=== PATIENT | female | born 1945 | race Caucasian/White ===

== ENCOUNTER 2019-12-04 12:44 | Outpatient (CLI) | payer MEDICARE, OTHER, SELFPAY ==
--- NOTE | ~2019-12-04 | XR_ITS ---
EXAMINATION: XR abdomen/kub 1V INDICATION: Dysuria TECHNIQUE: Supine views of the abdomen were obtained on 2 radiographs. COMPARISON: 05/22/2019 FINDINGS: Stones measuring 1.9 cm and 0.9 cm are seen in the left kidney. There are numerous unchange d stones in a linear configuration in the right distal ureter. No new urinary tract calculi are ident ified. A large volume of colonic stool is present. Surgical clips in the right upper quadrant are lik fernanda from prior cholecystectomy. IMPRESSION: 1. Unchanged [place] of the right distal ureter. 2. Stable left nephrolithiasis. 3. Constipation. Reviewed, dictated and finalized at location A. 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
== END 2019-12-04 12:45 | disposition home or self-care (01) ==
LOC: ANHIMG 12:52
PROVIDERS: PCP Internal Medicine; Visit Provider Urology
DX: R30.0 Dysuria (principal); K59.00 Constipation, unspecified; N20.2 Calculus of kidney with calculus of ureter
CPT/HCPCS: 74018

== ENCOUNTER 2020-02-28 12:53 | Outpatient (CLI) | payer MEDICARE, OTHER, SELFPAY ==
--- NOTE | ~2020-02-28 | CT_ITS ---
EXAMINATION: CT abdomen pelvis wo con EXAM DATE: 02/28/2020 13:56 INDICATION: Chronic urinary tract infection. Microscopic hematuria. Breast cancer. TECHNIQUE: Spiral CT of the abdomen and pelvis was performed without contrast. Axial, coronal and sag ittal images were reviewed. The dose-length product (DLP) for this examination was 720.39 mGy-cm. T he exposure was tailored according to patient size (auto mA exposure control), and iterative reconstr uction (ASIR) was used as additional dose reduction technique. Comparison is made to prior examinatio n from 10/23/2014. FINDINGS: Vague region of heterogeneous density in the inferior aspect of the bladder, nondependent p osition given supine imaging on this study. This is possible bladder mass, transitional cell cancer m easuring 2.8 cm. Could also potentially be blood clot adherent to the inferior aspect of the bladder. There is left mid calyceal stone measuring 1.6 cm. Additional 6 mm left inferior calyceal stone and 1 0 mm superior calyceal stone. No right nephrolithiasis, but there are multiple contiguous stones in t he distal aspect of the right ureter, for about 4 cm in length, unchanged compared to prior study. Th e hydronephrosis has resolved. There is severe right renal atrophy and moderate left renal atrophy. T here are bilateral renal lesions, appearance consistent with cysts and hemorrhagic cysts. Please note not possible to exclude renal cell cancer in the setting without contrast. The uterus is unremarka ble. There is right adrenal low density mass measuring 4 cm not significant changed compared to prior stud y, likely adenoma. There is 1.5 cm left adrenal lesion likely adenoma. These appear either stable or very minimally increased in size compared to prior study. There are splenic and liver granulomas. Sca ttered low-density liver lesions which are probably cysts again noted. There are cholecystectomy cli ps. There is no retroperitoneal or pelvic lymphadenopathy. There is mild scattered arterioscleroti c disease. The appendix is normal. The stomach and small bowel are unremarkable. There is moderate amount of c olonic stool. There is mild scattered colonic diverticulosis. There is no adjacent inflammatory kent ge to suggest diverticulitis. No free intraperitoneal gas. There is mild cardiomegaly. There is sm all pericardial effusion. The lung bases are unremarkable. There are no significant osseous abnorma lities identified. IMPRESSION: 1. Heterogeneous density region inferior aspect of the bladder, possible transitional cell cancer ve rsus blood clot; consider cystoscopy. 2. Line of large stones distal aspect right ureter unchanged, with resolution of previously seen rig ht hydronephrosis, severe right renal atrophy. Kidney may be nonfunctioning. 3. Left nephrolithiasis. 4. Bilateral renal lesion statistically most likely cysts and hemorrhagic cysts. 5. Bilateral adrenal lesions most likely adenomas. Reviewed, dictated and finalized at location G. IMPRESSION: 1. Heterogeneous density region inferior aspect of the bladder, possible trans itional cell cancer versus blood clot; consider cystoscopy. 2. Line of large stones distal aspect right ureter unchanged, with resolution of previously seen right hydronephrosis, severe right renal atrophy. Kidney may be nonfunctioning. 3. Left nephrolithiasis. 4. Bilateral renal lesion statistically most likely cysts and hemorrhagic cyst s. 5. Bilateral adrenal lesions most likely adenomas.
[2020-02-28 13:36] LABS: Add Urine Microscopic? YES; Appearance Urine Turbid (Clear); Bacteria Urine 1+ /hpf; Bilirubin Urine Negative (Negative); Blood Urine 2+ (Negative); Color Urine Yellow (Yellow); Glucose Urine UA Negative (Negative); Ketones Urine Negative (Negative); Leukocyte Esterase Ur 3+ LEU/UL (NEGATIVE); Nitrate Urine Positive (Negative); Protein Urine 2+ mg/dL (Negative); RBC Urine >75 /hpf (0-2); Specific Grav Ur 1.014 (1.001-1.035); Urobilinogen Urine Negative mg/dL (<2.0); WBC Clumps Urine Present /HPF; WBC Urine >75 /hpf (0-3)
== END 2020-02-28 12:54 | disposition home or self-care (01) ==
PROVIDERS: PCP Internal Medicine; Visit Provider Internal Medicine
DX: N39.0 Urinary tract infection, site not specified (principal); R31.9 Hematuria, unspecified; R93.41 Abnormal radiologic findings on diagnostic imaging of renal pelvis, ureter, or bladder; N20.1 Calculus of ureter; N20.0 Calculus of kidney; N28.9 Disorder of kidney and ureter, unspecified; E27.9 Disorder of adrenal gland, unspecified
CPT/HCPCS: 74176; 81001

== ENCOUNTER 2020-06-12 19:08 | Inpatient (IN) | payer MEDICARE, OTHER, SELFPAY ==
--- NOTE | ~2020-06-12 | US_ITS ---
EXAMINATION: US renal BI EXAM DATE: 06/13/2020 08:15 INDICATION: Acute kidney injury. TECHNIQUE: Multiple grayscale and Doppler images of the kidneys were obtained (by a technologist who performed the scan) and subsequently reviewed. Comparison is made to prior examination from 4. FINDINGS: Right kidney: There is normal contour and echogenicity. There is mild renal cortical thinning. It mary ann sures 12.3 x 5.1 x 7.9 centimeters. There are multiple cysts measuring up to 2.2 cm. Mild hydronephr osis, significant interval improvement compared to 2013. Left kidney: There is normal contour and echogenicity. It measures 10.8 x 3.7 x 5.6 centimeters. The re is a 1.3 cm kidney stone identified. There are cysts, measuring up to 4 cm. No evidence of mild re nal cortical thinning. There is no hydronephrosis. Bladder unremarkable. Bilateral ureteral jets identified. IMPRESSION: 1. Mild right hydronephrosis. 2. Left nephrolithiasis. 3. Mild bilateral renal cortical thinning. 4. Renal cysts. Reviewed, dictated and finalized at location B.
--- NOTE | ~2020-06-12 | CT_ITS ---
EXAMINATION: CT brain wo con DATE: 06/12/2020 20:01 INDICATION: Altered mental status. TECHNIQUE: Computed tomography (CT) of the head was performed without intravenous contrast. Sagittal and coronal reconstructions were performed. The mA was adjusted according to patient size. Iterative reconstruction technique was employed. The dose-length product was 681.00 mGy-cm. COMPARISON: None FINDINGS: No acute intracranial hemorrhage, acute infarction or abnormal extra axial fluid collection. There is moderate scattered white matter hypoattenuation consistent with chronic small vessel ischemic diseas e. Symmetric prominence of the sulci consistent with mild age-appropriate diffuse cerebral volume los s. Ventricles are normal and symmetric. No mass/mass effect. Intracranial calcified cerebral atherosc lerosis is noted. The orbits, paranasal sinuses and mastoid air cells are normal. IMPRESSION: 1. Age-related changes including mild diffuse volume loss and moderate scattered white matter hypoatt enuation consistent with chronic small vessel ischemic disease. Reviewed, dictated and finalized at location A. IMPRESSION: 1. Age-related changes including mild diffuse volume loss and moderate scattere d white matter hypoattenuation consistent with chronic small vessel ischemic di sease.
--- NOTE | ~2020-06-12 | XR_ITS ---
EXAMINATION: XR chest 2V DATE: 06/12/2020 20:10 INDICATION: Shortness of breath, weakness and nausea TECHNIQUE: frontal view of the chest was obtained. COMPARISON: Chest radiograph dated 01/27/[address] dated 03/09/2020 FINDINGS: Mild linear atelectasis/scarring at the lateral left lung base. No other airspace opacities, pulmonar y edema, pleural effusion or pneumothorax. Cardiomegaly. Enlargement of the central pulmonary arterie s consistent with pulmonary arterial hypertension. 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 Calcified right hilar lymph nodes consistent with old granulomatous disease. Cholecystecto my clips in the right upper quadrant. 1.4 cm renal stone. Surgical clips at the lateral right breast. IMPRESSION: 1. Minimal left basilar atelectasis. 2. Cardiomegaly. 3. 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 4. Enlargement of the central pulmonary arteries consistent with pulmonary arterial hypertension. Reviewed, dictated and finalized at location A. IMPRESSION: 1. Minimal left basilar atelectasis. 2. Cardiomegaly. 3. 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 4. Enlargement of the central pulmonary arteries consistent with pulmonary radha rial hypertension.
[2020-06-12 19:10] VITALS: BP 106/56; PULSE 70; RESP 14; TEMP 36.7; O2SAT 97
[2020-06-12 19:29] VITALS: PULSE 68
--- NOTE | 2020-06-12 19:31 | ECG_ITS ---
Measurements Intervals [place] Rate: 69 P: -15 WI: 174 QRS: -38 QRSD: 111 T: 52 QT: 405 QTc: 434 Interpretive Statements SINUS RHYTHM ATRIAL COUPLET LEFT AXIS DEVIATION INTRAVENTRICULAR CONDUCTION DELAY VOLTAGE CRITERIA FOR LVH POOR R WAVE PROGRESSION, CONSIDER ANTERIOR INFARCT MINIMAL Q WAVES- HIGH LATERAL LEADS BASELINE ARTIFACT- V6 ABNORMAL ECG Electronically Signed On 06-12-2020 20:03:28 CDT by Don Flores D.O.
--- NOTE | 2020-06-12 19:38 | ED.GENADULT ---
HPI - General Adult General Chief complaint: Weakness Stated complaint: doesnt feel good. Time Seen by Provider: 06/12/20 19:27 Source: RN notes reviewed History of Present Illness HPI narrative: Patient presents emergency department from home for weakness. Patient states she has been feeling weak for the past 10 days.. She describes as being generally fatigued but denies any specific complaints. She denies any fevers or chills chest pain abdominal pain nausea vomiting diarrhea or any other symptoms. She did note mild shortness of breath earlier today but denies any shortness of breath at this time. States she had no previous work-up for these symptoms Related Data Home Medications Medication Instructions Recorded Confirmed apixaban 5 mg tablet 5 mg PO BID 10/15/19 fesoterodine 8 mg tablet,extended 8 mg PO DAILY 10/15/19 release 24 hr letrozole 2.5 mg tablet 2.5 mg PO DAILY 10/15/19 linagliptin 5 mg tablet 5 mg PO QAM 10/15/19 loratadine 10 mg capsule 10 mg PO DAILY 10/15/19 candesartan 16 mg PO DAILY 06/12/20 ibuprofen 200 mg PO Q6H PRN 06/12/20 rosuvastatin 20 mg PO DAILY 06/12/20 Allergies Allergy/AdvReac Type Severity Reaction Status Date / Time Sulfa (Sulfonamide Allergy Itching Verified 06/12/20 19:13 Antibiotics) Review of Systems Review of Systems: Narrative: Gen.: Denies fevers or chills Eyes: Denies eye pain or visual change ENT: Denies congestion Respiratory: Reports shortness of breath earlier, none currently, no cough CV: Denies chest pain or palpitations GI: Denies abdominal pain nausea, emesis or diarrhea denies burning, urgency, frequency or hematuria Musculoskeletal: Denies back pain or muscle pain Neuro: See HPI Skin: Denies rash Except as documented, all other systems reviewed and negative PMFSH Past Medical History Medical History A-fib Benign essential hypertension BMI 36.0-36.9,adult Castlemans disease Chronic kidney disease (CKD), stage II (mild) DM type 2 (diabetes mellitus, type 2) Encounter for routine adult health examination without abnormal findings Encounter for screening mammogram for malignant neoplasm of breast Hx of breast cancer Hyperlipidemia On longterm drug therapy Overactive bladder Family History Family History (Updated 03/28/19 @ 15:07 by DOCTOR UNKNOWN) Sibling Cerebrovascular accident Family history of diabetes mellitus in first degree relative Father Family history of diabetes mellitus in first degree relative Diabetes mellitus Mother Family history of malignant neoplasm of cervix Family history of malignant neoplasm of ovary Grandparent Family history of malignant neoplasm of breast Family history of malignant neoplasm of breast in first degree relative Social History Social History Smoking status: Never smoker Second hand tobacco smoke exposure: No Alcohol intake: never Exam Narrative: Exam Narrative: APPEARANCE: No acute distress, nontoxic, resting in bed EYES: EOMI HEENT: Normocephalic, atraumatic, OMM RESPIRATORY: No respiratory distress Clear to auscultation bilaterally with no rhonchi wheezing or rales. CARDIOVASCULAR: Regular rate and rhythm without murmurs rubs or gallops. ABDOMINAL: Soft, nontender, nondistended, no rebound or guarding MUSCULOSKELETAl: Moves all extremities. No clubbing, cyanosis or edema. NEURO: Awake and alertx 3. Following commands, speech normal, no focal deficits SKIN:: Warm, dry. No rashes lesions or abrasions PSYCHIATRIC: Normal affect/mood, Course Course Emergency Course: Discussed with Dr. Maloney presentation work-up. States patient's creatinine is normally in the low twos. She has seen Dr. Schwarz for in the past Discussed with Dr. Flores presentation work-up. Agrees with admission at this time Discussed with patient and family results of workup and diagnosis. Dis
[2020-06-12 19:40] LABS: Basophils Percent Auto 0.4 % (0.2-1.2); Eosinophils Percent Auto 0.3 % (0-4.4); Hemoglobin 9.6 g/dL (12.0-15.0); Immature Granulocyte Absolute 0.05 K/mm3 (0.00-0.031); Immature Granulocyte Percent A 0.5 % (0-0.5); Lymphocytes Absolute Auto 2.09 K/mm3 (0.9-3.2); Lymphocytes Percent Auto 20.5 % (18.3-44.2); Mean Corpuscular Volume 90.6 fl (80-100); Mean Platelet Volume 11.6 fl (7.4-10.4); Monocytes Absolute Auto 0.8 K/mm3 (0.1-0.6); Monocytes Percent Auto 7.4 % (2.6-8.5); Neutrophils Absolute Auto 7.2 K/mm3 (1.3-6.7); Neutrophils Percent Auto 70.9 % (45.5-73.1); Platelet Count Result 262 k/mm3 (150-375); Red Blood Count 3.31 M/mm3 (4.2-5.4); White Blood Count 10.2 K/mm3 (4.5-10.0)
[2020-06-12] MEDS: SODIUM CHLORIDE 0.9% IV 1,000 ML 999 ML IV CONT (19:42)
[2020-06-12 19:52] LABS: Alanine Aminotransferase 10 U/L (4-35); Albumin Level 3.9 g/dL (3.5-5.1); Alkaline Phosphatase 61 U/L (38-126); Anion Gap 10 mmol/L (8-16); Aspartate Amino Transferase 17 U/L (14-36); Bilirubin,Total 0.7 mg/dL (0.2-1.3); Blood Urea Nitrogen 59 mg/dL (7-17); Calcium 10.7 mg/dL (8.4-10.2); Carbon Dioxide 16 mmol/L (22-30); Chloride 111 mmol/L (98-107); Estimated CRCL calculation 12 ml/min; Estimated Glomerular Filt Rate 9; Glucose 118 mg/dL (65-105); Potassium 4.2 mmol/L (3.4-5.0); Sodium 137 mmol/L (137-145)
[2020-06-12 21:23] LABS: Add Urine Microscopic? YES; Appearance Urine Turbid (Clear); Bacteria Urine Trace /hpf; Bilirubin Urine Negative (Negative); Blood Urine 2+ (Negative); Color Urine Yellow (Yellow); Glucose Urine UA Negative (Negative); Ketones Urine Negative (Negative); Leukocyte Esterase Ur 3+ LEU/UL (Negative); Nitrate Urine Negative (Negative); Protein Urine 2+ mg/dL (Negative); RBC Urine >75 /hpf (0-2); Specific Grav Ur 1.015 (1.001-1.035); Squamous Epithelial Cell Urine Many /hpf (Few); Urobilinogen Urine Negative mg/dL (<2.0); WBC Clumps Urine Present /HPF; WBC Urine >75 /hpf
--- NOTE | 2020-06-12 23:51 | PC.NURSE ---
This patient, Maria R Barrientos, was admitted to 2 Medical Room 250-01. Patient/family oriented to hospital policies and general routines including ID bracelet, bed and alarms, visiting hours, pain management, procedures, bathroom and other care routines, personal items, smoking policy, room service/diet, and visiting hours. Valuables list has been completed. Information on how to activate the Rapid Response Team has been discussed. Patient/Family are encouraged to report perceived risks to care and to ask questions if they do not understand what they are told or what they should do.
[2020-06-13] VITALS: BP 124/61; PULSE 64; RESP 12; TEMP 36.9; O2SAT 98
--- NOTE | 2020-06-13 | ECHO_ITS ---
Patient Info Name: Maria R Barrientos Age: 74 years : 1945 Gender: Female Ht: 67 in Wt: 220 lbs BSA: 2.21 m2 HR: 63 bpm BP: 122 / 56 mmHg Technical Quality: Good Exam Date: 06/13/2020 1:46 PM Exam Location: [facility] Pul[facility] Patient Status: Inpatient Admit Date: 06/13/2020 Staff Ordering Physician: Aruna Mar PA-C Clinical Advisor: Grace Calero RDCS Attending Provider: Aruna Mar PA-C Referring Physician: Isabela CARSON; Exam Type: CA echo doppler color flow Study Info Indications R01.1 - Cardiac murmur, unspecified Complete two-dimensional, color flow and Doppler transthoracic echocardiogram is performed. Summary 1. Left ventricular chamber dimension is normal. 2. Left ventricular systolic function is normal, estimated at 65-70%. 3. Ventricular septum is sigmoid shaped. Mild resting LVOT obstruction wit peak gradient 12 mmH and mean gradient 6 mmHg. 4. The left ventricular diastolic function is grade I diastolic dysfunction. 5. E/e' 9 is minimally elevated. 6. Left atrial chamber dimension is moderately enlarged. 7. There is moderate aortic valve sclerosis. 8. There is trace tricuspid valve regurgitation. 9. No pulmonary hypertension, estimated pulmonary arterial systolic pressure is 32 mmHg. Left Ventricle Ventricular septum is sigmoid shaped. Mild resting LVOT obstruction wit peak gradient 12 mmH and mean gradient 6 mmHg. E/e' 9 is minimally elevated. Left ventricular chamber dimension is normal. Left ventricular systolic function is normal, estimated at 65-70%. The left ventricular diastolic function is grade I diastolic dysfunction. Right Ventricle Right ventricular chamber dimension is normal. Right ventricular systolic function is normal. Left Atria Left atrial chamber dimension is moderately enlarged. Right Atria Right atrial chamber dimension is normal. Aortic Valve The aortic valve is trileaflet. There is moderate aortic valve sclerosis. There is no aortic valve stenosis. There is no aortic valve regurgitation. Pulmonic Valve There is no pulmonic regurgitation. Mitral Valve There is no mitral valve stenosis. There is no mitral valve regurgitation. Tricuspid Valve There is trace tricuspid valve regurgitation. No pulmonary hypertension, estimated pulmonary arterial systolic pressure is 32 mmHg. Pericardium/Pleural There is no pericardial effusion. Inferior Vena Cava Normal inferior vena cava with >50% collapse upon inspiration consistent with normal right atrial pressure, 5 mmHg. Aorta The aortic root size at the sinus of Valsalva is normal. Left Ventricular Outflow Tract Name Value Normal LVOT 2D LVOT Diameter 2.0 cm LVOT Doppler LVOT Peak Gradient 13 mmHg LVOT Mean Gradient 7 mmHg LVOT VTI 34 cm LVOT VTI/AV VTI Ratio 1.1 LVOT Stroke Volume 102 ml LVOT CO 6.9 l/min LVOT CI 3.1 l/min/m2 Pulmonic Valve
[2020-06-13 00:16] VITALS: BMI 34.5
[2020-06-13] MEDS: SODIUM CHLORIDE 0.9% IV 1,000 ML 80 ML IV CONT (00:29)
[2020-06-13 01:35] LABS: Creatinine Urine 88.1 mg/dL
[2020-06-13 01:40] LABS: Sodium Urine Random 62 meq/L
[2020-06-13 01:45] LABS: Total Protein Urine Random 362 mg/dL
[2020-06-13 03:07] LABS: Glucose Point of Care 114 (65-105)
[2020-06-13 05:10] VITALS: BP 122/56; PULSE 63; RESP 12; TEMP 36.9; O2SAT 97
[2020-06-13 05:12] LABS: Basophils Percent Auto 0.2 % (0.2-1.2); Eosinophils Percent Auto 0.4 % (0-4.4); Hemoglobin 8.9 g/dL (12.0-15.0); Immature Granulocyte Absolute 0.06 K/mm3 (0.00-0.031); Immature Granulocyte Percent A 0.6 % (0-0.5); Lymphocytes Absolute Auto 2.35 K/mm3 (0.9-3.2); Lymphocytes Percent Auto 23.3 % (18.3-44.2); Mean Corpuscular HGB Conc 31.8 g/dl (32-36); Mean Corpuscular Hemoglobin 29.2 pg (26-34); Mean Corpuscular Volume 91.8 fl (80-100); Mean Platelet Volume 11.6 fl (7.4-10.4); Monocytes Absolute Auto 0.7 K/mm3 (0.1-0.6); Neutrophils Absolute Auto 6.9 K/mm3 (1.3-6.7); Neutrophils Percent Auto 68.5 % (45.5-73.1); Platelet Count Result 234 k/mm3 (150-375); Red Blood Count 3.05 M/mm3 (4.2-5.4); White Blood Count 10.1 K/mm3 (4.5-10.0)
[2020-06-13 05:28] LABS: Anion Gap 8 mmol/L (8-16); Blood Urea Nitrogen 55 mg/dL (7-17); Calcium 10.2 mg/dL (8.4-10.2); Carbon Dioxide 16 mmol/L (22-30); Chloride 113 mmol/L (98-107); Estimated CRCL calculation 13 ml/min; Estimated Glomerular Filt Rate 10; Glucose 108 mg/dL (65-105); Potassium 3.9 mmol/L (3.4-5.0); Sodium 137 mmol/L (137-145)
--- NOTE | 2020-06-13 06:25 | PM.IMHP ---
H&P: HPI History of Present Illness Date/Time: 06/13/20 06:25 Chief complaint: Not feeling right Narrative: Maria R Barrientos is a 74 year old female with a past medical history of incomplete bladder emptying, frequent urinary tract infections, and chronic kidney disease who presented to the ER after not feeling right for about a week. The patient reported that she just felt sick. She had had some decreased appetite and felt fatigued. She denies any shortness of breath or cough. She does have chronic urinary frequency but denies any increased urgency. She has frequent symptoms of incomplete bladder emptying. She has not noticed any dysuria. She has noticed that her urine has appeared a little bit darker when she wipes after voiding. She denies any foul smell to her urine. She has not noticed any hematuria but has had microscopic hematuria on labs in the past. She thinks that she has been drinking the same amount of fluids. She is uncertain if she is having any significant change in the amount of her urine output. Review of Systems Review of Systems: Narrative: 12 systems were reviewed with pertinent positives and negatives per HPI. Except as documented in the HPI, all other systems were reviewed and are negative. [facility] Past Medical History Medical History (Updated 06/13/20 @ 08:13 by Eduarda Flores DO) A-fib Benign essential hypertension BMI 36.0-36.9,adult Cancer of right breast status post radiation and chemotherapy Castlemans disease Chronic kidney disease, stage 3 DM type 2 (diabetes mellitus, type 2) Encounter for screening mammogram for malignant neoplasm of breast Hyperlipidemia Kidney stones of the left kidney with multiple lithotripsies Overactive bladder Thyroid nodule Surgical History Surgical History (Updated 06/13/20 @ 08:03 by Eduarda Flores DO) Status post cataract extraction and insertion of intraocular lens of right eye Status post right breast lumpectomy Family History Family History Sibling Cerebrovascular accident Diabetes mellitus Father Diabetes mellitus Mother Cervical cancer Social History Social History (Updated 06/13/20 @ 08:07 by Eduarda Flores DO) Social History: the patient lives with her 45-year-old daughter. She is . She is a lifelong nonsmoker and does not drink alcohol or use illicit substances. She is retired from the [employer]. Primary care physician: Dr. Carl Maloney code status: Full code Smoking status: Never smoker Second hand tobacco smoke exposure: No Alcohol intake: never Substance use: never Substance use type: does not use Gender identity (if verbalized by the patient): Female Spiritual care concerns: No Meds Home Medications and Allergies Home Medications Medication Instructions Recorded Confirmed Type apixaban 5 mg tablet 5 mg PO BID 10/15/19 06/13/20 History fesoterodine 8 mg tablet,extended 8 mg PO DAILY 10/15/19 06/13/20 History release 24 hr letrozole 2.5 mg tablet 2.5 mg PO DAILY 10/15/19 06/13/20 History linagliptin 5 mg tablet 5 mg PO QAM 10/15/19 06/13/20 History loratadine 10 mg capsule 10 mg PO DAILY 10/15/19 06/13/20 History glimepiride 2 mg tablet 2 mg PO QAM #90 tablet 02/20/20 06/13/20 Rx diltiazem HCl 420 mg capsule,24 420 mg PO DAILY #90 cap 04/03/20 06/13/20 Rx hr,extended release hydralazine 100 mg tablet 100 mg PO TID #270 tablet 04/08/20 06/13/20 Rx candesartan 16 mg PO DAILY 06/12/20 06/13/20 History ibuprofen 200 mg PO Q6H PRN 06/12/20 06/13/20 History rosuvastatin 20 mg PO DAILY 06/12/20 06/13/20 History trimethoprim 100 mg PO DAILY 06/13/20 06/13/20 History Allergies Allergy/AdvReac Type Severity Reaction Status Date / Time Sulfa (Sulfonamide Allergy Itching Verified 06/12/20 19:13 Antibiotics) Vital Signs Vital Signs - 24 hr 06/12/20 19:10 06/12/20 19:29 06/13/20 00:0
[2020-06-13 08:50] LABS: Glucose Point of Care 101 (65-105)
[2020-06-13] MEDS: TRIMETHOPRIM 100 MG TABLET PO (09:12)
[2020-06-13] MEDS: GLIMEPIRIDE 2 MG TABLET PO (09:12)
[2020-06-13] MEDS: APIXABAN 2.5 MG TABLET PO ×2 (09:12→20:56)
[2020-06-13] MEDS: LORATADINE 10 MG TABLET PO (09:12)
[2020-06-13] MEDS: ROSUVASTATIN 10 MG TABLET 20 MG PO (09:13)
[2020-06-13] MEDS: LETROZOLE (*CHEMO) 2.5 MG TABLET PO (09:13)
[2020-06-13] MEDS: hydrALAZINE HCL 50 MG TABLET 100 MG PO ×3 (09:13→20:56)
--- NOTE | 2020-06-13 09:35 | PC.NURSE ---
Notified patient our pharmacy does not carry her home medications Toviaz and Tradjenta. Per patient her daughter should be able to bring the medication from home to hospital for use. Will clarify orders with PA and coordinate home medications with patient and daughter.
[2020-06-13] MEDS: LACTATED RINGERS 1,000 ML 80 ML IV CONT ×2 (10:13→20:56)
--- NOTE | 2020-06-13 10:58 | PM.IMPN ---
Progress Note: A&P Assessment and Plan (1) Acute on chronic renal failure: Code(s): N17.9 - Acute kidney failure, unspecified; N18.9 - Chronic kidney disease, unspecified Status: Acute Assessment and Plan: -----IV hydration so far but still 4.4. UA suspicious for UTI and the patient also appeared to be dehydrated on admission. Nephrology has been consulted. She does have chronic kidney disease. Ultrasound of the kidney shows a mild right hydronephrosis but no obstruction. Await for Nephrology's additional recommendations. Monitor for signs of fluid overload (2) Acute UTI: Code(s): N39.0 - Urinary tract infection, site not specified Status: Acute Assessment and Plan: -----UA suspicious for UTI. Continue ceftriaxone and adjust according to culture and sensitivities (3) Chronic anticoagulation: Code(s): Z79.01 - FDC (current) use of anticoagulants Status: Acute Assessment and Plan: -----continue Eliquis 2.5 mg b.i.d. due to her renal dysfunction. 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 Will stop oral glimepiride due to kidney dysfunction and decreased diet. Last A1c 8.5 back in January (5) Heart murmur: Code(s): R01.1 - Cardiac murmur, unspecified Status: Acute Assessment and Plan: -----patient has significant heart murmur on exam. This was noted on her PCPs documentation earlier in the year. I cannot find any echo other than 1 in 2016 which did show some mild to moderate disease at that point. I have spoken with her primary care physician and we are going to obtain echo while she is here. (6) Aortic arch aneurysm: Code(s): I71.2 - Thoracic aortic aneurysm, without rupture Status: Acute Assessment and Plan: -----seen on chest x-ray. I spoke with Dr. Maloney about it who will monitor her. Will watch her blood pressure closely. Time Spent With Patient Time with patient: 25 - 35 minutes Subjective Date/time seen: 06/13/20 10:58 Interval history: Pt is a 74-year-old female here for UTI/RICKIE who was seen today and states she is feeling much better. She is urinating more often but thinks it is from the IV fluids. She denies dysuria, shortness of breath, fevers, chills, nausea, vomiting, cough or leg swelling. She says she has chronic kidney disease and sees Dr. Schwarz. She also mentions that she has never been told she has a murmur although it is documented by her primary care doctor. Review of Systems Review of Systems: All systems reviewed & are unremarkable except as noted in HPI and below Exam Narrative: Exam Narrative: General: Well developed well nourished patient resting comfortably in bed in NAD HEENT: normocephalic Neck: supple Neuro: Alert and oriented x4 CV: Irregularly irregular with a 3/6 systolic murmur heard best at the apex but also heard in all areas Resp:CTA Abd: Soft, non distended. No pain to palpation. Positive bowel sounds Extremities: No swelling, erythema, or pain to palpation. Objective Data Vital Signs Vital Signs: Vital Signs - 24 hr 06/12/20 19:10 06/12/20 19:29 06/13/20 00:00 Temperature 98.1 F 98.4 F Pulse Rate 70 68 64 Respiratory Rate 14 12 Blood Pressure 106/56 L 124/61 Pulse Oximetry 97 98 06/13/20 05:10 Temperature 98.4 F Pulse Rate 63 Respiratory Rate 12 Blood Pressure 122/56 L Pulse Oximetry 97 Intake/Output Intake/Output: Intake & Output 06/10/20 06/11/20 06/12/20 06/13/20 23:59 23:59 23:59 23:59 Intake Total 1050 758 Outp
[2020-06-13 12:57] LABS: Glucose Point of Care 134 (65-105)
[2020-06-13 14:00] VITALS: BP 113/49; PULSE 69; RESP 18; TEMP 36.5; O2SAT 95
--- NOTE | 2020-06-13 17:18 | PM.CNNEP ---
Assessment and Plan Assessment and plan (1) RICKIE (acute kidney injury): Code(s): N17.9 - Acute kidney failure, unspecified Status: Acute (2) Chronic kidney disease, stage IV (severe): Code(s): N18.4 - Chronic kidney disease, stage 4 (severe) Status: Chronic (3) Acute UTI: Code(s): N39.0 - Urinary tract infection, site not specified Status: Acute (4) Benign essential hypertension: Code(s): I10 - Essential (primary) hypertension Status: Chronic (5) Heart murmur: Code(s): R01.1 - Cardiac murmur, unspecified Status: Acute (6) DM type 2 (diabetes mellitus, type 2): Qualifiers: Diabetes mellitus complication status: without complication 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 Additional Plan Maria R has suffered an acute insult on top of her baseline kidney disease. The exact etiology of what caused this insult is not entirely clear. She states that she thinks she drinks enough water but it is possible that she may have a component of volume depletion playing a role. She was treated with antibiotics and I suppose there is a possibility she could have had some type of acute interstitial nephritis or reaction to the antibiotics but I am not entirely clear what antibiotics she was given. The fact that she had a urinary tract infection in her bladder that required antibiotics could also be potentially responsible for this rise in her creatinine as well as the fact that it would seem that these antibiotics did not fully treat with ever infection she had based on her admission urinalysis. For further evaluation of her decline in her kidney function, I have ordered renal electrolytes, urine eosinophils and a renal ultrasound which the results of which do not show any significant pathology although she did have some mild hydronephrosis noted which is actually an improvement in comparison to her previous imaging. She is empirically on IV ceftriaxone for the suspected urinary tract infection which seems reasonable and I would continue gentle IV fluid hydration within limits of her respiratory status to see if her kidney function improves back to baseline. It should be noted on admission her blood pressure was running little bit lower than what it normally does so perhaps there is a component of relative hypotension playing a role and she was also on an ARB which may have also potentiated /worsened her creatinine as well. I will continue follow patient with you while she remains hospitalized and make further recommendations during her hospital course. Thank you for allowing me to participate in the care this patient. History of Present Illness Reason for Consult Consult date: 06/13/20 Reason for consult: acute renal failure (on chronic kidney disease ) Chief Complaint Chief complaint: Not feeling right History of Present Illness Narrative: The patient is a 74 year old female with a past medical history as outlined below who presented to the ER after not feeling right for about a week. It is hard for to specify what exactly she mean and states that she just felt sick. She reports some decreased appetite and felt fatigued. She does have chronic urinary frequency but denies any increased urgency. She has frequent symptoms of incomplete bladder emptying. She reports no hematuria, dysuria, abdominal pain, nausea, or vomiting. She has noticed that her urine has appeared a little bit darker when she wipes after voiding. She denies any foul smell to her urine. No reported fever or chills either. Given the persistence of just not feeling well, she came to the ER for further evaluation. Workup and evaluation emergency room demonstrated th
[2020-06-13] MEDS: SODIUM BICARBONATE TAB 650 MG TABLET PO (17:28)
[2020-06-13 18:13] LABS: Glucose Point of Care 135 (65-105)
[2020-06-13 20:00] VITALS: BP 122/59; PULSE 63; RESP 20; TEMP 37.2; O2SAT 95
[2020-06-13 21:11] LABS: Glucose Point of Care 111 (65-105)
[2020-06-14] VITALS: BP 122/56; PULSE 62; RESP 20; TEMP 36.9; O2SAT 95
[2020-06-14 04:00] VITALS: BP 146/58; PULSE 72; RESP 22; TEMP 36.4; O2SAT 97
[2020-06-14] MEDS: hydrALAZINE HCL 50 MG TABLET 100 MG PO ×3 (05:11→20:33)
[2020-06-14] MEDS: ONDANSETRON INJ 4 MG/2 ML VIAL IV PUSH ×2 (05:12→20:33)
[2020-06-14 05:28] LABS: Hematocrit 25.9 % (37.0-47.0); Mean Corpuscular HGB Conc 30.9 g/dl (32-36); Mean Corpuscular Hemoglobin 28.7 pg (26-34); Mean Corpuscular Volume 92.8 fl (80-100); Platelet Count Result 218 k/mm3 (150-375); Red Blood Count 2.79 M/mm3 (4.2-5.4); Red Cell Distribution Width 14.1 % (11.5-14.5); White Blood Count 7.3 K/mm3 (4.5-10.0)
[2020-06-14 05:44] LABS: Albumin Level 3.3 g/dL (3.5-5.1); Anion Gap 6 mmol/L (8-16); Blood Urea Nitrogen 48 mg/dL (7-17); Carbon Dioxide 19 mmol/L (22-30); Chloride 114 mmol/L (98-107); Estimated CRCL calculation 14 ml/min; Estimated Glomerular Filt Rate 11; Glucose 115 mg/dL (65-105); Phosphorus 3.8 mg/dL (2.5-4.5); Potassium 4.2 mmol/L (3.4-5.0); Sodium 139 mmol/L (137-145)
[2020-06-14] MEDS: APIXABAN 2.5 MG TABLET PO ×2 (08:28→20:33)
[2020-06-14] MEDS: LORATADINE 10 MG TABLET PO (08:29)
[2020-06-14] MEDS: ROSUVASTATIN 10 MG TABLET 20 MG PO (08:29)
[2020-06-14] MEDS: LETROZOLE (*CHEMO) 2.5 MG TABLET PO (08:31)
[2020-06-14] MEDS: TRIMETHOPRIM 100 MG TABLET PO (08:31)
[2020-06-14] MEDS: SODIUM BICARBONATE TAB 650 MG TABLET PO ×2 (08:31→17:04)
--- NOTE | 2020-06-14 09:22 | PM.IMPN ---
Progress Note: A&P Assessment and Plan (1) Acute on chronic renal failure: Code(s): N17.9 - Acute kidney failure, unspecified; N18.9 - Chronic kidney disease, unspecified Status: Acute Assessment and Plan: -----improving slowly now 4.0. UA is only growing [id number] Serratia Marcescens but will continue abx. Nephrology has been consulted. She does have chronic kidney disease. 2+ protein in her urine. Ultrasound of the kidney shows a mild right hydronephrosis but no obstruction. Await for Nephrology's additional recommendations. Monitor for signs of fluid overload (2) Acute UTI: Code(s): N39.0 - Urinary tract infection, site not specified Status: Acute Assessment and Plan: -----UA growing 10,000-50,000 Serratia marcescens. Because of her hydronephrosis and RICKIE, continue ceftriaxone and adjust according to the sensitivities (3) Chronic anticoagulation: Code(s): Z79.01 - senior care (current) use of anticoagulants Status: Acute Assessment and Plan: -----continue Eliquis 2.5 mg b.i.d. due to her renal dysfunction. 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 Will stop oral glimepiride due to kidney dysfunction and decreased diet. Last A1c 8.5 back in January (5) Heart murmur: Code(s): R01.1 - Cardiac murmur, unspecified Status: Acute Assessment and Plan: -----patient has significant heart murmur on exam but echo does not show any significant abnormalities. (6) Aortic arch aneurysm: Code(s): I71.2 - Thoracic aortic aneurysm, without rupture Status: Acute Assessment and Plan: -----seen on chest x-ray and I discussed this with the patient. I spoke with Dr. Maloney about it who will monitor her. Will watch her blood pressure closely. Subjective Date/time seen: 06/14/20 09:22 Interval history: Pt is a 74-year-old female here for UTI/RICKIE who was seen today. Patient states she had nausea last night but is now feeling better. She does not have an appetite this morning and did not eat breakfast. She has not had a bowel movement since she has been here. She denies dysuria, shortness of breath, fevers, chills, nausea, vomiting, cough or leg swelling. We discussed her aneurysm and the appropriate follow-up Exam Narrative: Exam Narrative: General: Well developed well nourished patient resting comfortably in bed in NAD HEENT: normocephalic Neck: supple Neuro: Alert and oriented x4 CV: Irregularly irregular with a 3/6 systolic murmur heard best at the apex but also heard in all areas Resp:CTA Abd: Soft, non distended. No pain to palpation. Positive bowel sounds Extremities: No swelling, erythema, or pain to palpation. Objective Data Vital Signs Vital Signs: Vital Signs - 24 hr 06/13/20 14:00 06/13/20 20:00 06/14/20 00:00 Temperature 97.7 F 99 F 98.4 F Pulse Rate 69 63 62 Respiratory Rate 18 20 20 Blood Pressure 113/49 L 122/59 L 122/56 L Pulse Oximetry 95 95 95 06/14/20 04:00 Temperature 97.6 F Pulse Rate 72 Respiratory Rate 22 H Blood Pressure 146/58 H Pulse Oximetry 97 Intake/Output Intake/Output: Intake & Output 06/11/20 06/12/20 06/13/20 06/14/20 23:59 23:59 23:59 23:59 Intake Total 1050 2878 Output Total 550 400 Balance 1050 2328 -400 Meds/Results Medications: Active Medications Generic Name Dose Route Start Last Admin Trade Name Freq PRN Reason Stop Dose Admin Apixaban 2.5 mg 06/13/20 09:00 06/14/20 08:28 Eliquis PO 2.5 mg Q12HR BIANKA Administration Dextrose
[2020-06-14 09:27] LABS: Glucose Point of Care 128 (65-105)
[2020-06-14] MEDS: polyethylene glycoL 3350 17 GM POWD.PACK PO (10:07)
--- NOTE | 2020-06-14 11:26 | P.PNNP_ITS ---
Progress Note: A&P Assessment and Plan (1) RICKIE (acute kidney injury): Code(s): N17.9 - Acute kidney failure, unspecified Status: Acute Assessment and Plan: * etiology? * due to UTI/infection versus antibiotics verus combo of both versus something else? * some improvement since admission * making urine * no critical electrolytes * renal ultrasound reviewed - mild hydro noted but unclear if acute given improvement in renal function with current therapy * continue supportive therapy for now (2) Chronic kidney disease, stage IV (severe): Code(s): N18.4 - Chronic kidney disease, stage 4 (severe) Status: Chronic Assessment and Plan: * baseline creatinine ~ 1.8 - 2.3mg/dl in the last few years * due to HTN, DM, kidney stones + bladder issues, and age (3) Acute UTI: Code(s): N39.0 - Urinary tract infection, site not specified Status: Acute Assessment and Plan: * urine culture noted * on antibiotics (4) Benign essential hypertension: Code(s): I10 - Essential (primary) hypertension Status: Chronic Assessment and Plan: * reasonable control at this time * would avoid overcontrol in the setting of #1 * follow hemodynamics (5) Heart murmur: Code(s): R01.1 - Cardiac murmur, unspecified Status: Acute Assessment and Plan: * Echo for further evaluation * follow-up on results (6) DM type 2 (diabetes mellitus, type 2): Qualifiers: Diabetes mellitus complication status: without complication 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 Subjective Date/time seen: 06/14/20 11:26 States she just feels blah -- howevere, in comparison to admission, she admits she feels a bit better; daughter at bedside and we discussed the situation. Exam Narrative: Exam Narrative: General: WD/WN female in NAD Heart: normal S1 and S2; no rub Lungs: clear to auscultation Abdomen: soft, nontender, nondistended, positive bowel sounds Extremities: no cyanosis or clubbing; no edema Skin: warm and dry Objective Data Vital Signs Vital Signs: Vital Signs Temp Pulse Resp BP Pulse Ox 06/14/20 04:00 36.4 C 72 22 H 146/58 H 97 06/14/20 00:00 36.9 C 62 20 122/56 L 95 06/13/20 20:00 37.2 C 63 20 122/59 L 95 06/13/20 14:00 36.5 C 69 18 113/49 L 95 Intake/Output Intake/Output: Intake & Output 06/11/20 06/12/20 06/13/20 06/14/20 23:59 23:59 23:59 23:59 Intake Total 1050 2878 Output Total 550 400 Balance 1050 2328 -400 Meds/Results Medications: Active Medications Generic Name Dose Route Start Last Admin Trade Name Freq PRN Reason Stop Dose Admin Apixaban 2.5 mg 06/13/20 09:00 06/14/20 08:28 Eliquis PO 2.5 mg Q12HR BIANKA Administration Dextrose 12.5 gm 06/13/20 08:00 Dextrose 50% Syringe IV PUSH PRN PRN Hypoglycemia Protocol Diltiazem HCl 300 mg 06/13/20 09:00 06/14/20 08:29 Cardizem C
--- NOTE | 2020-06-14 11:26 | PM.PNNEP ---
Progress Note: A&P Assessment and Plan (1) RICKIE (acute kidney injury): Code(s): N17.9 - Acute kidney failure, unspecified Status: Acute Assessment and Plan: etiology? due to UTI/infection versus antibiotics verus combo of both versus something else? some improvement since admission making urine no critical electrolytes renal ultrasound reviewed - mild hydro noted but unclear if acute given improvement in renal function with current therapy continue supportive therapy for now (2) Chronic kidney disease, stage IV (severe): Code(s): N18.4 - Chronic kidney disease, stage 4 (severe) Status: Chronic Assessment and Plan: baseline creatinine ~ 1.8 - 2.3mg/dl in the last few years due to HTN, DM, kidney stones + bladder issues, and age (3) Acute UTI: Code(s): N39.0 - Urinary tract infection, site not specified Status: Acute Assessment and Plan: urine culture noted on antibiotics (4) Benign essential hypertension: Code(s): I10 - Essential (primary) hypertension Status: Chronic Assessment and Plan: reasonable control at this time would avoid overcontrol in the setting of #1 follow hemodynamics (5) Heart murmur: Code(s): R01.1 - Cardiac murmur, unspecified Status: Acute Assessment and Plan: Echo for further evaluation follow-up on results (6) DM type 2 (diabetes mellitus, type 2): Qualifiers: Diabetes mellitus complication status: without complication Diabetes mellitus fdc insulin use: without intermodal 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 Subjective Date/time seen: 06/14/20 11:26 States she just feels blah -- howevere, in comparison to admission, she admits she feels a bit better; daughter at bedside and we discussed the situation. Exam Narrative: Exam Narrative: General: WD/WN female in NAD Heart: normal S1 and S2; no rub Lungs: clear to auscultation Abdomen: soft, nontender, nondistended, positive bowel sounds Extremities: no cyanosis or clubbing; no edema Skin: warm and dry Objective Data Vital Signs Vital Signs: Vital Signs Temp Pulse Resp BP Pulse Ox 08/22/20 04:00 36.4 C 72 22 H 146/58 H 97 06/14/20 00:00 36.9 C 62 20 122/56 L 95 06/13/20 20:00 37.2 C 63 20 122/59 L 95 06/13/20 14:00 36.5 C 69 18 113/49 L 95 Intake/Output Intake/Output: Intake & Output 06/11/20 06/12/20 06/13/20 06/14/20 23:59 23:59 23:59 23:59 Intake Total 1050 2878 Output Total 550 400 Balance 1050 2328 -400 Meds/Results Medications: Active Medications Generic Name Dose Route Start Last Admin Trade Name Freq PRN Reason Stop Dose Admin Apixaban 2.5 mg 06/13/20 09:00 06/14/20 08:28 Eliquis PO 2.5 mg Q12HR BIANKA Administration Dextrose 12.5 gm 06/13/20 08:00 Dextrose 50% Syringe IV PUSH PRN PRN Hypoglycemia Protocol Diltiazem HCl 300 mg 06/13/20 09:00 06/14/20 08:29 Cardizem Cd PO 07/13/20 09:01 300 mg DAILY BIANKA Administration Diltiazem HCl 120 mg 06/13/20 09:00 06/14/20 08:28 Cardizem Cd PO 120 mg DAILY BIANKA Administration Glucagon 1 mg 06/13/20 08:00 Glucagon For Inj IM PRN PRN Hypoglycemia Protocol Glucose 15 gm 06/13/20 08:00 Glutose 15 PO PRN PRN Hypoglycemia Protocol Hydralazine HCl 100 mg 06/13/20 05:00 06/14/20 05:11 Apresoline Tablet PO 100 mg 0500,1300,2100 BIANKA Administration Ceftriaxone Sodium/Dextrose 1 gm in 50 mls @ 100 mls/hr 06/13/20 21:00 06/13/20 21:26 Rocephin 1 Gm/D5w 50 Ml IVPB Infused Q24H BIANKA Infusion Dextrose 1,000 mls @ 100 mls/hr 06/13/20 08:00 Dextrose 5% 1,000 Ml IVPB P
[2020-06-14 12:30] VITALS: BP 122/56; PULSE 63
[2020-06-14] MEDS: LACTATED RINGERS 1,000 ML 80 ML IV CONT (12:49)
[2020-06-14 12:52] LABS: Glucose Point of Care 118 (65-105)
[2020-06-14 14:00] VITALS: BP 124/58; PULSE 63; RESP 20; TEMP 36.4; O2SAT 98
[2020-06-14 16:49] LABS: Glucose Point of Care 138 (65-105)
[2020-06-14 22:00] VITALS: BP 133/81; PULSE 68; RESP 22; TEMP 36.6; O2SAT 96
[2020-06-14 22:13] LABS: Glucose Point of Care 157 (65-105)
[2020-06-15 04:00] VITALS: BP 150/63; PULSE 72; RESP 22; TEMP 36.4; O2SAT 95
[2020-06-15] MEDS: LACTATED RINGERS 1,000 ML 80 ML IV CONT ×2 (05:08→14:57)
[2020-06-15] MEDS: hydrALAZINE HCL 50 MG TABLET 100 MG PO ×3 (05:08→21:52)
[2020-06-15 06:03] LABS: Hematocrit 27.1 % (37.0-47.0); Hemoglobin 8.4 g/dL (12.0-15.0)
[2020-06-15 06:15] LABS: Albumin Level 3.5 g/dL (3.5-5.1); Anion Gap 6 mmol/L (8-16); Blood Urea Nitrogen 38 mg/dL (7-17); Calcium 10.2 mg/dL (8.4-10.2); Carbon Dioxide 19 mmol/L (22-30); Chloride 114 mmol/L (98-107); Estimated CRCL calculation 18 ml/min; Estimated Glomerular Filt Rate 14; Glucose 108 mg/dL (65-105); Phosphorus 3.8 mg/dL (2.5-4.5); Sodium 139 mmol/L (137-145)
[2020-06-15] MEDS: ONDANSETRON INJ 4 MG/2 ML VIAL IV PUSH (07:25)
[2020-06-15 08:01] LABS: Glucose Point of Care 103 (65-105)
[2020-06-15] MEDS: SODIUM BICARBONATE TAB 650 MG TABLET PO ×2 (08:17→16:30)
[2020-06-15] MEDS: ROSUVASTATIN 10 MG TABLET 20 MG PO (08:17)
[2020-06-15] MEDS: LETROZOLE (*CHEMO) 2.5 MG TABLET PO (08:18)
[2020-06-15] MEDS: LORATADINE 10 MG TABLET PO (08:18)
[2020-06-15] MEDS: APIXABAN 2.5 MG TABLET PO ×2 (08:18→21:51)
[2020-06-15] MEDS: TRIMETHOPRIM 100 MG TABLET PO (08:18)
[2020-06-15 11:59] LABS: Glucose Point of Care 118 (65-105)
[2020-06-15 12:00] VITALS: BP 129/50; PULSE 65
--- NOTE | 2020-06-15 12:00 | P.PNNP_ITS ---
Progress Note: A&P Assessment and Plan (1) RICKIE (acute kidney injury): Code(s): N17.9 - Acute kidney failure, unspecified Status: Acute Assessment and Plan: * etiology? * due to UTI/infection versus antibiotics verus combo of both versus something else? * improvement noted since admission * making reasonable urine * no critical electrolytes * renal ultrasound reviewed - mild hydro noted but unclear if acute given improvement in renal function with current therapy * continue supportive therapy for now (2) Chronic kidney disease, stage IV (severe): Code(s): N18.4 - Chronic kidney disease, stage 4 (severe) Status: Chronic Assessment and Plan: * baseline creatinine ~ 1.8 - 2.3mg/dl in the last few years * due to HTN, DM, kidney stones + bladder issues, and age (3) Acute UTI: Code(s): N39.0 - Urinary tract infection, site not specified Status: Acute Assessment and Plan: * urine culture noted * on antibiotics (4) Benign essential hypertension: Code(s): I10 - Essential (primary) hypertension Status: Chronic Assessment and Plan: * reasonable control at this time * would avoid overcontrol in the setting of #1 * follow hemodynamics (5) Heart murmur: Code(s): R01.1 - Cardiac murmur, unspecified Status: Acute Assessment and Plan: * Echo for further evaluation * follow-up on results (6) DM type 2 (diabetes mellitus, type 2): Qualifiers: Diabetes mellitus complication status: without complication Diabetes mellitus fci insulin use: without head teacher use Qualified Code(s): E11.9 - Type 2 diabetes mellitus without complications Code(s): E11.9 - Type 2 diabetes mellitus without complications Status: Chronic Assessment and Plan: * follow accuchecks * on SSI Will continue to follow. Subjective Date/time seen: 06/15/20 12:00 Overall, seems to be doing better in general; some mild nausea but doing better s/p antiemetics; better urine output noted with declining trend in kidney function; no acute issues/events overnight or earlier this AM. Exam Narrative: Exam Narrative: General: WD/WN female in NAD Heart: normal S1 and S2; no rub Lungs: clear to auscultation Abdomen: soft, nontender, nondistended, positive bowel sounds Extremities: no cyanosis or clubbing; no edema Skin: warm and dry Objective Data Vital Signs Vital Signs: Vital Signs Temp Pulse Resp BP Pulse Ox 06/15/20 04:00 36.4 C 72 22 H 150/63 H 95 06/14/20 22:00 36.6 C 68 22 H 133/81 96 06/14/20 14:00 36.4 C 63 20 124/58 L 98 06/14/20 12:30 63 122/56 L Intake/Output Intake/Output: Intake & Output 06/12/20 06/13/20 06/14/20 06/15/20 23:59 23:59 23:59 23:59 Intake Total 1050 2878 2410 150 Output Total 550 1200 600 Balance 1050 2328 1210 -450 Meds/Results Medications: Active Medications Generic Name Dose Route Start Last Admin Trade Name Freq PRN Reason Stop Dose Admin Apixaban 2.5 mg 06/13/20 09:00 06/15/20 08:18 Eliquis PO 2.5 mg Q12HR BIANKA Administration Dextrose 12.5 gm 06/13/20 08:00 Dextrose 50% Syringe IV PUSH PRN PRN Hypoglycemia Protocol
--- NOTE | 2020-06-15 12:00 | PM.PNNEP ---
Progress Note: A&P Assessment and Plan (1) RICKIE (acute kidney injury): Code(s): N17.9 - Acute kidney failure, unspecified Status: Acute Assessment and Plan: etiology? due to UTI/infection versus antibiotics verus combo of both versus something else? improvement noted since admission making reasonable urine no critical electrolytes renal ultrasound reviewed - mild hydro noted but unclear if acute given improvement in renal function with current therapy continue supportive therapy for now (2) Chronic kidney disease, stage IV (severe): Code(s): N18.4 - Chronic kidney disease, stage 4 (severe) Status: Chronic Assessment and Plan: baseline creatinine ~ 1.8 - 2.3mg/dl in the last few years due to HTN, DM, kidney stones + bladder issues, and age (3) Acute UTI: Code(s): N39.0 - Urinary tract infection, site not specified Status: Acute Assessment and Plan: urine culture noted on antibiotics (4) Benign essential hypertension: Code(s): I10 - Essential (primary) hypertension Status: Chronic Assessment and Plan: reasonable control at this time would avoid overcontrol in the setting of #1 follow hemodynamics (5) Heart murmur: Code(s): R01.1 - Cardiac murmur, unspecified Status: Acute Assessment and Plan: Echo for further evaluation follow-up on results (6) DM type 2 (diabetes mellitus, type 2): Qualifiers: Diabetes mellitus complication status: without complication Diabetes mellitus jail insulin use: without jail use Qualified Code(s): E11.9 - Type 2 diabetes mellitus without complications Code(s): E11.9 - Type 2 diabetes mellitus without complications Status: Chronic Assessment and Plan: follow accuchecks on SSI Will continue to follow. Subjective Date/time seen: 06/15/20 12:00 Overall, seems to be doing better in general; some mild nausea but doing better s/p antiemetics; better urine output noted with declining trend in kidney function; no acute issues/events overnight or earlier this AM. Exam Narrative: Exam Narrative: General: WD/WN female in NAD Heart: normal S1 and S2; no rub Lungs: clear to auscultation Abdomen: soft, nontender, nondistended, positive bowel sounds Extremities: no cyanosis or clubbing; no edema Skin: warm and dry Objective Data Vital Signs Vital Signs: Vital Signs Temp Pulse Resp BP Pulse Ox 06/15/20 04:00 36.4 C 72 22 H 150/63 H 95 06/14/20 22:00 36.6 C 68 22 H 133/81 96 06/14/20 14:00 36.4 C 63 20 124/58 L 98 06/14/20 12:30 63 122/56 L Intake/Output Intake/Output: Intake & Output 06/12/20 06/13/20 06/14/20 06/15/20 23:59 23:59 23:59 23:59 Intake Total 1050 2878 2410 150 Output Total 550 1200 600 Balance 1050 2328 1210 -450 Meds/Results Medications: Active Medications Generic Name Dose Route Start Last Admin Trade Name Freq PRN Reason Stop Dose Admin Apixaban 2.5 mg 06/13/20 09:00 06/15/20 08:18 Eliquis PO 2.5 mg Q12HR BIANKA Administration Dextrose 12.5 gm 06/13/20 08:00 Dextrose 50% Syringe IV PUSH PRN PRN Hypoglycemia Protocol Diltiazem HCl 300 mg 06/13/20 09:00 06/15/20 08:18 Cardizem Cd PO 07/13/20 09:01 300 mg DAILY BIANKA Administration Diltiazem HCl 120 mg 06/13/20 09:00 06/15/20 08:18 Cardizem Cd PO 120 mg DAILY BIANKA Administration Glucagon 1 mg 06/13/20 08:00 Glucagon For Inj IM PRN PRN Hypoglycemia Protocol Glucose 15 gm 06/13/20 08:00 Glutose 15 PO PRN PRN Hypoglycemia Protocol Hydralazine HCl 100 mg 06/13/20 05:00 06/15/20 05:08 Apresoline Tablet PO 100 mg 0500,1300,2100 BIANKA Administration Ceftriaxone Sodium/Dextrose 1 gm in 50 mls @ 100 mls/hr 06/13/20 21:00 06/14/20 21:03 Rocephin 1 Gm/D5w 50 Ml IVPB Infused Q24H BIANKA Infusion Dextrose 1,
[2020-06-15 14:00] VITALS: BP 149/58; PULSE 64; RESP 16; TEMP 36.9; O2SAT 98
--- NOTE | 2020-06-15 14:39 | PM.IMPN ---
Progress Note: A&P Assessment and Plan (1) Acute on chronic renal failure: Code(s): N17.9 - Acute kidney failure, unspecified; N18.9 - Chronic kidney disease, unspecified Status: Acute Assessment and Plan: -----improving now 3.2. UA is only growing [id number] Serratia Marcescens but will continue abx (day 3). Nephrology has been consulted. She does have chronic kidney disease. 2+ protein in her urine. I do not think her right arm swelling indicates worsening kidney failure and is more from a thrombosed superficial artery from the IV. Ultrasound of the kidneys shows a mild right hydronephrosis but no obstruction. Await for Nephrology's additional recommendations. Monitor for signs of fluid overload (2) Acute UTI: Code(s): N39.0 - Urinary tract infection, site not specified Status: Acute Assessment and Plan: -----UA growing 10,000-50,000 Serratia marcescens. 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 due to her renal dysfunction. 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 Continue to hold glimepiride due to kidney dysfunction and decreased diet. Last A1c 8.5 back in January (5) Heart murmur: Code(s): R01.1 - Cardiac murmur, unspecified Status: Acute Assessment and Plan: -----patient has significant heart murmur on exam but echo does not show any significant abnormalities. (6) Aortic arch aneurysm: Code(s): I71.2 - Thoracic aortic aneurysm, without rupture Status: Acute Assessment and Plan: -----seen on chest x-ray and I discussed this with the patient. I spoke with Dr. Maloney about it who will monitor her. Will watch her blood pressure closely. (7) Superficial vein thrombosis: Code(s): I82.890 - Acute embolism and thrombosis of other specified veins Status: Acute Assessment and Plan: -----Noted on exam. will have her elevate the extremity and will order warm compresses. Subjective Date/time seen: 06/15/20 14:39 Interval history: Pt is a 74-year-old female here for UTI/RICKIE who was seen today. Patient states she had some nausea but was given medicine and is feeling better. She has not eaten launch cherie plans to do so. She knows her right arm started swelling earlier today but has been improving. She denies history of a blood clot. She has not had any chest pain today Exam Narrative: Exam Narrative: General: Well developed well nourished patient resting comfortably in bed in NAD HEENT: normocephalic Neck: supple Neuro: Alert and oriented x4 CV: Irregularly irregular with a 3/6 systolic murmur heard best at the apex but also heard in all areas Resp:CTA Abd: Soft, non distended. No pain to palpation. Positive bowel sounds Extremities: nonpitting swelling in the right arm improved with elevation. I do believe there is a superficial clot likely due to the IV. there appears to be no rashes, erythema or wounds in this area.No swelling, erythema, or pain to palpation In the lower extremities. Objective Data Vital Signs Vital Signs: Vital Signs - 24 hr 06/14/20 22:00 06/15/20 04:00 06/15/20 12:00 Temperature 98 F 97.6 F Pulse Rate 68 72 65 Respiratory Rate 22 H 22 H Blood Pressure 133/81 150/63 H 129/50 L Pulse Oximetry 96 95 Intake/Output Intake/Outp
[2020-06-15 16:36] LABS: Glucose Point of Care 91 (65-105)
[2020-06-15 19:18] LABS: Myoglobin, Urine 41 mcg/L (<28)
[2020-06-15 21:58] VITALS: BP 124/46; PULSE 61; RESP 16; TEMP 36.7; O2SAT 95
[2020-06-16 01:24] LABS: Glucose Point of Care 103 (65-105)
[2020-06-16] MEDS: LACTATED RINGERS 1,000 ML 80 ML IV CONT (03:50)
[2020-06-16] MEDS: hydrALAZINE HCL 50 MG TABLET 100 MG PO ×2 (05:16→12:46)
[2020-06-16 05:46] LABS: Hematocrit 24.7 % (37.0-47.0); Hemoglobin 7.6 g/dL (12.0-15.0); Mean Corpuscular HGB Conc 30.8 g/dl (32-36); Mean Corpuscular Volume 94.3 fl (80-100); Mean Platelet Volume 11.9 fl (7.4-10.4); Platelet Count Result 198 k/mm3 (150-375); Red Blood Count 2.62 M/mm3 (4.2-5.4); Red Cell Distribution Width 14.4 % (11.5-14.5); White Blood Count 6.4 K/mm3 (4.5-10.0)
[2020-06-16 05:58] LABS: Anion Gap 5 mmol/L (8-16); Blood Urea Nitrogen 33 mg/dL (7-17); Carbon Dioxide 21 mmol/L (22-30); Chloride 114 mmol/L (98-107); Estimated CRCL calculation 20 ml/min; Estimated Glomerular Filt Rate 17; Glucose 85 mg/dL (65-105); Phosphorus 3.3 mg/dL (2.5-4.5); Potassium 4.1 mmol/L (3.4-5.0); Sodium 140 mmol/L (137-145)
[2020-06-16 06:00] VITALS: BP 141/58; PULSE 57; RESP 16; TEMP 36.4; O2SAT 97
[2020-06-16 06:55] LABS: Glucose Point of Care 84 (65-105)
[2020-06-16 07:55] LABS: Glucose Point of Care 86 (65-105)
[2020-06-16] MEDS: APIXABAN 2.5 MG TABLET PO (08:42)
[2020-06-16] MEDS: TRIMETHOPRIM 100 MG TABLET PO (08:42)
[2020-06-16] MEDS: LORATADINE 10 MG TABLET PO (08:42)
[2020-06-16] MEDS: SODIUM BICARBONATE TAB 650 MG TABLET PO (08:43)
[2020-06-16] MEDS: polyethylene glycoL 3350 17 GM POWD.PACK PO (08:43)
[2020-06-16] MEDS: ROSUVASTATIN 10 MG TABLET 20 MG PO (08:43)
[2020-06-16] MEDS: LETROZOLE (*CHEMO) 2.5 MG TABLET PO (08:43)
[2020-06-16 11:36] LABS: Glucose Point of Care 100 (65-105)
[2020-06-16 12:03] LABS: Hematocrit 25.7 % (37.0-47.0)
[2020-06-16 14:00] VITALS: BP 138/58; PULSE 62; RESP 15; TEMP 37; O2SAT 95
--- NOTE | 2020-06-16 14:07 | PM.DS ---
DS: Admitting Diagnosis Admitting Diagnosis Admitting Diagnosis: Not feeling right DS: Discharge Diagnosis Discharge Diagnosis (1) Acute on chronic renal failure: Code(s): N17.9 - Acute kidney failure, unspecified; N18.9 - Chronic kidney disease, unspecified Status: Acute Assessment and Plan: -----Cr peaked at 4.9 and now improved to 2.8. Baseline around 2. UA is only growing [id number] Serratia Marcescens and treated with abx d/t RICKIE. Nephrology saw the patient while she was here and no bx was indicated since pt improving on her own. ATN? UTI/virus? She does have chronic kidney disease. 2+ protein in her urine. Ultrasound of the kidneys shows a mild right hydronephrosis but no obstruction. Continue to f/u with nephrology outpt. (2) Acute UTI: Code(s): N39.0 - Urinary tract infection, site not specified Status: Acute Assessment and Plan: -----UA growing 10,000-50,000 Serratia marcescens. Because of her hydronephrosis and RICKIE, abx were given. 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 A1c is 5.7. At 74, this may be a little too tightly controlled. I have stopped her glimepiride and will continue on Tradjenta. She was educated about hypoglycemia signs and symptoms. I called her primary care physician let him know about this change. Last A1c 8.5 back in January (5) Heart murmur: Code(s): R01.1 - Cardiac murmur, unspecified Status: Acute Assessment and Plan: -----patient has significant heart murmur on exam but echo does not show any significant abnormalities. (6) Aortic arch aneurysm: Code(s): I71.2 - Thoracic aortic aneurysm, without rupture Status: Acute Assessment and Plan: -----seen on chest x-ray and I discussed this with the patient. I spoke with Dr. Maloney about it who will monitor her. Will watch her blood pressure closely. (7) Superficial vein thrombosis: Code(s): I82.890 - Acute embolism and thrombosis of other specified veins Status: Acute Assessment and Plan: -----Noted on exam, improved. will have her elevate the extremity and will order warm compresses. DS: Summary Hospital Course Reason for hospitalization: RICKIE Hospital Course: Patient is a 74-year-old female who presented emergency room for weakness found to have a creatinine of 4.9. Vitals were stable. Patient was admitted to the hospitalist service and nephrology was consulted. Please see above for further details. The patient's creatinine improved with IV hydration throughout her stay. No invasive testing seemed appropriate since she was improving, cause of her RICKIE is unknown. She has follow-up with nephrology outpatient. She was educated about the worrisome signs and symptoms to come back to emergency room for and was discharged in stable condition Status at Discharge Functional status at discharge: independent ambulation Overall status at discharge: patient is back to baseline Time Spent with Patient Time attestation: Total time spent providing and/or coordinating discharge services:32 min Time spent: Greater than 30 minutes Exam Narrative: Exam Narrative: General: Well developed well nourished patient resting comfortably in bed in NAD HEENT: normocephalic Neck: supple Neuro: Alert and oriented x4 CV: Irregularly irregular with a
[2020-06-16 14:24] LABS: Hemoglobin A1C 5.7 % (<5.7)
[2020-06-17 13:46] LABS: Chloride Rand Ur 60 mmol/L (32-290); Chloride/Creatinine Rand Ur 76 (38-318); Creatinine Random Urine 79 mg/dL (20-275)
== END 2020-06-16 15:20 | disposition home or self-care (01) | DRG 690 ==
LOC: ANHED 23:05 → ANH2MED 23:07
PROVIDERS: Internal Medicine Nephrology; Physician Assistant; Admitting Provider Internal Medicine; Emergency Provider Emergency Medicine; PCP Internal Medicine; Visit Provider Family Medicine
DX: N39.0 Urinary tract infection, site not specified (principal); N17.9 Acute kidney failure, unspecified; E11.22 Type 2 diabetes mellitus with diabetic chronic kidney disease; N18.2 Chronic kidney disease, stage 2 (mild); I12.9 Hypertensive chronic kidney disease with stage 1 through stage 4 chronic kidney disease, or unspecified chronic kidney disease; Z79.01 Long term (current) use of anticoagulants; I71.2 Thoracic aortic aneurysm, without rupture; N13.30 Unspecified hydronephrosis
CPT/HCPCS: 36415; 70450; 71046; 76775; 80048; 80053; 80069; 81001; 82436; 82570; 83036; 83874; 84156; 84300; 85014; 85018; 85025; 85027; 85999; 87077; 87086; 87088; 87186; 93005; 93306; 96361; 96365; 97161; 97165; 99285; A9270; G0378; J0696; J2405; J7030; J7120

== ENCOUNTER 2020-07-01 16:15 | Outpatient (CLI) | payer MEDICARE, OTHER, SELFPAY ==
--- NOTE | ~2020-07-01 | CT_ITS ---
EXAMINATION: CT chest wo con DATE: 07/01/2020 17:23 INDICATION: Thoracic aortic aneurysm without rupture TECHNIQUE: Computed tomography (CT) of the chest was performed without intravenous contrast. The dose -length product (DLP) was 308.16 mGy-cm. Automated exposure control and iterative reconstruction tech nique were employed. COMPARISON: None FINDINGS: The ascending aorta measures 4.1 cm at the level of the main pulmonary artery. No dissectio n is identified although evaluation is limited by the absence of intravenous contrast. There is no pl eural effusion or pneumothorax. Cardiomegaly is noted. There is calcified coronary artery atheroscler osis. There are no pathologically enlarged thoracic lymph nodes. Surgical changes are noted in the ri ght breast and right axilla. There is a 3.3 cm calcified nodule of the right thyroid lobe. The gallbl adder is surgically absent. Punctate calcifications in otherwise normal appearing liver and spleen li hillary represent healed granulomatous disease. There is a 1.5 cm nonobstructing stone of the left kidne y. Multiple cysts are noted in the kidneys. The right kidney is severely atrophic. A stable 4 cm mass in the right adrenal gland is consistent with an adenoma. There is a 1.6 cm adenoma of the left adre nal gland. There is moderate thoracic spondylosis. IMPRESSION: 1. Fusiform dilation of the ascending aorta measuring up to 4.1 cm. 2. Calcified left thyroid nodule. Biopsy was previously recommended. Correlate with pathology. Reviewed, dictated and finalized at location B.
--- NOTE | ~2020-07-01 | US_ITS ---
EXAMINATION: US carotid duplex BI EXAM DATE: 07/01/2020 17:55 INDICATION: Other specified symptoms and signs involving circulatory system. TECHNIQUE: Grayscale, color and pulsed Doppler images of the cervical carotid arteries were obtained . The degree of vessel stenosis is placed in one of the following categories: normal, <50% stenosis, 50-69% stenosis, >=70% stenosis but less than near-occlusion, near-occlusion, or occlusion. Note that percent stenosis relative to normal distal artery lumen diameter is indirectly measured from velocit y measurements as described by Michael, et al. Radiology 2003; 229:340-346. Comparison is made to prior examination from 10/13/2015. FINDINGS: RIGHT SIDE: Right common carotid artery peak systolic velocity (PSV in cm/s): 77 Right bulb/internal carotid artery peak systolic velocity (PSV in cm/s): 136 Right internal carotid artery end diastolic velocity (EDV in cm/s): 35 Right ICA/CCA peak systolic ratio: 1.8 Right external carotid artery peak systolic velocity (PSV in cm/s): 75 Right vertebral artery antegrade flow: yes There is mild carotid bulb plaque. Velocity and Doppler waveforms in the common and internal carotid arteries is normal. LEFT SIDE: Left common carotid artery peak systolic velocity (PSV in cm/s): 71 Left bulb/internal carotid artery peak systolic velocity (PSV in cm/s): 213 Left internal carotid artery end diastolic velocity (EDV in cm/s): 78 Left ICA/CCA peak systolic ratio: 3.0 Left external carotid artery peak systolic velocity (PSV in cm/s): 84 Left vertebral artery antegrade flow: yes There is no focal plaque identified. There is tortuosity of the ICA. IMPRESSION: 1. Less than 50 percent stenosis in the right internal carotid artery. 2. Normal left internal carotid artery. Reviewed, dictated and finalized at location A.
== END 2020-07-01 16:16 | disposition home or self-care (01) ==
PROVIDERS: PCP Internal Medicine; Visit Provider Internal Medicine
DX: I71.2 Thoracic aortic aneurysm, without rupture (principal); E04.1 Nontoxic single thyroid nodule; I65.21 Occlusion and stenosis of right carotid artery
CPT/HCPCS: 71250; 93880

== ENCOUNTER → 2020-08-14 12:36 | Outpatient (CLI) | payer MEDICARE, OTHER, SELFPAY ==
--- NOTE | ~2020-08-14 | DEXA_ITS ---
Bone Density Report Name: Maria R Barrientos Age: 75 Sex: Female Ethnicity: White Date of : 1945 Indication: osteopenia; monitoring treatment; cancer; postmenopausal Referring Provider: CECILIA REYES Study: Bone densitometry was performed. Exam Date: August 14, 2020 Accession number: [id number] Bone Density: Region BMD T-score Z-score Classification AP Spine (L1-L4) 0.823 -2.0 0.3 Osteopenia Femoral Neck (Left) 0.519 -3.0 -1.0 Osteoporosis Total Hip (Left) 0.692 -2.0 -0.4 Osteopenia Femoral Neck (Right) 0.625 -2.0 0.0 Osteopenia Total Hip (Right) 0.751 -1.6 0.1 Osteopenia Total Hip Mean 0.722 -1.8 -0.2 Osteopenia World Health Organization criteria for BMD impression classify patients as: Normal (T-score at or above -1.0), Osteopenia (T-score between -1.0 and -2.5), or Osteoporosis (T-score at or below -2.5). 10-year Fracture Risk: FRAX not reported because: Some T-score for Spine Total or Hip Total or Femoral Neck at or below -2.5 Treated for osteoporosis Previous Exams: Region Exam Age BMD T-score BMD Change BMD Change Date g/cm2 vs Baseline vs Previous AP Spine(L1-L4) 08/14/2020 75 0.823 -2.0 0.067* 0.015 06/16/2018 72 0.808 -2.2 0.052* -0.001 10/12/2012 67 0.809 -2.2 0.053* 0.053* 06/19/2008 62 0.756 -2.6 Total Hip(Left) 08/14/2020 75 0.692 -2.0 -0.228* -0.191* 06/16/2018 72 0.883 -0.5 -0.037* -0.058* 10/12/2012 67 0.941 0.0 0.020 0.020 06/19/2008 62 0.920 -0.2 Total Hip(Right) 08/14/2020 75 0.751 -1.6 -0.136* -0.109* 06/16/2018 72 0.860 -0.7 -0.027* -0.078* 10/12/2012 67 0.938 0.0 0.051* 0.051* 06/19/2008 62 0.887 -0.4 *Denotes significance at 95% confidence level, LSC for AP Spine = 0.022 g/cm2, LSC for Total Hip = 0.027 g/cm2 Clinical Information Provided by Patient: Is being treated for osteoporosis Has used the following medications: Prolia (i.e. denosumab), Vitamin D, Calcium Has the following medical conditions: Cancer Patient maximum height was 67 Menopause Age: 55 Drinks caffeinated beverages Onset of menses at age 14 Number of children 1 Impression: The patient has osteoporosis, based on the Left Femoral Neck T-score. The BMD for the Total Hip(Left) decreased, changing by -0.191 since the last DXA exam. The BMD
== END ==
PROVIDERS: PCP Internal Medicine
DX: C50.511 Malignant neoplasm of lower-outer quadrant of right female breast (principal); Z17.0 Estrogen receptor positive status [ER+]; M85.88 Other specified disorders of bone density and structure, other site; M81.0 Age-related osteoporosis without current pathological fracture; M85.852 Other specified disorders of bone density and structure, left thigh; M85.851 Other specified disorders of bone density and structure, right thigh
CPT/HCPCS: 77080

== ENCOUNTER 2021-03-11 14:54 | Outpatient (CLI) | payer MEDICARE, OTHER, SELFPAY ==
--- NOTE | ~2021-03-11 | MM_ITS ---
EXAMINATION: MM screening [facility] BI w [facility]war HISTORY: Screening TECHNIQUE: Craniocaudal and mediolateral oblique 3-D tomosynthesis images were obtained and synthetic 2-D images were generated. CAD analysis was submitted and interpreted. COMPARISON: Comparison to multiple prior studies sequentially, with oldest reviewed study dated 04/2015. BREAST PARENCHYMAL COMPOSITION: There are scattered areas of fibroglandular density. FINDINGS: Stable architectural distortion in the right breast, consistent with previous lumpectomy. T here are benign bilateral breast calcifications. There is no evidence of suspicious mass, calcificati on, or architectural distortion to suggest malignancy in either breast. There has been no suspicious interval change. IMPRESSION: 1. No mammographic evidence of malignancy. 2. Recommend routine screening mammography in one year. BI-RADS Category 2: Benign finding(s). Reviewed, dictated and finalized at location A.
== END 2021-03-11 14:55 | disposition home or self-care (01) ==
LOC: ANHIMG 14:59
PROVIDERS: PCP Internal Medicine; Visit Provider Internal Medicine
DX: Z12.31 Encounter for screening mammogram for malignant neoplasm of breast (principal)
CPT/HCPCS: 77063; 77067

== ENCOUNTER 2021-04-22 10:24 | Outpatient (CLI) | payer MEDICARE, OTHER, SELFPAY ==
[2021-04-22 11:08] LABS: Add Urine Microscopic? YES; Appearance Urine Turbid (Clear); Bacteria Urine Trace /hpf; Bilirubin Urine Negative (Negative); Blood Urine 1+ (Negative); Color Urine Yellow (Yellow); Glucose Urine UA 3+ mg/dL (Negative); Ketones Urine Trace mg/dL (Negative); Leukocyte Esterase Ur 3+ LEU/UL (Negative); Nitrate Urine Negative (Negative); Protein Urine 2+ mg/dL (Negative); RBC Urine 51-75 /hpf (0-2); Specific Grav Ur 1.017 (1.001-1.035); Squamous Epithelial Cell Urine Many /hpf (Few); Urobilinogen Urine Negative mg/dL (<2.0); WBC Urine >75 /hpf
[2021-04-22 11:18] LABS: Anion Gap 14 mmol/L (8-16); Blood Urea Nitrogen 55 mg/dL (7-17); Calcium 10.9 mg/dL (8.4-10.2); Carbon Dioxide 16 mmol/L (22-30); Chloride 105 mmol/L (98-107); Cholesterol 128 mg/dL (0-200); Estimated Glomerular Filt Rate 13; Glucose 390 mg/dL (65-105); HDL Direct 49 mg/dL; Potassium 4.1 mmol/L (3.4-5.0); Sodium 135 mmol/L (137-145); Triglycerides 163 mg/dL (<150)
[2021-04-22 11:29] LABS: LDL Cholesterol Direct 39 mg/dL
[2021-04-22 12:01] LABS: Hemoglobin A1C > 14.0 % (<5.7)
[2021-04-22 12:27] LABS: Folic Acid > 20.0 ng/mL (2.76->20); Vitamin B12 > 1000.0 pg/mL (239-931)
== END 2021-04-22 10:25 | disposition home or self-care (01) ==
LOC: ANHLAB 10:29
PROVIDERS: PCP Internal Medicine; Visit Provider Internal Medicine
DX: E53.8 Deficiency of other specified B group vitamins (principal); E78.2 Mixed hyperlipidemia; N39.0 Urinary tract infection, site not specified; E11.9 Type 2 diabetes mellitus without complications; I10 Essential (primary) hypertension
CPT/HCPCS: 36415; 80048; 80061; 81001; 82607; 82746; 83036; 87077; 87086; 87186

== ENCOUNTER 2021-04-22 16:03 | Inpatient (IN) | payer MEDICARE, OTHER, SELFPAY ==
[2021-04-22] VITALS (15 sets, daily range): BP systolic 98–136; BP diastolic 59–79; PULSE 67–108; RESP 13–27; TEMP 36.8–37; O2SAT 96–100
[2021-04-22 17:09] LABS: Basophils Percent Auto 0.2 % (0.2-1.2); Eosinophils Percent Auto 0.1 % (0-4.4); Hematocrit 33.8 % (37.0-47.0); Hemoglobin 10.8 g/dL (12.0-15.0); Immature Granulocyte Absolute 0.06 K/mm3 (0.00-0.031); Immature Granulocyte Percent A 0.7 % (0-0.5); Lymphocytes Absolute Auto 1.62 K/mm3 (0.9-3.2); Lymphocytes Percent Auto 19.5 % (18.3-44.2); Mean Corpuscular Hemoglobin 27.1 pg (26-34); Mean Corpuscular Volume 84.7 fl (80-100); Mean Platelet Volume 9.8 fl (7.4-10.4); Monocytes Absolute Auto 0.5 K/mm3 (0.1-0.6); Monocytes Percent Auto 5.5 % (2.6-8.5); Neutrophils Absolute Auto 6.1 K/mm3 (1.3-6.7); Platelet Count Result 312 k/mm3 (150-375); Red Blood Count 3.99 M/mm3 (4.2-5.4); Red Cell Distribution Width 12.6 % (11.5-14.5); White Blood Count 8.3 K/mm3 (4.5-10.0)
[2021-04-22 17:22] LABS: Alanine Aminotransferase 15 U/L (4-35); Albumin Level 4.1 g/dL (3.5-5.1); Alkaline Phosphatase 75 U/L (38-126); Anion Gap 14 mmol/L (8-16); Aspartate Amino Transferase 27 U/L (14-36); Bilirubin,Total 0.8 mg/dL (0.2-1.3); Blood Urea Nitrogen 56 mg/dL (7-17); Calcium 10.7 mg/dL (8.4-10.2); Carbon Dioxide 18 mmol/L (22-30); Chloride 103 mmol/L (98-107); Estimated CRCL calculation 16 ml/min; Estimated Glomerular Filt Rate 13; Glucose 362 mg/dL (65-105); Potassium 4.2 mmol/L (3.4-5.0); Sodium 135 mmol/L (137-145)
--- NOTE | 2021-04-22 17:36 | ED.GENADULT ---
HPI - General Adult General Chief complaint: Recheck/Abnormal Lab/Rx Stated complaint: high blood sugar, kidney levels elevated Time Seen by Provider: 04/22/21 16:14 History of Present Illness HPI narrative: Patient is a 75-year-old female who presents ER after referral from her PCP. On outpatient lab work it was found that she has acute on chronic renal failure. Patient additionally has uncontrolled diabetes with a hemoglobin A1c of greater than 14 and a blood sugar currently greater than 300. Patient reports eating and drinking normally though family reports she has had poor p.o. intake. Patient reports compliance with home medications but does not know what she takes for her diabetes. Patient also is reporting some discomfort with urination. Outpatient lab work shows possible UTI. While in the PCP office patient had orthostasis. Related Data Home Medications Medication Instructions Recorded Confirmed apixaban 5 mg tablet 5 mg PO BID 10/15/19 04/22/21 fesoterodine 8 mg tablet,extended 8 mg PO DAILY 10/15/19 04/22/21 release 24 hr loratadine 10 mg capsule 10 mg PO DAILY 10/15/19 04/22/21 rosuvastatin 20 mg PO DAILY 06/12/20 04/22/21 aspirin 81 mg tablet,delayed 81 mg PO DAILY 08/18/20 04/22/21 release cyanocobalamin (vitamin B-12) 1,000 mcg PO DAILY 08/18/20 04/22/21 1,000 mcg tablet folic acid 800 mcg tablet 0.8 mg PO DAILY 08/18/20 04/22/21 nitroglycerin 0.4 mg sublingual 0.4 mg SUBLINGUAL Q5M PRN 08/18/20 04/22/21 tablet cholecalciferol (vitamin D3) 25 25 mcg PO DAILY 11/03/20 04/22/21 mcg (1,000 unit) tablet cephalexin 500 mg tablet 500 mg PO DAILY tablet 01/01/21 04/22/21 Allergies Allergy/AdvReac Type Severity Reaction Status Date / Time Sulfa (Sulfonamide Allergy Itching Verified 04/22/21 15:24 Antibiotics) Review of Systems Review of Systems: All systems reviewed & are unremarkable except as noted in HPI and below Constitutional: Constitutional: Denies chills, Reports fatigue, Denies fever(s) and Reports weakness ENT: Denies nasal congestion and Denies sore throat Cardiovascular: Cardiovascular: Denies chest pain and Denies radiating jaw, neck or arm pain Gastrointestinal: Gastrointestinal: Denies abdominal pain, Denies diarrhea, Denies nausea and Denies vomiting Genitourinary: Genitourinary: Reports nocturia, Reports dysuria and Reports urinary incontinence [facility] Past Medical History Medical History (Updated 04/22/21 @ 18:03 by Ortega Oliva MD) A-fib Abnormal finding of blood chemistry Benign essential hypertension BMI 34.0-34.9,adult BMI 35.0-35.9,adult BMI 36.0-36.9,adult Bruise of eye Cancer of right breast status post radiation and chemotherapy Carotid bruit Castlemans disease Chronic kidney disease, stage 3 CKD (chronic kidney disease) DM type 2 (diabetes mellitus, type 2) Elevated serum homocysteine level Encounter for screening mammogram for malignant neoplasm of breast Follow up Hearing loss of both ears Hospital discharge follow-up Hyperlipidemia Kidney stones of the left kidney with multiple lithotripsies Overactive bladder Physical deconditioning Thyroid nodule UTI (urinary tract infection) Vitamin D deficiency Surgical History Surgical History Status post cataract extraction and insertion of intraocular lens of right eye Status post right breast lumpectomy Family History Family History Sibling Cerebrovascular accident Diabetes mellitus Father Diabetes mellitus Mother Cervical cancer Social History Social History Social History: the patient lives with her 45-year-old daughter. She is . She is a lifelong nonsmoker and does not drink alcohol or use illicit substances. She is retired from the [employer]. Primary care physician: Dr. Henry
--- NOTE | 2021-04-22 18:24 | PC.NURSE ---
multiple iv attempts by multiple rns unsuccessful. family at bedside.
[2021-04-22] MEDS: SODIUM CHLORIDE 0.9% IV 1,000 ML 999 ML IV CONT (19:25)
--- NOTE | 2021-04-22 20:35 | ADMGEN ---
This patient, Maria R Barrientos, was admitted to Medical Room 348-01. Patient/family oriented to hospital policies and general routines including ID bracelet, bed and alarms, visiting hours, pain management, procedures, bathroom and other care routines, personal items, smoking policy, room service/diet, and visiting hours. Information on how to activate the Rapid Response Team has been discussed. Patient/Family are encouraged to report perceived risks to care and to ask questions if they do not understand what they are told or what they should do.
[2021-04-22] MEDS: SODIUM CHLORIDE 0.9% IV 1,000 ML 125 ML IV CONT (21:04)
--- NOTE | 2021-04-22 21:06 | PM.IMHP ---
H&P: HPI History of Present Illness Date/Time: 04/22/21 21:06 Chief Complaint: Not feeling right Narrative: 75-year-old with past medical history of poorly controlled diabetes mellitus, hypertension, urge urinary incontinence, and atrial fibrillation who presented to the ER from primary care physician's office due to not feeling right . The patient had a routine follow-up with her primary care physician at which time she reports she did not feel right. She had labs obtained as outpatient that demonstrated hyperglycemia and worsening kidney function in was directed to come to the ER by her primary care physician.she reports that she has been thirst your than usual over the last couple of months. She denies any increased urinary frequency or urgency from her baseline. She denies polyphagia. She reports normal appetite but her family reports decreased oral intake. She does not wish to check her weight on a regular basis. She does not frequently check her glucose. She denies any decreased urine output, changes in urine color or dysuria. She has not had any nausea or vomiting. She reports that she has feels more tired. She is followed as outpatient with Dr. Schwarz for chronic kidney disease. Dr. Schwarz was mention to her recently that she should go to a class to discuss possibility of dialysis eventually. She denies any lower extremity swelling, orthopnea or paroxysmal nocturnal dyspnea. While at the primary care physician's office patient orthostatic vital signs obtained which demonstrated orthostatic hypotension. Patient's creatinine on outpatient labs 12/26/2020 was 2.4 . Review of Systems Review of Systems: Narrative: 12 systems were reviewed with pertinent positives and negatives per HPI. Except as documented in the HPI, all other systems were reviewed and are negative. 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 Hyperlipidemia Kidney stones of the left kidney with multiple lithotripsies Left ventricular outflow obstruction echocardiogram May 2020 Osteoporosis DEXA scan 08/14/2020 Overactive bladder Physical deconditioning Stress incontinence in female Thyroid nodule (~2014) Vitamin D deficiency Surgical History Surgical History Status post cataract extraction and insertion of intraocular lens of right eye Status post right breast lumpectomy Family History Family History Sibling Cerebrovascular accident Diabetes mellitus Father Diabetes mellitus Mother Cervical cancer Social History Social History (Updated 04/23/21 @ 05:34 by Eduarda Flores DO) Social History: The patient lives with her 46-year-old daughter. She is . She is a lifelong nonsmoker and does not drink alcohol or use illicit substances. She is retired from the [employer]. Primary care physician: Dr. Carl Maloney code status: Full code Surrogate decision maker: Daughter Smoking status: Never smoker Second hand tobacco smoke exposure: No Alcohol intake: never Substance use: never Substance use type: does not use Gender identity (if verbalized by the patient): Female Spiritual care concerns: No Meds Home Medications and Allergies Home Medications Medication Instructions Recorded Confirmed Type apixaban 5 mg tablet 5 mg PO BID 10/15/19 04/22/21 History fesoterodine 8 mg tablet,extended 8 mg PO DAILY 10/15/19 04/22/21 History release 24 hr loratadine 10 mg ca
[2021-04-22] MEDS: INSULIN ASPART (*BKC) 100 UNITS/ML 8 UNITS SUB-Q (21:09)
[2021-04-22 21:55] LABS: Glucose Point of Care 292 mg/dl (65-105)
--- NOTE | 2021-04-22 22:14 | ECG_ITS ---
Measurements Intervals [place] Rate: 64 P: 53 TX: 175 QRS: -48 QRSD: 114 T: 41 QT: 415 QTc: 431 Interpretive Statements SINUS RHYTHM LEFT ANTERIOR FASCICULAR BLOCK VOLTAGE CRITERIA FOR LVH MINIMAL Q WAVES- HIGH LATERAL LEADS BASELINE ARTIFACT- I, II, AVR ABNORMAL ECG Electronically Signed On 04-23-2021 7:52:10 CDT by Don Flores D.O.
[2021-04-22] MEDS: INSULIN GLARGINE (*BKC) 100 UNITS/ML 10 UNITS SUB-Q (23:00)
[2021-04-22] MEDS: METOPROLOL TARTRATE 50 MG TAB BY MOUTH (23:00)
[2021-04-23] MEDS: SODIUM CHLORIDE 0.9% IV 1,000 ML 125 ML IV CONT ×2 (05:02→13:09)
[2021-04-23 06:28] LABS: Anion Gap 11 mmol/L (8-16); Blood Urea Nitrogen 50 mg/dL (7-17); Calcium 9.7 mg/dL (8.4-10.2); Carbon Dioxide 15 mmol/L (22-30); Chloride 112 mmol/L (98-107); Estimated CRCL calculation 19 ml/min; Estimated Glomerular Filt Rate 15; Glucose 143 mg/dL (65-105); Potassium 3.7 mmol/L (3.4-5.0); Sodium 138 mmol/L (137-145)
[2021-04-23 06:29] LABS: Hematocrit 28.8 % (37.0-47.0); Hemoglobin 9.5 g/dL (12.0-15.0); Mean Corpuscular Hemoglobin 27.5 pg (26-34); Mean Corpuscular Volume 83.2 fl (80-100); Mean Platelet Volume 10.3 fl (7.4-10.4); Platelet Count Result 284 k/mm3 (150-375); Red Blood Count 3.46 M/mm3 (4.2-5.4); Red Cell Distribution Width 12.8 % (11.5-14.5); White Blood Count 8.9 K/mm3 (4.5-10.0)
[2021-04-23 06:32] VITALS: BP 135/71; PULSE 61; RESP 18; TEMP 36.8; O2SAT 97
--- NOTE | 2021-04-23 07:46 | PM.IMPN ---
Progress Note: A&P Assessment and Plan (1) Acute on chronic kidney failure: Qualifiers: Acute renal failure type: unspecified Chronic kidney disease stage: stage 4 (severe) Qualified Code(s): N17.9 - Acute kidney failure, unspecified; N18.4 - Chronic kidney disease, stage 4 (severe) Code(s): N17.9 - Acute kidney failure, unspecified; N18.9 - Chronic kidney disease, unspecified Status: Acute Assessment and Plan: acute on chronic kidney disease stage 4. UTI based on UA, cultures pending creatinine is up 1.5 points from baseline at admission; creatinine has improved today at 3.0 from yesterday at 3.4. Her baseline is in the 2-3 range. patient appears clinically volume depleted with uncontrolled diabetes mellitus received 1 L of IV fluid bolus in the ER continue IV fluid hydration today, will D/C tonight patient has intermittent tachycardic and has a history of atrial fibrillation - EKG showed Sinus. patient on telemetry. tachycardia likely due to volume depletion /dehydration daily orthostasis. Nephrology consulted acute on chronic kidney disease. Maria R sees Dr. 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 repeat labs (2) Orthostatic hypotension: Code(s): I95.1 - Orthostatic hypotension Status: Acute Assessment and Plan: patient appears clinically volume depleted with uncontrolled diabetes mellitus received 1 L of IV fluid bolus in the ER continue IV fluid hydration today, will D/C tonight patient has intermittent tachycardic and has a history of atrial fibrillation - EKG showed Sinus. patient on telemetry. tachycardia likely due to volume depletion /dehydration fall precautions Will get orthostatic blood pressures daily as her blood pressure has been variable, systolics as low as 98 up to 136, with a heart rate of 61-108. Check a TSH, magnesium and phosphorus level. (3) Dehydration: Code(s): E86.0 - Dehydration Status: Acute Assessment and Plan: patient appears clinically volume depleted with uncontrolled diabetes mellitus received 1 L of IV fluid bolus in the ER continue IV fluid hydration today, will D/C tonight patient has intermittent tachycardic and has a history of atrial fibrillation - EKG showed Sinus. patient on telemetry. tachycardia likely due to volume depletion /dehydration fall precautions daily orthostatic vital signs Will discontinue her IV fluids today as she has received them for 24 hours, she is tolerating orals well, but admits that she does not remember to drink at home and probably will not remember when she gets home again. improving and patient working on better oral hydration (4) Type 2 diabetes mellitus with hyperglycemia: Qualifiers: Diabetes mellitus termite exterminator helper insulin use: without termite exterminator helper use Qualified Code(s): E11.65 - Type 2 diabetes mellitus with hyperglycemia Code(s): E11.65 - Type 2 diabetes mellitus with hyperglycemia Status: Acute Assessment and Plan: patient appears clinically volume depleted with uncontrolled diabetes mellitus hemoglobin A1c that is increased from 5.8 up to 14 now. on high-dose sliding scale insulin with Accu-Cheks a.c. HS. and add Lantus 10 units subq HS. Glucose was 140s up to 240s today. Continue the high-dose insulin sliding scale and her diabetic diet. (5) UTI (urinary tract infection): Qualifiers: Urinary tract infection type: site unspecified Hematuria presence: without hematuria Qualified Code(s): N39.0 - Urinary tract infection, site not specified Code(s): N39.0 - Urinary tract infection, site not specified Status: Acute Assessment and Plan: Continue her IV Rocephin while the urine cultures are pending her UA was positive for UTI Maria R sees Dr. 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 creatinine has improved today at 3.0 from yesterday at 3.4. Her baseline is in the 2-3 range. Georgi
[2021-04-23 08:16] LABS: Glucose Point of Care 148 mg/dl (65-105)
[2021-04-23] MEDS: FOLIC ACID 0.4 MG TABLET 0.8 MG PO (08:49)
[2021-04-23] MEDS: OMEGA 3 POLYUNSAT FATTY ACIDS 1 GM CAP 2 GM PO ×2 (08:49→16:58)
[2021-04-23 08:50] VITALS: PULSE 67
[2021-04-23] MEDS: ROSUVASTATIN 10 MG TABLET 20 MG PO (08:50)
[2021-04-23] MEDS: LORATADINE 10 MG TABLET PO (08:50)
[2021-04-23] MEDS: METOPROLOL TARTRATE 50 MG TAB BY MOUTH ×2 (08:50→21:28)
[2021-04-23] MEDS: APIXABAN 5 MG TABLET PO ×2 (08:51→16:58)
[2021-04-23] MEDS: ASPIRIN 81 MG ENTERIC TABLET PO (08:51)
[2021-04-23] MEDS: CYANOCOBALAMIN 1,000 MCG TABLET 1000 MCG PO (08:51)
--- NOTE | 2021-04-23 09:54 | PM.CNNEP ---
Assessment and Plan Assessment and plan (1) RICKIE (acute kidney injury): Code(s): N17.9 - Acute kidney failure, unspecified Status: Acute Assessment and Plan: presumably due to dehydration along with UTI creatinine a bit better by AM labs follow trend with IVF and antibiotics (2) Chronic kidney disease, stage IV (severe): Code(s): N18.4 - Chronic kidney disease, stage 4 (severe) Status: Chronic Assessment and Plan: baseline creatinine runs around 2.3 - 2.8mg/dl in the last year due to due to her diabetes, hypertension, vascular disease, and more importantly, recurrent nephrolithiasis and what essentially appears to be only one kidney providing functionality at this time (3) Acute UTI: Code(s): N39.0 - Urinary tract infection, site not specified Status: Acute Assessment and Plan: urinalysis highly suggestive follow-up on urine culture on antibiotics (4) Orthostatic hypotension: Code(s): I95.1 - Orthostatic hypotension Status: Acute Assessment and Plan: as noted by ER on IVFs recheck orthostatics later today if not tomorrow (5) Diabetes: Code(s): E11.9 - Type 2 diabetes mellitus without complications Status: Chronic Assessment and Plan: follow accuchecks glycemic control Will continue to follow. History of Present Illness Reason for Consult Consult date: 04/23/21 Reason for consult: acute renal failure (chronic kidney disease) Chief Complaint Chief complaint: Acute on Chronic Renal Failure,UTI,Hyperglycemia History of Present Illness Narrative: The patient is a 75-year-old female with past medical history as outlined below who presented from her PCP's office to the ER with not feeling right. For last few days if not longer she states that she has not been feeling very well. She cannot give specifics in terms of what she means her but was concerned that she may have some type of infection given the symptoms. She called her primary care physician with these issues and was seen in the office yesterday for further evaluation. evaluation in her PCPs office demonstrated evidence of orthostatic hypotension as well as possible dehydration. Routine blood tests also demonstrated her renal function was worse than baseline. For all these reasons she was directed to the emergency room for further testing. Workup and evaluation emergency room demonstrated the patient in no acute distress but not feeling very well. Routine blood test demonstrated acute kidney injury on top of her baseline kidney disease and evidence of volume depletion as well. She was somewhat tachycardic and although she has a history of atrial fibrillation, the concern was that her tachycardia was related to volume depletion. Her furthermore, urinalysis was highly suggestive of a urinary tract infection as well. Appropriate cultures were obtained, she was given a L of IV fluids in the emergency room and started on maintenance IV fluids, and started IV antibiotic therapy with subsequent admission to the hospital. Renal consultation was requested due to her acute kidney injury on top of her chronic kidney disease. The patient is familiar to me as I follow her in the outpatient setting for her known chronic kidney disease. Her baseline creatinine in the last year to has fluctuated anywhere from 2.3 -2.8 mg/dL thought to be secondary to her hypertension, diabetes, vascular disease, and age-related change along with her history of nephrolithiasis and possibly recurrent incomplete bladder emptying with an element of kidney disease progression as well. Review of Systems Review of Systems: Narrative: As per HPI. [facility] Past Medical History Medical History (Updated 04/23/21 @ 10:00 by Cristofer Schwarz MD) A-fib Benign essential hypertension Cancer of right breast status post radiation and chemotherapy Carotid bruit less than 50% stenosis
[2021-04-23 11:57] LABS: Glucose Point of Care 241 mg/dl (65-105)
[2021-04-23 12:00] VITALS: O2SAT 94
[2021-04-23] MEDS: INSULIN ASPART (*BKC) 100 UNITS/ML SUB-Q ×2 (12:03→17:06)
--- NOTE | 2021-04-23 13:19 | PCNSR ---
On 04/23/21, the student,Precious Rabago, provided care and completed [facility] documentation on this patient. I have reviewed the student's documentation and agree with the findings.
[2021-04-23 14:00] VITALS: BP 120/54; PULSE 65; RESP 14; TEMP 35.8; O2SAT 98
[2021-04-23 17:17] LABS: Glucose Point of Care 226 mg/dl (65-105)
[2021-04-23 20:53] VITALS: BP 135/72; PULSE 67; RESP 18; TEMP 36.1; O2SAT 96
[2021-04-23 21:28] VITALS: PULSE 68
[2021-04-23] MEDS: INSULIN GLARGINE (*BKC) 100 UNITS/ML 10 UNITS SUB-Q (21:28)
[2021-04-23 21:32] LABS: Glucose Point of Care 365 mg/dl (65-105)
[2021-04-23] MEDS: INSULIN ASPART (*BKC) 100 UNITS/ML 6 UNITS SUB-Q (22:08)
[2021-04-24] VITALS (8 sets, daily range): BP systolic 117–137; BP diastolic 58–64; PULSE 56–72; RESP 16–20; TEMP 36–36.6; O2SAT 96–99; BMI 34.2
[2021-04-24 03:36] LABS: Glucose Point of Care 220 mg/dl (65-105)
[2021-04-24 05:49] LABS: Basophils Percent Auto 0.3 % (0.2-1.2); Eosinophils Absolute Auto 0.1 K/mm3 (0-0.3); Eosinophils Percent Auto 0.7 % (0-4.4); Hematocrit 27.6 % (37.0-47.0); Hemoglobin 8.7 g/dL (12.0-15.0); Immature Granulocyte Absolute 0.04 K/mm3 (0.00-0.031); Immature Granulocyte Percent A 0.6 % (0-0.5); Lymphocytes Absolute Auto 2.07 K/mm3 (0.9-3.2); Mean Corpuscular HGB Conc 31.5 g/dl (32-36); Mean Corpuscular Hemoglobin 26.9 pg (26-34); Mean Corpuscular Volume 85.2 fl (80-100); Mean Platelet Volume 10.3 fl (7.4-10.4); Monocytes Absolute Auto 0.6 K/mm3 (0.1-0.6); Monocytes Percent Auto 7.9 % (2.6-8.5); Neutrophils Absolute Auto 4.4 K/mm3 (1.3-6.7); Neutrophils Percent Auto 61.5 % (45.5-73.1); Platelet Count Result 253 k/mm3 (150-375); Red Blood Count 3.24 M/mm3 (4.2-5.4); Red Cell Distribution Width 12.8 % (11.5-14.5); White Blood Count 7.1 K/mm3 (4.5-10.0)
[2021-04-24 05:56] LABS: Alanine Aminotransferase 13 U/L (4-35); Albumin Level 3.1 g/dL (3.5-5.1); Alkaline Phosphatase 54 U/L (38-126); Anion Gap 7 mmol/L (8-16); Aspartate Amino Transferase 26 U/L (14-36); Bilirubin,Total 0.4 mg/dL (0.2-1.3); Blood Urea Nitrogen 46 mg/dL (7-17); Carbon Dioxide 17 mmol/L (22-30); Chloride 114 mmol/L (98-107); Estimated CRCL calculation 20 ml/min; Estimated Glomerular Filt Rate 17; Glucose 236 mg/dL (65-105); Magnesium 1.9 mg/dL (1.6-2.3); Phosphorus 4.3 mg/dL (2.5-4.5); Potassium 3.9 mmol/L (3.4-5.0); Sodium 138 mmol/L (137-145)
[2021-04-24 07:11] LABS: Thyroid Stimulating Hormone Reflex 0.665 uIU/mL (0.465-4.68)
[2021-04-24 08:26] LABS: Glucose Point of Care 225 mg/dl (65-105)
[2021-04-24] MEDS: OMEGA 3 POLYUNSAT FATTY ACIDS 1 GM CAP 2 GM PO ×2 (09:16→17:27)
[2021-04-24] MEDS: FOLIC ACID 0.4 MG TABLET 0.8 MG PO (09:16)
[2021-04-24] MEDS: ASPIRIN 81 MG ENTERIC TABLET PO (09:17)
[2021-04-24] MEDS: ROSUVASTATIN 10 MG TABLET 20 MG PO (09:17)
[2021-04-24] MEDS: LORATADINE 10 MG TABLET PO (09:17)
[2021-04-24] MEDS: APIXABAN 5 MG TABLET PO ×2 (09:17→17:27)
[2021-04-24] MEDS: CYANOCOBALAMIN 1,000 MCG TABLET 1000 MCG PO (09:17)
[2021-04-24] MEDS: METOPROLOL TARTRATE 50 MG TAB BY MOUTH ×2 (09:18→20:11)
[2021-04-24] MEDS: INSULIN ASPART (*BKC) 100 UNITS/ML SUB-Q ×3 (09:20→17:28)
--- NOTE | 2021-04-24 12:29 | PM.IMPN ---
Progress Note: A&P Assessment and Plan (1) Acute on chronic kidney failure: Qualifiers: Acute renal failure type: unspecified Chronic kidney disease stage: stage 4 (severe) Qualified Code(s): N17.9 - Acute kidney failure, unspecified; N18.4 - Chronic kidney disease, stage 4 (severe) Code(s): N17.9 - Acute kidney failure, unspecified; N18.9 - Chronic kidney disease, unspecified Status: Acute Assessment and Plan: acute on chronic kidney disease stage 4. UTI based on UA, cultures pending creatinine has improved from 3.4 to 3.0 to 2.8 today. Her baseline is in the 2-3 range. received 1 L of IV fluid bolus in the ER TSH/Mag/Phos were all WNL. Nephrology consulted acute on chronic kidney disease. Maria R sees Dr. Schwarz for her outpatient fiber technologist as well. tolerating oral well and adequate intake (2) Orthostatic hypotension: Code(s): I95.1 - Orthostatic hypotension Status: Acute Assessment and Plan: patient appears clinically volume depleted with uncontrolled diabetes mellitus received 1 L of IV fluid bolus in the ER continue IV fluid hydration today, will D/C tonight patient has intermittent tachycardic and has a history of atrial fibrillation - EKG showed Sinus. patient on telemetry. tachycardia likely due to volume depletion /dehydration fall precautions Will get orthostatic blood pressures daily as her blood pressure has been variable, systolics as low as 98 up to 136, with a heart rate of 61-108. Check a TSH, magnesium and phosphorus level. (3) Dehydration: Code(s): E86.0 - Dehydration Status: Acute Assessment and Plan: patient appears clinically volume depleted with uncontrolled diabetes mellitus received 1 L of IV fluid bolus in the ER continue IV fluid hydration today, will D/C tonight patient has intermittent tachycardic and has a history of atrial fibrillation - EKG showed Sinus. patient on telemetry. tachycardia likely due to volume depletion /dehydration fall precautions daily orthostatic vital signs Will discontinue her IV fluids today as she has received them for 24 hours, she is tolerating orals well, but admits that she does not remember to drink at home and probably will not remember when she gets home again. improving and patient working on better oral hydration (4) Type 2 diabetes mellitus with hyperglycemia: Qualifiers: Diabetes mellitus long term care administrator insulin use: without long term care administrator use Qualified Code(s): E11.65 - Type 2 diabetes mellitus with hyperglycemia Code(s): E11.65 - Type 2 diabetes mellitus with hyperglycemia Status: Acute Assessment and Plan: patient appears clinically volume depleted with uncontrolled diabetes mellitus hemoglobin A1c that is increased from 5.8 up to 14 now. on high-dose sliding scale insulin with Accu-Cheks a.c. HS. and add Lantus 10 units subq HS. Glucose was up to 240s today. Continue the high-dose insulin sliding scale and her diabetic diet. takes Trajenta at home and knows that she will need to follow up with her PCP Dr. Maloney after her discharge to get her glucose levels better controlled. Increased her Lantus to 15 units from 10 units Q HS. (5) UTI (urinary tract infection): Qualifiers: Hematuria presence: without hematuria Urinary tract infection type: site unspecified Qualified Code(s): N39.0 - Urinary tract infection, site not specified Code(s): N39.0 - Urinary tract infection, site not specified Status: Acute Assessment and Plan: Continue her IV Rocephin while the urine cultures are pending, her UA was positive for UTI. Culture grew Gram negative bacilli , awaiting sensitivities now. Maria R sees Dr. Schwarz for her outpatient fiber technologist as well. creatinine has improved today at 3.0 from yesterday at 3.4. Her baseline is in the 2-3 range. Will keep her overnight to see if renal function continues to improve
--- NOTE | 2021-04-24 12:34 | PM.PNNEP ---
Progress Note: A&P Assessment and Plan (1) RICKIE (acute kidney injury): Code(s): N17.9 - Acute kidney failure, unspecified Status: Acute Assessment and Plan: presumably due to dehydration along with UTI creatinine improving if not close to baseline follow trend with IVF and antibiotics (2) Chronic kidney disease, stage IV (severe): Code(s): N18.4 - Chronic kidney disease, stage 4 (severe) Status: Chronic Assessment and Plan: baseline creatinine runs around 2.3 - 2.8mg/dl in the last year due to due to her diabetes, hypertension, vascular disease, and more importantly, recurrent nephrolithiasis and what essentially appears to be only one kidney providing functionality at this time (3) Acute UTI: Code(s): N39.0 - Urinary tract infection, site not specified Status: Acute Assessment and Plan: urinalysis highly suggestive follow-up on urine culture - gram negative bacilli present on antibiotics (4) Orthostatic hypotension: Code(s): I95.1 - Orthostatic hypotension Status: Acute Assessment and Plan: as noted by ER on IVFs repeat orthostatics have improved (5) Diabetes: Code(s): E11.9 - Type 2 diabetes mellitus without complications Status: Chronic Assessment and Plan: follow accuchecks glycemic control Will continue to follow. Subjective Date/time seen: 04/24/21 12:34 Appears to be doing better at this time; no new issues or problems voiced; no issues/events overnight or earlier this AM; daughter at bedside and we discussed the situation; overall, she states that she does feel better. Exam Narrative: Exam Narrative: General: WD/WN female in NAD Heart: normal S1 and S2; no rub Lungs: clear to auscultation Abdomen: soft, nontender, nondistended, positive bowel sounds Extremities: no cyanosis or clubbing; no edema Skin: warm and dry Objective Data Vital Signs Vital Signs: Vital Signs Temp Pulse Resp BP Pulse Ox 04/24/21 09:47 117/62 04/24/21 09:46 133/62 04/24/21 09:45 137/58 L 04/24/21 09:18 66 04/24/21 04:22 36.6 C 56 L 16 117/59 L 96 04/23/21 21:28 68 04/23/21 20:53 36.1 C L 67 18 135/72 96 Intake/Output Intake/Output: Intake & Output 04/21/21 04/22/21 04/23/21 04/24/21 23:59 23:59 23:59 23:59 Intake Total 1050 3266 1188 Output Total 450 Balance 1050 2816 1188 Meds/Results Medications: Active Medications Generic Name Dose Route Start Last Admin Trade Name Michaelq PRN Reason Stop Dose Admin Acetaminophen 650 mg 04/22/21 17:54 Acetaminophen 325 Mg Tablet PO Q4H PRN Mild Pain (1-3) or Fever Apixaban 5 mg 04/23/21 09:00 04/24/21 09:17 Apixaban 5 Mg Tablet PO 5 mg BID BIANKA Administration Aspirin 81 mg 04/23/21 09:00 04/24/21 09:17 Aspirin 81 Mg Enteric Tablet PO 81 mg DAILY BIANKA Administration Cyanocobalamin 1,000 mcg 04/23/21 09:00 04/24/21 09:17 Cyanocobalamin 1,000 Mcg Tablet PO 1,000 mcg DAILY BIANKA Administration Dextrose 12.5 gm 04/22/21 20:48 Dextrose 50% 25 Gm/50 Ml Syringe IV PUSH PRN PRN Hypoglycemia Protocol Fish Oil 2 gm 04/23/21 09:00 04/24/21 09:16 [place] 3 Polyunsat Fatty Acids 1 Gm Cap PO 2 gm BID BIANKA Administration Folic Acid 0.8 mg 04/23/21 09:00 04/24/21 09:16 Folic Acid 0.4 Mg Tablet PO 0.8 mg QAM BIANKA Administration Glucagon 1 mg 04/22/21 20:48 Glucagon For Inj 1 Mg Vial IM PRN PRN Hypoglycemia Protocol Glucose 15 gm 04/22/21 20:48 Glucose Oral Gel 15 Gm Of Glucse In 37.5 Gm Tube PO PRN PRN Hypoglycemia Protocol Ceftriaxone Sodium/Dextrose 1 gm in 50 mls @ 100 mls/hr 04/23/21 19:00 04/23/21 19:29 Rocephin 1 Gm/D5w 50 Ml IVPB Infused Q24H BIANKA Infusion Dextrose 1,000 mls @ 100 mls/hr 04/22/21 20:48 Dextrose 5% 1,000 Ml IVPB PRN PRN Hypoglycemia
[2021-04-24 12:46] LABS: Glucose Point of Care 349 mg/dl (65-105)
[2021-04-24 17:07] LABS: Glucose Point of Care 299 mg/dl (65-105)
[2021-04-24] MEDS: INSULIN GLARGINE (*BKC) 100 UNITS/ML 20 UNITS SUB-Q (20:17)
[2021-04-24 20:49] LABS: Glucose Point of Care 289 mg/dl (65-105)
[2021-04-25 05:13] VITALS: BP 130/56; PULSE 60; RESP 20; TEMP 36.1; O2SAT 99
[2021-04-25 06:21] LABS: Hematocrit 27.8 % (37.0-47.0); Hemoglobin 8.8 g/dL (12.0-15.0); Mean Corpuscular HGB Conc 31.7 g/dl (32-36); Mean Corpuscular Hemoglobin 27.3 pg (26-34); Mean Corpuscular Volume 86.3 fl (80-100); Mean Platelet Volume 10.2 fl (7.4-10.4); Platelet Count Result 234 k/mm3 (150-375); Red Blood Count 3.22 M/mm3 (4.2-5.4); Red Cell Distribution Width 12.8 % (11.5-14.5); White Blood Count 8.3 K/mm3 (4.5-10.0)
[2021-04-25 06:30] LABS: Anion Gap 8 mmol/L (8-16); Blood Urea Nitrogen 41 mg/dL (7-17); Calcium 9.2 mg/dL (8.4-10.2); Carbon Dioxide 17 mmol/L (22-30); Chloride 113 mmol/L (98-107); Estimated CRCL calculation 23 ml/min; Estimated Glomerular Filt Rate 20; Glucose 203 mg/dL (65-105); Potassium 3.9 mmol/L (3.4-5.0); Sodium 138 mmol/L (137-145)
[2021-04-25 07:43] LABS: Glucose Point of Care 198 mg/dl (65-105)
[2021-04-25 08:23] VITALS: PULSE 86
[2021-04-25] MEDS: ROSUVASTATIN 10 MG TABLET 20 MG PO (08:23)
[2021-04-25] MEDS: METOPROLOL TARTRATE 50 MG TAB BY MOUTH ×2 (08:23→21:06)
[2021-04-25] MEDS: OMEGA 3 POLYUNSAT FATTY ACIDS 1 GM CAP 2 GM PO ×2 (08:23→17:16)
[2021-04-25] MEDS: FOLIC ACID 0.4 MG TABLET 0.8 MG PO (08:24)
[2021-04-25] MEDS: LORATADINE 10 MG TABLET PO (08:24)
[2021-04-25] MEDS: ASPIRIN 81 MG ENTERIC TABLET PO (08:24)
[2021-04-25] MEDS: CYANOCOBALAMIN 1,000 MCG TABLET 1000 MCG PO (08:24)
[2021-04-25] MEDS: APIXABAN 5 MG TABLET PO ×2 (08:24→17:16)
[2021-04-25] MEDS: SODIUM BICARBONATE TAB 650 MG TABLET PO ×2 (09:31→17:16)
--- NOTE | 2021-04-25 10:13 | PM.IMPN ---
Progress Note: A&P Assessment and Plan (1) Acute on chronic kidney failure: Qualifiers: Acute renal failure type: unspecified Chronic kidney disease stage: stage 4 (severe) Qualified Code(s): N17.9 - Acute kidney failure, unspecified; N18.4 - Chronic kidney disease, stage 4 (severe) Code(s): N17.9 - Acute kidney failure, unspecified; N18.9 - Chronic kidney disease, unspecified Status: Acute Assessment and Plan: IMPROVED. Back to Baseline. acute on chronic kidney disease stage 4. UTI based on UA, cultures pending creatinine has improved from 3.4 to 3.0 to 2.8 to 2.4 today. Her baseline is in the 2-3 range. received 1 L of IV fluid bolus in the ER TSH/Mag/Phos were all WNL. Nephrology consulted acute on chronic kidney disease. Maria R sees Dr. Schwarz for her outpatient heavy equipment operator as well. tolerating oral well and adequate intake (2) Orthostatic hypotension: Code(s): I95.1 - Orthostatic hypotension Status: Acute Assessment and Plan: RESOLVED. patient appears clinically volume depleted with uncontrolled diabetes mellitus at admission - now baseline and adequately hydrated. received 1 L of IV fluid bolus in the ER continue oral fluid hydration patient on telemetry. resolved - tachycardia likely due to volume depletion /dehydration fall precautions stable and WNL orthostatic blood pressures WNL - TSH, magnesium and phosphorus level. (3) Dehydration: Code(s): E86.0 - Dehydration Status: Acute Assessment and Plan: RESOLVED. patient appears clinically volume depleted with uncontrolled diabetes mellitus received 1 L of IV fluid bolus in the ER continue IV fluid hydration today, will D/C tonight patient has intermittent tachycardic and has a history of atrial fibrillation - EKG showed Sinus. patient on telemetry. resolved - tachycardia likely due to volume depletion /dehydration fall precautions daily orthostatic vital signs - stable. tolerating orals well, but admits that she does not remember to drink at home and probably will not remember when she gets home again. improving and patient working on better oral hydration (4) Type 2 diabetes mellitus with hyperglycemia: Qualifiers: Diabetes mellitus terminal make up operator insulin use: without alf use Qualified Code(s): E11.65 - Type 2 diabetes mellitus with hyperglycemia Code(s): E11.65 - Type 2 diabetes mellitus with hyperglycemia Status: Acute Assessment and Plan: BETTER CONTROLLED. Plan for discharge. patient appears clinically volume depleted with uncontrolled diabetes mellitus hemoglobin A1c that is increased from 5.8 up to 14 now. on high-dose sliding scale insulin with Accu-Cheks a.c. HS. and continue Lantus 20 units subq HS. Glucose was improved 189 today Continue the high-dose insulin sliding scale and her diabetic diet. takes Trajenta at home and knows that she will need to follow up with her PCP Dr. Maloney after her discharge to get her glucose levels better controlled. She has had her diabetes education and her glucometer is at bedside. She stated that she is comfortable using it and practicing with it at home. She also was discharged with a glucometer in May of 2020, but stated that it stopped working for her. Her morning glucose level was better today at 198, after increasing from 10 to 20 Lantus. I did educate patient regarding Lantus, its long lasting effects, and the need for more glucose checks and concern if she stops eating or had a stomach flu (N/V/D) while on Lantus insulin. Will continue her on Trajenta at discharge and she will need to follow up with her PCP Dr. Maloney after her discharge to get her glucose levels better controlled. Continue Lantus at 20 units Q HS. Continue her diabetic diet. (5) UTI (urinary tract infection): Qualifiers: Hematuria presence: without hematuria Urinary tract infection type: site unspeci
[2021-04-25 11:36] LABS: Glucose Point of Care 321 mg/dl (65-105)
[2021-04-25] MEDS: INSULIN ASPART (*BKC) 100 UNITS/ML SUB-Q ×2 (12:00→17:16)
--- NOTE | 2021-04-25 12:03 | PM.PNNEP ---
Progress Note: A&P Assessment and Plan (1) RICKIE (acute kidney injury): Code(s): N17.9 - Acute kidney failure, unspecified Status: Acute Assessment and Plan: presumably due to dehydration along with UTI creatinine improving if not close to baseline follow trend with IVF and antibiotics (2) Chronic kidney disease, stage IV (severe): Code(s): N18.4 - Chronic kidney disease, stage 4 (severe) Status: Chronic Assessment and Plan: baseline creatinine runs around 2.3 - 2.8mg/dl in the last year due to due to her diabetes, hypertension, vascular disease, recurrent nephrolithiasis/UTIs start oral sodium bicarbonate for metabolic acidosis (3) Acute UTI: Code(s): N39.0 - Urinary tract infection, site not specified Status: Acute Assessment and Plan: urine culture with [place] Infectious Disease consulted given her sensitivities to antibiotics in the past (4) Orthostatic hypotension: Code(s): I95.1 - Orthostatic hypotension Status: Acute Assessment and Plan: as noted by ER on IVFs repeat orthostatics have improved (5) Diabetes: Code(s): E11.9 - Type 2 diabetes mellitus without complications Status: Chronic Assessment and Plan: follow accuchecks glycemic control Will continue to follow. Subjective Date/time seen: 04/25/21 12:03 Continues to make slow and steady improvement; UTI culture results noted and Infectious Disease consulted for recommendations given her sensitivity to antibiotics in general; no apparent distress noted. Exam Narrative: Exam Narrative: General: WD/WN female in NAD Heart: normal S1 and S2; no rub Lungs: clear to auscultation Abdomen: soft, nontender, nondistended, positive bowel sounds Extremities: no cyanosis or clubbing; no edema Skin: warm and intact Objective Data Vital Signs Vital Signs: Vital Signs Temp Pulse Resp BP Pulse Ox 04/25/21 08:23 86 04/25/21 05:13 36.1 C L 60 20 130/56 L 99 04/24/21 20:11 72 04/24/21 20:06 36.1 C L 70 18 132/64 98 04/24/21 14:00 36.0 C L 64 20 121/63 99 Intake/Output Intake/Output: Intake & Output 04/22/21 04/23/21 04/24/21 04/25/21 23:59 23:59 23:59 23:59 Intake Total 1050 3266 1738 720 Output Total 450 300 700 Balance 1050 2816 1438 20 Meds/Results Medications: Active Medications Generic Name Dose Route Start Last Admin Trade Name Brayden PRN Reason Stop Dose Admin Acetaminophen 650 mg 04/22/21 17:54 Acetaminophen 325 Mg Tablet PO Q4H PRN Mild Pain (1-3) or Fever Apixaban 5 mg 04/23/21 09:00 04/25/21 08:24 Apixaban 5 Mg Tablet PO 5 mg BID BIANKA Administration Aspirin 81 mg 04/23/21 09:00 04/25/21 08:24 Aspirin 81 Mg Enteric Tablet PO 81 mg DAILY BIANKA Administration Cyanocobalamin 1,000 mcg 04/23/21 09:00 04/25/21 08:24 Cyanocobalamin 1,000 Mcg Tablet PO 1,000 mcg DAILY BIANKA Administration Dextrose 12.5 gm 04/22/21 20:48 Dextrose 50% 25 Gm/50 Ml Syringe IV PUSH PRN PRN Hypoglycemia Protocol Fish Oil 2 gm 04/23/21 09:00 04/25/21 08:23 [place] 3 Polyunsat Fatty Acids 1 Gm Cap PO 2 gm BID BIANKA Administration Folic Acid 0.8 mg 04/23/21 09:00 04/25/21 08:24 Folic Acid 0.4 Mg Tablet PO 0.8 mg QAM BIANKA Administration Glucagon 1 mg 04/22/21 20:48 Glucagon For Inj 1 Mg Vial IM PRN PRN Hypoglycemia Protocol Glucose 15 gm 04/22/21 20:48 Glucose Oral Gel 15 Gm Of Glucse In 37.5 Gm Tube PO PRN PRN Hypoglycemia Protocol Dextrose 1,000 mls @ 100 mls/hr 04/22/21 20:48 Dextrose 5% 1,000 Ml IVPB PRN PRN Hypoglycemia Protocol Insulin Aspart 4 - 8 units 04/23/21 08:00 04/25/21 08:03 Insulin Aspart (*Bkc) 100 Units/Ml SUB-Q Not Given TIDWM BIANKA Protocol Insulin Glargine 20 units 04/24/21 21:00 04/24/21 20:17 Insulin Glargine (*Bkc) 10
[2021-04-25 14:00] VITALS: BP 130/68; PULSE 62; RESP 24; TEMP 35.7; O2SAT 97
[2021-04-25 16:06] LABS: Glucose Point of Care 240 mg/dl (65-105)
--- NOTE | 2021-04-25 18:03 | WPDINFPN2 ---
Progress Note: A&P Assessment and Plan (1) Abnormal finding on urinalysis: Code(s): R82.90 - Unspecified abnormal findings in urine Status: Acute Assessment and Plan: Asymptomatic bacteriuria REC No further Rx from my standpoint. She can resume Dr. Agosto's Rx for suppressive cephalexin Subjective Date/time seen: 04/25/21 18:03 Objective Data Vital Signs Vital Signs: Vital Signs - 24 hr 04/24/21 20:06 04/24/21 20:11 04/25/21 05:13 Temperature 36.1 C L 36.1 C L Pulse Rate 70 72 60 Respiratory Rate 18 20 Blood Pressure 132/64 130/56 L Pulse Oximetry 98 99 04/25/21 08:23 04/25/21 14:00 Temperature 35.7 C L Pulse Rate 86 62 Respiratory Rate 24 H Blood Pressure 130/68 Pulse Oximetry 97 Intake/Output Intake/Output: Intake & Output 04/22/21 04/23/21 04/24/21 04/25/21 23:59 23:59 23:59 23:59 Intake Total 1050 3266 1738 1620 Output Total 020 466 3603 Balance 1050 2816 1438 620 Meds/Results Medications: Active Medications Generic Name Dose Route Start Last Admin Trade Name Freq PRN Reason Stop Dose Admin Acetaminophen 650 mg 04/22/21 17:54 Acetaminophen 325 Mg Tablet PO Q4H PRN Mild Pain (1-3) or Fever Apixaban 5 mg 04/23/21 09:00 04/25/21 17:16 Apixaban 5 Mg Tablet PO 5 mg BID BIANKA Administration Aspirin 81 mg 04/23/21 09:00 04/25/21 08:24 Aspirin 81 Mg Enteric Tablet PO 81 mg DAILY BIANKA Administration Cyanocobalamin 1,000 mcg 04/23/21 09:00 04/25/21 08:24 Cyanocobalamin 1,000 Mcg Tablet PO 1,000 mcg DAILY BIANKA Administration Dextrose 12.5 gm 04/22/21 20:48 Dextrose 50% 25 Gm/50 Ml Syringe IV PUSH PRN PRN Hypoglycemia Protocol Fish Oil 2 gm 04/23/21 09:00 04/25/21 17:16 [place] 3 Polyunsat Fatty Acids 1 Gm Cap PO 2 gm BID BIANKA Administration Folic Acid 0.8 mg 04/23/21 09:00 04/25/21 08:24 Folic Acid 0.4 Mg Tablet PO 0.8 mg QAM BIANKA Administration Glucagon 1 mg 04/22/21 20:48 Glucagon For Inj 1 Mg Vial IM PRN PRN Hypoglycemia Protocol Glucose 15 gm 04/22/21 20:48 Glucose Oral Gel 15 Gm Of Glucse In 37.5 Gm Tube PO PRN PRN Hypoglycemia Protocol Dextrose 1,000 mls @ 100 mls/hr 04/22/21 20:48 Dextrose 5% 1,000 Ml IVPB PRN PRN Hypoglycemia Protocol Insulin Aspart 4 - 8 units 04/23/21 08:00 04/25/21 17:16 Insulin Aspart (*Bkc) 100 Units/Ml SUB-Q 4 units TIDWM BIANKA Administration Protocol Insulin Glargine 20 units 04/24/21 21:00 04/24/21 20:17 Insulin Glargine (*Bkc) 100 Units/Ml SUB-Q 20 units HS BIANKA Administration Insulin Human NPH 3 units 04/26/21 08:00 Insulin Human Nph (*Bkc) 100 Units/Ml SUB-Q 0800,1700 [facility] Loratadine 10 mg 04/23/21 09:00 04/25/21 08:24 Loratadine 10 Mg Tablet PO 10 mg DAILY BIANKA Administration Metoprolol Tartrate 50 mg 04/22/21 21:40 04/25/21 08:23 Metoprolol Tartrate 50 Mg Tab BY MOUTH 50 mg Q12HR BIANKA Administration Nitroglycerin 0.4 mg 04/22/21 20:49 Nitroglycerin Sl 0.4 Mg Tablet SUBLINGUAL Q5M PRN Chest Pain Non-Formulary Medication 8 mg 04/23/21 09:00 Fesoterodine [Toviaz] PO 05/23/21 09:01 DAILY [facility] Rosuvastatin Calcium 20 mg 04/23/21 09:00 04/25/21 08:23 Rosuvastatin 10 Mg Tablet PO 20 mg DAILY BIANKA Administration Sodium Bicarbonate 650 mg 04/25/21 09:00 04/25/21 17:16 Sodium Bicarbonate Tab 650 Mg Tablet PO 650 mg BID BIANKA Administration Labs Labs: Laboratory Results - last 24 hr 04/24/21 04/25/21 04/25/21 20:16 06:00 06:00 WBC 8.3 RBC 3.22 L Hgb 8.8 L Hct 27.8 L MCV 86.3 MCH 27.3 MCHC 31.7 L RDW 12.8 Plt Count 234 MPV 10.2 Sodium 138 Potassium 3.9 Chloride 113 H Carbon Dioxide 17 L Anion Gap 8 BUN 41 H Creatinine 2.40 H Estim Creat Clear Calc 23 Estimated GFR 20 L Glucose 203 H POC [facility]
[2021-04-25 20:18] VITALS: BP 134/54; PULSE 62; RESP 18; TEMP 36.2; O2SAT 98
[2021-04-25 20:51] LABS: Glucose Point of Care 263 mg/dl (65-105)
[2021-04-25 21:06] VITALS: PULSE 64
[2021-04-25] MEDS: INSULIN GLARGINE (*BKC) 100 UNITS/ML 20 UNITS SUB-Q (21:07)
--- NOTE | 2021-04-25 21:17 | CONS_ITS ---
DATE OF CONSULTATION: 04/25/2021 REASON FOR CONSULTATION: Abnormal UA. HISTORY OF PRESENT ILLNESS: A 75-year-old female with multiple kidney stones in the past. She also has a chronic urinary incontinence, which is the overflow and urge nature. She does have urinary urgency on a chronic basis. She has had no acute voiding symptoms. Recently, she presented to the hospital with weakness, was found to have renal insufficiency and hyperglycemia. For unknown reasons, a urinalysis was obtained, was abnormal. She was given ceftriaxone, but consultation now requested. No fever, chills, sweats. She is on cephalexin through Dr. Miller apparently for suppression. She has had no gross hematuria in recent weeks to months. ALLERGIES: SULFA CAUSED ITCHING. HABITS: See record. PRESENT MEDICATIONS: List reviewed. No immunosuppressants. PAST MEDICAL HISTORY: Extensive including pertinent positives of stress incontinence, overactive bladder, type 2 diabetes mellitus, stage III renal insufficiency. Others listed. FAMILY HISTORY: Not pertinent to her present illness. SOCIAL HISTORY: Lives with her daughter. She is , retired. REVIEW OF SYSTEMS: , respiratory, endocrine, constitutional, GI, otherwise negative. PHYSICAL EXAMINATION: GENERAL: Elderly female, appears her actual age. No acute distress. VITAL SIGNS: Normal. She has been afebrile since arrival. SKIN: Warm and dry. EENT: Conjunctivae are normal. There is no icterus. LUNGS: Clear to auscultation and percussion. CARDIAC: Regular rate and rhythm. No murmurs or gallops. ABDOMEN: Nontender, soft. No organomegaly. No masses. EXTREMITIES: No edema. LABORATORY DATA: White count has been consistently normal. Urinalysis with multiple squamous cells. Other findings as reviewed by myself. Her urine culture with a Serratia marcescens similar to prior 06/12/2020 culture. Her BUN is 41, creatinine 2.4, and she has hyperglycemia. RADIOLOGY: Not repeated. Most recent ultrasound from May 2020, mild right hydronephrosis and left kidney stones. ASSESSMENT: 1. Asymptomatic bacteriuria. 2. Chronic renal insufficiency. 3. Nephrolithiasis, not active nor causing acute infection. RECOMMENDATIONS: 1. Glycemic control as you are doing. 2. No further antibiotics from my standpoint, she can renew her cephalexin if still being administered by Dr. Miller. 3. Okay for discharge. Thank you for asking me to see her. TAHIRA HARMON M.D. STRICKLER ATTENDANT STRICKLER ATTENDANT D Levi MT: Laquita
[2021-04-25] MEDS: ACETAMINOPHEN 325 MG TABLET 650 MG PO (23:47)
[2021-04-26 05:29] VITALS: BP 116/56; PULSE 58; RESP 16; TEMP 36.4; O2SAT 100
[2021-04-26 08:05] VITALS: BP 137/71; PULSE 62
[2021-04-26] MEDS: FOLIC ACID 0.4 MG TABLET 0.8 MG PO (08:08)
[2021-04-26] MEDS: CYANOCOBALAMIN 1,000 MCG TABLET 1000 MCG PO (08:08)
[2021-04-26] MEDS: APIXABAN 5 MG TABLET PO (08:08)
[2021-04-26] MEDS: ROSUVASTATIN 10 MG TABLET 20 MG PO (08:08)
[2021-04-26] MEDS: SODIUM BICARBONATE TAB 650 MG TABLET PO (08:08)
[2021-04-26] MEDS: METOPROLOL TARTRATE 50 MG TAB BY MOUTH (08:09)
[2021-04-26] MEDS: ASPIRIN 81 MG ENTERIC TABLET PO (08:09)
[2021-04-26] MEDS: LORATADINE 10 MG TABLET PO (08:09)
[2021-04-26] MEDS: OMEGA 3 POLYUNSAT FATTY ACIDS 1 GM CAP 2 GM PO (08:09)
[2021-04-26 09:00] LABS: Glucose Point of Care 210 mg/dl (65-105)
[2021-04-26] MEDS: INSULIN HUMAN NPH (*BKC) 100 UNITS/ML SUB-Q (09:24)
[2021-04-26] MEDS: INSULIN ASPART (*BKC) 100 UNITS/ML SUB-Q ×2 (09:26→12:47)
--- NOTE | 2021-04-26 11:18 | PM.DS ---
DS: Admitting Diagnosis Admitting Diagnosis Admitting Diagnosis: acute on chronic kidney failure orthostatic hypotension dehydration uncontrolled diabetes DS: Discharge Diagnosis Discharge Diagnosis (1) Acute on chronic kidney failure: Qualifiers: Acute renal failure type: unspecified Chronic kidney disease stage: stage 4 (severe) Qualified Code(s): N17.9 - Acute kidney failure, unspecified; N18.4 - Chronic kidney disease, stage 4 (severe) Code(s): N17.9 - Acute kidney failure, unspecified; N18.9 - Chronic kidney disease, unspecified Status: Acute Assessment and Plan: IMPROVED. Back to Baseline. acute on chronic kidney disease stage 4. UTI based on UA, cultures pending creatinine has improved from 3.4 to 3.0 to 2.8 to 2.4 Her baseline is in the 2-3 range. received 1 L of IV fluid bolus in the ER TSH/Mag/Phos were all WNL. Nephrology consulted acute on chronic kidney disease. Maria R sees Dr. 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 tolerating oral well and adequate intake (2) Orthostatic hypotension: Code(s): I95.1 - Orthostatic hypotension Status: Acute Assessment and Plan: RESOLVED. patient appears clinically volume depleted with uncontrolled diabetes mellitus at admission - now baseline and adequately hydrated. received 1 L of IV fluid bolus in the ER continue oral fluid hydration patient on telemetry. resolved - tachycardia likely due to volume depletion /dehydration fall precautions stable and WNL orthostatic blood pressures WNL - TSH, magnesium and phosphorus level. (3) Dehydration: Code(s): E86.0 - Dehydration Status: Acute Assessment and Plan: RESOLVED. patient appears clinically volume depleted with uncontrolled diabetes mellitus received 1 L of IV fluid bolus in the ER continue IV fluid hydration today, will D/C tonight patient has intermittent tachycardic and has a history of atrial fibrillation - EKG showed Sinus. patient on telemetry. resolved - tachycardia likely due to volume depletion /dehydration fall precautions daily orthostatic vital signs - stable. tolerating orals well, but admits that she does not remember to drink at home and probably will not remember when she gets home again. improving and patient working on better oral hydration (4) Type 2 diabetes mellitus with hyperglycemia: Qualifiers: Diabetes mellitus detention insulin use: without detention use Qualified Code(s): E11.65 - Type 2 diabetes mellitus with hyperglycemia Code(s): E11.65 - Type 2 diabetes mellitus with hyperglycemia Status: Acute Assessment and Plan: BETTER CONTROLLED. Plan for discharge. patient appears clinically volume depleted with uncontrolled diabetes mellitus hemoglobin A1c that is increased from 5.8 up to 14 on high-dose sliding scale insulin with Accu-Cheks a.c. HS. and continue Lantus 20 units subq HS. Glucose was improved 189 today Continue the high-dose insulin sliding scale and her diabetic diet. takes Trajenta at home and knows that she will need to follow up with her PCP Dr. Maloney after her discharge to get her glucose levels better controlled. She has had her diabetes education and her glucometer is at bedside. She stated that she is comfortable using it and practicing with it at home. She also was discharged with a glucometer in May of 2020, but stated that it stopped working for her. Her morning glucose level was better today at 198, after increasing from 10 to 20 Lantus. I did educate patient regarding Lantus, its long lasting effects, and the need for more glucose checks and concern if she stops eating or had a stomach flu (N/V/D) while on Lantus insulin. Will continue her on Trajenta at discharge and she will need to follow up with her PCP Dr. Maloney after her discharge to get her glucose levels better controlled. Continue Lantus at 20 units Q HS. Continue her diabe
[2021-04-26 12:17] LABS: Glucose Point of Care 268 mg/dl (65-105)
== END 2021-04-26 13:45 | disposition home or self-care (01) | DRG 683 ==
LOC: ANHED 18:03 → ANH3MED 19:21
PROVIDERS: Internal Medicine; Nurse Practitioner; Admitting Provider Internal Medicine; Emergency Provider Emergency Medicine; PCP Internal Medicine; Visit Provider Internal Medicine
DX: N17.9 Acute kidney failure, unspecified (principal); N39.0 Urinary tract infection, site not specified; I95.1 Orthostatic hypotension; E86.0 Dehydration; E11.65 Type 2 diabetes mellitus with hyperglycemia; N32.81 Overactive bladder; E11.22 Type 2 diabetes mellitus with diabetic chronic kidney disease; N18.4 Chronic kidney disease, stage 4 (severe); R32 Unspecified urinary incontinence
CPT/HCPCS: 36415; 80048; 80053; 80061; 81001; 82607; 82746; 82948; 83036; 83735; 84100; 84443; 85025; 85027; 87077; 87086; 87186; 93005; 96361; 96365; 99285; A9270; G0378; J0696; J1815; J7030

== ENCOUNTER 2021-07-04 14:37 | Inpatient (IN) | payer MEDICARE, OTHER, SELFPAY ==
[2021-07-04] VITALS (33 sets, daily range): BP systolic 160–210; BP diastolic 73–91; PULSE 45–54; RESP 9–23; TEMP 36.2; O2SAT 88–100
--- NOTE | ~2021-07-04 | XR_ITS ---
XR knee LT 3V 07/04/2021 19:03 Indication: Left knee pain after fall Procedure: 4 views left knee Comparison: No prior studies for comparison. Findings: There is severe osteoarthritis of the left knee. Small joint effusion. No acute fracture or traumatic malalignment. No foreign bodies. Impression: 1: No acute fracture. Reviewed, dictated and finalized at location A. Impression: 1: No acute fracture.
--- NOTE | ~2021-07-04 | CT_ITS ---
EXAMINATION: CT thoracic lumbar wo con DATE: 07/04/2021 19:12 INDICATION: Status post fall. Back pain. TECHNIQUE: Computed tomography (CT) of the thoracic and lumbar was performed without intravenous cont rast. The dose-length product was 2072.67 mGy-cm. Automated exposure control and iterative reconstruc tion technique were employed. COMPARISON: CT dated 02/28/2020 FINDINGS: There is an acute burst fracture of L3 with approximately 20% loss of vertebral body height . There is subtle retropulsion into the spinal canal. There is subtle soft tissue surrounding the L3 vertebra, likely hemorrhage. There is atherosclerosis of the aorta. There is a 4.3 cm right adrenal m ass, likely adenoma. There is dependent atelectasis in the lung bases. Cardiomegaly. There is pericar dial effusion. Trace pleural effusions. Mild thoracic spondylosis with accentuated kyphosis. There is degenerative disc disease at L5-S1. IMPRESSION: 1. Acute L3 burst fracture with approximately 20% loss of vertebral body height. There is no signific ant spinal canal stenosis. There is approximately 2-3 mm retropulsion of the vertebra posteriorly. 2: Low-density right adrenal mass measuring 4.3 cm, most likely benign adenoma. 3: Cardiomegaly with pericardial effusion. Reviewed, dictated and finalized at location A. IMPRESSION: 1. Acute L3 burst fracture with approximately 20% loss of vertebral body height . There is no significant spinal canal stenosis. There is approximately 2-3 mm retropulsion of the vertebra posteriorly. 2: Low-density right adrenal mass measuring 4.3 cm, most likely benign adenoma. 3: Cardiomegaly with pericardial effusion.
--- NOTE | ~2021-07-04 | MR_ITS ---
EXAMINATION: MR brain/brain stem wo con EXAM DATE: 07/08/2021 17:47 INDICATION: AMS/Confusion/Rule out CVA . TECHNIQUE: Magnetic resonance imaging (MRI) of the brain/brain stem obtained without contrast. Sagitt al T1, axial diffusion sequences obtained. Other sequences reportedly not obtained, patient was unab le to hold still for this examination reportedly due to back pain. Correlation is made to head CT fro m yesterday. FINDINGS: Study is limited due to patient motion. No regions of restricted diffusion to suggest acute infarction. No evidence of extra-axial collections, brain mass or obstructive hydrocephalus. IMPRESSION: Limited exam. No acute infarction suspected. Reviewed, dictated and finalized at location B.
--- NOTE | ~2021-07-04 | CT_ITS ---
EXAMINATION: CT brain wo con EXAM DATE: 07/04/2021 22:12 INDICATION: Fall. Head injury. TECHNIQUE: Spiral CT of the head was performed without contrast. Axial, coronal and sagittal images were reviewed. The dose-length product (DLP) for this examination was 605.33 mGy-cm. The exposure w as tailored according to patient size, and iterative reconstruction (ASIR) was used as additional dos e reduction technique. Comparison is made to prior examination from 06/12/2020. FINDINGS: There is no acute intraparenchymal hemorrhage. No evidence of intraparenchymal brain mass lesion. No evidence of acute infarction. Please note that initial head CT has limited sensitivity f or small or acute infarctions. There is mild to moderate periventricular and subcortical hypodensity, nonspecific but probably related to small vessel ischemic disease. There is mild to moderate promi nence of the sulci and ventricles related to cerebral atrophy. There is intracranial carotid arteri osclerosis. There are no extra-axial collections. There is no mass effect or midline shift. Patien t has had right-sided ocular lens surgery. Small posterior scalp contusion/hematoma. The visualized sinuses and mastoid air cells are well aerated. IMPRESSION: 1. No acute intracranial findings. 2. Chronic age related findings. 3. Small posterior scalp contusion and hematoma. Reviewed, dictated and finalized at location A.
--- NOTE | ~2021-07-04 | XR_ITS ---
XR femur LT min 2V 07/05/2021 15:13 INDICATION: Left leg pain PROCEDURE: 2 views left femur COMPARISON: No prior studies for comparison. FINDINGS: Fracture, dislocation or subluxation is not identified. There is osteoarthritis of the left knee. Mild joint space narrowing in the left hip. Small left knee effusion. The soft tissues appear within normal limits. No foreign bodies are identified. IMPRESSION: 1: NO ACUTE BONE OR JOINT ABNORMALITY IDENTIFIED. Reviewed, dictated and finalized at location A.
--- NOTE | ~2021-07-04 | XR_ITS ---
XR pelvis 1-2V 07/05/2021 15:13 INDICATION: Left hip and thigh pain after fall PROCEDURE: AP pelvis COMPARISON: No prior studies for comparison. FINDINGS: Fracture, dislocation or subluxation is not identified. The soft tissues appear within norm al limits. No foreign bodies are identified. There is moderate lower lumbar spondylosis. IMPRESSION: 1: NO ACUTE BONE OR JOINT ABNORMALITY IDENTIFIED. Reviewed, dictated and finalized at location A.
--- NOTE | ~2021-07-04 | XR_ITS ---
XR knee RT 3V 07/05/2021 15:13 Indication: Right knee pain Procedure: 3 views right knee Comparison: No prior studies for comparison. Findings: No acute fracture, subluxation or dislocation. There is severe osteoarthritis. Small joint effusion. No foreign bodies. Impression: 1: No acute fracture. Reviewed, dictated and finalized at location A. Impression: 1: No acute fracture.
--- NOTE | ~2021-07-04 | XR_ITS ---
EXAMINATION: XR chest 1V portable 07/04/2021 17:38 INDICATION: Shortness of breath. Atrial fibrillation. PROCEDURE: AP portable chest COMPARISON: Comparison to multiple prior studies sequentially, with oldest reviewed study dated 07/25. FINDINGS: The lungs are clear. Cardiomegaly. Mildly prominent central pulmonary arteries. There are n o pleural effusions. There is no pneumothorax suspected. IMPRESSION: 1: NO ACUTE CARDIOPULMONARY DISEASE. Reviewed, dictated and finalized at location A.
--- NOTE | 2021-07-04 17:09 | ECG_ITS ---
Measurements Intervals [place] Rate: 49 P: 70 NH: 200 QRS: -21 QRSD: 114 T: 56 QT: 423 QTc: 384 Interpretive Statements SINUS BRADYCARDIA BORDERLINE AV CONDUCTION DELAY VOLTAGE CRITERIA FOR LVH MINIMAL Q WAVES- HIGH LATERAL LEADS ABNORMAL ECG Electronically Signed On 07-05-2021 7:46:25 CDT by Don Flores D.O.
[2021-07-04 17:16] LABS: Basophils Absolute Auto 0.1 K/mm3 (0.0-0.1); Basophils Percent Auto 1.3 % (0.2-1.2); Eosinophils Absolute Auto 0.1 K/mm3 (0-0.3); Eosinophils Percent Auto 1.8 % (0-4.4); Hematocrit 33.1 % (37.0-47.0); Immature Granulocyte Absolute 0.03 K/mm3 (0.00-0.031); Immature Granulocyte Percent A 0.4 % (0-0.5); Lymphocytes Absolute Auto 1.75 K/mm3 (0.9-3.2); Lymphocytes Percent Auto 22.8 % (18.3-44.2); Mean Corpuscular HGB Conc 30.2 g/dl (32-36); Mean Corpuscular Hemoglobin 26.9 pg (26-34); Mean Platelet Volume 11.5 fl (7.4-10.4); Monocytes Absolute Auto 0.7 K/mm3 (0.1-0.6); Monocytes Percent Auto 8.6 % (2.6-8.5); Neutrophils Percent Auto 65.1 % (45.5-73.1); Platelet Count Result 263 k/mm3 (150-375); Red Blood Count 3.72 M/mm3 (4.2-5.4); Red Cell Distribution Width 16.3 % (11.5-14.5); White Blood Count 7.7 K/mm3 (4.5-10.0)
[2021-07-04 17:30] LABS: Alanine Aminotransferase 13 U/L (4-35); Alkaline Phosphatase 79 U/L (38-126); Anion Gap 9 mmol/L (8-16); Aspartate Amino Transferase 27 U/L (14-36); Bilirubin,Total 1.1 mg/dL (0.2-1.3); Blood Urea Nitrogen 49 mg/dL (7-17); Calcium 11.2 mg/dL (8.4-10.2); Carbon Dioxide 28 mmol/L (22-30); Chloride 104 mmol/L (98-107); Estimated CRCL calculation 22 ml/min; Estimated Glomerular Filt Rate 17; Glucose 151 mg/dL (65-110); Sodium 141 mmol/L (137-145)
[2021-07-04 17:49] LABS: Add Urine Microscopic? YES; Appearance Urine Cloudy (Clear); Bacteria Urine Trace /hpf; Bilirubin Urine Negative (Negative); Blood Urine 2+ (Negative); Color Urine Yellow (Yellow); Glucose Urine UA 1+ mg/dL (Negative); Ketones Urine Negative (Negative); Leukocyte Esterase Ur 3+ LEU/UL (Negative); Nitrate Urine Negative (Negative); Protein Urine 3+ mg/dL (Negative); RBC Urine >75 /hpf (0-2); Specific Grav Ur 1.017 (1.001-1.035); Squamous Epithelial Cell Urine Rare /hpf (Few); Urobilinogen Urine Negative mg/dL (<2.0); WBC Urine >75 /hpf
--- NOTE | 2021-07-04 20:04 | PC.NURSE ---
Pt unable to answer when back pain started or if worse today. daughter at bedside reports that pt has c/o back pain since 06/05 when she may have had a seizure and fell in home bathroom. Pt then went by ambulance to [facility] in [place], where cause of seizures undetermined. Daughter reports no imaging of back was done, and pt went to rehab in [place], [place] and transferred to [facility] d/t daughter being unhappy with care at first facility. Pt [facility] from [facility] today, where she was utilizing walker. Pt's daughter reports pt fell today when attempting to climb stairs to front door of home, and pt's 'legs gave out and she crumpled'. When asked direct questions, pt states I don't know . Daughter reports pt able to answer questions for herself. remains on monitor. awaiting transfer instructions from ED MD Chiu.
[2021-07-04] MEDS: oxyCODONE/ACETAMINOPHEN (*CRX) 5-325 MG TABLET 1 TABLET PO (20:58)
--- NOTE | 2021-07-04 21:17 | ED.FALL ---
HPI - Fall General Chief Complaint: Fall <Chris Chiu MD - Last Filed: 07/05/21 12:29> Stated Complaint: fall <Chris Chiu MD - Last Filed: 07/05/21 12:29> Time Seen by Provider: 07/04/21 17:33 <Chris Chiu MD - Last Filed: 07/05/21 12:29> Source: patient and family <Chris Chiu MD - Last Filed: 07/05/21 12:29> Mode of arrival: EMS <Chris Chiu MD - Last Filed: 07/05/21 12:29> Limitations: clinical condition <Chris Chiu MD - Last Filed: 07/05/21 12:29> History of Present Illness HPI Narrative: 76-year-old female Most history obtained from daughter Patient had been hospitalized at [facility] roughly a month ago following a seizure Sounds like this was a significant episode and she was even intubated in the ICU for a period of time After evaluation there she was ultimately discharged to a rehab center in [facility] on anticonvulsant Subsequent to that she was transferred to the rehab floor here at [facility] from where she was discharged today When she got home she was unable to get into the house, it sounds like her daughter went in to open a door for her that she can get through without any steps but in the meantime she fell landing on her left side, she believes that her knee gave way No loss of consciousness, did not hit her head She complains of left knee pain and back pain The back pain is been present for a while, at least since she first left the ICU according to her daughter, but was never worked up and is worse now according to the daughter No numbness, no bowel/bladder sx <Chris Chiu MD - Last Filed: 07/05/21 12:29> Related Data Home Medications: Home Medications Medication Instructions Recorded Confirmed apixaban 5 mg tablet 5 mg PO BID 10/15/19 06/09/21 fesoterodine 8 mg tablet,extended 8 mg PO DAILY 10/15/19 06/09/21 release 24 hr loratadine 10 mg capsule 10 mg PO DAILY 10/15/19 06/09/21 rosuvastatin 20 mg PO DAILY 06/12/20 06/09/21 aspirin 81 mg tablet,delayed 81 mg PO DAILY 08/18/20 06/09/21 release cyanocobalamin (vitamin B-12) 1,000 mcg PO DAILY 08/18/20 06/09/21 1,000 mcg tablet folic acid 800 mcg tablet 0.8 mg PO DAILY 08/18/20 06/09/21 nitroglycerin 0.4 mg sublingual 0.4 mg SUBLINGUAL Q5M PRN 08/18/20 06/09/21 tablet sodium bicarbonate 650 mg tablet 650 mg PO BID 04/28/21 06/09/21 cholecalciferol (vitamin D3) 25 25 mcg PO BID cap 04/29/21 06/09/21 mcg (1,000 unit) capsule insulin degludec 100 unit/mL (3 30 unit SUBCUT DAILY ml 06/09/21 06/09/21 mL) subcutaneous pen Tradjenta 5 mg PO 1700 07/05/21 07/05/21 <Chris Chiu MD - Last Filed: 07/05/21 12:29> Allergies/Adverse Reactions: Allergies Allergy/AdvReac Type Severity Reaction Status Date / Time Sulfa (Sulfonamide Allergy Itching Verified 07/04/21 16:48 Antibiotics) <Chris Chiu MD - Last Filed: 07/05/21 12:29> Review of Systems Review of Systems: All systems reviewed & are unremarkable except as noted in HPI and below <Chris Chiu MD - Last Filed: 07/05/21 12:29> Constitutional: Constitutional: Reports fatigue, Denies fever(s) and Reports weakness <Chris Chiu MD - Last Filed: 07/05/21 12:29> Cardiovascular: Cardiovascular: Denies chest pain and Denies radiating jaw, neck or arm pain <Chris Chiu MD - Last Filed: 07/05/21 12:29> Respiratory: Respiratory: Denies cough and Denies dyspnea <Chris Chiu MD - Last Filed: 07/05/21 12:29> Gastrointestinal: Gastrointestinal: Denies diarrhea and Denies vomiting <Chris Chiu MD - Last Filed: 07/05/21 12:29> Genitourinary: Genitourinary: Reports nocturia and Reports dysuria <Chris Chiu MD - Last Filed: 07/05/21 12:29> Musculoskeletal: Musculoskeletal: Reports back pain, Reports myalgias, Reports arthralgias and Reports joint swelling <Chris Chiu MD - Last Filed: 07/05/21 12:29> Integumentary/Breasts: Skin/Breast: Denies rash <Chris Chiu
--- NOTE | 2021-07-04 22:04 | PC.NURSE ---
Patient's daughter Shima wants pt to be seen by neurology.
--- NOTE | 2021-07-04 22:18 | PC.NURSE ---
Per ED MD, pt NOT going to [facility]. Awaiting further instructions,.
[2021-07-04] MEDS: hydrALAZINE HCL 20 MG/ML VIAL IV PUSH (22:24)
[2021-07-05] VITALS (23 sets, daily range): BP systolic 141–210; BP diastolic 57–79; PULSE 48–68; RESP 12–20; TEMP 36.1–36.7; O2SAT 90–100; BMI 39.9
--- NOTE | 2021-07-05 01:00 | PC.NURSE ---
Attempted to verify pt's home meds with [facility] pharmacy. Closed until tomorrow AM.
[2021-07-05] MEDS: MORPHINE SULFATE (*CRX) 4 MG/ML INJ IV PUSH (01:11)
--- NOTE | 2021-07-05 02:44 | ADMGEN ---
This patient, Maria R Barrientos, was admitted to 2 Medical Room 260-01 @[id number]. Patient/family oriented to hospital policies and general routines including ID bracelet, bed and alarms, visiting hours, pain management, procedures, bathroom and other care routines, personal items, smoking policy, room service/diet, and visiting hours. Information on how to activate the Rapid Response Team has been discussed. Patient/Family are encouraged to report perceived risks to care and to ask questions if they do not understand what they are told or what they should do.
[2021-07-05] MEDS: hydrALAZINE HCL 50 MG TABLET PO ×4 (09:09→22:07)
[2021-07-05] MEDS: APIXABAN 5 MG TABLET PO ×2 (09:09→22:07)
--- NOTE | 2021-07-05 09:19 | PM.IMHP ---
H&P: HPI History of Present Illness Date/Time: 07/05/21 09:19 Maria R Barrientos is 76 year old lady with a past medical history significant for A-fib, HTN, DM type II, CKD III and seizures has been admitted after presenting to the ED after sustaining a fall. The patient is a poor historian and history obtained per chart review. She was discharged from [facility] yesterday and when she arrived home, she was unable to get into the house. Her daughter tried to open the door, however, she fell landing on her left side and struck her head. She did not lose consciousness. She also reported back pain and left knee pain. She has had back pain since her hospitalization at last month, according to her daughter no workup was performed. Apparently she was hospitalized about 1 month ago at [facility] after presenting to the hospital for a headache, and was being evaluated for stoke, and had a witnessed seizure. She was intubated and in the ICU for a day; she was ultimately discharged to [facility] in [place], [place] on anticonvulsant; and subsequently transferred to [facility] for inpatient acute rehab on 06/18/2021 and discharged on 07/04/2021. ED evaluation included and revealed: UA is consistent UTI; head CT showed no acute findings; CXR with no acute disease process; xray of knee showed no acute fracture; CT of thoracic lumbar showed an acute L3 burst fracture with approximately 20% loss of vertebral body height. There is no significant spinal canal stenosis. There is approximately 2-3 mm retropulsion of the vertebra posteriorly; low-density right adrenal mass measuring 4.3 cm, most likely benign adenoma; cardiomegaly with pericardial effusion. BUN/Cr 49/2.7; WBC 12.2, H/H 11.7/34.9 Her daughter has requested that the patient be transferred to [facility] in [place], [place]. She had been admitted her for observation until a bed is available. Orthopedic surgery has agreed to follow while here. 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 History of orthostatic hypotension Hyperlipidemia Kidney stones of the left kidney with multiple lithotripsies Left ventricular outflow obstruction echocardiogram May 2020 Osteoporosis DEXA scan 08/14/2020 Overactive bladder Physical deconditioning Stress incontinence in female Thyroid nodule (~2014) Urinary incontinence Urinary incontinence Vitamin D deficiency Surgical History Surgical History Status post cataract extraction and insertion of intraocular lens of right eye Status post right breast lumpectomy Family History Family History Sibling Cerebrovascular accident Diabetes mellitus Father Diabetes mellitus Mother Cervical cancer Social History Social History Social History: The patient lives with her 46-year-old daughter. She is . She is a lifelong nonsmoker and does not drink alcohol or use illicit substances. She is retired from the [employer]. Primary care physician: Dr. Carl Maloney code status: Full code Surrogate decision maker: Daughter Smoking status: Never smoker Second hand tobacco smoke exposure: No Alcohol intake: never Substance use: never Substance use type: does no
--- NOTE | 2021-07-05 11:26 | PM.CNOR ---
Assessment and Plan Additional Plan patient is a 76-year-old female that I am asked to see for evaluation of L3 burst fracture. She has been complaining of lower back pain. She is not a very good historian and repeatedly argued that it was her daughter who has the back problem and not her but she does admit to having lower back pain. The ER physician noted that she had had this back pain back when she was in the ICU. She has a history of 2 prior back surgeries at [facility] and her back specialist is there. The ER physician attempted transferred to [facility] last night but they had no beds available and were unable to accept her so she was admitted to [facility]. I explained the patient that we do not have a back specialist at this hospital. The CT scan shows a mild compression deformity with about 20% loss of height inferior endplate at L3 that this is a burst fracture on the CT scan with mild retropulsion of the inferior endplate into the canal. There was no bony destructive lesion associated with this. This not clear whether this occurred when she collapsed last evening as she was entering her house returning home from being discharged from the acute rehab unit yesterday or whether this had occurred previously. She had a seizure was in the intensive care unit just a couple weeks ago. She has diabetes and chronic kidney disease. Her creatinine in the ER yesterday was 2.7 and this is on par with her creatinine levels that she has been having documented in the chart. On exam today she denied any numbness or tingling to light touch testing of both lower extremities. She had Grossly normal motor function of her foot and ankle bilaterally. she was unable do a straight leg raise on the left against the weight of gravity. She does have a BMI of 39 and her legs are very obese. She has ecchymosis over the fronts of both knees. I could move her left hip around and she did not guard and reported mild to moderate pain in the front of her left knee and the length of her thigh up to just below the groin. She felt the same distribution of pain when she tried to do a straight leg raise which she could almost to but not quite. She does not feel any pain at rest. She had pain around the right knee only with range of motion of her right knee and rotation of the right hip. This was very mild. She has ecchymosis over the right knee as well. She had 2+ dorsalis pedis pulses bilaterally. I am going to order x-ray of the right knee the left femur and AP pelvis to rule out fracture. I am going to ask Petroleum Laboratory Technician to fit her with a lumbar orthosis. With her obesity bordering on extreme I do not think she would tolerate a TLSO very well. I would recommend that she be at bed rest pending application of the brace which should be applied before getting her up. She has SCDs in place. She is also on Eliquis 5 mg twice daily for atrial fibrillation. This of course will protect her from thromboembolic events in the lower extremity veins while at bed rest. I would recommend transfer to [facility] to the care of her social media specialist whenever bed is available. I will be happy to follow her here. 50 minutes were spent in total care of this patient today. 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
[2021-07-05] MEDS: HYDROcodone/acetaminophen (*CRX) 5-325 MG TABLET 1 TAB PO (12:06)
[2021-07-05] MEDS: OMEGA 3 POLYUNSAT FATTY ACIDS 1 GM CAP 2 GM PO (17:50)
[2021-07-05] MEDS: CHOLECALCIFEROL 1,000 UNITS TABLET 1000 UNITS PO (17:50)
[2021-07-05] MEDS: SODIUM CHLORIDE 0.9% IV 1,000 ML 50 ML IV CONT (17:50)
[2021-07-05] MEDS: SODIUM BICARBONATE TAB 650 MG TABLET PO (17:50)
[2021-07-05] MEDS: lamoTRIgine 25 MG TABLET 75 MG PO (22:07)
[2021-07-05] MEDS: METOPROLOL TARTRATE 50 MG TAB PO (22:07)
[2021-07-05] MEDS: INSULIN GLARGINE (*BKC) 100 UNITS/ML 30 UNITS SUB-Q (22:08)
[2021-07-06] VITALS (12 sets, daily range): BP systolic 161–179; BP diastolic 69–78; PULSE 53–74; RESP 16–20; TEMP 36.3–36.7; O2SAT 91–98
--- NOTE | 2021-07-06 | ECHO_ITS ---
Patient Info Name: Maria R Barrientos Age: 76 years : 1945 Gender: Female Ht: 67 in Wt: 254 lbs BSA: 2.39 m2 HR: 57 bpm BP: 166 / 70 mmHg Technical Quality: Fair Exam Date: 07/06/2021 8:16 AM Exam Location: [facility] Patient Status: Inpatient Admit Date: 07/05/2021 Staff Ordering Physician: Lee Ann Hope Tools Developer: Scott Aiken RDCS, RT Attending Provider: Eduarda Flores DO Referring Physician: Jayy PRESCOTT; Exam Type: CA echo doppler color flow Study Info Indications I31.3 - Pericardial effusion (noninflammatory) Complete two-dimensional, color flow and Doppler transthoracic echocardiogram is performed. Summary 1. Complete two-dimensional, color flow and Doppler transthoracic echocardiogram is performed. 2. Left ventricular chamber dimension is normal. 3. Left ventricular systolic function is normal, estimated at 60-65%. 4. There is mildly increased left ventricular wall thickness. 5. The left ventricular diastolic function is grade I diastolic dysfunction. 6. E/e' 13 is mildly elevated. 7. Left atrial chamber dimension is mildly enlarged. 8. There is mild aortic valve sclerosis. 9. There is mild aortic valve regurgitation. 10. There is trace pulmonic regurgitation. 11. There is trivial pericardial effusion. No cardiac tamponade. Left Ventricle E/e' 13 is mildly elevated. Left ventricular chamber dimension is normal. Left ventricular systolic function is normal, estimated at 60-65%. There is mildly increased left ventricular wall thickness. The left ventricular diastolic function is grade I diastolic dysfunction. Right Ventricle Right ventricular systolic function is normal and with normal TAPSE 2.4 cm. Right ventricular chamber dimension is normal. Left Atria Left atrial chamber dimension is mildly enlarged. Right Atria Right atrial chamber dimension is normal. Aortic Valve The aortic valve is trileaflet. There is mild aortic valve sclerosis. There is no aortic valve stenosis. There is mild aortic valve regurgitation. Pulmonic Valve There is trace pulmonic regurgitation. Mitral Valve There is no mitral valve stenosis. There is no mitral valve regurgitation. Tricuspid Valve There is no tricuspid valve regurgitation. Pericardium/Pleural There is trivial pericardial effusion. No cardiac tamponade. Inferior Vena Cava Normal inferior vena cava with >50% collapse upon inspiration consistent with normal right atrial pressure, 5 mmHg. Aorta The aortic root size at the sinus of Valsalva is normal. Left Ventricular Outflow Tract Name Value Normal LVOT 2D LVOT Diameter 2.1 cm LVOT Doppler LVOT Peak Gradient 4 mmHg LVOT Mean Gradient 1 mmHg LVOT VTI 27 cm LVOT VTI/AV VTI Ratio 0.7 LVOT Stroke Volume 99 ml LVOT CO 5.5 l/min LVOT CI 2.3 l/min/m2 Mitral Valve
[2021-07-06 07:35] LABS: Glucose Point of Care 100 mg/dl (65-105)
[2021-07-06 07:53] LABS: Glucose Point of Care 132 mg/dl (65-105)
[2021-07-06 07:54] LABS: Glucose Point of Care 120 mg/dl (65-105)
[2021-07-06 07:55] LABS: Glucose Point of Care 106 mg/dl (65-105)
[2021-07-06 07:56] LABS: Glucose Point of Care 145 mg/dl (65-105)
[2021-07-06] MEDS: METOPROLOL TARTRATE 50 MG TAB PO ×2 (08:56→20:40)
[2021-07-06] MEDS: lamoTRIgine 25 MG TABLET 75 MG PO ×2 (08:56→20:39)
[2021-07-06] MEDS: LORATADINE 10 MG TABLET PO (08:56)
[2021-07-06] MEDS: CYANOCOBALAMIN 1,000 MCG TABLET 1000 MCG PO (08:56)
[2021-07-06] MEDS: SODIUM BICARBONATE TAB 650 MG TABLET PO ×2 (08:56→17:10)
[2021-07-06] MEDS: CHOLECALCIFEROL 1,000 UNITS TABLET 1000 UNITS PO ×2 (08:56→17:10)
[2021-07-06] MEDS: OMEGA 3 POLYUNSAT FATTY ACIDS 1 GM CAP 2 GM PO ×2 (08:56→17:10)
[2021-07-06] MEDS: ROSUVASTATIN 10 MG TABLET 20 MG PO (08:56)
[2021-07-06] MEDS: ASPIRIN 81 MG ENTERIC TABLET PO (08:56)
[2021-07-06] MEDS: FOLIC ACID 0.4 MG TABLET 0.8 MG PO (08:57)
[2021-07-06] MEDS: hydrALAZINE HCL 50 MG TABLET PO ×4 (08:57→20:39)
[2021-07-06] MEDS: APIXABAN 5 MG TABLET PO ×2 (08:57→20:39)
--- NOTE | 2021-07-06 09:09 | PM.IMPN ---
Progress Note: A&P Assessment and Plan (1) Closed compression fracture of lumbar vertebra: Code(s): S32.000A - Wedge compression fracture of unspecified lumbar vertebra, initial encounter for closed fracture Status: Acute Assessment and Plan: CT imaging noted above Ortho consulted, recommendations appreciated Plan to be fitted for lumbar orthosis Pt waitlisted for [facility] for tertiary care (2) Physical deconditioning: Code(s): R53.81 - Other malaise Status: Acute Assessment and Plan: PT/OT when pt is able to participate (3) UTI (urinary tract infection): Code(s): N39.0 - Urinary tract infection, site not specified Status: Acute Assessment and Plan: Gentle IVF Continue empiric IV antibiotics Follow UC, adjust as therapy as needed (4) Diabetes type 2, uncontrolled: Qualifiers: Glycemic state: with hyperglycemia Qualified Code(s): E11.65 - Type 2 diabetes mellitus with hyperglycemia Code(s): E11.65 - Type 2 diabetes mellitus with hyperglycemia Status: Acute Assessment and Plan: hHgb A1c 8.4 on 06/24 SSI, accucheks Monitor (5) A-fib: Qualifiers: Atrial fibrillation type: unspecified Qualified Code(s): I48.91 - Unspecified atrial fibrillation Code(s): I48.91 - Unspecified atrial fibrillation Status: Acute Assessment and Plan: On Eliquis Continue BB Rate controlled Tele monitoring (6) Pericardial effusion: Code(s): I31.3 - Pericardial effusion (noninflammatory) Status: Acute Assessment and Plan: 2D ECHO Consider cariology consult (7) Right adrenal mass: Code(s): E27.8 - Other specified disorders of adrenal gland Status: Acute Assessment and Plan: Incidental finding Recommend follow up outpatient (8) CKD (chronic kidney disease): Qualifiers: Chronic kidney disease stage: stage 3 (moderate) Qualified Code(s): N18.3 - Chronic kidney disease, stage 3 (moderate) Code(s): N18.9 - Chronic kidney disease, unspecified Status: Acute Assessment and Plan: Appears close to baseline Cr 2.7 07/05 Followed by [facility] Avoid nephrotoxins Renally dose all meds Monitor Subjective Date/time seen: 07/06/21 09:09 Pt seen and evaluated; no acute events overnight; pt is calm and cooperative this morning; she is suspicious and states, I don't know what to believe; explained th plan of care and discussed with her daughter yesterday Review of Systems Review of Systems: All systems reviewed & are unremarkable except as noted in HPI and below Exam Const: General: no acute distress, alert and awake Orientation/consciousness: oriented to person HENMT: Head: hematoma Ears: hearing grossly normal bilaterally and external ears normal Face and sinus: face symmetric Mouth: Yes Normal oral and palatal mucosa present Eyes: Pupils: Equal, round and reactive pupils present EOM: EOMs intact bilaterally Neck: Neck: full ROM, trachea midline and no JVD Thyroid: thyroid normal Resp: Effort & Inspection: normal respiratory effort Auscultation: clear to auscultation bilaterally Cardio: Jugular venous distension: no JVD Rate: regular rate Rhythm: regular rhythm Heart sounds: S1 normal heart sound present and S2 normal heart sound present GI: Inspection: normal to inspection and obesity Auscultation: normal bowel sounds : General: Yes no CVA tenderness Back/Spine/Pelvis: Back: no CVA tenderness Skin: General skin exam: normal color Rashes: no rashes Neuro: General: oriented to person Cranial nerves: Yes Equal, round and reactive pupils present Motor exam (neuro): Abnormal motor strength present Extrem: General: other (several areas of eccyhmosis noted BLE ) Psych: Appearance: grossly normal Objective Data Vital Signs Vital Signs: Vital Signs - 24 hr 07/05/21 12:00 07/05/21 12:07 07/05/21 14:00 Temperature
[2021-07-06 09:56] LABS: Hemoglobin 9.8 g/dL (12.0-15.0); Mean Corpuscular HGB Conc 28.8 g/dl (32-36); Mean Corpuscular Hemoglobin 27.1 pg (26-34); Mean Corpuscular Volume 94.2 fl (80-100); Mean Platelet Volume 10.8 fl (7.4-10.4); Platelet Count Result 206 k/mm3 (150-375); Red Blood Count 3.61 M/mm3 (4.2-5.4); Red Cell Distribution Width 16.5 % (11.5-14.5); White Blood Count 5.3 K/mm3 (4.5-10.0)
[2021-07-06 10:06] LABS: Anion Gap 12 mmol/L (8-16); Blood Urea Nitrogen 44 mg/dL (7-17); Calcium 10.9 mg/dL (8.4-10.2); Carbon Dioxide 25 mmol/L (22-30); Chloride 105 mmol/L (98-107); Estimated CRCL calculation 22 ml/min; Estimated Glomerular Filt Rate 17; Glucose 143 mg/dL (65-110); Potassium 3.8 mmol/L (3.4-5.0); Sodium 142 mmol/L (137-145)
--- NOTE | 2021-07-06 10:50 | PM.PNORT ---
Progress Note: A&P Additional Plan patient today complains of lower back pain and left knee pain. X-rays of left femur pelvis and right knee yesterday showed no evidence of fracture. She does have severe osteoarthritis in her right knee but the right knee does not bother is very much today. On exam I cannot feel a definite effusion. She does have ecchymosis over the tibial tubercle distal patellar tendon area. I have offered her a cortisone shot. I have discussed with her the risk of side effects such as infection and the fact that it will make her blood sugars go up for few days. After ChloraPrep prep 2 cc of Celestone Soluspan and 3 cc 1% lidocaine were injected into the left knee without difficulty. She has no numbness in her feet and has intact motor function in the muscles about her ankle today bilaterally. I see on the hospitalist's note that it says that she has a compression fracture but technically patient has an L3 burst fracture and not a simple compression fracture. Hopefully the brace will be Sized today to be applied soon as possible. 25 minutes were spent in total care this patient today. Subjective Subjective Date/Time Seen: 07/06/21 10:50 Objective Data Vital Signs Vital Signs: Vital Signs - 24 hr 07/05/21 12:00 07/05/21 12:07 07/05/21 14:00 Temperature 36.3 C L Pulse Rate 54 L 59 L 68 Respiratory Rate 16 18 Blood Pressure 158/66 H 183/66 H Pulse Oximetry 94 07/05/21 16:00 07/05/21 20:00 07/05/21 21:33 Temperature 36.7 C Pulse Rate 62 63 63 Respiratory Rate 20 Blood Pressure 145/57 H Pulse Oximetry 93 07/05/21 22:07 07/06/21 00:00 07/06/21 04:00 Temperature Pulse Rate 65 61 53 L Respiratory Rate Blood Pressure Pulse Oximetry 07/06/21 06:00 07/06/21 08:56 Temperature 36.7 C Pulse Rate 68 58 L Respiratory Rate 20 Blood Pressure 166/70 H Pulse Oximetry 98 Intake/Output Intake/Output: Intake & Output 07/03/21 07/04/21 07/05/21 07/06/21 23:59 23:59 23:59 23:59 Intake Total 50 230 150 Output Total 225 500 Balance 50 5 -350 Meds/Results Medications: Active Medications Generic Name Dose Route Start Last Admin Trade Name Brayden PRN Reason Stop Dose Admin Acetaminophen 650 mg 07/05/21 09:12 Acetaminophen 325 Mg Tablet PO Q4H PRN Mild Pain (1-3) or Fever Hydrocodone Bitart/Acetaminophen 1 tab 07/05/21 09:12 07/05/21 12:06 Hydrocodone/Acetaminophen (*Crx) 5-325 Mg Tablet PO 1 tab Q4H PRN Administration Moderate Pain (4-6) Apixaban 5 mg 07/05/21 09:00 07/06/21 08:57 Apixaban 5 Mg Tablet PO 5 mg Q12HR BIANKA Administration Aspirin 81 mg 07/06/21 09:00 07/06/21 08:56 Aspirin 81 Mg Enteric Tablet PO 81 mg DAILY BIANKA Administration Betamethasone Acet/Betameth SodPhos 12 mg 07/06/21 11:00 Betamethasone Sod Phos/Acetate 30 Mg/5 Ml Vial XX 07/06/21 11:01 ONCE ONE Cyanocobalamin 1,000 mcg 07/06/21 09:00 07/06/21 08:56 Cyanocobalamin 1,000 Mcg Tablet PO 1,000 mcg DAILY BIANKA Administration Dextrose 12.5 gm 07/05/21 09:12 Dextrose 50% 25 Gm/50 Ml Syringe IV PUSH PRN PRN Hypoglycemia Protocol Fish Oil 2 gm 07/05/21 17:00 07/06/21 08:56 [place] 3 Polyunsat Fatty Acids 1 Gm Cap PO 2 gm BID BIANKA Administration Folic Acid 0.8 mg 07/06/21 09:00 07/06/21 08:57 Folic Acid 0.4 Mg Tablet PO 0.8 mg DAILY BIANKA Administration Glucagon 1 mg 07/05/21 09:12 Glucagon For Inj 1 Mg Vial IM PRN PRN Hypoglycemia Protocol Glucose 15 gm 07/05/21 09:12 Glucose Oral Gel 15 Gm Of Glucse In 37.5 Gm Tube PO PRN PRN Hypoglycemia Protocol Hydralazine HCl 50 mg 07/05/21 08:00 07/06/21 08:57 Hydralazine Hcl 50 Mg Tablet PO 50 mg 0800,1200,1700,2100 BIANKA Administration Dextrose 1,000 mls @ 100 mls/hr 07/05/21 09:12 Dextrose 5% 1,000 Ml IVPB PRN PRN Hypoglycemia Protocol Sodium Chlori
[2021-07-06 11:39] LABS: Glucose Point of Care 120 mg/dl (65-105)
[2021-07-06] MEDS: LIDOCAINE HCL 1% LOCAL INJ 10 ML VIAL 3 ML INFILTRATE (11:42)
[2021-07-06] MEDS: BETAMETHASONE SOD PHOS/ACETATE 30 MG/5 ML VIAL 12 MG XX (11:42)
--- NOTE | 2021-07-06 14:01 | PC.NURSE ---
Raulmeron was called per Dr. Tracy's orders for a back brace for the patient to improve ambulation while awaiting transfer to [facility]. Ramya arrived on the flood at 1300 to apply the brace, the brace had been fitted and applied when the patient refused to continue wearing the brace at this time. The patient is also refusing to sign the paperwork for the brace and due to this Ramya is not allowed to leave the brace in the patients room. Dr. Trcay was called and informed on the above information and per Dr. Tracy the patient is to remain on bedrest with no ambulation until transfer to [facility] due to the refusal of the brace.
[2021-07-06 16:30] LABS: Glucose Point of Care 214 mg/dl (65-105)
[2021-07-06] MEDS: INSULIN ASPART (*BKC) 100 UNITS/ML SUB-Q (17:10)
[2021-07-06] MEDS: SODIUM CHLORIDE 0.9% IV 1,000 ML 50 ML IV CONT (20:34)
[2021-07-06] MEDS: INSULIN GLARGINE (*BKC) 100 UNITS/ML 30 UNITS SUB-Q (20:45)
[2021-07-06 21:27] LABS: Glucose Point of Care 197 mg/dl (65-105)
[2021-07-07] VITALS (9 sets, daily range): BP systolic 144–177; BP diastolic 62–68; PULSE 57–64; RESP 14–22; TEMP 36.1–36.4; O2SAT 95–96
[2021-07-07 06:00] LABS: Hemoglobin 8.9 g/dL (12.0-15.0); Mean Corpuscular HGB Conc 29.7 g/dl (32-36); Mean Corpuscular Hemoglobin 26.6 pg (26-34); Mean Corpuscular Volume 89.8 fl (80-100); Mean Platelet Volume 11.4 fl (7.4-10.4); Platelet Count Result 201 k/mm3 (150-375); Red Blood Count 3.34 M/mm3 (4.2-5.4); Red Cell Distribution Width 16.4 % (11.5-14.5); White Blood Count 4.5 K/mm3 (4.5-10.0)
[2021-07-07 06:11] LABS: Anion Gap 11 mmol/L (8-16); Blood Urea Nitrogen 47 mg/dL (7-17); Calcium 10.8 mg/dL (8.4-10.2); Carbon Dioxide 21 mmol/L (22-30); Chloride 107 mmol/L (98-107); Estimated CRCL calculation 22 ml/min; Estimated Glomerular Filt Rate 17; Glucose 231 mg/dL (65-110); Potassium 3.9 mmol/L (3.4-5.0); Sodium 139 mmol/L (137-145)
[2021-07-07 07:58] LABS: Glucose Point of Care 186 mg/dl (65-105)
[2021-07-07] MEDS: CYANOCOBALAMIN 1,000 MCG TABLET 1000 MCG PO (08:50)
[2021-07-07] MEDS: OMEGA 3 POLYUNSAT FATTY ACIDS 1 GM CAP 2 GM PO ×2 (08:50→16:39)
[2021-07-07] MEDS: lamoTRIgine 25 MG TABLET 75 MG PO ×2 (08:51→21:23)
[2021-07-07] MEDS: ASPIRIN 81 MG ENTERIC TABLET PO (08:51)
[2021-07-07] MEDS: FOLIC ACID 0.4 MG TABLET 0.8 MG PO (08:51)
[2021-07-07] MEDS: hydrALAZINE HCL 50 MG TABLET PO ×4 (08:51→21:25)
[2021-07-07] MEDS: APIXABAN 5 MG TABLET PO ×2 (08:51→21:25)
[2021-07-07] MEDS: CHOLECALCIFEROL 1,000 UNITS TABLET 1000 UNITS PO ×2 (08:51→16:39)
[2021-07-07] MEDS: ROSUVASTATIN 10 MG TABLET 20 MG PO (08:51)
[2021-07-07] MEDS: SODIUM BICARBONATE TAB 650 MG TABLET PO ×2 (08:51→16:39)
[2021-07-07] MEDS: LORATADINE 10 MG TABLET PO (08:52)
[2021-07-07] MEDS: METOPROLOL TARTRATE 50 MG TAB PO ×2 (09:21→21:24)
[2021-07-07 11:57] LABS: Glucose Point of Care 257 mg/dl (65-105)
[2021-07-07] MEDS: INSULIN ASPART (*BKC) 100 UNITS/ML SUB-Q ×2 (12:00→16:55)
--- NOTE | 2021-07-07 13:52 | PM.PNORT ---
Progress Note: A&P Additional Plan till working on fitting pt with brace. Knee still sore-shot will take several days to work, pt c/o pain with vert. fx-declines stronger pain meds. SS working on placement Subjective Subjective Date/Time Seen: 07/07/21 13:52 Objective Data Vital Signs Vital Signs: Vital Signs - 24 hr 07/06/21 14:46 07/06/21 16:00 07/06/21 20:00 Temperature 36.4 C L Pulse Rate 57 L 54 L 61 Respiratory Rate 16 20 Blood Pressure 161/69 H Pulse Oximetry 94 91 07/06/21 20:40 07/06/21 21:13 07/06/21 21:41 Temperature 36.3 C L Pulse Rate 74 59 L 61 Respiratory Rate 20 Blood Pressure 179/78 H Pulse Oximetry 91 07/07/21 00:00 07/07/21 04:00 07/07/21 05:09 Temperature 36.1 C L Pulse Rate 60 57 L 59 L Respiratory Rate 22 H Blood Pressure 177/62 H Pulse Oximetry 95 07/07/21 08:00 07/07/21 09:21 07/07/21 12:00 Temperature Pulse Rate 64 59 L 60 Respiratory Rate Blood Pressure Pulse Oximetry Intake/Output Intake/Output: Intake & Output 07/04/21 07/05/21 07/06/21 07/07/21 23:59 23:59 23:59 23:59 Intake Total 50 230 1630 1090 Output Total 225 1150 400 Balance 50 5 480 690 Meds/Results Medications: Active Medications Generic Name Dose Route Start Last Admin Trade Name Freq PRN Reason Stop Dose Admin Acetaminophen 650 mg 07/05/21 09:12 Acetaminophen 325 Mg Tablet PO Q4H PRN Mild Pain (1-3) or Fever Hydrocodone Bitart/Acetaminophen 1 tab 07/05/21 09:12 07/05/21 12:06 Hydrocodone/Acetaminophen (*Crx) 5-325 Mg Tablet PO 1 tab Q4H PRN Administration Moderate Pain (4-6) Apixaban 5 mg 07/05/21 09:00 07/07/21 08:51 Apixaban 5 Mg Tablet PO 5 mg Q12HR BIANKA Administration Aspirin 81 mg 07/06/21 09:00 07/07/21 08:51 Aspirin 81 Mg Enteric Tablet PO 81 mg DAILY BIANKA Administration Cyanocobalamin 1,000 mcg 07/06/21 09:00 07/07/21 08:50 Cyanocobalamin 1,000 Mcg Tablet PO 1,000 mcg DAILY BIANKA Administration Dextrose 12.5 gm 07/05/21 09:12 Dextrose 50% 25 Gm/50 Ml Syringe IV PUSH PRN PRN Hypoglycemia Protocol Fish Oil 2 gm 07/05/21 17:00 07/07/21 08:50 [place] 3 Polyunsat Fatty Acids 1 Gm Cap PO 2 gm BID BIANKA Administration Folic Acid 0.8 mg 07/06/21 09:00 07/07/21 08:51 Folic Acid 0.4 Mg Tablet PO 0.8 mg DAILY BIANKA Administration Glucagon 1 mg 07/05/21 09:12 Glucagon For Inj 1 Mg Vial IM PRN PRN Hypoglycemia Protocol Glucose 15 gm 07/05/21 09:12 Glucose Oral Gel 15 Gm Of Glucse In 37.5 Gm Tube PO PRN PRN Hypoglycemia Protocol Hydralazine HCl 50 mg 07/05/21 08:00 07/07/21 12:03 Hydralazine Hcl 50 Mg Tablet PO 50 mg 0800,1200,1700,2100 BIANKA Administration Dextrose 1,000 mls @ 100 mls/hr 07/05/21 09:12 Dextrose 5% 1,000 Ml IVPB PRN PRN Hypoglycemia Protocol Vancomycin HCl 1,750 mg in 500 mls @ 250 mls/hr 07/07/21 09:00 07/07/21 11:21 Vancomycin 1,750 Mg/D5w 500 Ml IVPB Infused Q36H BIANKA Infusion Insulin Aspart 2 - 5 units 07/05/21 12:00 07/07/21 12:00 Insulin Aspart (*Bkc) 100 Units/Ml SUB-Q 3 units TIDWM BIANKA Administration Protocol Insulin Glargine 30 units 07/05/21 21:00 07/06/21 20:45 Insulin Glargine (*Bkc) 100 Units/Ml SUB-Q 30 units HS BIANKA Administration Lamotrigine 75 mg 07/05/21 21:00 07/07/21 08:51 Lamotrigine 25 Mg Tablet PO 75 mg Q12HR BIANKA Administration Loratadine 10 mg 07/06/21 09:00 07/07/21 08:52 Loratadine 10 Mg Tablet PO 10 mg DAILY BIANKA Administration Metoprolol Tartrate 50 mg 07/05/21 21:00 07/07/21 09:21 Metoprolol Tartrate 50 Mg Tab PO 50 mg Q12HR BIANKA Administration Morphine Sulfate 4 mg 07/05/21 01:21 Morphine Sulfate (*Crx) 4 Mg/Ml Inj IV PUSH Q2H PRN Pain Rated 7-10 Morphine Sulfate 2 mg 07/05/21 09:12 Morphine Sulfate (*Crx) 2 Mg/Ml Inj IV PUSH Q4H PRN
--- NOTE | 2021-07-07 15:50 | PM.IMPN ---
Progress Note: A&P Assessment and Plan (1) AMS (altered mental status): Code(s): R41.82 - Altered mental status, unspecified Status: Acute Assessment and Plan: Patient's daughter is very concerned with her mental status. Supposedly this has been going on for 1 month since being hospitalized at [facility] where she was intubated after a reported seizure. At [facility] she reported having a lumbar puncture, MRI brain, and no findings for her altered mental status. She was then discharged to an SNF facility and then our acute rehab facility and she has still been acting altered, confused and defer from her baseline 1 month prior. MRI will be obtained since patient has trouble finding certain words and due to altered mental status Believe part of her altered mental status could be metabolic encephalopathy from acute UTI since Enterococcus was just found and antibiotics were switched today. Verses early dementia and confusion with change of seen during Dr. Maloney should request a Neurology consult Continue monitoring mental status. (2) L3 vertebral fracture: Code(s): S32.039A - Unspecified fracture of third lumbar vertebra, initial encounter for closed fracture Status: Acute Assessment and Plan: CT imaging noted above Ortho consulted, recommendations appreciated Fitted for lumbar orthosis Pt waitlisted for [facility] for tertiary care (3) Physical deconditioning: Code(s): R53.81 - Other malaise Status: Acute Assessment and Plan: PT/OT when pt is able to participate (4) UTI (urinary tract infection): Code(s): N39.0 - Urinary tract infection, site not specified Status: Acute Assessment and Plan: Growing Enterococcus UTI. Switched to IV Vanc (#1) based on renal function. There is sensitivity to Linezolid which can be given on discharge if needed. Continue empiric IV antibiotics (5) Diabetes type 2, uncontrolled: Qualifiers: Glycemic state: with hyperglycemia Qualified Code(s): E11.65 - Type 2 diabetes mellitus with hyperglycemia Code(s): E11.65 - Type 2 diabetes mellitus with hyperglycemia Status: Acute Assessment and Plan: Hgb A1c 8.4 on 06/24 SSI, accucheks Monitor (6) A-fib: Qualifiers: Atrial fibrillation type: unspecified Qualified Code(s): I48.91 - Unspecified atrial fibrillation Code(s): I48.91 - Unspecified atrial fibrillation Status: Acute Assessment and Plan: On Eliquis Continue BB Rate controlled Tele monitoring (7) Pericardial effusion: Code(s): I31.3 - Pericardial effusion (noninflammatory) Status: Acute Assessment and Plan: 2D ECHO Consider cariology consult (8) Right adrenal mass: Code(s): E27.8 - Other specified disorders of adrenal gland Status: Acute Assessment and Plan: Incidental finding Recommend follow up outpatient (9) CKD (chronic kidney disease): Qualifiers: Chronic kidney disease stage: stage 3 (moderate) Qualified Code(s): N18.3 - Chronic kidney disease, stage 3 (moderate) Code(s): N18.9 - Chronic kidney disease, unspecified Status: Acute Assessment and Plan: Appears close to baseline Cr 2.7 07/08 Followed by [facility]ong Avoid nephrotoxins Renally dose all meds Monitor Time Spent With Patient Time with patient: 25 - 35 minutes Subjective Date/time seen: 07/07/21 15:50 Interval history: Date of service 07/07/2021: Patient is A&O x4, but seems to be confused and paranoid. She believes someone is ?messing with her?. She believes that her back brace is supposed to be her daughters brace but instead she is wearing it. Patient reports some back pain but it is not too bad at this time. She denies any chest pain, shortness of breath, cough, fever, chills, nausea, vomiting, abdominal pain, leg swelling, calf pain, or any other symptoms at this time. Poor
[2021-07-07 16:56] LABS: Glucose Point of Care 348 mg/dl (65-105)
--- NOTE | 2021-07-07 18:38 | PC.NURSE ---
Patient refusing for their urinary catheter bag to be emptied at this time.
[2021-07-07 19:52] LABS: CRP 2.9 mg/dL (<1.0)
[2021-07-07] MEDS: HYDROcodone/acetaminophen (*CRX) 5-325 MG TABLET 1 TAB PO (21:23)
[2021-07-07] MEDS: INSULIN GLARGINE (*BKC) 100 UNITS/ML 30 UNITS SUB-Q (21:29)
[2021-07-07 22:56] LABS: Glucose Point of Care 300 mg/dl (65-105)
[2021-07-08 04:31] VITALS: BP 184/73; PULSE 54; RESP 20; TEMP 36.2; O2SAT 97
[2021-07-08 05:37] LABS: Hematocrit 28.6 % (37.0-47.0); Hemoglobin 8.7 g/dL (12.0-15.0); Mean Corpuscular HGB Conc 30.4 g/dl (32-36); Mean Corpuscular Hemoglobin 26.7 pg (26-34); Mean Corpuscular Volume 87.7 fl (80-100); Mean Platelet Volume 11.4 fl (7.4-10.4); Platelet Count Result 242 k/mm3 (150-375); Red Blood Count 3.26 M/mm3 (4.2-5.4); Red Cell Distribution Width 16.4 % (11.5-14.5); White Blood Count 7.5 K/mm3 (4.5-10.0)
[2021-07-08 06:15] LABS: Sodium 138 mmol/L (137-145)
[2021-07-08 06:59] LABS: Glucose Point of Care 199 mg/dl (65-105)
[2021-07-08 07:18] LABS: Alanine Aminotransferase 12 U/L (4-35); Albumin Level 3.3 g/dL (3.5-5.1); Alkaline Phosphatase 76 U/L (38-126); Anion Gap 9 mmol/L (8-16); Aspartate Amino Transferase 16 U/L (14-36); Bilirubin,Total 0.6 mg/dL (0.2-1.3); Blood Urea Nitrogen 56 mg/dL (7-17); Calcium 10.6 mg/dL (8.4-10.2); Carbon Dioxide 24 mmol/L (22-30); Chloride 105 mmol/L (98-107); Estimated CRCL calculation 22 ml/min; Estimated Glomerular Filt Rate 17; Glucose 206 mg/dL (65-110); Potassium 4.2 mmol/L (3.4-5.0)
[2021-07-08 08:44] VITALS: PULSE 114
[2021-07-08] MEDS: LORATADINE 10 MG TABLET PO (08:44)
[2021-07-08] MEDS: hydrALAZINE HCL 50 MG TABLET PO ×4 (08:44→23:18)
[2021-07-08] MEDS: OMEGA 3 POLYUNSAT FATTY ACIDS 1 GM CAP 2 GM PO ×2 (08:44→16:46)
[2021-07-08] MEDS: ROSUVASTATIN 10 MG TABLET 20 MG PO (08:44)
[2021-07-08] MEDS: METOPROLOL TARTRATE 50 MG TAB PO ×2 (08:44→23:19)
[2021-07-08] MEDS: ASPIRIN 81 MG ENTERIC TABLET PO (08:47)
[2021-07-08] MEDS: APIXABAN 5 MG TABLET PO ×2 (08:47→23:18)
[2021-07-08] MEDS: lamoTRIgine 25 MG TABLET 75 MG PO ×2 (08:47→23:16)
[2021-07-08] MEDS: CYANOCOBALAMIN 1,000 MCG TABLET 1000 MCG PO (08:48)
[2021-07-08] MEDS: SODIUM BICARBONATE TAB 650 MG TABLET PO ×2 (08:48→16:45)
[2021-07-08] MEDS: CHOLECALCIFEROL 1,000 UNITS TABLET 1000 UNITS PO ×2 (08:48→16:46)
[2021-07-08] MEDS: FOLIC ACID 0.4 MG TABLET 0.8 MG PO (08:48)
--- NOTE | 2021-07-08 09:08 | ECG_ITS ---
Measurements Intervals [place] Rate: 112 P: DC: 0 QRS: -17 QRSD: 116 T: 123 QT: 308 QTc: 422 Interpretive Statements ATRIAL FIBRILLATION WITH RAPID VENTRICULAR RESPONSE INTRAVENTRICULAR CONDUCTION DELAY VOLTAGE CRITERIA FOR LVH ST-T WAVE ABNORMALITY IN HIGH LATERAL LEADS- CONSIDER ISCHEMIA BASELINE ARTIFACT- V5 ABNORMAL ECG Electronically Signed On 07-08-2021 9:58:17 CDT by Don Flores D.O.
[2021-07-08 11:01] VITALS: BP 144/62; PULSE 74
--- NOTE | 2021-07-08 11:29 | WPDNEURCNPN ---
Assessment and Plan Additional Plan at this stage her neurological examination is nonfocal, CT scan of the head is negative, the spinal x-rays as mentioned above or abnormal but clinical neurological examination grossly nonfocal she is awaiting the transferred to the [facility] and at this stage a condition is stable Ramiro preferred to obtain the EEG because of question has been raised regarding the possibility of the intermittent confusion and hallucination to rule out the possibility of subclinical seizures Consult date: 07/08/21 Time Seen: 11:00 HPI: Maria R Barrientos is a 76 year old femaleAdmitted to the hospital on to fall through the emergency room patient was recently discharged from [facility] but by the time she reached home she was unable to get into the house after the daughter tried to open the door she fell landing on her left side and struck her head she did not become unconscious complain of back pain and left knee pain she had the back pain since her last this hospitalization about a month ago though at that particular time neuro particular workup was done according to the daughter about a month ago she was hospitalized at [facility] for the complaints of headache and was also evaluated for stroke and a witnessed seizure intubated in the ICU for day ultimately discharged to jail facility [facility] he noise on anticonvulsant subsequently transferred to [facility] for inpatient acute rehab on June 18, 2021 discharge on July 04, 2021 this time evaluation documented UA abnormal with consistent with UTI CT was negative chest x-ray was negative x-rays of the knee were negative CT of thoracic and lumbar spine revealed acute L3 burst fracture with 20% loss of vertebral body height but no significant spinal stenosis though there was 2 to 3 mm retropulsion of the vertebral body posteriorly incidental finding of right adrenal mass was noted measuring about 4.3cm cardiomegaly with pericardial effusion was noted chest x-ray and her BUN was 49 creatinine of 2.7 patient's daughter requested the patient be transferred to [facility] in [facility] she has been admitted to this hospital only for observation . Past history is consistent with 1. Atrial fibrillation 2. Hypertension 3. Diabetes mellitus type 2 4. Chronic kidney disease stage 3 and 5. Seizure disorder in addition to multiple medical problem otherwise as mentioned she has been taking multiple medications which include apixaban 5 mg twice a day aspirin 81 mg daily rosuvastatin 20 mg daily and diabetic care with antihypertensive medication particularly she is taking lamotrigine 75 mg q.12 hours possibly for seizures, patient is awaiting for the [facility] tertiary care transfer has been seen by the orthopedic physician and is to be fitted for lumbar orthosis, being treated for the UTI and atrial fibrillation, echocardiogram has been done which documented only minimal and dysfunction except left atrial chamber dimension is mildly enlarged his aortic valvular sclerosis regurgitation of mild degrees CT scan of the head did document a small posterior scalp contusion and hematoma but no intracranial bleed knee in chest x-rays are negative, thoracic and lumbar spine x-ray documented L3 burst fracture with loss of 20% hide but no significant canal stenosis there is 2 to 3 mm retropulsion of the vertebral body posteriorly and incidental finding of cardiomegaly with pericardial effusion Review of Systems Review of Systems: All systems reviewed & are unremarkable except as noted in HPI and below PMFSH Past Medical History Medical History A-fib Benign essential hypertension Cancer of right breast status post radiation and chemotherapy Carotid bruit less than 50% stenosis of right internal carotid artery a on Doppler 07/01/2020 Castlemans disease Chronic kidney disease, stage 3 Constipation Diabetes type 2
[2021-07-08 11:51] LABS: Glucose Point of Care 195 mg/dl (65-105)
--- NOTE | 2021-07-08 12:18 | PM.IMPN ---
Progress Note: A&P Assessment and Plan (1) AMS (altered mental status): Code(s): R41.82 - Altered mental status, unspecified Status: Acute Assessment and Plan: Patient's daughter is very concerned with her mental status. Supposedly this has been going on for 1 month since being hospitalized at [facility] where she was intubated after a reported seizure. At [facility] she reported having a lumbar puncture, MRI brain, and no findings for her altered mental status. She was then discharged to an SNF facility and then our acute rehab facility and she has still been acting altered, confused and defer from her baseline 1 month prior. MRI will be obtained since patient has trouble finding certain words and due to altered mental status Dr. Alonzo Neurology recommends an EEG at this time, order placed. Believe part of her altered mental status could be metabolic encephalopathy from acute UTI since Enterococcus was just found and antibiotics were switched (#2) Verses early dementia and confusion with changes recent with multiple hospitalization/SNF/TRC. Continue monitoring mental status. Appreciate neurology's input. (2) L3 vertebral fracture: Code(s): S32.039A - Unspecified fracture of third lumbar vertebra, initial encounter for closed fracture Status: Acute Assessment and Plan: CT imaging noted above Ortho consulted, recommendations appreciated Fitted for lumbar orthosis Pt waitlisted for [facility] for tertiary care (3) Physical deconditioning: Code(s): R53.81 - Other malaise Status: Acute Assessment and Plan: PT/OT when pt is able to participate (4) UTI (urinary tract infection): Code(s): N39.0 - Urinary tract infection, site not specified Status: Acute Assessment and Plan: Growing Enterococcus UTI. Switched to IV Vanc (#2) based on renal function. There is sensitivity to Linezolid which can be given on discharge if needed. Continue empiric IV antibiotics (5) Diabetes type 2, uncontrolled: Qualifiers: Glycemic state: with hyperglycemia Qualified Code(s): E11.65 - Type 2 diabetes mellitus with hyperglycemia Code(s): E11.65 - Type 2 diabetes mellitus with hyperglycemia Status: Acute Assessment and Plan: Hgb A1c 8.4 on 06/24 SSI, accucheks Monitor (6) A-fib: Qualifiers: Atrial fibrillation type: unspecified Qualified Code(s): I48.91 - Unspecified atrial fibrillation Code(s): I48.91 - Unspecified atrial fibrillation Status: Acute Assessment and Plan: On Eliquis and Metoprolol 07/07/21: Patient wanted AFib RVR and an EKG showed atrial fibrillation with RVR with heart rate 112 beats per minute. The patient had just received her oral metoprolol which she gets twice daily. about 1 hour later her heart rate was back within normal range in non tachycardic. Continue anticoagulation rate control. Continue monitoring. She does not need to be on telemetry at this time. She was asymptomatic during her episode. (7) Pericardial effusion: Code(s): I31.3 - Pericardial effusion (noninflammatory) Status: Acute Assessment and Plan: Echocardiogram was completed showing normal systolic function 60-65%, mildly increased LVH, diastolic grade 1, trivial pericardial effusion. No cardiac tamponade. Will continue monitoring, she is asymptomatic at this time. (8) Right adrenal mass: Code(s): E27.8 - Other specified disorders of adrenal gland Status: Acute Assessment and Plan: Incidental finding on CT Abd/Pelvis showing Low-density right adrenal mass measuring 4.3 cm, most likely benign adenoma. Recommend follow up outpatient (9) CKD (chronic kidney disease): Qualifiers: Chronic kidney disease stage: stage 3 (moderate) Qualified Code(s): N18.3 - Chronic kidney disease, stage 3 (moderate) Code(s): N18.9 - Chronic kidney dis
[2021-07-08 14:50] VITALS: BP 152/66; PULSE 55; RESP 16; TEMP 36.2; O2SAT 97
--- NOTE | 2021-07-08 16:19 | PM.CNOR ---
Assessment and Plan Additional Plan Patient is confused and seems depressed and angry today. Two days ago she was confused but cheerful. She states she just wants to be left alone and she does not want to have to do anything today. I asked if I could look at her left knee and she said no. I asked if her knee is bothering her and she said now it is fine I am not sure that is case as she seemed to just want to dismiss me and I have honored her wishes and will leave her alone today. I do not see a back brace in the room. I do not know whether she has it or not. The nurse advised me 2 days ago that when Cargo Supervisor came she refused to sign for the brace and they stated they could not provider brace unless she signed a consent form to receive it. We are waiting transferred to [facility] to the treatment of her own spine surgeon for her L3 burst fracture. 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 History of orthostatic hypotension Hyperlipidemia Kidney stones of the left kidney with multiple lithotripsies Left ventricular outflow obstruction echocardiogram May 2020 Osteoporosis DEXA scan 08/14/2020 Overactive bladder Physical deconditioning Stress incontinence in female Thyroid nodule (~2014) Urinary incontinence Urinary incontinence Vitamin D deficiency Surgical History Surgical History Status post cataract extraction and insertion of intraocular lens of right eye Status post right breast lumpectomy Family History Family History Sibling Cerebrovascular accident Diabetes mellitus Father Diabetes mellitus Mother Cervical cancer Social History Social History Social History: The patient lives with her 46-year-old daughter. She is . She is a lifelong nonsmoker and does not drink alcohol or use illicit substances. She is retired from the [employer]. Primary care physician: Dr. Carl Maloney code status: Full code Surrogate decision maker: Daughter Smoking status: Never smoker Second hand tobacco smoke exposure: No Alcohol intake: never Substance use: never Substance use type: does not use Gender identity (if verbalized by the patient): Female Spiritual care concerns: No Meds Home Medications and Allergies Home Medications Medication Instructions Recorded Confirmed Type apixaban 5 mg tablet 5 mg PO BID 10/15/19 07/05/21 History fesoterodine 8 mg tablet,extended 8 mg PO DAILY 10/15/19 07/05/21 History release 24 hr loratadine 10 mg capsule 10 mg PO DAILY 10/15/19 07/05/21 History rosuvastatin 20 mg PO DAILY 06/12/20 07/05/21 History aspirin 81 mg tablet,delayed 81 mg PO DAILY 08/18/20 07/05/21 History release cyanocobalamin (vitamin B-12) 1,000 mcg PO DAILY 08/18/20 07/05/21 History 1,000 mcg tablet folic acid 800 mcg tablet 0.8 mg PO DAILY 08/18/20 07/05/21 History nitroglycerin 0.4 mg sublingual 0.4 mg SUBLINGUAL Q5M PRN 08/18/20 07/05/21 History tablet icosapent ethyl 1 gram capsule 2 g PO BID #360 cap 12/10/20 07/05/21 Rx acetaminophen [Mapap 650 mg PO Q4H PRN 30 Days tablet 04/26/21 07/05/21 Rx (acetaminophen)] blood-glucose meter #1 ea 04/26/21 07/05/21 Rx sodium bicarbonate 650 mg tablet 650 mg PO BID 04/28/21 07/05/21 History cholecalciferol (
[2021-07-08] MEDS: INSULIN ASPART (*BKC) 100 UNITS/ML SUB-Q (16:49)
[2021-07-08] MEDS: LORazepam INJ (*CRX) 2 MG/ML VIAL 0.5 MG IV PUSH (17:02)
--- NOTE | 2021-07-08 17:26 | PC.NURSE ---
patient to MRI per stretcher.
[2021-07-08 18:28] LABS: Glucose Point of Care 212 mg/dl (65-105)
[2021-07-08 22:00] VITALS: BP 148/86; PULSE 96; RESP 16; TEMP 36.4; O2SAT 96
[2021-07-08] MEDS: MORPHINE SULFATE (*CRX) 4 MG/ML INJ IV PUSH (23:16)
[2021-07-08 23:19] VITALS: PULSE 65
[2021-07-08] MEDS: INSULIN GLARGINE (*BKC) 100 UNITS/ML 30 UNITS SUB-Q (23:25)
[2021-07-08 23:35] LABS: Glucose Point of Care 194 mg/dl (65-105)
[2021-07-09 05:36] VITALS: BP 178/89; PULSE 53; RESP 14; TEMP 36.8; O2SAT 100
[2021-07-09 06:06] LABS: Estimated CRCL calculation 21 ml/min; Estimated Glomerular Filt Rate 17
[2021-07-09 06:56] LABS: Glucose Point of Care 116 mg/dl (65-105)
[2021-07-09] MEDS: ASPIRIN 81 MG ENTERIC TABLET PO (08:58)
[2021-07-09] MEDS: lamoTRIgine 25 MG TABLET 75 MG PO ×2 (08:59→20:54)
[2021-07-09] MEDS: OMEGA 3 POLYUNSAT FATTY ACIDS 1 GM CAP 2 GM PO ×2 (09:00→17:01)
[2021-07-09] MEDS: ROSUVASTATIN 10 MG TABLET 20 MG PO (09:00)
[2021-07-09] MEDS: CYANOCOBALAMIN 1,000 MCG TABLET 1000 MCG PO (09:01)
[2021-07-09] MEDS: SODIUM BICARBONATE TAB 650 MG TABLET PO ×2 (09:01→17:05)
[2021-07-09] MEDS: APIXABAN 5 MG TABLET PO ×2 (09:02→20:56)
[2021-07-09] MEDS: LORATADINE 10 MG TABLET PO (09:02)
[2021-07-09] MEDS: FOLIC ACID 0.4 MG TABLET 0.8 MG PO (09:04)
[2021-07-09] MEDS: CHOLECALCIFEROL 1,000 UNITS TABLET 1000 UNITS PO ×2 (09:04→17:05)
[2021-07-09] MEDS: hydrALAZINE HCL 50 MG TABLET PO ×4 (09:05→20:54)
[2021-07-09 09:06] VITALS: PULSE 56; RESP 16; O2SAT 100
[2021-07-09] MEDS: METOPROLOL TARTRATE 50 MG TAB PO ×2 (09:06→20:56)
[2021-07-09 12:17] VITALS: BP 150/72; PULSE 50; O2SAT 96
[2021-07-09 12:18] LABS: Glucose Point of Care 150 mg/dl (65-105)
--- NOTE | 2021-07-09 13:44 | PM.IMPN ---
Progress Note: A&P Assessment and Plan (1) AMS (altered mental status): Code(s): R41.82 - Altered mental status, unspecified Status: Acute Assessment and Plan: Patient's daughter is very concerned with her mental status. Supposedly this has been going on for 1 month since being hospitalized at [facility] where she was intubated after a reported seizure. At the [facility] she reported having a lumbar puncture, MRI brain, and no findings for her altered mental status. She was then discharged to an SNF facility and then our acute rehab facility and she has still been acting altered, confused and defer from her baseline 1 month prior. MRI was completed but she did not tolerate laying down for very long. It was a very limited exam but saw no acute abnormality of what could have been completed. Dr. Alonzo Neurology completed an EEG we are waiting for to be read by him Believe part of her altered mental status could be metabolic encephalopathy from acute UTI since Enterococcus was just found and antibiotics were switched (#3) Verses early dementia and confusion with changes recent with multiple hospitalization/SNF/TRC. Discussed with Dr. Alonzo who recommends possibly starting Seroquel 25 mg to see if it helps with her symptoms. Will check a lamotrigine level in her blood to see if it is abnormal due to her renal function and dosing. Continue monitoring mental status. Appreciate neurology's input. (2) L3 vertebral fracture: Code(s): S32.039A - Unspecified fracture of third lumbar vertebra, initial encounter for closed fracture Status: Acute Assessment and Plan: CT imaging noted above The patient was post to be transferred to [facility] to their Ortho Spine Service but we received a call today stating that they will no longer except her because they are at max capacity with multiple their own patients in their ED waiting to be admitted. I called [facility] and talk to Dr. Bender Ortho/Spine who reviewed her images while on the phone. He recommended her having a custom TLSO brace or [employer] which would be better due to her protuberant abdomen. He recommended her having this brace in place any time she is sitting at a 30 degree angle, up walking around or sitting up. He recommends her being in this brace and then being able to start PT/OT therapy as tolerated. He recommends a x-ray of her thoracic spine once per week to manage the alignment. Currently it appears to be stable from the CT scan he reviewed. He reports they can follow her up in the [facility] in the next 3-4 weeks for further evaluation and monitoring. If any changes to her neuro status distally a then she needs any further evaluated and rediscussion can be made. I discussed this with the patient and daughter who understand and agree with the plan. Ordered the back brace she needs and wants she has it we can start PT/OT as tolerated. Continue monitoring. (3) Physical deconditioning: Code(s): R53.81 - Other malaise Status: Acute Assessment and Plan: PT/OT (4) UTI (urinary tract infection): Code(s): N39.0 - Urinary tract infection, site not specified Status: Acute Assessment and Plan: Growing Enterococcus UTI. Switched to IV Vanc (#3) based on renal function, will switch to PO Linezolid for 4 more days Continue PO abx (5) Diabetes type 2, uncontrolled: Qualifiers: Glycemic state: with hyperglycemia Qualified Code(s): E11.65 - Type 2 diabetes mellitus with hyperglycemia Code(s): E11.65 - Type 2 diabetes mellitus with hyperglycemia Status: Acute Assessment and Plan: Hgb A1c 8.4 on 06/24 SSI, accucheks Monitor (6) A-fib: Qualifiers: Atrial fibrillation type: unspecified Qualified Code(s): I48.91 - Unspecified atrial fibrillation Code(s): I48.91 - Unspecified atrial fibrillation Status: Acute
[2021-07-09 15:04] VITALS: BP 144/59; PULSE 52; RESP 14; TEMP 36.6; O2SAT 96
[2021-07-09] MEDS: SACCHAROMYCES BOULARDII 250 MG CAPSULE PO (17:02)
[2021-07-09] MEDS: QUEtiapine FUMARATE 25 MG TABLET PO (17:11)
[2021-07-09 17:15] LABS: Glucose Point of Care 181 mg/dl (65-105)
[2021-07-09] MEDS: HYDROcodone/acetaminophen (*CRX) 5-325 MG TABLET 1 TAB PO (20:55)
[2021-07-09 20:56] VITALS: PULSE 61
[2021-07-09] MEDS: LINEZOLID 600 MG TABLET PO (20:56)
[2021-07-09] MEDS: INSULIN GLARGINE (*BKC) 100 UNITS/ML 30 UNITS SUB-Q (21:00)
[2021-07-09 21:07] LABS: Glucose Point of Care 144 mg/dl (65-105)
[2021-07-09 21:20] VITALS: BP 169/60; PULSE 81; RESP 20; TEMP 36.1; O2SAT 97
[2021-07-10] VITALS (8 sets, daily range): BP systolic 118–182; BP diastolic 64–70; PULSE 55–66; RESP 18–20; TEMP 36.4–37.2; O2SAT 96–100
[2021-07-10] MEDS: MORPHINE SULFATE (*CRX) 4 MG/ML INJ IV PUSH (05:37)
[2021-07-10 08:05] LABS: Glucose Point of Care 119 mg/dl (65-105)
[2021-07-10 08:24] LABS: Hematocrit 30.6 % (37.0-47.0); Hemoglobin 9.2 g/dL (12.0-15.0); Mean Corpuscular HGB Conc 30.1 g/dl (32-36); Mean Corpuscular Hemoglobin 27.1 pg (26-34); Mean Corpuscular Volume 90.3 fl (80-100); Mean Platelet Volume 11.2 fl (7.4-10.4); Platelet Count Result 222 k/mm3 (150-375); Red Blood Count 3.39 M/mm3 (4.2-5.4); Red Cell Distribution Width 16.4 % (11.5-14.5); White Blood Count 6.7 K/mm3 (4.5-10.0)
[2021-07-10 08:34] LABS: Anion Gap 7 mmol/L (8-16); Blood Urea Nitrogen 60 mg/dL (7-17); Calcium 10.5 mg/dL (8.4-10.2); Carbon Dioxide 26 mmol/L (22-30); Chloride 107 mmol/L (98-107); Estimated CRCL calculation 22 ml/min; Estimated Glomerular Filt Rate 17; Glucose 88 mg/dL (65-110); Potassium 3.8 mmol/L (3.4-5.0); Sodium 140 mmol/L (137-145)
[2021-07-10] MEDS: OMEGA 3 POLYUNSAT FATTY ACIDS 1 GM CAP 2 GM PO ×2 (09:15→17:00)
[2021-07-10] MEDS: ASPIRIN 81 MG ENTERIC TABLET PO (09:16)
[2021-07-10] MEDS: lamoTRIgine 25 MG TABLET 75 MG PO ×2 (09:16→20:10)
[2021-07-10] MEDS: CHOLECALCIFEROL 1,000 UNITS TABLET 1000 UNITS PO ×2 (09:17→17:02)
[2021-07-10] MEDS: METOPROLOL TARTRATE 50 MG TAB PO ×2 (09:17→20:11)
[2021-07-10] MEDS: APIXABAN 5 MG TABLET PO ×2 (09:19→20:09)
[2021-07-10] MEDS: amLODIPine BESYLATE 5 MG TABLET PO (09:19)
[2021-07-10] MEDS: hydrALAZINE HCL 50 MG TABLET PO ×4 (09:20→20:12)
[2021-07-10] MEDS: LINEZOLID 600 MG TABLET PO ×2 (09:20→20:11)
[2021-07-10] MEDS: LORATADINE 10 MG TABLET PO (09:20)
[2021-07-10] MEDS: SODIUM BICARBONATE TAB 650 MG TABLET PO ×2 (09:20→17:01)
[2021-07-10] MEDS: FOLIC ACID 0.4 MG TABLET 0.8 MG PO (09:21)
[2021-07-10] MEDS: ROSUVASTATIN 10 MG TABLET 20 MG PO (09:22)
[2021-07-10] MEDS: CYANOCOBALAMIN 1,000 MCG TABLET 1000 MCG PO (09:22)
[2021-07-10] MEDS: SACCHAROMYCES BOULARDII 250 MG CAPSULE PO ×2 (09:25→17:02)
[2021-07-10 09:33] LABS: Vancomycin Trough 18.1 ug/mL (10.0-20.0)
--- NOTE | 2021-07-10 11:28 | PM.IMPN ---
Progress Note: A&P Assessment and Plan (1) AMS (altered mental status): Code(s): R41.82 - Altered mental status, unspecified Status: Acute Assessment and Plan: Patient's daughter is very concerned with her mental status. Supposedly this has been going on for 1 month since being hospitalized at [facility] where she was intubated after a reported seizure. At [facility] she reported having a lumbar puncture, MRI brain, and no findings for her altered mental status. She was then discharged to an SNF facility and then our acute rehab facility and she has still been acting altered, confused and defer from her baseline 1 month prior. MRI was completed but she did not tolerate laying down for very long. It was a very limited exam but saw no acute abnormality of what could have been completed. Dr. Alonzo Neurology completed an EEG we are waiting for to be read by him Believe part of her altered mental status could be metabolic encephalopathy from acute UTI since Enterococcus was just found and antibiotics were switched (#4) Verses early dementia and confusion with changes recent with multiple hospitalization/SNF/TRC. Discussed with Dr. Alonzo who recommended to start Seroquel 25 mg, which she received yesterday afternoon. She tolerated medications well, per nursing staff, but still reporting seeing people in her room who are not there. Will check a lamotrigine level in her blood to see if it is abnormal due to her renal function and dosing, pending . Continue monitoring mental status. Appreciate neurology's input. (2) L3 vertebral fracture: Code(s): S32.039A - Unspecified fracture of third lumbar vertebra, initial encounter for closed fracture Status: Acute Assessment and Plan: CT imaging noted above The patient was post to be transferred to [facility] to their Ortho Spine Service but we received a call today stating that they will no longer except her because they are at max capacity with multiple their own patients in their ED waiting to be admitted. I called [facility] and talk to Dr. Bender Ortho/Spine who reviewed her images while on the phone. He recommended her having a custom TLSO brace or [employer] which would be better due to her protuberant abdomen. He recommended her having this brace in place any time she is sitting at a 30 degree angle, up walking around or sitting up. He recommends her being in this brace and then being able to start PT/OT therapy as tolerated. He recommends a x-ray of her thoracic spine once per week to manage the alignment. Currently it appears to be stable from the CT scan he reviewed. He reports they can follow her up in the [facility] in the next 3-4 weeks for further evaluation and monitoring. If any changes to her neuro status distally a then she needs any further evaluated and rediscussion can be made. I discussed this with the patient and daughter who understand and agree with the plan. Ordered the back brace she needs and wants she has it we can start PT/OT as tolerated. Continue monitoring. (3) Physical deconditioning: Code(s): R53.81 - Other malaise Status: Acute Assessment and Plan: PT/OT (4) UTI (urinary tract infection): Code(s): N39.0 - Urinary tract infection, site not specified Status: Acute Assessment and Plan: Growing Enterococcus UTI. Switched to IV Vanc (#3) based on renal function, will switch to PO Linezolid (#1) for 4 more days Continue PO abx (5) Diabetes type 2, uncontrolled: Qualifiers: Glycemic state: with hyperglycemia Qualified Code(s): E11.65 - Type 2 diabetes mellitus with hyperglycemia Code(s): E11.65 - Type 2 diabetes mellitus with hyperglycemia Status: Acute Assessment and Plan: Hgb A1c 8.4 on 06/24 SSI, accucheks Monitor (6) A-fib: Qualifiers: Atrial fibrillation type: unspecified Qualified Code(
--- NOTE | 2021-07-10 11:35 | WPDNEUROLOGY ---
Neurology EEG Report General Information Date of Study: 07/09/21 TEST eeg DIAGNOSIS seizure CONDITION OF RECORDING drowsy and sleep EEG NUMBER [id number] CLINICAL HISTORY patient reported she was found on the floor by her daughter and while waiting on ambulance she had a new onset seizures EEG DESCRIPTION basic resting occipital frequency consists of 5 to 7 hertz per 2nd theta low to medium voltage admixed with low to medium voltage 3 to 4 hertz per 2nd delta activity. Bilateral symmetrical sleep activity seen during sleep. Hyperventilation not done. Photic stimulation not done. Non paroxysmal. Nonfocal. Nonlateralizing. IMPRESSION Abnormal record due to the presence of bihemispheric theta and delta activity with absence of normal background rhythm posteriorly though there is no evidence of paroxysmal discharge on this tracing clinical correlation recommended. These abnormalities could be suggestive of underlying organic a metabolic encephalopathy or postictal state
--- NOTE | 2021-07-10 11:40 | WPDNEUROPN ---
Progress Note: A&P Additional Plan as discussed above Review of Systems Review of Systems: All systems reviewed & are unremarkable except as noted in HPI and below Exam Const: General: comfortable and no acute distress Eyes: General: appearance normal, both eyes and all related structures Sclera: sclerae normal Pupils: Equal, round and reactive pupils present EOM: EOMs intact bilaterally Neck: Neck: supple and no JVD Resp: Effort & Inspection: normal respiratory effort Auscultation: clear to auscultation bilaterally Cardio: Rate: regular rate Rhythm: regular rhythm GI: GI Palp: Yes Soft to palpation Auscultation: normal bowel sounds Neuro: General: deep tendon reflexes 2+ bilaterally Cognition (Neuro): normal cognition Speech: normal speech Motor exam (neuro): 5/5 motor strength present throughout and Normal motor muscle tone present throughout Sensory Exam: normal sensation Extrem: General: normal to inspection Psych: Mental Status: mental status grossly normal Affect: normal affect Objective Data Vital Signs Vital Signs: Vital Signs - 24 hr 07/09/21 12:17 07/09/21 15:04 07/09/21 20:56 Temperature 36.6 C Pulse Rate 50 L 52 L 61 Respiratory Rate 14 Blood Pressure 150/72 H 144/59 H Pulse Oximetry 96 96 07/09/21 21:20 07/10/21 04:41 07/10/21 09:17 Temperature 36.1 C L 36.6 C Pulse Rate 81 55 L 58 L Respiratory Rate 20 20 Blood Pressure 169/60 H 182/68 H Pulse Oximetry 97 96 07/10/21 09:25 07/10/21 10:31 Temperature Pulse Rate 58 L Respiratory Rate 20 Blood Pressure Pulse Oximetry 96 96 Intake/Output Intake/Output: Intake & Output 07/07/21 07/08/21 07/09/21 07/10/21 23:59 23:59 23:59 23:59 Intake Total 2360 1590 1840 240 Output Total 400 1275 1100 700 Balance 1960 860 795 -999 Meds/Results Medications: Active Medications Generic Name Dose Route Start Last Admin Trade Name Freq PRN Reason Stop Dose Admin Acetaminophen 650 mg 07/05/21 09:12 Acetaminophen 325 Mg Tablet PO Q4H PRN Mild Pain (1-3) or Fever Hydrocodone Bitart/Acetaminophen 1 tab 07/05/21 09:12 07/09/21 20:55 Hydrocodone/Acetaminophen (*Crx) 5-325 Mg Tablet PO 1 tab Q4H PRN Administration Moderate Pain (4-6) Amlodipine Besylate 5 mg 07/10/21 09:00 07/10/21 09:19 Amlodipine Besylate 5 Mg Tablet PO 5 mg QAM BIANKA Administration Apixaban 5 mg 07/05/21 09:00 07/10/21 09:19 Apixaban 5 Mg Tablet PO 5 mg Q12HR BIANKA Administration Aspirin 81 mg 07/06/21 09:00 07/10/21 09:16 Aspirin 81 Mg Enteric Tablet PO 81 mg DAILY BIANKA Administration Bisacodyl 10 mg 07/10/21 11:29 Bisacodyl 10 Mg Suppository RECTAL Q24H PRN Constipation Cyanocobalamin 1,000 mcg 07/06/21 09:00 07/10/21 09:22 Cyanocobalamin 1,000 Mcg Tablet PO 1,000 mcg DAILY BIANKA Administration Dextrose 12.5 gm 07/05/21 09:12 Dextrose 50% 25 Gm/50 Ml Syringe IV PUSH PRN PRN Hypoglycemia Protocol Docusate Sodium 100 mg 07/10/21 21:00 Docusate Sodium 100 Mg Capsule PO Q12HR [facility] Fish Oil 2 gm 07/05/21 17:00 07/10/21 09:15 [place] 3 Polyunsat Fatty Acids 1 Gm Cap PO 2 gm BID BIANKA Administration Folic Acid 0.8 mg 07/06/21 09:00 07/10/21 09:21 Folic Acid 0.4 Mg Tablet PO 0.8 mg DAILY BIANKA Administration Glucagon 1 mg 07/05/21 09:12 Glucagon For Inj 1 Mg Vial IM PRN PRN Hypoglycemia Protocol Glucose 15 gm 07/05/21 09:12 Glucose Oral Gel 15 Gm Of Glucse In 37.5 Gm Tube PO PRN PRN Hypoglycemia Protocol Hydralazine HCl 50 mg 07/05/21 08:00 07/10/21 11:30 Hydralazine Hcl 50 Mg Tablet PO 50 mg 0800,1200,1700,2100 BIANKA Administration Dextrose 1,000 mls @ 100 mls/hr 07/05/21 09:12 Dextrose 5% 1,000 Ml IVPB PRN PRN Hypoglycemia Protocol Insulin Aspart 2 - 5 units 07/05/21 12:00 07/10/21 08:05 Insulin Aspart (*Bkc) 100 Units/Ml SUB
[2021-07-10 11:49] LABS: Glucose Point of Care 126 mg/dl (65-105)
[2021-07-10] MEDS: polyethylene glycoL 3350 17 GM POWD.PACK PO (12:13)
[2021-07-10 16:25] LABS: Glucose Point of Care 143 mg/dl (65-105)
[2021-07-10] MEDS: ACETAMINOPHEN 325 MG TABLET 650 MG PO (17:08)
[2021-07-10] MEDS: QUEtiapine FUMARATE 25 MG TABLET PO (17:49)
[2021-07-10] MEDS: DOCUSATE SODIUM 100 MG CAPSULE PO (20:09)
[2021-07-10] MEDS: INSULIN GLARGINE (*BKC) 100 UNITS/ML 30 UNITS SUB-Q (20:16)
[2021-07-10 20:45] LABS: Glucose Point of Care 175 mg/dl (65-105)
[2021-07-11] MEDS: HYDROcodone/acetaminophen (*CRX) 5-325 MG TABLET 1 TAB PO ×2 (05:34→17:25)
[2021-07-11 05:52] VITALS: BP 170/80; PULSE 58; RESP 20; TEMP 36; O2SAT 97
[2021-07-11 07:34] LABS: Glucose Point of Care 85 mg/dl (65-105)
[2021-07-11 07:34] LABS: Glucose Point of Care 62 mg/dl (65-105)
[2021-07-11] MEDS: ROSUVASTATIN 10 MG TABLET 20 MG PO (08:30)
[2021-07-11] MEDS: OMEGA 3 POLYUNSAT FATTY ACIDS 1 GM CAP 2 GM PO ×2 (08:30→17:25)
[2021-07-11] MEDS: amLODIPine BESYLATE 5 MG TABLET PO (08:31)
[2021-07-11] MEDS: FOLIC ACID 0.4 MG TABLET 0.8 MG PO (08:31)
[2021-07-11] MEDS: LORATADINE 10 MG TABLET PO (08:31)
[2021-07-11] MEDS: ASPIRIN 81 MG ENTERIC TABLET PO (08:32)
[2021-07-11] MEDS: CHOLECALCIFEROL 1,000 UNITS TABLET 1000 UNITS PO ×2 (08:32→17:25)
[2021-07-11] MEDS: hydrALAZINE HCL 50 MG TABLET PO ×4 (08:32→20:32)
[2021-07-11] MEDS: APIXABAN 5 MG TABLET PO ×2 (08:32→20:32)
[2021-07-11] MEDS: CYANOCOBALAMIN 1,000 MCG TABLET 1000 MCG PO (08:32)
[2021-07-11] MEDS: DOCUSATE SODIUM 100 MG CAPSULE PO ×2 (08:32→20:32)
[2021-07-11] MEDS: lamoTRIgine 25 MG TABLET 75 MG PO ×2 (08:33→20:33)
[2021-07-11 08:34] VITALS: PULSE 76
[2021-07-11] MEDS: SACCHAROMYCES BOULARDII 250 MG CAPSULE PO ×2 (08:34→17:25)
[2021-07-11] MEDS: METOPROLOL TARTRATE 50 MG TAB PO ×2 (08:34→20:49)
[2021-07-11] MEDS: LINEZOLID 600 MG TABLET PO ×2 (08:34→20:33)
[2021-07-11] MEDS: SODIUM BICARBONATE TAB 650 MG TABLET PO ×2 (08:35→17:25)
--- NOTE | 2021-07-11 10:42 | PM.IMPN ---
Progress Note: A&P Assessment and Plan (1) AMS (altered mental status): Code(s): R41.82 - Altered mental status, unspecified Status: Acute Assessment and Plan: Patient's daughter is very concerned with her mental status. Supposedly this has been going on for 1 month since being hospitalized at [facility] where she was intubated after a reported seizure. At [facility] she reported having a lumbar puncture, MRI brain, and no findings for her altered mental status. She was then discharged to an SNF facility and then our acute rehab facility and she has still been acting altered, confused and defer from her baseline 1 month prior. MRI was completed but she did not tolerate laying down for very long. It was a very limited exam but saw no acute abnormality of what could have been completed. Dr. Alonzo Neurology completed an EEG showing no acute signs of seizure activity. Believe part of her altered mental status could be metabolic encephalopathy from acute UTI since Enterococcus was just found and antibiotics were switched (#5) Verses early dementia and confusion with changes recent with multiple hospitalization/SNF/TRC. Discussed with Dr. Alonzo who recommended to continue Seroquel [address] Alonzo talked with the patients daughter about her negative work up and need for follow up after discharge. Will check a lamotrigine level in her blood to see if it is abnormal due to her renal function and dosing, pending . Continue monitoring mental status. Appreciate neurology's input. (2) L3 vertebral fracture: Code(s): S32.039A - Unspecified fracture of third lumbar vertebra, initial encounter for closed fracture Status: Acute Assessment and Plan: CT imaging noted above The patient was post to be transferred to [facility] to their Ortho Spine Service but we received a call today stating that they will no longer except her because they are at max capacity with multiple their own patients in their ED waiting to be admitted. I called [facility] and talk to Dr. Bender Ortho/Spine who reviewed her images while on the phone. He recommended her having a custom TLSO brace or [employer] which would be better due to her protuberant abdomen. He recommended her having this brace in place any time she is sitting at a 30 degree angle, up walking around or sitting up. He recommends her being in this brace and then being able to start PT/OT therapy as tolerated. He recommends a x-ray of her thoracic spine once per week to manage the alignment. Currently it appears to be stable from the CT scan he reviewed. He reports they can follow her up in the [facility] in the next 3-4 weeks for further evaluation and monitoring. If any changes to her neuro status distally a then she needs any further evaluated and rediscussed can be made. I discussed this with the patient and daughter who understand and agree with the plan. She received back brace and PT/OT was started today. TRC consultation was placed. Continue monitoring. (3) Physical deconditioning: Code(s): R53.81 - Other malaise Status: Acute Assessment and Plan: PT/OT (4) UTI (urinary tract infection): Code(s): N39.0 - Urinary tract infection, site not specified Status: Acute Assessment and Plan: Growing Enterococcus UTI. Switched to IV Vanc (#4) based on renal function, will switch to PO Linezolid (#5) for 4 more days Continue PO abx (5) Diabetes type 2, uncontrolled: Qualifiers: Glycemic state: with hyperglycemia Qualified Code(s): E11.65 - Type 2 diabetes mellitus with hyperglycemia Code(s): E11.65 - Type 2 diabetes mellitus with hyperglycemia Status: Acute Assessment and Plan: Hgb A1c 8.4 on 06/24 SSI, accucheks Monitor (6) A-fib: Qualifiers: Atrial fibrillation type: unspecified Qualified Code(s): I48.91 - Unspecified atri
[2021-07-11 11:51] LABS: Glucose Point of Care 146 mg/dl (65-105)
[2021-07-11] MEDS: QUEtiapine FUMARATE 25 MG TABLET PO (11:59)
--- NOTE | 2021-07-11 13:56 | WPDNEUROPN ---
Progress Note: A&P Additional Plan stable treatment as such Review of Systems Review of Systems: All systems reviewed & are unremarkable except as noted in HPI and below Exam Const: General: cooperative, comfortable and no acute distress Nutritional Appearance: obese Orientation/consciousness: oriented to person and oriented to place Limitations: behavioral limitations HENMT: Head: normal to inspection, No palpable skull fracture present and normocephalic Ears: hearing grossly normal bilaterally General nose exam: Normal external nose present Face and sinus: normal facial exam Mouth: Yes Normal oral and palatal mucosa present Eyes: General: appearance normal, both eyes and all related structures Visual Flores: normal visual flores by confrontation Alignment and Position: alignment normal Periorbital: periorbital findings normal Eyelids: eyelids normal Conjunctivae: conjunctivae normal Sclera: sclerae normal Cornea: corneas normal Pupils: Equal, round and reactive pupils present EOM: EOMs intact bilaterally Neck: Neck: full ROM and no lymphadenopathy Resp: Effort & Inspection: normal respiratory effort and able to speak in complete sentences Auscultation: clear to auscultation bilaterally Cardio: Rhythm: regular rhythm Neuro: General: oriented to person, oriented to place, moves all extremities and CN's II-XI intact bilaterally Cognition (Neuro): normal cognition Speech: normal speech Sensory Exam: normal sensation Deep tendon reflexes (DTR's): Right triceps reflex intensity grade: 1+, Left triceps reflex intensity grade: 1+, Rt Biceps (C5, C6): 1+, Left biceps reflex intensity grade: 1+, Right brachioradialis reflex intensity grade: 1+, Left brachioradialis reflex intensity grade: 1+, Right patellar reflex intensity grade: 1+, Left patellar reflex intensity grade: 1+, Right ankle reflex intensity grade: 1+ and Left ankle reflex intensity grade: 1+ Plantar Reflex Responses: downgoing: bilateral Objective Data Vital Signs Vital Signs: Vital Signs - 24 hr 07/10/21 14:00 07/10/21 20:00 07/10/21 20:11 Temperature 37.2 C Pulse Rate 66 60 60 Respiratory Rate 18 Blood Pressure 118/64 Pulse Oximetry 100 07/10/21 21:24 07/11/21 05:52 07/11/21 08:34 Temperature 36.4 C L 36.0 C L Pulse Rate 60 58 L 76 Respiratory Rate 20 20 Blood Pressure 168/70 H 170/80 H Pulse Oximetry 97 97 Intake/Output Intake/Output: Intake & Output 07/08/21 07/09/21 07/10/21 07/11/21 23:59 23:59 23:59 23:59 Intake Total 1590 1840 1680 720 Output Total 1275 1100 1700 550 Balance 315 740 -20 170 Meds/Results Medications: Active Medications Generic Name Dose Route Start Last Admin Trade Name Freq PRN Reason Stop Dose Admin Acetaminophen 650 mg 07/05/21 09:12 07/10/21 17:08 Acetaminophen 325 Mg Tablet PO 650 mg Q4H PRN Administration Mild Pain (1-3) or Fever Hydrocodone Bitart/Acetaminophen 1 tab 07/05/21 09:12 07/11/21 05:34 Hydrocodone/Acetaminophen (*Crx) 5-325 Mg Tablet PO 1 tab Q4H PRN Administration Moderate Pain (4-6) Amlodipine Besylate 5 mg 07/10/21 09:00 07/11/21 08:31 Amlodipine Besylate 5 Mg Tablet PO 5 mg QAM BIANKA Administration Apixaban 5 mg 07/05/21 09:00 07/11/21 08:32 Apixaban 5 Mg Tablet PO 5 mg Q12HR BIANKA Administration Aspirin 81 mg 07/06/21 09:00 07/11/21 08:32 Aspirin 81 Mg Enteric Tablet PO 81 mg DAILY BIANKA Administration Bisacodyl 10 mg 07/10/21 11:29 Bisacodyl 10 Mg Suppository RECTAL Q24H PRN Constipation Cyanocobalamin 1,000 mcg 07/06/21 09:00 07/11/21 08:32 Cyanocobalamin 1,000 Mcg Tablet PO 1,000 mcg DAILY BIANKA Administration Dextrose 12.5 gm 07/05/21 09:12 Dextrose 50% 25 Gm/50 Ml Syringe IV PUSH PRN PRN Hypoglycemia Protocol Docusate Sodium 100 mg 07/10/21 21:00 07/11/21 08:32 Docusate Sodium 100 Mg Capsule PO 100 mg Q12HR BIANKA Administration Fish Oil
[2021-07-11 14:25] VITALS: BP 135/71; PULSE 50; RESP 14; TEMP 36.2; O2SAT 98
[2021-07-11 17:07] LABS: Glucose Point of Care 135 mg/dl (65-105)
[2021-07-11] MEDS: INSULIN GLARGINE (*BKC) 100 UNITS/ML 30 UNITS SUB-Q (20:32)
[2021-07-11 20:49] VITALS: PULSE 55
[2021-07-11 21:17] LABS: Glucose Point of Care 162 mg/dl (65-105)
[2021-07-11 22:00] VITALS: BP 168/72; PULSE 58; RESP 20; TEMP 36; O2SAT 95
[2021-07-12 06:00] VITALS: BP 153/63; PULSE 58; RESP 18; TEMP 36.1; O2SAT 99
[2021-07-12 07:04] LABS: Glucose Point of Care 121 mg/dl (65-105)
[2021-07-12] MEDS: SODIUM BICARBONATE TAB 650 MG TABLET PO ×2 (09:14→17:20)
[2021-07-12] MEDS: SACCHAROMYCES BOULARDII 250 MG CAPSULE PO ×2 (09:14→17:20)
[2021-07-12] MEDS: hydrALAZINE HCL 50 MG TABLET PO ×4 (09:14→20:55)
[2021-07-12] MEDS: CYANOCOBALAMIN 1,000 MCG TABLET 1000 MCG PO (09:15)
[2021-07-12] MEDS: amLODIPine BESYLATE 5 MG TABLET PO (09:15)
[2021-07-12] MEDS: lamoTRIgine 25 MG TABLET 75 MG PO ×2 (09:15→20:56)
[2021-07-12] MEDS: ROSUVASTATIN 10 MG TABLET 20 MG PO (09:15)
[2021-07-12] MEDS: FOLIC ACID 0.4 MG TABLET 0.8 MG PO (09:15)
[2021-07-12] MEDS: APIXABAN 5 MG TABLET PO ×2 (09:15→20:55)
[2021-07-12] MEDS: ASPIRIN 81 MG ENTERIC TABLET PO (09:15)
[2021-07-12] MEDS: QUEtiapine FUMARATE 25 MG TABLET PO (09:15)
[2021-07-12] MEDS: LORATADINE 10 MG TABLET PO (09:15)
[2021-07-12] MEDS: OMEGA 3 POLYUNSAT FATTY ACIDS 1 GM CAP 2 GM PO ×2 (09:15→17:20)
[2021-07-12] MEDS: LINEZOLID 600 MG TABLET PO ×2 (09:15→20:56)
[2021-07-12] MEDS: CHOLECALCIFEROL 1,000 UNITS TABLET 1000 UNITS PO ×2 (09:15→17:20)
[2021-07-12] MEDS: DOCUSATE SODIUM 100 MG CAPSULE PO ×2 (09:15→20:55)
[2021-07-12 09:16] VITALS: PULSE 75
[2021-07-12] MEDS: METOPROLOL TARTRATE 50 MG TAB PO ×2 (09:16→20:56)
[2021-07-12] MEDS: HYDROcodone/acetaminophen (*CRX) 5-325 MG TABLET 1 TAB PO (09:16)
--- NOTE | 2021-07-12 10:02 | PM.IMPN ---
Progress Note: A&P Assessment and Plan (1) AMS (altered mental status): Code(s): R41.82 - Altered mental status, unspecified Status: Acute Assessment and Plan: Patient's daughter is very concerned with her mental status. Supposedly this has been going on for 1 month since being hospitalized at [facility] where she was intubated after a reported seizure. At [facility] she reported having a lumbar puncture, MRI brain, and no findings for her altered mental status. She was then discharged to an SNF facility and then our acute rehab facility and she has still been acting altered, confused and defer from her baseline 1 month prior. MRI was completed but she did not tolerate laying down for very long. It was a very limited exam but saw no acute abnormality of what could have been completed. Dr. Alonzo Neurology completed an EEG showing no acute signs of seizure activity. Believe part of her altered mental status could be metabolic encephalopathy from acute UTI since Enterococcus was just found and antibiotics were switched (#6) Verses early dementia and confusion with changes recent with multiple hospitalization/SNF/TRC. Discussed with Dr. Alonzo who recommended to continue Seroquel [address] Alonzo talked with the patients daughter about her negative work up and need for follow up after discharge. Will check a lamotrigine level in her blood to see if it is abnormal due to her renal function and dosing, pending . Continue monitoring mental status. Appreciate neurology's input. (2) L3 vertebral fracture: Code(s): S32.039A - Unspecified fracture of third lumbar vertebra, initial encounter for closed fracture Status: Acute Assessment and Plan: CT imaging noted above The patient was post to be transferred to [facility] to their Ortho Spine Service but we received a call today stating that they will no longer except her because they are at max capacity with multiple their own patients in their ED waiting to be admitted. I called [facility] and talk to Dr. Bender Ortho/Spine who reviewed her images while on the phone. He recommended her having a custom TLSO brace or [employer] which would be better due to her protuberant abdomen. He recommended her having this brace in place any time she is sitting at a 30 degree angle, up walking around or sitting up. He recommends her being in this brace and then being able to start PT/OT therapy as tolerated. He recommends a x-ray of her thoracic spine once per week to manage the alignment. Currently it appears to be stable from the CT scan he reviewed. He reports they can follow her up in the [facility] in the next 3-4 weeks for further evaluation and monitoring. If any changes to her neuro status distally a then she needs any further evaluated and rediscussed can be made. I discussed this with the patient and daughter who understand and agree with the plan. She received back brace and PT/OT was started. TRC consultation was placed. Continue monitoring. (3) Physical deconditioning: Code(s): R53.81 - Other malaise Status: Acute Assessment and Plan: PT/OT (4) UTI (urinary tract infection): Code(s): N39.0 - Urinary tract infection, site not specified Status: Acute Assessment and Plan: Growing Enterococcus UTI. Switched to IV Vanc (#4) based on renal function, will switch to PO Linezolid for 2 more days Continue PO abx (5) Diabetes type 2, uncontrolled: Qualifiers: Glycemic state: with hyperglycemia Qualified Code(s): E11.65 - Type 2 diabetes mellitus with hyperglycemia Code(s): E11.65 - Type 2 diabetes mellitus with hyperglycemia Status: Acute Assessment and Plan: Hgb A1c 8.4 on 06/24 SSI, accucheks Monitor (6) A-fib: Qualifiers: Atrial fibrillation type: unspecified Qualified Code(s): I48.91 - Unspecified atrial fibrillat
[2021-07-12 12:08] LABS: Glucose Point of Care 261 mg/dl (65-105)
[2021-07-12] MEDS: INSULIN ASPART (*BKC) 100 UNITS/ML SUB-Q (12:31)
[2021-07-12 14:50] VITALS: BP 141/54; PULSE 51; RESP 16; TEMP 36.5; O2SAT 97
[2021-07-12 16:49] LABS: Glucose Point of Care 165 mg/dl (65-105)
[2021-07-12 20:00] VITALS: PULSE 80; RESP 16; O2SAT 97
[2021-07-12 20:56] VITALS: PULSE 80
[2021-07-12] MEDS: INSULIN GLARGINE (*BKC) 100 UNITS/ML 30 UNITS SUB-Q (20:59)
[2021-07-12 21:06] LABS: Glucose Point of Care 210 mg/dl (65-105)
[2021-07-12 22:00] VITALS: BP 166/68; PULSE 58; RESP 20; TEMP 36.1; O2SAT 96
[2021-07-12 23:33] LABS: Lamotrigine Lamictal 2.8 mcg/mL (4.0-18.0)
[2021-07-13 06:00] VITALS: BP 168/78; PULSE 58; RESP 20; TEMP 36.4; O2SAT 98
[2021-07-13 06:17] LABS: Anion Gap 6 mmol/L (8-16); Blood Urea Nitrogen 48 mg/dL (7-17); Calcium 10.7 mg/dL (8.4-10.2); Carbon Dioxide 28 mmol/L (22-30); Chloride 105 mmol/L (98-107); Estimated CRCL calculation 22 ml/min; Estimated Glomerular Filt Rate 17; Glucose 160 mg/dL (65-110); Potassium 3.8 mmol/L (3.4-5.0); Sodium 139 mmol/L (137-145)
[2021-07-13 07:02] LABS: Glucose Point of Care 137 mg/dl (65-105)
[2021-07-13] MEDS: CHOLECALCIFEROL 1,000 UNITS TABLET 1000 UNITS PO ×2 (08:10→16:50)
[2021-07-13 08:11] VITALS: PULSE 72
[2021-07-13] MEDS: APIXABAN 5 MG TABLET PO ×2 (08:11→20:32)
[2021-07-13] MEDS: CYANOCOBALAMIN 1,000 MCG TABLET 1000 MCG PO (08:11)
[2021-07-13] MEDS: SODIUM BICARBONATE TAB 650 MG TABLET PO ×2 (08:11→16:50)
[2021-07-13] MEDS: ASPIRIN 81 MG ENTERIC TABLET PO (08:11)
[2021-07-13] MEDS: LORATADINE 10 MG TABLET PO (08:11)
[2021-07-13] MEDS: DOCUSATE SODIUM 100 MG CAPSULE PO ×2 (08:11→20:32)
[2021-07-13] MEDS: LINEZOLID 600 MG TABLET PO ×2 (08:11→20:32)
[2021-07-13] MEDS: amLODIPine BESYLATE 5 MG TABLET PO (08:11)
[2021-07-13] MEDS: SACCHAROMYCES BOULARDII 250 MG CAPSULE PO ×2 (08:11→16:51)
[2021-07-13] MEDS: METOPROLOL TARTRATE 50 MG TAB PO (08:11)
[2021-07-13] MEDS: FOLIC ACID 0.4 MG TABLET 0.8 MG PO (08:11)
[2021-07-13] MEDS: ROSUVASTATIN 10 MG TABLET 20 MG PO (08:12)
[2021-07-13] MEDS: OMEGA 3 POLYUNSAT FATTY ACIDS 1 GM CAP 2 GM PO ×2 (08:12→16:50)
[2021-07-13] MEDS: QUEtiapine FUMARATE 25 MG TABLET PO (08:12)
[2021-07-13] MEDS: hydrALAZINE HCL 50 MG TABLET PO ×4 (08:12→20:32)
[2021-07-13] MEDS: lamoTRIgine 25 MG TABLET 75 MG PO (08:12)
[2021-07-13] MEDS: HYDROcodone/acetaminophen (*CRX) 5-325 MG TABLET 1 TAB PO (08:23)
--- NOTE | 2021-07-13 10:21 | PCOTNOTE ---
Spoke with Dr. Torito Tracy, who is not the dr who ordered the brace, referred me to unknown Dr. , apparently at [place] who remotely ordered the brace. Will follow up.
--- NOTE | 2021-07-13 10:49 | PCOTNOTE ---
Attempted to speak with hospitalist for information regarding physician who ordered brace for pt. and clarification on brace wearing schedule.
--- NOTE | 2021-07-13 10:57 | PCNWS ---
Weekly nutritional screen. Patient is tolerating current diet with adequate intake. No weight loss reported. No nutritional needs at this time.
--- NOTE | 2021-07-13 11:36 | PCOTNOTE ---
Spoke with hospitalist regarding plan of care for brace wear. Confirmed pt.should wear brace when laying above 30 degrees in bed, and when out of bed, can take off at night when laying flat.
[2021-07-13] MEDS: INSULIN ASPART (*BKC) 100 UNITS/ML SUB-Q (12:15)
[2021-07-13 12:17] LABS: Glucose Point of Care 249 mg/dl (65-105)
[2021-07-13 14:50] VITALS: BP 129/57; PULSE 53; RESP 18; TEMP 36.3; O2SAT 97
--- NOTE | 2021-07-13 15:56 | PM.IMPN ---
Progress Note: A&P Assessment and Plan (1) AMS (altered mental status): Code(s): R41.82 - Altered mental status, unspecified Status: Acute Assessment and Plan: Patient's daughter is very concerned with her mental status. Supposedly this has been going on for 1 month since being hospitalized at [facility] where she was intubated after a reported seizure. At [facility] she reported having a lumbar puncture, MRI brain, and no findings for her altered mental status. She was then discharged to an SNF facility and then our acute rehab facility and she has still been acting altered, confused and defer from her baseline 1 month prior. MRI was completed but she did not tolerate laying down for very long. It was a very limited exam but saw no acute abnormality of what could have been completed. Dr. Alonzo Neurology completed an EEG showing no acute signs of seizure activity. Believe part of her altered mental status could be metabolic encephalopathy from acute UTI since Enterococcus was just found and antibiotics were switched (#7- D/c abx tonight) Verses early dementia and confusion with changes recent with multiple hospitalization/SNF/TRC. Discussed with Dr. Alonzo who recommended to continue Seroquel [address] Alonzo talked with the patients daughter about her negative work up and need for follow up after discharge. Lamotrigine level was found to be low, so Dr. Alonzo recommended to increase her Lamotrigine to 100 mg Q12hrs. Recheck Lamotrigine level in 1 month. Daughter already has appointment with a psychiatrist once she is discharged from the hospital and a neurologist. Continue monitoring mental status. Appreciate neurology's input. (2) L3 vertebral fracture: Code(s): S32.039A - Unspecified fracture of third lumbar vertebra, initial encounter for closed fracture Status: Acute Assessment and Plan: CT imaging noted above The patient was post to be transferred to [facility] to their Ortho Spine Service but we received a call today stating that they will no longer except her because they are at max capacity with multiple their own patients in their ED waiting to be admitted. I called [facility] and talk to Dr. Napoleon Roy/Spine who reviewed her images while on the phone. He recommended her having a custom TLSO brace or [employer] which would be better due to her protuberant abdomen. He recommended her having this brace in place any time she is sitting at a 30 degree angle, up walking around or sitting up. He recommends her being in this brace and then being able to start PT/OT therapy as tolerated. He recommends a x-ray of her thoracic spine once per week to manage the alignment. Currently it appears to be stable from the CT scan he reviewed. He reports they can follow her up in the [facility] in the next 3-4 weeks for further evaluation and monitoring. If any changes to her neuro status distally a then she needs any further evaluated and rediscussed can be made. I discussed this with the patient and daughter who understand and agree with the plan. She received back brace and PT/OT was started. TRC consultation was placed. Continue monitoring. (3) Physical deconditioning: Code(s): R53.81 - Other malaise Status: Acute Assessment and Plan: PT/OT (4) UTI (urinary tract infection): Code(s): N39.0 - Urinary tract infection, site not specified Status: Acute Assessment and Plan: Growing Enterococcus UTI. Switched to IV Vanc (#4) based on renal function, will switch to PO Linezolid and last dose 07/13/21 PM, discontinue tonight. (5) Diabetes type 2, uncontrolled: Qualifiers: Glycemic state: with hyperglycemia Qualified Code(s): E11.65 - Type 2 diabetes mellitus with hyperglycemia Code(s): E11.65 - Type 2 diabetes mellitus with hyperglycemia Status: Acute Assessment and Plan: Hg
[2021-07-13 17:23] LABS: Glucose Point of Care 146 mg/dl (65-105)
[2021-07-13 20:00] VITALS: PULSE 53; RESP 18; O2SAT 97
[2021-07-13] MEDS: lamoTRIgine 100 MG TABLET PO (20:32)
[2021-07-13] MEDS: INSULIN GLARGINE (*BKC) 100 UNITS/ML 30 UNITS SUB-Q (20:34)
[2021-07-13 20:42] LABS: Glucose Point of Care 179 mg/dl (65-105)
[2021-07-13 21:59] VITALS: BP 153/62; PULSE 57; RESP 16; TEMP 36.4; O2SAT 94
[2021-07-14 06:00] VITALS: BP 155/64; PULSE 58; RESP 16; TEMP 36.1; O2SAT 96
[2021-07-14 06:54] LABS: Glucose Point of Care 78 mg/dl (65-105)
[2021-07-14] MEDS: HYDROcodone/acetaminophen (*CRX) 5-325 MG TABLET 1 TAB PO (06:57)
[2021-07-14] MEDS: SACCHAROMYCES BOULARDII 250 MG CAPSULE PO (08:25)
[2021-07-14] MEDS: lamoTRIgine 100 MG TABLET PO (08:25)
[2021-07-14] MEDS: amLODIPine BESYLATE 5 MG TABLET PO (08:25)
[2021-07-14] MEDS: OMEGA 3 POLYUNSAT FATTY ACIDS 1 GM CAP 2 GM PO (08:25)
[2021-07-14] MEDS: DOCUSATE SODIUM 100 MG CAPSULE PO (08:25)
[2021-07-14] MEDS: SODIUM BICARBONATE TAB 650 MG TABLET PO (08:25)
[2021-07-14] MEDS: CYANOCOBALAMIN 1,000 MCG TABLET 1000 MCG PO (08:25)
[2021-07-14] MEDS: hydrALAZINE HCL 50 MG TABLET PO ×2 (08:25→11:21)
[2021-07-14] MEDS: QUEtiapine FUMARATE 25 MG TABLET PO (08:25)
[2021-07-14] MEDS: LORATADINE 10 MG TABLET PO (08:25)
[2021-07-14] MEDS: ASPIRIN 81 MG ENTERIC TABLET PO (08:25)
[2021-07-14] MEDS: ROSUVASTATIN 10 MG TABLET 20 MG PO (08:25)
[2021-07-14] MEDS: APIXABAN 5 MG TABLET PO (08:25)
[2021-07-14 08:26] VITALS: PULSE 69
[2021-07-14] MEDS: METOPROLOL TARTRATE 50 MG TAB PO (08:26)
[2021-07-14] MEDS: FOLIC ACID 0.4 MG TABLET 0.8 MG PO (08:26)
[2021-07-14] MEDS: CHOLECALCIFEROL 1,000 UNITS TABLET 1000 UNITS PO (08:26)
[2021-07-14] MEDS: polyethylene glycoL 3350 17 GM POWD.PACK PO (08:27)
--- NOTE | 2021-07-14 09:18 | PCPTNOTE ---
Attempted to see patient for PT at this time, however patient declined due to anticipated discharge.
--- NOTE | 2021-07-14 10:43 | PCOTNOTE ---
Attempted to see patient for OT, patient declined due to pending discharge to rehab facility despite encouragement to participate. Will continue plan of care if patient does not discharge.
--- NOTE | 2021-07-14 11:25 | PM.DS ---
DS: Admitting Diagnosis Discharge Date Date of Service: 07/14/21 0800 Admitting Diagnosis Altered mental status DS: Discharge Diagnosis Discharge Diagnosis (1) AMS (altered mental status): Code(s): R41.82 - Altered mental status, unspecified Status: Acute Assessment and Plan: Patient's daughter is very concerned with her mental status. Supposedly this has been going on for 1 month since being hospitalized at [facility] where she was intubated after a reported seizure. At [facility] she reported having a lumbar puncture, MRI brain, and no findings for her altered mental status. She was then discharged to an SNF facility and then our acute rehab facility and she has still been acting altered, confused and defer from her baseline 1 month prior. MRI was completed but she did not tolerate laying down for very long. It was a very limited exam but saw no acute abnormality of what could have been completed. Dr. Alonzo Neurology completed an EEG showing no acute signs of seizure activity. Believe part of her altered mental status could be metabolic encephalopathy from acute UTI since Enterococcus was just found and antibiotics were switched (#7- D/c abx tonight) Verses early dementia and confusion with changes recent with multiple hospitalization/SNF/TRC. Discussed with Dr. Alonzo who recommended to continue Seroquel [address] Alonzo talked with the patients daughter about her negative work up and need for follow up after discharge. Lamotrigine level was found to be low, so Dr. Alonzo recommended to increase her Lamotrigine to 100 mg Q12hrs. Recheck Lamotrigine level in 1 month. Daughter already has appointment with a psychiatrist once she is discharged from the hospital and a neurologist. Continue monitoring mental status. Appreciate neurology's input. (2) L3 vertebral fracture: Code(s): S32.039A - Unspecified fracture of third lumbar vertebra, initial encounter for closed fracture Status: Acute Assessment and Plan: CT imaging noted above The patient was post to be transferred to [facility] to their Ortho Spine Service but we received a call today stating that they will no longer except her because they are at max capacity with multiple their own patients in their ED waiting to be admitted. I called [facility] and talk to Dr. Bender Ortho/Spine who reviewed her images while on the phone. He recommended her having a custom TLSO brace or [facility] which would be better due to her protuberant abdomen. He recommended her having this brace in place any time she is sitting at a 30 degree angle, up walking around or sitting up. He recommends her being in this brace and then being able to start PT/OT therapy as tolerated. He recommends a x-ray of her thoracic spine once per week to manage the alignment. Currently it appears to be stable from the CT scan he reviewed. He reports they can follow her up in the [facility] in the next 3-4 weeks for further evaluation and monitoring. If any changes to her neuro status distally a then she needs any further evaluated and rediscussed can be made. I discussed this with the patient and daughter who understand and agree with the plan. She received back brace and PT/OT was started. TRC consultation was placed. Continue monitoring. (3) Physical deconditioning: Code(s): R53.81 - Other malaise Status: Acute Assessment and Plan: PT/OT (4) UTI (urinary tract infection): Code(s): N39.0 - Urinary tract infection, site not specified Status: Acute Assessment and Plan: Growing Enterococcus UTI. Switched to IV Vanc (#4) based on renal function, will switch to PO Linezolid and last dose 07/13/21 PM, discontinue tonight. (5) Diabetes type 2, uncontrolled: Qualifiers: Glycemic state: with hyperglycemia Qualified Code(s): E11.65 - Type 2 diabetes mellitus with hyperglycemia
[2021-07-14 11:41] LABS: Glucose Point of Care 95 mg/dl (65-105)
[2021-07-14 11:53] LABS: EDCOVIDSCREEN Negative (Negative)
== END 2021-07-14 13:47 | DRG 552 ==
LOC: ANHED 17:57 → ANH2MED 07-05 01:52
PROVIDERS: Nurse Practitioner; Nurse Practitioner Adult Health; Admitting Provider Internal Medicine; Emergency Provider Emergency Medicine; PCP Internal Medicine; Visit Provider Physician Assistant
DX: S32.031A Stable burst fracture of third lumbar vertebra, initial encounter for closed fracture (principal); N39.0 Urinary tract infection, site not specified; I31.3 Pericardial effusion (noninflammatory); W19.XXXA Unspecified fall, initial encounter; Z20.822 Contact with and (suspected) exposure to COVID-19; B95.2 Enterococcus as the cause of diseases classified elsewhere; R41.82 Altered mental status, unspecified; M81.0 Age-related osteoporosis without current pathological fracture; E11.22 Type 2 diabetes mellitus with diabetic chronic kidney disease; I12.9 Hypertensive chronic kidney disease with stage 1 through stage 4 chronic kidney disease, or unspecified chronic kidney disease; N18.30 Chronic kidney disease, stage 3 unspecified; I48.91 Unspecified atrial fibrillation; R53.81 Other malaise; E11.65 Type 2 diabetes mellitus with hyperglycemia; E27.8 Other specified disorders of adrenal gland; Z88.2 Allergy status to sulfonamides; Z79.01 Long term (current) use of anticoagulants; Z79.4 Long term (current) use of insulin; Z79.82 Long term (current) use of aspirin; Z79.899 Other long term (current) drug therapy; Z98.42 Cataract extraction status, left eye; Z98.41 Cataract extraction status, right eye; Z96.1 Presence of intraocular lens
CPT/HCPCS: 36415; 51701; 70450; 70551; 71045; 72128; 72131; 72170; 73552; 73562; 80048; 80053; 80175; 80202; 81001; 82565; 82948; 85025; 85027; 86140; 87077; 87086; 87088; 87186; 87426; 93005; 93306; 95816; 96361; 96365; 96375; 97116; 97163; 97166; 97530; 99285; A9270; C9803; G0378; J0360; J0696; J0702; J1815; J2060; J2270; J3370; J7030

== ENCOUNTER 2022-02-16 15:26 | Inpatient (IN) | payer MEDICARE, OTHER, SELFPAY ==
--- NOTE | ~2022-02-16 | CT_ITS ---
EXAMINATION: CT brain wo con INDICATION: Altered mental status COMPARISON: 07/05/2021 TECHNIQUE: Standard unenhanced head CT. The dose-length product (DLP) was 983.67 mGy-cm. The mA was a djusted according to patient size. Iterative reconstruction technique was employed. FINDINGS: There is no acute intraparenchymal hemorrhage. No evidence of mass lesion. No evidence of a cute infarction. There is mild periventricular and subcortical hypodensity probably related to small vessel ischemic disease. There is mild prominence of the sulci and ventricles related to cerebral atr ophy. Intracranial calcified cerebral atherosclerosis is noted. There are no extra-axial collections. There is no mass effect or midline shift. Changes in the right lobe are likely from ocular lens surg elton. The visualized sinuses and mastoid air cells are well aerated. IMPRESSION: 1. No acute intracranial abnormality. 2. Age related findings. Reviewed, dictated and finalized at location B.
--- NOTE | ~2022-02-16 | XR_ITS ---
EXAMINATION: XR chest 2V DATE: 02/16/2022 17:46 INDICATION: Dizziness and hypertension TECHNIQUE: AP and lateral views of the chest are obtained. COMPARISON: 07/04/2021 FINDINGS: Cardiomegaly is noted. There are airspace opacities throughout the left lung. A small left pleural effusion is present. No pneumothorax is identified. There is moderate thoracic spondylosis. S urgical clips are noted in the right axilla and right upper quadrant. IMPRESSION: 1. Cardiomegaly. 2. Airspace opacities of the left lung which may reflect pneumonia, atelectasis, or pulmonary edema. 3. Small left pleural effusion. Reviewed, dictated and finalized at location F. IMPRESSION: 1. Cardiomegaly. 2. Airspace opacities of the left lung which may reflect pneumonia, atelectasis , or pulmonary edema. 3. Small left pleural effusion.
--- NOTE | ~2022-02-16 | CT_ITS ---
EXAMINATION: CT abdomen pelvis wo con DATE: 02/16/2022 19:38 INDICATION: Back pain TECHNIQUE: Computed tomography (CT) of the abdomen and pelvis was performed without intravenous contr ast. The dose-length product (DLP) was 1485.64 mGy-cm. Automated exposure control and iterative recon struction technique were employed. COMPARISON: 02/28/2020, 07/04/2021 FINDINGS: Cardiomegaly is noted. There is a small pericardial effusion. There is dependent atelectasi s in the left lung. Punctate calcifications in otherwise normal appearing liver and spleen likely rep resent healed granulomatous disease. The gallbladder is surgically absent. Respiratory motion artifac t slightly limits evaluation. The right kidney is atrophic and contains multiple cysts. There are mul tiple cysts of the left kidney as well, some of which appear to be hemorrhagic. The pancreas and left adrenal gland are normal. There is a stable 3.8 cm adenoma of the right adrenal gland. No pathologic ally enlarged abdominal or pelvic lymph nodes are identified. There is no free intraperitoneal gas or evidence of bowel obstruction. A large volume of colonic stool is present. The bladder is decompress ed by Braswell catheter. There is circumferential wall thickening of the urinary bladder with mild fat s tranding surrounding the bladder. There is an L3 burst fracture with interval worsening. Retropulsion of fracture fragments is not significantly changed but vertebral body height has decreased. IMPRESSION: 1. L3 burst fracture with interval worsening since the comparison lumbar spine CT. 2. Circumferential bladder wall thickening and fat stranding surrounding the urinary bladder which co uld reflect cystitis. Reviewed, dictated and finalized at location F. IMPRESSION: 1. L3 burst fracture with interval worsening since the comparison lumbar spine CT. 2. Circumferential bladder wall thickening and fat stranding surrounding the ur inary bladder which could reflect cystitis.
[2022-02-16 15:35] VITALS: BP 177/120; PULSE 91; RESP 18; TEMP 36.6; O2SAT 93
--- NOTE | 2022-02-16 17:24 | PC.NURSE ---
16FR ROBB INSERTED.BY THIS NURSE. DAUGHTER STATES SHE HAS CHRONIC ROBB AND ROBB WAS TO BE CHANGED THIS TUESDAY. EMS STATED WHEN PT WAS PICKED UP FROM [place] THE ROBB WAS JUST LYING IN THE BED AND NOT INSERTED.
--- NOTE | 2022-02-16 17:37 | PC.NURSE ---
PT TO OFF FLOOR FOR TESTING.
--- NOTE | 2022-02-16 18:00 | ED.WEAKNESS ---
HPI - Weakness General Chief complaint: Back Pain/Injury <Carrie Cummings PA-C - Last Filed: 02/16/22 21:02> Stated complaint: back pain <Carrie Cummings PA-C - Last Filed: 02/16/22 21:02> Time Seen by Provider: 02/16/22 17:05 <Carrie Cummings PA-C - Last Filed: 02/16/22 21:02> Source: patient and family <Carrie Cummings PA-C - Last Filed: 02/16/22 21:02> Mode of arrival: EMS <SARAH Javier Last Filed: 02/16/22 21:02> Limitations: dementia (patient is uncooperative) <SARAH aJvier Last Filed: 02/16/22 21:02> History of Present Illness HPI Narrative: This is a 76-year-old female that presents to the emergency department for generalized weakness. Ongoing over the last couple of days. Reportedly patient has not been wanting to eat or drink much. She has not been taking her daily medications. She has been complaining of generalized pain. Has indwelling Braswell with history of frequent UTIs. Patient will not cooperate with exam or answer any of my questions. Resting comfortably on stretcher. <Carrie Cummings PA-C - Last Filed: 02/16/22 21:02> Related Data Home medications: Home Medications Medication Instructions Recorded Confirmed apixaban 5 mg tablet 5 mg PO BID 10/15/19 01/19/22 fesoterodine 8 mg tablet,extended 8 mg PO DAILY 10/15/19 01/19/22 release 24 hr loratadine 10 mg capsule 10 mg PO DAILY 10/15/19 01/19/22 rosuvastatin 20 mg PO DAILY 06/12/20 01/19/22 aspirin 81 mg tablet,delayed 81 mg PO DAILY 08/18/20 01/19/22 release cyanocobalamin (vitamin B-12) 1,000 mcg PO DAILY 08/18/20 01/19/22 1,000 mcg tablet folic acid 800 mcg tablet 0.8 mg PO DAILY 08/18/20 01/19/22 nitroglycerin 0.4 mg sublingual 0.4 mg SUBLINGUAL Q5M PRN 08/18/20 01/19/22 tablet cholecalciferol (vitamin D3) 1,250 1,250 mcg PO WEEKLY 11/06/21 01/19/22 mcg (50,000 unit) capsule cholecalciferol (vitamin D3) 50 50 mcg PO DAILY 11/26/21 01/19/22 mcg (2,000 unit) capsule sitagliptin 50 mg tablet 50 mg PO DAILY 01/07/22 01/19/22 Lactobacillus acidoph-pectin PO 01/11/22 01/19/22 [Acidophilus-Pectin] cranberry PO 01/11/22 01/19/22 donepezil 5 mg tablet 5 mg PO QHS 01/11/22 01/19/22 estradiol 1 g VAGINAL 2XW 01/11/22 01/19/22 ferrous sulfate 324 mg (65 mg 324 mg PO DAILY 01/11/22 01/19/22 iron) tablet,delayed release insulin aspart U-100 100 unit/mL 1 sliding scale dose SUBCUT 01/11/22 01/19/22 (3 mL) subcutaneous pen USEASDIRECTD insulin glargine 100 unit/mL (3 15 unit SUBCUT QAM 01/11/22 01/19/22 mL) subcutaneous pen metoprolol succinate 100 mg 100 mg PO DAILY 01/11/22 01/19/22 capsule sprinkle, ext. release 24 hr ramelteon 8 mg tablet 8 mg PO QHS 01/11/22 01/19/22 trazodone 50 mg tablet 50 mg PO QHS PRN tablet 01/11/22 01/19/22 trospium 20 mg tablet 20 mg PO DAILY PRN tablet 01/11/22 01/19/22 <Carrie Cummings PA-C - Last Filed: 02/16/22 21:02> Allergies/Adverse reactions: Allergies Allergy/AdvReac Type Severity Reaction Status Date / Time Sulfa (Sulfonamide Allergy Itching Verified 01/18/22 15:38 Antibiotics) <Carrie Cummings PA-C - Last Filed: 02/16/22 21:02> Review of Systems Review of Systems: ROS unobtainable: Yes unobtainable due to mental status <Carrie Cummings PA-C - Last Filed: 02/16/22 21:02> [facility] Past Medical History Medical History: Medical History A-fib Benign essential hypertension Body mass index (BMI) 40.0-44.9, adult Cancer of right breast status post radiation and chemotherapy Carotid bruit less than 50% stenosis of right internal carotid artery a on Doppler 07/01/2020 Castlemans disease Chronic kidney disease, stage 3 Chronic UTI Constipation Depression Diabetes type 2, uncontrolled DM type 2 (diabetes mellitus, type 2) (~2019) Elevated BUN Elevated serum homocysteine level Hearing loss of both ears History of orthostatic hypotension
[2022-02-16 18:19] LABS: Basophils Percent Auto 0.4 % (0.2-1.2); Eosinophils Absolute Auto 0.1 K/mm3 (0-0.3); Eosinophils Percent Auto 1.1 % (0-4.4); Hematocrit 40.3 % (37.0-47.0); Hemoglobin 11.9 g/dL (12.0-15.0); Immature Granulocyte Absolute 0.02 K/mm3 (0.00-0.031); Immature Granulocyte Percent A 0.4 % (0-0.5); Lymphocytes Absolute Auto 1.09 K/mm3 (0.9-3.2); Lymphocytes Percent Auto 19.1 % (18.3-44.2); Mean Corpuscular HGB Conc 29.5 g/dl (32-36); Mean Corpuscular Hemoglobin 25.8 pg (26-34); Mean Corpuscular Volume 87.4 fl (80-100); Mean Platelet Volume 10.5 fl (7.4-10.4); Monocytes Absolute Auto 0.4 K/mm3 (0.1-0.6); Monocytes Percent Auto 7.5 % (2.6-8.5); Neutrophils Absolute Auto 4.1 K/mm3 (1.3-6.7); Neutrophils Percent Auto 71.5 % (45.5-73.1); Platelet Count Result 246 k/mm3 (150-375); Red Blood Count 4.61 M/mm3 (4.2-5.4); Red Cell Distribution Width 14.1 % (11.5-14.5); White Blood Count 5.7 K/mm3 (4.5-10.0)
[2022-02-16 18:26] LABS: Add Urine Microscopic? YES; Appearance Urine Turbid (Clear); Bacteria Urine 1+ /hpf; Bilirubin Urine Negative (Negative); Blood Urine 3+ (Negative); Color Urine Yellow (Yellow); Glucose Urine UA 2+ mg/dL (Negative); Ketones Urine 1+ mg/dL (Negative); Leukocyte Esterase Ur 3+ LEU/UL (Negative); Nitrate Urine Negative (Negative); Protein Urine 3+ mg/dL (Negative); RBC Urine >75 /hpf (0-2); Specific Grav Ur 1.016 (1.001-1.035); Squamous Epithelial Cell Urine Few /hpf (Few); Urobilinogen Urine Negative mg/dL (<2.0); WBC Clumps Urine Present /HPF; WBC Urine >75 /hpf
[2022-02-16 18:30] LABS: Alanine Aminotransferase 16 U/L (4-35); Albumin Level 3.9 g/dL (3.5-5.1); Alkaline Phosphatase 79 U/L (38-126); Anion Gap 8 mmol/L (8-16); Aspartate Amino Transferase 21 U/L (14-36); Bilirubin,Total 1.7 mg/dL (0.2-1.3); Blood Urea Nitrogen 51 mg/dL (7-17); Calcium 10.5 mg/dL (8.4-10.2); Carbon Dioxide 25 mmol/L (22-30); Chloride 105 mmol/L (98-107); Estimated CRCL calculation 20 ml/min; Estimated Glomerular Filt Rate 18; Glucose 142 mg/dL (65-110); INR 1.4; Lipase 53 U/L (23-300); Potassium 3.9 mmol/L (3.4-5.0); Sodium 138 mmol/L (137-145)
[2022-02-16 18:31] LABS: Partial Thromboplastin Time 29.2 SECONDS (22.3-36.8)
[2022-02-16 18:32] LABS: Hypochromasia 1+ (NORMAL); Platelet Estimate Adequate (Adequate)
[2022-02-16 18:33] LABS: Ovalocytes 1+ (NORMAL)
[2022-02-16] MEDS: SODIUM CHLORIDE 0.9% IV 500 ML 999 ML IV CONT (19:08)
--- NOTE | 2022-02-16 19:10 | PC.NURSE ---
Assuming care of pt.
[2022-02-16 19:30] VITALS: BP 177/112; PULSE 87; RESP 18; O2SAT 96
[2022-02-16 20:25] VITALS: BP 177/97; PULSE 86; RESP 18; O2SAT 98
[2022-02-16 21:26] VITALS: BP 170/100; PULSE 86; RESP 18; O2SAT 97
[2022-02-16 22:15] VITALS: BP 172/118; PULSE 101; RESP 20; TEMP 36.3; O2SAT 98
[2022-02-16 22:16] VITALS: BMI 35.2
--- NOTE | 2022-02-16 23:08 | ADMGEN ---
This patient, Maria R Barrientos, was admitted to [facility] Surg Room 329-01. Patient/family oriented to hospital policies and general routines including ID bracelet, bed and alarms, visiting hours, pain management, procedures, bathroom and other care routines, personal items, smoking policy, room service/diet, and visiting hours. Information on how to activate the Rapid Response Team has been discussed. Patient/Family are encouraged to report perceived risks to care and to ask questions if they do not understand what they are told or what they should do.
[2022-02-17] MEDS: hydrALAZINE HCL 20 MG/ML VIAL 10 MG IV PUSH (00:24)
--- NOTE | 2022-02-17 00:31 | PM.IMHP ---
H&P: HPI History of Present Illness Date/Time: 02/17/22 00:31 Chief Complaint: Altered mental status. Narrative: This is a 76-year-old female with past medical history significant for atrial fibrillation, rate control and anticoagulated, chronic kidney disease, hypertension, type 2 diabetes mellitus insulin dependent, depression, fall, vertebrae fracture. Patient is brought to the emergency room for evaluation due to concerns for patient's decreased overall functioning not wanting to participate in activities and staying in bed. Patient has been living in a rehabilitation facility. Most of the history has been obtained from daughter who is at bedside patient is not communicating at the time of my visit only answers questions yes or no. Preliminary workup was significant for worsening of burs vertebrae fracture present in prior admission, a urinalysis was significant for numerous WBCs present in the urine. Patient has been admitted for further evaluation management and treatment. Review of Systems Review of Systems: ROS unobtainable: Yes unobtainable due to mental status (Obtundation, delirium.) PMFSH Past Medical History Medical History A-fib Benign essential hypertension Body mass index (BMI) 40.0-44.9, adult Cancer of right breast status post radiation and chemotherapy Carotid bruit less than 50% stenosis of right internal carotid artery a on Doppler 07/01/2020 Castlemans disease Chronic kidney disease, stage 3 Chronic UTI Constipation Depression Diabetes type 2, uncontrolled DM type 2 (diabetes mellitus, type 2) (~2018) Elevated BUN Elevated serum homocysteine level Hearing loss of both ears History of orthostatic hypotension Hyperlipidemia Kidney stones of the left kidney with multiple lithotripsies Knee pain Left ventricular outflow obstruction echocardiogram May 2020 Mild cognitive impairment Osteoporosis DEXA scan 08/14/2020 Overactive bladder Physical deconditioning Stress incontinence in female Thoracic aortic aneurysm Thyroid nodule (~2014) Urinary incontinence Urinary incontinence Vitamin B12 deficiency Vitamin D deficiency Surgical History Surgical History Status post cataract extraction and insertion of intraocular lens of right eye Status post right breast lumpectomy Family History Family History Sibling Cerebrovascular accident Diabetes mellitus Father Diabetes mellitus Mother Cervical cancer Social History Social History Social History: The patient lives with her 46-year-old daughter. She is . She is a lifelong nonsmoker and does not drink alcohol or use illicit substances. She is retired from the [employer]. Primary care physician: Dr. Carl Maloney code status: Full code Surrogate decision maker: Daughter Smoking status: Never smoker Second hand tobacco smoke exposure: No Alcohol intake: never Substance use: never Substance use type: does not use Gender identity (if verbalized by the patient): Female Spiritual care concerns: No Meds Home Medications and Allergies Home Medications Medication Instructions Recorded Confirmed Type apixaban 5 mg tablet 5 mg PO BID 10/15/19 02/16/22 History fesoterodine 8 mg tablet,extended 4 mg PO DAILY 10/15/19 02/16/22 History release 24 hr rosuvastatin 20 mg PO DAILY 06/12/20 02/16/22 History cyanocobalamin (vitamin B-12) 1,000 mcg PO DAILY 08/18/20 02/16/22 History 1,000 mcg tablet folic acid 800 mcg tablet 0.8 mg PO DAILY 08/18/20 02/16/22 History nitroglycerin 0.4 mg sublingual 0.4 mg SUBLINGUAL Q5M PRN 08/18/20 02/16/22 History tablet icosapent ethyl 1 gram capsule 2 g PO BID #360 cap 12/10/20 02/16/22 Rx acetaminophen [Mapap 650 mg PO Q4H PRN 30 Days ta
[2022-02-17 06:00] VITALS: BP 139/87; PULSE 98; RESP 18; TEMP 37.1; O2SAT 98
[2022-02-17 07:53] LABS: Glucose Point of Care 112 mg/dl (65-105)
--- NOTE | 2022-02-17 08:05 | PC.NURSE ---
Called to notify Lala about glucose of 112. She told me to hold morning insulin and recheck at lunch per scheduled accu checks.
[2022-02-17] MEDS: FLUoxetine HCL 20 MG CAPSULE 40 MG PO (08:58)
[2022-02-17] MEDS: polyethylene glycoL 3350 17 GM POWD.PACK PO (08:58)
[2022-02-17] MEDS: ROSUVASTATIN 10 MG TABLET 20 MG PO (08:58)
[2022-02-17] MEDS: FOLIC ACID 0.4 MG TABLET 0.8 MG PO (08:58)
[2022-02-17] MEDS: CHOLECALCIFEROL 1,000 UNITS TABLET 2000 UNITS PO (08:58)
[2022-02-17] MEDS: NITROFURANTOIN MACROCRYSTALS 50 MG CAP PO (08:58)
[2022-02-17 08:59] VITALS: PULSE 118
[2022-02-17] MEDS: SODIUM BICARBONATE TAB 650 MG TABLET PO ×2 (08:59→17:09)
[2022-02-17] MEDS: LORATADINE 10 MG TABLET PO (08:59)
[2022-02-17] MEDS: BUMETANIDE 0.5 MG TABLET PO (08:59)
[2022-02-17] MEDS: APIXABAN 5 MG TABLET PO ×2 (08:59→17:09)
[2022-02-17] MEDS: ACIDOPHILUS/BULGARICUS CHEWABLE TABLET 1 TABLET PO (08:59)
[2022-02-17] MEDS: CYANOCOBALAMIN 1,000 MCG TABLET 1000 MCG PO (08:59)
[2022-02-17] MEDS: OMEGA 3 POLYUNSAT FATTY ACIDS 1 GM CAP 2 GM PO ×2 (08:59→17:09)
[2022-02-17] MEDS: METOPROLOL SUCCINATE EXT REL 100 MG TABCR PO (08:59)
--- NOTE | 2022-02-17 10:10 | PCOTNOTE ---
Attempted OT evaluation, despite encouragement to participate with therapy, patient adamantly refuses, answering no to all attempts at communication. RN notified, will follow.
--- NOTE | 2022-02-17 10:44 | P.PNIM_ITS ---
Progress Note: A&P Assessment and Plan (1) Urinary tract infection: Qualifiers: Hematuria presence: without hematuria Urinary tract infection type: acute cystitis Qualified Code(s): N30.00 - Acute cystitis without hematuria Code(s): N39.0 - Urinary tract infection, site not specified Status: Acute Assessment and Plan: * UA showed many white blood cells * History of frequent UTIs, prior culture showed Klebsiella oxytoca, Pseudomonas, Enterococcus, Serratia, with varied sensitivities to Rocephin * Rocephin started empirically, D/C home nitrofurantoin. * CT abdomen pelvis showed circumferential bladder wall thickening and fat stranding surrounding the urinary bladder which could reflect cystitis. * Urine cultures pending * Patient's daughter specifically requested Urology, Dr. Miller, consult on this case. Consult placed. (2) Burst fracture of lumbar vertebra: Qualifiers: Encounter type: subsequent encounter Fracture healing: with delayed healing Fracture type: closed Qualified Code(s): S32.001G - Stable burst fracture of unspecified lumbar vertebra, subsequent encounter for fracture with delayed healing Code(s): S32.001A - Stable burst fracture of unspecified lumbar vertebra, initial encounter for closed fracture Status: Acute Assessment and Plan: * Patient will follow-up in the outpatient setting for kyphoplasty, daughter is requesting physician recommendations for this. * Daughter requesting pain medication as needed, though patient denies any current pain. Tylenol is on board currently. (3) Mild cognitive impairment: Code(s): G31.84 - Mild cognitive impairment, so stated Status: Acute Assessment and Plan: * Likely secondary to underlying dementia * PT/OT ordered for patient. (4) A-fib: Qualifiers: Atrial fibrillation type: unspecified Qualified Code(s): I48.91 - Unspecified atrial fibrillation Code(s): I48.91 - Unspecified atrial fibrillation Status: Acute Assessment and Plan: * Irregularly irregular rhythm today. Rate control and anticoagulated. * Continue metoprolol and apixaban * Continue to monitor. (5) Diabetes type 2, uncontrolled: Qualifiers: Glycemic state: with hyperglycemia Qualified Code(s): E11.65 - Type 2 diabetes mellitus with hyperglycemia Code(s): E11.65 - Type 2 diabetes mellitus with hyperglycemia Status: Acute Assessment and Plan: * Patient is on a CGM at home, which she typically manages herself. Given altered behaviors, we will be managing her insulin during her stay. * Continue Lantus and aspart insulins * Accu-Cheks AC and HS * Diabetic diet (6) Chronic kidney disease, stage IV (severe): Code(s): N18.4 - Chronic kidney disease, stage 4 (severe) Status: Chronic Assessment and Plan: * Patient and her medical proxy is refusing IV fluids and request to trial oral rehydration at this time. Ca 10.5, likely due to acute dehydration, will see if this improves with fluid intake. Total intake today 838ml with 900ml out. * BUN/creatinine at patient's baseline 51/2.6 * Continue to monitor * Daily intake and output * Avoid nephrotoxins (Patient is currently on Bumex) (7) Hypertension: Qualifiers: Hypertension type: primary hypertension Qualified Code(s): I10 - Essential (primary) hypertension Code(s): I10 - Essential (primary) hyper
--- NOTE | 2022-02-17 10:44 | PM.IMPN ---
Progress Note: A&P Assessment and Plan (1) Urinary tract infection: Qualifiers: Hematuria presence: without hematuria Urinary tract infection type: acute cystitis Qualified Code(s): N30.00 - Acute cystitis without hematuria Code(s): N39.0 - Urinary tract infection, site not specified Status: Acute Assessment and Plan: UA showed many white blood cells History of frequent UTIs, prior culture showed Klebsiella oxytoca, Pseudomonas, Enterococcus, Serratia, with varied sensitivities to Rocephin Rocephin started empirically, D/C home nitrofurantoin. CT abdomen pelvis showed circumferential bladder wall thickening and fat stranding surrounding the urinary bladder which could reflect cystitis. Urine cultures pending Patient's daughter specifically requested Urology, Dr. Miller, consult on this case. Consult placed. (2) Burst fracture of lumbar vertebra: Qualifiers: Encounter type: subsequent encounter Fracture healing: with delayed healing Fracture type: closed Qualified Code(s): S32.001G - Stable burst fracture of unspecified lumbar vertebra, subsequent encounter for fracture with delayed healing Code(s): S32.001A - Stable burst fracture of unspecified lumbar vertebra, initial encounter for closed fracture Status: Acute Assessment and Plan: Patient will follow-up in the outpatient setting for kyphoplasty, daughter is requesting physician recommendations for this. Daughter requesting pain medication as needed, though patient denies any current pain. Tylenol is on board currently. (3) Mild cognitive impairment: Code(s): G31.84 - Mild cognitive impairment, so stated Status: Acute Assessment and Plan: Likely secondary to underlying dementia PT/OT ordered for patient. (4) A-fib: Qualifiers: Atrial fibrillation type: unspecified Qualified Code(s): I48.91 - Unspecified atrial fibrillation Code(s): I48.91 - Unspecified atrial fibrillation Status: Acute Assessment and Plan: Irregularly irregular rhythm today. Rate control and anticoagulated. Continue metoprolol and apixaban Continue to monitor. (5) Diabetes type 2, uncontrolled: Qualifiers: Glycemic state: with hyperglycemia Qualified Code(s): E11.65 - Type 2 diabetes mellitus with hyperglycemia Code(s): E11.65 - Type 2 diabetes mellitus with hyperglycemia Status: Acute Assessment and Plan: Patient is on a CGM at home, which she typically manages herself. Given altered behaviors, we will be managing her insulin during her stay. Continue Lantus and aspart insulins Accu-Cheks AC and HS Diabetic diet (6) Chronic kidney disease, stage IV (severe): Code(s): N18.4 - Chronic kidney disease, stage 4 (severe) Status: Chronic Assessment and Plan: Patient and her medical proxy is refusing IV fluids and request to trial oral rehydration at this time. Ca 10.5, likely due to acute dehydration, will see if this improves with fluid intake. Total intake today 838ml with 900ml out. BUN/creatinine at patient's baseline 51/2.6 Continue to monitor Daily intake and output Avoid nephrotoxins (Patient is currently on Bumex) (7) Hypertension: Qualifiers: Hypertension type: primary hypertension Qualified Code(s): I10 - Essential (primary) hypertension Code(s): I10 - Essential (primary) hypertension Status: Acute Assessment and Plan: Patient has been hypertensive during her stay here. 170s/100s. Patient has also been refusing to take her medications and is only taking them one at a time throughout the day. Discussed plan with daughter/ nursing to get her to take her medications. On Metoprololol succinate 100mg daily, bumetanide 0.5 mg PO daily. Subjective Date/time seen: 02/17/22 10:44 76-year-old female with history of r
[2022-02-17 11:42] LABS: Glucose Point of Care 120 mg/dl (65-105)
[2022-02-17 14:00] VITALS: BP 166/107; PULSE 119; RESP 18; TEMP 36.5; O2SAT 95
--- NOTE | 2022-02-17 14:10 | PCOTNOTE ---
Despite encouragement patient reports does not want to participate with OT at this time, additionally RN reports to hold for this afternoon due to increased blood pressure. Will follow.
--- NOTE | 2022-02-17 14:20 | PCPTNOTE ---
Despite encouragement patient reports does not want to participate with PT at this time, additionally RN reports to hold for this afternoon due to increased blood pressure. Will follow.
[2022-02-17 16:18] LABS: Glucose Point of Care 136 mg/dl (65-105)
[2022-02-17] MEDS: traZODone HCL 50 MG TABLET PO (20:02)
[2022-02-17 20:27] LABS: Glucose Point of Care 191 mg/dl (65-105)
[2022-02-17 21:44] VITALS: BP 136/84; PULSE 87; RESP 18; TEMP 36.3; O2SAT 92
[2022-02-18 06:00] VITALS: BP 152/89; PULSE 81; RESP 18; TEMP 37.2; O2SAT 94
--- NOTE | 2022-02-18 07:08 | WPDURCON ---
Assessment and Plan Assessment and plan (1) Debility: Code(s): R53.81 - Other malaise Status: Acute (2) Urinary tract infection: Qualifiers: Hematuria presence: without hematuria Urinary tract infection type: acute cystitis Qualified Code(s): N30.00 - Acute cystitis without hematuria Code(s): N39.0 - Urinary tract infection, site not specified Status: Acute (3) Urge incontinence: Code(s): N39.41 - Urge incontinence Status: Acute Assessment and Plan: Pt. plagued with recurrent UTI x many years as result of female anatomy, recurrent urolithiasis (now essentially stone-free), progressive debility and immunocompromised condition. Really nothing to add other than treating current infection then resuming suppressive abx. Urge incontinence refractory to medical management - seems to be much more comfortable with indwelling catheter. Probably a good idea to change catheter while she's here (due to be changed on 02/26/2022). Urology Consult Note HPI Date Seen: 02/18/22 Requesting Physician: Lala Higgins PA-C Primary Care Provider: Carl Maloney MD Consult Narrative Narrative: Maria R Barrientos is a 76 year old female, who has been known to me for 10+ years, with a history of recurrent urolithiasis, recurrent urinary tract infections and, more recently, overactive bladder with urge incontinence. She has recently undergone extensive procedures for collection of stones in her right ureter and, for all intents and purposes, is stone free. Most of her adult life she has been troubled with recurrent urinary tract infections in these became noticeably worse with the onset of overactive bladder and urge incontinence. After exhaustive discussions with the patient and her daughter approximately 1 month ago we opted to treat her urge incontinence with a chronic indwelling catheter. The patient seems to be quite pleased and more comfortable with this catheter. Addition to the catheter she remains on suppressive nitrofurantoin 50 mg daily for her recurrent urinary tract infections Review of Systems Review of Systems: ROS unobtainable: Yes unobtainable due to mental status PMFSH Past Medical History Medical History A-fib Benign essential hypertension Body mass index (BMI) 40.0-44.9, adult Cancer of right breast status post radiation and chemotherapy Carotid bruit less than 50% stenosis of right internal carotid artery a on Doppler 07/01/2020 Castlemans disease Chronic kidney disease, stage 3 Chronic UTI Constipation Depression Diabetes type 2, uncontrolled DM type 2 (diabetes mellitus, type 2) (~2018) Elevated BUN Elevated serum homocysteine level Hearing loss of both ears History of orthostatic hypotension Hyperlipidemia Kidney stones of the left kidney with multiple lithotripsies Knee pain Left ventricular outflow obstruction echocardiogram May 2020 Mild cognitive impairment Osteoporosis DEXA scan 08/14/2020 Overactive bladder Physical deconditioning Stress incontinence in female Thoracic aortic aneurysm Thyroid nodule (~2014) Urinary incontinence Urinary incontinence Vitamin B12 deficiency Vitamin D deficiency Surgical History Surgical History Status post cataract extraction and insertion of intraocular lens of right eye Status post right breast lumpectomy Family History Family History Sibling Cerebrovascular accident Diabetes mellitus Father Diabetes mellitus Mother Cervical cancer Social History Social History Social History: The patient lives with her 46-year-old daughter. She is . She is a lifelong nonsmoker and does not drink alcohol or use illicit substances. She is retired from the [employer]. Primary
[2022-02-18 07:43] LABS: Glucose Point of Care 152 mg/dl (65-105)
--- NOTE | 2022-02-18 08:24 | P.PNIM_ITS ---
Progress Note: A&P Assessment and Plan (1) Urinary tract infection: Qualifiers: Hematuria presence: without hematuria Urinary tract infection type: acute cystitis Qualified Code(s): N30.00 - Acute cystitis without hematuria Code(s): N39.0 - Urinary tract infection, site not specified Status: Acute Assessment and Plan: * Urine culture showed E.Coli w/ sensitivities to Rocephin, will continue this course of antibiotics, discharge on cefdinir, likely tomorrow, as patient is progressing back to her cognitive baseline. * History of frequent UTIs * Hold home suppressive nitrofurantoin during stay * CT abdomen pelvis showed circumferential bladder wall thickening and fat stranding surrounding the urinary bladder which could reflect cystitis. * Dr. Miller consulted and advised appropriate antibiotic therapy with resumption of suppressive nitrofurantoin on discharge. * Asked nurse to change Braswell catheter tomorrow before discharge. (2) Burst fracture of lumbar vertebra: Qualifiers: Encounter type: subsequent encounter Fracture healing: with delayed healing Fracture type: closed Qualified Code(s): S32.001G - Stable burst fracture of unspecified lumbar vertebra, subsequent encounter for fracture with delayed healing Code(s): S32.001A - Stable burst fracture of unspecified lumbar vertebra, initial encounter for closed fracture Status: Acute Assessment and Plan: * CT abdomen pelvis showed L3 burst fracture with interval worsening since the comparison lumbar spine CT in June of 2021. * Patient will follow-up in the outpatient setting for kyphoplasty, daughter is requesting physician recommendations for this, we referred her to Dr. Mendoza, Neurosurgery. * No current concern for cauda equina syndrome, spinal instability, or uncontrollable pain. Patient denies pain currently. * Tylenol is on board currently. (3) Mild cognitive impairment: Code(s): G31.84 - Mild cognitive impairment, so stated Status: Acute Assessment and Plan: * patient is alert and aware today, much more responsive to questions. * Likely secondary to underlying dementia * PT/OT ordered for patient. (4) A-fib: Qualifiers: Atrial fibrillation type: unspecified Qualified Code(s): I48.91 - Unspecified atrial fibrillation Code(s): I48.91 - Unspecified atrial fibrillation Status: Acute Assessment and Plan: * Irregularly irregular rhythm today. Rate control and anticoagulated. * Continue metoprolol and apixaban * Continue to monitor. (5) Diabetes type 2, uncontrolled: Qualifiers: Glycemic state: with hyperglycemia Qualified Code(s): E11.65 - Type 2 diabetes mellitus with hyperglycemia Code(s): E11.65 - Type 2 diabetes mellitus with hyperglycemia Status: Acute Assessment and Plan: * Patient is on a CGM at home, which she typically manages herself. Given altered behaviors, we will be managing her insulin during her stay. * Glucose today 236 * Continue Lantus and aspart insulins * Accu-Cheks AC and HS * Diabetic diet (6) Chronic kidney disease, stage IV (severe): Code(s): N18.4 - Chronic kidney disease, stage 4 (severe) Status: Chronic Assessment and Plan: * Patient and her medical proxy is refusing IV fluids and request to trial oral rehydration at this time. Ca 10.1 today, total intake yesterday 1074mL with 1050ml out. * BUN/creatinine still at base
--- NOTE | 2022-02-18 08:24 | PM.IMPN ---
Progress Note: A&P Assessment and Plan (1) Urinary tract infection: Qualifiers: Hematuria presence: without hematuria Urinary tract infection type: acute cystitis Qualified Code(s): N30.00 - Acute cystitis without hematuria Code(s): N39.0 - Urinary tract infection, site not specified Status: Acute Assessment and Plan: Urine culture showed E.Coli w/ sensitivities to Rocephin, will continue this course of antibiotics, discharge on cefdinir, likely tomorrow, as patient is progressing back to her cognitive baseline. History of frequent UTIs Hold home suppressive nitrofurantoin during stay CT abdomen pelvis showed circumferential bladder wall thickening and fat stranding surrounding the urinary bladder which could reflect cystitis. Dr. Miller consulted and advised appropriate antibiotic therapy with resumption of suppressive nitrofurantoin on discharge. Asked nurse to change Braswell catheter tomorrow before discharge. (2) Burst fracture of lumbar vertebra: Qualifiers: Encounter type: subsequent encounter Fracture healing: with delayed healing Fracture type: closed Qualified Code(s): S32.001G - Stable burst fracture of unspecified lumbar vertebra, subsequent encounter for fracture with delayed healing Code(s): S32.001A - Stable burst fracture of unspecified lumbar vertebra, initial encounter for closed fracture Status: Acute Assessment and Plan: CT abdomen pelvis showed L3 burst fracture with interval worsening since the comparison lumbar spine CT in June of 2021. Patient will follow-up in the outpatient setting for kyphoplasty, daughter is requesting physician recommendations for this, we referred her to Dr. Mendoza, Neurosurgery. No current concern for cauda equina syndrome, spinal instability, or uncontrollable pain. Patient denies pain currently. Tylenol is on board currently. (3) Mild cognitive impairment: Code(s): G31.84 - Mild cognitive impairment, so stated Status: Acute Assessment and Plan: patient is alert and aware today, much more responsive to questions. Likely secondary to underlying dementia PT/OT ordered for patient. (4) A-fib: Qualifiers: Atrial fibrillation type: unspecified Qualified Code(s): I48.91 - Unspecified atrial fibrillation Code(s): I48.91 - Unspecified atrial fibrillation Status: Acute Assessment and Plan: Irregularly irregular rhythm today. Rate control and anticoagulated. Continue metoprolol and apixaban Continue to monitor. (5) Diabetes type 2, uncontrolled: Qualifiers: Glycemic state: with hyperglycemia Qualified Code(s): E11.65 - Type 2 diabetes mellitus with hyperglycemia Code(s): E11.65 - Type 2 diabetes mellitus with hyperglycemia Status: Acute Assessment and Plan: Patient is on a CGM at home, which she typically manages herself. Given altered behaviors, we will be managing her insulin during her stay. Glucose today 236 Continue Lantus and aspart insulins Accu-Cheks AC and HS Diabetic diet (6) Chronic kidney disease, stage IV (severe): Code(s): N18.4 - Chronic kidney disease, stage 4 (severe) Status: Chronic Assessment and Plan: Patient and her medical proxy is refusing IV fluids and request to trial oral rehydration at this time. Ca 10.1 today, total intake yesterday 1074mL with 1050ml out. BUN/creatinine still at baseline Continue to monitor Daily intake and output Avoid nephrotoxins (Patient is currently on Bumex) (7) Hypertension: Qualifiers: Hypertension type: primary hypertension Qualified Code(s): I10 - Essential (primary) hypertension Code(s): I10 - Essential (primary) hypertension Status: Acute Assessment and Plan: Blood pressures have improved today, and patient was cooperative with taking her medication
--- NOTE | 2022-02-18 09:10 | PCOTNOTE ---
Attempted OT evaluation patient reports will not get up with therapy at this time but maybe tomorrow . Will follow, RN notified.
--- NOTE | 2022-02-18 09:16 | PCPTNOTE ---
Attempted PT evaluation patient reports will not get up with therapy at this time but maybe tomorrow . Will follow, RN notified
[2022-02-18] MEDS: FLUoxetine HCL 20 MG CAPSULE 40 MG PO (09:59)
[2022-02-18] MEDS: CYANOCOBALAMIN 1,000 MCG TABLET 1000 MCG PO (10:00)
[2022-02-18] MEDS: FOLIC ACID 0.4 MG TABLET 0.8 MG PO (10:00)
[2022-02-18] MEDS: BUMETANIDE 0.5 MG TABLET PO (10:00)
[2022-02-18] MEDS: APIXABAN 5 MG TABLET PO ×2 (10:00→17:31)
[2022-02-18] MEDS: OMEGA 3 POLYUNSAT FATTY ACIDS 1 GM CAP 2 GM PO ×2 (10:00→17:31)
[2022-02-18] MEDS: ACIDOPHILUS/BULGARICUS CHEWABLE TABLET 1 TABLET PO (10:00)
[2022-02-18] MEDS: CHOLECALCIFEROL 1,000 UNITS TABLET 2000 UNITS PO (10:00)
[2022-02-18] MEDS: SODIUM BICARBONATE TAB 650 MG TABLET PO ×2 (10:00→17:31)
[2022-02-18] MEDS: METOPROLOL SUCCINATE EXT REL 100 MG TABCR PO (10:00)
[2022-02-18] MEDS: LORATADINE 10 MG TABLET PO (10:00)
[2022-02-18] MEDS: ROSUVASTATIN 10 MG TABLET 20 MG PO (10:00)
[2022-02-18] MEDS: INSULIN GLARGINE (*BKC) 100 UNITS/ML 15 UNITS SUB-Q (10:03)
[2022-02-18 12:18] LABS: Glucose Point of Care 246 mg/dl (65-105)
[2022-02-18] MEDS: INSULIN ASPART (*BKC) 100 UNITS/ML SUB-Q (12:29)
[2022-02-18 13:19] LABS: Basophils Percent Auto 0.3 % (0.2-1.2); Eosinophils Percent Auto 0.7 % (0-4.4); Hematocrit 34.6 % (37.0-47.0); Immature Granulocyte Absolute 0.01 K/mm3 (0.00-0.031); Immature Granulocyte Percent A 0.2 % (0-0.5); Lymphocytes Absolute Auto 1.34 K/mm3 (0.9-3.2); Lymphocytes Percent Auto 21.8 % (18.3-44.2); Mean Corpuscular HGB Conc 31.8 g/dl (32-36); Mean Corpuscular Hemoglobin 26.5 pg (26-34); Mean Corpuscular Volume 83.4 fl (80-100); Mean Platelet Volume 10.3 fl (7.4-10.4); Monocytes Absolute Auto 0.4 K/mm3 (0.1-0.6); Neutrophils Absolute Auto 4.3 K/mm3 (1.3-6.7); Platelet Count Result 256 k/mm3 (150-375); Red Blood Count 4.15 M/mm3 (4.2-5.4); Red Cell Distribution Width 14.4 % (11.5-14.5); White Blood Count 6.2 K/mm3 (4.5-10.0)
[2022-02-18 13:29] LABS: Alanine Aminotransferase 18 U/L (4-35); Albumin Level 3.6 g/dL (3.5-5.1); Alkaline Phosphatase 64 U/L (38-126); Anion Gap 7 mmol/L (8-16); Aspartate Amino Transferase 25 U/L (14-36); Bilirubin,Total 0.8 mg/dL (0.2-1.3); Blood Urea Nitrogen 48 mg/dL (7-17); Calcium 10.1 mg/dL (8.4-10.2); Carbon Dioxide 25 mmol/L (22-30); Chloride 105 mmol/L (98-107); Estimated CRCL calculation 21 ml/min; Estimated Glomerular Filt Rate 18; Glucose 236 mg/dL (65-110); Potassium 3.6 mmol/L (3.4-5.0); Sodium 137 mmol/L (137-145)
[2022-02-18 13:55] VITALS: BP 139/82; PULSE 81; RESP 19; TEMP 36.1; O2SAT 96
[2022-02-18 16:32] LABS: Glucose Point of Care 169 mg/dl (65-105)
--- NOTE | 2022-02-18 17:08 | PHAR ---
THE FOLLOWING HOME MEDS HAVE BEEN VERIFIED BY PHARMACY --TOVIAZ ER 4 MG TABS --RAMELTEON 8 MG TABLET
[2022-02-18] MEDS: ACETAMINOPHEN 325 MG TABLET 650 MG PO (18:09)
[2022-02-18] MEDS: traZODone HCL 50 MG TABLET PO (20:46)
[2022-02-18] MEDS: MICONAZOLE NITRATE 2% CREAM 30 GM TUBE 1 APPLIC TOPICAL (20:46)
[2022-02-18 21:00] LABS: Glucose Point of Care 176 mg/dl (65-105)
[2022-02-18 21:38] VITALS: BP 122/91; PULSE 40; RESP 16; TEMP 36.3; O2SAT 95
[2022-02-19 06:09] LABS: Basophils Percent Auto 0.4 % (0.2-1.2); Eosinophils Absolute Auto 0.1 K/mm3 (0-0.3); Eosinophils Percent Auto 2.5 % (0-4.4); Hemoglobin 11.2 g/dL (12.0-15.0); Immature Granulocyte Absolute 0.03 K/mm3 (0.00-0.031); Immature Granulocyte Percent A 0.5 % (0-0.5); Lymphocytes Absolute Auto 1.51 K/mm3 (0.9-3.2); Lymphocytes Percent Auto 26.6 % (18.3-44.2); Mean Corpuscular HGB Conc 31.1 g/dl (32-36); Mean Corpuscular Hemoglobin 26.7 pg (26-34); Mean Corpuscular Volume 85.7 fl (80-100); Mean Platelet Volume 10.8 fl (7.4-10.4); Monocytes Absolute Auto 0.5 K/mm3 (0.1-0.6); Monocytes Percent Auto 7.9 % (2.6-8.5); Neutrophils Absolute Auto 3.5 K/mm3 (1.3-6.7); Neutrophils Percent Auto 62.1 % (45.5-73.1); Platelet Count Result 239 k/mm3 (150-375); Red Cell Distribution Width 14.3 % (11.5-14.5); White Blood Count 5.7 K/mm3 (4.5-10.0)
[2022-02-19 06:23] LABS: Alanine Aminotransferase 16 U/L (4-35); Albumin Level 3.3 g/dL (3.5-5.1); Alkaline Phosphatase 65 U/L (38-126); Anion Gap 6 mmol/L (8-16); Aspartate Amino Transferase 22 U/L (14-36); Bilirubin,Total 0.6 mg/dL (0.2-1.3); Blood Urea Nitrogen 48 mg/dL (7-17); Calcium 10.1 mg/dL (8.4-10.2); Carbon Dioxide 25 mmol/L (22-30); Chloride 107 mmol/L (98-107); Estimated CRCL calculation 23 ml/min; Estimated Glomerular Filt Rate 21; Glucose 144 mg/dL (65-110); Potassium 3.5 mmol/L (3.4-5.0); Sodium 138 mmol/L (137-145)
[2022-02-19 08:08] LABS: Glucose Point of Care 151 mg/dl (65-105)
[2022-02-19 09:59] VITALS: BP 160/93; PULSE 85; RESP 18; TEMP 36.9; O2SAT 94
[2022-02-19] MEDS: MICONAZOLE NITRATE 2% CREAM 30 GM TUBE 1 APPLIC TOPICAL (10:04)
[2022-02-19] MEDS: EUCERIN CREAM 120 GM JAR 1 APPLIC TOPICAL (10:05)
--- NOTE | 2022-02-19 10:30 | PC.NURSE ---
Contacted Lala Higgins regarding patient's orientation. Patient only answered with head nods and yes or no responses when spoken to. Patient would not open eyes when speaking with RN. Patient would not wake up to eat her breakfast or take morning medications. RN informed provider of these findings.
--- NOTE | 2022-02-19 11:46 | P.PNIM_ITS ---
Progress Note: A&P Assessment and Plan (1) Urinary tract infection: Qualifiers: Hematuria presence: without hematuria Urinary tract infection type: acute cystitis Qualified Code(s): N30.00 - Acute cystitis without hematuria Code(s): N39.0 - Urinary tract infection, site not specified Status: Acute Assessment and Plan: * Deviation from behavior baseline today. Patient was nonresponsive during my exam, refusing to take medications, to eat, or to drink. VSS. Physical exam unremarkable. Patient's Braswell catheter exchanged upon admission to the hospital. The patient has a history of frequent UTIs, and is followed by Dr. Miller, who has been consulting on this case. Urine culture showed E.Coli w/ sensitivities to Rocephin, will continue this course of antibiotics, will likely discharge on cefdinir. * TSH WNL * No new medications added since yesterday. * PCP, Dr. Maloney, has been stopping in to see this patient and recommended psychiatry consultation today, which I have placed. (2) Burst fracture of lumbar vertebra: Qualifiers: Encounter type: subsequent encounter Fracture healing: with delayed healing Fracture type: closed Qualified Code(s): S32.001G - Stable burst fracture of unspecified lumbar vertebra, subsequent encounter for fracture with delayed healing Code(s): S32.001A - Stable burst fracture of unspecified lumbar vertebra, initial encounter for closed fracture Status: Acute Assessment and Plan: * CT abdomen pelvis showed L3 burst fracture with interval worsening since the comparison lumbar spine CT in June of 2021. * Patient will follow-up in the outpatient setting for kyphoplasty, daughter is requesting physician recommendations for this, we referred her to Dr. Mendoza, Neurosurgery. * No current concern for cauda equina syndrome, spinal instability, or uncontrollable pain. Patient denies pain currently. * Tylenol is on board currently. (3) Mild cognitive impairment: Code(s): G31.84 - Mild cognitive impairment, so stated Status: Acute Assessment and Plan: * Likely secondary to underlying dementia * PT/OT ordered for patient, though she is non-responsive, and non cooperative today. (4) A-fib: Qualifiers: Atrial fibrillation type: unspecified Qualified Code(s): I48.91 - Unspecified atrial fibrillation Code(s): I48.91 - Unspecified atrial fibrillation Status: Acute Assessment and Plan: * Irregularly irregular rhythm today. Rate controlled. * Patient is irregularly compliant with her medications, including her Apixaban. I started SCD use as secondary prophylaxis for this patient. * Continue metoprolol and apixaban * Continue to monitor. (5) Diabetes type 2, uncontrolled: Qualifiers: Glycemic state: with hyperglycemia Qualified Code(s): E11.65 - Type 2 diabetes mellitus with hyperglycemia Code(s): E11.65 - Type 2 diabetes mellitus with hyperglycemia Status: Acute Assessment and Plan: * Patient is on a CGM at home,D/C during her stay here. * Glucose today 144 today * Continue Lantus and aspart insulins * Accu-Cheks AC and HS * Diabetic diet (6) Chronic kidney disease, stage IV (severe): Code(s): N18.4 - Chronic kidney disease, stage 4 (severe) Status: Chronic Assessment and Plan: * Ca 10.1 today, total intake yesterday 750 w/ 1100 out. * BUN/creatinine still at baseline * Continue to monitor
--- NOTE | 2022-02-19 11:46 | PM.IMPN ---
Progress Note: A&P Assessment and Plan (1) Urinary tract infection: Qualifiers: Hematuria presence: without hematuria Urinary tract infection type: acute cystitis Qualified Code(s): N30.00 - Acute cystitis without hematuria Code(s): N39.0 - Urinary tract infection, site not specified Status: Acute Assessment and Plan: Deviation from behavior baseline today. Patient was nonresponsive during my exam, refusing to take medications, to eat, or to drink. VSS. Physical exam unremarkable. Patient's Braswell catheter exchanged upon admission to the hospital. The patient has a history of frequent UTIs, and is followed by Dr. Miller, who has been consulting on this case. Urine culture showed E.Coli w/ sensitivities to Rocephin, will continue this course of antibiotics, will likely discharge on cefdinir. TSH WNL No new medications added since yesterday. PCP, Dr. Maloney, has been stopping in to see this patient and recommended psychiatry consultation today, which I have placed. (2) Burst fracture of lumbar vertebra: Qualifiers: Encounter type: subsequent encounter Fracture healing: with delayed healing Fracture type: closed Qualified Code(s): S32.001G - Stable burst fracture of unspecified lumbar vertebra, subsequent encounter for fracture with delayed healing Code(s): S32.001A - Stable burst fracture of unspecified lumbar vertebra, initial encounter for closed fracture Status: Acute Assessment and Plan: CT abdomen pelvis showed L3 burst fracture with interval worsening since the comparison lumbar spine CT in June of 2021. Patient will follow-up in the outpatient setting for kyphoplasty, daughter is requesting physician recommendations for this, we referred her to Dr. Mendoza, Neurosurgery. No current concern for cauda equina syndrome, spinal instability, or uncontrollable pain. Patient denies pain currently. Tylenol is on board currently. (3) Mild cognitive impairment: Code(s): G31.84 - Mild cognitive impairment, so stated Status: Acute Assessment and Plan: Likely secondary to underlying dementia PT/OT ordered for patient, though she is non-responsive, and non cooperative today. (4) A-fib: Qualifiers: Atrial fibrillation type: unspecified Qualified Code(s): I48.91 - Unspecified atrial fibrillation Code(s): I48.91 - Unspecified atrial fibrillation Status: Acute Assessment and Plan: Irregularly irregular rhythm today. Rate controlled. Patient is irregularly compliant with her medications, including her Apixaban. I started SCD use as secondary prophylaxis for this patient. Continue metoprolol and apixaban Continue to monitor. (5) Diabetes type 2, uncontrolled: Qualifiers: Glycemic state: with hyperglycemia Qualified Code(s): E11.65 - Type 2 diabetes mellitus with hyperglycemia Code(s): E11.65 - Type 2 diabetes mellitus with hyperglycemia Status: Acute Assessment and Plan: Patient is on a CGM at home,D/C during her stay here. Glucose today 144 today Continue Lantus and aspart insulins Accu-Cheks AC and HS Diabetic diet (6) Chronic kidney disease, stage IV (severe): Code(s): N18.4 - Chronic kidney disease, stage 4 (severe) Status: Chronic Assessment and Plan: Ca 10.1 today, total intake yesterday 750 w/ 1100 out. BUN/creatinine still at baseline Continue to monitor Daily intake and output Avoid nephrotoxins (Patient is currently on Bumex) (7) Hypertension: Qualifiers: Hypertension type: primary hypertension Qualified Code(s): I10 - Essential (primary) hypertension Code(s): I10 - Essential (primary) hypertension Status: Acute Assessment and Plan: Patient is not taking medications today. Will continue her home antihypertensive regimen as able Continue to monito
[2022-02-19 12:18] LABS: Glucose Point of Care 140 mg/dl (65-105)
[2022-02-19 14:00] VITALS: BP 137/75; PULSE 76; RESP 20; TEMP 36.5; O2SAT 97
[2022-02-19 16:58] LABS: Glucose Point of Care 114 mg/dl (65-105)
[2022-02-19 21:53] VITALS: BP 165/98; PULSE 93; RESP 17; TEMP 36.9; O2SAT 92
[2022-02-19 21:59] LABS: Glucose Point of Care 112 mg/dl (65-105)
[2022-02-20 05:41] VITALS: BP 152/82; PULSE 91; RESP 20; TEMP 36.6; O2SAT 94
[2022-02-20 07:52] LABS: Glucose Point of Care 124 mg/dl (65-105)
[2022-02-20 08:00] VITALS: PULSE 70; RESP 20; O2SAT 94
[2022-02-20] MEDS: FLUoxetine HCL 20 MG CAPSULE 40 MG PO (08:26)
[2022-02-20] MEDS: FOLIC ACID 0.4 MG TABLET 0.8 MG PO (08:26)
[2022-02-20] MEDS: ROSUVASTATIN 10 MG TABLET 20 MG PO (08:26)
[2022-02-20] MEDS: polyethylene glycoL 3350 17 GM POWD.PACK PO (08:26)
[2022-02-20] MEDS: CHOLECALCIFEROL 1,000 UNITS TABLET 2000 UNITS PO (08:26)
[2022-02-20] MEDS: APIXABAN 5 MG TABLET PO ×2 (08:26→16:23)
[2022-02-20] MEDS: OMEGA 3 POLYUNSAT FATTY ACIDS 1 GM CAP 2 GM PO ×2 (08:26→16:23)
[2022-02-20] MEDS: FERROUS SULFATE 324 MG TABLET PO (08:26)
[2022-02-20] MEDS: ACIDOPHILUS/BULGARICUS CHEWABLE TABLET 1 TABLET PO (08:26)
[2022-02-20] MEDS: BUMETANIDE 0.5 MG TABLET PO (08:26)
[2022-02-20] MEDS: EUCERIN CREAM 120 GM JAR 1 APPLIC TOPICAL (08:27)
[2022-02-20] MEDS: SODIUM BICARBONATE TAB 650 MG TABLET PO ×2 (08:27→16:23)
[2022-02-20] MEDS: MICONAZOLE NITRATE 2% CREAM 30 GM TUBE 1 APPLIC TOPICAL ×2 (08:27→20:33)
[2022-02-20] MEDS: CYANOCOBALAMIN 1,000 MCG TABLET 1000 MCG PO (08:27)
[2022-02-20] MEDS: LORATADINE 10 MG TABLET PO (08:27)
[2022-02-20 08:28] VITALS: PULSE 70
[2022-02-20] MEDS: METOPROLOL SUCCINATE EXT REL 100 MG TABCR PO (08:28)
--- NOTE | 2022-02-20 09:16 | PC.NURSE ---
pt started on rocephine 2 g this morning, awaiting pharmacy to delivery medication.
[2022-02-20] MEDS: cefTRIAXone 2 GM in SODIUM CHLORIDE 0.9% IV 100 ML 200 ML IVPB (09:53)
--- NOTE | 2022-02-20 10:38 | PC.NURSE ---
MD Michel informed trospium non-form. MD Michel ok with substitute to oxybuynin pharmacist ok to dose per MD Michel.
[2022-02-20] MEDS: LIDOCAINE 5% PATCH 3 PATCH TRANSDERM (11:27)
[2022-02-20 11:46] LABS: Glucose Point of Care 176 mg/dl (65-105)
[2022-02-20] MEDS: BACLOFEN 5 MG TABLET PO ×2 (12:55→20:32)
[2022-02-20] MEDS: GABAPENTIN 100 MG CAPSULE PO ×2 (12:55→16:32)
[2022-02-20 14:00] VITALS: BP 152/92; PULSE 70; RESP 14; TEMP 36.4; O2SAT 94
--- NOTE | 2022-02-20 14:39 | PM.IMPN ---
Progress Note: A&P Assessment and Plan (1) Urinary tract infection: Qualifiers: Hematuria presence: without hematuria Urinary tract infection type: acute cystitis Qualified Code(s): N30.00 - Acute cystitis without hematuria Code(s): N39.0 - Urinary tract infection, site not specified Status: Acute Assessment and Plan: Deviation from behavior baseline today. Patient was nonresponsive during my exam, refusing to take medications, to eat, or to drink. VSS. Physical exam unremarkable. Patient's Braswell catheter exchanged upon admission to the hospital. The patient has a history of frequent UTIs, and is followed by Dr. Miller, who has been consulting on this case. Urine culture showed E.Coli w/ sensitivities to Rocephin, will continue this course of antibiotics, will likely discharge on cefdinir. TSH WNL No new medications added since yesterday. PCP, Dr. Maloney, has been stopping in to see this patient and recommended psychiatry consultation today, which I have placed. 02/20/2022 interval history: patient is somnolent does not provide detail review of symptom per nursing staff patient sometime refuse to take her medication and refused to participate in physical therapy, had been seen by her primary recommended psychiatric consult which is pending, patient with compression fracture of the vertebrae will start the patient on baclofen a muscle relaxant and gabapentin, this may help with her pain, patient with history of recurrent UTI urine culture is growing E coli resistant Cipro, levofloxacin and Ampicillin, currently treated with ceftriaxone 1 g q.day will increase to 2 g q.day, will continue to monitor will follow-up on psychiatry recommendation. (2) Burst fracture of lumbar vertebra: Qualifiers: Encounter type: subsequent encounter Fracture healing: with delayed healing Fracture type: closed Qualified Code(s): S32.001G - Stable burst fracture of unspecified lumbar vertebra, subsequent encounter for fracture with delayed healing Code(s): S32.001A - Stable burst fracture of unspecified lumbar vertebra, initial encounter for closed fracture Status: Acute Assessment and Plan: CT abdomen pelvis showed L3 burst fracture with interval worsening since the comparison lumbar spine CT in June of 2021. Patient will follow-up in the outpatient setting for kyphoplasty, daughter is requesting physician recommendations for this, we referred her to Dr. Mendoza, Neurosurgery. No current concern for cauda equina syndrome, spinal instability, or uncontrollable pain. Patient denies pain currently. Tylenol is on board currently. (3) Mild cognitive impairment: Code(s): G31.84 - Mild cognitive impairment, so stated Status: Acute Assessment and Plan: Likely secondary to underlying dementia PT/OT ordered for patient, though she is non-responsive, and non cooperative today. (4) A-fib: Qualifiers: Atrial fibrillation type: unspecified Qualified Code(s): I48.91 - Unspecified atrial fibrillation Code(s): I48.91 - Unspecified atrial fibrillation Status: Acute Assessment and Plan: Irregularly irregular rhythm today. Rate controlled. Patient is irregularly compliant with her medications, including her Apixaban. I started SCD use as secondary prophylaxis for this patient. Continue metoprolol and apixaban Continue to monitor. (5) Diabetes type 2, uncontrolled: Qualifiers: Glycemic state: with hyperglycemia Qualified Code(s): E11.65 - Type 2 diabetes mellitus with hyperglycemia Code(s): E11.65 - Type 2 diabetes mellitus with hyperglycemia Status: Acute Assessment and Plan: Patient is on a CGM at home,D/C during her stay here. Glucose today 144 today Continue Lantus and aspart insulins Accu-Cheks AC and HS Diabetic diet (6) Chronic kidney disease, stage IV (sev
--- NOTE | 2022-02-20 15:38 | PCOTNOTE ---
Attempted to see pt for occupational therapy 2x today. At 1st attempt, in the AM pt opened her briefly eyes and closed them and would not acknowledged therapist despite sternal rubbing and verbal cueing. At 2nd attempt, pt was just cleaned up by CHIEF INVESTMENT OFFICER supine in bed. Pt declined to participate in therapy stating I don't want to hear it...I don't want my daughter here... . Pt was educated on purpose and benefits of therapy, however, pt would not open eyes or acknowledge pt after education. RN was made aware of pt's refusal 2x. Will continue per poc duration/frequency tomorrow.
--- NOTE | 2022-02-20 15:59 | PCPTNOTE ---
The patient treatment was not able to be completed on 02/20. Pt refused to open her eyes when therapy in the room and wouldn't respond to therapy or her daughter. Will plan to continue treatment per plan of care.
[2022-02-20 16:36] LABS: Glucose Point of Care 186 mg/dl (65-105)
--- NOTE | 2022-02-20 17:16 | WPDCNPSYCH ---
[facility] Data of Consult Date/Time: 02/20/22 17:16 Requesting Physician: Lala Higgins PA-C Primary Care Provider: Carl Maloney MD Consult Narrative Narrative: Diagnoses: Unspecified Depressive Syndrome Cognitive Disorder, NOS Differential Diagnoses: Neurocognitive Disorder (Dementia), of unknown etiology, moderate to advanced (Oriented to name and place only--states it is 1981), with depression and possibly a superimposed delirium from UTI and multiple medical problems Plan: 1. Discontinue Prozac (Fluoxetine) due to lack of efficacy despite adequate dose and duration. 2. Cymbalta (Duloxetine) 20 mg po q am for her mixed anxious/depressive syndrome 3. Medical evaluation and continued treatment of her multiple medical problems. 4. Care coordination to arrange Psychiatric follow-up with [facility]. 5. Consider discontinuation of Oxybutin 5 mg po q am because patient has been on an indwelling urinary catheter for one month. The Oxybutin may contribute to confusion from anticholinergic/antihistiminic side effects. Reason for Psychiatric Evaluation/Consultation: Patient is a 76 y/o lady who is medically admitted for altered mental state and UTI whose consult is called for depression. Review of systems is limited due to the patient's cognitive limitations. Mental status exam: The patient has a self-care deficit. Eye contact is poor. Posture is recumbent. Psychomotor retardation is present. Her speech has marked latency. Her speech is low in volume and slow in rate. She speaks only a couple of words at a time. Mood is limited due to the patient's cognitive limitations. Her affect is flat and depressed. She is not suicidal or homicidal. At time of interview she had no clear convincing evidence of auditory or visual hallucinations or paranoia. She is oriented x2. History of Present Illness: Medical Service Report: Patient was admitted for altered mental state in the context of an E. coli UTI and pharmacologic noncompliance. She is reported to have mild cognitive impairment. Patient has been refusing medications, not eating and keeping her eves closed. At other times she is more verbal. She will intermittently not answer questions. Nursing and Patient's Daughter's (Shima: [phone]): Patient hsa reduced psychomotor activity. She is doubly incontinent. She made a comment to her daughter that: Theywon't let me get out of bed to use the commode. At the [facility], she would use the walker to ambulate to the bathroom. Although she will at times refuse to eat, today, she is eating and is taking her medications. Daughter's report: Patient was well until 06-05-2021 when patient complained of a headache and went to bed for the night. Patient's daughter found the patient on the floor of her bathroom. Patient was taken to the ED where she had her first in her life a witnessed seizure. She was started on Lamictal. Patient has not been the same since the seizure. She fell mid June and had a lumbar fracture noted. Several days later she was found to have a UTI abd was treated for about 1 month at [facility]. On the day of discharge the patient had more changes in was found again have a urinary tract infection. After treatment the patient was at that time able to get in and out of a car. She was weak. She had to go to the [facility] around October 2021. Patient encounter with psychiatrist: Quality: When the patient was asked why she thought her doctor would request a psychiatric evaluation the patient was nearly mute. Eventually after redirecting the question a couple of times she stated that she had no idea why a psychiatric consult was ordered. When asked what possible emotional or psychological symptoms she might be having, she again was nearly mute. The question had to be redirected multiple times and throughout her interview she required advanced interviewing skills but only a small amount of information would emerge d
--- NOTE | 2022-02-20 18:31 | WPDCNPSYCH ---
HPI Data of Consult Date/Time: 02/20/22 18:31 Requesting Physician: Lala Higgins PA-C Primary Care Provider: Carl Maloney MD ON LICENSE OF [facility] Past Medical History Medical History A-fib Benign essential hypertension Body mass index (BMI) 40.0-44.9, adult Cancer of right breast status post radiation and chemotherapy Carotid bruit less than 50% stenosis of right internal carotid artery a on Doppler 07/01/2020 Castlemans disease Chronic kidney disease, stage 3 Chronic UTI Constipation Depression Diabetes type 2, uncontrolled DM type 2 (diabetes mellitus, type 2) (~2018) Elevated BUN Elevated serum homocysteine level Hearing loss of both ears History of orthostatic hypotension Hyperlipidemia Kidney stones of the left kidney with multiple lithotripsies Knee pain Left ventricular outflow obstruction echocardiogram May 2020 Mild cognitive impairment Osteoporosis DEXA scan 08/14/2020 Overactive bladder Physical deconditioning Stress incontinence in female Thoracic aortic aneurysm Thyroid nodule (~2014) Urinary incontinence Urinary incontinence Vitamin B12 deficiency Vitamin D deficiency Surgical History Surgical History Status post cataract extraction and insertion of intraocular lens of right eye Status post right breast lumpectomy Family History Family History Sibling Cerebrovascular accident Diabetes mellitus Father Diabetes mellitus Mother Cervical cancer Social History Social History Social History: The patient lives with her 46-year-old daughter. She is . She is a lifelong nonsmoker and does not drink alcohol or use illicit substances. She is retired from the [employer]. Primary care physician: Dr. Carl Maloney code status: Full code Surrogate decision maker: Daughter Smoking status: Never smoker Second hand tobacco smoke exposure: No Alcohol intake: never Substance use: never Substance use type: does not use Gender identity (if verbalized by the patient): Female Spiritual care concerns: No Meds Home Medications and Allergies Home Medications Medication Instructions Recorded Confirmed Type apixaban 5 mg tablet 5 mg PO BID 10/15/19 02/16/22 History fesoterodine 8 mg tablet,extended 4 mg PO DAILY 10/15/19 02/16/22 History release 24 hr rosuvastatin 20 mg PO DAILY 06/12/20 02/16/22 History cyanocobalamin (vitamin B-12) 1,000 mcg PO DAILY 08/18/20 02/16/22 History 1,000 mcg tablet folic acid 800 mcg tablet 0.8 mg PO DAILY 08/18/20 02/16/22 History nitroglycerin 0.4 mg sublingual 0.4 mg SUBLINGUAL Q5M PRN 08/18/20 02/16/22 History tablet icosapent ethyl 1 gram capsule 2 g PO BID #360 cap 12/10/20 02/16/22 Rx acetaminophen [Mapap 650 mg PO Q4H PRN 30 Days tablet 04/26/21 02/16/22 Rx (acetaminophen)] polyethylene glycol 3350 [Miralax] 17 g PO QAM #30 ea 07/13/21 02/16/22 Rx sodium bicarbonate 650 mg tablet 650 mg PO BID #180 tablet 07/30/21 02/16/22 Rx cholecalciferol (vitamin D3) 1,250 1,250 mcg PO WEEKLY 11/06/21 02/16/22 History mcg (50,000 unit) capsule fluoxetine 40 mg capsule 40 mg PO DAILY #90 cap 12/28/21 02/16/22 Rx sitagliptin 50 mg tablet 50 mg PO DAILY 01/07/22 02/16/22 History Lactobacillus acidoph-pectin 1 cap PO DAILY 01/11/22 02/16/22 History [Acidophilus-Pectin] cranberry 2 cap PO DAILY 01/11/22 02/16/22 History estradiol 1 g VAGINAL 2XW 01/11/22 02/16/22 History ferrous sulfate 324 mg (65 mg 324 mg PO DAILY 01/11/22 02/16/22 History iron) tablet,delayed release insulin aspart U-100 100 unit/mL 1 sliding scale dose SUBCUT 01/11/22 02/16/22 History (3 mL) subcutaneous pen USEASDIRECTD insulin glargine 100 unit/mL (3 15 unit SUBCUT QAM 01/11/22 02/16/22 History mL) subcutaneous pen
[2022-02-20] MEDS: buPROPion HCL 75 MG TABLET PO (20:32)
[2022-02-20] MEDS: traZODone HCL 50 MG TABLET PO (20:32)
[2022-02-20 21:05] LABS: HIV 1/2 Ab P24 Ag Result Negative (Negative)
[2022-02-20 21:29] LABS: Hepatitis B Surface Antigen Negative (Negative)
[2022-02-20 21:31] LABS: Glucose Point of Care 203 mg/dl (65-105)
[2022-02-20 21:35] LABS: HAV RESULT Negative (Negative); Hepatitis B Core IgM Result Negative (Negative)
[2022-02-20 21:47] LABS: Hepatitis C Virus Antibody Negative (Negative)
[2022-02-20 21:54] VITALS: BP 157/93; PULSE 47; RESP 16; TEMP 36.6; O2SAT 98
[2022-02-21] MEDS: BACLOFEN 5 MG TABLET PO ×2 (05:25→12:48)
[2022-02-21 05:45] VITALS: BP 130/88; PULSE 60; RESP 16; TEMP 36.1; O2SAT 96
[2022-02-21 07:44] LABS: Glucose Point of Care 193 mg/dl (65-105)
[2022-02-21] MEDS: polyethylene glycoL 3350 17 GM POWD.PACK PO (08:27)
[2022-02-21] MEDS: OMEGA 3 POLYUNSAT FATTY ACIDS 1 GM CAP 2 GM PO (08:27)
[2022-02-21] MEDS: buPROPion HCL 75 MG TABLET PO (08:27)
[2022-02-21] MEDS: BUMETANIDE 0.5 MG TABLET PO (08:27)
[2022-02-21] MEDS: ACIDOPHILUS/BULGARICUS CHEWABLE TABLET 1 TABLET PO (08:27)
[2022-02-21] MEDS: LIDOCAINE 5% PATCH 3 PATCH TRANSDERM (08:27)
[2022-02-21] MEDS: FOLIC ACID 0.4 MG TABLET 0.8 MG PO (08:27)
[2022-02-21 08:28] VITALS: PULSE 64
[2022-02-21] MEDS: CHOLECALCIFEROL 1,000 UNITS TABLET 2000 UNITS PO (08:28)
[2022-02-21] MEDS: SODIUM BICARBONATE TAB 650 MG TABLET PO (08:28)
[2022-02-21] MEDS: APIXABAN 5 MG TABLET PO (08:28)
[2022-02-21] MEDS: FERROUS SULFATE 324 MG TABLET PO (08:28)
[2022-02-21] MEDS: METOPROLOL SUCCINATE EXT REL 100 MG TABCR PO (08:28)
[2022-02-21] MEDS: CYANOCOBALAMIN 1,000 MCG TABLET 1000 MCG PO (08:28)
[2022-02-21] MEDS: ROSUVASTATIN 10 MG TABLET 20 MG PO (08:28)
[2022-02-21] MEDS: GABAPENTIN 100 MG CAPSULE PO ×2 (08:28→12:48)
[2022-02-21] MEDS: LORATADINE 10 MG TABLET PO (08:29)
[2022-02-21] MEDS: cefTRIAXone 2 GM in SODIUM CHLORIDE 0.9% IV 100 ML 200 ML IVPB (08:30)
[2022-02-21] MEDS: MICONAZOLE NITRATE 2% CREAM 30 GM TUBE 1 APPLIC TOPICAL (08:30)
[2022-02-21] MEDS: EUCERIN CREAM 120 GM JAR 1 APPLIC TOPICAL (08:30)
[2022-02-21 08:41] LABS: Basophils Percent Auto 0.3 % (0.2-1.2); Eosinophils Absolute Auto 0.1 K/mm3 (0-0.3); Eosinophils Percent Auto 1.3 % (0-4.4); Hematocrit 36.9 % (37.0-47.0); Hemoglobin 11.4 g/dL (12.0-15.0); Immature Granulocyte Absolute 0.01 K/mm3 (0.00-0.031); Immature Granulocyte Percent A 0.2 % (0-0.5); Lymphocytes Absolute Auto 0.92 K/mm3 (0.9-3.2); Lymphocytes Percent Auto 14.6 % (18.3-44.2); Mean Corpuscular HGB Conc 30.9 g/dl (32-36); Mean Corpuscular Volume 84.2 fl (80-100); Mean Platelet Volume 10.9 fl (7.4-10.4); Monocytes Absolute Auto 0.3 K/mm3 (0.1-0.6); Monocytes Percent Auto 4.3 % (2.6-8.5); Neutrophils Percent Auto 79.3 % (45.5-73.1); Platelet Count Result 245 k/mm3 (150-375); Red Blood Count 4.38 M/mm3 (4.2-5.4); Red Cell Distribution Width 14.5 % (11.5-14.5); White Blood Count 6.3 K/mm3 (4.5-10.0)
[2022-02-21 08:56] LABS: Alanine Aminotransferase 14 U/L (4-35); Albumin Level 3.4 g/dL (3.5-5.1); Alkaline Phosphatase 70 U/L (38-126); Anion Gap 4 mmol/L (8-16); Aspartate Amino Transferase 18 U/L (14-36); Bilirubin,Total 0.8 mg/dL (0.2-1.3); Blood Urea Nitrogen 42 mg/dL (7-17); Calcium 10.3 mg/dL (8.4-10.2); Carbon Dioxide 27 mmol/L (22-30); Chloride 106 mmol/L (98-107); Estimated CRCL calculation 23 ml/min; Estimated Glomerular Filt Rate 21; Glucose 163 mg/dL (65-110); Potassium 3.2 mmol/L (3.4-5.0); Sodium 137 mmol/L (137-145)
[2022-02-21] MEDS: INSULIN ASPART (*BKC) 100 UNITS/ML SUB-Q (11:49)
[2022-02-21 11:54] LABS: Glucose Point of Care 230 mg/dl (65-105)
--- NOTE | 2022-02-21 13:09 | P.DS_ITS ---
DS: Admitting Diagnosis Discharge Date 02/21/2022 Admitting Diagnosis Altered mental status DS: Discharge Diagnosis Discharge Diagnosis (1) Urinary tract infection: Qualifiers: Hematuria presence: without hematuria Urinary tract infection type: acute cystitis Qualified Code(s): N30.00 - Acute cystitis without hematuria Code(s): N39.0 - Urinary tract infection, site not specified Status: Acute Assessment and Plan: * Patient's Christianson catheter exchanged upon admission to the hospital. The patient has a history of frequent UTIs, and is followed by Dr. Miller, who has been consulting on this case with recommendations to continue appropriate antibiotic treatment and restart on macrobid upon discharge. Urine culture showed E.Coli w/ sensitivities to Rocephin, will continue this course of antibiotics. Patient's oxybutynin will be D/C due to potential anticholinergic effects and indwelling christianson. * Patient's mentation is back to near baseline today, VSS, no WBC count. * Ceftriaxone day 5 today, will discontinue and discharge with Cefdinir 300mg PO Q12 hrs x 7 days. * She will be discharged to a senior care. * Per urology, restart prophylactic nitrofurantoin after completion of Cefdinir. (2) Burst fracture of lumbar vertebra: Qualifiers: Encounter type: subsequent encounter Fracture healing: with delayed healing Fracture type: closed Qualified Code(s): S32.001G - Stable burst fracture of unspecified lumbar vertebra, subsequent encounter for fracture with delayed healing Code(s): S32.001A - Stable burst fracture of unspecified lumbar vertebra, initial encounter for closed fracture Status: Acute Assessment and Plan: * CT abdomen pelvis showed L3 burst fracture with interval worsening since the comparison lumbar spine CT in June of 2021. * Patient will follow-up in the outpatient setting for kyphoplasty, daughter is requesting physician recommendations for this, we referred her to Dr. Mendoza, Neurosurgery. * No current concern for cauda equina syndrome, spinal instability, or uncontrollable pain. Patient denies pain currently. * Patient started on baclofen, gabapentin, and lidocaine patch in hospital, will discharge with these medications (3) A-fib: Qualifiers: Atrial fibrillation type: unspecified Qualified Code(s): I48.91 - Unspecified atrial fibrillation Code(s): I48.91 - Unspecified atrial fibrillation Status: Acute Assessment and Plan: * Irregularly irregular rhythm today. Rate controlled. * Patient is irregularly compliant with her medications, including her Apixaban. I started SCD use as secondary prophylaxis for this patient. * Continue metoprolol and apixaban (4) Diabetes type 2, uncontrolled: Qualifiers: Glycemic state: with hyperglycemia Qualified Code(s): E11.65 - Type 2 diabetes mellitus with hyperglycemia Code(s): E11.65 - Type 2 diabetes mellitus with hyperglycemia Status: Acute Assessment and Plan: * Patient is on a CGM at home,D/C during her stay here. * Glucose today 144 today * Continue Lantus and aspart insulins * Accu-Cheks AC and HS * Diabetic diet (5) Chronic kidney disease, stage IV (severe): Code(s): N18.4 - Chronic kidney disease, stage 4 (severe) Status: Chronic Assessment and Plan: * Ca 10.3 today, total intake yesterday 750 w/ 1100 out. * BUN/creatinine still at baseline. * Continue to monitor * Daily intake and output *
--- NOTE | 2022-02-21 13:09 | PM.DS ---
DS: Admitting Diagnosis Discharge Date 02/21/2022 Admitting Diagnosis Altered mental status DS: Discharge Diagnosis Discharge Diagnosis (1) Urinary tract infection: Qualifiers: Hematuria presence: without hematuria Urinary tract infection type: acute cystitis Qualified Code(s): N30.00 - Acute cystitis without hematuria Code(s): N39.0 - Urinary tract infection, site not specified Status: Acute Assessment and Plan: Patient's Christianson catheter exchanged upon admission to the hospital. The patient has a history of frequent UTIs, and is followed by Dr. Miller, who has been consulting on this case with recommendations to continue appropriate antibiotic treatment and restart on macrobid upon discharge. Urine culture showed E.Coli w/ sensitivities to Rocephin, will continue this course of antibiotics. Patient's oxybutynin will be D/C due to potential anticholinergic effects and indwelling christianson. Patient's mentation is back to near baseline today, VSS, no WBC count. Ceftriaxone day 5 today, will discontinue and discharge with Cefdinir 300mg PO Q12 hrs x 7 days. She will be discharged to a shelter. Per urology, restart prophylactic nitrofurantoin after completion of Cefdinir. (2) Burst fracture of lumbar vertebra: Qualifiers: Encounter type: subsequent encounter Fracture healing: with delayed healing Fracture type: closed Qualified Code(s): S32.001G - Stable burst fracture of unspecified lumbar vertebra, subsequent encounter for fracture with delayed healing Code(s): S32.001A - Stable burst fracture of unspecified lumbar vertebra, initial encounter for closed fracture Status: Acute Assessment and Plan: CT abdomen pelvis showed L3 burst fracture with interval worsening since the comparison lumbar spine CT in June of 2021. Patient will follow-up in the outpatient setting for kyphoplasty, daughter is requesting physician recommendations for this, we referred her to Dr. Mendoza, Neurosurgery. No current concern for cauda equina syndrome, spinal instability, or uncontrollable pain. Patient denies pain currently. Patient started on baclofen, gabapentin, and lidocaine patch in hospital, will discharge with these medications (3) A-fib: Qualifiers: Atrial fibrillation type: unspecified Qualified Code(s): I48.91 - Unspecified atrial fibrillation Code(s): I48.91 - Unspecified atrial fibrillation Status: Acute Assessment and Plan: Irregularly irregular rhythm today. Rate controlled. Patient is irregularly compliant with her medications, including her Apixaban. I started SCD use as secondary prophylaxis for this patient. Continue metoprolol and apixaban (4) Diabetes type 2, uncontrolled: Qualifiers: Glycemic state: with hyperglycemia Qualified Code(s): E11.65 - Type 2 diabetes mellitus with hyperglycemia Code(s): E11.65 - Type 2 diabetes mellitus with hyperglycemia Status: Acute Assessment and Plan: Patient is on a CGM at home,D/C during her stay here. Glucose today 144 today Continue Lantus and aspart insulins Accu-Cheks AC and HS Diabetic diet (5) Chronic kidney disease, stage IV (severe): Code(s): N18.4 - Chronic kidney disease, stage 4 (severe) Status: Chronic Assessment and Plan: Ca 10.3 today, total intake yesterday 750 w/ 1100 out. BUN/creatinine still at baseline. Continue to monitor Daily intake and output Avoid nephrotoxins (Patient is currently on Bumex, will continue this). (6) Hypertension: Qualifiers: Hypertension type: primary hypertension Qualified Code(s): I10 - Essential (primary) hypertension Code(s): I10 - Essential (primary) hypertension Status: Acute Assessment and Plan: Continue home antihypertensive regimen upon discharge. (7) Tinea corporis: Code(s): B35.4 -
[2022-02-21 14:41] LABS: EDCOVIDSCREEN Negative (Negative)
[2022-02-22 09:14] LABS: Rapid Plasma Reagin Non-Reactive (NonReactive)
== END 2022-02-21 16:35 | DRG 690 ==
LOC: ANHED 20:59 → ANH3MEDSUR 21:04
PROVIDERS: Physician Assistant; Psychiatry & Neurology Psychiatry; Student in an Organized Health Care Education/Training Program; Admitting Provider Internal Medicine; Emergency Provider Emergency Medicine; PCP Internal Medicine; Visit Provider Family Medicine
DX: N39.0 Urinary tract infection, site not specified (principal); S32.001A Stable burst fracture of unspecified lumbar vertebra, initial encounter for closed fracture; N18.4 Chronic kidney disease, stage 4 (severe); B96.20 Unspecified Escherichia coli [E. coli] as the cause of diseases classified elsewhere; E11.22 Type 2 diabetes mellitus with diabetic chronic kidney disease; I12.9 Hypertensive chronic kidney disease with stage 1 through stage 4 chronic kidney disease, or unspecified chronic kidney disease; Z20.822 Contact with and (suspected) exposure to COVID-19; I48.91 Unspecified atrial fibrillation; E11.65 Type 2 diabetes mellitus with hyperglycemia; B35.4 Tinea corporis; F03.90 Unspecified dementia, unspecified severity, without behavioral disturbance, psychotic disturbance, mood disturbance, and anxiety; F32.A Depression, unspecified; E78.5 Hyperlipidemia, unspecified; M81.0 Age-related osteoporosis without current pathological fracture; E04.1 Nontoxic single thyroid nodule; I71.2 Thoracic aortic aneurysm, without rupture; N39.3 Stress incontinence (female) (male); G31.84 Mild cognitive impairment of uncertain or unknown etiology; E53.8 Deficiency of other specified B group vitamins; F41.8 Other specified anxiety disorders; E86.0 Dehydration; E55.9 Vitamin D deficiency, unspecified; N32.81 Overactive bladder; Z79.82 Long term (current) use of aspirin; Z85.3 Personal history of malignant neoplasm of breast; Z87.442 Personal history of urinary calculi; Z98.49 Cataract extraction status, unspecified eye; Z96.1 Presence of intraocular lens; E11.42 Type 2 diabetes mellitus with diabetic polyneuropathy; X58.XXXA Exposure to other specified factors, initial encounter
CPT/HCPCS: 36415; 51702; 70450; 71046; 74176; 80053; 80074; 81001; 82948; 83690; 84443; 85025; 85610; 85730; 86592; 86703; 87077; 87086; 87186; 87426; 96365; 96367; 96375; 97161; 97165; 97530; 99285; A9270; C9803; G0378; G0432; J0131; J0360; J0696; J1815; J7040

== ENCOUNTER 2022-02-22 13:26 | Inpatient (IN) | payer MEDICARE, OTHER, SELFPAY ==
[2022-02-22] VITALS (8 sets, daily range): BP systolic 122–175; BP diastolic 71–91; PULSE 54–114; RESP 12–16; TEMP 36.1–36.4; O2SAT 84–100
--- NOTE | ~2022-02-22 | CT_ITS ---
EXAMINATION: CT brain wo con DATE: 02/22/2022 14:28 INDICATION: Altered mental status. TECHNIQUE: Computed tomography (CT) of the head was performed without intravenous contrast. The mA wa s adjusted according to patient size. Iterative reconstruction technique was employed. The dose-lengt h product was 681.00 mGy-cm. COMPARISON: Head CT 02/19/2022 FINDINGS: There is mild motion artifact. There is no intracranial hemorrhage, acute infarction, or ab normal intracranial mass lesion. There are scattered areas of low attenuation in the cerebral white m atter. The ventricles are normal in size. There is mild mucosal thickening in the ethmoid sinuses. Th ere are likely changes of right ocular lens replacement surgery. The mastoid air cells are normal. IMPRESSION: 1. Stable moderate nonspecific cerebral white matter disease, which likely represents chronic small v essel ischemic disease. Reviewed, dictated and finalized at location B. IMPRESSION: 1. Stable moderate nonspecific cerebral white matter disease, which likely repr esents chronic small vessel ischemic disease.
--- NOTE | ~2022-02-22 | MR_ITS ---
EXAMINATION: MR brain/brain stem wo con DATE: 02/26/2022 14:25 INDICATION: Altered mental status. TECHNIQUE: Magnetic resonance imaging (MRI) of the brain and brainstem was performed without intraven ous contrast. COMPARISON: Brain MRI 07/08/2021, head CT 02/22/2022 FINDINGS: Motion artifact is noted. There is no intracranial hemorrhage, acute infarction, or abnorma l intracranial mass lesion. There are scattered areas of nonspecific increased T2-weighted signal int ensity in the cerebral white matter and sangeeta. The ventricles are normal in size. There are likely paige nges of right ocular lens replacement surgery. There is mild mucosal thickening in the paranasal sinu ses. The mastoid air cells are normal. IMPRESSION: 1. Moderate nonspecific cerebral white matter disease and pontine disease, which likely represents ch ronic small vessel ischemic disease. Reviewed, dictated and finalized at location A. IMPRESSION: 1. Moderate nonspecific cerebral white matter disease and pontine disease, whic h likely represents chronic small vessel ischemic disease.
--- NOTE | ~2022-02-22 | XR_ITS ---
EXAMINATION: XR chest 1V portable INDICATION: Altered mental status TECHNIQUE: Portable AP chest at 12 hours COMPARISON: 02/16/2022 FINDINGS: Cardiomegaly is noted. There are patchy bilateral opacities, right greater than left. There is no pleural effusion or pneumothorax. Surgical clips are noted in the right axilla. IMPRESSION: 1. Cardiomegaly. 2. Patchy bilateral airspace opacities, right greater than left, consistent with pneumonia versus pul monary edema. Reviewed, dictated and finalized at location A. IMPRESSION: 1. Cardiomegaly. 2. Patchy bilateral airspace opacities, right greater than left, consistent wit h pneumonia versus pulmonary edema.
--- NOTE | ~2022-02-22 | CT_ITS ---
EXAMINATION: CT abdomen pelvis wo con DATE: 02/22/2022 15:13 INDICATION: abd pain TECHNIQUE: Computed tomography (CT) of the abdomen and pelvis was performed without intravenous contr ast. Automated exposure control and iterative reconstruction technique were employed. The dose-length product was 1422.00 mGy-cm. COMPARISON: 02/16/22 FINDINGS: Exam limited by motion and arm positioning. Lower thorax: Cardiomegaly. Pericardial effusion. Bibasilar atelectasis. Liver: Scattered hypodensities, too small to characterize. Granulomatous calcifications. Biliary/Gallbladder: Gallbladder is absent. No bile duct dilation. Spleen: Granulomatous calcifications. Pancreas: Atrophy. Adrenals:Right adrenal adenoma. Kidneys: Right renal atrophy. Left renal scarring. Multiple bilateral cysts. GI tract: No small or large bowel dilation. Appendix not visualized. Mesentery/Peritoneum: No ascites, mass, or free air. Retroperitoneum: No mass. Pelvis: Pelvic organs are within normal limits. Bladder decompressed by Braswell catheter. Bones/Soft Tissues: Soft tissues and body wall unremarkable. No acute osseous finding. Additional Findings: None. IMPRESSION: Limited examination, within that constraint, no acute abdominopelvic process. Reviewed, dictated and finalized at location K.
--- NOTE | 2022-02-22 13:37 | ECG_ITS ---
Measurements Intervals [place] Rate: 63 P: SD: 0 QRS: -11 QRSD: 111 T: -32 QT: 408 QTc: 421 Interpretive Statements ATRIAL FIBRILLATION INTRAVENTRICULAR CONDUCTION DELAY NONSPECIFIC ST & T-WAVE ABNORMALITY- ANTEROLAT/INF LEADS BASELINE ARTIFACT- I, II, III ABNORMAL ECG Electronically Signed On 02-22-2022 13:43:28 CDT by Don Flores D.O.
[2022-02-22 13:53] LABS: Glucose Point of Care 122 mg/dl (65-105)
[2022-02-22 13:58] LABS: Appearance Urine Cloudy (Clear); Bilirubin Urine Negative (Negative); Blood Urine 2+ (Negative); Color Urine Yellow (Yellow); Glucose Urine UA Trace mg/dL (Negative); Ketones Urine Negative (Negative); Leukocyte Esterase Ur 1+ LEU/UL (Negative); Nitrate Urine Negative (Negative); Protein Urine 3+ mg/dL (Negative); Specific Grav Ur 1.025 (1.001-1.035); Urobilinogen Urine 0.2 mg/dL (<2.0)
[2022-02-22 14:01] LABS: Mucus Urine Rare /lpf; RBC Urine 51-75 /hpf (0-2); Squamous Epithelial Cell Urine Rare /hpf (Few); WBC Urine >75 /hpf
[2022-02-22 14:03] LABS: Add Urine Microscopic? YES
[2022-02-22 14:05] LABS: Basophils Percent Auto 0.4 % (0.2-1.2); Eosinophils Percent Auto 0.3 % (0-4.4); Hematocrit 36.7 % (37.0-47.0); Hemoglobin 11.1 g/dL (12.0-15.0); Immature Granulocyte Absolute 0.02 K/mm3 (0.00-0.031); Immature Granulocyte Percent A 0.3 % (0-0.5); Lymphocytes Absolute Auto 1.11 K/mm3 (0.9-3.2); Mean Corpuscular HGB Conc 30.2 g/dl (32-36); Mean Corpuscular Hemoglobin 26.1 pg (26-34); Mean Corpuscular Volume 86.4 fl (80-100); Mean Platelet Volume 10.9 fl (7.4-10.4); Monocytes Absolute Auto 0.5 K/mm3 (0.1-0.6); Monocytes Percent Auto 7.2 % (2.6-8.5); Neutrophils Absolute Auto 5.3 K/mm3 (1.3-6.7); Neutrophils Percent Auto 75.8 % (45.5-73.1); Platelet Count Result 253 k/mm3 (150-375); Red Blood Count 4.25 M/mm3 (4.2-5.4); Red Cell Distribution Width 14.7 % (11.5-14.5); White Blood Count 6.9 K/mm3 (4.5-10.0)
[2022-02-22 14:16] LABS: Alanine Aminotransferase 15 U/L (4-35); Albumin Level 3.5 g/dL (3.5-5.1); Alkaline Phosphatase 61 U/L (38-126); Anion Gap 4 mmol/L (8-16); Aspartate Amino Transferase 22 U/L (14-36); Bilirubin,Total 0.7 mg/dL (0.2-1.3); Blood Urea Nitrogen 44 mg/dL (7-17); Carbon Dioxide 29 mmol/L (22-30); Chloride 108 mmol/L (98-107); Estimated CRCL calculation 25 ml/min; Estimated Glomerular Filt Rate 22; Glucose 115 mg/dL (65-110); Potassium 3.6 mmol/L (3.4-5.0); Sodium 141 mmol/L (137-145)
[2022-02-22 14:20] LABS: INR 1.2
[2022-02-22 14:21] LABS: Partial Thromboplastin Time 27.3 SECONDS (22.3-36.8)
--- NOTE | 2022-02-22 14:24 | PC.NURSE ---
Pt to CT scan via stretcher at this time.
[2022-02-22] MEDS: ONDANSETRON INJ 4 MG/2 ML VIAL IV PUSH (14:53)
[2022-02-22 15:19] LABS: INR 1.2; Prothrombin Time 15.1 Seconds (11.1-14.7)
[2022-02-22 15:20] LABS: Partial Thromboplastin Time 29.2 SECONDS (22.3-36.8)
--- NOTE | 2022-02-22 15:29 | PC.NURSE ---
Pt 80% on room air, repositioned and placed on 2 L NC O2. O2 now 96%.
[2022-02-22 15:32] LABS: NT Pro B Type Natriuretic Pept 20100 pg/mL (5-100); Troponin I 0.023 ng/mL (0.000-0.034)
--- NOTE | 2022-02-22 15:47 | ED.AMS ---
HPI - Altered Mental Status General Chief Complaint: Altered Mental Status Stated Complaint: AMS Time Seen by Provider: 02/22/22 13:57 Source: RN notes reviewed History of Present Illness HPI narrative: Patient presents to emergency department from [facility] via EMS for altered mental status. Patient was recently mid to the hospital for urinary tract infection and discharged on antibiotics she has been taking patient was also discharged with new medication of Wellbutrin for depression as well as baclofen and gabapentin for a burst fracture. Per the patient's daughter was present patient has been sleepy and tired before she been discharge this and has remained sleeping and minimally responsive since her return to the shelter. Per the daughter the patient is normally more awake and alert patient was laying in bed with her eyes closed she will respond to painful stimuli tell you to stop Related Data Home Medications Medication Instructions Recorded Confirmed apixaban 5 mg tablet 5 mg PO BID 10/15/19 02/16/22 fesoterodine 8 mg tablet,extended 4 mg PO DAILY 10/15/19 02/16/22 release 24 hr rosuvastatin 20 mg PO DAILY 06/12/20 02/16/22 cyanocobalamin (vitamin B-12) 1,000 mcg PO DAILY 08/18/20 02/16/22 1,000 mcg tablet folic acid 800 mcg tablet 0.8 mg PO DAILY 08/18/20 02/16/22 nitroglycerin 0.4 mg sublingual 0.4 mg SUBLINGUAL Q5M PRN 08/18/20 02/16/22 tablet cholecalciferol (vitamin D3) 1,250 1,250 mcg PO WEEKLY 11/06/21 02/16/22 mcg (50,000 unit) capsule sitagliptin 50 mg tablet 50 mg PO DAILY 01/07/22 02/16/22 Lactobacillus acidoph-pectin 1 cap PO DAILY 01/11/22 02/16/22 [Acidophilus-Pectin] cranberry 2 cap PO DAILY 01/11/22 02/16/22 estradiol 1 g VAGINAL 2XW 01/11/22 02/16/22 ferrous sulfate 324 mg (65 mg 324 mg PO DAILY 01/11/22 02/16/22 iron) tablet,delayed release insulin aspart U-100 100 unit/mL 1 sliding scale dose SUBCUT 01/11/22 02/16/22 (3 mL) subcutaneous pen USEASDIRECTD insulin glargine 100 unit/mL (3 15 unit SUBCUT QAM 01/11/22 02/16/22 mL) subcutaneous pen metoprolol succinate 100 mg 100 mg PO DAILY 01/11/22 02/16/22 capsule sprinkle, ext. release 24 hr ramelteon 8 mg tablet 8 mg PO QHS 01/11/22 02/16/22 trazodone 50 mg tablet 50 mg PO QHS tablet 01/11/22 02/16/22 trospium 20 mg tablet 20 mg PO DAILY tablet 01/11/22 02/16/22 Allergy Relief (cetirizine) 10 mg PO DAILY 02/16/22 02/16/22 ergocalciferol (vitamin D2) 50 mcg PO DAILY 02/16/22 02/16/22 nitrofurantoin macrocrystal 50 mg PO DAILY 02/16/22 02/16/22 nystatin-triamcinolone 1 applic TOPICAL DAILY PRN 02/16/22 02/16/22 fesoterodine [Toviaz] mg PO 02/22/22 Allergies Allergy/AdvReac Type Severity Reaction Status Date / Time Sulfa (Sulfonamide Allergy Itching Verified 02/22/22 14:25 Antibiotics) Review of Systems Review of Systems: Unable to obtain review of systems as the patient does not answer questions secondary to altered mental status PMFSH Past Medical History Medical History A-fib Benign essential hypertension Body mass index (BMI) 40.0-44.9, adult Cancer of right breast status post radiation and chemotherapy Carotid bruit less than 50% stenosis of right internal carotid artery a on Doppler 07/01/2020 Castlemans disease Chronic kidney disease, stage 3 Chronic UTI Constipation Depression Diabetes type 2, uncontrolled DM type 2 (diabetes mellitus, type 2) (~2018) Elevated BUN Elevated serum homocysteine level Hearing loss of both ears History of orthostatic hypotension Hyperlipidemia Kidney stones of the left kidney with multiple lithotripsies Knee pain Left ventricular outflow obstruction echocardiogram May 2020 Mild cognitive impairment Osteoporosis DEXA scan 08/14/2020 Overactive bladder Physical deconditioning Stress incontinence in female Thoracic aortic aneurysm Thyroid nodule (~2014) Urinary incontinence Urinary incontinence Vitamin B12 defic
[2022-02-22 16:19] LABS: Alveolar/Arterial O2 Gradient 40.8 mmHg; Base Excess ABG -1.1 mEq/l (+/-2.0); Fractional Inspired Oxygen 28 %; HCO3 ABG 24.6 mEq/l (22.0-26.0); Oxygen Content ABG 16.3 %vol (16.0-22.0); Oxygen Saturation ABG 97.6 % (95.0-100.0); Oxyhemoglobin 96.6 % THb (90.0-100.0); PCO2 ABG 45.1 mmHg (35.0-45.0); PO2 ABG 105.6 mmHg (80.0-100.0); PO2 FiO2 Ratio Arterial Blood 3.77 %; Total Hemoglobin 11.9 g/dL (12.0-18.0); pH ABG 7.355 (7.350-7.450)
[2022-02-22 16:20] LABS: Device NASAL CANNULA; Modified Allen's Test Pass; Site Drawn RIGHT RADIAL
[2022-02-22 16:22] LABS: Lactic Acid Reflex 1.2 mmol/L (0.7-2.0)
--- NOTE | 2022-02-22 17:52 | PC.NURSE ---
This patient, Maria R Barrientos, was admitted to 2 Medical Room 257-01. Patient/family oriented to hospital policies and general routines including ID bracelet, bed and alarms, visiting hours, pain management, procedures, bathroom and other care routines, personal items, smoking policy, room service/diet, and visiting hours. Information on how to activate the Rapid Response Team has been discussed. Patient/Family are encouraged to report perceived risks to care and to ask questions if they do not understand what they are told or what they should do.
[2022-02-22 17:59] LABS: Glucose Point of Care 122 mg/dl (65-105)
--- NOTE | 2022-02-22 20:00 | PM.IMHP ---
H&P: HPI History of Present Illness Date/Time: Patient was placed observation status for expected length of stay less than 23 hours for management, will plan to re-evaluate tomorrow for improvement. 02/22/22 20:00 Chief Complaint: Altered mental status Narrative: Ms. Barrientos is a 76-year-old female who presented to the emergency room with altered mental status. Patient was recently discharged from this facility with a diagnosis of urinary tract infection and depressive disorder. Patient was started on multiple new medications including Wellbutrin, Neurontin, and baclofen. It appears the patient was placed on baclofen because it was noted she had a burst fracture of her spine and when the chronicity was unknown. Patient's daughter states since discharge the patient has been having increased lethargy and confusion. Patient was discharged on 02/21/2022. She had been seen by [facility] as well as Urology. At this point time patient is extremely lethargic and is not answering questions. I am unable to get any type review of systems from patient this time. Patient does have a known history of chronic UTI, depression, and burst fracture of her spine for which she was placed on baclofen for her burst fracture of the lumbar vertebrae. Patient was to follow up with Neurosurgery as an outpatient for possible kyphoplasty. Patient's daughter is at bedside and states the patient has been hospitalized multiple times over the last year for multiple reasons. Patient has also been in and out of rehab facilities. Patient was hospitalized at 1 point [facility] for urinary tract infection and at that time was diagnosed with dementia. Patient also has a known history of chronic kidney disease, atrial fibrillation, diabetes mellitus, hypertension, and chronic urinary tract infection. Review of Systems Review of Systems: I am unable to obtain review of systems secondary to patient's clinical condition. [facility] Past Medical History Medical History A-fib Benign essential hypertension Body mass index (BMI) 40.0-44.9, adult Cancer of right breast status post radiation and chemotherapy Carotid bruit less than 50% stenosis of right internal carotid artery a on Doppler 07/01/2020 Castlemans disease Chronic kidney disease, stage 3 Chronic UTI Constipation Depression Diabetes type 2, uncontrolled DM type 2 (diabetes mellitus, type 2) (~2019) Elevated BUN Elevated serum homocysteine level Hearing loss of both ears History of orthostatic hypotension Hyperlipidemia Kidney stones of the left kidney with multiple lithotripsies Knee pain Left ventricular outflow obstruction echocardiogram May 2020 Mild cognitive impairment Osteoporosis DEXA scan 08/14/2020 Overactive bladder Physical deconditioning Stress incontinence in female Thoracic aortic aneurysm Thyroid nodule (~2015) Urinary incontinence Urinary incontinence Vitamin B12 deficiency Vitamin D deficiency Surgical History Surgical History Status post cataract extraction and insertion of intraocular lens of right eye Status post right breast lumpectomy Family History Family History Sibling Cerebrovascular accident Diabetes mellitus Father Diabetes mellitus Mother Cervical cancer Social History Social History Social History: The patient lives with her 46-year-old daughter. She is . She is a lifelong nonsmoker and does not drink alcohol or use illicit substances. She is retired from the [employer]. Primary care physician: Dr. Carl Maloney code status: Full code Surrogate decision maker: Daughter Smoking status: Never smoker Second hand tobacco smoke exposure: No Alcohol intake: never Substance use: never Subst
[2022-02-22] MEDS: LACTATED RINGERS 1,000 ML 100 ML IV CONT (20:52)
[2022-02-22 20:58] LABS: Glucose Point of Care 130 mg/dl (65-105)
[2022-02-23] VITALS (10 sets, daily range): BP systolic 142–169; BP diastolic 89–127; PULSE 98–127; RESP 16–21; TEMP 36.4–36.6; O2SAT 97–100
[2022-02-23 00:15] LABS: Glucose Point of Care 138 mg/dl (65-105)
--- NOTE | 2022-02-23 05:07 | PC.NURSE ---
PT HAS BEEN AGITATED ALL NIGHT. VERBALLY AND PHASICALLY ABUSIVE TO MULTIPLE STAFF MEMBERS THROUGHOUT THE SHIFT. SHE IS HITTING AND DIGGING HER NAILS INTO ANY STAFF THAT TOUCHES HER. SHE IS SCREAMING HELP AND PULLING AT IV, NC, AND GAS EXAMINER. PT HIT MULTIPLE STAFF MEMBERS WHILE LAB WAS ATTEMPTING TO DRAW HER BLOOD.
[2022-02-23 05:15] LABS: Basophils Percent Auto 0.5 % (0.2-1.2); Eosinophils Absolute Auto 0.1 K/mm3 (0-0.3); Eosinophils Percent Auto 0.9 % (0-4.4); Hematocrit 39.9 % (37.0-47.0); Hemoglobin 11.6 g/dL (12.0-15.0); Immature Granulocyte Absolute 0.02 K/mm3 (0.00-0.031); Immature Granulocyte Percent A 0.4 % (0-0.5); Lymphocytes Absolute Auto 1.34 K/mm3 (0.9-3.2); Lymphocytes Percent Auto 24.5 % (18.3-44.2); Mean Corpuscular HGB Conc 29.1 g/dl (32-36); Mean Corpuscular Hemoglobin 26.7 pg (26-34); Mean Corpuscular Volume 91.7 fl (80-100); Mean Platelet Volume 11.1 fl (7.4-10.4); Monocytes Absolute Auto 0.4 K/mm3 (0.1-0.6); Monocytes Percent Auto 6.8 % (2.6-8.5); Neutrophils Absolute Auto 3.7 K/mm3 (1.3-6.7); Neutrophils Percent Auto 66.9 % (45.5-73.1); Platelet Count Result 230 k/mm3 (150-375); Red Blood Count 4.35 M/mm3 (4.2-5.4); Red Cell Distribution Width 14.9 % (11.5-14.5); White Blood Count 5.5 K/mm3 (4.5-10.0)
[2022-02-23 05:35] LABS: Alanine Aminotransferase 13 U/L (4-35); Albumin Level 3.7 g/dL (3.5-5.1); Alkaline Phosphatase 69 U/L (38-126); Anion Gap 8 mmol/L (8-16); Aspartate Amino Transferase 20 U/L (14-36); Blood Urea Nitrogen 41 mg/dL (7-17); Calcium 11.1 mg/dL (8.4-10.2); Carbon Dioxide 24 mmol/L (22-30); Chloride 111 mmol/L (98-107); Estimated CRCL calculation 25 ml/min; Estimated Glomerular Filt Rate 22; Glucose 150 mg/dL (65-110); Potassium 4.6 mmol/L (3.4-5.0); Sodium 143 mmol/L (137-145)
[2022-02-23 05:54] LABS: Hypochromasia 1+ (NORMAL); Platelet Estimate Adequate (Adequate); Tear Drop Cells 1+ (NORMAL)
[2022-02-23 05:55] LABS: Acanthocytes 1+ (NORMAL); Ovalocytes 1+ (NORMAL)
[2022-02-23 06:11] LABS: Glucose Point of Care 141 mg/dl (65-105)
--- NOTE | 2022-02-23 06:16 | PC.NURSE ---
PT PULLED OUT IV AND RIPPED TUBING INTO MULTIPLE PIECES. WOULD NOT LET GO OF TUBING. CALLED FOR STAFF ASSIST TO HELP ME GET TUBING FROM PT STUCCO [place]ON. ATTEMPTED TO TAKE PT BLOOD SUGAR AND SHE CONTINUED TO SLAP AND CLAW AT ME. TOOK 4 STAFF MEMBERS TO HOLD PT ARMS TO KEEP HER FROM HITTING TO GET BLOOD SUGAR. PT CONTINUES TO REMOVE OXYGEN AND TELEMETRY SCREAMING AND CURSING WHEN ANYONE ATTEMPTS TO REPLACE THEM.
[2022-02-23] MEDS: HALOPERIDOL LACTATE 5 MG/ML VIAL 2 MG IM (06:27)
[2022-02-23 12:18] LABS: Glucose Point of Care 140 mg/dl (65-105)
--- NOTE | 2022-02-23 13:01 | P.PNIM_ITS ---
Progress Note: A&P Assessment and Plan (1) Acute metabolic encephalopathy: Code(s): G93.41 - Metabolic encephalopathy Status: Acute Assessment and Plan: Etiology is unclear. Patient is awake but nonresponsive and noncommunicative * Proceed with neurology consultation * Head CT on presentation negative for acute findings; showed stable nonspecific cerebral white matter disease * Wellbutrin, gabapentin, baclofen on hold * Attempting to obtain IV access however patient has removed peripheral IV lines and telemetry leads * Consider transfer to [facility] facility per family request pending neurology evaluation (2) Acute UTI: Code(s): N39.0 - Urinary tract infection, site not specified Status: Acute Assessment and Plan: With positive urine culture 02/16/2022 with growth of E coli for which she was treated with ceftriaxone and discharged on cefdinir. * UA again abnormal on presentation. Patient afebrile and without leukocytosis. * Repeat urine culture is pending * IV ceftriaxone initiated, however patient does not have IV access at this time. Vascular healthcare administrator attempting to replace peripheral line with special care to keep secure. If this is successful, IV ceftriaxone will be resumed. * Patient did not tolerate p.o. antibiotics. * Appreciate urology consultation (3) Chronic renal insufficiency: Code(s): N18.9 - Chronic kidney disease, unspecified Status: Acute Assessment and Plan: Renal function is consistent with baseline * Continue to monitor BMP (4) Acute dehydration: Code(s): E86.0 - Dehydration Status: Acute Assessment and Plan: Patient is not tolerating any oral intake * If IV access is obtained, will gently rehydrate (5) Atrial fibrillation: Code(s): I48.91 - Unspecified atrial fibrillation Status: Acute Assessment and Plan: Rhythm is irregularly irregular today. * Rate controlled during my examination * Occasional episodes of tachycardia documented * Patient has not taken her metoprolol as she is refusing all medications. * No IV access but if this can be obtained will initiated prn IV metoprolol for HR >120 * Continue Eliquis if patient will tolerate PO meds (6) Type 2 diabetes mellitus with hyperglycemia: Qualifiers: Diabetes mellitus long chain quiller tender insulin use: without fpc use Qualified Code(s): E11.65 - Type 2 diabetes mellitus with hyperglycemia Code(s): E11.65 - Type 2 diabetes mellitus with hyperglycemia Status: Acute Assessment and Plan: Blood sugars reviewed and have been reasonably controlled * Continue Accu-Cheks q6h, initiate hypoglycemic protocol and sliding scale insulin however patient is not eating at this time * Obtain updated A1c Subjective Date/time seen: 02/23/22 13:01 Interval history: Date of service: 02/23/2022 Maria R Barrientos is a 76 year old female with a history of atrial fibrillation on chronic anticoagulation, hypertension, depression, type 2 diabetes mellitus, dementia, and recent hospitalization from 02/16-02/21/22 for UTI during which she was evaluated by psychiatry due to severe depression. She is being seen in follow up for encephalopathy. She is not able to contribute to history whatsoever. The patient's daughter, Shima, is at the bedside. She states that she is scared as she does not know what is going on with her mother. She states she is not at her baseline. She would like her transferred to Geriatric Psychiatry at [facility]. She would like me to speak with her primary care provid
--- NOTE | 2022-02-23 13:01 | PM.IMPN ---
Progress Note: A&P Assessment and Plan (1) Acute metabolic encephalopathy: Code(s): G93.41 - Metabolic encephalopathy Status: Acute Assessment and Plan: Etiology is unclear. Patient is awake but nonresponsive and noncommunicative Proceed with neurology consultation Head CT on presentation negative for acute findings; showed stable nonspecific cerebral white matter disease Wellbutrin, gabapentin, baclofen on hold Attempting to obtain IV access however patient has removed peripheral IV lines and telemetry leads Consider transfer to geriatric [facility] facility per family request pending neurology evaluation (2) Acute UTI: Code(s): N39.0 - Urinary tract infection, site not specified Status: Acute Assessment and Plan: With positive urine culture 02/16/2022 with growth of E coli for which she was treated with ceftriaxone and discharged on cefdinir. UA again abnormal on presentation. Patient afebrile and without leukocytosis. Repeat urine culture is pending IV ceftriaxone initiated, however patient does not have IV access at this time. Vascular administrative program specialist attempting to replace peripheral line with special care to keep secure. If this is successful, IV ceftriaxone will be resumed. Patient did not tolerate p.o. antibiotics. Appreciate urology consultation (3) Chronic renal insufficiency: Code(s): N18.9 - Chronic kidney disease, unspecified Status: Acute Assessment and Plan: Renal function is consistent with baseline Continue to monitor BMP (4) Acute dehydration: Code(s): E86.0 - Dehydration Status: Acute Assessment and Plan: Patient is not tolerating any oral intake If IV access is obtained, will gently rehydrate (5) Atrial fibrillation: Code(s): I48.91 - Unspecified atrial fibrillation Status: Acute Assessment and Plan: Rhythm is irregularly irregular today. Rate controlled during my examination Occasional episodes of tachycardia documented Patient has not taken her metoprolol as she is refusing all medications. No IV access but if this can be obtained will initiated prn IV metoprolol for HR >120 Continue Eliquis if patient will tolerate PO meds (6) Type 2 diabetes mellitus with hyperglycemia: Qualifiers: Diabetes mellitus group home insulin use: without superintendent container terminal use Qualified Code(s): E11.65 - Type 2 diabetes mellitus with hyperglycemia Code(s): E11.65 - Type 2 diabetes mellitus with hyperglycemia Status: Acute Assessment and Plan: Blood sugars reviewed and have been reasonably controlled Continue Accu-Cheks q6h, initiate hypoglycemic protocol and sliding scale insulin however patient is not eating at this time Obtain updated A1c Subjective Date/time seen: 02/23/22 13:01 Interval history: Date of service: 02/23/2022 Maria R Barrientos is a 76 year old female with a history of atrial fibrillation on chronic anticoagulation, hypertension, depression, type 2 diabetes mellitus, dementia, and recent hospitalization from 02/16-02/21/22 for UTI during which she was evaluated by psychiatry due to severe depression. She is being seen in follow up for encephalopathy. She is not able to contribute to history whatsoever. The patient's daughter, Shima, is at the bedside. She states that she is scared as she does not know what is going on with her mother. She states she is not at her baseline. She would like her transferred to Geriatric Psychiatry at [facility]. She would like me to speak with her primary care provider, Dr. Maloney. Per nursing reports, the patient has removed her IV from her arm. She has refused all oral intake and all medications. Review of Systems Review of Systems: All systems reviewed & are unremarkable except as noted in HPI and below Exam Narrative: General: Thin, frail, chronically ill-appearing 76 year-old female, lying supine in bed with her down pull down around h
[2022-02-23] MEDS: SODIUM CHLORIDE 0.9% IV 1,000 ML 95 ML IV CONT (14:18)
--- NOTE | 2022-02-23 16:11 | WPDURCON ---
Assessment and Plan Assessment and plan (1) Acute UTI: Code(s): N39.0 - Urinary tract infection, site not specified Status: Acute Assessment and Plan: I recommend continuation of Ceftriaxone to treat UTI based on previous culture sensitivity from 02/16/22, however if she continues to pull her IV out and cannot take PO antibiotics, the only other route option would be IM injections. (2) Altered mental state: Code(s): R41.82 - Altered mental status, unspecified Status: Acute Assessment and Plan: I did discuss with her daughter that UTI's can cause an altered mental state, however the degree of her lethargy, confusion and unresponsiveness is not typical of a UTI, it seems that it may be stemming from another source. She doesn't appear to be septic clinically, however we are awaiting blood cultures. (3) Chronic UTI: Code(s): N39.0 - Urinary tract infection, site not specified Status: Acute Assessment and Plan: Continue Macrobid prophylaxis, and monthly catheter changes. Most recent catheter change was done last week in the hospital. (4) Urge incontinence: Code(s): N39.41 - Urge incontinence Status: Acute Assessment and Plan: Continue termite technician christianson catheter management. There is no further evaluation needed urologically, continue treatment of UTI and christianson catheter care. Urology Consult Note HPI Date Seen: 02/23/22 Requesting Physician: Alexsandra Garzon PA-C Primary Care Provider: Carl Maloney MD Consult Narrative Narrative: Maria R Barrientos is a 76 year old female who has been known to Dr. Miller for >10 years. She has an extensive history of recurrent urolithiasis, recurrent urinary tract infections and, more recently, overactive bladder with worsening urge incontinence. She has recently undergone extensive procedures for collection of stones in her right ureter and, for all intents and purposes, is stone free as evidenced by CT scan done yesterady in the ER on 02/22/22. Most of her adult life she has been troubled with recurrent urinary tract infections in these became noticeably worse with the onset of overactive bladder and urge incontinence. After many discussions between Dr. Miller, the patient and her daughter approximately 1 month ago, the decision was made to treat her urge incontinence with a chronic indwelling catheter. The patient seems to be quite pleased and more comfortable with this catheter. Addition to the catheter she remains on suppressive nitrofurantoin 50 mg daily for her recurrent urinary tract infections. She presented to the ER yesterday via EMS per her daughter, who presides at the bedside today, after being discharged to [facility] on 02/21/22 from [place]. She was treated last week for a UTI, where her culture grew E-Coli. She was treated with culture sensitive antibiotics, but remained lethargic and non communicative as well as confused. Her daughter was concerned yesterday as she has had no improvement in her cognitive sate. The daughter states she is very concerned as the patient continues to decline despite medical efforts. She also suffers from depression. She had an IV in place but pulled it out in her state of confusion, therefore she is unable to receive IV antibiotics and is not of sound enough mind to swallow PO meds at this time. She is moving about in her bed, but eyes are closed and she isn't responsive to voice stimulation. Clinically from a urologic standpoint she appears to be stable, she is tachycardic, respirations are slightly elevated at 21 this morning, UA is negative for nitrites but does present with leukocystes and RBC's. WBC is 5.5 and creatinine is stable for her at 2.20 compared to previous creatinine's and there is no obstruction or hydro on CT. A new urine culture and blood cultures are pending from 02/22/22. She was started on Ceftriaxone until she removed her own IV. The daughter is very upset at the bedside as her mother is not at her
--- NOTE | 2022-02-23 16:50 | WPDNEURCNPN ---
Consult date: 02/23/22 HPI: Maria R Barrientos is a 76 year old female admitted to the hospital through the emergency room where she was transferred from the [facility] via EMS for the complaints of change in the mental status and as per the patient's daughter patient has been very sleepy and tired though prior to the discharge and has remained sleepy and minimally responsive even on return to the longterm though normally she is more awake and more alert, patient has been taking multiple medications including apixaban 5 mg in addition to insulin trazodone 50 mg daily and she has ongoing history of 1. Atrial fibrillation 2. Hypertension 3. 50% stenosis of right ICA on Doppler in July 01, 2020 4. Chronic DT disease 5. Diabetes mellitus 6. Hearing deficit bilateral 7 cognitive impairment 8 thoracic aortic aneurysm. He is not a smoker or drinker and evaluation documented INR of 1.2 a PTT 29.2 normal basic metabolic panel except BUN of 44 creatinine of 2.2 and BNP 20,100, chest x-ray with cardiomegaly and CT of the head with no acute process 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 History of orthostatic hypotension Hyperlipidemia Kidney stones of the left kidney with multiple lithotripsies Knee pain Left ventricular outflow obstruction echocardiogram May 2020 Mild cognitive impairment Osteoporosis DEXA scan 08/14/2020 Overactive bladder Physical deconditioning Stress incontinence in female Thoracic aortic aneurysm Thyroid nodule (~2014) Urinary incontinence Urinary incontinence Vitamin B12 deficiency Vitamin D deficiency Surgical History Surgical History Status post cataract extraction and insertion of intraocular lens of right eye Status post right breast lumpectomy Family History Family History Sibling Cerebrovascular accident Diabetes mellitus Father Diabetes mellitus Mother Cervical cancer Social History Social History Social History: The patient lives with her 46-year-old daughter. She is . She is a lifelong nonsmoker and does not drink alcohol or use illicit substances. She is retired from the [employer]. Primary care physician: Dr. Carl Maloney code status: Full code Surrogate decision maker: Daughter Smoking status: Never smoker Second hand tobacco smoke exposure: No Alcohol intake: never Substance use: never Substance use type: does not use Gender identity (if verbalized by the patient): Female Spiritual care concerns: No Meds Home Medications and Allergies Home Medications Medication Instructions Recorded Confirmed Type apixaban 5 mg tablet 5 mg PO BID 10/15/19 02/22/22 History rosuvastatin 20 mg PO DAILY 06/12/20 02/22/22 History cyanocobalamin (vitamin B-12) 1,000 mcg PO DAILY 08/18/20 02/22/22 History 1,000 mcg tablet folic acid 800 mcg tablet 0.8 mg PO DAILY 08/18/20 02/22/22 History nitroglycerin 0.4 mg sublingual 0.4 mg SUBLINGUAL Q5M PRN 08/18/20 02/22/22 History tablet acetaminophen [Mapap 650 mg PO Q4H PRN 30 Days tablet 04/26/21 02/22/22 Rx (acetaminophen)] polyethylene glycol 3350 [Miralax] 17 g PO QAM #30 ea 07/13/21 02/22/22 Rx sodium bicarb
[2022-02-23] MEDS: hydrALAZINE HCL 20 MG/ML VIAL 10 MG IV PUSH (17:12)
[2022-02-23 18:25] LABS: Glucose Point of Care 159 mg/dl (65-105)
[2022-02-23 21:09] LABS: Glucose Point of Care 137 mg/dl (65-105)
[2022-02-24 01:32] LABS: Glucose Point of Care 130 mg/dl (65-105)
[2022-02-24] MEDS: SODIUM CHLORIDE 0.9% IV 1,000 ML 95 ML IV CONT ×3 (01:55→22:53)
[2022-02-24 03:30] VITALS: PULSE 86; RESP 20; TEMP 36.8; O2SAT 95
[2022-02-24 05:33] VITALS: BP 134/82
[2022-02-24 05:54] LABS: Glucose Point of Care 143 mg/dl (65-105)
[2022-02-24 06:30] LABS: Hematocrit 35.6 % (37.0-47.0); Hemoglobin 10.6 g/dL (12.0-15.0); Mean Corpuscular HGB Conc 29.8 g/dl (32-36); Mean Corpuscular Hemoglobin 26.2 pg (26-34); Mean Corpuscular Volume 87.9 fl (80-100); Mean Platelet Volume 10.6 fl (7.4-10.4); Platelet Count Result 232 k/mm3 (150-375); Red Blood Count 4.05 M/mm3 (4.2-5.4); Red Cell Distribution Width 14.9 % (11.5-14.5); White Blood Count 6.7 K/mm3 (4.5-10.0)
[2022-02-24 06:39] LABS: Anion Gap 8 mmol/L (8-16); Blood Urea Nitrogen 33 mg/dL (7-17); Calcium 10.1 mg/dL (8.4-10.2); Carbon Dioxide 22 mmol/L (22-30); Chloride 112 mmol/L (98-107); Estimated CRCL calculation 28 ml/min; Estimated Glomerular Filt Rate 24; Glucose 140 mg/dL (65-110); Potassium 3.4 mmol/L (3.4-5.0); Sodium 142 mmol/L (137-145)
[2022-02-24 06:43] LABS: Hemoglobin A1C 6.4 % (<5.7)
[2022-02-24 07:58] LABS: Glucose Point of Care 145 mg/dl (65-105)
--- NOTE | 2022-02-24 08:58 | P.PNIM_ITS ---
Progress Note: A&P Assessment and Plan (1) Acute metabolic encephalopathy: Code(s): G93.41 - Metabolic encephalopathy Status: Acute Assessment and Plan: Probable acute metabolic encephalopathy most likely multifactorial related to dehydration UTI polypharmacy * Proceed with neurology consultation * Head CT on presentation negative for acute findings; showed stable nonspecific cerebral white matter disease * Wellbutrin, gabapentin, baclofen on hold * IV antibiotics (2) Acute UTI: Code(s): N39.0 - Urinary tract infection, site not specified Status: Acute Assessment and Plan: With positive urine culture 02/16/2022 with growth of E coli for which she was t reated with ceftriaxone and discharged on cefdinir. * UA again abnormal on presentation. Patient afebrile and without leukocytosis. * Repeat urine culture is pending * IV ceftriaxone initiated (3) Chronic renal insufficiency: Code(s): N18.9 - Chronic kidney disease, unspecified Status: Acute Assessment and Plan: Renal function is consistent with baseline * Continue to monitor BMP (4) Acute dehydration: Code(s): E86.0 - Dehydration Status: Acute Assessment and Plan: Patient is not tolerating any oral intake * IV hydration daily evaluation (5) Atrial fibrillation: Code(s): I48.91 - Unspecified atrial fibrillation Status: Acute Assessment and Plan: Rhythm is irregularly irregular today. * Rate controlled during my examination * Occasional episodes of tachycardia documented * Patient has not taken her metoprolol as she is refusing all medications. * initiated prn IV metoprolol for HR >120 * Continue Eliquis if patient will tolerate PO meds (6) Type 2 diabetes mellitus with hyperglycemia: Qualifiers: Diabetes mellitus halfway insulin use: without terminal gauger use Qualified Code(s): E11.65 - Type 2 diabetes mellitus with hyperglycemia Code(s): E11.65 - Type 2 diabetes mellitus with hyperglycemia Status: Acute Assessment and Plan: Blood sugars reviewed and have been reasonably controlled * Continue Accu-Cheks , initiate hypoglycemic protocol and sliding scale insulin however patient is not eating at this time * A1c Subjective Date/time seen: 02/24/22 08:58 Interval history: Date of service: 02/23/2022 Maria R Barrientos is a 76 year old female with a history of atrial fibrillation on chronic anticoagulation, hypertension, depression, type 2 diabetes mellitus, dementia, and recent hospitalization from 02/16-02/21/22 for UTI during which she was evaluated by psychiatry due to severe depression. Patient presented to the hospital with altered mental status lethargy was found to have probable UTI treated with antibiotics urology was consulted, recommended neurology evaluation as patient has altered mental status more than expected with UTI. Awake poor historian I am seeing the patient for altered mental status Exam Narrative: Awake does not follow commands moves all extremities Chest no wheeze crackles Abdomen nontender nondistended CVS S1 + S2 Negative Lower extremity edema Objective Data Vital Signs Vital Signs: Vital Signs - 24 hr 02/23/22 10:49 02/23/22 14:45 02/23/22 19:27 Temperature 97.9 F 97.7 F Pulse Rate 118 H 117 H 112 H Respiratory Rate 16 20 Blood Pressure 150/127 H 169/103 H Pulse Oximetry 98
--- NOTE | 2022-02-24 08:58 | PM.IMPN ---
Progress Note: A&P Assessment and Plan (1) Acute metabolic encephalopathy: Code(s): G93.41 - Metabolic encephalopathy Status: Acute Assessment and Plan: Probable acute metabolic encephalopathy most likely multifactorial related to dehydration UTI polypharmacy Proceed with neurology consultation Head CT on presentation negative for acute findings; showed stable nonspecific cerebral white matter disease Wellbutrin, gabapentin, baclofen on hold IV antibiotics (2) Acute UTI: Code(s): N39.0 - Urinary tract infection, site not specified Status: Acute Assessment and Plan: With positive urine culture 02/16/2022 with growth of E coli for which she was treated with ceftriaxone and discharged on cefdinir. UA again abnormal on presentation. Patient afebrile and without leukocytosis. Repeat urine culture is pending IV ceftriaxone initiated (3) Chronic renal insufficiency: Code(s): N18.9 - Chronic kidney disease, unspecified Status: Acute Assessment and Plan: Renal function is consistent with baseline Continue to monitor BMP (4) Acute dehydration: Code(s): E86.0 - Dehydration Status: Acute Assessment and Plan: Patient is not tolerating any oral intake IV hydration daily evaluation (5) Atrial fibrillation: Code(s): I48.91 - Unspecified atrial fibrillation Status: Acute Assessment and Plan: Rhythm is irregularly irregular today. Rate controlled during my examination Occasional episodes of tachycardia documented Patient has not taken her metoprolol as she is refusing all medications. initiated prn IV metoprolol for HR >120 Continue Eliquis if patient will tolerate PO meds (6) Type 2 diabetes mellitus with hyperglycemia: Qualifiers: Diabetes mellitus senior care insulin use: without senior care use Qualified Code(s): E11.65 - Type 2 diabetes mellitus with hyperglycemia Code(s): E11.65 - Type 2 diabetes mellitus with hyperglycemia Status: Acute Assessment and Plan: Blood sugars reviewed and have been reasonably controlled Continue Accu-Cheks , initiate hypoglycemic protocol and sliding scale insulin however patient is not eating at this time A1c Subjective Date/time seen: 02/24/22 08:58 Interval history: Date of service: 02/23/2022 Maria R Barrientos is a 76 year old female with a history of atrial fibrillation on chronic anticoagulation, hypertension, depression, type 2 diabetes mellitus, dementia, and recent hospitalization from 02/16-02/21/22 for UTI during which she was evaluated by psychiatry due to severe depression. Patient presented to the hospital with altered mental status lethargy was found to have probable UTI treated with antibiotics urology was consulted, recommended neurology evaluation as patient has altered mental status more than expected with UTI. Awake poor historian I am seeing the patient for altered mental status Exam Narrative: Awake does not follow commands moves all extremities Chest no wheeze crackles Abdomen nontender nondistended CVS S1 + S2 Negative Lower extremity edema Objective Data Vital Signs Vital Signs: Vital Signs - 24 hr 02/23/22 10:49 02/23/22 14:45 02/23/22 19:27 Temperature 97.9 F 97.7 F Pulse Rate 118 H 117 H 112 H Respiratory Rate 16 20 Blood Pressure 150/127 H 169/103 H Pulse Oximetry 98 98 02/23/22 20:00 02/23/22 21:52 02/23/22 23:19 Temperature Pulse Rate 112 H Respiratory Rate 20 Blood Pressure 151/89 H Pulse Oximetry 98 97 02/24/22 03:30 02/24/22 05:33 Temperature 98.2 F Pulse Rate 86 Respiratory Rate 20 Blood Pressure 134/82 Pulse Oximetry 95 Intake/Output Intake/Output: Intake & Output 02/21/22 02/22/22 02/23/22 02/24/22 23:59 23:59 23:59 23:59 Intake Total 687 900 4321 Output Total 650 650 Balance 150 -278 350 Meds/Results Medications: Active Medications
[2022-02-24 10:02] LABS: Ammonia < 9 umol/L (9-30)
[2022-02-24] MEDS: hydrALAZINE HCL 20 MG/ML VIAL 10 MG IV PUSH (10:33)
[2022-02-24 11:09] LABS: Folic Acid > 20.0 ng/mL (2.76->20); Vitamin B12 > 1000.0 pg/mL (239-931)
[2022-02-24 11:39] LABS: Thyroid Stimulating Hormone Reflex 0.463 uIU/mL (0.465-4.68)
[2022-02-24 12:18] LABS: Glucose Point of Care 137 mg/dl (65-105)
[2022-02-24 12:42] LABS: Free T4 Free Thyroxine Reflex 1.91 ng/dL (0.78-2.19)
[2022-02-24 14:35] VITALS: BP 157/92; PULSE 133; RESP 16; TEMP 36.3; O2SAT 96
[2022-02-24 16:48] LABS: Glucose Point of Care 148 mg/dl (65-105)
[2022-02-24 20:00] VITALS: PULSE 133; RESP 16; O2SAT 96
[2022-02-24 21:08] LABS: Glucose Point of Care 175 mg/dl (65-105)
[2022-02-24 21:22] LABS: Total Triiodothyronine (T3) 0.86 NG/ML (0.97-1.69)
[2022-02-24 23:01] VITALS: BP 145/90; PULSE 117; RESP 20; TEMP 36.7; O2SAT 95
[2022-02-25 00:13] LABS: Glucose Point of Care 139 mg/dl (65-105)
[2022-02-25 06:17] LABS: Glucose Point of Care 147 mg/dl (65-105)
[2022-02-25 07:05] VITALS: BP 168/98; PULSE 100; RESP 16; TEMP 36.7; O2SAT 93
--- NOTE | 2022-02-25 07:27 | WPDUROPN2 ---
Progress Note: A&P Assessment and Plan (1) Altered mental state: Code(s): R41.82 - Altered mental status, unspecified Status: Acute (2) Acute UTI: Code(s): N39.0 - Urinary tract infection, site not specified Status: Acute Assessment and Plan: Repeat blood cultures neg, so far. Appreciate Dr. Alonzo's input. Agree that her declining mental status is are not likely completely attributable to recurrent urinary tract infections Subjective Subjective Date/Time Seen: 02/25/22 07:27 Confused/comfortable Review of Systems Review of Systems: ROS unobtainable: Yes unobtainable due to mental status Exam Const: General: no acute distress Resp: Effort & Inspection: normal respiratory effort GI: Inspection: non-distended GI Palp: No abdominal tenderness and No Guarding due to palpation present (GI) Auscultation: normal bowel sounds Objective Data Vital Signs Vital Signs: Vital Signs - 24 hr 02/24/22 14:35 02/24/22 20:00 02/24/22 23:01 Temperature 97.4 F L 98.0 F Pulse Rate 133 H 133 H 117 H Respiratory Rate 16 16 20 Blood Pressure 157/92 H 145/90 H Pulse Oximetry 96 96 95 02/25/22 07:05 Temperature 98.1 F Pulse Rate 100 Respiratory Rate 16 Blood Pressure 168/98 H Pulse Oximetry 93 Intake/Output Intake/Output: Intake & Output 02/22/22 02/23/22 02/24/22 02/25/22 23:59 23:59 23:59 23:59 Intake Total 480 426 1604 400 Output Total 650 1350 650 Balance 150 -278 1920 -250 Meds/Results Medications: Active Medications Generic Name Dose Route Start Last Admin Trade Name Freq PRN Reason Stop Dose Admin Acetaminophen 650 mg 02/23/22 09:56 Acetaminophen 325 Mg Tablet PO Q4H PRN pain rated 1-3 Apixaban 5 mg 02/23/22 17:00 02/24/22 16:56 Apixaban 5 Mg Tablet PO Not Given BID BIANKA Bumetanide 0.5 mg 02/23/22 09:00 02/24/22 09:07 Bumetanide 0.5 Mg Tablet PO Not Given DAILY BIANKA Cyanocobalamin 1,000 mcg 02/23/22 09:00 02/24/22 09:07 Cyanocobalamin 1,000 Mcg Tablet PO Not Given DAILY BIANKA Dextrose 12.5 gm 02/23/22 13:41 Dextrose 50% 25 Gm/50 Ml Syringe IV PUSH PRN PRN Hypoglycemia Protocol Ferrous Sulfate 324 mg 02/23/22 09:00 02/24/22 09:07 Ferrous Sulfate 324 Mg Tablet PO Not Given DAILY BIANKA Glucagon 1 mg 02/23/22 13:41 Glucagon For Inj 1 Mg Vial IM PRN PRN Hypoglycemia Protocol Glucose 15 gm 02/23/22 13:41 Glucose Oral Gel 15 Gm Of Glucse In 37.5 Gm Tube PO PRN PRN Hypoglycemia Protocol Hydralazine HCl 10 mg 02/23/22 16:30 02/24/22 10:33 Hydralazine Hcl 20 Mg/Ml Vial IV PUSH 10 mg Q8H PRN Administration Systolic BP >170 diast BP >110 Ceftriaxone Sodium/Dextrose 1 gm in 50 mls @ 100 mls/hr 02/23/22 13:30 02/24/22 09:40 Rocephin 1 Gm/D5w 50 Ml IVPB Infused QAM BIANKA Infusion Dextrose 1,000 mls @ 100 mls/hr 02/23/22 13:41 Dextrose 5% 1,000 Ml IVPB PRN PRN Hypoglycemia Protocol Sodium Chloride 1,000 mls @ 95 mls/hr 02/23/22 13:45 02/24/22 22:53 Normal Saline Iv IV CONT 95 mls/hr .[id number] BIANKA Administration Acetaminophen 1,000 mg in 100 mls @ 400 mls/hr 02/24/22 15:35 02/24/22 16:37 Ofirmev 1,000 Mg Ivpb IVPB 02/26/22 15:34 Infused Q6H PRN Infusion Pain Rated 4-6 Insulin Aspart 2 - 5 units 02/23/22 17:00 02/24/22 16:57 Insulin Aspart (*Bkc) 100 Units/Ml SUB-Q Not Given TIDWM [facility] Protocol Loratadine 10 mg 02/23/22 09:00 02/24/22 09:07 Loratadine 10 Mg Tablet PO Not Given QAM BIANKA Metoprolol Succinate 100 mg 02/23/22 09:00 02/24/22 09:08 Metoprolol Succinate Ext Rel 100 Mg Tabcr PO Not Given DAILY [facility] Metoprolol Tartrate 5 mg 02/23/22 13:42 Metoprolol Tartrate Inj 5 Mg/5 Ml Vial IV PUSH Q8H PRN Heart rate >120 Polyethylene Glycol 17 gm 02/23/22 09:56 Polyethylene Glycol 3350 17 Gm Powd.Pack PO QAM PRN
[2022-02-25 07:50] LABS: Glucose Point of Care 136 mg/dl (65-105)
[2022-02-25] MEDS: SODIUM CHLORIDE 0.9% IV 1,000 ML 95 ML IV CONT ×2 (09:26→19:45)
--- NOTE | 2022-02-25 09:55 | PM.IMPN ---
Progress Note: A&P Assessment and Plan (1) Acute metabolic encephalopathy: Code(s): G93.41 - Metabolic encephalopathy Status: Acute Assessment and Plan: Probable acute metabolic encephalopathy most likely multifactorial related to dehydration UTI polypharmacy AFib dementia Neurology recommendation appreciated Head CT on presentation negative for acute findings; showed stable nonspecific cerebral white matter disease Wellbutrin, gabapentin, baclofen on hold IV antibiotics (2) Acute UTI: Code(s): N39.0 - Urinary tract infection, site not specified Status: Acute Assessment and Plan: With positive urine culture 02/16/2022 with growth of E coli for which she was treated with ceftriaxone and discharged on cefdinir. UA again abnormal on presentation. Patient afebrile and without leukocytosis. Repeat urine culture is pending IV ceftriaxone initiated (3) Chronic renal insufficiency: Code(s): N18.9 - Chronic kidney disease, unspecified Status: Acute Assessment and Plan: Renal function is consistent with baseline Continue to monitor BMP (4) Acute dehydration: Code(s): E86.0 - Dehydration Status: Acute Assessment and Plan: Patient is not tolerating any oral intake IV hydration daily evaluation (5) Atrial fibrillation: Code(s): I48.91 - Unspecified atrial fibrillation Status: Acute Assessment and Plan: Rhythm is irregularly irregular today. Rate controlled during my examination Occasional episodes of tachycardia documented Patient has not taken her metoprolol as she is refusing all medications. initiated prn IV metoprolol for HR >120 Continue Eliquis if patient will tolerate PO meds (6) Type 2 diabetes mellitus with hyperglycemia: Qualifiers: Diabetes mellitus long term care phlebotomist insulin use: without fci use Qualified Code(s): E11.65 - Type 2 diabetes mellitus with hyperglycemia Code(s): E11.65 - Type 2 diabetes mellitus with hyperglycemia Status: Acute Assessment and Plan: Blood sugars reviewed and have been reasonably controlled Continue Accu-Cheks , initiate hypoglycemic protocol and sliding scale insulin however patient is not eating at this time Anticipate discharge once oral intake improves Subjective Date/time seen: 02/25/22 09:55 Interval history: Date of service: 02/23/2022 Maria R Barrientos is a 76 year old female with a history of atrial fibrillation on chronic anticoagulation, hypertension, depression, type 2 diabetes mellitus, dementia, and recent hospitalization from 02/16-02/21/22 for UTI during which she was evaluated by psychiatry due to severe depression. Patient presented to the hospital with altered mental status lethargy was found to have probable UTI treated with antibiotics urology was consulted, recommended neurology evaluation as patient has altered mental status more than expected with UTI probably multifactorial related to with dementia and multiple chronic medical condition atropine fibrillation hypertension depression type 2 diabetes dehydration and UTI. Patient is more awake today patient was able to start taking food today spoke with the nurse to monitor diet intake and medication intake I am seeing the patient for altered mental status Exam Narrative: Awake does not follow commands moves all extremities Chest no wheeze crackles Abdomen nontender nondistended CVS S1 + S2 Negative Lower extremity edema Objective Data Vital Signs Vital Signs: Vital Signs - 24 hr 02/24/22 14:35 02/24/22 20:00 02/24/22 23:01 Temperature 97.4 F L 98.0 F Pulse Rate 133 H 133 H 117 H Respiratory Rate 16 16 20 Blood Pressure 157/92 H 145/90 H Pulse Oximetry 96 96 95 02/25/22 07:05 Temperature 98.1 F Pulse Rate 100 Respiratory Rate 16 Blood Pressure 168/98 H Pulse Oximetry 93 Intake/Output Intake/Output: Intake & Output 02/22/22 02/23/22
[2022-02-25 10:21] VITALS: PULSE 100
[2022-02-25] MEDS: BUMETANIDE 0.5 MG TABLET PO (10:21)
[2022-02-25] MEDS: APIXABAN 5 MG TABLET PO ×2 (10:21→16:52)
[2022-02-25] MEDS: METOPROLOL SUCCINATE EXT REL 100 MG TABCR PO (10:21)
[2022-02-25] MEDS: CYANOCOBALAMIN 1,000 MCG TABLET 1000 MCG PO (10:30)
[2022-02-25] MEDS: LORATADINE 10 MG TABLET PO (10:31)
[2022-02-25] MEDS: ROSUVASTATIN 10 MG TABLET 20 MG PO (10:36)
[2022-02-25] MEDS: SODIUM BICARBONATE TAB 650 MG TABLET PO ×2 (10:36→16:52)
[2022-02-25] MEDS: FERROUS SULFATE 324 MG TABLET PO (10:39)
[2022-02-25 11:32] VITALS: BMI 31.2
[2022-02-25 11:41] LABS: Glucose Point of Care 214 mg/dl (65-105)
[2022-02-25] MEDS: INSULIN ASPART (*BKC) 100 UNITS/ML SUB-Q ×2 (12:02→16:43)
--- NOTE | 2022-02-25 12:24 | PCNSR ---
On 02/25/22, the student, Faye Ariza, provided care and completed [facility] documentation on this patient. I have reviewed the student's documentation and agree with the findings.
[2022-02-25 13:33] VITALS: BP 142/92; PULSE 105; RESP 12; TEMP 36.9; O2SAT 96
--- NOTE | 2022-02-25 16:26 | WPDCDIQUERY2 ---
CDI Query Clarification Request Clinical Impression: Acute UTI, Acute metabolic encephalopathy, Acute respiratory failure with hypoxia, Chronic renal insufficiency, CHF (congestive heart failure)
[2022-02-25 16:32] LABS: Glucose Point of Care 261 mg/dl (65-105)
[2022-02-25 19:57] VITALS: BP 144/98; RESP 17; TEMP 36.4; O2SAT 96
[2022-02-25 20:00] VITALS: PULSE 105; RESP 17; O2SAT 96
[2022-02-25 23:39] LABS: Glucose Point of Care 163 mg/dl (65-105)
[2022-02-25 23:39] LABS: Glucose Point of Care 191 mg/dl (65-105)
[2022-02-26] VITALS (10 sets, daily range): BP systolic 119–172; BP diastolic 61–124; PULSE 67–133; RESP 16–18; TEMP 35.9–36.7; O2SAT 92–97
[2022-02-26] MEDS: SODIUM CHLORIDE 0.9% IV 1,000 ML 95 ML IV CONT ×2 (06:18→20:40)
[2022-02-26 06:22] LABS: Glucose Point of Care 169 mg/dl (65-105)
[2022-02-26 07:45] LABS: Glucose Point of Care 163 mg/dl (65-105)
[2022-02-26] MEDS: METOPROLOL SUCCINATE EXT REL 100 MG TABCR PO (08:27)
[2022-02-26] MEDS: SODIUM BICARBONATE TAB 650 MG TABLET PO (08:28)
[2022-02-26] MEDS: CYANOCOBALAMIN 1,000 MCG TABLET 1000 MCG PO (08:28)
[2022-02-26] MEDS: LORATADINE 10 MG TABLET PO (08:28)
[2022-02-26] MEDS: FERROUS SULFATE 324 MG TABLET PO (08:28)
[2022-02-26] MEDS: APIXABAN 5 MG TABLET PO (08:28)
[2022-02-26] MEDS: BUMETANIDE 0.5 MG TABLET PO (08:28)
[2022-02-26] MEDS: ROSUVASTATIN 10 MG TABLET 20 MG PO (08:28)
--- NOTE | 2022-02-26 09:32 | PCNFU ---
Nutrition Follow-Up Complete: Inadequate oral intake related to poor PO intake as evidenced by refusal of meals. Goal: Achieve adequate intake of 75% of meals. Pt is progressing towards goal. Pt current nutrition is soft & bite sized level 6 diet with nutritional ice cream TID: 290 kcals, 9 grams protein. Last recorded weight is 95.9 kg. Weight is stable. Bowel Motility: + BM 02/25/22 Labs Reviewed: No new labs reported to review. Meds Noted: Eliquis, Novolog, Toprol XI, Lopressor Inj, Miralax, Crestor, ferrous sulfate Skin: WNL Additional Notes: Spoke with nurse to complete follow up. BASSEM Jason reported pt has started feeding herself. Pt consumed 15% of lunch and 20% of dinner yesterday. Pt likes the nutritional ice cream and eats all of it. Nurse had no other questions or concerns. Monitor weight, labs, and intake and will follow up in 3 days.
[2022-02-26 09:52] LABS: Basophils Percent Auto 0.7 % (0.2-1.2); Eosinophils Absolute Auto 0.1 K/mm3 (0-0.3); Hematocrit 35.1 % (37.0-47.0); Hemoglobin 10.6 g/dL (12.0-15.0); Immature Granulocyte Absolute 0.03 K/mm3 (0.00-0.031); Immature Granulocyte Percent A 0.5 % (0-0.5); Lymphocytes Absolute Auto 0.91 K/mm3 (0.9-3.2); Lymphocytes Percent Auto 15.7 % (18.3-44.2); Mean Corpuscular HGB Conc 30.2 g/dl (32-36); Mean Corpuscular Hemoglobin 26.2 pg (26-34); Mean Corpuscular Volume 86.7 fl (80-100); Mean Platelet Volume 10.8 fl (7.4-10.4); Monocytes Absolute Auto 0.6 K/mm3 (0.1-0.6); Monocytes Percent Auto 10.2 % (2.6-8.5); Neutrophils Absolute Auto 4.2 K/mm3 (1.3-6.7); Neutrophils Percent Auto 71.9 % (45.5-73.1); Nucleated Red Blood Cells Perc 0.3 % (0.0-0.2); Platelet Count Result 261 k/mm3 (150-375); Red Blood Count 4.05 M/mm3 (4.2-5.4); Red Cell Distribution Width 15.4 % (11.5-14.5); White Blood Count 5.8 K/mm3 (4.5-10.0)
[2022-02-26 10:00] LABS: Creatine Kinase 31 U/L (30-135)
[2022-02-26 10:22] LABS: Procalcitonin 0.1 ng/mL
[2022-02-26 11:08] LABS: Erythrocyte Sedimentation Rate 33 mm/hr (0-20)
[2022-02-26 11:43] LABS: Glucose Point of Care 205 mg/dl (65-105)
[2022-02-26] MEDS: INSULIN ASPART (*BKC) 100 UNITS/ML SUB-Q (11:53)
[2022-02-26 12:15] LABS: Alanine Aminotransferase 12 U/L (4-35); Albumin Level 3.1 g/dL (3.5-5.1); Alkaline Phosphatase 65 U/L (38-126); Anion Gap 7 mmol/L (8-16); Aspartate Amino Transferase 21 U/L (14-36); Bilirubin,Total 0.5 mg/dL (0.2-1.3); Blood Urea Nitrogen 30 mg/dL (7-17); CRP 3.1 mg/dL (<1.0); Calcium 9.7 mg/dL (8.4-10.2); Carbon Dioxide 19 mmol/L (22-30); Chloride 111 mmol/L (98-107); Estimated CRCL calculation 28 ml/min; Estimated Glomerular Filt Rate 24; Glucose 233 mg/dL (65-110); Potassium 3.4 mmol/L (3.4-5.0); Sodium 137 mmol/L (137-145)
--- NOTE | 2022-02-26 12:43 | PCNSR ---
On 02/26/22, the student,Faye Ariza, provided care and completed [facility] documentation on this patient. I have reviewed the student's documentation and agree with the findings.
[2022-02-26] MEDS: LORazepam INJ (*CRX) 2 MG/ML VIAL 1 MG IV PUSH (13:18)
[2022-02-26] MEDS: hydrALAZINE HCL 20 MG/ML VIAL 10 MG IV PUSH (14:38)
--- NOTE | 2022-02-26 15:48 | PM.IMPN ---
Progress Note: A&P Assessment and Plan (1) Atrial fibrillation: Code(s): I48.91 - Unspecified atrial fibrillation Status: Acute (2) Acute UTI: Code(s): N39.0 - Urinary tract infection, site not specified Status: Acute (3) Acute metabolic encephalopathy: Code(s): G93.41 - Metabolic encephalopathy Status: Acute (4) Acute respiratory failure with hypoxia: Code(s): J96.01 - Acute respiratory failure with hypoxia Status: Acute (5) Chronic renal insufficiency: Code(s): N18.9 - Chronic kidney disease, unspecified Status: Acute (6) Dementia: Code(s): F03.90 - Unspecified dementia without behavioral disturbance Status: Acute (7) Hyperlipidemia: Qualifiers: Hyperlipidemia type: mixed hyperlipidemia Qualified Code(s): E78.2 - Mixed hyperlipidemia Code(s): E78.5 - Hyperlipidemia, unspecified Status: Acute (8) Diabetes type 2, uncontrolled: Qualifiers: Glycemic state: with hyperglycemia Qualified Code(s): E11.65 - Type 2 diabetes mellitus with hyperglycemia Code(s): E11.65 - Type 2 diabetes mellitus with hyperglycemia Status: Acute (9) Tinea corporis: Code(s): B35.4 - Tinea corporis Status: Acute (10) Chronic kidney disease, stage IV (severe): Code(s): N18.4 - Chronic kidney disease, stage 4 (severe) Status: Chronic (11) Benign essential hypertension: Code(s): I10 - Essential (primary) hypertension Status: Chronic Additional Plan 76 yo F w multiple comorbidities admitted for AMS. Found to have UTI with acute metabolic encephalopathy superimposed on dementa. 02/26/22 CRP ESR procal cmp cbc cultures are NGTD MRI for AMS w Afib pt recently hospitalized delirium ? worsening dementia? after further workup reviewed will meet w family to discuss results and poc Subjective Date/time seen: 02/26/22 15:48 pt remains confused unclear cause Exam Narrative: GEN: NAD, AAOx1, some what cooperative HEENT: NCAT, MMM, EOMI, poor dentition Neck: no JVD Heart: IRR Lungs: CTA B/l Abd: soft, NT, ND, bowel sounds normoactive Ext: moves all, no cyanosis, no clubbing, no edema Neuro: slow cognition, moves all extremities equally, CN intact Psych: mood and affect congruent agitated Objective Data Vital Signs Vital Signs: Vital Signs - 24 hr 02/25/22 19:57 02/25/22 20:00 02/26/22 03:39 Temperature 97.5 F L 97.7 F Pulse Rate 105 H 103 H Respiratory Rate 17 17 18 Blood Pressure 144/98 H 150/80 H Pulse Oximetry 96 96 92 02/26/22 08:26 02/26/22 08:27 02/26/22 14:00 Temperature 98.1 F 97.4 F L Pulse Rate 110 H 110 H 111 H Respiratory Rate 18 17 Blood Pressure 159/105 H 169/123 H Pulse Oximetry 92 02/26/22 14:36 02/26/22 14:40 Temperature Pulse Rate Respiratory Rate Blood Pressure 172/124 H Pulse Oximetry 96 Intake/Output Intake/Output: Intake & Output 02/23/22 02/24/22 02/25/22 02/26/22 23:59 23:59 23:59 23:59 Intake Total 372 3270 3610 1340 Output Total 650 1350 900 350 Balance -278 1920 2710 990 Meds/Results Medications: Active Medications Generic Name Dose Route Start Last Admin Trade Name Freq PRN Reason Stop Dose Admin Acetaminophen 650 mg 02/23/22 09:56 Acetaminophen 325 Mg Tablet PO Q4H PRN pain rated 1-3 Apixaban 5 mg 02/23/22 17:00 02/26/22 08:28 Apixaban 5 Mg Tablet PO 5 mg BID BIANKA Administration Bumetanide 0.5 mg 02/23/22 09:00 02/26/22 08:28 Bumetanide 0.5 Mg Tablet PO 0.5 mg DAILY BIANKA Administration Cyanocobalamin 1,000 mcg 02/23/22 09:00 02/26/22 08:28 Cyanocobalamin 1,000 Mcg Tablet PO 1,000 mcg DAILY BIANKA Administration Dextrose 12.5 gm 02/23/22 13:41 Dextrose 50% 25 Gm/50 Ml Syringe IV PUSH PRN PRN Hypoglycemia Protocol Ferrous Sulfate 324 mg 02/23/22 09:00 02/26/22 08:28 Ferrous Sulfate 324 Mg Tablet PO 324 mg
[2022-02-26 16:25] LABS: Glucose Point of Care 190 mg/dl (65-105)
[2022-02-26] MEDS: METOPROLOL TARTRATE INJ 5 MG/5 ML VIAL IV PUSH (16:44)
[2022-02-26] MEDS: INSULIN GLARGINE (*BKC) 100 UNITS/ML SUB-Q (16:44)
[2022-02-26 21:22] LABS: Glucose Point of Care 186 mg/dl (65-105)
[2022-02-27] VITALS (7 sets, daily range): BP systolic 140–168; BP diastolic 80–127; PULSE 72–113; RESP 14–20; TEMP 32.8–36.9; O2SAT 93–97
[2022-02-27] MEDS: hydrALAZINE HCL 20 MG/ML VIAL 10 MG IV PUSH (04:24)
[2022-02-27] MEDS: SODIUM CHLORIDE 0.9% IV 1,000 ML 95 ML IV CONT ×2 (04:24→16:06)
[2022-02-27 04:28] LABS: Glucose Point of Care 174 mg/dl (65-105)
--- NOTE | 2022-02-27 05:03 | ADMGEN ---
Addendum entered by Mirtha Padgett RN 02/27/22 05:08: wrong pt Original Note: This patient, Maria R Barrientos, was admitted to 2 Medical Room [facility] @0445. Patient/family oriented to hospital policies and general routines including ID bracelet, bed and alarms, visiting hours, pain management, procedures, bathroom and other care routines, personal items, smoking policy, room service/diet, and visiting hours. Information on how to activate the Rapid Response Team has been discussed. Patient/Family are encouraged to report perceived risks to care and to ask questions if they do not understand what they are told or what they should do.
[2022-02-27 07:38] LABS: Glucose Point of Care 163 mg/dl (65-105)
--- NOTE | 2022-02-27 08:37 | PM.IMPN ---
Progress Note: A&P Assessment and Plan (1) Atrial fibrillation: Code(s): I48.91 - Unspecified atrial fibrillation Status: Acute (2) Acute UTI: Code(s): N39.0 - Urinary tract infection, site not specified Status: Acute (3) Acute metabolic encephalopathy: Code(s): G93.41 - Metabolic encephalopathy Status: Acute (4) Acute respiratory failure with hypoxia: Code(s): J96.01 - Acute respiratory failure with hypoxia Status: Acute (5) Chronic renal insufficiency: Code(s): N18.9 - Chronic kidney disease, unspecified Status: Acute (6) Dementia: Code(s): F03.90 - Unspecified dementia without behavioral disturbance Status: Acute (7) Hyperlipidemia: Qualifiers: Hyperlipidemia type: mixed hyperlipidemia Qualified Code(s): E78.2 - Mixed hyperlipidemia Code(s): E78.5 - Hyperlipidemia, unspecified Status: Acute (8) Diabetes type 2, uncontrolled: Qualifiers: Glycemic state: with hyperglycemia Qualified Code(s): E11.65 - Type 2 diabetes mellitus with hyperglycemia Code(s): E11.65 - Type 2 diabetes mellitus with hyperglycemia Status: Acute (9) Tinea corporis: Code(s): B35.4 - Tinea corporis Status: Acute (10) Chronic kidney disease, stage IV (severe): Code(s): N18.4 - Chronic kidney disease, stage 4 (severe) Status: Chronic (11) Benign essential hypertension: Code(s): I10 - Essential (primary) hypertension Status: Chronic Additional Plan 76 yo F w multiple comorbidities admitted for AMS. Found to have UTI with acute metabolic encephalopathy superimposed on dementa. 02/26/22 CRP ESR procal cmp cbc cultures are NGTD MRI for AMS w Afib pt recently hospitalized delirium ? worsening dementia? after further workup reviewed will meet w family to discuss results and poc 02/27/22 work up negative for new etiology will speak w neuro tomorrow cont current care hydralazine for elevated BP optimistic pt will be improved by this evening neurochecks assisted feeding RN requested to crush meds and place in applesauce Subjective Date/time seen: 02/27/22 08:37 sleeping, calm and resting since administration of Ativan for MRI Exam Narrative: GEN: NAD, resting comfortably HEENT: NCAT, MMM, EOMI, poor dentition Neck: no JVD Heart: IRR Lungs: CTA B/l Abd: soft, NT, ND Objective Data Vital Signs Vital Signs: Vital Signs - 24 hr 02/26/22 14:00 02/26/22 14:36 02/26/22 14:40 Temperature 97.4 F L Pulse Rate 111 H Respiratory Rate 17 Blood Pressure 169/123 H 172/124 H Pulse Oximetry 96 02/26/22 16:44 02/26/22 17:11 02/26/22 22:00 Temperature 96.6 F L 98.0 F Pulse Rate 133 H 67 110 H Respiratory Rate 16 18 Blood Pressure 119/61 163/97 H Pulse Oximetry 94 97 02/26/22 22:50 02/27/22 04:20 02/27/22 06:00 Temperature 97.7 F 98.5 F Pulse Rate 103 H 113 H Respiratory Rate 20 16 Blood Pressure 161/127 H 153/99 H Pulse Oximetry 97 94 94 Intake/Output Intake/Output: Intake & Output 02/24/22 02/25/22 02/26/22 02/27/22 23:59 23:59 23:59 23:59 Intake Total 3270 3610 2840 1000 Output Total 5313 009 4302 900 Balance 1920 2710 1740 100 Meds/Results Medications: Active Medications Generic Name Dose Route Start Last Admin Trade Name Freq PRN Reason Stop Dose Admin Acetaminophen 650 mg 02/23/22 09:56 Acetaminophen 325 Mg Tablet PO Q4H PRN pain rated 1-3 Apixaban 5 mg 02/23/22 17:00 02/26/22 16:51 Apixaban 5 Mg Tablet PO Not Given BID BIANKA Bumetanide 0.5 mg 02/23/22 09:00 02/26/22 08:28 Bumetanide 0.5 Mg Tablet PO 0.5 mg DAILY BIANKA Administration Cyanocobalamin 1,000 mcg 02/23/22 09:00 02/26/22 08:28 Cyanocobalamin 1,000 Mcg Tablet PO 1,000 mcg DAILY BIANKA Administration Dextrose 12.5 gm 02/23/22 13:41 Dextrose 50% 25 Gm/50 Ml Syringe IV PUSH PRN PRN Hypoglycemia
[2022-02-27] MEDS: INSULIN GLARGINE (*BKC) 100 UNITS/ML SUB-Q (08:40)
[2022-02-27 11:48] LABS: Glucose Point of Care 157 mg/dl (65-105)
[2022-02-27] MEDS: SODIUM BICARBONATE TAB 650 MG TABLET PO (16:01)
[2022-02-27] MEDS: APIXABAN 5 MG TABLET PO (16:01)
[2022-02-27 16:52] LABS: Glucose Point of Care 197 mg/dl (65-105)
[2022-02-27] MEDS: polyethylene glycoL 3350 17 GM POWD.PACK PO (18:05)
[2022-02-27] MEDS: BISACODYL 10 MG SUPPOSITORY RECTAL (18:42)
[2022-02-28 00:22] LABS: Glucose Point of Care 151 mg/dl (65-105)
[2022-02-28 03:52] VITALS: BP 168/100; PULSE 108; RESP 18; TEMP 36.6; O2SAT 91
[2022-02-28] MEDS: SODIUM CHLORIDE 0.9% IV 1,000 ML 95 ML IV CONT ×2 (04:51→19:28)
[2022-02-28 05:35] LABS: Glucose Point of Care 147 mg/dl (65-105)
[2022-02-28 06:57] LABS: Anion Gap 7 mmol/L (8-16); Blood Urea Nitrogen 35 mg/dL (7-17); Calcium 9.6 mg/dL (8.4-10.2); Carbon Dioxide 18 mmol/L (22-30); Chloride 115 mmol/L (98-107); Estimated CRCL calculation 28 ml/min; Estimated Glomerular Filt Rate 24; Glucose 146 mg/dL (65-110); Potassium 3.6 mmol/L (3.4-5.0); Sodium 140 mmol/L (137-145)
[2022-02-28 08:00] VITALS: PULSE 104; RESP 18; O2SAT 91
[2022-02-28 08:06] LABS: Glucose Point of Care 154 mg/dl (65-105)
[2022-02-28 08:12] VITALS: PULSE 104
[2022-02-28] MEDS: CYANOCOBALAMIN 1,000 MCG TABLET 1000 MCG PO (08:12)
[2022-02-28] MEDS: SODIUM BICARBONATE TAB 650 MG TABLET PO ×2 (08:12→17:00)
[2022-02-28] MEDS: BUMETANIDE 0.5 MG TABLET PO (08:12)
[2022-02-28] MEDS: METOPROLOL SUCCINATE EXT REL 100 MG TABCR PO (08:12)
[2022-02-28] MEDS: APIXABAN 5 MG TABLET PO ×2 (08:12→17:00)
[2022-02-28] MEDS: FERROUS SULFATE 324 MG TABLET PO (08:13)
[2022-02-28] MEDS: ROSUVASTATIN 10 MG TABLET 20 MG PO (08:13)
[2022-02-28] MEDS: INSULIN GLARGINE (*BKC) 100 UNITS/ML SUB-Q (08:13)
[2022-02-28] MEDS: LORATADINE 10 MG TABLET PO (08:13)
[2022-02-28 11:34] LABS: Glucose Point of Care 215 mg/dl (65-105)
[2022-02-28] MEDS: INSULIN ASPART (*BKC) 100 UNITS/ML SUB-Q (12:00)
[2022-02-28 14:00] VITALS: BP 148/94; PULSE 109; RESP 20; TEMP 37; O2SAT 96
--- NOTE | 2022-02-28 15:48 | PM.IMPN ---
Progress Note: A&P Assessment and Plan (1) Atrial fibrillation: Code(s): I48.91 - Unspecified atrial fibrillation Status: Acute (2) Acute metabolic encephalopathy: Code(s): G93.41 - Metabolic encephalopathy Status: Acute (3) Acute respiratory failure with hypoxia: Code(s): J96.01 - Acute respiratory failure with hypoxia Status: Acute (4) Acute UTI: Code(s): N39.0 - Urinary tract infection, site not specified Status: Acute (5) Chronic renal insufficiency: Code(s): N18.9 - Chronic kidney disease, unspecified Status: Acute (6) CHF (congestive heart failure): Code(s): I50.9 - Heart failure, unspecified Status: Acute (7) Dementia: Code(s): F03.90 - Unspecified dementia without behavioral disturbance Status: Acute Additional Plan # urinary tract infection secondary to chronic indwelling Braswell catheter # acute encephalopathy -patient has underlying dementia worsening mentation with acute infection -mentation appears to be improving, patient is able to maintain p.o. intake -neurology to follow up tomorrow -will decrease IV fluids to 60 cc/hour normal saline, patient's p.o. intake is improving- -with her altered mentation home medications that were held: Trazodone, trospium (for bladder spasms), ramelteon, gabapentin, baclofen, Wellbutrin (will resume) -altered mental status may be from polypharmacy # dementia -unclear how far off mentation is her from baseline, likely worsening dementia from infection -no donepezil lower dementia medications on med list # other chronic conditions -chronic atrial fibrillation: Continue Eliquis anticoagulation, continue home Toprol XL 100 mg daily -essential hypertension: Toprol XL, p.r.n. hydralazine -depression: will resume wellbutrin -type 2 diabetes: Continue glargine 5 units daily (at home uses 15 units will titrate as her p.o. intake improves), sliding scale insulin, Accu-Cheks a.c. HS, hypoglycemia protocol. At home uses Januvia -CKD: Continue home bicarb -hyperlipidemia: Continue Crestor -constipation: Continue p.r.n. MiraLax -allergies: Continue Claritin -anemia: Continue ferrous sulfate daily supplement, B12 supplement -history of congestive heart failure with preserved ejection fraction: Continue home Bumex. TTE 06/2021: EF 60 65%, grade 1 diastolic dysfunction Diet: Regular bite size diet DVT prophylaxis: On Eliquis Code status: Full code Disposition: Pending clinical course, likely home in 2-3 days Time Spent With Patient Time with patient: 25 - 35 minutes Subjective Date/time seen: 02/28/22 15:48 Patient seen examined. She appears to be confused oriented only to self. She answers some questions and ignores other questions. She states she has no complaints. She denies fever, chills, nausea, vomiting, diarrhea. Mentation may be improving with treatment of the UTI. Patient has chronic indwelling Braswell catheter. Review of Systems Review of Systems: Limited due to medical condition All systems reviewed & are unremarkable except as noted in HPI and below Exam Narrative: - GENERAL: Pleasant elderly woman in no acute distress - EYES: EOMI. Anicteric. - HENT: Moist mucous membranes. - LUNGS: Clear to auscultation bilaterally, no wheezing, rhonchi, or rales. - CARDIOVASCULAR: Regular rate and rhythm. - ABDOMEN: Soft, non-tender and non-distended. No palpable masses. -: Braswell catheter in place - EXTREMITIES: No edema. Peripheral pulses 2+. Non-tender. - NEUROLOGIC: No obvious focal neurological deficits. CN II-XII grossly intact. - PSYCHIATRIC: Awake, Alert and oriented to self only. Flat affect. Answers some questions - SKIN: No rashes or lesions. Warm. Objective Data Vital Signs Vital Signs: Vital Signs - 24 hr 02/27/22 19:40 02/27/22 23:21 02/28/22 03:52 Temperature 36.6 C 36.6 C Pulse Rate 108 H 108 H Respiratory Rate 18 18 Blood Pressure 140/80 168/100 H Pulse Oximetry 97
[2022-02-28 16:37] LABS: Glucose Point of Care 186 mg/dl (65-105)
[2022-02-28 19:51] VITALS: PULSE 109; RESP 20; O2SAT 96
[2022-02-28] MEDS: buPROPion HCL 75 MG TABLET PO (20:04)
[2022-02-28 20:28] VITALS: BP 156/88; PULSE 108; RESP 18; TEMP 36.8; O2SAT 93
[2022-03-01] MEDS: SODIUM CHLORIDE 0.9% IV 1,000 ML 60 ML IV CONT (03:10)
[2022-03-01 04:34] VITALS: BP 148/92; PULSE 116; RESP 20; TEMP 36.2; O2SAT 92
[2022-03-01 06:25] LABS: Hematocrit 36.6 % (37.0-47.0); Hemoglobin 10.9 g/dL (12.0-15.0); Mean Corpuscular HGB Conc 29.8 g/dl (32-36); Mean Corpuscular Hemoglobin 25.6 pg (26-34); Mean Corpuscular Volume 85.9 fl (80-100); Mean Platelet Volume 11.6 fl (7.4-10.4); Platelet Count Result 257 k/mm3 (150-375); Red Blood Count 4.26 M/mm3 (4.2-5.4); Red Cell Distribution Width 16.2 % (11.5-14.5)
[2022-03-01 06:43] LABS: Anion Gap 7 mmol/L (8-16); Blood Urea Nitrogen 37 mg/dL (7-17); Calcium 9.7 mg/dL (8.4-10.2); Carbon Dioxide 15 mmol/L (22-30); Chloride 117 mmol/L (98-107); Estimated CRCL calculation 26 ml/min; Estimated Glomerular Filt Rate 23; Glucose 175 mg/dL (65-110); Potassium 3.9 mmol/L (3.4-5.0); Sodium 139 mmol/L (137-145)
[2022-03-01 07:57] LABS: Glucose Point of Care 171 mg/dl (65-105)
[2022-03-01 08:00] VITALS: PULSE 110; RESP 20; O2SAT 92
[2022-03-01] MEDS: BUMETANIDE 0.5 MG TABLET PO (09:38)
[2022-03-01] MEDS: APIXABAN 5 MG TABLET PO ×2 (09:38→16:09)
[2022-03-01] MEDS: ROSUVASTATIN 10 MG TABLET 20 MG PO (09:38)
[2022-03-01] MEDS: FERROUS SULFATE 324 MG TABLET PO (09:38)
[2022-03-01] MEDS: SODIUM BICARBONATE TAB 650 MG TABLET PO ×2 (09:39→16:10)
[2022-03-01] MEDS: CYANOCOBALAMIN 1,000 MCG TABLET 1000 MCG PO (09:39)
[2022-03-01 09:40] VITALS: PULSE 110
[2022-03-01] MEDS: LORATADINE 10 MG TABLET PO (09:40)
[2022-03-01] MEDS: FOLIC ACID 0.4 MG TABLET 0.8 MG PO (09:40)
[2022-03-01] MEDS: METOPROLOL SUCCINATE EXT REL 100 MG TABCR PO (09:40)
[2022-03-01] MEDS: buPROPion HCL 75 MG TABLET PO (09:40)
[2022-03-01] MEDS: INSULIN GLARGINE (*BKC) 100 UNITS/ML SUB-Q (09:46)
--- NOTE | 2022-03-01 11:18 | PCNFU ---
Nutrition Follow-Up Complete: Inadequate oral intake related to poor PO intake as evidenced by refusal of meals. Goal: Achieve adequate intake of 75% of meals. Patient has limited progress towards goal. We will continue current goal. Pt current nutrition is Soft and Bite Sized, level 6 with nutritional ice cream TID. Last recorded weight is 95.9 kg, no new weight to report. Bowel Motility:+BM reported 5/5-miralax has been started. Labs Reviewed:Glu 175,BUN 37, Cr 2.10,Hct 36.6,Hgb 10.6 Meds Noted:Miralax, Eliquis, NovoLog, Toprol XI, Lopressor Inj, Crestor, ferrous sulfate, NS, sodium bicarbonate, folic acid, Vitamin B12 Skin: WNL Additional Notes: Patient remains on a soft and bite sized, level 6 diet. Oral Intake has been 10-20% of most meals. Diet supplements of nutritional ice cream TID providing an additional 290 kcals and 9 gms protein. Patient has been consuming the ice cream. PO intake encouraged. Agree with diet orders. Monitor weight, labs, and intake and will follow up every 3 days.
[2022-03-01 12:10] LABS: Glucose Point of Care 191 mg/dl (65-105)
--- NOTE | 2022-03-01 12:34 | WPDNEUROPN ---
Progress Note: A&P Additional Plan patient has underlying dementia with negative MRI and definitely improving mental status will need to be treated for the acute condition but the treatment for the chronic condition will be continued as such there is no changes in the treatment otherwise Time Spent With Patient Time with patient: less than 15 minutes Subjective Date/time seen: 03/01/22 12:34 76 years old lady admitted to the hospital through the emergency room where she was transferred from [facility] for the complains a change in the mental status in addition to ongoing history of 1. Atrial fibrillation 2. Hypertension 3. Right ICA stenosis of 50% by Doppler 4 diabetes mellitus 5 hearing deficit 6 cognitive impairment 7 thoracic aortic aneurysm and with no history of smoking or drinking and also MRI on February 26, 2022 only consistent with the white-matter disease pontine disease Review of Systems Review of Systems: All systems reviewed & are unremarkable except as noted in HPI and below Exam Narrative: awake alert not following verbal commands appropriately, able to move both upper and lower extremities spontaneously, ear nose throat examination normal ,neck supple with no bruit ,heart regular, lungs clear ,abdomen is sof,t neurological is she is awake alert being given bath by the nurses ,able to listen to the physician but not answering appropriately ,moving both upper and lower extremities and reflexes are sluggish but symmetrical and plantars are downgoing Objective Data Vital Signs Vital Signs: Vital Signs - 24 hr 02/28/22 14:00 02/28/22 19:51 02/28/22 20:28 Temperature 37.0 C 36.8 C Pulse Rate 109 H 109 H 108 H Respiratory Rate 20 20 18 Blood Pressure 148/94 H 156/88 H Pulse Oximetry 96 96 93 03/01/22 04:34 03/01/22 08:00 03/01/22 09:40 Temperature 36.2 C L Pulse Rate 116 H 110 H 110 H Respiratory Rate 20 20 Blood Pressure 148/92 H Pulse Oximetry 92 92 Intake/Output Intake/Output: Intake & Output 02/26/22 02/27/22 02/28/22 03/01/22 23:59 23:59 23:59 23:59 Intake Total 2840 2240 3332 1240 Output Total 1100 1450 600 300 Balance 1407 032 5226 940 Meds/Results Medications: Active Medications Generic Name Dose Route Start Last Admin Trade Name Freq PRN Reason Stop Dose Admin Acetaminophen 650 mg 02/23/22 09:56 Acetaminophen 325 Mg Tablet PO Q4H PRN pain rated 1-3 Apixaban 5 mg 02/23/22 17:00 03/01/22 09:38 Apixaban 5 Mg Tablet PO 5 mg BID BIANKA Administration Bumetanide 0.5 mg 02/23/22 09:00 03/01/22 09:38 Bumetanide 0.5 Mg Tablet PO 0.5 mg DAILY BIANKA Administration Bupropion HCl 75 mg 02/28/22 21:00 03/01/22 09:40 Bupropion Hcl 75 Mg Tablet PO 75 mg Q12HR BIANKA Administration Cyanocobalamin 1,000 mcg 02/23/22 09:00 03/01/22 09:39 Cyanocobalamin 1,000 Mcg Tablet PO 1,000 mcg DAILY BIANKA Administration Dextrose 12.5 gm 02/23/22 13:41 Dextrose 50% 25 Gm/50 Ml Syringe IV PUSH PRN PRN Hypoglycemia Protocol Ferrous Sulfate 324 mg 02/23/22 09:00 03/01/22 09:38 Ferrous Sulfate 324 Mg Tablet PO 324 mg DAILY BIANKA Administration Folic Acid 0.8 mg 03/01/22 09:00 03/01/22 09:40 Folic Acid 0.4 Mg Tablet PO 0.8 mg DAILY BIANKA Administration Glucagon 1 mg 02/23/22 13:41 Glucagon For Inj 1 Mg Vial IM PRN PRN Hypoglycemia Protocol Glucose 15 gm 02/23/22 13:41 Glucose Oral Gel 15 Gm Of Glucse In 37.5 Gm Tube PO PRN PRN Hypoglycemia Protocol Hydralazine HCl 10 mg 02/23/22 16:30 02/27/22 04:24 Hydralazine Hcl 20 Mg/Ml Vial IV PUSH 10 mg Q8H PRN Administration Systolic BP >170 diast BP >110 Dextrose 1,000 mls @ 100 mls/hr 02/23/22 13:41 Dextrose 5% 1,000 Ml IVPB PRN PRN Hypoglycemia Protocol Sodium Chloride 1,000 mls @ 60 mls/hr 02/23/22 13:45 03/01/22 03:10 Normal Saline Iv IV CONT 60 mls/hr .[id number] BIANKA Administrat
[2022-03-01] MEDS: CHOLECALCIFEROL 1,000 UNITS TABLET 2000 UNITS PO (12:39)
[2022-03-01] MEDS: PHARMACIST COMMUNICATION ORDER 1 EACH XX (12:39)
[2022-03-01 14:00] VITALS: BP 150/90; PULSE 105; RESP 20; TEMP 36.6; O2SAT 94
--- NOTE | 2022-03-01 15:08 | PM.DS ---
DS: Admitting Diagnosis Discharge Date 03/01/22 Admitting Diagnosis (1) Acute UTI: Code(s): N39.0 - Urinary tract infection, site not specified Status: Acute Assessment and Plan: Urology has been consult and appreciate further recommendations. Patient did have urinary tract infection during last admission and urine culture showed susceptibility to ceftriaxone. Patient was discharged on cefdinir. Urology agrees with ceftriaxone at this time will await urine culture result. (2) Acute metabolic encephalopathy: Code(s): G93.41 - Metabolic encephalopathy Status: Acute Assessment and Plan: Patient was placed on multiple medications that could have caused altered mental status and lethargy. At this point time will hold baclofen as well as gabapentin and Wellbutrin. (3) Chronic renal insufficiency: Code(s): N18.9 - Chronic kidney disease, unspecified Status: Acute Assessment and Plan: Patient's creatinine is at baseline at 2.2. Will gently hydrate patient since patient does have extremely dry mucous membranes at this time. (4) Acute dehydration: Code(s): E86.0 - Dehydration Status: Acute Assessment and Plan: . DS: Discharge Diagnosis Discharge Diagnosis (1) Atrial fibrillation: Code(s): I48.91 - Unspecified atrial fibrillation Status: Acute (2) Acute UTI: Code(s): N39.0 - Urinary tract infection, site not specified Status: Acute (3) Acute metabolic encephalopathy: Code(s): G93.41 - Metabolic encephalopathy Status: Acute (4) Depression: Qualifiers: Depression Type: unspecified Qualified Code(s): F32.A - Depression, unspecified Code(s): F32.A - Depression, unspecified Status: Acute (5) Acute respiratory failure with hypoxia: Code(s): J96.01 - Acute respiratory failure with hypoxia Status: Acute (6) Chronic renal insufficiency: Code(s): N18.9 - Chronic kidney disease, unspecified Status: Acute (7) CHF (congestive heart failure): Code(s): I50.9 - Heart failure, unspecified Status: Acute (8) Dementia: Code(s): F03.90 - Unspecified dementia without behavioral disturbance Status: Acute (9) Altered mental state: Code(s): R41.82 - Altered mental status, unspecified Status: Acute (10) Hypertension: Qualifiers: Hypertension type: primary hypertension Qualified Code(s): I10 - Essential (primary) hypertension Code(s): I10 - Essential (primary) hypertension Status: Acute (11) Debility: Code(s): R53.81 - Other malaise Status: Acute (12) Mild cognitive impairment: Code(s): G31.84 - Mild cognitive impairment, so stated Status: Acute (13) Medication side effects: Code(s): T88.7XXA - Unspecified adverse effect of drug or medicament, initial encounter Status: Acute DS: Summary Hospital Course Reason for hospitalization: AMS Hospital Course: 76-year-old female recently discharged from the hospital with AMS secondary to UTI returns with acute metabolic encephalopathy. She was previously treated for urinary tract infection, urine cultures this time did not grow anything. She did however start 3 new medications Wellbutrin, gabapentin, and baclofen a day prior to her discharge. Since hospitalization this time patient has had mental clearing. Neurological workup including MRI is negative. She has been seen by Neurology and cleared for discharge back to her residential facility. Plan of care has been reviewed with her daughter Shima as well as the reservoir caretaker today at 3:00 p.m. who will assist with getting her back to her rehab. Status at Discharge Functional status at discharge: wheelchair bound Overall status at discharge: patient is progressing back to baseline Time Spent with Patient Time attestation: Total time spent providing and/or coordinating discharge services
--- NOTE | 2022-03-01 15:49 | PC.NURSE ---
pt to discharge to [facility] via ambulance.
--- NOTE | 2022-03-01 15:50 | PC.NURSE ---
called report to [facility].
[2022-03-01 16:02] LABS: EDCOVIDSCREEN Negative (Negative)
[2022-03-01] MEDS: ACETAMINOPHEN 325 MG TABLET 650 MG PO (16:09)
[2022-03-01] MEDS: amLODIPine BESYLATE 5 MG TABLET PO (16:09)
[2022-03-01 16:30] LABS: Glucose Point of Care 193 mg/dl (65-105)
--- NOTE | 2022-03-01 17:31 | PC.NURSE ---
called MD Pearson pt daughter concerned about pt discharging today.
--- NOTE | 2022-03-01 18:05 | PC.NURSE ---
gabapentin stopped per pt daughter request per MD Pearson, pt daughter don't want her to discharge. Pt will stay one more night.
[2022-03-01 19:51] VITALS: PULSE 105; RESP 20; O2SAT 94
[2022-03-01] MEDS: TOLNAFTATE 1% POWDER 45 GM BTL 1 APPLIC TOPICAL (20:02)
[2022-03-01 22:00] VITALS: BP 144/96; PULSE 74; RESP 18; TEMP 36.2; O2SAT 96
[2022-03-02 04:33] VITALS: O2SAT 95
[2022-03-02 06:00] VITALS: BP 154/88; PULSE 74; RESP 18; TEMP 36.4; O2SAT 96
[2022-03-02] MEDS: SODIUM CHLORIDE 0.9% IV 1,000 ML 60 ML IV CONT (06:02)
[2022-03-02 07:56] LABS: Glucose Point of Care 169 mg/dl (65-105)
[2022-03-02] MEDS: APIXABAN 5 MG TABLET PO ×2 (08:38→18:18)
[2022-03-02] MEDS: BUMETANIDE 0.5 MG TABLET PO (08:38)
[2022-03-02] MEDS: LORATADINE 10 MG TABLET PO (08:38)
[2022-03-02] MEDS: ROSUVASTATIN 10 MG TABLET 20 MG PO (08:38)
[2022-03-02] MEDS: FOLIC ACID 0.4 MG TABLET 0.8 MG PO (08:38)
[2022-03-02] MEDS: SODIUM BICARBONATE TAB 650 MG TABLET PO ×2 (08:38→18:18)
[2022-03-02] MEDS: CYANOCOBALAMIN 1,000 MCG TABLET 1000 MCG PO (08:38)
[2022-03-02 08:39] VITALS: PULSE 88
[2022-03-02] MEDS: amLODIPine BESYLATE 5 MG TABLET PO ×2 (08:39→18:18)
[2022-03-02] MEDS: METOPROLOL SUCCINATE EXT REL 100 MG TABCR PO (08:39)
[2022-03-02] MEDS: TOLNAFTATE 1% POWDER 45 GM BTL 1 APPLIC TOPICAL (08:54)
[2022-03-02] MEDS: FERROUS SULFATE 324 MG TABLET PO (08:55)
[2022-03-02] MEDS: INSULIN GLARGINE (*BKC) 100 UNITS/ML SUB-Q (08:55)
[2022-03-02] MEDS: CHOLECALCIFEROL 1,000 UNITS TABLET 2000 UNITS PO (10:12)
[2022-03-02 11:14] LABS: Glucose Point of Care 228 mg/dl (65-105)
[2022-03-02] MEDS: INSULIN ASPART (*BKC) 100 UNITS/ML SUB-Q (12:01)
--- NOTE | 2022-03-02 13:48 | PCNEURO ---
EEG attempted but patient refused and would not cooperate with tech to complete the setup.
[2022-03-02 14:00] VITALS: BP 148/87; PULSE 84; RESP 16; TEMP 36.3; O2SAT 96
[2022-03-02] MEDS: BISACODYL 10 MG SUPPOSITORY RECTAL (15:04)
[2022-03-02 16:32] LABS: Glucose Point of Care 196 mg/dl (65-105)
--- NOTE | 2022-03-02 16:39 | PC.NURSE ---
Agency Sales Director spoke with Tonja at [facility], the are declining to take pt until pt has BM supp administered this afternoon.
== END 2022-03-02 19:45 | DRG 698 ==
LOC: ANHED 15:54 → ANH2MED 16:58
PROVIDERS: Hospitalist; Internal Medicine; Physician Assistant; Student in an Organized Health Care Education/Training Program; Admitting Provider Family Medicine; Emergency Provider Emergency Medicine; PCP Internal Medicine; Visit Provider Family Medicine
DX: T83.511A Infection and inflammatory reaction due to indwelling urethral catheter, initial encounter (principal); G93.41 Metabolic encephalopathy; J96.01 Acute respiratory failure with hypoxia; G92.8 Other toxic encephalopathy; I13.0 Hypertensive heart and chronic kidney disease with heart failure and stage 1 through stage 4 chronic kidney disease, or unspecified chronic kidney disease; N18.4 Chronic kidney disease, stage 4 (severe); I48.20 Chronic atrial fibrillation, unspecified; I50.32 Chronic diastolic (congestive) heart failure; N39.0 Urinary tract infection, site not specified; T50.915A Adverse effect of multiple unspecified drugs, medicaments and biological substances, initial encounter; E11.22 Type 2 diabetes mellitus with diabetic chronic kidney disease; E86.0 Dehydration; Z20.822 Contact with and (suspected) exposure to COVID-19; F32.A Depression, unspecified; F03.90 Unspecified dementia, unspecified severity, without behavioral disturbance, psychotic disturbance, mood disturbance, and anxiety; R53.81 Other malaise; E78.5 Hyperlipidemia, unspecified; M81.0 Age-related osteoporosis without current pathological fracture; N32.81 Overactive bladder; D64.9 Anemia, unspecified; N39.3 Stress incontinence (female) (male); E11.65 Type 2 diabetes mellitus with hyperglycemia; N39.41 Urge incontinence; K59.00 Constipation, unspecified; E53.8 Deficiency of other specified B group vitamins; E55.9 Vitamin D deficiency, unspecified; Z98.49 Cataract extraction status, unspecified eye; Z96.1 Presence of intraocular lens; Z85.3 Personal history of malignant neoplasm of breast; Z87.442 Personal history of urinary calculi
CPT/HCPCS: 36415; 36600; 70450; 70551; 71045; 74176; 80048; 80053; 81001; 82140; 82550; 82607; 82746; 82805; 82948; 83036; 83605; 83880; 84145; 84439; 84443; 84480; 84484; 85025; 85027; 85610; 85652; 85730; 86140; 87040; 87086; 87426; 93005; 96365; 96372; 96375; 99285; A9270; C9803; G0378; J0131; J0360; J0696; J1630; J1815; J2060; J2405; J7030; J7120

== ENCOUNTER 2022-03-18 16:30 | Inpatient (IN) | payer MEDICARE, OTHER, SELFPAY ==
[2022-03-18] VITALS (7 sets, daily range): BP systolic 104–133; BP diastolic 65–93; PULSE 53–73; RESP 14–20; TEMP 36.2–36.6; O2SAT 89–100; BMI 42.5
--- NOTE | ~2022-03-18 | MR_ITS ---
EXAMINATION: MR brain/brain stem wo con DATE: 03/19/2022 11:42 INDICATION: Unresponsive. TECHNIQUE: Magnetic resonance imaging (MRI) of the brain and brainstem was performed without intraven ous contrast. COMPARISON: Brain MRI 02/26/2022, head CT 03/18/2022 FINDINGS: There are scattered areas of nonspecific increased T2-weighted signal intensity in the cere bral white matter and sangeeta. There is no intracranial hemorrhage, acute infarction, or abnormal intrac ranial mass lesion. The ventricles are normal in size. The mastoid air cells are normal. The paranasa l sinuses are clear. There are likely changes of right ocular lens replacement surgery. IMPRESSION: 1. Stable moderate nonspecific cerebral white matter disease and pontine disease, which likely repres ents chronic small vessel ischemic disease. Reviewed, dictated and finalized at location A. IMPRESSION: 1. Stable moderate nonspecific cerebral white matter disease and pontine diseas e, which likely represents chronic small vessel ischemic disease.
--- NOTE | ~2022-03-18 | CT_ITS ---
EXAMINATION: CT brain wo con DATE: 03/18/2022 17:27 INDICATION: Altered mental status. TECHNIQUE: Computed tomography (CT) of the head was performed without intravenous contrast. The dose- length product was 605.33 mGy-cm. Automated exposure control and iterative reconstruction technique w ere employed. COMPARISON: CT dated 02/22/2022 FINDINGS: Mild generalized atrophy. There is intracranial atherosclerosis. There are scattered mild p eriventricular and subcortical white matter changes, most likely related to small vessel ischemic dis ease (microangiopathy). No acute intracranial hemorrhage, infarction, mass or mass effect. No ventric ulomegaly or midline shift. Basilar cisterns are patent. No depressed skull fractures. IMPRESSION: 1. No acute intracranial abnormality. 2: Chronic age-related findings. Reviewed, dictated and finalized at location A.
[2022-03-18 16:48] LABS: Glucose Point of Care 133 mg/dl (65-105)
--- NOTE | 2022-03-18 16:53 | ECG_ITS ---
Measurements Intervals Leslie Rate: 67 P: MI: 0 QRS: 2 QRSD: 109 T: -2 QT: 429 QTc: 456 Interpretive Statements ATRIAL FIBRILLATION BORDERLINE R WAVE PROGRESSION, ANTERIOR LEADS BORDERLINE T WAVE ABNORMALITY- ANT/INF LEADS BASELINE WANDER- AVF, V1-V3 ABNORMAL ECG Electronically Signed On 03-18-2022 20:35:58 CDT by Don Flores D.O.
--- NOTE | 2022-03-18 16:59 | PC.NURSE ---
multiple attempt at IV access without success.
--- NOTE | 2022-03-18 17:12 | ED.AMS ---
HPI - Altered Mental Status General Chief Complaint: Altered Mental Status Stated Complaint: Altered Mental Status Time Seen by Provider: 03/18/22 16:36 History of Present Illness HPI narrative: Patient is a 76-year-old female with a past medical history of diabetes, hypertension, dementia, brought in by EMS due to decreased responsiveness at the [place] [facility]. According to daughter patient's baseline is patient is alert and oriented x2, able to transfer from bed to wheelchair but nonambulatory. Patient currently is nonverbal, unable to follow any commands. Related Data Home Medications Medication Instructions Recorded Confirmed cyanocobalamin (vitamin B-12) 1,000 mcg PO DAILY 08/18/20 02/22/22 1,000 mcg tablet folic acid 800 mcg tablet 0.8 mg PO DAILY 08/18/20 02/22/22 Lactobacillus acidoph-pectin 1 cap PO BID 01/11/22 02/22/22 [Acidophilus-Pectin] estradiol 1 g vaginal 2XW 01/11/22 02/22/22 ferrous sulfate 324 mg (65 mg 324 mg PO DAILY 01/11/22 02/22/22 iron) tablet,delayed release ramelteon 8 mg tablet 8 mg PO QHS 01/11/22 02/22/22 trazodone 50 mg tablet 50 mg PO QHS 01/11/22 02/22/22 trospium 20 mg tablet 20 mg PO DAILY PRN Bladder Spasms 01/11/22 02/22/22 cetirizine 10 mg capsule (Allergy 10 mg PO DAILY 02/16/22 02/22/22 Relief (cetirizine)) ergocalciferol (vitamin D2) 50 mcg PO DAILY 02/16/22 02/22/22 Allergies Allergy/AdvReac Type Severity Reaction Status Date / Time Sulfa (Sulfonamide Allergy Severe Rash Verified 02/27/22 05:22 Antibiotics) Review of Systems Review of Systems: ROS unobtainable: Yes unobtainable due to medical condition and unobtainable due to mental status PMFSH Past Medical History Medical History A-fib Benign essential hypertension Body mass index (BMI) 40.0-44.9, adult Cancer of right breast status post radiation and chemotherapy Carotid bruit less than 50% stenosis of right internal carotid artery a on Doppler 07/01/2020 Castlemans disease Chronic kidney disease, stage 3 Chronic UTI Constipation Depression Diabetes type 2, uncontrolled DM type 2 (diabetes mellitus, type 2) (~2018) Elevated BUN Elevated serum homocysteine level Hearing loss of both ears History of orthostatic hypotension Hyperlipidemia Kidney stones of the left kidney with multiple lithotripsies Knee pain Left ventricular outflow obstruction echocardiogram May 2020 Mild cognitive impairment Osteoporosis DEXA scan 08/14/2020 Overactive bladder Physical deconditioning Stress incontinence in female Thoracic aortic aneurysm Thyroid nodule (~2014) Urinary incontinence Urinary incontinence Vitamin B12 deficiency Vitamin D deficiency Surgical History Surgical History Status post cataract extraction and insertion of intraocular lens of right eye Status post right breast lumpectomy Family History Family History Sibling Cerebrovascular accident Diabetes mellitus Father Diabetes mellitus Mother Cervical cancer Social History Social History Social History: The patient lives with her 46-year-old daughter. She is . She is a lifelong nonsmoker and does not drink alcohol or use illicit substances. She is retired from the [employer]. Primary care physician: Dr. Carl Maloney code status: Full code Surrogate decision maker: Daughter Smoking status: Never smoker Second hand tobacco smoke exposure: No Alcohol intake: never Substance use: never Substance use type: does not use Gender identity (if verbalized by the patient): Female Spiritual care concerns: No Exam Const: General: comfortable and well developed Other: Patient lethargic, nonverbal HENMT: Head: normal to inspection, normocephalic and atraumatic
[2022-03-18 17:52] LABS: Basophils Percent Auto 0.5 % (0.2-1.2); Eosinophils Absolute Auto 0.1 K/mm3 (0-0.3); Eosinophils Percent Auto 2.1 % (0-4.4); Hematocrit 33.5 % (37.0-47.0); Hemoglobin 9.8 g/dL (12.0-15.0); Immature Granulocyte Absolute 0.02 K/mm3 (0.00-0.031); Immature Granulocyte Percent A 0.3 % (0-0.5); Lymphocytes Absolute Auto 1.32 K/mm3 (0.9-3.2); Lymphocytes Percent Auto 21.8 % (18.3-44.2); Mean Corpuscular HGB Conc 29.3 g/dl (32-36); Mean Corpuscular Hemoglobin 25.6 pg (26-34); Mean Corpuscular Volume 87.5 fl (80-100); Mean Platelet Volume 10.5 fl (7.4-10.4); Monocytes Absolute Auto 0.5 K/mm3 (0.1-0.6); Monocytes Percent Auto 8.3 % (2.6-8.5); Neutrophils Absolute Auto 4.1 K/mm3 (1.3-6.7); Platelet Count Result 192 k/mm3 (150-375); Red Blood Count 3.83 M/mm3 (4.2-5.4); White Blood Count 6.1 K/mm3 (4.5-10.0)
[2022-03-18 17:54] LABS: Appearance Urine Cloudy (Clear); Bilirubin Urine Negative (Negative); Blood Urine 3+ (Negative); Color Urine Yellow (Yellow); Glucose Urine UA Trace mg/dL (Negative); Ketones Urine Negative (Negative); Leukocyte Esterase Ur 3+ LEU/UL (Negative); Nitrate Urine Positive (Negative); Protein Urine 3+ mg/dL (Negative); Specific Grav Ur 1.025 (1.001-1.035); Urobilinogen Urine 0.2 mg/dL (<2.0)
[2022-03-18 18:01] LABS: Alanine Aminotransferase 23 U/L (6-35); Albumin Level 3.4 g/dL (3.5-5.1); Alkaline Phosphatase 92 U/L (38-126); Anion Gap 2 mmol/L (8-16); Aspartate Amino Transferase 24 U/L (14-36); Bilirubin,Total 0.8 mg/dL (0.2-1.3); Blood Urea Nitrogen 42 mg/dL (7-17); Calcium 10.4 mg/dL (8.4-10.2); Carbon Dioxide 31 mmol/L (22-30); Chloride 106 mmol/L (98-107); Estimated Glomerular Filt Rate 21; Glucose 128 mg/dL (65-110); Potassium 3.9 mmol/L (3.4-5.0); Sodium 139 mmol/L (137-145)
[2022-03-18 18:03] LABS: INR 1.6; Prothrombin Time 18.2 Seconds (11.1-14.7)
[2022-03-18 18:04] LABS: Bacteria Urine Trace /hpf; Budding Yeast Urine Present /hpf; Partial Thromboplastin Time 33.4 SECONDS (22.3-36.8); RBC Urine >75 /hpf (0-2); WBC Clumps Urine Present /HPF; WBC Urine >75 /hpf
[2022-03-18 18:08] LABS: Platelet Estimate Adequate (Adequate)
[2022-03-18 18:09] LABS: Hypochromasia 1+ (NORMAL); Ovalocytes 1+ (NORMAL); Poikilocytosis 2+ (NORMAL); Schistocytes 1+ (NORMAL)
[2022-03-18 18:11] LABS: Add Urine Microscopic? YES
--- NOTE | 2022-03-18 19:10 | PC.NURSE ---
Report received from Suzy LUEVANO and care of pt assumed at this time
--- NOTE | 2022-03-18 20:24 | PM.IMHP ---
H&P: HPI History of Present Illness Date/Time: 03/18/22 20:24 Chief Complaint: Altered mental status Narrative: 76-year-old female from the [facility] presenting with altered mental status. Due to the EMR being down, I am unable to see ER documentation or prior clinical history. Per sign-out from the ER physician over the phone, patient was brought here from the nursing facility because she was less responsive. At baseline, family states she is alert oriented x2. Now she is somnolent and nonverbal essentially. Urinalysis in the ER was grossly abnormal. Her Braswell catheter was then changed and a repeat urinalysis was sent. Creatinine was noted to be 2.3 and she was given a dose of Rocephin for possible UTI. Per the nursing staff who spoke with family, the patient has had worsening mentation changes over the last few weeks and recently been diagnosed with dementia, however, the family does not think that it is dementia they think it is more related to her frequent UTIs. The nurse taking care of her this evening states he is taking care of her before and she normally is alert oriented x2. Review of systems unable to be obtained as patient was essentially unresponsive. Review of Systems Review of Systems: Unable to obtain ROS unobtainable: Yes unobtainable due to mental status PMFSH Past Medical History Medical History A-fib Benign essential hypertension Body mass index (BMI) 40.0-44.9, adult Cancer of right breast status post radiation and chemotherapy Carotid bruit less than 50% stenosis of right internal carotid artery a on Doppler 07/01/2020 Castlemans disease Chronic kidney disease, stage 3 Chronic UTI Constipation Depression Diabetes type 2, uncontrolled DM type 2 (diabetes mellitus, type 2) (~2018) Elevated BUN Elevated serum homocysteine level Hearing loss of both ears History of orthostatic hypotension Hyperlipidemia Kidney stones of the left kidney with multiple lithotripsies Knee pain Left ventricular outflow obstruction echocardiogram May 2020 Mild cognitive impairment Osteoporosis DEXA scan 08/14/2020 Overactive bladder Physical deconditioning Stress incontinence in female Thoracic aortic aneurysm Thyroid nodule (~2014) Urinary incontinence Urinary incontinence Vitamin B12 deficiency Vitamin D deficiency Surgical History Surgical History Status post cataract extraction and insertion of intraocular lens of right eye Status post right breast lumpectomy Family History Family History Sibling Cerebrovascular accident Diabetes mellitus Father Diabetes mellitus Mother Cervical cancer Social History Social History Social History: The patient lives with her 46-year-old daughter. She is . She is a lifelong nonsmoker and does not drink alcohol or use illicit substances. She is retired from the [employer]. Primary care physician: Dr. Carl Maloney code status: Full code Surrogate decision maker: Daughter Smoking status: Never smoker Second hand tobacco smoke exposure: No Alcohol intake: never Substance use: never Substance use type: does not use Gender identity (if verbalized by the patient): Female Spiritual care concerns: No Meds Home Medications and Allergies Home Medications Medication Instructions Recorded Confirmed Type cyanocobalamin (vitamin B-12) 1,000 mcg PO DAILY 08/18/20 03/18/22 History 1,000 mcg tablet folic acid 800 mcg tablet 0.8 mg PO DAILY 08/18/20 03/18/22 History acetaminophen 325 mg tablet (Mapap 650 mg PO Q4H PRN pain 30 days 04/26/21 03/18/22 Rx (acetaminophen)) sodium bicarbonate 650 mg tablet 650 mg PO BID #180 tabs 07/30/21 03/18/22 Rx Lactobacillus acidoph-pectin 1 cap PO BID 03
[2022-03-18] MEDS: LACTATED RINGERS 1,000 ML 75 ML IV CONT (21:39)
[2022-03-19] VITALS (10 sets, daily range): BP systolic 124–150; BP diastolic 71–88; PULSE 59–110; RESP 16–18; TEMP 36.1–36.4; O2SAT 92–96
[2022-03-19 01:01] LABS: Glucose Point of Care 112 mg/dl (65-105)
[2022-03-19 01:17] LABS: HCO3 ABG 29.4 mEq/l (22.0-26.0); PCO2 ABG 51.8 mmHg (35.0-45.0); PO2 ABG 79.7 mmHg (80.0-100.0); pH ABG 7.372 (7.350-7.450)
[2022-03-19 01:18] LABS: Alveolar/Arterial O2 Gradient 58.8 mmHg; Base Excess ABG 3.4 mEq/l (+/-2.0); Oxygen Content ABG 14.2 %vol (16.0-22.0); Oxygen Saturation ABG 95.3 % (95.0-100.0); PO2 FiO2 Ratio Arterial Blood 2.85 %; Total Hemoglobin 10.7 g/dL (12.0-18.0)
[2022-03-19 01:19] LABS: Device NASAL CANNULA; Fractional Inspired Oxygen 28 %; Modified Allen's Test Pass; Site Drawn RIGHT RADIAL
[2022-03-19 02:44] LABS: Add Urine Microscopic? YES; Appearance Urine Cloudy (Clear); Bilirubin Urine Negative (Negative); Blood Urine 2+ (Negative); Color Urine Yellow (Yellow); Glucose Urine UA Trace mg/dL (Negative); Ketones Urine Negative (Negative); Leukocyte Esterase Ur 2+ LEU/UL (Negative); Nitrate Urine Negative (Negative); Protein Urine 3+ mg/dL (Negative); Specific Grav Ur 1.025 (1.001-1.035); Urobilinogen Urine 0.2 mg/dL (<2.0)
[2022-03-19 02:58] LABS: Bacteria Urine Trace /hpf; RBC Urine >75 /hpf (0-2); Squamous Epithelial Cell Urine Few /hpf (Few); WBC Clumps Urine Present /HPF; WBC Urine >75 /hpf
[2022-03-19 03:01] LABS: Ammonia < 9 umol/L (9-30)
[2022-03-19 06:16] LABS: Glucose Point of Care 99 mg/dl (65-105)
[2022-03-19] MEDS: APIXABAN 5 MG TABLET PO ×2 (08:27→16:49)
[2022-03-19] MEDS: METOPROLOL SUCCINATE EXT REL 100 MG TABCR PO (08:27)
[2022-03-19] MEDS: INSULIN GLARGINE (*BKC) 100 UNITS/ML 15 UNITS SUB-Q (08:27)
[2022-03-19 08:35] LABS: CRP 1.2 mg/dL (<1.0)
[2022-03-19 09:27] LABS: Basophils Percent Auto 0.5 % (0.2-1.2); Eosinophils Absolute Auto 0.1 K/mm3 (0-0.3); Eosinophils Percent Auto 1.6 % (0-4.4); Hematocrit 38.7 % (37.0-47.0); Hemoglobin 10.4 g/dL (12.0-15.0); Immature Granulocyte Absolute 0.02 K/mm3 (0.00-0.031); Immature Granulocyte Percent A 0.4 % (0-0.5); Lymphocytes Absolute Auto 0.88 K/mm3 (0.9-3.2); Lymphocytes Percent Auto 16.1 % (18.3-44.2); Mean Corpuscular HGB Conc 26.9 g/dl (32-36); Mean Corpuscular Hemoglobin 25.5 pg (26-34); Mean Corpuscular Volume 94.9 fl (80-100); Mean Platelet Volume 11.4 fl (7.4-10.4); Monocytes Absolute Auto 0.4 K/mm3 (0.1-0.6); Monocytes Percent Auto 6.4 % (2.6-8.5); Neutrophils Absolute Auto 4.1 K/mm3 (1.3-6.7); Platelet Count Result 168 k/mm3 (150-375); Red Blood Count 4.08 M/mm3 (4.2-5.4); Red Cell Distribution Width 17.1 % (11.5-14.5); White Blood Count 5.5 K/mm3 (4.5-10.0)
[2022-03-19 09:30] LABS: Lactic Acid Reflex 1.4 mmol/L (0.7-2.0)
[2022-03-19 09:31] LABS: Alanine Aminotransferase 20 U/L (6-35); Albumin Level 3.1 g/dL (3.5-5.1); Alkaline Phosphatase 88 U/L (38-126); Anion Gap 6 mmol/L (8-16); Aspartate Amino Transferase 22 U/L (14-36); Bilirubin,Total 0.8 mg/dL (0.2-1.3); Blood Urea Nitrogen 39 mg/dL (7-17); Calcium 10.3 mg/dL (8.4-10.2); Carbon Dioxide 24 mmol/L (22-30); Chloride 109 mmol/L (98-107); Estimated CRCL calculation 24 ml/min; Estimated Glomerular Filt Rate 22; Glucose 108 mg/dL (65-110); Sodium 139 mmol/L (137-145)
[2022-03-19] MEDS: LACTATED RINGERS 1,000 ML 75 ML IV CONT (10:39)
--- NOTE | 2022-03-19 10:42 | P.PNIM_ITS ---
Progress Note: A&P Assessment and Plan (1) Altered mental status, unspecified: Code(s): R41.82 - Altered mental status, unspecified <Alexsandra Garzon, PA-C - Last Filed: 03/19/22 11:51> Status: Acute <Alexsandra Garzon PA-C - Last Filed: 03/19/22 11:51> Assessment and Plan: Patient is A&Ox1 today. * Head CT with no acute findings * Brain MRI pending * Appreciate Neurology consultation * Urine toxicology screen is pending * Ammonia within normal limits. TSH, B12, folate checked earlier this month and noncontributory to symptoms <Alexsandra Garzon, PA-C - Last Filed: 03/19/22 11:51> (2) Acute metabolic encephalopathy: Code(s): G93.41 - Metabolic encephalopathy <Alexsandra Garzon, PA-C - Last Filed: 03/19/22 11:51> Status: Acute <Alexsandra Garzon, PA-C - Last Filed: 03/19/22 11:51> Assessment and Plan: Suspect secondary to UTI worsened by underlying dementia and depression * Plan as above * Continue with treatment for UTI <Alexsandra Garzon, PA-C - Last Filed: 03/19/22 11:51> (3) Acute UTI: Code(s): N39.0 - Urinary tract infection, site not specified <Alexsandra Garzon, PA-C - Last Filed: 03/19/22 11:51> Status: Acute <Alexsandra Garzon, PA-C - Last Filed: 03/19/22 11:51> Assessment and Plan: UA grossly abnormal on presentation and patient with acute mental status change * Continue ceftriaxone * Urine culture pending. Tailor antibiotics accordingly * Braswell catheter placed at presentation <Alexsandra Garzon, PA-C - Last Filed: 03/19/22 11:51> (4) A-fib: Qualifiers: Atrial fibrillation type: unspecified Qualified Code(s): I48.91 - Unspecified atrial fibrillation <Alexsandraazeb Larosebrittany, PA-C - Last Filed: 03/19/22 11:51> Code(s): I48.91 - Unspecified atrial fibrillation <Alexsandra Kimberlee Laroseac, PA-C - Last Filed: 03/19/22 11:51> Status: Acute <Alexsandra Garzon PA-C - Last Filed: 03/19/22 11:51> Assessment and Plan: Rate is controlled * Continue Eliquis and metoprolol * Discontinue telemetry monitoring <Alexsandra Garzon PA-C - Last Filed: 03/19/22 11:51> (5) Type 2 diabetes mellitus with hyperglycemia: Qualifiers: Diabetes mellitus custodial insulin use: without custodial use Qualified Code(s): E11.65 - Type 2 diabetes mellitus with hyperglycemia <Alexsandra Garzon, PA-C - Last Filed: 03/19/22 11:51> Code(s): E11.65 - Type 2 diabetes mellitus with hyperglycemia <Alexsandra Garzon, PA-C - Last Filed: 03/19/22 11:51> Status: Acute <Alexsandra Garzon PA-C - Last Filed: 03/19/22 11:51> Assessment and Plan: A1c is 6.4. Blood sugars are well controlled. * Initiate Accu-Cheks, sliding scale insulin, hypoglycemic protocol * Continue home Lantus <Alexsandra Garzon, PA-C - Last Filed: 03/19/22 11:51> (6) Benign essential hypertension: Code(s): I10 - Essential (primary) hypertension <Alexsandra Garzon, PA-C - Last Filed: 03/19/22 11:51> Status: Chronic <Alexsandra Garzon PA-C - Last Filed: 03/19/22 11:51> Assessment and Plan: Blood pressure reviewed and has been well controlled. Last BP 124/71 * Continue antihypertensives * Monitor BP trends <Alexsandra Garzon, PA-C - Last Filed: 03/19/22 11:51> (7) Anemia: Code(s): D64.9 - Anemia, unspecified <Alexsandra Garzon, PA-C - Last Filed: 03/19/22 11:51> Status: Acute <Alexsandra Garzon, PA-C - Last Filed: 03/19/22 11:51> Assessment and Plan: Hemoglobin
--- NOTE | 2022-03-19 10:42 | PM.IMPN ---
Progress Note: A&P Assessment and Plan (1) Altered mental status, unspecified: Code(s): R41.82 - Altered mental status, unspecified <Alexsandra Garzon, PA-C - Last Filed: 03/19/22 11:51> Status: Acute <Alexsandra Garzon PA-C - Last Filed: 03/19/22 11:51> Assessment and Plan: Patient is A&Ox1 today. Head CT with no acute findings Brain MRI pending Appreciate Neurology consultation Urine toxicology screen is pending Ammonia within normal limits. TSH, B12, folate checked earlier this month and noncontributory to symptoms <Alexsandra Garzon, PA-C - Last Filed: 03/19/22 11:51> (2) Acute metabolic encephalopathy: Code(s): G93.41 - Metabolic encephalopathy <Alexsandra Garzon, PA-C - Last Filed: 03/19/22 11:51> Status: Acute <Alexsandra Garzon, PA-C - Last Filed: 03/19/22 11:51> Assessment and Plan: Suspect secondary to UTI worsened by underlying dementia and depression Plan as above Continue with treatment for UTI <Alexsandra Garzon, PA-C - Last Filed: 03/19/22 11:51> (3) Acute UTI: Code(s): N39.0 - Urinary tract infection, site not specified <Alexsandra Garzon, PA-C - Last Filed: 03/19/22 11:51> Status: Acute <Alexsandra Garzon, PA-C - Last Filed: 03/19/22 11:51> Assessment and Plan: UA grossly abnormal on presentation and patient with acute mental status change Continue ceftriaxone Urine culture pending. Tailor antibiotics accordingly Braswell catheter placed at presentation <Alexsandra Garzon, PA-C - Last Filed: 03/19/22 11:51> (4) A-fib: Qualifiers: Atrial fibrillation type: unspecified Qualified Code(s): I48.91 - Unspecified atrial fibrillation <Alexsandra Larosebrittany, PA-C - Last Filed: 03/19/22 11:51> Code(s): I48.91 - Unspecified atrial fibrillation <Alexsandra Kimberlee Laroseac, PA-C - Last Filed: 03/19/22 11:51> Status: Acute <Alexsandra Garzon PA-C - Last Filed: 03/19/22 11:51> Assessment and Plan: Rate is controlled Continue Eliquis and metoprolol Discontinue telemetry monitoring <Alexsandra Garzon PA-C - Last Filed: 03/19/22 11:51> (5) Type 2 diabetes mellitus with hyperglycemia: Qualifiers: Diabetes mellitus halfway insulin use: without halfway use Qualified Code(s): E11.65 - Type 2 diabetes mellitus with hyperglycemia <Alexsandra Garzon PA-C - Last Filed: 03/19/22 11:51> Code(s): E11.65 - Type 2 diabetes mellitus with hyperglycemia <Alexsandra Larosebrittany PA-C - Last Filed: 03/19/22 11:51> Status: Acute <Alexsandra Garzon PA-C - Last Filed: 03/19/22 11:51> Assessment and Plan: A1c is 6.4. Blood sugars are well controlled. Initiate Accu-Cheks, sliding scale insulin, hypoglycemic protocol Continue home Lantus <Alexsandra Larosebrittany PA-C - Last Filed: 03/19/22 11:51> (6) Benign essential hypertension: Code(s): I10 - Essential (primary) hypertension <Alexsandra Larosebrittany PA-C - Last Filed: 03/19/22 11:51> Status: Chronic <Alexsandra Larosebrittany PA-C - Last Filed: 03/19/22 11:51> Assessment and Plan: Blood pressure reviewed and has been well controlled. Last BP 124/71 Continue antihypertensives Monitor BP trends <Alexsandra Larosebrittany PA-C - Last Filed: 03/19/22 11:51> (7) Anemia: Code(s): D64.9 - Anemia, unspecified <Alexsandra Larosebrittany PA-C - Last Filed: 03/19/22 11:51> Status: Acute <Alexasndra Larosebrittany PA-C - Last Filed: 03/19/22 11:51> Assessment and Plan: Hemoglobin and hematocrit remaining consistent with baseline Continue to monitor H&H <Alexsandra ZapataAsim Lachellebrittany PA-C - Last Filed: 03/19/22 11:51> Subjective Date/time seen: 03/19/22 10:42 <Alexsandra Garzon PA-C - Last Filed: 03/19/22 11:51> Interval history: Date of service: 03/19/2022 Maria R Barrientos is a 76-year-old female with a history of atrial fibrillation on chronic an
[2022-03-19 10:50] LABS: Hypochromasia 1+ (NORMAL); Platelet Estimate Adequate (Adequate); Poikilocytosis 1+ (NORMAL)
[2022-03-19 10:51] LABS: Acanthocytes 2+ (NORMAL)
--- NOTE | 2022-03-19 11:05 | WPDNEURCNPN ---
Assessment and Plan Assessment and plan (1) Acute metabolic encephalopathy: Code(s): G93.41 - Metabolic encephalopathy Status: Acute Plan ongoing dementia brought in for the change in the mental status initial exam is consistent with dementia with acute metabolic encephalopathy in addition to the history of underlying atrial fibrillation evaluation has documented creatinine of 2.20 with GFR only 22 , MRI of the brain with only nonspecific white matter disease involving the pontine as well but no territorial his stroke, she had the MRI on February 23, 2022 in comparison there is no significant change most likely the dealing with a metabolic encephalopathy superimposed on the underlying dementia no new stroke. continue the treatment as such Additional Plan treatment will be Medical as such Consult date: 03/19/22 Time Seen: 10:15 Reason for consult: Change in the mental status HPI: Maria R Barrientos is a 76 year old female admitted to the hospital with the ongoing history of 1. Diabetes mellitus 2. Hypertension 3. Dementia through the emergency very was sent from the long-term. Patient usually is awake alert x2 able to transfer from bed to the wheelchair but not ambulatory but at the time of initial visit to the emergency room she was nonverbal unable to follow any commands. she has been on multiple medication which particularly included trazodone 50 mg at night. In the emergency room it was documented that she has ongoing history of atrial fibrillation along with the hypertension an ongoing history of multiple other medical problems as outlined. 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 History of orthostatic hypotension Hyperlipidemia Kidney stones of the left kidney with multiple lithotripsies Knee pain Left ventricular outflow obstruction echocardiogram May 2020 Mild cognitive impairment Osteoporosis DEXA scan 08/14/2020 Overactive bladder Physical deconditioning Stress incontinence in female Thoracic aortic aneurysm Thyroid nodule (~2014) Urinary incontinence Urinary incontinence Vitamin B12 deficiency Vitamin D deficiency Surgical History Surgical History Status post cataract extraction and insertion of intraocular lens of right eye Status post right breast lumpectomy Family History Family History Sibling Cerebrovascular accident Diabetes mellitus Father Diabetes mellitus Mother Cervical cancer Social History Social History Social History: The patient lives with her 46-year-old daughter. She is . She is a lifelong nonsmoker and does not drink alcohol or use illicit substances. She is retired from the [employer]. Primary care physician: Dr. Carl Maloney code status: Full code Surrogate decision maker: Daughter Smoking status: Never smoker Second hand tobacco smoke exposure: No Alcohol intake: never Substance use: never Substance use type: does not use Gender identity (if verbalized by the patient): Female Spiritual care concerns: No Meds Home Medications and Allergies Home Medications Medication Instructions Recorded Confirmed Type cyanocobalamin (satya
[2022-03-19 11:21] LABS: Procalcitonin 0.1 ng/mL
[2022-03-19 11:54] LABS: Glucose Point of Care 125 mg/dl (65-105)
--- NOTE | 2022-03-19 12:35 | WPDNEURCNPN ---
Consult date: 03/19/22 HPI: Maria R Barrientos is a 76 year old female [facility] Past Medical History Medical History A-fib Benign essential hypertension Body mass index (BMI) 40.0-44.9, adult Cancer of right breast status post radiation and chemotherapy Carotid bruit less than 50% stenosis of right internal carotid artery a on Doppler 07/01/2020 Castlemans disease Chronic kidney disease, stage 3 Chronic UTI Constipation Depression Diabetes type 2, uncontrolled DM type 2 (diabetes mellitus, type 2) (~2018) Elevated BUN Elevated serum homocysteine level Hearing loss of both ears History of orthostatic hypotension Hyperlipidemia Kidney stones of the left kidney with multiple lithotripsies Knee pain Left ventricular outflow obstruction echocardiogram May 2020 Mild cognitive impairment Osteoporosis DEXA scan 08/14/2020 Overactive bladder Physical deconditioning Stress incontinence in female Thoracic aortic aneurysm Thyroid nodule (~2014) Urinary incontinence Urinary incontinence Vitamin B12 deficiency Vitamin D deficiency Surgical History Surgical History Status post cataract extraction and insertion of intraocular lens of right eye Status post right breast lumpectomy Family History Family History Sibling Cerebrovascular accident Diabetes mellitus Father Diabetes mellitus Mother Cervical cancer Social History Social History Social History: The patient lives with her 46-year-old daughter. She is . She is a lifelong nonsmoker and does not drink alcohol or use illicit substances. She is retired from the [employer]. Primary care physician: Dr. Carl Maloney code status: Full code Surrogate decision maker: Daughter Smoking status: Never smoker Second hand tobacco smoke exposure: No Alcohol intake: never Substance use: never Substance use type: does not use Gender identity (if verbalized by the patient): Female Spiritual care concerns: No Meds Home Medications and Allergies Home Medications Medication Instructions Recorded Confirmed Type cyanocobalamin (vitamin B-12) 1,000 mcg PO DAILY 08/18/20 03/18/22 History 1,000 mcg tablet folic acid 800 mcg tablet 0.8 mg PO DAILY 08/18/20 03/18/22 History acetaminophen 325 mg tablet (Mapap 650 mg PO Q4H PRN pain 30 days 04/26/21 03/18/22 Rx (acetaminophen)) sodium bicarbonate 650 mg tablet 650 mg PO BID #180 tabs 07/30/21 03/18/22 Rx Lactobacillus acidoph-pectin 1 cap PO BID 01/11/22 03/18/22 History [Acidophilus-Pectin] estradiol 1 g vaginal 2XW 01/11/22 03/18/22 History ferrous sulfate 324 mg (65 mg 324 mg PO DAILY 01/11/22 03/18/22 History iron) tablet,delayed release ramelteon 8 mg tablet 8 mg PO QHS 01/11/22 03/18/22 History trazodone 50 mg tablet 50 mg PO QHS 01/11/22 03/18/22 History cetirizine 10 mg capsule (Allergy 10 mg PO HS 02/16/22 03/18/22 History Relief (cetirizine)) flash glucose sensor (FreeStyle #1 ea 02/16/22 03/18/22 Rx Robbi 14 Day Sensor) cranberry 500 mg capsule 500 mg PO BID #60 caps 03/02/22 03/18/22 Rx apixaban 5 mg tablet (Eliquis) 5 mg PO BID #180 tabs 03/12/22 03/18/22 Rx bumetanide 0.5 mg tablet 0.5 mg PO DAILY #90 tabs 03/12/22 03/18/22 Rx hydralazine 25 mg tablet 25 mg PO TID #270 tabs 03/12/22 03/18/22 Rx icosapent ethyl 1 gram capsule 2 g PO BID #360 caps 03/12/22 03/18/22 Rx (Vascepa) insulin aspart U-100 100 unit/mL 1 sliding scale dose subcut 03/12/22 03/18/22 Rx (3 mL) subcutaneous pen (Novolog USEASDIRECTD #30 mL Flexpen U-100 Insulin aspart) insulin glargine 100 unit/mL (3 15 unit (0.15 mL) subcut QAM 90 03/12/22 03/18/22 Rx mL) subcutaneous pen (Basaglar days #15 mL KwikPen U-100 Insulin) metoprolol succinate 10
[2022-03-19] MEDS: hydrALAZINE HCL 25 MG TABLET PO ×2 (13:31→20:09)
[2022-03-19 16:21] LABS: Glucose Point of Care 138 mg/dl (65-105)
[2022-03-19] MEDS: DOCUSATE SODIUM 100 MG CAPSULE PO (17:36)
[2022-03-19 18:34] LABS: IFOB Positive Control Positive; Immunochemical Fecal Occult Bl Positive (N)
[2022-03-19 20:46] LABS: Glucose Point of Care 119 mg/dl (65-105)
[2022-03-20] MEDS: LACTATED RINGERS 1,000 ML 75 ML IV CONT ×2 (00:02→13:35)
[2022-03-20] MEDS: CEFEPIME 0.5 GM in DEXTROSE 5% IN WATER 50 ML IVPB (00:03)
[2022-03-20 05:19] VITALS: O2SAT 93
[2022-03-20 05:39] LABS: Hematocrit 34.3 % (37.0-47.0); Hemoglobin 10.1 g/dL (12.0-15.0); Mean Corpuscular HGB Conc 29.4 g/dl (32-36); Mean Corpuscular Hemoglobin 25.4 pg (26-34); Mean Corpuscular Volume 86.4 fl (80-100); Mean Platelet Volume 10.6 fl (7.4-10.4); Platelet Count Result 190 k/mm3 (150-375); Red Blood Count 3.97 M/mm3 (4.2-5.4); Red Cell Distribution Width 16.8 % (11.5-14.5); White Blood Count 6.2 K/mm3 (4.5-10.0)
[2022-03-20] MEDS: hydrALAZINE HCL 25 MG TABLET PO ×3 (06:09→20:29)
[2022-03-20 06:43] LABS: Anion Gap 6 mmol/L (8-16); Blood Urea Nitrogen 39 mg/dL (7-17); Calcium 10.2 mg/dL (8.4-10.2); Carbon Dioxide 25 mmol/L (22-30); Chloride 108 mmol/L (98-107); Estimated CRCL calculation 24 ml/min; Estimated Glomerular Filt Rate 22; Glucose 107 mg/dL (65-110); Potassium 3.9 mmol/L (3.4-5.0); Sodium 139 mmol/L (137-145)
[2022-03-20 07:00] VITALS: BP 138/90; PULSE 91; RESP 20; TEMP 36.6; O2SAT 92
[2022-03-20 07:48] LABS: Glucose Point of Care 113 mg/dl (65-105)
--- NOTE | 2022-03-20 08:25 | WPDPN ---
Progress Note: A&P Assessment and Plan (1) Altered mental status, unspecified: Code(s): R41.82 - Altered mental status, unspecified Status: Acute (2) Acute metabolic encephalopathy: Code(s): G93.41 - Metabolic encephalopathy Status: Acute (3) Urinary tract infection: Code(s): N39.0 - Urinary tract infection, site not specified Status: Acute Additional Plan (1) Altered mental status, unspecified: ?Code(s): R41.82 - Altered mental status, unspecified ?Status:?Acute ?Assessment and Plan: Patient is A&Ox1 today. Head CT with no acute findings Brain MRI no acute findings Neurology consultation-no significant change most likely the dealing with a metabolic encephalopathy superimposed on the underlying dementia no new stroke Urine toxicology screen is pending Ammonia within normal limits.? TSH, B12, folate checked earlier this month and noncontributory to symptoms (2) Acute metabolic encephalopathy: ?Code(s): G93.41 - Metabolic encephalopathy ?Status:?Acute ?Assessment and Plan: Suspect secondary to UTI worsened by underlying dementia and depression Plan as above Continue with treatment for UTI (3) Acute UTI: ?Code(s): N39.0 - Urinary tract infection, site not specified ?Status:?Acute ?Assessment and Plan: UA grossly abnormal on presentation and patient with acute mental status change Continue ceftriaxone Urine culture with Pseudomonas aeruginosa Braswell catheter placed at presentation Contniue Maxipime (4) A-fib: ?Qualifiers: ?Atrial fibrillation type:?unspecified? 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 Qualified Code(s):?E11.65 - Type 2 diabetes mellitus with hyperglycemia ?Code(s): E11.65 - Type 2 diabetes mellitus with hyperglycemia ?Status:?Acute ?Assessment and Plan: A1c is 6.4.? Blood sugars are well controlled. Initiate Accu-Cheks, sliding scale insulin, hypoglycemic protocol Continue home Lantus (6) Benign essential hypertension: ?Code(s): I10 - Essential (primary) hypertension ?Status:?Chronic ?Assessment and Plan: Blood pressure reviewed and has been well controlled.? Last BP 124/71 Continue antihypertensives Monitor BP trends (7) Anemia: ?Code(s): D64.9 - Anemia, unspecified ?Status:?Acute ?Assessment and Plan: Hemoglobin and hematocrit remaining consistent with baseline Continue to monitor H&H Time Spent With Patient Time with patient: 25 - 35 minutes Subjective Date/time seen: 03/20/22 08:25 Interval history: patient remains confused she is only alert to self only. Unsure if this baseline. she is in no obvious distress at this. Review of Systems Review of Systems: ROS unobtainable: Yes unobtainable due to mental status Exam Narrative: General: Pleasant, no obvious distress noted Alert to self only HEENT: PERRLA, Mucous Membranes Moist and [place], Nares Patent, Sclera Clear Neck: JVD, Supple Pulmonary: Clear to Auscultation, Normal Air Movement Cardiovascular: No Murmurs, Gallops, or Rubs, Regular Rhythm, Regular Rate Abdominal: Abdomen Soft, Non-Distended, Normal Bowel Sounds Extremities: Normal Pulses Integumentary: No Abnormalities Psychological: confused Objective Data Vital Signs Vital Signs: Vital Signs - 24 hr 03/19/22 08:27 03/19/22 13:59 03/19/22 14:00 Temperature 97.1 F L Pulse Rate 93 110 H Respiratory Rate 18 Blood Pressure 148/88 H Pulse Oximetry 96 95 Oxygen Delivery Nasal Cannula Oxygen Flow Rate 2 03/19/22 22:00 03/20/22 05:19 03/20
[2022-03-20] MEDS: METOPROLOL SUCCINATE EXT REL 100 MG TABCR PO (08:31)
[2022-03-20] MEDS: APIXABAN 5 MG TABLET PO ×2 (08:31→16:49)
[2022-03-20 11:47] LABS: Glucose Point of Care 127 mg/dl (65-105)
--- NOTE | 2022-03-20 12:39 | WPDNEUROPN ---
Progress Note: A&P Assessment and Plan (1) Acute metabolic encephalopathy: Code(s): G93.41 - Metabolic encephalopathy Status: Acute Plan patient definitely better compared to the initial examination more awake more alert more communicative obviously she has difficulties in walking because of the significant edema of both lower extremities neurologically she is stable with negative MRI and treatment will be continued as such except the medical Additional Plan as per the medical physician no further neurological intervention Time Spent With Patient Time with patient: 15 - 25 minutes ( stable and improved treatment continues as such) Subjective Date/time seen: 03/20/22 12:39 Interval history: 76 years old admitted to the hospital for the complaints of change in the mental status admitted with the diagnosis of metabolic encephalopathy initially seen on March 18, 2022 also with underlying dementia in addition to the history of atrial fibrillation. MRI of the brain documented nonspecific white matter disease involving the sangeeta as well without any significant change this is a follow-up note Review of Systems Review of Systems: All systems reviewed & are unremarkable except as noted in HPI and below Exam Narrative: today she is awake alert cooperative declined upwards and eating her lunch, his speech is not dysphasic not dysarthric not dysphonic offered the lunch to the physician, pupils round regular reactive to light equally, extraocular movements are full with no nystagmus, facial sensations intact, face symmetrical, tongue in the oral cavity with no fasciculation and motor examination reveals her to have no drift of 1 or other site but generally weak in upper extremities with strength of 4/5 reflexes that is deep tendon reflexes are sluggish in both upper extremities. The motor examination of lower extremities is abnormal because of decreased strength, and edema of both lower extremities Const: General: cooperative, comfortable, no acute distress, well developed, alert and awake Nutritional Appearance: obese Orientation/consciousness: oriented to person and oriented to place HENMT: Head: normal to inspection and normocephalic Ears: hearing grossly normal bilaterally General nose exam: Normal external nose present Face and sinus: normal facial exam Mouth: Yes Normal oral and palatal mucosa present Eyes: General: appearance normal, both eyes and all related structures Visual Flores: normal visual flores by confrontation Alignment and Position: alignment normal Periorbital: periorbital findings normal Eyelids: eyelids normal Conjunctivae: conjunctivae normal Sclera: sclerae normal Cornea: corneas normal EOM: EOMs intact bilaterally Neck: Neck: normal visual inspection and full ROM Resp: Effort & Inspection: normal respiratory effort and able to speak in complete sentences Auscultation: clear to auscultation bilaterally Cardio: Rate: regular rate Rhythm: regular rhythm Skin: General skin exam: normal color and no rashes or lesions noted Trauma: no lacerations or abrasions Nails: normal Neuro: General: oriented to person, oriented to place, no meningeal signs and CN's II-XI intact bilaterally Cranial nerves: Yes CN's II-XII intact bilaterally Cognition (Neuro): normal cognition and abnormal cognition ( intermittent) Speech: normal speech Gait exam (Neuro): Unable to assess gait Motor exam (neuro): Pronator motor function not present and No tremor noted Sensory Exam: Sensory deficit (Neuro) Deep tendon reflexes (DTR's): Right triceps reflex intensity grade: 1+, Left triceps reflex intensity grade: 1+, Rt Biceps (C5, C6): 1+, Left biceps reflex intensity grade: 1+, Right brachioradialis reflex intensity grade: 1+, Left brachioradialis reflex intensity grade: 1+, Right patellar reflex intensity grade: 0, Left patellar reflex intensity grade: 0, Right ankle reflex intensity grade: 0 and Left ankle reflex intensity grade:
[2022-03-20 15:22] VITALS: BP 152/98; PULSE 75; RESP 18; TEMP 36.5; O2SAT 91
[2022-03-20 16:34] LABS: Glucose Point of Care 133 mg/dl (65-105)
[2022-03-20] MEDS: DOCUSATE SODIUM 100 MG CAPSULE PO (16:51)
[2022-03-20 19:23] VITALS: O2SAT 93
[2022-03-20 21:23] VITALS: BP 161/94; PULSE 75; RESP 20; TEMP 36.6; O2SAT 90
[2022-03-20 21:36] LABS: Glucose Point of Care 145 mg/dl (65-105)
[2022-03-21] VITALS (7 sets, daily range): BP systolic 147–162; BP diastolic 84–120; PULSE 70–91; RESP 14–16; TEMP 36.3–36.5; O2SAT 92–98
[2022-03-21] MEDS: CEFEPIME 0.5 GM in DEXTROSE 5% IN WATER 50 ML IVPB ×2 (00:37→23:30)
[2022-03-21 05:23] LABS: Hematocrit 35.5 % (37.0-47.0); Hemoglobin 10.1 g/dL (12.0-15.0); Mean Corpuscular HGB Conc 28.5 g/dl (32-36); Mean Corpuscular Hemoglobin 25.4 pg (26-34); Mean Corpuscular Volume 89.4 fl (80-100); Mean Platelet Volume 11.2 fl (7.4-10.4); Platelet Count Result 184 k/mm3 (150-375); Red Blood Count 3.97 M/mm3 (4.2-5.4); Red Cell Distribution Width 17.2 % (11.5-14.5); White Blood Count 6.2 K/mm3 (4.5-10.0)
[2022-03-21 05:32] LABS: Anion Gap 7 mmol/L (8-16); Blood Urea Nitrogen 36 mg/dL (7-17); Calcium 10.1 mg/dL (8.4-10.2); Carbon Dioxide 27 mmol/L (22-30); Chloride 106 mmol/L (98-107); Estimated CRCL calculation 25 ml/min; Estimated Glomerular Filt Rate 23; Glucose 138 mg/dL (65-110); Potassium 3.9 mmol/L (3.4-5.0); Sodium 140 mmol/L (137-145)
[2022-03-21] MEDS: hydrALAZINE HCL 25 MG TABLET PO ×3 (06:02→20:27)
[2022-03-21] MEDS: LACTATED RINGERS 1,000 ML 75 ML IV CONT (06:21)
[2022-03-21] MEDS: METOPROLOL SUCCINATE EXT REL 100 MG TABCR PO (06:40)
[2022-03-21] MEDS: METOPROLOL TARTRATE INJ 5 MG/5 ML VIAL IV PUSH (06:46)
[2022-03-21 08:24] LABS: Glucose Point of Care 132 mg/dl (65-105)
[2022-03-21] MEDS: APIXABAN 5 MG TABLET PO ×2 (09:21→17:26)
[2022-03-21 11:43] LABS: Glucose Point of Care 113 mg/dl (65-105)
--- NOTE | 2022-03-21 12:15 | P.PNIM_ITS ---
Progress Note: A&P Assessment and Plan (1) Altered mental status, unspecified: Code(s): R41.82 - Altered mental status, unspecified Status: Acute Assessment and Plan: Patient is A&Ox1 today. * Head CT with no acute findings * Brain MRI showed stable moderate nonspecific cerebral white matter disease * Appreciate Neurology consultation * Urine toxicology screen is pending * Ammonia within normal limits. TSH, B12, folate checked earlier this month and noncontributory to symptoms * Mental status has been stable, unchanged. Suspect patient is near baseline. (2) Acute metabolic encephalopathy: Code(s): G93.41 - Metabolic encephalopathy Status: Acute Assessment and Plan: Suspect secondary to UTI worsened by underlying dementia and depression * Plan as above * Continue with treatment for UTI (3) Acute UTI: Code(s): N39.0 - Urinary tract infection, site not specified Status: Acute Assessment and Plan: UA grossly abnormal on presentation and patient with acute mental status change * Urine culture with growth of >100k Pseudomonas aeruginosa. * Susceptibility report pending * Continue Cefepime * Continue Braswell catheter (4) A-fib: Qualifiers: Atrial fibrillation type: unspecified Qualified Code(s): I48.91 - Unspecified atrial fibrillation Code(s): I48.91 - Unspecified atrial fibrillation Status: Acute Assessment and Plan: Rate is controlled * Continue Eliquis and metoprolol (5) Type 2 diabetes mellitus with hyperglycemia: Qualifiers: Diabetes mellitus nursing home insulin use: without long term care phlebotomist use Qualified Code(s): E11.65 - Type 2 diabetes mellitus with hyperglycemia Code(s): E11.65 - Type 2 diabetes mellitus with hyperglycemia Status: Acute Assessment and Plan: A1c is 6.4. Blood sugars are well controlled. * Initiate Accu-Cheks, sliding scale insulin, hypoglycemic protocol * Continue home Lantus (6) Benign essential hypertension: Code(s): I10 - Essential (primary) hypertension Status: Chronic Assessment and Plan: Blood pressure reviewed and has been generally well controlled. * Continue antihypertensives * Monitor BP trends (7) Anemia: Code(s): D64.9 - Anemia, unspecified Status: Acute Assessment and Plan: Hemoglobin and hematocrit remaining consistent with baseline * Continue to monitor H&H Subjective Date/time seen: 03/21/22 12:15 Interval history: Date of service: 03/21/2022 Maria R Barrientos is a 76-year-old female with a history of atrial fibrillation on chronic anticoagulation, hypertension, depression, type 2 diabetes mellitus, dementia, and several recent admissions due to altered mental status who is seen in follow-up for UTI and altered mental status. Patient states she is not bad today. Not able to contribute to any additional history. She did not eat her breakfast. Review of Systems Review of Systems: ROS unobtainable: Yes unobtainable due to mental status Exam Narrative: General: frail, chronically ill-appearing 76 year-old female, sitting up in bed, comfortable, NARD Neuro: awake, alert, oriented to self only, follows simple commands, no focal neurologic deficits noted HEENMT: normocephalic, atraumatic, EOMI, sclerae anicteric Respiratory: clear to auscultation bilaterally, nonlabored breathing Cardio: regular rate, regular rhythm with S1-S2 Abdomen: pr
--- NOTE | 2022-03-21 12:15 | PM.IMPN ---
Progress Note: A&P Assessment and Plan (1) Altered mental status, unspecified: Code(s): R41.82 - Altered mental status, unspecified Status: Acute Assessment and Plan: Patient is A&Ox1 today. Head CT with no acute findings Brain MRI showed stable moderate nonspecific cerebral white matter disease Appreciate Neurology consultation Urine toxicology screen is pending Ammonia within normal limits. TSH, B12, folate checked earlier this month and noncontributory to symptoms Mental status has been stable, unchanged. Suspect patient is near baseline. (2) Acute metabolic encephalopathy: Code(s): G93.41 - Metabolic encephalopathy Status: Acute Assessment and Plan: Suspect secondary to UTI worsened by underlying dementia and depression Plan as above Continue with treatment for UTI (3) Acute UTI: Code(s): N39.0 - Urinary tract infection, site not specified Status: Acute Assessment and Plan: UA grossly abnormal on presentation and patient with acute mental status change Urine culture with growth of >100k Pseudomonas aeruginosa. 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 Blood sugars are well controlled. Initiate Accu-Cheks, sliding scale insulin, hypoglycemic protocol Continue home Lantus (6) Benign essential hypertension: Code(s): I10 - Essential (primary) hypertension Status: Chronic Assessment and Plan: Blood pressure reviewed and has been generally well controlled. Continue antihypertensives Monitor BP trends (7) Anemia: Code(s): D64.9 - Anemia, unspecified Status: Acute Assessment and Plan: Hemoglobin and hematocrit remaining consistent with baseline Continue to monitor H&H Subjective Date/time seen: 03/21/22 12:15 Interval history: Date of service: 03/21/2022 Maria R Barrientos is a 76-year-old female with a history of atrial fibrillation on chronic anticoagulation, hypertension, depression, type 2 diabetes mellitus, dementia, and several recent admissions due to altered mental status who is seen in follow-up for UTI and altered mental status. Patient states she is not bad today. Not able to contribute to any additional history. She did not eat her breakfast. Review of Systems Review of Systems: ROS unobtainable: Yes unobtainable due to mental status Exam Narrative: General: frail, chronically ill-appearing 76 year-old female, sitting up in bed, comfortable, NARD Neuro: awake, alert, oriented to self only, follows simple commands, no focal neurologic deficits noted HEENMT: normocephalic, atraumatic, EOMI, sclerae anicteric Respiratory: clear to auscultation bilaterally, nonlabored breathing Cardio: regular rate, regular rhythm with S1-S2 Abdomen: protuberant, normoactive bowel sounds, soft, nontender to palpation : Braswell catheter patent and draining Extremities: no edema, erythema, or tenderness to palpation, DP pulses 2+ bilaterally Skin: no rashes or lesions, warm and dry Psych: flat affect, judgment and insight poor Objective Data Vital Signs Vital Signs: Vital Signs - 24 hr 03/20/22 15:22 03/20/22 19:23 03/20/22 21:23 Temperature 97.7 F 97.8 F Pulse Rate 75 75 Respiratory Rate 18 20 Blood Pressure 152
[2022-03-21 16:38] LABS: Glucose Point of Care 105 mg/dl (65-105)
[2022-03-21 20:55] LABS: Glucose Point of Care 168 mg/dl (65-105)
[2022-03-22 04:53] LABS: Hematocrit 35.3 % (37.0-47.0); Hemoglobin 10.3 g/dL (12.0-15.0); Mean Corpuscular HGB Conc 29.2 g/dl (32-36); Mean Corpuscular Hemoglobin 25.6 pg (26-34); Mean Corpuscular Volume 87.6 fl (80-100); Mean Platelet Volume 10.4 fl (7.4-10.4); Platelet Count Result 183 k/mm3 (150-375); Red Blood Count 4.03 M/mm3 (4.2-5.4); Red Cell Distribution Width 17.1 % (11.5-14.5); White Blood Count 5.9 K/mm3 (4.5-10.0)
[2022-03-22 05:05] LABS: Anion Gap 4 mmol/L (8-16); Blood Urea Nitrogen 31 mg/dL (7-17); Calcium 10.4 mg/dL (8.4-10.2); Carbon Dioxide 28 mmol/L (22-30); Chloride 107 mmol/L (98-107); Estimated CRCL calculation 27 ml/min; Estimated Glomerular Filt Rate 24; Glucose 131 mg/dL (65-110); Potassium 3.5 mmol/L (3.4-5.0); Sodium 139 mmol/L (137-145)
[2022-03-22] MEDS: hydrALAZINE HCL 25 MG TABLET PO ×3 (05:33→20:11)
[2022-03-22 06:51] VITALS: BP 149/89; PULSE 73; RESP 16; TEMP 36.4; O2SAT 91
[2022-03-22 07:58] LABS: Glucose Point of Care 122 mg/dl (65-105)
[2022-03-22 08:00] VITALS: O2SAT 95
[2022-03-22] MEDS: APIXABAN 5 MG TABLET PO ×2 (08:01→16:46)
[2022-03-22] MEDS: METOPROLOL SUCCINATE EXT REL 100 MG TABCR PO (08:01)
[2022-03-22 08:57] LABS: PCP NEGATIVE ng/mL (<25)
[2022-03-22 11:32] LABS: Glucose Point of Care 177 mg/dl (65-105)
--- NOTE | 2022-03-22 11:50 | PCPTNOTE ---
Attempted PT evaluation, patient refused stating no to all attempts to transfer to chair. Will follow
--- NOTE | 2022-03-22 13:26 | PM.IMPN ---
Progress Note: A&P Assessment and Plan (1) Altered mental status, unspecified: Code(s): R41.82 - Altered mental status, unspecified Status: Acute Assessment and Plan: Patient is A&Ox2 today. Head CT with no acute findings Brain MRI showed stable moderate nonspecific cerebral white matter disease Appreciate Neurology consultation Urine toxicology screen still pending Ammonia within normal limits. TSH, B12, folate checked earlier this month and noncontributory to symptoms Mental status has been stable, unchanged. Suspect patient is near baseline. (2) Acute metabolic encephalopathy: Code(s): G93.41 - Metabolic encephalopathy Status: Acute Assessment and Plan: Suspect secondary to UTI worsened by underlying dementia and depression Plan as above Continue with treatment for UTI (3) Acute UTI: Code(s): N39.0 - Urinary tract infection, site not specified Status: Acute Assessment and Plan: UA grossly abnormal on presentation and patient with acute mental status change Urine culture with growth of >100k Pseudomonas aeruginosa. Continue Cefepime Growth of second organism noted today - >100k Vancomycin resistant enterococcus. Discussed with supervising physician. Recommends initiation of Linezolid 600 mg q12h. Patient with chronic christianson catheter (ongoing for several months) which was changed on presentation in the ED. (4) A-fib: Qualifiers: Atrial fibrillation type: unspecified Qualified Code(s): I48.91 - Unspecified atrial fibrillation Code(s): I48.91 - Unspecified atrial fibrillation Status: Acute Assessment and Plan: Rate is controlled Continue Eliquis and metoprolol (5) Type 2 diabetes mellitus with hyperglycemia: Qualifiers: Diabetes mellitus longterm insulin use: without longterm use Qualified Code(s): E11.65 - Type 2 diabetes mellitus with hyperglycemia Code(s): E11.65 - Type 2 diabetes mellitus with hyperglycemia Status: Acute Assessment and Plan: A1c is 6.4. Blood sugars are well controlled. Continue Accu-Cheks, sliding scale insulin, hypoglycemic protocol Continue home Lantus (6) Benign essential hypertension: Code(s): I10 - Essential (primary) hypertension Status: Chronic Assessment and Plan: Blood pressure reviewed and has been generally well controlled. Continue antihypertensives Monitor BP trends (7) Anemia: Code(s): D64.9 - Anemia, unspecified Status: Acute Assessment and Plan: Hemoglobin and hematocrit remaining consistent with baseline Continue to monitor H&H Subjective Date/time seen: 03/22/22 13:26 Interval history: Date of service: 03/22/2022 Maria R Barrientos is a 76-year-old female with a history of atrial fibrillation on chronic anticoagulation, hypertension, depression, type 2 diabetes mellitus, dementia, and several recent admissions due to altered mental status who is seen in follow-up for UTI and altered mental status. She states she feels ?so-so? today. She is not able to provide any further history. Her IV stopped working and was not able to be replaced by staff. Patient repeatedly stated she did not want an IV. [facility] has been called to replace IV and patient agreeable. Aware IV is necessary for treatment. Review of Systems Review of Systems: All systems reviewed & are unremarkable except as noted in HPI and below Exam Narrative: General: frail, chronically ill-appearing 76 year-old female, sitting up in bed, comfortable, NARD Neuro: awake, alert, oriented to self, aware she is at a hospital but stats [facility] , cannot state year, follows simple commands, no focal neurologic deficits noted HEENMT: normocephalic, atraumatic, EOMI, sclerae anicteric Respiratory: clear to auscultation bilaterally, nonlabored breathing Cardio: regular rate, regular rhythm with S1-S2 Abd
[2022-03-22 13:46] VITALS: O2SAT 95
[2022-03-22 14:00] VITALS: BP 151/86; PULSE 89; RESP 16; TEMP 36.6; O2SAT 92
[2022-03-22] MEDS: LIDOCAINE HCL 1% LOCAL INJ 2 ML AMPUL 5 ML INFILTRATE (14:44)
[2022-03-22 16:39] LABS: Glucose Point of Care 220 mg/dl (65-105)
[2022-03-22 19:32] VITALS: BP 141/78; PULSE 95; RESP 20; TEMP 36.3; O2SAT 96
[2022-03-22 20:00] VITALS: O2SAT 96
[2022-03-22] MEDS: LINEZOLID 600 MG TABLET PO (20:11)
[2022-03-22 22:12] LABS: Glucose Point of Care 217 mg/dl (65-105)
[2022-03-23] VITALS (7 sets, daily range): BP systolic 122–161; BP diastolic 72–92; PULSE 60–98; RESP 18–20; TEMP 36.5–36.9; O2SAT 92–95
[2022-03-23] MEDS: CEFEPIME 0.5 GM in DEXTROSE 5% IN WATER 50 ML IVPB ×2 (00:12→23:27)
[2022-03-23 05:37] LABS: Hematocrit 31.7 % (37.0-47.0); Hemoglobin 9.4 g/dL (12.0-15.0); Mean Corpuscular HGB Conc 29.7 g/dl (32-36); Mean Corpuscular Hemoglobin 25.7 pg (26-34); Mean Corpuscular Volume 86.6 fl (80-100); Mean Platelet Volume 11.3 fl (7.4-10.4); Platelet Count Result 175 k/mm3 (150-375); Red Blood Count 3.66 M/mm3 (4.2-5.4); Red Cell Distribution Width 17.2 % (11.5-14.5); White Blood Count 4.8 K/mm3 (4.5-10.0)
[2022-03-23] MEDS: hydrALAZINE HCL 25 MG TABLET PO ×3 (05:48→21:15)
[2022-03-23] MEDS: SALINE LOCK FLUSH 10 ML IV PUSH ×3 (05:48→21:15)
[2022-03-23 05:50] LABS: Anion Gap 0 mmol/L (8-16); Blood Urea Nitrogen 30 mg/dL (7-17); Calcium 9.7 mg/dL (8.4-10.2); Carbon Dioxide 29 mmol/L (22-30); Chloride 106 mmol/L (98-107); Estimated CRCL calculation 28 ml/min; Estimated Glomerular Filt Rate 26; Glucose 148 mg/dL (65-110); Potassium 3.5 mmol/L (3.4-5.0); Sodium 135 mmol/L (137-145)
[2022-03-23 07:57] LABS: Glucose Point of Care 135 mg/dl (65-105)
[2022-03-23] MEDS: INSULIN GLARGINE (*BKC) 100 UNITS/ML 15 UNITS SUB-Q (08:10)
[2022-03-23] MEDS: METOPROLOL SUCCINATE EXT REL 100 MG TABCR PO (08:11)
[2022-03-23] MEDS: APIXABAN 5 MG TABLET PO ×2 (08:11→17:11)
[2022-03-23 11:39] LABS: Glucose Point of Care 214 mg/dl (65-105)
[2022-03-23] MEDS: INSULIN ASPART (*BKC) 100 UNITS/ML SUB-Q (11:51)
--- NOTE | 2022-03-23 12:40 | P.PNIM_ITS ---
Progress Note: A&P Assessment and Plan (1) Altered mental status, unspecified: Code(s): R41.82 - Altered mental status, unspecified Status: Acute Assessment and Plan: Patient is A&Ox2 today. * Head CT with no acute findings * Brain MRI showed stable moderate nonspecific cerebral white matter disease * Appreciate Neurology consultation * Urine toxicology screen still pending * Ammonia within normal limits. TSH, B12, folate checked earlier this month and noncontributory to symptoms * Mental status has been stable, unchanged. Suspect patient is near baseline. (2) Acute metabolic encephalopathy: Code(s): G93.41 - Metabolic encephalopathy Status: Acute Assessment and Plan: Suspect secondary to UTI worsened by underlying dementia and depression * Plan as above * Continue with treatment for UTI (3) Acute UTI: Code(s): N39.0 - Urinary tract infection, site not specified Status: Acute Assessment and Plan: UA grossly abnormal on presentation and patient with acute mental status change * Urine culture with growth of >100k Pseudomonas aeruginosa. Continue Cefepime * Patient with clinical improvement on Cefepime * On 03/22, culture also revealed >100k VRE. However, patient had improved significantly on anti-pseudomonal therapy and suspect that VRE is contaminant. Linezolid has been discontinued after one dose and will monitor clinically * Patient with chronic christianson catheter (ongoing for several months) which was changed on presentation in the ED. * Consult to urology for recommendations on frequent UTIs in setting of chronic Christianson catheter. Recommendations appreciated. 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 Blood sugars are well controlled. * Continue Accu-Cheks, sliding scale insulin, hypoglycemic protocol * Continue home Lantus (6) Benign essential hypertension: Code(s): I10 - Essential (primary) hypertension Status: Chronic Assessment and Plan: Blood pressure reviewed and has been generally well controlled. * Continue antihypertensives * Monitor BP trends (7) Anemia: Code(s): D64.9 - Anemia, unspecified Status: Acute Assessment and Plan: Hemoglobin and hematocrit remaining consistent with baseline * Continue to monitor H&H Plan Bedside swallow study ordered due to episode of dysphagia. Appreciate ST recommendations. Subjective Date/time seen: 03/23/22 12:40 Interval history: Date of service: 03/23/2022 Maria R Barrientos is a 76-year-old female with a history of atrial fibrillation on chronic anticoagulation, hypertension, depression, type 2 diabetes mellitus, dementia, and several recent admissions due to altered mental status who is seen in follow-up for UTI and altered mental status. She is sitting up eating lunch today. She ate most of her lunch. She did state that she felt like food got stuck when she was eating
--- NOTE | 2022-03-23 12:40 | PM.IMPN ---
Progress Note: A&P Assessment and Plan (1) Altered mental status, unspecified: Code(s): R41.82 - Altered mental status, unspecified Status: Acute Assessment and Plan: Patient is A&Ox2 today. Head CT with no acute findings Brain MRI showed stable moderate nonspecific cerebral white matter disease Appreciate Neurology consultation Urine toxicology screen still pending Ammonia within normal limits. TSH, B12, folate checked earlier this month and noncontributory to symptoms Mental status has been stable, unchanged. Suspect patient is near baseline. (2) Acute metabolic encephalopathy: Code(s): G93.41 - Metabolic encephalopathy Status: Acute Assessment and Plan: Suspect secondary to UTI worsened by underlying dementia and depression Plan as above Continue with treatment for UTI (3) Acute UTI: Code(s): N39.0 - Urinary tract infection, site not specified Status: Acute Assessment and Plan: UA grossly abnormal on presentation and patient with acute mental status change Urine culture with growth of >100k Pseudomonas aeruginosa. Continue Cefepime Patient with clinical improvement on Cefepime On 03/22, culture also revealed >100k VRE. However, patient had improved significantly on anti-pseudomonal therapy and suspect that VRE is contaminant. Linezolid has been discontinued after one dose and will monitor clinically Patient with chronic christianson catheter (ongoing for several months) which was changed on presentation in the ED. Consult to urology for recommendations on frequent UTIs in setting of chronic Christianson catheter. Recommendations appreciated. (4) A-fib: Qualifiers: Atrial fibrillation type: unspecified Qualified Code(s): I48.91 - Unspecified atrial fibrillation Code(s): I48.91 - Unspecified atrial fibrillation Status: Acute Assessment and Plan: Rate is controlled Continue Eliquis and metoprolol (5) Type 2 diabetes mellitus with hyperglycemia: Qualifiers: Diabetes mellitus usp insulin use: without terminal operator use Qualified Code(s): E11.65 - Type 2 diabetes mellitus with hyperglycemia Code(s): E11.65 - Type 2 diabetes mellitus with hyperglycemia Status: Acute Assessment and Plan: A1c is 6.4. Blood sugars are well controlled. Continue Accu-Cheks, sliding scale insulin, hypoglycemic protocol Continue home Lantus (6) Benign essential hypertension: Code(s): I10 - Essential (primary) hypertension Status: Chronic Assessment and Plan: Blood pressure reviewed and has been generally well controlled. Continue antihypertensives Monitor BP trends (7) Anemia: Code(s): D64.9 - Anemia, unspecified Status: Acute Assessment and Plan: Hemoglobin and hematocrit remaining consistent with baseline Continue to monitor H&H Plan Bedside swallow study ordered due to episode of dysphagia. Appreciate ST recommendations. Subjective Date/time seen: 03/23/22 12:40 Interval history: Date of service: 03/23/2022 Maria R Barrientos is a 76-year-old female with a history of atrial fibrillation on chronic anticoagulation, hypertension, depression, type 2 diabetes mellitus, dementia, and several recent admissions due to altered mental status who is seen in follow-up for UTI and altered mental status. She is sitting up eating lunch today. She ate most of her lunch. She did state that she felt like food got stuck when she was eating and needed a minute to let this feeling pass. She did not provide any additional history. Does not answer orientation questions. Review of Systems Review of Systems: All systems reviewed & are unremarkable except as noted in HPI and below Exam Narrative: General: frail, chronically ill-appearing 76 year-old female, sitting up in bed, comfortable, NARD Neuro: awake, alert, does not answer orientation questions, no foca
--- NOTE | 2022-03-23 15:35 | WPDURCON ---
Assessment and Plan Assessment and plan (1) Altered mental status, unspecified: Code(s): R41.82 - Altered mental status, unspecified Status: Acute Assessment and Plan: Improved from admission with treatment of UTI. (2) Urinary tract infection: Code(s): N39.0 - Urinary tract infection, site not specified Status: Acute Assessment and Plan: Culture grew Pseudomonas and VRE, but I suspect the VRE is contamination or colonization as it resulted after the pseudomonas and she is much improved on only cefepime which was not sensitive to VRE. No treatment of VRE needed at this time, I would only recommend treating her for a UTI if she becomes symptomatic. With a chronic christianson her UA will never look normal. (3) Chronic renal insufficiency: Code(s): N18.9 - Chronic kidney disease, unspecified Status: Acute Assessment and Plan: Creatinine is stable. (4) Urge incontinence: Code(s): N39.41 - Urge incontinence Status: Acute Assessment and Plan: Continue indwelling christianson indefinitely with monthly or bi-weekly catheter changes to reduce infections. (5) Chronic UTI: Code(s): N39.0 - Urinary tract infection, site not specified Status: Acute Assessment and Plan: Resume daily Cephalexin after treatment of UTI. I suggest starting U-Jagdish wipes to clean the perineal area catheter tubing to prevent UTI's as well as increasing water intake. CT/Cysto were both normal and not suggestive of anatomic contributors to chronic infection. NO further evaluation needed at this time. Urology Consult Note HPI Date Seen: 03/23/22 Requesting Physician: Alexsandra Garzon PA-C Primary Care Provider: Carl Maloney MD Consult Narrative Narrative: Maria R Barrientos is a 76 year old female who was seen in the ER on 03/18/22 for altered mental status and then treated for UTI/acute metabolic encephalopathy. She is known to our practice as we saw her at her last hospitalization for a UTI/Chronic UTI's earlier this month. She grew E-Coli on her urine culture from 02/16/22 and is a detention patient with chronic UTI's that see's Dr. Miller in the office. She suffers from severe incontinence without awareness which was thought to be contributing to her infections. Since she is immobile and severely incontinent, her daughter and Dr. Miller decided a fpc catheter was an appropriate intervention with monthly changes. The patient is A&O x2 but doesn't offer much if any medical history. Medical history was obtained from Alexsandra Garzon the hospitalist caring for her and her chart. Her repeat culture on 02/22/22 was then negative after treatment of her last UTI. She has grown Pseudomonas Aeruginosa on her culture from 03/18/22 in addition to VRE. She is improved tremendously from a comatose state upon arrival to sitting up in her chair and having a conversation today with A&O x 2, after cefepime. Although Cefepime isn't sensitive for VRE, she as additionally treated with one day of Linezolid which was stopped d/t thinking her VRE infection is just colonization or contamination of her specimen since she has shown so much improvement with Cefepime on board. It is unclear if she drinks an adequate amount of water which is likely contributing to her chronic UTI's, as she is also concurrently on Cephalexin prophylaxis which is being held at this time. Her vitals are stable, she is afebrile, WBC is 4.8, creatinine is 1.90 which is baseline for her and a CT of the abdomen without contrast on 02/22/22 declares normal upper tracts and a normal Cystoscopy in 03/2020. Review of Systems Cardiovascular: Comments: Denies chest pain. Respiratory: Comments: Denies difficulty breathing. Gastrointestinal: Comments: Denies abdominal pain. Genitourinary: Comments: Denies pain or heamturia. [facility] Past Medical History Medical History A-fib Benign e
[2022-03-23 16:20] LABS: Glucose Point of Care 151 mg/dl (65-105)
[2022-03-23] MEDS: polyethylene glycoL 3350 17 GM POWD.PACK PO (17:11)
[2022-03-23] MEDS: DOCUSATE SODIUM 100 MG CAPSULE PO (21:15)
[2022-03-23 21:30] LABS: Glucose Point of Care 160 mg/dl (65-105)
[2022-03-24] VITALS (9 sets, daily range): BP systolic 153–171; BP diastolic 80–83; PULSE 70–97; RESP 18–96; TEMP 36.1–36.6; O2SAT 91–95
[2022-03-24] MEDS: SALINE LOCK FLUSH 10 ML IV PUSH ×3 (05:06→21:10)
[2022-03-24] MEDS: hydrALAZINE HCL 25 MG TABLET PO ×2 (05:06→14:52)
[2022-03-24 05:11] LABS: Hemoglobin 9.6 g/dL (12.0-15.0); Mean Corpuscular Hemoglobin 26.2 pg (26-34); Mean Corpuscular Volume 87.4 fl (80-100); Mean Platelet Volume 11.5 fl (7.4-10.4); Platelet Count Result 191 k/mm3 (150-375); Red Blood Count 3.66 M/mm3 (4.2-5.4); Red Cell Distribution Width 17.2 % (11.5-14.5); White Blood Count 5.4 K/mm3 (4.5-10.0)
[2022-03-24 05:24] LABS: Anion Gap 2 mmol/L (8-16); Blood Urea Nitrogen 28 mg/dL (7-17); Calcium 9.5 mg/dL (8.4-10.2); Carbon Dioxide 26 mmol/L (22-30); Chloride 109 mmol/L (98-107); Estimated CRCL calculation 28 ml/min; Estimated Glomerular Filt Rate 26; Glucose 135 mg/dL (65-110); Potassium 3.6 mmol/L (3.4-5.0); Sodium 137 mmol/L (137-145)
[2022-03-24 07:44] LABS: Glucose Point of Care 133 mg/dl (65-105)
[2022-03-24] MEDS: DOCUSATE SODIUM 100 MG CAPSULE PO (08:45)
[2022-03-24] MEDS: METOPROLOL SUCCINATE EXT REL 100 MG TABCR PO (08:45)
[2022-03-24] MEDS: APIXABAN 5 MG TABLET PO ×2 (08:45→17:18)
[2022-03-24] MEDS: polyethylene glycoL 3350 17 GM POWD.PACK PO (08:46)
[2022-03-24] MEDS: INSULIN GLARGINE (*BKC) 100 UNITS/ML 15 UNITS SUB-Q (08:46)
--- NOTE | 2022-03-24 10:21 | PCSTNOTE ---
Therapist attempted Bedside Swallow Evaluation however patient refused all presentations.
--- NOTE | 2022-03-24 11:01 | P.PNIM_ITS ---
Progress Note: A&P Assessment and Plan (1) Altered mental status, unspecified: Code(s): R41.82 - Altered mental status, unspecified Status: Acute Assessment and Plan: Patient is A&Ox2 today. * Head CT with no acute findings * Brain MRI showed stable moderate nonspecific cerebral white matter disease * Appreciate Neurology consultation * Urine toxicology screen still pending * Ammonia within normal limits. TSH, B12, folate checked earlier this month and noncontributory to symptoms * Mental status has been stable, unchanged. Suspect patient is near baseline. (2) Acute metabolic encephalopathy: Code(s): G93.41 - Metabolic encephalopathy Status: Acute Assessment and Plan: Suspect secondary to UTI worsened by underlying dementia and depression * Plan as above * Continue with treatment for UTI (3) Acute UTI: Code(s): N39.0 - Urinary tract infection, site not specified Status: Acute Assessment and Plan: UA grossly abnormal on presentation and patient with acute mental status change * Urine culture with growth of >100k Pseudomonas aeruginosa. Continue Cefepime * Patient with clinical improvement on Cefepime * On 03/22, culture also revealed >100k VRE. However, patient had improved significantly on anti-pseudomonal therapy and suspect that VRE is contaminant. Linezolid has been discontinued after one dose and will monitor clinically * Patient with chronic christianson catheter (ongoing for several months) which was changed on presentation in the ED. * Consult to urology for recommendations on frequent UTIs in setting of chronic Christianson catheter. Recommend treating only if symptomatic. Bi-weekly or monthly catheter changes. * Unfortunately the patient is at high risk for recurrent infections, especially when she is handling her christianson in unsterile manner. (4) A-fib: Qualifiers: Atrial fibrillation type: unspecified Qualified Code(s): I48.91 - Unspecified atrial fibrillation Code(s): I48.91 - Unspecified atrial fibrillation Status: Acute Assessment and Plan: Rate is controlled * Continue Eliquis and metoprolol (5) Type 2 diabetes mellitus with hyperglycemia: Qualifiers: Diabetes mellitus terminal clerk insulin use: without residential use Qualified Code(s): E11.65 - Type 2 diabetes mellitus with hyperglycemia Code(s): E11.65 - Type 2 diabetes mellitus with hyperglycemia Status: Acute Assessment and Plan: A1c is 6.4. Blood sugars are well controlled. * Continue Accu-Cheks, sliding scale insulin, hypoglycemic protocol * Continue home Lantus (6) Benign essential hypertension: Code(s): I10 - Essential (primary) hypertension Status: Chronic Assessment and Plan: Blood pressure reviewed and has been reasonable, somewhat elevated at times * Continue antihypertensives * Monitor BP trends (7) Anemia: Code(s): D64.9 - Anemia, unspecified Status: Acute Assessment and Plan: Hemoglobin and hematocrit remaining consistent with baseline * Continue to monitor H&H Plan Bedside swallow study ordered due to episode of dysphagia 03/23. Appreciate ST recommendations. Subjective Date/time seen: 03/24/22 11:01 Interval history: Date of service: 03/24/2022 Maria Rbrian Barrientos is a 76-year-old female with a history of atrial fibrillation on chronic anticoagulation, hypertension, depression, type 2 diabetes mellitus, dementia, and several recent admissions due to altered mental
--- NOTE | 2022-03-24 11:01 | PM.IMPN ---
Progress Note: A&P Assessment and Plan (1) Altered mental status, unspecified: Code(s): R41.82 - Altered mental status, unspecified Status: Acute Assessment and Plan: Patient is A&Ox2 today. Head CT with no acute findings Brain MRI showed stable moderate nonspecific cerebral white matter disease Appreciate Neurology consultation Urine toxicology screen still pending Ammonia within normal limits. TSH, B12, folate checked earlier this month and noncontributory to symptoms Mental status has been stable, unchanged. Suspect patient is near baseline. (2) Acute metabolic encephalopathy: Code(s): G93.41 - Metabolic encephalopathy Status: Acute Assessment and Plan: Suspect secondary to UTI worsened by underlying dementia and depression Plan as above Continue with treatment for UTI (3) Acute UTI: Code(s): N39.0 - Urinary tract infection, site not specified Status: Acute Assessment and Plan: UA grossly abnormal on presentation and patient with acute mental status change Urine culture with growth of >100k Pseudomonas aeruginosa. Continue Cefepime Patient with clinical improvement on Cefepime On 03/22, culture also revealed >100k VRE. However, patient had improved significantly on anti-pseudomonal therapy and suspect that VRE is contaminant. Linezolid has been discontinued after one dose and will monitor clinically Patient with chronic christianson catheter (ongoing for several months) which was changed on presentation in the ED. Consult to urology for recommendations on frequent UTIs in setting of chronic Christianson catheter. Recommend treating only if symptomatic. Bi-weekly or monthly catheter changes. Unfortunately the patient is at high risk for recurrent infections, especially when she is handling her christianson in unsterile manner. (4) A-fib: Qualifiers: Atrial fibrillation type: unspecified Qualified Code(s): I48.91 - Unspecified atrial fibrillation Code(s): I48.91 - Unspecified atrial fibrillation Status: Acute Assessment and Plan: Rate is controlled Continue Eliquis and metoprolol (5) Type 2 diabetes mellitus with hyperglycemia: Qualifiers: Diabetes mellitus watermaster insulin use: without watermaster use Qualified Code(s): E11.65 - Type 2 diabetes mellitus with hyperglycemia Code(s): E11.65 - Type 2 diabetes mellitus with hyperglycemia Status: Acute Assessment and Plan: A1c is 6.4. Blood sugars are well controlled. Continue Accu-Cheks, sliding scale insulin, hypoglycemic protocol Continue home Lantus (6) Benign essential hypertension: Code(s): I10 - Essential (primary) hypertension Status: Chronic Assessment and Plan: Blood pressure reviewed and has been reasonable, somewhat elevated at times Continue antihypertensives Monitor BP trends (7) Anemia: Code(s): D64.9 - Anemia, unspecified Status: Acute Assessment and Plan: Hemoglobin and hematocrit remaining consistent with baseline Continue to monitor H&H Plan Bedside swallow study ordered due to episode of dysphagia 03/23. Appreciate ST recommendations. Subjective Date/time seen: 03/24/22 11:01 Interval history: Date of service: 03/24/2022 Maria R Barrientos is a 76-year-old female with a history of atrial fibrillation on chronic anticoagulation, hypertension, depression, type 2 diabetes mellitus, dementia, and several recent admissions due to altered mental status who is seen in follow-up for UTI and altered mental status. She is more agitated today. She was tugging at her Christianson catheter when I entered the room. I informed her not to do this and she stated ?is there anything else I am not allowed to do. I then asked how she was feeling and she stated ?like I want to hit you in the face. Myself and nursing staff made attempts to get the christianson bag and tubing back in place and she tugged it aw
[2022-03-24 11:35] LABS: Glucose Point of Care 193 mg/dl (65-105)
[2022-03-24 16:28] LABS: Glucose Point of Care 131 mg/dl (65-105)
[2022-03-24 21:43] LABS: Glucose Point of Care 180 mg/dl (65-105)
--- NOTE | 2022-03-24 23:09 | PC.NURSE ---
ATTEMPTED TWICE TO GIVE PT NIGHTTIME MEDS. SHE REFUSED BOTH TIMES. OFFERED TO GIVE MEDS WITH APPLESAUCE, PUDDING, OR ICE CREAM WITH NO SUCCESS. ANY REQUEST I MADE OF THE PT SHE STATED NO .
--- NOTE | 2022-03-25 00:06 | PC.NURSE ---
ATTEMPTED TO GIVE PT 0000 IV ABX. WHEN TRYING TO ACCESS THE PT MIDLINE IN LEFT ARM PT SLAPPED AT ME SCREAMING NO . PT BEGAN TRYING TO GRAB ME AND HIT ME ANYTIME I ATTEMPTED TO TOUCH HER. REFUSING ALL MEDS AT THIS TIME.
--- NOTE | 2022-03-25 04:21 | PC.NURSE ---
PT HAS BEEN INCONTINENT OF STOOL AND HAS BEGUN THROWING FECES ACROSS THE ROOM. PICKED UP 4 HARDENED PIECES OF FECES FROM MULTIPLE LOCATIONS THROUGHOUT THE ROOM. PT CONTINUES TO DIG IN RECTUM TO REMOVE FECES AND IS SMEARING IT ALL OVER THE BEDDING. SHE IS ALSO PLAYING WITH THE FECES HOLDING IT IN HER HANDS. PT HAS ALSO RIPPED APART THE CLAMP ON HER ROBB CATHETER AND CONTINUES TO PULL AT TUBING ATTEMPTING TO REMOVE IT COMPLETELY. SHE IS AGITATED AND COMBATIVE WHEN STAFF IS ATTEMPTING TO CLEAN HER UP AND CONTINUES TO BE RESISTANT TO ANY TYPE OF CARE.
[2022-03-25 05:55] LABS: Hematocrit 34.9 % (37.0-47.0); Hemoglobin 10.5 g/dL (12.0-15.0); Mean Corpuscular HGB Conc 30.1 g/dl (32-36); Mean Corpuscular Hemoglobin 25.7 pg (26-34); Mean Corpuscular Volume 85.3 fl (80-100); Mean Platelet Volume 10.9 fl (7.4-10.4); Platelet Count Result 229 k/mm3 (150-375); Red Blood Count 4.09 M/mm3 (4.2-5.4); Red Cell Distribution Width 17.3 % (11.5-14.5); White Blood Count 5.7 K/mm3 (4.5-10.0)
[2022-03-25] MEDS: SALINE LOCK FLUSH 10 ML IV PUSH ×3 (06:19→20:59)
[2022-03-25 06:20] VITALS: BP 156/90; PULSE 84; RESP 16; TEMP 36.6; O2SAT 93
[2022-03-25 06:21] LABS: Anion Gap 2 mmol/L (8-16); Blood Urea Nitrogen 26 mg/dL (7-17); Calcium 10.2 mg/dL (8.4-10.2); Carbon Dioxide 28 mmol/L (22-30); Chloride 108 mmol/L (98-107); Estimated CRCL calculation 25 ml/min; Estimated Glomerular Filt Rate 23; Glucose 149 mg/dL (65-110); Potassium 3.5 mmol/L (3.4-5.0); Sodium 138 mmol/L (137-145)
[2022-03-25 07:48] LABS: Glucose Point of Care 150 mg/dl (65-105)
--- NOTE | 2022-03-25 09:25 | PCSTNOTE ---
Therapist attempted two times this morning to awaken patient who appeared to be sleeping in order to have patient participate in breakfast. Patient refused both times, first time by stating no and second attempt by stating, uh-uh (for no ). Patient would not open eyes or keep them open if she did briefly open them. Therapist may try again when nursing contacts therapist to say patient is more fully awake.
--- NOTE | 2022-03-25 09:43 | P.PNIM_ITS ---
Progress Note: A&P Assessment and Plan (1) Altered mental status, unspecified: Code(s): R41.82 - Altered mental status, unspecified Status: Acute Assessment and Plan: Patient is A&Ox2 today. * Head CT with no acute findings * Brain MRI showed stable moderate nonspecific cerebral white matter disease * Appreciate Neurology consultation * Urine toxicology screen still pending * Ammonia within normal limits. TSH, B12, folate checked earlier this month and noncontributory to symptoms * Mental status has been stable, unchanged. Suspect patient is near baseline. (2) Acute metabolic encephalopathy: Code(s): G93.41 - Metabolic encephalopathy Status: Acute Assessment and Plan: Suspect secondary to UTI worsened by underlying dementia and depression * Plan as above * Continue with treatment for UTI (3) Acute UTI: Code(s): N39.0 - Urinary tract infection, site not specified Status: Acute Assessment and Plan: UA grossly abnormal on presentation and patient with acute mental status change * Urine culture with growth of >100k Pseudomonas aeruginosa. Continue Cefepime * Patient with clinical improvement on Cefepime * On 03/22, culture also revealed >100k VRE. However, patient had improved significantly on anti-pseudomonal therapy and suspect that VRE is contaminant. Linezolid has been discontinued after one dose and will monitor clinically * Patient with chronic christianson catheter (ongoing for several months) which was changed on presentation in the ED. * Consult to urology for recommendations on frequent UTIs in setting of chronic Christianson catheter. Recommend treating only if symptomatic. Bi-weekly or monthly catheter changes. * Unfortunately the patient is at high risk for recurrent infections, especially when she is handling her christianson in unsterile manner. (4) A-fib: Qualifiers: Atrial fibrillation type: unspecified Qualified Code(s): I48.91 - Unspecified atrial fibrillation Code(s): I48.91 - Unspecified atrial fibrillation Status: Acute Assessment and Plan: Rate is controlled * Continue Eliquis and metoprolol (5) Type 2 diabetes mellitus with hyperglycemia: Qualifiers: Diabetes mellitus terminal supervisor insulin use: without residential use Qualified Code(s): E11.65 - Type 2 diabetes mellitus with hyperglycemia Code(s): E11.65 - Type 2 diabetes mellitus with hyperglycemia Status: Acute Assessment and Plan: A1c is 6.4. Blood sugars are well controlled. * Continue Accu-Cheks, sliding scale insulin, hypoglycemic protocol * Continue home Lantus (6) Benign essential hypertension: Code(s): I10 - Essential (primary) hypertension Status: Chronic Assessment and Plan: Blood pressure reviewed and has been reasonable, somewhat elevated at times * Continue antihypertensives * Monitor BP trends (7) Anemia: Code(s): D64.9 - Anemia, unspecified Status: Acute Assessment and Plan: Hemoglobin and hematocrit remaining consistent with baseline * Continue to monitor H&H Plan Bedside swallow study ordered due to episode of dysphagia 03/23. Appreciate ST recommendations. Subjective Date/time seen: 03/25/22 09:43 Interval history: Patient is minimally conversational. She answers simple questions with yes or no. Patient continues to be on IV antibiotics for a urinary tract infection. Chronic Christianson continues. Patient resume cephalexin after IV antibiotic therapy. Neurology on giancarlo
--- NOTE | 2022-03-25 09:43 | PM.IMPN ---
Progress Note: A&P Assessment and Plan (1) Altered mental status, unspecified: Code(s): R41.82 - Altered mental status, unspecified Status: Acute Assessment and Plan: Patient is A&Ox2 today. Head CT with no acute findings Brain MRI showed stable moderate nonspecific cerebral white matter disease Appreciate Neurology consultation Urine toxicology screen still pending Ammonia within normal limits. TSH, B12, folate checked earlier this month and noncontributory to symptoms Mental status has been stable, unchanged. Suspect patient is near baseline. (2) Acute metabolic encephalopathy: Code(s): G93.41 - Metabolic encephalopathy Status: Acute Assessment and Plan: Suspect secondary to UTI worsened by underlying dementia and depression Plan as above Continue with treatment for UTI (3) Acute UTI: Code(s): N39.0 - Urinary tract infection, site not specified Status: Acute Assessment and Plan: UA grossly abnormal on presentation and patient with acute mental status change Urine culture with growth of >100k Pseudomonas aeruginosa. Continue Cefepime Patient with clinical improvement on Cefepime On 03/22, culture also revealed >100k VRE. However, patient had improved significantly on anti-pseudomonal therapy and suspect that VRE is contaminant. Linezolid has been discontinued after one dose and will monitor clinically Patient with chronic christianson catheter (ongoing for several months) which was changed on presentation in the ED. Consult to urology for recommendations on frequent UTIs in setting of chronic Christianson catheter. Recommend treating only if symptomatic. Bi-weekly or monthly catheter changes. Unfortunately the patient is at high risk for recurrent infections, especially when she is handling her christianson in unsterile manner. (4) A-fib: Qualifiers: Atrial fibrillation type: unspecified Qualified Code(s): I48.91 - Unspecified atrial fibrillation Code(s): I48.91 - Unspecified atrial fibrillation Status: Acute Assessment and Plan: Rate is controlled Continue Eliquis and metoprolol (5) Type 2 diabetes mellitus with hyperglycemia: Qualifiers: Diabetes mellitus group home insulin use: without group home use Qualified Code(s): E11.65 - Type 2 diabetes mellitus with hyperglycemia Code(s): E11.65 - Type 2 diabetes mellitus with hyperglycemia Status: Acute Assessment and Plan: A1c is 6.4. Blood sugars are well controlled. Continue Accu-Cheks, sliding scale insulin, hypoglycemic protocol Continue home Lantus (6) Benign essential hypertension: Code(s): I10 - Essential (primary) hypertension Status: Chronic Assessment and Plan: Blood pressure reviewed and has been reasonable, somewhat elevated at times Continue antihypertensives Monitor BP trends (7) Anemia: Code(s): D64.9 - Anemia, unspecified Status: Acute Assessment and Plan: Hemoglobin and hematocrit remaining consistent with baseline Continue to monitor H&H Plan Bedside swallow study ordered due to episode of dysphagia 03/23. Appreciate ST recommendations. Subjective Date/time seen: 03/25/22 09:43 Interval history: Patient is minimally conversational. She answers simple questions with yes or no. Patient continues to be on IV antibiotics for a urinary tract infection. Chronic Christianson continues. Patient resume cephalexin after IV antibiotic therapy. Neurology on board as well as Urology. Review of Systems Review of Systems: All systems reviewed & are unremarkable except as noted in HPI and below ROS unobtainable: Yes unobtainable due to mental status Exam Narrative: General: frail, chronically ill-appearing 76 year-old female, sitting up in bed, comfortable, NARD Neuro: awake, alert, does not answer orientation questions, no focal neurologic deficits noted HEENMT: normocephalic, atra
[2022-03-25] MEDS: INSULIN GLARGINE (*BKC) 100 UNITS/ML 15 UNITS SUB-Q (09:47)
--- NOTE | 2022-03-25 09:58 | PC.NURSE ---
pt did take a drink of water, will not take PO meds at this time, is not combative, she just is refusing to cooperate with care
[2022-03-25 10:58] VITALS: O2SAT 92
[2022-03-25 11:58] LABS: Glucose Point of Care 135 mg/dl (65-105)
--- NOTE | 2022-03-25 14:23 | PCPTNOTE ---
Patient refused treatment 2x today.
[2022-03-25 14:26] VITALS: BP 156/97; PULSE 59; RESP 20; TEMP 36.8; O2SAT 90
--- NOTE | 2022-03-25 15:03 | PC.NURSE ---
pt continues to refuse medications, she answers no thank you when offered medications, food or water, not combative, not compliant with care
--- NOTE | 2022-03-25 15:48 | PC.NURSE ---
daughter arrived for a visit, reviewed with her that pt has not been eating or compliant with care, she also is unable to get pt to eat anything, she will go down to cafeteria and bring something up to try
--- NOTE | 2022-03-25 15:54 | PCSTNOTE ---
Therapist spoke to nurse around lunch time and nurse reported patient is continuing to refuse oral medications and other attempts at oral feedings. Will try one more time tomorrow and then will d/c if patient continues to refuse. Patricia Hospitalist, notified of plan to try again and may d/c.
[2022-03-25] MEDS: polyethylene glycoL 3350 17 GM POWD.PACK PO (16:34)
[2022-03-25 16:38] LABS: Glucose Point of Care 127 mg/dl (65-105)
[2022-03-25 21:01] VITALS: BP 151/93; PULSE 70; RESP 16; TEMP 36.7; O2SAT 90
[2022-03-25 21:48] LABS: Glucose Point of Care 153 mg/dl (65-105)
[2022-03-25 22:04] VITALS: O2SAT 93
[2022-03-25] MEDS: CEFEPIME 0.5 GM in DEXTROSE 5% IN WATER 50 ML IVPB (23:43)
[2022-03-26] MEDS: SALINE LOCK FLUSH 10 ML IV PUSH (05:24)
--- NOTE | 2022-03-26 05:34 | PC.NURSE ---
PT REFUSED PO MEDS THROUGHOUT THE SHIFT BUT DID LET ME GIVE HER IV ABX AND DRAW MORNING LABS FROM HER MIDLINE. LESS AGITATED TONIGHT BUT CONTINUES TO REFUSE MEDICATIONS.
[2022-03-26 06:00] VITALS: BP 174/117; PULSE 96; RESP 20; TEMP 36.7; O2SAT 91
[2022-03-26 06:13] LABS: Basophils Percent Auto 0.5 % (0.2-1.2); Eosinophils Absolute Auto 0.1 K/mm3 (0-0.3); Eosinophils Percent Auto 0.9 % (0-4.4); Hematocrit 39.1 % (37.0-47.0); Immature Granulocyte Absolute 0.02 K/mm3 (0.00-0.031); Immature Granulocyte Percent A 0.3 % (0-0.5); Immature Platelet Fraction Pct 3.1 % (0.9-11.2); Lymphocytes Absolute Auto 0.97 K/mm3 (0.9-3.2); Lymphocytes Percent Auto 12.6 % (18.3-44.2); Mean Corpuscular HGB Conc 28.1 g/dl (32-36); Mean Corpuscular Hemoglobin 25.9 pg (26-34); Mean Platelet Volume 11.1 fl (7.4-10.4); Monocytes Absolute Auto 0.6 K/mm3 (0.1-0.6); Monocytes Percent Auto 7.3 % (2.6-8.5); Neutrophils Percent Auto 78.4 % (45.5-73.1); Platelet Count Result 102 k/mm3 (150-375); Red Blood Count 4.25 M/mm3 (4.2-5.4); Red Cell Distribution Width 17.8 % (11.5-14.5); White Blood Count 7.7 K/mm3 (4.5-10.0)
[2022-03-26 06:20] LABS: Alanine Aminotransferase 13 U/L (6-35); Albumin Level 2.9 g/dL (3.5-5.1); Alkaline Phosphatase 82 U/L (38-126); Anion Gap 6 mmol/L (8-16); Aspartate Amino Transferase 20 U/L (14-36); Bilirubin,Total 1.4 mg/dL (0.2-1.3); Blood Urea Nitrogen 26 mg/dL (7-17); Calcium 10.6 mg/dL (8.4-10.2); Carbon Dioxide 23 mmol/L (22-30); Chloride 110 mmol/L (98-107); Estimated CRCL calculation 28 ml/min; Estimated Glomerular Filt Rate 26; Glucose 114 mg/dL (65-110); Magnesium 2.1 mg/dL (1.6-2.3); Potassium 3.6 mmol/L (3.4-5.0); Sodium 139 mmol/L (137-145)
[2022-03-26 06:41] LABS: Acanthocytes 1+ (NORMAL); Poikilocytosis 1+ (NORMAL)
[2022-03-26 08:02] LABS: Glucose Point of Care 110 mg/dl (65-105)
[2022-03-26 08:47] VITALS: PULSE 84
[2022-03-26] MEDS: METOPROLOL SUCCINATE EXT REL 100 MG TABCR PO (08:47)
[2022-03-26] MEDS: DOCUSATE SODIUM 100 MG CAPSULE PO (08:48)
[2022-03-26] MEDS: APIXABAN 5 MG TABLET PO (08:48)
[2022-03-26 08:50] VITALS: BMI 10.0
--- NOTE | 2022-03-26 09:21 | P.DS_ITS ---
DS: Admitting Diagnosis Discharge Date 03/26/2022 Admitting Diagnosis Altered mental status Metabolic encephalopathy AFib UTI Diabetes mellitus type 2 with hyperglycemia Hypertension Anemia DS: Discharge Diagnosis Discharge Diagnosis (1) Altered mental status, unspecified: Code(s): R41.82 - Altered mental status, unspecified Status: Acute Assessment and Plan: Patient is A&Ox2 today. * Head CT with no acute findings * Brain MRI showed stable moderate nonspecific cerebral white matter disease * Appreciate Neurology consultation * Urine toxicology screen still pending * Ammonia within normal limits. TSH, B12, folate checked earlier this month and noncontributory to symptoms * Mental status has been stable, unchanged. Suspect patient is near baseline. --resolved, patient appears to be at baseline. She is able to track me with her eyes and does not appear to be in acute distress. (2) Acute metabolic encephalopathy: Code(s): G93.41 - Metabolic encephalopathy Status: Acute Assessment and Plan: Suspect secondary to UTI worsened by underlying dementia and depression * Plan as above * Continue with treatment for UTI As above (3) Acute UTI: Code(s): N39.0 - Urinary tract infection, site not specified Status: Acute Assessment and Plan: UA grossly abnormal on presentation and patient with acute mental status change * Urine culture with growth of >100k Pseudomonas aeruginosa. Continue Cefepime * Patient with clinical improvement on Cefepime * On 03/22, culture also revealed >100k VRE. However, patient had improved significantly on anti-pseudomonal therapy and suspect that VRE is contaminant. Linezolid has been discontinued after one dose and will monitor clinically * Patient with chronic christianson catheter (ongoing for several months) which was changed on presentation in the ED. * Consult to urology for recommendations on frequent UTIs in setting of chronic Christianson catheter. Recommend treating only if symptomatic. Bi-weekly or monthly catheter changes. * Unfortunately the patient is at high risk for recurrent infections, especially when she is handling her christianson in unsterile manner. Will resume cephalexin upon discharge Urology evaluated the patient and only recommended to treat her urinary tract infection if she becomes symptomatic. And to resume her cephalexin upon discharge. Patient does not appear to be symptomatic at this time. (4) A-fib: Qualifiers: Atrial fibrillation type: unspecified Qualified Code(s): I48.91 - Unspecified atrial fibrillation Code(s): I48.91 - Unspecified atrial fibrillation Status: Acute Assessment and Plan: Rate is controlled * Continue Eliquis and metoprolol (5) Type 2 diabetes mellitus with hyperglycemia: Qualifiers: Diabetes mellitus watermelon inspector insulin use: without senior living use Qualified Code(s): E11.65 - Type 2 diabetes mellitus with hyperglycemia Code(s): E11.65 - Type 2 diabetes mellitus with hyperglycemia Status: Acute Assessment and Plan: A1c is 6.4. Blood sugars are well controlled. * Continue Accu-Cheks, sliding scale insulin, hypoglycemic protocol * Continue home Lantus (6) Benign essential hypertension: Code(s): I10 - Essential (primary) hypertension Status: Chronic Assessment and Plan: Blood pressure reviewed and has been reasonable, somewhat elevated at times * Continue antihypertensives * Monitor BP trends (7) Anemia: Code(s): D64.9 - Anemi
--- NOTE | 2022-03-26 09:21 | PM.DS ---
DS: Admitting Diagnosis Discharge Date 03/26/2022 Admitting Diagnosis Altered mental status Metabolic encephalopathy AFib UTI Diabetes mellitus type 2 with hyperglycemia Hypertension Anemia DS: Discharge Diagnosis Discharge Diagnosis (1) Altered mental status, unspecified: Code(s): R41.82 - Altered mental status, unspecified Status: Acute Assessment and Plan: Patient is A&Ox2 today. Head CT with no acute findings Brain MRI showed stable moderate nonspecific cerebral white matter disease Appreciate Neurology consultation Urine toxicology screen still pending Ammonia within normal limits. TSH, B12, folate checked earlier this month and noncontributory to symptoms Mental status has been stable, unchanged. Suspect patient is near baseline. --resolved, patient appears to be at baseline. She is able to track me with her eyes and does not appear to be in acute distress. (2) Acute metabolic encephalopathy: Code(s): G93.41 - Metabolic encephalopathy Status: Acute Assessment and Plan: Suspect secondary to UTI worsened by underlying dementia and depression Plan as above Continue with treatment for UTI As above (3) Acute UTI: Code(s): N39.0 - Urinary tract infection, site not specified Status: Acute Assessment and Plan: UA grossly abnormal on presentation and patient with acute mental status change Urine culture with growth of >100k Pseudomonas aeruginosa. Continue Cefepime Patient with clinical improvement on Cefepime On 03/22, culture also revealed >100k VRE. However, patient had improved significantly on anti-pseudomonal therapy and suspect that VRE is contaminant. Linezolid has been discontinued after one dose and will monitor clinically Patient with chronic christianson catheter (ongoing for several months) which was changed on presentation in the ED. Consult to urology for recommendations on frequent UTIs in setting of chronic Christianson catheter. Recommend treating only if symptomatic. Bi-weekly or monthly catheter changes. Unfortunately the patient is at high risk for recurrent infections, especially when she is handling her christianson in unsterile manner. Will resume cephalexin upon discharge Urology evaluated the patient and only recommended to treat her urinary tract infection if she becomes symptomatic. And to resume her cephalexin upon discharge. Patient does not appear to be symptomatic at this time. (4) A-fib: Qualifiers: Atrial fibrillation type: unspecified Qualified Code(s): I48.91 - Unspecified atrial fibrillation Code(s): I48.91 - Unspecified atrial fibrillation Status: Acute Assessment and Plan: Rate is controlled Continue Eliquis and metoprolol (5) Type 2 diabetes mellitus with hyperglycemia: Qualifiers: Diabetes mellitus technician terminal and repeater insulin use: without technician terminal and repeater use Qualified Code(s): E11.65 - Type 2 diabetes mellitus with hyperglycemia Code(s): E11.65 - Type 2 diabetes mellitus with hyperglycemia Status: Acute Assessment and Plan: A1c is 6.4. Blood sugars are well controlled. Continue Accu-Cheks, sliding scale insulin, hypoglycemic protocol Continue home Lantus (6) Benign essential hypertension: Code(s): I10 - Essential (primary) hypertension Status: Chronic Assessment and Plan: Blood pressure reviewed and has been reasonable, somewhat elevated at times Continue antihypertensives Monitor BP trends (7) Anemia: Code(s): D64.9 - Anemia, unspecified Status: Acute Assessment and Plan: Hemoglobin and hematocrit remaining consistent with baseline Continue to monitor H&H Plan Speech therapy evaluated the patient did not suggest any changes to her oral intake and dietary consistency. DS: Summary Hospital Course Reason for hospitalization: Altered mental status Hospital Course: Patient is a 76-year-old female with a past medic
--- NOTE | 2022-03-26 09:43 | PCSTNOTE ---
Therapist was walking past patient room when she was sitting upright and with breakfast tray slightly to her side. Therapist entered room and offered to move the tray to the center of the bed and patient protested. Therapist offered patient her coffee and orange juice and patient refused, stating she does not drink either of these liquids. Patient, seemingly in protest of the drinks, took two bites of her scrambled eggs, sausage and gravy, and exhibited no difficulty with mastication or swallowing. Therapist exited the room to allow patient to continue. Patricia, Hospitalist, was notified that current diet appears appropriate and Bedside Swallow Evaluation order will be discontinued without charge.
[2022-03-26 11:24] VITALS: BMI 42.5
[2022-03-26 11:41] LABS: EDCOVIDSCREEN Negative (Negative)
[2022-03-26 12:09] LABS: Glucose Point of Care 119 mg/dl (65-105)
--- NOTE | 2022-03-26 13:59 | PCNSR ---
On 03/26/22, the student, Alexander Jane, provided care and completed [facility] documentation on this patient. I have reviewed the student's documentation and agree with the findings.
[2022-04-02 15:18] LABS: Marijuana Metabolites NEGATIVE
[2022-04-02 15:19] LABS: Amphetamines NEGATIVE; Barbiturates NEGATIVE; Benzodiazepines NEGATIVE
[2022-04-02 15:26] LABS: Cocaine Metabolites NEGATIVE
== END 2022-03-26 13:36 | DRG 689 ==
LOC: ANHED 19:11 → ANH2MED 20:18
PROVIDERS: Family Medicine; Nurse Practitioner; Physician Assistant; Admitting Provider Student in an Organized Health Care Education/Training Program; Emergency Provider Emergency Medicine; PCP Internal Medicine; Visit Provider Nurse Practitioner Family
DX: N39.0 Urinary tract infection, site not specified (principal); G93.41 Metabolic encephalopathy; D47.Z2 Castleman disease; B96.5 Pseudomonas (aeruginosa) (mallei) (pseudomallei) as the cause of diseases classified elsewhere; N39.41 Urge incontinence; Z97.8 Presence of other specified devices; Z20.822 Contact with and (suspected) exposure to COVID-19; R13.10 Dysphagia, unspecified; E78.5 Hyperlipidemia, unspecified; E11.22 Type 2 diabetes mellitus with diabetic chronic kidney disease; I12.9 Hypertensive chronic kidney disease with stage 1 through stage 4 chronic kidney disease, or unspecified chronic kidney disease; N18.30 Chronic kidney disease, stage 3 unspecified; F03.90 Unspecified dementia, unspecified severity, without behavioral disturbance, psychotic disturbance, mood disturbance, and anxiety; F32.A Depression, unspecified; I48.91 Unspecified atrial fibrillation; E11.65 Type 2 diabetes mellitus with hyperglycemia; H91.93 Unspecified hearing loss, bilateral; D64.9 Anemia, unspecified; Z79.01 Long term (current) use of anticoagulants; Z79.4 Long term (current) use of insulin; Z85.3 Personal history of malignant neoplasm of breast; Z79.899 Other long term (current) drug therapy; Z88.2 Allergy status to sulfonamides; Z98.41 Cataract extraction status, right eye; Z96.1 Presence of intraocular lens; Z87.440 Personal history of urinary (tract) infections
CPT/HCPCS: 36415; 36569; 36600; 51702; 70450; 70551; 80048; 80053; 80307; 81001; 82140; 82274; 82805; 82948; 83605; 83735; 84145; 85025; 85027; 85055; 85610; 85730; 86140; 87040; 87077; 87086; 87088; 87186; 87426; 93005; 96361; 96365; 96367; 96376; 97110; 97161; 97165; 97530; 99285; A9270; C1751; C9803; G0378; J0692; J0696; J1815; J3370; J7120

== ENCOUNTER 2022-12-22 15:23 | Outpatient (CLI) | payer MEDICARE, OTHER, SELFPAY ==
--- NOTE | ~2022-12-22 | XR_ITS ---
EXAMINATION: XR thoracic spine 3V DATE: 12/22/2022 16:16 INDICATION: Thoracic back pain TECHNIQUE: AP, lateral and lateral swimmer's views of the thoracic spine were obtained. COMPARISON: None. FINDINGS: Bone alignment is normal. There is no fracture. There are bridging osteophytes at multiple levels in the spine, consistent with diffuse idiopathic skeletal hyperostosis (DISH). The vertebral b renato heights are maintained. There is mild loss of intervertebral disc space height at multiple levels throughout the thoracic spine. IMPRESSION: 1. Mild thoracic spondylosis without acute findings. Reviewed, dictated and finalized at location F. TIONSHIP SPECIALIST
--- NOTE | ~2022-12-22 | XR_ITS ---
EXAMINATION: XR pelvis min 3V INDICATION: Low back pain TECHNIQUE: AP and bilateral oblique views of the pelvis are obtained. COMPARISON: 07/05/2021 FINDINGS: Bone alignment is normal. There is no fracture. There is severe lumbar spondylosis at L5-S1 . Calcified atherosclerosis is noted. There is slight interval widening of the pubic symphysis of unc lear significance or etiology. IMPRESSION: 1. No acute osseous abnormality. Slight interval widening of the pubic symphysis of unclear significa nce or etiology. Reviewed, dictated and finalized at location F. ES SUPERINTENDENT IMPRESSION: 1. No acute osseous abnormality. Slight interval widening of the pubic symphysi s of unclear significance or etiology.
--- NOTE | ~2022-12-22 | XR_ITS ---
EXAMINATION: XR lumbar spine 2-3V DATE: 12/22/2022 16:16 INDICATION: Low back pain TECHNIQUE: Anteroposterior and lateral views of the lumbar spine, and cone-down lateral view of the l umbosacral junction were obtained. COMPARISON: CT, 07/04/2021 FINDINGS: There is a chronic burst fracture of L3 with slight interval development of loss of anterio r vertebral body height (approximately 20%) since the comparison examination. The remaining vertebral body heights are normal. There is severe loss of intervertebral disc space height at L5-S1 without s ignificant change. No acute fracture is identified. Cholecystectomy clips are noted. IMPRESSION: 1. Chronic L3 burst fracture with slight interval loss of anterior vertebral body height. 2. Severe lumbar spondylosis at L5-S1 without significant change. Reviewed, dictated and finalized at location F. UCTION SPECIALIST IMPRESSION: 1. Chronic L3 burst fracture with slight interval loss of anterior vertebral giancarlo dy height. 2. Severe lumbar spondylosis at L5-S1 without significant change.
== END 2022-12-22 15:24 | disposition home or self-care (01) ==
LOC: ANHIMG 15:27
PROVIDERS: PCP Internal Medicine; Visit Provider Internal Medicine
DX: M25.559 Pain in unspecified hip (principal); S32.000A Wedge compression fracture of unspecified lumbar vertebra, initial encounter for closed fracture; X58.XXXA Exposure to other specified factors, initial encounter; M47.894 Other spondylosis, thoracic region; M47.896 Other spondylosis, lumbar region
CPT/HCPCS: 72072; 72100; 72190

== ENCOUNTER 2023-04-20 14:37 | Outpatient (CLI) | payer MEDICARE, OTHER, SELFPAY ==
--- NOTE | ~2023-04-20 | CT_ITS ---
Noncontrast CT scan of the lumbar spine CLINICAL HISTORY: Lumbar radicular pain TECHNIQUE: Axial noncontrast imaging of the lumbar spine was performed. Sagittal and coronal reformat molina images were constructed. Dose reduction technique was used on this scan by utilizing automated ex posure control and iterative reconstruction technique. The dose-length product (DLP) was 1273.89 mGy- cm. COMPARISON: 07/04/2021 FINDINGS: There is moderate compression fracture deformity at the inferior endplate region of L3, wit h mild progressive loss of height as compared to prior exam. No other fracture or subluxation seen. T here is moderate degenerative disc narrowing L5-S1. Remaining disc spaces are relatively well-preserv ed. At L1-L2, there is no significant disc bulge or herniation. There is mild facet arthropathy. No centr al canal stenosis or definite neural foraminal narrowing. At L2-L3, there is no significant disc bulge or herniation. There is mild facet arthropathy. No centr al canal stenosis or neural foraminal narrowing. At L3-L4, there is mild disc bulge and retropulsion of the posterior inferior corner of the L3 verteb ral body. There is mild facet arthropathy. There is suspected minimal central canal stenosis. There i s moderate to severe right neural foraminal narrowing. There is minimal left neural foraminal narrowi ng. At L4-L5, there is minimal disc bulge and mild facet arthropathy. No central canal stenosis. There is mild bilateral neural foraminal narrowing. At L5-S1, there is no disc bulge or herniation. There is mild facet arthropathy. No central canal dinh nosis. There is mild to moderate bilateral neural foraminal narrowing. Paravertebral soft tissues are unremarkable. 3.9 cm right adrenal mass is present, similar to prior e xam. 1.4 cm left adrenal nodule is also similar to prior exam. Impression: Moderate compression fracture at the inferior endplate region of L3, with progressive loss of height since prior exam. Mild degenerative spondylosis in the lumbar spine, as detailed above. Stable bilateral adrenal nodules. Reviewed, dictated and finalized at location . Impression: Moderate compression fracture at the inferior endplate region of L3, with progr essive loss of height since prior exam. Mild degenerative spondylosis in the lumbar spine, as detailed above. Stable bilateral adrenal nodules.
== END 2023-04-20 14:38 | disposition home or self-care (01) ==
PROVIDERS: PCP Internal Medicine; Visit Provider Nurse Practitioner Family
DX: M47.26 Other spondylosis with radiculopathy, lumbar region (principal); S32.030A Wedge compression fracture of third lumbar vertebra, initial encounter for closed fracture; X58.XXXA Exposure to other specified factors, initial encounter
CPT/HCPCS: 72131

== ENCOUNTER 2024-02-25 19:22 | Inpatient (IN) | payer MEDICARE, OTHER, SELFPAY ==
--- NOTE | ~2024-02-25 | CT_ITS ---
EXAMINATION: CT abdomen pelvis wo con DATE: 02/26/2024 10:14 INDICATION: Urinary tract infection. Renal failure. TECHNIQUE: Computed tomography (CT) of the abdomen and pelvis was performed without intravenous contr ast. Automated exposure control and iterative reconstruction technique were employed. The dose-length product was 1563.51 mGy-cm. COMPARISON: CT abdomen and pelvis 02/22/2022 FINDINGS: The visualized portions of the lung bases demonstrate small pleural effusions and dependent atelectasis. Cardiomegaly is noted. There are coronary artery calcifications. There is a small peric ardial effusion. Calcifications in the liver and spleen are consistent with old granulomatous disease . There are changes of cholecystectomy. The pancreas and left adrenal gland are normal. There is a ch ronic 4.1 cm mass in right adrenal gland measuring soft tissue attenuation with calcifications, likel y an adenoma. There is moderate atrophy of the kidneys. There are multiple cysts in each kidney measu ring up to 4.1 cm on the left. There are hyperdense masses in the kidneys measuring up to 16 mm on th e right. There is a Braswell catheter in expected position. There are stones in the bladder measuring up to 4 mm. There is diverticulosis of the colon without evidence of diverticulitis. There are no dilat ed loops of bowel. The appendix is normal. There is calcified atherosclerosis of the aorta and many o f the other arteries. There are no pathologically enlarged lymph nodes. There is no free intraperiton eal fluid. There is mild thoracolumbar spondylosis. There is a chronic burst fracture of L3. IMPRESSION: 1. Small pleural effusions. 2. Small pericardial effusion. 3. Bilateral kidney masses measuring up to 16 mm on the right, most likely hemorrhagic cysts. Neoplas m cannot be excluded. Abdomen MRI without and with contrast is recommended. 4. Small bladder stones. Reviewed, dictated and finalized at location A. IMPRESSION: 1. Small pleural effusions. 2. Small pericardial effusion. 3. Bilateral kidney masses measuring up to 16 mm on the right, most likely hemo rrhagic cysts. Neoplasm cannot be excluded. Abdomen MRI without and with contra st is recommended. 4. Small bladder stones.
--- NOTE | ~2024-02-25 | XR_ITS ---
Portable chest x-ray Comparison: 03/01/2024 Clinical History: Respiratory failure Findings: Endotracheal tube, NG tube, and right-sided central venous line are in place. Small left p leural effusion present. There is bibasilar pulmonary edema/atelectasis and central congestive change . Cardiomediastinal silhouette is stable. Bones and soft tissues are unremarkable. Impression: Mild bibasilar pulmonary edema/atelectasis with central congestive change. Small left pleural effusion. Support tubes, as above. Reviewed, dictated and finalized at location M. Impression: Mild bibasilar pulmonary edema/atelectasis with central congestive change. Small left pleural effusion. Support tubes, as above.
--- NOTE | ~2024-02-25 | CT_ITS ---
EXAMINATION: CT brain wo con DATE: 02/25/2024 20:24 INDICATION: altered mental status . TECHNIQUE: Computed tomography (CT) of the head was performed without intravenous contrast. The mA wa s adjusted according to patient size. Iterative reconstruction technique was employed. The dose-lengt h product was 1513.33 mGy-cm. COMPARISON: 03/18/2022. FINDINGS: Motion limited examination. No acute intracranial hemorrhage or extra-axial fluid collection. No hydrocephalus, mass, or herniation. No acute ischemic infarct. Unremarkable dural venous sinus attenuation. No acute osseous abnormality. The aerated spaces are clear. Moderate atrophy and chronic white matter change. Atherosclerotic intracranial calcification. Right l ens replacement. IMPRESSION: No acute intracranial process. Reviewed, dictated and finalized at location K.
--- NOTE | ~2024-02-25 | XR_ITS ---
EXAMINATION: XR chest 1V portable DATE: 03/01/2024 11:58 INDICATION: Respiratory failure. TECHNIQUE: A single frontal view of the chest was obtained. COMPARISON: Chest single view at 5:07 AM FINDINGS: There are airspace opacities in left mid and lower lung zones with a basilar predominance. There is a small left pleural effusion. No pneumothorax. Cardiomegaly is noted. The endotracheal tube tip is 2.6 cm above the clarisa. The nasogastric tube tip is beyond the inferior margin of the radiog raph, but at least to the stomach. A right internal jugular central venous catheter is seen with tip in the right atrium. There are surgical clips in right axilla. IMPRESSION: 1. Stable airspace opacities in left mid and lower lung zones, consistent with atelectasis versus pne umonia. 2. Stable small left pleural effusion. 3. Cardiomegaly. Reviewed, dictated and finalized at location A. IMPRESSION: 1. Stable airspace opacities in left mid and lower lung zones, consistent with atelectasis versus pneumonia. 2. Stable small left pleural effusion. 3. Cardiomegaly.
--- NOTE | ~2024-02-25 | XR_ITS ---
Portable chest x-ray Comparison: 02/27/2024 Clinical History: Respiratory failure Findings: Endotracheal tube and NG tube are unchanged. Small bilateral pleural effusions are present . There is probable mild to moderate pulmonary edema pattern, asymmetrically worse in the right lung. Cardiomediastinal silhouette is stable. Bones and soft tissues are unremarkable. Impression: Small bilateral pleural effusions with mild to moderate pulmonary edema pattern, right lung asymmetri francisco worse than left. Correlate clinically for pneumonia. Support tubes, as above. Reviewed, dictated and finalized at location . Impression: Small bilateral pleural effusions with mild to moderate pulmonary edema pattern , right lung asymmetrically worse than left. Correlate clinically for pneumonia . Support tubes, as above.
--- NOTE | ~2024-02-25 | XR_ITS ---
EXAMINATION: XR chest ET placement Exam Date/Time: 02/27/2024 20:30 CDT HISTORY: After intubation to confirm ET placement Comparison: Same date at 7:56 PM. FINDINGS/IMPRESSION: New endotracheal tube terminating 2.9 cm above the clarisa, consider 1 cm retraction. New NG tube, in good position. Unchanged pulmonary opacities. Reviewed, dictated and finalized at location K.
--- NOTE | ~2024-02-25 | XR_ITS ---
Portable chest x-ray Comparison: 03/04/2024 Clinical History: Respiratory failure Findings: Stable right-sided central venous line. There is retrocardiac consolidation. There is prom inence of the hilar regions, unchanged. Stable probable calcified density medial right lung apex. Ca rdiomediastinal silhouette is stable. Bones and soft tissues are unremarkable. Impression: Stable calcified density medial right lung apex. Central congestive change versus pulmonary hypertension. Retrocardiac consolidation could reflect atelectasis versus pneumonia. Reviewed, dictated and finalized at location . Impression: Stable calcified density medial right lung apex. Central congestive change versus pulmonary hypertension. Retrocardiac consolidation could reflect atelectasis versus pneumonia.
--- NOTE | ~2024-02-25 | XR_ITS ---
Portable chest x-ray Comparison: 03/06/2024 Clinical History: Respiratory failure Findings: Stable right-sided central venous line in place. There is central congestive change versus pulmonary hypertension. There is minimal residual retrocardiac airspace disease. Cardiomediastinal silhouette is stable. Bones and soft tissues are unremarkable. Impression: Minimal residual retrocardiac airspace disease. Correlate for resolving pulmonary edema/atelectasis v ersus pneumonia. Central congestive change versus pulmonary artery hypertension. Stable cardiomegaly. Stable support line. Reviewed, dictated and finalized at location . Impression: Minimal residual retrocardiac airspace disease. Correlate for resolving pulmona ry edema/atelectasis versus pneumonia. Central congestive change versus pulmonary artery hypertension. Stable cardiomegaly. Stable support line.
--- NOTE | ~2024-02-25 | XR_ITS ---
Portable chest x-ray Comparison: 02/29/2024 Clinical History: Respiratory failure Findings: Endotracheal tube, NG tube, and right-sided central venous line are in place. Small bilate ral pleural effusions are present. There is central congestive change with mild bibasilar pulmonary e dulce/atelectasis. Cardiomediastinal silhouette is stable. Bones and soft tissues are unremarkable. Impression: Small bilateral pleural effusions with mild bibasilar pulmonary edema/atelectasis. Support tubes, as above. Stable cardiomegaly. Reviewed, dictated and finalized at location . Impression: Small bilateral pleural effusions with mild bibasilar pulmonary edema/atelectas is. Support tubes, as above. Stable cardiomegaly.
--- NOTE | ~2024-02-25 | XR_ITS ---
EXAMINATION: XR chest 1V Exam Date/Time: 02/25/2024 20:17 CDT HISTORY: weakness Comparison: 02/22/2022. RESULT: Lines, tubes, and devices: Cholecystectomy clips. Right axillary clips. Lungs and pleura: Subsegmental areas of consolidation in the left lower lung. Mild diffuse reticular opacities. Ill-defined right lower lung groundglass opacity. Cardiomediastinal silhouette: Stable cardiomegaly. Other: No acute osseous or upper abdominal finding. IMPRESSION: Subsegmental atelectasis/consolidation in the left lower lung. Patchy bilateral lower lung groundglas s diffuse interstitial opacities may represent mild edema. Reviewed, dictated and finalized at location K. IMPRESSION: Subsegmental atelectasis/consolidation in the left lower lung. Patchy bilateral lower lung groundglass diffuse interstitial opacities may represent mild edema .
--- NOTE | ~2024-02-25 | XR_ITS ---
Portable chest x-ray Comparison: 03/07/2024 Clinical History: Respiratory failure Findings: NG tube and right-sided central venous line remain in place. There is probable pulmonary h ypertension versus central congestive change. Minimal haziness left lung base noted. Cardiomediastin al silhouette is stable. Bones and soft tissues are unremarkable. Impression: Support tubes, as above. Pulmonary artery hypertension versus central congestive change. Minimal haziness left lung base. Correlate for atelectasis/edema versus pneumonia. Reviewed, dictated and finalized at [facility]. Impression: Support tubes, as above. Pulmonary artery hypertension versus central congestive change. Minimal haziness left lung base. Correlate for atelectasis/edema versus pneumon ia.
--- NOTE | ~2024-02-25 | XR_ITS ---
Portable chest x-ray Comparison: 03/05/2024 Clinical History: Respiratory failure Findings: Right-sided central venous line is unchanged. Fabgn-ba-jqzgzpue left pleural effusion pres ent with left basilar airspace disease. Probable minimal right pleural effusion with bibasilar hazine ss and central congestive change. Cardiomediastinal silhouette is stable. Bones and soft tissues are unremarkable. Impression: Qxokw-my-fnewmuyy left pleural effusion and probable minimal right pleural effusion. Left lower lobe atelectasis/pulmonary edema versus possibly pneumonia. Probable mild right basilar pulmonary edema with central congestive change. Stable support line. Reviewed, dictated and finalized at location . Impression: Hxiil-pe-okeorbwk left pleural effusion and probable minimal right pleural effu avery. Left lower lobe atelectasis/pulmonary edema versus possibly pneumonia. Probable mild right basilar pulmonary edema with central congestive change. Stable support line.
--- NOTE | ~2024-02-25 | XR_ITS ---
EXAM: XR abdomen gastric tube insert DATE: 02/27/2024 20:39 HISTORY: NG tube . COMPARISON: CT abdomen pelvis 02/26/2024. FINDINGS: Hazy groundglass opacities in the right lung base, left lung base consolidation, possible small bilateral effusions. Surgical clips over the upper mid abdomen. NG tube, tip and side port proj ect over the expected location of the stomach. Air-filled dilated loops of transverse colon. IMPRESSION: NG tube, in good position. Air-filled, dilated loops of transverse colon, may represent a cute or chronic ileus. Obstruction is not excluded. Reviewed, dictated and finalized at location K. IMPRESSION: NG tube, in good position. Air-filled, dilated loops of transverse colon, may represent acute or chronic ileus. Obstruction is not excluded.
--- NOTE | ~2024-02-25 | XR_ITS ---
Portable chest x-ray Comparison: 02/28/2024 Clinical History: Respiratory failure Findings: Endotracheal tube, NG tube, and right-sided central venous line are in satisfactory positi ons. Probable small left pleural effusion present. There is probable retrocardiac consolidation. Poss ible central congestive change. Cardiomediastinal silhouette is stable. Bones and soft tissues are u nremarkable. Impression: Support tubes, as above. Small left pleural effusion with left lower lobe atelectasis versus pneumonia. Mild central congestive change. Reviewed, dictated and finalized at location . Impression: Support tubes, as above. Small left pleural effusion with left lower lobe atelectasis versus pneumonia. Mild central congestive change.
--- NOTE | ~2024-02-25 | US_ITS ---
EXAMINATION: US venous doppler [facility] DATE: 03/07/2024 14:41 INDICATION: Fevers. TECHNIQUE: Grayscale ultrasound images without and with compression and Doppler ultrasound images of the bilateral lower extremity veins were obtained. COMPARISON: None. FINDINGS: Occlusive appearing noncompressible deep venous thrombosis in the right peroneal and posterior tibial veins. The visualized portions of right common femoral vein, profunda (deep) femoral vein, femoral v ein, popliteal vein and greater saphenous vein outflow are patent. Occlusive appearing noncompressible deep venous thrombosis in the left peroneal and posterior tibial veins. The visualized portions of left common femoral vein, profunda femoral vein, femoral vein, popl iteal vein and greater saphenous vein outflow are patent. IMPRESSION: 1. Age-indeterminate occlusive noncompressible deep venous thrombosis in the peroneal and posterior tibial veins at the bilateral calves. No evident dpncd-son-pxxj deep venous thrombosis in either lowe r limb. Dr. Reyna discussed these findings with Dr. Ledbetter at 3:00 PM. Reviewed, dictated and finalized at location A. IMPRESSION: 1. Age-indeterminate occlusive noncompressible deep venous thrombosis in the p eroneal and posterior tibial veins at the bilateral calves. No evident above-th e-knee deep venous thrombosis in either lower limb. Dr. Reyna discussed thes e findings with Dr. Ledbetter at 3:00 PM.
--- NOTE | ~2024-02-25 | CT_ITS ---
EXAMINATION: CT brain wo con DATE: 02/27/2024 20:58 INDICATION: altered mental status, possible stroke . TECHNIQUE: Computed tomography (CT) of the head was performed without intravenous contrast. The mA wa s adjusted according to patient size. Iterative reconstruction technique was employed. The dose-lengt h product was 681.00 mGy-cm. COMPARISON: 02/25/2024. FINDINGS: No acute intracranial hemorrhage or extra-axial fluid collection. No hydrocephalus, mass, or herniation. No acute ischemic infarct. Unremarkable dural venous sinus attenuation. No acute osseous abnormality. Inferior frontal and bilateral ethmoid mucosal thickening, aerated secretions in the left sphenoid si nus and nasopharynx likely due to intubation, the remaining aerated spaces are clear. Moderate atrophy and chronic white matter change. Atherosclerotic intracranial calcification. Right l ens replacement. IMPRESSION: No acute intracranial process. Reviewed, dictated and finalized at location K.
--- NOTE | ~2024-02-25 | XR_ITS ---
EXAMINATION: XR chest port-a-cath/central DATE: 02/28/2024 13:00 INDICATION: Central line placement. TECHNIQUE: A single frontal view of the chest was obtained. COMPARISON: Chest single view at 5:06 AM, CT abdomen and pelvis 02/26/2024 FINDINGS: The patient is rotated to her left. There are small pleural effusions. There are airspace o pacities in the perihilar regions and at the lung bases. No pneumothorax. Cardiomegaly is noted. The endotracheal tube tip is 2.9 cm above the clarisa. The nasogastric tube tip is in the stomach. A right internal jugular central venous catheter is seen with tip in the right atrium. IMPRESSION: 1. Central line tip in right atrium. 2. Stable small pleural effusions. 3. Airspace opacities in the perihilar regions and at the lung bases with improvement on the right, l ikely a combination of atelectasis and mild pulmonary edema. Pneumonia cannot be excluded. 4. Cardiomegaly. Reviewed, dictated and finalized at location A. IMPRESSION: 1. Central line tip in right atrium. 2. Stable small pleural effusions. 3. Airspace opacities in the perihilar regions and at the lung bases with impro vement on the right, likely a combination of atelectasis and mild pulmonary mercedes ma. Pneumonia cannot be excluded. 4. Cardiomegaly.
--- NOTE | ~2024-02-25 | XR_ITS ---
. EXAMINATION: XR fl guide central line place DATE: 02/28/2024 13:01 INDICATION: Tunneled dialysis catheter insertion TECHNIQUE: Single fluoroscopic image of the central chest was obtained during procedure performed by Dr. Jean. Radiologist was not present for the imaging or procedure. The amount of fluoroscopy time u sed during this procedure was 0.4 minutes. COMPARISON: None. FINDINGS: Large-bore central venous catheter extends caudally from the superior vena cava with distal tip at th e caudal right atrium. Segment of the nasogastric tube is seen extending from the mid esophagus into the proximal stomach with the distal tip collimated beyond the rfeha-fz-ogfr. IMPRESSION: 1. Fluoroscopy utilized during placement of a central venous catheter the distal tip of which is at t he caudal right atrium. See procedure note for further detail. Reviewed, dictated and finalized at location A. IMPRESSION: 1. Fluoroscopy utilized during placement of a central venous catheter the dista l tip of which is at the caudal right atrium. See procedure note for further de tail.
--- NOTE | ~2024-02-25 | XR_ITS ---
EXAMINATION: XR abdomen gastric tube insert DATE: 03/07/2024 20:11 INDICATION: Nasogastric tube placement. TECHNIQUE: A supine view of the abdomen was obtained. COMPARISON: Abdomen radiograph 02/27/2024 FINDINGS: The lower abdomen is excluded. The nasogastric tube tip is in the stomach. A right sided ce ntral venous catheter is noted with tip in right atrium. IMPRESSION: 1. Nasogastric tube tip in the stomach. Reviewed, dictated and finalized at location E.
--- NOTE | ~2024-02-25 | XR_ITS ---
EXAMINATION: XR chest 1V portable Exam Date/Time: 02/27/2024 19:55 CDT HISTORY: tachycardia, hypoxia Comparison: 02/25/2024. RESULT: Lines, tubes, and devices: Cholecystectomy clips. Right axillary clips.. Lungs and pleura: Worsening bibasilar opacities with loss of the hemidiaphragm shadows and air bronc hograms in the left midlung. Diffuse reticular opacities. Mild bilateral costophrenic angle blunting. Cardiomediastinal silhouette: Stable. Other: No acute osseous or upper abdominal finding. IMPRESSION: Worsening bilateral lower lung opacification possibly representing worsening consolidation in the lef t lung and worsening atelectasis in the right lung. Mild initial edema. Likely small bilateral effusi ons. Reviewed, dictated and finalized at location K. IMPRESSION: Worsening bilateral lower lung opacification possibly representing worsening co nsolidation in the left lung and worsening atelectasis in the right lung. Mild initial edema. Likely small bilateral effusions.
--- NOTE | ~2024-02-25 | XR_ITS ---
XR chest 1V portable DATE: 03/04/2024 05:34 INDICATION: Respiratory failure TECHNIQUE: Portable AP chest on 03/04/2024 at 0515 hours COMPARISON: 03/02/2024 portable AP chest at 0513 hours FINDINGS: ET tube is in satisfactory position 2.2 cm above clarisa. NG tube in stomach. Right internal jugular dual-lumen central venous catheter in right atrium. Cardiomegaly. Aortic calcification, ectasia. Increased right cardiac density in the left suggests left lower lobe infiltrate or atelectasis. IMPRESSION: Cardiomegaly, left lower lobe atelectasis and/or consolidation Reviewed, dictated and finalized at location A.
[2024-02-25 19:21] VITALS: BP 140/72; PULSE 68; RESP 20; TEMP 36.4; O2SAT 94
--- NOTE | 2024-02-25 19:46 | ECG_ITS ---
SEE SCANNED COPY FOR CONFIRMED REPORT MTDD
[2024-02-25 20:00] VITALS: O2SAT 94
[2024-02-25 20:08] LABS: Basophils Percent Auto 0.3 % (0.2-1.2); Eosinophils Absolute Auto 0.1 K/mm3 (0-0.3); Eosinophils Percent Auto 1.8 % (0-4.4); Hematocrit 27.9 % (37.0-47.0); Hemoglobin 8.4 g/dL (12.0-15.0); Immature Granulocyte Absolute 0.04 K/mm3 (0.00-0.031); Immature Granulocyte Percent A 0.5 % (0-0.5); Lymphocytes Absolute Auto 1.25 K/mm3 (0.9-3.2); Mean Corpuscular HGB Conc 30.1 g/dl (32-36); Mean Corpuscular Hemoglobin 29.5 pg (26-34); Mean Corpuscular Volume 97.9 fl (80-100); Mean Platelet Volume 11.7 fl (7.4-10.4); Monocytes Absolute Auto 0.5 K/mm3 (0.1-0.6); Monocytes Percent Auto 7.2 % (2.6-8.5); Neutrophils Absolute Auto 5.4 K/mm3 (1.3-6.7); Neutrophils Percent Auto 73.2 % (45.5-73.1); Platelet Count Result 170 k/mm3 (150-375); Red Blood Count 2.85 M/mm3 (4.2-5.4); Red Cell Distribution Width 15.7 % (11.5-14.5); White Blood Count 7.4 K/mm3 (4.5-10.0)
--- NOTE | 2024-02-25 20:10 | PC.NURSE ---
Pt to CT at this time.
[2024-02-25 20:12] LABS: Appearance Urine Turbid (Clear); Bacteria Urine 4+ /hpf; Bilirubin Urine Negative (Negative); Blood Urine Trace (Negative); Color Urine Yellow (Yellow); Glucose Urine UA 2+ mg/dL (Negative); Ketones Urine Negative (Negative); Leukocyte Esterase Ur 3+ LEU/UL (Negative); Need Manual Microscopic Reviewed; Nitrate Urine Positive (Negative); Non Pathogenic Casts >20; Protein Urine 3+ mg/dL (Negative); Specific Grav Ur 1.019 (1.001-1.035); Squamous Epithelial Cell Urine Moderate /hpf (Few); Urobilinogen Urine 0.2 mg/dL (<2.0); WBC Urine >100 /hpf (0-3); pH Urine 5.5 (5.0-9.0)
[2024-02-25 20:13] LABS: Add Urine Microscopic? YES
[2024-02-25 20:18] LABS: Alanine Aminotransferase 14 U/L (6-35); Albumin Level 3.6 g/dL (3.5-5.1); Alkaline Phosphatase 45 U/L (38-126); Anion Gap 9 mmol/L (4-12); Aspartate Amino Transferase 16 U/L (14-36); Bilirubin,Total 0.6 mg/dL (0.2-1.3); Blood Urea Nitrogen 75 mg/dL (7-17); Calcium 11.2 mg/dL (8.4-10.2); Carbon Dioxide 17 mmol/L (22-30); Chloride 118 mmol/L (98-107); Estimated CRCL calculation 15 ml/min; Estimated Glomerular Filt Rate 11; Glucose 170 mg/dL (65-110); Potassium 4.6 mmol/L (3.4-5.0); Sodium 144 mmol/L (137-145)
[2024-02-25 20:19] LABS: INR 1.4; Partial Thromboplastin Time 32.3 Seconds (22.3-36.8); Prothrombin Time 17.5 Seconds (11.1-14.7)
[2024-02-25 20:33] LABS: Troponin I 0.024 ng/mL (0.000-0.034)
[2024-02-25 20:39] LABS: Procalcitonin 0.1 ng/mL
[2024-02-25 20:49] LABS: Lactic Acid Reflex 0.9 mmol/L (0.7-2.0)
[2024-02-25 21:17] LABS: Influenza A QL RT-PCR Negative (Negative); Influenza B QL RT-PCR Negative (Negative); RSV RNA, RT-PCR Negative (Negative); SARS-CoV-2 RNA PCR Negative (Negative)
[2024-02-25] MEDS: SODIUM CHLORIDE 0.9% IV 1,000 ML 999 ML IV CONT (21:55)
--- NOTE | 2024-02-25 22:10 | ED.GENADULT ---
HPI - General Adult General Chief complaint: Altered Mental Status Stated complaint: confused, combative History of Present Illness HPI narrative: Patient is a 78-year-old female who presents emergency department chief complaint altered mental status. Patient has prior history of dementia and has had complicated UTIs the patient has a chronic indwelling Braswell catheter and the family noticed that she has been more confused and more combative than normal I believe that she has a urinary tract infection Related Data Home Medications Medication Instructions Recorded Confirmed cyanocobalamin (vitamin B-12) 1,000 mcg PO DAILY 08/18/20 02/25/24 1,000 mcg tablet Lactobacillus acidoph-pectin 1 cap PO BID 01/11/22 02/25/24 [Acidophilus-Pectin] ferrous sulfate 324 mg (65 mg 324 mg PO EVERY OTHER DAY 01/11/22 02/25/24 iron) tablet,delayed release cetirizine 10 mg capsule (Allergy 10 mg PO HS 02/16/22 02/25/24 Relief (cetirizine)) tolnaftate 1 % topical powder 1 applic topical Q12HR PRN Rash 03/18/22 02/26/24 zolpidem 5 mg tablet 5 mg PO QHS 03/23/23 02/26/24 cholecalciferol (vitamin D3) 50 50 mcg PO DAILY 01/16/24 02/25/24 mcg (2,000 unit) capsule cranberry 500 mg capsule 500 mg PO DAILY 01/16/24 02/25/24 hydralazine 25 mg tablet 25 mg PO TID 01/16/24 02/25/24 lidocaine 4 % topical patch 3 patch topical DAILY PRN Pain 01/16/24 02/26/24 miconazole nitrate 2 % topical 1 applic topical BID PRN Vaginal 01/16/24 02/26/24 cream (Antifungal (miconazole)) Irritation polyethylene glycol 3350 17 17 g PO DAILY PRN Constipation 01/16/24 02/26/24 gram/dose oral powder docusate sodium 100 mg capsule 200 mg PO BID PRN Constipation 01/17/24 02/25/24 (Colace) insulin aspart U-100 100 unit/mL See Rx Instructions subcut .COMPLEX 01/17/24 02/26/24 subcutaneous solution (Novolog U-100 Insulin aspart) tramadol 50 mg tablet 50 mg PO Q6H PRN Pain (Scale Score 01/18/24 02/26/24 7-10) acetaminophen 500 mg tablet 500 mg PO TID 02/16/24 02/25/24 aripiprazole 2 mg tablet 2 mg PO QHS 02/26/24 02/25/24 estradiol 0.01% (0.1 mg/gram) 1 g vaginal 2XW 02/26/24 02/26/24 vaginal cream fluconazole 150 mg tablet 150 mg PO DAILY PRN Disinfection 02/26/24 02/25/24 insulin glargine 100 unit/mL (3 10 unit subcut QAM 02/26/24 02/25/24 mL) subcutaneous pen (Basaglar KwikPen U-100 Insulin) methylphenidate HCl 10 mg tablet 10 mg PO BIDWMEAL 02/26/24 02/26/24 metoprolol succinate 50 mg 50 mg PO QHS 02/26/24 02/26/24 tablet,extended release 24 hr nystatin 100,000 unit/gram topical 1 applic topical BID 02/26/24 02/26/24 powder sitagliptin phosphate 25 mg tablet 25 mg PO DAILY 02/26/24 02/26/24 Allergies Allergy/AdvReac Type Severity Reaction Status Date / Time Sulfa (Sulfonamide Allergy Severe Rash Verified 02/16/24 15:13 Antibiotics) Review of Systems Review of Systems: A 10 system review of systems was completed on the patient and is negative except for what is stated in the HPI. Nursing and ancillary documentation was reviewed. 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
[2024-02-25] MEDS: MEROPENEM 1 GM/NS 100 ML 1 GM/100 ML BAG IVPB (22:33)
--- NOTE | 2024-02-25 23:00 | PM.IMHP ---
H&P: HPI History of Present Illness Date/Time: 02/25/24 21:30 Chief Complaint: More confused and combative Narrative: 78-year-old female with a past medical history of dementia, stage 5 chronic kidney disease not on dialysis, CHF, essential hypertension, chronic indwelling Braswell catheter and diabetes among other comorbidities who presented to the ER from [facility] but due to increased confusion and combative behaviors. The patient's only daughter provides the majority of the history. The patient herself denies any specific complaints in continues to ask for the nursing repetitively and is getting loud with the daughter and with staff members when her request are not met. Her daughter reports that the patient is usually pleasantly confused and cooperative. She reports she has also he usually a little bit more oriented than she is currently. At this time the patient was or she was in the hospital but could not name the hospital and was oriented as to her name. The patient states that she was brought into the hospital due to a fall but the daughter adamantly denies the patient having had a fall. She reports that the patient has been more confused over the last 2 weeks. She has had 2 separate urine specimen sent to the lab as outpatient they grew out 3 or more organisms. The daughter is upset that the lab would not release the results so that they could treat for an organism. So the patient has not been on antibiotic therapy that the daughter knows of. Patient is currently afebrile on presentation to the ER and there is no documentation the patient having fevers per [facility] documentation. Patient does not have a white count currently. Her Braswell catheter was changed yesterday [facility] the [facility] but they had been trying to change it for about a week but the patient would not cooperate. Daughter reported that it took 5 people to change the patient's catheter. The urine in the patient's catheter is frankly cloudy but pale yellow in color. The daughter thinks that the patient is well hydrated in states that she has been eating and drinking fine. The patient's BUN and creatinine is elevated above her baseline 75 (up from 26 in 2021) and 3.9 (up from prior values of 1.9 to 2.5 in 2021). Her daughter reports that the patient has been treated at [facility] on her recent hospitalizations so the patient has not been at our facility since 2022. Patient has not had any nausea or vomiting. The daughter reports that the patient is chronically constipated usually has bowel movements every 3-5 days that are usually hard in difficult for the patient to pass. She does not know when her mother had her last bowel movement. Daughter reports that the patient is to remain a full code and had after her mother is started on dialysis she hopes to transition the patient back to her home so that she can do daily at home dialysis. Dr. Schwarz is the patient's load dispatcher local. 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
--- NOTE | 2024-02-25 23:39 | ADMGEN ---
This patient, Maria R Barrientos, was admitted to Medical Room 344-01. Patient/family oriented to hospital policies and general routines including ID bracelet, bed and alarms, visiting hours, pain management, procedures, bathroom and other care routines, personal items, smoking policy, room service/diet, and visiting hours. Information on how to activate the Rapid Response Team has been discussed. Patient/Family are encouraged to report perceived risks to care and to ask questions if they do not understand what they are told or what they should do.
[2024-02-25 23:53] VITALS: BMI 34.6
[2024-02-26] VITALS (11 sets, daily range): BP systolic 135–163; BP diastolic 76–83; PULSE 72–103; RESP 18–22; TEMP 36.5–36.6; O2SAT 92–95
[2024-02-26] MEDS: SODIUM CHLORIDE 0.9% IV 1,000 ML 100 ML IV CONT (00:01)
[2024-02-26 00:18] LABS: Glucose Point of Care 147 mg/dl (65-105)
[2024-02-26 07:31] LABS: Glucose Point of Care 162 mg/dl (65-105)
--- NOTE | 2024-02-26 09:36 | P.PNIM_ITS ---
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 * Monitor CBC, CMP watch for sepsis. * Monitor vital signs. 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 * nephrology consulted * Avoid nephrotoxic drugs. * Monitor antihypertensive drug therapy. * Avoid NSAIDs. * Routine CMP monitoring GFR. * Monitor electrolytes especially potassium. * Antibiotic doses depending on creatinine clearance. * Pharmacy does medications. * Routine follow-up with Nephrology as an outpatient. Metabolic encephalopathy secondary to UTI/delirium and chronic dementia * CTA head negative for any acute issues * Will treat UTI * Monitor neuro status warm Diabetes * Accu-Cheks a.c. HS * sliding scale insulin * hold oral diabetic medications * resume patient's home long-acting * Diabetic diet * Optimize Vinicio inhibitors and statins. * Watch for hypoglycemia/hypoglycemic protocol ordered Iron deficiency anemia * Hemoglobin 8.4 POA * Likely secondary to iron deficiency and end-stage renal disease * No overt bleeding * H&H daily * Transfuse PRBC HGB < 7.0 * Resumed iron supplements HX HTN: Resumed BB, amlodapine and hydralazine/Monitor BP per unit protocol HX Dementia: Resumed home medications Code status: Full code per patient DVT prophylaxis: Eliquis Stress ulcer prophylaxis: Protonix 40 daily PT/OT notes: Disposition: Patient was admitted to medical unit for further evaluation and treatment urinary tract infection, metabolic encephalopathy and acute chronic renal failure continue to treat with IV antibiotics pending sensitivities under consult to Nephrology will monitor neuro status plan will likely be to return to patient's previous alf facility at discharge. Time Spent With Patient Time with patient: 15 - 25 minutes Subjective Date/time seen: 02/26/24 09:36 Interval history: Admission: Medical Chart 78-year-old female with a past medical history of dementia, stage 5 chronic kidney disease not on dialysis, CHF, essential hypertension, chronic indwelling Braswell catheter and diabetes among other comorbidities who presented to the ER from [facility] but due to increased confusion and combative behaviors.?Admitted for UTI with A/C renal failure Cr. 3.9 and metabolic encephalopathy. 02/25: Patient lethargic responded to painful stimuli and name but staff stated she was up eating her breakf
--- NOTE | 2024-02-26 09:36 | PM.IMPN ---
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 Monitor CBC, CMP watch for sepsis. Monitor vital signs. 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 nephrology consulted Avoid nephrotoxic drugs. Monitor antihypertensive drug therapy. Avoid NSAIDs. Routine CMP monitoring GFR. Monitor electrolytes especially potassium. Antibiotic doses depending on creatinine clearance. Pharmacy does medications. Routine follow-up with Nephrology as an outpatient. Metabolic encephalopathy secondary to UTI/delirium and chronic dementia CTA head negative for any acute issues Will treat UTI Monitor neuro status warm Diabetes Accu-Cheks a.c. HS sliding scale insulin hold oral diabetic medications resume patient's home long-acting Diabetic diet Optimize Vinicio inhibitors and statins. Watch for hypoglycemia/hypoglycemic protocol ordered Iron deficiency anemia Hemoglobin 8.4 POA Likely secondary to iron deficiency and end-stage renal disease No overt bleeding H&H daily Transfuse PRBC HGB < 7.0 Resumed iron supplements HX HTN: Resumed BB, amlodapine and hydralazine/Monitor BP per unit protocol HX Dementia: Resumed home medications Code status: Full code per patient DVT prophylaxis: Eliquis Stress ulcer prophylaxis: Protonix 40 daily PT/OT notes: Disposition: Patient was admitted to medical unit for further evaluation and treatment urinary tract infection, metabolic encephalopathy and acute chronic renal failure continue to treat with IV antibiotics pending sensitivities under consult to Nephrology will monitor neuro status plan will likely be to return to patient's previous snf facility at discharge. Time Spent With Patient Time with patient: 15 - 25 minutes Subjective Date/time seen: 02/26/24 09:36 Interval history: Admission: Medical Chart 78-year-old female with a past medical history of dementia, stage 5 chronic kidney disease not on dialysis, CHF, essential hypertension, chronic indwelling Braswell catheter and diabetes among other comorbidities who presented to the ER from case eval [facility] but due to increased confusion and combative behaviors.?Admitted for UTI with A/C renal failure Cr. 3.9 and metabolic encephalopathy. 02/25: Patient lethargic responded to painful stimuli and name but staff stated she was up eating her breakfast this AM, agitated and pulling at IV last night sitter was placed at bedside for safety. Renal function with small improvement, nephrology consulted for stage V ESRD CT ABD did show bilateral 16mm masses. UA pending cultures patient chronic indwelling catheter, HX of VRE. Review of Systems Review of Systems: ROS unobtainable: Yes unobtainable due to mental status Exam Narrative: Physical Exam: GENERAL: Alert and oriented x 1. Agitated obese. EYES: EOMI. No scleral icter
[2024-02-26 09:56] LABS: Hematocrit 28.7 % (37.0-47.0); Hemoglobin 8.6 g/dL (12.0-15.0); Mean Corpuscular Hemoglobin 29.2 pg (26-34); Mean Corpuscular Volume 97.3 fl (80-100); Mean Platelet Volume 11.1 fl (7.4-10.4); Platelet Count Result 159 k/mm3 (150-375); Red Blood Count 2.95 M/mm3 (4.2-5.4); Red Cell Distribution Width 15.7 % (11.5-14.5); White Blood Count 5.4 K/mm3 (4.5-10.0)
[2024-02-26 10:08] LABS: Alanine Aminotransferase 14 U/L (6-35); Albumin Level 3.5 g/dL (3.5-5.1); Alkaline Phosphatase 46 U/L (38-126); Anion Gap 6 mmol/L (4-12); Aspartate Amino Transferase 13 U/L (14-36); Bilirubin,Total 0.6 mg/dL (0.2-1.3); Blood Urea Nitrogen 71 mg/dL (7-17); Calcium 11.2 mg/dL (8.4-10.2); Carbon Dioxide 16 mmol/L (22-30); Chloride 121 mmol/L (98-107); Estimated CRCL calculation 16 ml/min; Estimated Glomerular Filt Rate 12; Glucose 210 mg/dL (65-110); Potassium 4.5 mmol/L (3.4-5.0); Sodium 143 mmol/L (137-145)
[2024-02-26] MEDS: MEROPENEM 500 MG in SODIUM CHLORIDE 0.9% IV 100 ML 200 ML IVPB ×2 (11:00→22:06)
[2024-02-26] MEDS: INSULIN GLARGINE (*BKC) 100 UNITS/ML 10 UNITS SUB-Q (11:01)
[2024-02-26 11:42] LABS: Glucose Point of Care 210 mg/dl (65-105)
--- NOTE | 2024-02-26 13:22 | P.CONNP_ITS ---
Assessment and Plan Assessment and plan (1) Chronic kidney disease (CKD), stage V: Code(s): N18.5 - Chronic kidney disease, stage 5 Status: Acute Assessment and Plan: * creatinine has been running in the 3.2 - 3.6mg/dl range in the last 6 months * slow and ongoing progression of kidney disease over the last 2 years with recent deterioration noted in September 2023 * some concerns regarding possible uremic symptoms (poor oral intake, decreased energy level/increased fatigue, confusion,...etc) * due to her diabetes, hypertension, vascular disease, recurrent nephrolithiasis + UTIs and what essentially appears to be only one kidney providing functionality based on previous imaging * will likely need WARPER TENDER/dialysis in the near future * some recent fluctuations maybe due to #3 and possible prerenal factors * agree with sodium bicarbonate supplementation * follow trend of repeat labs and UOP (2) Altered mental status: Code(s): R41.82 - Altered mental status, unspecified Status: Acute Assessment and Plan: * as noted on admission and at nursing facility * presumably due to #3 (but cannot deny an aspect of uremia as well) * follow mentation with treatment of acute issues (3) Acute UTI: Code(s): N39.0 - Urinary tract infection, site not specified Status: Acute Assessment and Plan: * admission urinalysis highly suggestive * complicated by indwelling catheter * on antibiotics * follow culture data * follow-up on CT imaging (4) Benign essential hypertension: Code(s): I10 - Essential (primary) hypertension Status: Chronic Assessment and Plan: * reasonable control at this time * follow trend of hemodynamics (5) Anemia: Code(s): D64.9 - Anemia, unspecified Status: Chronic Assessment and Plan: * due to underlying CKD and acute illness * follow trend of H/H * consider empiric CHELITA while hospitalized (6) DM type 2 (diabetes mellitus, type 2): Onset Date: ~2018 Qualifiers: Diabetes mellitus complication status: without complication Diabetes mellitus penitentiary insulin use: without intermediate school teacher use Qualified Code(s): E11.9 - Type 2 diabetes mellitus without complications Code(s): E11.9 - Type 2 diabetes mellitus without complications Status: Chronic Assessment and Plan: * follow accu-cheks * glycemic control per hospitalists Long and extensive discussion (greater than 25 minutes) with the patient's daughter at bedside regarding her acute illness in the context her her advanced chronic kidney disease. She is well aware of the fact that her mother will eventually require renal replacement therapy/dialysis for her deteriorating kidney function given her symptoms of uremia that have been noteworthy for the past few months. Unfortunately, her altered mental status is now complicated by an acute infection which has resulted in her worsening encephalopathy/behavior. Her daughter has concerns about whether not dialysis is needed sooner but I would advocate for treatment of the acute infection and see how she does before proceeding with more invasive therapies which the daughter voiced understanding too . I will continue follow patient with you while she remains hospitalized and make further recommendations as deemed necessary. Thank you for allowing me to participate in the care of this patient. History of Present Illness Reason for Consult Consult date: 02/26/24 Reason for consult: chronic renal failure Chief Complaint Chief complaint: UTI, altered m
--- NOTE | 2024-02-26 13:22 | PM.CNNEP ---
Assessment and Plan Assessment and plan (1) Chronic kidney disease (CKD), stage V: Code(s): N18.5 - Chronic kidney disease, stage 5 Status: Acute Assessment and Plan: creatinine has been running in the 3.2 - 3.6mg/dl range in the last 6 months slow and ongoing progression of kidney disease over the last 2 years with recent deterioration noted in September 2023 some concerns regarding possible uremic symptoms (poor oral intake, decreased energy level/increased fatigue, confusion,...etc) due to her diabetes, hypertension, vascular disease, recurrent nephrolithiasis + UTIs and what essentially appears to be only one kidney providing functionality based on previous imaging will 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 need 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 AND 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/dialysis in the near future some recent fluctuations maybe due to #3 and possible prerenal factors agree with sodium bicarbonate supplementation follow trend of repeat labs and UOP (2) Altered mental status: Code(s): R41.82 - Altered mental status, unspecified Status: Acute Assessment and Plan: as noted on admission and at nursing facility presumably due to #3 (but cannot deny an aspect of uremia as well) follow mentation with treatment of acute issues (3) Acute UTI: Code(s): N39.0 - Urinary tract infection, site not specified Status: Acute Assessment and Plan: admission urinalysis highly suggestive complicated by indwelling catheter on antibiotics follow culture data follow-up on CT imaging (4) Benign essential hypertension: Code(s): I10 - Essential (primary) hypertension Status: Chronic Assessment and Plan: reasonable control at this time follow trend of hemodynamics (5) Anemia: Code(s): D64.9 - Anemia, unspecified Status: Chronic Assessment and Plan: due to underlying CKD and acute illness follow trend of H/H consider empiric CHELITA while hospitalized (6) DM type 2 (diabetes mellitus, type 2): Onset Date: ~2018 Qualifiers: Diabetes mellitus complication status: without complication 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 She is well aware of the fact that her mother will eventually require renal replacement therapy/dialysis for her deteriorating kidney function given her symptoms of uremia that have been noteworthy for the past few months. Unfortunately, her altered mental status is now complicated by an acute infection which has resulted in her worsening encephalopathy/behavior. Her daughter has concerns about whether not dialysis is needed sooner but I would advocate for treatment of the acute infection and see how she does before proceeding with more invasive therapies which the daughter voiced understanding too . I will continue follow patient with you while she remains hospitalized and make further recommendations as deemed necessary. Thank you for allowing me to participate in the care of this patient. History of Present Illness Reason for Consult Consult date: 02/26/24 Reason for consult: chronic renal failure Chief Complaint Chief complaint: UTI, altered mental status, chronic renal insuffic History of Present Illness Narrative: The patient is a 78-year-old female with a past medical history as outlined below who presented to [facility] Emergency Room from her nursing facility due to altered mental status. At baseline, the patient is usually pleasantly confused but cooperative. However, apparently, over last few weeks, the pa
[2024-02-26] MEDS: hydrALAZINE HCL 25 MG TABLET PO ×2 (14:22→17:16)
[2024-02-26] MEDS: methylPHENIDATE HCL (*CRX) 10 MG TABLET PO (14:22)
[2024-02-26 16:30] LABS: Glucose Point of Care 143 mg/dl (65-105)
[2024-02-26] MEDS: ACIDOPHILUS/BULGARICUS CHEWABLE TABLET 1 TABLET PO (17:16)
[2024-02-26] MEDS: ISOSORBIDE DINITRATE 10 MG TABLET PO (17:16)
[2024-02-26] MEDS: ZOLPIDEM TARTRATE (*CRX) 5 MG TABLET PO (22:04)
[2024-02-26] MEDS: METOPROLOL SUCCINATE EXT REL 50 MG TABCR PO (22:05)
[2024-02-26] MEDS: LORATADINE 10 MG TABLET PO (22:05)
[2024-02-26] MEDS: ARIPiprazole 2 MG TABLET PO (22:05)
[2024-02-26 22:18] LABS: Glucose Point of Care 169 mg/dl (65-105)
[2024-02-27] VITALS (23 sets, daily range): BP systolic 123–157; BP diastolic 66–94; PULSE 82–124; RESP 16–28; TEMP 36.6–36.8; O2SAT 91–100; BMI 34.6
[2024-02-27 05:36] LABS: Hematocrit 32.8 % (37.0-47.0); Hemoglobin 9.1 g/dL (12.0-15.0); Mean Corpuscular HGB Conc 27.7 g/dl (32-36); Mean Corpuscular Hemoglobin 29.4 pg (26-34); Mean Corpuscular Volume 106.1 fl (80-100); Mean Platelet Volume 11.5 fl (7.4-10.4); Platelet Count Result 165 k/mm3 (150-375); Red Blood Count 3.09 M/mm3 (4.2-5.4); Red Cell Distribution Width 15.7 % (11.5-14.5); White Blood Count 6.2 K/mm3 (4.5-10.0)
[2024-02-27 05:58] LABS: Alanine Aminotransferase 12 U/L (6-35); Albumin Level 3.4 g/dL (3.5-5.1); Alkaline Phosphatase 48 U/L (38-126); Anion Gap 10 mmol/L (4-12); Aspartate Amino Transferase 14 U/L (14-36); Bilirubin,Total 0.6 mg/dL (0.2-1.3); Blood Urea Nitrogen 69 mg/dL (7-17); Calcium 11.4 mg/dL (8.4-10.2); Carbon Dioxide 15 mmol/L (22-30); Chloride 120 mmol/L (98-107); Estimated CRCL calculation 16 ml/min; Estimated Glomerular Filt Rate 12; Glucose 173 mg/dL (65-110); Potassium 4.5 mmol/L (3.4-5.0); Sodium 145 mmol/L (137-145)
[2024-02-27 06:26] LABS: Hepatitis B Surface Antigen Negative (Negative)
[2024-02-27 06:43] LABS: Hepatitis B Surface Anti Res Negative
[2024-02-27 07:59] LABS: Glucose Point of Care 180 mg/dl (65-105)
--- NOTE | 2024-02-27 08:32 | P.PNIM_ITS ---
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 * Monitor CBC, CMP watch for sepsis. * Monitor vital signs. 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 * nephrology consulted * Avoid nephrotoxic drugs. * Monitor antihypertensive drug therapy. * Avoid NSAIDs. * Routine CMP monitoring GFR. * Monitor electrolytes especially potassium. * Antibiotic doses depending on creatinine clearance. * Pharmacy does medications. * Routine follow-up with Nephrology as an outpatient. Metabolic encephalopathy secondary to UTI/delirium and chronic dementia * CTA head negative for any acute issues * Will treat UTI * Monitor neuro status warm Diabetes * Accu-Cheks a.c. HS * sliding scale insulin * hold oral diabetic medications * resume patient's home long-acting * Diabetic diet * Optimize Vinicio inhibitors and statins. * Watch for hypoglycemia/hypoglycemic protocol ordered Iron deficiency anemia * Hemoglobin 8.4 POA * Likely secondary to iron deficiency and end-stage renal disease * No overt bleeding * H&H daily * Transfuse PRBC HGB < 7.0 * Resumed iron supplements HX HTN: Resumed BB, amlodapine and hydralazine/Monitor BP per unit protocol HX Dementia: Resumed home medications Code status: Full code per patient DVT prophylaxis: Eliquis Stress ulcer prophylaxis: Protonix 40 daily PT/OT notes: Disposition: Patient was admitted to medical unit for further evaluation and treatment urinary tract infection, metabolic encephalopathy and acute chronic renal failure continue to treat with IV antibiotics pending sensitivities under consult to Nephrology will monitor neuro status plan will likely be to return to patient's previous assisted facility at discharge. Dialysis can likely be decided at a later date. Time Spent With Patient Time with patient: 15 - 25 minutes Subjective Date/time seen: 02/27/24 08:32 Interval history: Admission: Medical Chart 78-year-old female with a past medical history of dementia, stage 5 chronic kidney disease not on dialysis, CHF, essential hypertension, chronic indwelling Braswell catheter and diabetes among other comorbidities who presented to the ER from [facility] but due to increased confusion and combative behaviors.?Admitted for UTI with A/C renal failure Cr. 3.9 and metabolic encephalopathy. 02/25: Patient lethargic responded to painfu
--- NOTE | 2024-02-27 08:32 | PM.IMPN ---
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 Monitor CBC, CMP watch for sepsis. Monitor vital signs. 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 nephrology consulted Avoid nephrotoxic drugs. Monitor antihypertensive drug therapy. Avoid NSAIDs. Routine CMP monitoring GFR. Monitor electrolytes especially potassium. Antibiotic doses depending on creatinine clearance. Pharmacy does medications. Routine follow-up with Nephrology as an outpatient. Metabolic encephalopathy secondary to UTI/delirium and chronic dementia CTA head negative for any acute issues Will treat UTI Monitor neuro status warm Diabetes Accu-Cheks a.c. HS sliding scale insulin hold oral diabetic medications resume patient's home long-acting Diabetic diet Optimize Vinicio inhibitors and statins. Watch for hypoglycemia/hypoglycemic protocol ordered Iron deficiency anemia Hemoglobin 8.4 POA Likely secondary to iron deficiency and end-stage renal disease No overt bleeding H&H daily Transfuse PRBC HGB < 7.0 Resumed iron supplements HX HTN: Resumed BB, amlodapine and hydralazine/Monitor BP per unit protocol HX Dementia: Resumed home medications Code status: Full code per patient DVT prophylaxis: Eliquis Stress ulcer prophylaxis: Protonix 40 daily PT/OT notes: Disposition: Patient was admitted to medical unit for further evaluation and treatment urinary tract infection, metabolic encephalopathy and acute chronic renal failure continue to treat with IV antibiotics pending sensitivities under consult to Nephrology will monitor neuro status plan will likely be to return to patient's previous halfway facility at discharge. Dialysis can likely be decided at a later date. Time Spent With Patient Time with patient: 15 - 25 minutes Subjective Date/time seen: 02/27/24 08:32 Interval history: Admission: Medical Chart 78-year-old female with a past medical history of dementia, stage 5 chronic kidney disease not on dialysis, CHF, essential hypertension, chronic indwelling Braswell catheter and diabetes among other comorbidities who presented to the ER from [facility] but due to increased confusion and combative behaviors.?Admitted for UTI with A/C renal failure Cr. 3.9 and metabolic encephalopathy. 02/25: Patient lethargic responded to painful stimuli and name but staff stated she was up eating her breakfast this AM, agitated and pulling at IV last night sitter was placed at bedside for safety. Renal function with small improvement, nephrology consulted for stage V ESRD CT ABD did show bilateral 16mm masses. UA pending cultures patient chronic indwelling catheter, HX of VRE. 02/26: Renal function unchanged, nephrology had a long discussion regarding Dialysis with POA daughter will plan on treating current infection and monitor patient acute mental
[2024-02-27] MEDS: MEROPENEM 500 MG in SODIUM CHLORIDE 0.9% IV 100 ML 200 ML IVPB ×2 (09:05→23:41)
[2024-02-27] MEDS: CYANOCOBALAMIN 1,000 MCG TABLET 1000 MCG PO (09:06)
[2024-02-27] MEDS: PANTOPRAZOLE 40 MG TABLET PO (09:06)
[2024-02-27] MEDS: CHOLECALCIFEROL 1,000 UNITS TABLET 2000 UNITS PO (09:06)
[2024-02-27] MEDS: SITagliptin PHOSPHATE 25 MG TABLET PO (09:06)
[2024-02-27] MEDS: ACIDOPHILUS/BULGARICUS CHEWABLE TABLET 1 TABLET PO ×2 (09:06→17:14)
[2024-02-27] MEDS: methylPHENIDATE HCL (*CRX) 10 MG TABLET PO ×2 (09:10→12:27)
[2024-02-27] MEDS: amLODIPine BESYLATE 5 MG TABLET 10 MG PO (09:11)
[2024-02-27] MEDS: hydrALAZINE HCL 25 MG TABLET PO ×3 (09:11→17:14)
[2024-02-27] MEDS: ISOSORBIDE DINITRATE 10 MG TABLET PO ×2 (09:11→17:13)
[2024-02-27] MEDS: ROSUVASTATIN 10 MG TABLET PO (09:12)
[2024-02-27] MEDS: INSULIN GLARGINE (*BKC) 100 UNITS/ML 10 UNITS SUB-Q (09:23)
--- NOTE | 2024-02-27 10:19 | P.PNNP_ITS ---
Progress Note: A&P Assessment and Plan (1) Chronic kidney disease (CKD), stage V: Code(s): N18.5 - Chronic kidney disease, stage 5 Status: Chronic Assessment and Plan: * creatinine has been running in the 3.2 - 3.6mg/dl range in the last 6 months * slow and ongoing progression of kidney disease over the last 2 years with recent deterioration noted in September 2023 * some concerns regarding possible uremic symptoms (poor oral intake, decreased energy level/increased fatigue, confusion,...etc) recenty * due to her diabetes, hypertension, vascular disease, recurrent nephrolithiasis + UTIs and what essentially appears to be only one kidney providing functionality based on previous imaging * will 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 need 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 ACCOUNT 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/dialysis in the near future * hold eliquis in case HD catheter placement needed on this admission * some recent fluctuations maybe due to #3 and possible prerenal factors * agree with sodium bicarbonate supplementation * follow trend of repeat labs and UOP (2) Altered mental status: Code(s): R41.82 - Altered mental status, unspecified Status: Acute Assessment and Plan: * as noted on admission and at nursing facility * presumably due to #3 (but cannot deny an aspect of uremia as well) * follow mentation with treatment of acute issues (3) Acute UTI: Code(s): N39.0 - Urinary tract infection, site not specified Status: Acute Assessment and Plan: * admission urinalysis highly suggestive * complicated by indwelling catheter * on antibiotics * follow culture data * follow-up on CT imaging (4) Benign essential hypertension: Code(s): I10 - Essential (primary) hypertension Status: Chronic Assessment and Plan: * reasonable control at this time * follow trend of hemodynamics (5) Anemia: Code(s): D64.9 - Anemia, unspecified Status: Chronic Assessment and Plan: * due to underlying CKD and acute illness * follow trend of H/H * consider empiric CHELITA while hospitalized (6) DM type 2 (diabetes mellitus, type 2): Onset Date: ~2018 Qualifiers: Diabetes mellitus residential insulin use: without residential use Diabetes mellitus complication status: without complication Qualified Code(s): E11.9 - Type 2 diabetes mellitus without complications Code(s): E11.9 - Type 2 diabetes mellitus without complications Status: Chronic Assessment and Plan: * follow accu-cheks * glycemic control per hospitalists Will continue to follow. Subjective Date/time seen: 02/27/24 10:19 Interval history: Follow-up for chronic kidney disease. Mentation seems a bit better this morning on my visit with her -- she was responsive to questions and denied any discomfort; no other issues/events overnight or earlier this AM; remains hemodynamically stable. Exam Narrative: General: elderly female in NAD Heart: normal S1 and S2; no rub Lungs: clear anteriorly; decreased at bases Abdomen: soft, nontender, nondistended, positive bowel sounds Extremities: no cyanosis or clubbing; trace edema Skin: warm and dry Objective Data Vital Signs Vital Signs: Vital Signs Temp Pulse Resp BP Pulse Ox O2 Del Method 02/27/24 09:10 Room Air 02/27/24 09:10 88 02/27/24 04:00 82 02/27/24 00:00 88 02/26/24 20:00 103 H
--- NOTE | 2024-02-27 10:19 | PM.PNNEP ---
Progress Note: A&P Assessment and Plan (1) Chronic kidney disease (CKD), stage V: Code(s): N18.5 - Chronic kidney disease, stage 5 Status: Chronic Assessment and Plan: creatinine has been running in the 3.2 - 3.6mg/dl range in the last 6 months slow and ongoing progression of kidney disease over the last 2 years with recent deterioration noted in September 2023 some concerns regarding possible uremic symptoms (poor oral intake, decreased energy level/increased fatigue, confusion,...etc) recenty due to her diabetes, hypertension, vascular disease, recurrent nephrolithiasis + UTIs and what essentially appears to be only one kidney providing functionality based on previous imaging 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/dialysis in the near future hold eliquis in case HD catheter placement needed on this admission some recent fluctuations maybe due to #3 and possible prerenal factors agree with sodium bicarbonate supplementation follow trend of repeat labs and UOP (2) Altered mental status: Code(s): R41.82 - Altered mental status, unspecified Status: Acute Assessment and Plan: as noted on admission and at nursing facility presumably due to #3 (but cannot deny an aspect of uremia as well) follow mentation with treatment of acute issues (3) Acute UTI: Code(s): N39.0 - Urinary tract infection, site not specified Status: Acute Assessment and Plan: admission urinalysis highly suggestive complicated by indwelling catheter on antibiotics follow culture data follow-up on CT imaging (4) Benign essential hypertension: Code(s): I10 - Essential (primary) hypertension Status: Chronic Assessment and Plan: reasonable control at this time follow trend of hemodynamics (5) Anemia: Code(s): D64.9 - Anemia, unspecified Status: Chronic Assessment and Plan: due to underlying CKD and acute illness follow trend of H/H consider empiric CHELITA while hospitalized (6) DM type 2 (diabetes mellitus, type 2): Onset Date: ~2018 Qualifiers: Diabetes mellitus intermediate frame tender insulin use: without senior living use Diabetes mellitus complication status: without complication Qualified Code(s): E11.9 - Type 2 diabetes mellitus without complications Code(s): E11.9 - Type 2 diabetes mellitus without complications Status: Chronic Assessment and Plan: follow accu-cheks glycemic control per hospitalists Will continue to follow. Subjective Date/time seen: 02/27/24 10:19 Interval history: Follow-up for chronic kidney disease. Mentation seems a bit better this morning on my visit with her -- she was responsive to questions and denied any discomfort; no other issues/events overnight or earlier this AM; remains hemodynamically stable. Exam Narrative: General: elderly female in NAD Heart: normal S1 and S2; no rub Lungs: clear anteriorly; decreased at bases Abdomen: soft, nontender, nondistended, positive bowel sounds Extremities: no cyanosis or clubbing; trace edema Skin: warm and dry Objective Data Vital Signs Vital Signs: Vital Signs Temp Pulse Resp BP Pulse Ox O2 Del Method 02/27/24 09:10 Room Air 02/27/24 09:10 88 02/27/24 04:00 82 02/27/24 00:00 88 02/26/24 20:00 103 H 02/27/24 05:06 97.8 F 89 18 150/79 H 91 02/26/24 20:00 Room Air 02/26/24 22:11 97.8 F 85 20 138/76 95 02/26/24 22:05 92 02/26/24 17:14 163/83 H 02/26/24 16:00 84 02/26/24 12:00 86 02/26/24 14:00 97.7 F 88 22 H 142/78 H 92 Intake/Output Intake/Output: Intake & Output 02/24/24 02/25/24 02/26/24 02/27/24 23:59 23:59 23:59 23:59 Intake Total 100 1017 120 Output Total 1250 450 Balance 100 233 330 Meds/Results Medications: Active Medications Generic Name Dose Route Start Last Admin Trade Name Freq PRN Reason Sto
[2024-02-27 11:38] LABS: Glucose Point of Care 203 mg/dl (65-105)
[2024-02-27] MEDS: SODIUM CHLORIDE 0.9% IV 1,000 ML 100 ML IV CONT (13:28)
[2024-02-27 16:59] LABS: Glucose Point of Care 146 mg/dl (65-105)
[2024-02-27] MEDS: ONDANSETRON INJ 4 MG/2 ML VIAL IV PUSH (17:52)
[2024-02-27 19:59] LABS: Alveolar/Arterial O2 Gradient 301.8 mmHg; Base Excess ABG -12.6 mEq/l (+/-2.0); Carboxyhemoglobin 0.3 % THb (0-2.0); Fractional Inspired Oxygen 100 %; HCO3 ABG 17.1 mEq/l (22.0-26.0); Methemoglobin ABG 0.3 %THb (0-1.5); Oxygen Saturation ABG 99.6 % (95.0-100.0); PCO2 ABG 58.2 mmHg (35.0-45.0); PO2 FiO2 Ratio Arterial Blood 3.53 %; Reduced Hemoglobin 1.4 %THb (0-5.0); Total Hemoglobin 10.2 g/dL (12.0-18.0)
[2024-02-27 20:01] LABS: Device NON-REBREATHER MASK; Modified Allen's Test Pass; Site Drawn RIGHT RADIAL; pH ABG 7.085 (7.350-7.450)
[2024-02-27] MEDS: ETOMIDATE 20 MG/10 ML AMPUL 30 MG IV PUSH (20:12)
[2024-02-27] MEDS: ROCURONIUM BROMIDE 50 MG/5 ML VIAL 30 MG IV PUSH (20:13)
[2024-02-27] MEDS: FENTANYL 2,500MCG/NS250ML(*CRX 2,500 MCG/250 ML BAG IV CONT (20:15)
[2024-02-27] MEDS: MIDAZOLAM 100MG/NS 100ML(*CRX) 100 MG/100 ML BAG IV CONT (20:15)
--- NOTE | 2024-02-27 20:15 | PC.NURSE ---
1944: Patient telemetry noted to be tachy; ranging from 115 to 159. Patient appeared to be sleeping with last known active at 1830. Assessment of patient revealed a response to painful stimuli only, pupils sluggish to respond with and O2 66 on room air. 10L O2 non rebreather placed on patient with no status change. Notified Gerling regarding current status; it was recommended to call a rapid. VS 98.2, 98, 16, 97, 126/75. BS 171. 2000: Patient not responding to bedside treatment. Transferred to ICU-2 at this time.
--- NOTE | 2024-02-27 20:17 | PC.NURSE ---
1955 called dttracie hancock and informed of patient decline and that she was in a Rapid Response and would need intubation dtr agrees and states do everything possibe . dtr on way to hospital
[2024-02-27 20:32] LABS: Glucose Point of Care 180 mg/dl (65-105)
--- NOTE | 2024-02-27 20:33 | WPDPROCEDUR ---
Procedures Intubation Intubation Date: 02/27/24 Intubation Time: 20:15 Sedative: etomidate Mg given: 20 Paralytic: rocuronium Mg given: 30 Laryngoscope: fiber optic video scope ET tube size: 7 Tube secured depth (cm): 22 Tube secured location: lips Tube placement confirmation: visualized tube passing through cords, equal breath sounds bilaterally, no breath sounds over epigastrium and confirmation by capnometry Patient tolerated procedure: well Intubation complications: none Additional comments: Chest x-ray reviewed ET tube appears to be in appropriate position measuring 3 cm from the clarisa, enlarging pleural effusion compared to prior on the left, pulmonary edema, aortic calcifications, OG tube appropriate position
--- NOTE | 2024-02-27 20:43 | PM.CCN ---
Critical Care Event Note Summary Code activated: No Narrative: Rapid response was called on 02/27/2024 at 19:45 The patient's last known well was at 18:30. Nursing staff came just before rapid response was called and found the patient unresponsive with the minimal respirations. Arrived at bedside patient had non-rebreather in place an ABG was being obtained. Patient's oxygen saturations were normal and blood pressures were in the 120 systolic. Patient was in AFib with variable rate between 40 and 90. Patient would respond to sternal rub with minimal movement of the left hand, the patient had minimal gag reflex on exam, left eye globe appeared more protuberant than my prior examination on the 4th. Pupils were equal and pinpoint. After sedation for intubation BE pupils were midsize and equal. Patient was flaccid on the left side. The patient's ABG demonstrated marked metabolic acidosis. Patient does have baseline mild chronic CO2 retention with a baseline around 51 with her last ABG being in 2021. Following intubation the air lift operator was contacted regarding patient's transfer from medical floor to ICU with update on clinical course. Vocational Adviser recommends adding Unasyn for possible aspiration. However on review of the chart the patient was still on meropenem he with our urine cultured been negative. Instead will continue meropenem and add vancomycin. MRSA PCR was obtained which was positive. Lab is yet been able to obtain labs because patient has be taken emergently down to CT scanner. Re-evaluation: Impending respiratory failure/airway protection--patient has a 7.0 ET tube measuring 22 at the lip. ABG did demonstrate improving trend with pH of 7.2 and slightly improved pCO2. Tidal volumes were already adjusted immediately following intubation to 400 and rate was increased to 24. Repeat ABG is still pending at the end of my shift. Acute neurologic change--- After return from CT scanner patient became quite agitated and began moving bilateral upper and lower extremities. I did discuss the patient's bulging global with the daughter daughter reports that this is patient's baseline. Patient's pupils are equal she has now got a good gag reflex against the ET tube. Transient changes of the right upper and lower extremity flaccid symptoms could have been due to TIA symptoms, or possibly Diego's paralysis. The patient's daughter does reports the patient does have a history of seizures a couple of years ago. Metabolic acidosis--- Labs were reviewed the patient does not have any significant lactic acidosis he appears the only source of the patient's acidosis. Patient has been placed on a bicarb drip. Will repeat electrolyte panel in a.m.. A.m. labs demonstrated--- Serum bicarb is improving after bicarb drip and 2 amps of sodium bicarb pushes. Atrial fibrillation on chronic anticoagulation--- Patient is in AFib RVR but is agitated and pulling at restraints. Sedation has been increased. Patient does have known history of AFib. If heart rate does not improve with sedation will start IV Lopressor. Diabetes mellitus-- Patient has been placed on NPO sliding scale insulin with Accu-Cheks q.6 hours. 160 minute spent in critical care activities. Due to a high probability of clinically significant, life threatening deterioration, the patient required my highest level of preparedness to intervene emergently and I personally spent this critical care time directly and personally managing the patient. This critical care time included obtaining a history; examining the patient; pulse oximetry; ordering and review of studies; arranging urgent treatment with development of a management plan; evaluation of patient's response to treatment; frequent reassessment; and discussions with other providers. It was exclusive of separately billable procedures and treating other patients and teaching time. Please see Assessment and Plan section and the rest of the note for keeley
[2024-02-27 22:21] LABS: Basophils Percent Auto 0.4 % (0.2-1.2); Eosinophils Percent Auto 0.4 % (0-4.4); Hematocrit 30.8 % (37.0-47.0); Immature Granulocyte Absolute 0.05 K/mm3 (0.00-0.031); Lymphocytes Absolute Auto 0.16 K/mm3 (0.9-3.2); Lymphocytes Percent Auto 3.1 % (18.3-44.2); Mean Corpuscular HGB Conc 29.2 g/dl (32-36); Mean Corpuscular Hemoglobin 29.4 pg (26-34); Mean Corpuscular Volume 100.7 fl (80-100); Mean Platelet Volume 11.1 fl (7.4-10.4); Monocytes Absolute Auto 0.2 K/mm3 (0.1-0.6); Monocytes Percent Auto 3.9 % (2.6-8.5); Neutrophils Absolute Auto 4.7 K/mm3 (1.3-6.7); Neutrophils Percent Auto 91.2 % (45.5-73.1); Platelet Count Result 154 k/mm3 (150-375); Red Blood Count 3.06 M/mm3 (4.2-5.4); Red Cell Distribution Width 15.9 % (11.5-14.5); White Blood Count 5.2 K/mm3 (4.5-10.0)
[2024-02-27 22:29] LABS: Ammonia < 9 umol/L (9-30); Lactic Acid Reflex 0.8 mmol/L (0.7-2.0)
[2024-02-27 22:32] LABS: Alanine Aminotransferase 12 U/L (6-35); Albumin Level 3.5 g/dL (3.5-5.1); Alkaline Phosphatase 43 U/L (38-126); Anion Gap 10 mmol/L (4-12); Aspartate Amino Transferase 20 U/L (14-36); Bilirubin,Total 0.8 mg/dL (0.2-1.3); Blood Urea Nitrogen 69 mg/dL (7-17); Calcium 11.2 mg/dL (8.4-10.2); Carbon Dioxide 15 mmol/L (22-30); Chloride 121 mmol/L (98-107); Creatine Kinase 24 U/L (30-135); Estimated CRCL calculation 16 ml/min; Estimated Glomerular Filt Rate 12; Glucose 177 mg/dL (65-110); Potassium 4.6 mmol/L (3.4-5.0); Sodium 146 mmol/L (137-145)
[2024-02-27 22:39] LABS: Alveolar/Arterial O2 Gradient 341.3 mmHg; Carboxyhemoglobin 0.2 % THb (0-2.0); Fractional Inspired Oxygen 100 %; HCO3 ABG 17.5 mEq/l (22.0-26.0); Methemoglobin ABG 0.5 %THb (0-1.5); Oxygen Saturation ABG 99.6 % (95.0-100.0); Oxyhemoglobin 97.9 % THb (90.0-100.0); PCO2 ABG 45.7 mmHg (35.0-45.0); PO2 FiO2 Ratio Arterial Blood 3.26 %; Reduced Hemoglobin 1.4 %THb (0-5.0); Total Hemoglobin 10.3 g/dL (12.0-18.0)
[2024-02-27 22:41] LABS: Device VENTILATOR; Modified Allen's Test Pass; Site Drawn RIGHT RADIAL; pH ABG 7.202 (7.350-7.450)
[2024-02-27 22:42] LABS: Arterial Blood Gas PEEP 5 cmH2O; Arterial Blood Gas Tidal Volume 400 ml; Arterial Blood Gas Vent Mode CMV; Arterial Blood Gas Ventilator rate 20 /MIN
[2024-02-27] MEDS: SODIUM BICARBONATE 8.4% 150 MEQ in DEXTROSE 5% 1,000 ML 950 ML 50 MEQ IV CONT (22:44)
[2024-02-27 22:49] LABS: Troponin I 0.035 ng/mL (0.000-0.034)
[2024-02-27] MEDS: SODIUM BICARBONATE 8.4% 50 MEQ/50 ML SYRINGE IV PUSH (23:13)
[2024-02-27] MEDS: MINERAL OIL/WHITE PETROLATUM OINTMENT 1 APPLIC EACH EYE (23:21)
[2024-02-27 23:25] LABS: Vitamin B12 > 1000.0 pg/mL (239-931)
[2024-02-27] MEDS: VANCOMYCIN 1,500 MG/NS 500 ML 1,500 MG/500 ML BAG 250 MG IVPB (23:29)
[2024-02-27 23:54] LABS: Glucose Point of Care 168 mg/dl (65-105)
[2024-02-28] VITALS (55 sets, daily range): BP systolic 98–150; BP diastolic 63–98; PULSE 50–98; RESP 13–27; TEMP 34.6–37; O2SAT 97–100; BMI 34.6
[2024-02-28 01:29] LABS: Glucose Point of Care 171 mg/dl (65-105)
[2024-02-28 02:56] LABS: MRSA (PCR) DETECTED (NOT DETECTE)
[2024-02-28 04:08] LABS: Hematocrit 26.9 % (37.0-47.0); Hemoglobin 8.2 g/dL (12.0-15.0); Mean Corpuscular HGB Conc 30.5 g/dl (32-36); Mean Corpuscular Hemoglobin 29.8 pg (26-34); Mean Corpuscular Volume 97.8 fl (80-100); Mean Platelet Volume 10.8 fl (7.4-10.4); Platelet Count Result 143 k/mm3 (150-375); Red Blood Count 2.75 M/mm3 (4.2-5.4); Red Cell Distribution Width 15.6 % (11.5-14.5); White Blood Count 2.6 K/mm3 (4.5-10.0)
[2024-02-28 04:18] LABS: Alanine Aminotransferase 10 U/L (6-35); Albumin Level 2.9 g/dL (3.5-5.1); Alkaline Phosphatase 39 U/L (38-126); Anion Gap 6 mmol/L (4-12); Aspartate Amino Transferase 17 U/L (14-36); Bilirubin,Total 0.7 mg/dL (0.2-1.3); Blood Urea Nitrogen 69 mg/dL (7-17); Carbon Dioxide 17 mmol/L (22-30); Chloride 122 mmol/L (98-107); Estimated CRCL calculation 16 ml/min; Estimated Glomerular Filt Rate 13; Glucose 173 mg/dL (65-110); Potassium 4.2 mmol/L (3.4-5.0); Sodium 145 mmol/L (137-145)
[2024-02-28 05:18] LABS: Glucose Point of Care 150 mg/dl (65-105)
[2024-02-28 06:28] LABS: Alveolar/Arterial O2 Gradient < 0.0 mmHg; Base Excess ABG -5.3 mEq/l (+/-2.0); Carboxyhemoglobin 0.2 % THb (0-2.0); HCO3 ABG 18.3 mEq/l (22.0-26.0); Methemoglobin ABG 0.2 %THb (0-1.5); Oxygen Content ABG 12.9 %vol (16.0-22.0); Oxygen Saturation ABG 99.3 % (95.0-100.0); Oxyhemoglobin 97.6 % THb (90.0-100.0); PCO2 ABG 28.8 mmHg (35.0-45.0); PO2 FiO2 Ratio Arterial Blood > 0.00 %; Total Hemoglobin 9.1 g/dL (12.0-18.0); pH ABG 7.421 (7.350-7.450)
[2024-02-28 06:33] LABS: Device VENTILATOR; Fractional Inspired Oxygen 50 %; Modified Allen's Test Pass; Site Drawn RIGHT RADIAL
[2024-02-28 06:34] LABS: Arterial Blood Gas PEEP 5 cmH2O; Arterial Blood Gas Tidal Volume 400 ml; Arterial Blood Gas Vent Mode CMV; Arterial Blood Gas Ventilator rate 24 /MIN
--- NOTE | 2024-02-28 08:34 | WPDCNINT ---
Assessment and Plan Assessment and plan (1) Acute respiratory failure: Code(s): J96.00 - Acute respiratory failure, unspecified whether with hypoxia or hypercapnia Status: Acute Assessment and Plan: Multifactorial Acute Respiratory failure secondary to pulmonary edema, encephalopathy Patient intubated overnight. ABG reviewed. Decrease respiratory rate to 20 Chest x-ray reviewed and showed Small bilateral pleural effusions with mild to moderate pulmonary edema pattern, right lung asymmetrically worse than left. Correlate clinically for pneumonia. Continue full mechanical ventilation support to prevent hypoxemia/hypercarbia and end organ damage. Low tidal volume ventilation strategy to prevent volutrauma Will attempt SBT when ready to wean. (2) Altered mental status: Code(s): R41.82 - Altered mental status, unspecified Status: Acute Assessment and Plan: Likely toxic metabolic encephalopathy Ammonia and TSH normal Head CT was negative Patient is currently sedated with Versed fentanyl which is now on hold for sedation holiday Prior to intubation patient was moving all 4 extremities A CVA cannot be ruled out at this time unable to perform MRI on him patient on mechanical ventilator and [facility]. It will not exchange clerk at this time Will obtain echo as patient has AFib (3) Acute UTI: Code(s): N39.0 - Urinary tract infection, site not specified Status: Acute Assessment and Plan: Patient has chronic indwelling [place] and has history of UTIs Her WBC and procalcitonin level was normal Cultures have been negative She is on meropenem and vancomycin (4) Chronic indwelling Braswell catheter: Code(s): Z97.8 - Presence of other specified devices Status: Acute Assessment and Plan: Patient has chronic indwelling Braswell which was likely placed due to incontinence as per patient's (5) Dementia: Qualifiers: Dementia type: unspecified type Dementia severity: moderate Dementia behavioral or psychological symptom: with agitation Qualified Code(s): F03.B11 - Unspecified dementia, moderate, with agitation Code(s): F03.90 - Unspecified dementia, unspecified severity, without behavioral disturbance, psychotic disturbance, mood disturbance, and anxiety Status: Acute Assessment and Plan: Patient has baseline dementia (6) Acute kidney injury superimposed on chronic kidney disease: Code(s): N17.9 - Acute kidney failure, unspecified; N18.9 - Chronic kidney disease, unspecified Status: Acute Assessment and Plan: Patient has history of chronic kidney disease which has been gradually worsening worse and appears to be likely multifactorial. Patient now presented with acute renal failure and has volume overload, metabolic acidosis Initiation of dialysis was ordered now discussed and considered by the applications sales consultant. Spoke to patient's daughter and she is agreeable to proceed with hemodialysis. I discussed with applications sales consultant and and will consult General surgery for tunneled dialysis catheter. Patient had normal procalcitonin normal WBC. She had cultures done few days ago which have been negative and patient has been on antibiotics since admission (7) DM type 2 (diabetes mellitus, type 2): Onset Date: ~2018 Qualifiers: Diabetes mellitus bed bug exterminator insulin use: without bed bug exterminator use Diabetes mellitus complication status: without complication Qualified Code(s): E11.9 - Type 2 diabetes mellitus without complications Code(s): E11.9 - Type 2 diabetes mellitus without complications Status: Chronic Assessment and Plan: Continue sliding scale insulin. Hold Lantus at this time until tube feeds are restarted (8) A-fib: Qualifiers: Atrial fibrillation type: unspecified Qualified Code(s): I48.91 - Unspecified atrial fibrillation Code(s): I48.91 - Unspecified atrial fibrillation Status:
[2024-02-28] MEDS: FERROUS SULFATE LIQUID 325 MG/7.4 ML ELIXIR FEED TUBE (09:08)
[2024-02-28] MEDS: ACIDOPHILUS/BULGARICUS CHEWABLE TABLET 1 TABLET PO ×2 (09:08→17:03)
[2024-02-28] MEDS: LANSOPRAZOLE ODT 30 MG TAB.RAP.DR FEED TUBE (09:08)
[2024-02-28] MEDS: ROSUVASTATIN 10 MG TABLET PO (09:08)
[2024-02-28] MEDS: CHOLECALCIFEROL 1,000 UNITS TABLET 2000 UNITS PO (09:08)
[2024-02-28] MEDS: CYANOCOBALAMIN 1,000 MCG TABLET 1000 MCG PO (09:08)
[2024-02-28] MEDS: MEROPENEM 500 MG in SODIUM CHLORIDE 0.9% IV 100 ML 200 ML IVPB ×2 (09:14→21:22)
[2024-02-28] MEDS: MINERAL OIL/WHITE PETROLATUM OINTMENT 1 APPLIC EACH EYE ×2 (09:14→20:36)
[2024-02-28] MEDS: methylPHENIDATE HCL (*CRX) 10 MG TABLET PO (09:31)
--- NOTE | 2024-02-28 10:36 | P.PNNP_ITS ---
Progress Note: A&P Assessment and Plan (1) Chronic kidney disease (CKD), stage V: Code(s): N18.5 - Chronic kidney disease, stage 5 Status: Chronic Assessment and Plan: * creatinine has been running in the 3.2 - 3.6mg/dl range in the last 6 months * slow and ongoing progression of kidney disease over the last 2 years with recent deterioration noted in September 2023 * some concerns regarding possible uremic symptoms (poor oral intake, decreased energy level/increased fatigue, confusion,...etc) recenty * due to her diabetes, hypertension, vascular disease, recurrent nephrolithiasis + UTIs and what essentially appears to be only one kidney providing functionality based on previous imaging * clinical status has deteriorated in the last 24 hours * suspect volume overload a contributing factor with decompensation overight * discussed case with daughter and Dr. Madison -- will proceed with HD today * Surgery consulted for tunneled HD catheter placement * plan HD treatment this afternoon following HD catheter insertion (2) Acute respiratory failure: Code(s): J96.00 - Acute respiratory failure, unspecified whether with hypoxia or hypercapnia Status: Acute Assessment and Plan: * felt to be secondary to pulmonary edema/volume overload and encephalopathy * intubated on the evening of 02/26 * imaging noted - small left pleurial effusion with left lower lobe atelectasis versus pneumonia * continue mechanical ventilatior support * ventilator weaning as tolerated * on antibiotics (3) Altered mental status: Code(s): R41.82 - Altered mental status, unspecified Status: Acute Assessment and Plan: * as noted on admission and at nursing facility * presumably due to #3 (but cannot deny an aspect of uremia as well) * follow mentation with treatment of acute issues (4) Acute UTI: Code(s): N39.0 - Urinary tract infection, site not specified Status: Acute Assessment and Plan: * admission urinalysis highly suggestive * complicated by indwelling catheter * on antibiotics * follow culture data (5) Benign essential hypertension: Code(s): I10 - Essential (primary) hypertension Status: Chronic Assessment and Plan: * reasonable control at this time * follow trend of hemodynamics (6) Anemia: Code(s): D64.9 - Anemia, unspecified Status: Chronic Assessment and Plan: * due to underlying CKD and acute illness * follow trend of H/H * consider empiric CHELITA while hospitalized (7) Metabolic acidosis: Code(s): E87.20 - Acidosis, unspecified Status: Acute Assessment and Plan: * on bicarbonate fluids to compensate * dialysis should help with this as well (8) DM type 2 (diabetes mellitus, type 2): Onset Date: ~2018 Qualifiers: Diabetes mellitus complication status: without complication Diabetes mellitus skilled nursing insulin use: without termination clerk use Qualified Code(s): E11.9 - Type 2 diabetes mellitus without complications Code(s): E11.9 - Type 2 diabetes mellitus without complications Status: Chronic Assessment and Plan: * follow accu-cheks * glycemic control per hospitalists Will continue to follow. Subjective Date/time seen: 02/28/24 10:36 Interval history: Follow-up for chronic kidney disease. Events noted - rapid response due to altered mental status and poor respiratory status; intubated for airway protection but maintained stable hemodynamics; CT of head unrev
--- NOTE | 2024-02-28 10:36 | PM.PNNEP ---
Progress Note: A&P Assessment and Plan (1) Chronic kidney disease (CKD), stage V: Code(s): N18.5 - Chronic kidney disease, stage 5 Status: Chronic Assessment and Plan: creatinine has been running in the 3.2 - 3.6mg/dl range in the last 6 months slow and ongoing progression of kidney disease over the last 2 years with recent deterioration noted in September 2023 some concerns regarding possible uremic symptoms (poor oral intake, decreased energy level/increased fatigue, confusion,...etc) recenty due to her diabetes, hypertension, vascular disease, recurrent nephrolithiasis + UTIs and what essentially appears to be only one kidney providing functionality based on previous imaging clinical status has deteriorated in the last 24 hours suspect volume overload a contributing factor with decompensation overight discussed case with daughter and Dr. Madison -- will proceed with HD today Surgery consulted for tunneled HD catheter placement plan HD treatment this afternoon following HD catheter insertion (2) Acute respiratory failure: Code(s): J96.00 - Acute respiratory failure, unspecified whether with hypoxia or hypercapnia Status: Acute Assessment and Plan: felt to be secondary to pulmonary edema/volume overload and encephalopathy intubated on the evening of 02/26 imaging noted - small left pleurial effusion with left lower lobe atelectasis versus pneumonia continue mechanical ventilatior support ventilator weaning as tolerated on antibiotics (3) Altered mental status: Code(s): R41.82 - Altered mental status, unspecified Status: Acute Assessment and Plan: as noted on admission and at nursing facility presumably due to #3 (but cannot deny an aspect of uremia as well) follow mentation with treatment of acute issues (4) Acute UTI: Code(s): N39.0 - Urinary tract infection, site not specified Status: Acute Assessment and Plan: admission urinalysis highly suggestive complicated by indwelling catheter on antibiotics follow culture data (5) Benign essential hypertension: Code(s): I10 - Essential (primary) hypertension Status: Chronic Assessment and Plan: reasonable control at this time follow trend of hemodynamics (6) Anemia: Code(s): D64.9 - Anemia, unspecified Status: Chronic Assessment and Plan: due to underlying CKD and acute illness follow trend of H/H consider empiric CHELITA while hospitalized (7) Metabolic acidosis: Code(s): E87.20 - Acidosis, unspecified Status: Acute Assessment and Plan: on bicarbonate fluids to compensate dialysis should help with this as well (8) DM type 2 (diabetes mellitus, type 2): Onset Date: ~2018 Qualifiers: Diabetes mellitus complication status: without complication Diabetes mellitus prison insulin use: without prison use Qualified Code(s): E11.9 - Type 2 diabetes mellitus without complications Code(s): E11.9 - Type 2 diabetes mellitus without complications Status: Chronic Assessment and Plan: follow accu-cheks glycemic control per hospitalists Will continue to follow. Subjective Date/time seen: 02/28/24 10:36 Interval history: Follow-up for chronic kidney disease. Events noted - rapid response due to altered mental status and poor respiratory status; intubated for airway protection but maintained stable hemodynamics; CT of head unrevealing and subsequently transferred to ICU for care; daughter at bedside and we discussed the situation; patient remains intubated/sedated and on mechanical ventilation at this time. Exam Narrative: General: elderly female intubated/sedated and on mechanical ventilation Heart: normal S1 and S2; no rub Lungs: coarse breath sounds Abdomen: soft, nontender, nondistended, positive bowel sounds Extremities: no cyanosis or clubbing; 1+ edema
[2024-02-28 10:43] LABS: Hepatitis B Core Ab Total NON-REACTIVE (NON-REACTIVE)
--- NOTE | 2024-02-28 11:02 | PM.CNGS ---
Assessment and Plan Assessment and plan (1) Chronic kidney disease (CKD), stage V: Code(s): N18.5 - Chronic kidney disease, stage 5 Status: Chronic Assessment and Plan: Patient with acute on chronic kidney disease. Nephrology following and planning to initiate hemodialysis. They have requested our service to place a tunneled hemodialysis catheter. The patient is intubated and sedated in the ICU, but plan was discussed with her daughter at the bedside. Description of the procedure, risks, benefits, alternative, and expected recovery were discussed with the patient in detail. The patient's daughter agrees to proceed with surgery. Will keep her NPO and plan to add her onto the surgery schedule today. She typically takes Eliquis for atrial fibrillation, which has been on hold for at least the last 3 days while admitted. (2) Acute respiratory failure: Code(s): J96.00 - Acute respiratory failure, unspecified whether with hypoxia or hypercapnia Status: Acute (3) Metabolic acidosis: Code(s): E87.20 - Acidosis, unspecified Status: Acute (4) Acute UTI: Code(s): N39.0 - Urinary tract infection, site not specified Status: Acute (5) Altered mental status: Code(s): R41.82 - Altered mental status, unspecified Status: Acute (6) Dementia: Qualifiers: Dementia type: unspecified type Dementia severity: moderate Dementia behavioral or psychological symptom: with agitation Qualified Code(s): F03.B11 - Unspecified dementia, moderate, with agitation Code(s): F03.90 - Unspecified dementia, unspecified severity, without behavioral disturbance, psychotic disturbance, mood disturbance, and anxiety Status: Acute (7) DM type 2 (diabetes mellitus, type 2): Onset Date: ~2018 Qualifiers: Diabetes mellitus senior care insulin use: without buttermaker continuous churn use Diabetes mellitus complication status: without complication Qualified Code(s): E11.9 - Type 2 diabetes mellitus without complications Code(s): E11.9 - Type 2 diabetes mellitus without complications Status: Chronic (8) A-fib: Qualifiers: Atrial fibrillation type: unspecified Qualified Code(s): I48.91 - Unspecified atrial fibrillation Code(s): I48.91 - Unspecified atrial fibrillation Status: Acute Plan I have discussed the patient's case and plan of care with Dr. Jean. Thank you for allowing us to see the patient in consultation. History of Present Illness Consult details Consult date: 02/28/24 Reason for consult: other (Tunneled dialysis catheter placement) Requesting physician: Edison Madison MD Narrative: This is a 78-year-old female with a history of dementia, stage 5 chronic kidney disease not currently on dialysis, CHF, and multiple other medical problems, who we have been asked to see in surgical consultation for a tunneled dialysis catheter placement. She presented to the ER for increased confusion and combative behaviors on 02/25/2024 from the custodial. She was admitted for UTI, metabolic encephalopathy, and acute on chronic renal failure. Last night, the patient was found unresponsive and had a rapid response called. She acute respiratory failure and was intubated, and is currently in the ICU. She is sedated and intubated with her daughter at the bedside. She had a CT scan of the head that was negative for any acute findings. Unable to get an MRI due to intubation. She was swabbed for MRSA in the nares due to ICU transfer, and was found positive. Therefore, she is on contact precautions. She also has chronic atrial fibrillation on Eliquis, which has been held since her admission. She has not received Eliquis for at least the last 3 days. Nephrology is following and plans to initiate hemodialysis. Her daughter denies a history of dialysis for the patient. Nephrology is consulted our service for tunneled dialysis catheter placement. Blood cultures we
--- NOTE | 2024-02-28 11:05 | PCNFU ---
Nutrition Follow-Up Complete: Inadequate oral intake related to loss of appetite as evidenced by refusal of meals, low intakes goal: Adequate PO intake at least 50% meals and supplements Goal not obtained. New goal: meet estimated nutritional needs. Pt current nutrition is Nepro at 40 ml/hr. Last recorded weight is 106.4 kg, no new weight to report. Bowel Motility: +BM reported 5/5 Labs Reviewed:Glu 173, GFR 13, BUN 69, Cr 3.5,Alb 2.9,Hct 26.9,Hgb 8.2 Meds Noted:Fentanyl, Versed, Vit D, Crestor, Miralax Skin: WNL Additional Notes: Patient current with mechanical ventilator. Plans for tunneled catheter today. Tube feedings to start of Nepro at 40 ml/hr-1584 kcals/72 gms protein/640 ml water. Flush at 30 ml q 4 hours. Agree with tube feeding start at this time. Monitoring intakes, weights, labs, supplement tolerance, plan of care every Tuesday and Tuesday.
[2024-02-28 11:15] LABS: Glucose Point of Care 132 mg/dl (65-105)
--- NOTE | 2024-02-28 11:52 | WPDANESEPPF ---
Anes - Initial Pre Proc Eval Procedure: Operation Date: 02/28/24 12:00 Proposed Procedures p Insertion Tunneled Dialysis Catheter - Naomi Jean MD Date/Time: 02/28/24 11:52 Surgeon: Eduarda Flores DO Pre Op Diagnosis: UTI, altered mental status, chronic renal insuffic Patient Data Age: 78 Gender: F Height: 1.75 m Weight: 106.4 kg Last Vital Signs Temp 97.7 F 02/28/24 11:00 Pulse 62 02/28/24 11:21 Resp 20 02/28/24 11:00 BP 98/72 L 02/28/24 11:00 Pulse Ox 100 02/28/24 11:21 O2 Del Method Mechanical Ventilation 02/28/24 11:21 O2 Flow Rate 15 02/27/24 19:45 FiO2 30 02/28/24 11:21 Allergies Allergy/AdvReac Type Severity Reaction Status Date / Time Sulfa (Sulfonamide Allergy Severe Rash Verified 02/16/24 15:13 Antibiotics) Home Medications Medication Instructions Recorded Confirmed Type cyanocobalamin (vitamin B-12) 1,000 mcg PO DAILY 08/18/20 02/25/24 History 1,000 mcg tablet Lactobacillus acidoph-pectin 1 cap PO BID 01/11/22 02/25/24 History [Acidophilus-Pectin] ferrous sulfate 324 mg (65 mg 324 mg PO EVERY OTHER DAY 01/11/22 02/25/24 History iron) tablet,delayed release cetirizine 10 mg capsule (Allergy 10 mg PO HS 02/16/22 02/25/24 History Relief (cetirizine)) tolnaftate 1 % topical powder 1 applic topical Q12HR PRN Rash 03/18/22 02/26/24 History blood-glucose sensor (FreeStyle #1 ea 01/12/23 02/26/24 Rx Robbi 3 Sensor device) zolpidem 5 mg tablet 5 mg PO QHS 03/23/23 02/26/24 History flash glucose sensor (FreeStyle #1 ea 08/22/23 02/26/24 Rx Robbi 14 Day Sensor kit) levomefolate calcium 15 mg tablet 15 mg PO DAILY #90 tabs 08/23/23 02/25/24 Rx (L-Methylfolate) flash glucose sensor (FreeStyle #1 ea 09/09/23 02/26/24 Rx Robbi 2 Sensor kit) isosorbide dinitrate 10 mg tablet 10 mg PO BID #180 tabs 12/19/23 02/25/24 Rx rosuvastatin 10 mg tablet (Crestor) 10 mg PO DAILY #90 tabs 12/19/23 02/26/24 Rx cholecalciferol (vitamin D3) 50 50 mcg PO DAILY 01/16/24 02/25/24 History mcg (2,000 unit) capsule cranberry 500 mg capsule 500 mg PO DAILY 01/16/24 02/25/24 History hydralazine 25 mg tablet 25 mg PO TID 01/16/24 02/25/24 History lidocaine 4 % topical patch 3 patch topical DAILY PRN Pain 01/16/24 02/26/24 History miconazole nitrate 2 % topical 1 applic topical BID PRN Vaginal 01/16/24 02/26/24 History cream (Antifungal (miconazole)) Irritation polyethylene glycol 3350 17 17 g PO DAILY PRN Constipation 01/16/24 02/26/24 History gram/dose oral powder docusate sodium 100 mg capsule 200 mg PO BID PRN Constipation 01/17/24 02/25/24 History (Colace) insulin aspart U-100 100 unit/mL See Rx Instructions subcut .COMPLEX 01/17/24 02/26/24 History subcutaneous solution (Novolog U-100 Insulin aspart) tramadol 50 mg tablet 50 mg PO Q6H PRN Pain (Scale Score 01/18/24 02/26/24 History 7-10) nitroglycerin 0.4 mg sublingual 0.4 mg sublingual Q5M PRN Chest 02/03/24 02/26/24 Rx tablet Pain #25 tabs pen needle, diabetic 32 gauge x #100 ea 02/03/24 02/26/24 Rx 5/32 (BD Lindsay 2nd Gen Pen Needle) amlodipine 10 mg tablet 10 mg PO DAILY #90 tabs 02/08/24 02/25/24 Rx acetaminophen 500 mg tablet 500 mg PO TID 02/16/24 02/25/24 History apixaban 2.5 mg tablet (Eliquis) 2.5 mg PO BID #180 tabs 02/17/24 02/25/24 Rx aripiprazole 2 mg tablet 2 mg PO QHS 02/26/24 02/25/24 History estradiol 0.01% (0.1 mg/gram) 1 g vaginal 2XW 02/26/24 02/26/24 History vaginal cream fluconazole 150 mg tablet 150 mg PO DAILY PRN Disinfection 02/26/24 02/25/24 History insulin glargine 100 unit/mL (3 10 unit subcut QAM 02/26/24 02/25/24 History mL) subcutaneous pen (Basaglar KwikPen U-100 Insulin) methylphenidate HCl 10 mg tablet 10 mg PO BIDWMEAL 02/26/24 02/26/24 History metoprolol succinate 50 mg 50 mg PO QHS 02/26/24 02/26/24 History tablet,extended release 24 hr nystatin 100,000 unit/gram topical 1 applic topical BID 02/26/24 02/26/24 History powder
--- NOTE | 2024-02-28 12:10 | PC.NURSE ---
Patient accompanied to surgery per RT and myself. No issues noted. Equal chest rise present at time of surgical drop off. Report given to anesthesiology.
[2024-02-28] MEDS: HEPARIN SODIUM, PORCINE 10,000 UNITS/10 ML VIAL 10000 UNITS IRRIGATION (12:11)
[2024-02-28] MEDS: LIDO 1%/EPINEPHRINE 1:100,000 50 ML VIAL 10 ML INFILTRATE (12:11)
--- NOTE | 2024-02-28 12:16 | WPDHPUPDATE1 ---
History and Physical Update Update Date/Time: 02/28/24 12:16 History and Physical has been reviewed, including an updated exam of the patient. There are NO changes in the patient's condition. Risks, benefits, and alternatives have been discussed and questions answered. Patient agrees to proceed with procedure.
--- NOTE | 2024-02-28 13:01 | P.OP_ITS ---
Procedure Note - Detailed Date of Procedure 02/28/24 Pre-op Diagnosis renal failure Post-op Diagnosis Same Procedure Performed placement of 28 cm tunneled hemodialysis catheter in right internal jugular vein under both ultrasound and fluroscopic guidance Surgeon Naomi Jean MD Anesthesia General and Local Indications 78-year-old female with multiple medical issues including acute renal failure, acute respiratory failure now needing emergent dialysis access. Findings First stick right internal jugular vein via ultrasound guidance Description of Procedure Patient was taken to the operating room and placed in the supine position. After adequate induction of general anesthesia, the patient was prepped and draped in normal sterile fashion. A time-out was then done to verify the patient's identity as well as the procedure being performed. I began by using the SonoSite and locating the right internal jugular vein. Once this was done, I localized the overlying skin. I then made a small incision in the skin. I then gained access into the right internal jugular vein with an 18 gauge needle. At this point, I threaded the guidewire into the right internal jugular vein. Placement of the guidewire was confirmed by both ultrasound and fluoroscopic guidance. I then went ahead and measured the 28 cm tunneled dialysis catheter to our stick site in the right neck. I then localized the tract going from the right chest to the right neck. I then made a small incision in the right chest and tunneled the catheter to the right neck. I then serially dilated the right internal jugular vein under fluoroscopic guidance. Once adequately dilated, I placed the dilating sheath over the guidewire into the right internal jugular vein under fluoroscopic visualization. Once this was noted to be in good position, I removed both the guidewire and dilator, now just leaving the sheath in the vein. I then went ahead and fed the previously tunneled catheter into the sheath. Once the catheter was fed and positioned correctly, I went ahead and peeled the sheath away. Final fluoroscopic view showed the catheter in good position from its insertion point in the right chest to its termination in the a trial caval junction. It was noted there was no kinking of the catheter. I was able to easily draw and flush from both ports of the catheter. I placed 2.2 and 2.3 cc of final heparin flush into each port as marked. The catheter was then sutured into place and the incision in the neck was closed with 4 O Monocryl subcuticular suture. The patient tolerated the procedure well and will be transferred to the ICU in critical condition. Sterile dressing was placed on the catheter. Portable chest x-ray will be done in the ICU. Implants 28 cm tunneled hemodialysis catheter Estimated Blood Loss 10 Drains No Packing No Pathology None sent Complications No immediate complications Condition Critical Disposition ICU [facility] Billing Surgery - Charge Forward: Surgery Billing
[2024-02-28] MEDS: HEPARIN SODIUM 5,000 UNITS/ML VIAL 5000 UNITS SUB-Q (13:19)
[2024-02-28] MEDS: ALBUMIN HUMAN 25% 12.5 GM/50ML 50 ML IVPB ×2 (15:20→16:07)
[2024-02-28] MEDS: EPOETIN ALFA-EPBX 10,000 UNITS/ML VIAL 10000 UNITS IV PUSH (15:34)
[2024-02-28] MEDS: SODIUM CHLORIDE 0.9% IV 1,000 ML 999 ML IV CONT (15:35)
--- NOTE | 2024-02-28 16:26 | PM.EVENT ---
Event Note Event Note Event Note: Patient seen/evaluated on hemodialysis treatment (seen on HD at 4:15PM). Tolerating treatment reasonably well without any issuews or problems.
--- NOTE | 2024-02-28 16:50 | P.PNIM_ITS ---
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 * Monitor CBC, CMP watch for sepsis. * Monitor vital signs. 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 Acute on chronic renal failure * Stage 5 * CR 3.9 POA * Not currently on dialysis * Gentle IV hydration. * nephrology consulted * Planned Metabolic encephalopathy secondary to UTI/delirium and chronic dementia * CTA head negative for any acute issues * Will treat UTI * Head was negative ammonia and TSH is normal CVA cannot be ruled out at this time unable to perform MRI. Diabetes * Accu-Cheks a.c. HS * sliding scale insulin * hold oral diabetic medications * resume patient's home long-acting * Diabetic diet * Optimize Vinicio inhibitors and statins. * Watch for hypoglycemia/hypoglycemic protocol ordered Iron deficiency anemia * Hemoglobin 8.4 POA * Likely secondary to iron deficiency and end-stage renal disease * No overt bleeding * H&H daily * Transfuse PRBC HGB < 7.0 * Resumed iron supplements HX HTN: Resumed BB, amlodapine and hydralazine/Monitor BP per unit protocol HX Dementia: Resumed home medications Acute failure: Multifactorial likely secondary pathology. Intubated overnight. ICU is for pneumonia. Chronic indwelling place Chronic atrial fibrillation rate control Eliquis on hold due to invasive procedure Code status: Full code per patient DVT prophylaxis: Eliquis Stress ulcer prophylaxis: Protonix 40 daily PT/OT notes: Disposition: Await medical stability Subjective Date/time seen: 02/28/24 16:50 Interval history: Overnight events noted. Patient intubated and on vent. Plan for dialysis catheter placement and initiation of hemodialysis noted. Discussed with the nursing staff. Patient's family at bedside and discussed with her. Review of Systems Review of Systems: ROS unobtainable: Yes unobtainable due to endotracheal tube and unobtainable due to mental status Exam Narrative: General: Pt is sedated, intubated and on mechanical ventilation Lungs/Chest: Trachea central Coarse BS B/L, No crackles or wheezing. Cardiac: RRR. Normal S1 S2. No murmurs Circulation: Pedal pulses are intact and symmetrical. Abdomen: Decreased bowel sounds. Obese. Soft. NT. ND. Extremities: No clubbing, cyanosis. Warm. Bilateral pitting : Braswell in place Neurologic: Unable to assess due to sedation. PERRL Objective Data Vital Signs Vi
--- NOTE | 2024-02-28 16:50 | PM.IMPN ---
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 Monitor CBC, CMP watch for sepsis. Monitor vital signs. 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 Acute on chronic renal failure Stage 5 CR 3.9 POA Not currently on dialysis Gentle IV hydration. nephrology consulted Planned Metabolic encephalopathy secondary to UTI/delirium and chronic dementia CTA head negative for any acute issues Will treat UTI Head was negative ammonia and TSH is normal CVA cannot be ruled out at this time unable to perform MRI. Diabetes Accu-Cheks a.c. HS sliding scale insulin hold oral diabetic medications resume patient's home long-acting Diabetic diet Optimize Vinicio inhibitors and statins. Watch for hypoglycemia/hypoglycemic protocol ordered Iron deficiency anemia Hemoglobin 8.4 POA Likely secondary to iron deficiency and end-stage renal disease No overt bleeding H&H daily Transfuse PRBC HGB < 7.0 Resumed iron supplements HX HTN: Resumed BB, amlodapine and hydralazine/Monitor BP per unit protocol HX Dementia: Resumed home medications Acute failure: Multifactorial likely secondary pathology. Intubated overnight. ICU is for pneumonia. Chronic indwelling place Chronic atrial fibrillation rate control Eliquis on hold due to invasive procedure Code status: Full code per patient DVT prophylaxis: Eliquis Stress ulcer prophylaxis: Protonix 40 daily PT/OT notes: Disposition: Await medical stability Subjective Date/time seen: 02/28/24 16:50 Interval history: Overnight events noted. Patient intubated and on vent. Plan for dialysis catheter placement and initiation of hemodialysis noted. Discussed with the nursing staff. Patient's family at bedside and discussed with her. Review of Systems Review of Systems: ROS unobtainable: Yes unobtainable due to endotracheal tube and unobtainable due to mental status Exam Narrative: General: Pt is sedated, intubated and on mechanical ventilation Lungs/Chest: Trachea central Coarse BS B/L, No crackles or wheezing. Cardiac: RRR. Normal S1 S2. No murmurs Circulation: Pedal pulses are intact and symmetrical. Abdomen: Decreased bowel sounds. Obese. Soft. NT. ND. Extremities: No clubbing, cyanosis. Warm. Bilateral pitting : Braswell in place Neurologic: Unable to assess due to sedation. PERRL Objective Data Vital Signs Vital Signs: Vital Signs - 24 hr 02/27/24 20:12 02/27/24 20:14 02/27/24 20:22 Temperature 98.2 F Pulse Rate 98 120 H Respiratory Rate 16 18 Blood Pressure 126/75 157/66 H Pulse Oximetry 97 100 Oxygen Delivery Oxygen Flow Rate Fraction of Inspired Oxygen 100 02/27/24 20:00 02/27/24 21:21 02/27/24 20:15 Temperature Pulse Rate 122 H 96 122 H Respiratory Rate 26 H Blood Pressure Pulse Oximetry 100 Oxygen Delivery Mechanical Ventilation Oxygen Flow Rate Fraction of Inspired Oxygen 100 02/27/24 20:15 02/27/24 22:
[2024-02-28 17:12] LABS: Glucose Point of Care 120 mg/dl (65-105)
[2024-02-28] MEDS: SODIUM BICARBONATE 8.4% 150 MEQ in DEXTROSE 5% 1,000 ML 950 ML 50 MEQ IV CONT (20:37)
[2024-02-28] MEDS: INSULIN GLARGINE (*BKC) 100 UNITS/ML 10 UNITS SUB-Q (20:37)
[2024-02-28 20:50] LABS: Glucose Point of Care 118 mg/dl (65-105)
[2024-02-28 22:08] LABS: Base Excess ABG 0.2 mEq/l (+/-2.0); Carboxyhemoglobin 0.9 % THb (0-2.0); Fractional Inspired Oxygen 30 %; HCO3 ABG 24.2 mEq/l (22.0-26.0); Methemoglobin ABG 0.3 %THb (0-1.5); Oxygen Content ABG 11.8 %vol (16.0-22.0); Oxygen Saturation ABG 97.3 % (95.0-100.0); Oxyhemoglobin 96.1 % THb (90.0-100.0); PCO2 ABG 36.2 mmHg (35.0-45.0); PO2 ABG 91.5 mmHg (80.0-100.0); PO2 FiO2 Ratio Arterial Blood 3.05 %; Reduced Hemoglobin 2.7 %THb (0-5.0); Total Hemoglobin 8.6 g/dL (12.0-18.0); pH ABG 7.443 (7.350-7.450)
[2024-02-28 22:14] LABS: Device VENTILATOR; Modified Allen's Test Pass; Site Drawn RIGHT RADIAL
[2024-02-28 22:15] LABS: Arterial Blood Gas PEEP 5 cmH2O; Arterial Blood Gas Vent Mode CMV; Arterial Blood Gas Ventilator rate 20 /MIN
[2024-02-28 22:16] LABS: Arterial Blood Gas Tidal Volume 400 ml
[2024-02-28 23:37] LABS: Vancomycin Random 10.1 ug/mL (10-20)
[2024-02-29] VITALS (53 sets, daily range): BP systolic 88–172; BP diastolic 57–102; PULSE 7–116; RESP 18–32; TEMP 36.3–37.1; O2SAT 92–100
--- NOTE | 2024-02-29 | ECHO_ITS ---
Patient Info Name: Maria R Barrientos Age: 78 years : 1945 Gender: Female Ht: 69 in Wt: 243 lbs BSA: 2.36 m2 HR: 99 bpm BP: 123 / 66 mmHg Heart Rhythm: Atrial Fibrillation, Tachycardia Technical Quality: Poor Exam Date: 02/29/2024 2:56 PM Exam Location: Echo Lab Patient Status: Inpatient Admit Date: 02/25/2024 Staff Ordering Physician: Edison Madison MD Medical Technologist Microbiology: Cleo Nash RDCS Attending Provider: Eduarda Flores DO Exam Type: CA echo doppler color flow Study Info Indications - respiratory failure Complete two-dimensional, color flow and Doppler transthoracic echocardiogram is performed. Reason for Poor Study: poor patient cooperation Summary 1. Technically difficult study. 2. Left ventricular chamber dimension is normal. 3. Left ventricular systolic function is lower limits of normal, estimated at 50-55%. 4. There is mildly increased left ventricular wall thickness. 5. Right ventricular systolic function is normal. 6. Left atrial chamber dimension is severely enlarged. 7. Right atrial chamber dimension is mildly enlarged. 8. There is mild aortic valve regurgitation. 9. There is mild mitral valve regurgitation. 10. There is mild to moderate tricuspid valve regurgitation. 11. Pericardial effusion is present. Pericardial effusion is trivial in size anteriorly, and is small in size posteriorly. 12. Left pleural effusion present. Left Ventricle Left ventricular chamber dimension is normal. Left ventricular systolic function is lower limits of normal, estimated at 50-55%. There is mildly increased left ventricular wall thickness. Right Ventricle Right ventricular chamber dimension is normal. Right ventricular systolic function is normal. Left Atria Left atrial chamber dimension is severely enlarged. Right Atria Right atrial chamber dimension is mildly enlarged. Atrial Septum Intact interatrial septum visualized by color flow imaging. Aortic Valve The aortic valve is trileaflet. There is no aortic valve stenosis. There is mild aortic valve regurgitation. There is mild aortic valve calcification. Pulmonic Valve The pulmonic valve is not well visualized. There is trace pulmonic regurgitation. Mitral Valve There is mild mitral valve regurgitation. Tricuspid Valve There is mild to moderate tricuspid valve regurgitation. Pericardium/Pleural Pericardial effusion is present. Pericardial effusion is trivial in size anteriorly, and is small in size posteriorly. Left pleural effusion present. Inferior Vena Cava Normal inferior vena cava with <50% collapse upon inspiration consistent with elevated right atrial pressure, 8 mmHg. Aorta The aortic root size at the sinus of Valsalva is normal. Left Ventricular Outflow Tract Name Value Normal LVOT 2D LVOT Diameter 2.1 cm LVOT Doppler LVOT Peak Gradient 4 mmHg LVOT Mean Gradient 3 mmHg LVOT VTI 19 cm LVOT VTI/AV VTI Ratio 0.6 LVOT Stroke Volume 70 ml LVOT CO 7.6 l/min LVOT CI 3.2 l/min/m2 Pulmonic Va
[2024-02-29] MEDS: METOPROLOL TARTRATE INJ 5 MG/5 ML VIAL IV PUSH ×2 (00:22→05:53)
[2024-02-29] MEDS: VANCOMYCIN 1,500 MG/NS 500 ML 1,500 MG/500 ML BAG 250 MG IVPB (00:26)
[2024-02-29 01:17] LABS: Glucose Point of Care 149 mg/dl (65-105)
[2024-02-29 04:02] LABS: Hematocrit 26.9 % (37.0-47.0); Hemoglobin 8.2 g/dL (12.0-15.0); Mean Corpuscular HGB Conc 30.5 g/dl (32-36); Mean Corpuscular Hemoglobin 29.3 pg (26-34); Mean Corpuscular Volume 96.1 fl (80-100); Mean Platelet Volume 11.1 fl (7.4-10.4); Platelet Count Result 139 k/mm3 (150-375); Red Cell Distribution Width 15.6 % (11.5-14.5); White Blood Count 4.1 K/mm3 (4.5-10.0)
[2024-02-29 04:19] LABS: Alanine Aminotransferase 10 U/L (6-35); Alkaline Phosphatase 42 U/L (38-126); Anion Gap 5 mmol/L (4-12); Aspartate Amino Transferase 18 U/L (14-36); Bilirubin,Total 0.7 mg/dL (0.2-1.3); Blood Urea Nitrogen 47 mg/dL (7-17); Calcium 10.2 mg/dL (8.4-10.2); Carbon Dioxide 27 mmol/L (22-30); Chloride 113 mmol/L (98-107); Estimated CRCL calculation 21 ml/min; Estimated Glomerular Filt Rate 16; Glucose 147 mg/dL (65-110); Potassium 3.6 mmol/L (3.4-5.0); Sodium 145 mmol/L (137-145)
[2024-02-29 05:50] LABS: Base Excess ABG 1.9 mEq/l (+/-2.0); Carboxyhemoglobin 0.9 % THb (0-2.0); Fractional Inspired Oxygen 30 %; HCO3 ABG 26.4 mEq/l (22.0-26.0); Methemoglobin ABG 0.3 %THb (0-1.5); Oxygen Content ABG 12.4 %vol (16.0-22.0); Oxygen Saturation ABG 97.6 % (95.0-100.0); Oxyhemoglobin 96.6 % THb (90.0-100.0); PCO2 ABG 40.7 mmHg (35.0-45.0); PO2 ABG 98.4 mmHg (80.0-100.0); PO2 FiO2 Ratio Arterial Blood 3.28 %; Reduced Hemoglobin 2.2 %THb (0-5.0)
[2024-02-29 05:53] LABS: Device VENTILATOR; Modified Allen's Test Pass; Site Drawn LEFT RADIAL
[2024-02-29] MEDS: LANSOPRAZOLE ODT 30 MG TAB.RAP.DR FEED TUBE (05:53)
[2024-02-29 05:54] LABS: Arterial Blood Gas PEEP 5 cmH2O; Arterial Blood Gas Tidal Volume 400 ml; Arterial Blood Gas Vent Mode CMV; Arterial Blood Gas Ventilator rate 20 /MIN
[2024-02-29 06:03] LABS: Glucose Point of Care 131 mg/dl (65-105)
--- NOTE | 2024-02-29 08:06 | WPDINTPN ---
Progress Note: A&P Assessment and Plan (1) Acute respiratory failure: Code(s): J96.00 - Acute respiratory failure, unspecified whether with hypoxia or hypercapnia <Sheyla RavinderAsim Christensen, Student - Last Filed: 02/29/24 10:45> Status: Acute <Sheyla Parnellliz Student - Last Filed: 02/29/24 10:45> Assessment and Plan: Multifactorial Acute Respiratory failure secondary to pulmonary edema, encephalopathy Patient intubated overnight 02/26. ABG reviewed.?pH 7.43, CO2 41, HCO3 26 CXR with small left pleural effusion with left lower lobe atelectasis versus pneumonia. Continue full mechanical ventilation support to prevent hypoxemia/hypercarbia and end organ damage. Settings PEEP 5, FiO2 30 Low tidal volume ventilation strategy to prevent volutrauma Will attempt SBT when ready to wean. DC vancomycin Continue meropenum <Sheyla Christensen, Student - Last Filed: 02/29/24 10:45> Multifactorial Acute Respiratory failure secondary to pulmonary edema, encephalopathy Patient intubated overnight 02/26. ABG reviewed.?pH 7.43, CO2 41, HCO3 26 CXR with small left pleural effusion with left lower lobe atelectasis versus pneumonia. Continue full mechanical ventilation support to prevent hypoxemia/hypercarbia and end organ damage. Settings PEEP 5, FiO2 30 Low tidal volume ventilation strategy to prevent volutrauma Will attempt SBT when ready to wean. DC vancomycin. Continue meropenum <Edison Madison MD - Last Filed: 02/29/24 11:33> (2) Altered mental status: Code(s): R41.82 - Altered mental status, unspecified <Sheyla CastellonAsim Amparo, Student - Last Filed: 02/29/24 10:45> Status: Acute <Sheyla CastellonAsim Amparo, Student - Last Filed: 02/29/24 10:45> Assessment and Plan: Likely toxic metabolic encephalopathy. -Ammonia and TSH normal -Head CT was negative -Possible UTI with suggestive UA. However / urine culture negative. Patient has chronic indwelling Braswell and has history of UTIs. She is on antibiotics meropenem and vancomycin -Her WBC and procalcitonin level was normal -/ Blood culture with no growth to date -Patient is currently sedated with Versed fentanyl which is now on hold for sedation holiday -Prior to intubation patient was moving all 4 extremities. A CVA cannot be ruled out at this time unable to perform MRI on him patient on mechanical ventilator and [facility].? 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 -Ammonia and TSH normal -Head CT was negative -Possible UTI with suggestive UA. However / urine culture negative. Patient has chronic indwelling Braswell and has history of UTIs. She is on antibiotics as above -Her WBC and procalcitonin level was normal -5/4 Blood culture with no growth to date -Patient is currently sedated with Versed fentanyl which is now on hold for sedation holiday -Prior to intubation patient was moving all 4 extremities. A CVA cannot be ruled out at this time unable to perform MRI on him patient on mechanical ventilator and [facility].? 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 Creatinine has been running in the 3.2 - 3.6mg/dl range in the last 6 months -Some concern for uremic symptoms recently -Nephrology following -LAMP [employer]ER/dialysis in the near future -Continue sodium bicarbonate supplementation -D
[2024-02-29 08:12] LABS: Vancomycin Trough 28.7 ug/mL (10.0-20.0)
--- NOTE | 2024-02-29 08:37 | WPDANESPN ---
Anes - Prog Note Post-Op Date/Time: 02/29/24 08:37 Cardiovascular status: normal Respiratory status: normal Airway patency: other (Remains intubated) Mental status: other (sedated) Post-Op hydration status: other (currently being dialyzed) Vital Signs: Last Vital Signs Temp 36.9 C 02/29/24 07:44 Pulse 71 02/29/24 08:09 Resp 22 H 02/29/24 07:44 BP 119/78 02/29/24 08:00 Pulse Ox 100 02/29/24 08:09 O2 Del Method Mechanical Ventilation 02/29/24 08:09 O2 Flow Rate 8 02/29/24 07:39 FiO2 30 02/29/24 08:09 Pain Score (VAS): 0 I/O: Intake & Output 02/28/24 02/29/24 02/29/24 23:59 07:59 15:59 Intake Total 914.4 1345 Output Total 2950 250 Balance -2035.6 1095 Laboratory Tests 02/29/24 03:58 02/29/24 03:58 02/27/24 02/28/24 02/28/24 05:13 11:04 17:02 WBC RBC Hgb Hct MCV MCH MCHC RDW Plt Count MPV Puncture Site ABG pH ABG pCO2 ABG pO2 ABG PO2/FiO2 Ratio ABG HCO3 ABG O2 Saturation ABG O2 Content ABG Base Excess A-a Gradient Oxyhemoglobin Carboxyhemoglobin Methemoglobin Reduced Hemoglobin Total Hemoglobin O2 Delivery Device O2 Liters/Min Minute Volume Vent Rate Vent Mode FiO2 Tidal Volume PEEP Peak Inspir Pressure Pressure Support Sodium Potassium Chloride Carbon Dioxide Anion Gap BUN Creatinine Estim Creat Clear Calc Estimated GFR Glucose POC Capillary Glucose 132 H 120 H Calcium Total Bilirubin AST ALT Alkaline Phosphatase Total Protein Albumin Vancomycin Trough Random Vancomycin Hep B Core Total Ab Non-reactive 02/28/24 02/28/24 02/28/24 20:35 21:53 22:33 WBC RBC Hgb Hct MCV MCH MCHC RDW Plt Count MPV Puncture Site Right radial ABG pH 7.443 ABG pCO2 36.2 ABG pO2 91.5 ABG PO2/FiO2 Ratio 3.05 ABG HCO3 24.2 ABG O2 Saturation 97.3 ABG O2 Content 11.8 L ABG Base Excess 0.2 A-a Gradient Pending Oxyhemoglobin 96.1 Carboxyhemoglobin 0.9 Methemoglobin 0.3 Reduced Hemoglobin 2.7 Total Hemoglobin 8.6 L O2 Delivery Device Ventilator O2 Liters/Min Not Reportable Minute Volume Not Reportable Vent Rate 20 Vent Mode Cmv FiO2 30 Tidal Volume 400 PEEP 5 Peak Inspir Pressure Not Reportable Pressure Support Not Reportable Sodium Potassium Chloride Carbon Dioxide Anion Gap BUN Creatinine Estim Creat Clear Calc Estimated GFR Glucose POC Capillary Glucose 118 H Calcium Total Bilirubin AST ALT Alkaline Phosphatase Total Protein Albumin Vancomycin Trough Random Vancomycin 10.1 Hep B Core Total Ab 02/29/24 02/29/24 02/29/24 00:30 03:58 05:32 WBC 4.1 L RBC 2.80 L Hgb 8.2 L Hct 26.9 L MCV 96.1 MCH 29.3 MCHC 30.5 L RDW 15.6 H Plt Count 139 L MPV 11.1 H Puncture Site Left radial ABG pH 7.430 ABG pCO2 40.7 ABG pO2 98.4 ABG PO2/FiO2 Ratio 3.28 ABG HCO3 26.4 H ABG O2 Saturation 97.6 ABG O2 Content 12.4 L ABG Base Excess 1.9 A-a Gradient Pending Oxyhemoglobin 96.6 Carboxyhemoglobin 0.9 Methemoglobin 0.3 Reduced Hemoglobin 2.2 Total Hemoglobin 9.0 L O2 Delivery Device Ventilator O2 Liters/Min Not Reportable Minute Volume Not Reportable Vent Rate 20 Vent Mode Cmv FiO2 30 Tidal Volume 400 PEEP 5 Peak Inspir Pressure Not Reportable Pressure Support Not Reportable Sodium 145 Potassium 3.6 Chloride 113 H Carbon Dioxide 27 Anion Gap 5 BUN 47 H D Creatinine 2.80 H Estim Creat Clear Calc 21 Estimated GFR 16 L Glucose 147 H POC Capillary Glucose 149 H Calcium 10.2 Total Bilirubin 0.7 AST 18 ALT 10 Alkaline Phosphatase 42 Total Prote
[2024-02-29] MEDS: EPOETIN ALFA-EPBX 10,000 UNITS/ML VIAL 10000 UNITS IV PUSH (09:11)
[2024-02-29] MEDS: HEPARIN SODIUM 1,000 UNITS/ML VIAL 5000 UNITS (09:12)
[2024-02-29] MEDS: SODIUM CHLORIDE 0.9% IV 1,000 ML 999 ML IV CONT (09:13)
[2024-02-29] MEDS: ALBUMIN HUMAN 25% 12.5 GM/50ML 50 ML IVPB (10:23)
--- NOTE | 2024-02-29 10:49 | PCFNICU ---
ICU Rounding Note: Pt current nutrition is Nepro at 40 ml/hr. Last recorded weight is 110.6 kg, up from 106.4 kg on admit. Bowel Motility:Last reported BM 02/25 Labs Reviewed:Glu 147, BUN 47, Cr 2.8,GFR 16, Hct 26.9,Hgb 8.2 Meds Noted:Crestor, Miralax, Vit D, Versed, Fentanyl Skin: WNL Additional Notes: Patient remains on a mechanical vent. Tube feedings are being tolerated of Nepro at 40 ml/hr with Flush at 30 ml q 4 hours. Patient had dialysis catheter placed 02/27 with dialysis treatment. Patient also to have dialysis again today. Agree with diet orders. Following daily in ICU rounds. Monitoring intakes, weights, labs, supplement tolerance, plan of care Follow up every Tuesday and Tuesday.
[2024-02-29 11:47] LABS: Glucose Point of Care 126 mg/dl (65-105)
[2024-02-29] MEDS: MINERAL OIL/WHITE PETROLATUM OINTMENT 1 APPLIC EACH EYE ×2 (11:54→20:52)
[2024-02-29] MEDS: CYANOCOBALAMIN 1,000 MCG TABLET 1000 MCG PO (11:54)
[2024-02-29] MEDS: ACIDOPHILUS/BULGARICUS CHEWABLE TABLET 1 TABLET PO ×2 (11:54→17:21)
[2024-02-29] MEDS: CHOLECALCIFEROL 1,000 UNITS TABLET 2000 UNITS PO (11:54)
[2024-02-29] MEDS: polyethylene glycoL 3350 17 GM POWD.PACK PO (11:55)
[2024-02-29] MEDS: ROSUVASTATIN 10 MG TABLET PO (11:55)
[2024-02-29] MEDS: MEROPENEM 500 MG in SODIUM CHLORIDE 0.9% IV 100 ML 200 ML IVPB ×2 (11:55→20:51)
--- NOTE | 2024-02-29 12:03 | PM.PNNEP ---
Progress Note: A&P Assessment and Plan (1) Chronic kidney disease (CKD), stage V: Code(s): N18.5 - Chronic kidney disease, stage 5 Status: Chronic Assessment and Plan: creatinine has been running in the 3.2 - 3.6mg/dl range in the last 6 months slow and ongoing progression of kidney disease over the last 2 years with recent deterioration noted in September 2023 some concerns regarding possible uremic symptoms (poor oral intake, decreased energy level/increased fatigue, confusion,...etc) recenty due to her diabetes, hypertension, vascular disease, recurrent nephrolithiasis + UTIs and what essentially appears to be only one kidney providing functionality based on previous imaging suspect she has progressed to ESRD status s/p tunneled HD catheter placement HD yesterday and today continue to push fluid removal as tolerated possibly HD tomorrow as well (2) Acute respiratory failure: Code(s): J96.00 - Acute respiratory failure, unspecified whether with hypoxia or hypercapnia Status: Acute Assessment and Plan: felt to be secondary to pulmonary edema/volume overload and encephalopathy intubated on the evening of 02/26 imaging noted - small left pleurial effusion with left lower lobe atelectasis versus pneumonia continue mechanical ventilatior support ventilator weaning as tolerated on antibiotics fluid removal with HD (3) Altered mental status: Code(s): R41.82 - Altered mental status, unspecified Status: Acute Assessment and Plan: as noted on admission and at nursing facility presumably due to #3 (but cannot deny an aspect of uremia as well) follow mentation with treatment of acute issues (4) Acute UTI: Code(s): N39.0 - Urinary tract infection, site not specified Status: Acute Assessment and Plan: admission urinalysis highly suggestive complicated by indwelling catheter on antibiotics follow culture data (5) Benign essential hypertension: Code(s): I10 - Essential (primary) hypertension Status: Chronic Assessment and Plan: reasonable control at this time follow trend of hemodynamics (6) Anemia: Code(s): D64.9 - Anemia, unspecified Status: Chronic Assessment and Plan: due to underlying CKD and acute illness follow trend of H/H Epogen with HD (7) Metabolic acidosis: Code(s): E87.20 - Acidosis, unspecified Status: Acute Assessment and Plan: s/pbicarbonate fluids to compensate dialysis should help with this as well (8) DM type 2 (diabetes mellitus, type 2): Onset Date: ~2018 Qualifiers: 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 Subjective Date/time seen: 02/29/24 12:03 Interval history: Follow-up for chronic kidney disease. Tunneled HD catheter placed yesterday afternoon followed by dialysis and tolerated both interventions reasonably well; tolerated dialysis treatment earlier this morning as well with 4L fluid removal; remains intubated/sedated and on mechanical ventilation; no other issues/events overnight or earlier this meaning. Exam Narrative: General: elderly female intubated/sedated and on mechanical ventilation Heart: normal S1 and S2; no rub Lungs: coarse breath sounds Abdomen: soft, nontender, nondistended, positive bowel sounds Extremities: no cyanosis or clubbing; 1+ edema Skin: no rash Objective Data Vital Signs Vital Signs: Vital Signs Temp Pulse Resp BP Pulse Ox O2 Del Method O2 Flow Rate 02/29/24 12:00 98.0 F 100 20 152/80 H 96
--- NOTE | 2024-02-29 12:03 | P.PNNP_ITS ---
Progress Note: A&P Assessment and Plan (1) Chronic kidney disease (CKD), stage V: Code(s): N18.5 - Chronic kidney disease, stage 5 Status: Chronic Assessment and Plan: * creatinine has been running in the 3.2 - 3.6mg/dl range in the last 6 months * slow and ongoing progression of kidney disease over the last 2 years with recent deterioration noted in September 2023 * some concerns regarding possible uremic symptoms (poor oral intake, decreased energy level/increased fatigue, confusion,...etc) recenty * due to her diabetes, hypertension, vascular disease, recurrent nephrolithiasis + UTIs and what essentially appears to be only one kidney providing functionality based on previous imaging * suspect she has progressed to ESRD status * s/p tunneled HD catheter placement * HD yesterday and today * continue to push fluid removal as tolerated * possibly HD tomorrow as well (2) Acute respiratory failure: Code(s): J96.00 - Acute respiratory failure, unspecified whether with hypoxia or hypercapnia Status: Acute Assessment and Plan: * felt to be secondary to pulmonary edema/volume overload and encephalopathy * intubated on the evening of 02/26 * imaging noted - small left pleurial effusion with left lower lobe atelectasis versus pneumonia * continue mechanical ventilatior support * ventilator weaning as tolerated * on antibiotics * fluid removal with HD (3) Altered mental status: Code(s): R41.82 - Altered mental status, unspecified Status: Acute Assessment and Plan: * as noted on admission and at nursing facility * presumably due to #3 (but cannot deny an aspect of uremia as well) * follow mentation with treatment of acute issues (4) Acute UTI: Code(s): N39.0 - Urinary tract infection, site not specified Status: Acute Assessment and Plan: * admission urinalysis highly suggestive * complicated by indwelling catheter * on antibiotics * follow culture data (5) Benign essential hypertension: Code(s): I10 - Essential (primary) hypertension Status: Chronic Assessment and Plan: * reasonable control at this time * follow trend of hemodynamics (6) Anemia: Code(s): D64.9 - Anemia, unspecified Status: Chronic Assessment and Plan: * due to underlying CKD and acute illness * follow trend of H/H * Epogen with HD (7) Metabolic acidosis: Code(s): E87.20 - Acidosis, unspecified Status: Acute Assessment and Plan: * s/pbicarbonate fluids to compensate * dialysis should help with this as well (8) DM type 2 (diabetes mellitus, type 2): Onset Date: ~2018 Qualifiers: Diabetes mellitus custodial insulin use: without custodial use Diabetes mellitus complication status: without complication Qualified Code(s): E11.9 - T ype 2 diabetes mellitus without complications Code(s): E11.9 - Type 2 diabetes mellitus without complications Status: Chronic Assessment and Plan: * follow accu-cheks * glycemic control per hospitalists Will continue to follow. Subjective Date/time seen: 02/29/24 12:03 Interval history: Follow-up for chronic kidney disease. Tunneled HD catheter placed yesterday afternoon followed by dialysis and tolerated both interventions reasonably well; tolerated dialysis treatment earlier this morning as well with 4L fluid removal; remains intubated/sedated and on mechanical ventilation; no other issues/events overnight or earlier this me
[2024-02-29] MEDS: dexmedeTOMIDine 400 MCG/100 ML 400 MCG/100 ML BAG 5.53 MCG IV CONT (15:47)
[2024-02-29 17:46] LABS: Glucose Point of Care 166 mg/dl (65-105)
[2024-02-29 20:01] LABS: Glucose Point of Care 160 mg/dl (65-105)
[2024-02-29] MEDS: APIXABAN 2.5 MG TABLET PO (20:50)
[2024-02-29] MEDS: INSULIN GLARGINE (*BKC) 100 UNITS/ML 10 UNITS SUB-Q (20:51)
[2024-03-01] VITALS (47 sets, daily range): BP systolic 89–151; BP diastolic 60–107; PULSE 59–127; RESP 16–27; TEMP 35.1–37; O2SAT 92–98
[2024-03-01 00:59] LABS: Glucose Point of Care 136 mg/dl (65-105)
[2024-03-01 04:16] LABS: Hematocrit 27.9 % (37.0-47.0); Hemoglobin 8.6 g/dL (12.0-15.0); Mean Corpuscular HGB Conc 30.8 g/dl (32-36); Mean Corpuscular Hemoglobin 29.3 pg (26-34); Mean Corpuscular Volume 94.9 fl (80-100); Mean Platelet Volume 12.1 fl (7.4-10.4); Platelet Count Result 151 k/mm3 (150-375); Red Blood Count 2.94 M/mm3 (4.2-5.4); Red Cell Distribution Width 15.3 % (11.5-14.5); White Blood Count 5.3 K/mm3 (4.5-10.0)
[2024-03-01 04:27] LABS: Alanine Aminotransferase 10 U/L (6-35); Albumin Level 3.3 g/dL (3.5-5.1); Alkaline Phosphatase 41 U/L (38-126); Anion Gap 5 mmol/L (4-12); Aspartate Amino Transferase 18 U/L (14-36); Blood Urea Nitrogen 38 mg/dL (7-17); Calcium 10.3 mg/dL (8.4-10.2); Carbon Dioxide 24 mmol/L (22-30); Chloride 111 mmol/L (98-107); Estimated CRCL calculation 26 ml/min; Estimated Glomerular Filt Rate 22; Glucose 138 mg/dL (65-110); Potassium 3.5 mmol/L (3.4-5.0); Sodium 140 mmol/L (137-145)
[2024-03-01 04:37] LABS: Alveolar/Arterial O2 Gradient 102.1 mmHg; Base Excess ABG 4.1 mEq/l (+/-2.0); Carboxyhemoglobin 0.7 % THb (0-2.0); Fractional Inspired Oxygen 30 %; HCO3 ABG 26.5 mEq/l (22.0-26.0); Methemoglobin ABG 0.3 %THb (0-1.5); Oxygen Content ABG 11.7 %vol (16.0-22.0); Oxygen Saturation ABG 96.6 % (95.0-100.0); PCO2 ABG 31.3 mmHg (35.0-45.0); Total Hemoglobin 8.7 g/dL (12.0-18.0)
[2024-03-01 04:40] LABS: Device VENTILATOR; Modified Allen's Test Pass; Site Drawn RIGHT RADIAL; pH ABG 7.546 (7.350-7.450)
[2024-03-01 04:41] LABS: Arterial Blood Gas PEEP 5 cmH2O; Arterial Blood Gas Tidal Volume 400 ml; Arterial Blood Gas Vent Mode CMV; Arterial Blood Gas Ventilator rate 20 /MIN
[2024-03-01] MEDS: LANSOPRAZOLE ODT 30 MG TAB.RAP.DR FEED TUBE (05:41)
[2024-03-01] MEDS: MIDAZOLAM 100MG/NS 100ML(*CRX) 100 MG/100 ML BAG IV CONT (05:42)
--- NOTE | 2024-03-01 07:30 | WPDINTPN ---
Progress Note: A&P Assessment and Plan (1) Acute respiratory failure: Code(s): J96.00 - Acute respiratory failure, unspecified whether with hypoxia or hypercapnia <Sheyla Christensen Student - Last Filed: 03/01/24 10:52> Status: Acute <Sheyla CastellonAsim Amparo, Student - Last Filed: 03/01/24 10:52> Assessment and Plan: Multifactorial Acute Respiratory failure secondary to pulmonary edema, encephalopathy Patient intubated 02/26. ABG reviewed.?pH 7.55, pCO2 31.3, HCO3 26.5. Will decrease tidal volume to 350 and rate to 16. CXR Support tubes and line in place, with small left pleural effusion with left lower lobe atelectasis versus pneumonia. Continue full mechanical ventilation support to prevent hypoxemia/hypercarbia and end organ damage. Settings PEEP 5, FiO2 30 Low tidal volume ventilation strategy to prevent volutrauma Will attempt SBT after hemodialysis today Off of vancomycin, continue meropenum <Sheyla Christensen, Student - Last Filed: 03/01/24 10:52> (2) Altered mental status: Code(s): R41.82 - Altered mental status, unspecified <Sheyla CastellonAsim Christensen, Student - Last Filed: 03/01/24 10:52> Status: Acute <Sheyla Christensen, Student - Last Filed: 03/01/24 10:52> Assessment and Plan: Likely toxic metabolic encephalopathy. -Ammonia and TSH normal -Head CT was negative -Possible UTI with suggestive UA. However 02/24 urine culture negative. Patient has chronic indwelling Bras[place] and has history of UTIs. She is on antibiotics meropenem. Vancomycin DC'd on 02/28 -Her WBC and procalcitonin level was normal -02/24 Blood culture with no growth to date -Patient is currently sedated with Versed fentanyl which is now on hold for sedation holiday -Prior to intubation patient was moving all 4 extremities. A CVA cannot be ruled out at this time unable to perform MRI on him patient on mechanical ventilator and [facility].? It will not bladder changer at this time -Patient has a-fib, ECHO results pending <Sheyla Christensen Student - Last Filed: 03/01/24 10:52> Likely toxic metabolic encephalopathy. -Ammonia and TSH normal -Head CT was negative -Possible UTI with suggestive UA. However 02/24 urine culture negative. Patient has chronic indwelling Bras[place] and has history of UTIs. She is on antibiotics meropenem. Vancomycin DC'd on 02/28 -Her WBC and procalcitonin level was normal -02/24 Blood culture with no growth to date -Patient is currently sedated with Versed fentanyl which is now on hold for sedation holiday -Prior to intubation patient was moving all 4 extremities. A CVA cannot be ruled out at this time unable to perform MRI on him patient on mechanical ventilator and [facility].? It will not bladder changer at this time -Patient has a-fib, ECHO results pending <Edison Madison MD - Last Filed: 03/01/24 10:55> (3) Chronic kidney disease (CKD), stage V: Code(s): N18.5 - Chronic kidney disease, stage 5 <Sheyla Christensen Student - Last Filed: 03/01/24 10:52> Status: Chronic <Sheyla Christensen Student - Last Filed: 03/01/24 10:52> Assessment and Plan: Patient with diabetes, hypertension, vascular disease, recurrent nephrolithiasis + UTIs and what essentially appears to be only one kidney providing functionality based on previous imaging. 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 Creatinine has been running in the 3.2 - 3.6mg/dl range in the last 6 months -Some concern for uremic symptoms recently -Nephrology following -MALARIOLOGIST/dialysis in the near
[2024-03-01 07:53] LABS: Glucose Point of Care 131 mg/dl (65-105)
--- NOTE | 2024-03-01 09:35 | PM.PNNEP ---
Progress Note: A&P Assessment and Plan (1) ESRD (end stage renal disease): Code(s): N18.6 - End stage renal disease Status: Chronic Assessment and Plan: creatinine has been running in the 3.2 - 3.6mg/dl range in the last 6 months slow and ongoing progression of kidney disease over the last 2 years with recent deterioration noted in September 2023 some concerns regarding possible uremic symptoms (poor oral intake, decreased energy level/increased fatigue, confusion,...etc) recently due to her diabetes, hypertension, vascular disease, recurrent nephrolithiasis + UTIs and what essentially appears to be only one kidney providing functionality based on previous imaging s/p tunneled HD catheter placement (on 02/28/24) HD day before yesterday, yesterday and today continue to push fluid removal as tolerated (2) Acute respiratory failure: Code(s): J96.00 - Acute respiratory failure, unspecified whether with hypoxia or hypercapnia Status: Acute Assessment and Plan: felt to be secondary to pulmonary edema/volume overload and encephalopathy intubated on the evening of 02/26 imaging noted - small left pleurial effusion with left lower lobe atelectasis versus pneumonia continue mechanical ventilatior support ventilator weaning as tolerated on antibiotics fluid removal with HD (3) Altered mental status: Code(s): R41.82 - Altered mental status, unspecified Status: Acute Assessment and Plan: as noted on admission and at nursing facility presumably due to #3 (but cannot deny an aspect of uremia as well) follow mentation with treatment of acute issues (4) Acute UTI: Code(s): N39.0 - Urinary tract infection, site not specified Status: Acute Assessment and Plan: admission urinalysis highly suggestive complicated by indwelling catheter on antibiotics follow culture data (5) Benign essential hypertension: Code(s): I10 - Essential (primary) hypertension Status: Chronic Assessment and Plan: reasonable control at this time follow trend of hemodynamics (6) Anemia: Code(s): D64.9 - Anemia, unspecified Status: Chronic Assessment and Plan: due to underlying CKD and acute illness follow trend of H/H Epogen with HD (7) Metabolic acidosis: Code(s): E87.20 - Acidosis, unspecified Status: Acute Assessment and Plan: s/p bicarbonate fluids to compensate dialysis should help with this as well (8) DM type 2 (diabetes mellitus, type 2): Onset Date: ~2018 Qualifiers: Diabetes mellitus detention insulin use: without roasterman use Diabetes mellitus complication status: without complication Qualified Code(s): E11.9 - Type 2 diabetes mellitus without complications Code(s): E11.9 - Type 2 diabetes mellitus without complications Status: Chronic Assessment and Plan: follow accu-cheks glycemic control per hospitalists Will continue to follow. Subjective Date/time seen: 03/01/24 09:35 Interval history: Follow-up for chronic kidney disease ([facility] progression to ESRD on hemodialysis) Tolerated dialysis treatment yesterday with 4L fluid removal; tolerating dialysis treatment today at the the time of my visit (seen on HD at 9:25AM); remains intubated/sedated and on mechanical ventilation; remains hemodynamically stable; no other issues/events overnight or earlier this morning. Exam Narrative: General: elderly female intubated/sedated and on mechanical ventilation Heart: normal S1 and S2; no rub Lungs: coarse breath sounds; decreased at bases Abdomen: soft, nontender, nondistended, positive bowel sounds Extremities: no cyanosis or clubbing; 1+ edema Skin: no nodules Objective Data Vital Signs Vital Signs: Vital Signs Temp Pulse Resp BP Pulse Ox O2 Del Method FiO2 03/01/24 09:30 77 114/74 03/01/24 09:15 78 128/74
--- NOTE | 2024-03-01 09:35 | P.PNNP_ITS ---
Progress Note: A&P Assessment and Plan (1) ESRD (end stage renal disease): Code(s): N18.6 - End stage renal disease Status: Chronic Assessment and Plan: * creatinine has been running in the 3.2 - 3.6mg/dl range in the last 6 months * slow and ongoing progression of kidney disease over the last 2 years with recent deterioration noted in September 2023 * some concerns regarding possible uremic symptoms (poor oral intake, decreased energy level/increased fatigue, confusion,...etc) recently * due to her diabetes, hypertension, vascular disease, recurrent nephrolithiasis + UTIs and what essentially appears to be only one kidney providing functionality based on previous imaging * s/p tunneled HD catheter placement (on 02/28/24) * HD day before yesterday, yesterday and today * continue to push fluid removal as tolerated (2) Acute respiratory failure: Code(s): J96.00 - Acute respiratory failure, unspecified whether with hypoxia or hypercapnia Status: Acute Assessment and Plan: * felt to be secondary to pulmonary edema/volume overload and encephalopathy * intubated on the evening of 02/26 * imaging noted - small left pleurial effusion with left lower lobe atelectasis versus pneumonia * continue mechanical ventilatior support * ventilator weaning as tolerated * on antibiotics * fluid removal with HD (3) Altered mental status: Code(s): R41.82 - Altered mental status, unspecified Status: Acute Assessment and Plan: * as noted on admission and at nursing facility * presumably due to #3 (but cannot deny an aspect of uremia as well) * follow mentation with treatment of acute issues (4) Acute UTI: Code(s): N39.0 - Urinary tract infection, site not specified Status: Acute Assessment and Plan: * admission urinalysis highly suggestive * complicated by indwelling catheter * on antibiotics * follow culture data (5) Benign essential hypertension: Code(s): I10 - Essential (primary) hypertension Status: Chronic Assessment and Plan: * reasonable control at this time * follow trend of hemodynamics (6) Anemia: Code(s): D64.9 - Anemia, unspecified Status: Chronic Assessment and Plan: * due to underlying CKD and acute illness * follow trend of H/H * Epogen with HD (7) Metabolic acidosis: Code(s): E87.20 - Acidosis, unspecified Status: Acute Assessment and Plan: * s/p bicarbonate fluids to compensate * dialysis should help with this as well (8) DM type 2 (diabetes mellitus, type 2): Onset Date: ~2018 Qualifiers: Diabetes mellitus skilled nursing insulin use: without skilled nursing use Diabetes mellitus complication status: without complication Qualified Code(s): E11.9 - Type 2 diabetes mellitus without complications Code(s): E11.9 - Type 2 diabetes mellitus without complications Status: Chronic Assessment and Plan: * follow accu-cheks * glycemic control per hospitalists Will continue to follow. Subjective Date/time seen: 03/01/24 09:35 Interval history: Follow-up for chronic kidney disease (wih progression to ESRD on hemodialysis) Tolerated dialysis treatment yesterday with 4L fluid removal; tolerating dialysis treatment today at the the time of my visit (seen on HD at 9:25AM); remains intubated/sedated and on mechanical ventilation; remains hemodynamically stable; no other issues/events overnight or earlier this morning. Exam Narrat
[2024-03-01] MEDS: MINERAL OIL/WHITE PETROLATUM OINTMENT 1 APPLIC EACH EYE ×2 (09:44→21:56)
[2024-03-01] MEDS: CHOLECALCIFEROL 1,000 UNITS TABLET 2000 UNITS PO (09:47)
[2024-03-01] MEDS: FERROUS SULFATE LIQUID 325 MG/7.4 ML ELIXIR FEED TUBE (09:47)
[2024-03-01] MEDS: CYANOCOBALAMIN 1,000 MCG TABLET 1000 MCG PO (09:47)
[2024-03-01] MEDS: ROSUVASTATIN 10 MG TABLET PO (09:47)
[2024-03-01] MEDS: polyethylene glycoL 3350 17 GM POWD.PACK PO (09:47)
[2024-03-01] MEDS: APIXABAN 2.5 MG TABLET PO ×2 (09:47→21:56)
[2024-03-01] MEDS: ACIDOPHILUS/BULGARICUS CHEWABLE TABLET 1 TABLET PO ×2 (09:47→18:08)
--- NOTE | 2024-03-01 10:51 | PCFNICU ---
ICU Rounding Note: Pt current nutrition is Nepro at 40ml/hr. Last recorded weight is 106.9 kg, stable Bowel Motility:Last reported BM 02/25-patient remains on Miralax Labs Reviewed: Glu 138, GFR 22, BUN 38, Cr 2.2, Hct 27.9,Hgb 8.6 Meds Noted:Vit D, Versed, Fentanyl, Crestor, Miralalx. Skin: WNL Additional Notes: Patient remains on mechanical vent. Dialysis again today. Patient is tolerating tube feedings of Nepro at 40 ml/hr providing 1584 kcal/72 gm protein/640 ml water. Flush 30 ml q 4 hours. Agree with diet orders at this time. Following daily in ICU rounds. Monitoring intakes, weights, labs, supplement tolerance, plan of care every Tuesday and Tuesday.
[2024-03-01] MEDS: EPOETIN ALFA-EPBX 10,000 UNITS/ML VIAL 10000 UNITS IV PUSH (11:05)
[2024-03-01] MEDS: MEROPENEM 500 MG in SODIUM CHLORIDE 0.9% IV 100 ML 200 ML IVPB ×2 (11:06→21:56)
[2024-03-01] MEDS: SODIUM CHLORIDE 0.9% IV 1,000 ML 999 ML IV CONT (11:12)
[2024-03-01 11:29] LABS: Glucose Point of Care 117 mg/dl (65-105)
[2024-03-01 16:11] LABS: Glucose Point of Care 150 mg/dl (65-105)
[2024-03-01] MEDS: dexmedeTOMIDine 400 MCG/100 ML 400 MCG/100 ML BAG 5.53 MCG IV CONT (18:46)
[2024-03-01 20:14] LABS: Glucose Point of Care 149 mg/dl (65-105)
[2024-03-01] MEDS: INSULIN GLARGINE (*BKC) 100 UNITS/ML SUB-Q (21:56)
[2024-03-02] VITALS (45 sets, daily range): BP systolic 89–145; BP diastolic 60–95; PULSE 53–99; RESP 16–27; TEMP 35.8–37.4; O2SAT 95–100
[2024-03-02 01:33] LABS: Glucose Point of Care 170 mg/dl (65-105)
[2024-03-02 03:51] LABS: Hematocrit 30.4 % (37.0-47.0); Hemoglobin 8.7 g/dL (12.0-15.0); Mean Corpuscular HGB Conc 28.6 g/dl (32-36); Mean Corpuscular Hemoglobin 29.2 pg (26-34); Mean Platelet Volume 11.9 fl (7.4-10.4); Platelet Count Result 156 k/mm3 (150-375); Red Blood Count 2.98 M/mm3 (4.2-5.4); Red Cell Distribution Width 15.1 % (11.5-14.5); White Blood Count 4.7 K/mm3 (4.5-10.0)
[2024-03-02 04:19] LABS: Alanine Aminotransferase 10 U/L (6-35); Albumin Level 3.2 g/dL (3.5-5.1); Alkaline Phosphatase 39 U/L (38-126); Anion Gap 3 mmol/L (4-12); Aspartate Amino Transferase 26 U/L (14-36); Bilirubin,Total 0.9 mg/dL (0.2-1.3); Blood Urea Nitrogen 26 mg/dL (7-17); Carbon Dioxide 25 mmol/L (22-30); Chloride 110 mmol/L (98-107); Estimated CRCL calculation 31 ml/min; Estimated Glomerular Filt Rate 27; Glucose 193 mg/dL (65-110); Potassium 4.4 mmol/L (3.4-5.0); Sodium 138 mmol/L (137-145)
[2024-03-02 05:09] LABS: Alveolar/Arterial O2 Gradient 56.2 mmHg; Base Excess ABG 2.5 mEq/l (+/-2.0); Carboxyhemoglobin 0.6 % THb (0-2.0); Fractional Inspired Oxygen 30 %; HCO3 ABG 28.1 mEq/l (22.0-26.0); Methemoglobin ABG 0.3 %THb (0-1.5); Oxygen Content ABG 12.7 %vol (16.0-22.0); Oxygen Saturation ABG 97.4 % (95.0-100.0); Oxyhemoglobin 96.8 % THb (90.0-100.0); PCO2 ABG 48.6 mmHg (35.0-45.0); PO2 ABG 100.6 mmHg (80.0-100.0); PO2 FiO2 Ratio Arterial Blood 3.35 %; Reduced Hemoglobin 2.3 %THb (0-5.0); Total Hemoglobin 9.2 g/dL (12.0-18.0)
[2024-03-02] MEDS: LANSOPRAZOLE ODT 30 MG TAB.RAP.DR FEED TUBE (05:16)
[2024-03-02 05:30] LABS: Glucose Point of Care 118 mg/dl (65-105)
[2024-03-02 05:41] LABS: Site Drawn LEFT RADIAL
[2024-03-02 05:42] LABS: Arterial Blood Gas PEEP 5 cmH2O; Arterial Blood Gas Tidal Volume 350 ml; Arterial Blood Gas Vent Mode CMV; Arterial Blood Gas Ventilator rate 16 /MIN; Device VENTILATOR; Modified Allen's Test Pass
[2024-03-02] MEDS: CHOLECALCIFEROL 1,000 UNITS TABLET 2000 UNITS PO (07:57)
[2024-03-02] MEDS: polyethylene glycoL 3350 17 GM POWD.PACK PO (08:00)
[2024-03-02] MEDS: MINERAL OIL/WHITE PETROLATUM OINTMENT 1 APPLIC EACH EYE ×2 (08:00→20:28)
[2024-03-02] MEDS: DOCUSATE SODIUM LIQ 100 MG/10 ML UDC 200 MG FEED TUBE (08:00)
[2024-03-02] MEDS: CYANOCOBALAMIN 1,000 MCG TABLET 1000 MCG PO (08:00)
[2024-03-02] MEDS: ACIDOPHILUS/BULGARICUS CHEWABLE TABLET 1 TABLET PO ×2 (08:00→17:19)
[2024-03-02] MEDS: APIXABAN 2.5 MG TABLET PO ×2 (08:00→20:32)
[2024-03-02] MEDS: ROSUVASTATIN 10 MG TABLET PO (08:00)
[2024-03-02] MEDS: MEROPENEM 500 MG in SODIUM CHLORIDE 0.9% IV 100 ML 200 ML IVPB ×2 (08:01→20:32)
--- NOTE | 2024-03-02 08:10 | WPDINTPN ---
Progress Note: A&P Assessment and Plan (1) Acute respiratory failure: Code(s): J96.00 - Acute respiratory failure, unspecified whether with hypoxia or hypercapnia Status: Acute Assessment and Plan: Multifactorial Acute Respiratory failure secondary to pulmonary edema, encephalopathy Patient intubated 02/26. ABG reviewed and chest x-ray reviewed Continue full mechanical ventilation support to prevent hypoxemia/hypercarbia and end organ damage. Settings PEEP 5, FiO2 30 Will attempt weaning trial after hemodialysis session this morning Off of vancomycin, continue meropenum Continue low-dose Precedex infusion. Off of Versed and fentanyl (2) Altered mental status: Code(s): R41.82 - Altered mental status, unspecified Status: Acute Assessment and Plan: Likely toxic metabolic encephalopathy. -Ammonia and TSH normal -Head CT was negative -Possible UTI with suggestive UA. However 02/24 urine culture negative. Patient has chronic indwelling Braswell and has history of UTIs. She is on antibiotics meropenem. Vancomycin DC'd on 02/28 -Her WBC and procalcitonin level was normal -02/24 Blood culture with no growth to date -Patient was sedated with Versed fentanyl which is now off -Prior to intubation patient was moving all 4 extremities. A CVA cannot be ruled out at this time unable to perform MRI on him patient on mechanical ventilator and [facility] It will not casino change attendant at this time patient does move all extremities -Patient has a-fib, ECHO results below (3) Chronic kidney disease (CKD), stage V: Code(s): N18.5 - Chronic kidney disease, stage 5 Status: Chronic Assessment and Plan: Patient with diabetes, hypertension, vascular disease, recurrent nephrolithiasis + UTIs and what essentially appears to be only one kidney providing functionality based on previous imaging. 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 Was on Eliquis prior to admission, however Eliquis was held for invasive procedure 02/28 Eliquis resumed ECHO Summary ? 1. Technically difficult study. ? 2. Left ventricular chamber dimension is normal. ? 3. Left ventricular systolic function is lower limits of normal, estimated at 50-55%. ? 4. There is mildly increased left ventricular wall thickness. ? 5. Right ventricular systolic function is normal. ? 6. Left atrial chamber dimension is severely enlarged. ? 7. Right atrial chamber dimension is mildly enlarged. ? 8. There is mild aortic valve regurgitation. ? 9. There is mild mitral valve regurgitation. ? 10. There is mild to moderate tricuspid valve regurgitation. ? 11. Pericardial effusion is present. Pericardial effusion is trivial in size anteriorly, and is small in size posteriorly. ? 12. Left pleural effusion present. (6) Acute UTI: Code(s): N39.0 - Urinary tract infection, site not specified Status: Acute Assessment and Plan: Patient has chronic i
[2024-03-02] MEDS: dexmedeTOMIDine 400 MCG/100 ML 400 MCG/100 ML BAG 5.53 MCG IV CONT (09:43)
--- NOTE | 2024-03-02 10:32 | PCNFU ---
Nutrition Follow-Up Complete: Inadequate oral intake related to loss of appetite as evidenced by refusal of meals, low intakes. Goal:Meet estimated nutritional needs. Patient is progressing towards goal. We will continue current goal. Pt current nutrition is Nepro at 40 ml/hr. Last recorded weight is 105 kg, down from 106.4 kg on admit Bowel Motility:Last reported BM 02/25 Labs Reviewed:Glu 193, GFR 27, BUN 26, Cr 1.8,Alb 3.2,Hct 30.4,Hgb 8.7 Meds Noted:Crestor, Vit D, Colace, Fentanyl,Versed, Miralax Skin: WNL Additional Notes: Patient remains on mechanical vent. Tube feedings are being tolerated of Nepro at 40 ml/hr. Total Nutrition: 1584 kcal/72 gm protein/640 ml water. Meeting 99% kcal needs at 15 kcal/kg and 85% protein needs. Plans for Dialysis again today. Agree with diet orders. Monitoring intakes, weights, labs, supplement tolerance, plan of care every Tuesday and Tuesday.
[2024-03-02] MEDS: LIDOCAINE HCL 1% LOCAL INJ 2 ML AMPUL 5 ML INFILTRATE (10:45)
[2024-03-02 11:48] LABS: Glucose Point of Care 167 mg/dl (65-105)
--- NOTE | 2024-03-02 15:10 | PM.PNNEP ---
Progress Note: A&P Assessment and Plan (1) ESRD (end stage renal disease): Code(s): N18.6 - End stage renal disease Status: Chronic Assessment and Plan: creatinine has been running in the 3.2 - 3.6mg/dl range in the last 6 months slow and ongoing progression of kidney disease over the last 2 years with recent deterioration noted in September 2023 some concerns regarding possible uremic symptoms (poor oral intake, decreased energy level/increased fatigue, confusion,...etc) recently due to her diabetes, hypertension, vascular disease, recurrent nephrolithiasis + UTIs and what essentially appears to be only one kidney providing functionality based on previous imaging renal scan in 10/25/14 with poor right kidney function which is 16% of total renal function s/p tunneled HD catheter placement (on 02/28/24) inititated on AIRCRAFT ACCESSORIES MECHANIC/hemodialysis - plan next treatment tomorrow continue to push fluid removal as tolerated (2) Acute respiratory failure: Code(s): J96.00 - Acute respiratory failure, unspecified whether with hypoxia or hypercapnia Status: Acute Assessment and Plan: felt to be secondary to pulmonary edema/volume overload and encephalopathy intubated on the evening of 02/26 imaging noted - small left pleurial effusion with left lower lobe atelectasis versus pneumonia continue mechanical ventilatior support ventilator weaning as tolerated on antibiotics fluid removal with HD DUF today for further fluid removal (3) Altered mental status: Code(s): R41.82 - Altered mental status, unspecified Status: Acute Assessment and Plan: as noted on admission and at nursing facility presumably due to #3 (but cannot deny an aspect of uremia as well) follow mentation with treatment of acute issues (4) Acute UTI: Code(s): N39.0 - Urinary tract infection, site not specified Status: Acute Assessment and Plan: admission urinalysis highly suggestive complicated by indwelling catheter on antibiotics follow culture data (5) Hypercalcemia: Code(s): E83.52 - Hypercalcemia Status: Chronic Assessment and Plan: somewhat chronic for revoew of records attmeptig to compensate with dialysis check PTH, ionized Ca++, and vitamin D for completeness, check SPEP, UPEP, immunofixation as well follow trend (6) Benign essential hypertension: Code(s): I10 - Essential (primary) hypertension Status: Chronic Assessment and Plan: reasonable control at this time follow trend of hemodynamics (7) Anemia: Code(s): D64.9 - Anemia, unspecified Status: Chronic Assessment and Plan: due to underlying CKD and acute illness follow trend of H/H Epogen with HD (8) DM type 2 (diabetes mellitus, type 2): Onset Date: ~2018 Qualifiers: Diabetes mellitus complication status: without complication Diabetes mellitus regional intermodal truck driver insulin use: without regional intermodal truck driver use Qualified Code(s): E11.9 - Type 2 diabetes mellitus without complications Code(s): E11.9 - Type 2 diabetes mellitus without complications Status: Chronic Assessment and Plan: follow accu-cheks glycemic control per hospitalists Will continue to follow. Subjective Date/time seen: 03/02/24 15:10 Interval history: Follow-up for chronic kidney disease (wih progression to ESRD on hemodialysis) Seen earlier this morning and now -- tolerating dry ultrafiltration session at the time of my visit (seen on DUF at 3:00PM); remains intubated/sedated and on mechanical ventilation; diminished urine output noted and continues to have issues with agitation (pulling at lines and tubes) when sedation weaned; stable hemodynamics noted. Exam Narrative: General: elderly female intubated/sedated and on mechanical ventilation Heart: normal S1 and S2; no rub Lungs: coarse breath sounds; decreased at bases Abdomen: soft
--- NOTE | 2024-03-02 15:10 | P.PNNP_ITS ---
Progress Note: A&P Assessment and Plan (1) ESRD (end stage renal disease): Code(s): N18.6 - End stage renal disease Status: Chronic Assessment and Plan: * creatinine has been running in the 3.2 - 3.6mg/dl range in the last 6 months * slow and ongoing progression of kidney disease over the last 2 years with recent deterioration noted in September 2023 * some concerns regarding possible uremic symptoms (poor oral intake, decreased energy level/increased fatigue, confusion,...etc) recently * due to her diabetes, hypertension, vascular disease, recurrent nephrolithiasis + UTIs and what essentially appears to be only one kidney providing functionality based on previous imaging * renal scan in 10/25/14 with poor right kidney function which is 16% of total renal function * s/p tunneled HD catheter placement (on 02/28/24) * inititated on CAR BODY INSPECTOR/hemodialysis - plan next treatment tomorrow * continue to push fluid removal as tolerated (2) Acute respiratory failure: Code(s): J96.00 - Acute respiratory failure, unspecified whether with hypoxia or hypercapnia Status: Acute Assessment and Plan: * felt to be secondary to pulmonary edema/volume overload and encephalopathy * intubated on the evening of 02/26 * imaging noted - small left pleurial effusion with left lower lobe atelectasis versus pneumonia * continue mechanical ventilatior support * ventilator weaning as tolerated * on antibiotics * fluid removal with HD * DUF today for further fluid removal (3) Altered mental status: Code(s): R41.82 - Altered mental status, unspecified Status: Acute Assessment and Plan: * as noted on admission and at nursing facility * presumably due to #3 (but cannot deny an aspect of uremia as well) * follow mentation with treatment of acute issues (4) Acute UTI: Code(s): N39.0 - Urinary tract infection, site not specified Status: Acute Assessment and Plan: * admission urinalysis highly suggestive * complicated by indwelling catheter * on antibiotics * follow culture data (5) Hypercalcemia: Code(s): E83.52 - Hypercalcemia Status: Chronic Assessment and Plan: * somewhat chronic for revoew of records * attmeptig to compensate with dialysis * check PTH, ionized Ca++, and vitamin D * for completeness, check SPEP, UPEP, immunofixation as well * follow trend (6) Benign essential hypertension: Code(s): I10 - Essential (primary) hypertension Status: Chronic Assessment and Plan: * reasonable control at this time * follow trend of hemodynamics (7) Anemia: Code(s): D64.9 - Anemia, unspecified Status: Chronic Assessment and Plan: * due to underlying CKD and acute illness * follow trend of H/H * Epogen with HD (8) DM type 2 (diabetes mellitus, type 2): Onset Date: ~2018 Qualifiers: Diabetes mellitus complication status: without complication Diabetes mellitus group home insulin use: without ad terminal makeup operator use Qualified Code(s): E11.9 - Type 2 diabetes mellitus without complications Code(s): E11.9 - Type 2 diabetes mellitus without complications Status: Chronic Assessment and Plan: * follow accu-cheks * glycemic control per hospitalists Will continue to follow. Subjective Date/time seen: 03/02/24 15:10 Interval history: Follow-up for chronic kidney disease (wih progression to ESRD on hemodialysis) Seen earlier this morning and now -- tolerating dry u
[2024-03-02] MEDS: ALBUMIN HUMAN 25% 12.5 GM/50ML 50 ML IVPB (16:06)
[2024-03-02] MEDS: HEPARIN SODIUM 1,000 UNITS/ML VIAL 5000 UNITS (17:44)
[2024-03-02 19:14] LABS: Glucose Point of Care 160 mg/dl (65-105)
[2024-03-02] MEDS: INSULIN GLARGINE (*BKC) 100 UNITS/ML SUB-Q (20:32)
[2024-03-02] MEDS: SALINE LOCK FLUSH 10 ML IV PUSH (20:32)
[2024-03-02 20:48] LABS: Glucose Point of Care 181 mg/dl (65-105)
[2024-03-02] MEDS: dexmedeTOMIDine 400 MCG/100 ML 400 MCG/100 ML BAG 13.83 MCG IV CONT (22:15)
[2024-03-03] VITALS (54 sets, daily range): BP systolic 92–164; BP diastolic 60–112; PULSE 58–104; RESP 18–34; TEMP 36.1–38; O2SAT 92–100
[2024-03-03 00:06] LABS: Glucose Point of Care 185 mg/dl (65-105)
[2024-03-03] MEDS: dexmedeTOMIDine 400 MCG/100 ML 400 MCG/100 ML BAG 13.83 MCG IV CONT (06:03)
[2024-03-03 06:04] LABS: Base Excess ABG 2.2 mEq/l (+/-2.0); Carboxyhemoglobin 0.9 % THb (0-2.0); Fractional Inspired Oxygen 30 %; HCO3 ABG 27.3 mEq/l (22.0-26.0); Oxygen Content ABG 13.5 %vol (16.0-22.0); Oxygen Saturation ABG 97.4 % (95.0-100.0); Oxyhemoglobin 96.9 % THb (90.0-100.0); PCO2 ABG 44.8 mmHg (35.0-45.0); PO2 ABG 97.3 mmHg (80.0-100.0); PO2 FiO2 Ratio Arterial Blood 3.24 %; Reduced Hemoglobin 2.2 %THb (0-5.0); Total Hemoglobin 9.8 g/dL (12.0-18.0); pH ABG 7.402 (7.350-7.450)
[2024-03-03 06:05] LABS: Arterial Blood Gas PEEP 5 cmH2O; Arterial Blood Gas Tidal Volume 350 ml; Arterial Blood Gas Vent Mode CMV; Arterial Blood Gas Ventilator rate 16 /MIN; Device VENTILATOR; Modified Allen's Test Unable to perform; Site Drawn LEFT RADIAL
[2024-03-03 06:05] LABS: Hematocrit 29.2 % (37.0-47.0); Hemoglobin 8.8 g/dL (12.0-15.0); Mean Corpuscular HGB Conc 30.1 g/dl (32-36); Mean Corpuscular Hemoglobin 29.2 pg (26-34); Mean Platelet Volume 11.1 fl (7.4-10.4); Platelet Count Result 155 k/mm3 (150-375); Red Blood Count 3.01 M/mm3 (4.2-5.4); Red Cell Distribution Width 14.6 % (11.5-14.5); White Blood Count 4.7 K/mm3 (4.5-10.0)
[2024-03-03] MEDS: SALINE LOCK FLUSH 10 ML IV PUSH ×3 (06:06→20:32)
[2024-03-03] MEDS: LANSOPRAZOLE ODT 30 MG TAB.RAP.DR FEED TUBE (06:06)
[2024-03-03 06:15] LABS: Alanine Aminotransferase 11 U/L (6-35); Albumin Level 3.3 g/dL (3.5-5.1); Alkaline Phosphatase 52 U/L (38-126); Anion Gap 3 mmol/L (4-12); Aspartate Amino Transferase 21 U/L (14-36); Bilirubin,Total 0.8 mg/dL (0.2-1.3); Blood Urea Nitrogen 33 mg/dL (7-17); Calcium 12.1 mg/dL (8.4-10.2); Carbon Dioxide 27 mmol/L (22-30); Chloride 107 mmol/L (98-107); Estimated CRCL calculation 23 ml/min; Estimated Glomerular Filt Rate 19; Glucose 198 mg/dL (65-110); Sodium 137 mmol/L (137-145)
[2024-03-03] MEDS: MEROPENEM 500 MG in SODIUM CHLORIDE 0.9% IV 100 ML 200 ML IVPB (08:03)
[2024-03-03 08:10] LABS: Glucose Point of Care 185 mg/dl (65-105)
[2024-03-03] MEDS: ACIDOPHILUS/BULGARICUS CHEWABLE TABLET 1 TABLET PO ×2 (08:11→17:18)
[2024-03-03] MEDS: FERROUS SULFATE LIQUID 325 MG/7.4 ML ELIXIR FEED TUBE (08:11)
[2024-03-03] MEDS: APIXABAN 2.5 MG TABLET PO ×2 (08:11→20:31)
[2024-03-03] MEDS: ROSUVASTATIN 10 MG TABLET PO (08:11)
[2024-03-03] MEDS: INSULIN GLARGINE (*BKC) 100 UNITS/ML SUB-Q ×2 (08:11→20:32)
[2024-03-03] MEDS: MINERAL OIL/WHITE PETROLATUM OINTMENT 1 APPLIC EACH EYE ×2 (08:11→20:32)
[2024-03-03] MEDS: polyethylene glycoL 3350 17 GM POWD.PACK PO (08:11)
[2024-03-03] MEDS: CYANOCOBALAMIN 1,000 MCG TABLET 1000 MCG PO (08:11)
[2024-03-03] MEDS: CHOLECALCIFEROL 1,000 UNITS TABLET 2000 UNITS PO (08:11)
--- NOTE | 2024-03-03 09:02 | WPDINTPN ---
Progress Note: A&P Assessment and Plan (1) Acute respiratory failure: Code(s): J96.00 - Acute respiratory failure, unspecified whether with hypoxia or hypercapnia Status: Acute Assessment and Plan: Multifactorial Acute Respiratory failure secondary to pulmonary edema, encephalopathy Patient intubated 02/26. ABG reviewed and chest x-ray reviewed Continue full mechanical ventilation support to prevent hypoxemia/hypercarbia and end organ damage. Settings PEEP 5, FiO2 30 Patient placed on PSV weaning trial 02/25. Off of vancomycin, continue meropenum Currently on low-dose Precedex infusion. Held for sedation holiday (2) Altered mental status: Code(s): R41.82 - Altered mental status, unspecified Status: Acute Assessment and Plan: Likely toxic metabolic encephalopathy. -Ammonia and TSH normal -Head CT was negative -Possible UTI with suggestive UA. However 02/24 urine culture negative. Patient has chronic indwelling [place] and has history of UTIs. She is on antibiotics meropenem. Vancomycin DC'd on 02/28 -Her WBC and procalcitonin level was normal -02/24 Blood culture with no growth to date -Patient was sedated with Versed fentanyl which is now off -Prior to intubation patient was moving all 4 extremities. A CVA cannot be ruled out at this time unable to perform MRI on him patient on mechanical ventilator and [facility] It will not change director at this time patient does move all extremities -Patient has a-fib, ECHO results below - 03/03 resume home dose of methylphenidate (3) Chronic kidney disease (CKD), stage V: Code(s): N18.5 - Chronic kidney disease, stage 5 Status: Chronic Assessment and Plan: Patient with diabetes, hypertension, vascular disease, recurrent nephrolithiasis + UTIs and what essentially appears to be only one kidney providing functionality based on previous imaging. 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 Will give additional dose of 5 units this morning (5) A-fib: Qualifiers: Atrial fibrillation type: unspecified Qualified Code(s): I48.91 - Unspecified atrial fibrillation Code(s): I48.91 - Unspecified atrial fibrillation Status: Acute Assessment and Plan: Patient with hx of afib. Was on Eliquis prior to admission, however Eliquis was held for invasive procedure 02/28 Eliquis resumed ECHO Summary ? 1. Technically difficult study. ? 2. Left ventricular chamber dimension is normal. ? 3. Left ventricular systolic function is lower limits of normal, estimated at 50-55%. ? 4. There is mildly increased left ventricular wall thickness. ? 5. Right ventricular systolic function is normal. ? 6. Left atrial chamber dimension is severely enlarged. ? 7. Right atrial chamber dimension is mildly enlarged. ? 8. There is mild aortic valve regurgitation. ? 9. There is mild mitral valve regurgitation. ? 10. There is mild to moderate tricuspid valve regurgitation. ? 11. Pericardial effusion is present. Pericardial effusion is trivial in size anteriorly, and is small in size posteriorly. ? 12. Left pleural effusion present. (6) Acute UTI: Code(s): N39.0 - Urinary tract infection, site not specified St
[2024-03-03] MEDS: EPOETIN ALFA-EPBX 10,000 UNITS/ML VIAL 10000 UNITS IV PUSH (09:20)
[2024-03-03 12:08] LABS: Glucose Point of Care 148 mg/dl (65-105)
[2024-03-03] MEDS: HEPARIN SODIUM 1,000 UNITS/ML VIAL 5000 UNITS (12:39)
[2024-03-03] MEDS: methylPHENIDATE HCL (*CRX) 10 MG TABLET PO (12:43)
--- NOTE | 2024-03-03 12:57 | P.PNNP_ITS ---
Progress Note: A&P Assessment and Plan (1) ESRD (end stage renal disease): Code(s): N18.6 - End stage renal disease Status: Chronic Assessment and Plan: * creatinine has been running in the 3.2 - 3.6mg/dl range in the last 6 months * slow and ongoing progression of kidney disease over the last 2 years with recent deterioration noted in September 2023 * some concerns regarding possible uremic symptoms (poor oral intake, decreased energy level/increased fatigue, confusion,...etc) recently * due to her diabetes, hypertension, vascular disease, recurrent nephrolithiasis + UTIs and what essentially appears to be only one kidney providing functionality based on previous imaging * renal scan in 10/25/14 with poor right kidney function which is 16% of total renal function * s/p tunneled HD catheter placement (on 02/28/24) * inititated on DEATH SURVEYS CODER/hemodialysis. Dialysis is underway * 3L removed. * Potassium is okay. BUN and creatinine are gradually better. (2) Acute respiratory failure: Code(s): J96.00 - Acute respiratory failure, unspecified whether with hypoxia or hypercapnia Status: Acute Assessment and Plan: * felt to be secondary to pulmonary edema/volume overload and encephalopathy * intubated on the evening of 02/26 * She continues to be on the ventilator. * imaging noted - small left pleurial effusion with left lower lobe atelectasis versus pneumonia * continue mechanical ventilatior support * on meropenem. * fluid removal with HD under way (3) Altered mental status: Code(s): R41.82 - Altered mental status, unspecified Status: Acute Assessment and Plan: * as noted on admission and at nursing facility * presumably multifactorial: Infections, medicines, hypercalcemia, and uremia. * Nursing said that she just got a sedative. (4) Acute UTI: Code(s): N39.0 - Urinary tract infection, site not specified Status: Acute Assessment and Plan: * admission urinalysis highly suggestive * complicated by indwelling catheter * on meropenem * Urine and blood cultures negative on 02/24 (5) Hypercalcemia: Code(s): E83.52 - Hypercalcemia Status: Chronic Assessment and Plan: * somewhat chronic * This is higher today. * check PTH, ionized Ca++, and vitamin D consider bone scan when she is more stable. * for completeness, check SPEP, UPEP, immunofixation as well * Since the calcium is rising will give calcitonin. (6) Benign essential hypertension: Code(s): I10 - Essential (primary) hypertension Status: Chronic Assessment and Plan: * reasonable control at this time * follow trend of hemodynamics (7) Anemia: Code(s): D64.9 - Anemia, unspecified Status: Chronic Assessment and Plan: * due to underlying CKD and acute illness * Hemoglobin 8.8 today. * Epogen with HD (8) DM type 2 (diabetes mellitus, type 2): Onset Date: ~2018 Qualifiers: Diabetes mellitus intermission coordinator insulin use: without intermission coordinator use Diabetes mellitus complication status: without complication Qualified Code(s): E11.9 - Type 2 diabetes mellitus without complications Code(s): E11.9 - Type 2 diabetes mellitus without complications Status: Chronic Assessment and Plan: * follow accu-cheks * glycemic control per hospitalists Subjective Date/time seen: 03/03/24 12:57 Interval history: Maria R is on dialysis. She was seen at 12:25 p.m.. Dialysis is going well. She is
--- NOTE | 2024-03-03 12:57 | PM.PNNEP ---
Progress Note: A&P Assessment and Plan (1) ESRD (end stage renal disease): Code(s): N18.6 - End stage renal disease Status: Chronic Assessment and Plan: creatinine has been running in the 3.2 - 3.6mg/dl range in the last 6 months slow and ongoing progression of kidney disease over the last 2 years with recent deterioration noted in September 2023 some concerns regarding possible uremic symptoms (poor oral intake, decreased energy level/increased fatigue, confusion,...etc) recently due to her diabetes, hypertension, vascular disease, recurrent nephrolithiasis + UTIs and what essentially appears to be only one kidney providing functionality based on previous imaging renal scan in 10/25/14 with poor right kidney function which is 16% of total renal function s/p tunneled HD catheter placement (on 02/28/24) inititated on IT SUPPORT MANAGER/hemodialysis. Dialysis is underway 3L removed. Potassium is okay. BUN and creatinine are gradually better. (2) Acute respiratory failure: Code(s): J96.00 - Acute respiratory failure, unspecified whether with hypoxia or hypercapnia Status: Acute Assessment and Plan: felt to be secondary to pulmonary edema/volume overload and encephalopathy intubated on the evening of 02/26 She continues to be on the ventilator. imaging noted - small left pleurial effusion with left lower lobe atelectasis versus pneumonia continue mechanical ventilatior support on meropenem. fluid removal with HD under way (3) Altered mental status: Code(s): R41.82 - Altered mental status, unspecified Status: Acute Assessment and Plan: as noted on admission and at nursing facility presumably multifactorial: Infections, medicines, hypercalcemia, and uremia. Nursing said that she just got a sedative. (4) Acute UTI: Code(s): N39.0 - Urinary tract infection, site not specified Status: Acute Assessment and Plan: admission urinalysis highly suggestive complicated by indwelling catheter on meropenem Urine and blood cultures negative on 02/24 (5) Hypercalcemia: Code(s): E83.52 - Hypercalcemia Status: Chronic Assessment and Plan: somewhat chronic This is higher today. check PTH, ionized Ca++, and vitamin D consider bone scan when she is more stable. for completeness, check SPEP, UPEP, immunofixation as well Since the calcium is rising will give calcitonin. (6) Benign essential hypertension: Code(s): I10 - Essential (primary) hypertension Status: Chronic Assessment and Plan: reasonable control at this time follow trend of hemodynamics (7) Anemia: Code(s): D64.9 - Anemia, unspecified Status: Chronic Assessment and Plan: due to underlying CKD and acute illness Hemoglobin 8.8 today. Epogen with HD (8) DM type 2 (diabetes mellitus, type 2): Onset Date: ~2018 Qualifiers: Diabetes mellitus nursing home insulin use: without equipment operator intermodal yard use Diabetes mellitus complication status: without complication Qualified Code(s): E11.9 - Type 2 diabetes mellitus without complications Code(s): E11.9 - Type 2 diabetes mellitus without complications Status: Chronic Assessment and Plan: follow accu-cheks glycemic control per hospitalists Subjective Date/time seen: 03/03/24 12:57 Interval history: Maria R is on dialysis. She was seen at 12:25 p.m.. Dialysis is going well. She is almost done and has had more than 3L removed. She did have some anxiety early on so did receive a sedative. She cannot give a history right now She is comfortable on the ventilator Exam Narrative: General: elderly female intubated/sedated and on mechanical ventilation Heart: normal S1 and S2; no rub or gallop Lungs: coarse breath sounds; decreased at bases Abdomen: soft, nontender, nondistended, positive bowel sounds Extremities: 1+ edema Skin: No raymond
[2024-03-03] MEDS: INSULIN ASPART (*BKC) 100 UNITS/ML SUB-Q (17:17)
[2024-03-03] MEDS: CALCITONIN SALMON INJ 400 UNITS/2 ML VIAL SUB-Q (17:18)
[2024-03-03 17:29] LABS: Glucose Point of Care 207 mg/dl (65-105)
[2024-03-03 19:03] LABS: Vitamin D 25 Hydroxy 40.2 ng/mL
[2024-03-03 19:07] LABS: Parathyroid Intact 466.2 pg/mL (7.5-53.5)
[2024-03-03 20:29] LABS: Glucose Point of Care 190 mg/dl (65-105)
[2024-03-03] MEDS: dexmedeTOMIDine 400 MCG/100 ML 400 MCG/100 ML BAG 8.3 MCG IV CONT (20:30)
[2024-03-04] VITALS (41 sets, daily range): BP systolic 103–159; BP diastolic 59–100; PULSE 52–118; RESP 15–36; TEMP 36.4–37.7; O2SAT 92–100
[2024-03-04] MEDS: INSULIN ASPART (*BKC) 100 UNITS/ML SUB-Q ×2 (01:00→05:48)
[2024-03-04 01:13] LABS: Glucose Point of Care 223 mg/dl (65-105)
[2024-03-04 04:57] LABS: Alveolar/Arterial O2 Gradient 86.7 mmHg; Base Excess ABG 6.8 mEq/l (+/-2.0); Carboxyhemoglobin 0.4 % THb (0-2.0); Fractional Inspired Oxygen 35 %; HCO3 ABG 31.6 mEq/l (22.0-26.0); Methemoglobin ABG 0.3 %THb (0-1.5); Oxygen Content ABG 13.3 %vol (16.0-22.0); Oxygen Saturation ABG 98.1 % (95.0-100.0); Oxyhemoglobin 97.8 % THb (90.0-100.0); PCO2 ABG 46.4 mmHg (35.0-45.0); PO2 ABG 108.9 mmHg (80.0-100.0); PO2 FiO2 Ratio Arterial Blood 3.11 %; Reduced Hemoglobin 1.5 %THb (0-5.0); Total Hemoglobin 9.5 g/dL (12.0-18.0); pH ABG 7.451 (7.350-7.450)
[2024-03-04 04:59] LABS: Device VENTILATOR; Modified Allen's Test Pass; Site Drawn LEFT RADIAL
[2024-03-04 05:00] LABS: Arterial Blood Gas PEEP 5 cmH2O; Arterial Blood Gas Tidal Volume 350 ml; Arterial Blood Gas Vent Mode CMV; Arterial Blood Gas Ventilator rate 16 /MIN
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
[2024-03-04] MEDS: dexmedeTOMIDine 400 MCG/100 ML 400 MCG/100 ML BAG 13.83 MCG IV CONT (05:48)
[2024-03-04] MEDS: LANSOPRAZOLE ODT 30 MG TAB.RAP.DR FEED TUBE (05:49)
[2024-03-04] MEDS: SALINE LOCK FLUSH 10 ML IV PUSH ×3 (05:49→22:00)
[2024-03-04 06:09] LABS: Glucose Point of Care 202 mg/dl (65-105)
[2024-03-04 06:24] LABS: Hematocrit 29.3 % (37.0-47.0); Hemoglobin 8.8 g/dL (12.0-15.0); Mean Corpuscular Hemoglobin 29.2 pg (26-34); Mean Corpuscular Volume 97.3 fl (80-100); Mean Platelet Volume 10.9 fl (7.4-10.4); Platelet Count Result 169 k/mm3 (150-375); Red Blood Count 3.01 M/mm3 (4.2-5.4); Red Cell Distribution Width 14.5 % (11.5-14.5); White Blood Count 6.9 K/mm3 (4.5-10.0)
[2024-03-04 06:36] LABS: Alanine Aminotransferase 13 U/L (6-35); Albumin Level 3.5 g/dL (3.5-5.1); Alkaline Phosphatase 56 U/L (38-126); Anion Gap 3 mmol/L (4-12); Aspartate Amino Transferase 23 U/L (14-36); Bilirubin,Total 0.9 mg/dL (0.2-1.3); Blood Urea Nitrogen 24 mg/dL (7-17); Calcium 9.8 mg/dL (8.4-10.2); Carbon Dioxide 31 mmol/L (22-30); Chloride 101 mmol/L (98-107); Estimated CRCL calculation 29 ml/min; Estimated Glomerular Filt Rate 24; Glucose 192 mg/dL (65-110); Magnesium 2.2 mg/dL (1.6-2.3); Potassium 3.6 mmol/L (3.4-5.0); Sodium 135 mmol/L (137-145)
[2024-03-04 06:46] LABS: Parathyroid Intact 651.1 pg/mL (7.5-53.5)
[2024-03-04 07:11] LABS: Vitamin D 25 Hydroxy 40.3 ng/mL
--- NOTE | 2024-03-04 08:59 | WPDINTPN ---
Progress Note: A&P Assessment and Plan (1) Acute respiratory failure: Code(s): J96.00 - Acute respiratory failure, unspecified whether with hypoxia or hypercapnia Status: Acute Assessment and Plan: Multifactorial Acute Respiratory failure secondary to pulmonary edema, encephalopathy Patient intubated 02/26. ABG reviewed and chest x-ray reviewed Continue full mechanical ventilation support to prevent hypoxemia/hypercarbia and end organ damage. Settings PEEP 5, FiO2 30 Patient placed on PSV weaning trial 02/25 this morning Completed course of meropenum Currently on low-dose Precedex infusion for agitation and delirium (2) Altered mental status: Code(s): R41.82 - Altered mental status, unspecified Status: Acute Assessment and Plan: Likely toxic metabolic encephalopathy. -Ammonia and TSH normal -Head CT was negative -Possible UTI with suggestive UA. However 02/24 urine culture negative. Patient has chronic indwelling Braswell and has history of UTIs. She is on antibiotics meropenem. Vancomycin DC'd on 02/28 -Her WBC and procalcitonin level was normal -02/24 Blood culture with no growth to date -Patient was sedated with Versed fentanyl which is now off -Prior to intubation patient was moving all 4 extremities. A CVA cannot be ruled out at this time unable to perform MRI on him patient on mechanical ventilator and [facility] It will not exchange administrator at this time patient does move all extremities -Patient has a-fib, ECHO results below - 03/03 resume home dose of methylphenidate (3) Chronic kidney disease (CKD), stage V: Code(s): N18.5 - Chronic kidney disease, stage 5 Status: Chronic Assessment and Plan: Patient with diabetes, hypertension, vascular disease, recurrent nephrolithiasis + UTIs and what essentially appears to be only one kidney providing functionality based on previous imaging. Creatinine has been running in the 3.2 - 3.6mg/dl range in the last 6 months -Some concern for uremic symptoms recently -Nephrology following -CULLET CRUSHER/dialysis in the near future -Dialysis catheter inserted 02/28/24 and patient started on hemodialysis - 03/03 patient was dialyzed -Follow labs and UOP (4) DM type 2 (diabetes mellitus, type 2): Onset Date: ~2018 Qualifiers: Diabetes mellitus correction insulin use: without correction use Diabetes mellitus complication status: without complication Qualified Code(s): E11.9 - Type 2 diabetes mellitus without complications Code(s): E11.9 - Type 2 diabetes mellitus without complications Status: Chronic Assessment and Plan: Continue Accu-Cheks sent sliding scale Continue lantus and increase dose to 10 units. Will give additional fine units this morning (5) A-fib: Qualifiers: Atrial fibrillation type: unspecified Qualified Code(s): I48.91 - Unspecified atrial fibrillation Code(s): I48.91 - Unspecified atrial fibrillation Status: Acute Assessment and Plan: Patient with hx of afib. Was on Eliquis prior to admission, however Eliquis was held for invasive procedure 02/28 Eliquis resumed ECHO Summary ? 1. Technically difficult study. ? 2. Left ventricular chamber dimension is normal. ? 3. Left ventricular systolic function is lower limits of normal, estimated at 50-55%. ? 4. There is mildly increased left ventricular wall thickness. ? 5. Right ventricular systolic function is normal. ? 6. Left atrial chamber dimension is severely enlarged. ? 7. Right atrial chamber dimension is mildly enlarged. ? 8. There is mild aortic valve regurgitation. ? 9. There is mild mitral valve regurgitation. ? 10. There is mild to moderate tricuspid valve regurgitation. ? 11. Pericardial effusion is present. Pericardial effusion is trivial in size anteriorly, and is small in size posteriorly. ? 12. Left pleural effusion present. (6) Acute UTI: Code(s): N39.0 - Urinary tract infection, site not specified Status: A
[2024-03-04] MEDS: POTASSIUM CHLORIDE 20 MEQ PACKET (FOR LIQUID) FEED TUBE (09:13)
[2024-03-04] MEDS: CYANOCOBALAMIN 1,000 MCG TABLET 1000 MCG PO (09:14)
[2024-03-04] MEDS: MINERAL OIL/WHITE PETROLATUM OINTMENT 1 APPLIC EACH EYE (09:14)
[2024-03-04] MEDS: APIXABAN 2.5 MG TABLET PO (09:14)
[2024-03-04] MEDS: polyethylene glycoL 3350 17 GM POWD.PACK PO (09:14)
[2024-03-04] MEDS: CHOLECALCIFEROL 1,000 UNITS TABLET 2000 UNITS PO (09:14)
[2024-03-04] MEDS: ACIDOPHILUS/BULGARICUS CHEWABLE TABLET 1 TABLET PO ×2 (09:14→17:01)
[2024-03-04] MEDS: ROSUVASTATIN 10 MG TABLET PO (09:14)
[2024-03-04 09:27] LABS: Alveolar/Arterial O2 Gradient 75.6 mmHg; Base Excess ABG 4.4 mEq/l (+/-2.0); Carboxyhemoglobin 0.5 % THb (0-2.0); Fractional Inspired Oxygen 35 %; Methemoglobin ABG 0.3 %THb (0-1.5); Oxygen Content ABG 13.6 %vol (16.0-22.0); Oxygen Saturation ABG 98.2 % (95.0-100.0); Oxyhemoglobin 97.8 % THb (90.0-100.0); PCO2 ABG 49.7 mmHg (35.0-45.0); PO2 ABG 116.2 mmHg (80.0-100.0); PO2 FiO2 Ratio Arterial Blood 3.32 %; Reduced Hemoglobin 1.4 %THb (0-5.0); Total Hemoglobin 9.7 g/dL (12.0-18.0); pH ABG 7.398 (7.350-7.450)
[2024-03-04] MEDS: methylPHENIDATE HCL (*CRX) 10 MG TABLET PO ×2 (09:27→12:44)
[2024-03-04 09:29] LABS: Site Drawn LEFT RADIAL
[2024-03-04 09:30] LABS: Device VENTILATOR
[2024-03-04] MEDS: INSULIN GLARGINE (*BKC) 100 UNITS/ML SUB-Q (09:30)
[2024-03-04 09:31] LABS: Arterial Blood Gas PEEP 5 cmH2O; Arterial Blood Gas Vent Mode PRESSURE SUPPORT
[2024-03-04 09:32] LABS: Arterial Blood Gas Pressure Support 5 cmH2O
[2024-03-04] MEDS: CALCITONIN SALMON INJ 400 UNITS/2 ML VIAL SUB-Q (10:07)
--- NOTE | 2024-03-04 11:51 | P.PNNP_ITS ---
Progress Note: A&P Assessment and Plan (1) ESRD (end stage renal disease): Code(s): N18.6 - End stage renal disease Status: Chronic Assessment and Plan: * creatinine has been running in the 3.2 - 3.6mg/dl range in the last 6 months * slow and ongoing progression of kidney disease over the last 2 years with recent deterioration noted in September 2023 * some concerns regarding possible uremic symptoms (poor oral intake, decreased energy level/increased fatigue, confusion,...etc) recently * due to her diabetes, hypertension, vascular disease, recurrent nephrolithiasis + UTIs and what essentially appears to be only one kidney providing functionality based on previous imaging * renal scan in 10/25/14 with poor right kidney function which is 16% of total renal function * s/p tunneled HD catheter placement (on 02/28/24) * Dialysis finished yesterday. The patient did well on the treatment. * Potassium and bicarbonate are okay. BUN is doing pretty well. * Volume status looks okay right now. She does have a little bit of swelling but oxygenation is okay so we can assess in the morning to decide when to do the next dialysis. (2) Acute respiratory failure: Code(s): J96.00 - Acute respiratory failure, unspecified whether with hypoxia or hypercapnia Status: Acute Assessment and Plan: * felt to be secondary to pulmonary edema/volume overload and encephalopathy * intubated on the evening of 02/26 * She continues to be on the ventilator. * Still has a little bit too much fluid. * Reassess tomorrow for more fluid removal. * Very anxious and agitated so going back on Precedex. (3) Altered mental status: Code(s): R41.82 - Altered mental status, unspecified Status: Acute Assessment and Plan: * as noted on admission and at nursing facility * presumably multifactorial: Infections, medicines, hypercalcemia, and uremia. * Precedex as needed (4) Acute UTI: Code(s): N39.0 - Urinary tract infection, site not specified Status: Acute Assessment and Plan: * admission urinalysis highly suggestive * complicated by indwelling catheter * on meropenem * Urine and blood cultures negative on 02/24 (5) Hypercalcemia: Code(s): E83.52 - Hypercalcemia Status: Chronic Assessment and Plan: * somewhat chronic * This is higher today. * check PTH, ionized Ca++, and vitamin D. * for completeness, check SPEP, UPEP, immunofixation as well * Will need a bone scan if the above tests are negative. * Received calcitonin last evening and will get more today. * Calcium level down to 9.8. (6) Benign essential hypertension: Code(s): I10 - Essential (primary) hypertension Status: Chronic Assessment and Plan: * Systolic 120/80. * She is on metoprolol but this is on hold. She gets amlodipine at home which is also on hold * No need to add antihypertensives right now as the blood pressure is doing well. (7) Anemia: Code(s): D64.9 - Anemia, unspecified Status: Chronic Assessment and Plan: * due to underlying CKD and acute illness * Hemoglobin 8.8 today. * Epogen with HD (8) DM type 2 (diabetes mellitus, type 2): Onset Date: ~2018 Qualifiers: Diabetes mellitus watermaster insulin use: without senior care use Diabetes mellitus complication status: without complication Qualified Code(s): E11.9 - Type 2 diabetes mellitus without complications Code(s): E11.9 - Type 2 diabetes mellitus without complications Status: Chronic
--- NOTE | 2024-03-04 11:51 | PM.PNNEP ---
Progress Note: A&P Assessment and Plan (1) ESRD (end stage renal disease): Code(s): N18.6 - End stage renal disease Status: Chronic Assessment and Plan: creatinine has been running in the 3.2 - 3.6mg/dl range in the last 6 months slow and ongoing progression of kidney disease over the last 2 years with recent deterioration noted in September 2023 some concerns regarding possible uremic symptoms (poor oral intake, decreased energy level/increased fatigue, confusion,...etc) recently due to her diabetes, hypertension, vascular disease, recurrent nephrolithiasis + UTIs and what essentially appears to be only one kidney providing functionality based on previous imaging renal scan in 10/25/14 with poor right kidney function which is 16% of total renal function s/p tunneled HD catheter placement (on 02/28/24) Dialysis finished yesterday. The patient did well on the treatment. Potassium and bicarbonate are okay. BUN is doing pretty well. Volume status looks okay right now. She does have a little bit of swelling but oxygenation is okay so we can assess in the morning to decide when to do the next dialysis. (2) Acute respiratory failure: Code(s): J96.00 - Acute respiratory failure, unspecified whether with hypoxia or hypercapnia Status: Acute Assessment and Plan: felt to be secondary to pulmonary edema/volume overload and encephalopathy intubated on the evening of 02/26 She continues to be on the ventilator. Still has a little bit too much fluid. Reassess tomorrow for more fluid removal. Very anxious and agitated so going back on Precedex. (3) Altered mental status: Code(s): R41.82 - Altered mental status, unspecified Status: Acute Assessment and Plan: as noted on admission and at nursing facility presumably multifactorial: Infections, medicines, hypercalcemia, and uremia. Precedex as needed (4) Acute UTI: Code(s): N39.0 - Urinary tract infection, site not specified Status: Acute Assessment and Plan: admission urinalysis highly suggestive complicated by indwelling catheter on meropenem Urine and blood cultures negative on 02/24 (5) Hypercalcemia: Code(s): E83.52 - Hypercalcemia Status: Chronic Assessment and Plan: somewhat chronic This is higher today. check PTH, ionized Ca++, and vitamin D. for completeness, check SPEP, UPEP, immunofixation as well Will need a bone scan if the above tests are negative. Received calcitonin last evening and will get more today. Calcium level down to 9.8. (6) Benign essential hypertension: Code(s): I10 - Essential (primary) hypertension Status: Chronic Assessment and Plan: Systolic 120/80. She is on metoprolol but this is on hold. She gets amlodipine at home which is also on hold No need to add antihypertensives right now as the blood pressure is doing well. (7) Anemia: Code(s): D64.9 - Anemia, unspecified Status: Chronic Assessment and Plan: due to underlying CKD and acute illness Hemoglobin 8.8 today. Epogen with HD (8) DM type 2 (diabetes mellitus, type 2): Onset Date: ~2018 Qualifiers: Diabetes mellitus terminal operator insulin use: without intermediate use Diabetes mellitus complication status: without complication Qualified Code(s): E11.9 - Type 2 diabetes mellitus without complications Code(s): E11.9 - Type 2 diabetes mellitus without complications Status: Chronic Assessment and Plan: follow accu-cheks glycemic control per hospitalists Subjective Date/time seen: 03/04/24 11:51 Interval history: Daughter in the room. More awake today. Agitated. Precedex was held but now is going to be restarted. Exam Narrative: General: elderly female intubated/sedated and on mechanical ventilation Heart: normal S1 and S2; no rub or gallop Lungs: coarse breath sounds
[2024-03-04 12:53] LABS: Glucose Point of Care 162 mg/dl (65-105)
[2024-03-04] MEDS: dexmedeTOMIDine 400 MCG/100 ML 400 MCG/100 ML BAG 8.3 MCG IV CONT (17:09)
[2024-03-04 17:23] LABS: Glucose Point of Care 193 mg/dl (65-105)
--- NOTE | 2024-03-04 18:29 | PM.IMPN ---
Progress Note: A&P Assessment and Plan (1) Altered mental status: Code(s): R41.82 - Altered mental status, unspecified Status: Acute (2) Chronic kidney disease (CKD), stage V: Code(s): N18.5 - Chronic kidney disease, stage 5 Status: Chronic (3) DM type 2 (diabetes mellitus, type 2): Onset Date: ~2018 Qualifiers: Diabetes mellitus group home insulin use: without termite helper use Diabetes mellitus complication status: without complication Qualified Code(s): E11.9 - Type 2 diabetes mellitus without complications Code(s): E11.9 - Type 2 diabetes mellitus without complications Status: Chronic (4) Acute UTI: Code(s): N39.0 - Urinary tract infection, site not specified Status: Acute (5) Dementia: Qualifiers: Dementia type: unspecified type Dementia severity: moderate Dementia behavioral or psychological symptom: with agitation Qualified Code(s): F03.B11 - Unspecified dementia, moderate, with agitation Code(s): F03.90 - Unspecified dementia, unspecified severity, without behavioral disturbance, psychotic disturbance, mood disturbance, and anxiety Status: Acute (6) Hypercalcemia: Code(s): E83.52 - Hypercalcemia Status: Chronic (7) Acute respiratory failure: Code(s): J96.00 - Acute respiratory failure, unspecified whether with hypoxia or hypercapnia Status: Acute Plan 78-year-old female with a past medical history dementia, chronic kidney disease stage 5 not on dialysis, CHF, essential hypertension, chronic indwelling Braswell catheter, insulin-dependent diabetes mellitus, and other comorbidities presented from [facility] due to increased confusion and combative behaviors. The history was provided by patient's only daughter. The patient is typically pleasantly confused and cooperative but had been getting cantankerous with the staff members at the [facility] facility. She also appeared to be a bit more disoriented. Admission evaluation revealed a UTI and acute on chronic renal failure. Previously dialysis discussion had artery been started as outpatient. IV antibiotics were started. Patient admitted on 02/25/2024. On 02/27/2024 the patient became hypoxic and obtunded. She was thus intubated and transferred to head CT did not demonstrate acute changes. ABG demonstrated hypercarbia. 03/04 patient's care is guided by sprinkler installer and painter helper spray. She is currently intubated and sedated and it is difficult to assess her mental status. Weaning trials continue. Due to acute on chronic renal failure dialysis catheter placed on 02/28/2024. Dialysis sessions and electrolyte management per Nephrology. Blood sugars remain uncontrolled insulin has been increased per sprinkler installer. Eliquis held for based procedure and on 02/28 it has been resumed at 2.5 mg p.o. b.i.d. FEN: Tube feeds. Saline lock IV. GI prophylaxis: Ppi DVT prophylaxis: Eliquis 2.5 mg p.o. b.i.d. Lines: Tunneled dialysis catheter, chronic indwelling Braswell catheter, ETT Code Status: Full code Dispo: Stable in ICU Subjective Date/time seen: 03/04/24 18:29 Interval history: Intubated. Cam positive, RASS 0 Review of Systems Review of Systems: All systems reviewed & are unremarkable except as noted in HPI and below (Subjective) Exam Const: General: comfortable and no acute distress Other: Intubated and sedated Neck: Neck: supple Resp: Other: Mechanical breath sounds Cardio: Rate: regular rate Rhythm: regular rhythm GI: GI Palp: Yes Soft to palpation and No Tenderness to palpation present (GI) Extrem: General: edema Objective Data Vital Signs Vital Signs: Vital Signs - 24 hr 03/03/24 18:46 03/03/24 19:05 03/03/24 20:30 Temperature Pulse Rate 85 84 Respiratory Rate 22 H 22 H Blood Pressure Pulse Oximetry Oxygen Delivery Fraction of Inspired Oxygen 50 03/03/24 20:30 03/03/24 20:
--- NOTE | 2024-03-04 20:48 | PC.NURSE ---
Patient self extubated. Code called for emergent reintubation. Patient talking, maintaining oxygen on nonrebreather. code blue cancelled. patient placed on airvo. Daughter called and informed.
--- NOTE | 2024-03-04 21:00 | PC.NURSE ---
Dr Schuler notified of patient agitation, elevated BP, and tachypnea. precedex being increased per protocol. Order for 2 mg ativan IVP received.
[2024-03-04] MEDS: LORazepam INJ (*CRX) 2 MG/ML VIAL IV PUSH (21:11)
[2024-03-04] MEDS: INSULIN GLARGINE (*BKC) 100 UNITS/ML 10 UNITS SUB-Q (21:17)
[2024-03-04] MEDS: flumazeniL 0.5 MG/5 ML VIAL 1 MG IV PUSH (21:54)
--- NOTE | 2024-03-04 22:01 | PC.NURSE ---
Patient started to drop in SpO2 after admin of ativan. Precedex put on hold and the hospitalist was contacted. Flumazenil ordered and was given. Good response from patient. RR currently 19 SpO2 100% patient relaxed an answering questions. Code Machine Operator was contacted as well, he agreed with therapy, but warned to stay prepared for intubation. Recheck ABG in 30 mins.
[2024-03-04 23:12] LABS: Alveolar/Arterial O2 Gradient 129.9 mmHg; Base Excess ABG 6.2 mEq/l (+/-2.0); Fractional Inspired Oxygen 35 %; HCO3 ABG 27.4 mEq/l (22.0-26.0); Oxygen Content ABG 13.8 %vol (16.0-22.0); Oxygen Saturation ABG 97.9 % (95.0-100.0); PO2 ABG 87.1 mmHg (80.0-100.0); PO2 FiO2 Ratio Arterial Blood 2.49 %
[2024-03-04 23:14] LABS: Device HIGH FLOW NASAL CANN; Modified Allen's Test Pass; Site Drawn LEFT RADIAL; pH ABG 7.609 (7.350-7.450)
[2024-03-04 23:53] LABS: Glucose Point of Care 196 mg/dl (65-105)
--- NOTE | 2024-03-04 23:58 | PC.NURSE ---
Dr. Schuler came to re-evaluate the patient at 2345. Diltiazem ordered, otherwise continue to monitor for now. Verbalized no need to notify Gricelda at this time.
[2024-03-05] VITALS (41 sets, daily range): BP systolic 87–168; BP diastolic 63–115; PULSE 57–474; RESP 11–32; TEMP 36.2–38.2; O2SAT 93–99
[2024-03-05] MEDS: dilTIAZem HCl INJ 25 MG/5 ML VIAL 10 MG IV PUSH (00:13)
[2024-03-05 00:37] LABS: Glucose Point of Care 158 mg/dl (65-105)
[2024-03-05] MEDS: CALCITONIN SALMON INJ 400 UNITS/2 ML VIAL SUB-Q ×3 (00:51→20:46)
[2024-03-05] MEDS: dexmedeTOMIDine 400 MCG/100 ML 400 MCG/100 ML BAG 5.53 MCG IV CONT (04:17)
[2024-03-05 05:37] LABS: Alveolar/Arterial O2 Gradient 63.2 mmHg; Base Excess ABG 4.6 mEq/l (+/-2.0); Carboxyhemoglobin 0.8 % THb (0-2.0); Fractional Inspired Oxygen 34 %; HCO3 ABG 30.4 mEq/l (22.0-26.0); Methemoglobin ABG 0.3 %THb (0-1.5); Oxygen Content ABG 13.1 %vol (16.0-22.0); Oxygen Saturation ABG 98.2 % (95.0-100.0); Oxyhemoglobin 97.6 % THb (90.0-100.0); PCO2 ABG 51.6 mmHg (35.0-45.0); PO2 ABG 119.1 mmHg (80.0-100.0); Reduced Hemoglobin 1.3 %THb (0-5.0); Total Hemoglobin 9.4 g/dL (12.0-18.0); pH ABG 7.388 (7.350-7.450)
[2024-03-05 05:38] LABS: Device HIGH FLOW THERAPY; Modified Allen's Test Unable to perform; Site Drawn LEFT RADIAL
[2024-03-05] MEDS: SALINE LOCK FLUSH 10 ML IV PUSH ×3 (05:52→20:43)
[2024-03-05 05:59] LABS: Hematocrit 28.3 % (37.0-47.0); Hemoglobin 8.5 g/dL (12.0-15.0); Mean Corpuscular Hemoglobin 29.2 pg (26-34); Mean Corpuscular Volume 97.3 fl (80-100); Mean Platelet Volume 10.9 fl (7.4-10.4); Platelet Count Result 182 k/mm3 (150-375); Red Blood Count 2.91 M/mm3 (4.2-5.4); Red Cell Distribution Width 14.1 % (11.5-14.5); White Blood Count 8.4 K/mm3 (4.5-10.0)
[2024-03-05 06:06] LABS: Alanine Aminotransferase 12 U/L (6-35); Albumin Level 3.4 g/dL (3.5-5.1); Alkaline Phosphatase 53 U/L (38-126); Anion Gap 3 mmol/L (4-12); Aspartate Amino Transferase 24 U/L (14-36); Bilirubin,Total 1.1 mg/dL (0.2-1.3); Blood Urea Nitrogen 36 mg/dL (7-17); Carbon Dioxide 32 mmol/L (22-30); Chloride 103 mmol/L (98-107); Estimated CRCL calculation 20 ml/min; Estimated Glomerular Filt Rate 16; Glucose 146 mg/dL (65-110); Magnesium 2.5 mg/dL (1.6-2.3); Phosphorus 3.4 mg/dL (2.5-4.5); Potassium 4.2 mmol/L (3.4-5.0); Sodium 138 mmol/L (137-145)
[2024-03-05] MEDS: MINERAL OIL/WHITE PETROLATUM OINTMENT 1 APPLIC EACH EYE ×2 (08:40→20:43)
--- NOTE | 2024-03-05 09:29 | PCSTNOTE ---
Patient not awake and alert enough at this time, 8:15, to participate in BSE. BASSEM [place], will contact LATHE SET UP PERSON when patient better able to safely participate.
--- NOTE | 2024-03-05 10:11 | P.PNNP_ITS ---
Progress Note: A&P Assessment and Plan (1) ESRD (end stage renal disease): Code(s): N18.6 - End stage renal disease Status: Chronic Assessment and Plan: * creatinine has been running in the 3.2 - 3.6mg/dl range in the last 6 months * slow and ongoing progression of kidney disease over the last 2 years with recent deterioration noted in September 2023 * some concerns regarding possible uremic symptoms (poor oral intake, decreased energy level/increased fatigue, confusion,...etc) recently * due to her diabetes, hypertension, vascular disease, recurrent nephrolithiasis + UTIs and what essentially appears to be only one kidney providing functionality based on previous imaging * renal scan in 10/25/14 with poor right kidney function which is 16% of total renal function * s/p tunneled HD catheter placement (on 02/28/24) * HD today and continue M/W/F schedule for now... (2) Acute respiratory failure: Code(s): J96.00 - Acute respiratory failure, unspecified whether with hypoxia or hypercapnia Status: Acute Assessment and Plan: * felt to be secondary to pulmonary edema/volume overload and encephalopathy * intubated on the evening of 02/26 * self extubated on evening of 03/04 * fluid removal as tolerated with HD/DUF * monitor respiratory status - remains at risk for re-intubation (3) Altered mental status: Code(s): R41.82 - Altered mental status, unspecified Status: Acute Assessment and Plan: * as noted on admission and at nursing facility * presumably multifactorial: infections, medicines, hypercalcemia, and uremia. * follow mentation (4) Acute UTI: Code(s): N39.0 - Urinary tract infection, site not specified Status: Acute Assessment and Plan: * admission urinalysis highly suggestive * complicated by indwelling catheter * on meropenem * Urine and blood cultures negative on 02/24 (5) Hypercalcemia: Code(s): E83.52 - Hypercalcemia Status: Chronic Assessment and Plan: * somewhat chronic * evaluation to date: * ionized calcium okay * PTH mildly elevated * Vitamin D (25-OH) okay * SPEP/UPEP and immunofixation pending * on calcitonin * transiently down to 9.8 but back up to 11.0 * may need bone scan * adjusting calcium bath with dialysis (6) Benign essential hypertension: Code(s): I10 - Essential (primary) hypertension Status: Chronic Assessment and Plan: * reasonable control * follow trend of hemodynamics (7) Anemia: Code(s): D64.9 - Anemia, unspecified Status: Chronic Assessment and Plan: * due to underlying CKD ( with progression of ESRD) and acute illness * Epogen with HD * follow trend of H/H (8) DM type 2 (diabetes mellitus, type 2): Onset Date: ~2018 Qualifiers: Diabetes mellitus complication status: without complication Diabetes mellitus intermediate manager insulin use: without shelter use Qualified Code(s): E11.9 - Type 2 diabetes mellitus without complications Code(s): E11.9 - Type 2 diabetes mellitus without complications Status: Chronic Assessment and Plan: * follow accu-cheks * glycemic control per hospitalists Will continue to follow. Subjective Date/time seen: 03/05/24 10:11 Interval history: Follow-up for chronic kidney disease (wih progression to ESRD on hemodialysis) Chart reviewed since last seen -- tolerating dialysis treatment at the time of my visit (seen on HD at 10:00AM); s
--- NOTE | 2024-03-05 10:11 | PM.PNNEP ---
Progress Note: A&P Assessment and Plan (1) ESRD (end stage renal disease): Code(s): N18.6 - End stage renal disease Status: Chronic Assessment and Plan: creatinine has been running in the 3.2 - 3.6mg/dl range in the last 6 months slow and ongoing progression of kidney disease over the last 2 years with recent deterioration noted in September 2023 some concerns regarding possible uremic symptoms (poor oral intake, decreased energy level/increased fatigue, confusion,...etc) recently due to her diabetes, hypertension, vascular disease, recurrent nephrolithiasis + UTIs and what essentially appears to be only one kidney providing functionality based on previous imaging renal scan in 10/25/14 with poor right kidney function which is 16% of total renal function s/p tunneled HD catheter placement (on 02/28/24) HD today and continue M/W/F schedule for now... (2) Acute respiratory failure: Code(s): J96.00 - Acute respiratory failure, unspecified whether with hypoxia or hypercapnia Status: Acute Assessment and Plan: felt to be secondary to pulmonary edema/volume overload and encephalopathy intubated on the evening of 02/26 self extubated on evening of 03/04 fluid removal as tolerated with HD/DUF monitor respiratory status - remains at risk for re-intubation (3) Altered mental status: Code(s): R41.82 - Altered mental status, unspecified Status: Acute Assessment and Plan: as noted on admission and at nursing facility presumably multifactorial: infections, medicines, hypercalcemia, and uremia. follow mentation (4) Acute UTI: Code(s): N39.0 - Urinary tract infection, site not specified Status: Acute Assessment and Plan: admission urinalysis highly suggestive complicated by indwelling catheter on meropenem Urine and blood cultures negative on 02/24 (5) Hypercalcemia: Code(s): E83.52 - Hypercalcemia Status: Chronic Assessment and Plan: somewhat chronic evaluation to date: ionized calcium okay PTH mildly elevated Vitamin D (25-OH) okay SPEP/UPEP and immunofixation pending on calcitonin transiently down to 9.8 but back up to 11.0 may need bone scan adjusting calcium bath with dialysis (6) Benign essential hypertension: Code(s): I10 - Essential (primary) hypertension Status: Chronic Assessment and Plan: reasonable control follow trend of hemodynamics (7) Anemia: Code(s): D64.9 - Anemia, unspecified Status: Chronic Assessment and Plan: due to underlying CKD ( with progression of ESRD) and acute illness Epogen with HD follow trend of H/H (8) DM type 2 (diabetes mellitus, type 2): Onset Date: ~2018 Qualifiers: Diabetes mellitus complication status: without complication Diabetes mellitus fci insulin use: without fci use Qualified Code(s): E11.9 - Type 2 diabetes mellitus without complications Code(s): E11.9 - Type 2 diabetes mellitus without complications Status: Chronic Assessment and Plan: follow accu-cheks glycemic control per hospitalists Will continue to follow. Subjective Date/time seen: 03/05/24 10:11 Interval history: Follow-up for chronic kidney disease (mih progression to ESRD on hemodialysis) Chart reviewed since last seen -- tolerating dialysis treatment at the time of my visit (seen on HD at 10:00AM); self-extubated herself yesterday evening with the concern for possible re-intubation but patient able to maintain oxygenation with current therapy (high flow oxygen); fluctuating mentation noted as well. Exam Narrative: General: elderly female in NAD Heart: normal S1 and S2; no rub Lungs: coarse breath sounds; decreased at bases Abdomen: soft, nontender, nondistended, positive bowel sounds Extremities: 1+ edema bilaterally Skin: Warm and dry Objective Data Vital S
[2024-03-05 10:13] LABS: Ionized Calcium 5.5 mg/dL (4.7-5.5)
--- NOTE | 2024-03-05 10:20 | PCFNICU ---
ICU Rounding Note: Pt current nutrition is NPO awaiting bedside swallow eval. Nutrition recommendation: Diet order as recommended after evaluation for safe swallow Last recorded weight is 102.4 kg. Bowel Motility: BMs not charted Labs Reviewed: Hgb 8.5, Hct 28.3, Alb 3.4, BUN 36, Cre 2.8, Glu 158 Meds Noted: Precedex, Zofran, miralax, colace, Vit D Skin: No pressure injuries Additional Notes: Pt self-extubated and is now on nasal cannula O2. Tube feeds discontinued. Plan for bedside swallow evaluation later, possible speech eval. Monitoring for diet orders Following daily in ICU rounds. Monitoring intakes, weights, labs, supplement tolerance, plan of care Follow up in 5 days..
[2024-03-05] MEDS: EPOETIN ALFA-EPBX 10,000 UNITS/ML VIAL 10000 UNITS IV PUSH (10:56)
[2024-03-05 11:31] LABS: Glucose Point of Care 120 mg/dl (65-105)
[2024-03-05] MEDS: ALBUMIN HUMAN 25% 12.5 GM/50ML 50 ML IVPB (11:32)
[2024-03-05 12:58] LABS: Angiotensin Converting Enzyme 21 U/L (9-67)
[2024-03-05] MEDS: dexmedeTOMIDine 400 MCG/100 ML 400 MCG/100 ML BAG 8.3 MCG IV CONT (13:34)
[2024-03-05 13:58] LABS: Kappa\\Lambda Light Chains 2.08 (0.26-1.65); Lambda Light Chain 61.1 mg/L (5.7-26.3); Protein, Total 5.6 g/dL (6.1-8.1)
[2024-03-05 17:57] LABS: Glucose Point of Care 122 mg/dl (65-105)
[2024-03-05 20:35] LABS: Glucose Point of Care 121 mg/dl (65-105)
[2024-03-05] MEDS: INSULIN GLARGINE (*BKC) 100 UNITS/ML 10 UNITS SUB-Q (20:41)
[2024-03-05 23:49] LABS: Glucose Point of Care 106 mg/dl (65-105)
[2024-03-06] VITALS (40 sets, daily range): BP systolic 87–175; BP diastolic 41–146; PULSE 65–141; RESP 12–33; TEMP 0–38.2; O2SAT 93–100
[2024-03-06] MEDS: dexmedeTOMIDine 400 MCG/100 ML 400 MCG/100 ML BAG 8.3 MCG IV CONT (01:17)
[2024-03-06 05:09] LABS: Alveolar/Arterial O2 Gradient 88.2 mmHg; Base Excess ABG -0.3 mEq/l (+/-2.0); Carboxyhemoglobin 0.4 % THb (0-2.0); Fractional Inspired Oxygen 40 %; HCO3 ABG 25.3 mEq/l (22.0-26.0); Methemoglobin ABG 0.3 %THb (0-1.5); Oxygen Content ABG 14.8 %vol (16.0-22.0); Oxygen Saturation ABG 98.8 % (95.0-100.0); Oxyhemoglobin 98.3 % THb (90.0-100.0); PCO2 ABG 45.1 mmHg (35.0-45.0); PO2 ABG 145.1 mmHg (80.0-100.0); PO2 FiO2 Ratio Arterial Blood 3.63 %; Total Hemoglobin 10.5 g/dL (12.0-18.0); pH ABG 7.366 (7.350-7.450)
[2024-03-06 05:11] LABS: Modified Allen's Test Pass; Site Drawn RIGHT RADIAL
[2024-03-06 05:12] LABS: Device HIGH FLOW THERAPY
[2024-03-06 06:06] LABS: Basophils Percent Auto 0.5 % (0.2-1.2); Eosinophils Absolute Auto 0.2 K/mm3 (0-0.3); Eosinophils Percent Auto 2.5 % (0-4.4); Hematocrit 28.9 % (37.0-47.0); Hemoglobin 8.5 g/dL (12.0-15.0); Immature Granulocyte Absolute 0.05 K/mm3 (0.00-0.031); Immature Granulocyte Percent A 0.7 % (0-0.5); Lymphocytes Percent Auto 19.6 % (18.3-44.2); Mean Corpuscular HGB Conc 29.4 g/dl (32-36); Mean Corpuscular Hemoglobin 28.5 pg (26-34); Monocytes Absolute Auto 0.7 K/mm3 (0.1-0.6); Monocytes Percent Auto 9.3 % (2.6-8.5); Neutrophils Absolute Auto 5.2 K/mm3 (1.3-6.7); Neutrophils Percent Auto 67.4 % (45.5-73.1); Platelet Count Result 198 k/mm3 (150-375); Red Blood Count 2.98 M/mm3 (4.2-5.4); Red Cell Distribution Width 14.4 % (11.5-14.5); White Blood Count 7.7 K/mm3 (4.5-10.0)
[2024-03-06] MEDS: SALINE LOCK FLUSH 10 ML IV PUSH ×2 (06:13→21:21)
[2024-03-06 06:15] LABS: Alanine Aminotransferase 12 U/L (6-35); Albumin Level 3.4 g/dL (3.5-5.1); Alkaline Phosphatase 54 U/L (38-126); Anion Gap 4 mmol/L (4-12); Aspartate Amino Transferase 22 U/L (14-36); Bilirubin,Total 1.2 mg/dL (0.2-1.3); Blood Urea Nitrogen 23 mg/dL (7-17); Calcium 10.4 mg/dL (8.4-10.2); Carbon Dioxide 29 mmol/L (22-30); Chloride 106 mmol/L (98-107); Estimated CRCL calculation 24 ml/min; Estimated Glomerular Filt Rate 21; Glucose 83 mg/dL (65-110); Magnesium 2.3 mg/dL (1.6-2.3); Phosphorus 3.3 mg/dL (2.5-4.5); Potassium 3.8 mmol/L (3.4-5.0); Sodium 139 mmol/L (137-145)
[2024-03-06 06:43] LABS: Hypochromasia 1+; Platelet Estimate Adequate (Adequate); Schistocytes None Seen
[2024-03-06] MEDS: CALCITONIN SALMON INJ 400 UNITS/2 ML VIAL SUB-Q ×2 (08:46→21:21)
[2024-03-06] MEDS: APIXABAN 2.5 MG TABLET PO ×2 (08:46→17:45)
[2024-03-06] MEDS: CHOLECALCIFEROL 1,000 UNITS TABLET 2000 UNITS PO (08:46)
[2024-03-06] MEDS: polyethylene glycoL 3350 17 GM POWD.PACK PO (08:46)
[2024-03-06] MEDS: CYANOCOBALAMIN 1,000 MCG TABLET 1000 MCG PO (08:47)
[2024-03-06] MEDS: ROSUVASTATIN 10 MG TABLET PO (08:47)
[2024-03-06] MEDS: methylPHENIDATE HCL (*CRX) 10 MG TABLET PO (08:51)
--- NOTE | 2024-03-06 09:23 | WPDINTPN ---
Progress Note: A&P Assessment and Plan (1) Acute respiratory failure: Code(s): J96.00 - Acute respiratory failure, unspecified whether with hypoxia or hypercapnia Status: Acute Assessment and Plan: Multifactorial Acute Respiratory failure secondary to pulmonary edema, encephalopathy 02/26: Patient intubated 03/04: Self extubated - currently on high flow therapy, will try to wean to nasal cannula and evaluate Completed course of meropenem Currently on low-dose Precedex infusion for agitation and delirium, have asked RN to HOLD Precedex - Speech to follow for swallow test today (2) Altered mental status: Code(s): R41.82 - Altered mental status, unspecified Status: Acute Assessment and Plan: Likely toxic metabolic encephalopathy. -Ammonia and TSH normal -Head CT was negative -Possible UTI with suggestive UA. However 02/24 urine culture negative. Patient has chronic indwelling Braswell and has history of UTIs. -S/p full course of meropenem. Vancomycin DC'd on 02/28 -Her WBC and procalcitonin level was normal -02/24 Blood culture with no growth to date -Prior to intubation patient was moving all 4 extremities. A CVA cannot be ruled out at this time unable to perform MRI on him patient on mechanical ventilator and [facility] It will not sales and service change leader at this time patient does move all extremities -Patient has a-fib, ECHO results below - 03/03 resumed home dose of methylphenidate -Pt has h/o dementia (3) Chronic kidney disease (CKD), stage V: Code(s): N18.5 - Chronic kidney disease, stage 5 Status: Chronic Assessment and Plan: Patient with diabetes, hypertension, vascular disease, recurrent nephrolithiasis + UTIs and what essentially appears to be only one kidney providing functionality based on previous imaging. Creatinine has been running in the 3.2 - 3.6mg/dl range in the last 6 months -Some concern for uremic symptoms recently -Nephrology following -WINE CELLAR STOCK CLERK/dialysis in the near future -Dialysis catheter inserted 02/28/24 and patient started on hemodialysis - Nep -Follow labs and UOP (4) DM type 2 (diabetes mellitus, type 2): Onset Date: ~2018 Qualifiers: Diabetes mellitus complication status: without complication Diabetes mellitus termite technician insulin use: without fci use Qualified Code(s): E11.9 - Type 2 diabetes mellitus without complications Code(s): E11.9 - Type 2 diabetes mellitus without complications Status: Chronic Assessment and Plan: Continue Accu-Cheks sent sliding scale Continue lantus and increase dose to 10 units. Will hold this morning's dose due to patient being NPO (5) A-fib: Qualifiers: Atrial fibrillation type: unspecified Qualified Code(s): I48.91 - Unspecified atrial fibrillation Code(s): I48.91 - Unspecified atrial fibrillation Status: Acute Assessment and Plan: Patient with hx of afib. Was on Eliquis prior to admission, however Eliquis was held for invasive procedure 02/28 Eliquis resumed ECHO Summary ? 1. Technically difficult study. ? 2. Left ventricular chamber dimension is normal. ? 3. Left ventricular systolic function is lower limits of normal, estimated at 50-55%. ? 4. There is mildly increased left ventricular wall thickness. ? 5. Right ventricular systolic function is normal. ? 6. Left atrial chamber dimension is severely enlarged. ? 7. Right atrial chamber dimension is mildly enlarged. ? 8. There is mild aortic valve regurgitation. ? 9. There is mild mitral valve regurgitation. ? 10. There is mild to moderate tricuspid valve regurgitation. ? 11. Pericardial effusion is present. Pericardial effusion is trivial in size anteriorly, and is small in size posteriorly. ? 12. Left pleural effusion present. (6) Acute UTI: Code(s): N39.0 - Urinary tract infection, site not specified Status: Acute Assessment and Plan: Patient has chronic indwelling Braswell and h
--- NOTE | 2024-03-06 09:40 | PCSTNOTE ---
Therapist attempted to awaken patient for BSE 8:15 am but she would not safely arouse for oral feedings. Will await a call for when patient is ready.
--- NOTE | 2024-03-06 09:51 | P.PNNP_ITS ---
Progress Note: A&P Assessment and Plan (1) ESRD (end stage renal disease): Code(s): N18.6 - End stage renal disease Status: Chronic Assessment and Plan: * creatinine has been running in the 3.2 - 3.6mg/dl range in the last 6 months * slow and ongoing progression of kidney disease over the last 2 years with recent deterioration noted in September 2023 * some concerns regarding possible uremic symptoms (poor oral intake, decreased energy level/increased fatigue, confusion,...etc) recently * due to her diabetes, hypertension, vascular disease, recurrent nephrolithiasis + UTIs and what essentially appears to be only one kidney providing functionality based on previous imaging * renal scan in 10/25/14 with poor right kidney function which is 16% of total renal function * s/p tunneled HD catheter placement (on 02/28/24) * HD tomorrow and continue M/W/F schedule for now... (2) Acute respiratory failure: Code(s): J96.00 - Acute respiratory failure, unspecified whether with hypoxia or hypercapnia Status: Acute Assessment and Plan: * felt to be secondary to pulmonary edema/volume overload and encephalopathy * intubated on the evening of 02/26 * self extubated on evening of 03/04 * fluid removal as tolerated with HD/DUF * plan DUF today * monitor respiratory status - remains at risk for re-intubation (3) Altered mental status: Code(s): R41.82 - Altered mental status, unspecified Status: Acute Assessment and Plan: * as noted on admission and at nursing facility * presumably multifactorial: infections, medicines, hypercalcemia, and uremia. * follow mentation (4) Acute UTI: Code(s): N39.0 - Urinary tract infection, site not specified Status: Acute Assessment and Plan: * admission urinalysis highly suggestive * complicated by indwelling catheter * urine and blood cultures negative on 02/24 * completed course of antibiotics (5) Hypercalcemia: Code(s): E83.52 - Hypercalcemia Status: Chronic Assessment and Plan: * somewhat chronic * evaluation to date: * ionized calcium okay * PTH mildly elevated * Vitamin D (25-OH) okay * SPEP/UPEP and immunofixation pending * on calcitonin * may need bone scan * adjusting calcium bath with dialysis (6) Benign essential hypertension: Code(s): I10 - Essential (primary) hypertension Status: Chronic Assessment and Plan: * reasonable control * follow trend of hemodynamics (7) Anemia: Code(s): D64.9 - Anemia, unspecified Status: Chronic Assessment and Plan: * due to underlying CKD (with progression of ESRD) and acute illness * Epogen with HD * follow trend of H/H (8) DM type 2 (diabetes mellitus, type 2): Onset Date: ~2018 Qualifiers: Diabetes mellitus complication status: without complication Diabetes mellitus buttermaker insulin use: without fpc use Qualified Code(s): E11.9 - Type 2 diabetes mellitus without complications Code(s): E11.9 - Type 2 diabetes mellitus without complications Status: Chronic Assessment and Plan: * follow accu-cheks * glycemic control per hospitalists Will continue to follow. Subjective Date/time seen: 03/06/24 09:51 Interval history: Follow-up for chronic kidney disease (wih progression to ESRD on hemodialysis) Tolerated dialysis treatment yesterday although fluid removal was a bit challenging due to fluctuating hypotension desp
--- NOTE | 2024-03-06 09:51 | PM.PNNEP ---
Progress Note: A&P Assessment and Plan (1) ESRD (end stage renal disease): Code(s): N18.6 - End stage renal disease Status: Chronic Assessment and Plan: creatinine has been running in the 3.2 - 3.6mg/dl range in the last 6 months slow and ongoing progression of kidney disease over the last 2 years with recent deterioration noted in September 2023 some concerns regarding possible uremic symptoms (poor oral intake, decreased energy level/increased fatigue, confusion,...etc) recently due to her diabetes, hypertension, vascular disease, recurrent nephrolithiasis + UTIs and what essentially appears to be only one kidney providing functionality based on previous imaging renal scan in 10/25/14 with poor right kidney function which is 16% of total renal function s/p tunneled HD catheter placement (on 02/28/24) HD tomorrow and continue M/W/F schedule for now... (2) Acute respiratory failure: Code(s): J96.00 - Acute respiratory failure, unspecified whether with hypoxia or hypercapnia Status: Acute Assessment and Plan: felt to be secondary to pulmonary edema/volume overload and encephalopathy intubated on the evening of 02/26 self extubated on evening of 03/04 fluid removal as tolerated with HD/DUF plan DUF today monitor respiratory status - remains at risk for re-intubation (3) Altered mental status: Code(s): R41.82 - Altered mental status, unspecified Status: Acute Assessment and Plan: as noted on admission and at nursing facility presumably multifactorial: infections, medicines, hypercalcemia, and uremia. follow mentation (4) Acute UTI: Code(s): N39.0 - Urinary tract infection, site not specified Status: Acute Assessment and Plan: admission urinalysis highly suggestive complicated by indwelling catheter urine and blood cultures negative on 02/24 completed course of antibiotics (5) Hypercalcemia: Code(s): E83.52 - Hypercalcemia Status: Chronic Assessment and Plan: somewhat chronic evaluation to date: ionized calcium okay PTH mildly elevated Vitamin D (25-OH) okay SPEP/UPEP and immunofixation pending on calcitonin may need bone scan adjusting calcium bath with dialysis (6) Benign essential hypertension: Code(s): I10 - Essential (primary) hypertension Status: Chronic Assessment and Plan: reasonable control follow trend of hemodynamics (7) Anemia: Code(s): D64.9 - Anemia, unspecified Status: Chronic Assessment and Plan: due to underlying CKD (with progression of ESRD) and acute illness Epogen with HD follow trend of H/H (8) DM type 2 (diabetes mellitus, type 2): Onset Date: ~2018 Qualifiers: Diabetes mellitus complication status: without complication Diabetes mellitus tank terminal gauger insulin use: without tank terminal gauger use Qualified Code(s): E11.9 - Type 2 diabetes mellitus without complications Code(s): E11.9 - Type 2 diabetes mellitus without complications Status: Chronic Assessment and Plan: follow accu-cheks glycemic control per hospitalists Will continue to follow. Subjective Date/time seen: 03/06/24 09:51 Interval history: Follow-up for chronic kidney disease (wih progression to ESRD on hemodialysis) Tolerated dialysis treatment yesterday although fluid removal was a bit challenging due to fluctuating hypotension despite use of IV albumin; BP appears to be doing better today; respiratory status seems relatively stable on high flow oxygen therapy; mentation continues to fluctuate per nursing staff. Exam Narrative: General: elderly female in NAD Heart: normal S1 and S2; no rub Lungs: coarse breath sounds; decreased at bases Abdomen: soft, nontender, nondistended, positive bowel sounds Extremities: 1+ edema bilaterally Skin: Warm and intact Objective Data Vital Signs Vital Signs:
--- NOTE | 2024-03-06 11:35 | PCNFU ---
Nutrition Follow-Up Complete: Inadequate oral intake related to loss of appetite as evidenced by refusal of meals, low intakes Goal: Adequate PO intake at least 50% meals and supplements We will continue current goal. Pt current nutrition is NPO. Last recorded weight is 102.6 kg. Bowel Motility: No BM reported. Labs Reviewed:Cr 2.3,GFR 21, BUN 23 Meds Noted:Crestor, Vit D, Miralax, Colace, Zofran Skin: WNL Additional Notes: Patient remains NPO after self extubation on 03/04. Plans for bedside swallow. Dialysis today. Monitoring intakes, weights, labs, supplement tolerance, plan of care Follow up in 3 days.
--- NOTE | 2024-03-06 11:57 | PCSTNOTE ---
Please refer to the Bedside Swallow Evaluation in the EMR. Please note, silent aspiration cannot be ruled out at bedside.
[2024-03-06 12:12] LABS: Albumin 3.1 g/dL (3.8-4.8); Alpha 1 Globulin 0.4 g/dL (0.2-0.3); Alpha 2 Globulin 0.7 g/dL (0.5-0.9); Beta 1 Globulin 0.3 g/dL (0.4-0.6); Gamma Globulin 0.8 g/dL (0.8-1.7)
[2024-03-06] MEDS: ALPRAZolam (*CRX) 0.25 MG TABLET PO ×2 (12:14→17:44)
[2024-03-06 12:51] LABS: Glucose Point of Care 81 mg/dl (65-105)
[2024-03-06] MEDS: ALBUMIN HUMAN 25% 25 GM/100 ML 100 ML IVPB (14:22)
--- NOTE | 2024-03-06 15:03 | PCPTNOTE ---
attempted PT eval, currently getting hemodialysis 1429, will follow
[2024-03-06] MEDS: dexmedeTOMIDine 400 MCG/100 ML 400 MCG/100 ML BAG 11.06 MCG IV CONT (16:05)
[2024-03-06 16:23] LABS: Creatinine, Random Urine 47 mg/dL (20-275); Total Protein/Creatinine Ratio 9021 mg/g creat (24-184)
[2024-03-06] MEDS: QUEtiapine FUMARATE 25 MG TABLET 50 MG PO (17:44)
[2024-03-06] MEDS: ARIPiprazole 2 MG TABLET PO (17:44)
[2024-03-06 17:54] LABS: Glucose Point of Care 75 mg/dl (65-105)
[2024-03-06 20:48] LABS: Glucose Point of Care 97 mg/dl (65-105)
[2024-03-06] MEDS: MINERAL OIL/WHITE PETROLATUM OINTMENT 1 APPLIC EACH EYE (21:21)
[2024-03-07] VITALS (33 sets, daily range): BP systolic 95–161; BP diastolic 51–112; PULSE 92–130; RESP 16–28; TEMP 37–38.3; O2SAT 93–100
[2024-03-07 00:07] LABS: Glucose Point of Care 95 mg/dl (65-105)
[2024-03-07] MEDS: SALINE LOCK FLUSH 10 ML IV PUSH ×3 (04:53→20:57)
[2024-03-07 05:06] LABS: Basophils Absolute Auto 0.1 K/mm3 (0.0-0.1); Basophils Percent Auto 0.7 % (0.2-1.2); Eosinophils Absolute Auto 0.2 K/mm3 (0-0.3); Eosinophils Percent Auto 1.8 % (0-4.4); Hematocrit 29.6 % (37.0-47.0); Hemoglobin 8.7 g/dL (12.0-15.0); Immature Granulocyte Absolute 0.04 K/mm3 (0.00-0.031); Immature Granulocyte Percent A 0.5 % (0-0.5); Lymphocytes Absolute Auto 1.24 K/mm3 (0.9-3.2); Lymphocytes Percent Auto 15.3 % (18.3-44.2); Mean Corpuscular HGB Conc 29.4 g/dl (32-36); Mean Corpuscular Hemoglobin 28.4 pg (26-34); Mean Corpuscular Volume 96.7 fl (80-100); Mean Platelet Volume 10.5 fl (7.4-10.4); Monocytes Absolute Auto 0.7 K/mm3 (0.1-0.6); Neutrophils Absolute Auto 5.9 K/mm3 (1.3-6.7); Neutrophils Percent Auto 72.7 % (45.5-73.1); Platelet Count Result 214 k/mm3 (150-375); Red Blood Count 3.06 M/mm3 (4.2-5.4); Red Cell Distribution Width 14.6 % (11.5-14.5); White Blood Count 8.1 K/mm3 (4.5-10.0)
[2024-03-07 05:29] LABS: Alanine Aminotransferase 12 U/L (6-35); Alkaline Phosphatase 61 U/L (38-126); Anion Gap 17 mmol/L (4-12); Aspartate Amino Transferase 22 U/L (14-36); Bilirubin,Total 1.5 mg/dL (0.2-1.3); Blood Urea Nitrogen 38 mg/dL (7-17); Calcium 11.2 mg/dL (8.4-10.2); Carbon Dioxide 18 mmol/L (22-30); Chloride 106 mmol/L (98-107); Estimated CRCL calculation 16 ml/min; Estimated Glomerular Filt Rate 13; Glucose 93 mg/dL (65-110); Magnesium 2.5 mg/dL (1.6-2.3); Phosphorus 4.8 mg/dL (2.5-4.5); Sodium 141 mmol/L (137-145)
[2024-03-07 05:42] LABS: Anisocytosis 1+; Platelet Estimate Adequate (Adequate)
[2024-03-07 05:43] LABS: Ovalocytes 1+; Schistocytes None Seen
[2024-03-07] MEDS: METOPROLOL TARTRATE INJ 5 MG/5 ML VIAL IV PUSH (09:21)
--- NOTE | 2024-03-07 10:05 | PCPTNOTE ---
Pt. continues to have Bedrest orders. Will follow as pt is able to safely participate in OOB activity.
--- NOTE | 2024-03-07 10:49 | PCFNICU ---
ICU Rounding Note: Pt current nutrition is NPO. Nutrition recommendation: NGT placement with tube feedings of Nepro at 40 ml/hr goal rate. Last recorded weight is 99.6 kg. Bowel Motility: No BM reported Labs Reviewed: GFR 13, BUN 38, Cr 3.4,Hgb 8.7,Hct 29.6 Meds Noted: Colace, Miralax, Vit D, Crestor, NovoLog, Lantus Skin: WNL Additional Notes:Patient remains NPO at this time. Dialysis planned again today. Unable to pass swallow study. Nutrition recommendations: Nepro at 20 ml/hr advance by 10 ml q 4 hours to goal rate of 40 ml/hr. Flush 100 ml flush q 4 hours. Will continue to monitor for plan of care. Following daily in ICU rounds. Monitoring intakes, weights, labs, supplement tolerance, plan of care every Tuesday and Tuesday.
--- NOTE | 2024-03-07 10:56 | PCSTNOTE ---
Please refer to the Bedside Swallow Evaluation in the EMR. Please note, silent aspiration cannot be ruled out at bedside.
[2024-03-07 12:28] LABS: Glucose Point of Care 107 mg/dl (65-105)
--- NOTE | 2024-03-07 12:48 | WPDINTPN ---
Progress Note: A&P Assessment and Plan (1) Acute respiratory failure: Code(s): J96.00 - Acute respiratory failure, unspecified whether with hypoxia or hypercapnia Status: Acute Assessment and Plan: Multifactorial Acute Respiratory failure secondary to pulmonary edema, encephalopathy 02/26: Patient intubated 03/04: Self extubated - currently on high flow therapy, will try to wean to nasal cannula and evaluate Completed course of meropenem Currently off Precedex infusion -03/07: patient had a swallow evaluation this morning had was choking and coughing. Patient also did bradycardia, speech evaluation was discontinued. -she will requiring NG tube placement for medications and diet (2) Altered mental status: Code(s): R41.82 - Altered mental status, unspecified Status: Acute Assessment and Plan: Likely toxic metabolic encephalopathy. -Ammonia and TSH normal -Head CT was negative -Possible UTI with suggestive UA. However 02/24 urine culture negative. Patient has chronic indwelling [place] and has history of UTIs. -S/p full course of meropenem. Vancomycin DC'd on 02/28 -Her WBC and procalcitonin level was normal -02/24 Blood culture with no growth to date -Prior to intubation patient was moving all 4 extremities. A CVA cannot be ruled out at this time unable to perform MRI on him patient on mechanical ventilator and [facility].? It will not electronic data interchange specialist at this time patient does move all extremities -Patient has a-fib, ECHO results below - 03/03 resumed home dose of methylphenidate -Pt has h/o dementia Continue Noemy Alejandre (3) Chronic kidney disease (CKD), stage V: Code(s): N18.5 - Chronic kidney disease, stage 5 Status: Chronic Assessment and Plan: Patient with diabetes, hypertension, vascular disease, recurrent nephrolithiasis + UTIs and what essentially appears to be only one kidney providing functionality based on previous imaging. Creatinine has been running in the 3.2 - 3.6mg/dl range in the last 6 months -Some concern for uremic symptoms recently -Nephrology following -TRANSFER MAN/dialysis in the near future -Dialysis catheter inserted 02/28/24 and patient started on hemodialysis -dialysis per Nephrology (4) DM type 2 (diabetes mellitus, type 2): Onset Date: ~2018 Qualifiers: Diabetes mellitus correction insulin use: without correction use Diabetes mellitus complication status: without complication Qualified Code(s): E11.9 - Type 2 diabetes mellitus without complications Code(s): E11.9 - Type 2 diabetes mellitus without complications Status: Chronic Assessment and Plan: Continue Accu-Cheks sent sliding scale Continue lantus (5) A-fib: Qualifiers: Atrial fibrillation type: unspecified Qualified Code(s): I48.91 - Unspecified atrial fibrillation Code(s): I48.91 - Unspecified atrial fibrillation Status: Acute Assessment and Plan: Patient with hx of afib. Was on Eliquis prior to admission, however Eliquis was held for invasive procedure 02/28 Eliquis resumed ECHO Summary ? 1. Technically difficult study. ? 2. Left ventricular chamber dimension is normal. ? 3. Left ventricular systolic function is lower limits of normal, estimated at 50-55%. ? 4. There is mildly increased left ventricular wall thickness. ? 5. Right ventricular systolic function is normal. ? 6. Left atrial chamber dimension is severely enlarged. ? 7. Right atrial chamber dimension is mildly enlarged. ? 8. There is mild aortic valve regurgitation. ? 9. There is mild mitral valve regurgitation. ? 10. There is mild to moderate tricuspid valve regurgitation. ? 11. Pericardial effusion is present. Pericardial effusion is trivial in size anteriorly, and is small in size posteriorly. ? 12. Left pleural effusion present. (6) Acute UTI: Code(s): N39.0 - Urinary tract infection, site not specified Status: Acute Assessment and
--- NOTE | 2024-03-07 12:54 | PCOTNOTE ---
Pt. continues to have Bedrest orders, nursing reporting agitation and confusion from pt. will see for therapy services when pt. appropriate to participate and activity orders have been changed to allow for activity.
--- NOTE | 2024-03-07 13:46 | PC.NURSE ---
Addendum entered by Cyrus Ramos RN 03/07/24 14:03: Attempted swallow evaulation this AM due to recent extubation. Patient failed with obvious signs of choking and coughing upon administration of thin liquids from speech pathologist. Her heart hate at this time was witnessed by multiple ICU nursing staff members dropping to 17 beats/min and slowly recovering to baseline 110s over the next 2 minutes. Upon this finding, no further food, liquids, or PO medications were determined safe to administer to patient and foreclosure specialist recommended NG tube for enteral nutrition, hydration, and medication administration. Attempted to insert NG tube and patient entirely refused this new tube and threatened to pull her hemodialysis catheter. She further stated that she does not want to however does not want to comply with any treatment plan recommendations. Updated daughter Shima of these occurrences and she is on her way to address potential code status change and future treatment plans. Original Note: Attempted swallow evaulation this AM due to recent extubation. Patient failed with obvious signs of choking and coughing upon administration of thin liquids from speech pathologist. Her heart hate at this time was witnessed by multiple ICU nursing staff members dropping to 17 beats/min and slowly recovering to baseline 110s over the next 2 minutes. Upon this finding, no further food, liquids, or PO medications were determined safe to administer to patient and foreclosure specialist recommended NG tube for enteral nutrition, hydration, and medication administration. Attempted to insert NG tube and patient entirely refused this new tube and threatened to pull her hemodialysis catheter. She further stated that she does not want to however does not want to comply with any treatment plan recommendations. Updated evangelist Ronquillo of these occurrences and inquired when she would be visiting today to address code status and future treatment plans.
--- NOTE | 2024-03-07 14:54 | P.PNCROSS_ITS ---
Event Note Event Note Event Note: Discussed with Shima, patient's daughter. I explained to her that patient fail ed her swallow test this morning, she was coughing, choking and dropped her heart rate in the 20s. Currently the patient is NPO, and refusing NG tube for tube feedings/nutrition and medications. The daughter requests that we allow her to try and eat again, and is not understanding that patient probably is aspirating at baseline and aspirated significantly when this speech therapist was doing a bedside swallow test. The daughter continues to state that it is probably because of the ICU environment that she failed the swallow test. I explained to the daughter given the dementia and the current critical illness for which she she currently is in the hospital, could be the reason that the dementia may be worsening over time given her age she is likely aspirating and is at risk for developing pneumonia and infections. The daughter wondered talk to her mother and asked me to come back again in the room, patient continues to refuse NG tube placement. She wants the dialysis catheter to be removed, or use the dialysis catheter of to feed her patient is currently confused and the daughter seems to be aware of it. We will let the dialysis take place at this time, and hopefully the patient may allow us to place a NG tube for her medications and nutrition. The daughter also wanted her to be transferred out of the ICU, I discussed with the daughter that I was keeping the patient in the ICU for closer nursing care but if she wishes for her to be transferred as patient does not have any critical care needs at this time. I will transfer the patient of the ICU, hospitalist to decide what unit they want her to go to. Lala Spencer, ICU patient care nursing assistant was present for all my conversations with the daughter
--- NOTE | 2024-03-07 15:04 | PM.EVENT ---
Event Note Event Note Event Note: Dr. Reyna radiology called and relayed the results of the venous Dopplers: Age-indeterminate occlusive noncompressible deep venous thrombosis in the peroneal and posterior tibial veins at the bilateral calves. No evident [id number] deep venous thrombosis in either lower limb Patient has been on apixaban 2.5 mg p.o. q.12 hours last dose was on 03/06/2024 at 5:45 p.m. -patient is refusing NGT placement as she failed her swallow evaluation -will start patient on heparin infusion
--- NOTE | 2024-03-07 15:43 | PC.NURSE ---
Patient agreeable to hemodialysis at this time, will attempt to insert NG tube following treatment, if successful will begin heparin drip as ordered.
--- NOTE | 2024-03-07 16:30 | P.PNNP_ITS ---
Progress Note: A&P Assessment and Plan (1) ESRD (end stage renal disease): Code(s): N18.6 - End stage renal disease Status: Chronic Assessment and Plan: * creatinine has been running in the 3.2 - 3.6mg/dl range in the last 6 months * slow and ongoing progression of kidney disease over the last 2 years with recent deterioration noted in September 2023 * some concerns regarding possible uremic symptoms (poor oral intake, decreased energy level/increased fatigue, confusion,...etc) recently * due to her diabetes, hypertension, vascular disease, recurrent nephrolithiasis + UTIs and what essentially appears to be only one kidney providing functionality based on previous imaging * renal scan in 10/25/14 with poor right kidney function which is 16% of total renal function * s/p tunneled HD catheter placement (on 02/28/24) * HD today and continue M/W/F schedule for now... (2) Acute respiratory failure: Code(s): J96.00 - Acute respiratory failure, unspecified whether with hypoxia or hypercapnia Status: Acute Assessment and Plan: * felt to be secondary to pulmonary edema/volume overload and encephalopathy * intubated on the evening of 02/26 * self extubated on evening of 03/04 * fluid removal as tolerated with HD/DUF * monitor respiratory status (3) Altered mental status: Code(s): R41.82 - Altered mental status, unspecified Status: Acute Assessment and Plan: * clinically better * as noted on admission and at nursing facility * presumably multifactorial: infections, medicines, hypercalcemia, and uremia. * follow mentation (4) Acute UTI: Code(s): N39.0 - Urinary tract infection, site not specified Status: Acute Assessment and Plan: * admission urinalysis highly suggestive * complicated by indwelling catheter * urine and blood cultures negative on 02/24 * completed course of antibiotics (5) Hypercalcemia: Code(s): E83.52 - Hypercalcemia Status: Chronic Assessment and Plan: * somewhat chronic * evaluation to date: * ionized calcium okay * PTH mildly elevated * Vitamin D (25-OH) okay * SPEP/UPEP and immunofixation pending * on calcitonin * may need bone scan * adjusting calcium bath with dialysis (6) Benign essential hypertension: Code(s): I10 - Essential (primary) hypertension Status: Chronic Assessment and Plan: * reasonable control * follow trend of hemodynamics (7) Anemia: Code(s): D64.9 - Anemia, unspecified Status: Chronic Assessment and Plan: * due to underlying CKD (with progression of ESRD) and acute illness * Epogen with HD * follow trend of H/H (8) DM type 2 (diabetes mellitus, type 2): Onset Date: ~2018 Qualifiers: Diabetes mellitus complication status: without complication Diabetes mellitus correction insulin use: without superintendent marine oil terminal use Qualified Code(s): E11.9 - Type 2 diabetes mellitus without complications Code(s): E11.9 - Type 2 diabetes mellitus without complications Status: Chronic Assessment and Plan: * follow accu-cheks * glycemic control per hospitalists Will continue to follow. Subjective Date/time seen: 03/07/24 16:30 Interval history: Follow-up for chronic kidney disease (wih progression to ESRD on hemodialysis) Tolerating dialysis treatment at the time of my visit (seen on HD at 4:20PM); unfortunately, blood flows with catheter are running 200 - 250cc/min so will tr
--- NOTE | 2024-03-07 16:30 | PM.PNNEP ---
Progress Note: A&P Assessment and Plan (1) ESRD (end stage renal disease): Code(s): N18.6 - End stage renal disease Status: Chronic Assessment and Plan: creatinine has been running in the 3.2 - 3.6mg/dl range in the last 6 months slow and ongoing progression of kidney disease over the last 2 years with recent deterioration noted in September 2023 some concerns regarding possible uremic symptoms (poor oral intake, decreased energy level/increased fatigue, confusion,...etc) recently due to her diabetes, hypertension, vascular disease, recurrent nephrolithiasis + UTIs and what essentially appears to be only one kidney providing functionality based on previous imaging renal scan in 10/25/14 with poor right kidney function which is 16% of total renal function s/p tunneled HD catheter placement (on 02/28/24) HD today and continue M/W/F schedule for now... (2) Acute respiratory failure: Code(s): J96.00 - Acute respiratory failure, unspecified whether with hypoxia or hypercapnia Status: Acute Assessment and Plan: felt to be secondary to pulmonary edema/volume overload and encephalopathy intubated on the evening of 02/26 self extubated on evening of 03/04 fluid removal as tolerated with HD/DUF monitor respiratory status (3) Altered mental status: Code(s): R41.82 - Altered mental status, unspecified Status: Acute Assessment and Plan: clinically better as noted on admission and at nursing facility presumably multifactorial: infections, medicines, hypercalcemia, and uremia. follow mentation (4) Acute UTI: Code(s): N39.0 - Urinary tract infection, site not specified Status: Acute Assessment and Plan: admission urinalysis highly suggestive complicated by indwelling catheter urine and blood cultures negative on 02/24 completed course of antibiotics (5) Hypercalcemia: Code(s): E83.52 - Hypercalcemia Status: Chronic Assessment and Plan: somewhat chronic evaluation to date: ionized calcium okay PTH mildly elevated Vitamin D (25-OH) okay SPEP/UPEP and immunofixation pending on calcitonin may need bone scan adjusting calcium bath with dialysis (6) Benign essential hypertension: Code(s): I10 - Essential (primary) hypertension Status: Chronic Assessment and Plan: reasonable control follow trend of hemodynamics (7) Anemia: Code(s): D64.9 - Anemia, unspecified Status: Chronic Assessment and Plan: due to underlying CKD (with progression of ESRD) and acute illness Epogen with HD follow trend of H/H (8) DM type 2 (diabetes mellitus, type 2): Onset Date: ~2018 Qualifiers: Diabetes mellitus complication status: without complication Diabetes mellitus termite inspector insulin use: without detention use Qualified Code(s): E11.9 - Type 2 diabetes mellitus without complications Code(s): E11.9 - Type 2 diabetes mellitus without complications Status: Chronic Assessment and Plan: follow accu-cheks glycemic control per hospitalists Will continue to follow. Subjective Date/time seen: 03/07/24 16:30 Interval history: Follow-up for chronic kidney disease (wih progression to ESRD on hemodialysis) Tolerating dialysis treatment at the time of my visit (seen on HD at 4:20PM); unfortunately, blood flows with catheter are running 200 - 250cc/min so will try cathflo to see if this helps improve blood flow; mentation seems to be doing much better as she is more responsive to questions and talkative in general; weaned to room air and remains hemodynamically stable as well. Exam Narrative: General: elderly female in NAD Heart: normal S1 and S2; no rub Lungs: coarse breath sounds; decreased at bases Abdomen: soft, nontender, nondistended, positive bowel sounds Extremities: trace edema Skin: no rash Objective Data Dara
[2024-03-07] MEDS: HEPARIN SODIUM 1,000 UNITS/ML VIAL 2000 UNITS IV PUSH (17:16)
[2024-03-07] MEDS: EPOETIN ALFA-EPBX 10,000 UNITS/ML VIAL 10000 UNITS IV PUSH (19:04)
[2024-03-07] MEDS: ALTEPLASE 2 MG VIAL (CATHFLO) INTRACATH (19:10)
[2024-03-07 20:50] LABS: INR 1.2; Prothrombin Time 16.2 Seconds (11.1-14.7)
[2024-03-07 20:51] LABS: Partial Thromboplastin Time 29.4 Seconds (22.3-36.8)
[2024-03-07] MEDS: QUEtiapine FUMARATE 25 MG TABLET 50 MG PO (20:53)
[2024-03-07] MEDS: ALPRAZolam (*CRX) 0.25 MG TABLET PO (20:53)
[2024-03-07] MEDS: ARIPiprazole 2 MG TABLET PO (20:53)
[2024-03-07] MEDS: METOPROLOL TARTRATE 25 MG TABLET PO (20:53)
[2024-03-07] MEDS: HEPARIN SOD/D5W 100 UNITS/ML 25,000 UNITS/250 ML BAG 14 UNITS IV CONT (20:55)
[2024-03-08] VITALS (18 sets, daily range): BP systolic 112–158; BP diastolic 76–117; PULSE 71–125; RESP 18–22; TEMP 37.3–37.7; O2SAT 89–100
[2024-03-08 00:31] LABS: Glucose Point of Care 123 mg/dl (65-105)
[2024-03-08] MEDS: METOPROLOL TARTRATE INJ 5 MG/5 ML VIAL IV PUSH ×2 (00:48→05:50)
[2024-03-08] MEDS: SALINE LOCK FLUSH 10 ML IV PUSH ×3 (04:47→20:49)
[2024-03-08 04:51] LABS: Basophils Absolute Auto 0.1 K/mm3 (0.0-0.1); Basophils Percent Auto 0.7 % (0.2-1.2); Eosinophils Absolute Auto 0.1 K/mm3 (0-0.3); Eosinophils Percent Auto 0.7 % (0-4.4); Hematocrit 30.9 % (37.0-47.0); Hemoglobin 9.2 g/dL (12.0-15.0); Immature Granulocyte Absolute 0.04 K/mm3 (0.00-0.031); Immature Granulocyte Percent A 0.4 % (0-0.5); Lymphocytes Absolute Auto 1.61 K/mm3 (0.9-3.2); Lymphocytes Percent Auto 17.5 % (18.3-44.2); Mean Corpuscular HGB Conc 29.8 g/dl (32-36); Mean Corpuscular Hemoglobin 28.7 pg (26-34); Mean Corpuscular Volume 96.3 fl (80-100); Mean Platelet Volume 10.9 fl (7.4-10.4); Monocytes Absolute Auto 0.8 K/mm3 (0.1-0.6); Monocytes Percent Auto 8.8 % (2.6-8.5); Neutrophils Absolute Auto 6.6 K/mm3 (1.3-6.7); Neutrophils Percent Auto 71.9 % (45.5-73.1); Platelet Count Result 161 k/mm3 (150-375); Red Blood Count 3.21 M/mm3 (4.2-5.4); Red Cell Distribution Width 14.5 % (11.5-14.5); White Blood Count 9.2 K/mm3 (4.5-10.0)
[2024-03-08 05:02] LABS: Alanine Aminotransferase 14 U/L (6-35); Albumin Level 4.1 g/dL (3.5-5.1); Alkaline Phosphatase 65 U/L (38-126); Anion Gap 16 mmol/L (4-12); Aspartate Amino Transferase 23 U/L (14-36); Bilirubin,Total 1.6 mg/dL (0.2-1.3); Blood Urea Nitrogen 29 mg/dL (7-17); Calcium 10.5 mg/dL (8.4-10.2); Carbon Dioxide 21 mmol/L (22-30); Chloride 102 mmol/L (98-107); Estimated CRCL calculation 18 ml/min; Estimated Glomerular Filt Rate 15; Glucose 132 mg/dL (65-110); Magnesium 2.3 mg/dL (1.6-2.3); Phosphorus 4.9 mg/dL (2.5-4.5); Potassium 3.7 mmol/L (3.4-5.0); Sodium 139 mmol/L (137-145)
[2024-03-08 05:05] LABS: Partial Thromboplastin Time 154.4 Seconds (22.3-36.8)
[2024-03-08 05:26] LABS: Anisocytosis 1+; Platelet Estimate Adequate (Adequate); Schistocytes None Seen
[2024-03-08] MEDS: LANSOPRAZOLE ODT 30 MG TAB.RAP.DR FEED TUBE (05:50)
--- NOTE | 2024-03-08 09:29 | PCOTNOTE ---
Attempted to see pt. for occupational therapy evaluation. Pt. currently receiving swallow study at this time. Per nursing remains on bed rest, and requires restraints due to risk for pulling on lines with confusion and disorientation. Will follow up with hospitalist regarding appropriateness of therapy evaluation at this time.
[2024-03-08] MEDS: METOPROLOL TARTRATE 25 MG TABLET PO ×2 (09:59→20:43)
[2024-03-08] MEDS: ROSUVASTATIN 10 MG TABLET PO (09:59)
[2024-03-08] MEDS: methylPHENIDATE HCL (*CRX) 10 MG TABLET PO ×2 (09:59→12:38)
[2024-03-08] MEDS: CHOLECALCIFEROL 1,000 UNITS TABLET 2000 UNITS PO (09:59)
[2024-03-08] MEDS: ALPRAZolam (*CRX) 0.25 MG TABLET PO (09:59)
[2024-03-08] MEDS: CYANOCOBALAMIN 1,000 MCG TABLET 1000 MCG PO (09:59)
--- NOTE | 2024-03-08 12:16 | PM.PNNEP ---
Progress Note: A&P Assessment and Plan (1) ESRD (end stage renal disease): Code(s): N18.6 - End stage renal disease Status: Chronic Assessment and Plan: creatinine has been running in the 3.2 - 3.6mg/dl range in the last 6 months slow and ongoing progression of kidney disease over the last 2 years with recent deterioration noted in September 2023 some concerns regarding possible uremic symptoms (poor oral intake, decreased energy level/increased fatigue, confusion,...etc) recently due to her diabetes, hypertension, vascular disease, recurrent nephrolithiasis + UTIs and what essentially appears to be only one kidney providing functionality based on previous imaging renal scan in 10/25/14 with poor right kidney function which is 16% of total renal function s/p tunneled HD catheter placement (on 02/28/24) HD tomorrow and continue M/W/F schedule for now... will need outpatient dialysis on discharge (2) Acute respiratory failure: Code(s): J96.00 - Acute respiratory failure, unspecified whether with hypoxia or hypercapnia Status: Acute Assessment and Plan: felt to be secondary to pulmonary edema/volume overload and encephalopathy intubated on the evening of 02/26 self extubated on evening of 03/04 fluid removal as tolerated with HD/DUF monitor respiratory status (3) Altered mental status: Code(s): R41.82 - Altered mental status, unspecified Status: Acute Assessment and Plan: clinically better as noted on admission and at nursing facility presumably multifactorial: infections, medicines, hypercalcemia, and uremia. follow mentation (4) Acute UTI: Code(s): N39.0 - Urinary tract infection, site not specified Status: Acute Assessment and Plan: admission urinalysis highly suggestive complicated by indwelling catheter urine and blood cultures negative on 02/24 completed course of antibiotics (5) Hypercalcemia: Code(s): E83.52 - Hypercalcemia Status: Chronic Assessment and Plan: somewhat chronic evaluation to date: ionized calcium okay PTH mildly elevated Vitamin D (25-OH) okay SPEP/UPEP and immunofixation pending on calcitonin may need bone scan adjusting calcium bath with dialysis (6) Benign essential hypertension: Code(s): I10 - Essential (primary) hypertension Status: Chronic Assessment and Plan: reasonable control follow trend of hemodynamics (7) Anemia: Code(s): D64.9 - Anemia, unspecified Status: Chronic Assessment and Plan: due to underlying CKD (with progression of ESRD) and acute illness Epogen with HD follow trend of H/H (8) DVT, bilateral lower limbs: Code(s): I82.403 - Acute embolism and thrombosis of unspecified deep veins of lower extremity, bilateral Status: Acute Assessment and Plan: as noted by LE dopplers on heparin gtt consider switching back to eliquis (9) DM type 2 (diabetes mellitus, type 2): Onset Date: ~2018 Qualifiers: Diabetes mellitus complication status: without complication Diabetes mellitus custodial insulin use: without terminal gauger use Qualified Code(s): E11.9 - Type 2 diabetes mellitus without complications Code(s): E11.9 - Type 2 diabetes mellitus without complications Status: Chronic Assessment and Plan: follow accu-cheks glycemic control per hospitalists Will continue to follow. Subjective Date/time seen: 03/08/24 12:16 Interval history: Follow-up for chronic kidney disease (wih progression to ESRD on hemodialysis) Tolerated dialysis treatment yesterday although blood flows with dialysis treatment were suboptimal; mentation seems to be doing better in general; started on heparin gtt due findings of DVT; failed bedside swallow evaluation yesterday; no apparent distress noted at the time of my visit. Exam Narrative: General: elderly
--- NOTE | 2024-03-08 12:16 | P.PNNP_ITS ---
Progress Note: A&P Assessment and Plan (1) ESRD (end stage renal disease): Code(s): N18.6 - End stage renal disease Status: Chronic Assessment and Plan: * creatinine has been running in the 3.2 - 3.6mg/dl range in the last 6 months * slow and ongoing progression of kidney disease over the last 2 years with recent deterioration noted in September 2023 * some concerns regarding possible uremic symptoms (poor oral intake, decreased energy level/increased fatigue, confusion,...etc) recently * due to her diabetes, hypertension, vascular disease, recurrent nephrolithiasis + UTIs and what essentially appears to be only one kidney providing functionality based on previous imaging * renal scan in 10/25/14 with poor right kidney function which is 16% of total renal function * s/p tunneled HD catheter placement (on 02/28/24) * HD tomorrow and continue M/W/F schedule for now... * will need outpatient dialysis on discharge (2) Acute respiratory failure: Code(s): J96.00 - Acute respiratory failure, unspecified whether with hypoxia or hypercapnia Status: Acute Assessment and Plan: * felt to be secondary to pulmonary edema/volume overload and encephalopathy * intubated on the evening of 02/26 * self extubated on evening of 03/04 * fluid removal as tolerated with HD/DUF * monitor respiratory status (3) Altered mental status: Code(s): R41.82 - Altered mental status, unspecified Status: Acute Assessment and Plan: * clinically better * as noted on admission and at nursing facility * presumably multifactorial: infections, medicines, hypercalcemia, and uremia. * follow mentation (4) Acute UTI: Code(s): N39.0 - Urinary tract infection, site not specified Status: Acute Assessment and Plan: * admission urinalysis highly suggestive * complicated by indwelling catheter * urine and blood cultures negative on 02/24 * completed course of antibiotics (5) Hypercalcemia: Code(s): E83.52 - Hypercalcemia Status: Chronic Assessment and Plan: * somewhat chronic * evaluation to date: * ionized calcium okay * PTH mildly elevated * Vitamin D (25-OH) okay * SPEP/UPEP and immunofixation pending * on calcitonin * may need bone scan * adjusting calcium bath with dialysis (6) Benign essential hypertension: Code(s): I10 - Essential (primary) hypertension Status: Chronic Assessment and Plan: * reasonable control * follow trend of hemodynamics (7) Anemia: Code(s): D64.9 - Anemia, unspecified Status: Chronic Assessment and Plan: * due to underlying CKD (with progression of ESRD) and acute illness * Epogen with HD * follow trend of H/H (8) DVT, bilateral lower limbs: Code(s): I82.403 - Acute embolism and thrombosis of unspecified deep veins of lower extremity, bilateral Status: Acute Assessment and Plan: * as noted by LE dopplers * on heparin gtt * consider switching back to eliquis (9) DM type 2 (diabetes mellitus, type 2): Onset Date: ~2018 Qualifiers: Diabetes mellitus complication status: without complication Diabetes mellitus [facility] insulin use: without termite inspector use Qualified Code(s): E11.9 - Type 2 diabetes mellitus without complications Code(s): E11.9 - Type 2 diabetes mellitus without complications Status: Chronic Assessment and Plan: * follow accu-cheks * glycemic control per hospitalists Will co
[2024-03-08 13:45] LABS: Glucose Point of Care 117 mg/dl (65-105)
[2024-03-08 15:01] LABS: Partial Thromboplastin Time 39.9 Seconds (22.3-36.8)
[2024-03-08] MEDS: HEPARIN SODIUM 5,000 UNITS/ML VIAL 6500 UNITS IV PUSH (15:15)
--- NOTE | 2024-03-08 15:25 | PC.NURSE ---
Patient daughter at bedside and inquired about removing restraints while she is here visiting. After an in depth conversation with both patient and daughter, an agreement between daughter and this RN was made that one restraint may be removed so long as she remains at the bedside of the unrestrained wrist with her undivided attention on maintaining safety. This RN is maintaining close observation and frequently checking patient and daughter q15 minutes. instructed daughter to call if she were needing to leave or is having difficulty managing the patient impulsivity.
--- NOTE | 2024-03-08 16:01 | PCPTNOTE ---
Pt dependent at baseline (bib lift/wheelchair). Spoke with hospitalist, LUCA Esparza to discharge therapy orders at this time.
--- NOTE | 2024-03-08 17:54 | PM.IMPN ---
Progress Note: A&P Assessment and Plan (1) Altered mental status: Code(s): R41.82 - Altered mental status, unspecified Status: Acute (2) Acute respiratory failure: Code(s): J96.00 - Acute respiratory failure, unspecified whether with hypoxia or hypercapnia Status: Acute Plan Assuming care to the patient extubated and intense management by the metal machine setter. The patient is currently on room air. Speech therapy recommendations instituted. The patient is about ready to eat dinner. Continue heparin for now. Fully we can remove the NG tube with the patient is willing to eat and does not aspirate. The daughter at bedside reports the patient is just about at her normal. We agreed that the patient could tolerate food and does not deteriorate then we would pull the NG tube out attempt to get the patient discharged back to her usual living. Continue to monitor for of meds of aspiration pneumonia. At this point she looks very stable. Dialysis per Nephrology. Full code. Heparin GTT. Stable. Subjective Date/time seen: 03/08/24 17:54 Interval history: Acute overnight events. Patient had another swallow eval with speech therapy today. Spoke with the daughter about goals of care. See assessment. Patient herself has no complaints. She does not quite participate with the evaluation Review of Systems Review of Systems: All systems reviewed & are unremarkable except as noted in HPI and below (Subjective) Exam Const: General: comfortable and no acute distress Eyes: Pupils: Equal, round and reactive pupils present Neck: Neck: supple Resp: Effort & Inspection: normal respiratory effort Other: Does not take breath. Limited examination Cardio: Rate: tachycardic Rhythm: regular rhythm Heart sounds: no gallops, no murmurs and no rubs GI: GI Palp: Yes Soft to palpation and No Tenderness to palpation present (GI) Extrem: General: no edema Objective Data Vital Signs Vital Signs: Vital Signs - 24 hr 03/07/24 18:00 03/07/24 18:00 03/07/24 18:15 Temperature Pulse Rate 116 H 115 H 130 H Respiratory Rate 20 Blood Pressure 100/65 Pulse Oximetry 100 Oxygen Delivery 03/07/24 20:53 03/07/24 20:00 03/07/24 19:40 Temperature 100.6 F H 99.8 F H Pulse Rate 124 H 112 H 118 H Respiratory Rate 20 21 H Blood Pressure 131/97 H 110/65 Pulse Oximetry 98 100 Oxygen Delivery 03/07/24 18:00 03/07/24 18:15 03/07/24 18:30 Temperature Pulse Rate 118 H 115 H 120 H Respiratory Rate Blood Pressure 100/65 109/81 114/101 H Pulse Oximetry Oxygen Delivery 03/07/24 18:45 03/07/24 19:00 03/07/24 19:15 Temperature Pulse Rate 114 H 115 H 118 H Respiratory Rate Blood Pressure 114/81 95/61 L 107/77 Pulse Oximetry Oxygen Delivery 03/07/24 20:00 03/07/24 20:00 03/07/24 22:00 Temperature Pulse Rate 128 H 98 Respiratory Rate Blood Pressure Pulse Oximetry Oxygen Delivery Room Air 03/08/24 00:00 03/08/24 00:25 03/08/24 00:48 Temperature 99.9 F H Pulse Rate 101 H 105 H Respiratory Rate 20 Blood Pressure 143/76 H Pulse Oximetry 95 Oxygen Delivery Room Air 03/08/24 00:00 03/08/24 04:00 03/08/24 04:00 Temperature 99.1 F Pulse Rate 114 H 102 H Respiratory Rate 18 Blood Pressure 158/117 H Pulse Oximetry 93 Oxygen Delivery Room Air 03/08/24 04:00 03/08/24 05:25 03/08/24 05:50 Temperature Pulse Rate 101 H 97 99 Respiratory Rate Blood Pressure Pulse Oximetry Oxygen Delivery 03/08/24 09:59 03/08/24 08:00 03/08/24 08:00 Temperature Pulse Rate 100 103 H Respiratory Rate Blood Pressure Pulse Oximetry Oxygen Delivery Room Air 03/08/24 08:00 03/08/24 10:00 03/08/24 12:00 Temperature 99.4 F 99.6 F Pulse Rate 93 97 100 Respiratory Rate 20 22 H Blood Pressure 112/80 121/76 Pulse Oximetry 100 89 L Oxygen Delivery 03/08/24 12:21 03/08/24 12:00 03/08/24
[2024-03-08] MEDS: HEPARIN SOD/D5W 100 UNITS/ML 25,000 UNITS/250 ML BAG 15 UNITS IV CONT (18:03)
[2024-03-08 18:12] LABS: Glucose Point of Care 130 mg/dl (65-105)
[2024-03-08] MEDS: ARIPiprazole 2 MG TABLET PO (20:43)
[2024-03-08] MEDS: QUEtiapine FUMARATE 25 MG TABLET 50 MG PO (20:44)
[2024-03-08] MEDS: INSULIN GLARGINE (*BKC) 100 UNITS/ML 10 UNITS SUB-Q (20:44)
[2024-03-08] MEDS: CALCITONIN SALMON INJ 400 UNITS/2 ML VIAL SUB-Q (20:45)
[2024-03-08 21:07] LABS: Glucose Point of Care 140 mg/dl (65-105)
[2024-03-08 23:40] LABS: Glucose Point of Care 127 mg/dl (65-105)
[2024-03-09] VITALS (31 sets, daily range): BP systolic 79–152; BP diastolic 43–95; PULSE 54–128; RESP 15–24; TEMP 36.2–37.2; O2SAT 18–100
[2024-03-09] MEDS: SALINE LOCK FLUSH 10 ML IV PUSH ×3 (06:16→22:30)
[2024-03-09] MEDS: LANSOPRAZOLE ODT 30 MG TAB.RAP.DR FEED TUBE (06:18)
[2024-03-09 06:35] LABS: Glucose Point of Care 105 mg/dl (65-105)
[2024-03-09 06:39] LABS: Basophils Absolute Auto 0.1 K/mm3 (0.0-0.1); Basophils Percent Auto 0.7 % (0.2-1.2); Eosinophils Absolute Auto 0.1 K/mm3 (0-0.3); Eosinophils Percent Auto 0.8 % (0-4.4); Hemoglobin 9.3 g/dL (12.0-15.0); Immature Granulocyte Absolute 0.02 K/mm3 (0.00-0.031); Immature Granulocyte Percent A 0.3 % (0-0.5); Immature Platelet Fraction Pct 4.1 % (0.9-11.2); Lymphocytes Absolute Auto 1.48 K/mm3 (0.9-3.2); Lymphocytes Percent Auto 20.1 % (18.3-44.2); Mean Corpuscular Hemoglobin 28.4 pg (26-34); Mean Corpuscular Volume 94.8 fl (80-100); Mean Platelet Volume 10.5 fl (7.4-10.4); Monocytes Absolute Auto 0.8 K/mm3 (0.1-0.6); Monocytes Percent Auto 10.2 % (2.6-8.5); Neutrophils Percent Auto 67.9 % (45.5-73.1); Platelet Count Result 81 k/mm3 (150-375); Red Blood Count 3.27 M/mm3 (4.2-5.4); Red Cell Distribution Width 14.6 % (11.5-14.5); White Blood Count 7.4 K/mm3 (4.5-10.0)
[2024-03-09 07:02] LABS: Anion Gap 12 mmol/L (4-12); Blood Urea Nitrogen 47 mg/dL (7-17); Calcium 10.5 mg/dL (8.4-10.2); Carbon Dioxide 24 mmol/L (22-30); Chloride 102 mmol/L (98-107); Estimated CRCL calculation 11 ml/min; Estimated Glomerular Filt Rate 9; Glucose 108 mg/dL (65-110); Magnesium 2.4 mg/dL (1.6-2.3); Sodium 138 mmol/L (137-145)
[2024-03-09 08:42] LABS: Partial Thromboplastin Time 108.2 Seconds (22.3-36.8)
--- NOTE | 2024-03-09 09:31 | PM.PNNEP ---
Progress Note: A&P Assessment and Plan (1) ESRD (end stage renal disease): Code(s): N18.6 - End stage renal disease Status: Chronic Assessment and Plan: creatinine has been running in the 3.2 - 3.6mg/dl range in the last 6 months slow and ongoing progression of kidney disease over the last 2 years with recent deterioration noted in September 2023 some concerns regarding possible uremic symptoms (poor oral intake, decreased energy level/increased fatigue, confusion,...etc) recently due to her diabetes, hypertension, vascular disease, recurrent nephrolithiasis + UTIs and what essentially appears to be only one kidney providing functionality based on previous imaging renal scan in 10/25/14 with poor right kidney function which is 16% of total renal function s/p tunneled HD catheter placement (on 02/28/24) HD today and continue M/W/F schedule for now... will need outpatient dialysis on discharge (2) Acute respiratory failure: Code(s): J96.00 - Acute respiratory failure, unspecified whether with hypoxia or hypercapnia Status: Acute Assessment and Plan: felt to be secondary to pulmonary edema/volume overload and encephalopathy intubated on the evening of 02/26 self extubated on evening of 03/04 fluid removal as tolerated with HD/DUF monitor respiratory status (3) Altered mental status: Code(s): R41.82 - Altered mental status, unspecified Status: Acute Assessment and Plan: clinically better as noted on admission and at nursing facility presumably multifactorial: infections, medicines, hypercalcemia, and uremia. follow mentation (4) Acute UTI: Code(s): N39.0 - Urinary tract infection, site not specified Status: Acute Assessment and Plan: admission urinalysis highly suggestive complicated by indwelling catheter urine and blood cultures negative on 02/24 completed course of antibiotics (5) Hypercalcemia: Code(s): E83.52 - Hypercalcemia Status: Chronic Assessment and Plan: somewhat chronic evaluation to date: ionized calcium okay PTH mildly elevated Vitamin D (25-OH) okay SPEP/UPEP and immunofixation pending on calcitonin may need bone scan adjusting calcium bath with dialysis (6) Benign essential hypertension: Code(s): I10 - Essential (primary) hypertension Status: Chronic Assessment and Plan: reasonable control follow trend of hemodynamics (7) Anemia: Code(s): D64.9 - Anemia, unspecified Status: Chronic Assessment and Plan: due to underlying CKD (with progression of ESRD) and acute illness Epogen with HD follow trend of H/H (8) DVT, bilateral lower limbs: Code(s): I82.403 - Acute embolism and thrombosis of unspecified deep veins of lower extremity, bilateral Status: Acute Assessment and Plan: as noted by LE dopplers on heparin gtt consider switching back to eliquis (9) DM type 2 (diabetes mellitus, type 2): Onset Date: ~2018 Qualifiers: Diabetes mellitus snf insulin use: without snf use Diabetes mellitus complication status: without complication Qualified Code(s): E11.9 - Type 2 diabetes mellitus without complications Code(s): E11.9 - Type 2 diabetes mellitus without complications Status: Chronic Assessment and Plan: follow accu-cheks glycemic control per hospitalists Will continue to follow. Subjective Date/time seen: 03/09/24 09:31 Interval history: Follow-up for chronic kidney disease (wih progression to ESRD on hemodialysis) Tolerating dialysis treatment at the time of my visit (seen on HD at 9:20AM); fluctuating oral intake in general with NGT still in place; stable hemodynamics noted; transferred out of ICU; no apparent distress noted; no other events overnight or earlier this morning. Exam Narrative: General: elderly female in NAD
--- NOTE | 2024-03-09 09:31 | P.PNNP_ITS ---
Progress Note: A&P Assessment and Plan (1) ESRD (end stage renal disease): Code(s): N18.6 - End stage renal disease Status: Chronic Assessment and Plan: * creatinine has been running in the 3.2 - 3.6mg/dl range in the last 6 months * slow and ongoing progression of kidney disease over the last 2 years with recent deterioration noted in September 2023 * some concerns regarding possible uremic symptoms (poor oral intake, decreased energy level/increased fatigue, confusion,...etc) recently * due to her diabetes, hypertension, vascular disease, recurrent nephrolithiasis + UTIs and what essentially appears to be only one kidney providing functionality based on previous imaging * renal scan in 10/25/14 with poor right kidney function which is 16% of total renal function * s/p tunneled HD catheter placement (on 02/28/24) * HD today and continue M/W/F schedule for now... * will need outpatient dialysis on discharge (2) Acute respiratory failure: Code(s): J96.00 - Acute respiratory failure, unspecified whether with hypoxia or hypercapnia Status: Acute Assessment and Plan: * felt to be secondary to pulmonary edema/volume overload and encephalopathy * intubated on the evening of 02/26 * self extubated on evening of 03/04 * fluid removal as tolerated with HD/DUF * monitor respiratory status (3) Altered mental status: Code(s): R41.82 - Altered mental status, unspecified Status: Acute Assessment and Plan: * clinically better * as noted on admission and at nursing facility * presumably multifactorial: infections, medicines, hypercalcemia, and uremia. * follow mentation (4) Acute UTI: Code(s): N39.0 - Urinary tract infection, site not specified Status: Acute Assessment and Plan: * admission urinalysis highly suggestive * complicated by indwelling catheter * urine and blood cultures negative on 02/24 * completed course of antibiotics (5) Hypercalcemia: Code(s): E83.52 - Hypercalcemia Status: Chronic Assessment and Plan: * somewhat chronic * evaluation to date: * ionized calcium okay * PTH mildly elevated * Vitamin D (25-OH) okay * SPEP/UPEP and immunofixation pending * on calcitonin * may need bone scan * adjusting calcium bath with dialysis (6) Benign essential hypertension: Code(s): I10 - Essential (primary) hypertension Status: Chronic Assessment and Plan: * reasonable control * follow trend of hemodynamics (7) Anemia: Code(s): D64.9 - Anemia, unspecified Status: Chronic Assessment and Plan: * due to underlying CKD (with progression of ESRD) and acute illness * Epogen with HD * follow trend of H/H (8) DVT, bilateral lower limbs: Code(s): I82.403 - Acute embolism and thrombosis of unspecified deep veins of lower extremity, bilateral Status: Acute Assessment and Plan: * as noted by LE dopplers * on heparin gtt * consider switching back to eliquis (9) DM type 2 (diabetes mellitus, type 2): Onset Date: ~2018 Qualifiers: Diabetes mellitus intermediate designer insulin use: without intermediate designer use Diabetes mellitus complication status: without complication Qualified Code(s): E11.9 - Type 2 diabetes mellitus without complications Code(s): E11.9 - Type 2 diabetes mellitus without complications Status: Chronic Assessment and Plan: * follow accu-cheks * glycemic control per hospitalists Will contin
[2024-03-09] MEDS: HEPARIN SOD/D5W 100 UNITS/ML 25,000 UNITS/250 ML BAG 11 UNITS IV CONT ×2 (10:08→13:53)
--- NOTE | 2024-03-09 10:13 | PCOTNOTE ---
Attempted to see pt. for OT evaluation. Pt. away from room for dialysis. Nursing aware
[2024-03-09] MEDS: EPOETIN ALFA-EPBX 10,000 UNITS/ML VIAL 10000 UNITS IV PUSH (10:20)
--- NOTE | 2024-03-09 13:30 | PC.NURSE ---
Pt received from ICU-2 after dialysis. Report received from BASSEM Scott @ [id number]
[2024-03-09] MEDS: CHOLECALCIFEROL 1,000 UNITS TABLET 2000 UNITS PO (13:51)
[2024-03-09] MEDS: METOPROLOL TARTRATE 25 MG TABLET PO ×2 (13:51→20:17)
[2024-03-09] MEDS: ALPRAZolam (*CRX) 0.25 MG TABLET PO (13:52)
[2024-03-09] MEDS: FERROUS SULFATE LIQUID 325 MG/7.4 ML ELIXIR FEED TUBE (13:52)
[2024-03-09] MEDS: CYANOCOBALAMIN 1,000 MCG TABLET 1000 MCG PO (13:52)
[2024-03-09] MEDS: ROSUVASTATIN 10 MG TABLET PO (13:52)
[2024-03-09] MEDS: polyethylene glycoL 3350 17 GM POWD.PACK PO (13:52)
[2024-03-09 15:00] LABS: Glucose Point of Care 89 mg/dl (65-105)
[2024-03-09] MEDS: methylPHENIDATE HCL (*CRX) 10 MG TABLET PO (16:26)
[2024-03-09] MEDS: ONDANSETRON INJ 4 MG/2 ML VIAL IV PUSH (16:26)
[2024-03-09 16:31] LABS: Partial Thromboplastin Time 96.5 Seconds (22.3-36.8)
[2024-03-09] MEDS: CALCITONIN SALMON INJ 400 UNITS/2 ML VIAL SUB-Q ×2 (16:32→21:44)
[2024-03-09 16:39] LABS: Glucose Point of Care 107 mg/dl (65-105)
--- NOTE | 2024-03-09 18:01 | PM.IMPN ---
Progress Note: A&P Assessment and Plan (1) Altered mental status: Code(s): R41.82 - Altered mental status, unspecified Status: Acute (2) Acute respiratory failure: Code(s): J96.00 - Acute respiratory failure, unspecified whether with hypoxia or hypercapnia Status: Acute Plan Assuming care to the patient extubated and intense management by the choir accompanist. The patient is currently on room air. Speech therapy recommendations instituted. The patient is about ready to eat dinner. Continue heparin for now. Fully we can remove the NG tube with the patient is willing to eat and does not aspirate. The daughter at bedside reports the patient is just about at her normal. We agreed that the patient could tolerate food and does not deteriorate then we would pull the NG tube out attempt to get the patient discharged back to her usual living. Continue to monitor for of meds of aspiration pneumonia. At this point she looks very stable. Dialysis per Nephrology. March 09: Patient promised she will eat lunch but then later refused. Again encouraged her and the daughter that she should try to eat dinner at least so we can remove the NG tube. Continue Lantus. Continue Accu-Cheks. Currently she is in the low 100s heart rate. Her platelets have decreased and I advised them as well we should switch her heparin to apixaban to prevent further complication with that. She is going to attempt to eat dinner now. Full code. Heparin GTT. Stable. Subjective Date/time seen: 03/09/24 18:01 Interval history: No acute overnight events. The patient seems to be warming up to me in is a little more talkative. He asked that I sit by her bedside and do not leave. I let her know I would be around as much as I can but have other patients to see. She said that her main concern is that the NG tube is agitating her. She would try to eat as of dinner she still has not eaten anything. I again encouraged her if she were to eat then we could take the NG tube out. Review of Systems Review of Systems: All systems reviewed & are unremarkable except as noted in HPI and below (Subjective) Exam Const: General: comfortable and no acute distress Eyes: Pupils: Equal, round and reactive pupils present Neck: Neck: supple Resp: Other: Limited inspiratory effort Cardio: Rate: tachycardic Rhythm: regular rhythm GI: GI Palp: Yes Soft to palpation and No Tenderness to palpation present (GI) Extrem: General: no edema Objective Data Vital Signs Vital Signs: Vital Signs - 24 hr 03/08/24 20:00 03/08/24 20:43 03/08/24 20:00 Temperature 99.1 F Pulse Rate 119 H 120 H 125 H Respiratory Rate 19 Blood Pressure 145/87 H Pulse Oximetry 95 Oxygen Delivery Oxygen Flow Rate Fraction of Inspired Oxygen 03/08/24 22:00 03/08/24 20:00 03/08/24 21:00 Temperature Pulse Rate 99 Respiratory Rate Blood Pressure Pulse Oximetry 95 96 Oxygen Delivery Room Air Nasal Cannula Oxygen Flow Rate 2 Fraction of Inspired Oxygen 03/09/24 00:00 03/09/24 00:00 03/09/24 00:00 Temperature 99.0 F Pulse Rate 107 H 101 H Respiratory Rate 17 Blood Pressure 119/75 Pulse Oximetry 100 100 Oxygen Delivery Nasal Cannula Oxygen Flow Rate 2 Fraction of Inspired Oxygen 03/09/24 02:00 03/09/24 04:00 03/09/24 04:00 Temperature 98.0 F Pulse Rate 108 H 101 H Respiratory Rate 15 Blood Pressure 130/58 L Pulse Oximetry 100 100 Oxygen Delivery Nasal Cannula Oxygen Flow Rate 2 Fraction of Inspired Oxygen 03/09/24 04:00 03/09/24 06:00 03/09/24 08:32 Temperature Pulse Rate 105 H 116 H Respiratory Rate Blood Pressure Pulse Oximetry Oxygen Delivery Oxygen Flow Rate 2 Fraction of Inspired Oxygen 0 03/09/24 08:32 03/09/24 08:42 03/09/24 08:45 Temperature 97.5 F L Pulse Rate 106 H 107 H 70 Respiratory Rate 20 Blood Pressure 144/78 H 152/73 H 141/72 H
[2024-03-09] MEDS: QUEtiapine FUMARATE 25 MG TABLET 50 MG PO (20:16)
[2024-03-09] MEDS: APIXABAN 2.5 MG TABLET PO (20:17)
[2024-03-09] MEDS: ARIPiprazole 2 MG TABLET PO (20:17)
[2024-03-09 20:38] LABS: Immunofixation, Serum Normal pattern.
--- NOTE | 2024-03-09 22:20 | PC.NURSE ---
Patient is alert and oriented to self, place but not year. Patient has been uncooperative tonight and yelling help. Patient continues to want to call her daughter at home or have the staff call to talk to her. I spoke with the daughter and she asked that I take the patient's cell phone away from her so she cannot call her anymore tonight and to call her if there is an emergency. I explained this to the patient and moved the cell phone to an area the patient can't reach. Patient is still in bilateral soft wrist restraints due to be a safety risk to herself. Hourly rounds are made to check on her and she is in a room with a camera to view her at the nurses station. Will continue to monitor the patient closely.
--- NOTE | 2024-03-09 22:41 | PC.NURSE ---
RN entered patient room to fix tele leads, as I did, patient grabbed at my arms/hands and dug her nails into my 1 of my arms. Patient also took the call light and continued to slam it against the bedside table. Patient's restraints were checked and adjusted.
[2024-03-10] VITALS (13 sets, daily range): BP systolic 93–125; BP diastolic 59–83; PULSE 73–121; RESP 16–20; TEMP 36.2–36.6; O2SAT 95–98
[2024-03-10 00:08] LABS: Glucose Point of Care 124 mg/dl (65-105)
[2024-03-10] MEDS: SALINE LOCK FLUSH 10 ML IV PUSH ×2 (06:00→14:38)
[2024-03-10 08:19] LABS: Basophils Absolute Auto 0.1 K/mm3 (0.0-0.1); Basophils Percent Auto 0.8 % (0.2-1.2); Eosinophils Absolute Auto 0.1 K/mm3 (0-0.3); Eosinophils Percent Auto 0.8 % (0-4.4); Hematocrit 30.9 % (37.0-47.0); Hemoglobin 9.3 g/dL (12.0-15.0); Immature Granulocyte Absolute 0.03 K/mm3 (0.00-0.031); Immature Granulocyte Percent A 0.5 % (0-0.5); Immature Platelet Fraction Pct 8.1 % (0.9-11.2); Lymphocytes Absolute Auto 1.59 K/mm3 (0.9-3.2); Lymphocytes Percent Auto 24.4 % (18.3-44.2); Mean Corpuscular HGB Conc 30.1 g/dl (32-36); Mean Corpuscular Hemoglobin 28.5 pg (26-34); Mean Corpuscular Volume 94.8 fl (80-100); Mean Platelet Volume 12.1 fl (7.4-10.4); Monocytes Absolute Auto 0.8 K/mm3 (0.1-0.6); Monocytes Percent Auto 11.5 % (2.6-8.5); Platelet Count Result 63 k/mm3 (150-375); Red Blood Count 3.26 M/mm3 (4.2-5.4); Red Cell Distribution Width 14.6 % (11.5-14.5); White Blood Count 6.5 K/mm3 (4.5-10.0)
[2024-03-10 08:42] LABS: Anion Gap 12 mmol/L (4-12); Blood Urea Nitrogen 25 mg/dL (7-17); Calcium 10.4 mg/dL (8.4-10.2); Carbon Dioxide 25 mmol/L (22-30); Chloride 101 mmol/L (98-107); Estimated CRCL calculation 16 ml/min; Estimated Glomerular Filt Rate 13; Glucose 116 mg/dL (65-110); Magnesium 2.1 mg/dL (1.6-2.3); Phosphorus 4.4 mg/dL (2.5-4.5); Potassium 3.9 mmol/L (3.4-5.0); Sodium 138 mmol/L (137-145)
[2024-03-10] MEDS: CHOLECALCIFEROL 1,000 UNITS TABLET 2000 UNITS PO (09:25)
[2024-03-10] MEDS: PANTOPRAZOLE 40 MG TABLET PO (09:25)
[2024-03-10] MEDS: METOPROLOL TARTRATE 25 MG TABLET PO ×2 (09:26→21:27)
[2024-03-10] MEDS: APIXABAN 2.5 MG TABLET PO ×2 (09:26→21:27)
[2024-03-10] MEDS: CALCITONIN SALMON INJ 400 UNITS/2 ML VIAL SUB-Q (09:26)
[2024-03-10] MEDS: methylPHENIDATE HCL (*CRX) 10 MG TABLET PO ×2 (09:26→12:13)
[2024-03-10] MEDS: ROSUVASTATIN 10 MG TABLET PO (09:26)
[2024-03-10] MEDS: CYANOCOBALAMIN 1,000 MCG TABLET 1000 MCG PO (09:27)
[2024-03-10 10:41] LABS: Anisocytosis 1+; Platelet Estimate Decreased (Adequate); Schistocytes None Seen
--- NOTE | 2024-03-10 11:16 | PM.IMPN ---
Progress Note: A&P Assessment and Plan (1) Altered mental status: Code(s): R41.82 - Altered mental status, unspecified Status: Acute (2) Acute respiratory failure: Code(s): J96.00 - Acute respiratory failure, unspecified whether with hypoxia or hypercapnia Status: Acute Plan Assuming care to the patient extubated and intense management by the probate clerk. The patient is currently on room air. Speech therapy recommendations instituted. The patient is about ready to eat dinner. Continue heparin for now. Fully we can remove the NG tube with the patient is willing to eat and does not aspirate. The daughter at bedside reports the patient is just about at her normal. We agreed that the patient could tolerate food and does not deteriorate then we would pull the NG tube out attempt to get the patient discharged back to her usual living. Continue to monitor for of meds of aspiration pneumonia. At this point she looks very stable. Dialysis per Nephrology. March 09: Patient promised she will eat lunch but then later refused. Again encouraged her and the daughter that she should try to eat dinner at least so we can remove the NG tube. Continue Accu-Cheks. Currently she is in the low 100s heart rate. Her platelets have decreased and I advised them as well we should switch her heparin to apixaban to prevent further complication with that. She is going to attempt to eat dinner now. March 10: NG tube removed and she is feeding herself without choking. Her blood sugars continue to be on the lower side so we will continue holding the Lantus. Accu-Cheks changed from q.6 hours to a.c. HS. Continue to encourage incentive spirometer use. Heparin switched often apixaban 2.5 mg p.o. b.i.d. started. Will have to discuss with Nephrology about increasing this to 5 mg p.o. b.i.d. for DVT. Monitor hemoglobin the same time, she has had drop in platelets so would be stewart to hold off on increasing the apixaban dose anyway. Direct platelet antibody sent out. FEN: Saline lock IV. Diabetic consistent carbohydrate diet heart healthy diet. Pureed level 4 in thickened liquids diet. GI prophylaxis: Protonix. Consider discontinue since the patient is beginning to eat. Does not appear she takes a PPI at home DVT prophylaxis: Apixaban 2.5 mg p.o. b.i.d. Lines: PICC line. Chronic Braswell catheter. Code Status: Full code Dispo: Stable on telemetry floor. Defer to medical floor. She has to have no sitter for 24 hours and no wrist restraints for 48 hours. Wrist restraints removed and she is doing fine. No sitter tomorrow. However, she should have monitored feedings. Plan for discharge Tuesday or later whenever outpatient dialysis is set up. Subjective Date/time seen: 03/10/24 11:16 Interval history: No acute overnight events. Patient observed feeding herself a pureed diet without choking or any other associated symptoms.Kortney LUEVANO and Kassie BECKER bedside. Has no complaints and only once the go home Review of Systems Review of Systems: All systems reviewed & are unremarkable except as noted in HPI and below (Subjective) Exam Const: General: comfortable and no acute distress Other: Pleasant today Eyes: Pupils: Equal, round and reactive pupils present Neck: Neck: supple Resp: Other: Limited inspiratory effort Cardio: Rate: tachycardic Rhythm: regular rhythm GI: GI Palp: Yes Soft to palpation and No Tenderness to palpation present (GI) Extrem: General: no edema Objective Data Vital Signs Vital Signs: Vital Signs - 24 hr 03/09/24 11:30 03/09/24 11:45 03/09/24 12:00 Temperature Pulse Rate 80 71 69 Respiratory Rate Blood Pressure 112/54 L 79/49 L 109/59 L Pulse Oximetry Oxygen Delivery Oxygen Flow Rate 03/09/24 12:17 03/09/24 12:45 03/09/24 13:40 Temperature 97.5 F L Pulse Rate 69 81 Respiratory Rate 18 Blood Pressure 112/59 L 113/58 L Pulse Oximetry 100 100 Oxy
[2024-03-10 12:08] LABS: Glucose Point of Care 180 mg/dl (65-105)
--- NOTE | 2024-03-10 12:28 | PC.NURSE ---
Pt arrived to floor and report was provided. Daugther and sitter at bedside.
--- NOTE | 2024-03-10 12:33 | PC.NURSE ---
This patient, Maria R Barrientos, was transferred to [[id number] ] on 03/10/24 at 1230. Personal belongings sent with patient. Report given to [Irma RN]. Appropriate documentation sent with patient.
--- NOTE | 2024-03-10 12:43 | PM.PNNEP ---
Progress Note: A&P Assessment and Plan (1) ESRD (end stage renal disease): Code(s): N18.6 - End stage renal disease Status: Chronic Assessment and Plan: creatinine has been running in the 3.2 - 3.6mg/dl range in the last 6 months slow and ongoing progression of kidney disease over the last 2 years with recent deterioration noted in September 2023 some concerns regarding possible uremic symptoms (poor oral intake, decreased energy level/increased fatigue, confusion,...etc) recently due to her diabetes, hypertension, vascular disease, recurrent nephrolithiasis + UTIs and what essentially appears to be only one kidney providing functionality based on previous imaging renal scan in 10/25/14 with poor right kidney function which is 16% of total renal function s/p tunneled HD catheter placement (on 02/28/24) HD yesterday and continue M/W/F schedule for now... will need outpatient dialysis on discharge (2) Acute respiratory failure: Code(s): J96.00 - Acute respiratory failure, unspecified whether with hypoxia or hypercapnia Status: Acute Assessment and Plan: clinically better if not resolved felt to be secondary to pulmonary edema/volume overload and encephalopathy intubated on the evening of 02/26 self extubated on evening of 03/04 fluid removal as tolerated with HD/DUF monitor respiratory status (3) Altered mental status: Code(s): R41.82 - Altered mental status, unspecified Status: Acute Assessment and Plan: clinically better as noted on admission and at nursing facility presumably multifactorial: infections, medicines, hypercalcemia, and uremia. follow mentation (4) Acute UTI: Code(s): N39.0 - Urinary tract infection, site not specified Status: Acute Assessment and Plan: admission urinalysis highly suggestive complicated by indwelling catheter urine and blood cultures negative on 02/24 completed course of antibiotics (5) Hypercalcemia: Code(s): E83.52 - Hypercalcemia Status: Chronic Assessment and Plan: better currenbtly somewhat chronic from review of records due to prolonged immobilization(?) evaluation to date: ionized calcium okay PTH mildly elevated Vitamin D (25-OH) okay serum/urine immunofixation negative s/p calcitonin - will d/c today may need bone scan at a later date adjusting calcium bath with dialysis (6) Benign essential hypertension: Code(s): I10 - Essential (primary) hypertension Status: Chronic Assessment and Plan: reasonable control follow trend of hemodynamics (7) Anemia: Code(s): D64.9 - Anemia, unspecified Status: Chronic Assessment and Plan: due to underlying CKD (with progression of ESRD) and acute illness Epogen with HD follow trend of H/H (8) DVT, bilateral lower limbs: Code(s): I82.403 - Acute embolism and thrombosis of unspecified deep veins of lower extremity, bilateral Status: Acute Assessment and Plan: as noted by LE dopplers back on Eliquis (9) DM type 2 (diabetes mellitus, type 2): Onset Date: ~2018 Qualifiers: Diabetes mellitus complication status: without complication Diabetes mellitus intermediate card tender insulin use: without intermediate card tender use Qualified Code(s): E11.9 - Type 2 diabetes mellitus without complications Code(s): E11.9 - Type 2 diabetes mellitus without complications Status: Chronic Assessment and Plan: follow accu-cheks glycemic control per hospitalists Will continue to follow. Subjective Date/time seen: 03/10/24 12:43 Interval history: Follow-up for chronic kidney disease (wih progression to ESRD on hemodialysis) Tolerated dialysis treatment yesterday without any issues or problems; per nursing, had been feeding herself with any concerns for aspiration; no apparent distress noted; breathing/respiratory status seems stable as we
--- NOTE | 2024-03-10 12:43 | P.PNNP_ITS ---
Progress Note: A&P Assessment and Plan (1) ESRD (end stage renal disease): Code(s): N18.6 - End stage renal disease Status: Chronic Assessment and Plan: * creatinine has been running in the 3.2 - 3.6mg/dl range in the last 6 months * slow and ongoing progression of kidney disease over the last 2 years with recent deterioration noted in September 2023 * some concerns regarding possible uremic symptoms (poor oral intake, decreased energy level/increased fatigue, confusion,...etc) recently * due to her diabetes, hypertension, vascular disease, recurrent nephrolithiasis + UTIs and what essentially appears to be only one kidney providing functionality based on previous imaging * renal scan in 10/25/14 with poor right kidney function which is 16% of total renal function * s/p tunneled HD catheter placement (on 02/28/24) * HD yesterday and continue M/W/F schedule for now... * will need outpatient dialysis on discharge (2) Acute respiratory failure: Code(s): J96.00 - Acute respiratory failure, unspecified whether with hypoxia or hypercapnia Status: Acute Assessment and Plan: * clinically better if not resolved * felt to be secondary to pulmonary edema/volume overload and encephalopathy * intubated on the evening of 02/26 * self extubated on evening of 03/04 * fluid removal as tolerated with HD/DUF * monitor respiratory status (3) Altered mental status: Code(s): R41.82 - Altered mental status, unspecified Status: Acute Assessment and Plan: * clinically better * as noted on admission and at nursing facility * presumably multifactorial: infections, medicines, hypercalcemia, and uremia. * follow mentation (4) Acute UTI: Code(s): N39.0 - Urinary tract infection, site not specified Status: Acute Assessment and Plan: * admission urinalysis highly suggestive * complicated by indwelling catheter * urine and blood cultures negative on 02/24 * completed course of antibiotics (5) Hypercalcemia: Code(s): E83.52 - Hypercalcemia Status: Chronic Assessment and Plan: * better currenbtly * somewhat chronic from review of records * due to prolonged immobilization(?) * evaluation to date: * ionized calcium okay * PTH mildly elevated * Vitamin D (25-OH) okay * serum/urine immunofixation negative * s/p calcitonin - will d/c today * may need bone scan at a later date * adjusting calcium bath with dialysis (6) Benign essential hypertension: Code(s): I10 - Essential (primary) hypertension Status: Chronic Assessment and Plan: * reasonable control * follow trend of hemodynamics (7) Anemia: Code(s): D64.9 - Anemia, unspecified Status: Chronic Assessment and Plan: * due to underlying CKD (with progression of ESRD) and acute illness * Epogen with HD * follow trend of H/H (8) DVT, bilateral lower limbs: Code(s): I82.403 - Acute embolism and thrombosis of unspecified deep veins of lower extremity, bilateral Status: Acute Assessment and Plan: * as noted by LE dopplers * back on Eliquis (9) DM type 2 (diabetes mellitus, type 2): Onset Date: ~2018 Qualifiers: Diabetes mellitus complication status: without complication Diabetes mellitus computer terminal operator insulin use: without fpc use Qualified Code(s): E11.9 - Type 2 diabetes mellitus without complications Code(s): E11.9 - Type 2 diabetes mellitus without complications Status
[2024-03-10 21:10] LABS: Glucose Point of Care 192 mg/dl (65-105)
[2024-03-10] MEDS: QUEtiapine FUMARATE 25 MG TABLET 50 MG PO (21:27)
[2024-03-10] MEDS: ARIPiprazole 2 MG TABLET PO (21:27)
[2024-03-11 06:00] VITALS: BP 98/58; PULSE 68; RESP 20; TEMP 36.4; O2SAT 95
[2024-03-11] MEDS: ACETAMINOPHEN 325 MG TABLET 650 MG PO ×2 (06:30→20:21)
[2024-03-11 06:50] LABS: Hematocrit 30.5 % (37.0-47.0); Hemoglobin 9.4 g/dL (12.0-15.0); Immature Platelet Fraction Pct 6.3 % (0.9-11.2); Mean Corpuscular HGB Conc 30.8 g/dl (32-36); Mean Corpuscular Hemoglobin 28.9 pg (26-34); Mean Corpuscular Volume 93.8 fl (80-100); Mean Platelet Volume 11.7 fl (7.4-10.4); Platelet Count Result 83 k/mm3 (150-375); Red Blood Count 3.25 M/mm3 (4.2-5.4); Red Cell Distribution Width 14.6 % (11.5-14.5); White Blood Count 5.9 K/mm3 (4.5-10.0)
[2024-03-11 07:07] LABS: Anion Gap 11 mmol/L (4-12); Blood Urea Nitrogen 43 mg/dL (7-17); Calcium 10.9 mg/dL (8.4-10.2); Carbon Dioxide 25 mmol/L (22-30); Chloride 100 mmol/L (98-107); Estimated CRCL calculation 11 ml/min; Estimated Glomerular Filt Rate 9; Glucose 146 mg/dL (65-110); Magnesium 2.3 mg/dL (1.6-2.3); Potassium 4.1 mmol/L (3.4-5.0); Sodium 136 mmol/L (137-145)
[2024-03-11 07:33] LABS: Glucose Point of Care 143 mg/dl (65-105)
[2024-03-11 08:00] VITALS: PULSE 68; RESP 20; O2SAT 95
--- NOTE | 2024-03-11 08:10 | PM.IMPN ---
Progress Note: A&P Assessment and Plan (1) Altered mental status: Code(s): R41.82 - Altered mental status, unspecified Status: Acute (2) Acute respiratory failure: Code(s): J96.00 - Acute respiratory failure, unspecified whether with hypoxia or hypercapnia Status: Acute Plan Assuming care to the patient extubated and intense management by the transition teacher. The patient is currently on room air. Speech therapy recommendations instituted. The patient is about ready to eat dinner. Continue heparin for now. Fully we can remove the NG tube with the patient is willing to eat and does not aspirate. The daughter at bedside reports the patient is just about at her normal. We agreed that the patient could tolerate food and does not deteriorate then we would pull the NG tube out attempt to get the patient discharged back to her usual living. Continue to monitor for of meds of aspiration pneumonia. At this point she looks very stable. Dialysis per Nephrology. March 09: Patient promised she will eat lunch but then later refused. Again encouraged her and the daughter that she should try to eat dinner at least so we can remove the NG tube. Continue Accu-Cheks. Currently she is in the low 100s heart rate. Her platelets have decreased and I advised them as well we should switch her heparin to apixaban to prevent further complication with that. She is going to attempt to eat dinner now. March 10: NG tube removed and she is feeding herself without choking. Her blood sugars continue to be on the lower side so we will continue holding the Lantus. Accu-Cheks changed from q.6 hours to a.c. HS. Continue to encourage incentive spirometer use. Heparin switched often apixaban 2.5 mg p.o. b.i.d. started. Will have to discuss with Nephrology about increasing this to 5 mg p.o. b.i.d. for DVT. Monitor hemoglobin the same time, she has had drop in platelets so would be stewart to hold off on increasing the apixaban dose anyway. Direct platelet antibody sent out. March 11: The patient continues do well. Her blood sugars remain well controlled. Continue to hold Lantus. She continues to eat by herself without choking. Discontinue Protonix. Discussed anticoagulation with the patient's daughter, discussed risks versus benefits. She is willing to pursue full anticoagulation for the DVT FEN: Saline lock IV. Diabetic consistent carbohydrate diet heart healthy diet. Pureed level 4 in thickened liquids diet. GI prophylaxis: Discontinue Protonix on 03/11 DVT prophylaxis: Apixaban 5 mg p.o. b.i.d. Lines: PICC line right arm. Chronic Braswell catheter. Code Status: Full code Dispo: Stable on medical floor. No sitter and no restraints anticipation for discharge once outpatient dialysis is set up. Subjective Date/time seen: 03/11/24 08:10 Interval history: No acute overnight events. The patient sits up in bed eating breakfast, feeding herself. She appears to have a good swallow without any aspirating Review of Systems Review of Systems: All systems reviewed & are unremarkable except as noted in HPI and below (Subjective) Exam Const: General: comfortable and no acute distress Eyes: Pupils: Equal, round and reactive pupils present Neck: Neck: supple Resp: Effort & Inspection: normal respiratory effort Auscultation: clear to auscultation bilaterally Cardio: Rate: regular rate Rhythm: abnormal rhythm GI: GI Palp: Yes Soft to palpation and No Tenderness to palpation present (GI) Extrem: General: no edema Objective Data Vital Signs Vital Signs: Vital Signs - 24 hr 03/10/24 09:26 03/10/24 10:00 03/10/24 11:57 Temperature Pulse Rate 73 106 H 99 Respiratory Rate 16 Blood Pressure 93/63 L Pulse Oximetry 96 Oxygen Delivery Fraction of Inspired Oxygen 03/10/24 14:00 03/10/24 16:00 03/10/24 14:36 Temperature 97.8 F 97.8 F Pulse Rate 98 98 Respiratory Rate 18 18 Blood Pressure 102/59 L 102/59 L
[2024-03-11] MEDS: CYANOCOBALAMIN 1,000 MCG TABLET 1000 MCG PO (09:16)
[2024-03-11] MEDS: APIXABAN 2.5 MG TABLET PO (09:16)
[2024-03-11] MEDS: ROSUVASTATIN 10 MG TABLET PO (09:16)
[2024-03-11] MEDS: methylPHENIDATE HCL (*CRX) 10 MG TABLET PO ×2 (09:16→14:48)
[2024-03-11] MEDS: FERROUS SULFATE LIQUID 325 MG/7.4 ML ELIXIR FEED TUBE (09:16)
[2024-03-11] MEDS: CHOLECALCIFEROL 1,000 UNITS TABLET 2000 UNITS PO (09:16)
[2024-03-11] MEDS: METOPROLOL TARTRATE 25 MG TABLET PO ×2 (09:16→20:12)
[2024-03-11] MEDS: polyethylene glycoL 3350 17 GM POWD.PACK PO (09:17)
[2024-03-11 09:19] VITALS: BP 102/60
--- NOTE | 2024-03-11 09:27 | PC.NURSE ---
All medications starting at 0700 and after were administered by Suzanne Ha RN. Charted under Jermaine Farmer RN.
--- NOTE | 2024-03-11 09:28 | PC.NURSE ---
Ish removed from patient room at 0800.
[2024-03-11 11:40] LABS: Glucose Point of Care 172 mg/dl (65-105)
--- NOTE | 2024-03-11 12:38 | PM.PNNEP ---
Progress Note: A&P Assessment and Plan (1) ESRD (end stage renal disease): Code(s): N18.6 - End stage renal disease Status: Chronic Assessment and Plan: creatinine has been running in the 3.2 - 3.6mg/dl range in the last 6 months slow and ongoing progression of kidney disease over the last 2 years with recent deterioration noted in September 2023 some concerns regarding possible uremic symptoms (poor oral intake, decreased energy level/increased fatigue, confusion,...etc) recently due to her diabetes, hypertension, vascular disease, recurrent nephrolithiasis + UTIs and what essentially appears to be only one kidney providing functionality based on previous imaging renal scan in 10/25/14 with poor right kidney function which is 16% of total renal function s/p tunneled HD catheter placement (on 02/28/24) HD tomorrow and continue M/W/F schedule for now... will need outpatient dialysis on discharge (2) Acute respiratory failure: Code(s): J96.00 - Acute respiratory failure, unspecified whether with hypoxia or hypercapnia Status: Acute Assessment and Plan: clinically better if not resolved felt to be secondary to pulmonary edema/volume overload and encephalopathy intubated on the evening of 02/26 self extubated on evening of 03/04 fluid removal as tolerated with HD/DUF monitor respiratory status (3) Altered mental status: Code(s): R41.82 - Altered mental status, unspecified Status: Acute Assessment and Plan: clinically better as noted on admission and at nursing facility presumably multifactorial: infections, medicines, hypercalcemia, and uremia. follow mentation (4) Acute UTI: Code(s): N39.0 - Urinary tract infection, site not specified Status: Acute Assessment and Plan: admission urinalysis highly suggestive complicated by indwelling catheter urine and blood cultures negative on 02/24 completed course of antibiotics (5) Hypercalcemia: Code(s): E83.52 - Hypercalcemia Status: Chronic Assessment and Plan: better currently somewhat chronic from review of records due to prolonged immobilization(?) evaluation to date: ionized calcium okay PTH mildly elevated Vitamin D (25-OH) okay serum/urine immunofixation negative s/p calcitonin may need bone scan at a later date adjusting calcium bath with dialysis (6) Benign essential hypertension: Code(s): I10 - Essential (primary) hypertension Status: Chronic Assessment and Plan: reasonable control follow trend of hemodynamics (7) Anemia: Code(s): D64.9 - Anemia, unspecified Status: Chronic Assessment and Plan: due to underlying CKD (with progression of ESRD) and acute illness Epogen with HD follow trend of H/H (8) DVT, bilateral lower limbs: Code(s): I82.403 - Acute embolism and thrombosis of unspecified deep veins of lower extremity, bilateral Status: Acute Assessment and Plan: as noted by LE dopplers back on Eliquis (9) DM type 2 (diabetes mellitus, type 2): Onset Date: ~2018 Qualifiers: Diabetes mellitus complication status: without complication 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: without predatory animal exterminator use Qualified Code(s): E11.9 - Type 2 diabetes mellitus without complications Code(s): E11.9 - Type 2 diabetes mellitus without complications Status: Chronic Assessment and Plan: follow accu-cheks glycemic control per hospitalists Will continue to follow. Subjective Date/time seen: 03/11/24 12:38 Interval history: Follow-up for chronic kidney disease (wih progression to ESRD on hemodialysis) Appears to be doing reasonably well at the time of my visit; ate breakfast with any issues with choking or aspiration; has not really eaten anything for lunch as yet; stable hemodynamics noted and respiratory status seems stable; no appar
--- NOTE | 2024-03-11 12:38 | P.PNNP_ITS ---
Progress Note: A&P Assessment and Plan (1) ESRD (end stage renal disease): Code(s): N18.6 - End stage renal disease Status: Chronic Assessment and Plan: * creatinine has been running in the 3.2 - 3.6mg/dl range in the last 6 months * slow and ongoing progression of kidney disease over the last 2 years with recent deterioration noted in September 2023 * some concerns regarding possible uremic symptoms (poor oral intake, decreased energy level/increased fatigue, confusion,...etc) recently * due to her diabetes, hypertension, vascular disease, recurrent nephrolithiasis + UTIs and what essentially appears to be only one kidney providing functionality based on previous imaging * renal scan in 10/25/14 with poor right kidney function which is 16% of total renal function * s/p tunneled HD catheter placement (on 02/28/24) * HD tomorrow and continue M/W/F schedule for now... * will need outpatient dialysis on discharge (2) Acute respiratory failure: Code(s): J96.00 - Acute respiratory failure, unspecified whether with hypoxia or hypercapnia Status: Acute Assessment and Plan: * clinically better if not resolved * felt to be secondary to pulmonary edema/volume overload and encephalopathy * intubated on the evening of 02/26 * self extubated on evening of 03/04 * fluid removal as tolerated with HD/DUF * monitor respiratory status (3) Altered mental status: Code(s): R41.82 - Altered mental status, unspecified Status: Acute Assessment and Plan: * clinically better * as noted on admission and at nursing facility * presumably multifactorial: infections, medicines, hypercalcemia, and uremia. * follow mentation (4) Acute UTI: Code(s): N39.0 - Urinary tract infection, site not specified Status: Acute Assessment and Plan: * admission urinalysis highly suggestive * complicated by indwelling catheter * urine and blood cultures negative on 02/24 * completed course of antibiotics (5) Hypercalcemia: Code(s): E83.52 - Hypercalcemia Status: Chronic Assessment and Plan: * better currently * somewhat chronic from review of records * due to prolonged immobilization(?) * evaluation to date: * ionized calcium okay * PTH mildly elevated * Vitamin D (25-OH) okay * serum/urine immunofixation negative * s/p calcitonin * may need bone scan at a later date * adjusting calcium bath with dialysis (6) Benign essential hypertension: Code(s): I10 - Essential (primary) hypertension Status: Chronic Assessment and Plan: * reasonable control * follow trend of hemodynamics (7) Anemia: Code(s): D64.9 - Anemia, unspecified Status: Chronic Assessment and Plan: * due to underlying CKD (with progression of ESRD) and acute illness * Epogen with HD * follow trend of H/H (8) DVT, bilateral lower limbs: Code(s): I82.403 - Acute embolism and thrombosis of unspecified deep veins of lower extremity, bilateral Status: Acute Assessment and Plan: * as noted by LE dopplers * back on Eliquis (9) DM type 2 (diabetes mellitus, type 2): Onset Date: ~2018 Qualifiers: Diabetes mellitus complication status: without complication Diabetes mellitus continuous churn buttermaker insulin use: without continuous churn buttermaker use Qualified Code(s): E11.9 - Type 2 diabetes mellitus without complications Code(s): E11.9 - Type 2 diabetes mellitus without complications Status: Chronic Ass
[2024-03-11 14:41] VITALS: BP 126/57; PULSE 103; RESP 18; TEMP 36.7; O2SAT 97
[2024-03-11 16:07] LABS: Glucose Point of Care 159 mg/dl (65-105)
[2024-03-11] MEDS: SALINE LOCK FLUSH 10 ML IV PUSH ×2 (17:53→20:12)
[2024-03-11 19:36] VITALS: PULSE 103; RESP 18; O2SAT 97
[2024-03-11] MEDS: QUEtiapine FUMARATE 25 MG TABLET 50 MG PO (20:12)
[2024-03-11] MEDS: APIXABAN 5 MG TABLET PO (20:12)
[2024-03-11] MEDS: ARIPiprazole 2 MG TABLET PO (20:16)
[2024-03-11 21:17] LABS: Glucose Point of Care 209 mg/dl (65-105)
[2024-03-11 21:47] VITALS: BP 101/56; PULSE 92; RESP 20; TEMP 36.7; O2SAT 99
[2024-03-12] VITALS (19 sets, daily range): BP systolic 93–124; BP diastolic 50–97; PULSE 51–102; RESP 16–18; TEMP 36.3–37; O2SAT 98–99
[2024-03-12] MEDS: SALINE LOCK FLUSH 10 ML IV PUSH (05:47)
[2024-03-12 06:32] LABS: Basophils Percent Auto 0.3 % (0.2-1.2); Eosinophils Absolute Auto 0.2 K/mm3 (0-0.3); Eosinophils Percent Auto 3.6 % (0-4.4); Hemoglobin 9.4 g/dL (12.0-15.0); Immature Granulocyte Absolute 0.02 K/mm3 (0.00-0.031); Immature Granulocyte Percent A 0.3 % (0-0.5); Immature Platelet Fraction Pct 6.3 % (0.9-11.2); Lymphocytes Absolute Auto 1.75 K/mm3 (0.9-3.2); Lymphocytes Percent Auto 29.8 % (18.3-44.2); Mean Corpuscular HGB Conc 30.3 g/dl (32-36); Mean Corpuscular Hemoglobin 28.1 pg (26-34); Mean Corpuscular Volume 92.8 fl (80-100); Mean Platelet Volume 11.2 fl (7.4-10.4); Monocytes Absolute Auto 0.6 K/mm3 (0.1-0.6); Monocytes Percent Auto 10.2 % (2.6-8.5); Neutrophils Absolute Auto 3.3 K/mm3 (1.3-6.7); Neutrophils Percent Auto 55.8 % (45.5-73.1); Platelet Count Result 107 k/mm3 (150-375); Red Blood Count 3.34 M/mm3 (4.2-5.4); Red Cell Distribution Width 14.4 % (11.5-14.5); White Blood Count 5.9 K/mm3 (4.5-10.0)
[2024-03-12 06:48] LABS: Anion Gap 13 mmol/L (4-12); Blood Urea Nitrogen 60 mg/dL (7-17); Calcium 10.7 mg/dL (8.4-10.2); Carbon Dioxide 23 mmol/L (22-30); Chloride 100 mmol/L (98-107); Estimated CRCL calculation 9 ml/min; Estimated Glomerular Filt Rate 7; Glucose 137 mg/dL (65-110); Magnesium 2.3 mg/dL (1.6-2.3); Phosphorus 6.9 mg/dL (2.5-4.5); Potassium 4.1 mmol/L (3.4-5.0); Sodium 136 mmol/L (137-145)
[2024-03-12 07:41] LABS: Glucose Point of Care 141 mg/dl (65-105)
--- NOTE | 2024-03-12 09:32 | PC.NURSE ---
pt to dialyysis this am. holding morning meds until pt is back on unit.
[2024-03-12] MEDS: EPOETIN ALFA-EPBX 10,000 UNITS/ML VIAL 10000 UNITS IV PUSH (09:37)
[2024-03-12] MEDS: HEPARIN SODIUM 1,000 UNITS/ML VIAL 10000 UNITS (09:38)
[2024-03-12] MEDS: SODIUM CHLORIDE 0.9% IV 1,000 ML 999 ML IV CONT (09:41)
--- NOTE | 2024-03-12 09:45 | P.PNNP_ITS ---
Progress Note: A&P Assessment and Plan (1) ESRD (end stage renal disease): Code(s): N18.6 - End stage renal disease Status: Chronic Assessment and Plan: * creatinine has been running in the 3.2 - 3.6mg/dl range in the last 6 months * slow and ongoing progression of kidney disease over the last 2 years with recent deterioration noted in September 2023 * some concerns regarding possible uremic symptoms (poor oral intake, decreased energy level/increased fatigue, confusion,...etc) recently * due to her diabetes, hypertension, vascular disease, recurrent nephrolithiasis + UTIs and what essentially appears to be only one kidney providing functionality based on previous imaging * renal scan in 10/25/14 with poor right kidney function which is 16% of total renal function * s/p tunneled HD catheter placement (on 02/28/24) * HD today and continue M/W/F schedule for now... * will need outpatient dialysis on discharge (2) Acute respiratory failure: Code(s): J96.00 - Acute respiratory failure, unspecified whether with hypoxia or hypercapnia Status: Acute Assessment and Plan: * clinically better if not resolved * felt to be secondary to pulmonary edema/volume overload and encephalopathy * intubated on the evening of 02/26 * self extubated on evening of 03/04 * fluid removal as tolerated with HD/DUF * monitor respiratory status (3) Altered mental status: Code(s): R41.82 - Altered mental status, unspecified Status: Acute Assessment and Plan: * clinically better * as noted on admission and at nursing facility * presumably multifactorial: infections, medicines, hypercalcemia, and uremia. * follow mentation (4) Acute UTI: Code(s): N39.0 - Urinary tract infection, site not specified Status: Acute Assessment and Plan: * admission urinalysis highly suggestive * complicated by indwelling catheter * urine and blood cultures negative on 02/24 * completed course of antibiotics (5) Hypercalcemia: Code(s): E83.52 - Hypercalcemia Status: Chronic Assessment and Plan: * better currently * somewhat chronic from review of records * due to prolonged immobilization(?) * evaluation to date: * ionized calcium okay * PTH mildly elevated * Vitamin D (25-OH) okay * serum/urine immunofixation negative * s/p calcitonin * may need bone scan at a later date * adjusting calcium bath with dialysis (6) Benign essential hypertension: Code(s): I10 - Essential (primary) hypertension Status: Chronic Assessment and Plan: * reasonable control * follow trend of hemodynamics (7) Anemia: Code(s): D64.9 - Anemia, unspecified Status: Chronic Assessment and Plan: * due to underlying CKD (with progression of ESRD) and acute illness * Epogen with HD * follow trend of H/H (8) DVT, bilateral lower limbs: Code(s): I82.403 - Acute embolism and thrombosis of unspecified deep veins of lower extremity, bilateral Status: Acute Assessment and Plan: * as noted by LE dopplers * back on Eliquis (9) DM type 2 (diabetes mellitus, type 2): Onset Date: ~2018 Qualifiers: Diabetes mellitus complication status: without complication Diabetes mellitus press tender long goods insulin use: without mcc use Qualified Code(s): E11.9 - Type 2 diabetes mellitus without complications Code(s): E11.9 - Type 2 diabetes mellitus without complications Status: Chronic Assess
--- NOTE | 2024-03-12 09:45 | PM.PNNEP ---
Progress Note: A&P Assessment and Plan (1) ESRD (end stage renal disease): Code(s): N18.6 - End stage renal disease Status: Chronic Assessment and Plan: creatinine has been running in the 3.2 - 3.6mg/dl range in the last 6 months slow and ongoing progression of kidney disease over the last 2 years with recent deterioration noted in September 2023 some concerns regarding possible uremic symptoms (poor oral intake, decreased energy level/increased fatigue, confusion,...etc) recently due to her diabetes, hypertension, vascular disease, recurrent nephrolithiasis + UTIs and what essentially appears to be only one kidney providing functionality based on previous imaging renal scan in 10/25/14 with poor right kidney function which is 16% of total renal function s/p tunneled HD catheter placement (on 02/28/24) HD today and continue M/W/F schedule for now... will need outpatient dialysis on discharge (2) Acute respiratory failure: Code(s): J96.00 - Acute respiratory failure, unspecified whether with hypoxia or hypercapnia Status: Acute Assessment and Plan: clinically better if not resolved felt to be secondary to pulmonary edema/volume overload and encephalopathy intubated on the evening of 02/26 self extubated on evening of 03/04 fluid removal as tolerated with HD/DUF monitor respiratory status (3) Altered mental status: Code(s): R41.82 - Altered mental status, unspecified Status: Acute Assessment and Plan: clinically better as noted on admission and at nursing facility presumably multifactorial: infections, medicines, hypercalcemia, and uremia. follow mentation (4) Acute UTI: Code(s): N39.0 - Urinary tract infection, site not specified Status: Acute Assessment and Plan: admission urinalysis highly suggestive complicated by indwelling catheter urine and blood cultures negative on 02/24 completed course of antibiotics (5) Hypercalcemia: Code(s): E83.52 - Hypercalcemia Status: Chronic Assessment and Plan: better currently somewhat chronic from review of records due to prolonged immobilization(?) evaluation to date: ionized calcium okay PTH mildly elevated Vitamin D (25-OH) okay serum/urine immunofixation negative s/p calcitonin may need bone scan at a later date adjusting calcium bath with dialysis (6) Benign essential hypertension: Code(s): I10 - Essential (primary) hypertension Status: Chronic Assessment and Plan: reasonable control follow trend of hemodynamics (7) Anemia: Code(s): D64.9 - Anemia, unspecified Status: Chronic Assessment and Plan: due to underlying CKD (with progression of ESRD) and acute illness Epogen with HD follow trend of H/H (8) DVT, bilateral lower limbs: Code(s): I82.403 - Acute embolism and thrombosis of unspecified deep veins of lower extremity, bilateral Status: Acute Assessment and Plan: as noted by LE dopplers back on Eliquis (9) DM type 2 (diabetes mellitus, type 2): Onset Date: ~2018 Qualifiers: Diabetes mellitus complication status: without complication Diabetes mellitus buttermaker insulin use: without buttermaker use Qualified Code(s): E11.9 - Type 2 diabetes mellitus without complications Code(s): E11.9 - Type 2 diabetes mellitus without complications Status: Chronic Assessment and Plan: follow accu-cheks glycemic control per hospitalists Will continue to follow. Subjective Date/time seen: 03/12/24 09:45 Interval history: Follow-up for chronic kidney disease (wih progression to ESRD on hemodialysis) Tolerating dialyis treatment at the time of my visit (seen on HD at 9:35AM); somewhat upset that she is still in the hospital as she wants to go home; no apparent distress noted; no issues overnight or earlier this morning. Exam Narrativ
--- NOTE | 2024-03-12 11:49 | PCNFU ---
Nutrition Follow-Up Complete: Inadequate oral intake related to loss of appetite as evidenced by refusal of meals, low intakes Goal:Adequate PO intake at least 50% meals and supplements Pt is progressing towards goal. Continue with same goal. Pt current nutrition is Pureed level 4, Diabetic consistent care, mildly thick liquids level 2. Glucerna shakes BID Nutrition recommendation: Change diet supplement to Nepro Last recorded weight is 89.7 kg. Bowel Motility: +BM 03/11 Labs Reviewed: Hgb:9.4, HCT:31, NA:136, GFR:7, BUN:60, Cr:5.8, Phos: 6.9 Meds Noted: Eliquis, novolog, lantus Skin: WNL Additional Notes: Pt diet advanced to Pureed level 4, level 2 mildly thick liquids. Intake varied ranging from 10-75% of meals. Noted elevated renal labs, including phosphorus. Recommend to change to Nepro shakes for supplement. Monitoring intakes, weights, labs, supplement tolerance, plan of care Follow up in 5 days.
[2024-03-12] MEDS: polyethylene glycoL 3350 17 GM POWD.PACK PO (12:56)
[2024-03-12] MEDS: CHOLECALCIFEROL 1,000 UNITS TABLET 2000 UNITS PO (12:56)
[2024-03-12] MEDS: CYANOCOBALAMIN 1,000 MCG TABLET 1000 MCG PO (12:59)
[2024-03-12] MEDS: methylPHENIDATE HCL (*CRX) 10 MG TABLET PO (12:59)
[2024-03-12] MEDS: ROSUVASTATIN 10 MG TABLET PO (12:59)
[2024-03-12] MEDS: APIXABAN 5 MG TABLET PO ×2 (12:59→20:40)
[2024-03-12 13:11] LABS: Glucose Point of Care 115 mg/dl (65-105)
[2024-03-12] MEDS: ONDANSETRON HCL ODT 4 MG TABLET PO (15:29)
--- NOTE | 2024-03-12 17:45 | PM.IMPN ---
Progress Note: A&P Assessment and Plan (1) Altered mental status: Code(s): R41.82 - Altered mental status, unspecified Status: Acute Assessment and Plan: Likely toxic metabolic encephalopathy. -Ammonia and TSH normal -Head CT was negative -Possible UTI with suggestive UA. However 02/24 urine culture negative. Patient has chronic indwelling Braswell and has history of UTIs. -S/p full course of meropenem. Vancomycin DC'd on 02/28 -Her WBC and procalcitonin level was normal -02/24 Blood culture with no growth to date -Prior to intubation patient was moving all 4 extremities. A CVA cannot be ruled out at this time unable to perform MRI on him patient on mechanical ventilator and [facility].? It will not manager of change at this time patient does move all extremities -Patient has a-fib, ECHO results below - 03/03 resumed home dose of methylphenidate -Pt has h/o dementia Continue Abilifjarrett Seroquel (2) Acute respiratory failure: Code(s): J96.00 - Acute respiratory failure, unspecified whether with hypoxia or hypercapnia Status: Acute Assessment and Plan: Multifactorial Acute Respiratory failure secondary to pulmonary edema, encephalopathy 02/26: Patient intubated 03/04: Self extubated -she has been since weaned to room air. Completed course of meropenem (3) Chronic kidney disease (CKD), stage V: Code(s): N18.5 - Chronic kidney disease, stage 5 Status: Chronic Assessment and Plan: Patient with diabetes, hypertension, vascular disease, recurrent nephrolithiasis + UTIs and what essentially appears to be only one kidney providing functionality based on previous imaging. Creatinine has been running in the 3.2 - 3.6mg/dl range in the last 6 months -Some concern for uremic symptoms recently -Nephrology following -Dialysis catheter inserted 02/28/24 and patient started on hemodialysis -dialysis per Nephrology (4) DM type 2 (diabetes mellitus, type 2): Onset Date: ~2018 Qualifiers: Diabetes mellitus crossbar switch adjuster insulin use: without crossbar switch adjuster use Diabetes mellitus complication status: without complication Qualified Code(s): E11.9 - Type 2 diabetes mellitus without complications Code(s): E11.9 - Type 2 diabetes mellitus without complications Status: Chronic Assessment and Plan: Continue Accu-Cheks sent sliding scale Holding Lantus due to low blood sugars (5) A-fib: Qualifiers: Atrial fibrillation type: unspecified Qualified Code(s): I48.91 - Unspecified atrial fibrillation Code(s): I48.91 - Unspecified atrial fibrillation Status: Acute Assessment and Plan: Patient with hx of afib. Was on Eliquis prior to admission, however Eliquis was held for invasive procedure 02/28 Eliquis resumed ECHO Summary ? 1. Technically difficult study. ? 2. Left ventricular chamber dimension is normal. ? 3. Left ventricular systolic function is lower limits of normal, estimated at 50-55%. ? 4. There is mildly increased left ventricular wall thickness. ? 5. Right ventricular systolic function is normal. ? 6. Left atrial chamber dimension is severely enlarged. ? 7. Right atrial chamber dimension is mildly enlarged. ? 8. There is mild aortic valve regurgitation. ? 9. There is mild mitral valve regurgitation. ? 10. There is mild to moderate tricuspid valve regurgitation. ? 11. Pericardial effusion is present. Pericardial effusion is trivial in size anteriorly, and is small in size posteriorly. ? 12. Left pleural effusion present. (6) Acute UTI: Code(s): N39.0 - Urinary tract infection, site not specified Status: Acute Assessment and Plan: Patient has chronic indwelling Braswell and has history of UTIs Her WBC and procalcitonin level was normal Cultures have been negative She has completed course of meropenem (7) Chronic indwelling Braswell catheter: Code(s): Z97.8 - Presence of other specified devices Status: Acut
[2024-03-12] MEDS: ACETAMINOPHEN 325 MG TABLET 650 MG PO (18:03)
[2024-03-12] MEDS: QUEtiapine FUMARATE 25 MG TABLET 50 MG PO (20:40)
[2024-03-12] MEDS: ARIPiprazole 2 MG TABLET PO (20:40)
[2024-03-12] MEDS: METOPROLOL TARTRATE 25 MG TABLET PO (20:40)
[2024-03-12 21:00] LABS: Glucose Point of Care 165 mg/dl (65-105)
[2024-03-13] VITALS: BP 132/66; PULSE 106; RESP 17; TEMP 36.6; O2SAT 99
[2024-03-13 06:42] LABS: Basophils Percent Auto 0.5 % (0.2-1.2); Eosinophils Percent Auto 0.7 % (0-4.4); Hematocrit 32.2 % (37.0-47.0); Hemoglobin 9.5 g/dL (12.0-15.0); Immature Granulocyte Absolute 0.01 K/mm3 (0.00-0.031); Immature Granulocyte Percent A 0.2 % (0-0.5); Immature Platelet Fraction Pct 7.6 % (0.9-11.2); Lymphocytes Absolute Auto 1.54 K/mm3 (0.9-3.2); Lymphocytes Percent Auto 27.4 % (18.3-44.2); Mean Corpuscular HGB Conc 29.5 g/dl (32-36); Mean Corpuscular Hemoglobin 27.9 pg (26-34); Mean Corpuscular Volume 94.4 fl (80-100); Mean Platelet Volume 12.4 fl (7.4-10.4); Monocytes Absolute Auto 0.6 K/mm3 (0.1-0.6); Monocytes Percent Auto 11.2 % (2.6-8.5); Neutrophils Absolute Auto 3.4 K/mm3 (1.3-6.7); Platelet Count Result 77 k/mm3 (150-375); Red Blood Count 3.41 M/mm3 (4.2-5.4); Red Cell Distribution Width 14.6 % (11.5-14.5); White Blood Count 5.6 K/mm3 (4.5-10.0)
[2024-03-13 07:01] LABS: Anion Gap 10 mmol/L (4-12); Blood Urea Nitrogen 27 mg/dL (7-17); Calcium 10.7 mg/dL (8.4-10.2); Carbon Dioxide 23 mmol/L (22-30); Chloride 104 mmol/L (98-107); Estimated CRCL calculation 15 ml/min; Estimated Glomerular Filt Rate 13; Glucose 143 mg/dL (65-110); Magnesium 2.2 mg/dL (1.6-2.3); Sodium 137 mmol/L (137-145)
[2024-03-13 07:36] LABS: Glucose Point of Care 132 mg/dl (65-105)
[2024-03-13 09:30] VITALS: PULSE 98
[2024-03-13] MEDS: APIXABAN 5 MG TABLET PO ×2 (09:30→20:50)
[2024-03-13] MEDS: CHOLECALCIFEROL 1,000 UNITS TABLET 2000 UNITS PO (09:30)
[2024-03-13] MEDS: METOPROLOL TARTRATE 25 MG TABLET PO ×2 (09:30→20:50)
[2024-03-13] MEDS: ROSUVASTATIN 10 MG TABLET PO (09:30)
[2024-03-13] MEDS: polyethylene glycoL 3350 17 GM POWD.PACK PO (09:30)
[2024-03-13] MEDS: CYANOCOBALAMIN 1,000 MCG TABLET 1000 MCG PO (09:33)
[2024-03-13] MEDS: methylPHENIDATE HCL (*CRX) 10 MG TABLET PO (09:33)
[2024-03-13] MEDS: ACETAMINOPHEN 325 MG TABLET 650 MG PO ×2 (09:47→18:01)
[2024-03-13 11:20] LABS: Glucose Point of Care 196 mg/dl (65-105)
--- NOTE | 2024-03-13 11:21 | P.PNNP_ITS ---
Progress Note: A&P Assessment and Plan (1) ESRD (end stage renal disease): Code(s): N18.6 - End stage renal disease Status: Chronic Assessment and Plan: * creatinine has been running in the 3.2 - 3.6mg/dl range in the last 6 months * slow and ongoing progression of kidney disease over the last 2 years with recent deterioration noted in September 2023 * some concerns regarding possible uremic symptoms (poor oral intake, decreased energy level/increased fatigue, confusion,...etc) recently * due to her diabetes, hypertension, vascular disease, recurrent nephrolithiasis + UTIs and what essentially appears to be only one kidney providing functionality based on previous imaging * renal scan in 10/25/14 with poor right kidney function which is 16% of total renal function * s/p tunneled HD catheter placement (on 02/28/24) * HD tomorrow and continue M/W/F schedule for now... * outpatient dialysis being arranged/finalized (2) Acute respiratory failure: Code(s): J96.00 - Acute respiratory failure, unspecified whether with hypoxia or hypercapnia Status: Acute Assessment and Plan: * clinically better if not resolved * felt to be secondary to pulmonary edema/volume overload and encephalopathy * intubated on the evening of 02/26 * self extubated on evening of 03/04 * fluid removal as tolerated with HD/DUF * monitor respiratory status (3) Altered mental status: Code(s): R41.82 - Altered mental status, unspecified Status: Acute Assessment and Plan: * clinically better * as noted on admission and at nursing facility * presumably multifactorial: infections, medicines, hypercalcemia, and uremia. * follow mentation (4) Acute UTI: Code(s): N39.0 - Urinary tract infection, site not specified Status: Acute Assessment and Plan: * admission urinalysis highly suggestive * complicated by indwelling catheter * urine and blood cultures negative on 02/24 * repeat urine culture done 03/11 - pending * completed course of antibiotics (5) Hypercalcemia: Code(s): E83.52 - Hypercalcemia Status: Chronic Assessment and Plan: * better currently * somewhat chronic from review of records * due to prolonged immobilization(?) * evaluation to date: * ionized calcium okay * PTH mildly elevated * Vitamin D (25-OH) okay * serum/urine immunofixation negative * s/p calcitonin * may need bone scan at a later time for further evaluation * adjusting calcium bath with dialysis (6) Benign essential hypertension: Code(s): I10 - Essential (primary) hypertension Status: Chronic Assessment and Plan: * reasonable control * follow trend of hemodynamics (7) Anemia: Code(s): D64.9 - Anemia, unspecified Status: Chronic Assessment and Plan: * due to underlying CKD (with progression of ESRD) and acute illness * Epogen with HD * follow trend of H/H (8) DVT, bilateral lower limbs: Code(s): I82.403 - Acute embolism and thrombosis of unspecified deep veins of lower extremity, bilateral Status: Acute Assessment and Plan: * as noted by LE dopplers * back on [facility] (9) DM type 2 (diabetes mellitus, type 2): Onset Date: ~2018 Qualifiers: Diabetes mellitus complication status: without complication Diabetes mellitus nursing program coordinator insulin use: without nursing program coordinator use Qualified Code(s): E11.9 - Type 2 diabetes mellitus without complications Code(s): E11.9 - Type 2 diabe
--- NOTE | 2024-03-13 11:21 | PM.PNNEP ---
Progress Note: A&P Assessment and Plan (1) ESRD (end stage renal disease): Code(s): N18.6 - End stage renal disease Status: Chronic Assessment and Plan: creatinine has been running in the 3.2 - 3.6mg/dl range in the last 6 months slow and ongoing progression of kidney disease over the last 2 years with recent deterioration noted in September 2023 some concerns regarding possible uremic symptoms (poor oral intake, decreased energy level/increased fatigue, confusion,...etc) recently due to her diabetes, hypertension, vascular disease, recurrent nephrolithiasis + UTIs and what essentially appears to be only one kidney providing functionality based on previous imaging renal scan in 10/25/14 with poor right kidney function which is 16% of total renal function s/p tunneled HD catheter placement (on 02/28/24) HD tomorrow and continue M/W/F schedule for now... outpatient dialysis being arranged/finalized (2) Acute respiratory failure: Code(s): J96.00 - Acute respiratory failure, unspecified whether with hypoxia or hypercapnia Status: Acute Assessment and Plan: clinically better if not resolved felt to be secondary to pulmonary edema/volume overload and encephalopathy intubated on the evening of 02/26 self extubated on evening of 03/04 fluid removal as tolerated with HD/DUF monitor respiratory status (3) Altered mental status: Code(s): R41.82 - Altered mental status, unspecified Status: Acute Assessment and Plan: clinically better as noted on admission and at nursing facility presumably multifactorial: infections, medicines, hypercalcemia, and uremia. follow mentation (4) Acute UTI: Code(s): N39.0 - Urinary tract infection, site not specified Status: Acute Assessment and Plan: admission urinalysis highly suggestive complicated by indwelling catheter urine and blood cultures negative on 02/24 repeat urine culture done 03/11 - pending completed course of antibiotics (5) Hypercalcemia: Code(s): E83.52 - Hypercalcemia Status: Chronic Assessment and Plan: better currently somewhat chronic from review of records due to prolonged immobilization(?) evaluation to date: ionized calcium okay PTH mildly elevated Vitamin D (25-OH) okay serum/urine immunofixation negative s/p calcitonin may need bone scan at a later time for further evaluation adjusting calcium bath with dialysis (6) Benign essential hypertension: Code(s): I10 - Essential (primary) hypertension Status: Chronic Assessment and Plan: reasonable control follow trend of hemodynamics (7) Anemia: Code(s): D64.9 - Anemia, unspecified Status: Chronic Assessment and Plan: due to underlying CKD (with progression of ESRD) and acute illness Epogen with HD follow trend of H/H (8) DVT, bilateral lower limbs: Code(s): I82.403 - Acute embolism and thrombosis of unspecified deep veins of lower extremity, bilateral Status: Acute Assessment and Plan: as noted by LE dopplers back on [facility] (9) DM type 2 (diabetes mellitus, type 2): Onset Date: ~2018 Qualifiers: Diabetes mellitus complication status: without complication Diabetes mellitus long chain quiller tender insulin use: without custodial use Qualified Code(s): E11.9 - Type 2 diabetes mellitus without complications Code(s): E11.9 - Type 2 diabetes mellitus without complications Status: Chronic Assessment and Plan: follow accu-cheks glycemic control per hospitalists Will continue to follow. Subjective Date/time seen: 03/13/24 11:21 Interval history: Follow-up for chronic kidney disease (wih progression to ESRD on hemodialysis) Tolerated dialysis treatment yesterday without any issues or problems; mentation seems better in general but upset/angry that she is still in the hospital; no apparent d
[2024-03-13 16:00] VITALS: BP 140/62; PULSE 92; RESP 16; TEMP 36.7; O2SAT 100
[2024-03-13 16:59] LABS: Glucose Point of Care 249 mg/dl (65-105)
--- NOTE | 2024-03-13 17:44 | PM.IMPN ---
Progress Note: A&P Assessment and Plan (1) Altered mental status: Code(s): R41.82 - Altered mental status, unspecified Status: Acute Assessment and Plan: Likely toxic metabolic encephalopathy. -Ammonia and TSH normal -Head CT was negative -Possible UTI with suggestive UA. However 02/24 urine culture negative. Patient has chronic indwelling Braswell and has history of UTIs. -S/p full course of meropenem. Vancomycin DC'd on 02/28 -Her WBC and procalcitonin level was normal -02/24 Blood culture with no growth to date -Pt has h/o dementia. Further discussions held with the daughter and over the course of this admission the patient has become more alert. She also moves all 4 extremities. Daughter reports prior to this admission the patient did have dementia and was confused. -the patient tends to respond differently to different staff members. Some time she is cantankerous in some time she is overly pleasant. (2) Acute respiratory failure: Code(s): J96.00 - Acute respiratory failure, unspecified whether with hypoxia or hypercapnia Status: Acute Assessment and Plan: Multifactorial Acute Respiratory failure secondary to pulmonary edema, encephalopathy 02/26: Patient intubated 03/04: Self extubated -she has been since weaned to room air. Completed course of meropenem (3) Chronic kidney disease (CKD), stage V: Code(s): N18.5 - Chronic kidney disease, stage 5 Status: Chronic Assessment and Plan: Patient with diabetes, hypertension, vascular disease, recurrent nephrolithiasis + UTIs and what essentially appears to be only one kidney providing functionality based on previous imaging. Creatinine has been running in the 3.2 - 3.6mg/dl range in the last 6 months -Some concern for uremic symptoms recently -Nephrology following -Dialysis catheter inserted 02/28/24 and patient started on hemodialysis -dialysis per Nephrology. Outpatient dialysis is being set up (4) DM type 2 (diabetes mellitus, type 2): Onset Date: ~2018 Qualifiers: Diabetes mellitus press tender long goods insulin use: without mcc use Diabetes mellitus complication status: without complication Qualified Code(s): E11.9 - Type 2 diabetes mellitus without complications Code(s): E11.9 - Type 2 diabetes mellitus without complications Status: Chronic Assessment and Plan: Continue Accu-Cheks sent sliding scale Holding Lantus due to low blood sugars. She is beginning to eat more. Restart if blood sugars are elevated consistently. (5) A-fib: Qualifiers: Atrial fibrillation type: unspecified Qualified Code(s): I48.91 - Unspecified atrial fibrillation Code(s): I48.91 - Unspecified atrial fibrillation Status: Acute Assessment and Plan: Patient with hx of afib. Was on Eliquis prior to admission, however Eliquis was held for invasive procedure 02/28 Eliquis resumed ECHO Summary ? 1. Technically difficult study. ? 2. Left ventricular chamber dimension is normal. ? 3. Left ventricular systolic function is lower limits of normal, estimated at 50-55%. ? 4. There is mildly increased left ventricular wall thickness. ? 5. Right ventricular systolic function is normal. ? 6. Left atrial chamber dimension is severely enlarged. ? 7. Right atrial chamber dimension is mildly enlarged. ? 8. There is mild aortic valve regurgitation. ? 9. There is mild mitral valve regurgitation. ? 10. There is mild to moderate tricuspid valve regurgitation. ? 11. Pericardial effusion is present. Pericardial effusion is trivial in size anteriorly, and is small in size posteriorly. ? 12. Left pleural effusion present. (6) Acute UTI: Code(s): N39.0 - Urinary tract infection, site not specified Status: Acute Assessment and Plan: Patient has chronic indwelling Braswell and has history of UTIs Her WBC and procalcitonin level was normal Cultures have been negative She has completed course of meropenem -
[2024-03-13] MEDS: INSULIN ASPART (*BKC) 100 UNITS/ML SUB-Q (18:03)
[2024-03-13] MEDS: QUEtiapine FUMARATE 25 MG TABLET 50 MG PO (20:49)
[2024-03-13 20:50] VITALS: PULSE 88
[2024-03-13] MEDS: ARIPiprazole 2 MG TABLET PO (20:50)
[2024-03-13 20:54] VITALS: RESP 16; O2SAT 100
[2024-03-13 20:58] LABS: Glucose Point of Care 193 mg/dl (65-105)
[2024-03-14] VITALS (24 sets, daily range): BP systolic 81–153; BP diastolic 56–109; PULSE 63–112; RESP 12–32; TEMP 23.3–37; O2SAT 97–100
[2024-03-14 07:43] LABS: Glucose Point of Care 151 mg/dl (65-105)
[2024-03-14 08:39] LABS: Basophils Percent Auto 0.6 % (0.2-1.2); Eosinophils Absolute Auto 0.1 K/mm3 (0-0.3); Eosinophils Percent Auto 1.1 % (0-4.4); Hematocrit 31.9 % (37.0-47.0); Hemoglobin 9.6 g/dL (12.0-15.0); Immature Granulocyte Absolute 0.01 K/mm3 (0.00-0.031); Immature Granulocyte Percent A 0.2 % (0-0.5); Lymphocytes Absolute Auto 1.69 K/mm3 (0.9-3.2); Lymphocytes Percent Auto 31.3 % (18.3-44.2); Mean Corpuscular HGB Conc 30.1 g/dl (32-36); Mean Platelet Volume 11.7 fl (7.4-10.4); Monocytes Absolute Auto 0.5 K/mm3 (0.1-0.6); Monocytes Percent Auto 9.3 % (2.6-8.5); Neutrophils Absolute Auto 3.1 K/mm3 (1.3-6.7); Neutrophils Percent Auto 57.5 % (45.5-73.1); Platelet Count Result 117 k/mm3 (150-375); Red Blood Count 3.43 M/mm3 (4.2-5.4); Red Cell Distribution Width 14.6 % (11.5-14.5); White Blood Count 5.4 K/mm3 (4.5-10.0)
[2024-03-14] MEDS: CHOLECALCIFEROL 1,000 UNITS TABLET 2000 UNITS PO (08:46)
[2024-03-14] MEDS: polyethylene glycoL 3350 17 GM POWD.PACK PO (08:46)
[2024-03-14] MEDS: ROSUVASTATIN 10 MG TABLET PO (08:46)
[2024-03-14] MEDS: CYANOCOBALAMIN 1,000 MCG TABLET 1000 MCG PO (08:46)
[2024-03-14] MEDS: METOPROLOL TARTRATE 25 MG TABLET PO (08:47)
[2024-03-14] MEDS: ACETAMINOPHEN 325 MG TABLET 650 MG PO ×2 (08:47→21:55)
[2024-03-14 08:56] LABS: Alanine Aminotransferase 11 U/L (6-35); Albumin Level 3.8 g/dL (3.5-5.1); Alkaline Phosphatase 62 U/L (38-126); Anion Gap 9 mmol/L (4-12); Aspartate Amino Transferase 18 U/L (14-36); Blood Urea Nitrogen 49 mg/dL (7-17); Calcium 11.1 mg/dL (8.4-10.2); Carbon Dioxide 25 mmol/L (22-30); Chloride 104 mmol/L (98-107); Estimated CRCL calculation 9 ml/min; Estimated Glomerular Filt Rate 8; Glucose 159 mg/dL (65-110); Magnesium 2.2 mg/dL (1.6-2.3); Phosphorus 6.8 mg/dL (2.5-4.5); Potassium 4.6 mmol/L (3.4-5.0); Sodium 138 mmol/L (137-145)
[2024-03-14] MEDS: methylPHENIDATE HCL (*CRX) 10 MG TABLET PO ×2 (08:59→13:00)
[2024-03-14] MEDS: EPOETIN ALFA-EPBX 10,000 UNITS/ML VIAL 10000 UNITS IV PUSH (10:58)
[2024-03-14] MEDS: ONDANSETRON HCL ODT 4 MG TABLET PO (11:26)
[2024-03-14] MEDS: ALBUMIN HUMAN 25% 12.5 GM/50ML 50 ML IVPB (11:39)
[2024-03-14] MEDS: HEPARIN SODIUM 1,000 UNITS/ML VIAL 1000 UNITS IV PUSH (11:50)
--- NOTE | 2024-03-14 12:31 | P.PNNP_ITS ---
Progress Note: A&P Assessment and Plan (1) ESRD (end stage renal disease): Code(s): N18.6 - End stage renal disease Status: Chronic Assessment and Plan: * creatinine has been running in the 3.2 - 3.6mg/dl range in the last 6 months * slow and ongoing progression of kidney disease over the last 2 years with recent deterioration noted in September 2023 * some concerns regarding possible uremic symptoms (poor oral intake, decreased energy level/increased fatigue, confusion,...etc) recently * due to her diabetes, hypertension, vascular disease, recurrent nephrolithiasis + UTIs and what essentially appears to be only one kidney providing functionality based on previous imaging * renal scan in 10/25/14 with poor right kidney function which is 16% of total renal function * s/p tunneled HD catheter placement (on 02/28/24) * HD tomorrow and continue M/W/F schedule for now... * outpatient dialysis being arranged/finalized (2) Acute respiratory failure: Code(s): J96.00 - Acute respiratory failure, unspecified whether with hypoxia or hypercapnia Status: Acute Assessment and Plan: * clinically better if not resolved * felt to be secondary to pulmonary edema/volume overload and encephalopathy * intubated on the evening of 02/26 * self extubated on evening of 03/04 * fluid removal as tolerated with HD/DUF * monitor respiratory status (3) Altered mental status: Code(s): R41.82 - Altered mental status, unspecified Status: Acute Assessment and Plan: * clinically better * as noted on admission and at nursing facility * presumably multifactorial: infections, medicines, hypercalcemia, and uremia. * follow mentation (4) Acute UTI: Code(s): N39.0 - Urinary tract infection, site not specified Status: Acute Assessment and Plan: * admission urinalysis highly suggestive * complicated by indwelling catheter * urine and blood cultures negative on 02/24 - completed course of antibiotics * repeat urine culture done 03/11 - culture with Proteus and GNB * resumed on antibiotics (5) Hypercalcemia: Code(s): E83.52 - Hypercalcemia Status: Chronic Assessment and Plan: * better currently * somewhat chronic from review of records * due to prolonged immobilization(?) * evaluation to date: * ionized calcium okay * PTH mildly elevated * Vitamin D (25-OH) okay * serum/urine immunofixation negative * s/p calcitonin dosing * may need bone scan at a later time for further evaluation * adjusting calcium bath with dialysis (6) Benign essential hypertension: Code(s): I10 - Essential (primary) hypertension Status: Chronic Assessment and Plan: * reasonable control * follow trend of hemodynamics (7) Anemia: Code(s): D64.9 - Anemia, unspecified Status: Chronic Assessment and Plan: * due to underlying CKD (with progression of ESRD) and acute illness * Epogen with HD * follow trend of H/H (8) DVT, bilateral lower limbs: Code(s): I82.403 - Acute embolism and thrombosis of unspecified deep veins of lower extremity, bilateral Status: Acute Assessment and Plan: * as noted by LE dopplerarabella * [facility] ([facility] DM type 2 (diabetes mellitus, type 2): Onset Date: ~2018 Qualifiers: Diabetes mellitus terminal manager insulin use: without care home use Diabetes mellitus complication status: without complication Qualified Code(s): E11.9 - Type 2 diabetes mellitus without complica
--- NOTE | 2024-03-14 12:31 | PM.PNNEP ---
Progress Note: A&P Assessment and Plan (1) ESRD (end stage renal disease): Code(s): N18.6 - End stage renal disease Status: Chronic Assessment and Plan: creatinine has been running in the 3.2 - 3.6mg/dl range in the last 6 months slow and ongoing progression of kidney disease over the last 2 years with recent deterioration noted in September 2023 some concerns regarding possible uremic symptoms (poor oral intake, decreased energy level/increased fatigue, confusion,...etc) recently due to her diabetes, hypertension, vascular disease, recurrent nephrolithiasis + UTIs and what essentially appears to be only one kidney providing functionality based on previous imaging renal scan in 10/25/14 with poor right kidney function which is 16% of total renal function s/p tunneled HD catheter placement (on 02/28/24) HD tomorrow and continue M/W/F schedule for now... outpatient dialysis being arranged/finalized (2) Acute respiratory failure: Code(s): J96.00 - Acute respiratory failure, unspecified whether with hypoxia or hypercapnia Status: Acute Assessment and Plan: clinically better if not resolved felt to be secondary to pulmonary edema/volume overload and encephalopathy intubated on the evening of 02/26 self extubated on evening of 03/04 fluid removal as tolerated with HD/DUF monitor respiratory status (3) Altered mental status: Code(s): R41.82 - Altered mental status, unspecified Status: Acute Assessment and Plan: clinically better as noted on admission and at nursing facility presumably multifactorial: infections, medicines, hypercalcemia, and uremia. follow mentation (4) Acute UTI: Code(s): N39.0 - Urinary tract infection, site not specified Status: Acute Assessment and Plan: admission urinalysis highly suggestive complicated by indwelling catheter urine and blood cultures negative on 02/24 - completed course of antibiotics repeat urine culture done 03/11 - culture with Proteus and GNB resumed on antibiotics (5) Hypercalcemia: Code(s): E83.52 - Hypercalcemia Status: Chronic Assessment and Plan: better currently somewhat chronic from review of records due to prolonged immobilization(?) evaluation to date: ionized calcium okay PTH mildly elevated Vitamin D (25-OH) okay serum/urine immunofixation negative s/p calcitonin dosing may need bone scan at a later time for further evaluation adjusting calcium bath with dialysis (6) Benign essential hypertension: Code(s): I10 - Essential (primary) hypertension Status: Chronic Assessment and Plan: reasonable control follow trend of hemodynamics (7) Anemia: Code(s): D64.9 - Anemia, unspecified Status: Chronic Assessment and Plan: due to underlying CKD (with progression of ESRD) and acute illness Epogen with HD follow trend of H/H (8) DVT, bilateral lower limbs: Code(s): I82.403 - Acute embolism and thrombosis of unspecified deep veins of lower extremity, bilateral Status: Acute Assessment and Plan: as noted by LE dopplers back on Eliquis (9) DM type 2 (diabetes mellitus, type 2): Onset Date: ~2018 Qualifiers: Diabetes mellitus terminal operator insulin use: without prison use Diabetes mellitus complication status: without complication Qualified Code(s): E11.9 - Type 2 diabetes mellitus without complications Code(s): E11.9 - Type 2 diabetes mellitus without complications Status: Chronic Assessment and Plan: follow accu-cheks glycemic control per hospitalists Will continue to follow. Subjective Date/time seen: 03/14/24 12:31 Interval history: Follow-up for chronic kidney disease (wih progression to ESRD on hemodialysis) Tolerating dialysis at the time of my visit (seen on HD at 12:20PM); mentation continues to fluctuate -- seemed more
[2024-03-14 13:47] LABS: Glucose Point of Care 127 mg/dl (65-105)
--- NOTE | 2024-03-14 14:33 | PM.IMPN ---
Progress Note: A&P Assessment and Plan (1) Altered mental status: Code(s): R41.82 - Altered mental status, unspecified Status: Acute Assessment and Plan: Likely toxic metabolic encephalopathy with underlying dementia. -Ammonia and TSH normal -Head CT was negative -Possible UTI with suggestive UA. However 02/24 urine culture negative. Patient has chronic indwelling Braswell and has history of UTIs. -S/p full course of meropenem. Vancomycin DC'd on 02/28 -Her WBC and procalcitonin level was normal -02/24 Blood culture with no growth to date -Pt has h/o dementia. Further discussions held with the daughter and over the course of this admission the patient has become more alert. Daughter reports prior to this admission the patient did have dementia and was confused. She is on Seroquel and Abilify. Will advance Abilify and wean off Seroquel. (2) Acute UTI: Code(s): N39.0 - Urinary tract infection, site not specified Status: Acute Assessment and Plan: Patient has chronic indwelling Braswell and has history of UTIs Her WBC and procalcitonin level was normal Cultures have been negative She has completed course of meropenem -of note, on 03/11 the daughter requested a urine culture since it looked abnormal to her. UCx growing proteus and GNB but no colony count or susceptibilites. Rocephin and follow up on culture results (3) Acute respiratory failure: Code(s): J96.00 - Acute respiratory failure, unspecified whether with hypoxia or hypercapnia Status: Acute Assessment and Plan: Multifactorial Acute Respiratory failure secondary to pulmonary edema, encephalopathy 02/26: Patient intubated 03/04: Self extubated -she has been since weaned to room air. Completed course of meropenem (4) Chronic kidney disease (CKD), stage V: Code(s): N18.5 - Chronic kidney disease, stage 5 Status: Chronic Assessment and Plan: Patient with diabetes, hypertension, vascular disease, recurrent nephrolithiasis + UTIs and what essentially appears to be only one kidney providing functionality based on previous imaging. Creatinine has been running in the 3.2 - 3.6mg/dl range in the last 6 months -Some concern for uremic symptoms recently -Nephrology following -Dialysis catheter inserted 02/28/24 and patient started on hemodialysis -dialysis per Nephrology. Outpatient dialysis is being set up and she can be discharged on Tuesday after HD (5) DM type 2 (diabetes mellitus, type 2): Onset Date: ~2018 Qualifiers: Diabetes mellitus complication status: without complication Diabetes mellitus longterm insulin use: without long wall shear operator use Qualified Code(s): E11.9 - Type 2 diabetes mellitus without complications Code(s): E11.9 - Type 2 diabetes mellitus without complications Status: Chronic Assessment and Plan: The patient's blood glucose was reviewed on 03/14 Glucose remains well controlled. Continue AccuCheks covering with sliding scale. Hypoglycemia protocol available as needed. Continue to follow (6) A-fib: Qualifiers: Atrial fibrillation type: unspecified Qualified Code(s): I48.91 - Unspecified atrial fibrillation Code(s): I48.91 - Unspecified atrial fibrillation Status: Acute Assessment and Plan: Patient with hx of afib. Was on Eliquis prior to admission, however Eliquis was held for invasive procedure 02/28 Eliquis resumed ECHO Summary ? 1. Technically difficult study. ? 2. Left ventricular chamber dimension is normal. ? 3. Left ventricular systolic function is lower limits of normal, estimated at 50-55%. ? 4. There is mildly increased left ventricular wall thickness. ? 5. Right ventricular systolic function is normal. ? 6. Left atrial chamber dimension is severely enlarged. ? 7. Right atrial chamber dimension is mildly enlarged. ? 8. There is mild aortic valve regurgitation. ? 9. There is mild mitral valve regurgitation.
[2024-03-14 16:33] LABS: Glucose Point of Care 180 mg/dl (65-105)
[2024-03-14 19:29] LABS: Platelet Antibody, Direct NEGATIVE (NEGATIVE)
[2024-03-14 20:21] LABS: Glucose Point of Care 222 mg/dl (65-105)
[2024-03-14] MEDS: QUEtiapine FUMARATE 25 MG TABLET PO (20:57)
[2024-03-14] MEDS: cefTRIAXone 2 GM/NS 100 ML 2 GM/100 ML BAG IVPB (21:55)
[2024-03-15 06:00] VITALS: BP 128/88; PULSE 104; RESP 12; TEMP 36.4; O2SAT 98
[2024-03-15 06:14] LABS: Basophils Percent Auto 0.7 % (0.2-1.2); Eosinophils Absolute Auto 0.1 K/mm3 (0-0.3); Eosinophils Percent Auto 0.9 % (0-4.4); Hematocrit 32.1 % (37.0-47.0); Hemoglobin 9.4 g/dL (12.0-15.0); Immature Granulocyte Absolute 0.01 K/mm3 (0.00-0.031); Immature Granulocyte Percent A 0.2 % (0-0.5); Lymphocytes Absolute Auto 2.14 K/mm3 (0.9-3.2); Lymphocytes Percent Auto 38.6 % (18.3-44.2); Mean Corpuscular HGB Conc 29.3 g/dl (32-36); Mean Corpuscular Volume 95.5 fl (80-100); Mean Platelet Volume 12.3 fl (7.4-10.4); Monocytes Absolute Auto 0.6 K/mm3 (0.1-0.6); Monocytes Percent Auto 10.8 % (2.6-8.5); Neutrophils Absolute Auto 2.7 K/mm3 (1.3-6.7); Neutrophils Percent Auto 48.8 % (45.5-73.1); Platelet Count Result 100 k/mm3 (150-375); Red Blood Count 3.36 M/mm3 (4.2-5.4); Red Cell Distribution Width 14.5 % (11.5-14.5); White Blood Count 5.6 K/mm3 (4.5-10.0)
[2024-03-15 06:28] LABS: Alanine Aminotransferase 10 U/L (6-35); Albumin Level 3.8 g/dL (3.5-5.1); Alkaline Phosphatase 62 U/L (38-126); Anion Gap 7 mmol/L (4-12); Aspartate Amino Transferase 19 U/L (14-36); Bilirubin,Total 0.9 mg/dL (0.2-1.3); Blood Urea Nitrogen 28 mg/dL (7-17); Calcium 10.3 mg/dL (8.4-10.2); Carbon Dioxide 29 mmol/L (22-30); Chloride 103 mmol/L (98-107); Estimated CRCL calculation 15 ml/min; Estimated Glomerular Filt Rate 15; Glucose 156 mg/dL (65-110); Magnesium 2.1 mg/dL (1.6-2.3); Phosphorus 4.1 mg/dL (2.5-4.5); Potassium 4.3 mmol/L (3.4-5.0); Sodium 139 mmol/L (137-145)
[2024-03-15 07:33] LABS: Hypochromasia 1+; Platelet Estimate Decreased (Adequate)
[2024-03-15 07:34] LABS: Schistocytes None Seen
[2024-03-15 07:48] LABS: Glucose Point of Care 160 mg/dl (65-105)
[2024-03-15 08:00] VITALS: PULSE 72; RESP 12; O2SAT 98
[2024-03-15] MEDS: ACETAMINOPHEN 325 MG TABLET 650 MG PO (08:37)
[2024-03-15 08:38] VITALS: PULSE 72
[2024-03-15] MEDS: ROSUVASTATIN 10 MG TABLET PO (08:38)
[2024-03-15] MEDS: METOPROLOL TARTRATE 25 MG TABLET PO ×2 (08:38→21:10)
[2024-03-15] MEDS: CYANOCOBALAMIN 1,000 MCG TABLET 1000 MCG PO (08:38)
[2024-03-15] MEDS: APIXABAN 5 MG TABLET PO ×2 (08:38→21:10)
[2024-03-15] MEDS: CHOLECALCIFEROL 1,000 UNITS TABLET 2000 UNITS PO (08:38)
[2024-03-15] MEDS: FERROUS SULFATE LIQUID 325 MG/7.4 ML ELIXIR FEED TUBE (08:39)
[2024-03-15] MEDS: polyethylene glycoL 3350 17 GM POWD.PACK PO (08:39)
[2024-03-15 11:13] LABS: Glucose Point of Care 180 mg/dl (65-105)
--- NOTE | 2024-03-15 12:44 | PCNFU ---
Nutrition Follow-Up Complete: Inadequate oral intake related to loss of appetite as evidenced by refusal of meals, low intakes Goal:Adequate PO intake at least 50% meals and supplements Pt is meeting goal, continue with current goal. Pt current nutrition is Diabetic consistent carb, pureed level 4, level 2 liquids, Glucerna shakes BID. Nutrition recommendation: continue with current plan of care. Last recorded weight is 83.5 kg. Bowel Motility: +BM 03/14 Labs Reviewed: Hgb:39.4, HCT:32.1, BUN:28, Cr:3 Meds Noted: eliquis, novolog, lantus Skin: WNL Additional Notes: Pt continues on a pureed diabetic diet, level 2 thick liquids, intake charted at 50-100%. Glucerna shakes BID in place. Agree with diet orders. Encourage good intake to continue. Monitoring intakes, weights, labs, supplement tolerance, plan of care Follow up in 7 days.
--- NOTE | 2024-03-15 13:48 | P.PNNP_ITS ---
Progress Note: A&P Assessment and Plan (1) ESRD (end stage renal disease): Code(s): N18.6 - End stage renal disease Status: Chronic Assessment and Plan: * creatinine has been running in the 3.2 - 3.6mg/dl range in the last 6 months * slow and ongoing progression of kidney disease over the last 2 years with recent deterioration noted in September 2023 * some concerns regarding possible uremic symptoms (poor oral intake, decreased energy level/increased fatigue, confusion,...etc) recently * due to her diabetes, hypertension, vascular disease, recurrent nephrolithiasis + UTIs and what essentially appears to be only one kidney providing functionality based on previous imaging * renal scan in 10/25/14 with poor right kidney function which is 16% of total renal function * s/p tunneled HD catheter placement (on 02/28/24) * HD tomorrow and continue M/W/F schedule for now... * outpatient dialysis being arranged/finalized (2) Acute respiratory failure: Code(s): J96.00 - Acute respiratory failure, unspecified whether with hypoxia or hypercapnia Status: Acute Assessment and Plan: * clinically better if not resolved * felt to be secondary to pulmonary edema/volume overload and encephalopathy * intubated on the evening of 02/26 * self extubated on evening of 03/04 * fluid removal as tolerated with HD/DUF * monitor respiratory status (3) Altered mental status: Code(s): R41.82 - Altered mental status, unspecified Status: Acute Assessment and Plan: * clinically better * as noted on admission and at nursing facility * presumably multifactorial: infections, medications, hypercalcemia, and uremia. * follow mentation (4) Acute UTI: Code(s): N39.0 - Urinary tract infection, site not specified Status: Acute Assessment and Plan: * admission urinalysis highly suggestive * complicated by indwelling catheter * urine and blood cultures negative on 02/24 - completed course of antibiotics * repeat urine culture done 03/11 - culture with Proteus and Pseudomonas * resumed on antibiotics (cefepine) (5) Hypercalcemia: Code(s): E83.52 - Hypercalcemia Status: Chronic Assessment and Plan: * better currently * somewhat chronic from review of records * due to prolonged immobilization(?) * evaluation to date: * ionized calcium okay * PTH mildly elevated * Vitamin D (25-OH) okay * serum/urine immunofixation negative * s/p calcitonin dosing * check bone scan * adjusting calcium bath with dialysis (6) Benign essential hypertension: Code(s): I10 - Essential (primary) hypertension Status: Chronic Assessment and Plan: * reasonable control * follow trend of hemodynamics (7) Anemia: Code(s): D64.9 - Anemia, unspecified Status: Chronic Assessment and Plan: * due to underlying CKD (with progression of ESRD) and acute illness * Epogen with HD * follow trend of H/H (8) DVT, bilateral lower limbs: Code(s): I82.403 - Acute embolism and thrombosis of unspecified deep veins of lower extremity, bilateral Status: Acute Assessment and Plan: * as noted by LE dopplerarabella * back on [facility] (9) DM type 2 (diabetes mellitus, type 2): Onset Date: ~2018 Qualifiers: Diabetes mellitus custodial insulin use: without long haul truck driver use Diabetes mellitus complication status: without complication Qualified Code(s): E11.9 - Type 2 diabetes mellitus without complications Code
--- NOTE | 2024-03-15 13:48 | PM.PNNEP ---
Progress Note: A&P Assessment and Plan (1) ESRD (end stage renal disease): Code(s): N18.6 - End stage renal disease Status: Chronic Assessment and Plan: creatinine has been running in the 3.2 - 3.6mg/dl range in the last 6 months slow and ongoing progression of kidney disease over the last 2 years with recent deterioration noted in September 2023 some concerns regarding possible uremic symptoms (poor oral intake, decreased energy level/increased fatigue, confusion,...etc) recently due to her diabetes, hypertension, vascular disease, recurrent nephrolithiasis + UTIs and what essentially appears to be only one kidney providing functionality based on previous imaging renal scan in 10/25/14 with poor right kidney function which is 16% of total renal function s/p tunneled HD catheter placement (on 02/28/24) HD tomorrow and continue M/W/F schedule for now... outpatient dialysis being arranged/finalized (2) Acute respiratory failure: Code(s): J96.00 - Acute respiratory failure, unspecified whether with hypoxia or hypercapnia Status: Acute Assessment and Plan: clinically better if not resolved felt to be secondary to pulmonary edema/volume overload and encephalopathy intubated on the evening of 02/26 self extubated on evening of 03/04 fluid removal as tolerated with HD/DUF monitor respiratory status (3) Altered mental status: Code(s): R41.82 - Altered mental status, unspecified Status: Acute Assessment and Plan: clinically better as noted on admission and at nursing facility presumably multifactorial: infections, medications, hypercalcemia, and uremia. follow mentation (4) Acute UTI: Code(s): N39.0 - Urinary tract infection, site not specified Status: Acute Assessment and Plan: admission urinalysis highly suggestive complicated by indwelling catheter urine and blood cultures negative on 02/24 - completed course of antibiotics repeat urine culture done 03/11 - culture with Proteus and Pseudomonas resumed on antibiotics (cefepine) (5) Hypercalcemia: Code(s): E83.52 - Hypercalcemia Status: Chronic Assessment and Plan: better currently somewhat chronic from review of records due to prolonged immobilization(?) evaluation to date: ionized calcium okay PTH mildly elevated Vitamin D (25-OH) okay serum/urine immunofixation negative s/p calcitonin dosing check bone scan adjusting calcium bath with dialysis (6) Benign essential hypertension: Code(s): I10 - Essential (primary) hypertension Status: Chronic Assessment and Plan: reasonable control follow trend of hemodynamics (7) Anemia: Code(s): D64.9 - Anemia, unspecified Status: Chronic Assessment and Plan: due to underlying CKD (with progression of ESRD) and acute illness Epogen with HD follow trend of H/H (8) DVT, bilateral lower limbs: Code(s): I82.403 - Acute embolism and thrombosis of unspecified deep veins of lower extremity, bilateral Status: Acute Assessment and Plan: as noted by LE dopplerarabella back on Eliis (9) DM type 2 (diabetes mellitus, type 2): Onset Date: ~2018 Qualifiers: Diabetes mellitus mcfp insulin use: without press tender long goods use Diabetes mellitus complication status: without complication Qualified Code(s): E11.9 - Type 2 diabetes mellitus without complications Code(s): E11.9 - Type 2 diabetes mellitus without complications Status: Chronic Assessment and Plan: follow accu-cheks glycemic control per hospitalists Will continue to follow. Subjective Date/time seen: 03/15/24 13:48 Interval history: Follow-up for chronic kidney disease (with progression to ESRD on hemodialysis) Tolerated dialysis treatment yesterday without any issues or problems (other that some agitation and disruptive behavior directed at dial
--- NOTE | 2024-03-15 14:13 | PM.IMPN ---
Progress Note: A&P Assessment and Plan (1) Altered mental status: Code(s): R41.82 - Altered mental status, unspecified Status: Acute Assessment and Plan: Likely toxic metabolic encephalopathy with underlying dementia. -Ammonia and TSH normal -Head CT was negative -Possible UTI with suggestive UA. However 02/24 urine culture negative. Patient has chronic indwelling Braswell and has history of UTIs. -S/p full course of meropenem. Vancomycin DC'd on 02/28 -Her WBC and procalcitonin level was normal -02/24 Blood culture negative -Pt has h/o dementia. Further discussions held with the daughter and over the course of this admission the patient has become more alert. Daughter reports prior to this admission the patient did have dementia and was confused. She is on Seroquel and Abilify. Will advance Abilify and wean off Seroquel. (2) Acute UTI: Code(s): N39.0 - Urinary tract infection, site not specified Status: Acute Assessment and Plan: Patient has chronic indwelling Braswell and has history of UTIs Her WBC and procalcitonin level was normal Cultures have been negative She has completed course of meropenem -of note, on 03/11 the daughter requested a urine culture since it looked abnormal to her. NO UA performed but UCx growing proteus and pseudomonas each with >100K colonies; susceptibilities noted. Change to Cefepime (3) Acute respiratory failure: Code(s): J96.00 - Acute respiratory failure, unspecified whether with hypoxia or hypercapnia Status: Acute Assessment and Plan: Multifactorial Acute Respiratory failure secondary to pulmonary edema, encephalopathy 02/26: Patient intubated 03/04: Self extubated -she has been since weaned to room air. Completed course of meropenem (4) Chronic kidney disease (CKD), stage V: Code(s): N18.5 - Chronic kidney disease, stage 5 Status: Chronic Assessment and Plan: Patient with diabetes, hypertension, vascular disease, recurrent nephrolithiasis + UTIs and what essentially appears to be only one kidney providing functionality based on previous imaging. Creatinine has been running in the 3.2 - 3.6mg/dl range in the last 6 months -Some concern for uremic symptoms recently -Nephrology following -Dialysis catheter inserted 02/28/24 and patient started on hemodialysis -dialysis per Nephrology. Outpatient dialysis is being set up and she can be discharged on TuesdayMarch 19 after HD (5) DM type 2 (diabetes mellitus, type 2): Onset Date: ~2018 Qualifiers: Diabetes mellitus complication status: without complication Diabetes mellitus termite renewal inspector insulin use: without termite renewal inspector use Qualified Code(s): E11.9 - Type 2 diabetes mellitus without complications Code(s): E11.9 - Type 2 diabetes mellitus without complications Status: Chronic Assessment and Plan: The patient's blood glucose was reviewed on 03/15 Glucose remains well controlled. Continue AccuCheks covering with sliding scale. Hypoglycemia protocol available as needed. Continue to follow (6) A-fib: Qualifiers: Atrial fibrillation type: unspecified Qualified Code(s): I48.91 - Unspecified atrial fibrillation Code(s): I48.91 - Unspecified atrial fibrillation Status: Acute Assessment and Plan: Patient with hx of afib. Was on Eliquis prior to admission, however Eliquis was held for invasive procedure 02/28 Eliquis resumed ECHO Summary ? 1. Technically difficult study. ? 2. Left ventricular chamber dimension is normal. ? 3. Left ventricular systolic function is lower limits of normal, estimated at 50-55%. ? 4. There is mildly increased left ventricular wall thickness. ? 5. Right ventricular systolic function is normal. ? 6. Left atrial chamber dimension is severely enlarged. ? 7. Right atrial chamber dimension is mildly enlarged. ? 8. There is mild aortic valve regurgitation. ? 9. There is mild mitral valve reg
[2024-03-15 14:14] VITALS: BP 134/81; PULSE 87; RESP 18; TEMP 36.4; O2SAT 94
[2024-03-15 16:39] LABS: Glucose Point of Care 178 mg/dl (65-105)
[2024-03-15] MEDS: CEFEPIME 1 GM/NS 50 ML 1 GM/50 ML BAG IVPB (18:25)
[2024-03-15 20:32] LABS: Glucose Point of Care 203 mg/dl (65-105)
[2024-03-15 20:57] VITALS: BP 173/86; PULSE 90; RESP 16; TEMP 36.2; O2SAT 100
[2024-03-15] MEDS: TOLNAFTATE 1% POWDER 45 GM BTL 1 APPLIC TOPICAL (21:10)
[2024-03-15] MEDS: QUEtiapine FUMARATE 25 MG TABLET PO (21:10)
[2024-03-15] MEDS: INSULIN ASPART (*BKC) 100 UNITS/ML SUB-Q (21:12)
[2024-03-16] VITALS (21 sets, daily range): BP systolic 91–150; BP diastolic 52–90; PULSE 52–108; RESP 14–26; TEMP 36.4–37; O2SAT 97–100
[2024-03-16 06:16] LABS: Basophils Percent Auto 0.3 % (0.2-1.2); Eosinophils Absolute Auto 0.1 K/mm3 (0-0.3); Eosinophils Percent Auto 1.7 % (0-4.4); Hemoglobin 9.1 g/dL (12.0-15.0); Immature Granulocyte Absolute 0.01 K/mm3 (0.00-0.031); Immature Granulocyte Percent A 0.2 % (0-0.5); Lymphocytes Absolute Auto 2.12 K/mm3 (0.9-3.2); Lymphocytes Percent Auto 36.2 % (18.3-44.2); Mean Corpuscular HGB Conc 29.4 g/dl (32-36); Mean Corpuscular Hemoglobin 27.7 pg (26-34); Mean Corpuscular Volume 94.2 fl (80-100); Mean Platelet Volume 12.2 fl (7.4-10.4); Monocytes Absolute Auto 0.6 K/mm3 (0.1-0.6); Monocytes Percent Auto 10.1 % (2.6-8.5); Neutrophils Percent Auto 51.5 % (45.5-73.1); Platelet Count Result 115 k/mm3 (150-375); Red Blood Count 3.29 M/mm3 (4.2-5.4); Red Cell Distribution Width 14.5 % (11.5-14.5); White Blood Count 5.9 K/mm3 (4.5-10.0)
[2024-03-16 06:44] LABS: Albumin Level 3.6 g/dL (3.5-5.1); Anion Gap 9 mmol/L (4-12); Blood Urea Nitrogen 44 mg/dL (7-17); Calcium 11.2 mg/dL (8.4-10.2); Carbon Dioxide 27 mmol/L (22-30); Chloride 101 mmol/L (98-107); Estimated CRCL calculation 12 ml/min; Estimated Glomerular Filt Rate 10; Glucose 167 mg/dL (65-110); Phosphorus 5.8 mg/dL (2.5-4.5); Potassium 4.7 mmol/L (3.4-5.0); Sodium 137 mmol/L (137-145)
[2024-03-16 08:11] LABS: Glucose Point of Care 162 mg/dl (65-105)
--- NOTE | 2024-03-16 08:18 | PC.NURSE ---
Rn took pt to get dialysis
--- NOTE | 2024-03-16 09:10 | P.PNNP_ITS ---
Progress Note: A&P Assessment and Plan (1) ESRD (end stage renal disease): Code(s): N18.6 - End stage renal disease Status: Chronic Assessment and Plan: * creatinine has been running in the 3.2 - 3.6mg/dl range in the last 6 months * slow and ongoing progression of kidney disease over the last 2 years with recent deterioration noted in September 2023 * some concerns regarding possible uremic symptoms (poor oral intake, decreased energy level/increased fatigue, confusion,...etc) recently * due to her diabetes, hypertension, vascular disease, recurrent nephrolithiasis + UTIs and what essentially appears to be only one kidney providing functionality based on previous imaging * renal scan in 10/25/14 with poor right kidney function which is 16% of total renal function * s/p tunneled HD catheter placement (on 02/28/24) * HD tomorrow and continue M/W/F schedule for now... * outpatient dialysis being arranged/finalized (2) Acute respiratory failure: Code(s): J96.00 - Acute respiratory failure, unspecified whether with hypoxia or hypercapnia Status: Acute Assessment and Plan: * clinically better if not resolved * felt to be secondary to pulmonary edema/volume overload and encephalopathy * intubated on the evening of 02/26 * self extubated on evening of 03/04 * fluid removal as tolerated with HD/DUF * monitor respiratory status (3) Altered mental status: Code(s): R41.82 - Altered mental status, unspecified Status: Acute Assessment and Plan: * clinically better * as noted on admission and at nursing facility * presumably multifactorial: infections, medications, hypercalcemia, and uremia. * follow mentation (4) Acute UTI: Code(s): N39.0 - Urinary tract infection, site not specified Status: Acute Assessment and Plan: * admission urinalysis highly suggestive * complicated by indwelling catheter * urine and blood cultures negative on 02/24 - completed course of antibiotics * repeat urine culture done 03/11 - culture with Proteus and Pseudomonas * resumed on antibiotics (cefepine) (5) Hypercalcemia: Code(s): E83.52 - Hypercalcemia Status: Chronic Assessment and Plan: * better currently * somewhat chronic from review of records * due to prolonged immobilization(?) * evaluation to date: * ionized calcium okay * PTH mildly elevated * Vitamin D (25-OH) okay * serum/urine immunofixation negative * s/p calcitonin dosing * bone scan ordered * adjusting calcium bath with dialysis (6) Benign essential hypertension: Code(s): I10 - Essential (primary) hypertension Status: Chronic Assessment and Plan: * reasonable control * follow trend of hemodynamics (7) Anemia: Code(s): D64.9 - Anemia, unspecified Status: Chronic Assessment and Plan: * due to underlying CKD (with progression of ESRD) and acute illness * Epogen with HD * follow trend of H/H (8) DVT, bilateral lower limbs: Code(s): I82.403 - Acute embolism and thrombosis of unspecified deep veins of lower extremity, bilateral Status: Acute Assessment and Plan: * as noted by LE dopplerarabella * [facility] ([facility]) DM type 2 (diabetes mellitus, type 2): Onset Date: ~2018 Qualifiers: Diabetes mellitus residential insulin use: without meterman use Diabetes mellitus complication status: without complication Qualified Code(s): E11.9 - Type 2 diabetes mellitus without complications Co
--- NOTE | 2024-03-16 09:10 | PM.PNNEP ---
Progress Note: A&P Assessment and Plan (1) ESRD (end stage renal disease): Code(s): N18.6 - End stage renal disease Status: Chronic Assessment and Plan: creatinine has been running in the 3.2 - 3.6mg/dl range in the last 6 months slow and ongoing progression of kidney disease over the last 2 years with recent deterioration noted in September 2023 some concerns regarding possible uremic symptoms (poor oral intake, decreased energy level/increased fatigue, confusion,...etc) recently due to her diabetes, hypertension, vascular disease, recurrent nephrolithiasis + UTIs and what essentially appears to be only one kidney providing functionality based on previous imaging renal scan in 10/25/14 with poor right kidney function which is 16% of total renal function s/p tunneled HD catheter placement (on 02/28/24) HD tomorrow and continue M/W/F schedule for now... outpatient dialysis being arranged/finalized (2) Acute respiratory failure: Code(s): J96.00 - Acute respiratory failure, unspecified whether with hypoxia or hypercapnia Status: Acute Assessment and Plan: clinically better if not resolved felt to be secondary to pulmonary edema/volume overload and encephalopathy intubated on the evening of 02/26 self extubated on evening of 03/04 fluid removal as tolerated with HD/DUF monitor respiratory status (3) Altered mental status: Code(s): R41.82 - Altered mental status, unspecified Status: Acute Assessment and Plan: clinically better as noted on admission and at nursing facility presumably multifactorial: infections, medications, hypercalcemia, and uremia. follow mentation (4) Acute UTI: Code(s): N39.0 - Urinary tract infection, site not specified Status: Acute Assessment and Plan: admission urinalysis highly suggestive complicated by indwelling catheter urine and blood cultures negative on 02/24 - completed course of antibiotics repeat urine culture done 03/11 - culture with Proteus and Pseudomonas resumed on antibiotics (cefepine) (5) Hypercalcemia: Code(s): E83.52 - Hypercalcemia Status: Chronic Assessment and Plan: better currently somewhat chronic from review of records due to prolonged immobilization(?) evaluation to date: ionized calcium okay PTH mildly elevated Vitamin D (25-OH) okay serum/urine immunofixation negative s/p calcitonin dosing bone scan ordered adjusting calcium bath with dialysis (6) Benign essential hypertension: Code(s): I10 - Essential (primary) hypertension Status: Chronic Assessment and Plan: reasonable control follow trend of hemodynamics (7) Anemia: Code(s): D64.9 - Anemia, unspecified Status: Chronic Assessment and Plan: due to underlying CKD (with progression of ESRD) and acute illness Epogen with HD follow trend of H/H (8) DVT, bilateral lower limbs: Code(s): I82.403 - Acute embolism and thrombosis of unspecified deep veins of lower extremity, bilateral Status: Acute Assessment and Plan: as noted by LE dopplerarabella back on Eliquis (9) DM type 2 (diabetes mellitus, type 2): Onset Date: ~2018 Qualifiers: Diabetes mellitus intermediate insulin use: without ad terminal makeup operator use Diabetes mellitus complication status: without complication Qualified Code(s): E11.9 - Type 2 diabetes mellitus without complications Code(s): E11.9 - Type 2 diabetes mellitus without complications Status: Chronic Assessment and Plan: follow accu-cheks glycemic control per hospitalists Will continue to follow. Subjective Date/time seen: 03/16/24 09:10 Interval history: Follow-up for chronic kidney disease (with progression to ESRD on hemodialysis) Tolerating dialysis at the time of my visit (seen on HD at 9:00AM); once again, seems a bit more agitated/disruptive with her anger mor
[2024-03-16] MEDS: ONDANSETRON HCL ODT 4 MG TABLET PO (09:52)
[2024-03-16] MEDS: ACETAMINOPHEN 325 MG TABLET 650 MG PO ×3 (09:53→21:34)
[2024-03-16] MEDS: EPOETIN ALFA-EPBX 10,000 UNITS/ML VIAL 10000 UNITS IV PUSH (10:55)
[2024-03-16] MEDS: HEPARIN SODIUM 1,000 UNITS/ML VIAL 2000 UNITS (12:16)
[2024-03-16] MEDS: HEPARIN SODIUM 1,000 UNITS/ML VIAL 6000 UNITS (12:16)
--- NOTE | 2024-03-16 12:53 | PC.NURSE ---
RN assumed care of pt. Charge got pt from Dialysis @ [id number]
[2024-03-16] MEDS: APIXABAN 5 MG TABLET PO ×2 (12:57→21:28)
[2024-03-16] MEDS: ROSUVASTATIN 10 MG TABLET PO (12:57)
[2024-03-16] MEDS: CHOLECALCIFEROL 1,000 UNITS TABLET 2000 UNITS PO (12:57)
[2024-03-16] MEDS: METOPROLOL TARTRATE 25 MG TABLET PO ×2 (12:57→21:28)
[2024-03-16] MEDS: CYANOCOBALAMIN 1,000 MCG TABLET 1000 MCG PO (12:57)
[2024-03-16] MEDS: TOLNAFTATE 1% POWDER 45 GM BTL 1 APPLIC TOPICAL ×2 (12:59→21:28)
[2024-03-16 13:29] LABS: Glucose Point of Care 122 mg/dl (65-105)
--- NOTE | 2024-03-16 14:06 | PM.IMPN ---
Progress Note: A&P Assessment and Plan (1) Altered mental status: Code(s): R41.82 - Altered mental status, unspecified Status: Acute Assessment and Plan: Likely toxic metabolic encephalopathy with underlying dementia. -Ammonia and TSH normal -Head CT was negative -Possible UTI with suggestive UA. However 02/24 urine culture negative. Patient has chronic indwelling Braswell and has history of UTIs. -S/p full course of meropenem. Vancomycin DC'd on 02/28 -Her WBC and procalcitonin level was normal -02/24 Blood culture negative -Pt has h/o dementia. Further discussions held with the daughter and over the course of this admission the patient has become more alert. Daughter reports prior to this admission the patient did have dementia and was confused. She is on Seroquel and Abilify. We advanced Abilify; stop Seroquel. Monitor mentals status (2) Acute UTI: Code(s): N39.0 - Urinary tract infection, site not specified Status: Acute Assessment and Plan: Patient has chronic indwelling Braswell and has history of UTIs Her WBC and procalcitonin level was normal Orignial Cultures were negative She completed a course of meropenem Of note, on 03/11 the daughter requested a urine culture since it looked abnormal to her. No UA performed but UCx growing proteus and pseudomonas each with >100K colonies; susceptibilities noted. Related to chronic Braswell Discussed with PharmD ID and abx changed to Cefepime (3) Acute respiratory failure: Code(s): J96.00 - Acute respiratory failure, unspecified whether with hypoxia or hypercapnia Status: Acute Assessment and Plan: Multifactorial acute respiratory failure secondary to pulmonary edema, encephalopathy 02/26: Patient intubated 03/04: Self extubated -she has been since weaned to room air. Completed course of meropenem (4) Chronic kidney disease (CKD), stage V: Code(s): N18.5 - Chronic kidney disease, stage 5 Status: Chronic Assessment and Plan: Patient with diabetes, hypertension, vascular disease, recurrent nephrolithiasis + UTIs and what essentially appears to be only one kidney providing functionality based on previous imaging. Creatinine has been running in the 3.2 - 3.6mg/dl range in the last 6 months -Some concern for uremic symptoms recently -Nephrology following -Dialysis catheter inserted 02/28/24 and patient started on hemodialysis -dialysis per Nephrology. Outpatient dialysis is being set up and she can be discharged on TuesdayMarch 19 after HD (5) DM type 2 (diabetes mellitus, type 2): Onset Date: ~2018 Qualifiers: Diabetes mellitus alf insulin use: without alf use Diabetes mellitus complication status: without complication Qualified Code(s): E11.9 - Type 2 diabetes mellitus without complications Code(s): E11.9 - Type 2 diabetes mellitus without complications Status: Chronic Assessment and Plan: The patient's blood glucose was reviewed on 03/16 Glucose remains reasonably well controlled. Continue AccuCheks covering with sliding scale. Hypoglycemia protocol available as needed. Continue to follow (6) A-fib: Qualifiers: Atrial fibrillation type: unspecified Qualified Code(s): I48.91 - Unspecified atrial fibrillation Code(s): I48.91 - Unspecified atrial fibrillation Status: Acute Assessment and Plan: Patient with hx of afib. Was on Eliquis prior to admission, however Eliquis was held for invasive procedure 02/28 Eliquis resumed Echo showing EF 50-55% and mild increase in LV wall thickness Follow (7) Chronic indwelling Braswell catheter: Code(s): Z97.8 - Presence of other specified devices Status: Acute Assessment and Plan: Patient has chronic indwelling Braswell which was placed due to incontinence as per patient's daughter Family voiced understanding about risk of chronic Braswell but would like to keep it in for now
[2024-03-16 17:13] LABS: Glucose Point of Care 124 mg/dl (65-105)
--- NOTE | 2024-03-16 19:56 | PC.NURSE ---
Pt IV stopped working at 1750. 1800 MED was not administered due to pt needing an IV placed via ultrasound
[2024-03-16 20:26] LABS: Glucose Point of Care 232 mg/dl (65-105)
[2024-03-16] MEDS: INSULIN ASPART (*BKC) 100 UNITS/ML SUB-Q (21:35)
[2024-03-17 05:53] VITALS: BP 145/91; PULSE 88; RESP 12; TEMP 36.2; O2SAT 91
[2024-03-17 07:50] LABS: Glucose Point of Care 149 mg/dl (65-105)
--- NOTE | 2024-03-17 09:34 | P.PNNP_ITS ---
Progress Note: A&P Assessment and Plan (1) ESRD (end stage renal disease): Code(s): N18.6 - End stage renal disease Status: Chronic Assessment and Plan: * creatinine has been running in the 3.2 - 3.6mg/dl range in the last 6 months * slow and ongoing progression of kidney disease over the last 2 years with recent deterioration noted in September 2023 * some concerns regarding possible uremic symptoms (poor oral intake, decreased energy level/increased fatigue, confusion,...etc) recently * due to her diabetes, hypertension, vascular disease, recurrent nephrolithiasis + UTIs and what essentially appears to be only one kidney providing functionality based on previous imaging * renal scan in 10/25/14 with poor right kidney function which is 16% of total renal function * s/p tunneled HD catheter placement (on 02/28/24) * HD Tuesday. * Doing okay on dialysis so far. * outpatient dialysis being arranged/finalized (2) Acute respiratory failure: Code(s): J96.00 - Acute respiratory failure, unspecified whether with hypoxia or hypercapnia Status: Acute Assessment and Plan: * clinically better. * Oxygen dose down to only 1L. * Continue to remove fluid as tolerated. * Volume status looks much better. (3) Altered mental status: Code(s): R41.82 - Altered mental status, unspecified Status: Acute Assessment and Plan: * clinically better But not completely normal. * presumably multifactorial: infections, medications, hypercalcemia, and uremia. * the patient is on antibiotics and infections seem better. * BUN and creatinine are better. * Calcium level improved some but was high again yesterday. See below * follow mentation (4) Acute UTI: Code(s): N39.0 - Urinary tract infection, site not specified Status: Acute Assessment and Plan: * admission urinalysis highly suggestive * complicated by indwelling catheter * urine and blood cultures negative on 02/24 - completed course of antibiotics * repeat urine culture done 03/11 - culture with Proteus and Pseudomonas * resumed on cefepine (5) Hypercalcemia: Code(s): E83.52 - Hypercalcemia Status: Chronic Assessment and Plan: * Hypercalcemia. * somewhat chronic from review of records * due to prolonged immobilization(?) * evaluation to date: * ionized calcium okay When serum calcium was normal. * PTH mildly elevated * Vitamin D (25-OH) okay * serum/urine immunofixation negative * Check vitamin-A and Vinicio levels. * Urine calcium to creatinine value would be meaningless since she is on dialysis. * s/p calcitonin dosing * bone scan ordered yesterday * will stop her vitamin-D since the level is okay. * Since it is not getting better with dialysis will give her a dose of pamidronate. (6) Benign essential hypertension: Code(s): I10 - Essential (primary) hypertension Status: Chronic Assessment and Plan: * Systolic 145. * Will see how she does over the weekend. (7) Anemia: Code(s): D64.9 - Anemia, unspecified Status: Chronic Assessment and Plan: * due to underlying CKD (with progression of ESRD) and acute illness * Epogen with HD * follow trend of H/H (8) DVT, bilateral lower limbs: Code(s): I82.403 - Acute embolism and thrombosis of unspecified deep veins of lower extremity, bilateral Status: Acute Assessment and Plan: * as noted by DANNY dopplerarabella * back on Eliquis (9)
--- NOTE | 2024-03-17 09:34 | PM.PNNEP ---
Progress Note: A&P Assessment and Plan (1) ESRD (end stage renal disease): Code(s): N18.6 - End stage renal disease Status: Chronic Assessment and Plan: creatinine has been running in the 3.2 - 3.6mg/dl range in the last 6 months slow and ongoing progression of kidney disease over the last 2 years with recent deterioration noted in September 2023 some concerns regarding possible uremic symptoms (poor oral intake, decreased energy level/increased fatigue, confusion,...etc) recently due to her diabetes, hypertension, vascular disease, recurrent nephrolithiasis + UTIs and what essentially appears to be only one kidney providing functionality based on previous imaging renal scan in 10/25/14 with poor right kidney function which is 16% of total renal function s/p tunneled HD catheter placement (on 02/28/24) HD Tuesday. Doing okay on dialysis so far. outpatient dialysis being arranged/finalized (2) Acute respiratory failure: Code(s): J96.00 - Acute respiratory failure, unspecified whether with hypoxia or hypercapnia Status: Acute Assessment and Plan: clinically better. Oxygen dose down to only 1L. Continue to remove fluid as tolerated. Volume status looks much better. (3) Altered mental status: Code(s): R41.82 - Altered mental status, unspecified Status: Acute Assessment and Plan: clinically better But not completely normal. presumably multifactorial: infections, medications, hypercalcemia, and uremia. the patient is on antibiotics and infections seem better. BUN and creatinine are better. Calcium level improved some but was high again yesterday. See below follow mentation (4) Acute UTI: Code(s): N39.0 - Urinary tract infection, site not specified Status: Acute Assessment and Plan: admission urinalysis highly suggestive complicated by indwelling catheter urine and blood cultures negative on 02/24 - completed course of antibiotics repeat urine culture done 03/11 - culture with Proteus and Pseudomonas resumed on cefepine (5) Hypercalcemia: Code(s): E83.52 - Hypercalcemia Status: Chronic Assessment and Plan: Hypercalcemia. somewhat chronic from review of records due to prolonged immobilization(?) evaluation to date: ionized calcium okay When serum calcium was normal. PTH mildly elevated Vitamin D (25-OH) okay serum/urine immunofixation negative Check vitamin-A and Vinicio levels. Urine calcium to creatinine value would be meaningless since she is on dialysis. s/p calcitonin dosing bone scan ordered yesterday will stop her vitamin-D since the level is okay. Since it is not getting better with dialysis will give her a dose of pamidronate. (6) Benign essential hypertension: Code(s): I10 - Essential (primary) hypertension Status: Chronic Assessment and Plan: Systolic 145. Will see how she does over the weekend. (7) Anemia: Code(s): D64.9 - Anemia, unspecified Status: Chronic Assessment and Plan: due to underlying CKD (with progression of ESRD) and acute illness Epogen with HD follow trend of H/H (8) DVT, bilateral lower limbs: Code(s): I82.403 - Acute embolism and thrombosis of unspecified deep veins of lower extremity, bilateral Status: Acute Assessment and Plan: as noted by DANNY maldonado back on [facility] (9) DM type 2 (diabetes mellitus, type 2): Onset Date: ~2018 Qualifiers: Diabetes mellitus rn long term care insulin use: without rn long term care use Diabetes mellitus complication status: without complication Qualified Code(s): E11.9 - Type 2 diabetes mellitus without complications Code(s): E11.9 - Type 2 diabetes mellitus without complications Status: Chronic Assessment and Plan: glycemic control per hospitalists Subjective Date/time seen: 03/17/24 09:34
[2024-03-17 09:40] VITALS: PULSE 88
[2024-03-17] MEDS: APIXABAN 5 MG TABLET PO ×2 (09:40→21:26)
[2024-03-17] MEDS: ROSUVASTATIN 10 MG TABLET PO (09:40)
[2024-03-17] MEDS: CHOLECALCIFEROL 1,000 UNITS TABLET 2000 UNITS PO (09:40)
[2024-03-17] MEDS: CYANOCOBALAMIN 1,000 MCG TABLET 1000 MCG PO (09:40)
[2024-03-17] MEDS: METOPROLOL TARTRATE 25 MG TABLET PO ×2 (09:40→21:26)
[2024-03-17] MEDS: methylPHENIDATE HCL (*CRX) 10 MG TABLET PO ×2 (09:43→12:12)
--- NOTE | 2024-03-17 11:06 | PCSTNOTE ---
Order for modified barium swallow received. Radiology called at scheduled time to report that patient refused to be transported to radiology suite for procedure. At that time this SOCIAL SCIENTIST went to see patient to discuss and encourage her to have procedure and she refused. Reported to nurse and physician. Order cancelled.
[2024-03-17 11:52] LABS: Glucose Point of Care 196 mg/dl (65-105)
[2024-03-17] MEDS: TOLNAFTATE 1% POWDER 45 GM BTL 1 APPLIC TOPICAL ×2 (12:11→21:26)
[2024-03-17] MEDS: PAMIDRONATE DISODIUM 30 MG in DEXTROSE 5% IN WATER 500 ML 125 MG IVPB (13:11)
--- NOTE | 2024-03-17 14:51 | PM.IMPN ---
Progress Note: A&P Assessment and Plan (1) Altered mental status: Code(s): R41.82 - Altered mental status, unspecified Status: Acute Assessment and Plan: Likely toxic metabolic encephalopathy with underlying dementia. -Ammonia and TSH normal -Head CT was negative -Possible UTI but UCx (02/24) negative. Patient has chronic indwelling Braswell and has history of UTIs. -S/p full course of meropenem. Vancomycin DC'd on 02/28 -Her WBC and procalcitonin level were normal -BCx (02/24) negative -Pt has h/o dementia. Further discussions held with the daughter and over the course of this admission the patient has become more alert. Daughter reports prior to this admission the patient did have dementia and was confused. She is on Seroquel and Abilify. We advanced Abilify; stopped Seroquel. Monitor mentals status (2) Acute UTI: Code(s): N39.0 - Urinary tract infection, site not specified Status: Acute Assessment and Plan: Patient has chronic indwelling Braswell and has history of UTIs Her WBC and procalcitonin level were normal Orignial UCx were negative She completed a course of meropenem Of note, on 03/11 the daughter requested a urine culture since it looked abnormal to her. No UA performed but UCx drawn and growing proteus and pseudomonas each with >100K colonies; susceptibilities noted. Related to chronic Braswell Discussed with PharmD ID and abx changed to Cefepime Discussed with dtr about removing Braswell due to now patient on dialysis and makes small amounts of urine. And since Braswell placed originally for urine incontinence but dtr declines. She voiced understanding about the risk of recurrent infections and the development of abx resistance. (3) Acute respiratory failure: Code(s): J96.00 - Acute respiratory failure, unspecified whether with hypoxia or hypercapnia Status: Acute Assessment and Plan: Multifactorial acute respiratory failure secondary to pulmonary edema, encephalopathy 02/26: Patient intubated 03/04: Self extubated -she has improved and was able to be weaned to room air. Completed course of meropenem and now on Cefepime (4) Chronic kidney disease (CKD), stage V: Code(s): N18.5 - Chronic kidney disease, stage 5 Status: Chronic Assessment and Plan: CKD with patient with DM, HTN, vascular disease, recurrent nephrolithiasis + UTIs and what essentially appears to be only one functioning kidney based on previous imaging. Creatinine has been running in the 3.2 - 3.6mg/dl range in the last 6 months -Some concern for uremic symptoms recently -Nephrology following -Dialysis catheter inserted 02/28/24 and patient started on hemodialysis -dialysis per Nephrology. 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 Continue AccuCheks covering with sliding scale. Hypoglycemia protocol available as needed. Continue to follow (6) A-fib: Qualifiers: Atrial fibrillation type: unspecified Qualified Code(s): I48.91 - Unspecified atrial fibrillation Code(s): I48.91 - Unspecified atrial fibrillation Status: Acute Assessment and Plan: Patient with hx of afib. Was on Eliquis prior to admission, however Eliquis was held for invasive procedure 02/28 Eliquis resumed Echo showing EF 50-55% and mild increase in LV wall thickness Follow (7) Chronic indwelling Braswell catheter: Code(s): Z97.8 - Prese
[2024-03-17 15:43] VITALS: BP 129/66; PULSE 101; RESP 16; TEMP 36.7; O2SAT 98
[2024-03-17] MEDS: ACETAMINOPHEN 325 MG TABLET 650 MG PO ×2 (16:46→21:26)
[2024-03-17 16:47] LABS: Glucose Point of Care 257 mg/dl (65-105)
[2024-03-17] MEDS: INSULIN ASPART (*BKC) 100 UNITS/ML SUB-Q (17:05)
[2024-03-17] MEDS: CEFEPIME 1 GM/NS 50 ML 1 GM/50 ML BAG IVPB (17:33)
[2024-03-17 21:52] LABS: Glucose Point of Care 197 mg/dl (65-105)
[2024-03-17 22:00] VITALS: BP 114/73; PULSE 92; RESP 20; TEMP 36.9; O2SAT 96
[2024-03-18 06:00] VITALS: BP 116/54; PULSE 64; RESP 20; TEMP 37.1; O2SAT 93
[2024-03-18 06:13] LABS: Albumin Level 3.5 g/dL (3.5-5.1); Anion Gap 7 mmol/L (4-12); Blood Urea Nitrogen 38 mg/dL (7-17); Calcium 10.8 mg/dL (8.4-10.2); Carbon Dioxide 27 mmol/L (22-30); Chloride 99 mmol/L (98-107); Estimated CRCL calculation 12 ml/min; Estimated Glomerular Filt Rate 10; Glucose 179 mg/dL (65-110); Phosphorus 5.3 mg/dL (2.5-4.5); Potassium 4.6 mmol/L (3.4-5.0); Sodium 133 mmol/L (137-145)
[2024-03-18 07:43] LABS: Glucose Point of Care 176 mg/dl (65-105)
[2024-03-18] MEDS: ACETAMINOPHEN 325 MG TABLET 650 MG PO ×3 (09:43→22:34)
[2024-03-18] MEDS: APIXABAN 5 MG TABLET PO ×2 (09:46→20:13)
[2024-03-18] MEDS: TOLNAFTATE 1% POWDER 45 GM BTL 1 APPLIC TOPICAL ×2 (09:47→20:12)
--- NOTE | 2024-03-18 10:02 | P.PNNP_ITS ---
Progress Note: A&P Assessment and Plan (1) ESRD (end stage renal disease): Code(s): N18.6 - End stage renal disease Status: Chronic Assessment and Plan: * creatinine has been running in the 3.2 - 3.6mg/dl range in the last 6 months * slow and ongoing progression of kidney disease over the last 2 years with recent deterioration noted in September 2023 * some concerns regarding possible uremic symptoms (poor oral intake, decreased energy level/increased fatigue, confusion,...etc) recently * due to her diabetes, hypertension, vascular disease, recurrent nephrolithiasis + UTIs and what essentially appears to be only one kidney providing functionality based on previous imaging * renal scan in 10/25/14 with poor right kidney function which is 16% of total renal function * s/p tunneled HD catheter placement (on 02/28/24) * HD Tuesday. * will put orders in for tomorrow * Doing okay on dialysis so far. * outpatient dialysis being arranged/finalized (2) Acute respiratory failure: Code(s): J96.00 - Acute respiratory failure, unspecified whether with hypoxia or hypercapnia Status: Acute Assessment and Plan: * clinically better. * Oxygen dose down to only 1L. * remove more fluid tomorrow (3) Altered mental status: Code(s): R41.82 - Altered mental status, unspecified Status: Acute Assessment and Plan: * clinically better. * Calcium still little bit on the high side. (4) Acute UTI: Code(s): N39.0 - Urinary tract infection, site not specified Status: Acute Assessment and Plan: * admission urinalysis highly suggestive * complicated by indwelling catheter * urine and blood cultures negative on 02/24 - completed course of antibiotics * repeat urine culture done 03/11 - culture with Proteus and Pseudomonas * Currently on cefepine (5) Hypercalcemia: Code(s): E83.52 - Hypercalcemia Status: Chronic Assessment and Plan: * Hypercalcemia. * somewhat chronic from review of records * due to prolonged immobilization(?) * evaluation to date: * ionized calcium okay When serum calcium was normal. * PTH mildly elevated * Vitamin D (25-OH) okay * serum/urine immunofixation negative * vitamin-A and Vinicio levels are pending * Urine calcium to creatinine value would be meaningless since she is on dialysis. * s/p calcitonin dosing * bone scan ordered yesterday * off vitamin-D * received pamidronate yesterday (6) Benign essential hypertension: Code(s): I10 - Essential (primary) hypertension Status: Chronic Assessment and Plan: * Systolic 116. * Will see how she does over the weekend. 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
--- NOTE | 2024-03-18 10:02 | PM.PNNEP ---
Progress Note: A&P Assessment and Plan (1) ESRD (end stage renal disease): Code(s): N18.6 - End stage renal disease Status: Chronic Assessment and Plan: creatinine has been running in the 3.2 - 3.6mg/dl range in the last 6 months slow and ongoing progression of kidney disease over the last 2 years with recent deterioration noted in September 2023 some concerns regarding possible uremic symptoms (poor oral intake, decreased energy level/increased fatigue, confusion,...etc) recently due to her diabetes, hypertension, vascular disease, recurrent nephrolithiasis + UTIs and what essentially appears to be only one kidney providing functionality based on previous imaging renal scan in 10/25/14 with poor right kidney function which is 16% of total renal function s/p tunneled HD catheter placement (on 02/28/24) HD Tuesday. will put orders in for tomorrow Doing okay on dialysis so far. outpatient dialysis being arranged/finalized (2) Acute respiratory failure: Code(s): J96.00 - Acute respiratory failure, unspecified whether with hypoxia or hypercapnia Status: Acute Assessment and Plan: clinically better. Oxygen dose down to only 1L. remove more fluid tomorrow (3) Altered mental status: Code(s): R41.82 - Altered mental status, unspecified Status: Acute Assessment and Plan: clinically better. Calcium still little bit on the high side. (4) Acute UTI: Code(s): N39.0 - Urinary tract infection, site not specified Status: Acute Assessment and Plan: admission urinalysis highly suggestive complicated by indwelling catheter urine and blood cultures negative on 02/24 - completed course of antibiotics repeat urine culture done 03/11 - culture with Proteus and Pseudomonas Currently on cefepine (5) Hypercalcemia: Code(s): E83.52 - Hypercalcemia Status: Chronic Assessment and Plan: Hypercalcemia. somewhat chronic from review of records due to prolonged immobilization(?) evaluation to date: ionized calcium okay When serum calcium was normal. PTH mildly elevated Vitamin D (25-OH) okay serum/urine immunofixation negative vitamin-A and Vinicio levels are pending Urine calcium to creatinine value would be meaningless since she is on dialysis. s/p calcitonin dosing bone scan ordered yesterday off vitamin-D received pamidronate yesterday (6) Benign essential hypertension: Code(s): I10 - Essential (primary) hypertension Status: Chronic Assessment and Plan: Systolic 116. Will see how she does over the weekend. 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 No chest pain or shortness of breath Exam Narrative: General: elderly female in NAD Heart: normal S1 and S2; no rub Or gallop Lungs: coarse breath sounds; decreased at bases Abdomen: soft, nontender, nondistended, positive bowel sounds Extremities: trace edema
--- NOTE | 2024-03-18 10:41 | PM.IMPN ---
Progress Note: A&P Assessment and Plan (1) Altered mental status: Code(s): R41.82 - Altered mental status, unspecified Status: Acute Assessment and Plan: Likely toxic metabolic encephalopathy with underlying dementia. Ammonia and TSH normal. Head CT was negative Possible UTI but UCx (02/24) negative. Patient has chronic indwelling Braswell and has history of UTIs. She completed a full course of meropenem (completed 03/03). Vancomycin DC'd on 02/28 Her WBC and procalcitonin level were normal BCx (02/24) negative Pt has h/o dementia. Further discussions held with the daughter and over the course of this admission the patient has become more alert. Daughter reports prior to this admission the patient did have dementia and was confused. She was on Abilify from home and Seroquel added here. Ambien stopped. We advanced Abilify; stopped Seroquel. Monitor mental status (2) Acute UTI: Code(s): N39.0 - Urinary tract infection, site not specified Status: Acute Assessment and Plan: Patient has chronic indwelling Braswell and has history of UTIs Her WBC and procalcitonin level were normal UCx on admisson was negative She completed a course of meropenem on 03/03 Of note, on 03/11 the daughter requested a urine culture since it looked abnormal to her. No UA performed but UCx drawn and growing proteus and pseudomonas each with >100K colonies; susceptibilities noted. Related to chronic Braswell Discussed with PharmD ID and abx changed to Cefepime Discussed with dtr about removing Braswell due to now patient on dialysis and makes small amounts of urine. And since Braswell placed originally for urine incontinence but dtr declines. She voiced understanding about the risk of recurrent infections and the development of abx resistance. (3) Acute respiratory failure: Code(s): J96.00 - Acute respiratory failure, unspecified whether with hypoxia or hypercapnia Status: Acute Assessment and Plan: Multifactorial acute respiratory failure secondary to pulmonary edema, encephalopathy 02/26: Patient intubated 03/04: Self extubated Completed course of meropenem and now on Cefepime She has improved and was able to be weaned to room air. Resolved (4) Chronic kidney disease (CKD), stage V: Code(s): N18.5 - Chronic kidney disease, stage 5 Status: Chronic Assessment and Plan: CKD due to DM, HTN, vascular disease, recurrent nephrolithiasis, recurrent UTIs and with only one functioning kidney Creatinine has been running in the 3.2 - 3.6mg/dl range in the last 6 months Some concern for uremic symptoms recently contributing to her mental status changes Nephrology following and appreciate their input. Dialysis catheter inserted 02/28/24 and patient started on hemodialysis Plan for dialysis per Nephrology. Outpatient dialysis has been set up and she can be discharged on TuesdayMarch 19 after HD (5) DM type 2 (diabetes mellitus, type 2): Onset Date: ~2018 Qualifiers: Diabetes mellitus emt intermediate insulin use: without fdc use Diabetes mellitus complication status: without complication Qualified Code(s): E11.9 - Type 2 diabetes mellitus without complications Code(s): E11.9 - Type 2 diabetes mellitus without complications Status: Chronic Assessment and Plan: A1c 6.4. The patient's blood glucose was reviewed on 03/18 Glucose remains reasonably well controlled. Continue AccuCheks covering with sliding scale. Hypoglycemia protocol available as needed. Continue to follow (6) A-fib: Qualifiers: Atrial fibrillation type: unspecified Qualified Code(s): I48.91 - Unspecified atrial fibrillation Code(s): I48.91 - Unspecified atrial fibrillation Status: Acute Assessment and Plan: Patient with hx of afib. Was on Eliquis prior to admission, however Eliquis was held for invasive procedure Eliquis resumed on 02/28 and tolerated well Echo showing
[2024-03-18 11:42] LABS: Glucose Point of Care 195 mg/dl (65-105)
[2024-03-18 15:27] VITALS: BP 132/89; PULSE 88; RESP 16; TEMP 36.4; O2SAT 96
[2024-03-18] MEDS: CEFEPIME 1 GM/NS 50 ML 1 GM/50 ML BAG IVPB (18:03)
[2024-03-18 18:52] LABS: Glucose Point of Care 232 mg/dl (65-105)
--- NOTE | 2024-03-18 19:09 | PC.NURSE ---
RN tried to undo and provide pt insulin but was unable to do so on the DEC so advised night nurse to adjust dose at bed time.
[2024-03-18 20:12] VITALS: PULSE 83
[2024-03-18] MEDS: METOPROLOL TARTRATE 25 MG TABLET PO (20:12)
[2024-03-18 21:22] LABS: Glucose Point of Care 217 mg/dl (65-105)
[2024-03-18] MEDS: INSULIN ASPART (*BKC) 100 UNITS/ML SUB-Q (22:20)
[2024-03-19] VITALS (19 sets, daily range): BP systolic 95–143; BP diastolic 36–86; PULSE 55–102; RESP 16–20; TEMP 36.2–37; O2SAT 95–96
[2024-03-19 06:24] LABS: Hematocrit 32.4 % (37.0-47.0); Hemoglobin 9.3 g/dL (12.0-15.0); Immature Platelet Fraction Pct 4.7 % (0.9-11.2); Mean Corpuscular HGB Conc 28.7 g/dl (32-36); Mean Corpuscular Hemoglobin 28.1 pg (26-34); Mean Corpuscular Volume 97.9 fl (80-100); Platelet Count Result 119 k/mm3 (150-375); Red Blood Count 3.31 M/mm3 (4.2-5.4); Red Cell Distribution Width 14.6 % (11.5-14.5); White Blood Count 4.3 K/mm3 (4.5-10.0)
[2024-03-19 06:57] LABS: Albumin Level 3.4 g/dL (3.5-5.1); Anion Gap 11 mmol/L (4-12); Blood Urea Nitrogen 52 mg/dL (7-17); Calcium 10.1 mg/dL (8.4-10.2); Carbon Dioxide 21 mmol/L (22-30); Chloride 101 mmol/L (98-107); Estimated CRCL calculation 10 ml/min; Estimated Glomerular Filt Rate 8; Glucose 123 mg/dL (65-110); Potassium 4.5 mmol/L (3.4-5.0); Sodium 133 mmol/L (137-145)
[2024-03-19 07:58] LABS: Glucose Point of Care 121 mg/dl (65-105)
[2024-03-19 11:20] LABS: Glucose Point of Care 120 mg/dl (65-105)
[2024-03-19] MEDS: TOLNAFTATE 1% POWDER 45 GM BTL 1 APPLIC TOPICAL (13:05)
--- NOTE | 2024-03-19 13:35 | P.PNNP_ITS ---
Progress Note: A&P Assessment and Plan (1) ESRD (end stage renal disease): Code(s): N18.6 - End stage renal disease Status: Chronic Assessment and Plan: * creatinine has been running in the 3.2 - 3.6mg/dl range in the last 6 months * slow and ongoing progression of kidney disease over the last 2 years with recent deterioration noted in September 2023 * some concerns regarding possible uremic symptoms (poor oral intake, decreased energy level/increased fatigue, confusion,...etc) recently * due to her diabetes, hypertension, vascular disease, recurrent nephrolithiasis + UTIs and what essentially appears to be only one kidney providing functionality based on previous imaging * renal scan in 10/25/14 with poor right kidney function which is 16% of total renal function * s/p tunneled HD catheter placement (on 02/28/24) * HD today and continue M/W/F schedule (as this will be her outpatient schedule) * outpatient dialysis being finalized (2) Acute respiratory failure: Code(s): J96.00 - Acute respiratory failure, unspecified whether with hypoxia or hyper capnia Status: Acute Assessment and Plan: * clinically better * continue to remove fluid as tolerated * follow respiratory status (3) Altered mental status: Code(s): R41.82 - Altered mental status, unspecified Status: Acute Assessment and Plan: * clinically better * complicated by known history of dementia (4) Acute UTI: Code(s): N39.0 - Urinary tract infection, site not specified Status: Acute Assessment and Plan: * admission urinalysis highly suggestive * complicated by indwelling catheter * urine and blood cultures negative on 02/24 - completed course of antibiotics * repeat urine culture done 03/11 - culture with Proteus and Pseudomonas * on antibiotics (5) Hypercalcemia: Code(s): E83.52 - Hypercalcemia Status: Chronic Assessment and Plan: * somewhat chronic from review of records * due to prolonged immobilization(?) * evaluation to date: * ionized calcium okay when serum calcium was normal * PTH mildly elevated * Vitamin D (25-OH) okay * serum/urine immunofixation negative * vitamin-A and Vinicio levels are pending * urine calcium to creatinine value would be meaningless since she is on dialysis. * s/p calcitonin dosing * s/p dosing with pamidronate (on 5/25) (6) Benign essential hypertension: Code(s): I10 - Essential (primary) hypertension Status: Chronic Assessment and Plan: * reasonable control * follow trend of hemodynamics (7) Anemia: Code(s): D64.9 - Anemia, unspecified Status: Chronic Assessment and Plan: * due to underlying CKD (with progression of ESRD) and acute illness * Epogen with HD * follow H/H (8) DVT, bilateral lower limbs: Code(s): I82.403 - Acute embolism and thrombosis of unspecified deep veins of lower extremity, bilateral Status: Acute Assessment and Plan: * as noted by LE dopplers * on Eliquis (9) DM type 2 (diabetes mellitus, type 2): Onset Date: ~2018 Qualifiers: 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
--- NOTE | 2024-03-19 13:35 | PM.PNNEP ---
Progress Note: A&P Assessment and Plan (1) ESRD (end stage renal disease): Code(s): N18.6 - End stage renal disease Status: Chronic Assessment and Plan: creatinine has been running in the 3.2 - 3.6mg/dl range in the last 6 months slow and ongoing progression of kidney disease over the last 2 years with recent deterioration noted in September 2023 some concerns regarding possible uremic symptoms (poor oral intake, decreased energy level/increased fatigue, confusion,...etc) recently due to her diabetes, hypertension, vascular disease, recurrent nephrolithiasis + UTIs and what essentially appears to be only one kidney providing functionality based on previous imaging renal scan in 10/25/14 with poor right kidney function which is 16% of total renal function s/p tunneled HD catheter placement (on 02/28/24) HD today and continue M/W/F schedule (as this will be her outpatient schedule) outpatient dialysis being finalized (2) Acute respiratory failure: Code(s): J96.00 - Acute respiratory failure, unspecified whether with hypoxia or hypercapnia Status: Acute Assessment and Plan: clinically better continue to remove fluid as tolerated follow respiratory status (3) Altered mental status: Code(s): R41.82 - Altered mental status, unspecified Status: Acute Assessment and Plan: clinically better complicated by known history of dementia (4) Acute UTI: Code(s): N39.0 - Urinary tract infection, site not specified Status: Acute Assessment and Plan: admission urinalysis highly suggestive complicated by indwelling catheter urine and blood cultures negative on 02/24 - completed course of antibiotics repeat urine culture done 03/11 - culture with Proteus and Pseudomonas on antibiotics (5) Hypercalcemia: Code(s): E83.52 - Hypercalcemia Status: Chronic Assessment and Plan: somewhat chronic from review of records due to prolonged immobilization(?) evaluation to date: ionized calcium okay when serum calcium was normal PTH mildly elevated Vitamin D (25-OH) okay serum/urine immunofixation negative vitamin-A and Vinicio levels are pending urine calcium to creatinine value would be meaningless since she is on dialysis. s/p calcitonin dosing s/p dosing with pamidronate (on 03/17) (6) Benign essential hypertension: Code(s): I10 - Essential (primary) hypertension Status: Chronic Assessment and Plan: reasonable control follow trend of hemodynamics (7) Anemia: Code(s): D64.9 - Anemia, unspecified Status: Chronic Assessment and Plan: due to underlying CKD (with progression of ESRD) and acute illness Epogen with HD follow H/H (8) DVT, bilateral lower limbs: Code(s): I82.403 - Acute embolism and thrombosis of unspecified deep veins of lower extremity, bilateral Status: Acute Assessment and Plan: as noted by LE dopplers on Eliquis (9) DM type 2 (diabetes mellitus, type 2): Onset Date: ~2018 Qualifiers: 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 Will continue to follow. Subjective Date/time seen: 03/19/24 13:35 Interval history: Follow-up for chronic kidney disease (with progression to ESRD on hemodialysis) Chart reviewed since last seen -- tolerating dialysis at the time of my visit (seen on HD at 1:25PM); remains intermittently confused which appears to be her baseline;
--- NOTE | 2024-03-19 14:02 | PM.DS ---
DS: Admitting Diagnosis Discharge Date 03/19/24 Admitting Diagnosis Confused and combative DS: Discharge Diagnosis Discharge Diagnosis (1) Altered mental status: Code(s): R41.82 - Altered mental status, unspecified Status: Acute (2) Acute UTI: Code(s): N39.0 - Urinary tract infection, site not specified Status: Acute (3) Acute respiratory failure: Code(s): J96.00 - Acute respiratory failure, unspecified whether with hypoxia or hypercapnia Status: Acute (4) Chronic kidney disease (CKD), stage V: Code(s): N18.5 - Chronic kidney disease, stage 5 Status: Chronic (5) DM type 2 (diabetes mellitus, type 2): Onset Date: ~2018 Qualifiers: Diabetes mellitus jail insulin use: 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 Diabetes mellitus complication status: without complication Qualified Code(s): E11.9 - Type 2 diabetes mellitus without complications Code(s): E11.9 - Type 2 diabetes mellitus without complications Status: Chronic (6) A-fib: Qualifiers: Atrial fibrillation type: unspecified Qualified Code(s): I48.91 - Unspecified atrial fibrillation Code(s): I48.91 - Unspecified atrial fibrillation Status: Acute (7) Chronic indwelling Braswell catheter: Code(s): Z97.8 - Presence of other specified devices Status: Acute (8) Dementia: Qualifiers: Dementia type: unspecified type Dementia severity: moderate Dementia behavioral or psychological symptom: with agitation Qualified Code(s): F03.B11 - Unspecified dementia, moderate, with agitation Code(s): F03.90 - Unspecified dementia, unspecified severity, without behavioral disturbance, psychotic disturbance, mood disturbance, and anxiety Status: Acute (9) Hyperlipidemia: Qualifiers: Hyperlipidemia type: mixed hyperlipidemia Qualified Code(s): E78.2 - Mixed hyperlipidemia Code(s): E78.5 - Hyperlipidemia, unspecified Status: Acute (10) Metabolic acidosis: Code(s): E87.20 - Acidosis, unspecified Status: Acute (11) Dysphagia: Code(s): R13.10 - Dysphagia, unspecified Status: Acute (12) DVT (deep venous thrombosis): Code(s): I82.409 - Acute embolism and thrombosis of unspecified deep veins of unspecified lower extremity Status: Acute DS: Summary Hospital Course Reason for hospitalization: 78yo female with dementia, CKD stage 5 not on dialysis, CHF, HTN, chronic indwelling Braswell catheter and DM here for increased confusion and combative behaviors.?Please see H&P for details. Hospital Course: Patient presents with increasing confusion likely toxic metabolic encephalopathy with underlying dementia. Ammonia and TSH normal. Head CT was negative. Possible UTI but UCx (02/24) negative. Patient has chronic indwelling Braswell and has history of UTIs. She completed a full course of meropenem (completed 03/03). Vancomycin DC'd on 02/28. Her WBC and procalcitonin level were normal. BCx (02/24) negative. Pt has h/o dementia.? Further discussions held with the daughter and over the course of this admission, the patient has become more alert. Daughter reports prior to this admission, the patient did have dementia and was confused. She was on Abilify from home and Seroquel was added here. Ambien stopped. We advanced Abilify and weaned off the Seroquel. She remained calm. Patient has chronic indwelling Braswell and has history of UTIs. UCx on admission was negative. The daughter requested a urine culture since the urine looked abnormal to her.? No UA performed but UCx drawn 03/11 and growing proteus and pseudomonas each with >100K colonies; susceptibilities noted.?Related to chronic Braswell. Discussed with PharmD ID and abx changed to Cefepime with Augmentina nd Levaquin oral options at discharge. Discussed with dtr about removing Braswell due to now patient on dialysis and makes small amounts of urine and since Braswell placed originally for
[2024-03-19 17:06] LABS: Glucose Point of Care 119 mg/dl (65-105)
[2024-03-19 17:57] LABS: Influenza A QL RT-PCR Negative (Negative); Influenza B QL RT-PCR Negative (Negative); RSV RNA, RT-PCR Negative (Negative); SARS-CoV-2 RNA PCR Negative (Negative)
[2024-03-20 12:08] LABS: Angiotensin Converting Enzyme 29 U/L (9-67)
--- NOTE | 2024-03-21 09:43 | PC.NURSE ---
RADHA is WNL at 29. Dr. Wilkinson aware.
[2024-03-23 08:33] LABS: Vitamin A 54 mcg/dL (38-98)
--- NOTE | 2024-03-23 10:16 | PC.NURSE ---
Vitamin A is WNL at 54. Dr. Wilkinson aware.
== END 2024-03-19 18:25 | DRG 698 ==
LOC: ANHED 20:24 → ANH3MED 23:11 → ANHICU 02-27 20:13 → ANHIMU 03-09 13:18 → ANH3MEDSUR 03-10 12:20
PROVIDERS: General Practice; Internal Medicine; Internal Medicine Nephrology; Nurse Practitioner Family; Physician Assistant; Surgery; Admitting Provider Internal Medicine; Emergency Provider Emergency Medicine; PCP Internal Medicine; Visit Provider Internal Medicine
PROC: 02H633Z Insertion of Infusion Device into Right Atrium, Percutaneous Approach (ICD-10-PCS; CPT 36908; principal; 2024-02-28 12:00)
DX: T83.511A Infection and inflammatory reaction due to indwelling urethral catheter, initial encounter (principal); G93.41 Metabolic encephalopathy; J96.01 Acute respiratory failure with hypoxia; N18.6 End stage renal disease; F03.911 Unspecified dementia, unspecified severity, with agitation; N17.9 Acute kidney failure, unspecified; F03.918 Unspecified dementia, unspecified severity, with other behavioral disturbance; F05 Delirium due to known physiological condition; D47.Z2 Castleman disease; E87.21 Acute metabolic acidosis; I13.2 Hypertensive heart and chronic kidney disease with heart failure and with stage 5 chronic kidney disease, or end stage renal disease; I82.453 Acute embolism and thrombosis of peroneal vein, bilateral; I82.443 Acute embolism and thrombosis of tibial vein, bilateral; I50.9 Heart failure, unspecified; N39.0 Urinary tract infection, site not specified; B96.4 Proteus (mirabilis) (morganii) as the cause of diseases classified elsewhere; B96.5 Pseudomonas (aeruginosa) (mallei) (pseudomallei) as the cause of diseases classified elsewhere; E11.22 Type 2 diabetes mellitus with diabetic chronic kidney disease; R40.4 Transient alteration of awareness; I89.0 Lymphedema, not elsewhere classified; D50.9 Iron deficiency anemia, unspecified; D63.1 Anemia in chronic kidney disease; I48.91 Unspecified atrial fibrillation; E78.5 Hyperlipidemia, unspecified; T17.990A Other foreign object in respiratory tract, part unspecified in causing asphyxiation, initial encounter; G47.33 Obstructive sleep apnea (adult) (pediatric); E78.2 Mixed hyperlipidemia; M81.0 Age-related osteoporosis without current pathological fracture; E83.52 Hypercalcemia; N32.81 Overactive bladder; I71.20 Thoracic aortic aneurysm, without rupture, unspecified; E04.1 Nontoxic single thyroid nodule; Z85.3 Personal history of malignant neoplasm of breast; Z87.442 Personal history of urinary calculi; Z96.1 Presence of intraocular lens; Z98.41 Cataract extraction status, right eye; Z79.01 Long term (current) use of anticoagulants; Z99.2 Dependence on renal dialysis; Z20.822 Contact with and (suspected) exposure to COVID-19; R13.10 Dysphagia, unspecified
CPT/HCPCS: 36415; 36569; 36600; 70450; 71045; 74176; 77001; 80048; 80053; 80069; 80202; 81001; 82140; 82164; 82306; 82330; 82375; 82550; 82570; 82607; 82805; 82948; 83050; 83605; 83735; 83883; 83970; 84100; 84145; 84155; 84156; 84165; 84166; 84443; 84484; 84590; 85025; 85027; 85055; 85610; 85730; 86023; 86334; 86335; 86704; 86706; 87040; 87077; 87086; 87088; 87186; 87340; 87637; 87641; 92610; 93005; 93306; 93970; 94002; 94003; 99285; A9270; C1750; G0257; J0630; J0692; J0696; J1644; J1815; J2060; J2185; J2250; J2405; J2430; J2997; J3010; J3370; J7030; J7060; J7070; P9047; Q5105

== ENCOUNTER 2024-11-05 07:04 | Emergency (ER) | payer MEDICARE, SELFPAY ==
[2024-11-05] VITALS (11 sets, daily range): BP systolic 132–173; BP diastolic 83–98; PULSE 84–115; RESP 13–101; TEMP 36.8; O2SAT 96–100
--- NOTE | ~2024-11-05 | XR_ITS ---
Portable chest x-ray Comparison: 03/08/2024 Clinical History: Weakness Findings: Right-sided central venous line is unchanged. There is central congestive change and proba ble mild pulmonary edema. Cardiomediastinal silhouette is stable. Bones and soft tissues are unremar kable. Impression: Central congestive change and probable mild pulmonary edema. Support tubes, as above. Reviewed, dictated and finalized at location . [employer]ION TE[employer]ER Impression: Central congestive change and probable mild pulmonary edema. Support tubes, as above.
--- NOTE | 2024-11-05 07:15 | ECG_ITS ---
Test Date: 2024-11-05 07:08:20 Measurements Intervals Smiley Rate: 102 P: 0 [place]: 0 QRS: -22 QRSD: 118 T: 48 QT: 360 QTc: 471 Interpretive Statements ATRIAL FIBRILLATION WITH RAPID VENTRICULAR RESPONSE WITH ABERRANT CONDUCTION OR VENTRICULAR PREMATURE COMPLEXES BORDERLINE LEFT AXIS DEVIATION [QRS AXIS < -20] MODERATE INTRAVENTRICULAR CONDUCTION DELAY [110+ ms QRS DURATION] ABNORMAL RHYTHM ECG No previous ECG available for comparison Electronically Signed On 11-05-2024 21:52:36 MACHINE I CUTTER by Fausto Contreras M.D.
--- NOTE | 2024-11-05 07:25 | ED.SOB ---
HPI - SOB/Dyspnea General Chief Complaint: Shortness of Breath/Dyspnea Stated Complaint: SOB Time Seen by Provider: 11/05/24 07:19 Source: patient History of Present Illness HPI Narrative: 89 years old white female came from skilled nursing by ambulance with her daughter who is telling me that patient been coughing for almost 1 week, nasal congestion, postnasal discharge has been on [id number] medications without improvement. Started on antibiotic once a day yesterday by her family physician and nebulizer treatment. Patient is supposed to go to dialysis today at 10:00 a.m.. Patient denies any fever or chills or nausea or vomiting or chest pain or shortness of breath. Patient on Eliquis for atrial fibrillation. Related Data Home Medications ?Medication ?Instructions ?Recorded ?Confirmed ?Last Taken ?Type cyanocobalamin (vitamin B-12) 1,000 mcg PO DAILY 08/18/20 09/04/24 02/16/22 History 1,000 mcg tablet ferrous sulfate 324 mg (65 mg 324 mg PO EVERY OTHER DAY 01/11/22 09/04/24 02/16/22 History iron) tablet,delayed release cranberry 500 mg capsule 500 mg PO DAILY 01/16/24 09/04/24 Unknown History fluconazole 150 mg tablet 150 mg PO WEEKLY 04/24/24 09/04/24 Unknown History acetaminophen 325 mg tablet 325 mg PO Q4H PRN 06/13/24 09/04/24 Unknown History ondansetron 4 mg disintegrating 4 mg PO Q6H PRN 09/04/24 09/04/24 Unknown History tablet apixaban 5 mg tablet (Eliquis) 5 mg PO BID 09/27/24 Unknown History Allergies Allergy/AdvReac Type Severity Reaction Status Date / Time Sulfa (Sulfonamide Allergy Severe Rash Verified 11/05/24 07:30 Antibiotics) bupropion (From Wellbutrin) Allergy Intermediate Unknown Verified 11/05/24 07:30 Review of Systems Review of Systems: All systems reviewed & are unremarkable except as noted in HPI and below PMFSH Past Medical History Medical History Encounter for Medicare annual wellness exam Anxiety Frequent UTI Chronic kidney disease (CKD), stage V BMI 38.0-38.9,adult Chronic back pain Seasonal allergies Hypercalcemia Hyperactivity of bladder Cataract of right eye CHELSEA on CPAP Intolerant to CPAP Narcolepsy Poorly documented Fatigue CHF (congestive heart failure) Echocardiogram 2021 from [facility]: Left ventricular size mildly enlarged left ventricular systolic function moderately depressed with EF of 35-40%, mild concentric left ventricular hypertrophy, diastolic dysfunction indeterminate due to AFib, moderate global hypokinesis, moderate right ventricular enlargement with normal right ventricular systolic function, severe left atrial volume overload greater than 48 mL, moderate right atrial enlargement, mildly dilated aortic root mild aortic regurgitation Dementia Depression Chronic UTI Knee pain Thoracic aortic aneurysm Vitamin B12 deficiency UTI (urinary tract infection) Constipation History of orthostatic hypotension Left ventricular outflow obstruction echocardiogram May 2020 Stress incontinence in female Osteoporosis DEXA scan 08/14/2020 BMI 34.0-34.9,adult Hearing loss of both ears Vitamin D deficiency Carotid bruit less than 50% stenosis of right internal carotid artery a on Doppler 07/01/2020 BMI 35.0-35.9,adult Kidney stones of the left kidney with multiple lithotripsies Cancer of right breast status post radiation and chemotherapy Thyroid nodule (~2014) Overactive bladder A-fib Hyperlipidemia 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 DM type 2 (diabetes mellitus, type 2) (~2018) Benign essential hypertension Surgical History Surgical History Status post right cataract extraction Status post cataract extraction and insertion of intraocular lens of right eye Status post right breast lumpectomy Family History Family History Sibling Cerebrovascular accident Diabetes mellitus Father Diabetes mellitus CHF (congestive heart failure) Kidney failure Mother Cervical cancer Ovarian cancer Sibling Cerebrovascular accident Hypertension Diabetes mellitus Brain bleed Social History Social History Social History: The patient lives with her 46-year-old daughter. She is . She is a lifelong nonsmoker and does not drink alcohol or use illicit substances. She is retired from the [employer]. Primary care physician: Dr. Carl Maloney code status: Full code Surrogate decision maker: Daughter Smoking status: Never smoker Second hand tobacco smoke exposure: No Alcohol intake: never Substance use: never Substance use type: does not use Do You Feel Safe in your Home?: Yes Lack of Transportation: No Lack of Food: Never True Current Housing: I Have Housing Concerned About Future Housing: No Difficulty Paying Gas/Electric Bills: No Difficulty Paying for Meds: No Currently Unemployed: No Education: High School Diploma/GED Difficulty w/ Childcare or Family Care: No Living arrangements: skilled nursing Occupation/Education: retired 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 Gender identity (if verbalized by the patient): Female Spiritual care concerns: No Exam Narrative: General appearance: Well-developed, well-nourished does not look in pain or distress or trouble breathing Skin: Normal color Head: Normocephalic, nontraumatic Eyes: Clear conjunctiva ENT: Oropharynx normal, ears normal, nose normal Neck: Supple, nontender Chest and respiratory: Airway patent, no respiratory distress, no accessory muscle use Heart: Irregular irregularity Abdomen: Soft, nontender, no organomegaly, quiet bowel sounds Musculoskeletal: Normal range of motion, nontender back Neurologic: Alert and oriented ?3 Course Vital Signs Vital signs: Vital Signs Temperature 36.8 C 11/05/24 07:02 Pulse Rate 97 11/05/24 07:02 Respiratory Rate 14 11/05/24 07:02 Pulse Oximetry 98 11/05/24 07:02 Oxygen Delivery Room Air 11/05/24 07:02 Temperature 36.8 C 11/05/24 07:02 Pulse Rate 96 11/05/24 07:19 Respiratory Rate 20 11/05/24 07:19 Blood Pressure 147/85 H 11/05/24 07:19 Pulse Oximetry 96 11/05/24 07:19 Oxygen Delivery Room Air 11/05/24 07:02 MDM - SOB/Dyspnea MDM Narrative Medical decision making narrative: Patient came to the ED from skilled nursing with upper respiratory viral infection like symptoms started on antibiotic yesterday Vital signs are stable Physical examination as above Differential diagnosis upper respiratory viral infection, pneumonia, CHF, patient on hemodialysis and supposed to go there today Blood workup today includes CBC, CMP showed BUN of 61, creatinine 4.6 consistent with previous readings, pro B and P more than 30,000 patient on dialysis EKG on arrival showed atrial fibrillation with RVR at 1 or 2 beat per minute, no new changes compared to the previous EKG Chest x-ray showed mild pulmonary edema Patient tested negative for COVID, flu and RSV Patient is scheduled for dialysis today at 10:30 a.m.. I believe patient pulmonary edema will improve after getting dialysis today. Differential Diagnosis Differential diagnosis: Likely other (As above) Medical Records Attestation: I reviewed the patient's medical records. Lab Data Attestation: I reviewed the patient's lab results. 11/05/24 07:23 11/05/24 07:23 Labs: Lab Results 11/05/24 11/05/24 Range/Units 07:23 07:50 WBC 4.6 (4.5-10.0) K/mm3 RBC 3.19 L (4.2-5.4) M/mm3 Hgb 10.1 L (12.0-15.0) g/dL Hct 31.8 L (37.0-47.0) % MCV 99.7 (80-100) fl MCH 31.7 (26-34) pg MCHC 31.8 L (32-36) g/dl RDW 14.1 (11.5-14.5) % Plt Count 174 (150-375) k/mm3 MPV 10.0 (7.4-10.4) fl Immature Gran % (Auto) 0.4 (0-0.5) % Neut % (Auto) 76.2 H (45.5-73.1) % Lymph % (Auto) 12.6 L (18.3-44.2) % [place] % (Auto) 10.4 H (2.6-8.5) % Eos % (Auto) 0.2 (0-4.4) % Baso % (Auto) 0.2 (0.2-1.2) % Lymph # (Auto) 0.58 L (0.9-3.2) K/mm3 [place] # (Auto) 0.5 (0.1-0.6) K/mm3 Eos # (Auto) 0.0 (0-0.3) K/mm3 Baso # (Auto) 0.0 (0.0-0.1) K/mm3 Abs Immat Gran (auto) 0.02 (0.00-0.031) K/mm3 Absolute Neuts (auto) 3.5 (1.3-6.7) K/mm3 Absolute Nucleated RBC 0.000 (0.0-0.012) K/mm3 Nucleated RBC % 0.0 (0.0-0.2) % Sodium 135 L (137-145) mmol/L Potassium 4.3 (3.4-5.0) mmol/L Chloride 100 (98-107) mmol/L Carbon Dioxide 25 (22-30) mmol/L Anion Gap 10 (4-12) mmol/L BUN 61 H (7-17) mg/dL Creatinine 4.62 H (0.7-1.0) mg/dL Estim Creat Clear Calc 12 ml/min Estimated GFR 9 L (59 - ) Glucose 146 H (65-110) mg/dL Calcium 9.8 (8.4-10.2) mg/dL Total Bilirubin 0.9 (0.2-1.3) mg/dL AST 15 (14-36) U/L ALT 11 (6-35) U/L Alkaline Phosphatase 83 (38-126) U/L NT-Pro-B Natriuret Pep > 97513 H (19.9-100) pg/mL Total Protein 7.0 (6.3-8.2) g/dL Albumin 3.6 (3.5-5.1) g/dL Influenza A (RT-PCR) Negative (Negative) Influenza B (RT-PCR) Negative (Negative) RSV (RT-PCR) Negative (Negative) SARS-CoV-2 RNA (RT-PCR) Negative (Negative) ABG Data ABG results: 11/05/24 08:41 Puncture Site Right radial ABG pH 7.369 ABG pCO2 42.0 ABG pO2 67.7 L ABG PO2/FiO2 Ratio 3.22 ABG HCO3 23.7 ABG O2 Saturation 93.0 L ABG O2 Content Not Reportable ABG Base Excess -1.6 A-a Gradient 31.7 Oxyhemoglobin Not Reportable Total Hemoglobin Not Reportable O2 Delivery Device Room air O2 Liters/Min Not Reportable FiO2 21 Attestation: I personally reviewed and interpreted this ABG as follows: (Oxygen saturation on room air 93%.) Imaging Data Radiologist's impression: Impressions Chest X-Ray 11/05/24 07:44 Impression: Central congestive change and probable mild pulmonary edema. Support tubes, as above. Critical Care Time Critical Care Time Critical Care Time: No Discharge Plan Discharge Clinical Impression: Pulmonary edema, Hemodialysis status Patient Disposition: NH Skilled Nursing/Asst Living Condition: Stable Instructions: Pulmonary Edema (ED), Hemodialysis (DC) Additional Instructions: Go to dialysis center immediately Continue home medications Patient Language: [place] Prescriptions: No Action cyanocobalamin (vitamin B-12) 1,000 mcg tablet 1,000 mcg PO DAILY ferrous sulfate 324 mg (65 mg iron) tablet,delayed release (DR/EC) 324 mg PO EVERY OTHER DAY ondansetron 4 mg tablet,disintegrating 4 mg PO Q6H PRN buspirone 5 mg tablet 5 mg PO TID Qty: 90 5RF sertraline 25 mg tablet 25 mg PO DAILY Qty: 90 1RF fluconazole 150 mg tablet 150 mg PO WEEKLY (DME) FreeStyle Robbi 14 Day Sensor Kit See Rx Instructions .Route Qty: 1 5RF Rx Instructions: As directed (DME) FreeStyle Robbi 2 Sensor Kit See Rx Instructions .Route Qty: 1 11RF Rx Instructions: As directed cranberry 500 mg capsule 500 mg PO DAILY Rx Instructions: administer with meals nitroglycerin 0.4 mg tablet, sublingual 0.4 mg sublingual Q5M PRN (Reason: Chest Pain) Qty: 25 2RF Rx Instructions: do not exceed 3 doses per episode insulin aspart U-100 [Novolog U-100 Insulin aspart] 100 unit/mL solution See Rx Instructions subcut .COMPLEX Qty: 10 0RF Rx Instructions: SSI: 200-250=4 units, 251-300=8 units, 301-350=10 units, 351-400=12 units, greater than 400=12 units subcutaneously; doxycycline hyclate 100 mg tablet See Rx Instructions .ROUTE .COMPLEX Qty: 7 0RF Rx Instructions: Take 1 tablet after dialysis treatment for a total of 7 doses; (DME) FreeStyle Robbi 3 Sensor Device See Rx Instructions .Route Qty: 1 0RF Rx Instructions: As directed (DME) pen needle, diabetic [BD Lindsay 2nd Gen Pen Needle] 32 gauge x 5/32 needle See Rx Instructions .ROUTE .COMPLEX Qty: 100 1RF Dose Instruction: USE TO INJECT ONCE DAILY Rx Instructions: USE TO INJECT ONCE DAILY acetaminophen 325 mg tablet 325 mg PO Q4H PRN metoprolol tartrate 25 mg tablet 25 mg PO Q12HR Qty: 180 1RF zolpidem [Ambien] 5 mg tablet 5 mg PO QHS Qty: 90 0RF ceftriaxone 500 mg recon soln 500 mg IM .QOD Qty: 1 0RF Rx Instructions: Inject 500mg every other day for total of 5 doses. Then stop aripiprazole 2 mg tablet See Rx Instructions .ROUTE .COMPLEX Qty: 100 0RF Dose Instruction: TAKE 1 AND 1/2 TABLETS BY MOUTH AT BEDTIME Rx Instructions: TAKE 1 AND 1/2 TABLETS BY MOUTH AT BEDTIME (DME) RSV Vaccination See Rx Instructions .Route .MEDSUPPLY Qty: 1 0RF Rx Instructions: RSV Vaccination; Immunization Update Dx: Z23 rosuvastatin 10 mg tablet 10 mg PO DAILY Qty: 90 0RF Eliquis 5 mg tablet 5 mg PO BID insulin glargine [Basaglar KwikPen U-100 Insulin] 100 unit/mL (3 mL) insulin pen 25 unit subcut QAM Qty: 15 0RF methylphenidate HCl 10 mg tablet 10 mg PO BIDWMEAL Qty: 60 0RF Rx Instructions: breakfast and lunch doxycycline hyclate 100 mg capsule See Rx Instructions PO .COMPLEX Qty: 5 0RF Rx Instructions: orally take 1 capsule after each dialysis treatment for a total of 5 doses; Follow-up/Referrals: Carl Maloney MD [Primary Care Provider] -
[2024-11-05 07:34] LABS: Basophils Percent Auto 0.2 % (0.2-1.2); Eosinophils Percent Auto 0.2 % (0-4.4); Hematocrit 31.8 % (37.0-47.0); Hemoglobin 10.1 g/dL (12.0-15.0); Immature Granulocyte Absolute 0.02 K/mm3 (0.00-0.031); Immature Granulocyte Percent A 0.4 % (0-0.5); Lymphocytes Absolute Auto 0.58 K/mm3 (0.9-3.2); Lymphocytes Percent Auto 12.6 % (18.3-44.2); Mean Corpuscular HGB Conc 31.8 g/dl (32-36); Mean Corpuscular Hemoglobin 31.7 pg (26-34); Mean Corpuscular Volume 99.7 fl (80-100); Monocytes Absolute Auto 0.5 K/mm3 (0.1-0.6); Monocytes Percent Auto 10.4 % (2.6-8.5); Neutrophils Absolute Auto 3.5 K/mm3 (1.3-6.7); Neutrophils Percent Auto 76.2 % (45.5-73.1); Platelet Count Result 174 k/mm3 (150-375); Red Blood Count 3.19 M/mm3 (4.2-5.4); Red Cell Distribution Width 14.1 % (11.5-14.5); White Blood Count 4.6 K/mm3 (4.5-10.0)
[2024-11-05 07:47] LABS: Alanine Aminotransferase 11 U/L (6-35); Albumin Level 3.6 g/dL (3.5-5.1); Alkaline Phosphatase 83 U/L (38-126); Anion Gap 10 mmol/L (4-12); Aspartate Amino Transferase 15 U/L (14-36); Bilirubin,Total 0.9 mg/dL (0.2-1.3); Blood Urea Nitrogen 61 mg/dL (7-17); Calcium 9.8 mg/dL (8.4-10.2); Carbon Dioxide 25 mmol/L (22-30); Chloride 100 mmol/L (98-107); Estimated CRCL calculation 12 ml/min; Estimated Glomerular Filt Rate 9; Glucose 146 mg/dL (65-110); Potassium 4.3 mmol/L (3.4-5.0); Sodium 135 mmol/L (137-145)
--- NOTE | 2024-11-05 08:13 | PC.NURSE ---
Patient has become more tired upon arriving to the ED. Patient will answer all questions, but is having trouble staying awake. Spoke with provider and ABG has been ordered.
[2024-11-05 08:31] LABS: Influenza A QL RT-PCR Negative (Negative); Influenza B QL RT-PCR Negative (Negative); RSV RNA, RT-PCR Negative (Negative); SARS-CoV-2 RNA PCR Negative (Negative)
[2024-11-05 08:43] LABS: NT Pro B Type Natriuretic Pept > 30000 pg/mL (19.9-100)
[2024-11-05 08:44] LABS: Alveolar/Arterial O2 Gradient 31.7 mmHg; Base Excess ABG -1.6 mEq/l (+/-2.0); Fractional Inspired Oxygen 21 %; HCO3 ABG 23.7 mEq/l (22.0-26.0); PO2 ABG 67.7 mmHg (80.0-100.0); PO2 FiO2 Ratio Arterial Blood 3.22 %; pH ABG 7.369 (7.350-7.450)
[2024-11-05 08:47] LABS: Device ROOM AIR; Modified Allen's Test Pass; Site Drawn RIGHT RADIAL
--- NOTE | 2024-11-05 10:40 | PC.NURSE ---
Attempted to call report to facility with no answer. Was on hold for 9 minutes.
== END 2024-11-05 10:41 ==
PROVIDERS: Emergency Provider Emergency Medicine; PCP Internal Medicine
DX: J81.1 Chronic pulmonary edema (principal); Z79.01 Long term (current) use of anticoagulants; I48.91 Unspecified atrial fibrillation; N18.5 Chronic kidney disease, stage 5; G47.33 Obstructive sleep apnea (adult) (pediatric); Z99.89 Dependence on other enabling machines and devices; I50.30 Unspecified diastolic (congestive) heart failure; E53.8 Deficiency of other specified B group vitamins; M81.0 Age-related osteoporosis without current pathological fracture; E55.9 Vitamin D deficiency, unspecified; Z85.3 Personal history of malignant neoplasm of breast; E78.5 Hyperlipidemia, unspecified; D47.Z2 Castleman disease; I13.2 Hypertensive heart and chronic kidney disease with heart failure and with stage 5 chronic kidney disease, or end stage renal disease; Z99.2 Dependence on renal dialysis; Z20.822 Contact with and (suspected) exposure to COVID-19
CPT/HCPCS: 36415; 36600; 71045; 80053; 82805; 83880; 85018; 85025; 87637; 93005; 99284

== ENCOUNTER 2025-07-05 20:04 | Inpatient (IN) | payer MEDICARE, OTHER, SELFPAY ==
--- NOTE | ~2025-07-05 | XR_ITS ---
Examination: XR chest 1V portable Clinical History: SOB Comparison: 07/05/2025 Technique: Portable AP Findings: Right permacath. Cardiomegaly. Mild bibasilar atelectasis. Mild interstitial markings No sizable effusion or pneumothorax. No acute bony abnormality. IMPRESSION: 1. No significant change or worsening. 2. Mild interstitial pulmonary edema. Reviewed, dictated and finalized at location R.
--- NOTE | ~2025-07-05 | US_ITS ---
US venous doppler [facility] - 07/09/2025 15:36 CDT History: 80 years old Female with bilateral lower extremity pain and swelling. FINDINGS/ IMPRESSION: Patient refused examination. Nondiagnostic study. Reviewed, dictated and finalized at location N.
--- NOTE | ~2025-07-05 | XR_ITS ---
XR chest 1V portable 07/05/2025 20:36 Indication: Infection Procedure: AP portable chest Comparison: Comparison to multiple prior studies sequentially, with oldest reviewed study dated 03/06/2024. Findings: Cardiomegaly with mild interstitial edema. No significant effusion. No pneumothorax. Central venous catheter tips in the right atrium. Impression: 1: Cardiomegaly with mild interstitial edema. Reviewed, dictated and finalized at location O. Impression: 1: Cardiomegaly with mild interstitial edema.
[2025-07-05 20:02] VITALS: BP 93/56; PULSE 104; RESP 20; TEMP 36.7; O2SAT 95
[2025-07-05 21:16] LABS: Hematocrit 31.3 % (37.0-47.0); Hemoglobin 9.5 g/dL (12.0-15.0); Immature Granulocyte Percent A 0.6 % (0-0.5); Lymphocytes Absolute Auto 0.73 K/mm3 (0.9-3.2); Mean Corpuscular HGB Conc 30.4 g/dl (32-36); Mean Corpuscular Hemoglobin 29.6 pg (26-34); Mean Corpuscular Volume 97.5 fl (80-100); Nucleated Red Blood Cells Absolute Auto 0.000 K/mm3 (0.0-0.012); Nucleated Red Blood Cells Perc 0.0 % (0.0-0.2); Platelet Count Result 242 k/mm3 (150-375); Red Blood Count 3.21 M/mm3 (4.2-5.4); White Blood Count 11.8 K/mm3 (4.5-10.0)
[2025-07-05] MEDS: SODIUM CHLORIDE 0.9% IV 1,000 ML 999 ML IV CONT (21:27)
--- NOTE | 2025-07-05 21:59 | ED.GENADULT ---
HPI - General Adult General Chief complaint: Weakness Stated complaint: WEAKNESS, NAUSEA S/P HD TREATMENT Time Seen by Provider: 07/05/25 20:22 History of Present Illness HPI narrative: Patient is a 80-year-old female who presents emergency department this evening from local alf facility complaining of nausea and vomiting, generalized weakness and feeling generally unwell. Daughter is present with the patient at bedside. Patient has a past medical history of end-stage renal disease on hemodialysis MWF and had her dialysis today which she had 3 L removed. Daughter also states that they have the patient on a fluid restriction diet of 1 L per day. Daughter states that the nausea and vomiting after dialysis session is usually normal for the patient, however, patient just feels generally weak today. She was also noted to be hypotensive with a blood pressure ranging in the 70s to 80s systolic. Per daughter, patient systolic blood pressure usually runs in the 90s to 100. Otherwise patient denies any specific symptoms including chest pain, shortness of breath, or abdominal pain. Patient does have a chronic indwelling Braswell catheter secondary to history of stress urinary incontinence. Related Data Home Medications ?Medication ?Instructions ?Recorded ?Confirmed ?Last Taken ?Type cyanocobalamin (vitamin B-12) 1,000 mcg PO DAILY 08/18/20 04/30/25 02/16/22 History 1,000 mcg tablet ferrous sulfate 324 mg (65 mg 324 mg PO EVERY OTHER DAY 01/11/22 04/30/25 02/16/22 History iron) tablet,delayed release cranberry 500 mg capsule 500 mg PO DAILY 01/16/24 04/30/25 Unknown History fluconazole 150 mg tablet 150 mg PO WEEKLY 04/24/24 04/30/25 Unknown History ondansetron 4 mg disintegrating 4 mg PO Q6H PRN 09/04/24 04/30/25 Unknown History tablet dextromethorphan-guaifenesin ER 60 1 tablet PO Q12H PRN 11/21/24 04/30/25 Unknown History mg-1,200 mg tab,extend release,12hr (Mucinex DM) acetaminophen 500 mg capsule 500 mg PO Q6H PRN 02/26/25 04/30/25 Unknown History docusate sodium 100 mg capsule 100 mg PO BID 02/26/25 04/30/25 Unknown History Allergies Allergy/AdvReac Type Severity Reaction Status Date / Time Sulfa (Sulfonamide Allergy Severe Rash Verified 01/17/25 14:55 Antibiotics) bupropion (From Wellbutrin) Allergy Intermediate Unknown Verified 01/17/25 14:55 Review of Systems Review of Systems: All systems are reviewed and are negative unless stated otherwise in the HPI. [facility] Past Medical History Medical History Pedal edema BMI 39.0-39.9,adult BMI 37.0-37.9, adult Encounter for Medicare annual wellness exam Anxiety Frequent UTI Chronic kidney disease (CKD), stage V BMI 38.0-38.9,adult Chronic back pain Seasonal allergies Hypercalcemia Hyperactivity of bladder Cataract of right eye CHELSEA on CPAP Intolerant to CPAP Narcolepsy Poorly documented Fatigue CHF (congestive heart failure) Echocardiogram 2021 from [facility]: Left ventricular size mildly enlarged left ventricular systolic function moderately depressed with EF of 35-40%, mild concentric left ventricular hypertrophy, diastolic dysfunction indeterminate due to AFib, moderate global hypokinesis, moderate right ventricular enlargement with normal right ventricular systolic function, severe left atrial volume overload greater than 48 mL, moderate right atrial enlargement, mildly dilated aortic root mild aortic regurgitation Dementia Depression Knee pain Thoracic aortic aneurysm Vitamin B12 deficiency UTI (urinary tract infection) Constipation History of orthostatic hypotension Left ventricular outflow obstruction echocardiogram May 2020 Stress incontinence in female Osteoporosis DEXA scan 08/14/2020 BMI 34.0-34.9,adult Hearing loss of both ears Vitamin D deficiency Carotid bruit less than 50% stenosis of right internal carotid artery a on Doppler 07/01/2020 BMI 35.0-35.9,adult Kidney stones of the left kidney with multiple lithotripsies Cancer of right breast status post radiation and chemotherapy Thyroid nodule (~2014) Overactive bladder A-fib Hyperlipidemia 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 DM type 2 (diabetes mellitus, type 2) (~2018) Benign essential hypertension Surgical History Surgical History Status post right cataract extraction Status post cataract extraction and insertion of intraocular lens of right eye Status post right breast lumpectomy Family History Family History Sibling Cerebrovascular accident Diabetes mellitus Father Diabetes mellitus CHF (congestive heart failure) Kidney failure Mother Cervical cancer Ovarian cancer Sibling Cerebrovascular accident Hypertension Diabetes mellitus Brain bleed Social History Social History Social History: The patient lives with her 46-year-old daughter. She is . She is a lifelong nonsmoker and does not drink alcohol or use illicit substances. She is retired from the [employer]. Primary care physician: Dr. Carl Maloney code status: Full code Surrogate decision maker: Daughter Smoking status: Never smoker Second hand tobacco smoke exposure: No Alcohol intake: never Substance use: never Substance use type: does not use Do You Feel Safe in your Home?: Yes Lack of Transportation: No Lack of Food: Never True Current Housing: I Have Housing Concerned About Future Housing: No Difficulty Paying Gas/Electric Bills: No Difficulty Paying for Meds: No Currently Unemployed: No Education: High School Diploma/GED Difficulty w/ Childcare or Family Care: No Living arrangements: alf Occupation/Education: retired 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 Gender identity (if verbalized by the patient): Female Spiritual care concerns: No Exam Narrative: General: Alert, awake, afebrile, in no acute distress. HEENT: PERRL, no rhinorrhea, no post nasal drip, oropharynx clear. Neck: Trachea midline, no JVD, no lymphadenopathy. Cardiovascular: Tachycardic with regular rhythm, no murmurs, rubs or gallops, no peripheral edema. Respiratory: Clear to auscultation bilaterally, no tachypnea, no wheezing, no rhonchi, no rubs, no respiratory distress. Abdomen: Soft, nontender, nondistended, no rebound, no guarding, no peritoneal signs. Musculoskeletal: No joint swelling or deformity, normal muscle tone. Skin: No rashes or petechia, no signs of infection. Psychiatric: Alert and oriented, normal behavior and judgment for situation. Neurological: Alert and oriented to person, place, and time. Follows all commands. No focal deficits, speech is clear and fluent. Course Vital Signs Vital signs: Vital Signs Temperature 98.0 F 07/05/25 20:02 Pulse Rate 104 H 07/05/25 20:02 Respiratory Rate 20 07/05/25 20:02 Blood Pressure 93/56 L 07/05/25 20:02 Pulse Oximetry 95 07/05/25 20:02 Oxygen Delivery Room Air 07/05/25 20:02 Temperature 98.0 F 07/05/25 20:02 Pulse Rate 104 H 07/05/25 20:02 Respiratory Rate 20 07/05/25 20:02 Blood Pressure 93/56 L 07/05/25 20:02 Pulse Oximetry 95 07/05/25 20:02 Oxygen Delivery Room Air 07/05/25 20:02 Medical Decision Making MDM Narrative Medical decision making narrative: The patient was evaluated by myself in the emergency department. History is obtained from patient who is an independent historian and physical exam was performed. External medical records were reviewed at this time. IV was established and pertinent tests were ordered. Patient was administered a 500 cc IV fluid bolus due to concern for hypotension. Given that the patient is a dialysis patient, she is limited to 1 L IV fluid restriction per day. Repeat blood pressure 96/57 mmHg with a map of 70. Laboratory results obtained revealing leukocytosis of 11.8, hemoglobin 9.5 which is around patient's baseline. He BUN 37 and creatinine 3.58 also around patient's baseline. Initial lactic acid 2.5, repeat lactic acid 2.1 after 500 cc IV fluid bolus. Urinalysis did reveal urinary tract infection. Patient was administered 1 g of IV Rocephin at this time. Urinalysis was obtained from Braswell bag as a clean sample was not obtained at this time since we were unsuccessful in placing a new Braswell catheter after removing the old 1 which has been in place for over 3 weeks. Patient with the cooperative with examination due to pain and at this time family members do not want us to attempt another Braswell placement. Urine culture pending. Imaging studies obtained included CXR which was independently interpreted by me revealing: Impression: 1: Cardiomegaly with mild interstitial edema. Differential diagnosis considerations include dehydration, electrolyte derangements, acute viral syndrome, gastroenteritis. Comorbidities impacting this visit include end-stage renal disease on HD. I have evaluated and discussed social determinants of health with the patient that could potentially impact subsequent diagnosis and treatment plans. On repeat assessment of the patient, reevaluation revealed that the patient is doing well and is in no acute distress. Patient symptoms have improved since she arrived to our emergency department. Repeat vital signs were all reviewed and noted to be stable. Differential diagnosis and treatment plan were discussed with the patient at bedside. Patient agrees with discussion and after shared medical decision making agrees with admission. All questions were answered to the patient's satisfaction. Case was discussed with the on-call hospitalist Dr. Flores at 0045 and she accepted admission. Critical care time of 37 minutes, exclusive of separately performed procedures, necessary for treating or preventing eminent or life-threatening deterioration of patient's condition of sepsis, focused on patient care provided personally by me and time spent during initial evaluation, physical examination, ordering and performing treatments and interventions, ordering and reviewing laboratory studies, ordering and reviewing radiographic studies, re-evaluation of the patient's condition, evaluation of the patient's response to treatment, and discussion of patient case with multiple consultants. Vital Signs Vital Signs: Vital Signs Temperature 98.0 F 07/05/25 20:02 Pulse Rate 104 H 07/05/25 20:02 Respiratory Rate 20 07/05/25 20:02 Blood Pressure 93/56 L 07/05/25 20:02 Pulse Oximetry 95 07/05/25 20:02 Oxygen Delivery Room Air 07/05/25 20:02 Temperature 98.0 F 07/05/25 20:02 Pulse Rate 104 H 07/05/25 20:02 Respiratory Rate 20 07/05/25 20:02 Blood Pressure 93/56 L 07/05/25 20:02 Pulse Oximetry 95 07/05/25 20:02 Oxygen Delivery Room Air 07/05/25 20:02 Lab Data 07/05/25 21:09 07/05/25 22:16 Labs: Lab Results 07/05/25 07/05/25 07/05/25 Range/Units 21:09 22:16 22:32 WBC 11.8 H (4.5-10.0) K/mm3 RBC 3.21 L (4.2-5.4) M/mm3 Hgb 9.5 L (12.0-15.0) g/dL Hct 31.3 L (37.0-47.0) % MCV 97.5 (80-100) fl MCH 29.6 (26-34) pg MCHC 30.4 L (32-36) g/dl RDW 14.9 H (11.5-14.5) % Plt Count 242 (150-375) k/mm3 MPV 9.9 (7.4-10.4) fl Immature Gran % (Auto) 0.6 H (0-0.5) % Neut % (Auto) 88.1 H (45.5-73.1) % Lymph % (Auto) 6.2 L (18.3-44.2) % [place] % (Auto) 4.4 (2.6-8.5) % Eos % (Auto) 0.4 (0-4.4) % Baso % (Auto) 0.3 (0.2-1.2) % Lymph # (Auto) 0.73 L (0.9-3.2) K/mm3 [place] # (Auto) 0.5 (0.1-0.6) K/mm3 Eos # (Auto) 0.1 (0-0.3) K/mm3 Baso # (Auto) 0.0 (0.0-0.1) K/mm3 Abs Immat Gran (auto) 0.07 H (0.00-0.031) K/mm3 Absolute Neuts (auto) 10.4 H (1.3-6.7) K/mm3 Absolute Nucleated RBC 0.000 (0.0-0.012) K/mm3 Nucleated RBC % 0.0 (0.0-0.2) % Sodium 132 L (137-145) mmol/L Potassium 4.5 (3.4-5.0) mmol/L Chloride 95 L (98-107) mmol/L Carbon Dioxide 24 (22-30) mmol/L Anion Gap 13 H (4-12) mmol/L BUN 37 H D (7-17) mg/dL Creatinine 3.58 H (0.7-1.0) mg/dL Estim Creat Clear Calc 16 ml/min Estimated GFR 12 L (59 - ) Glucose 259 H (65-110) mg/dL Lactic Acid 2.5 H (0.7-2.0) mmol/L Calcium 9.5 (8.4-10.2) mg/dL Magnesium 1.9 (1.6-2.3) mg/dL Total Bilirubin 1.0 (0.2-1.3) mg/dL AST 18 (14-36) U/L ALT 14 (6-35) U/L Alkaline Phosphatase 160 H (38-126) U/L Total Protein 6.4 (6.3-8.2) g/dL Albumin 3.3 L (3.5-5.1) g/dL Lipase 86 (23-300) U/L Urine Color (Yellow) Urine Appearance (Clear) Urine pH (5.0-9.0) Ur Specific [place] (1.001-1.035) Urine Protein (Negative) mg/dL Urine Glucose (UA) (Negative) mg/dL Urine Ketones (Negative) mg/dL Ur Blood (Man) (Negative) Urine Nitrate (Negative) Urine Bilirubin (Negative) Urine Urobilinogen (<2.0) mg/dL Add Ur Microanalysis Leukocyte Esterase Rfl (Negative) HANS/UL Urine RBC (0-2) /hpf Urine WBC (0-3) /hpf Ur Squamous Epith Cells (Few) /hpf Triple Phos Crystals (None) /hpf Urine Bacteria /hpf Urine Casts Urine Mucus /lpf Influenza A (RT-PCR) Negative (Negative) Influenza B (RT-PCR) Negative (Negative) RSV (RT-PCR) Negative (Negative) SARS-CoV-2 RNA (RT-PCR) Negative (Negative) 07/05/25 07/06/25 Range/Units 23:42 00:11 WBC (4.5-10.0) K/mm3 RBC (4.2-5.4) M/mm3 Hgb (12.0-15.0) g/dL Hct (37.0-47.0) % MCV (80-100) fl MCH (26-34) pg MCHC (32-36) g/dl RDW (11.5-14.5) % Plt Count (150-375) k/mm3 MPV (7.4-10.4) fl Immature Gran % (Auto) (0-0.5) % Neut % (Auto) (45.5-73.1) % Lymph % (Auto) (18.3-44.2) % [place] % (Auto) (2.6-8.5) % Eos % (Auto) (0-4.4) % Baso % (Auto) (0.2-1.2) % Lymph # (Auto) (0.9-3.2) K/mm3 [place] # (Auto) (0.1-0.6) K/mm3 Eos # (Auto) (0-0.3) K/mm3 Baso # (Auto) (0.0-0.1) K/mm3 Abs Immat Gran (auto) (0.00-0.031) K/mm3 Absolute Neuts (auto) (1.3-6.7) K/mm3 Absolute Nucleated RBC (0.0-0.012) K/mm3 Nucleated RBC % (0.0-0.2) % Sodium (137-145) mmol/L Potassium (3.4-5.0) mmol/L Chloride (98-107) mmol/L Carbon Dioxide (22-30) mmol/L Anion Gap (4-12) mmol/L BUN (7-17) mg/dL Creatinine (0.7-1.0) mg/dL Estim Creat Clear Calc ml/min Estimated GFR (59 - ) Glucose (65-110) mg/dL Lactic Acid 2.1 H (0.7-2.0) mmol/L Calcium (8.4-10.2) mg/dL Magnesium (1.6-2.3) mg/dL Total Bilirubin (0.2-1.3) mg/dL AST (14-36) U/L ALT (6-35) U/L Alkaline Phosphatase (38-126) U/L Total Protein (6.3-8.2) g/dL Albumin (3.5-5.1) g/dL Lipase (23-300) U/L Urine Color Dark yellow (Yellow) Urine Appearance Turbid H (Clear) Urine pH 8.0 (5.0-9.0) Ur Specific [place] 1.020 (1.001-1.035) Urine Protein 4+ H (Negative) mg/dL Urine Glucose (UA) Negative (Negative) mg/dL Urine Ketones Trace H (Negative) mg/dL Ur Blood (Man) 2+ H (Negative) Urine Nitrate Negative (Negative) Urine Bilirubin Negative (Negative) Urine Urobilinogen 1.0 (<2.0) mg/dL Add Ur Microanalysis Reviewed Leukocyte Esterase Rfl 3+ H (Negative) HANS/UL Urine RBC 51-100 H (0-2) /hpf Urine WBC >100 H (0-3) /hpf Ur Squamous Epith Cells Many H (Few) /hpf Triple Phos Crystals Present H (None) /hpf Urine Bacteria 4+ /hpf Urine Casts >20 Urine Mucus Present /lpf Influenza A (RT-PCR) (Negative) Influenza B (RT-PCR) (Negative) RSV (RT-PCR) (Negative) SARS-CoV-2 RNA (RT-PCR) (Negative) Critical Care Time Critical Care Time Critical Care Time: Yes Total Critical Care Time: 37 (Please refer to [facility] for attestation.) Discharge Plan Discharge Clinical Impression: Sepsis, Acute UTI, Urinary, incontinence, stress female Patient Disposition: Still a Patient Condition: Improved Patient Language: Belarusian Prescriptions: No Action cyanocobalamin (vitamin B-12) 1,000 mcg tablet 1,000 mcg PO DAILY ferrous sulfate 324 mg (65 mg iron) tablet,delayed release (DR/EC) 324 mg PO EVERY OTHER DAY ondansetron 4 mg tablet,disintegrating 4 mg PO Q6H PRN (DME) Thigh High SANDOVAL hose See Rx Instructions .Route .MEDSUPPLY Qty: 3 0RF Rx Instructions: As directed. Please fill for 3 pairs. Thank you fluconazole 150 mg tablet 150 mg PO WEEKLY (DME) FreeStyle Robbi 14 Day Sensor Kit See Rx Instructions .Route Qty: 1 5RF Rx Instructions: As directed (DME) FreeStyle Robbi 2 Sensor Kit See Rx Instructions .Route Qty: 1 11RF Rx Instructions: As directed cranberry 500 mg capsule 500 mg PO DAILY Rx Instructions: administer with meals nitroglycerin 0.4 mg tablet, sublingual 0.4 mg sublingual Q5M PRN (Reason: Chest Pain) Qty: 25 2RF Rx Instructions: do not exceed 3 doses per episode insulin aspart U-100 [Novolog U-100 Insulin aspart] 100 unit/mL solution See Rx Instructions subcut .COMPLEX Qty: 10 0RF Rx Instructions: SSI: 200-250=4 units, 251-300=8 units, 301-350=10 units, 351-400=12 units, greater than 400=12 units subcutaneously; (DME) FreeStyle Robbi 3 Sensor Device See Rx Instructions .Route Qty: 1 0RF Rx Instructions: As directed zolpidem [Ambien] 5 mg tablet 5 mg PO QHS Qty: 90 0RF (DME) RSV Vaccination See Rx Instructions .Route .MEDSUPPLY Qty: 1 0RF Rx Instructions: RSV Vaccination; Immunization Update Dx: Z23 Eliquis 5 mg tablet 5 mg PO BID Qty: 180 2RF dextromethorphan-guaifenesin [Mucinex DM] 60-1,200 mg tablet extended release 12 hr 1 tablet PO Q12H PRN (DME) pen needle, diabetic [BD Lindasy 2nd Gen Pen Needle] 32 gauge x 5/32 needle See Rx Instructions .ROUTE .COMPLEX Qty: 100 1RF Dose Instruction: USE TO INJECT ONCE DAILY Rx Instructions: USE TO INJECT ONCE DAILY ceftriaxone 500 mg recon soln 500 mg IM DAILY Qty: 10 0RF Rx Instructions: To mix with Lidocaine All Day Allergy (cetirizine) 10 mg capsule 10 mg PO DAILY PRN (Reason: allergy symptoms) Qty: 90 0RF simethicone [Gas-X Extra Strength] 125 mg capsule 250 mg PO DAILY PRN (Reason: abdominal distention) Qty: 20 0RF Rx Instructions: Adult 1?2 softgels as needed after meals and at bedtime; max 4 softgels/day linezolid [Zyvox] 600 mg tablet See Rx Instructions PO .COMPLEX Qty: 5 0RF Rx Instructions: 1 tablet after every dialysis treatment for a total of 5 tablets orally; buspirone 5 mg tablet See Rx Instructions .ROUTE .COMPLEX Qty: 270 1RF Dose Instruction: 5 MG ORALLY THREE TIMES A DAY Rx Instructions: 5 MG ORALLY THREE TIMES A DAY docusate sodium 100 mg capsule 100 mg PO BID acetaminophen 500 mg capsule 500 mg PO Q6H PRN insulin glargine [Lantus Solostar U-100 Insulin] 100 unit/mL (3 mL) insulin pen 25 unit subcut QAM Qty: 15 0RF rosuvastatin 10 mg tablet 10 mg PO DAILY Qty: 90 0RF metoprolol tartrate 25 mg tablet 25 mg PO Q12HR Qty: 180 1RF aripiprazole 2 mg tablet See Rx Instructions .ROUTE .COMPLEX Qty: 135 0RF Dose Instruction: TAKE 1&1/2 TABS BY MOUTH EVERYDAY AT BEDTIME Rx Instructions: TAKE 1&1/2 TABS BY MOUTH EVERYDAY AT BEDTIME sertraline 50 mg tablet 50 mg PO DAILY Qty: 90 1RF nystatin 100,000 unit/gram powder 1 applic topical BID Qty: 60 0RF Rx Instructions: coccyx, groin, and abdominal folds dicloxacillin 250 mg capsule 250 mg PO BID 10 Days Qty: 20 0RF methylphenidate HCl 10 mg tablet 10 mg PO BIDWMEAL Qty: 60 0RF Rx Instructions: breakfast and lunch Follow-up/Referrals: Carl Maloney MD [Primary Care Provider, Internal Medicine] Time of Disposition: 00:43
[2025-07-05] MEDS: SODIUM CHLORIDE 0.9% IV 1,000 ML 250 ML IV CONT (22:13)
[2025-07-05 22:36] LABS: Alanine Aminotransferase 14 U/L (6-35); Albumin Level 3.3 g/dL (3.5-5.1); Alkaline Phosphatase 160 U/L (38-126); Anion Gap 13 mmol/L (4-12); Aspartate Amino Transferase 18 U/L (14-36); Bilirubin,Total 1.0 mg/dL (0.2-1.3); Blood Urea Nitrogen 37 mg/dL (7-17); Calcium 9.5 mg/dL (8.4-10.2); Carbon Dioxide 24 mmol/L (22-30); Chloride 95 mmol/L (98-107); Estimated CRCL calculation 16 ml/min; Estimated Glomerular Filt Rate 12; Glucose 259 mg/dL (65-110); Lipase 86 U/L (23-300); Magnesium 1.9 mg/dL (1.6-2.3); Potassium 4.5 mmol/L (3.4-5.0); Sodium 132 mmol/L (137-145); Total Protein 6.4 g/dL (6.3-8.2)
[2025-07-05 23:13] LABS: Influenza A QL RT-PCR Negative (Negative); Influenza B QL RT-PCR Negative (Negative); RSV RNA, RT-PCR Negative (Negative); SARS-CoV-2 RNA PCR Negative (Negative)
[2025-07-05 23:58] LABS: Add Urine Microscopic? YES; Appearance Urine Turbid (Clear); Glucose Urine UA Negative (Negative); Leukocyte Esterase Ur 3+ LEU/UL (Negative); Need Manual Microscopic Reviewed; Nitrate Urine Negative (Negative); Non Pathogenic Casts >20; Specific Grav Ur 1.020 (1.001-1.035)
[2025-07-06] VITALS (11 sets, daily range): BP systolic 90–134; BP diastolic 56–72; PULSE 94–128; RESP 20–24; TEMP 36.3–37.2; O2SAT 98–100; BMI 38.7
[2025-07-06] MEDS: cefTRIAXone 1 GM in SODIUM CHLORIDE 0.9% IV 50 ML 100 ML IVPB ×2 (00:12→21:21)
--- NOTE | 2025-07-06 06:49 | P.HP_ITS ---
H&P: HPI History of Present Illness Date/Time: 07/06/25 06:49 Chief Complaint: Nausea and vomiting Narrative: 80-year-old female with a past medical history of dementia, end-stage renal disease on hemodialysis Tuesday, CHF, essential hypertension, atrial fibrillation on chronic anticoagulation with Eliquis, diabetes, obstructive sleep apnea intolerant to CPAP and multiple other comorbidities who presented to the ER via EMS from [facility] rehab after patient's daughter called EMS due to weakness. The patient's daughter reported that the patient usually has nausea vomiting following dialysis. Ever since dialysis on Tuesday she has been having intermittent nausea vomiting. She had not vomited on Tuesday before EMS was called but the daughter was concerned because the patient was more weak than usual. The patient arrived with a Braswell catheter in place and she has had a long-term Braswell catheter due to chronic incontinence. ER had removed the patient's Braswell catheter to changes as it was in for at least 3 weeks and then the patient refused that the catheter replaced due to discomfort. The patient also refused straight catheterization. Subsequently UA was sent on the urine within the patient's catheter bag. Patient's daughter reports patient been treated for UTI at the detention. We do not have culture results available from the detention. Patient was afebrile on presentation to the ER blood pressures were soft at with systolics in the 90s. On review of patient's chart is not unusual for patient to have intermittent lower blood pressures. A daughter reports dinner Vásquez sepsis the patient's blood pressures are usually in the 130s systolic. He patient has not had any further vomiting since presentation to the hospital. Nursing staff called me to evaluate the patient is she was having variable heart rate. She does have known history of AFib and her heart rate was ranging between the 80s up to occasionally 124 a few seconds. The patient also did have some hypoxia when she fell asleep. She has known obstructive sleep apnea intolerant to CPAP. The patient's oxygen saturations normalized with supplemental oxygen. Patient had a minimal tachypnea without increased work of breathing. Her only complaint at the time my evaluation the was that she wanted some high sore something to drink. Review of Systems 2 Review of Systems: Unobtainable due to patient's lethargy and dementia [facility] Past Medical History Medical History (Updated 07/06/25 @ 07:15 by Eduarda Flores DO) Chronic indwelling Braswell catheter Anxiety Frequent UTI BMI 38.0-38.9,adult Chronic back pain Seasonal allergies Hypercalcemia Cataract of right eye CHELSEA on CPAP Intolerant to CPAP Narcolepsy Poorly documented CHF (congestive heart failure) Echocardiogram 2021 from [facility]: Left ventricular size mildly enlarged left ventricular systolic function moderately depressed with EF of 35-40%, mild concentric left ventricular hypertrophy, diastolic dysfunction indeterminate due to AFib, moderate global hypokinesis, moderate right ventricular enlargement with normal right ventricular systolic function, severe left atrial volume overload greater than 48 mL, moderate right atrial enlargement, mildly dilated aortic root mild aortic regurgitation Dementia Depression Knee pain Thoracic aortic aneurysm Vitamin B12 deficiency Constipation History of orthostatic hypotension Left ventricular outflow obstruction echocardiogram May 2020 Stress incontinence in female Osteoporosis DEXA scan 08/14/2020 Hearing loss of both ears Vitamin D deficiency Carotid bruit less than 50% stenosis of right internal carotid artery a on Doppler 07/01/2020 Kidney stones of the left kidney with multiple lithotripsies Cancer of right breast status post radiation and chemotherapy Thyroid nodule (~2014) Overactive bladder A-fib Hyperlipidemia 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 DM type 2 (diabetes mellitus, type 2) (~2018) Benign essential hypertension Surgical History Surgical History Status post right cataract extraction Status post cataract extraction and insertion of intraocular lens of right eye Status post right breast lumpectomy Family History Family History (Updated 07/06/25 @ 04:09 by Erick Mendez RN) Sibling Diabetes mellitus Father Diabetes mellitus CHF (congestive heart failure) Kidney failure Mother Cervical cancer Ovarian cancer Sibling Diabetes mellitus Brain bleed Hypertension Cerebrovascular accident Social History Social History (Updated 07/06/25 @ 06:59 by Eduarda Flores DO) Social History: She resides at [facility]. She is . She is a lifelong nonsmoker and does not drink alcohol or use illicit substances. She is retired from the [employer]. 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 Gender identity (if verbalized by the patient): Female Sexual Orientation (if Verbalized by the Patient): Straight or Heterosexual Spiritual care concerns: Yes Agree to blood products: Yes Meds Home Medications and Allergies Home Medications ?Medication ?Instructions ?Recorded ?Confirmed ?Type cyanocobalamin (vitamin B-12) 1,000 mcg PO DAILY 08/1807/06/25 History 1,000 mcg tablet ferrous sulfate 324 mg (65 mg 325 mg PO EVERY OTHER DA Y 01/11/22 07/06/25 History iron) tablet,delayed release cranberry 500 mg capsule 500 mg PO TID 01/16/2407/06 History nitroglycerin 0.4 mg sublingual 0.4 mg sublingual Q5M PRN Chest 02/03/24 07/06/25 Rx tablet Pain #25 tabs insulin aspart U-100 100 unit/mL See Rx Instructions s ubcut 03/21/24 07/06/25 Rx subcutaneous solution (Novolog .COMPLEX #10 mL U-100 Insulin aspart) fluconazole 150 mg tablet 150 mg PO WEEKLY 04/24/24 History blood-glucose sensor (FreeStyle #1 ea 05/29/24 5 Rx Robbi 3 Sensor device) zolpidem 5 mg tablet (Ambien) 5 mg PO QHS #90 tabs 07/06/25 Rx ondansetron 4 mg disintegrating 4 mg PO Q6H PRN nausea and vomiting 09/04/24 07/06/25 History tablet apixaban 5 mg tablet (Eliquis) 5 mg PO BID #180 tabs 0 11/07/24 07/06/25 Rx dextromethorphan-guaifenesin ER 60 1 tablet PO Q12H RI N congestion 11/21/24 07/06/25 History mg-1,200 mg tab,extend release,12hr (Mucinex DM) pen needle, diabetic 32 gauge x #100 ea 11/30/2407/06 Rx (BD Lindsay 2nd Gen Pen Needle) cetirizine 10 mg capsule (All Day 10 mg PO DAILY PRN a llergy 01/21/25 07/06/25 Rx Allergy (cetirizine)) symptoms #90 caps simethicone 125 mg capsule (Gas-X 250 mg (2 x 125 mg) PO DAILY PRN 02/18/25 07/06/25 Rx Extra Strength) abdominal distention #20 cap s buspirone 5 mg tablet See Rx Instructions .Route 0 02/25/25 07/06/25 Rx .COMPLEX #270 tabs acetaminophen 500 mg capsule 500 mg PO Q6H PRN cHONIC BACK PAIN 02/26/25 07/06/25 History docusate sodium 100 mg capsule 200 mg PO BID 02/26/25 07/06/25 History insulin glargine 100 unit/mL (3 25 unit (0.25 mL) subc ut QAM #15 mL 04/01/25 07/06/25 Rx mL) subcutaneous pen (Lantus Solostar U-100 Insulin) Thigh High SANDOVAL hose #3 pkgs 04/30/25 07/06/25 Rx aripiprazole 2 mg tablet See Rx Instructions .Route 0 04/30/25 07/06/25 Rx .COMPLEX #135 tabs rosuvastatin 10 mg tablet 10 mg PO DAILY #90 tabs 07/0 06/1707/06/25 Rx sertraline 50 mg tablet 50 mg PO DAILY #90 tabs 0 06/1707/06/25 Rx nystatin 100,000 unit/gram topical 1 applic topical BI D #60 grams 06/04/25 07/06/25 Rx powder dicloxacillin 250 mg capsule 250 mg PO BID 10 days #20 caps 07/01/25 07/06/25 Rx methylphenidate HCl 10 mg tablet 10 mg PO BIDWMEAL #60 tabs 07/04/25 07/06/25 Rx acetaminophen 650 mg 650 mg PO Q4H PRN GENERAL 07/06/25 History tablet,extended release DISCOMFORT metoprolol tartrate 25 mg tablet 25 mg PO BID 07/06/25 07/06/25 History tenapanor 30 mg tablet (Xphozah) 30 mg PO QPM 07/06/25 07/06/25 History tizanidine 2 mg capsule (Zanaflex) 2 mg PO Q8H PRN mus jacob spasticity 07/06/25 07/06/25 History Allergies Allergy/AdvReac Type Severity Reaction Status Date / Time Sulfa (Sulfonamide Allergy Severe Rash Verified 01/17/25 14:55 Antibiotics) bupropion (From Wellbutrin) Allergy Intermediate Unknown Verified 01/17/25 14:55 Vital Signs Vital Signs - 24 hr 07/05/25 20:02 07/06/25 04:00 Temperature 98.0 F 97.3 F L Pulse Rate 104 H 117 H Respiratory Rate 20 20 Blood Pressure 93/56 L 100/57 L Pulse Oximetry 95 100 Oxygen Delivery Room Air Exam 2 Narrative: Weight 112.1 kg BMI 38 Const: Other: Obese, chronically ill-appearing, appears older than stated age, sitting up in bed with multiple pillows, leaning forward due to significant kyphosis HENMT: Other: Mucous membranes are tacky, no oral pharyngeal erythema, head is normocephalic atraumatic, head is normocephalic atraumatic, eyeglasses in place, nasal cannula in place Neck: Other: No JVD, loss of the cervical lordosis Resp: Other: In shallow respirations, mild tachypnea Cardio: Other: Irregularly irregular coma intermittently tachycardic, no JVD GI: Other: Distended, soft, nontender Skin: Other: Generalized pallor, non jaundice Neuro: Other: Confused, clear speech Extrem: Other: Bilateral lower extremity edema, generalized weakness of all 1 Psych: Other: Confused, cooperative H&P: Results Labs Labs: Laboratory Tests 07/05/25 21:09 07/05/25 22:16 07/05/25 07/05/25 07/05/25 21:09 22:16 22:32 WBC 11.8 H RBC 3.21 L Hgb 9.5 L Hct 31.3 L MCV 97.5 MCH 29.6 MCHC 30.4 L RDW 14.9 H Plt Count 242 MPV 9.9 Immature Gran % (Auto) 0.6 H Neut % (Auto) 88.1 H Lymph % (Auto) 6.2 L Jackson % (Auto) 4.4 Eos % (Auto) 0.4 Baso % (Auto) 0.3 Lymph # (Auto) 0.73 L Jackson # (Auto) 0.5 Eos # (Auto) 0.1 Baso # (Auto) 0.0 Abs Immat Gran (auto) 0.07 H Absolute Neuts (auto) 10.4 H Absolute Nucleated RBC 0.000 Nucleated RBC % 0.0 Sodium 132 L Potassium 4.5 Chloride 95 L Carbon Dioxide 24 Anion Gap 13 H BUN 37 H D Creatinine 3.58 H Estim Creat Clear Calc 16 Estimated GFR 12 L Glucose 259 H Lactic Acid 2.5 H Calcium 9.5 Magnesium 1.9 Total Bilirubin 1.0 AST 18 ALT 14 Alkaline Phosphatase 160 H Total Protein 6.4 Albumin 3.3 L Lipase 86 Urine Color Urine Appearance Urine pH Ur Specific [place] Urine Protein Urine Glucose (UA) Urine Ketones Ur Blood (Man) Urine Nitrate Urine Bilirubin Urine Urobilinogen Add Ur Microanalysis Leukocyte Esterase Rfl Urine RBC Urine WBC Ur Squamous Epith Cells Triple Phos Crystals Urine Bacteria Urine Casts Urine Mucus Influenza A (RT-PCR) Negative Influenza B (RT-PCR) Negative RSV (RT-PCR) Negative SARS-CoV-2 RNA (RT-PCR) Negative 07/05/25 07/06/25 23:42 00:11 WBC RBC Hgb Hct MCV MCH MCHC RDW Plt Count MPV Immature Gran % (Auto) Neut % (Auto) Lymph % (Auto) Jackson % (Auto) Eos % (Auto) Baso % (Auto) Lymph # (Auto) Jackson # (Auto) Eos # (Auto) Baso # (Auto) Abs Immat Gran (auto) Absolute Neuts (auto) Absolute Nucleated RBC Nucleated RBC % Sodium Potassium Chloride Carbon Dioxide Anion Gap BUN Creatinine Estim Creat Clear Calc Estimated GFR Glucose Lactic Acid 2.1 H Calcium Magnesium Total Bilirubin AST ALT Alkaline Phosphatase Total Protein Albumin Lipase Urine Color Dark yellow Urine Appearance Turbid H Urine pH 8.0 Ur Specific [place] 1.020 Urine Protein 4+ H Urine Glucose (UA) Negative Urine Ketones Trace H Ur Blood (Man) 2+ H Urine Nitrate Negative Urine Bilirubin Negative Urine Urobilinogen 1.0 Add Ur Microanalysis Reviewed Leukocyte Esterase Rfl 3+ H Urine RBC 51-100 H Urine WBC >100 H Ur Squamous Epith Cells Many H Triple Phos Crystals Present H Urine Bacteria 4+ Urine Casts >20 Urine Mucus Present Influenza A (RT-PCR) Influenza B (RT-PCR) RSV (RT-PCR) SARS-CoV-2 RNA (RT-PCR) Impressions Chest X-Ray 07/05/25 20:42 Impression: 1: Cardiomegaly with mild interstitial edema. Assessment and Plan Assessment and plan (1) Abnormal urinalysis: Code(s): R82.90 - Unspecified abnormal findings in urine Status: Acute (2) Chronic indwelling Braswell catheter: Code(s): Z97.8 - Presence of other specified devices Status: Acute (3) Atrial fibrillation: Qualifiers: Atrial fibrillation type: unspecified Qualified Code(s): I48.91 - Unspecified atrial fibrillation Code(s): I48.91 - Unspecified atrial fibrillation Status: Acute (4) Lactic acidosis: Code(s): E87.20 - Acidosis, unspecified Status: Acute (5) Type 2 diabetes mellitus with hyperglycemia: Qualifiers: Diabetes mellitus superintendent terminal insulin use: without shelter use Q ualified Code(s): E11.65 - Type 2 diabetes mellitus with hyperglycemia Code(s): E11.65 - Type 2 diabetes mellitus with hyperglycemia Status: Acute (6) ESRD (end stage renal disease): Code(s): N18.6 - End stage renal disease Status: Chronic Plan Patient presented with nausea vomiting and urine in the patient's chronic indwelling Braswell catheter suggest a possible UTI. Patient is already receiving antibiotic therapy at the nursing facility. Culture results were not available for review. The patient's Braswell catheter was removed in the ER but patient refused to have the catheter replaced or to have a straight catheterization in the ER and is still refusing to have the catheter replaced. Subsequently the urine specimen that was sent down to lab for evaluation came from the old catheter that had been in place for at least 3 weeks. Patient been started on empiric antibiotic therapy with Rocephin for possible UTI although urine specimen is poor with many squamous cells. Antibiotic coverage was started as patient does have tachycardia due to AFib with burst of tachycardia and mild leukocytosis and lactic acidosis concerning for sepsis. Patient did receive 2 fluid boluses of 250 mL each with improvement and tachycardia and blood pressure. The patient's soft blood pressures could also be due to volume depletion given she had 3 L of fluid taken off during hemodialysis on the . Nephrology will be consulted for dialysis management if the patient is still hospitalized on Tuesday. Currently the patient's electrolyte panel is stable. She will remain on a renal dialysis diet. Her glucoses were elevated on admission and she is on chronic insulin therapy. Will resume Lantus but decrease home dose and will place patient on moderate dose sliding scale insulin with Accu-Cheks a.c. HS and hypoglycemia protocol as needed. MEDICAL DECISION MAKING NARRATIVE -Spoke with the ED provider in detail regarding patient's evaluation, workup and management -Patient seen and examined at bedside -Collaborated with patient's nurse at the bedside in detail and addressed all concerns -Labs, electrolytes, radiology, investigations and test results personally reviewed and interpreted unless otherwise specified -ED/Consult/Nursing/Ancilliary notes on the chart reviewed and appreciated Quality VTE Prophylaxis VTE prophylaxis: pharmacologic ordered (Continue home Eliquis) Hospitalist MIPS Advance Care Plan I have confirmed that the patient's Advanced Care Plan is present, code status is documented, or surrogate decision maker is listed in patient medical record.: Yes Medication Reconciliation I have utilized all available resources to obtain, update and review the patients current medications (includes all prescriptions, OTC, herbals, cannabis, and nutritional supplements).: Yes
[2025-07-06 09:35] LABS: Hematocrit 31.9 % (37.0-47.0); Hemoglobin 9.6 g/dL (12.0-15.0); Mean Corpuscular HGB Conc 30.1 g/dl (32-36); Mean Corpuscular Hemoglobin 29.4 pg (26-34); Mean Corpuscular Volume 97.9 fl (80-100); Platelet Count Result 236 k/mm3 (150-375); Red Blood Count 3.26 M/mm3 (4.2-5.4); White Blood Count 9.2 K/mm3 (4.5-10.0)
[2025-07-06] MEDS: METOPROLOL TARTRATE 25 MG TABLET PO ×2 (09:51→21:24)
[2025-07-06] MEDS: methylPHENIDATE HCL (*CRX) 10 MG TABLET PO ×2 (09:51→16:24)
[2025-07-06] MEDS: DOCUSATE SODIUM 100 MG CAPSULE 200 MG PO ×2 (09:52→21:21)
[2025-07-06] MEDS: APIXABAN 5 MG TABLET PO ×2 (09:52→21:20)
[2025-07-06] MEDS: ROSUVASTATIN 10 MG TABLET PO (09:52)
[2025-07-06] MEDS: SERTRALINE HCL 50 MG TABLET PO (09:52)
[2025-07-06] MEDS: CYANOCOBALAMIN 1,000 MCG TABLET 1000 MCG PO (09:52)
[2025-07-06 09:55] LABS: Albumin Level 3.4 g/dL (3.5-5.1); Anion Gap 11 mmol/L (4-12); Blood Urea Nitrogen 42 mg/dL (7-17); Calcium 9.6 mg/dL (8.4-10.2); Carbon Dioxide 28 mmol/L (22-30); Chloride 96 mmol/L (98-107); Estimated CRCL calculation 13 ml/min; Estimated Glomerular Filt Rate 10; Glucose 116 mg/dL (65-110); Magnesium 1.9 mg/dL (1.6-2.3); Potassium 4.9 mmol/L (3.4-5.0); Sodium 135 mmol/L (137-145)
[2025-07-06] MEDS: INSULIN GLARGINE (*BKC) 100 UNITS/ML 20 UNITS SUB-Q (10:03)
--- NOTE | 2025-07-06 10:32 | PHAR ---
Drug Name:Xphozah Ingredients:??Tenapanor?-- 30 MG Color:?YellowShape:?OvalImprint:??LOGO?;?[id number]:?Oral Tablet
--- NOTE | 2025-07-06 10:47 | PHAR ---
The pill with imprint?Logo T30?(Red, Oval, 12mm) has been identified as Xphozah 30 mg and is used for?Hyperphosphatemia of Renal Failure.
[2025-07-06 11:07] LABS: MRSA (PCR) DETECTED (NOT DETECTE)
--- NOTE | 2025-07-06 11:29 | PC.NURSE ---
Shima Barrientos, daughter, called to clarify home mediations. Updated in computer.
[2025-07-06] MEDS: VANCOMYCIN 2,000 MG/NS 500 ML 2,000 MG/500 ML BAG 250 MG IVPB (12:08)
--- NOTE | 2025-07-06 14:07 | P.PNIM_ITS ---
Progress Note: A&P Assessment and Plan (1) Abnormal urinalysis: Code(s): R82.90 - Unspecified abnormal findings in urine Status: Acute (2) Chronic indwelling Braswell catheter: Code(s): Z97.8 - Presence of other specified devices Status: Acute (3) Atrial fibrillation: Qualifiers: Atrial fibrillation type: unspecified Qualified Code(s): I48.91 - Unspecified atrial fibrillation Code(s): I48.91 - Unspecified atrial fibrillation Status: Acute (4) Lactic acidosis: Code(s): E87.20 - Acidosis, unspecified Status: Acute (5) Type 2 diabetes mellitus with hyperglycemia: Qualifiers: Diabetes mellitus alf insulin use: without emt intermediate use Qualified Code(s): E11.65 - Type 2 diabetes mellitus with hyperglycemia Code(s): E11.65 - Type 2 diabetes mellitus with hyperglycemia Status: Acute (6) ESRD (end stage renal disease): Code(s): N18.6 - End stage renal disease Status: Chronic Plan Patient presented with nausea vomiting and urine in the patient's chronic indwelling Braswell catheter suggest a possible UTI. Patient is already receiving antibiotic therapy at the nursing facility. Culture results were not available for review. The patient's Braswell catheter was removed in the ER but patient refused to have the catheter replaced or to have a straight catheterization in the ER and is still refusing to have the catheter replaced. Subsequently the urine specimen that was sent down to lab for evaluation came from the old catheter that had been in place for at least 3 weeks. Patient been started on empiric antibiotic therapy with Rocephin for possible UTI although urine specimen is poor with many squamous cells. Antibiotic coverage was started as patient does have tachycardia due to AFib with burst of tachycardia and mild leukocytosis and lactic acidosis concerning for sepsis. Patient did receive 2 fluid boluses of 250 mL each with improvement and tachycardia and blood pressure. The patient's soft blood pressures could also be due to volume depletion given she had 3 L of fluid taken off during hemodialysis on the . Nephrology will be consulted for dialysis management if the patient is still hospitalized on Tuesday. Currently the patient's electrolyte panel is stable. She will remain on a renal dialysis diet. Her glucoses were elevated on admission and she is on chronic insulin therapy. Will resume Lantus but decrease home dose and will place patient on moderate dose sliding scale insulin with Accu-Cheks a.c. HS and hypoglycemia protocol as needed. Review H&P notes and ER Notes, patient stats feels tired and wants to sleep, most likely due possibly to recent dialysis, upon arrival patient white counts were elevated and urine is quite dirty, suspicious for UTI being treated with ceftriaxone, patient nares swab is positive for MRSA will start Vancomycin and place patient on isolation. will PT/OT evaluate the patient, patient will benefit going to rehab. Subjective Date/time seen: 07/06/25 14:07 Interval history: Nausea and vomiting H&P-Narrative: 80-year-old female with a past medical history of dementia, end-stage renal disease on hemodialysis Tuesday, CHF, essential hypertension, atrial fibrillation on chronic anticoagulation with Eliquis, diabetes and mu ltiple other comorbidities who presented to the ER via EMS from [facility] and rehab after patient's daughter called EMS due to weakness. The patient's daughter reported that the patient usually has nausea vomiting following dialysis. Ever since dialysis on Tuesday she has been having intermittent nausea vomiting. She had not vomited on Tuesday before EMS was called but the daughter was concerned because the patient was more weak than usual. Review H&P notes and ER Notes, patient stats feels tired and wants to sleep, most likely due possibly to recent dialysis, upon arrival patient white counts were elevated and urine is quite dirty, suspicious for UTI being treated with ceftriaxone, patient nares swab is positive for MRSA will start Vancomycin and place patient on isolation. will PT/OT evaluate the patient, patient will benefit going to rehab. Review of Systems Review of Systems: Unobtainable due to patient's lethargy and dementia Exam Narrative: Patient is comfortable, NAD HEENT: eyes are clear and none icteric LUNGS:CTA HEART: RR S1S2 ABD: BS+, Soft and nontender Lower extremities: no edema SKIN: nonjaundiced Neuro: grossly intact. Objective Data Vital Signs Vital Signs: Vital Signs - 24 hr 07/05/25 20:02 07/06/25 04:00 07/06/25 04:04 Temperature 36.7 C 36.3 C L Pulse Rate 104 H 117 H 110 H Respiratory Rate 20 20 Blood Pressure 93/56 L 100/57 L Pulse Oximetry 95 100 Oxygen Delivery Room Air Oxygen Flow Rate 07/06/25 04:08 07/06/25 08:00 07/06/25 08:00 Temperature 37.0 C Pulse Rate 103 H 114 H Respiratory Rate 24 H 24 H Blood Pressure 134/72 Pulse Oximetry 100 98 99 Oxygen Delivery Room Air Nasal Cannula Oxygen Flow Rate 2 07/06/25 08:00 07/06/25 09:51 Temperature Pulse Rate 123 H 128 H Respiratory Rate Blood Pressure Pulse Oximetry Oxygen Delivery Oxygen Flow Rate Intake/Output Intake/Output: Intake & Output 07/03/25 07/04/25 07/05/25 07/06/25 23:59 23:59 23:59 23:59 Intake Total 1112.3 50 Balance 1112.3 50 Meds/Results Medications: Active Medications Generic Name Dose Route Start Last Admin Trade Name Freq PRN Reason Stop Dose Admin Acetaminophen 650 mg 07/06/25 06:42 Acetaminophen 325 Mg Tablet PO Q4H PRN Pain 1-3 or fever Apixaban 5 mg 07/06/25 09:00 07/06/25 09:52 Apixaban 5 Mg Tablet PO 5 mg Q12HR BIANKA Administration Aripiprazole 2.5 mg 07/06/25 21:00 Aripiprazole 2.5 Mg Tablet PO QHS BIANKA Buspirone HCl 5 mg 07/06/25 06:55 07/06/25 09:52 Buspirone Hcl 5 Mg Tablet PO 5 mg Q8HR BIANKA Administration Cyanocobalamin 1,000 mcg 07/06/25 09:00 07/06/25 09:52 Cyanocobalamin 1,000 Mcg Tablet PO 1,000 mcg DAILY BIANKA Administration Dextrose 12.5 gm 07/06/25 06:46 Dextrose 50% 25 Gm/50 Ml Syringe IV PUSH PRN PRN Hypoglycemia Protocol Docusate Sodium 200 mg 07/06/25 09:00 07/06/25 09:52 Docusate Sodium 100 Mg Capsule PO 200 mg Q12HR BIANKA Administration Ferrous Sulfate 325 mg 07/08/25 09:00 Ferrous Sulfate 325 Mg Tablet PO MoWeFr BIANKA Fluconazole 150 mg 07/06/25 09:00 Fluconazole 150 Mg Tablet PO Sa@0900 BIANKA Glucagon 1 mg 07/06/25 06:46 Glucagon For Inj 1 Mg Vial IM PRN PRN Hypoglycemia Protocol Glucose 15 gm 07/06/25 06:46 Glucose Oral Gel 15 Gm Of Glucse In 37.5 Gm Tube PO PRN PRN Hypoglycemia Protocol Dextrose 1,000 mls @ 100 mls/hr 07/06/25 06:46 Dextrose 5% 1,000 Ml IVPB PRN PRN Hypoglycemia Protocol Ceftriaxone Sodium 1 gm/ 50 mls @ 100 mls/hr 07/06/25 21:00 Sodium Chloride IVPB Q24H BIANKA Insulin Aspart 3 - 6 units 07/06/25 08:00 07/06/25 12:08 Insulin Aspart (*Bkc) 100 Units/Ml SUB-Q Not Given TIDWM BIANKA Protocol Insulin Aspart 1 - 3 units 07/06/25 21:00 Insulin Aspart (*Bkc) 100 Units/Ml SUB-Q HS [facility] Protocol Insulin Glargine 20 units 07/06/25 09:00 07/06/25 10:03 Insulin Glargine (*Bkc) 100 Units/Ml SUB-Q 20 units QAM BIANKA Administration Loratadine 10 mg 07/06/25 06:55 Loratadine 10 Mg Tablet PO DAILY PRN allergy symptoms Methylphenidate HCl 10 mg 07/06/25 08:00 07/06/25 09:51 Methylphenidate Hcl (*Crx) 10 Mg Tablet PO 10 mg BIDWM BIANKA Administration Metoprolol Tartrate 25 mg 07/06/25 09:00 07/06/25 09:51 Metoprolol Tartrate 25 Mg Tablet PO 25 mg Q12HR BIANKA Administration (Tenapanor [Xphozah] 30 mg 07/06/25 18:00 30 Mg) Home Med PO 08/05/25 17:59 QPM BIANKA Rosuvastatin Calcium 10 mg 07/06/25 09:00 07/06/25 09:52 Rosuvastatin 10 Mg Tablet PO 10 mg DAILY BIANKA Administration Sertraline HCl 50 mg 07/06/25 09:00 07/06/25 09:52 Sertraline Hcl 50 Mg Tablet PO 50 mg DAILY BIANKA Administration Simethicone 250 mg 07/06/25 06:42 Simethicone 125 Mg Chew Tab PO TIDWM PRN Abdominal Distention Simethicone 250 mg 07/06/25 21:00 Simethicone 125 Mg Chew Tab PO QHS PRN Abdominal Distention Vancomycin HCl 1 each 07/06/25 11:34 Vancomycin For Hemodialysis IVPB PRN PRN Vancomycin Protocol Zolpidem Tartrate 5 mg 07/06/25 21:00 Zolpidem Tartrate (*Crx) 5 Mg Tablet PO QHS [facility] Radiology Results: ITS Impressions Chest X-Ray 07/05/25 20:42 Impression: 1: Cardiomegaly with mild interstitial edema. Labs Labs: Laboratory Results - last 24 hr 07/05/25 07/05/25 07/05/25 21:09 22:16 22:32 WBC 11.8 H RBC 3.21 L Hgb 9.5 L Hct 31.3 L MCV 97.5 MCH 29.6 MCHC 30.4 L RDW 14.9 H Plt Count 242 MPV 9.9 Immature Gran % (Auto) 0.6 H Neut % (Auto) 88.1 H Lymph % (Auto) 6.2 L [place] % (Auto) 4.4 Eos % (Auto) 0.4 Baso % (Auto) 0.3 Lymph # (Auto) 0.73 L [place] # (Auto) 0.5 Eos # (Auto) 0.1 Baso # (Auto) 0.0 Abs Immat Gran (auto) 0.07 H Absolute Neuts (auto) 10.4 H Absolute Nucleated RBC 0.000 Nucleated RBC % 0.0 Sodium 132 L Potassium 4.5 Chloride 95 L Carbon Dioxide 24 Anion Gap 13 H BUN 37 H D Creatinine 3.58 H Estim Creat Clear Calc 16 Estimated GFR 12 L Glucose 259 H POC Capillary Glucose Lactic Acid 2.5 H Calcium 9.5 Phosphorus Magnesium 1.9 Total Bilirubin 1.0 AST 18 ALT 14 Alkaline Phosphatase 160 H Total Protein 6.4 Albumin 3.3 L Lipase 86 Urine Color Urine Appearance Urine pH Ur Specific Harvest Urine Protein Urine Glucose (UA) Urine Ketones Ur Blood (Man) Urine Nitrate Urine Bilirubin Urine Urobilinogen Add Ur Microanalysis Leukocyte Esterase Rfl Urine RBC Urine WBC Ur Squamous Epith Cells Triple Phos Crystals Urine Bacteria Urine Casts Urine Mucus Nasal MRSA (PCR) Influenza A (RT-PCR) Negative Influenza B (RT-PCR) Negative RSV (RT-PCR) Negative SARS-CoV-2 RNA (RT-PCR) Negative 07/05/25 07/06/25 07/06/25 23:42 00:11 07:37 WBC RBC Hgb Hct MCV MCH MCHC RDW Plt Count MPV Immature Gran % (Auto) Neut % (Auto) Lymph % (Auto) [place] % (Auto) Eos % (Auto) Baso % (Auto) Lymph # (Auto) [place] # (Auto) Eos # (Auto) Baso # (Auto) Abs Immat Gran (auto) Absolute Neuts (auto) Absolute Nucleated RBC Nucleated RBC % Sodium Potassium Chloride Carbon Dioxide Anion Gap BUN Creatinine Estim Creat Clear Calc Estimated GFR Glucose POC Capillary Glucose 121 H Lactic Acid 2.1 H Calcium Phosphorus Magnesium Total Bilirubin AST ALT Alkaline Phosphatase Total Protein Albumin Lipase Urine Color Dark yellow Urine Appearance Turbid H Urine pH 8.0 Ur Specific Harvest 1.020 Urine Protein 4+ H Urine Glucose (UA) Negative Urine Ketones Trace H Ur Blood (Man) 2+ H Urine Nitrate Negative Urine Bilirubin Negative Urine Urobilinogen 1.0 Add Ur Microanalysis Reviewed Leukocyte Esterase Rfl 3+ H Urine RBC 51-100 H Urine WBC >100 H Ur Squamous Epith Cells Many H Triple Phos Crystals Present H Urine Bacteria 4+ Urine Casts >20 Urine Mucus Present Nasal MRSA (PCR) Influenza A (RT-PCR) Influenza B (RT-PCR) RSV (RT-PCR) SARS-CoV-2 RNA (RT-PCR) 07/06/25 07/06/25 07/06/25 08:55 09:47 11:35 WBC 9.2 RBC 3.26 L Hgb 9.6 L Hct 31.9 L MCV 97.9 MCH 29.4 MCHC 30.1 L RDW 14.9 H Plt Count 236 MPV 9.8 Immature Gran % (Auto) Neut % (Auto) Lymph % (Auto) [place] % (Auto) Eos % (Auto) Baso % (Auto) Lymph # (Auto) [place] # (Auto) Eos # (Auto) Baso # (Auto) Abs Immat Gran (auto) Absolute Neuts (auto) Absolute Nucleated RBC Nucleated RBC % Sodium 135 L Potassium 4.9 Chloride 96 L Carbon Dioxide 28 Anion Gap 11 BUN 42 H Creatinine 4.22 H Estim Creat Clear Calc 13 Estimated GFR 10 L Glucose 116 H POC Capillary Glucose 105 Lactic Acid Calcium 9.6 Phosphorus 7.5 H Magnesium 1.9 Total Bilirubin AST ALT Alkaline Phosphatase Total Protein Albumin 3.4 L Lipase Urine Color Urine Appearance Urine pH Ur Specific Harvest Urine Protein Urine Glucose (UA) Urine Ketones Ur Blood (Man) Urine Nitrate Urine Bilirubin Urine Urobilinogen Add Ur Microanalysis Leukocyte Esterase Rfl Urine RBC Urine WBC Ur Squamous Epith Cells Triple Phos Crystals Urine Bacteria Urine Casts Urine Mucus Nasal MRSA (PCR) Detected A* Influenza A (RT-PCR) Influenza B (RT-PCR) RSV (RT-PCR) SARS-CoV-2 RNA (RT-PCR) Quality VTE Prophylaxis VTE prophylaxis: pharmacologic ordered (Continue home Eliquis)
[2025-07-06] MEDS: FLUCONAZOLE 150 MG TABLET PO (14:24)
[2025-07-06] MEDS: TENAPANOR 30 MG 30 EACH PO (16:24)
[2025-07-06] MEDS: ACETAMINOPHEN 325 MG TABLET 650 MG PO (16:45)
[2025-07-06] MEDS: INSULIN ASPART (*BKC) 100 UNITS/ML SUB-Q (21:18)
[2025-07-06] MEDS: ARIPiprazole 2.5 MG TABLET PO (21:20)
[2025-07-06] MEDS: ZOLPIDEM TARTRATE (*CRX) 5 MG TABLET PO (21:21)
[2025-07-07] VITALS (12 sets, daily range): BP systolic 99–122; BP diastolic 50–74; PULSE 61–130; RESP 18–28; TEMP 36.6–37.6; O2SAT 98–100
[2025-07-07 06:34] LABS: Hematocrit 31.2 % (37.0-47.0); Hemoglobin 9.2 g/dL (12.0-15.0); Mean Corpuscular HGB Conc 29.5 g/dl (32-36); Mean Corpuscular Hemoglobin 29.4 pg (26-34); Mean Corpuscular Volume 99.7 fl (80-100); Platelet Count Result 240 k/mm3 (150-375); Red Blood Count 3.13 M/mm3 (4.2-5.4); White Blood Count 9.6 K/mm3 (4.5-10.0)
[2025-07-07 06:55] LABS: Albumin Level 3.2 g/dL (3.5-5.1); Anion Gap 13 mmol/L (4-12); Blood Urea Nitrogen 54 mg/dL (7-17); Calcium 9.6 mg/dL (8.4-10.2); Carbon Dioxide 25 mmol/L (22-30); Chloride 97 mmol/L (98-107); Estimated CRCL calculation 10 ml/min; Estimated Glomerular Filt Rate 7; Glucose 119 mg/dL (65-110); Magnesium 1.9 mg/dL (1.6-2.3); Potassium 4.8 mmol/L (3.4-5.0); Sodium 135 mmol/L (137-145)
[2025-07-07] MEDS: SERTRALINE HCL 50 MG TABLET PO (08:27)
[2025-07-07] MEDS: DOCUSATE SODIUM 100 MG CAPSULE 200 MG PO ×2 (08:27→21:26)
[2025-07-07] MEDS: APIXABAN 5 MG TABLET PO ×2 (08:28→21:25)
[2025-07-07] MEDS: METOPROLOL TARTRATE 25 MG TABLET PO ×2 (08:28→21:27)
[2025-07-07] MEDS: CYANOCOBALAMIN 1,000 MCG TABLET 1000 MCG PO (08:28)
[2025-07-07] MEDS: ROSUVASTATIN 10 MG TABLET PO (08:28)
[2025-07-07] MEDS: methylPHENIDATE HCL (*CRX) 10 MG TABLET PO ×2 (08:28→17:27)
[2025-07-07] MEDS: INSULIN GLARGINE (*BKC) 100 UNITS/ML 20 UNITS SUB-Q (08:34)
--- NOTE | 2025-07-07 13:23 | PM.IMPN ---
Progress Note: A&P Assessment and Plan (1) Abnormal urinalysis: Code(s): R82.90 - Unspecified abnormal findings in urine Status: Acute (2) Chronic indwelling Braswell catheter: Code(s): Z97.8 - Presence of other specified devices Status: Acute (3) Atrial fibrillation: Qualifiers: Atrial fibrillation type: unspecified Qualified Code(s): I48.91 - Unspecified atrial fibrillation Code(s): I48.91 - Unspecified atrial fibrillation Status: Acute (4) Lactic acidosis: Code(s): E87.20 - Acidosis, unspecified Status: Acute (5) Type 2 diabetes mellitus with hyperglycemia: Qualifiers: Diabetes mellitus mcc insulin use: without salvage determiner use Qualified Code(s): E11.65 - Type 2 diabetes mellitus with hyperglycemia Code(s): E11.65 - Type 2 diabetes mellitus with hyperglycemia Status: Acute (6) ESRD (end stage renal disease): Code(s): N18.6 - End stage renal disease Status: Chronic Plan Patient presented with nausea vomiting and urine in the patient's chronic indwelling Braswell catheter suggest a possible UTI. Patient is already receiving antibiotic therapy at the nursing facility. Culture results were not available for review. The patient's Braswell catheter was removed in the ER but patient refused to have the catheter replaced or to have a straight catheterization in the ER and is still refusing to have the catheter replaced. Subsequently the urine specimen that was sent down to lab for evaluation came from the old catheter that had been in place for at least 3 weeks. Patient been started on empiric antibiotic therapy with Rocephin for possible UTI although urine specimen is poor with many squamous cells. Antibiotic coverage was started as patient does have tachycardia due to AFib with burst of tachycardia and mild leukocytosis and lactic acidosis concerning for sepsis. Patient did receive 2 fluid boluses of 250 mL each with improvement and tachycardia and blood pressure. The patient's soft blood pressures could also be due to volume depletion given she had 3 L of fluid taken off during hemodialysis on the . Nephrology will be consulted for dialysis management if the patient is still hospitalized on Tuesday. Currently the patient's electrolyte panel is stable. She will remain on a renal dialysis diet. Her glucoses were elevated on admission and she is on chronic insulin therapy. Will resume Lantus but decrease home dose and will place patient on moderate dose sliding scale insulin with Accu-Cheks a.c. HS and hypoglycemia protocol as needed. Review H&P notes and ER Notes, patient stats feels tired and wants to sleep, most likely due possibly to recent dialysis, upon arrival patient white counts were elevated and urine is quite dirty, suspicious for UTI being treated with ceftriaxone, patient nares swab is positive for MRSA will start Vancomycin and place patient on isolation. will PT/OT evaluate the patient, patient stats feels little better compared to when she arrived, patient will benefit going to rehab. patient will be seen [employer] fin[employer] and will have scheduled dialysis. MEDICAL DECISION MAKING NARRATIVE -Spoke with the ED provider in detail regarding patient's evaluation, workup and management -Patient seen and examined at bedside -Collaborated with patient's nurse at the bedside in detail and addressed all concerns -Labs, electrolytes, radiology, investigations and test results personally reviewed and interpreted unless otherwise specified -ED/Consult/Nursing/Ancilliary notes on the chart reviewed and appreciated Subjective Date/time seen: 07/07/25 13:23 Interval history: Nausea and vomiting H&P-Narrative: 80-year-old female with a past medical history of dementia, end-stage renal disease on hemodialysis Tuesday, CHF, essential hypertension, atrial fibrillation on chronic anticoagulation with Eliquis, diabetes and multiple other comorbidities who presented to the ER via EMS from [facility] and rehab after patient's daughter called EMS due to weakness. The patient's daughter reported that the patient usually has nausea vomiting following dialysis. Ever since dialysis on Tuesday she has been having intermittent nausea vomiting. She had not vomited on Tuesday before EMS was called but the daughter was concerned because the patient was more weak than usual. Review H&P notes and ER Notes, patient stats feels tired and wants to sleep, most likely due possibly to recent dialysis, upon arrival patient white counts were elevated and urine is quite dirty, suspicious for UTI being treated with ceftriaxone, patient nares swab is positive for MRSA will start Vancomycin and place patient on isolation. will PT/OT evaluate the patient, patient stats feels little better compared to when she arrived, patient will benefit going to rehab. patient will be seen [employer] fin[employer] and will have scheduled dialysis. Review of Systems Review of Systems: Unobtainable due to patient's lethargy and dementia Objective Data Vital Signs Vital Signs: Vital Signs - 24 hr 07/06/25 16:00 07/06/25 20:00 07/06/25 20:04 Temperature 37.2 C Pulse Rate 113 H 117 H 120 H Respiratory Rate 22 H Blood Pressure 97/56 L Pulse Oximetry 100 Oxygen Delivery Oxygen Flow Rate 07/06/25 21:20 07/06/25 21:24 07/07/25 00:00 Temperature 36.6 C Pulse Rate 94 61 Respiratory Rate 22 H Blood Pressure 99/52 L Pulse Oximetry 100 100 Oxygen Delivery Nasal Cannula Oxygen Flow Rate 2 07/07/25 00:02 07/07/25 04:00 07/07/25 04:04 Temperature 37.0 C Pulse Rate 96 86 114 H Respiratory Rate 20 Blood Pressure 116/67 Pulse Oximetry 99 Oxygen Delivery Oxygen Flow Rate 07/07/25 08:00 07/07/25 08:00 07/07/25 08:28 Temperature 36.8 C Pulse Rate 122 H 130 H Respiratory Rate 24 H Blood Pressure 122/74 Pulse Oximetry 100 100 Oxygen Delivery Nasal Cannula Oxygen Flow Rate 5 07/07/25 08:59 07/07/25 12:00 Temperature 37.6 C Pulse Rate 122 H 112 H Respiratory Rate 28 H Blood Pressure 117/61 Pulse Oximetry 99 Oxygen Delivery Oxygen Flow Rate Intake/Output Intake/Output: Intake & Output 07/04/25 07/05/25 07/06/25 07/07/25 23:59 23:59 23:59 23:59 Intake Total 1112.3 570 240 Balance 1112.3 570 240 Meds/Results Medications: Active Medications Generic Name Dose Route Start Last Admin Trade Name Brayden PRN Reason Stop Dose Admin Acetaminophen 650 mg 07/06/25 06:42 07/06/25 16:45 Acetaminophen 325 Mg Tablet PO 650 mg Q4H PRN Administration Pain 1-3 or fever Apixaban 5 mg 07/06/25 09:00 07/07/25 08:28 Apixaban 5 Mg Tablet PO 5 mg Q12HR BIANKA Administration Aripiprazole 2.5 mg 07/06/25 21:00 07/06/25 21:20 Aripiprazole 2.5 Mg Tablet PO 2.5 mg QHS BIANKA Administration Buspirone HCl 5 mg 07/06/25 06:55 07/07/25 05:03 Buspirone Hcl 5 Mg Tablet PO 5 mg Q8HR BIANKA Administration Cyanocobalamin 1,000 mcg 07/06/25 09:00 07/07/25 08:28 Cyanocobalamin 1,000 Mcg Tablet PO 1,000 mcg DAILY BIANKA Administration Dextrose 12.5 gm 07/06/25 06:46 Dextrose 50% 25 Gm/50 Ml Syringe IV PUSH PRN PRN Hypoglycemia Protocol Docusate Sodium 200 mg 07/06/25 09:00 07/07/25 08:27 Docusate Sodium 100 Mg Capsule PO 200 mg Q12HR BIANKA Administration Ferrous Sulfate 325 mg 07/08/25 09:00 Ferrous Sulfate 325 Mg Tablet PO MoWeFr [facility] Fluconazole 150 mg 07/06/25 09:00 07/06/25 14:24 Fluconazole 150 Mg Tablet PO 150 mg Sa@0900 [facility] Administration Glucagon 1 mg 07/06/25 06:46 Glucagon For Inj 1 Mg Vial IM PRN PRN Hypoglycemia Protocol Glucose 15 gm 07/06/25 06:46 Glucose Oral Gel 15 Gm Of Glucse In 37.5 Gm Tube PO PRN PRN Hypoglycemia Protocol Dextrose 1,000 mls @ 100 mls/hr 07/06/25 06:46 Dextrose 5% 1,000 Ml IVPB PRN PRN Hypoglycemia Protocol Ceftriaxone Sodium 1 gm/ 50 mls @ 100 mls/hr 07/06/25 21:00 07/06/25 21:51 Sodium Chloride IVPB Infused Q24H [facility] Infusion Insulin Aspart 3 - 6 units 07/06/25 08:00 07/07/25 12:40 Insulin Aspart (*Bkc) 100 Units/Ml SUB-Q Not Given TIDWM [facility] Protocol Insulin Aspart 1 - 3 units 07/06/25 21:00 07/06/25 21:18 Insulin Aspart (*Bkc) 100 Units/Ml SUB-Q 1 units HS [facility] Administration Protocol Insulin Glargine 20 units 07/06/25 09:00 07/07/25 08:34 Insulin Glargine (*Bkc) 100 Units/Ml SUB-Q 20 units QAM [facility] Administration Loratadine 10 mg 07/06/25 06:55 Loratadine 10 Mg Tablet PO DAILY PRN allergy symptoms Methylphenidate HCl 10 mg 07/06/25 08:00 07/07/25 08:28 Methylphenidate Hcl (*Crx) 10 Mg Tablet PO 10 mg BIDWM [facility] Administration Metoprolol Tartrate 25 mg 07/06/25 09:00 07/07/25 08:28 Metoprolol Tartrate 25 Mg Tablet PO 25 mg Q12HR [facility] Administration (Tenapanor [Xphozah] 30 mg 07/06/25 18:00 07/06/25 16:24 30 Mg) Home Med PO 08/05/25 17:59 30 mg QPM [facility]ANKA Administration Rosuvastatin Calcium 10 mg 07/06/25 09:00 07/07/25 08:28 Rosuvastatin 10 Mg Tablet PO 10 mg DAILY [facility] Administration Sertraline HCl 50 mg 07/06/25 09:00 07/07/25 08:27 Sertraline Hcl 50 Mg Tablet PO 50 mg DAILY [facility] Administration Simethicone 250 mg 07/06/25 06:42 Simethicone 125 Mg Chew Tab PO TIDWM PRN Abdominal Distention Simethicone 250 mg 07/06/25 21:00 Simethicone 125 Mg Chew Tab PO QHS PRN Abdominal Distention Vancomycin HCl 1 each 07/06/25 11:34 Vancomycin For Hemodialysis IVPB PRN PRN Vancomycin Protocol Zolpidem Tartrate 5 mg 07/06/25 21:00 07/06/25 21:21 Zolpidem Tartrate (*Crx) 5 Mg Tablet PO 5 mg QHS [facility] Administration Radiology Results: ITS Impressions Chest X-Ray 07/05/25 20:42 Impression: 1: Cardiomegaly with mild interstitial edema. Labs Labs: Laboratory Results - last 24 hr 07/06/25 07/06/25 07/07/25 17:55 21:16 05:32 WBC 9.6 RBC 3.13 L Hgb 9.2 L Hct 31.2 L MCV 99.7 MCH 29.4 MCHC 29.5 L RDW 15.0 H Plt Count 240 MPV 9.9 Sodium 135 L Potassium 4.8 Chloride 97 L Carbon Dioxide 25 Anion Gap 13 H BUN 54 H D Creatinine 5.69 H Estim Creat Clear Calc 10 Estimated GFR 7 L Glucose 119 H POC Capillary Glucose 293 H 212 H Calcium 9.6 Phosphorus 8.0 H Magnesium 1.9 Albumin 3.2 L 07/07/25 11:01 WBC RBC Hgb Hct MCV MCH MCHC RDW Plt Count MPV Sodium Potassium Chloride Carbon Dioxide Anion Gap BUN Creatinine Estim Creat Clear Calc Estimated GFR Glucose POC Capillary Glucose 209 H Calcium Phosphorus Magnesium Albumin Quality VTE Prophylaxis VTE prophylaxis: pharmacologic ordered (Continue home Eliquis)
[2025-07-07] MEDS: INSULIN ASPART (*BKC) 100 UNITS/ML SUB-Q ×2 (13:34→17:28)
[2025-07-07] MEDS: TENAPANOR 30 MG 30 EACH PO (17:33)
[2025-07-07] MEDS: ONDANSETRON HCL ODT 4 MG TABLET PO (18:18)
[2025-07-07] MEDS: ZOLPIDEM TARTRATE (*CRX) 5 MG TABLET PO (21:28)
[2025-07-07] MEDS: cefTRIAXone 1 GM in SODIUM CHLORIDE 0.9% IV 50 ML 100 ML IVPB (21:29)
[2025-07-08] VITALS (29 sets, daily range): BP systolic 89–149; BP diastolic 38–110; PULSE 59–145; RESP 16–22; TEMP 35.9–37.2; O2SAT 98–100
[2025-07-08 06:08] LABS: Hematocrit 30.6 % (37.0-47.0); Hemoglobin 9.3 g/dL (12.0-15.0); Mean Corpuscular HGB Conc 30.4 g/dl (32-36); Mean Corpuscular Hemoglobin 29.4 pg (26-34); Mean Corpuscular Volume 96.8 fl (80-100); Platelet Count Result 255 k/mm3 (150-375); Red Blood Count 3.16 M/mm3 (4.2-5.4); White Blood Count 12.6 K/mm3 (4.5-10.0)
[2025-07-08 06:32] LABS: Albumin Level 3.4 g/dL (3.5-5.1); Anion Gap 13 mmol/L (4-12); Blood Urea Nitrogen 69 mg/dL (7-17); Calcium 10.2 mg/dL (8.4-10.2); Carbon Dioxide 25 mmol/L (22-30); Chloride 94 mmol/L (98-107); Estimated CRCL calculation 8 ml/min; Estimated Glomerular Filt Rate 6; Glucose 142 mg/dL (65-110); Magnesium 1.8 mg/dL (1.6-2.3); Potassium 5.0 mmol/L (3.4-5.0); Sodium 132 mmol/L (137-145)
[2025-07-08] MEDS: METOPROLOL TARTRATE 25 MG TABLET PO ×2 (06:49→21:52)
[2025-07-08 07:10] LABS: Hepatitis B Surface Antigen Negative (Negative)
[2025-07-08 07:28] LABS: Hepatitis B Surface Anti Res Positive
--- NOTE | 2025-07-08 07:58 | PCSTNOTE ---
Please refer to the Bedside Swallow Evaluation in the EMR. Please note, silent aspiration cannot be ruled out at bedside. The patient is a 80 year old female admitted with a diagnosis of UTI. Orders received to complete a BSE and r/o aspiration. The patient was positioned upright and presented thin liquid via a straw, pudding, and solid cracker consistency. Oral stage: Timely oral preparation for all consistencies except cracker. The patient is edentulous and required extra time to masticate solids. Patient states she selects soft foods to eat. Pharyngeal Stage: Timely swallow initiation for all consistencies without CSA for all consistencies. Recommend 1. Regular diet / Level 7 2. Thin Liquid / Level 0 3. Upright with meals.
[2025-07-08] MEDS: methylPHENIDATE HCL (*CRX) 10 MG TABLET PO ×2 (08:13→20:04)
[2025-07-08] MEDS: CYANOCOBALAMIN 1,000 MCG TABLET 1000 MCG PO (08:14)
[2025-07-08] MEDS: DOCUSATE SODIUM 100 MG CAPSULE 200 MG PO ×2 (08:14→21:49)
[2025-07-08] MEDS: APIXABAN 5 MG TABLET PO ×2 (08:14→21:50)
[2025-07-08] MEDS: ROSUVASTATIN 10 MG TABLET PO (08:15)
[2025-07-08] MEDS: SERTRALINE HCL 50 MG TABLET PO (08:15)
[2025-07-08] MEDS: INSULIN GLARGINE (*BKC) 100 UNITS/ML 20 UNITS SUB-Q (08:18)
[2025-07-08] MEDS: FERROUS SULFATE 325 MG TABLET PO (08:20)
[2025-07-08] MEDS: [UNRECOGNIZED DRUG - OTHER] PO (10:03)
[2025-07-08] MEDS: TENAPANOR 30 MG PO (10:03)
--- NOTE | 2025-07-08 10:17 | WPDCDIQUERY2 ---
CDI Query Clarification Request 1)Clarification request - UTI has been documented, chronic indwelling christianson catheter documented. Please clarify if UTI is: due to/associated with chronic indwelling christianson catheter not due to/associated with chronic indwelling christianson catheter unable to determine 2) ER documented sepsis, Please clarify if sepsis has been ruled in or ruled out. ER documented: The patient was evaluated by myself in the emergency department. History is obtained from patient who is an independent historian and physical exam was performed. External medical records were reviewed at this time. IV was established and pertinent tests were ordered. Patient was administered a 500 cc IV fluid bolus due to concern for hypotension. Given that the patient is a dialysis patient, she is limited to 1 L IV fluid restriction per day. Repeat blood pressure 96/57 mmHg with a map of 70. Laboratory results obtained revealing leukocytosis of 11.8, hemoglobin 9.5 which is around patient's baseline. He BUN 37 and creatinine 3.58 also around patient's baseline. Initial lactic acid 2.5, repeat lactic acid 2.1 after 500 cc IV fluid bolus. Urinalysis did reveal urinary tract infection. Patient was administered 1 g of IV Rocephin at this time. Urinalysis was obtained from Christianson bag as a clean sample was not obtained at this time since we were unsuccessful in placing a new Christianson catheter after removing the old 1 which has been in place for over 3 weeks. Patient with the cooperative with examination due to pain and at this time family members do not want us to attempt another Christianson placement. Urine culture pending. Clinical Impression: Sepsis, Acute UTI, Urinary, incontinence, stress female Hospitalist documented: (1) Abnormal urinalysis: Code(s): R82.90 - Unspecified abnormal findings in urine Status: Acute (2) Chronic indwelling Christianson catheter: Code(s): Z97.8 - Presence of other specified devices Status: Acute (3) Atrial fibrillation: Qualifiers: Atrial fibrillation type: unspecified Qualified Code(s): I48.91 - Unspecified atrial fibrillation Code(s): I48.91 - Unspecified atrial fibrillation Status: Acute (4) Lactic acidosis: Code(s): E87.20 - Acidosis, unspecified Status: Acute (5) Type 2 diabetes mellitus with hyperglycemia: Qualifiers: Diabetes mellitus telephone assembler insulin use: without shelter use Qualified Code(s): E11.65 - Type 2 diabetes mellitus with hyperglycemia Code(s): E11.65 - Type 2 diabetes mellitus with hyperglycemia Status: Acute (6) ESRD (end stage renal disease): Code(s): N18.6 - End stage renal disease Status: Chronic Plan Patient presented with nausea vomiting and urine in the patient's chronic indwelling Christianson catheter suggest a possible UTI. Patient is already receiving antibiotic therapy at the nursing facility. Culture results were not available for review. The patient's Christianson catheter was removed in the ER but patient refused to have the catheter replaced or to have a straight catheterization in the ER and is still refusing to have the catheter replaced. Subsequently the urine specimen that was sent down to lab for evaluation came from the old catheter that had been in place for at least 3 weeks. Patient been started on empiric antibiotic therapy with Rocephin for possible UTI although urine specimen is poor with many squamous cells. Antibiotic coverage was started as patient does have tachycardia due to AFib with burst of tachycardia and mild leukocytosis and lactic acidosis concerning for sepsis. Patient did receive 2 fluid boluses of 250 mL each with improvement and tachycardia and blood pressure. The patient's soft blood pressures could also be due to volume depletion given she had 3 L of fluid taken off during hemodialysis on the . Nephrology will be consulted for dialysis management if the patient is still hospitalized on Tuesday. Currently the patient's electrolyte panel is stable. She will remain on a renal dialysis diet. Her glucoses were elevated on admission and she is on chronic insulin therapy. Will resume Lantus but decrease home dose and will place patient on moderate dose sliding scale insulin with Accu-Cheks a.c. HS and hypoglycemia protocol as needed. Review H&P notes and ER Notes, patient stats feels tired and wants to sleep, most likely due possibly to recent dialysis, upon arrival patient white counts were elevated and urine is quite dirty, suspicious for UTI being treated with ceftriaxone, patient nares swab is positive for MRSA will start Vancomycin and place patient on isolation. will PT/OT evaluate the patient, patient stats feels little better compared to when she arrived, patient will benefit going to rehab. patient will be seen hard metals engraver hand and will have scheduled dialysis. WBC: 11.8, 9.2, 9.6, 12.6 Lactic: 2.5, 2.1 Elevated HR since 07/05 low B/p documented of: 90/71, 97/56, 99/52 <Precious Schulz RN - Last Filed: 07/08/25 11:21> Clarified Diagnosis Clarified Diagnosis: Most likely UTI is stemming from chronic indwelling catheter and urine culture grew pseudomonas, patient did not have sepsis and it was ruled out. <Deysi Michel MD - Last Filed: 07/14/25 10:59>
--- NOTE | 2025-07-08 11:40 | P.PNIM_ITS ---
Progress Note: A&P Assessment and Plan (1) Abnormal urinalysis: Code(s): R82.90 - Unspecified abnormal findings in urine Status: Acute (2) Chronic indwelling Braswell catheter: Code(s): Z97.8 - Presence of other specified devices Status: Acute (3) Atrial fibrillation: Qualifiers: Atrial fibrillation type: unspecified Qualified Code(s): I48.91 - Unspecified atrial fibrillation Code(s): I48.91 - Unspecified atrial fibrillation Status: Acute (4) Lactic acidosis: Code(s): E87.20 - Acidosis, unspecified Status: Acute (5) Type 2 diabetes mellitus with hyperglycemia: Qualifiers: Diabetes mellitus chcf insulin use: without longwall foreman use Qualified Code(s): E11.65 - Type 2 diabetes mellitus with hyperglycemia Code(s): E11.65 - Type 2 diabetes mellitus with hyperglycemia Status: Acute (6) ESRD (end stage renal disease): Code(s): N18.6 - End stage renal disease Status: Chronic Plan Patient presented with nausea vomiting and urine in the patient's chronic indwelling Braswell catheter suggest a possible UTI. Patient is already receiving antibiotic therapy at the nursing facility. Culture results were not available for review. The patient's Braswell catheter was removed in the ER but patient refused to have the catheter replaced or to have a straight catheterization in the ER and is still refusing to have the catheter replaced. Subsequently the urine specimen that was sent down to lab for evaluation came from the old catheter that had been in place for at least 3 weeks. Patient been started on empiric antibiotic therapy with Rocephin for possible UTI although urine specimen is poor with many squamous cells. Antibiotic coverage was started as patient does have tachycardia due to AFib with burst of tachycardia and mild leukocytosis and lactic acidosis concerning for sepsis. Patient did receive 2 fluid boluses of 250 mL each with improvement and tachycardia and blood pressure. The patient's soft blood pressures could also be due to volume depletion given she had 3 L of fluid taken off during hemodialysis on the . Nephrology will be consulted for dialysis management if the patient is still hospitalized on Tuesday. Currently the patient's electrolyte panel is stable. She will remain on a renal dialysis diet. Her glucoses were elevated on admission and she is on chronic insulin therapy. Will resume Lantus but decrease home dose and will place patient on moderate dose sliding scale insulin with Accu-Cheks a.c. HS and hypoglycemia protocol as needed. Review H&P notes and ER Notes, patient stats feels tired and wants to sleep, most likely due possibly to recent dialysis, upon arrival patient white counts were elevated and urine is quite dirty, suspicious for UTI being treated with ceftriaxone, patient nares swab is positive for MRSA, started Vancomycin and place patient on isolation. patient urine and blood culture are pending, PT/OT to evaluate the patient, patient will have her scheduled dialysis today, patient stats feels little better compared to when she arrived, patient will benefit going to rehab. patient will be seen variety performer and will have scheduled dialysis. Subjective Date/time seen: 07/08/25 11:40 Interval history: Nausea and vomiting H&P-Narrative: 80-year-old female with a past medical history of dementia, end-stage renal disease on hemodialysis Tuesday, CHF, essential hypertension, atrial fibrillation on chronic anticoagulation with Eliquis, diabetes and multiple other comorbidities who presented to the ER via EMS from [facility] and rehab after patient's daughter called EMS due to weakness. The patient's daughter reported that the patient usually has nausea vomiting following dialysis. Ever since dialysis on Tuesday she has been having intermittent nausea vomiting. She had not vomited on Tuesday before EMS was call ed but the daughter was concerned because the patient was more weak than usual. Review H&P notes and ER Notes, patient stats feels tired and wants to sleep, most likely due possibly to recent dialysis, upon arrival patient white counts were elevated and urine is quite dirty, suspicious for UTI being treated with ceftriaxone, patient nares swab is positive for MRSA, started Vancomycin and place patient on isolation. patient urine and blood culture are pending, PT/OT to evaluate the patient, patient will have her scheduled dialysis today, patient stats feels little better compared to when she arrived, patient will benefit going to rehab. patient will be seen variety performer and will have scheduled dialysis. Review of Systems Review of Systems: Unobtainable due to patient's lethargy and dementia Objective Data Vital Signs Vital Signs: Vital Signs - 24 hr 07/07/25 12:00 07/07/25 16:00 07/07/25 16:00 Temperature 37.6 C 37.0 C Pulse Rate 112 H 113 H 102 H Respiratory Rate 28 H 26 H Blood Pressure 117/61 110/66 Pulse Oximetry 99 100 Oxygen Delivery Oxygen Flow Rate 07/07/25 20:00 07/07/25 20:00 07/07/25 20:28 Temperature 36.8 C Pulse Rate 115 H 103 H Respiratory Rate 18 Blood Pressure 100/50 L Pulse Oximetry 98 99 Oxygen Delivery Nasal Cannula Oxygen Flow Rate 2 07/07/25 21:27 07/08/25 00:00 07/08/25 00:30 Temperature 36.9 C Pulse Rate 103 H 106 H 95 Respiratory Rate 16 Blood Pressure 137/67 Pulse Oximetry 98 Oxygen Delivery Oxygen Flow Rate 07/08/25 04:00 07/08/25 04:42 07/08/25 06:49 Temperature 36.3 C L Pulse Rate 101 H 111 H 145 H Respiratory Rate 22 H Blood Pressure 108/66 Pulse Oximetry 99 Oxygen Delivery Oxygen Flow Rate 07/08/25 07:29 07/08/25 08:00 07/08/25 08:00 Temperature 35.9 C L Pulse Rate 125 H 82 104 H Respiratory Rate 20 Blood Pressure 149/110 H Pulse Oximetry 99 Oxygen Delivery Oxygen Flow Rate Intake/Output Intake/Output: Intake & Output 07/05/25 07/06/25 07/07/25 07/08/25 23:59 23:59 23:59 23:59 Intake Total 1112.3 570 530 720 Output Total 0 Balance 1112.3 570 530 720 Meds/Results Medications: Active Medications Generic Name Dose Route Start Last Admin Trade Name Freq PRN Reason Stop Dose Admin Acetaminophen 650 mg 07/06/25 06:42 07/06/25 16:45 Acetaminophen 325 Mg Tablet PO 650 mg Q4H PRN Administration Pain 1-3 or fever Apixaban 5 mg 07/06/25 09:00 07/08/25 08:14 Apixaban 5 Mg Tablet PO 5 mg Q12HR BIANKA Administration Aripiprazole 2.5 mg 07/06/25 21:00 07/07/25 21:29 Aripiprazole 2.5 Mg Tablet PO Not Given QHS BIANKA Buspirone HCl 5 mg 07/06/25 06:55 07/08/25 05:14 Buspirone Hcl 5 Mg Tablet PO 5 mg Q8HR BIANKA Administration Cyanocobalamin 1,000 mcg 07/06/25 09:00 07/08/25 08:14 Cyanocobalamin 1,000 Mcg Tablet PO 1,000 mcg DAILY BIANKA Administration Dextrose 12.5 gm 07/06/25 06:46 Dextrose 50% 25 Gm/50 Ml Syringe IV PUSH PRN PRN Hypoglycemia Protocol Docusate Sodium 200 mg 07/06/25 09:00 07/08/25 08:14 Docusate Sodium 100 Mg Capsule PO 200 mg Q12HR BIANKA Administration Epoetin Austin-epbx 10,000 units 07/08/25 18:00 Epoetin Austin-Epbx 10,000 Units/Ml Vial IV PUSH 07/08/25 18:01 ONCE ONE Ferrous Sulfate 325 mg 07/08/25 09:00 07/08/25 08:20 Ferrous Sulfate 325 Mg Tablet PO 325 mg MoWeFr BIANKA Administration Fluconazole 150 mg 07/06/25 09:00 07/06/25 14:24 Fluconazole 150 Mg Tablet PO 150 mg Sa@0900 BIANKA Administration Glucagon 1 mg 07/06/25 06:46 Glucagon For Inj 1 Mg Vial IM PRN PRN Hypoglycemia Protocol Glucose 15 gm 07/06/25 06:46 Glucose Oral Gel 15 Gm Of Glucse In 37.5 Gm Tube PO PRN PRN Hypoglycemia Protocol Dextrose 1,000 mls @ 100 mls/hr 07/06/25 06:46 Dextrose 5% 1,000 Ml IVPB PRN PRN Hypoglycemia Protocol Ceftriaxone Sodium 1 gm/ 50 mls @ 100 mls/hr 07/06/25 21:00 07/07/25 21:59 Sodium Chloride IVPB Infused Q24H BIANKA Infusion Vancomycin HCl 1,000 mg/ 250 mls @ 250 mls/hr 07/08/25 11:00 Sodium Chloride IVPB 07/08/25 11:59 ONCE ONE Albumin Human 50 mls @ 999 mls/hr 07/08/25 10:51 Albutein IVPB 08/07/25 10:50 Q10M PRN HYPOTENSION Sodium Chloride 1,000 mls @ 999 mls/hr 07/08/25 10:51 Normal Saline Iv IV CONT 07/08/25 11:51 .Q1H1M ONE Insulin Aspart 3 - 6 units 07/06/25 08:00 07/08/25 08:08 Insulin Aspart (*Bkc) 100 Units/Ml SUB-Q Not Given TIDWM BIANKA Protocol Insulin Aspart 1 - 3 units 07/06/25 21:00 07/07/25 21:28 Insulin Aspart (*Bkc) 100 Units/Ml SUB-Q Not Given HS [facility] Protocol Insulin Glargine 20 units 07/06/25 09:00 07/08/25 08:18 Insulin Glargine (*Bkc) 100 Units/Ml SUB-Q 20 units QAM BIANKA Administration Lidocaine/Prilocaine 1 each 07/08/25 10:58 Lidocaine/Prilocaine Cream 2.5-2.5% Tube TOPICAL WITH DIALYSIS PRN for dialysis Protocol Loratadine 10 mg 07/06/25 06:55 Loratadine 10 Mg Tablet PO DAILY PRN allergy symptoms Methylphenidate HCl 10 mg 07/06/25 08:00 07/08/25 08:13 Methylphenidate Hcl (*Crx) 10 Mg Tablet PO 10 mg BIDWM BIANKA Administration Metoprolol Tartrate 25 mg 07/06/25 09:00 07/08/25 06:49 Metoprolol Tartrate 25 Mg Tablet PO 25 mg Q12HR BIANKA Administration Non-Formulary Medication 30 mg 07/08/25 17:00 Tenapanor [Xphozah] PO 08/07/25 16:59 BID BIANKA Ondansetron HCl 4 mg 07/07/25 17:56 07/07/25 18:18 Ondansetron Hcl Odt 4 Mg Tablet PO 4 mg Q6H PRN Administration Nausea And Vomiting Rosuvastatin Calcium 10 mg 07/06/25 09:00 07/08/25 08:15 Rosuvastatin 10 Mg Tablet PO 10 mg DAILY BIANKA Administration Sertraline HCl 50 mg 07/06/25 09:00 07/08/25 08:15 Sertraline Hcl 50 Mg Tablet PO 50 mg DAILY BIANKA Administration Simethicone 250 mg 07/06/25 06:42 Simethicone 125 Mg Chew Tab PO TIDWM PRN Abdominal Distention Simethicone 250 mg 07/06/25 21:00 Simethicone 125 Mg Chew Tab PO QHS PRN Abdominal Distention Vancomycin HCl 1 each 07/06/25 11:34 Vancomycin For Hemodialysis IVPB PRN PRN Vancomycin Protocol Zolpidem Tartrate 5 mg 07/06/25 21:00 07/07/25 21:28 Zolpidem Tartrate (*Crx) 5 Mg Tablet PO 5 mg QHS BIANKA Administration Radiology Results: ITS Impressions Chest X-Ray 07/05/25 20:42 Impression: 1: Cardiomegaly with mild interstitial edema. Labs Labs: Laboratory Results - last 24 hr 07/07/25 07/07/25 07/07/25 11:01 16:12 20:31 WBC RBC Hgb Hct MCV MCH MCHC RDW Plt Count MPV Sodium Potassium Chloride Carbon Dioxide Anion Gap BUN Creatinine Estim Creat Clear Calc Estimated GFR Glucose POC Capillary Glucose 209 H 220 H 182 H Calcium Phosphorus Magnesium Albumin Random Vancomycin Hep Bs Antigen Hep Bs Antibody 07/08/25 07/08/25 05:45 08:05 WBC 12.6 H RBC 3.16 L Hgb 9.3 L Hct 30.6 L MCV 96.8 MCH 29.4 MCHC 30.4 L RDW 14.8 H Plt Count 255 MPV 9.8 Sodium 132 L Potassium 5.0 Chloride 94 L Carbon Dioxide 25 Anion Gap 13 H BUN 69 H D Creatinine 6.62 H Estim Creat Clear Calc 8 Estimated GFR 6 L Glucose 142 H POC Capillary Glucose 126 H Calcium 10.2 Phosphorus 8.4 H Magnesium 1.8 Albumin 3.4 L Random Vancomycin 16.1 Hep Bs Antigen Negative Hep Bs Antibody Positive Quality VTE Prophylaxis VTE prophylaxis: pharmacologic ordered (Continue home Eliquis)
[2025-07-08] MEDS: INSULIN ASPART (*BKC) 100 UNITS/ML SUB-Q (12:37)
[2025-07-08] MEDS: LIDOCAINE/PRILOCAINE CREAM 2.5-2.5% TUBE 1 EACH TOPICAL (14:46)
--- NOTE | 2025-07-08 17:15 | P.PNNP_ITS ---
Progress Note: A&P Assessment and Plan (1) ESRD (end stage renal disease): Code(s): N18.6 - End stage renal disease Status: Chronic Assessment and Plan: * HD today * continue Tue/Tue/Tuesday dialysis schedule while hospitalized * follow electrolytes, volume status, and clearance FULL CONSULT TO FOLLOW... Subjective Date/time seen: 07/08/25 17:15 Interval history: Following for end stage renal disease on hemodialysis. Tolerating dialysis treatment at the time of my visit (seen on HD at 5:05PM); no apparent distress noted other that tactile pain in her lower extremities; mentation seems at baseline; no other issues/events overnight or earlier this AM. Exam 2 Narrative: General: elderly but WD/WN female in NAD Heart: normal S1 and S2; no rub Lungs: coarse breath sounds Abdomen: soft, nontender, nondistended, positive bowel sounds Extremities: no cyanosis or clubbing; trace edema Skin: warm and dry Objective Data Vital Signs Vital Signs: Vital Signs Temp Pulse Resp BP Pulse Ox O2 Del Method O2 Flow Rate 07/08/25 17:15 102 H 117/64 07/08/25 17:00 102 H 120/70 07/08/25 16:45 85 112/59 L 07/08/25 16:30 104 H 111/64 07/08/25 16:15 109 H 132/72 07/08/25 16:00 107 H 131/72 07/08/25 16:00 59 L 131/72 98 07/08/25 16:00 109 H 07/08/25 15:45 97 128/68 07/08/25 15:33 108 H 125/71 07/08/25 15:15 98.1 F 97 18 111/64 07/08/25 15:15 2 07/08/25 12:00 119 H 07/08/25 11:55 98.1 F 98 20 144/91 H 100 07/08/25 08:00 104 H 07/08/25 08:00 96.7 F L 82 20 149/110 H 99 07/08/25 07:29 125 H 07/08/25 06:49 145 H 07/08/25 04:42 97.4 F L 111 H 22 H 108/66 99 07/08/25 04:00 101 H 07/08/25 00:30 98.4 F 95 16 137/67 98 07/08/25 00:00 106 H 07/07/25 21:27 103 H 07/07/25 20:28 98.3 F 103 H 18 100/50 L 99 07/07/25 20:00 98 Nasal Cannula 2 07/07/25 20:00 115 H Intake/Output Intake/Output: Intake & Output 07/05/25 07/06/25 07/07/25 07/08/25 23:59 23:59 23:59 23:59 Intake Total 1112.3 508 675 2963 Output Total 0 Balance 1112.3 342 817 3230 Meds/Results Medications: Active Medications Generic Name Dose Route Start Last Admin Trade Name Freq PRN Reason Stop Dose Admin Acetaminophen 650 mg 07/06/25 06:42 07/06/25 16:45 Acetaminophen 325 Mg Tablet PO 650 mg Q4H PRN Administration Pain 1-3 or fever Apixaban 5 mg 07/06/25 09:00 07/08/25 08:14 Apixaban 5 Mg Tablet PO 5 mg Q12HR BIANKA Administration Aripiprazole 2.5 mg 07/06/25 21:00 07/07/25 21:29 Aripiprazole 2.5 Mg Tablet PO Not Given QHS BIANKA Buspirone HCl 5 mg 07/06/25 06:55 07/08/25 18:18 Buspirone Hcl 5 Mg Tablet PO Not Given Q8HR BIANKA Cyanocobalamin 1,000 mcg 07/06/25 09:00 07/08/25 08:14 Cyanocobalamin 1,000 Mcg Tablet PO 1,000 mcg DAILY BIANKA Administration Dextrose 12.5 gm 07/06/25 06:46 Dextrose 50% 25 Gm/50 Ml Syringe IV PUSH PRN PRN Hypoglycemia Protocol Docusate Sodium 200 mg 07/06/25 09:00 07/08/25 08:14 Docusate Sodium 100 Mg Capsule PO 200 mg Q12HR BIANKA Administration Ferrous Sulfate 325 mg 07/08/25 09:00 07/08/25 08:20 Ferrous Sulfate 325 Mg Tablet PO 325 mg MoWeFr BIANKA Administration Fluconazole 150 mg 07/06/25 09:00 07/06/25 14:24 Fluconazole 150 Mg Tablet PO 150 mg Sa@0900 BIANKA Administration Glucagon 1 mg 07/06/25 06:46 Glucagon For Inj 1 Mg Vial IM PRN PRN Hypoglycemia Protocol Glucose 15 gm 07/06/25 06:46 Glucose Oral Gel 15 Gm Of Glucse In 37.5 Gm Tube PO PRN PRN Hypoglycemia Protocol Dextrose 1,000 mls @ 100 mls/hr 07/06/25 06:46 Dextrose 5% 1,000 Ml IVPB PRN PRN Hypoglycemia Protocol Ceftriaxone Sodium 1 gm/ 50 mls @ 100 mls/hr 07/06/25 21:00 07/07/25 21:59 Sodium Chloride IVPB Infused Q24H BIANKA Infusion Vancomycin HCl 1,000 mg/ 250 mls @ 250 mls/hr 07/08/25 19:00 Sodium Chloride IVPB 07/08/25 19:59 ONCE ONE Albumin Human 50 mls @ 999 mls/hr 07/08/25 10:51 Albutein IVPB 08/07/25 10:50 Q10M PRN HYPOTENSION Insulin Aspart 3 - 6 units 07/06/25 08:00 07/08/25 12:37 Insulin Aspart (*Bkc) 100 Units/Ml SUB-Q 3 units TIDWM BIANKA Administration Protocol Insulin Aspart 1 - 3 units 07/06/25 21:00 07/07/25 21:28 Insulin Aspart (*Bkc) 100 Units/Ml SUB-Q Not Given HS BIANKA Protocol Insulin Glargine 20 units 07/06/25 09:00 07/08/25 08:18 Insulin Glargine (*Bkc) 100 Units/Ml SUB-Q 20 units QAM BIANKA Administration Lidocaine/Prilocaine 1 each 07/08/25 10:58 07/08/25 14:46 Lidocaine/Prilocaine Cream 2.5-2.5% Tube TOPICAL 1 each WITH DIALYSIS PRN Administration for dialysis Protocol Loratadine 10 mg 07/06/25 06:55 Loratadine 10 Mg Tablet PO DAILY PRN allergy symptoms Methylphenidate HCl 10 mg 07/06/25 08:00 07/08/25 08:13 Methylphenidate Hcl (*Crx) 10 Mg Tablet PO 10 mg BIDWM BIANKA Administration Metoprolol Tartrate 25 mg 07/06/25 09:00 07/08/25 06:49 Metoprolol Tartrate 25 Mg Tablet PO 25 mg Q12HR BIANKA Administration Non-Formulary Medication 30 mg 07/08/25 17:00 Tenapanor [Xphozah] PO 08/07/25 16:59 BID BIANKA Ondansetron HCl 4 mg 07/07/25 17:56 07/07/25 18:18 Ondansetron Hcl Odt 4 Mg Tablet PO 4 mg Q6H PRN Administration Nausea And Vomiting Rosuvastatin Calcium 10 mg 07/06/25 09:00 07/08/25 08:15 Rosuvastatin 10 Mg Tablet PO 10 mg DAILY BIANKA Administration Sertraline HCl 50 mg 07/06/25 09:00 07/08/25 08:15 Sertraline Hcl 50 Mg Tablet PO 50 mg DAILY BIANKA Administration Simethicone 250 mg 07/06/25 06:42 Simethicone 125 Mg Chew Tab PO TIDWM PRN Abdominal Distention Simethicone 250 mg 07/06/25 21:00 Simethicone 125 Mg Chew Tab PO QHS PRN Abdominal Distention Vancomycin HCl 1 each 07/06/25 11:34 Vancomycin For Hemodialysis IVPB PRN PRN Vancomycin Protocol Zolpidem Tartrate 5 mg 07/06/25 21:00 07/07/25 21:28 Zolpidem Tartrate (*Crx) 5 Mg Tablet PO 5 mg QHS BIANKA Administration Radiology Results: ITS Impressions Chest X-Ray 07/08/25 19:07 IMPRESSION: 1. No significant change or worsening. 2. Mild interstitial pulmonary edema. Labs Labs: Laboratory Tests 07/08/25 05:45 07/08/25 05:45 Calcium 10.2 Phosphorus 8.4 H Magnesium 1.8 Albumin 3.4 L Random Vancomycin 16.1 Hep Bs Antigen Negative Hep Bs Antibody Positive Microbiology 07/05/25 21:19 Blood Blood Culture - Preliminary 07/05/25 22:16 Blood Blood Culture - Preliminary
[2025-07-08] MEDS: EPOETIN ALFA-EPBX 10,000 UNITS/ML VIAL 10000 UNITS IV PUSH (18:30)
[2025-07-08] MEDS: SODIUM CHLORIDE 0.9% IV 1,000 ML 999 ML IV CONT (19:16)
[2025-07-08] MEDS: VANCOMYCIN HCL 1,000 MG in SODIUM CHLORIDE 0.9% IV 250 ML 250 MG IVPB (21:24)
[2025-07-08] MEDS: ZOLPIDEM TARTRATE (*CRX) 5 MG TABLET PO (21:49)
[2025-07-08] MEDS: ARIPiprazole 2.5 MG TABLET PO (21:50)
[2025-07-08] MEDS: INSULIN ASPART (*BKC) 100 UNITS/ML 7 UNITS SUB-Q (23:34)
[2025-07-09] VITALS (11 sets, daily range): BP systolic 79–113; BP diastolic 34–74; PULSE 85–113; RESP 17–30; TEMP 36.2–36.7; O2SAT 93–100
[2025-07-09] MEDS: cefTRIAXone 1 GM in SODIUM CHLORIDE 0.9% IV 50 ML 100 ML IVPB ×2 (01:55→21:45)
[2025-07-09] MEDS: SODIUM CHLORIDE 0.9% IV 500 ML 250 ML IV CONT (03:41)
[2025-07-09 06:20] LABS: Hematocrit 28.5 % (37.0-47.0); Hemoglobin 8.5 g/dL (12.0-15.0); Mean Corpuscular HGB Conc 29.8 g/dl (32-36); Mean Corpuscular Hemoglobin 29.1 pg (26-34); Mean Corpuscular Volume 97.6 fl (80-100); Platelet Count Result 217 k/mm3 (150-375); Red Blood Count 2.92 M/mm3 (4.2-5.4); White Blood Count 8.2 K/mm3 (4.5-10.0)
[2025-07-09 06:49] LABS: Albumin Level 3.0 g/dL (3.5-5.1); Anion Gap 9 mmol/L (4-12); Blood Urea Nitrogen 32 mg/dL (7-17); Calcium 9.6 mg/dL (8.4-10.2); Carbon Dioxide 30 mmol/L (22-30); Chloride 98 mmol/L (98-107); Estimated CRCL calculation 16 ml/min; Estimated Glomerular Filt Rate 13; Glucose 136 mg/dL (65-110); Magnesium 1.9 mg/dL (1.6-2.3); Potassium 3.7 mmol/L (3.4-5.0); Sodium 137 mmol/L (137-145)
[2025-07-09] MEDS: METOPROLOL TARTRATE 25 MG TABLET PO ×2 (08:47→21:45)
[2025-07-09] MEDS: SERTRALINE HCL 50 MG TABLET PO (08:49)
[2025-07-09] MEDS: methylPHENIDATE HCL (*CRX) 10 MG TABLET PO ×2 (08:49→16:51)
[2025-07-09] MEDS: ROSUVASTATIN 10 MG TABLET PO (08:49)
[2025-07-09] MEDS: APIXABAN 5 MG TABLET PO ×2 (08:49→21:45)
[2025-07-09] MEDS: DOCUSATE SODIUM 100 MG CAPSULE 200 MG PO ×2 (08:49→21:45)
--- NOTE | 2025-07-09 09:37 | P.CONNP_ITS ---
Assessment and Plan Assessment and plan (1) ESRD (end stage renal disease): Code(s): N18.6 - End stage renal disease Status: Chronic Assessment and Plan: * HD today * continue Tue/Tue/Tuesday dialysis schedule while hospitalized * follow electrolytes, volume status, and clearance (2) Nausea & vomiting: Code(s): R11.2 - Nausea with vomiting, unspecified Status: Acute Assessment and Plan: * noted by history * no further episodes since admission * PRN IV antiemetics * due to #3(?) (3) Acute UTI: Code(s): N39.0 - Urinary tract infection, site not specified Status: Acute Assessment and Plan: * admission urinalysis highly suggestive * although was not really clean sample * complicated by previous indwelling christianson catheter * on antibiotics * follow culture data (4) Anemia: Code(s): D64.9 - Anemia, unspecified Status: Chronic Assessment and Plan: * due to ESRD and acute illness * follow trend of H/H * Epogen with HD (5) Bilateral lower extremity pain: Code(s): M79.604 - Pain in right leg; M79.605 - Pain in left leg Status: Acute Assessment and Plan: * voiced by daughter and patient * quite tender with any deep palpation * no associated wounds or trauma or associated swelling/edema * check lower extremity dopplers (6) DM type 2 (diabetes mellitus, type 2): Onset Date: ~2018 Qualifiers: 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 Thank you for allowing me to participate in the care of this patient. L History of Present Illness Reason for Consult Consult date: 07/09/25 Reason for consult: end stage renal disease Chief Complaint Chief complaint: sepsis, UTI History of Present Illness Narrative: The patient is a 80-year-old female with extensive past medical history as outlined below who presented to [facility] Emergency Room via EMS from her nursing facility due to generalized weakness and not feeling well. According to the patient's daughter, the patient has issues with chronic nausea and vomiting usually following her dialysis treatment. However, ever since her dialysis treatment last Tuesday, she has been having more persistent nausea and vomiting intermittently even on her non dialysis days. Coupled with these GI symptoms, her daughters seem to think that the patient was a bit or weaker than her usual baseline. There were no reported symptoms of chest pain, shortness of breath, abdominal pain, diarrhea, dizziness, lightheadedness, or syncope. Given this change in her overall condition, EMS was called and she was subsequently transported to the emergency room for further assessment. Workup and evaluation in the emergency room demonstrated the patient to be afebrile, tachycardic, and a systolic BP in the 90s systolic (which apparently is a chronic/baseline issue). routine blood work was performed which demonstrated an elevated white blood cell count 11.8, relative anemia with a hemoglobin 9.5, normal platelet count, sodium 132, potassium 4.5, chloride 95, bicarb 24, BUN 37, creatinine 3.58, glucose 259, calcium 9.5, magnesium 1.9, albumin of 3.3. Her lipase was normal at 86 as were her liver function tests. However, her lactic acid was mildly elevated at 2.5 and viral testing for influenza/RSV/COVID was negative. She was noted have a chronic indwelling Christianson catheter secondary to her history of stress urinary incontinence and a urine sample was obtained which demonstrated clear evidence of a infection although given the chronic nature of this Christianson catheter, attempt was made to remove the current Christianson catheter and place a new one with a fresh sample with the patient was not cooperative with this intervention so the Christianson catheter was not replaced. Given her relative hypotension, she did receive a small fluid bolus in the ER as well with improvement if not stability in her blood pressure. No further nausea and vomiting was noted while she was in the emergency room. After appropriate cultures were obtained, she was initiated on IV antibiotics and subsequently admitted to the hospital for further evaluation therapy. Since her admission, the patient appears to be clinically improving with ongoing therapy although she does report a significant amount of lower extremity pain with any touch/tactile stimulation of her lower extremities although it is difficult for the patient to elaborate when this occurred and over what duration of time. Renal consultation was requested due to her end-stage renal disease. The patient is quite familiar to me as I take care of her outpatient dialysis needs. She normally dialyzes on a Tuesday, Tuesday, Tuesday dialysis schedule at [facility] under my care. From a dialysis perspective, she has been doing reasonably well although there are times when fluid removal is somewhat challenging due to her soft blood pressures at times. However, given her underlying cardiomyopathy and her propensity for fluid retention, ongoing attempts for fluid removal during dialysis treatments are always attempted in spite of her low blood pressure and sometimes she tolerates these interventions reasonably well. As already mentioned above, she does have some issues and problems with nausea and vomiting on her dialysis days but more recently she has been having more persistent nausea and vomiting in general as mentioned above. Since her admission to [facility], she received dialysis yesterday as per her normal routine dialysis schedule and tolerated this intervention reasonably well. Currently, at the time my evaluation, she appears to be in no acute distress. Review of Systems 2 Review of Systems: As per HPI. [facility] Past Medical History Medical History (Updated 07/09/25 @ 12:50 by Cristofer Schwarz MD) Anxiety Frequent UTI Chronic indwelling Christianson catheter BMI 38.0-38.9,adult Chronic back pain Seasonal allergies Hypercalcemia Cataract of right eye CHELSEA on CPAP Intolerant to CPAP Narcolepsy Poorly documented CHF (congestive heart failure) Echocardiogram 2021 from [facility]: Left ventricular size mildly enlarged left ventricular systolic function moderately depressed with EF of 35-40%, mild concentric left ventricular hypertrophy, diastolic dysfunction indeterminate due to AFib, moderate global hypokinesis, moderate right ventricular enlargement with normal right ventricular systolic function, severe left atrial volume overload greater than 48 mL, moderate right atrial enlargement, mildly dilated aortic root mild aortic regurgitation Dementia Depression Knee pain Thoracic aortic aneurysm Vitamin B12 deficiency Constipation History of orthostatic hypotension Left ventricular outflow obstruction echocardiogram May 2020 Stress incontinence in female Osteoporosis DEXA scan 08/14/2020 Hearing loss of both ears Vitamin D deficiency Carotid bruit less than 50% stenosis of right internal carotid artery a on Doppler 07/01/2020 Kidney stones of the left kidney with multiple lithotripsies Cancer of right breast status post radiation and chemotherapy Thyroid nodule (~2014) Overactive bladder A-fib Hyperlipidemia 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 DM type 2 (diabetes mellitus, type 2) (~2018) Benign essential hypertension Surgical History Surgical History Status post right cataract extraction Status post cataract extraction and insertion of intraocular lens of right eye Status post right breast lumpectomy Family History Family History (Updated 07/06/25 @ 04:09 by Erick Mendez RN) Sibling Diabetes mellitus Father Diabetes mellitus CHF (congestive heart failure) Kidney failure Mother Cervical cancer Ovarian cancer Sibling Diabetes mellitus Brain bleed Hypertension Cerebrovascular accident Social History Social History (Updated 07/06/25 @ 06:59 by Eduarda Flores DO) Social History: She resides [facility]. She is . She is a lifelong nonsmoker and does not drink alcohol or use illicit substances. She is retired from the [employer]. Code status: Full code Surrogate decision maker: Daughter Smoking status: Never smoker Second hand tobacco smoke exposure: No Alcohol intake: never Substance use: never Substance use type: does not use Do You Feel Safe in your Home?: Yes Lack of Transportation: No Lack of Food: Never True Current Housing: I Have Housing Concerned About Future Housing: No Difficulty Paying Gas/Electric Bills: No Difficulty Paying for Meds: No Currently Unemployed: No Education: High School Diploma/GED Difficulty w/ Childcare or Family Care: No Living arrangements: skilled nursing Occupation/Education: retired 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 Gender identity (if verbalized by the patient): Female Sexual Orientation (if Verbalized by the Patient): Straight or Heterosexual Spiritual care concerns: Yes Agree to blood products: Yes Meds Home Medications and Allergies Home Medications ?Medication ?Instructions ?Recorded ?Confirmed ?Type cyanocobalamin (vitamin B-12) 1,000 mcg PO DAILY 08/1807/06/25 History 1,000 mcg tablet ferrous sulfate 324 mg (65 mg 325 mg PO EVERY OTHER DA Y 01/11/22 07/06/25 History iron) tablet,delayed release cranberry 500 mg capsule 500 mg PO TID 01/16/2407/06 History nitroglycerin 0.4 mg sublingual 0.4 mg sublingual Q5M PRN Chest 02/03/24 07/06/25 Rx tablet Pain #25 tabs insulin aspart U-100 100 unit/mL See Rx Instructions s ubcut 03/21/24 07/06/25 Rx subcutaneous solution (Novolog .COMPLEX #10 mL U-100 Insulin aspart) fluconazole 150 mg tablet 150 mg PO WEEKLY 04/24/24 History blood-glucose sensor (FreeStyle #1 ea 05/29/24 5 Rx Robbi 3 Sensor device) zolpidem 5 mg tablet (Ambien) 5 mg PO QHS #90 tabs 07/06/25 Rx ondansetron 4 mg disintegrating 4 mg PO Q6H PRN nausea and vomiting 09/04/24 07/06/25 History tablet apixaban 5 mg tablet (Eliquis) 5 mg PO BID #180 tabs 0 11/07/24 07/06/25 Rx dextromethorphan-guaifenesin ER 60 1 tablet PO Q12H MN N congestion 11/21/24 07/06/25 History mg-1,200 mg tab,extend release,12hr (Mucinex DM) pen needle, diabetic 32 gauge x #100 ea 11/30/2407/06 Rx (BD Lindsay 2nd Gen Pen Needle) cetirizine 10 mg capsule (All Day 10 mg PO DAILY PRN a llergy 01/21/25 07/06/25 Rx Allergy (cetirizine)) symptoms #90 caps simethicone 125 mg capsule (Gas-X 250 mg (2 x 125 mg) PO DAILY PRN 02/18/25 07/06/25 Rx Extra Strength) abdominal distention #20 cap s buspirone 5 mg tablet See Rx Instructions .Route 0 02/25/25 07/06/25 Rx .COMPLEX #270 tabs acetaminophen 500 mg capsule 500 mg PO Q6H PRN cHONIC BACK PAIN 02/26/25 07/06/25 History docusate sodium 100 mg capsule 200 mg PO BID 02/26/25 07/06/25 History insulin glargine 100 unit/mL (3 25 unit (0.25 mL) subc ut QAM #15 mL 04/01/25 07/06/25 Rx mL) subcutaneous pen (Lantus Solostar U-100 Insulin) Thigh High SANDOVAL hose #3 pkgs 04/30/25 07/06/25 Rx aripiprazole 2 mg tablet See Rx Instructions .Route 0 04/30/25 07/06/25 Rx .COMPLEX #135 tabs rosuvastatin 10 mg tablet 10 mg PO DAILY #90 tabs 06/1707/06/25 Rx sertraline 50 mg tablet 50 mg PO DAILY #90 tabs 06/1707/06/25 Rx nystatin 100,000 unit/gram topical 1 applic topical BI D #60 grams 06/04/25 07/06/25 Rx powder dicloxacillin 250 mg capsule 250 mg PO BID 10 days #20 caps 07/01/25 07/06/25 Rx methylphenidate HCl 10 mg tablet 10 mg PO BIDWMEAL #60 tabs 07/04/25 07/06/25 Rx acetaminophen 650 mg 650 mg PO Q4H PRN GENERAL 07/06/25 History tablet,extended release DISCOMFORT metoprolol tartrate 25 mg tablet 25 mg PO BID 07/06/25 07/06/25 History tenapanor 30 mg tablet (Xphozah) 30 mg PO QPM 07/06/25 07/06/25 History tizanidine 2 mg capsule (Zanaflex) 2 mg PO Q8H PRN mus jacob spasticity 07/06/25 07/06/25 History Allergies Allergy/AdvReac Type Severity Reaction Status Date / Time Sulfa (Sulfonamide Allergy Severe Rash Verified 01/17/25 14:55 Antibiotics) bupropion (From Wellbutrin) Allergy Intermediate Unknown Verified 01/17/25 14:55 Vital Signs Vital Signs Temp Pulse Resp BP Pulse Ox O2 Del Method O2 Flow Rate 07/09/25 09:25 96 Room Air 07/09/25 08:47 85 07/09/25 08:00 97.1 F L 101 H 113/74 100 07/09/25 04:00 97.2 F L 96 17 98/51 L 100 07/09/25 04:00 110 H 07/09/25 03:35 79/34 L 07/09/25 03:10 99/45 L 07/09/25 00:00 105 H 07/08/25 23:46 99.0 F 103 H 17 100/44 L 98 07/08/25 21:52 101 H 07/08/25 20:00 125 H 07/08/25 20:00 98 Nasal Cannula 2 07/08/25 20:00 98.3 F 110 H 19 116/52 L 98 07/08/25 19:09 97.9 F 101 H 18 97/53 L 98 07/08/25 19:03 88 91/47 L 07/08/25 18:45 65 95/38 L 07/08/25 18:30 94 89/55 L 07/08/25 18:15 89 98/52 L 07/08/25 18:00 88 108/53 L 07/08/25 17:45 109 H 104/64 07/08/25 17:30 104 H 131/59 L 07/08/25 17:15 102 H 117/64 07/08/25 17:00 102 H 120/70 07/08/25 16:45 85 112/59 L 07/08/25 16:30 104 H 111/64 07/08/25 16:15 109 H 132/72 07/08/25 16:00 107 H 131/72 07/08/25 16:00 59 L 131/72 98 07/08/25 16:00 109 H 07/08/25 15:45 97 128/68 07/08/25 15:33 108 H 125/71 07/08/25 15:15 98.1 F 97 18 111/64 07/08/25 15:15 2 Exam 2 Narrative: GENERAL APPEARANCE: large and elderly female in no acute distress HEENT: normocephalic, atraumatic, normal conjunctiva and sclera, nares patient NECK: no lymphadenopathy, thyromegaly, or JVD MOUTH: normal lips, teeth, and gums CARDIOVASCULAR: RRR, normal S1 and S2, no rub RESPIRATORY: decreased at bases ABDOMEN: soft, nontender, nondistended, positive bowel sounds present EXTREMITIES: no evidence of cyanosis, clubbing, trace edema NEUROLOGICAL: alert and oriented x 1 - 2; CN II - XII intact bilaterally; no focal deficits noted Results Lab Results 07/09/25 05:21 07/09/25 05:21 Lab results: Most recent lab results Calcium 9.6 mg/dL (8.4-10.2) 07/09/25 05:21 Phosphorus 6.7 mg/dL (2.5-4.5) H 07/09/25 05:21 Magnesium 1.9 mg/dL (1.6-2.3) 07/09/25 05:21
[2025-07-09] MEDS: INSULIN ASPART (*BKC) 100 UNITS/ML SUB-Q ×3 (11:37→21:43)
[2025-07-09] MEDS: CYANOCOBALAMIN 1,000 MCG TABLET 1000 MCG PO (11:40)
--- NOTE | 2025-07-09 13:28 | PM.IMPN ---
Progress Note: A&P Assessment and Plan (1) Abnormal urinalysis: Code(s): R82.90 - Unspecified abnormal findings in urine Status: Acute (2) Chronic indwelling Braswell catheter: Code(s): Z97.8 - Presence of other specified devices Status: Acute (3) Atrial fibrillation: Qualifiers: Atrial fibrillation type: unspecified Qualified Code(s): I48.91 - Unspecified atrial fibrillation Code(s): I48.91 - Unspecified atrial fibrillation Status: Acute (4) Lactic acidosis: Code(s): E87.20 - Acidosis, unspecified Status: Acute (5) Type 2 diabetes mellitus with hyperglycemia: Qualifiers: Diabetes mellitus penitentiary insulin use: without director long term care use Qualified Code(s): E11.65 - Type 2 diabetes mellitus with hyperglycemia Code(s): E11.65 - Type 2 diabetes mellitus with hyperglycemia Status: Acute (6) ESRD (end stage renal disease): Code(s): N18.6 - End stage renal disease Status: Chronic Plan Patient presented with nausea vomiting and urine in the patient's chronic indwelling Braswell catheter suggest a possible UTI. Patient is already receiving antibiotic therapy at the nursing facility. Culture results were not available for review. The patient's Braswell catheter was removed in the ER but patient refused to have the catheter replaced or to have a straight catheterization in the ER and is still refusing to have the catheter replaced. Subsequently the urine specimen that was sent down to lab for evaluation came from the old catheter that had been in place for at least 3 weeks. Patient been started on empiric antibiotic therapy with Rocephin for possible UTI although urine specimen is poor with many squamous cells. Antibiotic coverage was started as patient does have tachycardia due to AFib with burst of tachycardia and mild leukocytosis and lactic acidosis concerning for sepsis. Patient did receive 2 fluid boluses of 250 mL each with improvement and tachycardia and blood pressure. The patient's soft blood pressures could also be due to volume depletion given she had 3 L of fluid taken off during hemodialysis on the . Nephrology will be consulted for dialysis management if the patient is still hospitalized on Tuesday. Currently the patient's electrolyte panel is stable. She will remain on a renal dialysis diet. Her glucoses were elevated on admission and she is on chronic insulin therapy. Will resume Lantus but decrease home dose and will place patient on moderate dose sliding scale insulin with Accu-Cheks a.c. HS and hypoglycemia protocol as needed. Review H&P notes and ER Notes, patient stats feels tired and wants to sleep, most likely due possibly to recent dialysis, upon arrival patient white counts were elevated and urine is quite dirty, suspicious for UTI growing gram negative bacilli being treated with ceftriaxone, will follow up on identification and sensitivity, patient nares swab is positive for MRSA, started Vancomycin and place patient on isolation. patient urine and blood culture are pending, PT/OT to evaluate the patient, patient had her scheduled dialysis on 07/08, patient stats feels little better compared to when she arrived, patient will benefit going to rehab. patient will is seen engineering documentation specialist and will have scheduled dialysis. Subjective Date/time seen: 07/09/25 13:28 Interval history: Nausea and vomiting H&P-Narrative: 80-year-old female with a past medical history of dementia, end-stage renal disease on hemodialysis Tuesday, CHF, essential hypertension, atrial fibrillation on chronic anticoagulation with Eliquis, diabetes and multiple other comorbidities who presented to the ER via EMS from [facility] and rehab after patient's daughter called EMS due to weakness. The patient's daughter reported that the patient usually has nausea vomiting following dialysis. Ever since dialysis on Tuesday she has been having intermittent nausea vomiting. She had not vomited on Tuesday before EMS was called but the daughter was concerned because the patient was more weak than usual. Review H&P notes and ER Notes, patient stats feels tired and wants to sleep, most likely due possibly to recent dialysis, upon arrival patient white counts were elevated and urine is quite dirty, suspicious for UTI growing gram negative bacilli being treated with ceftriaxone, will follow up on identification and sensitivity, patient nares swab is positive for MRSA, started Vancomycin and place patient on isolation. patient urine and blood culture are pending, PT/OT to evaluate the patient, patient had her scheduled dialysis on 07/08, patient stats feels little better compared to when she arrived, patient will benefit going to rehab. patient will is seen engineering documentation specialist and will have scheduled dialysis. Review of Systems Review of Systems: Unobtainable due to patient's lethargy and dementia Objective Data Vital Signs Vital Signs: Vital Signs - 24 hr 07/08/25 15:15 07/08/25 15:15 07/08/25 15:33 Temperature 36.7 C Pulse Rate 97 108 H Respiratory Rate 18 Blood Pressure 111/64 125/71 Pulse Oximetry Oxygen Delivery Oxygen Flow Rate 2 07/08/25 15:45 07/08/25 16:00 07/08/25 16:00 Temperature Pulse Rate 97 109 H 59 L Respiratory Rate Blood Pressure 128/68 131/72 Pulse Oximetry 98 Oxygen Delivery Oxygen Flow Rate 07/08/25 16:00 07/08/25 16:15 07/08/25 16:30 Temperature Pulse Rate 107 H 109 H 104 H Respiratory Rate Blood Pressure 131/72 132/72 111/64 Pulse Oximetry Oxygen Delivery Oxygen Flow Rate 07/08/25 16:45 07/08/25 17:00 07/08/25 17:15 Temperature Pulse Rate 85 102 H 102 H Respiratory Rate Blood Pressure 112/59 L 120/70 117/64 Pulse Oximetry Oxygen Delivery Oxygen Flow Rate 07/08/25 17:30 07/08/25 17:45 07/08/25 18:00 Temperature Pulse Rate 104 H 109 H 88 Respiratory Rate Blood Pressure 131/59 L 104/64 108/53 L Pulse Oximetry Oxygen Delivery Oxygen Flow Rate 07/08/25 18:15 07/08/25 18:30 07/08/25 18:45 Temperature Pulse Rate 89 94 65 Respiratory Rate Blood Pressure 98/52 L 89/55 L 95/38 L Pulse Oximetry Oxygen Delivery Oxygen Flow Rate 07/08/25 19:03 07/08/25 19:09 07/08/25 20:00 Temperature 36.6 C 36.8 C Pulse Rate 88 101 H 110 H Respiratory Rate 18 19 Blood Pressure 91/47 L 97/53 L 116/52 L Pulse Oximetry 98 98 Oxygen Delivery Oxygen Flow Rate 07/08/25 20:00 07/08/25 20:00 07/08/25 21:52 Temperature Pulse Rate 125 H 101 H Respiratory Rate Blood Pressure Pulse Oximetry 98 Oxygen Delivery Nasal Cannula Oxygen Flow Rate 2 07/08/25 23:46 07/09/25 00:00 07/09/25 03:10 Temperature 37.2 C Pulse Rate 103 H 105 H Respiratory Rate 17 Blood Pressure 100/44 L 99/45 L Pulse Oximetry 98 Oxygen Delivery Oxygen Flow Rate 07/09/25 03:35 07/09/25 04:00 07/09/25 04:00 Temperature 36.2 C L Pulse Rate 110 H 96 Respiratory Rate 17 Blood Pressure 79/34 L 98/51 L Pulse Oximetry 100 Oxygen Delivery Oxygen Flow Rate 07/09/25 08:00 07/09/25 08:47 07/09/25 09:25 Temperature 36.2 C L Pulse Rate 101 H 85 Respiratory Rate Blood Pressure 113/74 Pulse Oximetry 100 96 Oxygen Delivery Room Air Oxygen Flow Rate 07/09/25 11:57 Temperature 36.6 C Pulse Rate 100 Respiratory Rate 26 H Blood Pressure 110/70 Pulse Oximetry 93 Oxygen Delivery Oxygen Flow Rate Intake/Output Intake/Output: Intake & Output 07/06/25 07/07/25 07/08/25 07/09/25 23:59 23:59 23:59 23:59 Intake Total 444 862 1985 590 Output Total 761 0 Balance 570 530 679 590 Meds/Results Medications: Active Medications Generic Name Dose Route Start Last Admin Trade Name Freq PRN Reason Stop Dose Admin Acetaminophen 650 mg 07/06/25 06:42 07/06/25 16:45 Acetaminophen 325 Mg Tablet PO 650 mg Q4H PRN Administration Pain 1-3 or fever Apixaban 5 mg 07/06/25 09:00 07/09/25 08:49 Apixaban 5 Mg Tablet PO 5 mg Q12HR BIANKA Administration Aripiprazole 2.5 mg 07/06/25 21:00 07/08/25 21:50 Aripiprazole 2.5 Mg Tablet PO 2.5 mg QHS BIANKA Administration Buspirone HCl 5 mg 07/06/25 06:55 07/09/25 06:14 Buspirone Hcl 5 Mg Tablet PO Not Given Q8HR BIANKA Cyanocobalamin 1,000 mcg 07/06/25 09:00 07/09/25 11:40 Cyanocobalamin 1,000 Mcg Tablet PO 1,000 mcg DAILY BIANKA Administration Dextrose 12.5 gm 07/06/25 06:46 Dextrose 50% 25 Gm/50 Ml Syringe IV PUSH PRN PRN Hypoglycemia Protocol Docusate Sodium 200 mg 07/06/25 09:00 07/09/25 08:49 Docusate Sodium 100 Mg Capsule PO 200 mg Q12HR BIANKA Administration Ferrous Sulfate 325 mg 07/08/25 09:00 07/08/25 08:20 Ferrous Sulfate 325 Mg Tablet PO 325 mg MoWeFr BIANKA Administration Fluconazole 150 mg 07/06/25 09:00 07/06/25 14:24 Fluconazole 150 Mg Tablet PO 150 mg Sa@0900 BIANKA Administration Glucagon 1 mg 07/06/25 06:46 Glucagon For Inj 1 Mg Vial IM PRN PRN Hypoglycemia Protocol Glucose 15 gm 07/06/25 06:46 Glucose Oral Gel 15 Gm Of Glucse In 37.5 Gm Tube PO PRN PRN Hypoglycemia Protocol Dextrose 1,000 mls @ 100 mls/hr 07/06/25 06:46 Dextrose 5% 1,000 Ml IVPB PRN PRN Hypoglycemia Protocol Ceftriaxone Sodium 1 gm/ 50 mls @ 100 mls/hr 07/06/25 21:00 07/09/25 06:47 Sodium Chloride IVPB Infused Q24H BIANKA Infusion Albumin Human 50 mls @ 999 mls/hr 07/08/25 10:51 Albutein IVPB 08/07/25 10:50 Q10M PRN HYPOTENSION Insulin Aspart 3 - 6 units 07/06/25 08:00 07/09/25 11:37 Insulin Aspart (*Bkc) 100 Units/Ml SUB-Q 4 units TIDWM BIANKA Administration Protocol Insulin Aspart 1 - 3 units 07/06/25 21:00 07/08/25 23:40 Insulin Aspart (*Bkc) 100 Units/Ml SUB-Q Not Given HS BIANAK Protocol Insulin Glargine 20 units 07/06/25 09:00 07/08/25 08:18 Insulin Glargine (*Bkc) 100 Units/Ml SUB-Q 20 units QAM BIANKA Administration Lidocaine/Prilocaine 1 each 07/08/25 10:58 07/08/25 14:46 Lidocaine/Prilocaine Cream 2.5-2.5% Tube TOPICAL 1 each WITH DIALYSIS PRN Administration for dialysis Protocol Loratadine 10 mg 07/06/25 06:55 Loratadine 10 Mg Tablet PO DAILY PRN allergy symptoms Methylphenidate HCl 10 mg 07/06/25 08:00 07/09/25 08:49 Methylphenidate Hcl (*Crx) 10 Mg Tablet PO 10 mg BIDWM BIANKA Administration Metoprolol Tartrate 25 mg 07/06/25 09:00 07/09/25 08:47 Metoprolol Tartrate 25 Mg Tablet PO 25 mg Q12HR BIANKA Administration Non-Formulary Medication 30 mg 07/09/25 09:00 Tenapanor [Xphozah] PO 08/08/25 08:59 BID BIANKA Ondansetron HCl 4 mg 07/07/25 17:56 07/07/25 18:18 Ondansetron Hcl Odt 4 Mg Tablet PO 4 mg Q6H PRN Administration Nausea And Vomiting Rosuvastatin Calcium 10 mg 07/06/25 09:00 07/09/25 08:49 Rosuvastatin 10 Mg Tablet PO 10 mg DAILY BIANKA Administration Sertraline HCl 50 mg 07/06/25 09:00 07/09/25 08:49 Sertraline Hcl 50 Mg Tablet PO 50 mg DAILY BIANKA Administration Simethicone 250 mg 07/06/25 06:42 Simethicone 125 Mg Chew Tab PO TIDWM PRN Abdominal Distention Simethicone 250 mg 07/06/25 21:00 Simethicone 125 Mg Chew Tab PO QHS PRN Abdominal Distention Vancomycin HCl 1 each 07/06/25 11:34 Vancomycin For Hemodialysis IVPB PRN PRN Vancomycin Protocol Zolpidem Tartrate 5 mg 07/06/25 21:00 07/08/25 21:49 Zolpidem Tartrate (*Crx) 5 Mg Tablet PO 5 mg QHS BIANKA Administration Radiology Results: ITS Impressions Chest X-Ray 07/08/25 19:07 IMPRESSION: 1. No significant change or worsening. 2. Mild interstitial pulmonary edema. Labs Labs: Laboratory Results - last 24 hr 07/08/25 07/09/25 07/09/25 21:59 02:18 05:21 WBC 8.2 RBC 2.92 L Hgb 8.5 L Hct 28.5 L MCV 97.6 MCH 29.1 MCHC 29.8 L RDW 14.9 H Plt Count 217 MPV 9.9 Sodium 137 Potassium 3.7 Chloride 98 Carbon Dioxide 30 Anion Gap 9 BUN 32 H D Creatinine 3.46 H Estim Creat Clear Calc 16 Estimated GFR 13 L Glucose 136 H POC Capillary Glucose 406 H 235 H Calcium 9.6 Phosphorus 6.7 H Magnesium 1.9 Albumin 3.0 L 07/09/25 07/09/25 07:59 11:23 WBC RBC Hgb Hct MCV MCH MCHC RDW Plt Count MPV Sodium Potassium Chloride Carbon Dioxide Anion Gap BUN Creatinine Estim Creat Clear Calc Estimated GFR Glucose POC Capillary Glucose 132 H 287 H Calcium Phosphorus Magnesium Albumin Quality VTE Prophylaxis VTE prophylaxis: pharmacologic ordered (Continue home Eliquis)
[2025-07-09] MEDS: TENAPANOR 30 MG PO (16:51)
[2025-07-09] MEDS: [UNRECOGNIZED DRUG - OTHER] PO (16:51)
[2025-07-09] MEDS: INSULIN GLARGINE (*BKC) 100 UNITS/ML 20 UNITS SUB-Q (16:52)
[2025-07-09] MEDS: ZOLPIDEM TARTRATE (*CRX) 5 MG TABLET PO (21:45)
[2025-07-09] MEDS: ARIPiprazole 2.5 MG TABLET PO (21:45)
[2025-07-10] VITALS (25 sets, daily range): BP systolic 103–173; BP diastolic 52–97; PULSE 59–119; RESP 20–32; TEMP 35.7–37; O2SAT 93–100
[2025-07-10] MEDS: METOPROLOL TARTRATE 12.5 MG TABLET PO (04:50)
[2025-07-10 05:19] LABS: Hematocrit 30.8 % (37.0-47.0); Hemoglobin 8.9 g/dL (12.0-15.0); Mean Corpuscular HGB Conc 28.9 g/dl (32-36); Mean Corpuscular Hemoglobin 28.9 pg (26-34); Mean Corpuscular Volume 100.0 fl (80-100); Platelet Count Result 222 k/mm3 (150-375); Red Blood Count 3.08 M/mm3 (4.2-5.4); White Blood Count 9.3 K/mm3 (4.5-10.0)
[2025-07-10 05:33] LABS: Albumin Level 3.2 g/dL (3.5-5.1); Anion Gap 9 mmol/L (4-12); Blood Urea Nitrogen 45 mg/dL (7-17); Calcium 10.0 mg/dL (8.4-10.2); Carbon Dioxide 30 mmol/L (22-30); Chloride 97 mmol/L (98-107); Estimated CRCL calculation 11 ml/min; Estimated Glomerular Filt Rate 8; Glucose 159 mg/dL (65-110); Magnesium 1.9 mg/dL (1.6-2.3); Potassium 4.0 mmol/L (3.4-5.0); Sodium 136 mmol/L (137-145)
[2025-07-10] MEDS: LIDOCAINE/PRILOCAINE CREAM 2.5-2.5% TUBE 1 EACH TOPICAL (08:03)
[2025-07-10] MEDS: EPOETIN ALFA-EPBX 10,000 UNITS/ML VIAL 10000 UNITS IV PUSH (10:49)
--- NOTE | 2025-07-10 12:15 | PM.PNNEP ---
Progress Note: A&P Assessment and Plan (1) ESRD (end stage renal disease): Code(s): N18.6 - End stage renal disease Status: Chronic Assessment and Plan: HD today continue Tue/Tue/Tuesday dialysis schedule while hospitalized follow electrolytes, volume status, and clearance (2) Nausea & vomiting: Code(s): R11.2 - Nausea with vomiting, unspecified Status: Acute Assessment and Plan: noted by history no further episodes since admission PRN IV antiemetics due to #3(?) (3) Acute UTI: Code(s): N39.0 - Urinary tract infection, site not specified Status: Acute Assessment and Plan: admission urinalysis highly suggestive although was not really clean catch sample complicated by previous indwelling christianson catheter on antibiotics follow culture data - GNB noted (4) Anemia: Code(s): D64.9 - Anemia, unspecified Status: Chronic Assessment and Plan: due to ESRD and acute illness follow trend of H/H Epogen with HD (5) Bilateral lower extremity pain: Code(s): M79.604 - Pain in right leg; M79.605 - Pain in left leg Status: Acute Assessment and Plan: voiced by daughter and patient quite tender with any deep palpation/touch no associated wounds or trauma or associated swelling/edema patient refused lower extremity dopplers (presumably due to pain) (6) Type 2 diabetes mellitus with hyperglycemia: Qualifiers: Diabetes mellitus jail insulin use: without press worker helper use Qualified Code(s): E11.65 - Type 2 diabetes mellitus with hyperglycemia Code(s): E11.65 - Type 2 diabetes mellitus with hyperglycemia Status: Acute Assessment and Plan: follow accu-cheks glycemic control per hospitalist Will continue to follow. Subjective Date/time seen: 07/10/25 12:15 Interval history: Following for end stage renal disease on hemodialysis. Tolerating dialysis treatment at the time of my visit (seen on HD at 12:05PM); no apparent distress noted at this time other than pain in her posterior area; no other issues/evetns overnight or earlier this AM; refused LE dopplers yesterday due to pain in LEs. Exam Narrative: General: elderly but WD/WN female in NAD Heart: normal S1 and S2; no rub Lungs: coarse breath sounds Abdomen: soft, nontender, nondistended, positive bowel sounds Extremities: no cyanosis or clubbing; trace edema Skin: warm and intact Objective Data Vital Signs Vital Signs: Vital Signs Temp Pulse Resp BP Pulse Ox O2 Del Method 07/10/25 12:13 97.7 F 98 24 H 105/64 94 07/10/25 12:00 96 118/57 L 07/10/25 12:00 59 L 24 H 123/59 L 97 07/10/25 11:45 96 111/63 07/10/25 11:30 91 113/52 L 07/10/25 11:15 107 H 121/61 07/10/25 11:00 100 123/59 L 07/10/25 10:45 89 118/53 L 07/10/25 10:30 93 111/58 L 07/10/25 10:15 101 H 133/71 07/10/25 10:00 104 H 136/58 L 07/10/25 09:45 108 H 125/71 07/10/25 09:30 104 H 143/65 H 07/10/25 09:15 106 H 138/71 07/10/25 09:00 109 H 149/97 H 07/10/25 08:45 111 H 140/92 H 07/10/25 08:40 113 H 173/71 H 07/10/25 08:26 98.2 F 119 H 20 158/75 H 93 07/10/25 08:00 111 H 07/10/25 08:00 Room Air 07/10/25 08:00 96.2 F L 101 H 22 H 125/67 100 07/10/25 04:00 97.7 F 99 32 H 113/76 94 07/10/25 04:00 112 H 07/10/25 00:00 115 H 07/10/25 00:00 97.9 F 84 20 133/76 96 07/09/25 20:00 113 H 07/09/25 20:00 Room Air 07/09/25 20:00 98.0 F 110 H 30 H 100/70 96 07/09/25 16:00 97.4 F L 87 24 H 105/69 98 Intake/Output Intake/Output: Intake & Output 07/07/25 07/08/25 07/09/25 07/10/25 23:59 23:59 23:59 23:59 Intake Total 530 1440 830 Output Total 761 0 2000 Balance 530 679 830 -2000 Meds/Results Medications: Active Medications Generic Name Dose Route Start Last Admin Trade Name Freq PRN Reason Stop Dose Admin Acetaminophen 650 mg 07/06/25 06:42 07/10/25 13:36 Acetaminophen 325 Mg Tablet PO 650 mg Q4H PRN Administration Pain 1-3 or fever Apixaban 5 mg 07/06/25 09:00 07/10/25 08:23 Apixaban 5 Mg Tablet PO Not Given Q12HR BIANKA Aripiprazole 2.5 mg 07/06/25 21:00 07/09/25 21:45 Aripiprazole 2.5 Mg Tablet PO 2.5 mg QHS BIANKA Administration Buspirone HCl 5 mg 07/06/25 06:55 07/10/25 13:42 Buspirone Hcl 5 Mg Tablet PO 5 mg Q8HR BIANKA Administration Cyanocobalamin 1,000 mcg 07/06/25 09:00 07/10/25 13:36 Cyanocobalamin 1,000 Mcg Tablet PO 1,000 mcg DAILY BIANKA Administration Dextrose 12.5 gm 07/06/25 06:46 Dextrose 50% 25 Gm/50 Ml Syringe IV PUSH PRN PRN Hypoglycemia Protocol Docusate Sodium 200 mg 07/06/25 09:00 07/10/25 08:23 Docusate Sodium 100 Mg Capsule PO Not Given Q12HR BIANKA Epoetin [place]-epbx 10,000 units 07/10/25 18:26 07/10/25 10:49 Epoetin [place]-Epbx 10,000 Units/Ml Vial IV PUSH 07/10/25 18:27 10,000 units ONCE ONE Administration Ferrous Sulfate 325 mg 07/08/25 09:00 07/10/25 13:41 Ferrous Sulfate 325 Mg Tablet PO 325 mg MoWeFr BIANKA Administration Fluconazole 150 mg 07/06/25 09:00 07/06/25 14:24 Fluconazole 150 Mg Tablet PO 150 mg Sa@0900 BIANKA Administration Glucagon 1 mg 07/06/25 06:46 Glucagon For Inj 1 Mg Vial IM PRN PRN Hypoglycemia Protocol Glucose 15 gm 07/06/25 06:46 Glucose Oral Gel 15 Gm Of Glucse In 37.5 Gm Tube PO PRN PRN Hypoglycemia Protocol Dextrose 1,000 mls @ 100 mls/hr 07/06/25 06:46 Dextrose 5% 1,000 Ml IVPB PRN PRN Hypoglycemia Protocol Ceftriaxone Sodium 1 gm/ 50 mls @ 100 mls/hr 07/06/25 21:00 07/09/25 21:45 Sodium Chloride IVPB 100 mls/hr Q24H BIANKA Administration Albumin Human 50 mls @ 999 mls/hr 07/08/25 10:51 Albutein IVPB 08/07/25 10:50 Q10M PRN HYPOTENSION Insulin Aspart 3 - 6 units 07/06/25 08:00 07/10/25 13:37 Insulin Aspart (*Bkc) 100 Units/Ml SUB-Q Not Given TIDWM BIANKA Protocol Insulin Aspart 1 - 3 units 07/06/25 21:00 07/09/25 21:43 Insulin Aspart (*Bkc) 100 Units/Ml SUB-Q 1 units HS BIANKA Administration Protocol Insulin Glargine 20 units 07/06/25 09:00 07/10/25 13:41 Insulin Glargine (*Bkc) 100 Units/Ml SUB-Q 20 units QAM BIANKA Administration Lidocaine/Prilocaine 1 each 07/08/25 10:58 07/10/25 08:03 Lidocaine/Prilocaine Cream 2.5-2.5% Tube TOPICAL 1 each WITH DIALYSIS PRN Administration for dialysis Protocol Loratadine 10 mg 07/06/25 06:55 Loratadine 10 Mg Tablet PO DAILY PRN allergy symptoms Methylphenidate HCl 10 mg 07/06/25 08:00 07/10/25 08:23 Methylphenidate Hcl (*Crx) 10 Mg Tablet PO Not Given BIDWM [facility] Metoprolol Tartrate 25 mg 07/06/25 09:00 07/09/25 21:45 Metoprolol Tartrate 25 Mg Tablet PO 25 mg On Hold: 07/10/25 13:00 Q12HR BIANKA Administration Comment: HOLDING TEMPORARILY WHILE GIVING ONE TIME 12.5 DOSAGE Non-Formulary Medication 30 mg 07/09/25 09:00 07/10/25 08:23 Tenapanor [Xphozah] PO 08/08/25 08:59 Not Given BID [facility] Ondansetron HCl 4 mg 07/07/25 17:56 07/07/25 18:18 Ondansetron Hcl Odt 4 Mg Tablet PO 4 mg Q6H PRN Administration Nausea And Vomiting Rosuvastatin Calcium 10 mg 07/06/25 09:00 07/10/25 13:36 Rosuvastatin 10 Mg Tablet PO 10 mg DAILY BIANKA Administration Sertraline HCl 50 mg 07/06/25 09:00 07/10/25 13:36 Sertraline Hcl 50 Mg Tablet PO 50 mg DAILY BIANKA Administration Simethicone 250 mg 07/06/25 06:42 Simethicone 125 Mg Chew Tab PO TIDWM PRN Abdominal Distention Simethicone 250 mg 07/06/25 21:00 Simethicone 125 Mg Chew Tab PO QHS PRN Abdominal Distention Zolpidem Tartrate 5 mg 07/06/25 21:00 07/09/25 21:45 Zolpidem Tartrate (*Crx) 5 Mg Tablet PO 5 mg QHS BIANKA Administration Radiology Results: ITS Impressions Chest X-Ray 07/08/25 19:07 IMPRESSION: 1. No significant change or worsening. 2. Mild interstitial pulmonary edema. Labs Labs: Laboratory Tests 07/10/25 05:15 07/10/25 05:15 Calcium 10.0 Phosphorus 7.7 H Magnesium 1.9 Albumin 3.2 L Random Vancomycin 14.8 Microbiology 07/05/25 23:42 Urine [place] Urine Culture - Preliminary Gram negative bacilli isolated 07/05/25 21:19 Blood Blood Culture - Preliminary 07/05/25 22:16 Blood Blood Culture - Preliminary
--- NOTE | 2025-07-10 13:31 | P.PNIM_ITS ---
Progress Note: A&P Assessment and Plan (1) Abnormal urinalysis: Code(s): R82.90 - Unspecified abnormal findings in urine Status: Acute (2) Chronic indwelling Braswell catheter: Code(s): Z97.8 - Presence of other specified devices Status: Acute (3) Atrial fibrillation: Qualifiers: Atrial fibrillation type: unspecified Qualified Code(s): I48.91 - Unspecified atrial fibrillation Code(s): I48.91 - Unspecified atrial fibrillation Status: Acute (4) Lactic acidosis: Code(s): E87.20 - Acidosis, unspecified Status: Acute (5) Type 2 diabetes mellitus with hyperglycemia: Qualifiers: Diabetes mellitus detention insulin use: without intermodal customer service use Qualified Code(s): E11.65 - Type 2 diabetes mellitus with hyperglycemia Code(s): E11.65 - Type 2 diabetes mellitus with hyperglycemia Status: Acute (6) ESRD (end stage renal disease): Code(s): N18.6 - End stage renal disease Status: Chronic Plan Patient presented with nausea vomiting and urine in the patient's chronic indwelling Braswell catheter suggest a possible UTI. Patient is already receiving antibiotic therapy at the nursing facility. Culture results were not available for review. The patient's Braswell catheter was removed in the ER but patient refused to have the catheter replaced or to have a straight catheterization in the ER and is still refusing to have the catheter replaced. Subsequently the urine specimen that was sent down to lab for evaluation came from the old catheter that had been in place for at least 3 weeks. Patient been started on empiric antibiotic therapy with Rocephin for possible UTI although urine specimen is poor with many squamous cells. Antibiotic coverage was started as patient does have tachycardia due to AFib with burst of tachycardia and mild leukocytosis and lactic acidosis concerning for sepsis. Patient did receive 2 fluid boluses of 250 mL each with improvement and tachycardia and blood pressure. The patient's soft blood pressures could also be due to volume depletion given she had 3 L of fluid taken off during hemodialysis on the . Nephrology will be consulted for dialysis management if the patient is still hospitalized on Tuesday. Currently the patient's electrolyte panel is stable. She will remain on a renal dialysis diet. Her glucoses were elevated on admission and she is on chronic insulin therapy. Will resume Lantus but decrease home dose and will place patient on moderate dose sliding scale insulin with Accu-Cheks a.c. HS and hypoglycemia protocol as needed. Review H&P notes and ER Notes, patient stats feels tired and wants to sleep, most likely due possibly to recent dialysis, upon arrival patient white counts were elevated and urine is quite dirty, suspicious for UTI growing gram negative bacilli being treated with ceftriaxone, patient white are trending down, urine culture is growing gram bacilli will follow up on identification and sensitivity, patient nares swab is positive for MRSA, started Vancomycin and place patient on isolation. discussed with clinical pharmacist, will dc vancomycin, patient urine and blood culture are pending, PT/OT to evaluate the patient, patient had her scheduled dialysis on 07/08, and today patient is seen in the dialysis center, patient stats feels little better compared to when she arrived, patient will benefit going to rehab. patient will is seen automobile sales representative and will have scheduled dialysis. Subjective Date/time seen: 07/10/25 13:31 Interval history: Nausea and vomiting H&P-Narrative: 80-year-old female with a past medical history of dementia, end-stage renal disease on hemodialysis Tuesday, CHF, essential hypertension, atrial fibrillation on chronic anticoagulation with Eliquis, diabetes and multiple other comorbidities who presented to the ER via EMS from and rehab after patient's daughter called EMS due to weakness. The patient's daughter reported that the patient usually has nausea vomiting following dialysis. Ever since dialysis on Tuesday she has been having intermittent nausea vomiting. She had not vomited on Tuesday before EMS was called but the daughter was concerned because the patient was more weak than usual. Review H&P notes and ER Notes, patient stats feels tired and wants to sleep, most likely due possibly to recent dialysis, upon arrival patient white counts were elevated and urine is quite dirty, suspicious for UTI growing gram negative bacilli being treated with ceftriaxone, patient white are trending down, urine culture is growing gram bacilli will follow up on identification and sensitivity, patient nares swab is positive for MRSA, started Vancomycin and place patient on isolation. discussed with clinical pharmacist, will dc vancomycin, patient urine and blood culture are pending, PT/OT to evaluate the patient, patient had her scheduled dialysis on 07/08, and today patient is seen in the dialysis center, patient stats feels little better compared to when she arrived, patient will benefit going to rehab. patient will is seen automobile sales representative and will have scheduled dialysis. Review of Systems Review of Systems: Unobtainable due to patient's lethargy and dementia Exam Narrative: Patient is comfortable, NAD HEENT: eyes are clear and none icteric LUNGS:CTA HEART: RR S1S2 ABD: BS+, Soft and nontender Lower extremities: no edema SKIN: nonjaundiced Neuro: grossly intact. Objective Data Vital Signs Vital Signs: Vital Signs - 24 hr 07/09/25 16:00 07/09/25 20:00 07/09/25 20:00 Temperature 36.3 C L 36.7 C Pulse Rate 87 110 H Respiratory Rate 24 H 30 H Blood Pressure 105/69 100/70 Pulse Oximetry 98 96 Oxygen Delivery Room Air 07/09/25 20:00 07/10/25 00:00 07/10/25 00:00 Temperature 36.6 C Pulse Rate 113 H 84 115 H Respiratory Rate 20 Blood Pressure 133/76 Pulse Oximetry 96 Oxygen Delivery 07/10/25 04:00 07/10/25 04:00 07/10/25 08:00 Temperature 36.5 C 35.7 C L Pulse Rate 112 H 99 101 H Respiratory Rate 32 H 22 H Blood Pressure 113/76 125/67 Pulse Oximetry 94 100 Oxygen Delivery 07/10/25 08:00 07/10/25 08:00 07/10/25 08:26 Temperature 36.8 C Pulse Rate 111 H 119 H Respiratory Rate 20 Blood Pressure 158/75 H Pulse Oximetry 93 Oxygen Delivery Room Air 07/10/25 08:40 07/10/25 08:45 07/10/25 09:00 Temperature Pulse Rate 113 H 111 H 109 H Respiratory Rate Blood Pressure 173/71 H 140/92 H 149/97 H Pulse Oximetry Oxygen Delivery 07/10/25 09:15 07/10/25 09:30 07/10/25 09:45 Temperature Pulse Rate 106 H 104 H 108 H Respiratory Rate Blood Pressure 138/71 143/65 H 125/71 Pulse Oximetry Oxygen Delivery 07/10/25 10:00 07/10/25 10:15 07/10/25 10:30 Temperature Pulse Rate 104 H 101 H 93 Respiratory Rate Blood Pressure 136/58 L 133/71 111/58 L Pulse Oximetry Oxygen Delivery 07/10/25 10:45 07/10/25 11:00 07/10/25 11:15 Temperature Pulse Rate 89 100 107 H Respiratory Rate Blood Pressure 118/53 L 123/59 L 121/61 Pulse Oximetry Oxygen Delivery 07/10/25 11:30 07/10/25 11:45 07/10/25 12:00 Temperature Pulse Rate 91 96 59 L Respiratory Rate 24 H Blood Pressure 113/52 L 111/63 123/59 L Pulse Oximetry 97 Oxygen Delivery 07/10/25 12:00 07/10/25 12:13 07/10/25 12:16 Temperature 36.5 C Pulse Rate 96 82 98 Respiratory Rate 24 H Blood Pressure 118/57 L 118/53 L 105/64 Pulse Oximetry 94 Oxygen Delivery Intake/Output Intake/Output: Intake & Output 07/07/25 07/08/25 07/09/25 07/10/25 23:59 23:59 23:59 23:59 Intake Total 530 1440 830 Output Total 761 0 2000 Balance 530 679 830 -2000 Meds/Results Medications: Active Medications Generic Name Dose Route Start Last Admin Trade Name Freq PRN Reason Stop Dose Admin Acetaminophen 650 mg 07/06/25 06:42 07/06/25 16:45 Acetaminophen 325 Mg Tablet PO 650 mg Q4H PRN Administration Pain 1-3 or fever Apixaban 5 mg 07/06/25 09:00 07/10/25 08:23 Apixaban 5 Mg Tablet PO Not Given Q12HR BIANKA Aripiprazole 2.5 mg 07/06/25 21:00 07/09/25 21:45 Aripiprazole 2.5 Mg Tablet PO 2.5 mg QHS BIANKA Administration Buspirone HCl 5 mg 07/06/25 06:55 07/10/25 04:50 Buspirone Hcl 5 Mg Tablet PO 5 mg Q8HR BIANKA Administration Cyanocobalamin 1,000 mcg 07/06/25 09:00 07/09/25 11:40 Cyanocobalamin 1,000 Mcg Tablet PO 1,000 mcg DAILY BIANKA Administration Dextrose 12.5 gm 07/06/25 06:46 Dextrose 50% 25 Gm/50 Ml Syringe IV PUSH PRN PRN Hypoglycemia Protocol Docusate Sodium 200 mg 07/06/25 09:00 07/10/25 08:23 Docusate Sodium 100 Mg Capsule PO Not Given Q12HR BIANKA Epoetin Austin-epbx 10,000 units 07/10/25 18:26 07/10/25 10:49 Epoetin Austin-Epbx 10,000 Units/Ml Vial IV PUSH 07/10/25 18:27 10,000 units ONCE ONE Administration Ferrous Sulfate 325 mg 07/08/25 09:00 07/08/25 08:20 Ferrous Sulfate 325 Mg Tablet PO 325 mg MoWeFr BIANKA Administration Fluconazole 150 mg 07/06/25 09:00 07/06/25 14:24 Fluconazole 150 Mg Tablet PO 150 mg Sa@0900 BIANKA Administration Glucagon 1 mg 07/06/25 06:46 Glucagon For Inj 1 Mg Vial IM PRN PRN Hypoglycemia Protocol Glucose 15 gm 07/06/25 06:46 Glucose Oral Gel 15 Gm Of Glucse In 37.5 Gm Tube PO PRN PRN Hypoglycemia Protocol Dextrose 1,000 mls @ 100 mls/hr 07/06/25 06:46 Dextrose 5% 1,000 Ml IVPB PRN PRN Hypoglycemia Protocol Ceftriaxone Sodium 1 gm/ 50 mls @ 100 mls/hr 07/06/25 21:00 07/09/25 21:45 Sodium Chloride IVPB 100 mls/hr Q24H BIANKA Administration Albumin Human 50 mls @ 999 mls/hr 07/08/25 10:51 Albutein IVPB 08/07/25 10:50 Q10M PRN HYPOTENSION Insulin Aspart 3 - 6 units 07/06/25 08:00 07/10/25 08:08 Insulin Aspart (*Bkc) 100 Units/Ml SUB-Q Not Given TIDWM [facility] Protocol Insulin Aspart 1 - 3 units 07/06/25 21:00 07/09/25 21:43 Insulin Aspart (*Bkc) 100 Units/Ml SUB-Q 1 units HS BIANKA Administration Protocol Insulin Glargine 20 units 07/06/25 09:00 07/09/25 16:52 Insulin Glargine (*Bkc) 100 Units/Ml SUB-Q 20 units QAM BIANKA Administration Lidocaine/Prilocaine 1 each 07/08/25 10:58 07/10/25 08:03 Lidocaine/Prilocaine Cream 2.5-2.5% Tube TOPICAL 1 each WITH DIALYSIS PRN Administration for dialysis Protocol Loratadine 10 mg 07/06/25 06:55 Loratadine 10 Mg Tablet PO DAILY PRN allergy symptoms Methylphenidate HCl 10 mg 07/06/25 08:00 07/10/25 08:23 Methylphenidate Hcl (*Crx) 10 Mg Tablet PO Not Given BIDWM [facility] Metoprolol Tartrate 25 mg 07/06/25 09:00 07/09/25 21:45 Metoprolol Tartrate 25 Mg Tablet PO 25 mg On Hold: 07/10/25 13:00 Q12HR BIANKA Administration Comment: HOLDING TEMPORARILY WHILE GIVING ONE TIME 12.5 DOSAGE Non-Formulary Medication 30 mg 07/09/25 09:00 07/10/25 08:23 Tenapanor [Xphozah] PO 08/08/25 08:59 Not Given BID [facility] Ondansetron HCl 4 mg 07/07/25 17:56 07/07/25 18:18 Ondansetron Hcl Odt 4 Mg Tablet PO 4 mg Q6H PRN Administration Nausea And Vomiting Rosuvastatin Calcium 10 mg 07/06/25 09:00 07/09/25 08:49 Rosuvastatin 10 Mg Tablet PO 10 mg DAILY [facility] Administration Sertraline HCl 50 mg 07/06/25 09:00 07/09/25 08:49 Sertraline Hcl 50 Mg Tablet PO 50 mg DAILY [facility] Administration Simethicone 250 mg 07/06/25 06:42 Simethicone 125 Mg Chew Tab PO TIDWM PRN Abdominal Distention Simethicone 250 mg 07/06/25 21:00 Simethicone 125 Mg Chew Tab PO QHS PRN Abdominal Distention Zolpidem Tartrate 5 mg 07/06/25 21:00 07/09/25 21:45 Zolpidem Tartrate (*Crx) 5 Mg Tablet PO 5 mg QHS BIANKA Administration Radiology Results: ITS Impressions Chest X-Ray 07/08/25 19:07 IMPRESSION: 1. No significant change or worsening. 2. Mild interstitial pulmonary edema. Labs Labs: Laboratory Results - last 24 hr 07/09/25 07/09/25 07/10/25 16:29 19:35 05:15 WBC 9.3 RBC 3.08 L Hgb 8.9 L Hct 30.8 L MCV 100.0 MCH 28.9 MCHC 28.9 L RDW 14.9 H Plt Count 222 MPV 9.2 Sodium 136 L Potassium 4.0 Chloride 97 L Carbon Dioxide 30 Anion Gap 9 BUN 45 H D Creatinine 5.08 H Estim Creat Clear Calc 11 Estimated GFR 8 L Glucose 159 H POC Capillary Glucose 213 H 221 H Calcium 10.0 Phosphorus 7.7 H Magnesium 1.9 Albumin 3.2 L Random Vancomycin 14.8 07/10/25 07/10/25 07:32 12:44 WBC RBC Hgb Hct MCV MCH MCHC RDW Plt Count MPV Sodium Potassium Chloride Carbon Dioxide Anion Gap BUN Creatinine Estim Creat Clear Calc Estimated GFR Glucose POC Capillary Glucose 129 H 116 H Calcium Phosphorus Magnesium Albumin Random Vancomycin Quality VTE Prophylaxis VTE prophylaxis: pharmacologic ordered (Continue home Eliquis)
[2025-07-10] MEDS: SERTRALINE HCL 50 MG TABLET PO (13:36)
[2025-07-10] MEDS: ROSUVASTATIN 10 MG TABLET PO (13:36)
[2025-07-10] MEDS: CYANOCOBALAMIN 1,000 MCG TABLET 1000 MCG PO (13:36)
[2025-07-10] MEDS: ACETAMINOPHEN 325 MG TABLET 650 MG PO (13:36)
[2025-07-10] MEDS: INSULIN GLARGINE (*BKC) 100 UNITS/ML 20 UNITS SUB-Q (13:41)
[2025-07-10] MEDS: FERROUS SULFATE 325 MG TABLET PO (13:41)
[2025-07-10] MEDS: cefTAZidime INJ 1 GM in SODIUM CHLORIDE 0.9% IV 50 ML IVPB (17:05)
[2025-07-10] MEDS: methylPHENIDATE HCL (*CRX) 10 MG TABLET PO (17:05)
[2025-07-10] MEDS: TENAPANOR 30 MG PO (17:06)
[2025-07-10] MEDS: [UNRECOGNIZED DRUG - OTHER] PO (17:06)
[2025-07-10] MEDS: ZOLPIDEM TARTRATE (*CRX) 5 MG TABLET PO (21:29)
[2025-07-10] MEDS: ARIPiprazole 2.5 MG TABLET PO (21:29)
[2025-07-10] MEDS: INSULIN ASPART (*BKC) 100 UNITS/ML SUB-Q (21:29)
[2025-07-10] MEDS: DOCUSATE SODIUM 100 MG CAPSULE 200 MG PO (21:29)
[2025-07-10] MEDS: APIXABAN 5 MG TABLET PO (21:29)
[2025-07-11] VITALS: PULSE 103
[2025-07-11 04:00] VITALS: PULSE 109
[2025-07-11 04:42] VITALS: BP 105/66; PULSE 105; RESP 20; TEMP 36.1; O2SAT 92
[2025-07-11 06:20] LABS: Hematocrit 29.3 % (37.0-47.0); Hemoglobin 8.4 g/dL (12.0-15.0); Mean Corpuscular HGB Conc 28.7 g/dl (32-36); Mean Corpuscular Hemoglobin 28.8 pg (26-34); Mean Corpuscular Volume 100.3 fl (80-100); Platelet Count Result 231 k/mm3 (150-375); Red Blood Count 2.92 M/mm3 (4.2-5.4); White Blood Count 7.4 K/mm3 (4.5-10.0)
[2025-07-11 06:41] LABS: Albumin Level 3.0 g/dL (3.5-5.1); Anion Gap 7 mmol/L (4-12); Blood Urea Nitrogen 25 mg/dL (7-17); Calcium 10.2 mg/dL (8.4-10.2); Carbon Dioxide 28 mmol/L (22-30); Chloride 100 mmol/L (98-107); Estimated CRCL calculation 17 ml/min; Estimated Glomerular Filt Rate 13; Glucose 151 mg/dL (65-110); Magnesium 2.0 mg/dL (1.6-2.3); Potassium 4.1 mmol/L (3.4-5.0); Sodium 135 mmol/L (137-145)
[2025-07-11 08:00] VITALS: BP 98/62; PULSE 107; PULSE 113; RESP 20; TEMP 36.8; O2SAT 97
[2025-07-11] MEDS: methylPHENIDATE HCL (*CRX) 10 MG TABLET PO (08:12)
[2025-07-11] MEDS: APIXABAN 5 MG TABLET PO (08:13)
[2025-07-11] MEDS: CYANOCOBALAMIN 1,000 MCG TABLET 1000 MCG PO (08:13)
[2025-07-11] MEDS: SERTRALINE HCL 50 MG TABLET PO (08:13)
[2025-07-11] MEDS: ROSUVASTATIN 10 MG TABLET PO (08:13)
[2025-07-11] MEDS: DOCUSATE SODIUM 100 MG CAPSULE 200 MG PO (08:13)
[2025-07-11] MEDS: INSULIN GLARGINE (*BKC) 100 UNITS/ML 20 UNITS SUB-Q (08:16)
[2025-07-11] MEDS: [UNRECOGNIZED DRUG - OTHER] PO (08:17)
[2025-07-11] MEDS: TENAPANOR 30 MG PO (08:17)
--- NOTE | 2025-07-11 09:44 | P.DS_ITS ---
DS: Admitting Diagnosis Discharge Date 07/11/25 Admitting Diagnosis Nausea and vomiting DS: Discharge Diagnosis Discharge Diagnosis (1) Abnormal urinalysis: Code(s): R82.90 - Unspecified abnormal findings in urine Status: Acute (2) Chronic indwelling Braswell catheter: Code(s): Z97.8 - Presence of other specified devices Status: Acute (3) Atrial fibrillation: Qualifiers: Atrial fibrillation type: unspecified Qualified Code(s): I48.91 - Unspecified atrial fibrillation Code(s): I48.91 - Unspecified atrial fibrillation Status: Acute (4) Lactic acidosis: Code(s): E87.20 - Acidosis, unspecified Status: Acute (5) Type 2 diabetes mellitus with hyperglycemia: Qualifiers: Diabetes mellitus press tender long goods insulin use: without halfway use Qualified Code(s): E11.65 - Type 2 diabetes mellitus with hyperglycemia Code(s): E11.65 - Type 2 diabetes mellitus with hyperglycemia Status: Acute (6) ESRD (end stage renal disease): Code(s): N18.6 - End stage renal disease Status: Chronic Plan Patient presented with nausea vomiting and urine in the patient's chronic indwelling Braswell catheter suggest a possible UTI. Patient is already receiving antibiotic therapy at the nursing facility. Culture results were not available for review. The patient's Braswell catheter was removed in the ER but patient refused to have the catheter replaced or to have a straight catheterization in the ER and is still refusing to have the catheter replaced. Subsequently the urine specimen that was sent down to lab for evaluation came from the old catheter that had been in place for at least 3 weeks. Patient been started on empiric antibiotic therapy with Rocephin for possible UTI although urine specimen is poor with many squamous cells. Antibiotic coverage was started as patient does have tachycardia due to AFib with burst of tachycardia and mild leukocytosis and lactic acidosis concerning for sepsis. Patient did receive 2 fluid boluses of 250 mL each with improvement and tachycardia and blood pressure. The patient's soft blood pressures could also be due to volume depletion given she had 3 L of fluid taken off during hemodialysis on the . Nephrology will be consulted for dialysis management if the patient is still hospitalized on Tuesday. Currently the patient's electrolyte panel is stable. She will remain on a renal dialysis diet. Her glucoses were elevated on admission and she is on chronic insulin therapy. Will resume Lantus but decrease home dose and will place patient on moderate dose sliding scale insulin with Accu-Cheks a.c. HS and hypoglycemia protocol as needed. Review H&P notes and ER Notes, patient stats feels tired and wants to sleep, most likely due possibly to recent dialysis, upon arrival patient white counts were elevated and urine is quite dirty, suspicious for UTI growing gram negative bacilli being treated with ceftriaxone, patient white are trending down, urine culture is growing gram bacilli will follow up on identification and sensitivity, patient nares swab is positive for MRSA, started Vancomycin and place patient on isolation. discussed with clinical pharmacist, will dc vancomycin, patient urine and blood culture are pending, PT/OT to evaluate the patient, patient had her scheduled dialysis on 07/08, and today patient is seen in the dialysis center, patient stats feels little better compared to when she arrived, patient will benefit going to rehab. patient will is seen phlebotomy technologist and will have scheduled dialysis. DS: Summary Hospital Course Hospital Course: Review H&P notes and ER Notes, patient stats feels tired and wants to sleep, most likely due possibly to recent dialysis, upon arrival patient white counts were elevated and urine is quite dirty, suspicious for UTI growing gram negative bacilli being treated with ceftriaxone, patient white are trending down, urine culture is growing gram bacilli will follow up on identification and sensitivity, patient nares swab is positive for MRSA, started Vancomycin and place patient on isolation. discussed with clinical pharmacist, will dc vancomycin, patient urine and blood culture are pending, PT/OT to evaluate the patient, patient had her scheduled dialysis on 07/08, and today patient is seen in the dialysis center, patient stats feels little better compared to when she arrived, patient will benefit going to rehab. patient will is seen phlebotomy technologist and will have scheduled dialysis. patient is clinically stable, patient urine is growing pseudomonas, discussed with clinical pharmacist and recommended Cefepime, discusses with her phlebotomy technologist and agrees with plan and will order the antibiotics for the patient at her dialysis center. Time Spent with Patient Time attestation: Total time spent providing and/or coordinating discharge services: Exam Narrative: Patient is comfortable, NAD HEENT: eyes are clear and none icteric LUNGS:CTA HEART: RR S1S2 ABD: BS+, Soft and nontender Lower extremities: no edema SKIN: nonjaundiced Neuro: grossly intact. DS: Data Data Completed and Pending Labs on day of discharge: Labs from last 24 hours 07/11/25 07/11/25 07/10/25 07:46 05:45 20:04 WBC 7.4 RBC 2.92 L Hgb 8.4 L Hct 29.3 L MCV 100.3 H MCH 28.8 MCHC 28.7 L RDW 15.0 H Plt Count 231 MPV 10.0 Sodium 135 L Potassium 4.1 Chloride 100 Carbon Dioxide 28 Anion Gap 7 BUN 25 H D Creatinine 3.37 H Estim Creat Clear Calc 17 Estimated GFR 13 L Glucose 151 H POC Capillary Glucose 145 H 215 H Calcium 10.2 Phosphorus 5.8 H Magnesium 2.0 Albumin 3.0 L 07/10/25 07/10/25 16:18 12:44 WBC RBC Hgb Hct MCV MCH MCHC RDW Plt Count MPV Sodium Potassium Chloride Carbon Dioxide Anion Gap BUN Creatinine Estim Creat Clear Calc Estimated GFR Glucose POC Capillary Glucose 168 H 116 H Calcium Phosphorus Magnesium Albumin Preliminary micro results at discharge 07/05/25 21:19 Blood Culture - Preliminary Blood 07/05/25 22:16 Blood Culture - Preliminary Blood Discharge Plan Discharge Attending physician on discharge: Eduarda Flores Consulting providers: Cristofer Schwarz; Jayro Avilez; Dhruv Peck; Fernanda Florentino Discharging Clinician: Deysi Michel Patient Disposition: [facility] [facility] Activity: as tolerated Diet: renal and low sodium Discharge Instructions: patient will receive her antibiotics during her dialysis, patient to follow up with her phlebotomy technologist as scheduled, patient to follow up with primary care provider as soon as possible, patient is instructed if any symptoms redevelop to go to [facility] ER Patient Instructions: Antibiotic Form, Apixaban (By mouth) Patient Language: Kazakh Stand Alone Forms: General Discharge Information Follow-up/Referrals: Cristofer Schwarz MD [Physician, Nephrology] Carl Maloney MD [Primary Care Provider, Internal Medicine] Discharge Medications: New lidocaine-prilocaine 2.5-2.5 % Cream 60 g topical WITH DIALYSIS PRN (Reason: for dialysis) Qty: 60 0RF Continued cyanocobalamin (vitamin B-12) 1,000 mcg tablet 1,000 mcg PO DAILY ferrous sulfate 324 mg (65 mg iron) tablet,delayed release (DR/EC) 325 mg PO EVERY OTHER DAY Rx Instructions: -- ondansetron 4 mg tablet,disintegrating 4 mg PO Q6H PRN (Reason: nausea and vomiting) (DME) Thigh High SANDOVAL hose See Rx Instructions .Route .MEDSUPPLY Qty: 3 0RF Rx Instructions: As directed. Please fill for 3 pairs. Thank you fluconazole 150 mg tablet 150 mg PO WEEKLY Xphozah 30 mg tablet 30 mg PO QPM Rx Instructions: administer with a meal acetaminophen 650 mg tablet extended release 650 mg PO Q4H PRN (Reason: GENERAL DISCOMFORT) metoprolol tartrate 25 mg tablet 25 mg PO BID tizanidine [Zanaflex] 2 mg capsule 2 mg PO Q8H PRN (Reason: muscle spasticity) cranberry 500 mg capsule 500 mg PO TID Rx Instructions: administer with meals nitroglycerin 0.4 mg tablet, sublingual 0.4 mg sublingual Q5M PRN (Reason: Chest Pain) Qty: 25 2RF Rx Instructions: do not exceed 3 doses per episode insulin aspart U-100 [Novolog U-100 Insulin aspart] 100 unit/mL solution See Rx Instructions subcut .COMPLEX Qty: 10 0RF Rx Instructions: SSI: 200-250=4 units, 251-300=8 units, 301-350=10 units, 351-400=12 units, greater than 400=12 units subcutaneously; (DME) FreeStyle Robbi 3 Sensor Device See Rx Instructions .Route Qty: 1 0RF Rx Instructions: As directed zolpidem [Ambien] 5 mg tablet 5 mg PO QHS Qty: 90 0RF Eliquis 5 mg tablet 5 mg PO BID Qty: 180 2RF dextromethorphan-guaifenesin [Mucinex DM] 60-1,200 mg tablet extended release 12 hr 1 tablet PO Q12H PRN (Reason: congestion) (DME) pen needle, diabetic [BD Lindsay 2nd Gen Pen Needle] 32 gauge x /32 needle See Rx Instructions .ROUTE .COMPLEX Qty: 100 1RF Dose Instruction: USE TO INJECT ONCE DAILY Rx Instructions: USE TO INJECT ONCE DAILY All Day Allergy (cetirizine) 10 mg capsule 10 mg PO DAILY PRN (Reason: allergy symptoms) Qty: 90 0RF simethicone [Gas-X Extra Strength] 125 mg capsule 250 mg PO DAILY PRN (Reason: abdominal distention) Qty: 20 0RF Rx Instructions: Adult 1?2 softgels as needed after meals and at bedtime; max 4 softgels/day buspirone 5 mg tablet See Rx Instructions .ROUTE .COMPLEX Qty: 270 1RF Dose Instruction: 5 MG ORALLY THREE TIMES A DAY Rx Instructions: 5 MG ORALLY THREE TIMES A DAY docusate sodium 100 mg capsule 200 mg PO BID acetaminophen 500 mg capsule 500 mg PO Q6H PRN (Reason: cHONIC BACK PAIN) insulin glargine [Lantus Solostar U-100 Insulin] 100 unit/mL (3 mL) insulin pen 25 unit subcut QAM Qty: 15 0RF rosuvastatin 10 mg tablet 10 mg PO DAILY Qty: 90 0RF aripiprazole 2 mg tablet See Rx Instructions .ROUTE .COMPLEX Qty: 135 0RF Dose Instruction: TAKE 1&1/2 TABS BY MOUTH EVERYDAY AT BEDTIME Rx Instructions: TAKE 1&1/2 TABS BY MOUTH EVERYDAY AT BEDTIME sertraline 50 mg tablet 50 mg PO DAILY Qty: 90 1RF nystatin 100,000 unit/gram powder 1 applic topical BID Qty: 60 0RF Rx Instructions: coccyx, groin, and abdominal folds methylphenidate HCl 10 mg tablet 10 mg PO BIDWMEAL Qty: 60 0RF Rx Instructions: breakfast and lunch Date of admission: 07/06/25 00:41 Primary Care Provider: Carl Maloney Admitting Provider: Eduarda Flores Attending physician on admission: Deysi Michel Condition: Improved
[2025-07-11 12:00] VITALS: PULSE 109
--- NOTE | 2025-07-11 12:01 | P.PNNP_ITS ---
Progress Note: A&P Assessment and Plan (1) ESRD (end stage renal disease): Code(s): N18.6 - End stage renal disease Status: Chronic Assessment and Plan: * HD tomorrow * continue Tue/Tue/Tuesday dialysis schedule while hospitalized * follow electrolytes, volume status, and clearance (2) Nausea & vomiting: Code(s): R11.2 - Nausea with vomiting, unspecified Status: Acute Assessment and Plan: * noted by history * no further episodes since admission * PRN IV antiemetics * due to #3(?) (3) Acute UTI: Code(s): N39.0 - Urinary tract infection, site not specified Status: Acute Assessment and Plan: * admission urinalysis highly suggestive * although was not really clean catch sample * complicated by previous indwelling christ[place] catheter * follow culture data - Pseudomonas aeruginosa by urine culture * on antibiotics (4) Anemia: Code(s): D64.9 - Anemia, unspecified Status: Chronic Assessment and Plan: * due to ESRD and acute illness * follow trend of H/H * Epogen with HD (5) Bilateral lower extremity pain: Code(s): M79.604 - Pain in right leg; M79.605 - Pain in left leg Status: Acute Assessment and Plan: * voiced by daughter and patient * quite tender with any deep palpation/touch * no associated wounds or trauma or associated swelling/edema * patient refused lower extremity dopplers (presumably due to pain) (6) Type 2 diabetes mellitus with hyperglycemia: Qualifiers: Diabetes mellitus correction insulin use: without correction use Q ualified Code(s): E11.65 - Type 2 diabetes mellitus with hyperglycemia Code(s): E11.65 - Type 2 diabetes mellitus with hyperglycemia Status: Acute Assessment and Plan: * follow accu-cheks * glycemic control per hospitalist Not opposed to discharge from renal perspective if otherwise medically stable -- she can resume her outpatient dialysis treatment schedule tomorrow at [facility]. Will continue to follow. L Subjective Date/time seen: 07/11/25 12:01 Interval history: Following for end stage renal disease on hemodialysis. Tolerated dialysis treatment yesterday without any issues or problems; eating lunch at the time of my visit and appears in no apparent distress; no issues/events overnight or earlier this morning. Exam 2 Narrative: General: elderly but WD/WN female in NAD Heart: normal S1 and S2; no rub Lungs: coarse breath sounds Abdomen: soft, nontender, nondistended, positive bowel sounds Extremities: no cyanosis or clubbing; trace edema Skin: no rash or nodules Objective Data Vital Signs Vital Signs: Vital Signs Temp Pulse Resp BP Pulse Ox 07/11/25 08:00 113 H 07/11/25 08:00 98.2 F 107 H 20 98/62 L 97 07/11/25 04:42 97.0 F L 105 H 20 105/66 92 07/11/25 04:00 109 H 07/11/25 00:00 103 H 07/10/25 23:40 97.6 F 108 H 21 H 104/69 98 07/10/25 20:00 97.6 F 99 20 103/67 97 07/10/25 16:00 90 07/10/25 16:00 98.0 F 92 20 121/77 95 Intake/Output Intake/Output: Intake & Output 07/08/25 07/09/25 07/10/25 07/11/25 23:59 23:59 23:59 23:59 Intake Total 1440 830 716 720 Output Total 761 0 2000 Balance 679 830 -1284 720 Meds/Results Medications: Active Medications Generic Name Dose Route Start Last Admin Trade Name Brayden PRN Reason Stop Dose Admin Acetaminophen 650 mg 07/06/25 06:42 07/10/25 13:36 Acetaminophen 325 Mg Tablet PO 650 mg Q4H PRN Administration Pain 1-3 or fever Apixaban 5 mg 07/06/25 09:00 07/11/25 08:13 Apixaban 5 Mg Tablet PO 5 mg Q12HR BIANKA Administration Aripiprazole 2.5 mg 07/06/25 21:00 07/10/25 21:29 Aripiprazole 2.5 Mg Tablet PO 2.5 mg QHS BIANKA Administration Buspirone HCl 5 mg 07/06/25 06:55 07/11/25 14:35 Buspirone Hcl 5 Mg Tablet PO 5 mg Q8HR BIANKA Administration Cyanocobalamin 1,000 mcg 07/06/25 09:00 07/11/25 08:13 Cyanocobalamin 1,000 Mcg Tablet PO 1,000 mcg DAILY BIANKA Administration Dextrose 12.5 gm 07/06/25 06:46 Dextrose 50% 25 Gm/50 Ml Syringe IV PUSH PRN PRN Hypoglycemia Protocol Docusate Sodium 200 mg 07/06/25 09:00 07/11/25 08:13 Docusate Sodium 100 Mg Capsule PO 200 mg Q12HR BIANKA Administration Ferrous Sulfate 325 mg 07/08/25 09:00 07/10/25 13:41 Ferrous Sulfate 325 Mg Tablet PO 325 mg MoWeFr BIANKA Administration Fluconazole 150 mg 07/06/25 09:00 07/06/25 14:24 Fluconazole 150 Mg Tablet PO 150 mg Sa@0900 BIANKA Administration Glucagon 1 mg 07/06/25 06:46 Glucagon For Inj 1 Mg Vial IM PRN PRN Hypoglycemia Protocol Glucose 15 gm 07/06/25 06:46 Glucose Oral Gel 15 Gm Of Glucse In 37.5 Gm Tube PO PRN PRN Hypoglycemia Protocol Dextrose 1,000 mls @ 100 mls/hr 07/06/25 06:46 Dextrose 5% 1,000 Ml IVPB PRN PRN Hypoglycemia Protocol Albumin Human 50 mls @ 999 mls/hr 07/08/25 10:51 Albutein IVPB 08/07/25 10:50 Q10M PRN HYPOTENSION Ceftazidime 1 gm/ Sodium 50 mls @ 100 mls/hr 07/10/25 16:00 07/10/25 17:05 Chloride IVPB 07/15/25 16:29 100 mls/hr [id number] BAINKA Administration Insulin Aspart 3 - 6 units 07/06/25 08:00 07/11/25 12:25 Insulin Aspart (*Bkc) 100 Units/Ml SUB-Q 4 units TIDWM BIANKA Administration Protocol Insulin Aspart 1 - 3 units 07/06/25 21:00 07/10/25 21:29 Insulin Aspart (*Bkc) 100 Units/Ml SUB-Q 1 units HS BIANKA Administration Protocol Insulin Glargine 20 units 07/06/25 09:00 07/11/25 08:16 Insulin Glargine (*Bkc) 100 Units/Ml SUB-Q 20 units QAM BIANKA Administration Lidocaine/Prilocaine 1 each 07/08/25 10:58 07/10/25 08:03 Lidocaine/Prilocaine Cream 2.5-2.5% Tube TOPICAL 1 each WITH DIALYSIS PRN Administration for dialysis Protocol Loratadine 10 mg 07/06/25 06:55 Loratadine 10 Mg Tablet PO DAILY PRN allergy symptoms Methylphenidate HCl 10 mg 07/06/25 08:00 07/11/25 08:12 Methylphenidate Hcl (*Crx) 10 Mg Tablet PO 10 mg BIDWM [facility] Administration Metoprolol Tartrate 25 mg 07/06/25 09:00 07/10/25 08:23 Metoprolol Tartrate 25 Mg Tablet PO Not Given On Hold: 07/10/25 13:00 Q12HR [facility] Comment: HOLDING TEMPORARILY WHILE GIVING ONE TIME 12.5 DOSAGE Non-Formulary Medication 30 mg 07/09/25 09:00 07/11/25 08:17 Tenapanor [Xphozah] PO 08/08/25 08:59 30 mg BID BIANKA Administration Ondansetron HCl 4 mg 07/07/25 17:56 07/07/25 18:18 Ondansetron Hcl Odt 4 Mg Tablet PO 4 mg Q6H PRN Administration Nausea And Vomiting Rosuvastatin Calcium 10 mg 07/06/25 09:00 07/11/25 08:13 Rosuvastatin 10 Mg Tablet PO 10 mg DAILY [facility] Administration Sertraline HCl 50 mg 07/06/25 09:00 07/11/25 08:13 Sertraline Hcl 50 Mg Tablet PO 50 mg DAILY [facility] Administration Simethicone 250 mg 07/06/25 06:42 Simethicone 125 Mg Chew Tab PO TIDWM PRN Abdominal Distention Simethicone 250 mg 07/06/25 21:00 Simethicone 125 Mg Chew Tab PO QHS PRN Abdominal Distention Zolpidem Tartrate 5 mg 07/06/25 21:00 07/10/25 21:29 Zolpidem Tartrate (*Crx) 5 Mg Tablet PO 5 mg QHS BIANKA Administration Radiology Results: ITS Impressions Chest X-Ray 07/08/25 19:07 IMPRESSION: 1. No significant change or worsening. 2. Mild interstitial pulmonary edema. Labs Labs: Laboratory Tests 07/11/25 05:45 07/11/25 05:45 Calcium 10.2 Phosphorus 5.8 H Magnesium 2.0 Albumin 3.0 L Microbiology 07/05/25 23:42 Urine [place] Urine Culture - Final Pseudomonas aeruginosa
[2025-07-11] MEDS: INSULIN ASPART (*BKC) 100 UNITS/ML SUB-Q (12:25)
[2025-07-11 16:00] VITALS: PULSE 92
== END 2025-07-11 16:20 | DRG 698 ==
LOC: ANHED 07-06 00:49 → ANH3MEDSUR 07-07 07:41
PROVIDERS: Internal Medicine Nephrology; Admitting Provider Internal Medicine; Emergency Provider Emergency Medicine; PCP Internal Medicine; Visit Provider Family Medicine
DX: T83.511A Infection and inflammatory reaction due to indwelling urethral catheter, initial encounter (principal); N18.6 End stage renal disease; D47.Z2 Castleman disease; I13.2 Hypertensive heart and chronic kidney disease with heart failure and with stage 5 chronic kidney disease, or end stage renal disease; I48.20 Chronic atrial fibrillation, unspecified; I42.9 Cardiomyopathy, unspecified; N39.0 Urinary tract infection, site not specified; I50.9 Heart failure, unspecified; E11.22 Type 2 diabetes mellitus with diabetic chronic kidney disease; E78.5 Hyperlipidemia, unspecified; E53.8 Deficiency of other specified B group vitamins; E55.9 Vitamin D deficiency, unspecified; M81.0 Age-related osteoporosis without current pathological fracture; N32.81 Overactive bladder; G47.33 Obstructive sleep apnea (adult) (pediatric); F03.90 Unspecified dementia, unspecified severity, without behavioral disturbance, psychotic disturbance, mood disturbance, and anxiety; F41.9 Anxiety disorder, unspecified; Z20.822 Contact with and (suspected) exposure to COVID-19; Z85.3 Personal history of malignant neoplasm of breast; Z99.2 Dependence on renal dialysis; Z87.442 Personal history of urinary calculi; Z79.4 Long term (current) use of insulin; Z22.322 Carrier or suspected carrier of Methicillin resistant Staphylococcus aureus; Z79.01 Long term (current) use of anticoagulants
CPT/HCPCS: 36415; 71045; 80053; 80069; 80202; 81001; 82948; 83605; 83690; 83735; 85025; 85027; 86706; 87040; 87086; 87186; 87340; 87637; 87641; 92610; 93970; 96361; 96365; 99285; A9270; G0257; J0696; J0713; J1644; J1815; J3373; J7030; J7040; J7050; Q5105

== ENCOUNTER 2025-07-29 12:01 | Inpatient (IN) | payer MEDICARE, OTHER, MEDICAID, SELFPAY ==
--- OUTSIDE RECORDS SUMMARY | 2025-07-22 11:19 | XMS_ITS | Encounter Summary ---
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 [address] Phone: tel: fax: Referral ID Status Reason Start Date Expiration Date Visits Re quested Visits Authorized [id number] Closed 1 1 * Imaging (Emergency) - New Request Specialty Diagnoses / Procedures Referred By Hamilton daniels Referred To Contact RADIOLOGY Procedures CT HEAD WO Ritika Lucio, MORRIS [address] [place] [address] Phone: tel: fax: Referral ID Status Reason Start Date Expiration Date V isits Requested Visits Authorized [id number] New Request 07/26/2025 07/26/2026 1 1 * Imaging (Urgent) - Pending Review Specialty Diagnoses / Procedures Referred By Contac t Referred To Contact RADIOLOGY Procedures USV ART REST W BURAK LOW EXT USV ART DUPLEX+BURAK LOW JONATAN Ritika Morton NP [address] [place] [address] Phone: tel: fax: Referral ID Status Reason Start Date Expiration Date V isits Requested Visits Authorized [id number] Pending Review 07/24/2025 07/24/2026 1 1 * Imaging (Urgent) - Pending Review Specialty Diagnoses / Procedures Referred By Contac t Referred To Contact RADIOLOGY Procedures USE ECHOCARDIOGRAM W CON USE ECHOCARDIOGRAM Ana Bennett PA [address] [place] [address] Phone: tel: fax: Referral ID Status Reason Start Date Expiration Date V isits Requested Visits Authorized [id number] Pending Review 07/22/2025 07/22/2026 1 1 * (Routine) - New Request Specialty Diagnoses / Procedures Referred By Contac t Referred To Contact Procedures WATCH DIAL STONER eval and Ana Dominguez PA [address] [place] [address] Phone: tel: fax: Referral ID Status Reason Start Date Expiration Date V isits Requested Visits Authorized [id number] New Request 07/22/2025 07/22/2026 1 1 * (Routine) - New Request Specialty Diagnoses / Procedures Referred By Contac t Referred To Contact Procedures OT eval and treat Ana Bennett PA [address] [place] [address] Phone: tel: fax: Referral ID Status Reason Start Date Expiration Date V isits Requested Visits Authorized [id number] New Request 07/22/2025 07/22/2026 1 1 * (Routine) - New Request Specialty Diagnoses / Procedures Referred By Contac t Referred To Contact Procedures PT eval and treat Ana Bennett PA [address] [place] [address] Phone: tel: fax: Referral ID Status Reason Start Date Expiration Date V isits Requested Visits Authorized [id number] New Request 07/22/2025 07/22/2026 1 1 * Imaging (Urgent) - New Request Specialty Diagnoses / Procedures Referred By Contac t Referred To Contact RADIOLOGY Procedures USV CLINT DUPLEX LOW EXT JONATAN Ana Bennett PA [address] [place] [address] Phone: tel: fax: Referral ID Status Reason Start Date Expiration Date V isits Requested Visits Authorized [id number] New Request 07/22/2025 07/22/2026 1 1 * Imaging (Urgent) - New Request Specialty Diagnoses / Procedures Referred By Contac t Referred To Contact RADIOLOGY Procedures CT CHEST W CON Ana Bennett PA [address] [place] [address] Phone: tel: fax: Referral ID Status Reason Start Date Expiration Date V isits Requested Visits Authorized [id number] New Request 07/22/2025 07/22/2026 1 1 * Imaging (Emergency) - New Request Specialty Diagnoses / Procedures Referred By Hamilton daniels Referred To Contact RADIOLOGY Procedures CT HEAD WO CON Heather Guevara MD [address] [facility] [address] [place] [address] Phone: tel: fax: Referral ID Status Reason Start Date Expiration Date V isits Requested Visits Authorized [id number] New Request 07/22/2025 07/22/2026 1 1 Reason for Visit * Reason Comments Altered Mental Status * Auth/Cert Specialty Diagnoses / Procedures Referred By Hamilton daniels Referred To Contact Diagnoses Hyperkalemia Lactic acidosis ESRD (end stage renal disease) on dialysis ([facility]) Atrial fibrillation with rapid ventricular response ([facility]) Severe sepsis due to Streptococcus pneumoniae with acute organ dysfunction ([facility]) Sepsis, due to unspecified organism, unspecified whether acute organ dysfunction present ([facility]) Procedures NONE Elizabeth Haley MD [address] [place] [address] Phone: tel: fax: Referral ID Status Reason Start Date Expiration Date Visits Re quested Visits Authorized [id number] 1 1 Encounter Details Date Type Department Care Team (Late st Contact Info) Description 07/22/2025 11:19 AM CDT - 07/28/2025 12:35 PM CDT Hospital Encounter [facility] [address] Heather Guevara MD [address] [facility] [address] [place] [phone] Elizabeth Haley MD [address] [place], [place] [address] Dutch Cotton MD [address] [place] [address] [phone] (Work) Rui العراقي MD [address] [place] [address] Ritika Morton NP [address] [place] [address] [place] [address] Altered Mental Status Discharge Disposition: Intermediate Facility Social History Tobacco Use Types Packs/Day Years Used Date Smoking Tobacco: Never Smokeless Tobacco: Never Alcohol Use Standard Drinks/Week Comments No 0 (1 standard drink = 0.6 oz pur e alcohol) [facility] Utilities Answer Date Recorded In the past 12 months has [facility] [employer], gas, oil, or water [address] threatened to shut off services in your home? No 07/23/2025 Humiliation, Afraid, Rape, and Kick questionnair e Answer Date Recorded Within the last year, have y ou been afraid of your partner or ex-partner? No 07/23/2025 Within the last year, have y ou been humiliated or emotionally abused in other ways by your partner or ex-partner? No Within the last year, have y ou been kicked, hit, slapped, or otherwise physically hurt by your partner or ex-partner? No 07/23/2025 Within the last year, have y ou been raped or forced to have any kind of sexual activity by your partner or ex-partner? No 07/23/2025 Social Connection and Isolat ion Panel [NHANES] Answer Date Recorded In a typical week, how many times do you talk on the phone with family, friends, or neighbors? More than three times a week 01/08/2024 How often do you get togethe r with friends or relatives? More than three times a week 01/08/2024 How often do you attend chur ch or episcopalian services? 1 to 4 times per year 01/08/2024 Do you belong to any clubs o r organizations such as oriental orthodox groups, unions, fraternal or athletic groups, or school groups? Yes 01/08/2024 How often do you attend meet ings of the clubs or organizations you belong to? 1 to 4 times per year 01/08/2024 Are you , , di vorced, , never , or living with a partner? 01/08/2024 AUDIT-C Answer Date Recorded Q1: How often do you have a drink containing alcohol? Never 01/08/2024 Q2: How many drinks containi ng alcohol do you have on a typical day when you are drinking? Patient does not drink Q3: How often do you have si x or more drinks on one occasion? Never 01/08/2024 Overall Financial Resource Strain (CARDIA) Answe r Date Recorded How hard is it for you to pa y for the very basics like food, housing, medical care, and heating? Not hard at all 07/23/2025 [employer] - Occupational Stress Questionnaire Answer Date Recorded Do you feel stress - tense, restless, nervous, or anxious, or unable to sleep at night because your mind is troubled all the time - these days? Not at all 01/08/2024 Exercise Vital Sign Answer Date Recorde d On average, how many days pe r week do you engage in moderate to strenuous exercise (like a brisk walk)? 0 days 01/08/2024 On average, how many minutes do you engage in exercise at this level? 0 min 01/08/2024 Hunger Vital Sign Answer Date Recorded Within the past 12 months, y ou worried that your food would run out before you got the money to buy more. Never true 07/23/20 25 Within the past 12 months, t he food you bought just didn't last and you didn't have money to get more. Never true 07/23/2025 PRAPARE - Transportation Answer Date Re corded In the past 12 months, has l ack of transportation kept you from medical appointments or from getting medications? No 06/26 In the past 12 months, has l ack of transportation kept you from meetings, work, or from getting things needed for daily living? No 07/23/2025 Housing Stability Vital Sign Answer Zaheer e Recorded In the last 12 months, was t here a time when you were not able to pay the mortgage or rent on time? No 01/08/2024 In the last 12 months, how many places have you lived? 1 01/08/2024 In the last 12 months, was t here a time when you did not have a steady place to sleep or slept in a correction (including now)? No 01/08/2024 Housing Stability Vital Sign Answer Zaheer e Recorded In the last 12 months, was t here a time when you were not able to pay the mortgage or rent on time? No 07/23/2025 In the past 12 months, how m any times have you moved where you were living? 0 07/23/2025 At any time in the past 12 m [facility], were you homeless or living in a correction (including now)? No 07/23/2025 Comments No Sex and Gender Information Value Date Recorded Sex Assigned at Female 07/22/2025 12:46 PM CDT Legal Sex Female 1:27 PM CDT Gender Identity Not on file Sexual Orientation Not on file Occupation Industry Job Start Date Job End Date Not on file Not on file Not on file Not on file documented as of this encounter Last Filed Vital Signs Vital Sign Reading Time Taken Comments Blood Pressure 101/76 07/28/2025 11:09 AM CDT Pulse 82 07/28/2025 11:09 AM CDT Temperature 36.3 C (97.3 F) 07/28/2025 11:09 AM CDT Respiratory Rate 21 07/28/2025 11:0 9 AM CDT Oxygen Saturation 100% 07/28/2025 11: 09 AM CDT Inhaled Oxygen Concentration - - Weight 126.6 kg (279 lb 1.6 oz) 07/28/2025 4:19 AM CDT Height 167.6 cm (5' 6) 07/22/2025 11:2 3 AM CDT Body Mass Index 45.05 07/22/2025 11:23 AM CDT documented in this encounter Functional Status * Question Answer Date of Assessment Author Status Do you have serious difficulty walking or climbing stairs? Yes 07/23/2025 12:00 AM Ramila Yoon RN Act margarita * Question Answer Date of Assessment Author Status Do you have difficulty dressing or bathing? Yes 07/23/2025 12:00 AM Ramila Yoon RN Active Because of a physical, mental, or emotional condition, do you have difficulty doing errands alone such as visiting a doctor's office or shopping? Yes 07/23/2025 12:00 AM Ramila Yoon RN Acti ve * Are you deaf or do you have serious difficulty hearing Answer Date of Assessment Author Status No 07/23/2025 12:00 AM Ramila Yoon RN Active * Are you blind or do you have serious difficulty seeing, even when wearing glasses? Answer Date of Assessment Author Status No 07/23/2025 12:00 AM Ramila Yoon RN Active * Do you have serious difficulty walking or climbing stairs? Answer Date of Assessment Author Status Yes 07/23/2025 12:00 AM Ramila Yoon RN Active * Do you have difficulty dressing or bathing? Answer Date of Assessment Author Status Yes 07/23/2025 12:00 AM Ramila Yoon RN Active * Because of a physical, mental, or emotional condition, do you have difficulty doing errands alone such as visiting a doctor's office or shopping? Answer Date of Assessment Author Status Yes 07/23/2025 12:00 AM Ramila Yoon RN Active * Question Answer Date of Assessment Author Status Are you deaf or do you have serious difficulty hearing No 07/23/2025 12:00 AM Ramila Yoon RN Active Are you blind or do you have serious difficulty seeing, even when wearing glasses? No 07/23/2025 12:00 AM Ramila Yoon RN Acti ve * Calculated C-SSRS Risk Score (Lifetime/Recent) Answer Date of Assessment Author Status No Risk Indicated 07/22/2025 11:28 AM Calvin Lang, Nurse Formula Maker II Active * [place] Suicide Severity Rating Scale (Screener/Recent Self-Report) Question Answer Date of Assessment Author Status 1. Wish to be (Past 1 Month) No 07/22/2025 11:28 AM CDT Carole Nunez Nurse Formula Maker II Active 2. Non-Specific Active Suicidal Thoughts (Past 1 Month) No 07/22/2025 11:28 AM CDT Carole Nunez Nurse Formula Maker II Active 6. Suicidal Behavior (Lifetime) No 07/22/2025 11:28 AM CDT Carole Nunez Nurse Formula Maker II Active documented as of this encounter Mental Status * Question Answer Entry Date Author Status Because of a physical, mental, or emotional condition, do you have serious difficulty concentrating, remembering, or making decisions? No 07/23/2025 12:00 AM CDT Ramila Cantrell RN Active * Because of a physical, mental, or emotional condition, do you have serious difficulty concentrating, remembering, or making decisions? Answer Entry Date Author Status No 07/23/2025 12:00 AM CDT Ramila Cantrell RN Active documented in this encounter Discharge Summaries * Maryse Kaplan APRN - 07/28/2025 11:13 AM CDT Images from the original note were not included. Hospitalist Discharge Summary Patient ID: Zander Adler. female. 1945. Admit date: 07/22/2025 11:19 AM Discharge date and time: 07/28/25 Admitting Provider: Elizabeth Haley MD Attending Provider: Maryse Kaplan APRN Primary Care Provider: CARL MALONEY MD Hospital Diagnosis: Principal Problem: Severe sepsis ([facility]) SNOMED CT(R): SEPSIS Indication for Admission: Chief Complaint Patient presents with Altered Mental Status Hospital Course: Per H&P, Zander Adler is a 80-year-old female with past medical history of Afib, CHF, HTN, ESRD, DM who presents today from dialysis for fever and change in mental status. Shedid not get dialysis today she lives in an SNF and her daughter who is present during this exam is active in her care. The patient complains of increasing bilateral leg pain for the past few weeks. Her daughter states that in the last week her pain and confusion have become significantly worse. [facility] but was unable to tolerate the [place] for further investigation. While at [place] her daughter says she was diagnosed with pseudomonas driven UTI. She was treated with both IV and PO antibiotics for this. Her daughter states that she has had more nasal discharge and stuffiness since d/c from [place], for which her PCP prescribed duoneb treatments and oxygen supplementation. She continues on the oxygen supplementation today. Denies known exposure to atypical bacteria, but living situation/recent hospital visits puts her at risk for atypical bacterial exposure. There are no other concerns at this time. Pt portal reviewed with daughter from [place] on most recent admission. Treated with rocephin for pseudomonas in urine. Blood cx were negative. No treatment for respiratory infection. Was treated for sepsis from HAP, acute respiratory failure, encephalopathy, afib with RVR. Now medically stable for discharge. See below for details on course of hospitalization. Sepsis due to suspected HAP pneumonia pt admitted recently at [place] lives in SNF and does HD Presented fever, chills with cough/URI s/s for about 1 week Lactate 3.4, trend Source: suspected HAP CXR showed new RUL lesions, considering atypicals Legionella negative UA 500 LE, negative nitrites, > 100 WBC, RBCs Blood cultures (07/22) NGTD2 Urine culture shows 1k-9k col/ml etienne albicans Received 500 IV fluid bolus, continue cautions IV fluids goal 30 mg/kg but limited due to dialysis IV antibiotics vancomycin and cefepime, monitor for toxicity MRSA swab positive Consider aspiration. 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 The pt does not exhibit any overt coughing or throat clearing; No immediate concern foracute dysphagia. CT chest LLL opacity concerning for consolidative PNA, small L pleural effusion PCT trended, though unreliable given ESRD Transition to Cefdinir and Doxy at discharge. Acute hypoxic respiratory failure With tachypnea 2/2 PNA Supported on O2 at 2 L with sats in the mid 90s. Without oxygen she dropped as low as the 80s Wean O2 as able, maintain O2 saturations > 90% IS/Acapella Currently on RA-1L LONNIE, RN to wean as able. Continue to wean at [facility] Acute metabolic encephalopathy-improving Noted to have confusion after HD today which nursing staff reports is new Per Care Everywhere, has had slowly worsening memory loss since 2020; follows with [facility] Was on donepezil but stopped as thought to be contributing to depression Check stat head CT, ammonia, B12, TSH-->negative Check BG -- 125 Treatment as above Neuro checks Consider neurology consult/MRI brain if no improvement Suspect she is at baseline cognition. BLE edema / pain Pt has extreme swelling to BLE with hardening to the soft tissues noted by her daughter Ongoing and worsening for a couple weeks. VDUS BLE negative for DVT/SVT Check ABIs -- couldn't tolerate so no readings obtained Consider additional diuresis during dialysis Pain likely 2/2 HD; continue supportive care Check iron studies, ferritin-->ferritin elevated, but iron improved from previous. Hyperkalemia requiring monitoring and treatment: Resolved 6.1. Given Lokelma but patient not taking POs well. Monitor closely Improved, continue to manage with HD NIDDM2 Accucheks/SSI Monitor Lantus lowered while hospitalized. Will need further titration. Transaminitis-improving Elevated LFT most likely due to severe sepsis will continue to monitor and test as needed No known exposures to hepatitis viruses Hold Statin No abdominal pain Improving. AST normalized ESRD on HD Foil Spinner is Dr. Alejandre Consult nephrology to assist with HD S/p Lokelma Normal regimen [facility] Nephrology recommending HD on 07/27; able to remove 2L, but didn't tolerate to completion due to hypotension.Continue midodrine on dialysis days D/w nephrology, chronically overloaded with difficulty removing fluid d/t hypotension. Consider additional day to dialysis regimen; will defer to primary mail messenger contractor. Afib with RVR History of A-fib but RVR most likely due to severe sepsis. Patient was given 1 1 bolus of 500. ESRDlimiting fluid resuscitation Pressures remained stable Anticoagulated with Eliquis Rate control with BB Cardiology consulted, appreciate assistance -- Would not aggressively treat right now, given HRs seem to be in general < 120. Can consider adding amio or dilt, if needed, if HRs remain above 100 prior to discharge. Cardiology considering amio oral loading for rate control Per cards, will hold off on amio load given elevated LFTs and HR generally <120 BB was lowered on admission. Will increase back to home dose as BP tolerates. Sinusitis Noted on CT Incidental breast calcifications Seen on CT: Scattered calcifications more numerous in the left than the right breast; might consider referral to breast imaging center for further evaluation Will need PCP follow up if not already addressed for further testing/imaging Left arm Sutures were removed prior to d/c Discharge Exam: Filed Vitals: 07/27/25 2249 07/28/25 0419 07/28/25 0821 07/28/25 1109 BP: 91/58 98/59 (!) 163/70 101/76 Pulse: 100 88 (!) 104 82 Resp: 18 18 24 21 Temp: 98.1 ??F (36.7 ??C) 99 ??F (37.2 ??C) 97.5 ??F (36.4 ??C) 97.3 ??F (36.3 ??C) TempSrc: Axillary Axillary Oral Oral SpO2: 96% 95% 98% 100% Weight: 126.6 kg (279 lb 1.6 oz) Height: GEN: In no acute distress; sleepy, chronically ill appearing. Breathing comfortably on nasal cannula. HEENT: Clear conjunctiva. Mucous membranes moist. RESPIRATORY: Effort normal. Diminished b/l, no wheezes or crackles. CVS: Irregular, no MRG. ABD: Soft, Nontender. EXT: 1-2+ BLE edema. SKIN: Warm, dry. No rashes or ulcers. PSYCH: Flat affect NEURO: Sleepy, but oriented x3. No focal deficits Significant Diagnostic Studies: Recent Labs Lab 07/22/25 1127 07/23/25 0542 07/24/25 0553 07/25/25 0601 07/26/25 0549 07/27/25 0636 07/28/25 0433 WBC 9.33 7.44 7.10 6.04 6.63 5.90 6.25 RBC 3.23* 2.90* 2.95* 2.88* 3.26* 3.07* 3.37* HGB 9.5* 8.4* 8.7* 8.4* 9.6* 9.0* 10.0* HCT 32.0* 28.4* 29.5* 28.9* 32.3* 30.9* 34.8* MCV 99.1* 97.9 100.0* 100.3* 99.1* 100.7* 103.3* MCH 29.4 29.0 29.5 29.2 29.4 29.3 29.7 MCHC 29.7* 29.6* 29.5* 29.1* 29.7* 29.1* 28.7* PLT 277 254 242 244 252 255 211 RDW 15.8* 15.9* 16.0* 16.2* 16.3* 16.8* 17.0* MPV 10.0 10.0 10.2 10.2 10.2 9.8 10.5 PERNEU 85.2 79.5 75.6 74.5 74.8 76.1 74.3 PERLYM 6.9 9.5 12.8 12.9 12.7 11.4 11.8 PERMON 6.2 7.0 8.5 9.3 9.2 9.8 9.8 NEUC 7.95* 5.91 5.37 4.50 4.96 4.49 4.64 LYMC 0.64* 0.71* 0.91* 0.78* 0.84* 0.67* 0.74* MONOC 0.58 0.52 0.60 0.56 0.61 0.58 0.61 EOSC 0.05 0.22 0.17 0.14 0.16 0.10 0.18 BASOC 0.04 0.04 0.02 0.02 0.02 0.03 0.04 DTYPE AUTOMATED DIFFERENTIAL AUTOMATED DIFFERENTIAL AUTOMATED DIFFERENTIAL AUTOMATED DIFFERENTIAL AUTOMATED DIFFERENTIAL AUTOMATED DIFFERENTIAL AUTOMATED DIFFERENTIAL Recent Labs Lab 07/22/25 1127 07/23/25 0542 07/24/25 0553 07/25/25 0601 07/26/25 0549 07/27/25 0636 07/28/25 0433 NA 134* 137 137 138 136 137 136 K 6.1* 4.2 4.2 4.0 4.4 4.2 4.6 CL 99 101 101 102 99 103 106 CO2 25.2 27.1 26.3 27.9 24.5 28.3 21.5 AGAP 9.8 8.9 9.7 8.1 12.5* 5.7 8.5 BUN 54* 29* 43* 31* 42* 27* 40* CR 5.43* 3.19* 4.29* 3.52* 4.61* 3.27* 4.19* BUNCREATININ 9.9 9.1 10.0 8.8 9.1 8.3 9.5 GLU 144* 66* 129* 125* 137* 161* 165* CA 10.3* 9.9 9.5 10.0 10.0 10.3* 10.0 TP 6.9 6.0* 6.3* 6.2* 7.1 6.6 6.9 ALB 2.4* 2.1* 2.2* 2.2* 2.4* 2.3* 2.4* TBIL 0.7 0.8 0.9 0.6 0.6 0.9 0.6 ALKP 251* 219* 230* 203* 223* 204* 205* AST 130* 269* 139* 122* 85* 40* 33 ALT 69* 167* 143* 136* 133* 94* 76* Recent Labs Lab 07/23/25 0542 HGBA1C 7.4* TSH 2.910 No results for input(s): APTT, INR, PTT in the last 168 hours. Recent Labs Lab 07/22/25 1127 07/22/25 1338 TROP 62* 56* Recent Labs Lab 07/22/25 1137 07/22/25 1338 07/22/25 1633 07/23/25 0542 07/26/25 0549 07/27/25 0636 07/28/25 0433 LACTICACID 3.4* 2.8* 2.0 -- -- -- -- PROCT -- -- -- < > 0.69* 1.19* 0.78* < > = values in this interval not displayed. No results for input(s): PH, PCO2, PO2, [id number], BICARBWB, BASEDEFICIT, BASEEXCESS in the last 168 hours. No results found for this or any previous visit. Radiology Reports : See official reports for full details CT HEAD WO CON Result Date: 07/26/2025 [facility] [address] [place], [place] [address] CT HEADWITHOUT CONTRAST Exam date: 07/26/2025 1:45 PM Clinical history: Altered mental status Technique: 3 mm collimated axial images of the head were obtained without contrast. A dose lowering technique wasused for this procedure, which may include, but is not limited to, dose reduction technique, automated exposure control, the use of iterative reconstruction, and ALARA (As Low As Reasonably Achievable) / Image Gently techniques. Comparison: July 22, 2025 FINDINGS: Images of the head demonstrate no evidence of acute or chronic intracranial hemorrhage. No masses or mass effects are seen. The ve ntricles and sulci are symmetric. There is no evidence of midline shift. There is normal linda-whitedifferentiation throughout. No extra-axial fluid collections are evident. Bone windows reveal the paranasal sinuses and mastoid air cells to appear clear. There is no evidence of fracture. IMPRESSION: Stable head CT. No acute findings Ordered By: RITIKA MORTON Interpreted By: Harry Milton MD, 07/26/2025 1:45 PM USV ART REST W BURAK LOW EXT Result Date: 07/26/2025 ARTERIAL DOPPLER - BURAK BILATERAL LOWER EXTREMITY VASCULAR LAB Pat.Name: ZANDER ADLER Pat.ID: [id number] .Date: 07/24/2025 Exam Time: 3:07:00 PM Study Type:SHANON VS Arterial Doppler Legs JONATAN Height:66 in Age: 9 1945,80Y Sex: F Sonogrphr: Best Eddy RDMS, MARKT History / Clinical:BLE edema Procedures: Doppler waveforms, Digit PPG, Systolic Pressures w/BURAK Race: W ++++++++++++++++++++++++++++++++++++ SUMMARY: ++++++++++++++++++++++++++++++++++++ Andrés BURAK Criteria: >1.30 = falsely elevated, calcified vessels; 1.00-1.29 = no signif ischemia at rest ; .80-.99 = mild PAD, asymptomatic; .50-.79 = moderate PAD, claudication; <.50 = severe PAD, rest pain; <.30 = critical PAD, necrosis, poor healing (Digits: DBI >.60 Normal; <.60 Abnormal) (Positive Stress eval: BURAK decrease of >.20 or >20% pressure drop) Right leg: Common Femoral waveform is biphasic, low amplitude; Popliteal biphasic, low amplitude; Posterior Tibial biphasic, low amplitude with BURAK 0 ; DP/Anterior Tibial biphasic, low amplitude with BURAK 0 . Digit flow by PPG is not recorded with DBI . Left leg: Common Femoral waveform is biphasic, low amplitude; Popliteal biphasic, low amplitude; Posterior Tibial biphasic, low amplitude with BURAK 0 ; DP/Anterior Tibial biphasic, low amplitude with BURAK 0 . Digit flow by PPG is not recorded with DBI . Extremely limited non-diagnostic exam due to patientscompliance and leg pain. CONCLUSION: 1. BURAK right leg were not obtained due to non-compressible vessels. The toe index was not obtained due to patient compliance. Dampened biphasic waveforms seen at each level. 2. BURAK left leg were not obtained due to non-compressible vessels. The toe index was notobtained due to patient compliance. Dampened biphasic waveforms seen at each level. 3. Extremely limited non-diagnostic exam due to patients compliance and leg pain. ++++++++++++++++++++++++++++++++++++ MEASUREMENTS: ++++++++++++++++++++++++++++++++++++ PRESSURES Right Brachial Brach P 136 mmHg Right Ankle DP AnkleDP P 0 mmHg Right Ankle PT AnklePT P 0 mmHg Right BURAK PT BURAK PT 0 Right BURAK DP BURAK DP 0 Left Ankle DP AnkleDP P 0 mmHg Left Ankle PT AnklePT P 0 mmHg Left BURAK PT BURAK PT 0 Left BURAK DP BURAK DP 0 <Electronic Signature> 07/26/2025 07:39 AM Nikhil Andrews M.D. XR FOOT RT 2V Result Date: 07/24/2025 [facility] [address] [place], [place] [address] Examination: XR FOOT RT 2V Exam time: 07/23/2025 5:35 PM Clinical history: Right great toe pain. Comparison:None. Technique: AP and lateral views of the right foot obtained portably. Findings: The bones are diffusely demineralized. Soft tissue swelling overlies the medial aspect of the hindfoot. Mild osteoarthritis affects the first metatarsophalangeal joint. There is mild scattered interphalangeal joint osteoarthritis. Mild to moderate osteoarthritis affects the midfoot. Plantar and posterior calcaneal enthesophytes are noted. No radiographic evidence is seen to suggest acute fracture or malalignment of the bones of the right foot. There are atherosclerotic calcifications. Amorphous calcifications posterior and anterior to the lower leg are nonspecific but could be related to prior injury. There are hammertoe deformities of the lesser toes. IMPRESSION: 1. Diffusely demineralized bones without evidence to suggest acute fracture or malalignment of the bones of the right foot. 2. Osteoarthritis as above. 3. Soft tissue swelling overlying the medial aspect of the hindfoot. Referred By: Interpreted By: Jac Lara DO, 07/24/2025 2:12 AM [facility] DUPLEX LOW EXT JONATAN Result Date: 07/23/2025 VENOUS DUPLEX IMAGING BILATERAL LOWER EXTREMITY VASCULAR LAB Pat.Name: ZANDER ADLER Pat.ID: [id number] .Date: 07/22/2025 Refer.: [id number], Live zhang Exam Time: 3:33:00 PM Study Type:SHANON VS Venous Duplex Legs JONATAN Height: 67 in Age: 9 1945,80Y Sex: F Sonogrphr: Best Eddy RDMS, MARKT History / Clinical:BLE edema Procedures: Linda scale, Color Doppler imaging, Doppler Spectral Analysis Race: W ++++++++++++++++++++++++++++++++++++ SUMMARY: ++++++++++++++++++++++++++++++++++++ Right leg: There are NO apparent, deep or superficial vein, ACUTE character venous filling defects visualized in the common femoral, proximal deep femoral, femoral, popliteal, gastrocnemius, posterior tibial, peroneal, great saphenousveins. Resting venous flow is phasic and significantly pulsatile. Left leg: There are NO apparent, deep or superficial vein, ACUTE character venous filling defects visualized in the common femoral, proximal deep femoral, femoral, popliteal, gastrocnemius, posterior tibial, peroneal, great saphenousveins. Resting venous flow is phasic and significantly pulsatile. Limited exam bilaterally due to patients condition, lower extremity swelling, and patients pain tolerance with compression. CONCLUSION: Limited exam bilaterally due to patients condition, lower extremity swelling, and patients pain tolerance with compression. No evidence of acute DVT or SVT seen in the bilateral lower extrmities. Pulsatile venous flows are suggestive of central venous hypertension (CHF, pulmonary HTN, right heart failure), though this may be a normal finding in a young, healthy patient. <Electronic Signature> 07/23/2025 09:59 PM Nikhil Andrews M.D. USE ECHOCARDIOGRAM W CON Result Date: 07/23/2025 Echocardiography Report Pat.Name: ZANDER ADLER Pat.ID: [id number] St.Date: 07/23/2025 Exam Time:1:08:00 PM Study Type:ECHO WITH CARDIAC DOPPLER COMP Height: 66 in Weight: 270 lb BSA: 2.27 m2 DOBAge: 1945,80Y Sex: F BP: 109/52 HR: 107 bpm Sonogrphr: Whitney Velazquez [facility] Pat. Stat.:[facility] Reason for Study:Congestive heart failure History / Clinical:BLE edema Procedures: 2D, M-m ode, Doppler, Color Flow, Definity was used to enhance endocardial definition. The study quality istechnically difficult. Race: W ++++++++++++++++++++++++++++++++++++ SUMMARY: +++++++++++++++++++++++ +++++++++++++ Left ventricle is normal in size with low normal systolic function Estimated EF of 50-55% Moderate LVH Right ventricle is enlarged with low normal systolic function Moderate to severe aortic stenosis Mild to moderate mitral and pulmonic regurgitation Moderate tricuspid regurgitation Moderate pulmonary hypertension. Mildly dilated ascending aorta. ++++++++++++++++++++++++++++++++++++FINDINGS: ++++++++++++++++++++++++++++++++++++ LV: The left ventricular size is normal. The left ventricular systolic function is lower limits of normal. Estimated left ventricular ejection fraction is 50-55%. Moderate concentric left ventricular hypertrophy. Left ventricular diastolic function is not reliably assessed. WM: Wall motion appears normal in all segments. RV: The right ventricular size is mild to moderately enlarged. Right ventricular systolic function is at the lower limit of normal. IVS: No evidence of ventricular septal defect. LA: The left atrial volume is severely increased (>48 ml/M2). RA: Right atrial size is mildly enlarged. IAS: Atrial septum appears intact. WILNER: Noevidence of pericardial effusion. AO: The sinus of Valsalva measures 3.9cm. The proximal ascending aorta measures 4.1cm. PA: Estimated right atrial pressure of 8 mmHg. SVn: Inferior vena cava is not dilated. Inferior vena cava shows <50% collapse with respiration consistent with elevated right atrial pressure. AV: The aortic valve is trileaflet. Moderate to severe aortic valve stenosis. The peak velocity across the aortic valve measures 4.19m/sec with a peak gradient of 70mmHg and a mean gradient of 40mmHg. The calculated aortic valve area is 0.9cm2. No evidence of aortic valve regurgitation. Moderate to severe calcification of aortic valve leaflets. MV: Mild to moderate mitral regurgitation. No evidence of mitral stenosis. Moderate thickening of mitral valve leaflets. PV: No evidence of pulmonic valve stenosis. Mild to moderate pulmonic regurgitation. TV: Moderate tricuspid regurgitation. Right ventricular systolic pressure is 50-60 mmHg suggestive of moderate pulmonary hypertension. No evidence of tricuspid valve stenosis. ++++++++++++++++++++++++++++++++++++ MEASUREMENTS: +++++ +++++++++++++++++++++++++++++++ DOPPLER LVOT LVOTpkPG 6 mmHg LVOTmnPG 3 mmHg LVOTpkVel 127 cm/s (70-110)+* LVOT SV 69 ml LVOT TVI 22 cm Right Atrium RA Press 8 mmHg Rasmussen's Disk 20 AV Forward Flow AV TVI 75 cm AV pkPG 61 mmHg AV pkVel 392 cm/s (100-170)+* Area (TVI) 0.92 cm2 (3-5)* AV mnPG 36 mmHg Area (Lee) 1.02 cm2 (3-5)* MV Forward Flow MV DeTm 194 msec MV P1/2t 57 msec (30-60)+ MVA P1/2t 3.86 cm2 (4-6)* MV pkE 155 cm/s (60-130)+* PV Forward Flow PV pkVel 107 cm/s (60-90)+* PV AC 89 msec PV pkPG 5 mmHg TV Regurg Flow TV pkPG 50 mmHg TV pkVel 354 cm/s (30-70)* Right Ventricle RVsys P 58 mmHg Right Ventricle 10.9 cm/s Lat E' Lat e 13.5 cm/s Lat E/E' Lat E/e 11.5 Med E' Med e 8.44 cm/sMed E/E' Med E/e 18.4 Aortic Valve Aortic Valve Ar 0.41 Aortic Valve Ve 0.32 AV DI Value 0.29 Left Ventricle LV IVRT 33 msec PV Antegrade Flow Acceleration Sl 1030 cm/s2 2D Left Ventricle LVIDd 5.13 cm (3.6-5.2) LV ESV 23.2 ml LVIDs 3.87 cm (2.3-3.9) LV ESV 53.7 ml LngAxd 7.61 cm LVESV BP 35.2 ml LngAxd 7.93 cm LV EF 57.4 % LV EDV 54.5 ml LV EF 53.3 % LV EDV 115 ml LV EF BP 56.4 % LVEDV BP 80.7 ml LV SV 31.3 ml LngAxs 6.53 cm LV SV 61.3 ml LngAxs 6.64 cm LV SV BP 45.5 ml LVPW LVPWd 1.38 cm Ventricular Septum IVSd 1.39 cm Left Atrium LA VOLBP 179 ml Aorta Ao Rtd 3.9 cm Ao Asc 4.1 cm (2.1-3.4)* LVOT LVOT 2 cm LVOTArea 3.14 cm2 Ratios IVS Inferior vena cava IVC Diam 17.9 mm LA Biplane LAVolI BP 78.9 ml/m2 RA Single Plane Right Atrium MO 17.7 mm Right Atrium Sy 71.1 ml Right Atrium Sy 61.4 mm Right Atrium Sy 31.3 ml/m2 Right Atrium Sy 22.6 cm2 Right Ventricle Right Ventricle 45.6 mm Right Ventricle 38.3 mm Major [place] 68.2 mm MMODE TA Tricuspid Annul 15.2 mm <Electronic Signature> 07/23/2025 03:59 PM Real Hodges M.D. 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 PULMONARY EMBOLUS PROTOCOL CLINICAL INDICATION: 80-year-old female. Reason for examination: Nodule in the right upper lobe. Possible atypical pneumonia, atrial fibrillation look for pulmonary embolus. Abnormal chest x-ray . TECHNIQUE: CT acquisition was performed according to the standard protocol from the aortic arch to the upper abdomen during the pulmonary enhancement phase of an intravenous contrast bolus of 80 cc of Isovue 370. Intravenous contrast injected into indwelling access in the right antecubital fossa. No adverse contrast reaction reported. Additional coronal 3-D reconstructions and postprocessing volume rendered MIP vascular images of the pulmonary arteries was performed. Dose lowering technique was used for this study which may include, but is not limited to, dose reduction techniques, automated exposure control, use of iterative reconstruction and ALARA(As low As Reasonably Achievable)/Image Gently techniques. COMPARISON: Portable AP view of the chest 07/22/2025 and 01/11/2024 CT of the chest without contrast 07/18/2016 and 07/11/2016 Thyroid ultrasound 07/14/2016 CT cervical spine without contrast 04/12/2022 Nuclear medicine VQ scan 07/11/2016 FINDINGS: The study was technically adequate to the lobar level only. No intraluminal filling defects, wall t hickening, or thrombus is present in the pulmonary arterial vascular tree to the lobar level suggest pulmonary embolus . A segmental or subsegmental pulmonary embolus would not be seen on this study due to respiratory motion and a small, renal preserving bolus. Lower neck/chest soft tissues: The partially calcified lesion in the right upper chest right lower neck supraclavicular region is redemonstrated and is seen to be large calcified right thyroid nodule, stable evaluated and noted since 2016. Most recently nearly identical appearance on CT of the cervical spine. Today this measures 4.1 x 2.7 x 3.8 cm similar to that documented on the thyroid ultrasound of 2016. Additional calcified and n oncalcified nodules in the enlarged left and right lobe of the thyroid in keeping with the given diagnosis of previous imaging of multinodular goiter. There are scattered calcifications throughout the left and right breast tissues. Might consider referral to breast imaging Center for further evaluation Numerous spiderlike opacified ectatic superficial right breast wall and right subclavian and axillary vein varicosities may be sequela of right upper extremity AV fistula. Lungs/pleura: There is a small left pleural effusion and overlying larger area of dense consolidation and atelectasis suspect for infectious inflammatory consolidative pneumonia involving the lingula and the left lower lobe. Left upper lobe clear and the right lung is clear. There is subtle dependent interlobular septal thickening hazy posterior groundglass opacity which could represent mild pulmonary edema or reflective of fluid/volume overload. Heart/great vessels/aorta: Stable measured ectasia ascending aorta maximal diameter 40 mm unchanged since 2016. Normal caliber aortic arch descending aorta and suprarenal aorta. Widespread calcific atherosclerosis of the aorta and heavy plaque at the ostia the celiac trunk and SMA and right and left renal arteries has increased since 2016. Since December 2023 the patient has received of right IJ hemodialysis catheter and the tips are in good position at the right atrial SVC junction. Mild cardiomegaly due to four-chamber enlargement. Aortic valve and coronary artery calcifications. Small, 8mm probably physiologic pericardial effusion. Mild hepatic venous reflux probably chronically elevated right heart pressures or fluid/volume overload. Mediastinum/itzel: There is no mediastinal or hilar or axillary lymphadenopathy. Esophagus unremarkable. No evidence of thoracicaortic dissection. Upper abdomen: Scattered granulomata throughout the liver and spleen mild diffuse hepatic steatosis. Status post cholecystectomy. Tiny bilateral atrophic kidneys. Calcified enlarged right adrenal gland, likely calcified adenoma unchanged since 2016. Small hypodense left adrenal gland nodule also unchanged since 2016, probably stable adenoma. Bone window imaging: No acute or pathologic bony abnormality. Widespread diminished bone density exaggeration thoracic kyphosis long segment anterior longitudinal ligament calcification may be DISH.. IMPRESSION: 1. No CT evidence of pulmonary embolus to the lobar level as above 2. Large area of consolidative opacity left lower lobe probably infectious inflammatory consolidative pneumonia. 3. Small, probably associated left pleural effusion 4. Mild findings suggestive of dependent pulmonary edema or could be fluid/volume overload 5. The calcified lesion in the right upper lung is seen to be calcified thyroid nodule. Additional stable findings of multinodular goiter. 6. Cardiomegaly with small possibly physiologic pericardial effusion. 7. Stable large calcified right adrenal adenoma and small left adrenal adenoma 8. Scattered calcifications more numerous in the left than the right breast;might consider referral to breast imaging Center for further evaluation 9. Right upper extremity opacified ectatic venous varicosities from the subclavian and axillary veins may be related to prior right upper extremity AV fistula. This should be confirmed in the medical record. Referred By: Interpreted By: Deborah Sexton DO, 07/22/2025 3:[address] HEAD WO CON Result Date: 07/22/2025 [facility] [address] [place], [place] [address] EXAM: CT HEAD WO CON DATE: 07/22/2025 12:27 PM INDICATION: Altered mental status. TECHNIQUE: Transverse images through the head were obtained without intravenous contrast. A radiation dose lowering technique was used for this procedure, which may include, but is not limited to, dose reduction technique, automated exposure control, the use of iterative reconstruction, ALARA (As Low As Reasonably Achievable) techniques, and Image Gently techniques. COMPARISON: CT head 01/07/2024 FINDINGS: Motion degraded examination despite repeated imaging, limiting the sensitivity of this exam. There is no evidence of acute intracranial hemorrhage. No evidence of abnormal intra or extra axial fluid collections. The ventricles in extra-axial spaces are mildly prominent compatible with global volume loss and similar to prior. No evidence of mass, mass effect, or midline shift. Diffuse low-density within the white matter again consistent with chronic microangiopathy, similar to prior. No definite CT findings of acute territorial infarction, within limitations of motion. No calvarial fracture is seen. Diffuse permeative appearance of the calvarium. Diffuse opacification of the left maxillary sinus. Bilateral mastoid air cell effusion. The globes and orbits are symmetric and grossly unremarkable. IMPRESSION: 1. Motion degraded examination despite repeated imaging, limiting the sensitivity of this exam. 2. No definite CT findings of acute territorial infarction, within limitations of motion. 3. Senescent changes of global volume loss and chronic microangiopathy. 4. Diffuse permeative appearance of the calvarium. This is nonspecific but given the history of ESRD with hemodialysis this likely is secondary to renal osteodystrophy. 5. Diffuse opacification of the left maxillary sinus. Bilateral mastoid air cell effusion. Ordered By: HEATHER GUEVARA Interpreted By: Irvin Hernandez MD, 07/22/2025 12:52 PM XR CHEST PORTABLE Result Date: 07/22/[address] [address] IMAGINGSTUDIES: XR CHEST PORTABLE DATE: 07/22/2025 11:40 AM HISTORY: new o2 requirement 72-year-old female.Altered mental status during dialysis. Reported temperature of 100.3 prior to dialysis treatment 1 (did not receive dialysis today). Patient's daughter reports the patient was released from [facility] on 07/[facility]/2025 after treatment for urinary tract infection. COMPARISON: Chest portable 01/11/2024 and 01/07/2024. DISCUSSION: Portable AP upright view of the chest. Rightward rotated. 2.8 x 2.6 cmpartially calcified lesion projecting in the right upper chest and right lower neck/supraclavicular region which is not evident on the prior studies. Differential diagnosis would primarily include calcified enlarged lymph node or potential progression of vascular calcification. Right chest tunneleddialysis catheter with tip in the inferior right atrium is new since 01/11/2024. Stable cardiomegaly. No acute pulmonary vascular congestion. Aortic atherosclerotic calcifications. Low lung volumes but similar to prior studies. Chronic bilateral lung parenchymal scarring and pleural scarring. No appreciable significant pulmonary infiltrate or consolidation. No apparent pleural effusion or pneumothorax. Degenerative changes spine and shoulders. IMPRESSION: 1. Cardiomegaly. No acute pulmonary vascular congestion. Tunneled right chest dialysis catheter is new since 01/11/2024. 2. No apparent new pulmonary infiltrate or consolidation. 3. Partially calcified 2.8 cm lesion projecting in the right upper chest to right lower neck is not evident on 2023 radiographs. Could be further evaluated on nonemergent elective CT if clinically indicated. Ordered By: HEATHER GUEVARA Interpreted By: Aron Aguilar, 07/22/2025 12:08 PM Discharge condition: Improving Discharge Medications: Medication List START taking these medications Morning Around Noon Evening Bedtime As Needed cefdinir 300 MG Caps capsule Commonly known as: OMNICEF Start taking on: July 29, 2025 Take 1 capsule (300 mg total) by mouth daily for 1 day. Last time this was given: 300 mg on July 28, 2025 10:57 AM Signed by: Maryse Kaplan Last time this was given: July 28, 2025 10:57 AM Wait until Jul 29 1 capsule doxycycline hyclate 100 MG capsule Commonly known as: VIBRAMYCIN Take 1 capsule (100 mg total) by mouth every 12 (twelve) hours for 2 days. Last time this was given: 100 mg on July 28, 2025 10:57 AM Signed by: Maryse Kaplan Last time this was given: July 28, 2025 10:57 AM Take 1 capsule (100 mg total) by mouth every 12 (twelve) hours for 2 days. furosemide 40 MG tablet Commonly known as: LASIX Start taking on: July 30, 2025 120 mg BID on nondialysis days (Tuesday, , Tuesday) Last time this was given: 120 mg on July 27, 2025 8:51 AM Signed by: Maryse Kaplan Last time this was given: July 27, 2025 8:51 AM Wait until Jul 30 midodrine 10 MG tablet Commonly known as: PROAMATINE 10 mg 2 times per day on dialysis days (Tuesday, Tuesday, Tuesday). First dose in AM before dialysis. Second dose to be given during dialysis. Last time this was given: 10 mg on July 26, 2025 8:53 AM Signed by: Maryse Kaplan Last time this was given: July 26, 2025 8:53 AM 10 mg 2 times per day on dialysis days (Tuesday, Tuesday, Tuesday). First dose in AM before dialysis. Second dose to be given during dialysis. CHANGE how you take these medications Morning Around Noon Evening Bedtime As Needed Insulin Glargine-yfgn 100 UNIT/ML Sopn Inject 15 Units into the skin every morning. Last time this was given: Ask your nurse or doctor Signed by: Maryse Kaplan Last time this was given: Ask your nurse or doctor What changed: See the new instructions. Inject 15 Units into the skin every morning. CONTINUE taking these medications Morning Around Noon Evening Bedtime As Needed acetaminophen 500 MG tablet Commonly known as: TYLENOL Take 2 tablets (1,000 mg total) by mouth 2 (two) times a day. Last time this was given: 650 mg on July 25, 2025 6:59 PM Last time this was given: July 25, 2025 6:59 PM 2 tablets 2 tablets ARIPiprazole 2 MG tablet Commonly known as: ABILIFY Take 1.5 tablets (3 mg total) by mouth nightly. Last time this was given: 3 mg on July 27, 2025 9:07 PM Last time this was given: July 27, 2025 9:07 PM 1.5 tablets busPIRone 5 MG tablet Commonly known as: BUSPAR Take 1 tablet (5 mg total) by mouth 3 (three) times daily. Last time this was given: 5 mg on July 28, 2025 9:15 AM Last time this was given: July 28, 2025 9:15 AM Take 1 tablet (5 mg total) by mouth 3 (three) times daily. Cetirizine HCl 10 MG Caps Take 10 mg by mouth daily as needed (Allergies). Take 10 mg by mouth daily as needed (Allergies). cranberry 500 MG Caps Take 1 tablet (500 mg total) by mouth 3 (three) times daily with meals. 1 tablet 1 tablet 1 tablet docusate sodium 100 MG capsule Commonly known as: COLACE Take 1 capsule (100 mg total) by mouth 2 (two) times daily as needed for Constipation. Last time this was given: 200 mg on July 27, 2025 9:07 PM You are taking this medication differently than prescribed. If you have questions about this medication, ask the prescribing provider: Dr. Paulo Iglesias. Signed by: Dr. Paulo Iglesias Last time this was given: July 27, 2025 9:07 PM 1 capsule Eliquis 5 MG tablet Take 1 tablet (5 mg total) by mouth 2 (two) times daily. Last time this was given: 5 mg on July 28, 2025 9:15 AM Last time this was given: July 28, 2025 9:15 AM Generic drug: apixaban 1 tablet 1 tablet ferrous sulfate EC 324 (65 Fe) MG tablet Take 1 tablet (324 mg total) by mouth every other day. Takes on Tue, Tue, Tue Last time this was given: 324 mg on July 26, 2025 2:04 PM Last time this was given: July 26, 2025 2:04 PM Take 1 tablet (324 mg total) by mouth every other day. Takes on Tue, Tue, Tue fluconazole 150 MG tablet Commonly known as: DIFLUCAN Take 1 tablet (150 mg total) by mouth every 7 days. Takes on saturdays Last time this was given: 150 mg on July 27, 2025 6:50 PM Last time this was given: July 27, 2025 6:50 PM Take 1 tablet (150 mg total) by mouth every 7 days. Takes on saturdays guaiFENesin ER 600 MG 12 hr tablet Commonly known as: MUCINEX Take 2 tablets (1,200 mg total) by mouth 2 (two) times daily as needed for Congestion. 2 tablets ipratropium-albuterol 0.5-2.5 (3) MG/3ML Soln Commonly known as: DUONEB Take 3 mLs by nebulization every 4 (four) hours as needed (Shortness of breath). 3 mLs methylphenidate 10 MG tablet Commonly known as: RITALIN Take 1 tablet (10 mg total) by mouth 2 (two) times daily. TAKE WITH MEALS BREAKFAST AND LUNCH Last time this was given: 10 mg on July 28, 2025 9:15 AM Last time this was given: July 28, 2025 9:15 AM Take 1 tablet (10 mg total) by mouth 2 (two) times daily. TAKE WITH MEALS BREAKFAST AND LUNCH metoprolol tartrate 25 MG tablet Commonly known as: LOPRESSOR Take 1 tablet (25 mg total) by mouth 2 (two) times daily. Last time this was given: 25 mg on July 28, 2025 9:15 AM Last time this was given: July 28, 2025 9:15 AM 1 tablet 1 tablet miconazole 2 % vaginal cream Commonly known as: MONISTAT Place 1 applicator vaginally nightly as needed (Fungal infection). Place 1 applicator vaginally nightly as needed (Fungal infection). nitroglycerin 0.4 MG SL tablet Commonly known as: NITROSTAT Place 1 tablet (0.4 mg total) under the tongue every 5 (five) minutes as needed for Chest Pain. If taking 3rd dose, contact 911 Signed by: Cristina Palacios 1 tablet NovoLOG FlexPen 100 UNIT/ML injection (PEN) Inject into the skin 2 (two) times daily before meals. Sliding scale BS 200-250 = 4 units BS 251-300 = 6 units BS 301 - 350 = 8 units BS 351 - 400 = 12 units BS 401-500 = 12 units, call MD if greater than 400 Generic drug: insulin aspart Inject into the skin 2 (two) times daily before meals. Sliding scale BS 200-250 = 4 units BS 251-300 = 6 units BS 301 - 350 = 8 units BS 351 - 400 = 12 units BS 401-500 = 12 units, call MD if greater than 400 nystatin powder Commonly known as: MYCOSTATIN Apply topically 4 (four) times daily as needed (Fungal infection). Last time this was given: Ask your nurse or doctor Last time this was given: Ask your nurse or doctor ondansetron 4 MG tablet Commonly known as: ZOFRAN Take 1 tablet (4 mg total) by mouth every 8 (eight) hours as needed for Nausea. 1 tablet polyethylene glycol packet Commonly known as: GLYCOLAX Take 240 mLs (17 g total) by mouth daily as needed for Constipation. Dissolve powder in 240 mL water Last time this was given: 17 g on July 28, 2025 9:51 AM Last time this was given: July 28, 2025 9:51 AM 240 mLs rosuvastatin 10 MG tablet Commonly known as: CRESTOR Take 1 tablet (10 mg total) by mouth nightly at bedtime. 1 tablet sertraline 50 MG tablet Commonly known as: ZOLOFT Take 1 tablet (50 mg total) by mouth daily. Last time this was given: 50 mg on July 28, 2025 9:15 AM Last time this was given: July 28, 2025 9:15 AM Take 1 tablet (50 mg total) by mouth daily. Simethicone 125 MG Caps Take 1-2 capsules by mouth see administration instructions. Take 1-2 softgels as needed after mealsand at bedtime; max 4 softgels/day Take 1-2 capsules by mouth see administration instructions. Take 1-2 softgels as needed after mealsand at bedtime; max 4 softgels/day tiZANidine 2 MG tablet Commonly known as: ZANAFLEX Take 1 tablet (2 mg total) by mouth every 8 (eight) hours as needed (Muscle spasms). 1 tablet tolnaftate 1 % powder Commonly known as: TINACTIN Apply topically 2 (two) times daily as needed for Itching. traMADol 50 MG tablet Commonly known as: ULTRAM Take 1 tablet (50 mg total) by mouth every 6 (six) hours as needed for Pain. 1 tablet vitamin B-12 (CYANOCOBALAMIN) 1000 mcg tablet Commonly known as: CYANOCOBALAMIN Take 1 tablet (1,000 mcg total) by mouth nightly. Last time this was given: 1,000 mcg on July 27, 2025 9:07 PM Last time this was given: July 27, 2025 9:07 PM 1 tablet Xphozah 30 MG Tabs Take 1 tablet by mouth 2 (two) times a day. Last time this was given: 1 tablet on July 28, 2025 9:19 AM Last time this was given: July 28, 2025 9:19 AM Generic drug: Tenapanor HCl (CKD) Take 1 tablet by mouth 2 (two) times a day. STOP taking these medications zolpidem 5 MG tablet Commonly known as: TIGRE Follow up with PCP, nephrology, cardiology Disposition: SNF Discharge diet: The patient is asked to make an attempt to improve diet and exercise patterns to aid in medical management of this problem. Patient instructions: Take the Cefdinir (Omnicef) antibiotic once tomorrow. Take the Doxycycline starting tonight twice a day for 2 days. Your blood pressure runs low with dialysis. You should take the midodrine on dialysis days; once before dialysis and once during dialysis towards the end. You should take a water pill on the days you don't have dialysis. General instructions regarding heart failure action plan, heart failure discharge instructions, hospital acquired pneumonia were printed and provided to patient at time of discharge. Code Status: Full Code Time Spent on Discharge >30 minutes Signed: MARYSE KAPLAN APRN This note was dictated with [employer] medical dictation software; misspellings, punctuation errors, omitted words or dictation variances may occur. Cosigned by Estevan Ramirez MD at 07/29/2025 6:58 AM CDT * Violeta Bustamante, WATCH DIAL STONER - 07/26/2025 11:00 AM CDT 07/26/25 1045 Therapy Visit Subjective The pt is seen this morning while in dialysis to follow-up regarding PO diet recs. The pt is on a regular diet, thin liquids with chart reflecting intake of 100% when meals are charted. RNreceived no indication in report of concern for swallow safety. The pt is initially resting, but easily awakened and participatory with some encouragement. Inpatient WATCH DIAL STONER Time Calculation WATCH DIAL STONER Start Time 1029 WATCH DIAL STONER Stop Time 1042 WATCH DIAL STONER Time Calculation (min) 13 min Precautions PPE Used Gloves Bedside Swallow Therapeutic trials comment ORAL PHASE: The pt is edentulous and reports she does not like jorge crackers that are provided and that she doesn't have teeth, but WATCH DIAL STONER reminds the pt she has displayed her mastication abilities in the past with this consistency and that thin liquids can be used to assist as needed. The pt took very small bolus size with mastication being at least mildly prolonged. Liq uid wash is not needed to assist with most trials, but lip seal is achieved with straw presentationwhen used. PHARYNGEAL PHASE: Swallow trigger is timely, laryngeal elevation is present, and vocal quality is clear. The pt only displays a cough at the end of the session, well after trials are completed. Swallowing impressions/assessment Functional completion of unrestricted diet, despite edentulous status and no consistent clinical s/s of penetration/aspiration. Medical indicators reviewed reveal nolow grade fever, WBC is not in high range, and no new chest imaging to review. Plan WATCH DIAL STONER Plan for Next Session Recommend the pt continue with regular solids, thin liquids, straw ok, meds as tolerated. No further skilled ST is warranted. Please re-consult as needed. Communication completed with RNZoe. If this is the last treatment note, it will serve as the discharge summary Yes documented in this encounter Discharge Instructions * Discharge Instructions* Maryse Kaplan APRN - 07/27/2025 1:46 PM CDT Take the Cefdinir (Omnicef) antibiotic once tomorrow. Take the Doxycycline starting tonight twice aday for 2 days. Your blood pressure runs low with dialysis. You should take the midodrine on dialysis days; once before dialysis and once during dialysis towards the end. You should take a water pillon the days you don't have dialysis. * Attachments The following attachments cannot be sent through Care Everywhere. * Heart failure action plan (Tongan) * Heart Failure Discharge Instructions, Adult (Tongan) * Hospital-acquired pneumonia ([place]ongan) documented in this encounter Medications at Time of Discharge acetaminophen (TYLENOL) 500 MG tablet Take 2 tablets (1,000 mg total) by mouth 2 (two) times a day. ARIPiprazole (ABILIFY) 2 MG tablet Take 1.5 tablets (3 mg total) by mouth nightly. busPIRone (BUSPAR) 5 MG tablet Take 1 tablet (5 mg total) by mouth 3 (three) times daily. 12/01/2024 cefdinir (OMNICEF) 300 MG Cap capsule Take 1 capsule (300 mg total) by mouth daily for 1 day. 1 capsule 07/29/2025 07/30/20 Cetirizine HCl 10 MG Cap Take 10 mg by mouth daily as needed (Allergies). 01/21/2025 cranberry 500 MG Cap Take 1 tablet (500 mg total) by mouth 3 (three) times daily with meals. docusate sodium (COLACE) 100 MG capsule Take 1 capsule (100 mg total) by mouth 2 (two) times daily as needed for Constipation. 30 capsule 05/25/2022 doxycycline hyclate (VIBRAMYCIN) 100 MG capsule Take 1 capsule (100 mg total) by mouth every 12 (twelve) hours for 2 days. 4 capsule 07/28/2025 07/30/20 25 ELIQUIS 5 MG tablet Take 1 tablet (5 mg total) by mouth 2 (two) times daily. 02/02/2025 ferrous sulfate EC 324 (65 Fe) MG tablet Take 1 tablet (324 mg total) by mouth every other day. Takes on Tue, Tue, Tue fluconazole (DIFLUCAN) 150 MG tablet Take 1 tablet (150 mg total) by mouth every 7 days. Takes on saturdays furosemide (LASIX) 40 MG tabletIndication s:ESRD (end stage renal disease) on dialysis ([facility]) 120 mg BID on nondialysis days (Tuesday, , Tuesday) 30 tablet 07/30/2025 guaiFENesin ER (MUCINEX) 600 MG 12 hr tablet Take 2 tablets (1,200 mg total) by mouth 2 (two) times daily as needed for Congestion. 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 1 mL 07/28/2025 ipratropium-albu terol (DUONEB) 0.5-2.5 (3) MG/3ML Solution Take 3 mLs by nebulization every 4 (four) hours as needed (Shortness of breath). 07/20/2025 methylphenidate (RITALIN) 10 MG tablet Take 1 tablet (10 mg total) by mouth 2 (two) times daily. TAKE WITH MEALS BREAKFAST AND LUNCH 07/31/2024 metoprolol tartrate (LOPRESSOR) 25 MG tablet Take 1 tablet (25 mg total) by mouth 2 (two) times daily. 04/30/2024 miconazole (MONISTAT) 2 % vaginal cream Place 1 applicator vaginally nightly as needed (Fungal infection). midodrine (PROAMATINE) 10 MG tabletIndication s:Hypotension, unspecified hypotension type 10 mg 2 times per day on dialysis days (Tuesday, Tuesday, Tuesday). First dose in AM before dialysis. Second dose to be given during dialysis. 1 tablet 07/28/2025 nitroglycerin (NITROSTAT) 0.[address] 1 tablet (0.4 mg total) under the tongue every 5 (five) minutes as needed for Chest Pain. If taking 3rd dose, contact 911 25 tablet 3 03/26/2025 NOVOLOG FLEXPEN 100 UNIT/ML injection (PEN) Inject into the skin 2 (two) times daily before meals. Sliding scale BS 200-250 = 4 units BS 251-300 = 6 units BS 301 - 350 = 8 units BS 351 - 400 = 12 units BS 401-500 = 12 units, call MD if greater than 400 12/21/2021 nystatin (MYCOSTATIN) powder Apply topically 4 (four) times daily as needed (Fungal infection). ondansetron (ZOFRAN) 4 MG tablet Take 1 tablet (4 mg total) by mouth every 8 (eight) hours as needed for Nausea. polyethylene glycol packet Take 240 mLs (17 g total) by mouth daily as needed for Constipation. Dissolve powder in 240 mL water rosuvastatin (CRESTOR) 10 MG tablet Take 1 tablet (10 mg total) by mouth nightly at bedtime. sertraline (ZOLOFT) 50 MG tablet Take 1 tablet (50 mg total) by mouth daily. 11/30/2024 Simethicone 125 MG Cap Take 1-2 capsules by mouth see administration instructions. Take 1-2 softgels as needed after meals and at bedtime; max 4 softgels/day 02/18/2025 Tenapanor HCl, CKD, (XPHOZAH) 30 MG Tab Take 1 tablet by mouth 2 (two) times a day. tiZANidine (ZANAFLEX) 2 MG tablet Take 1 tablet (2 mg total) by mouth every 8 (eight) hours as needed (Muscle spasms). 06/23/2025 tolnaftate (TINACTIN) 1 % powder Apply topically 2 (two) times daily as needed for Itching. traMADol (ULTRAM) 50 MG tablet Take 1 tablet (50 mg total) by mouth every 6 (six) hours as needed for Pain. vitamin B-12 (CYANOCOBALAMIN) 1000 mcg tablet Take 1 tablet (1,000 mcg total) by mouth nightly. documented as of this encounter Progress Notes * Samantha Reveles RN - 07/28/2025 11:31 AM CDT 07/28/25 1131 Discharge Planning Living Arrangements Alone Support Systems Family members Type of Residence senior living Assistance Needed No Patient expects to be discharged to: [facility] Facility( SNF) Insurance Authorization needed No Does the patient need discharge transport arranged? Yes Type of transportation needed? Ambulance Has discharge transport been arranged? Yes What day is the transport expected? 07/28/25 What time is the transport expected? 1215 IV Infusion at discharge No DME Needed at Discharge No Patient to [facility] back [facility]. [facility] scheduled for 1215, trip # [phone]. Nurse to call report to [phone]. * Eduarda Alejandre MD - 07/28/2025 10:22 AM CDT Zander Adler is a 80-year-old female patient. Reason for Follow Up: ESRD on HD, hyperkalemia Subjective: Mrs. Adler is doing alright. No new complaints. She received DUF yesterday No fever or SOB No current facility-administered medications for this encounter. Current Outpatient Medications Medication Sig Dispense Refill acetaminophen (TYLENOL) 500 MG tablet Take 2 tablets (1,000 mg total) by mouth 2 (two) times a day. ARIPiprazole (ABILIFY) 2 MG tablet Take 1.5 tablets (3 mg total) by mouth nightly. busPIRone (BUSPAR) 5 MG tablet Take 1 tablet (5 mg total) by mouth 3 (three) times daily. [START ON 07/29/2025] cefdinir (OMNICEF) 300 MG Cap capsule Take 1 capsule (300 mg total) by mouth daily for 1 day. 1 capsule 0 cranberry 500 MG Cap Take 1 tablet (500 mg total) by mouth 3 (three) times daily with meals. docusate sodium (COLACE) 100 MG capsule Take 1 capsule (100 mg total) by mouth 2 (two) times daily as needed for Constipation. (Patient taking differently: Take 2 capsules (200 mg total) by mouth nightly.) 30 capsule 0 doxycycline hyclate (VIBRAMYCIN) 100 MG capsule Take 1 capsule (100 mg total) by mouth every 12 (twelve) hours for 2 days. 4 capsule 0 ELIQUIS 5 MG tablet Take 1 tablet (5 mg total) by mouth 2 (two) times daily. ferrous sulfate EC 324 (65 Fe) MG tablet Take 1 tablet (324 mg total) by mouth every other day. Takes on Tue, Tue, Tue fluconazole (DIFLUCAN) 150 MG tablet Take 1 tablet (150 mg total) by mouth every 7 days. Takes on saturdays [START ON 07/30/2025] furosemide (LASIX) 40 MG tablet 120 mg BID on nondialysis days (Tuesday, , Tuesday) 30 tablet 0 Insulin Glargine-yfgn 100 UNIT/ML Solution Pen-injector Inject 15 Units into the skin every morning. 1 mL 0 methylphenidate (RITALIN) 10 MG tablet Take 1 tablet (10 mg total) by mouth 2 (two) times daily. TAKE WITH MEALS BREAKFAST AND LUNCH metoprolol tartrate (LOPRESSOR) 25 MG tablet Take 1 tablet (25 mg total) by mouth 2 (two) times daily. midodrine (PROAMATINE) 10 MG tablet 10 mg 2 times per day on dialysis days (Tuesday, Tuesday, Tuesday). First dose in AM before dialysis. Second dose to be given during dialysis. 1 tablet 0 NOVOLOG FLEXPEN 100 UNIT/ML injection (PEN) Inject into the skin 2 (two) times daily before meals. Sliding scale BS 200-250 = 4 units BS 251-300 = 6 units BS 301 - 350 = 8 units BS 351 - 400 = 12 units BS 401-500 = 12 units, call MD if greater than 400 rosuvastatin (CRESTOR) 10 MG tablet Take 1 tablet (10 mg total) by mouth nightly at bedtime. sertraline (ZOLOFT) 50 MG tablet Take 1 tablet (50 mg total) by mouth daily. Tenapanor HCl, CKD, (XPHOZAH) 30 MG Tab Take 1 tablet by mouth 2 (two) times a day. vitamin B-12 (CYANOCOBALAMIN) 1000 mcg tablet Take 1 tablet (1,000 mcg total) by mouth nightly. Cetirizine HCl 10 MG Cap Take 10 mg by mouth daily as needed (Allergies). guaiFENesin ER (MUCINEX) 600 MG 12 hr tablet Take 2 tablets (1,200 mg total) by mouth 2 (two) timesdaily as needed for Congestion. ipratropium-albuterol (DUONEB) 0.5-2.5 (3) MG/3ML Solution Take 3 mLs by nebulization every 4 (four) hours as needed (Shortness of breath). miconazole (MONISTAT) 2 % vaginal cream Place 1 applicator vaginally nightly as needed (Fungal infection). nitroglycerin (NITROSTAT) 0.[address] 1 tablet (0.4 mg total) under the tongue every 5 (five) minutes as needed for Chest Pain. If taking 3rd dose, contact 911 25 tablet 3 nystatin (MYCOSTATIN) powder Apply topically 4 (four) times daily as needed (Fungal infection). ondansetron (ZOFRAN) 4 MG tablet Take 1 tablet (4 mg total) by mouth every 8 (eight) hours as needed for Nausea. polyethylene glycol packet Take 240 mLs (17 g total) by mouth daily as needed for Constipation. Dissolve powder in 240 mL water Simethicone 125 MG Cap Take 1-2 capsules by mouth see administration instructions. Take 1-2 softgels as needed after meals and at bedtime; max 4 softgels/day tiZANidine (ZANAFLEX) 2 MG tablet Take 1 tablet (2 mg total) by mouth every 8 (eight) hours as needed (Muscle spasms). tolnaftate (TINACTIN) 1 % powder Apply topically 2 (two) times daily as needed for Itching. traMADol (ULTRAM) 50 MG tablet Take 1 tablet (50 mg total) by mouth every 6 (six) hours as needed for Pain. Review of patient's allergies indicates: Allergen Reactions Sulfa Antibiotics Unknown Wellbutrin [Bupropion] Unknown Per [place] documentation Principal Problem: Severe sepsis ([facility]) SNOMED CT(R): SEPSIS Social History Tobacco Use Smoking status: Never Smokeless tobacco: Never Substance Use Topics Alcohol use: No Objective: Filed Vitals: 07/27/25 2249 07/28/25 0419 07/28/25 0821 07/28/25 1109 BP: 91/58 98/59 (!) 163/70 101/76 Pulse: 100 88 (!) 104 82 Resp: 18 18 21 Temp: 98.1 ??F (36.7 ??C) 99 ??F (37.2 ??C) 97.5 ??F (36.4 ??C) 97.3 ??F (36.3 ??C) TempSrc: Axillary Axillary Oral Oral SpO2: 96% 95% 98% 100% Weight: 126.6 kg (279 lb 1.6 oz) Height: Intermittent/Straight Cath (mL): 50 mL Physical Exam: -GENERAL: no apparent distress; on O2 NC -EYES: EOMI -LUNG: coarse breath sounds -CVS: Regular rate rhythm, systolic murmur -ABDOMEN: Soft, nontender -Musculoskeletal / EXT: legs edema up to thighs and hips, left arm AVF with bruit, deep to palpate -NEURO: AAOx3 LABs I reviewed labs Recent Labs Lab 07/22/25 1127 07/23/25 0542 07/24/25 0553 07/25/25 0601 07/26/25 0549 07/27/25 0636 07/28/25 0433 NA 134* 137 137 138 136 137 136 K 6.1* 4.2 4.2 4.0 4.4 4.2 4.6 CL 99 101 101 102 99 103 106 CO2 25.2 27.1 26.3 27.9 24.5 28.3 21.5 AGAP 9.8 8.9 9.7 8.1 12.5* 5.7 8.5 BUN 54* 29* 43* 31* 42* 27* 40* CR 5.43* 3.19* 4.29* 3.52* 4.61* 3.27* 4.19* BUNCREATININ 9.9 9.1 10.0 8.8 9.1 8.3 9.5 GLU 144* 66* 129* 125* 137* 161* 165* CA 10.3* 9.9 9.5 10.0 10.0 10.3* 10.0 MAGNESIUM 2.0 1.9 -- -- -- -- -- PHOS -- -- 7.4* -- -- -- -- Recent Labs Lab 07/22/25 1127 07/23/25 0542 07/24/25 0553 07/25/25 0601 07/26/25 0549 07/27/25 0636 07/28/25 0433 WBC 9.33 7.44 7.10 6.04 6.63 5.90 6.25 RBC 3.23* 2.90* 2.95* 2.88* 3.26* 3.07* 3.37* HGB 9.5* 8.4* 8.7* 8.4* 9.6* 9.0* 10.0* HCT 32.0* 28.4* 29.5* 28.9* 32.3* 30.9* 34.8* MCV 99.1* 97.9 100.0* 100.3* 99.1* 100.7* 103.3* MCH 29.4 29.0 29.5 29.2 29.4 29.3 29.7 MCHC 29.7* 29.6* 29.5* 29.1* 29.7* 29.1* 28.7* PLT 277 254 242 244 252 255 211 RDW 15.8* 15.9* 16.0* 16.2* 16.3* 16.8* 17.0* MPV 10.0 10.0 10.2 10.2 10.2 9.8 10.5 Assessment/Plan: Mrs. Adler a 76 y.o female with hx ESRD on chronic HD MWF, breast cancer, A.fib, Hypertension, DM, hx of seizure, nephrolithiasis, CHF. -patient went to dialysis today but had fever and AMS for which was sent here. [facility]. -recent admission to [facility]; treated for UTI / pseudomonas with Abx. -chest imaging showed no PE. It showed opacitiy over the left lung field, small left pleural effusion, cardiomegaly. ---ESRD on chronic HD MWF. Hyperkalemia on admission; s/p lokelma and dialysis on admission with improvement of K. S/p HD Tuesday with 2L UF and tuesday 2L UF. And DUF yesterday with 2L UF. On addedmidodrine for hypotension (increasing dose), and nephrocaps, added lasix on non-HD days. 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 Probably on lonc acting CHELITA as outpatient. added CHELITA with HD . Hg at 10 Plan for discharge today EDUARDA ALEJANDRE MD 07/28/2025 * Omero Marroquin RN - 07/27/2025 6:35 PM CDT 07/27/25 1758 Post Treatment Note Post Treatment Note Tx completed, 2L off. UF goal not reached due to decreased BP. Pt remain A&O X 3 with no s/s of acute distress observed. Endorsed to PCN. Vital Signs Temp 98.5 ??F (36.9 ??C) Temp src Oral Pulse 90 Heart Rate Source Monitor Resp 15 BP 113/40 BP Location Right arm BP Method Automatic Patient Position Lying Cuff size Adult Regular Post Treatment Weight Post-Treatment Weight (kg) 127.6 kg (281 lb 4.9 oz) Additonal Post Treatment Information Time Treatment Ended 1740 Dialyzer Cleared Good Blood Processed 0 Net UF removed 1999 Post Treatment Access AVF/AVG: Bleeding Stop Arterial 0 min AVF/AVG: Bleeding Stop Venous 0 min Catheter Locking Solution Heparin 1:1000 Catheter Locking Volume: Arterial 2.2 ml Catheter Locking Volume: Venous 2.3 ml Post Assessment Skin Assessment Dry;Warm Respiratory Assessment Easy Respirations Cardiac Regular Edema General Pain None LOC Alert;Oriented to Person;Oriented to Place;Oriented to Time Ausculation Lung Sounds Location Modifier Bilateral Location Throughout Respiratory Phase Inspiratory;Expiratory Lung Sounds Clear HEMODIALYSIS POST TREATMENT NOTE REPORT GIVEN TO: Timothy Calloway. RN GI ASSESSMENT: Soft, audible bowel sounds. ISSUES REPORTED: Decreased BP * Zoe Calloway RN - 07/27/2025 3:32 PM CDT Problem: Discharge Planning Goal: Knowledge of discharge instructions Outcome: Progressing Problem: Pain control/comfort Goal: Promote pain control/comfort Outcome: Progressing Problem: Skin integrity, at risk Goal: Absence of new skin breakdown Outcome: Progressing Problem: Reduced risk for falls/injury Goal: Reduced Risk for Falls/Injury Outcome: Progressing Goal: Reduced Risk of Confusion (Acute vs Chronic) Outcome: Progressing Goal: Reduced Risk of Symptomatic Depression Outcome: Progressing Goal: Reduced Risk of Altered Elimination Outcome: Progressing Goal: Reduced Risk of Dizziness/Vertigo/Balance Outcome: Progressing Goal: Reduced Risk of Polypharmacy Outcome: Progressing Problem: Infection - Risk of, Central Venous Catheter-Associated Bloodstream Infection Goal: Absence of Central Venous Catheter Associated Bloodstream Infection Signs and Symptoms Outcome: Progressing Problem: Discharge Planning Goal: Knowledge of discharge instructions Outcome: Progressing Problem: Body Temperature - Risk of, Imbalanced Goal: Body temperature within specified parameters Outcome: Progressing Problem: Venous Thromboembolism - Risk of Goal: Absence of venous thromboembolism Outcome: Progressing * Omero Marroquin RN - 07/27/2025 3:00 PM CDT PRE TREATMENT NOTE ISOLATION: Contact, decolonization CODE STATUS: Full HEPATITIS STATUS: Neg/imm LOC ASSESSMENT: A&O X 3 TELE: Yes O2 DEVICE: NC GI ASSESSMENT: Soft, audible bowel sounds. EDEMA: General MEDS GIVEN: None FLUIDS/DRIPS: None PROCEDURES/TESTS: None REPORT RECEIVED FROM: Timothy Garg RN * Eduarda Alejandre MD - 07/27/2025 11:47 AM CDT Zander Adler is a 80-year-old female patient. Reason for Follow Up: ESRD on HD, hyperkalemia Subjective: Mrs. Adler is feeling ok. No new Sx. She still has lots of legs edema No cough, ever, CP, SOB, nausea Current Facility-Administered Medications Medication Dose Route Frequency Provider Last Rate Last Admin acetaminophen (TYLENOL) tablet 650 mg 650 mg Oral Q4H PRN JOSE Mills 650 mg at 07/25/25 1859 Or acetaminophen (TYLENOL) suppository 650 mg 650 mg Rectal Q4H PRN JOSE Mills alteplase injection 2 mg 2 mg Intracatheter Once Eduarda Alejandre MD alteplase injection 2 mg 2 mg Intracatheter Once Eduarda Alejandre MD apixaban (ELIQUIS) tablet 5 mg 5 mg Oral BID Dutch Cotton MD 5 mg at 07/27/25 0844 ARIPiprazole (ABILIFY) tablet 3 mg 3 mg Oral nightly Dutch Cotton MD 3 mg at 07/26/25 2106 B ogxeeag-O-rpsmq acid 0.8 mg (DIALYVITE/NEPHRO-RANDALL) tablet 1 tablet 1 tablet Oral Daily Eduarda Alejandre MD 1 tablet at 07/27/25 0844 busPIRone (BUSPAR) tablet 5 mg 5 mg Oral TID Dutch Cotton MD 5 mg at 07/27/25 0844 ceFEPIme (MAXIPIME) 1 g in sodium chloride 0.9 % 50 mL IVPB 1 g Intravenous Q24H JOSE Mills Stopped at 07/26/25 2214 cetirizine (ZyrTEC) tablet 10 mg 10 mg Oral Daily PRN Maryse Kaplan APRN docusate sodium (COLACE) capsule 200 mg 200 mg Oral nightly Maryse Kaplan APRN epoetin saira-epbx (RETACRIT) injection 10,000 Units 10,000 Units Intravenous Once per day on Tuesday Ritika Morton NP 10,000 Units at 07/26/25 1106 ferrous sulfate EC tablet 324 mg 324 mg Oral Once per day on Tuesday Dutch Cotton MD 324 mg at 07/26/25 1404 furosemide (LASIX) tablet 120 mg 120 mg Oral 2 times per day on Tuesday Eduarda Alejandre MD 120 mg at 07/27/25 0851 HYDROcodone-acetaminophen (NORCO) 5-325 MG tablet 1 tablet 1 tablet Oral Q6H PRN JOSE Mills HYDROmorphone (DILAUDID) injection 0.2 mg 0.2 mg Intravenous Q3H PRN JOSE Mills 0.2 mg at 07/22/25 1502 insulin lispro (HUMALOG/ADMELOG) injection 0-16 Units 0-16 Units Subcutaneous TID AC Dutch Cotton MD 4 Units at 07/27/25 0741 And insulin lispro (HUMALOG/ADMELOG) injection 0-8 Units 0-8 Units Subcutaneous Nightly at bedtime Dutch Cotton MD 4 Units at 07/26/25 2107 ipratropium-albuterol (DUONEB) 0.5-2.5 (3) MG/3ML nebulizer solution 3 mL 3 mL Nebulization Q4H PRNDutch Cotton MD methylphenidate (RITALIN) tablet 10 mg 10 mg Oral BID Dutch Cotton MD 10 mg at 07/27/25 0843 metoprolol tartrate (LOPRESSOR) tablet 12.5 mg 12.5 mg Oral Once Maryse Kaplan APRN metoprolol tartrate (LOPRESSOR) tablet 25 mg 25 mg Oral BID Maryse Kaplan APRN midodrine (PROAMATINE) tablet 10 mg 10 mg Oral 2 times per day on Tuesday Eduarda Alejandre MD 10 mg at 07/26/25 0853 naLOXone (NARCAN) injection 0.4 mg 0.4 mg Intravenous PRN JOSE Mills ondansetron (ZOFRAN) injection 4 mg 4 mg Intravenous Q8H PRN JOSE Mills polyethylene glycol (GLYCOLAX) packet 17 g 17 g Oral Daily PRN JOSE Mills sertraline (ZOLOFT) tablet 50 mg 50 mg Oral Daily Dutch Cotton MD 50 mg at 07/27/25 0844 Tenapanor HCl (CKD) TABS 1 tablet 1 tablet Oral BID Ritika Morton NP 1 tablet at 07/27/25 0844 vancomycin pharmacy to dose placeholder Intravenous See Admin Instructions Ritika Morton NP vitamin B-12 (CYANOCOBALAMIN) tablet 1,000 mcg 1,000 mcg Oral nightly Dutch Cottno MD 1,000 mcg at 07/26/252106 Review of patient's allergies indicates: Allergen Reactions Sulfa Antibiotics Unknown Wellbutrin [Bupropion] Unknown Per [place] documentation Principal Problem: Severe sepsis ([facility]) SNOMED CT(R): SEPSIS Social History Tobacco Use Smoking status: Never Smokeless tobacco: Never Substance Use Topics Alcohol use: No Objective: Filed Vitals: 07/27/25 0412 07/27/25 0810 07/27/25 1111 07/27/25 1130 BP: 113/79 122/86 101/63 Pulse: (!) 119 (!) 130 (!) 104 97 Resp: 22 23 Temp: 99 ??F (37.2 ??C) 97.7 ??F (36.5 ??C) 97.7 ??F (36.5 ??C) TempSrc: Oral Oral Oral SpO2: 96% 91% 93% Weight: 130 kg (286 lb 9.6 oz) Height: Intermittent/Straight Cath (mL): 50 mL Physical Exam: -GENERAL: no apparent distress; on O2 NC -EYES: EOMI -LUNG: coarse breath sounds -CVS: Regular rate rhythm, systolic murmur -ABDOMEN: Soft, nontender -Musculoskeletal / EXT: legs edema up to thighs and hips, left arm AVF with bruit, deep to palpate -NEURO: AAOx3 LABs I reviewed labs Recent Labs Lab 07/22/25 1127 07/23/25 0542 07/24/25 0553 07/25/25 0601 07/26/25 0549 07/27/25 0636 NA 134* 137 137 138 136 137 K 6.1* 4.2 4.2 4.0 4.4 4.2 CL 99 101 101 102 99 103 CO2 25.2 27.1 26.3 27.9 24.5 28.3 AGAP 9.8 8.9 9.7 8.1 12.5* 5.7 BUN 54* 29* 43* 31* 42* 27* CR 5.43* 3.19* 4.29* 3.52* 4.61* 3.27* BUNCREATININ 9.9 9.1 10.0 8.8 9.1 8.3 GLU 144* 66* 129* 125* 137* 161* CA 10.3* 9.9 9.5 10.0 10.0 10.3* MAGNESIUM 2.0 1.9 -- -- -- -- PHOS -- -- 7.4* -- -- -- Recent Labs Lab 07/22/25 1127 07/23/25 0542 07/24/25 0553 07/25/25 0601 07/26/25 0549 07/27/25 0636 WBC 9.33 7.44 7.10 6.04 6.63 5.90 RBC 3.23* 2.90* 2.95* 2.88* 3.26* 3.07* HGB 9.5* 8.4* 8.7* 8.4* 9.6* 9.0* HCT 32.0* 28.4* 29.5* 28.9* 32.3* 30.9* MCV 99.1* 97.9 100.0* 100.3* 99.1* 100.7* MCH 29.4 29.0 29.5 29.2 29.4 29.3 MCHC 29.7* 29.6* 29.5* 29.1* 29.7* 29.1* PLT 277 254 242 244 252 255 RDW 15.8* 15.9* 16.0* 16.2* 16.3* 16.8* MPV 10.0 10.0 10.2 10.2 10.2 9.8 Assessment/Plan: Mrs. Adler a 76 y.o female with hx ESRD on chronic HD MWF, breast cancer, A.fib, Hypertension, DM, hx of seizure, nephrolithiasis, CHF. -patient went to dialysis today but had fever and AMS for which was sent here. She is a [facility]. -recent admission [facility]; treated for UTI / pseudomonas with Abx. -chest imaging showed no PE. It showed opacitiy over the left lung field, small left pleural effusion, cardiomegaly. ---ESRD on chronic HD MWF. Hyperkalemia on admission; s/p lokelma and dialysis on admission with improvement of K. S/p HD Tuesday with 2L UF and yesterday 2L UF. Plan for DUF today since still hypervolemic. On added midodrine for hypotension (increasing dose), and nephrocaps nephrocaps, added lasix on non-HD days ---A.fib with RVR; on metoprolol ---legs edema and pain; doppler US was negative for DVT but limited study ---suspected PMA with fever; on Abx per primary team ---DM; on insulin; management per primary team ---Anemia of CKD. Probably on lonc acting CHELITA as outpatient. added CHELITA with HD . Hg at 9 EDUARDA ALEJANDRE MD 07/27/2025 * Lala Rangel PharmДмитрий - 07/27/2025 9:28 AM CDT Vancomycin Pharmacy to Dose Day #6 (day 4 of consult) Ordering Provider: Anabel Morton Indication: PNA AUC goal: 400 - 600 Ht/Wt: 5'6 / 123.8 kg Individualized trough goal: 15-20 Date WBC SCr CrCl Tmax Level Dose 07/22 9.33 5.43 HD 98.5 2000 mg 07/23 7.44 3.19 HD 99 10/ 7.10 4.29 HD 98.6 16.7 1000 mg 07/25 6.04 3.52 HD 98.1 - 10 6.63 4.61 HD 98.4 21.7 750 mg 07/27 5.90 3.27 HD 99 Other Antibiotics: cefepime Cultures/Tests: MRSA Nasal Swab: Positive Bcx2: NG Urine: 1-9,000 etienne A/P: 80 year old female initiated on vancomycin for the management of Pneumonia. PMH significant for ESRD (MWF). Vancomycin 750 mg x 1 after HD on 07/26. Next vancomycin level will be /6 prior to next HD session to determine further doses. Pharmacy will continue to monitor labs and adjust dose per protocol. * Maryse Kaplan APRN - 07/27/2025 9:03 AM CDT Images from the original note were not included. Hospitalist Daily Progress Note Subjective Ms. Adler is resting in bed on exam. She did have some elevated HR this morning, but getting better.She is able to tell me her name, but does not know where she is or the correct year. Per chart, eryn had some worsening mentation and resides at a SNF. She denies any shortness of breath, chest pain, or cough. Objective Filed Vitals: 07/26/25 1932 07/26/25 2319 07/27/25 0412 07/27/25 0810 BP: 101/46 106/55 113/79 122/86 Pulse: (!) 116 (!) 105 (!) 119 (!) 130 Resp: 18 18 22 20 Temp: 98.2 ??F (36.8 ??C) 98.1 ??F (36.7 ??C) 99 ??F (37.2 ??C) 97.7 ??F (36.5 ??C) TempSrc: Oral Oral Oral Oral SpO2: 98% 95% 96% 91% Weight: 130 kg (286 lb 9.6 oz) Height: Intake/Output 24H Total: Intake/Output Summary (Last 24 hours) at 07/27/2025 0903 Last data filed at 07/26/2025 1250 Gross per 24 hour Intake -- Output 2000 ml Net -2000 ml Physical Exam: -GENERAL: No acute distress, chronically ill appearing -HEAD: Normocephalic, Atraumatic -EYES: Extraocular movements intact -LUNGS: diminished bilaterally, No wheezes, No crackles, No rhonchi; on 1L NC -CVS: irregular rhythm, tachycardic, S1 and S2 normal -ABDOMEN: Soft, Non tender, Non distended -EXT: 1-2+ edema, tender to touch -NEURO: Awake, alert, oriented to self, No gross neuro deficits -SKIN: No significant rashes Medications alteplase 2 mg Intracatheter Once alteplase 2 mg Intracatheter Once apixaban 5 mg Oral BID ARIPiprazole 3 mg Oral nightly B wnmimjh-D-tifnl acid 0.8 mg 1 tablet Oral Daily busPIRone 5 mg Oral TID cefepime 1 g Intravenous Q24H docusate sodium 200 mg Oral nightly epoetin saira-epbx 10,000 Units Intravenous Once per day on Tuesday ferrous sulfate EC 324 mg Oral Once per day on Tuesday furosemide 120 mg Oral 2 times per day on Tuesday insulin lispro 0-16 Units Subcutaneous TID AC And insulin lispro 0-8 Units Subcutaneous Nightly at bedtime methylphenidate 10 mg Oral BID metoprolol tartrate 12.5 mg Oral BID midodrine 10 mg Oral 2 times per day on Tuesday sertraline 50 mg Oral Daily Tenapanor HCl (CKD) 1 tablet Oral BID vancomycin pharmacy to dose Intravenous See Admin Instructions vitamin B-12 1,000 mcg Oral nightly acetaminophen OR acetaminophen, Cetirizine HCl, HYDROcodone-acetaminophen, HYDROmorphone, ipratropium-albuterol, naLOXone, ondansetron, polyethylene glycol Labs, Imaging, Other Studies Recent Labs Lab 07/22/25 1127 07/23/25 0542 07/24/25 0553 07/25/25 0601 07/26/25 0549 07/27/25 0636 WBC 9.33 7.44 7.10 6.04 6.63 5.90 RBC 3.23* 2.90* 2.95* 2.88* 3.26* 3.07* HGB 9.5* 8.4* 8.7* 8.4* 9.6* 9.0* HCT 32.0* 28.4* 29.5* 28.9* 32.3* 30.9* MCV 99.1* 97.9 100.0* 100.3* 99.1* 100.7* MCH 29.4 29.0 29.5 29.2 29.4 29.3 MCHC 29.7* 29.6* 29.5* 29.1* 29.7* 29.1* PLT 277 254 242 244 252 255 RDW 15.8* 15.9* 16.0* 16.2* 16.3* 16.8* MPV 10.0 10.0 10.2 10.2 10.2 9.8 PERNEU 85.2 79.5 75.6 74.5 74.8 76.1 PERLYM 6.9 9.5 12.8 12.9 12.7 11.4 PERMON 6.2 7.0 8.5 9.3 9.2 9.8 NEUC 7.95* 5.91 5.37 4.50 4.96 4.49 LYMC 0.64* 0.71* 0.91* 0.78* 0.84* 0.67* MONOC 0.58 0.52 0.60 0.56 0.61 0.58 EOSC 0.05 0.22 0.17 0.14 0.16 0.10 BASOC 0.04 0.04 0.02 0.02 0.02 0.03 DTYPE AUTOMATED DIFFERENTIAL AUTOMATED DIFFERENTIAL AUTOMATED DIFFERENTIAL AUTOMATED DIFFERENTIAL AUTOMATED DIFFERENTIAL AUTOMATED DIFFERENTIAL Recent Labs Lab 07/22/25 1127 07/23/25 0542 07/24/25 0553 07/25/25 0601 07/26/25 0549 07/27/25 0636 NA 134* 137 137 138 136 137 K 6.1* 4.2 4.2 4.0 4.4 4.2 CL 99 101 101 102 99 103 CO2 25.2 27.1 26.3 27.9 24.5 28.3 AGAP 9.8 8.9 9.7 8.1 12.5* 5.7 BUN 54* 29* 43* 31* 42* 27* CR 5.43* 3.19* 4.29* 3.52* 4.61* 3.27* BUNCREATININ 9.9 9.1 10.0 8.8 9.1 8.3 GLU 144* 66* 129* 125* 137* 161* CA 10.3* 9.9 9.5 10.0 10.0 10.3* TP 6.9 6.0* 6.3* 6.2* 7.1 6.6 ALB 2.4* 2.1* 2.2* 2.2* 2.4* 2.3* TBIL 0.7 0.8 0.9 0.6 0.6 0.9 ALKP 251* 219* 230* 203* 223* 204* AST 130* 269* 139* 122* 85* 40* ALT 69* 167* 143* 136* 133* 94* Recent Labs Lab 07/23/25 0542 HGBA1C 7.4* TSH 2.910 No results for input(s): APTT, INR, PTT in the last 168 hours. Recent Labs Lab 07/22/25 1127 07/22/25 1338 TROP 62* 56* Recent Labs Lab 07/22/25 1137 07/22/25 1338 07/22/25 1633 07/23/25 0542 07/24/25 0553 07/25/25 0601 07/26/25 0549 LACTICACID 3.4* 2.8* 2.0 -- -- -- -- PROCT -- -- -- < > 0.88* 0.95* 0.69* < > = values in this interval not displayed. No results for input(s): PH, PCO2, PO2, A6EWBWBVBSOA, BICARBWB, BASEDEFICIT, BASEEXCESS in the last 168 hours. No results found. However, due to the size of the patient record, not all encounters were searched.Please check Results Review for a complete set of results. Imaging CT HEAD WO CON Result Date: 07/26/2025 [facility] [address] [place], [place] [address] CT HEADWITHOUT CONTRAST Exam date: 07/26/2025 1:45 PM Clinical history: Altered mental status Technique: 3 mm collimated axial images of the head were obtained without contrast. A dose lowering technique wasused for this procedure, which may include, but is not limited to, dose reduction technique, automated exposure control, the use of iterative reconstruction, and ALARA (As Low As Reasonably Achievable) / Image Gently techniques. Comparison: July 22, 2025 FINDINGS: Images of the head demonstrate no evidence of acute or chronic intracranial hemorrhage. No masses or mass effects are seen. The ve ntricles and sulci are symmetric. There is no evidence of midline shift. There is normal linda-whitedifferentiation throughout. No extra-axial fluid collections are evident. Bone windows reveal the paranasal sinuses and mastoid air cells to appear clear. There is no evidence of fracture. IMPRESSION: Stable head CT. No acute findings Ordered By: RITIKA MORTON Interpreted By: Harry Milton MD, 07/26/2025 1:45 PM USV ART REST W BURAK LOW EXT Result Date: 07/26/2025 ARTERIAL DOPPLER - BURAK BILATERAL LOWER EXTREMITY VASCULAR LAB Pat.Name: ZANDER ADLER Pat.ID: [id number] .Date: 07/24/2025 Exam Time: 3:07:00 PM Study Type:SHANON VS Arterial Doppler Legs JONATAN Height: 66 in Age: 9 1945,80Y Sex: F Sonogrphr: Best Eddy RDMS, RVT History / Clinical:BLE edema Procedures: Doppler waveforms, Digit PPG, Systolic Pressures w/BURAK Race: W ++++++++++++++++++++++++++++++++++++ SUMMARY: ++++++++++++++++++++++++++++++++++++ Andrés BURAK Criteria: >1.30 = falsely elevated, calcified vessels; 1.00-1.29 = no signif ischemia at rest ; .80-.99 = mild PAD, asymptomatic; .50-.79 = moderate PAD, claudication; <.50 = severe PAD, rest pain; <.30 = critical PAD, necrosis, poor healing (Digits: DBI >.60 Normal; <.60 Abnormal) (Positive Stress eval: BURAK decrease of >.20 or >20% pressure drop) Right leg: Common Femoral waveform is biphasic, low amplitude; Popliteal biphasic, low amplitude; Posterior Tibial biphasic, low amplitude with BURAK 0 ; DP/Anterior Tibial biphasic, low amplitude with BURAK 0 . Digit flow by PPG is not recorded with DBI . Left leg: Common Femoral waveform is biphasic, low amplitude; Popliteal biphasic, low amplitude; Posterior Tibial biphasic, low amplitude with BURAK 0 ; DP/Anterior Tibial biphasic, low amplitude with BURAK 0 . Digit flow by PPG is not recorded with DBI . Extremely limited non-diagnostic exam due to patientscompliance and leg pain. CONCLUSION: 1. BURAK right leg were not obtained due to non-compressible vessels. The toe index was not obtained due to patient compliance. Dampened biphasic waveforms seen at each level. 2. BURAK left leg were not obtained due to non-compressible vessels. The toe index was notobtained due to patient compliance. Dampened biphasic waveforms seen at each level. 3. Extremely limited non-diagnostic exam due to patients compliance and leg pain. ++++++++++++++++++++++++++++++++++++ MEASUREMENTS: ++++++++++++++++++++++++++++++++++++ PRESSURES Right Brachial Brach P 136 mmHg Right Ankle DP AnkleDP P 0 mmHg Right Ankle PT AnklePT P 0 mmHg Right BURAK PT BURAK PT 0 Right BURAK DP ABIDP 0 Left Ankle DP AnkleDP P 0 mmHg Left Ankle PT AnklePT P 0 mmHg Left BURAK PT BURAK PT 0 Left BURAK DPABI DP 0 <Electronic Signature> 07/26/2025 07:39 AM Nikhil Andrews M.D. XR FOOT RT 2V Result Date: 07/24/[address] [address] Examination: XR FOOT RT 2V Exam time: 07/23/2025 5:35 PM Clinical history: Right great toe pain. Comparison:None. Technique: AP and lateral views of the right foot obtained portably. Findings: The bones are diffusely demineralized. Soft tissue swelling overlies the medial aspect of the hindfoot. Mild osteoarthritis affects the first metatarsophalangeal joint. There is mild scattered interphalangeal joint osteoarthritis. Mild to moderate osteoarthritis affects the midfoot. Plantar and posterior calcaneal enthesophytes are noted. No radiographic evidence is seen to suggest acute fracture or malalignment of the bones of the right foot. There are atherosclerotic calcifications. Amorphous calcifications posterior and anterior to the lower leg are nonspecific but could be related to prior injury. There are hammertoe deformities of the lesser toes. IMPRESSION: 1. Diffusely demineralized bones without evidence to suggest acute fracture or malalignment of the bones of the right foot. 2. Osteoarthritis as above. 3. Soft tissue swelling overlying the medial aspect of the hindfoot. Referred By: Interpreted By: Jac Lara DO, 07/24/2025 2:12 AM USV CLINT DUPLEX LOW EXT JONATAN Result Date: 07/23/2025 VENOUS DUPLEX IMAGING BILATERAL LOWER EXTREMITY VASCULAR LAB Pat.Name: ZANDER ADLER Pat.ID: [id number] .Date: 07/22/2025 Refer.MD: [id number], Live cmip Exam Time: 3:33:00 PM Study Type:SHANON VS Venous Duplex Legs JONATAN Height: 67 in Age: 9 1945,80Y Sex: F Sonogrphr: Best Eddy, RDMS, RVT History / Clinical:BLE edema Procedures: Linda scale, Color Doppler imaging, Doppler Spectral Analysis Race: W ++++++++++++++++++++++++++++++++++++ SUMMARY: ++++++++++++++++++++++++++++++++++++ Right leg: There are NO apparent, deep or superficial vein, ACUTE character venous filling defects visualized in the common femoral, proximal deep femoral, femoral, popliteal, gastrocnemius, posterior tibial, peroneal, great saphenousveins. Resting venous flow is phasic and significantly pulsatile. Left leg: There are NO apparent, deep or superficial vein, ACUTE character venous filling defects visualized in the common femoral, proximal deep femoral, femoral, popliteal, gastrocnemius, posterior tibial, peroneal, great saphenousveins. Resting venous flow is phasic and significantly pulsatile. Limited exam bilaterally due to patients condition, lower extremity swelling, and patients pain tolerance with compression. CONCLUSION: Limited exam bilaterally due to patients condition, lower extremity swelling, and patients pain tolerance with compression. No evidence of acute DVT or SVT seen in the bilateral lower extrmities. Pulsatile venous flows are suggestive of central venous hypertension (CHF, pulmonary HTN, right heart failure), though this may be a normal finding in a young, healthy patient. <Electronic Signature> 07/23/2025 09:59 PM iNkhil Andrews M.D. USE ECHOCARDIOGRAM W CON Result Date: 07/23/2025 Echocardiography Report Pat.Name: ZANDER ADLER Pat.ID: [id number] .Date: 07/23/2025 Exam Time: 1:08:00 PM Study Type:ECHO WITH CARDIAC DOPPLER COMP Height: 66 in Weight: 270 lb BSA: 2.27 m2 Age: 9 1945,80Y Sex: F BP: 109/52 HR: 107 bpm Sonogrphr: Whitney Velazquez [facility] Pat. Stat.:Inpatient Room: 441 Reason for Study:Congestive heart failure History / Clinical:BLE edema Procedures: 2D, M-mode, Doppler, Color Flow, Definity was used to enhance endocardial definition. The study quality istechnically difficult. Race: W ++++++++++++++++++++++++++++++++++++ SUMMARY: +++++++++++++++++++++++ +++++++++++++ Left ventricle is normal in size with low normal systolic function Estimated EF of 50-55% Moderate LVH Right ventricle is enlarged with low normal systolic function Moderate to severe aortic stenosis Mild to moderate mitral and pulmonic regurgitation Moderate tricuspid regurgitation Moderate pulmonary hypertension. Mildly dilated ascending aorta. ++++++++++++++++++++++++++++++++++++FINDINGS: ++++++++++++++++++++++++++++++++++++ LV: The left ventricular size is normal. The left ventricular systolic function is lower limits of normal. Estimated left ventricular ejection fraction is 50-55%. Moderate concentric left ventricular hypertrophy. Left ventricular diastolic function is not reliably assessed. WM: Wall motion appears normal in all segments. RV: The right ventricular size is mild to moderately enlarged. Right ventricular systolic function is at the lower limit of normal. IVS: No evidence of ventricular septal defect. LA: The left atrial volume is severely increased (>48 ml/M2). RA: Right atrial size is mildly enlarged. IAS: Atrial septum appears intact. WILNER: Noevidence of pericardial effusion. AO: The sinus of Valsalva measures 3.9cm. The proximal ascending aorta measures 4.1cm. PA: Estimated right atrial pressure of 8 mmHg. SVn: Inferior vena cava is notdilated. Inferior vena cava shows <50% collapse with respiration consistent with elevated right atrial pressure. AV: The aortic valve is trileaflet. Moderate to severe aortic valve stenosis. The peak velocity across the aortic valve measures 4.19m/sec with a peak gradient of 70mmHg and a mean gradient of 40mmHg. The calculated aortic valve area is 0.9cm2. No evidence of aortic valve regurgitation. Moderate to severe calcification of aortic valve leaflets. MV: Mild to moderate mitral regurgitation. No evidence of mitral stenosis. Moderate thickening of mitral valve leaflets. PV: No evidence of pulmonic valve stenosis. Mild to moderate pulmonic regurgitation. TV: Moderate tricuspid regurgitation. Right ventricular systolic pressure is 50-60 mmHg suggestive of moderate pulmonary hypertension. No evidence of tricuspid valve stenosis. ++++++++++++++++++++++++++++++++++++ MEASUREMENTS: +++ +++++++++++++++++++++++++++++++++ DOPPLER LVOT LVOTpkPG 6 mmHg LVOTmnPG 3 mmHg LVOTpkVel 127 cm/s (70-110)+* LVOT SV 69 ml LVOT TVI 22 cm Right Atrium RA Press 8 mmHg Rasmussen's Disk 20 AV Forward Flow AV TVI 75 cm AV pkPG 61 mmHg AV pkVel 392 cm/s (100-170)+* Area (TVI) 0.92 cm2 (3-5)* AV mnPG 36 mmHg Area (Lee) 1.02 cm2 (3-5)* MV Forward Flow MV DeTm 194 msec MV P1/2t 57 msec (30-60)+ MVA P1/2t 3.86 cm2 (4-6)* MV pkE 155 cm/s (60-130)+* PV Forward Flow PV pkVel 107 cm/s (60-90)+* PV AC 89 msec PV pkPG 5 mmHg TV Regurg Flow TV pkPG 50 mmHg TV pkVel 354 cm/s (30-70)* Right Ventricle RVsys P 58 mmHg Right Ventricle 10.9 cm/s Lat E' Lat e 13.5 cm/s Lat E/E' Lat E/e 11.5 Med E' Med e 8.44 cm/s Med E/E' Med E/e 18.4 Aortic Valve Aortic Valve Ar 0.41 Aortic Valve Ve 0.32 AV DI Value 0.29 LeftVentricle LV IVRT 33 msec PV Antegrade Flow Acceleration Sl 1030 cm/s2 2D Left Ventricle LVIDd 5.13cm (3.6-5.2) LV ESV 23.2 ml LVIDs 3.87 cm (2.3-3.9) LV ESV 53.7 ml LngAxd 7.61 cm LVESV BP 35.2 ml LngAxd 7.93 cm LV EF 57.4 % LV EDV 54.5 ml LV EF 53.3 % LV EDV 115 ml LV EF BP 56.4 % LVEDV BP 80.7ml LV SV 31.3 ml LngAxs 6.53 cm LV SV 61.3 ml LngAxs 6.64 cm LV SV BP 45.5 ml LVPW LVPWd 1.38 cm Ventricular Septum IVSd 1.39 cm Left Atrium LA VOLBP 179 ml Aorta Ao Rtd 3.9 cm Ao Asc 4.1 cm (2.1-3.4)* LVOT LVOT 2 cm LVOTArea 3.14 cm2 Ratios IVS Inferior vena cava IVC Diam 17.9 mm LA Biplane LAVol I BP 78.9 ml/m2 RA Single Plane Right Atrium MO 17.7 mm Right Atrium Sy 71.1 ml Right Atrium Sy 61.4 mm Right Atrium Sy 31.3 ml/m2 Right Atrium Sy 22.6 cm2 Right Ventricle Right Ventricle 45.6 mm Right Ventricle 38.3 mm Major Point [place] 68.2 mm MMODE TA Tricuspid Annul 15.2 mm <Electronic Signature> 07/23/2025 03:59 PM Real Hodges M.D. 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 PULMONARY EMBOLUS PROTOCOL CLINICAL INDICATION: 80-year-old female. Reason for examination: Nodule in the right upper lobe. Possible atypical pneumonia, atrial fibrillation look for pulmonary embolus. Abnormal chest x-ray . TECHNIQUE: CT acquisition was performed according to the standard protocol from the aortic arch to the upper abdomen during the pulmonary enhancement phase of an intravenous contrast bolus of 80 cc of Isovue 370. Intravenous contrast injected into indwelling access in the right antecubital fossa. No adverse contrast reaction reported. Additional coronal 3-D reconstructions and postprocessing volume rendered MIP vascular images of the pulmonary arteries was performed. Dose lowering technique was used for this study which may include, but is not limited to, dose reduction techniques, automated exposure control, use of iterative reconstruction and ALARA (As low As Reasonably Achievable)/Image Gently techniques. COMPARISON: Portable AP view of the chest07/22/2025 and 01/11/2024 CT of the chest without contrast 07/18/2016 and 07/11/2016 Thyroid ultrasound07/14/2016 CT cervical spine without contrast 04/12/2022 Nuclear medicine VQ scan 07/11/2016 FINDINGS:The study was technically adequate to the lobar level only. No intraluminal filling defects, wall th ickening, or thrombus is present in the pulmonary arterial vascular tree to the lobar level suggestpulmonary embolus . A segmental or subsegmental pulmonary embolus would not be seen on this study due to respiratory motion and a small, renal preserving bolus. Lower neck/chest soft tissues: The partially calcified lesion in the right upper chest right lower neck supraclavicular region is redemonstrated and is seen to be large calcified right thyroid nodule, stable evaluated and noted since 2016. Most recently nearly identical appearance on CT of the cervical spine. Today this measures 4.1 x 2.7 x 3.8 cm similar to that documented on the thyroid ultrasound of 2016. Additional calcified and no ncalcified nodules in the enlarged left and right lobe of the thyroid in keeping with the given diagnosis of previous imaging of multinodular goiter. There are scattered calcifications throughout theleft and right breast tissues. Might consider referral to breast imaging Center for further evaluation Numerous spiderlike opacified ectatic superficial right breast wall and right subclavian and axillary vein varicosities may be sequela of right upper extremity AV fistula. Lungs/pleura: There is asmall left pleural effusion and overlying larger area of dense consolidation and atelectasis suspect for infectious inflammatory consolidative pneumonia involving the lingula and the left lower lobe.Left upper lobe clear and the right lung is clear. There is subtle dependent interlobular septal thickening hazy posterior groundglass opacity which could represent mild pulmonary edema or reflectiveof fluid/volume overload. Heart/great vessels/aorta: Stable measured ectasia ascending aorta maximal diameter 40 mm unchanged since 2016. Normal caliber aortic arch descending aorta and suprarenal aorta. Widespread calcific atherosclerosis of the aorta and heavy plaque at the ostia the celiac trunkand SMA and right and left renal arteries has increased since 2016. Since December 2023 the patient has received of right IJ hemodialysis catheter and the tips are in good position at the right atrial SVC junction. Mild cardiomegaly due to four-chamber enlargement. Aortic valve and coronary artery calcifications. Small, 8mm probably physiologic pericardial effusion. Mild hepatic venous reflux probably chronically elevated right heart pressures or fluid/volume overload. Mediastinum/itzel: There is no mediastinal or hilar or axillary lymphadenopathy. Esophagus unremarkable. No evidence of thoracic aortic dissection. Upper abdomen: Scattered granulomata throughout the liver and spleen mild diffuse hepatic steatosis. Status post cholecystectomy. Tiny bilateral atrophic kidneys. Calcified enlargedright adrenal gland, likely calcified adenoma unchanged since 2016. Small hypodense left adrenal gland nodule also unchanged since 2016, probably stable adenoma. Bone window imaging: No acute or pathologic bony abnormality. Widespread diminished bone density exaggeration thoracic kyphosis long segment anterior longitudinal ligament calcification may be DISH.. IMPRESSION: 1. No CT evidence of pulmonary embolus to the lobar level as above 2. Large area of consolidative opacity left lower lobe probably infectious inflammatory consolidative pneumonia. 3. Small, probably associated left pleural effusion 4. Mild findings suggestive of dependent pulmonary edema or could be fluid/volume overload 5. The calcified lesion in the right upper lung is seen to be calcified thyroid nodule. Additional stable findings of multinodular goiter. 6. Cardiomegaly with small possibly physiologic pericardial effusion. 7. Stable large calcified right adrenal adenoma and small left adrenal adenoma 8. Scattered calcifications more numerous in the left than the right breast;might consider referral to breast imaging Center for further evaluation 9. Right upper extremity opacified ectatic venous varicosities from the subclavian and axillary veins may be related to prior right upper extremity AV fistula. This should be confirmed in the medical record. Referred By: Interpreted By: Deborah Sexton DO, 07/22/2025 3:[address] HEAD WO CON Result Date: 07/22/[address] [address] EXAM: CT HEAD WO CON DATE: 07/22/2025 12:27 PM INDICATION: Altered mental status. TECHNIQUE: Transverse images through the head were obtained without intravenous contrast. A radiation dose lowering technique was used for this procedure, which may include, but is not limited to, dose reduction technique, automated exposure control, the use of iterative reconstruction, ALARA (As Low As Reasonably Achievable) techniques, and Image Gently techniques. COMPARISON: CT head 01/07/2024 FINDINGS: Motion degraded examination despite repeated imaging, limiting the sensitivity of this exam. There is no evidence of acute intracranial hemorrhage. No evidence of abnormal intra or extra axial fluid collections. The ventricles in extra-axial spaces are mildly prominent compatible with global volume loss and similar to prior. No evidence of mass, mass effect, or midline shift. Diffuse low-density within the white matter again consistent with chronic microangiopathy, similar to prior. No definite CT findings of acute territorial infarction, within limitations of motion. No calvarial fracture is seen. Diffuse permeative appearance of the calvarium. Diffuse opacification of the left maxillary sinus. Bilateral mastoid air cell effusion. The globes and orbits are symmetric and grossly unremarkable. IMPRESSION: 1. Motion degraded examination despite repeated imaging, limiting the sensitivity of this exam. 2. No definite CT findings of acute territorial infarction, within limitations of motion. 3. Senescent changes of global volume loss and chronic microangiopathy. 4. Diffuse permeative appearance of the calvarium. This is nonspecific but given the history of ESRD with hemodialysis this likely is secondary to renal osteodystrophy. 5. Diffuse opacification of the left maxillary sinus. Bilateral mastoid air cell effusion. Ordered By: HEATHER GUEVARA Interpreted By: Irvin Hernandez MD, 07/22/2025 12:52 PM XR CHEST PORTABLE Result Date: 07/22/2025 [facility] [address] [place], [place] [address] IMAGINGSTUDIES: XR CHEST PORTABLE DATE: 07/22/2025 11:40 AM HISTORY: new o2 requirement 72-year-old female.Altered mental status during dialysis. Reported temperature of 100.3 prior to dialysis treatment 1 (did not receive dialysis today). Patient's daughter reports the patient was released from [facility] on 07/01/2025 after treatment for urinary tract infection. COMPARISON: Chest portable 01/11/2024 and 01/07/2024. DISCUSSION: Portable AP upright view of the chest. Rightward rotated. 2.8 x 2.6 cmpartially calcified lesion projecting in the right upper chest and right lower neck/supraclavicular region which is not evident on the prior studies. Differential diagnosis would primarily include calcified enlarged lymph node or potential progression of vascular calcification. Right chest tunneleddialysis catheter with tip in the inferior right atrium is new since 01/11/2024. Stable cardiomegaly. No acute pulmonary vascular congestion. Aortic atherosclerotic calcifications. Low lung volumes but similar to prior studies. Chronic bilateral lung parenchymal scarring and pleural scarring. No appreciable significant pulmonary infiltrate or consolidation. No apparent pleural effusion or pneumothorax. Degenerative changes spine and shoulders. IMPRESSION: 1. Cardiomegaly. No acute pulmonary vascular congestion. Tunneled right chest dialysis catheter is new since 01/11/2024. 2. No apparent new pulmonary infiltrate or consolidation. 3. Partially calcified 2.8 cm lesion projecting in the right upper chest to right lower neck is not evident on 2023 radiographs. Could be further evaluated on nonemergent elective CT if clinically indicated. Ordered By: HEATHER GUEVARA Interpreted By: Aron Aguilar, 07/22/2025 12:08 PM EKG: Results for orders placed or performed during the hospital encounter of 07/22/25 ECG [address] 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 : 1945 Requested By: HEATHER GUEVARA Order Number: [id number] Reading MD: German Stevens Measurements Intervals [place] Rate: 137 P: 0 UT: 0 QRS: -18 QRSD: 111 T: 68 QT: 295 QTc: 446 Interpretive Statements ATRIAL FIBRILLATION WITH RAPID VENTRICULAR RESPONSE POSSIBLE LATERAL MYOCARDIAL INFARCTION , OF INDETERMINATE AGE [30 ms Q WAVE IN I/aVL/V5/V6] Compared to ECG 07/17/2024 13:56:11 No significant changes Assessment & Plan Sepsis due to suspected HAP pneumonia pt admitted recently at [place] lives in SNF and does HD Presented fever, chills with cough/URI s/s for about 1 week Lactate 3.4, trend Source: suspected HAP CXR showed new RUL lesions, considering atypicals Legionella negative UA 500 LE, negative nitrites, > 100 WBC, RBCs Blood cultures (07/22) NGTD2 Urine culture shows 1k-9k col/ml etienne albicans Received 500 IV fluid bolus, continue cautions IV fluids goal 30 mg/kg but limited due to dialysis IV antibiotics vancomycin and cefepime, monitor for toxicity MRSA swab positive Consider aspiration. 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 The pt does not exhibit any overt coughing or throat clearing; No immediate concern foracute dysphagia. CT chest LLL opacity concerning for consolidative PNA, small L pleural effusion PCT trended, though unreliable given ESRD Acute hypoxic respiratory failure With tachypnea 2/2 PNA Supported on O2 at 2 L with sats in the mid 90s. Without oxygen she dropped as low as the 80s Wean O2 as able, maintain O2 saturations > 90% IS/Acapella Currently on RA-1L NC, RN to wean as able Acute metabolic encephalopathy Noted to have confusion after HD today which nursing staff reports is new Per Care Everywhere, has had slowly worsening memory loss since 2020; follows with [facility] Was on donepezil but stopped as thought to be contributing to depression Check stat head CT, ammonia, B12, TSH-->negative Check BG -- 125 Treatment as above Neuro checks Consider neurology consult/MRI brain if no improvement BLE edema / pain Pt has extreme swelling to BLE with hardening to the soft tissues noted by her daughter Ongoing and worsening for a couple weeks. VDUS BLE negative for DVT/SVT Check ABIs -- couldn't tolerate so no readings obtained Consider additional diuresis during dialysis Pain likely 2/2 HD; continue supportive care Check iron studies, ferritin-->ferritin elevated, but iron improved from previous. Hyperkalemia requiring monitoring and treatment: Resolved 6.1. Given Lokelma but patient not taking POs well. Monitor closely Improved, continue to manage with HD K 4.2 NIDDM2 Accucheks/SSI Monitor Will start low dose Lantus tomorrow morning. 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 Afib with RVR History of A-fib but RVR most likely due to severe sepsis. Patient was given 1 1 bolus of 500. ESRDlimiting fluid resuscitation Pressures remained stable Anticoagulated with Eliquis Rate control with BB Cardiology consulted, appreciate assistance -- Would not aggressively treat right now, given HRs seem to be in general < 120. Can consider adding amio or dilt, if needed, if HRs remain above 100 prior to discharge. Cardiology considering amio oral loading for rate control Per cards, will hold off on amio load given elevated LFTs and HR generally <120 BB was lowered on admission. Will increase back to home dose. Sinusitis Noted on CT Incidental breast calcifications Seen on CT: Scattered calcifications more numerous in the left than the right breast; might consider referral to breast imaging center for further evaluation Will need PCP follow up if not already addressed for further testing/imaging Left arm Sutures were removed prior to d/c Called and updated daughter, Shima, via phone. Dispo: pending clinical improvement, O2 wean, nephrology/cards recs, back to SNF when ready MARYSE KAPLAN APRN Cosigned by Estevan Ramirez MD at 07/28/2025 7:03 AM CDT * Mae Smyth PA-C - 07/27/2025 7:06 AM CDT CARDIOLOGY PROGRESS NOTE INTERVAL HISTORY HR overall improved on telemetry review, tabular trend. Appears comfortable. Has no complaints. DATA REVIEWED: TELEMETRY: AFIB, ventricular rates 90s ASSESSMENT: Moderate to severe aortic stenosis. Not clear symptomatic. Would repeat echo in 6-12 months. Persistent atrial fib. Currently with rapid ventricular rates. Would not aggressively treat right now, monitor. Could consider oral amio loading, however LFTs elevated. They are treneing down. On midodrine for low BP on HD days. Continue beta cecil, increase to 25 mg twice daily. On Eliquis for an ticoagulation. Transaminitis, trending down. Per others ESRD, hemo per nephro. Cr trending down. PNA, per others. Procal down. On room air. No white count. Per others. Chronic anemia. H/h stable. AMS. Head CT with no acute findings. Per others. PLAN: Continue to wean supplemental oxygen as tolerated Metoprolol tar 25 mg BID Lasix dosing per nephro Patient Active Problem List Diagnosis Date Noted Severe sepsis ([facility]) 07/23/2025 Severe sepsis due to Streptococcus pneumoniae with acute organ dysfunction ([facility]) 07/22/2025 Dependence on renal dialysis 01/24/2025 [facility] (current) use of anticoagulants 01/24/2025 Other thrombophilia ([facility]) 08/24/2024 Anemia in chronic kidney disease 08/23/2024 Hyperparathyroidism due to renal insufficiency ([facility]) 08/23/2024 Hypertensive kidney disease, stage V ([facility]) 08/23/2024 Immunologic deficiency syndrome ([facility]) 08/23/2024 Mild cognitive impairment 08/14/2024 ESRD (end stage renal disease) on dialysis ([facility]) 06/19/2024 Hypertensive urgency 01/13/2024 RICKIE (acute kidney injury) 09/12/2022 CKD (chronic kidney disease), stage IV ([facility]) 09/09/2022 Diabetes ([facility]) 09/09/2022 Jyjzi-eh-koofhsg kidney injury 09/09/2022 Acute exacerbation of CHF (congestive heart failure) ([facility]) 05/18/2022 Complicated UTI (urinary tract infection) 04/13/2022 UTI (urinary tract infection) 04/12/2022 Mixed hyperlipidemia 11/03/2021 Pulmonary hypertension, unspecified ([facility]) 11/03/2021 Abnormal gait 06/18/2021 Acute respiratory failure with hypoxemia ([facility]) 06/18/2021 Asthenia 06/18/2021 Atherosclerosis of coronary artery without angina pectoris 06/18/2021 Heart failure ([facility]) 06/18/2021 Cognitive communication disorder 06/18/2021 Incoordination 06/18/2021 Malignant neoplasm of breast ([facility]) 06/18/2021 Dyslipidemia 04/03/2018 Nonrheumatic aortic valve insufficiency 08/09/2016 A-fib ([facility]) Hypertension, essential Heart attack ([facility]) Chronic diastolic heart failure ([facility]) 07/16/2016 Past Medical History[1] CURRENT HOSPITAL ADMINISTERED MEDICATIONS alteplase 2 mg Intracatheter Once alteplase 2 mg Intracatheter Once apixaban 5 mg Oral BID ARIPiprazole 3 mg Oral nightly B cxxoiri-K-fhydg acid 0.8 mg 1 tablet Oral Daily busPIRone 5 mg Oral TID cefepime 1 g Intravenous Q24H epoetin saira-epbx 10,000 Units Intravenous Once per day on Tuesday ferrous sulfate EC 324 mg Oral Once per day on Tuesday furosemide 120 mg Oral 2 times per day on Tuesday insulin lispro 0-16 Units Subcutaneous TID AC And insulin lispro 0-8 Units Subcutaneous Nightly at bedtime methylphenidate 10 mg Oral BID metoprolol tartrate 12.5 mg Oral BID midodrine 10 mg Oral 2 times per day on Tuesday sertraline 50 mg Oral Daily Tenapanor HCl (CKD) 1 tablet Oral BID vancomycin pharmacy to dose Intravenous See Admin Instructions vitamin B-12 1,000 mcg Oral nightly Allergies Allergen Reactions Sulfa Antibiotics Unknown Wellbutrin [Bupropion] Unknown Per MD documentation Filed Vitals: 07/26/25 1530 07/26/25 1932 07/26/25 2319 07/27/25 0412 BP: 111/74 101/46 106/55 113/79 Pulse: (!) 108 (!) 116 (!) 105 (!) 119 Resp: 17 18 18 22 Temp: 98.6 ??F (37 ??C) 98.2 ??F (36.8 ??C) 98.1 ??F (36.7 ??C) 99 ??F (37.2 ??C) TempSrc: Oral Oral Oral Oral SpO2: 100% 98% 95% 96% Weight: 130 kg (286 lb 9.6 oz) Height: Last 5 Recorded Weights 07/23/25 0425 07/24/25 0407 07/24/25 2340 07/26/25 0354 Weight: 122.8 kg (270 lb 11.6 oz) 123.8 kg (272 lb 14.9 oz) 119.3 kg (263 lb 0.1 oz) 125.2 kg (276 lb 0.3 oz) 07/27/25 0412 Weight: 130 kg (286 lb 9.6 oz) Intake/Output Summary (Last 24 hours) at 07/27/2025 0706 Last data filed at 07/26/2025 1250 Gross per 24 hour Intake -- Output 2000 ml Net -2000 ml Physical Exam Vitals and nursing note reviewed. Constitutional: Appearance: Normal appearance. She is obese. HENT: Head: Normocephalic and atraumatic. Right Ear: External ear normal. Left Ear: External ear normal. Nose: Nose normal. Mouth/Throat: Mouth: Mucous membranes are moist. Eyes: Pupils: Pupils are equal, round, and reactive to light. Cardiovascular: Rate and Rhythm: Tachycardia present. Rhythm irregularly irregular. Pulmonary: Effort: Pulmonary effort is normal. No respiratory distress. Breath sounds: No wheezing. Abdominal: Palpations: Abdomen is soft. Musculoskeletal: Right lower leg: Edema present. Left lower leg: Edema present. Skin: General: Skin is warm. Capillary Refill: Capillary refill takes less than 2 seconds. Coloration: Skin is pale. Neurological: General: No focal deficit present. Mental Status: She is alert and oriented to person, place, and time. Psychiatric: Mood and Affect: Mood normal. LABORATORY DATA Recent Labs Lab 07/25/25 0607/26/25 0549 07/27/25 0636 WBC 6.04 6.63 5.90 RBC 2.88* 3.26* 3.07* HGB 8.4* 9.6* 9.0* HCT 28.9* 32.3* 30.9* MCV 100.3* 99.1* 100.7* MCH 29.2 29.4 29.3 MCHC 29.1* 29.7* 29.1* PLT 244 252 255 Recent Labs Lab 07/24/25 0553 07/25/25 0601 07/26/25 0549 NA 137 138 136 K 4.2 4.0 4.4 CL 101 102 99 CO2 26.3 27.9 24.5 BUN 43* 31* 42* CR 4.29* 3.52* 4.61* GLU 129* 125* 137* BUNCREATININ 10.0 8.8 9.1 estimated creatinine clearance is 13.9 mL/min (A) (by C-G formula based on SCr of 4.61 mg/dL (H)). Recent Labs Lab 07/22/25 1127 07/23/25 0542 07/24/25 0553 07/25/25 0601 07/26/25 0549 MAGNESIUM 2.0 1.9 -- -- -- PHOS -- -- 7.4* -- -- CA 10.3* 9.9 9.5 10.0 10.0 Recent Labs Lab 07/24/25 0553 07/25/25 0601 07/26/25 0549 TP 6.3* 6.2* 7.1 ALB 2.2* 2.2* 2.4* TBIL 0.9 0.6 0.6 ALKP 230* 203* 223* AST 139* 122* 85* ALT 143* 136* 133* No results for input(s): APTT, INR, PTT in the last 168 hours. Lab Results Component Value Date CHOL 130 05/19/2022 TRI 108 05/19/2022 HDL 46 05/19/2022 LDL 62 05/19/2022 HGBA1C 7.4 (H) 07/23/2025 TSH 2.910 07/23/2025 Recent Labs Lab 07/22/25 1127 07/22/25 1338 TROP 62* 56* MAE SMYTH PA-C , 07/27/2025 7:06 AM [1] Past Medical History: Diagnosis Date A-fib ([facility]) Acute embolism and thrombosis of unspecified deep veins of unspecified lower extremity ([facility]) Acute respiratory failure ([facility]) Anemia, unspecified Anxiety disorder, unspecified Breast cancer ([facility]) 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[facility]) CHF (congestive heart failure) ([facility]) CKD (chronic kidney disease), stage IV ([facility]) on dialysis Depression Diabetes ([facility]) Dysphagia Encephalopathy ESBL (extended spectrum beta-lactamase) producing bacteria infection Hearing loss Heart attack ([facility]) HLD (hyperlipidemia) Hypertension, essential Hypertensive urgency Insomnia Kidney stone MRSA (methicillin resistant Staphylococcus aureus) Nonrheumatic aortic (valve) insufficiency Osteoporosis PONV (postoperative nausea and vomiting) Pulmonary hypertension ([facility]) Seizure ([facility]) 06/06/2021 as per rochellether Stable burst fracture of unspecified lumbar vertebra, subsequent encounter for fracture with delayed healing Stroke ([facility]) Unspecified dementia, unspecified severity, without behavioral disturbance, psychotic disturbance, mood disturbance, and anxiety ([facility]) Urinary retention UTI (urinary tract infection) Vitamin D deficiency Cosigned by Corey Granado MD at 07/28/2025 9:32 PM CDT * Ritika Morton NP - 07/26/2025 6:51 PM CDT Request for Documentation Clarification Zander Denney ; VISIT [id number] Query Response Sent: 07/26/25 18:51 CDT From: Ritika Morton NP Query question: Based on medical judgment and consideration of these clinical indicators, the following condition was evaluated, monitored and/or treated during this episode of care Provider response: Acute on chronic heart failure with preserved EF Original Query Sent: 07/25/25 13:26 CDT From: Prachi Montalvo RN, CDS To: Ritika Morton NP By submitting this query, we are seeking further clarification of documentation to accurately reflect all conditions that you monitored, evaluated, treated, or that may have extended the hospitalization or utilization of additional resources for care. Chart review has indicated your clinical opinion is needed regarding the following diagnosis. Your response serves as your authenticated entry to the Legal Medical Record. The fact that a question isasked does not imply that any particular diagnosis is desired or expected. Based on medical judgment and consideration of these clinical indicators, the following condition was evaluated, monitored and/or treated during this episode of care * Acute heart failure with preserved EF * Acute on chronic heart failure with preserved EF * Chronic heart failure with preserved EF * Other Clinical Information CHF is documented in this encounter. Please clarify the diagnosis of CHF. H&P by Ana Bennett at 07/22/2025 14:39 B/L LE edema - LE DVT negative. Fluid removal per HD PROGRESS by Dutch Cotton at 07/23/2025 08:26 -EXT: 1-2+ edema, tender to touch CONSULT by Real Hodges at 07/24/2025 10:46 Echo showed normal EF but significant Right lower leg: Edema present. Left lower leg: Edema present. PROGRESS by Ritika Morton at 07/24/2025 09:02 BLE edema / pain Pt has extreme swelling to BLE with hardening to the soft tissues noted by her daughter Ongoing and worsening for a couple weeks. VDUS BLE negative for DVT/SVT Check ABIs Consider additional diuresis during dialysis -EXT: 1-2+ edema, tender to touch PROGRESS by Eduarda Alejandre at 07/24/2025 17:01 -Musculoskeletal / EXT: legs edema up to thighs and hips, left arm AVF with bruit, deep to palpate ECHO: USE ECHOCARDIOGRAM W CON by Ana Bennett at 07/23/2025 15:59 FINDINGS: ++++++++++++++++++++++++++++++++++++ LV: The left ventricular size is normal. The left ventricular systolic function is lower limits of normal. Estimated left ventricular ejection fraction is 50-55%. Moderate concentric left ventricular hypertrophy. Left ventricular diastolic function is not reliably assessed. WM: Wall motion appears normal in all segments. RV: The right ventricular size is mild to moderately enlarged. Right ventricular systolic function is at the lower limit of normal. IVS: No evidence of ventricular septal defect. LA: The left atrial volume is severely increased (>48 ml/M2). RA: Right atrial size is mildly enlarged. IAS: Atrial septum appears intact. WILNER: No evidence of pericardial effusion. Radiology Report: CT CHEST W CON by Ana Bennett at 07/22/2025 16:[address]: 1[address] No CT evidence of pulmonary embolus to the lobar level as above 2. Large area of consolidative opacity left lower lobe probably infectious inflammatory consolidative pneumonia. 3. Small, probably associated left pleural effusion 4. Mild findings suggestive of dependent pulmonary edema or could be fluid/volume overload 5. The calcified lesion in the right upper lung is seen to be calcified thyroid nodule. Additional stable findings of multinodular goiter. 6. Cardiomegaly with small possibly physiologic pericardial effusion. Weights: 07/22/25 1123 121.7 kg (268 lb 4.8 oz) 07/23/25 04:25:59 122.8 kg (270 lb 11.6 oz) 07/24/25 04:07:15 123.8 kg (272 lb 14.9 oz) 07/24/25 23:40:44 119.3 kg (263 lb 0.1 oz) Vital sign: Heart Rate - 07/22/2025 11:23 - 128* Heart Rate - 07/22/2025 12:00 - 129* Heart Rate - 07/22/2025 16:30 - 114* Heart Rate - 07/22/2025 18:00 - 115* Heart Rate - 07/22/2025 19:00 - 110* Heart Rate - 07/22/2025 20:00 - 100* Heart Rate - 07/22/2025 21:00 - 81* Heart Rate - 07/22/2025 22:00 - 107* Heart Rate - 07/23/2025 00:43 - 118* Heart Rate - 07/23/2025 00:43 - 118* Heart Rate - 07/23/2025 04:25 - 107* Heart Rate - 07/24/2025 08:10 - 88* Heart Rate - 07/24/2025 23:40 - 94* Heart Rate - 07/25/2025 09:51 - 108* Heart Rate - 07/25/2025 11:26 - 87 * Precious Marion - 07/26/2025 3:04 PM CDT 07/26/25 1504 Forms Reinforcement Important Message from Medicare (Subsequent IMM) Signed Copy delivered Patient gave verbal signature. 2nd copy of IMM left in patient's room. * Precious Marion - 07/26/2025 3:04 PM CDT Patient gave verbal signature. 2nd copy of IMM left in patient's room. * Samantha Reveles RN - 07/26/2025 1:21 PM CDT 07/26/25 1320 Interdisciplinary Group Conference Team Members Present Physician;Case/Care management;Nursing;PT/OT;Pharmacy Physician present for group conference Ritika Morton NP Patient Current Status Paient current status Inpatient Barriers to Discharge Inpatient Review Barriers to Discharge Inpatient Weaning for Oxygen in Process;No Barrier- Medical Milestone in Process (DC tomorrow pending card recs, wean O2) Patient expects to be discharged to Patient expects to be discharged to: [facility]( SNF) ([place]) Discharge needs Insurance Authorization needed No Does the patient need discharge transport arranged? Yes Type of transportation needed? Ambulance Has discharge transport been arranged? No Per Abi, patient can return to [facility] over the weekend. Report to be called to [phone]. * Ritika Morton NP - 07/26/2025 12:30 PM CDT Images from the original note were not included. Hospitalist Daily Progress Note Subjective NAEO. Patient seen and evaluated in HD. She tells me the dialysis nurse doesn't like her. She tellsme she wants to go back to her room and repeats this. Cardiology ESCROW MANAGER at bedside as well, but patientis fixated on seeing Dr Hodges. Answering orientation questions appropriately Objective Filed Vitals: 07/26/25 0850 07/26/25 0858 07/26/25 0915 07/26/25 0930 BP: 138/65 128/71 125/73 132/82 Pulse: (!) 119 88 (!) 114 (!) 111 Resp: 16 Temp: 98.1 ??F (36.7 ??C) TempSrc: Oral SpO2: 98% Weight: Height: Intake/Output 24H Total: No intake or output data in the 24 hours ending 07/26/25 0945 Physical Exam: -GENERAL: No acute distress, ill appearing -HEAD: Normocephalic, Atraumatic -EYES: Extraocular movements intact -LUNGS: diminished bilaterally, No wheezes, No crackles, No rhonchi; on 1L NC -CVS: irregular rhythm, tachycardic, S1 and S2 normal -ABDOMEN: Soft, Non tender, Non distended -EXT: 1-2+ edema, tender to touch -NEURO: Awake, alert, oriented, No gross neuro deficits -SKIN: No significant rashes Medications apixaban 5 mg Oral BID ARIPiprazole 3 mg Oral nightly B jvcfozk-T-svqbj acid 0.8 mg 1 tablet Oral Daily busPIRone 5 mg Oral TID cefepime 1 g Intravenous Q24H epoetin saira-epbx 10,000 Units Intravenous Once per day on Tuesday ferrous sulfate EC 324 mg Oral Once per day on Tuesday [START ON 07/27/2025] furosemide 120 mg Oral 2 times per day on Tuesday insulin lispro 0-16 Units Subcutaneous TID AC And insulin lispro 0-8 Units Subcutaneous Nightly at bedtime methylphenidate 10 mg Oral BID metoprolol tartrate 12.5 mg Oral BID midodrine 10 mg Oral 2 times per day on Tuesday sertraline 50 mg Oral Daily Tenapanor HCl (CKD) 1 tablet Oral BID vancomycin 750 mg Intravenous Once vancomycin pharmacy to dose Intravenous See Admin Instructions vitamin B-12 1,000 mcg Oral nightly acetaminophen OR acetaminophen, HYDROcodone-acetaminophen, HYDROmorphone, ipratropium-albuterol, naLOXone, ondansetron, polyethylene glycol Labs, Imaging, Other Studies Recent Labs Lab 07/22/25 1127 07/23/25 0542 07/24/25 0553 07/25/25 0601 07/26/25 0549 WBC 9.33 7.44 7.10 6.04 6.63 RBC 3.23* 2.90* 2.95* 2.88* 3.26* HGB 9.5* 8.4* 8.7* 8.4* 9.6* HCT 32.0* 28.4* 29.5* 28.9* 32.3* MCV 99.1* 97.9 100.0* 100.3* 99.1* MCH 29.4 29.0 29.5 29.2 29.4 MCHC 29.7* 29.6* 29.5* 29.1* 29.7* PLT 277 254 242 244 252 RDW 15.8* 15.9* 16.0* 16.2* 16.3* MPV 10.0 10.0 10.2 10.2 10.2 PERNEU 85.2 79.5 75.6 74.5 74.8 PERLYM 6.9 9.5 12.8 12.9 12.7 PERMON 6.2 7.0 8.5 9.3 9.2 NEUC 7.95* 5.91 5.37 4.50 4.96 LYMC 0.64* 0.71* 0.91* 0.78* 0.84* MONOC 0.58 0.52 0.60 0.56 0.61 EOSC 0.05 0.22 0.17 0.14 0.16 BASOC 0.04 0.04 0.02 0.02 0.02 DTYPE AUTOMATED DIFFERENTIAL AUTOMATED DIFFERENTIAL AUTOMATED DIFFERENTIAL AUTOMATED DIFFERENTIAL AUTOMATED DIFFERENTIAL Recent Labs Lab 07/22/25 1127 07/23/25 0542 07/24/25 0553 07/25/25 0601 07/26/25 0549 NA 134* 137 137 138 136 K 6.1* 4.2 4.2 4.0 4.4 CL 99 101 101 102 99 CO2 25.2 27.1 26.3 27.9 24.5 AGAP 9.8 8.9 9.7 8.1 12.5* BUN 54* 29* 43* 31* 42* CR 5.43* 3.19* 4.29* 3.52* 4.61* BUNCREATININ 9.9 9.1 10.0 8.8 9.1 GLU 144* 66* 129* 125* 137* CA 10.3* 9.9 9.5 10.0 10.0 TP 6.9 6.0* 6.3* 6.2* 7.1 ALB 2.4* 2.1* 2.2* 2.2* 2.4* TBIL 0.7 0.8 0.9 0.6 0.6 ALKP 251* 219* 230* 203* 223* AST 130* 269* 139* 122* 85* ALT 69* 167* 143* 136* 133* Recent Labs Lab 07/23/25 0542 HGBA1C 7.4* TSH 2.910 No results for input(s): APTT, INR, PTT in the last 168 hours. Recent Labs Lab 07/22/25 1127 07/22/25 1338 TROP 62* 56* Recent Labs Lab 07/22/25 1137 07/22/25 1338 07/22/25 1633 07/23/25 0542 07/24/25 0553 07/25/25 0601 07/26/25 0549 LACTICACID 3.4* 2.8* 2.0 -- -- -- -- PROCT -- -- -- < > 0.88* 0.95* 0.69* < > = values in this interval not displayed. No results for input(s): PH, PCO2, PO2, [id number], BICARBWB, BASEDEFICIT, BASEEXCESS in the last 168 hours. No results found for this or any previous visit. Imaging USV ART REST W BURAK LOW EXT Result Date: 07/26/2025 ARTERIAL DOPPLER - BURAK BILATERAL LOWER EXTREMITY VASCULAR LAB Pat.Name: ZANDER ADLER Pat.ID: [id number] .Date: 07/24/2025 Exam Time: 3:07:00 PM Study Type:SHANON VS Arterial Doppler Legs JONATAN Height:66 in Age: 9 1945,80Y Sex: F Sonogrphr: Best Eddy RDMS, RVT History / Clinical:BLE edema Procedures: Doppler waveforms, Digit PPG, Systolic Pressures w/BURAK Race: W ++++++++++++++++++++++++++++++++++++ SUMMARY: ++++++++++++++++++++++++++++++++++++ Andrés BURAK Criteria: >1.30 = falsely elevated, calcified vessels; 1.00-1.29 = no signif ischemia at rest ; .80-.99 = mild PAD, asymptomatic; .50-.79 = moderate PAD, claudication; <.50 = severe PAD, rest pain; <.30 = critical PAD, necrosis, poor healing (Digits: DBI >.60 Normal; <.60 Abnormal) (Positive Stress eval: BURAK decrease of >.20 or >20% pressure drop) Right leg: Common Femoral waveform is biphasic, low amplitude; Popliteal biphasic, low amplitude; Posterior Tibial biphasic, low amplitude with BURAK 0 ; DP/Anterior Tibial biphasic, low amplitude with BURAK 0 . Digit flow by PPG is not recorded with DBI . Left leg: Common Femoral waveform is biphasic, low amplitude; Popliteal biphasic, low amplitude; Posterior Tibial biphasic, low amplitude with BURAK 0 ; DP/Anterior Tibial biphasic, low amplitude with BURAK 0. Digit flow by PPG is not recorded with DBI . Extremely limited non-diagnostic exam due to patients compliance and leg pain. CONCLUSION: 1. BURAK right leg were not obtained due to non-compressible vessels. The toe index was not obtained due to patient compliance. Dampened biphasic waveforms seen at each level. 2. BURAK left leg were not obtained due to non-compressible vessels. The toe index was no t obtained due to patient compliance. Dampened biphasic waveforms seen at each level. 3. Extremely limited non-diagnostic exam due to patients compliance and leg pain. ++++++++++++++++++++++++++++++++++++ MEASUREMENTS: ++++++++++++++++++++++++++++++++++++ PRESSURES Right Brachial Brach P 136 mmHg Right Ankle DP AnkleDP P 0 mmHg Right Ankle PT AnklePT P 0 mmHg Right BURAK PT BURAK PT 0 Right BURAK DP BURAK DP 0 Left Ankle DP AnkleDP P 0 mmHg Left Ankle PT AnklePT P 0 mmHg Left BURAK PT BURAK PT 0 Left BURAK DP BURAK DP 0 <Electronic Signature> 07/26/2025 07:39 AM Nikhil Andrews M.D. XR FOOT RT 2V Result Date: 07/24/[address] [address] Examination: XR FOOT RT 2V Exam time: 07/23/2025 5:35 PM Clinical history: Right great toe pain. Comparison:None. Technique: AP and lateral views of the right foot obtained portably. Findings: The bones are diffusely demineralized. Soft tissue swelling overlies the medial aspect of the hindfoot. Mild osteoarthritis affects the first metatarsophalangeal joint. There is mild scattered interphalangeal joint osteoarthritis. Mild to moderate osteoarthritis affects the midfoot. Plantar and posterior calcaneal enthesophytes are noted. No radiographic evidence is seen to suggest acute fracture or malalignment of the bones of the right foot. There are atherosclerotic calcifications. Amorphous calcifications posterior and anterior to the lower leg are nonspecific but could be related to prior injury. There are hammertoe deformities of the lesser toes. IMPRESSION: 1. Diffusely demineralized bones without evidence to suggest acute fracture or malalignment of the bones of the right foot. 2. Osteoarthritis as above. 3. Soft tissue swelling overlying the medial aspect of the hindfoot. Referred By: Interpreted By: Jac Lara DO, 07/24/2025 2:12 AM USV CLINT DUPLEX LOW EXT JONATAN Result Date: 07/23/2025 VENOUS DUPLEX IMAGING BILATERAL LOWER EXTREMITY VASCULAR LAB Pat.Name: ZNADER ADLER Anabel Garg.ID: [id number] .Date: 07/22/2025 Refer.: [id number], Live zhang Exam Time: 3:33:00 PM Study Type:SHANON VS Venous Duplex Legs JONATAN Height: 67 in Age: 9 1945,80Y Sex: F Sonogrphr: Best Eddy RDMS,RVT History / Clinical:BLE edema Procedures: Linda scale, Color Doppler imaging, Doppler Spectral Analysis Race: W ++++++++++++++++++++++++++++++++++++ SUMMARY: ++++++++++++++++++++++++++++++++++++ Right leg: There are NO apparent, deep or superficial vein, ACUTE character venous filling defects visualized in the common femoral, proximal deep femoral, femoral, popliteal, gastrocnemius, posterior tibial, peroneal, great saphenousveins. Resting venous flow is phasic and significantly pulsatile. Left leg: There are NO apparent, deep or superficial vein, ACUTE character venous filling defects visualized in the common femoral, proximal deep femoral, femoral, popliteal, gastrocnemius, posterior tibial, peroneal, great saphenousveins. Resting venous flow is phasic and significantly pulsatile. Limited exam bilaterally due to patients condition, lower extremity swelling, and patients pain tolerance with compression. CONCLUSION: Limited exam bilaterally due to patients condition, lower extremity swelling, and patients pain tolerance with compression. No evidence of acute DVT or SVT seen in the bilateral lower extrmities. Pulsatile venous flows are suggestive of central venous hypertension (CHF, pulmonary HTN, right heart failure), though this may be a normal finding in a young, healthy patient. <Electronic Signature> 07/23/2025 09:59 PM Nikhil Andrews M.D. USE ECHOCARDIOGRAM W CON Result Date: 07/23/2025 Echocardiography Report Pat.Name: ZANDER ADLER Pat.ID: [id number] St.Date: 07/23/2025 Exam Time: 1:08:00 PM Study Type:ECHO WITH CARDIAC DOPPLER COMP Height: 66 in Weight: 270 lb BSA: 2.27 m2 Age: 9 1945,80Y Sex: F BP: 109/52 HR: 107 bpm Sonogrphr: Whitney Velazquez [facility] Pat. Stat.:Inpatient Room: [facility] Reason for Study:Congestive heart failure History / Clinical:BLE edema Procedures: 2D, M-mode, Doppler, Color Flow, Definity was used to enhance endocardial definition. The study quality is technically difficult. Race: W ++++++++++++++++++++++++++++++++++++ SUMMARY: ++++++++++++++++++++++++ ++++++++++++ Left ventricle is normal in size with low normal systolic function Estimated EF of 50-55% Moderate LVH Right ventricle is enlarged with low normal systolic function Moderate to severe aortic stenosis Mild to moderate mitral and pulmonic regurgitation Moderate tricuspid regurgitation Moderate pulmonary hypertension. Mildly dilated ascending aorta. ++++++++++++++++++++++++++++++++++++ FINDINGS: ++++++++++++++++++++++++++++++++++++ LV: The left ventricular size is normal. The left ventricular systolic function is lower limits of normal. Estimated left ventricular ejection fraction is 50-55%. Moderate concentric left ventricular hypertrophy. Left ventricular diastolic function is not reliably assessed. WM: Wall motion appears normal in all segments. RV: The right ventricular size is mild to moderately enlarged. Right ventricular systolic function is at the lower limit of normal. IVS: No evidence of ventricular septal defect. LA: The left atrial volume is severely increased (>48 ml/M2). RA: Right atrial size is mildly enlarged. IAS: Atrial septum appears intact. WILNER: Noevidence of pericardial effusion. AO: The sinus of Valsalva measures 3.9cm. The proximal ascending aorta measures 4.1cm. PA: Estimated right atrial pressure of 8 mmHg. SVn: Inferior vena cava is not dilated. Inferior vena cava shows <50% collapse with respiration consistent with elevated right atrial pressure. AV: The aortic valve is trileaflet. Moderate to severe aortic valve stenosis. The peak velocity across the aortic valve measures 4.19m/sec with a peak gradient of 70mmHg and a mean gradient of 40mmHg. The calculated aortic valve area is 0.9cm2. No evidence of aortic valve regurgitation. Moderate to severe calcification of aortic valve leaflets. MV: Mild to moderate mitral regurgitation. No evidence of mitral stenosis. Moderate thickening of mitral valve leaflets. PV: No evidence of pulmonic valve stenosis. Mild to moderate pulmonic regurgitation. TV: Moderate tricuspid regurgitation. Right ventricular systolic pressure is 50-60 mmHg suggestive of moderate pulmonary hypertension. No evidence of tricuspid valve stenosis. ++++++++++++++++++++++++++++++++++++ MEASUREMENTS: +++++ +++++++++++++++++++++++++++++++ DOPPLER LVOT LVOTpkPG 6 mmHg LVOTmnPG 3 mmHg LVOTpkVel 127 cm/s (70-110)+* LVOT SV 69 ml LVOT TVI 22 cm Right Atrium RA Press 8 mmHg Rasmussen's Disk 20 AV Forward FlowAV TVI 75 cm AV pkPG 61 mmHg AV pkVel 392 cm/s (100-170)+* Area (TVI) 0.92 cm2 (3-5)* AV mnPG 36 mmHg Area (Lee) 1.02 cm2 (3-5)* MV Forward Flow MV DeTm 194 msec MV P1/2t 57 msec (30-60)+ MVA P1/2t 3.86 cm2 (4-6)* MV pkE 155 cm/s (60-130)+* PV Forward Flow PV pkVel 107 cm/s (60-90)+* PV AC 89 msec PV pkPG 5 mmHg TV Regurg Flow TV pkPG 50 mmHg TV pkVel 354 cm/s (30-70)* Right Ventricle RVsys P 58mmHg Right Ventricle 10.9 cm/s Lat E' Lat e 13.5 cm/s Lat E/E' Lat E/e 11.5 Med E' Med e 8.44 cm/s Med E/E' Med E/e 18.4 Aortic Valve Aortic Valve Ar 0.41 Aortic Valve Ve 0.32 AV DI Value 0.29 Left Ventricle LV IVRT 33 msec PV Antegrade Flow Acceleration Sl 1030 cm/s2 2D Left Ventricle LVIDd 5.13cm (3.6-5.2) LV ESV 23.2 ml LVIDs 3.87 cm (2.3-3.9) LV ESV 53.7 ml LngAxd 7.61 cm LVESV BP 35.2 ml LngAxd 7.93 cm LV EF 57.4 % LV EDV 54.5 ml LV EF 53.3 % LV EDV 115 ml LV EF BP 56.4 % LVEDV BP 80.7 ml LV SV 31.3 ml LngAxs 6.53 cm LV SV 61.3 ml LngAxs 6.64 cm LV SV BP 45.5 ml LVPW LVPWd 1.38 cm Ventricular Septum IVSd 1.39 cm Left Atrium LA VOLBP 179 ml Aorta Ao Rtd 3.9 cm Ao Asc 4.1 cm (2.1-3.4)* LVOT LVOT 2 cm LVOTArea 3.14 cm2 Ratios IVS Inferior vena cava IVC Diam 17.9 mm LA Biplane LAVol I BP 78.9 ml/m2 RA Single Plane Right Atrium MO 17.7 mm Right Atrium Sy 71.1 ml Right Atrium Sy 61.4mm Right Atrium Sy 31.3 ml/m2 Right Atrium Sy 22.6 cm2 Right Ventricle Right Ventricle 45.6 mm Right Ventricle 38.3 mm Major [place] 68.2 mm MMODE TA Tricuspid Annul 15.2 mm <Electronic Signature>07/23/2025 03:59 PM Real Hodges M.D. 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 PULMONARY EMBOLUS PROTOCOL CLINICAL INDICATION: 80-year-old female. Reason for examination: Nodule in the right upper lobe. Possible atypical pneumonia, atrial fibrillation look for pulmonary embolus. Abnormal chest x-ray . TECHNIQUE: CT acquisition was performed according to the standard protocol from the aortic arch to the upper abdomen during the pulmonary enhancement phase of an intravenous contrast bolus of 80 cc of Isovue 370. Intravenous contrast injected into indwelling access in the right antecubital fossa. No adverse contrast reaction reported. Additional coronal 3-D reconstructions and postprocessing volume rendered MIP vascular images of the pulmonary arteries was performed. Dose lowering technique was used for this study which may include, but is not limited to, dose reduction techniques, automated exposure control, use of iterative reconstruction and ALARA (As low As Reasonably Achievable)/Image Gently techniques. COMPARISON: Portable AP view of the chest07/22/2025 and 01/11/2024 CT of the chest without contrast 07/18/2016 and 07/11/2016 Thyroid ultrasound07/14/2016 CT cervical spine without contrast 04/12/2022 Nuclear medicine VQ scan 07/11/2016 FINDINGS:The study was technically adequate to the lobar level only. No intraluminal filling defects, wall th ickening, or thrombus is present in the pulmonary arterial vascular tree to the lobar level suggestpulmonary embolus . A segmental or subsegmental pulmonary embolus would not be seen on this study due to respiratory motion and a small, renal preserving bolus. Lower neck/chest soft tissues: The partially calcified lesion in the right upper chest right lower neck supraclavicular region is redemonstrated and is seen to be large calcified right thyroid nodule, stable evaluated and noted since 2016. Most recently nearly identical appearance on CT of the cervical spine. Today this measures 4.1 x 2.7 x 3.8 cm similar to that documented on the thyroid ultrasound of 2016. Additional calcified and no ncalcified nodules in the enlarged left and right lobe of the thyroid in keeping with the given diagnosis of previous imaging of multinodular goiter. There are scattered calcifications throughout theleft and right breast tissues. Might consider referral to breast imaging Center for further evaluation Numerous spiderlike opacified ectatic superficial right breast wall and right subclavian and axillary vein varicosities may be sequela of right upper extremity AV fistula. Lungs/pleura: There is asmall left pleural effusion and overlying larger area of dense consolidation and atelectasis suspect for infectious inflammatory consolidative pneumonia involving the lingula and the left lower lobe.Left upper lobe clear and the right lung is clear. There is subtle dependent interlobular septal thickening hazy posterior groundglass opacity which could represent mild pulmonary edema or reflectiveof fluid/volume overload. Heart/great vessels/aorta: Stable measured ectasia ascending aorta maximal diameter 40 mm unchanged since 2016. Normal caliber aortic arch descending aorta and suprarenal aorta. Widespread calcific atherosclerosis of the aorta and heavy plaque at the ostia the celiac trunkand SMA and right and left renal arteries has increased since 2016. Since December 2023 the patient has received of right IJ hemodialysis catheter and the tips are in good position at the right atrial SVC junction. Mild cardiomegaly due to four-chamber enlargement. Aortic valve and coronary artery calcifications. Small, 8mm probably physiologic pericardial effusion. Mild hepatic venous reflux probably chronically elevated right heart pressures or fluid/volume overload. Mediastinum/itzel: There is no mediastinal or hilar or axillary lymphadenopathy. Esophagus unremarkable. No evidence of thoracic aortic dissection. Upper abdomen: Scattered granulomata throughout the liver and spleen mild diffuse hepatic steatosis. Status post cholecystectomy. Tiny bilateral atrophic kidneys. Calcified enlargedright adrenal gland, likely calcified adenoma unchanged since 2016. Small hypodense left adrenal gland nodule also unchanged since 2016, probably stable adenoma. Bone window imaging: No acute or pathologic bony abnormality. Widespread diminished bone density exaggeration thoracic kyphosis long segment anterior longitudinal ligament calcification may be DISH.. IMPRESSION: 1. No CT evidence of pulmonary embolus to the lobar level as above 2. Large area of consolidative opacity left lower lobe probably infectious inflammatory consolidative pneumonia. 3. Small, probably associated left pleural effusion 4. Mild findings suggestive of dependent pulmonary edema or could be fluid/volume overload 5. The calcified lesion in the right upper lung is seen to be calcified thyroid nodule. Additional stable findings of multinodular goiter. 6. Cardiomegaly with small possibly physiologic pericardial effusion. 7. Stable large calcified right adrenal adenoma and small left adrenal adenoma 8. Scattered calcifications more numerous in the left than the right breast;might consider referral to breast imaging Center for further evaluation 9. Right upper extremity opacified ectatic venous varicosities from the subclavian and axillary veins may be related to prior right upper extremity AV fistula. This should be confirmed in the medical record. Referred By: Interpreted By: Deborah Sexton DO, 07/22/2025 3:[address] HEAD WO CON Result Date: 07/22/2025 [facility] [address] [place], [place] [address] EXAM: CT HEAD WO CON DATE: 07/22/2025 12:27 PM INDICATION: Altered mental status. TECHNIQUE: Transverse images through the head were obtained without intravenous contrast. A radiation dose lowering technique was used for this procedure, which may include, but is not limited to, dose reduction technique, automated exposure control, the use of iterative reconstruction, ALARA (As Low As Reasonably Achievable) techniques, and Image Gently techniques. COMPARISON: CT head 01/07/2024 FINDINGS: Motion degraded examination despite repeated imaging, limiting the sensitivity of this exam. There is no evidence of acute intracranial hemorrhage. No evidence of abnormal intra or extra axial fluid collections. The ventricles in extra-axial spaces are mildly prominent compatible with global volume loss and similar to prior. No evidence of mass, mass effect, or midline shift. Diffuse low-density within the white matter again consistent with chronic microangiopathy, similar to prior. No definite CT findings of acute territorial infarction, within limitations of motion. No calvarial fracture is seen. Diffuse permeative appearance of the calvarium. Diffuse opacification of the left maxillary sinus. Bilateral mastoid air cell effusion. The globes and orbits are symmetric and grossly unremarkable. IMPRESSION: 1. Motion degraded examination despite repeated imaging, limiting the sensitivity of this exam. 2. No definite CT findings of acute territorial infarction, within limitations of motion. 3. Senescent changes of global volume loss and chronic microangiopathy. 4. Diffuse permeative appearance of the calvarium. This is nonspecific but given the history of ESRD with hemodialysis this likely is secondary to renal osteodystrophy. 5. Diffuse opacification of the left maxillary sinus. Bilateral mastoid air cell effusion. Ordered By: HEATHER GUEVARA Interpreted By: Irvin Hernandez MD, 07/22/2025 12:52 PM XR CHEST PORTABLE Result Date: 07/22/[address] [address] IMAGINGSTUDIES: XR CHEST PORTABLE DATE: 07/22/2025 11:40 AM HISTORY: new o2 requirement 72-year-old female.Altered mental status during dialysis. Reported temperature of 100.3 prior to dialysis treatment 1 (did not receive dialysis today). Patient's daughter reports the patient was released from [facility] on 07/01/2025 after treatment for urinary tract infection. COMPARISON: Chest portable 01/11/2024 and 01/07/2024. DISCUSSION: Portable AP upright view of the chest. Rightward rotated. 2.8 x 2.6 cmpartially calcified lesion projecting in the right upper chest and right lower neck/supraclavicular region which is not evident on the prior studies. Differential diagnosis would primarily include calcified enlarged lymph node or potential progression of vascular calcification. Right chest tunneleddialysis catheter with tip in the inferior right atrium is new since 01/11/2024. Stable cardiomegaly. No acute pulmonary vascular congestion. Aortic atherosclerotic calcifications. Low lung volumes but similar to prior studies. Chronic bilateral lung parenchymal scarring and pleural scarring. No appreciable significant pulmonary infiltrate or consolidation. No apparent pleural effusion or pneumothorax. Degenerative changes spine and shoulders. IMPRESSION: 1. Cardiomegaly. No acute pulmonary vascular congestion. Tunneled right chest dialysis catheter is new since 01/11/2024. 2. No apparent new pulmonary infiltrate or consolidation. 3. Partially calcified 2.8 cm lesion projecting in the right upper chest to right lower neck is not evident on 2023 radiographs. Could be further evaluated on nonemergent elective CT if clinically indicated. 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 : 1945 Requested By: HEATHER GUEVARA Order Number: [id number] Reading MD: German Stevens Measurements Intervals Point [place] Rate: 137 P: 0 UT: 0 QRS: -18 QRSD: 111 T: 68 QT: 295 QTc: 446 Interpretive Statements ATRIAL FIBRILLATION WITH RAPID VENTRICULAR RESPONSE POSSIBLE LATERAL MYOCARDIAL INFARCTION , OF INDETERMINATE AGE [30 ms Q WAVE IN I/aVL/V5/V6] Compared to ECG 07/17/2024 13:56:11 No significant changes Assessment & Plan Sepsis due to suspected HAP pneumonia pt admitted recently at [place] lives in SNF and does HD Presented fever, chills with cough/URI s/s for about 1 week Lactate 3.4, trend Source: suspected HAP CXR showed new RUL lesions, considering atypicals Legionella negative UA 500 LE, negative nitrites, > 100 WBC, RBCs Blood cultures (07/22) NGTD2 Urine culture shows 1k-9k col/ml etienne albicans Received 500 IV fluid bolus, continue cautions IV fluids goal 30 mg/kg but limited due to dialysis IV antibiotics vancomycin and cefepime, monitor for toxicity MRSA swab positive Consider aspiration. 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 The pt does not exhibit any overt coughing or throat clearing; No immediate concern foracute dysphagia. CT chest LLL opacity concerning for consolidative PNA, small L pleural effusion PCT 0.91 > 0.69, though unreliable given ESRD Acute hypoxic respiratory failure With tachypnea 2/2 PNA Supported on O2 at 2 L with sats in the mid 90s. Without oxygen she dropped as low as the 80s Wean O2 as able, maintain O2 saturations > 90% IS/Acapella Currently on 1L NC, RN to wean as able Acute metabolic encephalopathy Noted to have confusion after HD today which nursing staff reports is new Per Care Everywhere, has had slowly worsening memory loss since 2020; follows with [facility] Was on donepezil but stopped as thought to be contributing to depression Check stat head CT, ammonia, B12, TSH Check BG -- 125 Treatment as above Neuro checks Consider neurology consult/MRI brain if no improvement BLE edema / pain Pt has extreme swelling to BLE with hardening to the soft tissues noted by her daughter Ongoing and worsening for a couple weeks. VDUS BLE negative for DVT/SVT Check ABIs -- couldn't tolerate so no readings obtained Consider additional diuresis during dialysis Pain likely 2/2 HD; continue supportive care Check iron studies, ferritin Hyperkalemia requiring monitoring and treatment: Resolved 6.1. Given Lokelma but patient not taking POs well. 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 Patient was given 1 1 bolus of 500. ESRDlimiting fluid resuscitation Pressures remained stable Anticoagulated with Eliquis Rate control with BB Cardiology consulted, appreciate assistance -- Would not aggressively treat right now, given HRs seem to be in general < 120. Can consider adding amio or dilt, if needed, if HRs remain above 100 prior to discharge. Cardiology considering amio oral loading for rate control Per cards, will hold off on amio load given elevated LFTs and HR generally <[address] Incidental breast calcifications Seen on CT: Scattered calcifications more numerous in the left than the right breast; might consider referral to breast imaging center for further evaluation Will need PCP follow up if not already addressed for further testing/imaging Left arm Suture due to be removed, remove prior to d/c Critical care time 35 minutes This patient had a high probability of imminent or life-threatening deterioration due to acute metabolic encephalopathy requiring immediate intervention along with frequent monitoring, which requiredmy direct attention, intervention, and personal management. I have personally provided minutes as above of critical care time exclusive of time spent on separately billable procedures. Time includes review of laboratory data, radiology results, discussion with consultants, and monitoring for potential decompensation. Interventions were performed as documented above. Dispo: pending clinical improvement, O2 wean, nephrology/cards recs, back to SNF when ready RITIKA MORTON NP 07/26/2025 Cosigned by Nayla Figueroa MD at 07/26/2025 4:40 PM CDT * Adelaida GibbsD - 07/26/2025 7:54 AM CDT Vancomycin Pharmacy to Dose Day #5 (day 3 of consult) Ordering Provider: Anabel Morton Indication: PNA AUC goal: 400 - 600 Ht/Wt: 5'6 / 123.8 kg Individualized trough goal: 15-20 Date WBC SCr CrCl Tmax Level Dose 07/22 9.33 5.43 HD 98.5 2000 mg 07/23 7.44 3.19 HD 99 10/1 7.10 4.29 HD 98.6 16.7 1000 mg 102 6.04 3.52 HD 98.1 - 10/3 6.63 4.61 HD 98.4 21.7 750 mg Other Antibiotics: cefepime Cultures/Tests: MRSA Nasal Swab: Positive Bcx2: NG Urine: 1-9,000 etienne A/P: 80 year old female initiated on vancomycin for the management of Pneumonia. PMH significant for ESRD (MWF). Vancomycin 750 mg x 1 after HD today. Next vancomycin level will be / prior to next HD session to determine further doses. Pharmacy will continue to monitor labs and adjust dose per protocol. * Eduarda Alejandre MD - 07/26/2025 6:36 AM CDT Zander Adler is a 80-year-old female patient. Dialysis note Reason for Follow Up: ESRD on HD, hyperkalemia Subjective: Mrs. Adler is doing alright. No overnight events. No dizziness, headache, SOB, nausea or vomiting Current Facility-Administered Medications Medication Dose Route Frequency Provider Last Rate Last Admin acetaminophen (TYLENOL) tablet 650 mg 650 mg Oral Q4H PRN JOSE Mills 650 mg at 07/25/251858 Or acetaminophen (TYLENOL) suppository 650 mg 650 mg Rectal Q4H PRN JOSE Mills alteplase injection 2 mg 2 mg Intracatheter Once Eduarda Alejandre MD alteplase injection 2 mg 2 mg Intracatheter Once Eduarda Alejandre MD apixaban (ELIQUIS) tablet 5 mg 5 mg Oral BID Dutch Cotton MD 5 mg at 07/25/252027 ARIPiprazole (ABILIFY) tablet 3 mg 3 mg Oral nightly Dutch Cotton MD 3 mg at 07/25/252026 B yudxybb-S-njtvt acid 0.8 mg (DIALYVITE/NEPHRO-RANDALL) tablet 1 tablet 1 tablet Oral Daily Eduarda Alejandre MD 1 tablet at 07/25/25 1337 busPIRone (BUSPAR) tablet 5 mg 5 mg Oral TID Dutch Cotton MD 5 mg at 07/25/252027 ceFEPIme (MAXIPIME) 1 g in sodium chloride 0.9 % 50 mL IVPB 1 g Intravenous Q24H JOSE Mills Stopped at 07/25/252122 epoetin saira-epbx (RETACRIT) injection 10,000 Units 10,000 Units Intravenous Once per day on Tuesday Ritika Morton NP 10,000 Units at 07/26/25 1106 ferrous sulfate EC tablet 324 mg 324 mg Oral Once per day on Tuesday Dutch Cotton MD 324 mg at 07/24/25 0803 [START ON 07/27/2025] furosemide (LASIX) tablet 120 mg 120 mg Oral 2 times per day on Tuesday Eduarda Alejandre MD HYDROcodone-acetaminophen (NORCO) 5-325 MG tablet 1 tablet 1 tablet Oral Q6H PRN JOSE Mills HYDROmorphone (DILAUDID) injection 0.2 mg 0.2 mg Intravenous Q3H PRN JOSE Mills 0.2 mg at 07/22/25 1502 insulin lispro (HUMALOG/ADMELOG) injection 0-16 Units 0-16 Units Subcutaneous TID AC Dutch Cotton MD 4 Units at 07/25/25 1625 And insulin lispro (HUMALOG/ADMELOG) injection 0-8 Units 0-8 Units Subcutaneous Nightly at bedtime Dutch Cotton MD 4 Units at 07/25/252030 ipratropium-albuterol (DUONEB) 0.5-2.5 (3) MG/3ML nebulizer solution 3 mL 3 mL Nebulization Q4H PRNDutch Cotton MD methylphenidate (RITALIN) tablet 10 mg 10 mg Oral BID Dutch Cotton MD 10 mg at 07/25/25 1337 metoprolol tartrate (LOPRESSOR) tablet 12.5 mg 12.5 mg Oral BID Cher Carrillo MD 12.5 mg at 07/24/252010 midodrine (PROAMATINE) tablet 10 mg 10 mg Oral 2 times per day on Tuesday Eduarda Alejandre MD 10 mg at 07/26/25 0853 naLOXone (NARCAN) injection 0.4 mg 0.4 mg Intravenous PRN JOSE Mills ondansetron (ZOFRAN) injection 4 mg 4 mg Intravenous Q8H PRN JOSE Mills polyethylene glycol (GLYCOLAX) packet 17 g 17 g Oral Daily PRN JOSE Mills sertraline (ZOLOFT) tablet 50 mg 50 mg Oral Daily Dutch Cotton MD 50 mg at 07/25/25 0859 Tenapanor HCl (CKD) TABS 1 tablet 1 tablet Oral BID Ritika Morton NP 1 tablet at 07/25/25 1624 vancomycin (VANCOCIN) 750 mg in sodium chloride 0.9 % 250 mL IVPB 750 mg Intravenous Once Ritika Weir NP vancomycin pharmacy to dose placeholder Intravenous See Admin Instructions Ritika Morton NP vitamin B-12 (CYANOCOBALAMIN) tablet 1,000 mcg 1,000 mcg Oral nightly Dutch Cotton MD 1,000 mcg at 07/25/252027 Review of patient's allergies indicates: Allergen Reactions Sulfa Antibiotics Unknown Wellbutrin [Bupropion] Unknown Per [place] documentation Principal Problem: Severe sepsis (CMS/HCC [facility]) SNOMED CT(R): SEPSIS Social History Tobacco Use Smoking status: Never Smokeless tobacco: Never Substance Use Topics Alcohol use: No Objective: Filed Vitals: 07/26/25 1145 07/26/25 1200 07/26/25 1215 07/26/25 1230 BP: 130/71 121/82 130/75 (!) 143/56 Pulse: 100 (!) 104 (!) 102 (!) 104 Resp: Temp: TempSrc: SpO2: Weight: Height: Intermittent/Straight Cath (mL): 50 mL Physical Exam: -GENERAL: no apparent distress; on O2 NC -EYES: EOMI -LUNG: coarse breath sounds -CVS: Regular rate rhythm, systolic murmur -ABDOMEN: Soft, nontender -Musculoskeletal / EXT: legs edema up to thighs and hips, left arm AVF with bruit, deep to palpate -NEURO: AAOx3 LABs I reviewed labs Recent Labs Lab 07/22/25 1127 07/23/25 0542 07/24/25 0553 07/25/25 0601 07/26/25 0549 NA 134* 137 137 138 136 K 6.1* 4.2 4.2 4.0 4.4 CL 99 101 101 102 99 CO2 25.2 27.1 26.3 27.9 24.5 AGAP 9.8 8.9 9.7 8.1 12.5* BUN 54* 29* 43* 31* 42* CR 5.43* 3.19* 4.29* 3.52* 4.61* BUNCREATININ 9.9 9.1 10.0 8.8 9.1 GLU 144* 66* 129* 125* 137* CA 10.3* 9.9 9.5 10.0 10.0 MAGNESIUM 2.0 1.9 -- -- -- PHOS -- -- 7.4* -- -- Recent Labs Lab 07/22/25112607/23/25 0542 07/24/25 0553 07/25/25 0601 07/26/25 0549 WBC 9.33 7.44 7.10 6.04 6.63 RBC 3.23* 2.90* 2.95* 2.88* 3.26* HGB 9.5* 8.4* 8.7* 8.4* 9.6* HCT 32.0* 28.4* 29.5* 28.9* 32.3* MCV 99.1* 97.9 100.0* 100.3* 99.1* MCH 29.4 29.0 29.5 29.2 29.4 MCHC 29.7* 29.6* 29.5* 29.1* 29.7* PLT 277 254 242 244 252 RDW 15.8* 15.9* 16.0* 16.2* 16.3* MPV 10.0 10.0 10.2 10.2 10.2 Assessment/Plan: Mrs. Adler a 76 y.o female with hx ESRD on chronic HD MWF, breast cancer, A.fib, Hypertension, DM, hx of seizure, nephrolithiasis, CHF. -patient went to dialysis today but had fever and AMS for which was sent here. [facility]. -recent admission [facility]; treated for UTI / pseudomonas with Abx. -chest imaging showed no PE. It showed opacitiy over the left lung field, small left pleural effusion, cardiomegaly. ---ESRD on chronic HD MWF. Hyperkalemia on admission; s/p lokelma and dialysis on admission with improvement of K. S/p HD Tuesday with 2L UF. Plan for HD today per regular schedule. Patient was seen and examined during HD. On added midodrine for hypotension (increasing dose), and nephrocaps nephrocaps, added lasix on non-HD days ---A.fib with RVR; on metoprolol ---legs edema and pain; doppler US was negative for DVT but limited study ---suspected PMA with fever; on Abx per primary team ---DM; on insulin; management per primary team ---Anemia of CKD. Probably on lonc acting CHELITA as outpatient. added CHELITA with HD . Hg at 9.6 EDUARDA ALEJANDRE MD 07/26/2025 * Alexsandra Olvera RN - 07/25/2025 2:29 PM CDT Problem: Discharge Planning Goal: Knowledge of discharge instructions Outcome: Progressing Problem: Pain control/comfort Goal: Promote pain control/comfort Outcome: Progressing Problem: Skin integrity, at risk Goal: Absence of new skin breakdown Outcome: Progressing Problem: Reduced risk for falls/injury Goal: Reduced Risk for Falls/Injury Outcome: Progressing Goal: Reduced Risk of Confusion (Acute vs Chronic) Outcome: Progressing Goal: Reduced Risk of Symptomatic Depression Outcome: Progressing Goal: Reduced Risk of Altered Elimination Outcome: Progressing Goal: Reduced Risk of Dizziness/Vertigo/Balance Outcome: Progressing Goal: Reduced Risk of Polypharmacy Outcome: Progressing Problem: Infection - Risk of, Central Venous Catheter-Associated Bloodstream Infection Goal: Absence of Central Venous Catheter Associated Bloodstream Infection Signs and Symptoms Outcome: Progressing Problem: Discharge Planning Goal: Knowledge of discharge instructions Outcome: Progressing Problem: Body Temperature - Risk of, Imbalanced Goal: Body temperature within specified parameters Outcome: Progressing Problem: Venous Thromboembolism - Risk of Goal: Absence of venous thromboembolism Outcome: Progressing * María Elena Adamson PharmD - 07/25/2025 1:14 PM CDT Vancomycin Pharmacy to Dose Day #2 Ordering Provider: Anabel Morton Indication: PNA AUC goal: 400 - 600 Ht/Wt: 5'6 / 123.8 kg Individualized trough goal: 15-20 Date WBC SCr CrCl Tmax Level Dose 07/22 9.33 5.43 HD 98.5 2000 mg 07/23 7.44 3.19 HD 99 07/24 7.10 4.29 HD 98.6 16.7 1000 mg 07/25 6.04 3.52 HD 98.1 - Other Antibiotics: cefepime Cultures/Tests: MRSA Nasal Swab: Positive Bcx2: NG Urine: 1-9,000 etienne A/P: 80 year old female initiated on vancomycin for the management of Pneumonia. PMH significant for ESRD (MWF). No dose due today. Next vancomycin level will be 10/3 prior to next HD session to determine further doses. Pharmacy will continue to monitor labs and adjust dose per protocol. * Kapil Tijerina, PT - 07/25/2025 12:33 PM CDT 07/25/25 1100 Therapy Visit Ordering Provider JOSE Bennett PT Received On 07/25/25 PT Evaluation Completed on 07/25/25 Treatment Day 1 Subjective Rm 441B PT orders received w/EMR reviewed. Patient supine agreeable to PT evaluation with c/o (B) foot pain. Reason for admission DX: severe sepsis Relevant Comorbidities PMHX: dementia, CVA, Castleman disease, depression, anxiety, nephrolithiosis, CHF, DM, seizure, HTN, Afib, breast CA, ESRD on hemodialysis Verified Two Patient Identifiers Yes Patient consents to therapy Yes Acute Inpatient PT Time Calculation PT Start Time 1133 PT Stop Time 1146 PT Time Calculation (min) 13 min Precautions Weight Bearing Status As tolerated General Precautions Bed Alarm;Chair Alarm;Fall Risk;Supplemental oxygen PPE Used Gown;Gloves Instructed on Precautions Yes;Verbalizes understanding Home Living Type of Home [facility] facility ([facility]) Home Layout One level Home Accessibility 0 Steps to enter Bathroom Shower/Tub Walk-in shower Home Equipment Wheelchair-manual;Jaquelin lift Prior Function Level of [place] Needs assistance with ADLs;Needs assistance with homemaking;Needs assistance with functional transfers Device used at baseline Wheelchair-manual Baseline Ambulation Distance/Assistance nonambulatory (reuired assistance to propel w/c) Fall History No Lives With Alone Receives Help From Facility staff ADL Assistance Needs assistance Homemaking Assistance Needs assistance Pain Pain Yes Pain Score 0-10 Scale Pain Level 6 Location (B) feet Interventions Re-direction;Relaxation;Re-positioning Activity Tolerance Endurance Tolerates < 10 min activity, no significant change in vital signs Endurance Quality Poor Limiting Factors to Endurance Pain Pre-activity VS HR = 69 BPM, O2 Saturation = 91% on 2L/min NC Cognition Overall Cognitive Status WFL Arousal/Alertness Appropriate responses to stimuli Attention Span Appears intact Memory Appears intact Orientation Level Oriented X4 Following Commands Follows one step commands with increased time Safety Judgment Decreased awareness of need for assistance Awareness of Errors Assistance required to identify errors made Deficits Decreased awareness of deficits Problem Solving Assistance required to identify errors made LUE Assessment LUE Comment n/a'd due to patient's c/o foot pain RLE Assessment RLE Comment n/a'd due to patient's c/o foot pain Bed Mobility Rolling Max assist to left;Assist of 2 Other (Comment) patient declined sitting @ EOB TRANSFERS Other (Comment) n/a'd Gait Other (Comment) n/a'd Stairs Other (Comment) n/a'd Wheelchair Mobility Other (Comment) n/a'd Balance Sitting - Static Not Tested Sitting - Dynamic Not Tested Standing - Static Not applicable Standing - Dynamic Not applicable Other (Comment) patient declined sitting at EOB Assessment Personal Factors/Comorbidities Impacting Care 3-4 personal factors/comorbidities Examination of Body Systems High (at least 4 Elements) Clinical Presentation of Patient Evolving and changing characteristics Complexity Level of Evaluation High Prognosis Guarded PT Assess/Eval Other (Comment) The patient is a a 80 year old SNF resident hospitalized due to severe sepsis who at the PT evaluation requires maximal assistance for bed mobility activities and declined sitting at EOB. At baseline the patient is nonambulatory, a jaquelin lift for transfers and total assist for ADL's. As the patient appears to be at her baseline functional status no additional PT services are indicated at this time. Basic Mobility Turning from your back to your side while in a flat bed without using bedrails 2 (A Lot) Moving from lying on your back to sitting on the side of a flat bed without using bedrails 2 (A Lot) Moving to and from bed to chair (including wheelchair) 2 (A Lot) Standing up from a chair using your arms (e.g. wheelchair or bedside commode 1 (Unable) To walk in hospital room 1 (Unable) Climbing 3-5 steps with railing 1 (Unable) Basic Mobility Score Score out of /24 9 Patient/Family Training Bed Mobility x Discharge Recommendation PT Recommendation Long-term snf home placement;No skilled PT PT Equipment Recommended Currently has DME in Place No Skilled PT At baseline function Plan Progress Discontinue PT PT Frequency One time visit If this is the last treatment note,it will serve as the discharge summary Yes End of Session End of Session Safety Bed alarm set/activated;Call light within reach;Nursing aware of session Interdisciplinary Collaboration RN, OT * Lilia Snell RN - 07/25/2025 12:21 PM CDT 07/25/25 1221 Interdisciplinary Group Conference Team Members Present Physician;Case/Care management;Nursing;PT/OT;Pharmacy Physician present for group conference Sherly Patient Current Status Paient current status Inpatient Barriers to Discharge Inpatient Review Barriers to Discharge Inpatient Weaning for Oxygen in Process Patient expects to be discharged to Patient expects to be discharged to: [facility] Facility( SNF) 1440: Spoke with alejandra Hill for patient to return LTC per PT recs. JAVIER 07/26. * Kortney Horton OTR - 07/25/2025 12:07 PM CDT 07/25/25 1129 Therapy Visit OT Received On 07/22/25 OT Evaluation Completed on 07/25/25 Reason for admission severe sepsis Relevant Comorbidities dementia, CVA, Castleman disease, depression, anxiety, nephrolithiosis, CHF,DM, seizure, HTN, Afib, breast CA, ESRD on hemodialysis Ordering Provider Sabrina Verified Two Patient Identifiers Yes Patient consents to therapy Yes Acute Inpatient OT Time Calculation OT Start Time 1129 OT Stop Time 1149 OT Time Calculation (min) 20 min Precautions Weight Bearing Status As tolerated General Precautions Bed Alarm;Chair Alarm;Fall Risk;Contact;Hard of Hearing;Supplemental oxygen PPE Used Gown;Gloves Instructed on Precautions Yes;Verbalizes understanding Skin Integrity multiple IV sites; LUE dialysis port Other Pt instructed in fall precautions and use of call light. Subjective Subjective RM 441; OT orders received and EMR reviewed; RN consented to OT eval and pt agreeable tolimited session. Home Living Type of Home [facility] ([facility]) Home Layout One level Home Accessibility 0 Steps to enter Home Equipment Jaquelin lift;Wheelchair-manual Prior Function Level of [place] Needs assistance with ADLs;Needs assistance with homemaking;Needs assistance with functional transfers Device used at baseline Wheelchair-manual Baseline Ambulation Distance/Assistance nonambulatory (pt reported staff propel w/c for her) Fall History No Lives With Alone Receives Help From Facility staff ADL Assistance Needs assistance Homemaking Assistance Needs assistance Pain Pain No Pain Score 0-10 Scale Pain Level 6 Location Bilateral feet Interventions Re-direction;Re-positioning;Relaxation Activity Tolerance Endurance Tolerates < 10 min activity, no significant change in vital signs Endurance Quality Poor Limiting Factors to Endurance Pain Pre-activity VS HR = 69 BPM, O2 Saturation = 91% on 2L/min NC Vision - Basic Assessment Current Vision Wears glasses only for reading Cognition Overall Cognitive Status Impaired Arousal/Alertness Appropriate responses to stimuli Attention Span Appears intact Memory Decreased short term memory Orientation Level Oriented X4 Following Commands Follows one step commands consistently Safety Judgment Decreased awareness of need for assistance Awareness of Errors Assistance required to identify errors made Deficits Decreased awareness of deficits Problem Solving Assistance required to identify errors made Motor Planning Appears intact Perseveration Not present Initiation Cues to initiate tasks Overall Extremity Assessment Upper Extremity BUE AROM WFL; bilateral shoulder elevators 4-/5; bilateral elbow to hand 4/5, except L bicep deferred d/t dialysis port Hand Function Hand Dominance Right Gross Grasp Right;Left;Functional Coordination Functional Sensation Light Touch No apparent deficits Additional Comments BUEs ADL Eating/Feeding Assistance Stand by;Sitting upright in bed Eating/Feeding Deficit Setup Grooming Assistance Stand by;Sitting upright in bed Grooming Deficit Supervision/safety;Increased time to complete Bathing Assistance Moderate;Sitting upright in bed Bathing Deficit Buttocks;Right upper leg;Left upper leg;Left lower leg including foot;Right lower leg including foot;Supervision/safety;Verbal cueing;Steadying;Increased time to complete UE Dressing Assistance Sitting upright in bed;Minimal UE Dressing Deficit Steadying;Supervision/safety;Increased time to complete;Pull down in back LE Dressing Assistance Total;In bed LE Dressing Deficit Don/doff R sock;Don/doff L sock;Thread RLE into pants;Thread LLE into pants;Thread RLE into underwear;Thread LLE into underwear;Pull up over hips;Steadying;Verbal cueing;Supervision/safety;Increased time to complete Toileting Assistance Total Toileting Deficit Use of bedpan/urinal setup;Clothing management up;Clothing management down;Perineal hygiene;Verbal cueing;Supervision/safety;Steadying;Increased time to complete Bed Mobility Rolling Max assist to left;Assist of 2 Other (Comment) patient declined sitting at EOB Functional Transfers Other (Comment) Pt is jaquelin lift at baseline and declines transfer to chair. Balance Sitting - Static Not Tested Sitting - Dynamic Not Tested Standing - Static Not applicable Standing - Dynamic Not applicable Other (Comment) patient declined sitting at EOB Proprioception Proprioception No apparent deficits Assessment Occupational Profile and History Complexity High (Extensive) Clinical Decision Making High (max modifications) Complexity Level of Evaluation High Prognosis Guarded OT Assess/Eval Other (Comment) 80 y.o. F presenting to skilled therapy following hospitalization for severe sepsis. At [facility], pt is jaquelin lift for transfers and has assist for ADLs from staff. Currently, pt requires set-up to total assist for ADLs and max assist x2 for rolling. Pt appears to be at baseline for transfers and ADL performance. Pt has no acute OT needs at this time. OT recommending discharge to SNF/LTC. Daily Activity Putting on and taking off regular lower body clothing 1 (Unable) Bathing (including washing, rinsing, drying) 2 (A Lot) Putting on and taking off regular upper body clothing 3 (A Little) Toileting which includes toilet, bedpan, or urinal 1 (Unable) Taking care of personal grooming such as brushing teeth 3 (A Little) Eating meals 4 (None) Daily Activity Score Score out of /24 14 Comments 60% functional impairment Patient/Family Training Other (Comment) Pt cooperative with encouragement for limited participation and demonstrated decreased insight into deficits. Pt has hx of dementia. Discharge Recommendation OT Recommendation Long-term snf home placement;24 hour supervision/assist;No skilled OT OT Equipment Recommended Currently has DME in Place No Skilled OT At baseline function Plan Progress Discontinue OT OT Frequency One time visit If this is the last treatment note, it will serve as the discharge summary Yes End of Session End of Session Safety Bed alarm set/activated;Call light within reach;Nursing aware of session Interdisciplinary Collaboration RN; PT * Ritika Morton NP - 07/25/2025 9:51 AM CDT Images from the original note were not included. Hospitalist Daily Progress Note Subjective Patient seen and evaluated resting in bed. NAEO. Doesn't really offer any complaints or concerns today. Breathing feels ok, on 1-2L NC. Denies SOB. No CP. No n/v/abd pain. No dysuria. Having Bms. Continued bilat leg/foot pain. Objective Filed Vitals: 07/25/25 0534 07/25/25 0537 07/25/25 0748 07/25/25 0951 BP: 105/72 101/59 Pulse: (!) 113 (!) 108 Resp: 15 Temp: 97.7 ??F (36.5 ??C) TempSrc: Oral SpO2: (!) 86% 96% 91% 98% Weight: Height: Intake/Output 24H Total: Intake/Output Summary (Last 24 hours) at 07/25/2025 0951 Last data filed at 07/25/2025 0950 Gross per 24 hour Intake 827 ml Output 2000 ml Net -1173 ml Physical Exam: -GENERAL: No acute distress, ill appearing -HEAD: Normocephalic, Atraumatic -EYES: Extraocular movements intact -LUNGS: diminished bilaterally, No wheezes, No crackles, No rhonchi; on 2L NC -CVS: irregular rhythm, tachycardic, S1 and S2 normal -ABDOMEN: Soft, Non tender, Non distended -EXT: 1-2+ edema, tender to touch -NEURO: Awake, alert, oriented, No gross neuro deficits -SKIN: No significant rashes Medications apixaban 5 mg Oral BID ARIPiprazole 3 mg Oral nightly busPIRone 5 mg Oral TID cefepime 1 g Intravenous Q24H epoetin saira-epbx 10,000 Units Intravenous Once per day on Tuesday ferrous sulfate EC 324 mg Oral Once per day on Tuesday insulin lispro 0-16 Units Subcutaneous TID AC And insulin lispro 0-8 Units Subcutaneous Nightly at bedtime methylphenidate 10 mg Oral BID metoprolol tartrate 12.5 mg Oral BID midodrine 5 mg Oral 2 times per day on Tuesday sertraline 50 mg Oral Daily Tenapanor HCl (CKD) 1 tablet Oral BID vancomycin pharmacy to dose Intravenous See Admin Instructions vitamin B-12 1,000 mcg Oral nightly acetaminophen OR acetaminophen, HYDROcodone-acetaminophen, HYDROmorphone, ipratropium-albuterol, naLOXone, ondansetron, polyethylene glycol Labs, Imaging, Other Studies Recent Labs Lab 07/22/25 1127 07/23/25 0542 07/24/25 0553 07/25/25 0601 WBC 9.33 7.44 7.10 6.04 RBC 3.23* 2.90* 2.95* 2.88* HGB 9.5* 8.4* 8.7* 8.4* HCT 32.0* 28.4* 29.5* 28.9* MCV 99.1* 97.9 100.0* 100.3* MCH 29.4 29.0 29.5 29.2 MCHC 29.7* 29.6* 29.5* 29.1* PLT 277 254 242 244 RDW 15.8* 15.9* 16.0* 16.2* MPV 10.0 10.0 10.2 10.2 PERNEU 85.2 79.5 75.6 74.5 PERLYM 6.9 9.5 12.8 12.9 PERMON 6.2 7.0 8.5 9.3 NEUC 7.95* 5.91 5.37 4.50 LYMC 0.64* 0.71* 0.91* 0.78* MONOC 0.58 0.52 0.60 0.56 EOSC 0.05 0.22 0.17 0.14 BASOC 0.04 0.04 0.02 0.02 DTYPE AUTOMATED DIFFERENTIAL AUTOMATED DIFFERENTIAL AUTOMATED DIFFERENTIAL AUTOMATED DIFFERENTIAL Recent Labs Lab 07/22/25 11207/23/25 0542 07/24/25 0553 07/25/25 0601 NA 134* 137 137 138 K 6.1* 4.2 4.2 4.0 CL 99 101 101 102 CO2 25.2 27.1 26.3 27.9 AGAP 9.8 8.9 9.7 8.1 BUN 54* 29* 43* 31* CR 5.43* 3.19* 4.29* 3.52* BUNCREATININ 9.9 9.1 10.0 8.8 GLU 144* 66* 129* 125* CA 10.3* 9.9 9.5 10.0 TP 6.9 6.0* 6.3* 6.2* ALB 2.4* 2.1* 2.2* 2.2* TBIL 0.7 0.8 0.9 0.6 ALKP 251* 219* 230* 203* AST 130* 269* 139* 122* ALT 69* 167* 143* 136* Recent Labs Lab 07/23/25 0542 HGBA1C 7.4* TSH 2.910 No results for input(s): APTT, INR, PTT in the last 168 hours. Recent Labs Lab 07/22/25 1127 07/22/25 1338 TROP 62* 56* Recent Labs Lab 07/22/25 1137 07/22/25 1338 07/22/25 1633 07/23/25 0542 07/24/25 0553 07/25/25 0601 LACTICACID 3.4* 2.8* 2.0 -- -- -- PROCT -- -- -- 0.91* 0.88* 0.95* No results for input(s): PH, PCO2, PO2, [id number], BICARBWB, BASEDEFICIT, BASEEXCESS in the last 168 hours. No results found for this or any previous visit. Imaging XR FOOT RT 2V Result Date: 07/24/2025 [facility] [address] [place], [place] [address] Examination: XR FOOT RT 2V Exam time: 07/23/2025 5:35 PM Clinical history: Right great toe pain. Comparison:None. Technique: AP and lateral views of the right foot obtained portably. Findings: The bones are diffusely demineralized. Soft tissue swelling overlies the medial aspect of the hindfoot. Mild osteoarthritis affects the first metatarsophalangeal joint. There is mild scattered interphalangeal joint osteoarthritis. Mild to moderate osteoarthritis affects the midfoot. Plantar and posterior calcaneal enthesophytes are noted. No radiographic evidence is seen to suggest acute fracture or malalignment of the bones of the right foot. There are atherosclerotic calcifications. Amorphous calcifications posterior and anterior to the lower leg are nonspecific but could be related to prior injury. There are hammertoe deformities of the lesser toes. IMPRESSION: 1. Diffusely demineralized bones without evidence to suggest acute fracture or malalignment of the bones of the right foot. 2. Osteoarthritis as above. 3. Soft tissue swelling overlying the medial aspect of the hindfoot. Referred By: Interpreted By: Jac Lara DO, 07/24/2025 2:12 AM [facility] ART REST W BURAK LOW EXT Result Date: 07/24/2025 ARTERIAL DOPPLER - BURAK BILATERAL LOWER EXTREMITY VASCULAR LAB Pat.Name: NAYELY ZANDER Anabel Garg.ID: [id number] St.Date: 07/24/2025 Exam Time: 3:07:00 PM Study Type:SHANON VS Arterial Doppler Legs JONATAN Height:66 in Age: 9 1945,80Y Sex: F Sonogrphr: Best Eddy RDMS, RVT History / Clinical:BLE edema Procedures: Doppler waveforms, Digit PPG, Systolic Pressures w/BURAK Race: W ++++++++++++++++++++++++++++++++++++ SUMMARY: ++++++++++++++++++++++++++++++++++++ Andrés BURAK Criteria: >1.30 = falsely elevated, calcified vessels; 1.00-1.29 = no signif ischemia at rest ; .80-.99 = mild PAD, asymptomatic; .50-.79 = moderate PAD, claudication; <.50 = severe PAD, rest pain; <.30 = critical PAD, necrosis, poor healing (Digits: DBI >.60 Normal; <.60 Abnormal) (Positive Stress eval: BURAK decrease of >.20 or >20% pressure drop) Right leg: Common Femoral waveform is biphasic, low amplitude; Popliteal biphasic, low amplitude; Posterior Tibial biphasic, low amplitude with BURAK 0 ; DP/Anterior Tibial biphasic, low amplitude with BURAK 0 . Digit flow by PPG is not recorded with DBI . Left leg: Common Femoral waveform is biphasic, low amplitude; Popliteal biphasic, low amplitude; Posterior Tibial biphasic, low amplitude with BURAK 0 ; DP/Anterior Tibial biphasic, low amplitude with BURAK 0 . Digit flow by PPG is not recorded with DBI . Extremely limited non-diagnostic exam due to patientscompliance and leg pain. CONCLUSION: 1. BURAK right leg were not obtained due to non-compressible vessels. The toe index was not obtained due to patient compliance. Dampened biphasic waveforms seen at each level. 2. BURAK left leg were not obtained due to non-compressible vessels. The toe index was notobtained due to patient compliance. Dampened biphasic waveforms seen at each level. 3. Extremely limited non-diagnostic exam due to patients compliance and leg pain. ++++++++++++++++++++++++++++++++++++ MEASUREMENTS: ++++++++++++++++++++++++++++++++++++ PRESSURES Right Brachial Brach P 136 mmHg Right Ankle DP AnkleDP P 0 mmHg Right Ankle PT AnklePT P 0 mmHg Right BURAK PT BURAK PT 0 Right BURAK DP BURAK DP 0 Left Ankle DP AnkleDP P 0 mmHg Left Ankle PT AnklePT P 0 mmHg Left BURAK PT BURAK PT 0 Left BURAK DP BURAK DP 0 Unsigned Nikhil Andrews M.D. [facility] DUPLEX LOW EXT JONATAN Result Date: 07/23/2025 VENOUS DUPLEX IMAGING BILATERAL LOWER EXTREMITY VASCULAR LAB Pat.Name: ZANDER ADLER Pat.ID: [id number] St.Date: 07/22/2025 Refer.MD: [id number], Live zhang Exam Time: 3:33:00 PM Study Type:SHANON VS Venous Duplex Legs JONATAN Height: 67 in Age: 9 1945,80Y Sex: F Sonogrphr: Best Eddy, MICHELLEMS, RVT History / Clinical:BLE edema Procedures: Linda scale, Color Doppler imaging, Doppler Spectral Analysis Race: W ++++++++++++++++++++++++++++++++++++ SUMMARY: ++++++++++++++++++++++++++++++++++++ Right leg: There are NO apparent, deep or superficial vein, ACUTE character venous filling defects visualized in the common femoral, proximal deep femoral, femoral, popliteal, gastrocnemius, posterior tibial, peroneal, great saphenousveins. Resting venous flow is phasic and significantly pulsatile. Left leg: There are NO apparent, deep or superficial vein, ACUTE character venous filling defects visualized in the common femoral, proximal deep femoral, femoral, popliteal, gastrocnemius, posterior tibial, peroneal, great saphenousveins. Resting venous flow is phasic and significantly pulsatile. Limited exam bilaterally due to patients condition, lower extremity swelling, and patients pain tolerance with compression. CONCLUSION: Limited exam bilaterally due to patients condition, lower extremity swelling, and patients pain tolerance with compression. No evidence of acute DVT or SVT seen in thebilateral lower extrmities. Pulsatile venous flows are suggestive of central venous hypertension (CHF, pulmonary HTN, right heart failure), though this may be a normal finding in a young, healthy patient. <Electronic Signature> 07/23/2025 09:59 PM Nikhil Andrews M.D. USE ECHOCARDIOGRAM W CON Result Date: 07/23/2025 Echocardiography Report Pat.Name: DANNY ADLERERIMary Little Pat.ID: [id number] St.Date: 07/23/2025 Exam Time: 1:08:00 PM Study Type:ECHO WITH CARDIAC DOPPLER COMP Height: 66 in Weight: 270 lb BSA: 2.27 m2 Age: 9 1945,80Y Sex: F BP: 109/52 HR: 107 bpm Sonogrphr: Whitney Velazquez [facility] Pat. Stat.:Inpatient Room: [facility] Reason for Study:Congestive heart failure History / Clinical:BLE edema Procedures: 2D, M-mode, Doppler, Color Flow, Definity was used to enhance endocardial definition. The study quality is technically difficult. Race: W ++++++++++++++++++++++++++++++++++++ SUMMARY: ++++++++++++++++++++++++ ++++++++++++ Left ventricle is normal in size with low normal systolic function Estimated EF of 50-55% Moderate LVH Right ventricle is enlarged with low normal systolic function Moderate to severe aortic stenosis Mild to moderate mitral and pulmonic regurgitation Moderate tricuspid regurgitation Moderate pulmonary hypertension. Mildly dilated ascending aorta. ++++++++++++++++++++++++++++++++++++ FINDINGS: ++++++++++++++++++++++++++++++++++++ LV: The left ventricular size is normal. The left ventricular systolic function is lower limits of normal. Estimated left ventricular ejection fraction is 50-55%. Moderate concentric left ventricular hypertrophy. Left ventricular diastolic function is not reliably assessed. WM: Wall motion appears normal in all segments. RV: The right ventricular sizeis mild to moderately enlarged. Right ventricular systolic function is at the lower limit of normal. IVS: No evidence of ventricular septal defect. LA: The left atrial volume is severely increased (>48 ml/M2). RA: Right atrial size is mildly enlarged. IAS: Atrial septum appears intact. WILNER: No evidence of pericardial effusion. AO: The sinus of Valsalva measures 3.9cm. The proximal ascending aorta measures 4.1cm. PA: Estimated right atrial pressure of 8 mmHg. SVn: Inferior vena cava is not dilated. Inferior vena cava shows <50% collapse with respiration consistent with elevated right atrial pressure. AV: The aortic valve is trileaflet. Moderate to severe aortic valve stenosis. The peak velocity across the aortic valve measures 4.19m/sec with a peak gradient of 70mmHg and a mean gradient of 40mmHg. The calculated aortic valve area is 0.9cm2. No evidence of aortic valve regurgitation. Moderate to severe calcification of aortic valve leaflets. MV: Mild to moderate mitral regurgitation. No evidence of mitral stenosis. Moderate thickening of mitral valve leaflets. PV: No evidence of pulmonic valve stenosis. Mild to moderate pulmonic regurgitation. TV: Moderate tricuspid regurgitation. Right ventricular systolic pressure is 50-60 mmHg suggestive of moderate pulmonary hypertension. No evidence of tricuspid valve stenosis. ++++++++++++++++++++++++++++++++++++ MEASUREMENTS: ++++++ ++++++++++++++++++++++++++++++ DOPPLER LVOT LVOTpkPG 6 mmHg LVOTmnPG 3 mmHg LVOTpkVel 127 cm/s (70-110)+* LVOT SV 69 ml LVOT TVI 22 cm Right Atrium RA Press 8 mmHg Rasmussen's Disk 20 AV Forward Flow AV TVI 75 cm AV pkPG 61 mmHg AV pkVel 392 cm/s (100-170)+* Area (TVI) 0.92 cm2 (3-5)* AV mnPG 36 mmHg Area (Lee) 1.02 cm2 (3-5)* MV Forward Flow MV DeTm 194 msec MV P1/2t 57 msec (30-60)+ MVA P1/2t 3.86 cm2 (4-6)* MV pkE 155 cm/s (60-130)+* PV Forward Flow PV pkVel 107 cm/s (60-90)+* PV AC 89 msec PV pkPG 5 mmHg TV Regurg Flow TV pkPG 50 mmHg TV pkVel 354 cm/s (30-70)* Right Ventricle RVsys P 58 mmHg Right Ventricle 10.9 cm/s Lat E' Lat e 13.5 cm/s Lat E/E' Lat E/e 11.5 Med E' Med e 8.44 cm/s Med E/E' Med E/e 18.4 Aortic Valve Aortic Valve Ar 0.41 Aortic Valve Ve 0.32 AV DI Value 0.29 Left Ventricle LV IVRT 33 msec PV Antegrade Flow Acceleration Sl 1030 cm/s2 2D Left Ventricle LVIDd 5.13 cm (3.6-5.2) LV ESV 23.2 ml LVIDs 3.87 cm (2.3-3.9) LV ESV 53.7 ml LngAxd 7.61 cm LVESV BP 35.2 ml LngAxd 7.93 cm LV EF 57.4 % LV EDV 54.5 ml LV EF 53.3 % LV EDV 115 ml LV EF BP 56.4 % LVEDV BP 80.7 mlLV SV 31.3 ml LngAxs 6.53 cm LV SV 61.3 ml LngAxs 6.64 cm LV SV BP 45.5 ml LVPW LVPWd 1.38 cm Ventricular Septum IVSd 1.39 cm Left Atrium LA VOLBP 179 ml Aorta Ao Rtd 3.9 cm Ao Asc 4.1 cm (2.1-3.4)* LVOT LVOT 2 cm LVOTArea 3.14 cm2 Ratios IVS Inferior vena cava IVC Diam 17.9 mm LA Biplane LAVol I BP 78.9 ml/m2 RA Single Plane Right Atrium MO 17.7 mm Right Atrium Sy 71.1 ml Right Atrium Sy 61.4 mmRight Atrium Sy 31.3 ml/m2 Right Atrium Sy 22.6 cm2 Right Ventricle Right Ventricle 45.6 mm Right Ventricle 38.3 mm Major [place] 68.2 mm MMODE TA Tricuspid Annul 15.2 mm <Electronic Signature> 07/23/2025 03:59 PM Real Hodges M.D. 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 PULMONARY EMBOLUS PROTOCOL CLINICAL INDICATION: 80-year-old female. Reason for examination: Nodule in the right upper lobe. Possible atypical pneumonia, atrial fibrillation look for pulmonary embolus. Abnormal chest x-ray . TECHNIQUE: CT acquisition was performed according to the standard protocol from the aortic arch to the upper abdomen during the pulmonary enhancement phase of an intravenous contrast bolus of 80 cc of Isovue 370. Intravenous contrast injected into indwelling access in the right antecubital fossa. No adverse contrast reaction reported. Additional coronal 3-D reconstructions and postprocessing volume rendered MIP vascular images of the pulmonary arteries was performed. Dose lowering technique was used for this study which may include, but is not limited to, dose reduction techniques, automated exposure control, use of iterative reconstruction and ALARA (As low As Reasonably Achievable)/Image Gently techniques. COMPARISON: Portable AP view of the chest07/22/2025 and 01/11/2024 CT of the chest without contrast 07/18/2016 and 07/11/2016 Thyroid ultrasound07/14/2016 CT cervical spine without contrast 04/12/2022 Nuclear medicine VQ scan 07/11/2016 FINDINGS:The study was technically adequate to the lobar level only. No intraluminal filling defects, wall th ickening, or thrombus is present in the pulmonary arterial vascular tree to the lobar level suggestpulmonary embolus . A segmental or subsegmental pulmonary embolus would not be seen on this study due to respiratory motion and a small, renal preserving bolus. Lower neck/chest soft tissues: The partially calcified lesion in the right upper chest right lower neck supraclavicular region is redemonstrated and is seen to be large calcified right thyroid nodule, stable evaluated and noted since 2016. Most recently nearly identical appearance on CT of the cervical spine. Today this measures 4.1 x 2.7 x 3.8 cm similar to that documented on the thyroid ultrasound of 2016. Additional calcified and no ncalcified nodules in the enlarged left and right lobe of the thyroid in keeping with the given diagnosis of previous imaging of multinodular goiter. There are scattered calcifications throughout theleft and right breast tissues. Might consider referral to breast imaging Center for further evaluation Numerous spiderlike opacified ectatic superficial right breast wall and right subclavian and axillary vein varicosities may be sequela of right upper extremity AV fistula. Lungs/pleura: There is asmall left pleural effusion and overlying larger area of dense consolidation and atelectasis suspect for infectious inflammatory consolidative pneumonia involving the lingula and the left lower lobe.Left upper lobe clear and the right lung is clear. There is subtle dependent interlobular septal thickening hazy posterior groundglass opacity which could represent mild pulmonary edema or reflectiveof fluid/volume overload. Heart/great vessels/aorta: Stable measured ectasia ascending aorta maximal diameter 40 mm unchanged since 2016. Normal caliber aortic arch descending aorta and suprarenal aorta. Widespread calcific atherosclerosis of the aorta and heavy plaque at the ostia the celiac trunkand SMA and right and left renal arteries has increased since 2016. Since December 2023 the patient has received of right IJ hemodialysis catheter and the tips are in good position at the right atrial SVC junction. Mild cardiomegaly due to four-chamber enlargement. Aortic valve and coronary artery calcifications. Small, 8mm probably physiologic pericardial effusion. Mild hepatic venous reflux probably chronically elevated right heart pressures or fluid/volume overload. Mediastinum/itzel: There is no mediastinal or hilar or axillary lymphadenopathy. Esophagus unremarkable. No evidence of thoracic aortic dissection. Upper abdomen: Scattered granulomata throughout the liver and spleen mild diffuse hepatic steatosis. Status post cholecystectomy. Tiny bilateral atrophic kidneys. Calcified enlargedright adrenal gland, likely calcified adenoma unchanged since 2016. Small hypodense left adrenal gland nodule also unchanged since 2016, probably stable adenoma. Bone window imaging: No acute or pathologic bony abnormality. Widespread diminished bone density exaggeration thoracic kyphosis long segment anterior longitudinal ligament calcification may be DISH.. IMPRESSION: 1. No CT evidence of pulmonary embolus to the lobar level as above 2. Large area of consolidative opacity left lower lobe probably infectious inflammatory consolidative pneumonia. 3. Small, probably associated left pleural effusion 4. Mild findings suggestive of dependent pulmonary edema or could be fluid/volume overload 5. The calcified lesion in the right upper lung is seen to be calcified thyroid nodule. Additional stable findings of multinodular goiter. 6. Cardiomegaly with small possibly physiologic pericardial effusion. 7. Stable large calcified right adrenal adenoma and small left adrenal adenoma 8. Scattered calcifications more numerous in the left than the right breast;might consider referral to breast imaging Center for further evaluation 9. Right upper extremity opacified ectatic venous varicosities from the subclavian and axillary veins may be related to prior right upper extremity AV fistula. This should be confirmed in the medical record. Referred By: Interpreted By: Deborah Sexton DO, 07/22/2025 3:[address] HEAD WO CON Result Date: 07/22/[address] [address] EXAM: CT HEAD WO CON DATE: 07/22/2025 12:27 PM INDICATION: Altered mental status. TECHNIQUE: Transverse images through the head were obtained without intravenous contrast. A radiation dose lowering technique was used for this procedure, which may include, but is not limited to, dose reduction technique, automated exposure control, the use of iterative reconstruction, ALARA (As Low As Reasonably Achievable) techniques, and Image Gently techniques. COMPARISON: CT head 01/07/2024 FINDINGS: Motion degraded examination despite repeated imaging, limiting the sensitivity of this exam. There is no evidence of acute intracranial hemorrhage. No evidence of abnormal intra or extra axial fluid collections. The ventricles in extra-axial spaces are mildly prominent compatible with global volume loss and similar to prior. No evidence of mass, mass effect, or midline shift. Diffuse low-density within the white matter again consistent with chronic microangiopathy, similar to prior. No definite CT findings of acute territorial infarction, within limitations of motion. No calvarial fracture is seen. Diffuse permeative appearance of the calvarium. Diffuse opacification of the left maxillary sinus. Bilateral mastoid air cell effusion. The globes and orbits are symmetric and grossly unremarkable. IMPRESSION: 1. Motion degraded examination despite repeated imaging, limiting the sensitivity of this exam. 2. No definite CT findings of acute territorial infarction, within limitations of motion. 3. Senescent changes of global volume loss and chronic microangiopathy. 4. Diffuse permeative appearance of the calvarium. This is nonspecific but given the history of ESRD with hemodialysis this likely is secondary to renal osteodystrophy. 5. Diffuse opacification of the left maxillary sinus. Bilateral mastoid air cell effusion. Ordered By: HEATHER GUEVARA Interpreted By: Irvin Hernandez MD, 07/22/2025 12:52 PM XR CHEST PORTABLE Result Date: 07/22/[address] [address] IMAGINGSTUDIES: XR CHEST PORTABLE DATE: 07/22/2025 11:40 AM HISTORY: new o2 requirement 72-year-old female.Altered mental status during dialysis. Reported temperature of 100.3 prior to dialysis treatment 1 (did not receive dialysis today). Patient's daughter reports the patient was released from [facility] on 07/[facility]/2025 after treatment for urinary tract infection. COMPARISON: Chest portable 01/11/2024 and 01/07/2024. DISCUSSION: Portable AP upright view of the chest. Rightward rotated. 2.8 x 2.6 cmpartially calcified lesion projecting in the right upper chest and right lower neck/supraclavicular region which is not evident on the prior studies. Differential diagnosis would primarily include calcified enlarged lymph node or potential progression of vascular calcification. Right chest tunneleddialysis catheter with tip in the inferior right atrium is new since 01/11/2024. Stable cardiomegaly. No acute pulmonary vascular congestion. Aortic atherosclerotic calcifications. Low lung volumes but similar to prior studies. Chronic bilateral lung parenchymal scarring and pleural scarring. No appreciable significant pulmonary infiltrate or consolidation. No apparent pleural effusion or pneumothorax. Degenerative changes spine and shoulders. IMPRESSION: 1. Cardiomegaly. No acute pulmonary vascular congestion. Tunneled right chest dialysis catheter is new since 01/11/2024. 2. No apparent new pulmonary infiltrate or consolidation. 3. Partially calcified 2.8 cm lesion projecting in the right upper chest to right lower neck is not evident on 2023 radiographs. Could be further evaluated on nonemergent elective CT if clinically indicated. Ordered By: HEATHER GUEVARA Interpreted By: Aron Aguilar, 07/22/2025 12:08 PM EKG: Results for orders placed or performed during the hospital encounter of 07/22/25 [address] 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 : 1945 Requested By: HEATHER GUEVARA Order Number: [id number] Reading MD: German Stevens Measurements Intervals Point [place] Rate: 137 P: 0 UT: 0 QRS: -18 QRSD: 111 T: 68 QT: 295 QTc: 446 Interpretive Statements ATRIAL FIBRILLATION WITH RAPID VENTRICULAR RESPONSE POSSIBLE LATERAL MYOCARDIAL INFARCTION , OF INDETERMINATE AGE [30 ms Q WAVE IN I/aVL/V5/V6] Compared to ECG 07/17/2024 13:56:11 No significant changes Assessment & Plan Sepsis due to suspected HAP pneumonia pt admitted recently at [place] lives in SNF and does HD Presented fever, chills with cough/URI s/s for about 1 week Lactate 3.4, trend Source: suspected HAP CXR showed new RUL lesions, considering atypicals Legionella negative UA 500 LE, negative nitrites, > 100 WBC, RBCs Blood cultures (07/22) NGTD2 Urine culture shows 1k-9k col/ml etienne albicans Received 500 IV fluid bolus, continue cautions IV fluids goal 30 mg/kg but limited due to dialysis IV antibiotics vancomycin and cefepime, monitor for toxicity MRSA swab positive Consider aspiration. 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 The pt does not exhibit any overt coughing or throat clearing; No immediate concern foracute dysphagia. CT chest LLL opacity concerning for consolidative PNA, small L pleural effusion PCT 0.91 > 0.88, though unreliable given ESRD Acute hypoxic respiratory failure With tachypnea 2/2 PNA Supported on O2 at 2 L with sats in the mid 90s. Without oxygen she dropped as low as the 80s Wean O2 as able, maintain O2 saturations > 90% IS/Juany RN to attempt O2 wean today BLE edema / pain Pt has extreme swelling to BLE with hardening to the soft tissues noted by her daughter Ongoing and worsening for a couple weeks. VDUS BLE negative for DVT/SVT Check ABIs -- couldn't tolerate so no readings obtained Consider additional diuresis during dialysis Likely 2/2 HD; continue supportive care Check iron studies, ferritin Hyperkalemia requiring monitoring and treatment: Resolved 6.1. Given Lokelma but patient not taking POs well. 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 Patient was given 1 1 bolus of 500. ESRDlimiting fluid resuscitation Pressures remained stable Anticoagulated with Eliquis Rate control with BB Cardiology consulted, appreciate assistance -- Would not aggressively treat right now, given HRs seem to be in general < 120. Can consider adding amio or dilt, if needed, if HRs remain above 100 prior to discharge. Cardiology considering amio oral loading for rate control Sinusitis Noted on CT Incidental breast calcifications Seen on CT: Scattered calcifications more numerous in the left than the right breast; might consider referral to breast imaging center for further evaluation Will need PCP follow up if not already addressed for further testing/imaging Left arm suture due to be removed, remove prior to d/c Dispo: pending clinical improvement, O2 wean, nephrology/cards recs, back to SNF when ready RITIKA MORTON NP 07/25/2025 Cosigned by Nayla Figueroa MD at 07/26/2025 4:40 PM CDT * Eduarda Alejandre MD - 07/25/2025 6:56 AM CDT Zander Adler is a 80-year-old female patient. Reason for Follow Up: ESRD on HD, hyperkalemia Subjective: Mrs. Adler is feeling ok. No new Sx. No dizziness, headache, cough, fever, CP, SOB Current Facility-Administered Medications Medication Dose Route Frequency Provider Last Rate Last Admin acetaminophen (TYLENOL) tablet 650 mg 650 mg Oral Q4H PRN JOSE Mills 650 mg at 07/25/25 1041 Or acetaminophen (TYLENOL) suppository 650 mg 650 mg Rectal Q4H PRN JOSE Mills apixaban (ELIQUIS) tablet 5 mg 5 mg Oral BID Dutch Cotton MD 5 mg at 07/25/25 0859 ARIPiprazole (ABILIFY) tablet 3 mg 3 mg Oral nightly Dutch Cotton MD 3 mg at 07/24/252010 busPIRone (BUSPAR) tablet 5 mg 5 mg Oral TID Dutch Cotton MD 5 mg at 07/25/25 0859 ceFEPIme (MAXIPIME) 1 g in sodium chloride 0.9 % 50 mL IVPB 1 g Intravenous Q24H JOSE Mills Stopped at 07/24/25 2254 epoetin saira-epbx (RETACRIT) injection 10,000 Units 10,000 Units Intravenous Once per day on Tuesday Ritika Morton NP 10,000 Units at 07/24/25 1027 ferrous sulfate EC tablet 324 mg 324 mg Oral Once per day on Tuesday Dutch Cotton MD 324 mg at 07/24/25 0803 HYDROcodone-acetaminophen (NORCO) 5-325 MG tablet 1 tablet 1 tablet Oral Q6H PRN JOSE Mills HYDROmorphone (DILAUDID) injection 0.2 mg 0.2 mg Intravenous Q3H PRN JOSE Mills 0.2 mg at 07/22/25 1502 insulin lispro (HUMALOG/ADMELOG) injection 0-16 Units 0-16 Units Subcutaneous TID AC Dutch Cotton MD 6 Units at 07/24/25 1642 And insulin lispro (HUMALOG/ADMELOG) injection 0-8 Units 0-8 Units Subcutaneous Nightly at bedtime Dutch Cotton MD ipratropium-albuterol (DUONEB) 0.5-2.5 (3) MG/3ML nebulizer solution 3 mL 3 mL Nebulization Q4H PRNDutch Cotton MD methylphenidate (RITALIN) tablet 10 mg 10 mg Oral BID Dutch Cotton MD 10 mg at 07/25/25 0859 metoprolol tartrate (LOPRESSOR) tablet 12.5 mg 12.5 mg Oral BID Cher Carrillo MD 12.5 mg at 07/24/252010 midodrine (PROAMATINE) tablet 5 mg 5 mg Oral 2 times per day on Tuesday Eduarda Alejandre MD 5 mg at 07/24/25 1339 naLOXone (NARCAN) injection 0.4 mg 0.4 mg Intravenous PRN JOSE Mills ondansetron (ZOFRAN) injection 4 mg 4 mg Intravenous Q8H PRN JOSE Mills polyethylene glycol (GLYCOLAX) packet 17 g 17 g Oral Daily PRN JOSE Mills sertraline (ZOLOFT) tablet 50 mg 50 mg Oral Daily Dutch Cotton MD 50 mg at 07/25/25 0859 Tenapanor HCl (CKD) TABS 1 tablet 1 tablet Oral BID Ritika Morton NP 1 tablet at 07/25/25 0900 vancomycin pharmacy to dose placeholder Intravenous See Admin Instructions Ritika Morton NP vitamin B-12 (CYANOCOBALAMIN) tablet 1,000 mcg 1,000 mcg Oral nightly Dutch Cotton MD 1,000 mcg at 07/24/252010 Review of patient's allergies indicates: Allergen Reactions Sulfa Antibiotics Unknown Wellbutrin [Bupropion] Unknown Per [place] documentation Principal Problem: Severe sepsis (CMS/HCC [facility]/HCC) SNOMED CT(R): SEPSIS Social History Tobacco Use Smoking status: Never Smokeless tobacco: Never Substance Use Topics Alcohol use: No Objective: Filed Vitals: 07/25/25 0537 07/25/25 0748 07/25/25 0951 07/25/25 1126 BP: 105/72 101/59 111/84 Pulse: (!) 113 (!) 108 87 Resp: 15 17 Temp: 97.7 ??F (36.5 ??C) 98.1 ??F (36.7 ??C) TempSrc: Oral Oral SpO2: 96% 91% 98% 97% Weight: Height: Intermittent/Straight Cath (mL): 50 mL Physical Exam: -GENERAL: no apparent distress; on O2 NC -EYES: Extraocular movements intact -LUNG: coarse breath sounds -CVS: Regular rate rhythm, systolic murmur -ABDOMEN: Soft, nontender -Musculoskeletal / EXT: legs edema up to thighs and hips, left arm AVF with bruit, deep to palpate -NEURO: AAOx3 LABs I reviewed labs Recent Labs Lab 07/22/25112607/23/2542 07/24/25 0553 07/25/25 0601 NA 134* 137 137 138 K 6.1* 4.2 4.2 4.0 CL 99 101 101 102 CO2 25.2 27.1 26.3 27.9 AGAP 9.8 8.9 9.7 8.1 BUN 54* 29* 43* 31* CR 5.43* 3.19* 4.29* 3.52* BUNCREATININ 9.9 9.1 10.0 8.8 GLU 144* 66* 129* 125* CA 10.3* 9.9 9.5 10.0 MAGNESIUM 2.0 1.9 -- -- PHOS -- -- 7.4* -- Recent Labs Lab 07/22/25112607/23/25 0542 07/24/25 0553 07/25/25 0601 WBC 9.33 7.44 7.10 6.04 RBC 3.23* 2.90* 2.95* 2.88* HGB 9.5* 8.4* 8.7* 8.4* HCT 32.0* 28.4* 29.5* 28.9* MCV 99.1* 97.9 100.0* 100.3* MCH 29.4 29.0 29.5 29.2 MCHC 29.7* 29.6* 29.5* 29.1* PLT 277 254 242 244 RDW 15.8* 15.9* 16.0* 16.2* MPV 10.0 10.0 10.2 10.2 Assessment/Plan: Mrs. Adler a 76 y.o female with hx ESRD on chronic HD MWF, breast cancer, A.fib, Hypertension, DM, hx of seizure, nephrolithiasis, CHF. -patient went to dialysis today but had fever and AMS for which was sent here. She is a resident [facility]. -recent admission [facility]; treated for UTI / pseudomonas with Abx. -chest imaging showed no PE. It showed opacitiy over the left lung field, small left pleural effusion, cardiomegaly. ---ESRD on chronic HD MWF. Hyperkalemia on admission; s/p lokelma and dialysis on admission with improvement of K. S/p HD yesterday with 2L UF. Plan for HD tomorrow per regular schedule. On added midodrine for hypotension, adding nephrocaps, adding lasix on non-HD days ---A.fib with RVR; on metoprolol ---legs edema and pain; doppler US was negative for DVT but limited study ---suspected PMA with fever; on Abx per primary team ---DM; on insulin; management per primary team ---Anemia of CKD. Probably on lonc acting CHELITA as outpatient. added CHELITA with HD . Hg at 8.4 EDUARDA ALEJANDRE MD 07/25/2025 * Che Kenney RN - 07/25/2025 12:32 AM CDT Problem: Discharge Planning Goal: Knowledge of discharge instructions Outcome: Progressing Problem: Pain control/comfort Goal: Promote pain control/comfort Outcome: Progressing Problem: Skin integrity, at risk Goal: Absence of new skin breakdown Outcome: Progressing Problem: Reduced risk for falls/injury Goal: Reduced Risk for Falls/Injury Outcome: Progressing Goal: Reduced Risk of Confusion (Acute vs Chronic) Outcome: Progressing Goal: Reduced Risk of Symptomatic Depression Outcome: Progressing Goal: Reduced Risk of Altered Elimination Outcome: Progressing Goal: Reduced Risk of Dizziness/Vertigo/Balance Outcome: Progressing Goal: Reduced Risk of Polypharmacy Outcome: Progressing Problem: Infection - Risk of, Central Venous Catheter-Associated Bloodstream Infection Goal: Absence of Central Venous Catheter Associated Bloodstream Infection Signs and Symptoms Outcome: Progressing Problem: Discharge Planning Goal: Knowledge of discharge instructions Outcome: Progressing Problem: Body Temperature - Risk of, Imbalanced Goal: Body temperature within specified parameters Outcome: Progressing Problem: Venous Thromboembolism - Risk of Goal: Absence of venous thromboembolism Outcome: Progressing * Eduarda Alejandre MD - 07/24/2025 5:01 PM CDT Zander Adler is a 80-year-old female patient. Dialysis note Reason for Follow Up: ESRD on HD, hyperkalemia Subjective: Mrs. Adler is awake and talking today; much better than last 2 days. She denied cough, fever, CP, SOB, nausea Current Facility-Administered Medications Medication Dose Route Frequency Provider Last Rate Last Admin acetaminophen (TYLENOL) tablet 650 mg 650 mg Oral Q4H PRN JOSE Mills 650 mg at 07/24/25 1641 Or acetaminophen (TYLENOL) suppository 650 mg 650 mg Rectal Q4H PRN JOSE Mills apixaban (ELIQUIS) tablet 5 mg 5 mg Oral BID Dutch Cotton MD 5 mg at 07/24/25 0759 ARIPiprazole (ABILIFY) tablet 3 mg 3 mg Oral nightly Dutch Cotton MD 3 mg at 07/23/25 2116 busPIRone (BUSPAR) tablet 5 mg 5 mg Oral TID Dutch Cotton MD 5 mg at 07/24/25 1641 ceFEPIme (MAXIPIME) 1 g in sodium chloride 0.9 % 50 mL IVPB 1 g Intravenous Q24H JOSE Mills Stopped at 07/23/252023 epoetin saira-epbx (RETACRIT) injection 10,000 Units 10,000 Units Intravenous Once per day on Tuesday Ritika Morton NP 10,000 Units at 07/24/25 1027 ferrous sulfate EC tablet 324 mg 324 mg Oral Once per day on Tuesday Dutch Cotton MD 324 mg at 07/24/25 0803 HYDROcodone-acetaminophen (NORCO) 5-325 MG tablet 1 tablet 1 tablet Oral Q6H PRN JOSE Mills HYDROmorphone (DILAUDID) injection 0.2 mg 0.2 mg Intravenous Q3H PRN JOSE Mills 0.2 mg at 07/22/25 1502 insulin lispro (HUMALOG/ADMELOG) injection 0-16 Units 0-16 Units Subcutaneous TID AC Dutch Cotton MD 6 Units at 07/24/25 1642 And insulin lispro (HUMALOG/ADMELOG) injection 0-8 Units 0-8 Units Subcutaneous Nightly at bedtime Dutch Cotton MD ipratropium-albuterol (DUONEB) 0.5-2.5 (3) MG/3ML nebulizer solution 3 mL 3 mL Nebulization Q4H PRNDutch Cotton MD methylphenidate (RITALIN) tablet 10 mg 10 mg Oral BID Dutch Cotton MD 10 mg at 07/24/25 1339 metoprolol tartrate (LOPRESSOR) tablet 12.5 mg 12.5 mg Oral BID Cher Carrillo MD 12.5 mg at 07/24/25 0759 midodrine (PROAMATINE) tablet 5 mg 5 mg Oral 2 times per day on Tuesday Eduarda Alejandre MD 5 mg at 07/24/25 1339 naLOXone (NARCAN) injection 0.4 mg 0.4 mg Intravenous PRN JOSE Mills ondansetron (ZOFRAN) injection 4 mg 4 mg Intravenous Q8H PRN JOSE Mills polyethylene glycol (GLYCOLAX) packet 17 g 17 g Oral Daily PRN JOSE Mills sertraline (ZOLOFT) tablet 50 mg 50 mg Oral Daily Dutch Cotton MD 50 mg at 07/24/25 0759 Tenapanor HCl (CKD) TABS 1 tablet 1 tablet Oral BID Ritika Morton, ESCROW MANAGER 1 tablet at 07/24/25 1651 vancomycin (VANCOCIN) 1,000 mg in sodium chloride 0.9 % 250 mL IVPB 1,000 mg Intravenous Once Ritika Morton NP 300 mL/hr at 07/24/25 1642 1,000 mg at 07/24/25 1642 vancomycin pharmacy to dose placeholder Intravenous See Admin Instructions Ritika Morton NP vitamin B-12 (CYANOCOBALAMIN) tablet 1,000 mcg 1,000 mcg Oral nightly Dutch Cotton MD 1,000 mcg at 07/23/252116 Review of patient's allergies indicates: Allergen Reactions Sulfa Antibiotics Unknown Wellbutrin [Bupropion] Unknown Per [place] documentation Principal Problem: Severe sepsis ([facility]) SNOMED CT(R): SEPSIS Social History Tobacco Use Smoking status: Never Smokeless tobacco: Never Substance Use Topics Alcohol use: No Objective: Filed Vitals: 07/24/25 1115 07/24/25 1130 07/24/25 1151 07/24/25 1200 BP: 103/56 114/63 115/64 100/42 Pulse: (!) 105 98 96 92 Resp: 16 Temp: 98.6 ??F (37 ??C) TempSrc: Oral SpO2: Weight: Height: Intermittent/Straight Cath (mL): 50 mL Physical Exam: -GENERAL: no apparent distress; on O2 NC -EYES: Extraocular movements intact -LUNG: coarse breath sounds -CVS: Regular rate rhythm, systolic murmur -ABDOMEN: Soft, nondistended -Musculoskeletal / EXT: legs edema up to thighs and hips, left arm AVF with bruit, deep to palpate -NEURO: AAOx3 LABs I reviewed labs Recent Labs Lab 07/22/25 1127 07/23/25 0542 07/24/25 0553 NA 134* 137 137 K 6.1* 4.2 4.2 CL 99 101 101 CO2 25.2 27.1 26.3 AGAP 9.8 8.9 9.7 BUN 54* 29* 43* CR 5.43* 3.19* 4.29* BUNCREATININ 9.9 9.1 10.0 GLU 144* 66* 129* CA 10.3* 9.9 9.5 MAGNESIUM 2.0 1.9 -- PHOS -- -- 7.4* Recent Labs Lab 07/22/25 1127 07/23/25 0542 07/24/25 0553 WBC 9.33 7.44 7.10 RBC 3.23* 2.90* 2.95* HGB 9.5* 8.4* 8.7* HCT 32.0* 28.4* 29.5* MCV 99.1* 97.9 100.0* MCH 29.4 29.0 29.5 MCHC 29.7* 29.6* 29.5* PLT 277 254 242 RDW 15.8* 15.9* 16.0* MPV 10.0 10.0 10.2 Assessment/Plan: Mrs. Adler a 76 y.o female with hx ESRD on chronic HD MWF, breast cancer, A.fib, Hypertension, DM, hx of seizure, nephrolithiasis, CHF. -patient went to dialysis today but had fever and AMS for which was sent here. She is a resident [facility]. -recent admission to [facility]; treated for UTI / pseudomonas with Abx. -chest imaging showed no PE. It showed opacitiy over the left lung field, small left pleural effusion, cardiomegaly. ---ESRD on chronic HD MWF. Hyperkalemia on admission; s/p lokelma and dialysis on admission with improvement of K. Plan for HD today. Difficulty cannulating the AVF for which using the perm cath today. K at 4.2. Patient was seen and examined during HD. added midodrine for hypotension. AMS is muchbetter ---A.fib with RVR; on metoprolol ---legs edema and pain; doppler US was negative for DVT but limited study ---suspected PMA with fever; on Abx per primary team ---DM; on insulin; management per primary team ---Anemia of CKD. Probably on lonc acting CHELITA as outpatient. added CHELITA with HD EDUARDA ALEJANDRE MD 07/24/2025 * Darcy Kaplan OT - 07/24/2025 3:32 PM CDT 07/24/25 1500 Therapy Visit Reason for admission DX: severe sepsis Ordering Provider JOSE Bennett Subjective Subjective [id number] Patient off the floor to dialysis. Will attempt OT evaluation at a later date/time. * Lulu Perera RN - 07/24/2025 2:21 PM CDT 07/24/25 1420 Interdisciplinary Group Conference Team Members Present Physician;Case/Care management;Nursing;Pharmacy Patient Current Status Paient current status Inpatient Barriers to Discharge Inpatient Review Barriers to Discharge Inpatient Pending Therapy PT/OT Patient expects to be discharged to Patient expects to be discharged to: [facility] Facility( SNF) Plan to discharge in 1-2 days. Pt with RVR. Cards consulted. Weaning O2. Pt is LTC at [facility]. Pt will plan to return SNF vs LTC. Pending PT/OT. * Kapil Tijerina, PT - 07/24/2025 10:59 AM CDT 07/24/25 1000 Therapy Visit Ordering Provider JOSE Bennett Subjective [id number] Patient off the floor to dialysis. Will attempt PT evaluation at a later date/time. Reason for admission DX: severe sepsis * Ritika Morton NP - 07/24/2025 9:02 AM CDT Images from the original note were not included. Hospitalist Daily Progress Note Subjective Patient seen and evaluated in HD. She tells me not to touch her feet because they hurt. Otherwise she has no complaints. No sob or cp. No n/v/abd pain. Breathing feels ok. Currently on 2L NC. HR ranging 100-110. Objective Filed Vitals: 07/24/25 0821 07/24/25 0830 07/24/25 0845 07/24/25 0900 BP: 120/61 117/54 111/57 110/70 Pulse: (!) 110 (!) 119 (!) 115 (!) 106 Resp: Temp: TempSrc: SpO2: Weight: Height: Intake/Output 24H Total: Intake/Output Summary (Last 24 hours) at 07/24/2025 0903 Last data filed at 07/24/2025 0800 Gross per 24 hour Intake 120 ml Output -- Net 120 ml Physical Exam: -GENERAL: No acute distress, ill appearing -HEAD: Normocephalic, Atraumatic -EYES: Extraocular movements intact -LUNGS: diminished bilaterally, No wheezes, No crackles, No rhonchi; on 2L NC -CVS: irregular rhythm, tachycardic, S1 and S2 normal -ABDOMEN: Soft, Non tender, Non distended -EXT: 1-2+ edema, tender to touch -NEURO: Awake, alert, oriented, No gross neuro deficits -SKIN: No significant rashes Medications apixaban 5 mg Oral BID ARIPiprazole 3 mg Oral nightly busPIRone 5 mg Oral TID cefepime 1 g Intravenous Q24H epoetin saira 10,000 Units Intravenous Once per day on Tuesday ferrous sulfate EC 324 mg Oral Once per day on Tuesday insulin lispro 0-16 Units Subcutaneous TID AC And insulin lispro 0-8 Units Subcutaneous Nightly at bedtime methylphenidate 10 mg Oral BID metoprolol tartrate 12.5 mg Oral BID midodrine 5 mg Oral 2 times per day on Tuesday sertraline 50 mg Oral Daily Tenapanor HCl (CKD) 1 tablet Oral BID vitamin B-12 1,000 mcg Oral nightly acetaminophen OR acetaminophen, HYDROcodone-acetaminophen, HYDROmorphone, ipratropium-albuterol, naLOXone, ondansetron, polyethylene glycol Labs, Imaging, Other Studies Recent Labs Lab 07/22/25 1127 07/23/25 0542 07/24/25 0553 WBC 9.33 7.44 7.10 RBC 3.23* 2.90* 2.95* HGB 9.5* 8.4* 8.7* HCT 32.0* 28.4* 29.5* MCV 99.1* 97.9 100.0* MCH 29.4 29.0 29.5 MCHC 29.7* 29.6* 29.5* PLT 277 254 242 RDW 15.8* 15.9* 16.0* MPV 10.0 10.0 10.2 PERNEU 85.2 79.5 75.6 PERLYM 6.9 9.5 12.8 PERMON 6.2 7.0 8.5 NEUC 7.95* 5.91 5.37 LYMC 0.64* 0.71* 0.91* MONOC 0.58 0.52 0.60 EOSC 0.05 0.22 0.17 BASOC 0.04 0.04 0.02 DTYPE AUTOMATED DIFFERENTIAL AUTOMATED DIFFERENTIAL AUTOMATED DIFFERENTIAL Recent Labs Lab 07/22/25 1127 07/23/25 0542 07/24/25 0553 NA 134* 137 137 K 6.1* 4.2 4.2 CL 99 101 101 CO2 25.2 27.1 26.3 AGAP 9.8 8.9 9.7 BUN 54* 29* 43* CR 5.43* 3.19* 4.29* BUNCREATININ 9.9 9.1 10.0 GLU 144* 66* 129* CA 10.3* 9.9 9.5 TP 6.9 6.0* 6.3* ALB 2.4* 2.1* 2.2* TBIL 0.7 0.8 0.9 ALKP 251* 219* 230* AST 130* 269* 139* ALT 69* 167* 143* Recent Labs Lab 07/23/25 0542 HGBA1C 7.4* TSH 2.910 No results for input(s): APTT, INR, PTT in the last 168 hours. Recent Labs Lab 07/22/25 1127 07/22/25 1338 TROP 62* 56* Recent Labs Lab 07/22/25 1137 07/22/25 1338 07/22/25 1633 07/23/25 0542 07/24/25 0553 LACTICACID 3.4* 2.8* 2.0 -- -- PROCT -- -- -- 0.91* 0.88* No results for input(s): PH, PCO2, PO2, [id number], BICARBWB, BASEDEFICIT, BASEEXCESS in the last 168 hours. No results found for this or any previous visit. Imaging XR FOOT RT 2V Result Date: 07/24/2025 [facility] [address] [place], [place] [address] Examination: XR FOOT RT 2V Exam time: 07/23/2025 5:35 PM Clinical history: Right great toe pain. Comparison:None. Technique: AP and lateral views of the right foot obtained portably. Findings: The bones are diffusely demineralized. Soft tissue swelling overlies the medial aspect of the hindfoot. Mild osteoarthritis affects the first metatarsophalangeal joint. There is mild scattered interphalangeal joint osteoarthritis. Mild to moderate osteoarthritis affects the midfoot. Plantar and posterior calcaneal enthesophytes are noted. No radiographic evidence is seen to suggest acute fracture or malalignment of the bones of the right foot. There are atherosclerotic calcifications. Amorphous calcifications posterior and anterior to the lower leg are nonspecific but could be related to prior injury. There are hammertoe deformities of the lesser toes. IMPRESSION: 1. Diffusely demineralized bones without evidence to suggest acute fracture or malalignment of the bones of the right foot. 2. Osteoarthritis as above. 3. Soft tissue swelling overlying the medial aspect of the hindfoot. Referred By: Interpreted By: Jac Lara DO, 07/24/2025 2:12 AM USV CLINT DUPLEX LOW EXT JONATAN Result Date: 07/23/2025 VENOUS DUPLEX IMAGING BILATERAL LOWER EXTREMITY VASCULAR LAB Pat.Name: ZANDER ADLER Britany.ID: [id number] .Date: 07/22/2025 Refer.: [id number], Live zhang Exam Time: 3:33:00 PM Study Type:SHANON VS Venous Duplex Legs JONATAN Height: 67 in Age: 9 1945,80Y Sex: F Sonogrphr: Best Eddy RDMS,RVT History / Clinical:BLE edema Procedures: Linda scale, Color Doppler imaging, Doppler Spectral Analysis Race: W ++++++++++++++++++++++++++++++++++++ SUMMARY: ++++++++++++++++++++++++++++++++++++ Right leg: There are NO apparent, deep or superficial vein, ACUTE character venous filling defects visualized in the common femoral, proximal deep femoral, femoral, popliteal, gastrocnemius, posterior tibial, peroneal, great saphenousveins. Resting venous flow is phasic and significantly pulsatile. Left leg: There are NO apparent, deep or superficial vein, ACUTE character venous filling defects visualized in the common femoral, proximal deep femoral, femoral, popliteal, gastrocnemius, posterior tibial, peroneal, great saphenousveins. Resting venous flow is phasic and significantly pulsatile. Limited exam bilaterally due to patients condition, lower extremity swelling, and patients pain tolerance with compression. CONCLUSION: Limited exam bilaterally due to patients condition, lower extremity swelling, and patients pain tolerance with compression. No evidence of acute DVT or SVT seen in the bilateral lower extrmities. Pulsatile venous flows are suggestive of central venous hypertension (CHF, pulmonary HTN, right heart failure), though this may be a normal finding in a young, healthy patient. <Electronic Signature> 07/23/2025 09:59 PM Nikhil Andrews M.D. USE ECHOCARDIOGRAM W CON Result Date: 07/23/2025 Echocardiography Report Pat.Name: ZANDER ADLER [facility].ID: [id number] St.Date: 07/23/2025 Exam Time:1:08:00 PM Study Type:ECHO WITH CARDIAC DOPPLER COMP Height: 66 in Weight: 270 lb BSA: 2.27 m2 Age: 9 1945,80Y Sex: F BP: 109/52 HR: 107 bpm Sonogrphr: Whitney Velazquez [facility] Pat. Stat.:Inpatient[facility] Reason for Study:Congestive heart failure History / Clinical:BLE edema Procedures: 2D, M-mode, Doppler, Color Flow, Definity was used to enhance endocardial definition. The study quality istechnically difficult. Race: W ++++++++++++++++++++++++++++++++++++ SUMMARY: +++++++++++++++++++++++ +++++++++++++ Left ventricle is normal in size with low normal systolic function Estimated EF of 50-55% Moderate LVH Right ventricle is enlarged with low normal systolic function Moderate to severe aortic stenosis Mild to moderate mitral and pulmonic regurgitation Moderate tricuspid regurgitation Moderate pulmonary hypertension. Mildly dilated ascending aorta. ++++++++++++++++++++++++++++++++++++FINDINGS: ++++++++++++++++++++++++++++++++++++ LV: The left ventricular size is normal. The left ventricular systolic function is lower limits of normal. Estimated left ventricular ejection fraction is 50-55%. Moderate concentric left ventricular hypertrophy. Left ventricular diastolic function is not reliably assessed. WM: Wall motion appears normal in all segments. RV: The right ventricular size is mild to moderately enlarged. Right ventricular systolic function is at the lower limit of normal. IVS: No evidence of ventricular septal defect. LA: The left atrial volume is severely increased (>48 ml/M2). RA: Right atrial size is mildly enlarged. IAS: Atrial septum appears intact. WILNER: No evidence of pericardial effusion. AO: The sinus of Valsalva measures 3.9cm. The proximal ascendingaorta measures 4.1cm. PA: Estimated right atrial pressure of 8 mmHg. SVn: Inferior vena cava is notdilated. Inferior vena cava shows <50% collapse with respiration consistent with elevated right atrial pressure. AV: The aortic valve is trileaflet. Moderate to severe aortic valve stenosis. The peak velocity across the aortic valve measures 4.19m/sec with a peak gradient of 70mmHg and a mean gr adient of 40mmHg. The calculated aortic valve area is 0.9cm2. No evidence of aortic valve regurgitation. Moderate to severe calcification of aortic valve leaflets. MV: Mild to moderate mitral regurgitation. No evidence of mitral stenosis. Moderate thickening of mitral valve leaflets. PV: No evidence of pulmonic valve stenosis. Mild to moderate pulmonic regurgitation. TV: Moderate tricuspid regurgitation. Right ventricular systolic pressure is 50-60 mmHg suggestive of moderate pulmonary hypertension. No evidence of tricuspid valve stenosis. ++++++++++++++++++++++++++++++++++++ MEASUREMENTS: ++ ++++++++++++++++++++++++++++++++++ DOPPLER LVOT LVOTpkPG 6 mmHg LVOTmnPG 3 mmHg LVOTpkVel 127 cm/s (70-110)+* LVOT SV 69 ml LVOT TVI 22 cm Right Atrium RA Press 8 mmHg Rasmussen's Disk 20 AV Forward Flow AV TVI 75 cm AV pkPG 61 mmHg AV pkVel 392 cm/s (100-170)+* Area (TVI) 0.92 cm2 (3-5)* AV mnPG 36mmHg Area (Lee) 1.02 cm2 (3-5)* MV Forward Flow MV DeTm 194 msec MV P1/2t 57 msec (30-60)+ MVA P1/2t 3.86 cm2 (4-6)* MV pkE 155 cm/s (60-130)+* PV Forward Flow PV pkVel 107 cm/s (60-90)+* PV AC 89 msec PV pkPG 5 mmHg TV Regurg Flow TV pkPG 50 mmHg TV pkVel 354 cm/s (30-70)* Right Ventricle RVsys P 58 mmHg Right Ventricle 10.9 cm/s Lat E' Lat e 13.5 cm/s Lat E/E' Lat E/e 11.5 Med E' Med e 8.44 cm/s Med E/E' Med E/e 18.4 Aortic Valve Aortic Valve Ar 0.41 Aortic Valve Ve 0.32 AV DI Value 0.29 LeftVentricle LV IVRT 33 msec PV Antegrade Flow Acceleration Sl 1030 cm/s2 2D Left Ventricle LVIDd 5.13 cm (3.6-5.2) LV ESV 23.2 ml LVIDs 3.87 cm (2.3-3.9) LV ESV 53.7 ml LngAxd 7.61 cm LVESV BP 35.2 ml LngAxd 7.93 cm LV EF 57.4 % LV EDV 54.5 ml LV EF 53.3 % LV EDV 115 ml LV EF BP 56.4 % LVEDV BP 80.7 ml LV SV 31.3 ml LngAxs 6.53 cm LV SV 61.3 ml LngAxs 6.64 cm LV SV BP 45.5 ml LVPW LVPWd 1.38 cm Ventricular Septum IVSd 1.39 cm Left Atrium LA VOLBP 179 ml Aorta Ao Rtd 3.9 cm Ao Asc 4.1 cm (2.1-3.4)* LVOT LVOT 2 cm LVOTArea 3.14 cm2 Ratios IVS Inferior vena cava IVC Diam 17.9 mm LA Biplane LAVol I BP 78.9 ml/m2 RA Single Plane Right Atrium MO 17.7 mm Right Atrium Sy 71.1 ml Right Atrium Sy 61.4 mm Right Atrium Sy 31.3 ml/m2 Right Atrium Sy 22.6 cm2 Right Ventricle Right Ventricle 45.6 mm Right Ventricle 38.3 mm [place] Point [place] 68.2 mm MMODE TA Tricuspid Annul 15.2 mm <Electronic Signature> 07/23/2025 03:59 PM Real Hodges M.D. 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 PULMONARY EMBOLUS PROTOCOL CLINICAL INDICATION: 80-year-old female. Reason for examination: Nodule in the right upper lobe. Possible atypical pneumonia, atrial fibrillation look for pulmonary embolus. Abnormal chest x-ray . TECHNIQUE: CT acquisition was performed according to the standard protocol from the aortic arch to the upper abdomen during the pulmonary enhancement phase of an intravenous contrast bolus of 80 cc of Isovue 370. Intravenous contrast injected into indwelling access in the right antecubital fossa. No adverse contrast reaction reported. Additional coronal 3-D reconstructions and postprocessing volume rendered MIP vascular images of the pulmonary arteries was performed. Dose lowering technique was used for this study which may include, but is not limited to, dose reduction techniques, automated exposure control, use of iterative reconstruction and ALARA (As low As Reasonably Achievable)/Image Gently techniques. COMPARISON: Portable AP view of the chest07/22/2025 and 01/11/2024 CT of the chest without contrast 07/18/2016 and 07/11/2016 Thyroid ultrasound07/14/2016 CT cervical spine without contrast 04/12/2022 Nuclear medicine VQ scan 07/11/2016 FINDINGS:The study was technically adequate to the lobar level only. No intraluminal filling defects, wall th ickening, or thrombus is present in the pulmonary arterial vascular tree to the lobar level suggestpulmonary embolus . A segmental or subsegmental pulmonary embolus would not be seen on this study due to respiratory motion and a small, renal preserving bolus. Lower neck/chest soft tissues: The partially calcified lesion in the right upper chest right lower neck supraclavicular region is redemonstrated and is seen to be large calcified right thyroid nodule, stable evaluated and noted since 2016. Most recently nearly identical appearance on CT of the cervical spine. Today this measures 4.1 x 2.7 x 3.8 cm similar to that documented on the thyroid ultrasound of 2016. Additional calcified and no ncalcified nodules in the enlarged left and right lobe of the thyroid in keeping with the given diagnosis of previous imaging of multinodular goiter. There are scattered calcifications throughout theleft and right breast tissues. Might consider referral to breast imaging Center for further evaluation Numerous spiderlike opacified ectatic superficial right breast wall and right subclavian and axillary vein varicosities may be sequela of right upper extremity AV fistula. Lungs/pleura: There is asmall left pleural effusion and overlying larger area of dense consolidation and atelectasis suspect for infectious inflammatory consolidative pneumonia involving the lingula and the left lower lobe.Left upper lobe clear and the right lung is clear. There is subtle dependent interlobular septal thickening hazy posterior groundglass opacity which could represent mild pulmonary edema or reflectiveof fluid/volume overload. Heart/great vessels/aorta: Stable measured ectasia ascending aorta maximal diameter 40 mm unchanged since 2016. Normal caliber aortic arch descending aorta and suprarenal aorta. Widespread calcific atherosclerosis of the aorta and heavy plaque at the ostia the celiac trunkand SMA and right and left renal arteries has increased since 2016. Since December 2023 the patient has received of right IJ hemodialysis catheter and the tips are in good position at the right atrial SVC junction. Mild cardiomegaly due to four-chamber enlargement. Aortic valve and coronary artery calcifications. Small, 8mm probably physiologic pericardial effusion. Mild hepatic venous reflux probably chronically elevated right heart pressures or fluid/volume overload. Mediastinum/itzel: There is no mediastinal or hilar or axillary lymphadenopathy. Esophagus unremarkable. No evidence of thoracic aortic dissection. Upper abdomen: Scattered granulomata throughout the liver and spleen mild diffuse hepatic steatosis. Status post cholecystectomy. Tiny bilateral atrophic kidneys. Calcified enlargedright adrenal gland, likely calcified adenoma unchanged since 2016. Small hypodense left adrenal gland nodule also unchanged since 2016, probably stable adenoma. Bone window imaging: No acute or pathologic bony abnormality. Widespread diminished bone density exaggeration thoracic kyphosis long segment anterior longitudinal ligament calcification may be DISH.. IMPRESSION: 1. No CT evidence of pulmonary embolus to the lobar level as above 2. Large area of consolidative opacity left lower lobe probably infectious inflammatory consolidative pneumonia. 3. Small, probably associated left pleural effusion 4. Mild findings suggestive of dependent pulmonary edema or could be fluid/volume overload 5. The calcified lesion in the right upper lung is seen to be calcified thyroid nodule. Additional stable findings of multinodular goiter. 6. Cardiomegaly with small possibly physiologic pericardial effusion. 7. Stable large calcified right adrenal adenoma and small left adrenal adenoma 8. Scattered calcifications more numerous in the left than the right breast;might consider referral to breast imaging Center for further evaluation 9. Right upper extremity opacified ectatic venous varicosities from the subclavian and axillary veins may be related to prior right upper extremity AV fistula. This should be confirmed in the medical record. Referred By: Interpreted By: Deborah Sexton DO, 07/22/2025 3:[address] HEAD WO CON Result Date: 07/22/2025 [facility] [address] [place], [place] [address] EXAM: CT HEAD WO CON DATE: 07/22/2025 12:27 PM INDICATION: Altered mental status. TECHNIQUE: Transverse images through the head were obtained without intravenous contrast. A radiation dose lowering technique was used for this procedure, which may include, but is not limited to, dose reduction technique, automated exposure control, the use of iterative reconstruction, ALARA (As Low As Reasonably Achievable) techniques, and Image Gently techniques. COMPARISON: CT head 01/07/2024 FINDINGS: Motion degraded examination despite repeated imaging, limiting the sensitivity of this exam. There is no evidence of acute intracranial hemorrhage. No evidence of abnormal intra or extra axial fluid collections. The ventricles in extra-axial spaces are mildly prominent compatible with global volume loss and similar to prior. No evidence of mass, mass effect, or midline shift. Diffuse low-density within the white matter again consistent with chronic microangiopathy, similar to prior. No definite CT findings of acute territorial infarction, within limitations of motion. No calvarial fracture is seen. Diffuse permeative appearance of the calvarium. Diffuse opacification of the left maxillary sinus. Bilateral mastoid air cell effusion. The globes and orbits are symmetric and grossly unremarkable. IMPRESSION: 1. Motion degraded examination despite repeated imaging, limiting the sensitivity of this exam. 2. No definite CT findings of acute territorial infarction, within limitations of motion. 3. Senescent changes of global volume loss and chronic microangiopathy. 4. Diffuse permeative appearance of the calvarium. This is nonspecific but given the history of ESRD with hemodialysis this likely is secondary to renal osteodystrophy. 5. Diffuse opacification of the left maxillary sinus. Bilateral mastoid air cell effusion. Ordered By: HEATHER GUEVARA Interpreted By: Irvin Hernandez MD, 07/22/2025 12:52 PM XR CHEST PORTABLE Result Date: 07/22/[address] [address] IMAGINGSTUDIES: XR CHEST PORTABLE DATE: 07/22/2025 11:40 AM HISTORY: new o2 requirement 72-year-old female.Altered mental status during dialysis. Reported temperature of 100.3 prior to dialysis treatment 1 (did not receive dialysis today). Patient's daughter reports the patient was released from [facility] on 07/[facility]2025 after treatment for urinary tract infection. COMPARISON: Chest portable 01/11/2024 and 01/07/2024. DISCUSSION: Portable AP upright view of the chest. Rightward rotated. 2.8 x 2.6 cmpartially calcified lesion projecting in the right upper chest and right lower neck/supraclavicular region which is not evident on the prior studies. Differential diagnosis would primarily include calcified enlarged lymph node or potential progression of vascular calcification. Right chest tunneleddialysis catheter with tip in the inferior right atrium is new since 01/11/2024. Stable cardiomegaly. No acute pulmonary vascular congestion. Aortic atherosclerotic calcifications. Low lung volumes but similar to prior studies. Chronic bilateral lung parenchymal scarring and pleural scarring. No appreciable significant pulmonary infiltrate or consolidation. No apparent pleural effusion or pneumothorax. Degenerative changes spine and shoulders. IMPRESSION: 1. Cardiomegaly. No acute pulmonary vascular congestion. Tunneled right chest dialysis catheter is new since 01/11/2024. 2. No apparent new pulmonary infiltrate or consolidation. 3. Partially calcified 2.8 cm lesion projecting in the right upper chest to right lower neck is not evident on 2023 radiographs. Could be further evaluated on nonemergent elective CT if clinically indicated. Ordered By: HEATHER GUEVARA Interpreted By: Aron Aguilar, 07/22/2025 12:08 PM EKG: Results for orders placed or performed during the hospital encounter of 07/22/25 ECG [address] 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1945 Requested By: HEATHER GUEVARA Order Number: [id number] Reading MD: German Stevens Measurements Intervals Point [place] Rate: 137 P: 0 UT: 0 QRS: -18 QRSD: 111 T: 68 QT: 295 QTc: 446 Interpretive Statements ATRIAL FIBRILLATION WITH RAPID VENTRICULAR RESPONSE POSSIBLE LATERAL MYOCARDIAL INFARCTION , OF INDETERMINATE AGE [30 ms Q WAVE IN I/aVL/V5/V6] Compared to ECG 07/17/2024 13:56:11 No significant changes Assessment & Plan Sepsis due to suspected HAP pneumonia pt admitted recently at [place] lives in SNF and does HD Presented fever, chills with cough/URI s/s for about 1 week Lactate 3.4, trend Source: suspected HAP CXR showed new RUL lesions, considering atypicals Legionella negative UA 500 LE, negative nitrites, > 100 WBC, RBCs Blood cultures (07/22) NGTD2 Urine culture shows 1k-9k col/ml etienne albicans Received 500 IV fluid bolus, continue cautions IV fluids goal 30 mg/kg but limited due to dialysis IV antibiotics vancomycin and cefepime, monitor for toxicity MRSA swab positive Consider aspiration. 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 The pt does not exhibit any overt coughing or throat clearing; No immediate concern foracute dysphagia. CT chest LLL opacity concerning for consolidative PNA, small L pleural effusion PCT 0.91 > 0.88 Acute hypoxic respiratory failure With tachypnea 2/2 PNA Supported on O2 at 2 L with sats in the mid 90s. Without oxygen she dropped as low as the 80s Wean O2 as able, maintain O2 saturations > 90% IS/Acapella BLE edema / pain Pt has extreme swelling to BLE with hardening to the soft tissues noted by her daughter Ongoing and worsening for a couple weeks. VDUS BLE negative for DVT/SVT Check ABIs Consider additional diuresis during dialysis Hyperkalemia requiring monitoring and treatment: Resolved 6.1. Given Lokelma but patient not taking POs well. 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 Patient was given 1 1 bolus of 500. ESRDlimiting fluid resuscitation Pressures remained stable Anticoagulated with Eliquis Rate control with BB Cardiology consulted, appreciate assistance -- Would not aggressively treat right now, given HRs seem to be in general < 120. Can consider adding amio or dilt, if needed, if HRs remain above 100 prior to discharge. Sinusitis Noted on CT Incidental breast calcifications Seen on CT: Scattered calcifications more numerous in the left than the right breast; might consider referral to breast imaging center for further evaluation Will need PCP follow up if not already addressed for further testing/imaging Left arm suture due to be removed, remove prior to d/c Dispo: pending clinical improvement, O2 wean, nephrology recs, back to SNF when ready RITIKA MORTON NP 07/24/2025 Cosigned by Nayla Figueroa MD at 07/24/2025 3:23 PM CDT * Che Kenney RN - 07/23/2025 11:58 PM CDT Problem: Discharge Planning Goal: Knowledge of discharge instructions Outcome: Progressing Problem: Pain control/comfort Goal: Promote pain control/comfort Outcome: Progressing Problem: Skin integrity, at risk Goal: Absence of new skin breakdown Outcome: Progressing Problem: Reduced risk for falls/injury Goal: Reduced Risk for Falls/Injury Outcome: Progressing Goal: Reduced Risk of Confusion (Acute vs Chronic) Outcome: Progressing Goal: Reduced Risk of Symptomatic Depression Outcome: Progressing Goal: Reduced Risk of Altered Elimination Outcome: Progressing Goal: Reduced Risk of Dizziness/Vertigo/Balance Outcome: Progressing Goal: Reduced Risk of Polypharmacy Outcome: Progressing Problem: Infection - Risk of, Central Venous Catheter-Associated Bloodstream Infection Goal: Absence of Central Venous Catheter Associated Bloodstream Infection Signs and Symptoms Outcome: Progressing Problem: Discharge Planning Goal: Knowledge of discharge instructions Outcome: Progressing Problem: Body Temperature - Risk of, Imbalanced Goal: Body temperature within specified parameters Outcome: Progressing Problem: Venous Thromboembolism - Risk of Goal: Absence of venous thromboembolism Outcome: Progressing * Carrie Mar - 07/23/2025 2:07 PM CDT 07/23/25 1407 Forms Reinforcement Important Message from Medicare (Subsequent IMM) Signed Copy delivered CM Infectious Disease Physician contacted patient's daughter per CM instruction. Patient's daughter gave verbal signature over the phone. Second copy of IMM was declined by patient's daughter. * Kayla Corrales LCSW - 07/23/2025 12:12 PM CDT 07/23/25 1212 Interdisciplinary Group Conference Team Members Present Physician;Case/Care management;Nursing;PT/OT;Pharmacy;Digital Account Supervisor Physician present for group conference Cotton Patient Current Status Paient current status Inpatient Barriers to Discharge Inpatient Review Barriers to Discharge Inpatient No Barrier- Medical Milestone in Process Patient expects to be discharged to Patient expects to be discharged to: [facility] Facility( SNF) Per discussion at rounds pt still has many more days before readiness.Cards consult likely this date. Pt may need auth if able to be skilled otherwise will just return as long-term pt to [facility]. * Nilda Sow, LIZZETH - 07/23/2025 10:59 AM CDT Department of Speech-Language Pathology Clinical Swallow Evaluation Report Episode of Care: Initial evaluation Diagnosis: Severe sepsis Referring Physician: Ana GARCIA Subjective: The pt is a 80 year old female referred to our service for swallowing evaluation due to pneumonia. The pt is intermittently awake as needed for trials of food but easily drifts back to sleep. I notice her RR to be quite high during periods of being awake- high 40's at times. Oxygen sat is normal. She is persistently reporting toe pain. Her daughter reports this has been worsening but has not beenchecked out. She tells me the pt's current diet is regular solids and thin liquids and she has not noticed any difficulty with that despite lack of dentition. No recent vomiting but copious amounts of sticky phlegm. She is quite hard of hearing. 2L nasal cannula. PPE: Gown and gloves secondary to contact isolation. Past Medical History[1] Objective: Oral Phase: The oral cavity is clear. She appears to possibly have geographic tongue pattern. She has no dentition and does not wear a denture. No asymmetry is noted with ROM but the pt has limited participationin this. The pt is given thin liquids, applesauce, fruit cup and cracker. Lip seal is intact. Transit is quick for applesauce and soft solids. The pt manipulates small cracker into a bolus but expectorates it instead of completing transit. Mild residue. Pharyngeal Phase: The pharyngeal phase is limited at the bedside and cannot diagnose aspiration. The pt does not exhibit any overt coughing or throat clearing. Laryngeal movement is consistent with bolus to swallow ratio at 1:1. No change in vocal quality. Trials are limited due to pt's pain and lethargy. Assessment: No immediate concern for acute dysphagia. Plan: Recommend regular solids/thin liquids., straw ok. Meds whole. Pt has history of stroke and dysphagia. Skilled ST to follow up in 2-3 business days for ongoing assessment with more p.o trials. AlertedRAna Luisa Aguirre, PCT Alcira and Dr. Cotton about pt's pain in toe. Appreciate this consult. 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[facility] CHF (congestive heart failure) ([facility]) CKD (chronic kidney disease), stage IV ([facility]) on dialysis Depression Diabetes ([facility]) Dysphagia Encephalopathy ESBL (extended spectrum beta-lactamase) producing bacteria infection Hearing loss Heart attack ([facility]) HLD (hyperlipidemia) Hypertension, essential Hypertensive urgency Insomnia Kidney stone MRSA (methicillin resistant Staphylococcus aureus) Nonrheumatic aortic (valve) insufficiency Osteoporosis PONV (postoperative nausea and vomiting) Pulmonary hypertension ([facility]) Seizure ([facility]) 06/06/2021 as per daugther Stable burst fracture of unspecified lumbar vertebra, subsequent encounter for fracture with delayed healing Stroke ([facility]) Unspecified dementia, unspecified severity, without behavioral disturbance, psychotic disturbance, mood disturbance, and anxiety ([facility]) Urinary retention UTI (urinary tract infection) Vitamin D deficiency * Kayla Corrales LCSW - 07/23/2025 8:36 AM CDT 07/23/25 0836 Asssesment Completed Type of Case Management assessment completed Adult Referral Data Source of Information Chart review Patient Information Primary Caregiver [facility] facility Current living Situation Other (Comment) Type of Residence Intermediate Facility Support System Immediate family Baseline ADL's Behavior Oriented Communication Talks Current Services Being Provided Outpt therapy Dialysis DC screening tool This is a screening tool it does not take the place of a physical or occupational therapy evaluation. The screening is to screen the patient for what services and destination would be beneficial for patient for next level of care Chart Review Based on the screening the DC plan for consideration is: Patient expects to be discharged to: [facility] Facility( SNF) This SW completed chart review this date for DCPA. Pt is listed as from [facility]. 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 They transport ptto dialysis MWF. No immediate needs noted, welfare case worker will continue to follow. Pt is MWF dialysis at [facility] at 10:30, facility transports. Dialysis liaison updated on admission. * Dutch Cotton MD - 07/23/2025 8:26 AM CDT Images from the original note were not included. Hospitalist Daily Progress Note Subjective Seen this morning. No acute events overnight. She reports she is uncomfortable and has pain all over. When asked to specify if pain is in the chest, abdomen, head, extremities she again reports that everywhere. Later was able to say that most of her pain is in her right great toe, XR ordered and pending. Noted to be in A-fib with heart rates in the low 100s to 120s. Objective Filed Vitals: 07/23/25 0041 07/23/25 0043 07/23/25 0425 07/23/25 0747 BP: 89/61 90/56 109/52 94/62 Pulse: (!) 107 (!) 118 (!) 107 (!) 127 Resp: 16 Temp: 98.6 ??F (37 ??C) 98.6 ??F (37 ??C) 98.4 ??F (36.9 ??C) 98.2 ??F (36.8 ??C) TempSrc: Oral SpO2: 94% 98% 96% Weight: 122.8 kg (270 lb 11.6 oz) Height: Intake/Output 24H Total: Intake/Output Summary (Last 24 hours) at 07/23/2025 0826 Last data filed at 07/22/2025 2200 Gross per 24 hour Intake 550 ml Output 1050 ml Net -500 ml Physical Exam: -GENERAL: No acute distress, ill appearing -HEAD: Normocephalic, Atraumatic -EYES: Extraocular movements intact -LUNGS: diminished bilaterally, No wheezes, No crackles, No rhonchi -CVS: Regular rate and rhythm, S1 and S2 normal -ABDOMEN: Soft, Non tender, Non distended -EXT: 1-2+ edema, tender to touch -NEURO: Awake, alert, oriented, No gross neuro deficits -SKIN: No significant rashes Medications apixaban 5 mg Oral BID ARIPiprazole 3 mg Oral nightly atorvastatin 20 mg Oral Daily busPIRone 5 mg Oral TID cefepime 1 g Intravenous Q24H [START ON 07/24/2025] ferrous sulfate EC 324 mg Oral Once per day on Tuesday methylphenidate 10 mg Oral BID metoprolol tartrate 25 mg Oral BID sertraline 50 mg Oral Daily vitamin B-12 1,000 mcg Oral nightly acetaminophen OR acetaminophen, HYDROcodone-acetaminophen, HYDROmorphone, ipratropium-albuterol, naLOXone, ondansetron, polyethylene glycol Labs, Imaging, Other Studies Recent Labs Lab 07/22/25 1127 07/23/25 0542 WBC 9.33 7.44 RBC 3.23* 2.90* HGB 9.5* 8.4* HCT 32.0* 28.4* MCV 99.1* 97.9 MCH 29.4 29.0 MCHC 29.7* 29.6* PLT 277 254 RDW 15.8* 15.9* MPV 10.0 10.0 PERNEU 85.2 79.5 PERLYM 6.9 9.5 PERMON 6.2 7.0 NEUC 7.95* 5.91 LYMC 0.64* 0.71* MONOC 0.58 0.52 EOSC 0.05 0.22 BASOC 0.04 0.04 DTYPE AUTOMATED DIFFERENTIAL AUTOMATED DIFFERENTIAL Recent Labs Lab 07/16/25 0943 07/22/257 07/23/25 0542 NA 131* 134* 137 K 4.9 6.1* 4.2 CL 97 99 101 CO2 28.1 25.2 27.1 AGAP 5.9 9.8 8.9 BUN 28* 54* 29* CR 3.67* 5.43* 3.19* BUNCREATININ 7.6 9.9 9.1 GLU 191* 144* 66* CA 9.1 10.3* 9.9 TP -- 6.9 6.0* ALB -- 2.4* 2.1* TBIL -- 0.7 0.8 ALKP -- 251* 219* AST -- 130* 269* ALT -- 69* 167* Recent Labs Lab 07/23/25 0542 TSH 2.910 No results for input(s): APTT, INR, PTT in the last 168 hours. Recent Labs Lab 07/22/25 1127 07/22/25 1338 TROP 62* 56* Recent Labs Lab 07/22/25 1137 07/22/25 1338 07/22/25 1633 07/23/25 0542 LACTICACID 3.4* 2.8* 2.0 -- PROCT -- -- -- 0.91* No results for input(s): PH, PCO2, PO2, [id number], BICARBWB, BASEDEFICIT, BASEEXCESS in the last 168 hours. No results found for this or any previous visit. 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 PULMONARY EMBOLUS PROTOCOL CLINICAL INDICATION: 80-year-old female. Reason for examination: Nodule in the right upper lobe. Possible atypical pneumonia, atrial fibrillation look for pulmonary embolus. Abnormal chest x-ray . TECHNIQUE: CT acquisition was performed according to the standard protocol from the aortic arch to the upper abdomen during the pulmonary enhancement phase of an intravenous contrast bolus of 80 cc of Isovue 370. Intravenous contrast injected into indwelling access in the right antecubital fossa. No adverse contrast reaction reported. Additional coronal 3-D reconstructions and postprocessing volume rendered MIP vascular images of the pulmonary arteries was performed. Dose lowering technique was used for this study which may include, but is not limited to, dose reduction techniques, automated exposure control, use of iterative reconstruction and ALARA (As low As Reasonably Achievable)/Image Gently techniques. COMPARISON: Portable AP view of the chest07/22/2025 and 01/11/2024 CT of the chest without contrast 07/18/2016 and 07/11/2016 Thyroid ultrasound07/14/2016 CT cervical spine without contrast 04/12/2022 Nuclear medicine VQ scan 07/11/2016 FINDINGS:The study was technically adequate to the lobar level only. No intraluminal filling defects, wall th ickening, or thrombus is present in the pulmonary arterial vascular tree to the lobar level suggestpulmonary embolus . A segmental or subsegmental pulmonary embolus would not be seen on this study due to respiratory motion and a small, renal preserving bolus. Lower neck/chest soft tissues: The partially calcified lesion in the right upper chest right lower neck supraclavicular region is redemonstrated and is seen to be large calcified right thyroid nodule, stable evaluated and noted since 2016. Most recently nearly identical appearance on CT of the cervical spine. Today this measures 4.1 x 2.7 x 3.8 cm similar to that documented on the thyroid ultrasound of 2016. Additional calcified and no ncalcified nodules in the enlarged left and right lobe of the thyroid in keeping with the given diagnosis of previous imaging of multinodular goiter. There are scattered calcifications throughout theleft and right breast tissues. Might consider referral to breast imaging Center for further evaluation Numerous spiderlike opacified ectatic superficial right breast wall and right subclavian and axillary vein varicosities may be sequela of right upper extremity AV fistula. Lungs/pleura: There is asmall left pleural effusion and overlying larger area of dense consolidation and atelectasis suspect for infectious inflammatory consolidative pneumonia involving the lingula and the left lower lobe.Left upper lobe clear and the right lung is clear. There is subtle dependent interlobular septal thickening hazy posterior groundglass opacity which could represent mild pulmonary edema or reflectiveof fluid/volume overload. Heart/great vessels/aorta: Stable measured ectasia ascending aorta maximal diameter 40 mm unchanged since 2016. Normal caliber aortic arch descending aorta and suprarenal aorta. Widespread calcific atherosclerosis of the aorta and heavy plaque at the ostia the celiac trunkand SMA and right and left renal arteries has increased since 2016. Since December 2023 the patient has received of right IJ hemodialysis catheter and the tips are in good position at the right atrial SVC junction. Mild cardiomegaly due to four-chamber enlargement. Aortic valve and coronary artery calcifications. Small, 8mm probably physiologic pericardial effusion. Mild hepatic venous reflux probably chronically elevated right heart pressures or fluid/volume overload. Mediastinum/itzel: There is no mediastinal or hilar or axillary lymphadenopathy. Esophagus unremarkable. No evidence of thoracic aortic dissection. Upper abdomen: Scattered granulomata throughout the liver and spleen mild diffuse hepatic steatosis. Status post cholecystectomy. Tiny bilateral atrophic kidneys. Calcified enlargedright adrenal gland, likely calcified adenoma unchanged since 2016. Small hypodense left adrenal gland nodule also unchanged since 2016, probably stable adenoma. Bone window imaging: No acute or pathologic bony abnormality. Widespread diminished bone density exaggeration thoracic kyphosis long segment anterior longitudinal ligament calcification may be DISH.. IMPRESSION: 1. No CT evidence of pulmonary embolus to the lobar level as above 2. Large area of consolidative opacity left lower lobe probably infectious inflammatory consolidative pneumonia. 3. Small, probably associated left pleural effusion 4. Mild findings suggestive of dependent pulmonary edema or could be fluid/volume overload 5. The calcified lesion in the right upper lung is seen to be calcified thyroid nodule. Additional stable findings of multinodular goiter. 6. Cardiomegaly with small possibly physiologic pericardial effusion. 7. Stable large calcified right adrenal adenoma and small left adrenal adenoma 8. Scattered calcifications more numerous in the left than the right breast;might consider referral to breast imaging Center for further evaluation 9. Right upper extremity opacified ectatic venous varicosities from the subclavian and axillary veins may be related to prior right upper extremity AV fistula. This should be confirmed in the medical record. Referred By: Interpreted By: Deborah Sexton DO, 07/22/2025 3:[address] HEAD WO CON Result Date: 07/22/[address] [address] EXAM: CT HEAD WO CON DATE: 07/22/2025 12:27 PM INDICATION: Altered mental status. TECHNIQUE: Transverse images through the head were obtained without intravenous contrast. A radiation dose lowering technique was used for this procedure, which may include, but is not limited to, dose reduction technique, automated exposure control, the use of iterative reconstruction, ALARA (As Low As Reasonably Achievable) techniques, and Image Gently techniques. COMPARISON: CT head 01/07/2024 FINDINGS: Motion degraded examination despite repeated imaging, limiting the sensitivity of this exam. There is no evidence of acute intracranial hemorrhage. No evidence of abnormal intra or extra axial fluid collections. The ventricles in extra-axial spaces are mildly prominent compatible with global volume loss and similar to prior. No evidence of mass, mass effect, or midline shift. Diffuse low-density within the white matter again consistent with chronic microangiopathy, similar to prior. No definite CT findings of acute territorial infarction, within limitations of motion. No calvarial fracture is seen. Diffuse permeative appearance of the calvarium. Diffuse opacification of the left maxillary sinus. Bilateral mastoid air cell effusion. The globes and orbits are symmetric and grossly unremarkable. IMPRESSION: 1. Motion degraded examination despite repeated imaging, limiting the sensitivity of this exam. 2. No definite CT findings of acute territorial infarction, within limitations of motion. 3. Senescent changes of global volume loss and chronic microangiopathy. 4. Diffuse permeative appearance of the calvarium. This is nonspecific but given the history of ESRD with hemodialysis this likely is secondary to renal osteodystrophy. 5. Diffuse opacification of the left maxillary sinus. Bilateral mastoid air cell effusion. Ordered By: HEATHER GUEVARA Interpreted By: Irvin Hernandez MD, 07/22/2025 12:52 PM XR CHEST PORTABLE Result Date: 07/22/[address] [id number] IMAGINGSTUDIES: XR CHEST PORTABLE DATE: 07/22/2025 11:40 AM HISTORY: new o2 requirement 72-year-old female.Altered mental status during dialysis. Reported temperature of 100.3 prior to dialysis treatment 1 (did not receive dialysis today). Patient's daughter reports the patient was released from [facility] on 07/[facility]2025 after treatment for urinary tract infection. COMPARISON: Chest portable 01/11/2024 and 01/07/2024. DISCUSSION: Portable AP upright view of the chest. Rightward rotated. 2.8 x 2.6 cmpartially calcified lesion projecting in the right upper chest and right lower neck/supraclavicular region which is not evident on the prior studies. Differential diagnosis would primarily include calcified enlarged lymph node or potential progression of vascular calcification. Right chest tunneleddialysis catheter with tip in the inferior right atrium is new since 01/11/2024. Stable cardiomegaly. No acute pulmonary vascular congestion. Aortic atherosclerotic calcifications. Low lung volumes but similar to prior studies. Chronic bilateral lung parenchymal scarring and pleural scarring. No appreciable significant pulmonary infiltrate or consolidation. No apparent pleural effusion or pneumothorax. Degenerative changes spine and shoulders. IMPRESSION: 1. Cardiomegaly. No acute pulmonary vascular congestion. Tunneled right chest dialysis catheter is new since 01/11/2024. 2. No apparent new pulmonary infiltrate or consolidation. 3. Partially calcified 2.8 cm lesion projecting in the right upper chest to right lower neck is not evident on 2023 radiographs. Could be further evaluated on nonemergent elective CT if clinically indicated. Ordered By: HEATHER GUEVARA Interpreted By: Aron Aguilar, 07/22/2025 12:08 PM USV CLINT DUPLEX LOW EXT JONATAN Result Date: 07/22/2025 VENOUS DUPLEX IMAGING BILATERAL LOWER EXTREMITY VASCULAR LAB Pat.Name: ZANDER ADLER Pat.ID: [id number] .Date: 07/22/2025 Refer.MD: [id number], Live zhang Exam Time: 3:33:00 PM Study Type:SHANON VS Venous Duplex Legs JONATAN Height: 67 in Age: 9 1945,80Y Sex: F Sonogrphr: Best Eddy RDMS,RVT History / Clinical:BLE edema Procedures: Linda scale, Color Doppler imaging, Doppler Spectral Analysis Race: W ++++++++++++++++++++++++++++++++++++ SUMMARY: ++++++++++++++++++++++++++++++++++++ Right leg: There are NO apparent, deep or superficial vein, ACUTE character venous filling defects visualized in the common femoral, proximal deep femoral, femoral, popliteal, gastrocnemius, posterior tibial, peroneal, great saphenousveins. Resting venous flow is phasic and significantly pulsatile. Left leg: There are NO apparent, deep or superficial vein, ACUTE character venous filling defects visualized in the common femoral, proximal deep femoral, femoral, popliteal, gastrocnemius, posterior tibial, peroneal, great saphenousveins. Resting venous flow is phasic and significantly pulsatile. Limited exam bilaterally due to patients condition, lower extremity swelling, and patients pain tolerance with compression. CONCLUSION: Limited exam bilaterally due to patients condition, lower extremity swelling, and patients pain tolerance with compression. No evidence of acute DVT or SVT seen in thebilateral lower extrmities. Pulsatile venous flows are suggestive of central venous hypertension (CHF, pulmonary HTN, right heart failure), though this may be a normal finding in a young, healthy patient. Unsigned Nikhil Andrews M.D. 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1945 Requested By: HEATHER GUEVARA Order Number: [id number] Reading MD: German Stevens Measurements Intervals Point [place] Rate: 137 P: 0 UT: 0 QRS: -18 QRSD: 111 T: 68 QT: 295 QTc: 446 Interpretive Statements ATRIAL FIBRILLATION WITH RAPID VENTRICULAR RESPONSE POSSIBLE LATERAL MYOCARDIAL INFARCTION , OF INDETERMINATE AGE [30 ms Q WAVE IN I/aVL/V5/V6] Compared to ECG 07/17/2024 13:56:11 No significant changes Assessment & Plan Sepsis due to suspected HAP pneumonia pt admitted recently at [place] lives in SNF and does HD Presented fever, chills with cough/URI s/s for about 1 week Lactate 3.4, trend Source: suspected HAP CXR showed new RUL lesions, considering atypicals UA 500 LE, negative nitrites, > 100 WBC, RBCs Blood and urine cultures pending Received 500 IV fluid bolus, continue cautions IV fluids goal 30 mg/kg but limited due to dialysis IV antibiotics vancomycin and cefepime, monitor for toxicity Consider aspiration. 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 VDUS BLE negative for DVT/SVT Consider arterial studies Consider additional diuresis during dialysis Hyperkalemia 6.1. Given Lokelma but patient not taking POs well. Monitor closely Improved, continue to manage with HD DM2 Hold home oral meds Accucheks/SSI Monitor Transaminitis Elevated LFT most likely due to severe sepsis will continue to monitor and test as needed No known exposures to hepatitis viruses Hold Statin Acute hypoxic respiratory failure Related to pneumonia Supported on O2 at 2 L with sats in the mid 90s. Without oxygen she dropped as low as the 80s Wean O2 as able, maintain O2 saturations > 90% IS\ ESRD on HD Foil Spinner is Dr. Alejandre Patient will have dialysis later this afternoon Requested administration of Lokelma for her high potassium Afib with RVR History of A-fib but RVR most likely due to severe sepsis. Patient was given 1 1 bolus of 500. ESRDlimiting fluid resuscitation Pressures remained stable Consider cardiology consult persistent Anticoagulated with Eliquis Sinusitis Noted on CT Incidental breast calcifications Seen on CT: Scattered calcifications more numerous in the left than the right breast; might consider referral to breast imaging center for further evaluation Will need PCP follow up if not already addressed for further testing/imaging Left arm - suture due to be removed, remove prior to d/c DUTCH COTTON MD * Eduarda Alejandre MD - 07/23/2025 6:11 AM CDT Zander Adler is a 80-year-old female patient. Reason for Follow Up: ESRD on HD, hyperkalemia Subjective: Mrs. Adler is doing around the same, sleepy and lethagic. No issues reported overnight S.p HD yesterday Current Facility-Administered Medications Medication Dose Route Frequency Provider Last Rate Last Admin acetaminophen (TYLENOL) tablet 650 mg 650 mg Oral Q4H PRN JOSE Mills Or acetaminophen (TYLENOL) suppository 650 mg 650 mg Rectal Q4H PRN JOSE Mills apixaban (ELIQUIS) tablet 5 mg 5 mg Oral BID Dutch Cotton MD 5 mg at 07/23/25 0900 ARIPiprazole (ABILIFY) tablet 3 mg 3 mg Oral nightly Dutch Cotton MD busPIRone (BUSPAR) tablet 5 mg 5 mg Oral TID Dutch Cotton MD 5 mg at 07/23/25 0900 ceFEPIme (MAXIPIME) 1 g in sodium chloride 0.9 % 50 mL IVPB 1 g Intravenous Q24H JOSE Mills [START ON 07/24/2025] ferrous sulfate EC tablet 324 mg 324 mg Oral Once per day on Tuesday Dutch Cotton MD HYDROcodone-acetaminophen (NORCO) 5-325 MG tablet 1 tablet 1 tablet Oral Q6H PRN JOSE Mills HYDROmorphone (DILAUDID) injection 0.2 mg 0.2 mg Intravenous Q3H PRN JOSE Mills 0.2 mg at 07/22/25 1502 ipratropium-albuterol (DUONEB) 0.5-2.5 (3) MG/3ML nebulizer solution 3 mL 3 mL Nebulization Q4H PRNDutch Cotton MD methylphenidate (RITALIN) tablet 10 mg 10 mg Oral BID Dutch Cotton MD metoprolol tartrate (LOPRESSOR) tablet 25 mg 25 mg Oral BID Dutch Cotton MD 25 mg at 07/23/25 0900 naLOXone (NARCAN) injection 0.4 mg 0.4 mg Intravenous PRN JOSE Mills ondansetron (ZOFRAN) injection 4 mg 4 mg Intravenous Q8H PRN JOSE Mills polyethylene glycol (GLYCOLAX) packet 17 g 17 g Oral Daily PRN JOSE Mills sertraline (ZOLOFT) tablet 50 mg 50 mg Oral Daily Dutch Cotton MD 50 mg at 07/23/25 0900 vitamin B-12 (CYANOCOBALAMIN) tablet 1,000 mcg 1,000 mcg Oral nightly Dutch Cotton MD Review of patient's allergies indicates: Allergen Reactions Sulfa Antibiotics Unknown Wellbutrin [Bupropion] Unknown Per [place] documentation Principal Problem: Severe sepsis ([facility]) SNOMED CT(R): SEPSIS Social History Tobacco Use Smoking status: Never Smokeless tobacco: Never Substance Use Topics Alcohol use: No Objective: Filed Vitals: 07/23/25 0043 07/23/25 0425 07/23/25 0747 07/23/25 1133 BP: 90/56 109/52 94/62 114/62 Pulse: (!) 118 (!) 107 (!) 127 (!) 124 Resp: 16 19 Temp: 98.6 ??F (37 ??C) 98.4 ??F (36.9 ??C) 98.2 ??F (36.8 ??C) 98.4 ??F (36.9 ??C) TempSrc: Oral Oral SpO2: 94% 98% 96% 98% Weight: 122.8 kg (270 lb 11.6 oz) Height: Intermittent/Straight Cath (mL): 50 mL Physical Exam: -GENERAL: lethargic; on O2 NC -EYES: Extraocular movements intact -LUNG: coarse breath sounds -CVS: Regular rate rhythm, systolic murmur -ABDOMEN: Soft, nondistended -Musculoskeletal / EXT: legs edema up to thighs and hips, left arm AVF with thrill and bruit -NEURO: lethargic, sleepy, not communicative and not following commands LABs I reviewed labs Recent Labs Lab 07/22/25 1127 07/23/25 0542 NA 134* 137 K 6.1* 4.2 CL 99 101 CO2 25.2 27.1 AGAP 9.8 8.9 BUN 54* 29* CR 5.43* 3.19* BUNCREATININ 9.9 9.1 GLU 144* 66* CA 10.3* 9.9 MAGNESIUM 2.0 1.9 Recent Labs Lab 07/22/25 1127 07/23/25 0542 WBC 9.33 7.44 RBC 3.23* 2.90* HGB 9.5* 8.4* HCT 32.0* 28.4* MCV 99.1* 97.9 MCH 29.4 29.0 MCHC 29.7* 29.6* PLT 277 254 RDW 15.8* 15.9* MPV 10.0 10.0 Assessment/Plan: Mrs. Adler a 76 y.o female with hx ESRD on chronic HD MWF, breast cancer, A.fib, Hypertension, DM, hx of seizure, nephrolithiasis, CHF. -patient went to dialysis today but had fever and AMS for which was sent here. She is a resident innursing home. -recent admission [facility]; treated for UTI / pseudomonas with Abx. -chest imaging showed no PE. It showed opacitiy over the left lung field, small left pleural effusion, cardiomegaly. ---ESRD on chronic HD MWF. Hyperkalemia on admission; s/p lokelma and HD yesterday using low K bath. Used perm cath and AVF. UF Was 1L; limited with her BP. K improved. Plan for HD tomorrow per regular schedule and we iwll check with schedule today to see if there is room to add a DUF. Adding midodrine for hypotension ---A.fib with RVR; on metoprolol ---legs edema and pain; doppler US was negative for DVT but limited study ---suspected PMA with fever; on Abx per primary team ---DM; on insulin; management per primary team ---Anemia of CKD. Probably on lonc acting CHELITA as outpatient. Will add CHELITA with HD EDUARDA ALEJANDRE MD 07/23/2025 * Omero Marroquin RN - 07/22/2025 11:05 PM CDT 07/22/252199 Post Treatment Note Post Treatment Note Tx completed as ordered. Pt tolerated it well. No s/s of acute distress observed. Pt remain lethargic. PCN aware. Vital Signs Temp 98 ??F (36.7 ??C) Temp src Axillary Pulse (!) 107 Heart Rate Source Monitor Resp 15 BP 111/53 BP Location Right arm BP Method Automatic Patient Position Lying Cuff size Adult Regular Post Treatment Weight Post-Treatment Weight (kg) 129.5 kg (285 lb 7.9 oz) Additonal Post Treatment Information Time Treatment Ended 2199 Dialyzer Cleared Fair Blood Processed 62.8 Net UF removed 1000 Post Treatment Access AVF/AVG: Bleeding Stop Arterial 8 min +Bruit Yes Catheter Locking Solution Heparin 1:1000 Catheter Locking Volume: Arterial 2.2 ml Catheter Locking Volume: Venous 2.3 ml Post Assessment Skin Assessment Dry;Warm Respiratory Assessment Easy Respirations Cardiac Regular Edema None Pain None LOC Lethargic Ausculation Lung Sounds Location Modifier Bilateral Location Throughout Respiratory Phase Inspiratory;Expiratory Lung Sounds Clear HEMODIALYSIS POST TREATMENT NOTE REPORT GIVEN TO: Raul Hinojosa RN GI ASSESSMENT: Soft, audible bowel sounds. ISSUES REPORTED: Low BP. * Omero Marroquin RN - 07/22/2025 8:23 PM CDT PRE TREATMENT NOTE ISOLATION: Contact CODE STATUS: Full HEPATITIS STATUS: Neg/imm LOC ASSESSMENT: Lethargic TELE: Yes O2 DEVICE: NC GI ASSESSMENT: Soft, audible bowel sounds. EDEMA: LE, R, L MEDS GIVEN: None FLUIDS/DRIPS: Vancomycin PROCEDURES/TESTS: None REPORT RECEIVED FROM: Liang Ayala RN documented in this encounter H&P Notes * JOSE Mills - 07/22/2025 2:39 PM CDT ATTENDING: JOSE MILLS PRIMARY CARE PROVIDER: CARL MALONEY MD CC: fever of unknown origin HPI: Patient seen and evaluated by this provider. History obtained via chart review, discussion with her daughter, and review of outside records from prior admissions. Zander Adler is a 80-year-old female with past medical history of Afib, CHF, HTN, ESRD, DM who presents today from dialysis for fever and change in mental status. She did not get dialysis today shelives in an SNF and her daughter who is present during this exam is active in her care. The patientcomplains of increasing bilateral leg pain for the past few weeks. Her daughter states that in the last week her pain and confusion have become significantly worse. She was seen at [facility] last week for leg pain but was unable to tolerate the [place] for further investigation. While at [place] her daughter says she was diagnosed with pseudomonas driven UTI. She was treated with both IV and PO antibiotics for this. Her daughter states that she has had more nasal discharge and stuffiness since d/c from [place], for which her PCP prescribed duoneb treatments and oxygen supplementation. She continues on the oxygen supplementation today. Denies known exposure to atypical bacteria, but living situation/recent hospital visits puts her at risk for atypical bacterial exposure. There are no other concerns at this time. Pt portal reviewed with daughter from [facility] on most recent admission. Treated with rocephin for pseudomonas in urine. Blood cx were negative. No treatment for respiratory infection. Past Medical History[1] Past Surgical History[2] Social History Socioeconomic History Marital status: Spouse name: Not on file Number of children: 1 Years of education: Not on file Highest education level: Not on file Occupational History Employer: RETIRED Tobacco Use Smoking status: Never Smokeless tobacco: Never Substance and Sexual Activity Alcohol use: No Drug use: No Sexual activity: Not on file Other Topics Concern Service Not Asked Blood Transfusions Not Asked Caffeine Concern No Occupational Exposure Not Asked Hobby Hazards Not Asked Sleep Concern Not Asked Stress Concern Not Asked Weight Concern Not Asked Special Diet Yes Comment: low sodium Back Care Not Asked Exercise No Bike Helmet Not Asked Seat Belt Not Asked Self-Exams Not Asked Social History Narrative Not on file Social Drivers of Health Financial Resource Strain: Low Risk (01/08/2024) Overall Financial Resource Strain (CARDIA) Difficulty of Paying Living Expenses: Not hard at all Food Insecurity: No Food Insecurity (01/08/2024) Hunger Vital Sign Worried About Running Out of Food in the Last Year: Never true Ran Out of Food in the Last Year: Never true Transportation Needs: No Transportation Needs (01/08/2024) PRAPARE - Transportation Lack of Transportation (Medical): No Lack of Transportation (Non-Medical): No Physical Activity: Inactive (01/08/2024) Exercise Vital Sign Days of Exercise per Week: 0 days Minutes of Exercise per Session: 0 min Stress: No Stress Concern Present (01/08/2024) [employer] - Occupational Stress Questionnaire Feeling of Stress : Not at all Social Connections: Moderately Integrated (01/08/2024) Social Connection and Isolation Panel [NHANES] Frequency of Communication with Friends and Family: More than three times a week Frequency of Social Gatherings with Friends and Family: More than three times a week Attends Synagogue Services: 1 to 4 times per year Active Member of Clubs or Organizations: Yes Attends Club or Organization Meetings: 1 to 4 times per year Marital Status: Intimate Partner Violence: Not At Risk (01/08/2024) Humiliation, Afraid, Rape, and Kick questionnaire Fear of Current or Ex-Partner: No Emotionally Abused: No Physically Abused: No Sexually Abused: No Housing Stability: Low Risk (01/08/2024) Housing Stability Vital Sign Unable to Pay for Housing in the Last Year: No Number of Places Lived in the Last Year: 1 Unstable Housing in the Last Year: No Family History[3] Prior to Admission medications Medication Sig Start Date End Date Taking? Authorizing Provider Cetirizine HCl 10 MG Cap Take 10 mg by mouth daily as needed (Allergies). 01/21/25 Yes Default History Genericprovider ipratropium-albuterol (DUONEB) 0.5-2.5 (3) MG/3ML Solution Take 3 mLs by nebulization every 4 (four) hours as needed (Shortness of breath). 07/20/25 Yes Default History Genericprovider nystatin (MYCOSTATIN) powder Apply topically 2 (two) times daily. 06/04/25 Yes Default History Genericprovider Simethicone 125 MG Cap Take 1-2 capsules by mouth see administration instructions. Take 1-2 softgels as needed after meals and at bedtime; max 4 softgels/day 02/18/25 Yes Default History Genericprovider tiZANidine (ZANAFLEX) 2 MG tablet Take 1 tablet (2 mg total) by mouth 3 (three) times daily. 06/23/25 Yes Default History Genericprovider traMADol (ULTRAM) 50 MG tablet Take 1 tablet (50 mg total) by mouth 4 (four) times daily as needed.FOR PAIN 07/17/25 Yes Default History Genericprovider acetaminophen 325 MG tablet Take 2 tablets (650 mg total) by mouth every 4 (four) hours as needed for Pain. Doc [facility] ARIPiprazole (ABILIFY) 2 MG tablet Take 1.5 tablets (3 mg total) by mouth nightly. Default History Genericprovider BASAGLAR KWIKPEN 100 UNIT/ML injection (PEN) Inject 10 Units into the skin daily. Patient taking differently: Inject 25 Units into the skin every morning. 05/25/22 Paulo Iglesias MD BD ECLIPSE SYRINGE 25G X 1 3 ML Misc 01/18/25 Default History Genericprovider BD PEN NEEDLE LG 2ND GEN 32G X 4 MM Misc daily. 11/30/24 Default History Genericprovider busPIRone (BUSPAR) 5 MG tablet Take 1 tablet (5 mg total) by mouth 3 (three) times daily. 12/01/24 Default History Genericprovider cranberry 500 MG Cap Take 1 tablet (500 mg total) by mouth 3 (three) times daily with meals. Doc [facility] docusate sodium (COLACE) 100 MG capsule Take 1 capsule (100 mg total) by mouth 2 (two) times daily as needed for Constipation. 05/25/22 Paulo Iglesias MD ELIQUIS 5 MG tablet Take 1 tablet (5 mg total) by mouth 2 (two) times daily. 02/02/25 Default History Genericprovider ferrous sulfate EC 324 (65 Fe) MG tablet Take 1 tablet (324 mg total) by mouth every other day. [facility] fluconazole (DIFLUCAN) 150 MG tablet Take 1 tablet (150 mg total) by mouth every 7 days. Default History Genericprovider Insulin Glargine-yfgn 100 UNIT/ML Solution Pen-injector Inject 25 Units into the skin every morning. 05/20/25 Default History Genericprovider methylphenidate (RITALIN) 10 MG tablet 10 MG ORALLY 2 TIMES PER DAY WITH MEALS BREAKFAST AND LUNCH 07/31/24 Default History Genericprovider metoprolol tartrate (LOPRESSOR) 25 MG tablet Take 1 tablet (25 mg total) by mouth 2 (two) times daily. 04/30/24 Default History Genericprovider nitroglycerin (NITROSTAT) 0.[address] 1 tablet (0.4 mg total) under the tongue every 5 (five) minutes as needed for Chest Pain. If taking 3rd dose, contact 911 03/26/25 SHAHLA Le NOVOLOG FLEXPEN 100 UNIT/ML injection (PEN) Inject into the skin 2 (two) times daily before meals. Sliding scale BS 200-250 = 4 units BS 251-300 = 6 units BS 301 - 350 = 8 units BS 351 - 400 = 12 units BS 401-500 = 12 units, call MD if greater than 400 12/21/21 Doc [facility] nystatin (MYCOSTATIN) cream apply 1 application on the skin twice a day 01/12/25 Default History Genericprovider ondansetron (ZOFRAN-ODT) 4 MG disintegrating tablet Take 1 tablet (4 mg total) by mouth every 6 (six) hours as needed. 04/03/24 Default History Genericprovider polyethylene glycol packet Take 240 mLs (17 g total) by mouth daily as needed for Constipation. Dissolve powder in 240 mL water Doc [facility] rosuvastatin (CRESTOR) 10 MG tablet Take 1 tablet (10 mg total) by mouth daily. Default History Genericprovider sertraline (ZOLOFT) 50 MG tablet Take 1 tablet (50 mg total) by mouth daily. 11/30/24 Default HistoryGenericprovider Tenapanor HCl, CKD, (XPHOZAH) 30 MG Tab Take 1 tablet by mouth daily. Default History Genericprovider vitamin B-12 (CYANOCOBALAMIN) 1000 mcg tablet Take 1 tablet (1,000 mcg total) by mouth daily. Doc [facility] zolpidem (AMBIEN) 5 MG tablet Take 1 tablet (5 mg total) by mouth nightly. Takes for hypersomnia Default History Genericprovider I have reviewed current outpatient medications and reconciled them for inpatient admission. Appropriate medications to be continued. Inappropriate medications to be held for now. Allergies Allergen Reactions Sulfa Antibiotics Unknown Wellbutrin [Bupropion] Unknown Per MD documentation ROS: A 10 point review of systems was taken and pertinent positives and negatives as per HPI. All othersnegative save as noted in HPI. PHYSICAL EXAM: Intake/Output Summary (Last 24 hours) at 07/22/2025 1439 Last data filed at 07/22/2025 1336 Gross per 24 hour Intake 500 ml Output -- Net 500 ml Patient Vitals for the past 24 hrs: BP Temp Temp src Pulse Resp SpO2 Height Weight 07/22/25 1230 (!) 132/98 -- -- (!) 129 24 97 % -- -- 07/22/25 1200 121/79 -- -- (!) 129 26 96 % -- -- 07/22/25 1128 -- -- -- -- -- 95 % -- -- 07/22/25 1123 104/86 98.3 ??F (36.8 ??C) Axillary (!) 128 24 95 % 1.676 m (5' 6) 121.7 kg (268 lb 4.8 oz) Constitutional: Well developed, Well nourished, ill appearance. HENT: Normocephalic, Atraumatic, Bilateral external ears normal, Oropharynx moist, No oral exudates, Nose normal, patient using O2 supplementation via NC. Eyes: PERRL, EOMI, Conjunctiva normal, No discharge. Respiratory: Bilaterally clear to auscultation with no rales, rhonchi, or wheezes. Good aeration. No accessory muscle use. Cardiovascular: S1, S2 present, irregular rate and rhythm. GI: Soft, No tenderness or guarding, No masses, No pulsatile masses. Musculoskeletal: Patient is non-compliant with exam due to pain in bilateral lower extremities. Integument: Warm, Dry, No erythema, No rash. Neurologic: Alert & oriented x 1-2, Cranial nerves II-XII grossly intact. Normal motor function, Normal sensory function, No obvious focal deficits noted. Labs: Recent Labs Lab 07/22/25 1127 WBC 9.33 RBC 3.23* HGB 9.5* HCT 32.0* MCV 99.1* MCH 29.4 MCHC 29.7* PLT 277 RDW 15.8* MPV 10.0 PERNEU 85.2 PERLYM 6.9 PERMON 6.2 NEUC 7.95* LYMC 0.64* MONOC 0.58 EOSC 0.05 BASOC 0.04 DTYPE AUTOMATED DIFFERENTIAL Recent Labs Lab 07/16/25 0943 07/22/25 1127 NA 131* 134* K 4.9 6.1* CL 97 99 CO2 28.1 25.2 AGAP 5.9 9.8 BUN 28* 54* CR 3.67* 5.43* BUNCREATININ 7.6 9.9 GLU 191* 144* CA 9.1 10.3* TP -- 6.9 ALB -- 2.4* TBIL -- 0.7 ALKP -- 251* AST -- 130* ALT -- 69* No results for input(s): CHOL, TRI, HDL, LDL, HGBA1C, TSH in the last 168 hours. No results for input(s): APTT, INR, PTT in the last 168 hours. Recent Labs Lab 07/22/25 1127 07/22/25 1338 TROP 62* 56* Recent Labs Lab 07/22/25 1137 07/22/25 1338 LACTICACID 3.4* 2.8* No results for input(s): PH, PCO2, PO2, X4RIADHCAJMY, BICARBWB, BASEDEFICIT, BASEEXCESS in the last 168 hours. No results found for this or any previous visit. Diagnostic Review Per my interpretation, patient's CXR demonstrates new lesions to right lobe,one lesion extending superiorly into the right upper chest. CT HEAD WO CON Result Date: 07/22/2025 [facility] [address] [place], [place] [address] EXAM: CT HEAD WO CON DATE: 07/22/2025 12:27 PM INDICATION: Altered mental status. TECHNIQUE: Transverse images through the head were obtained without intravenous contrast. A radiation dose lowering technique was used for this procedure, which may include, but is not limited to, dose reduction technique, automated exposure control, the use of iterative reconstruction, ALARA (As Low As Reasonably Achievable) techniques, and Image Gently techniques. COMPARISON: CT head 01/07/2024 FINDINGS: Motion degraded examination despite repeated imaging, limiting the sensitivity of this exam. There is no evidence of acute intracranial hemorrhage. No evidence of abnormal intra or extra axial fluid collections. The ventricles in extra-axial spaces are mildly prominent compatible with global volume loss and similar to prior. No evidence of mass, mass effect, or midline shift. Diffuse low-density within the white matter again consistent with chronic microangiopathy, similar to prior. No definite CT findings of acute territorial infarction, within limitations of motion. No calvarial fracture is seen. Diffuse permeative appearance of the calvarium. Diffuse opacification of the left maxillary sinus. Bilateral mastoid air cell effusion. The globes and orbits are symmetric and grossly unremarkable. IMPRESSION: 1. Motion degraded examination despite repeated imaging, limiting the sensitivity of this exam. 2. No definite CT findings of acute territorial infarction, within limitations of motion. 3. Senescent changes of global volume loss and chronic microangiopathy. 4. Diffuse permeative appearance of the calvarium. This is nonspecific but given the history of ESRD with hemodialysis this likely is secondary to renal osteodystrophy. 5. Diffuse opacification of the left maxillary sinus. Bilateral mastoid air cell effusion. Ordered By: HEATHER GUEVARA Interpreted By: Irvin Hernandez MD, 07/22/2025 12:52 PM XR CHEST PORTABLE Result Date: 07/22/2025 [facility] [address] [place], [place] [address] IMAGINGSTUDIES: XR CHEST PORTABLE DATE: 07/22/2025 11:40 AM HISTORY: new o2 requirement 72-year-old female.Altered mental status during dialysis. Reported temperature of 100.3 prior to dialysis treatment 1 (did not receive dialysis today). Patient's daughter reports the patient was released from [facility] on 07/01/2025 after treatment for urinary tract infection. COMPARISON: Chest portable 01/11/2024 and 01/07/2024. DISCUSSION: Portable AP upright view of the chest. Rightward rotated. 2.8 x 2.6 cmpartially calcified lesion projecting in the right upper chest and right lower neck/supraclavicular region which is not evident on the prior studies. Differential diagnosis would primarily include calcified enlarged lymph node or potential progression of vascular calcification. Right chest tunneleddialysis catheter with tip in the inferior right atrium is new since 01/11/2024. Stable cardiomegaly. No acute pulmonary vascular congestion. Aortic atherosclerotic calcifications. Low lung volumes but similar to prior studies. Chronic bilateral lung parenchymal scarring and pleural scarring. No appreciable significant pulmonary infiltrate or consolidation. No apparent pleural effusion or pneumothorax. Degenerative changes spine and shoulders. IMPRESSION: 1. Cardiomegaly. No acute pulmonary vascular congestion. Tunneled right chest dialysis catheter is new since 01/11/2024. 2. No apparent new pulmonary infiltrate or consolidation. 3. Partially calcified 2.8 cm lesion projecting in the right upper chest to right lower neck is not evident on 2023 radiographs. Could be further evaluated on nonemergent elective CT if clinically indicated. Ordered By: HEATHER GUEVARA Interpreted By: Aron Aguilar, 07/22/2025 12:08 PM ECG 12 lead Result Date: 07/22/2025 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 : 1945 Requested By: HEATHER GUEVARA Order Number: [id number] Reading MD: Measurements Intervals Point [place] Rate: 137 P: 0 UT: 0 QRS: -18 QRSD: 111 T: 68 QT: 295 QTc: 446 Interpretive Statements ATRIAL FIBRILLATION WITH RAPID VENTRICULAR RESPONSE POSSIBLE LATERAL MYOCARDIAL INFARCTION , OF INDETERMINATE AGE [30 ms Q WAVE IN I/aVL/V5/V6] Compared to ECG 07/17/2024 13:56:11 No significant changes Results for orders placed or performed during the hospital encounter of 07/22/25 ECG 12 lead Narrative [facility] Test Date: 2025-07-22 Pat Name: ZANDER ADLER Department: 41 Room: [id number] 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: [id number] : 1945 Requested By: HEATHER GUEVARA Order Number: [id number] Reading MD: Measurements Intervals Point [place] Rate: 137 P: 0 UT: 0 QRS: -18 QRSD: 111 T: 68 QT: 295 QTc: 446 Interpretive Statements ATRIAL FIBRILLATION WITH RAPID VENTRICULAR RESPONSE POSSIBLE LATERAL MYOCARDIAL INFARCTION , OF INDETERMINATE AGE [30 ms Q WAVE IN I/aVL/V5/V6] Compared to ECG 07/17/2024 13:56:11 No significant changes ASSESSMENT AND PLAN: Zander Adler is a 80-year-old female with PMH of Afib, CHF, HTN, ESRD, DM with diagnostic evaluation notable for fever and suspected HAP with sepsis and hypoxic respiratory failure SDOH impacting care include residing in a snf facility and multiple medical problems. Patient is at riskfor acute decompensation . I will admit to inpatient to provide appropriate level of care and treatment to patient as well as continued evaluation. Sepsis due to suspected HAP pneumonia pt admitted recently at [place] lives in SNF and does HD Presented fever, chills with cough/URI s/s for about 1 week Lactate 3.4, trend Source: suspected HAP CXR showed new RUL lesions, considering atypicals UA pending Blood and urine cultures pending Received 500 IV fluid bolus, continue cautions IV fluids goal 30 mg/kg but limited due to dialysis IV antibiotics vancomycin and cefepime, monitor for toxicity Consider aspiration. WATCH DIAL STONER pending CT chest and atypical pneumonia testing pending BLE edema / pain Pt has extreme swelling to BLE with hardening to the soft tissues noted by her daughter Ongoing and worsening for a couple weeks. VDUS BLE pending Consider arterial studies Consider additional diuresis during dialysis Hyperkalemia 6.1. Given Lokelma but patient not taking POs well. Monitor closely Transaminitis Elevated LFT most likely due to severe sepsis will continue to monitor and test as needed No known exposures to hepatitis viruses Acute hypoxic respiratory failure Related to pneumonia Supported on O2 at 2 L with sats in the mid 90s. Without oxygen she dropped as low as the 80s ESRD on HD Foil Spinner is Dr. Alejandre Patient will have dialysis later this afternoon Requested administration of Lokelma for her high potassium Afib with RVR History of A-fib but RVR most likely due to severe sepsis. Patient was given 1 1 bolus of 500. ESRDlimiting fluid resuscitation Pressures remained stable Consider cardiology consult persistent Anticoagulated with Eliquis Sinusitis Noted on CT Left arm - suture due to be removed, remove prior to d/c - DVT prophylaxis: Eliquis - Diet/IVF: Renal/saline -T/L/D: None - Code status: Full - Disposition: Admit to inpatient Spent 16 minutes discussing plan of care as well as patient wishes and desires regarding medical care 07/22/2025. The patient/MPoA verbalizes understanding and wishes to remain a full code currently. Surrogate decision maker/MPoA is her daughter who is at bedside The above plan of care was discussed with the patient in detail. An opportunity was provided for the patient/MPoA to ask questions regarding the hospital stay and plan of care. All questions were answered. The patient/MPoA understands and agrees. The patient was informed to ask the RN to contact meif any further questions or concerns. I have seen and examined the patient independently and anticipate patient will require 3-4 midnights. This note was dictated with the use of [employer] dictation software and was proofread to the best of my ability. If you have questions or find errors, please contact me via [employer]. Thank you. 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[facility]) CHF (congestive heart failure) ([facility]) CKD (chronic kidney disease), stage IV ([facility]) on dialysis Depression Diabetes ([facility]) Dysphagia Encephalopathy ESBL (extended spectrum beta-lactamase) producing bacteria infection Hearing loss Heart attack ([facility]) HLD (hyperlipidemia) Hypertension, essential Hypertensive urgency Insomnia Kidney stone MRSA (methicillin resistant Staphylococcus aureus) Nonrheumatic aortic (valve) insufficiency Osteoporosis PONV (postoperative nausea and vomiting) Pulmonary hypertension ([facility]) Seizure ([facility] [place]) 06/06/2021 as per daugther Stable burst fracture of unspecified lumbar vertebra, subsequent encounter for fracture with delayed healing Stroke ([facility]) Unspecified dementia, unspecified severity, without behavioral disturbance, psychotic disturbance, mood disturbance, and anxiety ([facility]) Urinary retention UTI (urinary tract infection) Vitamin D deficiency [2] Past Surgical History: Procedure Laterality Date BREAST LUMPECTOMY Right CATARACT EXTRACTION CHOLECYSTECTOMY HC URETERAL STENT - OR SUSPENSION BLADDER [3] Family History Problem Relation Name Age of Onset Ovarian Cancer Mother Diabetes Father Hypertension Sister Stroke Sister Other (brain aneurysm) Sister Stroke Brother Cosigned by Elizabeth Haley MD at 07/22/2025 9:17 PM CDT Associated attestation - Elizabeth Haley MD - 07/22/2025 9:17 PM CDT I, Elizabeth Haley MD participated in the care of this patient today and discussed the plan of care with advance provider who shared in this visit. I have reviewed the RHONDA's documentation and agree with the findings except as I have documented. I personally spent a substantial amount of time on medical decision making and caring for this patient. Patient seen and examined. ESCROW MANAGER/PA note reviewed. General: . Awake, ill-appearing CV: Tachycardic, irregularly irregular, no murmur noted Pulmonary: Coarse breath sounds bilaterally Abdomen: non-distended, non-tender, positive bowel sounds Extremities: + LE edema Neuro: alert and oriented Agree with plan Sepsis secondary to suspected HAP - starting IV cefepime UTI - culture pending Lactate downtrended to normal Hyperkalemia - plan for HD this evening ESRD on HD B/L LE edema - LE DVT negative. Fluid removal per HD Afib/rvr (resolved) Transaminitis - trend Elizabeth Haley MD documented in this encounter Consult Notes * Real Hodges MD - 07/24/2025 10:46 AM CDTAssociated Order(s): IP CONSULT TO CARDIOLOGY Cardiology Consult History Reason for consult: aortic stenosis Zander Adler is a 80-year-old female who presents with FUO. Patient has a past medical history significant for ESRD on HD, chronic Af on eliquis, HTN, DM II. [place] for sepsis, had echo done. Echo showed normal EF but significant . Also has been having AFib with mild RVR. Called by primary teamto evaluate due to this. In HD, doing okay. No clear SOB, CP, chest pressure. Discussed with daughter - sounds like she has had some fluid retention over the last couple of weeks. Continued difficulty with URI symptoms, intermittently hypoxic at home. Not very active at baseline. Past Medical History[1] Past Surgical History[2] Social History[3] Family History[4] apixaban 5 mg Oral BID ARIPiprazole 3 mg Oral nightly busPIRone 5 mg Oral TID cefepime 1 g Intravenous Q24H epoetin saira-epbx 10,000 Units Intravenous Once per day on Tuesday ferrous sulfate EC 324 mg Oral Once per day on Tuesday insulin lispro 0-16 Units Subcutaneous TID AC And insulin lispro 0-8 Units Subcutaneous Nightly at bedtime methylphenidate 10 mg Oral BID metoprolol tartrate 12.5 mg Oral BID midodrine 5 mg Oral 2 times per day on Tuesday sertraline 50 mg Oral Daily Tenapanor HCl (CKD) 1 tablet Oral BID vitamin B-12 1,000 mcg Oral nightly acetaminophen OR acetaminophen, HYDROcodone-acetaminophen, HYDROmorphone, ipratropium-albuterol, naLOXone, ondansetron, polyethylene glycol Prior to Admission medications Medication Sig Start Date End Date Taking? Authorizing Provider acetaminophen (TYLENOL) 500 MG tablet Take 2 tablets (1,000 mg total) by mouth 2 (two) times a day.Yes Doc [facility] ARIPiprazole (ABILIFY) 2 MG tablet Take 1.5 tablets (3 mg total) by mouth nightly. Yes Default History Genericprovider busPIRone (BUSPAR) 5 MG tablet Take 1 tablet (5 mg total) by mouth 3 (three) times daily. 12/01/24 Yes Default History Genericprovider cranberry 500 MG Cap Take 1 tablet (500 mg total) by mouth 3 (three) times daily with meals. Yes Doc [facility] docusate sodium (COLACE) 100 MG capsule Take 1 capsule (100 mg total) by mouth 2 (two) times daily as needed for Constipation. Patient taking differently: Take 2 capsules (200 mg total) by mouth nightly. 05/25/22 Yes Paulo Igleisas MD ELIQUIS 5 MG tablet Take 1 tablet (5 mg total) by mouth 2 (two) times daily. 02/02/25 Yes Default History Genericprovider ferrous sulfate EC 324 (65 Fe) MG tablet Take 1 tablet (324 mg total) by mouth every other day. Takes on Tue, Tue, Tue Yes Doc [facility] fluconazole (DIFLUCAN) 150 MG tablet Take 1 tablet (150 mg total) by mouth every 7 days. Takes on saturdays Yes Default History Genericprovider Insulin Glargine-yfgn 100 UNIT/ML Solution Pen-injector Inject 25 Units into the skin every morning. 05/20/25 Yes Default History Genericprovider methylphenidate (RITALIN) 10 MG tablet Take 1 tablet (10 mg total) by mouth 2 (two) times daily. TAKE WITH MEALS BREAKFAST AND LUNCH 07/31/24 Yes Default History Genericprovider metoprolol tartrate (LOPRESSOR) 25 MG tablet Take 1 tablet (25 mg total) by mouth 2 (two) times daily. 04/30/24 Yes Default History Genericprovider NOVOLOG FLEXPEN 100 UNIT/ML injection (PEN) Inject into the skin 2 (two) times daily before meals. Sliding scale BS 200-250 = 4 units BS 251-300 = 6 units BS 301 - 350 = 8 units BS 351 - 400 = 12 units BS 401-500 = 12 units, call MD if greater than 400 12/21/21 Yes Doc [facility] rosuvastatin (CRESTOR) 10 MG tablet Take 1 tablet (10 mg total) by mouth nightly at bedtime. Yes Default History Genericprovider sertraline (ZOLOFT) 50 MG tablet Take 1 tablet (50 mg total) by mouth daily. 11/30/24 Yes Default History Genericprovider Tenapanor HCl, CKD, (XPHOZAH) 30 MG Tab Take 1 tablet by mouth 2 (two) times a day. Yes Default History Genericprovider vitamin B-12 (CYANOCOBALAMIN) 1000 mcg tablet Take 1 tablet (1,000 mcg total) by mouth nightly. YesDoc [facility] zolpidem (AMBIEN) 5 MG tablet Take 1 tablet (5 mg total) by mouth nightly. Takes for hypersomnia Yes Default History Genericprovider Cetirizine HCl 10 MG Cap Take 10 mg by mouth daily as needed (Allergies). 01/21/25 Default History Genericprovider guaiFENesin ER (MUCINEX) 600 MG 12 hr tablet Take 2 tablets (1,200 mg total) by mouth 2 (two) timesdaily as needed for Congestion. Default History Genericprovider ipratropium-albuterol (DUONEB) 0.5-2.5 (3) MG/3ML Solution Take 3 mLs by nebulization every 4 (four) hours as needed (Shortness of breath). 07/20/25 Default History Genericprovider miconazole (MONISTAT) 2 % vaginal cream Place 1 applicator vaginally nightly as needed (Fungal infection). Default History Genericprovider nitroglycerin (NITROSTAT) 0.[address] 1 tablet (0.4 mg total) under the tongue every 5 (five) minutes as needed for Chest Pain. If taking 3rd dose, contact 911 03/26/25 SHAHLA Le nystatin (MYCOSTATIN) powder Apply topically 4 (four) times daily as needed (Fungal infection). Default History Genericprovider ondansetron (ZOFRAN) 4 MG tablet Take 1 tablet (4 mg total) by mouth every 8 (eight) hours as needed for Nausea. Default History Genericprovider polyethylene glycol packet Take 240 mLs (17 g total) by mouth daily as needed for Constipation. Dissolve powder in 240 mL water Doc [facility] Simethicone 125 MG Cap Take 1-2 capsules by mouth see administration instructions. Take 1-2 softgels as needed after meals and at bedtime; max 4 softgels/day 02/18/25 Default History Genericprovider tiZANidine (ZANAFLEX) 2 MG tablet Take 1 tablet (2 mg total) by mouth every 8 (eight) hours as needed (Muscle spasms). 06/23/25 Default History Genericprovider tolnaftate (TINACTIN) 1 % powder Apply topically 2 (two) times daily as needed for Itching. DefaultHistory Genericprovider traMADol (ULTRAM) 50 MG tablet Take 1 tablet (50 mg total) by mouth every 6 (six) hours as needed for Pain. Default History Genericprovider Allergies Allergen Reactions Sulfa Antibiotics Unknown Wellbutrin [Bupropion] Unknown Per MD documentation Review of Systems Constitutional: Positive for malaise/fatigue. Negative for chills and fever. HENT: Negative for ear pain, sore throat and tinnitus. Eyes: Negative for blurred vision and pain. Respiratory: Positive for cough and shortness of breath. Negative for hemoptysis. Cardiovascular: Negative for chest pain and palpitations. Gastrointestinal: Negative for diarrhea, melena, nausea and vomiting. Genitourinary: Negative for dysuria and hematuria. Musculoskeletal: Negative for neck pain. Skin: Negative for rash. Neurological: Negative for speech change, seizures and headaches. Endo/Heme/Allergies: Negative for polydipsia. Does not bruise/bleed easily. Psychiatric/Behavioral: Negative for memory loss. The patient does not have insomnia. Physical Exam Filed Vitals: 07/24/25 0945 07/24/25 1000 07/24/25 1015 07/24/25 1030 BP: 112/66 106/58 133/73 107/68 Pulse: (!) 101 (!) 107 (!) 101 93 Resp: Temp: TempSrc: SpO2: Weight: Height: Physical Exam: Physical Exam Vitals reviewed. Constitutional: General: She is not in acute distress. Appearance: She is well-developed. HENT: Head: Normocephalic and atraumatic. Nose: No mucosal edema. Eyes: Pupils: Pupils are equal, round, and reactive to light. Neck: Vascular: No carotid bruit or JVD. Cardiovascular: Rate and Rhythm: Normal rate and regular rhythm. No extrasystoles are present. Heart sounds: S1 normal and S2 normal. Murmur heard. No gallop. Pulmonary: Effort: Pulmonary effort is normal. No respiratory distress. Breath sounds: Normal breath sounds. Abdominal: Palpations: Abdomen is soft. Tenderness: There is no abdominal tenderness. Musculoskeletal: General: No deformity. Normal range of motion. Cervical back: Neck supple. Right lower leg: Edema present. Left lower leg: Edema present. Skin: General: Skin is warm and dry. Neurological: Mental Status: She is alert and oriented to person, place, and time. Cranial Nerves: No cranial nerve deficit. Psychiatric: Behavior: Behavior normal. Thought Content: Thought content normal. Recent Labs Lab 07/22/25112607/23/25 0542 07/24/25 0553 WBC 9.33 7.44 7.10 HGB 9.5* 8.4* 8.7* HCT 32.0* 28.4* 29.5* MCV 99.1* 97.9 100.0* PLT 277 254 242 Recent Labs Lab 07/22/25 1127 07/23/25 0542 07/24/25 0553 NA 134* 137 137 K 6.1* 4.2 4.2 CL 99 101 101 CO2 25.2 27.1 26.3 AGAP 9.8 8.9 9.7 BUN 54* 29* 43* CR 5.43* 3.19* 4.29* BUNCREATININ 9.9 9.1 10.0 GLU 144* 66* 129* CA 10.3* 9.9 9.5 TP 6.9 6.0* 6.3* ALB 2.4* 2.1* 2.2* TBIL 0.7 0.8 0.9 ALKP 251* 219* 230* AST 130* 269* 139* ALT 69* 167* 143* No results for input(s): APTT, INR, PTT in the last 168 hours. Recent Labs Lab 07/23/25 0542 07/24/25 0553 NA 137 137 K 4.2 4.2 CL 101 101 CO2 27.1 26.3 BUN 29* 43* CR 3.19* 4.29* CA 9.9 9.5 GLU 66* 129* AGAP 8.9 9.7 TP 6.0* 6.3* ALB 2.1* 2.2* ALT 167* 143* WBC 7.44 7.10 HGB 8.4* 8.7* PLT 254 242 HGBA1C 7.4* -- TSH 2.910 -- Results for orders placed or performed during the hospital encounter of 07/22/25 (from the past 52 weeks) CULTURE URINE Collection Time: 07/22/25 5:13 PM Specimen: URINE, STRAIGHT CATH Result Value Ref Range SPEC DESCRIPTION URINE STRAIGHT CATH SPECIAL REQUESTS NO SPECIAL REQUEST CULTURE RESULT (A) 1,000-9,000 COL/ML ETIENNE ALBICANS SUSCEPTIBILTY NOT ROUTINELY PERFORMED. SAVING ISOLATE FOR 5 DAYS. CONTACT MICROBIOLOGY DEPARTMENT IF FURTHER WORKUP IS INDICATED. Results for orders placed or performed during the hospital encounter of 07/22/25 (from the past 52 weeks) CULTURE, BACTERIA, BLOOD Collection Time: 07/22/25 11:27 AM Specimen: BLOOD Result Value Ref Range SPEC DESCRIPTION BLOOD SPECIAL REQUESTS NO SPECIAL REQUEST CULTURE RESULT NO GROWTH 1 DAY CULTURE, BACTERIA, BLOOD Collection Time: 07/22/25 11:27 AM Specimen: BLOOD Result Value Ref Range SPEC DESCRIPTION BLOOD SPECIAL REQUESTS NO SPECIAL REQUEST CULTURE RESULT NO GROWTH 1 DAY Recent Labs Lab 07/22/25 1127 07/22/25 1338 TROP 62* 56* EKG: Results for orders placed or performed during the hospital encounter of 07/22/25 ECG 12 lead Narrative [address] Test Date: 2025-07-22 Pat Name: ZANDER ADLER Department: 41 Room: [facility] 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 Comparison:None. Technique: AP and lateral views of the right foot obtained portably. Findings: The bones are diffusely demineralized. Soft tissue swelling overlies the medial aspect of the hindfoot. Mild osteoarthritis affects the first metatarsophalangeal joint. There is mild scattered interphalangeal joint osteoarthritis. Mild to moderate osteoarthritis affects the midfoot. Plantar and posterior calcaneal enthesophytes are noted. No radiographic evidence is seen to suggest acute fracture or malalignment of the bones of the right foot. There are atherosclerotic calcifications. Amorphous calcifications posterior and anterior to the lower leg are nonspecific but could be related to prior injury. There are hammertoe deformities of the lesser toes. IMPRESSION: 1. Diffusely demineralized bones without evidence to suggest acute fracture or malalignment of the bones of the right foot. 2. Osteoarthritis as above. 3. Soft tissue swelling overlying the medial aspect of the hindfoot. Referred By: Interpreted By: Jac Lara DO, 07/24/2025 2:12 AM [facility] DUPLEX LOW EXT JONATAN Result Date: 07/23/2025 VENOUS DUPLEX IMAGING BILATERAL LOWER EXTREMITY VASCULAR LAB Pat.Name: ZANDER ADLER Pat.ID: [id number] St.Date: 07/22/2025 Refer.: [id number], Live zhang Exam Time: 3:33:00 PM Study Type:SHANON VS Venous Duplex Legs JONATAN Height: 67 in Age: 9 1945,80Y Sex: F Sonogrphr: Best Eddy RDMS, RVT History / Clinical:BLE edema Procedures: Linda scale, Color Doppler imaging, Doppler Spectral Analysis Race: W ++++++++++++++++++++++++++++++++++++ SUMMARY: ++++++++++++++++++++++++++++++++++++ Right leg: There are NO apparent, deep or superficial vein, ACUTE character venous filling defects visualized in the common femoral, proximal deep femoral, femoral, popliteal, gastrocnemius, posterior tibial, peroneal, great saphenousveins. Resting venous flow is phasic and significantly pulsatile. Left leg: There are NO apparent, deep or superficial vein, ACUTE character venous filling defects visualized in the common femoral, proximal deep femoral, femoral, popliteal, gastrocnemius, posterior tibial, peroneal, great saphenousveins. Resting venous flow is phasic and significantly pulsatile. Limited exam bilaterally due to patients condition, lower extremity swelling, and patients pain tolerance with compression. CONCLUSION: Limited exam bilaterally due to patients condition, lower extremity swelling, and patients pain tolerance with compression. No evidence of acute DVT or SVT seen in the bilateral lower extrmities. Pulsatile venous flows are suggestive of central venous hypertension (CHF, pulmonary HTN, right heart failure), though this may be a normal finding in a young, healthy patient. <Electronic Signature> 07/23/2025 09:59 PM Nikhil Andrews M.D. USE ECHOCARDIOGRAM W CON Result Date: 07/23/2025 Echocardiography Report Pat.Name: ZANDER ADLER Pat.ID: [id number] .Date: 07/23/2025 Exam Time: 1:08:00 PM Study Type:ECHO WITH CARDIAC DOPPLER COMP Height: 66 in Weight: 270 lb BSA: 2.27 m2 Age: 9 1945,80Y Sex: F BP: 109/52 HR: 107 bpm Sonogrphr: Whitney Velazquez [facility] Pat. Stat.:InpatientRoom: [facility] Reason for Study:Congestive heart failure History / Clinical:BLE edema Procedures: 2D, M-mode, Doppler, Color Flow, Definity was used to enhance endocardial definition. The study quality istechnically difficult. Race: W ++++++++++++++++++++++++++++++++++++ SUMMARY: +++++++++++++++++++++++ +++++++++++++ Left ventricle is normal in size with low normal systolic function Estimated EF of 50-55% Moderate LVH Right ventricle is enlarged with low normal systolic function Moderate to severe aortic stenosis Mild to moderate mitral and pulmonic regurgitation Moderate tricuspid regurgitation Moderate pulmonary hypertension. Mildly dilated ascending aorta. ++++++++++++++++++++++++++++++++++++FINDINGS: ++++++++++++++++++++++++++++++++++++ LV: The left ventricular size is normal. The left ventricular systolic function is lower limits of normal. Estimated left ventricular ejection fraction is 50-55%. Moderate concentric left ventricular hypertrophy. Left ventricular diastolic function is not reliably assessed. WM: Wall motion appears normal in all segments. RV: The right ventricular size is mild to moderately enlarged. Right ventricular systolic function is at the lower limit of normal. IVS: No evidence of ventricular septal defect. LA: The left atrial volume is severely increased (>48 ml/M2). RA: Right atrial size is mildly enlarged. IAS: Atrial septum appears intact. WILNER: No evidence of pericardial effusion. AO: The sinus of Valsalva measures 3.9cm. The proximal ascendingaorta measures 4.1cm. PA: Estimated right atrial pressure of 8 mmHg. SVn: Inferior vena cava is notdilated. Inferior vena cava shows <50% collapse with respiration consistent with elevated right atrial pressure. AV: The aortic valve is trileaflet. Moderate to severe aortic valve stenosis. The peak velocity across the aortic valve measures 4.19m/sec with a peak gradient of 70mmHg and a mean gradient of 40mmHg. The calculated aortic valve area is 0.9cm2. No evidence of aortic valve regurgitation. Moderate to severe calcification of aortic valve leaflets. MV: Mild to moderate mitral regurgitation. No evidence of mitral stenosis. Moderate thickening of mitral valve leaflets. PV: No evidenceof pulmonic valve stenosis. Mild to moderate pulmonic regurgitation. TV: Moderate tricuspid regurgitation. Right ventricular systolic pressure is 50-60 mmHg suggestive of moderate pulmonary hypertension. No evidence of tricuspid valve stenosis. ++++++++++++++++++++++++++++++++++++ MEASUREMENTS: ++++ ++++++++++++++++++++++++++++++++ DOPPLER LVOT LVOTpkPG 6 mmHg LVOTmnPG 3 mmHg LVOTpkVel 127 cm/s (70-110)+* LVOT SV 69 ml LVOT TVI 22 cm Right Atrium RA Press 8 mmHg Rasmussen's Disk 20 AV Forward Flow AV TVI 75 cm AV pkPG 61 mmHg AV pkVel 392 cm/s (100-170)+* Area (TVI) 0.92 cm2 (3-5)* AV mnPG 36 mmHg Area (Lee) 1.02 cm2 (3-5)* MV Forward Flow MV DeTm 194 msec MV P1/2t 57 msec (30-60)+ MVA P1/2t 3.86 cm2 (4-6)* MV pkE 155 cm/s (60-130)+* PV Forward Flow PV pkVel 107 cm/s (60-90)+* PV AC 89 msec PV pkPG 5 mmHg TV Regurg Flow TV pkPG 50 mmHg TV pkVel 354 cm/s (30-70)* Right Ventricle RVsys P 58 mmHg Right Ventricle 10.9 cm/s Lat E' Lat e 13.5 cm/s Lat E/E' Lat E/e 11.5 Med E' Med e 8.44 cm/sMed E/E' Med E/e 18.4 Aortic Valve Aortic Valve Ar 0.41 Aortic Valve Ve 0.32 AV DI Value 0.29 Left Ventricle LV IVRT 33 msec PV Antegrade Flow Acceleration Sl 1030 cm/s2 2D Left Ventricle LVIDd 5.13cm (3.6-5.2) LV ESV 23.2 ml LVIDs 3.87 cm (2.3-3.9) LV ESV 53.7 ml LngAxd 7.61 cm LVESV BP 35.2 mlLngAxd 7.93 cm LV EF 57.4 % LV EDV 54.5 ml LV EF 53.3 % LV EDV 115 ml LV EF BP 56.4 % LVEDV BP 80.7ml LV SV 31.3 ml LngAxs 6.53 cm LV SV 61.3 ml LngAxs 6.64 cm LV SV BP 45.5 ml LVPW LVPWd 1.38 cm Ventricular Septum IVSd 1.39 cm Left Atrium LA VOLBP 179 ml Aorta Ao Rtd 3.9 cm Ao Asc 4.1 cm (2.1-3.4)* LVOT LVOT 2 cm LVOTArea 3.14 cm2 Ratios IVS Inferior vena cava IVC Diam 17.9 mm LA Biplane LAVol I BP 78.9 ml/m2 RA Single Plane Right Atrium MO 17.7 mm Right Atrium Sy 71.1 ml Right Atrium Sy 61.4mm Right Atrium Sy 31.3 ml/m2 Right Atrium Sy 22.6 cm2 Right Ventricle Right Ventricle 45.6 mm Right Ventricle 38.3 mm Major Point [place] 68.2 mm MMODE TA Tricuspid Annul 15.2 mm <Electronic Signature> 07/23/2025 03:59 PM Real Hodges M.D. 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 PULMONARY EMBOLUS PROTOCOL CLINICAL INDICATION: 80-year-old female. Reason for examination: Nodule in the right upper lobe. Possible atypical pneumonia, atrial fibrillation look for pulmonary embolus. Abnormal chest x-ray . TECHNIQUE: CT acquisition was performed according to the standard protocol from the aortic arch to the upper abdomen during the pulmonary enhancement phase of an intravenous contrast bolus of 80 cc of Isovue 370. Intravenous contrast injected into indwelling access in the right antecubital fossa. No adverse contrast reaction reported. Additional coronal 3-D reconstructions and postprocessing volume rendered MIP vascular images of the pulmonary arteries was performed. Dose lowering technique was used for this study which may include, but is not limited to, dose reduction techniques, automated exposure control, use of iterative reconstruction and ALARA (As low As Reasonably Achievable)/Image Gently techniques. COMPARISON: Portable AP view of the chest07/22/2025 and 01/11/2024 CT of the chest without contrast 07/18/2016 and 07/11/2016 Thyroid ultrasound07/14/2016 CT cervical spine without contrast 04/12/2022 Nuclear medicine VQ scan 07/11/2016 FINDINGS:The study was technically adequate to the lobar level only. No intraluminal filling defects, wall th ickening, or thrombus is present in the pulmonary arterial vascular tree to the lobar level suggestpulmonary embolus . A segmental or subsegmental pulmonary embolus would not be seen on this study due to respiratory motion and a small, renal preserving bolus. Lower neck/chest soft tissues: The partially calcified lesion in the right upper chest right lower neck supraclavicular region is redemonstrated and is seen to be large calcified right thyroid nodule, stable evaluated and noted since 2016. Most recently nearly identical appearance on CT of the cervical spine. Today this measures 4.1 x 2.7 x 3.8 cm similar to that documented on the thyroid ultrasound of 2016. Additional calcified and no ncalcified nodules in the enlarged left and right lobe of the thyroid in keeping with the given diagnosis of previous imaging of multinodular goiter. There are scattered calcifications throughout theleft and right breast tissues. Might consider referral to breast imaging Center for further evaluation Numerous spiderlike opacified ectatic superficial right breast wall and right subclavian and axillary vein varicosities may be sequela of right upper extremity AV fistula. Lungs/pleura: There is asmall left pleural effusion and overlying larger area of dense consolidation and atelectasis suspect for infectious inflammatory consolidative pneumonia involving the lingula and the left lower lobe.Left upper lobe clear and the right lung is clear. There is subtle dependent interlobular septal thickening hazy posterior groundglass opacity which could represent mild pulmonary edema or reflectiveof fluid/volume overload. Heart/great vessels/aorta: Stable measured ectasia ascending aorta maximal diameter 40 mm unchanged since 2016. Normal caliber aortic arch descending aorta and suprarenal aorta. Widespread calcific atherosclerosis of the aorta and heavy plaque at the ostia the celiac trunkand SMA and right and left renal arteries has increased since 2016. Since December 2023 the patient has received of right IJ hemodialysis catheter and the tips are in good position at the right atrial SVC junction. Mild cardiomegaly due to four-chamber enlargement. Aortic valve and coronary artery calcifications. Small, 8mm probably physiologic pericardial effusion. Mild hepatic venous reflux probably chronically elevated right heart pressures or fluid/volume overload. Mediastinum/itzel: There is no mediastinal or hilar or axillary lymphadenopathy. Esophagus unremarkable. No evidence of thoracic aortic dissection. Upper abdomen: Scattered granulomata throughout the liver and spleen mild diffuse hepatic steatosis. Status post cholecystectomy. Tiny bilateral atrophic kidneys. Calcified enlargedright adrenal gland, likely calcified adenoma unchanged since 2016. Small hypodense left adrenal gland nodule also unchanged since 2016, probably stable adenoma. Bone window imaging: No acute or pathologic bony abnormality. Widespread diminished bone density exaggeration thoracic kyphosis long segment anterior longitudinal ligament calcification may be DISH.. IMPRESSION: 1. No CT evidence of pulmonary embolus to the lobar level as above 2. Large area of consolidative opacity left lower lobe probably infectious inflammatory consolidative pneumonia. 3. Small, probably associated left pleural effusion 4. Mild findings suggestive of dependent pulmonary edema or could be fluid/volume overload 5. The calcified lesion in the right upper lung is seen to be calcified thyroid nodule. Additional stable findings of multinodular goiter. 6. Cardiomegaly with small possibly physiologic pericardial effusion. 7. Stable large calcified right adrenal adenoma and small left adrenal adenoma 8. Scattered calcifications more numerous in the left than the right breast;might consider referral to breast imaging Center for further evaluation 9. Right upper extremity opacified ectatic venous varicosities from the subclavian and axillary veins may be related to prior right upper extremity AV fistula. This should be confirmed in the medical record. Referred By: Interpreted By: Deborah Sexton DO, 07/22/2025 3:[address] HEAD WO CON Result Date: 07/22/2025 [facility] [address] [place], [place] [address] EXAM: CT HEAD WO CON DATE: 07/22/2025 12:27 PM INDICATION: Altered mental status. TECHNIQUE: Transverse images through the head were obtained without intravenous contrast. A radiation dose lowering technique was used for this procedure, which may include, but is not limited to, dose reduction technique, automated exposure control, the use of iterative reconstruction, ALARA (As Low As Reasonably Achievable) techniques, and Image Gently techniques. COMPARISON: CT head 01/07/2024 FINDINGS: Motion degraded examination despite repeated imaging, limiting the sensitivity of this exam. There is no evidence ofacute intracranial hemorrhage. No evidence of abnormal intra or extra axial fluid collections. The ventricles in extra-axial spaces are mildly prominent compatible with global volume loss and similarto prior. No evidence of mass, mass effect, or midline shift. Diffuse low-density within the white matter again consistent with chronic microangiopathy, similar to prior. No definite CT findings of acute territorial infarction, within limitations of motion. No calvarial fracture is seen. Diffuse permeative appearance of the calvarium. Diffuse opacification of the left maxillary sinus. Bilateral mastoid air cell effusion. The globes and orbits are symmetric and grossly unremarkable. IMPRESSION: 1. Motion degraded examination despite repeated imaging, limiting the sensitivity of this exam. 2. No definite CT findings of acute territorial infarction, within limitations of motion. 3. Senescent changes of global volume loss and chronic microangiopathy. 4. Diffuse permeative appearance of the calvarium. This is nonspecific but given the history of ESRD with hemodialysis this likely is secondary to renal osteodystrophy. 5. Diffuse opacification of the left maxillary sinus. Bilateral mastoid air cell effusion. Ordered By: HEATHER GUEVARA Interpreted By: Irvin Hernandez MD, 07/22/2025 12:52 PM XR CHEST PORTABLE Result Date: 07/22/[address] [address] IMAGINGSTUDIES: XR CHEST PORTABLE DATE: 07/22/2025 11:40 AM HISTORY: new o2 requirement 72-year-old female.Altered mental status during dialysis. Reported temperature of 100.3 prior to dialysis treatment 1 (did not receive dialysis today). Patient's daughter reports the patient was released from [facility] on 07/01/2025 after treatment for urinary tract infection. COMPARISON: Chest portable 01/11/2024 and 01/07/2024. DISCUSSION: Portable AP upright view of the chest. Rightward rotated. 2.8 x 2.6 cmpartially calcified lesion projecting in the right upper chest and right lower neck/supraclavicular region which is not evident on the prior studies. Differential diagnosis would primarily include calcified enlarged lymph node or potential progression of vascular calcification. Right chest tunneleddialysis catheter with tip in the inferior right atrium is new since 01/11/2024. Stable cardiomegaly. No acute pulmonary vascular congestion. Aortic atherosclerotic calcifications. Low lung volumes but similar to prior studies. Chronic bilateral lung parenchymal scarring and pleural scarring. No appreciable significant pulmonary infiltrate or consolidation. No apparent pleural effusion or pneumothorax. Degenerative changes spine and shoulders. IMPRESSION: 1. Cardiomegaly. No acute pulmonary vascular congestion. Tunneled right chest dialysis catheter is new since 01/11/2024. 2. No apparent new pulmonary infiltrate or consolidation. 3. Partially calcified 2.8 cm lesion projecting in the right upper chest to right lower neck is not evident on 2023 radiographs. Could be further evaluated on nonemergent elective CT if clinically indicated. Ordered By: HEATHER GUEVARA Interpreted By: Aron Aguilar, 07/22/2025 12:08 PM Assessment Principal Problem: Severe sepsis ([facility]) SNOMED CT(R): SEPSIS Moderate to severe Moderate TR ESRD Plan - moderate to severe, not clear symptomatic. Would continue to follow with outpatient echos and discuss further. If continued difficulty with hypotension on HD, once infection cleared, then could have more urgent discussion with structural team AFib with RVR - chronic afib, probably mildly tachycardic given illness. Would not aggressively treat right now, given HRs seem to be in general < 120. Can consider adding amio or dilt, if needed,if HRs remain above 100 prior to discharge. 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[facility] CHF (congestive heart failure) ([facility]) CKD (chronic kidney disease), stage IV ([facility]) on dialysis Depression Diabetes ([facility]) Dysphagia Encephalopathy ESBL (extended spectrum beta-lactamase) producing bacteria infection Hearing loss Heart attack ([facility]) HLD (hyperlipidemia) Hypertension, essential Hypertensive urgency Insomnia Kidney stone MRSA (methicillin resistant Staphylococcus aureus) Nonrheumatic aortic (valve) insufficiency Osteoporosis PONV (postoperative nausea and vomiting) Pulmonary hypertension ([facility]) Seizure ([facility]) 06/06/2021 as per daugther Stable burst fracture of unspecified lumbar vertebra, subsequent encounter for fracture with delayed healing Stroke ([facility]) Unspecified dementia, unspecified severity, without behavioral disturbance, psychotic disturbance, mood disturbance, and anxiety (CMS/HCC) Urinary retention UTI (urinary tract infection) Vitamin D deficiency [2] Past Surgical History: Procedure Laterality Date BREAST LUMPECTOMY Right CATARACT EXTRACTION CHOLECYSTECTOMY HC URETERAL STENT - OR SUSPENSION BLADDER [3] Social History Tobacco Use Smoking status: Never Smokeless tobacco: Never Substance Use Topics Alcohol use: No Drug use: No [4] Family History Problem Relation Name Age of Onset Ovarian Cancer Mother Diabetes Father Hypertension Sister Stroke Sister Other (brain aneurysm) Sister Stroke Brother * Eduarda Alejandre MD - 07/22/2025 9:58 PM CDTAssociated Order(s): IP CONSULT TO NEPHROLOGY Nephrology Consult Note Attending Provider: Elizabeth Haley MD PCP: CARL MALONEY MD Zander Adler is an 80-year-old female. Reason for Admission: Severe sepsis due to Streptococcus pneumoniae with acute organ dysfunction (CMS/HCC HHS/HCC) Reason for Consult: ESRD on HD HPI: Mrs. Adler a 76 y.o female with hx ESRD on chronic HD MWF, breast cancer, A.fib, Hypertension, DM, hx of seizure, nephrolithiasis, CHF. -patient went to dialysis today but had fever and AMS for which was sent here. [facility] It was reported that patient has been having worsening legs pain for few weeks, also family noted that mental status has been off over the last week and progressing. Slade was seen at [facility] ER last week and couldn't tolerated doing legs US with her legs pain, slade was diagnosed with UTI; pseudomonas and was given Abx IV then PO. Also noted that since discharged she was having more nasal discharge for which her PCP prescribed her duoneb treatments and oxygen supplementation. -patient is lethargic and sleepy for which I was not able to get much information from her. Home medications includes but not limited to metoprolol 25mg BID, eliquis, iron, insulin, rosuvastatin Past Medical History[1] Allergies: Allergies Allergen Reactions Sulfa Antibiotics Unknown Wellbutrin [Bupropion] Unknown Per MD documentation Social History Tobacco Use Smoking status: Never Smokeless tobacco: Never Substance Use Topics Alcohol use: No Past Surgical History[2] Family History[3] No current facility-administered medications on file prior to encounter. Current Outpatient Medications on File Prior to Encounter Medication Sig acetaminophen (TYLENOL) 500 MG tablet Take 2 tablets (1,000 mg total) by mouth 2 (two) times a day. ARIPiprazole (ABILIFY) 2 MG tablet Take 1.5 tablets (3 mg total) by mouth nightly. busPIRone (BUSPAR) 5 MG tablet Take 1 tablet (5 mg total) by mouth 3 (three) times daily. cranberry 500 MG Cap Take 1 tablet (500 mg total) by mouth 3 (three) times daily with meals. docusate sodium (COLACE) 100 MG capsule Take 1 capsule (100 mg total) by mouth 2 (two) times daily as needed for Constipation. (Patient taking differently: Take 2 capsules (200 mg total) by mouth nightly.) ELIQUIS 5 MG tablet Take 1 tablet (5 mg total) by mouth 2 (two) times daily. ferrous sulfate EC 324 (65 Fe) MG tablet Take 1 tablet (324 mg total) by mouth every other day. Takes on Mon, Tue, Tue fluconazole (DIFLUCAN) 150 MG tablet Take 1 tablet (150 mg total) by mouth every 7 days. Takes on saturdays Insulin Glargine-yfgn 100 UNIT/ML Solution Pen-injector Inject 25 Units into the skin every morning. methylphenidate (RITALIN) 10 MG tablet Take 1 tablet (10 mg total) by mouth 2 (two) times daily. TAKE WITH MEALS BREAKFAST AND LUNCH metoprolol tartrate (LOPRESSOR) 25 MG tablet Take 1 tablet (25 mg total) by mouth 2 (two) times daily. NOVOLOG FLEXPEN 100 UNIT/ML injection (PEN) Inject into the skin 2 (two) times daily before meals. Sliding scale BS 200-250 = 4 units BS 251-300 = 6 units BS 301 - 350 = 8 units BS 351 - 400 = 12 units BS 401-500 = 12 units, call MD if greater than 400 rosuvastatin (CRESTOR) 10 MG tablet Take 1 tablet (10 mg total) by mouth nightly at bedtime. sertraline (ZOLOFT) 50 MG tablet Take 1 tablet (50 mg total) by mouth daily. Tenapanor HCl, CKD, (XPHOZAH) 30 MG Tab Take 1 tablet by mouth 2 (two) times a day. vitamin B-12 (CYANOCOBALAMIN) 1000 mcg tablet Take 1 tablet (1,000 mcg total) by mouth nightly. zolpidem (AMBIEN) 5 MG tablet Take 1 tablet (5 mg total) by mouth nightly. Takes for hypersomnia BD ECLIPSE SYRINGE 25G X 1 3 ML Misc BD PEN NEEDLE LG 2ND GEN 32G X 4 MM Misc daily. Cetirizine HCl 10 MG Cap Take 10 mg by mouth daily as needed (Allergies). guaiFENesin ER (MUCINEX) 600 MG 12 hr tablet Take 2 tablets (1,200 mg total) by mouth 2 (two) timesdaily as needed for Congestion. ipratropium-albuterol (DUONEB) 0.5-2.5 (3) MG/3ML Solution Take 3 mLs by nebulization every 4 (four) hours as needed (Shortness of breath). miconazole (MONISTAT) 2 % vaginal cream Place 1 applicator vaginally nightly as needed (Fungal infection). nitroglycerin (NITROSTAT) 0.[address] 1 tablet (0.4 mg total) under the tongue every 5 (five) minutes as needed for Chest Pain. If taking 3rd dose, contact 911 nystatin (MYCOSTATIN) powder Apply topically 4 (four) times daily as needed (Fungal infection). ondansetron (ZOFRAN) 4 MG tablet Take 1 tablet (4 mg total) by mouth every 8 (eight) hours as needed for Nausea. polyethylene glycol packet Take 240 mLs (17 g total) by mouth daily as needed for Constipation. Dissolve powder in 240 mL water Simethicone 125 MG Cap Take 1-2 capsules by mouth see administration instructions. Take 1-2 softgels as needed after meals and at bedtime; max 4 softgels/day tiZANidine (ZANAFLEX) 2 MG tablet Take 1 tablet (2 mg total) by mouth every 8 (eight) hours as needed (Muscle spasms). tolnaftate (TINACTIN) 1 % powder Apply topically 2 (two) times daily as needed for Itching. traMADol (ULTRAM) 50 MG tablet Take 1 tablet (50 mg total) by mouth every 6 (six) hours as needed for Pain. Medications Discontinued During This Encounter Medication Reason vancomycin pharmacy to dose placeholder rojasloxacillin (DYNAPEN) 250 MG capsule Error heparin (porcine) injection 5,000 Units Ordering Physician nystatin (MYCOSTATIN) powder Error ondansetron (ZOFRAN-ODT) 4 MG disintegrating tablet Error vancomycin pharmacy to dose placeholder Ordering Physician nystatin (MYCOSTATIN) cream Error traMADol (ULTRAM) 50 MG tablet Error BASAGLAR KWIKPEN 100 UNIT/ML injection (PEN) Error sodium chloride 0.9% infusion Ordering Physician sodium chloride 0.9% bolus infusion 250 mL Ordering Physician ceFEPIme (MAXIPIME) 1 g in sodium chloride 0.9 % 50 mL IVPB Current Facility-Administered Medications Medication Dose Route Frequency Provider Last Rate Last Admin acetaminophen (TYLENOL) tablet 650 mg 650 mg Oral Q4H PRN JOSE Mills Or acetaminophen (TYLENOL) suppository 650 mg 650 mg Rectal Q4H PRN JOSE Mills [START ON 07/23/2025] ceFEPIme (MAXIPIME) 1 g in sodium chloride 0.9 % 50 mL IVPB 1 g Intravenous Q24H JOSE Mills HYDROcodone-acetaminophen (NORCO) 5-325 MG tablet 1 tablet 1 tablet Oral Q6H PRN JOSE Mills HYDROmorphone (DILAUDID) injection 0.2 mg 0.2 mg Intravenous Q3H PRN JOSE Mills 0.2 mg at 07/22/25 1502 naLOXone (NARCAN) injection 0.4 mg 0.4 mg Intravenous PRN JOSE Mills ondansetron (ZOFRAN) injection 4 mg 4 mg Intravenous Q8H PRN JOSE Mills polyethylene glycol (GLYCOLAX) packet 17 g 17 g Oral Daily PRN JOSE Mills Current Outpatient Medications Medication Sig Dispense Refill acetaminophen (TYLENOL) 500 MG tablet Take 2 tablets (1,000 mg total) by mouth 2 (two) times a day. ARIPiprazole (ABILIFY) 2 MG tablet Take 1.5 tablets (3 mg total) by mouth nightly. busPIRone (BUSPAR) 5 MG tablet Take 1 tablet (5 mg total) by mouth 3 (three) times daily. cranberry 500 MG Cap Take 1 tablet (500 mg total) by mouth 3 (three) times daily with meals. docusate sodium (COLACE) 100 MG capsule Take 1 capsule (100 mg total) by mouth 2 (two) times daily as needed for Constipation. (Patient taking differently: Take 2 capsules (200 mg total) by mouth nightly.) 30 capsule 0 ELIQUIS 5 MG tablet Take 1 tablet (5 mg total) by mouth 2 (two) times daily. ferrous sulfate EC 324 (65 Fe) MG tablet Take 1 tablet (324 mg total) by mouth every other day. Takes on Tue, Tue, Tue fluconazole (DIFLUCAN) 150 MG tablet Take 1 tablet (150 mg total) by mouth every 7 days. Takes on saturdays Insulin Glargine-yfgn 100 UNIT/ML Solution Pen-injector Inject 25 Units into the skin every morning. methylphenidate (RITALIN) 10 MG tablet Take 1 tablet (10 mg total) by mouth 2 (two) times daily. TAKE WITH MEALS BREAKFAST AND LUNCH metoprolol tartrate (LOPRESSOR) 25 MG tablet Take 1 tablet (25 mg total) by mouth 2 (two) times daily. NOVOLOG FLEXPEN 100 UNIT/ML injection (PEN) Inject into the skin 2 (two) times daily before meals. Sliding scale BS 200-250 = 4 units BS 251-300 = 6 units BS 301 - 350 = 8 units BS 351 - 400 = 12 units BS 401-500 = 12 units, call MD if greater than 400 rosuvastatin (CRESTOR) 10 MG tablet Take 1 tablet (10 mg total) by mouth nightly at bedtime. sertraline (ZOLOFT) 50 MG tablet Take 1 tablet (50 mg total) by mouth daily. Tenapanor HCl, CKD, (XPHOZAH) 30 MG Tab Take 1 tablet by mouth 2 (two) times a day. vitamin B-12 (CYANOCOBALAMIN) 1000 mcg tablet Take 1 tablet (1,000 mcg total) by mouth nightly. zolpidem (AMBIEN) 5 MG tablet Take 1 tablet (5 mg total) by mouth nightly. Takes for hypersomnia BD ECLIPSE SYRINGE 25G X 1 3 ML Misc BD PEN NEEDLE LG 2ND GEN 32G X 4 MM Misc daily. Cetirizine HCl 10 MG Cap Take 10 mg by mouth daily as needed (Allergies). guaiFENesin ER (MUCINEX) 600 MG 12 hr tablet Take 2 tablets (1,200 mg total) by mouth 2 (two) timesdaily as needed for Congestion. ipratropium-albuterol (DUONEB) 0.5-2.5 (3) MG/3ML Solution Take 3 mLs by nebulization every 4 (four) hours as needed (Shortness of breath). miconazole (MONISTAT) 2 % vaginal cream Place 1 applicator vaginally nightly as needed (Fungal infection). nitroglycerin (NITROSTAT) 0.[address] 1 tablet (0.4 mg total) under the tongue every 5 (five) minutes as needed for Chest Pain. If taking 3rd dose, contact 911 25 tablet 3 nystatin (MYCOSTATIN) powder Apply topically 4 (four) times daily as needed (Fungal infection). ondansetron (ZOFRAN) 4 MG tablet Take 1 tablet (4 mg total) by mouth every 8 (eight) hours as needed for Nausea. polyethylene glycol packet Take 240 mLs (17 g total) by mouth daily as needed for Constipation. Dissolve powder in 240 mL water Simethicone 125 MG Cap Take 1-2 capsules by mouth see administration instructions. Take 1-2 softgels as needed after meals and at bedtime; max 4 softgels/day tiZANidine (ZANAFLEX) 2 MG tablet Take 1 tablet (2 mg total) by mouth every 8 (eight) hours as needed (Muscle spasms). tolnaftate (TINACTIN) 1 % powder Apply topically 2 (two) times daily as needed for Itching. traMADol (ULTRAM) 50 MG tablet Take 1 tablet (50 mg total) by mouth every 6 (six) hours as needed for Pain. Review of Systems: Unable to be obtained from patient with her lethargy and confusion except per HPI and after discussion with primary team and reviewing the records Vitals: Blood pressure 108/63, pulse (!) 102, temperature 98.5 ??F (36.9 ??C), resp. rate 16, height 1.676 m (5' 6), weight 121.7 kg (268 lb 4.8 oz), SpO2 94%. Physical Exam: -GENERAL: lethargic; on O2 NC -EYES: Extraocular movements intact -LUNG: coarse breath sounds -CVS: Regular rate rhythm, S1 and S2 normal -ABDOMEN: Soft, nondistended -Musculoskeletal / EXT: legs edema up to thighs and hips, left arm AVF with thrill and bruit -NEURO: lethargic, sleepy, not communicative and not following commands LABs I reviewed labs Recent Labs Lab 07/16/25 0943 07/22/25 1127 NA 131* 134* K 4.9 6.1* CL 97 99 CO2 28.1 25.2 AGAP 5.9 9.8 BUN 28* 54* CR 3.67* 5.43* BUNCREATININ 7.6 9.9 GLU 191* 144* CA 9.1 10.3* MAGNESIUM -- 2.0 Recent Labs Lab 07/22/25 1127 WBC 9.33 RBC 3.23* HGB 9.5* HCT 32.0* MCV 99.1* MCH 29.4 MCHC 29.7* PLT 277 RDW 15.8* MPV 10.0 Assessment/Plan: Mrs. Adler a 76 y.o female with hx ESRD on chronic HD MWF, breast cancer, A.fib, Hypertension, DM, hx of seizure, nephrolithiasis, CHF. -patient went to dialysis today but had fever and AMS for which was sent here. [facility] -recent admission to [facility]; treated for UTI / pseudomonas with Abx. ---ESRD on chronic HD MWF. She did not get her outpatient HD session. Hyperkalemia for which got a dose of lokelma in ED, recommending low K diet. Plan for HD today using low K bath. I reviewed chestfilm showing no PE. It showed opacitiy over the left lung field, small left pleural effusion, cardio megaly. ---A.fib with RVR; on metoprolol ---legs edema and pain; plan for doppler US ---suspected PMA with fever; on Abx per primary team ---DM; on insulin; management per primary team ---Anemia of CKD I personally spent a total of 77 minutes on the day of the encounter. Time spent reviewing the patient's medical records, obtaining history, performing exam, reviewing test results, ordering medications / tests, documenting in the medical records. The time excludes time spent performing separately reportable services Thank you for allowing me to participate in the care of this patient. We will continue to follow this patient with you. Please contact us with further questions. 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[facility]) CHF (congestive heart failure) ([facility]) CKD (chronic kidney disease), stage IV ([facility]) on dialysis Depression Diabetes ([facility]) Dysphagia Encephalopathy ESBL (extended spectrum beta-lactamase) producing bacteria infection Hearing loss Heart attack ([facility]) HLD (hyperlipidemia) Hypertension, essential Hypertensive urgency Insomnia Kidney stone MRSA (methicillin resistant Staphylococcus aureus) Nonrheumatic aortic (valve) insufficiency Osteoporosis PONV (postoperative nausea and vomiting) Pulmonary hypertension ([facility]) Seizure ([facility]) 06/06/2021 as per daugther Stable burst fracture of unspecified lumbar vertebra, subsequent encounter for fracture with delayed healing Stroke ([facility]) Unspecified dementia, unspecified severity, without behavioral disturbance, psychotic disturbance, mood disturbance, and anxiety ([facility]) Urinary retention UTI (urinary tract infection) Vitamin D deficiency [2] Past Surgical History: Procedure Laterality Date BREAST LUMPECTOMY Right CATARACT EXTRACTION CHOLECYSTECTOMY HC URETERAL STENT - OR SUSPENSION BLADDER [3] Family History Problem Relation Name Age of Onset Ovarian Cancer Mother Diabetes Father Hypertension Sister Stroke Sister Other (brain aneurysm) Sister Stroke Brother documented in this encounter Nursing Notes * Brenda Pena RN - 07/26/2025 1:00 PM CDT HEMODIALYSIS POST TREATMENT NOTE REPORT GIVEN TO:Timothy Calloway RN GI ASSESSMENT:BS positive, Abdomen soft and non distended ISSUES REPORTED:Timothy Carr RN * Brenda Pena RN - 07/26/2025 9:05 AM CDT PRE TREATMENT NOTE ISOLATION:Decolonization CODE STATUS:Full HEPATITIS STATUS:Negative/Immune LOC ASSESSMENT:A&O with periods if being inappropriate TELE:yes O2 DEVICE:NC GI ASSESSMENT:Abdomen soft and non tender, BS positive EDEMA:generalized MEDS GIVEN:none FLUIDS/DRIPS:none PROCEDURES/TESTS:none REPORT RECEIVED FROM:Timothy Calloway RN * Breanne Bragg RN - 07/24/2025 6:30 PM CDT Pt's daughter at bedside states that pt does not wear any O2 at baseline. Pt only wore O2 PRN priorto admission to [place] in early June but since then has been on continuous O2 despite satting 99%. Attempting to wean O2 and will pass along in report. * Brenda Pena RN - 07/24/2025 12:00 PM CDT HEMODIALYSIS POST TREATMENT NOTE REPORT GIVEN TO: Deandre Bragg RN GI ASSESSMENT:Abdomen soft and non tender, BS positive ISSUES REPORTED: no issues * Brenda Pena RN - 07/24/2025 8:10 AM CDT PRE TREATMENT NOTE ISOLATION: STEPHANIE CODE STATUS:Full HEPATITIS STATUS:negative/immune LOC ASSESSMENT:A&O TELE:Yes O2 DEVICE:NC GI ASSESSMENT:BS positive, Abdomen soft, non distended, non tender EDEMA: Generalixd MEDS GIVEN:none FLUIDS/DRIPS: PROCEDURES/TESTS:none REPORT RECEIVED FROMDeandre Bragg RN: documented in this encounter ED Notes * Heather Guevara MD - 07/22/2025 11:34 AM CDT Emergency Department Note Chief Complaint Chief Complaint Patient presents with Altered Mental Status History of Present Illness This is a 80-year-old female with past medical history of A-fib on Eliquis, ESRD on HD Tuesday, Tuesday, Tuesday, diabetes, dementia who presents to the ER via EMS from dialysis due to altered mentalstatus and fever. Per EMS she had a temperature of 100.3. Daughter at bedside states that she has been sick with cough and congestion. Medical History ALLERGIES: Review of patient's allergies indicates: Allergen Reactions Sulfa Antibiotics Unknown Wellbutrin [Bupropion] Unknown Per MD documentation MEDICATIONS: Prior to Admission medications Medication Sig Start Date End Date Taking? Authorizing Provider acetaminophen 325 MG tablet Take 2 tablets (650 mg total) by mouth every 4 (four) hours as needed for Pain. Doc [facility] ARIPiprazole (ABILIFY) 2 MG tablet Take 1.5 tablets (3 mg total) by mouth nightly. Default History Genericprovider BASAGLAR KWIKPEN 100 UNIT/ML injection (PEN) Inject 10 Units into the skin daily. Patient taking differently: Inject 25 Units into the skin every morning. 05/25/22 Paulo Iglesias MD BD ECLIPSE SYRINGE 25G X 1 3 ML Misc 01/18/25 Default History Genericprovider BD PEN NEEDLE LG 2ND GEN 32G X 4 MM Misc daily. 11/30/24 Default History Genericprovider busPIRone (BUSPAR) 5 MG tablet 5 MG ORALLY THREE TIMES A DAY 12/01/24 Default History Genericprovider cranberry 500 MG Cap Take 1 tablet (500 mg total) by mouth 3 (three) times daily with meals. Doc [facility] docusate sodium (COLACE) 100 MG capsule Take 1 capsule (100 mg total) by mouth 2 (two) times daily as needed for Constipation. 05/25/22 Paulo Iglesias MD ELIQUIS 5 MG tablet Take 1 tablet (5 mg total) by mouth 2 (two) times daily. 02/02/25 Default History Genericprovider ferrous sulfate EC 324 (65 Fe) MG tablet Take 1 tablet (324 mg total) by mouth every other day. [facility] fluconazole (DIFLUCAN) 150 MG tablet Take 1 tablet (150 mg total) by mouth every 7 days. Default History Genericprovider Insulin Glargine-yfgn 100 UNIT/ML Solution Pen-injector INJECT 25 UNIT (0.25 ML) SUBCUTANEOUSLY EVERY MORNING 05/20/25 Default History Genericprovider methylphenidate (RITALIN) 10 MG tablet 10 MG ORALLY 2 TIMES PER DAY WITH MEALS BREAKFAST AND LUNCH 07/31/24 Default History Genericprovider metoprolol tartrate (LOPRESSOR) 25 MG tablet Take 1 tablet (25 mg total) by mouth 2 (two) times daily. 04/30/24 Default History Genericprovider nitroglycerin (NITROSTAT) 0.[address] 1 tablet (0.4 mg total) under the tongue every 5 (five) minutes as needed for Chest Pain. If taking 3rd dose, contact 911 03/26/25 SHAHLA Le NOVOLOG FLEXPEN 100 UNIT/ML injection (PEN) Inject into the skin 2 (two) times daily before meals. Sliding scale BS 200-250 = 4 units BS 251-300 = 6 units BS 301 - 350 = 8 units BS 351 - 400 = 12 units BS 401-500 = 12 units, call MD if greater than 400 12/21/21 Doc [facility] nystatin (MYCOSTATIN) cream apply 1 application on the skin twice a day 01/12/25 Default History Genericprovider ondansetron (ZOFRAN-ODT) 4 MG disintegrating tablet Take 1 tablet (4 mg total) by mouth every 6 (six) hours as needed. 04/03/24 Default History Genericprovider polyethylene glycol packet Take 240 mLs (17 g total) by mouth daily as needed for Constipation. Dissolve powder in 240 mL water Doc [facility] rosuvastatin (CRESTOR) 10 MG tablet Take 1 tablet (10 mg total) by mouth daily. Default History Genericprovider sertraline (ZOLOFT) 50 MG tablet Take 1 tablet (50 mg total) by mouth daily. 11/30/24 Default HistoryGenericprovider Tenapanor HCl, CKD, (XPHOZAH) 30 MG Tab Take 1 tablet by mouth daily. Default History Genericprovider vitamin B-12 (CYANOCOBALAMIN) 1000 mcg tablet Take 1 tablet (1,000 mcg total) by mouth daily. Doc [facility] zolpidem (AMBIEN) 5 MG tablet Take 1 tablet (5 mg total) by mouth nightly. Takes for hypersomnia Default History Genericprovider PAST MEDICAL HISTORY: Past Medical History[1] PAST SURGICAL HISTORY: Past Surgical History[2] FAMILY HISTORY: Family History[3] SOCIAL HISTORY: Social History[4] Review of Systems Review of Systems Constitutional: Positive for fever. HENT: Positive for congestion. Respiratory: Positive for cough. Psychiatric/Behavioral: Positive for confusion. Physical Exam Filed Vitals: 07/22/25 1123 07/22/25 1128 07/22/25 1200 07/22/25 1230 BP: 104/86 121/79 (!) 132/98 Pulse: (!) 128 (!) 129 (!) 129 Resp: Temp: 98.3 ??F (36.8 ??C) TempSrc: Axillary SpO2: 95% 95% 96% 97% Weight: 121.7 kg (268 lb 4.8 oz) Height: 1.676 m (5' 6) Physical Exam Vitals and nursing note reviewed. Constitutional: Appearance: She is well-developed. HENT: Head: Normocephalic and atraumatic. Cardiovascular: Rate and Rhythm: Tachycardia present. Rhythm irregular. Pulmonary: Effort: Pulmonary effort is normal. Breath sounds: Normal breath sounds. No stridor. Abdominal: Palpations: Abdomen is soft. Tenderness: There is no abdominal tenderness. Musculoskeletal: General: No deformity. Cervical back: Neck supple. Skin: General: Skin is warm and dry. Neurological: Mental Status: She is alert. 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 : 1945 Requested By: HEATHER GUEVARA Order Number: [id number] Reading MD: Measurements Intervals Point [place] Rate: 137 P: 0 UT: 0 QRS: -18 QRSD: 111 T: 68 QT: 295 QTc: 446 Interpretive Statements ATRIAL FIBRILLATION WITH RAPID VENTRICULAR RESPONSE POSSIBLE LATERAL MYOCARDIAL INFARCTION , OF INDETERMINATE AGE [30 ms Q WAVE IN I/aVL/V5/V6] Compared to ECG 07/17/2024 13:56:11 No significant changes LABORATORY STUDIES: Results for orders placed or performed during the hospital encounter of 07/22/25 CBC W/DIFF AUTOMATED Result Value Ref Range WBC 9.33 4.5 - 11.0 x10'3/uL RBC 3.23 (L) 4.20 - 5.40 x10'6/uL HGB 9.5 (L) 12.0 - 16.0 G/DL HCT 32.0 (L) 38.0 - 48.0 % MCV 99.1 (H) 81.0 - 99.0 FL MCH 29.4 27.0 - 31.0 PG MCHC 29.7 (L) 32.0 - 36.0 G/DL RDW 15.8 (H) 11.5 - 14.5 % PLT 277 130 - 400 x10'3/uL MPV 10.0 9.3 - 12.2 FL DIFFERENTIAL TYPE AUTOMATED DIFFERENTIAL NEUTROPHILS % 85.2 % LYMPHOCYTES % 6.9 % MONOCYTES % 6.2 % EOSINOPHILS 0.5 % BASOPHILS 0.4 % IMMATURE GRANS % 0.8 % ABS. NEUTROPHILS 7.95 (H) 1.80 - 7.70 x10'3/uL ABS. LYMPHOCYTES 0.64 (L) 1.00 - 4.80 x10'3/uL ABS. MONOCYTES 0.58 0.24 - 0.86 x10'3/uL ABS. EOSINOPHILS 0.05 0.04 - 0.36 x10'3/uL ABS. BASOPHILS 0.04 0.01 - 0.08 x10'3/uL ABS. IMMATURE GRANULOCYTES 0.07 0.00 - 0.49 x10'3/uL LACTIC ACID W REFLEX (SEPSIS) Result Value Ref Range LACTIC ACID VENOUS 3.4 (H) 0.4 - 2.0 MMOL/L COMPREHENSIVE METABOLIC PANEL Result Value Ref Range GLUCOSE 144 (H) 70 - 99 MG/DL BUN 54 (H) 7 - 18 MG/DL CREATININE S/P/B 5.43 (HH) 0.55 - 1.02 MG/DL SODIUM S/P/B 134 (L) 136 - 145 MMOL/L POTASSIUM S/P/B 6.1 (H) 3.5 - 5.1 MMOL/L CHLORIDE S/P/B 99 97 - 115 MMOL/L CO2 25.2 21 - 32 MMOL/L CALCIUM S/P/B 10.3 (H) 8.5 - 10.1 MG/DL BILIRUBIN TOTAL S/P/B 0.7 0.2 - 1.2 MG/DL TOTAL PROTEIN S/P/B 6.9 6.4 - 8.2 G/DL ALBUMIN S/P/B 2.4 (L) 3.4 - 5.0 G/DL AST 130 (H) 15 - 37 U/L ALT 69 (H) 14 - 55 U/L ALKALINE PHOSPHATASE S/P/B 251 (H) 50 - 136 U/L ANION GAP 9.8 2 - 10 MMOL/L BUN CREATININE RATIO 9.9 6 - 26 A/G RATIO 0.5 (L) 1.0 - 2.0 RATIO GFR ESTIMATE 8 (L) >90 ML/MIN/1.73 M2 TROPONIN, QUANT Result Value Ref Range TROPONIN I HIGH SENSITIVITY 62 (H) <54 ng/L MAGNESIUM Result Value Ref Range MAGNESIUM 2.0 1.8 - 2.4 MG/DL CULTURE, BACTERIA, BLOOD Specimen: BLOOD Result Value Ref Range SPEC DESCRIPTION BLOOD SPECIAL REQUESTS NO SPECIAL REQUEST CULTURE RESULT NO GROWTH <24 HRS CULTURE, BACTERIA, BLOOD Specimen: BLOOD Result Value Ref Range SPEC DESCRIPTION BLOOD SPECIAL REQUESTS NO SPECIAL REQUEST CULTURE RESULT NO GROWTH <[address] HEAD WO CON Final Result by User, [email or web address] (07/22 1303) [address] [address] EXAM: CT HEAD WO CON DATE: 07/22/2025 12:27 PM INDICATION: Altered mental status. TECHNIQUE: Transverse images through the head were obtained without intravenous contrast. A radiation dose lowering technique was used for this procedure, which may include, but is not limited to, dose reduction technique, automated exposure control, the use of iterative reconstruction, ALARA (As Low As Reasonably Achievable) techniques, and Image Gently techniques. COMPARISON: CT head 01/07/2024 FINDINGS: Motion degraded examination despite repeated imaging, limiting the sensitivity of this exam. There is no evidence of acute intracranial hemorrhage. No evidence of abnormal intra or extra axial fluid collections. The ventricles in extra-axial spaces are mildly prominent compatible with global volume loss and similar to prior. No evidence of mass, mass effect, or midline shift. Diffuse low-density within the white matter again consistent with chronic microangiopathy, similar to prior. No definite CT findings of acute territorial infarction, within limitations of motion. No calvarial fracture is seen. Diffuse permeative appearance of the calvarium. Diffuse opacification of the left maxillary sinus. Bilateral mastoid air cell effusion. The globes and orbits are symmetric and grossly unremarkable. IMPRESSION: 1. Motion degraded examination despite repeated imaging, limiting the sensitivity of this exam. 2. No definite CT findings of acute territorial infarction, within limitations of motion. 3. Senescent changes of global volume loss and chronic microangiopathy. 4. Diffuse permeative appearance of the calvarium. This is nonspecific but given the history of ESRD with hemodialysis this likely is secondary to renal osteodystrophy. 5. Diffuse opacification of the left maxillary sinus. Bilateral mastoid air cell effusion. Ordered By: HEATHER GUEVARA Interpreted By: Irvin Hernandez MD, 07/22/2025 12:52 PM XR CHEST PORTABLE Final Result by User, [email or web address] (07/22 1221) [address] [address] IMAGING STUDIES: XR CHEST PORTABLE DATE: 07/22/2025 11:40 AM HISTORY: new o2 requirement 72-year-old female. Altered mental status during dialysis. Reported temperature of 100.3 prior to dialysis treatment 1 (did not receive dialysis today). Patient's daughter reports the patient was released from [facility] on 07/[facility]2025 after treatment for urinary tract infection. COMPARISON: Chest portable 01/11/2024 and 01/07/2024. DISCUSSION: Portable AP upright view of the chest. Rightward rotated. 2.8 x 2.6 cm partially calcified lesion projecting in the right upper chest and right lower neck/supraclavicular region which is not evident on the prior studies. Differential diagnosis would primarily include calcified enlarged lymph node or potential progression of vascular calcification. Right chest tunneled dialysis catheter with tip in the inferior right atrium is new since 01/11/2024. Stable cardiomegaly. No acute pulmonary vascular congestion. Aortic atherosclerotic calcifications. Low lung volumes but similar to prior studies. Chronic bilateral lung parenchymal scarring and pleural scarring. No appreciable significant pulmonary infiltrate or consolidation. No apparent pleural effusion or pneumothorax. Degenerative changes spine and shoulders. IMPRESSION: 1. Cardiomegaly. No acute pulmonary vascular congestion. Tunneled right chest dialysis catheter is new since 01/11/2024. 2. No apparent new pulmonary infiltrate or consolidation. 3. Partially calcified 2.8 cm lesion projecting in the right upper chest to right lower neck is not evident on 2023 radiographs. Could be further evaluated on nonemergent elective CT if clinically indicated. Ordered By: HEATHER GUEVARA Interpreted By: Aron Aguilar, 07/22/2025 12:08 PM ED Course / Medical Decision Making Medical Decision Making Problems Addressed: Atrial fibrillation with rapid ventricular response ([facility]CC): acute illness or injury ESRD (end stage renal disease) on dialysis ([facility]): chronic illness or injury Hyperkalemia: acute illness or injury that poses a threat to life or bodily functions Lactic acidosis: acute illness or injury Amount and/or Complexity of Data Reviewed Independent Historian: caregiver Details: Daughter. See HPI. External Data Reviewed: notes. Details: 07/16/2025 operative note reviewed with Dr. Andrews. Patient had angioplasty of her left AV graft. Labs: ordered. Decision-making details documented in ED Course. Radiology: ordered. Decision-making details documented in ED Course. ECG/medicine tests: ordered and independent interpretation performed. Decision- making details documented in ED Course. Risk Decision regarding hospitalization. ED Course as of 07/22/25 1331 Mon Jul 22, 2025 1147 EKG shows atrial fibrillation with rapid ventricular response. Rate 137. [BH] 1308 Chest x-ray shows cardiomegaly but no pulmonary vascular congestion. [BH] 1308 CT head shows no acute intracranial abnormality. [BH] 1308 Patient is anemic with hemoglobin 9.5. No leukocytosis. Chemistry shows elevated creatinine of5.43. Potassium elevated at 6.1. AST elevated at 130. ALT elevated at 69. Troponin elevated at 62. Lactate elevated at 3.4. Patient was given a small fluid bolus. [BH] 1312 [address] reached out to Dr. Alejandre for consultation as patient will need dialysis. [BH] 1314 Dr. Alejandre will arrange for dialysis later today. He would like her to get a dose of Lokelma now. [BH] [address] Lee who accepts admission to telemetry [] ED Course User Index [] Heather Guevara MD Rhythm strip ordered and interpreted: Atrial fibrillation, Rate 137, No ectopy Medications sodium zirconium cyclosilicate (LOKELMA) packet 5 g (has no administration in time range) sodium chloride 0.9% bolus infusion 500 mL (500 mLs Intravenous New Bag 07/22/25 1156) Clinical Impression ESRD (end stage renal disease) on dialysis ([facility]) (Primary) Hyperkalemia Atrial fibrillation with rapid ventricular response ([facility]) Lactic acidosis Current Discharge Medication List Disposition: Admit Follow-Up: No follow-up provider specified. 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[facility]) CHF (congestive heart failure) ([facility]) CKD (chronic kidney disease), stage IV ([facility]) on dialysis Depression Diabetes ([facility]) Dysphagia Encephalopathy ESBL (extended spectrum beta-lactamase) producing bacteria infection Hearing loss Heart attack ([facility]) HLD (hyperlipidemia) Hypertension, essential Hypertensive urgency Insomnia Kidney stone MRSA (methicillin resistant Staphylococcus aureus) Nonrheumatic aortic (valve) insufficiency Osteoporosis PONV (postoperative nausea and vomiting) Pulmonary hypertension ([facility]) Seizure ([facility]) 06/06/2021 as per daugther Stable burst fracture of unspecified lumbar vertebra, subsequent encounter for fracture with delayed healing Stroke ([facility]) Unspecified dementia, unspecified severity, without behavioral disturbance, psychotic disturbance, mood disturbance, and anxiety ([facility]) Urinary retention UTI (urinary tract infection) Vitamin D deficiency [2] Past Surgical History: Procedure Laterality Date BREAST LUMPECTOMY Right CATARACT EXTRACTION CHOLECYSTECTOMY HC URETERAL STENT - OR SUSPENSION BLADDER [3] Family History Problem Relation Name Age of Onset Ovarian Cancer Mother Diabetes Father Hypertension Sister Stroke Sister Other (brain aneurysm) Sister Stroke Brother [4] Social History Tobacco Use Smoking status: Never Smokeless tobacco: Never Substance Use Topics Alcohol use: No Drug use: No Heather Guevara MD 07/22/25 1331 * Luann Paulino RN - 07/22/2025 11:19 AM CDT Bed: 06 Expected date: Expected time: Means of arrival: Comments: Steven documented in this encounter Plan of Treatment Upcoming Encounters Date Type Department Care Team (Late st Contact Info) Description 10/01/2025 2:30 PM AIRCRAFT MAINTENANCE TECHNICIAN Office Visit [facility] [address] [place], [place] [id number] Cristina Palacios RESEARCH ASSISTANT MEMBER [facility] [address] [place], [place] [id number] documented as of this encounter Goals Goal Patient Goal Type Associated Problems Recent Progress Patient-Stated? Author Family - family caregiver with be involved in care transitions and discharge planning General No Camryn Monet, LIFE SCIENCES TEACHERtread booker - family caregiver with be involved in care transitions and discharge planning General No Pau Jean, acid changer - family caregiver with be involved in care transitions and discharge planning Lifestyle No Lulu Perera, RN documented as of this encounter Procedures Procedure Name Priority Date/Time Associated Diagnosis Comments POCT GLUCOSE - DOCKED DEVICE Routine 07/28/2025 11:06 AM CDT POCT GLUCOSE - DOCKED DEVICE Routine 07/28/2025 6:01 AM CDT PROCALCITONIN (PCT) Routine 07/28/2025 4 :33 AM CDT COMPREHENSIVE METABOLIC PANEL Routine 07/28/2025 4:33 AM CDT CBC W/DIFF AUTOMATED Routine 07/28/2025 4:33 AM CDT POCT GLUCOSE - DOCKED DEVICE Routine 07/27/2025 8:30 PM CDT POCT GLUCOSE - DOCKED DEVICE Routine 07/27/2025 6:49 PM CDT POCT GLUCOSE - DOCKED DEVICE Routine 07/27/2025 12:38 PM CDT POCT GLUCOSE - DOCKED DEVICE Routine 07/27/2025 12:03 PM CDT PROCALCITONIN (PCT) Routine 07/27/2025 6 :36 AM CDT COMPREHENSIVE METABOLIC PANEL Routine 07/27/2025 6:36 AM CDT CBC W/DIFF AUTOMATED Routine 07/27/2025 6:36 AM CDT POCT GLUCOSE - DOCKED DEVICE Routine 07/27/2025 6:12 AM CDT POCT GLUCOSE - DOCKED DEVICE Routine 07/26/2025 8:58 PM CDT POCT GLUCOSE - DOCKED DEVICE Routine 07/26/2025 3:57 PM CDT AMMONIA Routine 07/26/2025 2:[address] HEAD WO CON STAT 07/26/2025 1:31 PM CDT POCT GLUCOSE - DOCKED DEVICE Routine 07/26/2025 1:13 PM CDT POCT GLUCOSE - DOCKED DEVICE Routine 07/26/2025 6:08 AM CDT PROCALCITONIN (PCT) Routine 07/26/2025 5 :49 AM CDT IRON SAT PANEL (IRON,IBC,%SAT) Routine 07/26/2025 5:49 AM CDT VITAMIN B-12 Routine 07/26/2025 5:49 AM CDT COMPREHENSIVE METABOLIC PANEL Routine 07/26/2025 5:49 AM CDT FOLIC ACID SERUM Routine 07/26/2025 5:49 AM CDT CBC W/DIFF AUTOMATED Routine 07/26/2025 5:49 AM CDT VANCOMYCIN Routine 07/26/2025 5:49 AM CDT FERRITIN Routine 07/26/2025 5:49 AM CDT POCT GLUCOSE - DOCKED DEVICE Routine 07/25/2025 8:18 PM CDT POCT GLUCOSE - DOCKED DEVICE Routine 07/25/2025 3:36 PM CDT POCT GLUCOSE - DOCKED DEVICE Routine 07/25/2025 2:13 PM CDT POCT GLUCOSE - DOCKED DEVICE Routine 07/25/2025 11:24 AM CDT PROCALCITONIN (PCT) Routine 07/25/2025 6 :01 AM CDT COMPREHENSIVE METABOLIC PANEL Routine 07/25/2025 6:01 AM CDT CBC W/DIFF AUTOMATED Routine 07/25/2025 6:01 AM CDT POCT GLUCOSE - DOCKED DEVICE Routine 07/25/2025 5:52 AM CDT POCT GLUCOSE - DOCKED DEVICE Routine 07/24/2025 8:42 PM CDT POCT GLUCOSE - DOCKED DEVICE Routine 07/24/2025 4:37 PM CDT USV ART REST W BURAK LOW EXT Today 07/24/2025 3:50 PM CDT POCT GLUCOSE - DOCKED DEVICE Routine 07/24/2025 12:44 PM CDT POCT GLUCOSE - DOCKED DEVICE Routine 07/24/2025 6:18 AM CDT PROCALCITONIN (PCT) Routine 07/24/2025 5 :53 AM CDT COMPREHENSIVE METABOLIC PANEL Routine 07/24/2025 5:53 AM CDT CBC W/DIFF AUTOMATED Routine 07/24/2025 5:53 AM CDT PHOSPHORUS, INORGANIC PHOSPHATE Routine 07/24/2025 5:53 AM CDT VANCOMYCIN Routine 07/24/2025 5:53 AM CDT POCT GLUCOSE - DOCKED DEVICE Routine 07/23/2025 8:23 PM CDT XR FOOT RT 2V Today 07/23/2025 5:48 PM CDT POCT GLUCOSE - DOCKED DEVICE Routine 07/23/2025 3:54 PM CDT USE ECHOCARDIOGRAM W CON Today 07/23/2025 2:34 PM CDT PROCALCITONIN (PCT) Routine 07/23/2025 5 :42 AM CDT HEMOGLOBIN, GLYCOSYLATED Routine 07/23/2025 5:42 AM CDT COMPREHENSIVE METABOLIC PANEL Routine 07/23/2025 5:42 AM CDT CBC W/DIFF AUTOMATED Routine 07/23/2025 5:42 AM CDT THYROID STIM HORMONE TSH Routine 07/23/2025 5:42 AM CDT MAGNESIUM Routine 07/23/2025 5:42 AM CDT MRSA SCREENING STAT 07/22/2025 11:15 PM CDT LEGIONELLA AG URINE STAT 07/22/2025 5 :13 PM CDT HC URINALYSIS AUTO W/O MICRO STAT 07/22/2025 5:13 PM CDT URINE BACTERIA CULTURE STAT 5:13 PM CDT LACTIC ACID W REFLEX (SEPSIS) TIMED 07/22/2025 4:33 PM CDT USV CLINT DUPLEX LOW EXT JONATAN STAT 07/22/2025 3:[address] CHEST W CON STAT 07/22/2025 3:22 PM CDT HEPATITIS B POST-VACCINE ANTIBODY STAT 07/22/2025 2:37 PM CDT HC MYCOPLASMA AB-90 STAT 07/22/2025 2 :37 PM CDT HISTOPLASMA ANTIBODY STAT 07/22/2025 2:37 PM CDT HEPATITIS B SURFACE AG, EIA STAT 07/22/2025 2:37 PM CDT LACTIC ACID W REFLEX (SEPSIS) TIMED 07/22/2025 1:38 PM CDT TROPONIN, QUANT STAT 07/22/2025 1:[address] HEAD WO CON STAT 07/22/2025 12:27 PM CDT XR CHEST PORTABLE STAT 07/22/2025 12: 02 PM CDT ECG 12-LEAD STAT 07/22/2025 11:45 AM CDT LACTIC ACID W REFLEX (SEPSIS) STAT 07/22/2025 11:37 AM CDT COMPREHENSIVE METABOLIC PANEL STAT 07/22/2025 11:27 AM CDT CULTURE, BACTERIA, BLOOD STAT 07/22/2025 11:27 AM CDT CULTURE, BACTERIA, BLOOD STAT 07/22/2025 11:27 AM CDT CBC W/DIFF AUTOMATED STAT 07/22/2025 11:27 AM CDT TROPONIN, QUANT Routine 07/22/2025 11:27 AM CDT MAGNESIUM Routine 07/22/2025 11:27 AM CDT documented in this encounter Results * (ABNORMAL) POCT glucose (07/28/2025 11:06 AM CDT) GLUCOSE POC 218(H) 70 - 99 mg/dL 07/28/2025 11:18 AM CDT [facility] 07/28/2025 11:0 6 AM CDT us Maryse Kaplan APRN POCT ORDERABLES - DEVICE Final Result [facility] [address] [place] [address], [place] [phone] * (ABNORMAL) POCT glucose (07/28/2025 6:01 AM CDT) GLUCOSE POC 168(H) 70 - 99 mg/dL 07/28/2025 6:06 AM CDT [facility] 07/28/2025 6:01 AM CDT us Maryse Kaplan WELLNESS EDUCATOR POCT ORDERABLES - DEVICE Final Result [facility] [address] [place] [address], * (ABNORMAL) COMPREHENSIVE METABOLIC PANEL (07/28/2025 4:33 AM CDT) GLUCOSE 165(H) 70 - 99 MG/DL 07/28/2025 5:15 AM CDT [facility] BUN 40(H) 7 - 18 MG/DL 07/28/2025 5:15 AM CDT [facility] CREATININE S/P/B 4.19(H) 0.55 - 1.02 MG/DL 07/28/2025 5:15 AM CDT [facility] SODIUM S/P/B 136 136 - 145 MMOL/L 07/28/2025 5:15 AM CDT [facility] POTASSIUM S/P/B 4.6 3.5 - 5.1 MMOL/L 07/28/2025 5:15 AM CDT [facility] CHLORIDE S/P/B 106 97 - 115 MMOL/L 07/28/2025 5:15 AM CDT [facility] CO2 21.5 21 - 32 MMOL/L 07/28/2025 5:15 AM CDT [facility] CALCIUM S/P/B 10.0 8.5 - 10.1 MG/DL 07/28/2025 5:15 AM CDT [facility] BILIRUBIN TOTAL S/P/B 0.6 0.2 - 1.2 MG/DL 07/28/2025 5:15 AM CDT [facility] Comment: THIS ASSAY IS NOT RECOMMENDED FOR PATIENTS UNDERGOING TREATMENT WITH ELTROMBOPAG DUE TO THE POTENTIAL FOR FALSELY ELEVATED RESULTS. TOTAL PROTEIN S/P/B 6.9 6.4 - 8.2 G/DL 07/28/2025 5:15 AM CDT [facility] ALBUMIN S/P/B 2.4(L) 3.4 - 5.0 G/DL 07/28/2025 5:15 AM CDT [facility] AST 33 15 - 37 U/L 07/28/2025 5:15 AM CDT [facility] ALT 76(H) 14 - 55 U/L 07/28/2025 5:15 AM CDT [facility] ALKALINE PHOSPHATASE S/P/B 205(H) 50 - 136 U/L 07/28/2025 5:15 AM CDT [facility] ANION GAP 8.5 2 - 10 MMOL/L 07/28/2025 5:15 AM CDT [facility] BUN CREATININE RATIO 9.5 6 - 26 07/28/2025 5:15 AM T [facility] A/G RATIO 0.5(L) 1.0 - 2.0 RATIO 07/28/2025 5:15 AM T [facility] GFR ESTIMATE 10(L) >90 ML/MIN/1.7 3 M2 07/28/2025 5:15 AM CDT [facility] Comment: NOTE: eGFR is not calculated for patients <18 years of age or gender unknown. This is an estimated GFR calculation using the new CKD EPI creatinine equation without race and so does not require a correction factor for race. This estimated GFR should not be used for calculating drug doses. 07/28/2025 4:33 AM CDT Ritika Morton NP LABORATORY Final Result [facility] [address] [place] [address], [place] [phone] * (ABNORMAL) CBC W/DIFF AUTOMATED (07/28/2025 4:33 AM CDT) [facility] WBC 6.25 4.5 - 11.0 x10'3/uL 07/28/2025 4:54 AM CDT [facility] RBC 3.37(L) 4.20 - 5.40 x10'6/uL 07/28/2025 4:54 AM CDT [facility] HGB 10.0(L) 12.0 - 16.0 G/DL 07/28/2025 4:54 AM CDT [facility] HCT 34.8(L) 38.0 - 48.0 % 07/28/2025 4:54 AM CDT [facility] MCV 103.3(H) 81.0 - 99.0 FL 07/28/2025 4:54 AM CDT [facility] MCH 29.7 27.0 - 31.0 PG 07/28/2025 4:54 AM CDT [facility] MCHC 28.7(L) 32.0 - 36.0 G/DL 07/28/2025 4:54 AM CDT [facility] RDW 17.0(H) 11.5 - 14.5 % 07/28/2025 4:54 AM CDT [facility] PLT 211 130 - 400 x10'3/uL 07/28/2025 4:54 AM CDT [facility] MPV 10.5 9.3 - 12.2 FL 07/28/2025 4:54 AM CDT [facility] DIFFERENTIAL TYPE AUTOMATED DIFFERENTIAL 07/28/2025 5:39 AM CDT [facility] NEUTROPHILS % 74.3 % 07/28/2025 5:39 AM CDT [facility] LYMPHOCYTES % 11.8 % 07/28/2025 5:39 AM CDT [facility] MONOCYTES % 9.8 % 07/28/2025 5:39 AM CDT [facility] EOSINOPHILS 2.9 % 07/28/2025 5:39 AM CDT [facility] BASOPHILS 0.6 % 07/28/2025 5:39 AM CDT [facility] IMMATURE GRANS % 0.6 % 07/28/20 5:39 AM CDT [facility] ABS. NEUTROPHILS 4.64 1.80 - 7.70 x10'3/uL 07/28/2025 5:39 AM CDT [facility] ABS. LYMPHOCYTES 0.74(L) 1.00 - 4.80 x10'3/uL 07/28/2025 5:39 AM CDT [facility] ABS. MONOCYTES 0.61 0.24 - 0.86 x10'3/uL 07/28/2025 5:39 AM CDT [facility] ABS. EOSINOPHILS 0.18 0.04 - 0.36 x10'3/uL 07/28/2025 5:39 AM CDT [facility] ABS. BASOPHILS 0.04 0.01 - 0.08 x10'3/uL 07/28/2025 5:39 AM CDT [facility] ABS. IMMATURE GRANULOCYTES 0.04 0.00 - 0.49 x10'3/uL 07/28/2025 5:39 AM CDT [facility] RBC MORPHOLOGY SLIDE REVIEWED 2024 5:39 AM CDT [facility] HYPOCHROMASIA 1+ 07/28/2025 5:39 AM CDT [facility] PLT EST. ADEQUATE 07/28/2025 5:39 AM CDT [facility] 07/28/2025 4:33 AM CDT us Ritika L Morton ESCROW MANAGER LABORATORY Final Result Performing Organization Address [facility] Co de Phone Number [facility] [address] [place] [phone], * (ABNORMAL) PROCALCITONIN (PCT) (07/28/2025 4:33 AM CDT) PROCALCITONIN 0.78(H) 0.00 - 0.49 NG/ML 07/28/2025 5:23 AM CDT [facility] 07/28/2025 4:33 AM CDT Ana Bennett PA LABORATORY Final Result Performing Organization Address [facility] Co de Phone Number [facility] [address] [place] [phone], * (ABNORMAL) POCT glucose (07/27/2025 8:30 PM CDT) GLUCOSE POC 200(H) 70 - 99 mg/dL 07/27/2025 9:07 PM CDT [facility] 07/27/2025 8:30 PM CDT Maryse Kaplan APRN POCT ORDERABLES - DEVICE Final Result Performing Organization Address City/[facility]/ZIP Co de Phone Number [facility] [address] [place] [address], [place] [phone] * (ABNORMAL) POCT glucose (07/27/2025 6:49 PM CDT) GLUCOSE POC 132(H) 70 - 99 mg/dL 07/27/2025 6:51 PM CDT [facility] 07/27/2025 6:49 PM CDT Maryse Kaplan WELLNESS EDUCATOR POCT ORDERABLES - DEVICE Final Result Performing Organization Address City/[facility]/ZIP Co de Phone Number [facility] [address] [place] [address], [place] [phone] * (ABNORMAL) POCT glucose (07/27/2025 12:38 PM CDT) GLUCOSE POC 172(H) 70 - 99 mg/dL 07/27/2025 12:40 PM CDT [facility] 07/27/2025 12:3 8 PM CDT Maryse Kaplan WELLNESS EDUCATOR POCT ORDERABLES - DEVICE Final Result Performing Organization Address [facility] Co de Phone Number [facility] [address] [place] [address], [place] [phone] * (ABNORMAL) POCT glucose (07/27/2025 12:03 PM CDT) GLUCOSE POC 167(H) 70 - 99 mg/dL 07/27/2025 12:20 PM CDT [facility] 07/27/2025 12:0 3 PM CDT Maryse Kaplan WELLNESS EDUCATOR POCT ORDERABLES - DEVICE Final Result Performing Organization Address City/[facility] Co de Phone Number [facility] [address] [place] [address], [place] [phone] * (ABNORMAL) COMPREHENSIVE METABOLIC PANEL (07/27/2025 6:36 AM CDT) GLUCOSE 161(H) 70 - 99 MG/DL 07/27/2025 7:34 AM CDT [facility] BUN 27(H) 7 - 18 MG/DL 07/27/2025 7:34 AM T [facility] CREATININE S/P/B 3.27(H) 0.55 - 1.02 MG/DL 07/27/2025 7:34 AM CDT [facility] SODIUM S/P/B 137 136 - 145 MMOL/L 07/27/2025 7:34 AM CDT [facility] POTASSIUM S/P/B 4.2 3.5 - 5.1 MMOL/L 07/27/2025 7:34 AM T [facility] CHLORIDE S/P/B 103 97 - 115 MMOL/L 07/27/2025 7:34 AM T [facility] CO2 28.3 21 - 32 MMOL/L 07/27/2025 7:34 AM T [facility] CALCIUM S/P/B 10.3(H) 8.5 - 10.1 MG/DL 07/27/2025 7:34 AM T [facility] BILIRUBIN TOTAL S/P/B 0.9 0.2 - 1.2 MG/DL 07/27/2025 7:34 AM T [facility] Comment: THIS ASSAY IS NOT RECOMMENDED FOR PATIENTS UNDERGOING TREATMENT WITH ELTROMBOPAG DUE TO THE POTENTIAL FOR FALSELY ELEVATED RESULTS. TOTAL PROTEIN S/P/B 6.6 6.4 - 8.2 G/DL 07/27/2025 7:34 AM T [facility] ALBUMIN S/P/B 2.3(L) 3.4 - 5.0 G/DL 07/27/2025 7:34 AM T [facility] AST 40(H) 15 - 37 U/L 07/27/2025 7:34 AM T [facility] ALT 94(H) 14 - 55 U/L 07/27/2025 7:34 AM CDT [facility] ALKALINE PHOSPHATASE S/P/B 204(H) 50 - 136 U/L 07/27/2025 7:34 AM CDT [facility] ANION GAP 5.7 2 - 10 MMOL/L 07/27/2025 7:34 AM CDT [facility] BUN CREATININE RATIO 8.3 6 - 26 07/27/2025 7:34 AM CDT [facility] A/G RATIO 0.5(L) 1.0 - 2.0 RATIO 07/27/2025 7:34 AM CDT [facility] GFR ESTIMATE 14(L) >90 ML/MIN/1.7 3 M2 07/27/2025 7:34 AM CDT [facility] Comment: NOTE: eGFR is not calculated for patients <18 years of age or gender unknown. This is an estimated GFR calculation using the new CKD EPI creatinine equation without race and so does not require a correction factor for race. This estimated GFR should not be used for calculating drug doses. 07/27/2025 6:36 AM CDT Ritika Morton NP LABORATORY Final Result [facility] [address] [place] [address], [place] [phone] * (ABNORMAL) CBC W/DIFF AUTOMATED (07/27/2025 6:36 AM CDT) WBC 5.90 4.5 - 11.0 x10'3/uL 07/27/2025 7:03 AM CDT [facility] RBC 3.07(L) 4.20 - 5.40 x10'6/uL 07/27/2025 7:03 AM CDT [facility] HGB 9.0(L) 12.0 - 16.0 G/DL 07/27/2025 7:03 AM CDT [facility] HCT 30.9(L) 38.0 - 48.0 % 07/27/2025 7:03 AM CDT [facility] MCV 100.7(H) 81.0 - 99.0 FL 07/27/2025 7:03 AM CDT [facility] MCH 29.3 27.0 - 31.0 PG 07/27/2025 7:03 AM CDT [facility] MCHC 29.1(L) 32.0 - 36.0 G/DL 07/27/2025 7:03 AM CDT [facility] RDW 16.8(H) 11.5 - 14.5 % 07/27/2025 7:03 AM CDT [facility] PLT 255 130 - 400 x10'3/uL 07/27/2025 7:03 AM CDT [facility] MPV 9.8 9.3 - 12.2 FL 07/27/2025 7:03 AM CDT [facility] DIFFERENTIAL TYPE AUTOMATED DIFFERENTIAL 07/27/2025 7:03 AM CDT [facility] NEUTROPHILS % 76.1 % 07/27/2025 7:03 AM CDT [facility] LYMPHOCYTES % 11.4 % 07/27/2025 7:03 AM CDT [facility] MONOCYTES % 9.8 % 07/27/2025 7:03 AM CDT [facility] EOSINOPHILS 1.7 % 07/27/2025 7:03 AM CDT [facility] BASOPHILS 0.5 % 07/27/2025 7:03 AM CDT [facility] IMMATURE GRANS % 0.5 % 07/27/20 7:03 AM CDT [facility] ABS. NEUTROPHILS 4.49 1.80 - 7.70 x10'3/uL 07/27/2025 7:03 AM CDT [facility] ABS. LYMPHOCYTES 0.67(L) 1.00 - 4.80 x10'3/uL 07/27/2025 7:03 AM CDT [facility] ABS. MONOCYTES 0.58 0.24 - 0.86 x10'3/uL 07/27/2025 7:03 AM CDT [facility] ABS. EOSINOPHILS 0.10 0.04 - 0.36 x10'3/uL 07/27/2025 7:03 AM CDT [facility] ABS. BASOPHILS 0.03 0.01 - 0.08 x10'3/uL 07/27/2025 7:03 AM CDT [facility] ABS. IMMATURE GRANULOCYTES 0.03 0.00 - 0.49 x10'3/uL 07/27/2025 7:03 AM CDT [facility] 07/27/2025 6:36 AM CDT Ritika Morton NP LABORATORY Final Result Performing Organization Address City/[facility] Co de Phone Number [facility] [address] [place] [address], [place] [phone] * (ABNORMAL) PROCALCITONIN (PCT) (07/27/2025 6:36 AM CDT) PROCALCITONIN 1.19(H) 0.00 - 0.49 NG/ML 07/27/2025 9:24 AM CDT [facility] 07/27/2025 6:36 AM CDT Ana GARCIA LABORATORY Final Result Performing Organization Address City/State/[facility] Co de Phone Number [facility] [address] [place] [phone], * (ABNORMAL) POCT glucose (07/27/2025 6:12 AM CDT) GLUCOSE POC 174(H) 70 - 99 mg/dL 07/27/2025 6:41 AM CDT [facility] 07/27/2025 6:12 AM CDT Maryse Kaplan APRN POCT ORDERABLES - DEVICE Final Result Performing Organization Address [facility] Co de Phone Number [facility] [address] [place] [phone], * (ABNORMAL) POCT glucose (07/26/2025 8:58 PM CDT) GLUCOSE POC 221(H) 70 - 99 mg/dL 07/26/2025 8:59 PM CDT [facility] 07/26/2025 8:58 PM CDT us Ritika Morton NP POCT ORDERABLES - DEVICE Karen l Result Performing Organization Address City/[facility]/ZIP Co de Phone Number [facility] [address] [place] [address], [place] [phone] * (ABNORMAL) POCT glucose (07/26/2025 3:57 PM CDT) GLUCOSE POC 133(H) 70 - 99 mg/dL 07/26/2025 3:59 PM CDT [facility] 07/26/2025 3:57 PM CDT Ritika Morton ESCROW MANAGER POCT ORDERABLES - DEVICE Karen l Result [facility] [address] [place] [address], [place] [phone] * AMMONIA (07/26/2025 2:21 PM CDT) AMMONIA 27 11 - 32 UMOL/L 07/26/2025 4:07 PM CDT [facility] 07/26/2025 2:21 PM CDT Ritika Morton ESCROW MANAGER LABORATORY Final Result Performing Organization Address City/[facility]/ZIP Co de Phone Number [address] [address], [place] [phone] * CT HEAD WO CON (07/26/2025 1:31 PM CDT) Anatomical Region Laterality Modality Head Computed Tomogra phy 07/26/2025 1:45 PM CDT Impressions 07/26/2025 1:46 PM CDT IMPRESSION: Stable head CT. No acute findings Ordered By: RITIKA MORTON Interpreted By: Harry Milton MD, 07/26/2025 1:45 PM Narrative 07/26/2025 1:46 PM CDT [facility] [address] [place], [place] [address] CT HEAD WITHOUT CONTRAST Exam date: 07/26/2025 1:45 PM Clinical history: Altered mental status Technique: 3 mm collimated axial images of the head were obtained without contrast. A dose lowering technique was used for this procedure, which may include, but is not limited to, dose reduction technique, automated exposure control, the use of iterative reconstruction, and ALARA (As Low As Reasonably Achievable) / Image Gently techniques. Comparison: July 22, 2025 FINDINGS: Images of the head demonstrate no evidence of acute or chronic intracranial hemorrhage. No masses or mass effects are seen. The ventricles and sulci are symmetric. There is no evidence of midline shift. There is normal linda-white differentiation throughout. No extra-axial fluid collections are evident. Bone windows reveal the paranasal sinuses and mastoid air cells to appear clear. There is no evidence of fracture. Procedure Note Harry Milton MD - 07/26/[address] [address] [address] HEAD WITHOUT CONTRAST Exam date: 07/26/2025 1:45 PM Clinical history: Altered mental status Technique: 3 mm collimated axial images of the head were obtained withoutcontrast. A dose lowering technique was used for this procedure, which mayinclude, but is not limited to, dose reduction technique, automatedexposure control, the use of iterative reconstruction, and ALARA (As LowAs Reasonably Achievable) / Image Gently techniques. Comparison: July 22, 2025 FINDINGS: Images of the head demonstrate no evidence of acute or chronicintracranial hemorrhage. No masses or mass effects are seen. Theventricles and sulci are symmetric. There is no evidence of midline shift.There is normal linda-white differentiation throughout. No extra-axialfluid collections are evident. Bone windows reveal the paranasal sinuses and mastoid air cells to appearclear. There is no evidence of fracture. IMPRESSION: Stable head CT. No acute findings Ordered By: RITIKA MORTON Interpreted By: Harry Milton MD, 07/26/2025 1:45 PM Ritika Morton ESCROW MANAGER CT Final Result * (ABNORMAL) POCT glucose (07/26/2025 1:13 PM CDT) GLUCOSE POC 125(H) 70 - 99 mg/dL 07/26/2025 1:24 PM CDT [facility] 07/26/2025 1:13 PM CDT Ritika Morton ESCROW MANAGER POCT ORDERABLES - DEVICE Karen l Result [facility] [address] [place] [address], [place] [phone] * (ABNORMAL) POCT glucose (07/26/2025 6:08 AM CDT) GLUCOSE POC 123(H) 70 - 99 mg/dL 07/26/2025 6:09 AM CDT [facility] 07/26/2025 6:08 AM CDT us Ritika Morton ESCROW MANAGER POCT ORDERABLES - DEVICE Karen l Result Performing Organization Address City/[facility]/ZIP Co de Phone Number [facility] [address] [place] [address], [place] [phone] * FOLIC ACID SERUM (07/26/2025 5:49 AM CDT) FOLATE 13.5 3.1 - 17.5 NG/ML 07/26/2025 2:51 PM CDT [facility] 07/26/2025 5:49 AM CDT us Ritika Morton ESCROW MANAGER LABORATORY Final Result [facility] [address] [place] [address], [place] [phone] * (ABNORMAL) VITAMIN B-12 (07/26/2025 5:49 AM CDT) VITAMIN B12 S/P/B 2,542(H) 254 - 1,320 PG/ML 07/26/2025 2:51 PM CDT [facility] 07/26/2025 5:49 AM CDT Ritika Morton NP LABORATORY Final Result [facility] [address] [place] [address], [place] [phone] * (ABNORMAL) COMPREHENSIVE METABOLIC PANEL (07/26/2025 5:49 AM CDT) GLUCOSE 137(H) 70 - 99 MG/DL 07/26/2025 7:23 AM CDT [facility] BUN 42(H) 7 - 18 MG/DL 07/26/2025 7:23 AM CDT [facility] CREATININE S/P/B 4.61(H) 0.55 - 1.02 MG/DL 07/26/2025 7:23 AM CDT [facility] SODIUM S/P/B 136 136 - 145 MMOL/L 07/26/2025 7:23 AM CDT [facility] POTASSIUM S/P/B 4.4 3.5 - 5.1 MMOL/L 07/26/2025 7:23 AM CDT [facility] CHLORIDE S/P/B 99 97 - 115 MMOL/L 07/26/2025 7:23 AM CDT [facility] CO2 24.5 21 - 32 MMOL/L 07/26/2025 7:23 AM CDT [facility] CALCIUM S/P/B 10.0 8.5 - 10.1 MG/DL 07/26/2025 7:23 AM CDT [facility] BILIRUBIN TOTAL S/P/B 0.6 0.2 - 1.2 MG/DL 07/26/2025 7:23 AM T [facility] Comment: THIS ASSAY IS NOT RECOMMENDED FOR PATIENTS UNDERGOING TREATMENT WITH ELTROMBOPAG DUE TO THE POTENTIAL FOR FALSELY ELEVATED RESULTS. TOTAL PROTEIN S/P/B 7.1 6.4 - 8.2 G/DL 07/26/2025 7:23 AM T [facility] ALBUMIN S/P/B 2.4(L) 3.4 - 5.0 G/DL 07/26/2025 7:23 AM T [facility] AST 85(H) 15 - 37 U/L 07/26/2025 7:23 AM [facility] ALT 133(H) 14 - 55 U/L 07/26/2025 7:23 AM [facility] ALKALINE PHOSPHATASE S/P/B 223(H) 50 - 136 U/L 07/26/2025 7:23 AM [facility] ANION GAP 12.5(H) 2 - 10 MMOL/L 07/26/2025 7:23 AM [facility] BUN CREATININE RATIO 9.1 6 - 26 07/26/2025 7:23 AM [facility] A/G RATIO 0.5(L) 1.0 - 2.0 RATIO 07/26/2025 7:23 AM [facility] GFR ESTIMATE 9(L) >90 ML/MIN/1.7 3 M2 07/26/2025 7:23 AM [facility] Comment: NOTE: eGFR is not calculated for patients <18 years of age or gender unknown. This is an estimated GFR calculation using the new CKD EPI creatinine equation without race and so does not require a correction factor for race. This estimated GFR should not be used for calculating drug doses. 07/26/2025 5:49 AM CDT us Ritika Morton NP LABORATORY Final Result [facility] [address] [place] [address], * (ABNORMAL) CBC W/DIFF AUTOMATED (07/26/2025 5:49 AM CDT) WBC 6.63 4.5 - 11.0 x10'3/uL 07/26/2025 6:24 AM CDT [facility] RBC 3.26(L) 4.20 - 5.40 x10'6/uL 07/26/2025 6:24 AM CDT [facility] HGB 9.6(L) 12.0 - 16.0 G/DL 07/26/2025 6:24 AM CDT [facility] HCT 32.3(L) 38.0 - 48.0 % 07/26/2025 6:24 AM CDT [facility] MCV 99.1(H) 81.0 - 99.0 FL 07/26/2025 6:24 AM CDT [facility] MCH 29.4 27.0 - 31.0 PG 07/26/2025 6:24 AM CDT [facility] MCHC 29.7(L) 32.0 - 36.0 G/DL 07/26/2025 6:24 AM CDT [facility] RDW 16.3(H) 11.5 - 14.5 % 07/26/2025 6:24 AM CDT [facility] PLT 252 130 - 400 x10'3/uL 07/26/2025 6:24 AM CDT [facility] MPV 10.2 9.3 - 12.2 FL 07/26/2025 6:24 AM CDT [facility] DIFFERENTIAL TYPE AUTOMATED DIFFERENTIAL 07/26/2025 6:24 AM CDT [facility] NEUTROPHILS % 74.8 % 07/26/2025 6:24 AM CDT [facility] LYMPHOCYTES % 12.7 % 07/26/2025 6:24 AM CDT [facility] MONOCYTES % 9.2 % 07/26/2025 6:24 AM CDT [facility] EOSINOPHILS 2.4 % 07/26/2025 6:24 AM CDT [facility] BASOPHILS 0.3 % 07/26/2025 6:24 AM CDT [facility] IMMATURE GRANS % 0.6 % 07/26/20 6:24 AM CDT [facility] ABS. NEUTROPHILS 4.96 1.80 - 7.70 x10'3/uL 07/26/2025 6:24 AM CDT [facility] ABS. LYMPHOCYTES 0.84(L) 1.00 - 4.80 x10'3/uL 07/26/2025 6:24 AM CDT [facility] ABS. MONOCYTES 0.61 0.24 - 0.86 x10'3/uL 07/26/2025 6:24 AM CDT [facility] ABS. EOSINOPHILS 0.16 0.04 - 0.36 x10'3/uL 07/26/2025 6:24 AM CDT [facility] ABS. BASOPHILS 0.02 0.01 - 0.08 x10'3/uL 07/26/2025 6:24 AM CDT [facility] ABS. IMMATURE GRANULOCYTES 0.04 0.00 - 0.49 x10'3/uL 07/26/2025 6:24 AM CDT [facility] 07/26/2025 5:49 AM CDT Ritika Morton [employer] LABORATORY Final Result Performing Organization Address City/[facility] Co de Phone Number [facility] [address] [place] [phone], * (ABNORMAL) PROCALCITONIN (PCT) (07/26/2025 5:49 AM CDT) PROCALCITONIN 0.69(H) 0.00 - 0.49 NG/ML 07/26/2025 8:05 AM CDT [facility] 07/26/2025 5:49 AM CDT Ana Bennett PA LABORATORY Final Result Performing Organization Address [facility] Co de Phone Number [facility] [address] [place] [phone], * (ABNORMAL) FERRITIN (07/26/2025 5:49 AM CDT) FERRITIN 1,475.2(H) 8.0 - 388.0 NG/ML 07/26/2025 7:14 AM CDT [facility] 07/26/2025 5:49 AM CDT Ritika Morton [employer] LABORATORY Final Result Performing Organization Address City/[facility]/ZIP Co de Phone Number [facility] [address] [place] [phone], * (ABNORMAL) IRON SAT PANEL (IRON,IBC,%SAT) (07/26/2025 5:49 AM CDT) IRON 48(L) 50.0 - 170.0 MCG/DL 07/26/2025 7:23 AM CDT [facility] IRON BINDING CAPACITY 301 250 - 450 MCG/DL 07/26/2025 7:23 AM CDT [facility] IRON SATURATION 16(L) 20 - 55 % 7:23 AM CDT [facility] 07/26/2025 5:49 AM CDT us Ritika Morton [employer] LABORATORY Final Result Performing Organization Address City/[facility]/ZIP Co de Phone Number [facility] [address] [place] [phone], [place] [phone] * Vancomycin Random Level (07/26/2025 5:49 AM CDT) VANCOMYCIN RANDOM 21.7 MCG/ML 07/26/2025 7:14 AM CDT [facility] Comment:NO THERAPEUTIC RANGE AVAILABLE LAST DOSE UNKNOWN LAST DOSE 07/26/2025 9:08 AM CDT [facility] 07/26/2025 5:49 AM CDT us Ritika Morton [employer] MA[employer] LABORATORY Final Result Performing Organization Address [facility] de Phone Number [facility] [address] [place] [phone], [place] [phone] * (ABNORMAL) POCT glucose (07/25/2025 8:18 PM CDT) GLUCOSE POC 230(H) 70 - 99 mg/dL 07/25/2025 9:03 PM CDT [facility] 07/25/2025 8:18 PM CDT us Ritika Morton [employer]OW MANAGER POCT ORDERABLES - DEVICE Karen l Result [facility] [address] [place] [address], [place] [phone] * (ABNORMAL) POCT glucose (07/25/2025 3:36 PM CDT) GLUCOSE POC 178(H) 70 - 99 mg/dL 07/25/2025 3:43 PM CDT [facility] 07/25/2025 3:36 PM CDT us Ritika Morton ES[employer]OW MANAGER POCT ORDERABLES - DEVICE Karen l Result Performing Organization Address [facility] Co de Phone Number [address] [address], [place] [phone] * (ABNORMAL) POCT glucose (07/25/2025 2:13 PM CDT) GLUCOSE POC 168(H) 70 - 99 mg/dL 07/25/2025 2:15 PM CDT [facility] 07/25/2025 2:13 PM CDT us Ritika Morton ESCROW MANAGER POCT ORDERABLES - DEVICE Karen l Result Performing Organization Address City/[facility]/ZIP Co de Phone Number [facility] [address] [place] [address], [place] [phone] * (ABNORMAL) POCT glucose (07/25/2025 11:24 AM CDT) GLUCOSE POC 184(H) 70 - 99 mg/dL 07/25/2025 12:26 PM CDT [facility] 07/25/2025 11:2 4 AM CDT us Ritika Moeller Sherly CACERES POCT ORDERABLES - DEVICE Karen moeller Result [facility] [address] [place] [address], * (ABNORMAL) COMPREHENSIVE METABOLIC PANEL (07/25/2025 6:01 AM CDT) [facility] GLUCOSE 125(H) 70 - 99 MG/DL 07/25/2025 8:03 AM CDT [facility] BUN 31(H) 7 - 18 MG/DL 07/25/2025 8:03 AM CDT [facility] CREATININE S/P/B 3.52(H) 0.55 - 1.02 MG/DL 07/25/2025 8:03 AM CDT [facility] SODIUM S/P/B 138 136 - 145 MMOL/L 07/25/2025 8:03 AM CDT [facility] POTASSIUM S/P/B 4.0 3.5 - 5.1 MMOL/L 07/25/2025 8:03 AM CDT [facility] CHLORIDE S/P/B 102 97 - 115 MMOL/L 07/25/2025 8:03 AM CDT [facility] CO2 27.9 21 - 32 MMOL/L 07/25/2025 8:03 AM CDT [facility] CALCIUM S/P/B 10.0 8.5 - 10.1 MG/DL 07/25/2025 8:03 AM CDT [facility] BILIRUBIN TOTAL S/P/B 0.6 0.2 - 1.2 MG/DL 07/25/2025 8:03 AM CDT [facility] Comment: THIS ASSAY IS NOT RECOMMENDED FOR PATIENTS UNDERGOING TREATMENT WITH ELTROMBOPAG DUE TO THE POTENTIAL FOR FALSELY ELEVATED RESULTS. TOTAL PROTEIN S/P/B 6.2(L) 6.4 - 8.2 G/DL 07/25/2025 8:03 AM T [facility] ALBUMIN S/P/B 2.2(L) 3.4 - 5.0 G/DL 07/25/2025 8:03 AM T [facility] AST 122(H) 15 - 37 U/L 07/25/2025 8:03 AM T [facility] ALT 136(H) 14 - 55 U/L 07/25/2025 8:03 AM T [facility] ALKALINE PHOSPHATASE S/P/B 203(H) 50 - 136 U/L 07/25/2025 8:03 AM T [facility] ANION GAP 8.1 2 - 10 MMOL/L 07/25/2025 8:03 AM [facility] BUN CREATININE RATIO 8.8 6 - 26 07/25/2025 8:03 AM [facility] A/G RATIO 0.6(L) 1.0 - 2.0 RATIO 07/25/2025 8:03 AM [facility] GFR ESTIMATE 13(L) >90 ML/MIN/1.7 3 M2 07/25/2025 8:03 AM [facility] Comment: NOTE: eGFR is not calculated for patients <18 years of age or gender unknown. This is an estimated GFR calculation using the new CKD EPI creatinine equation without race and so does not require a correction factor for race. This estimated GFR should not be used for calculating drug doses. 07/25/2025 6:01 AM CDT Ritika Morton NP LABORATORY Final Result [facility] [address] [place] [address], [place] [phone] * (ABNORMAL) CBC W/DIFF AUTOMATED (07/25/2025 6:01 AM CDT) [facility] WBC 6.04 4.5 - 11.0 x10'3/uL 07/25/2025 7:13 AM CDT [facility] RBC 2.88(L) 4.20 - 5.40 x10'6/uL 07/25/2025 7:13 AM CDT [facility] HGB 8.4(L) 12.0 - 16.0 G/DL 07/25/2025 7:13 AM CDT [facility] HCT 28.9(L) 38.0 - 48.0 % 07/25/2025 7:13 AM CDT [facility] MCV 100.3(H) 81.0 - 99.0 FL 07/25/2025 7:13 AM CDT [facility] MCH 29.2 27.0 - 31.0 PG 07/25/2025 7:13 AM CDT [facility] MCHC 29.1(L) 32.0 - 36.0 G/DL 07/25/2025 7:13 AM CDT [facility] RDW 16.2(H) 11.5 - 14.5 % 07/25/2025 7:13 AM CDT [facility] PLT 244 130 - 400 x10'3/uL 07/25/2025 7:13 AM CDT [facility] MPV 10.2 9.3 - 12.2 FL 07/25/2025 7:13 AM CDT [facility] DIFFERENTIAL TYPE AUTOMATED DIFFERENTIAL 07/25/2025 7:13 AM CDT [facility] NEUTROPHILS % 74.5 % 07/25/2025 7:13 AM CDT [facility] LYMPHOCYTES % 12.9 % 07/25/2025 7:13 AM CDT [facility] MONOCYTES % 9.3 % 07/25/2025 7:13 AM CDT [facility] EOSINOPHILS 2.3 % 07/25/2025 7:13 AM CDT [facility] BASOPHILS 0.3 % 07/25/2025 7:13 AM CDT [facility] IMMATURE GRANS % 0.7 % 07/25/20 7:13 AM CDT [facility] ABS. NEUTROPHILS 4.50 1.80 - 7.70 x10'3/uL 07/25/2025 7:13 AM CDT [facility] ABS. LYMPHOCYTES 0.78(L) 1.00 - 4.80 x10'3/uL 07/25/2025 7:13 AM CDT [facility] ABS. MONOCYTES 0.56 0.24 - 0.86 x10'3/uL 07/25/2025 7:13 AM CDT [facility] ABS. EOSINOPHILS 0.14 0.04 - 0.36 x10'3/uL 07/25/2025 7:13 AM CDT [facility] ABS. BASOPHILS 0.02 0.01 - 0.08 x10'3/uL 07/25/2025 7:13 AM CDT [facility] ABS. IMMATURE GRANULOCYTES 0.04 0.00 - 0.49 x10'3/uL 07/25/2025 7:13 AM CDT [facility] 07/25/2025 6:01 AM CDT us Ritika Morton NP LABORATORY Final Result [facility] [address] [place] [address], [place] [phone] * (ABNORMAL) PROCALCITONIN (PCT) (07/25/2025 6:01 AM CDT) PROCALCITONIN 0.95(H) 0.00 - 0.49 NG/ML 07/25/2025 8:22 AM CDT [facility] 07/25/2025 6:01 AM CDT Ana GARCIA LABORATORY Final Result Performing Organization Address [facility]/ZIP Co de Phone Number [facility] [address] [place] [address], * (ABNORMAL) POCT glucose (07/25/2025 5:52 AM CDT) GLUCOSE POC 132(H) 70 - 99 mg/dL 07/25/2025 6:01 AM CDT [facility] 07/25/2025 5:52 AM CDT Ritika Morton ESCROW MANAGER POCT ORDERABLES - DEVICE Karen l Result Performing Organization Address City/[facility] Co de Phone Number [facility] [address] [place] [address], [place] [phone] * (ABNORMAL) POCT glucose (07/24/2025 8:42 PM CDT) GLUCOSE POC 116(H) 70 - 99 mg/dL 07/24/2025 8:47 PM CDT [facility] 07/24/2025 8:42 PM CDT Ritika Morton ESCROW MANAGER POCT ORDERABLES - DEVICE Karen l Result [facility] [address] [place] [address], [place] [phone] * (ABNORMAL) POCT glucose (07/24/2025 4:37 PM CDT) GLUCOSE POC 195(H) 70 - 99 mg/dL 07/24/2025 4:40 PM CDT [facility] 07/24/2025 4:37 PM CDT us Ritika Morton ESCROW MANAGER POCT ORDERABLES - DEVICE Karen moeller Result [facility] [address] [place] [address], [place] [phone] * USV ART REST W BURAK LOW EXT (07/24/2025 3:50 PM CDT) Anatomical Region Laterality Modality Extremity Vascular Ultraso und 07/24/2025 3:07 PM CDT Narrative 07/26/2025 7:39 AM CDT [facility] - [facility] Pat.Name: ZANDER ADLER.ID: [id number] .Date: 07/24/2025 Exam Time: 3:07:00 PM Study Type:SHANON VS Arterial Doppler Legs JONATAN Height: 66 in Age: 9 1945,80Y Sex: F Sonogrphr: Best Eddy RDMS, RVT History / Clinical:BLE edema Procedures: Doppler waveforms, Digit PPG, Systolic Pressures w/BURAK Race: W ++++++++++++++++++++++++++++++++++++ SUMMARY: ++++++++++++++++++++++++++++++++++++ Andrés BURAK Criteria: >1.30 = falsely elevated, calcified vessels; 1.00-1.29 = no signif ischemia at rest ; .80-.99 = mild PAD, asymptomatic; .50-.79 = moderate PAD, claudication; <.50 = severe PAD, rest pain; <.30 = critical PAD, necrosis, poor healing (Digits: DBI >.60 Normal; <.60 Abnormal) (Positive Stress eval: BURAK decrease of >.20 or >20% pressure drop) Right leg: Common Femoral waveform is biphasic, low amplitude; Popliteal biphasic, low amplitude; Posterior Tibial biphasic, low amplitude with BURAK 0 ; DP/Anterior Tibial biphasic, low amplitude with BURAK 0 . Digit flow by PPG is not recorded with DBI . Left leg: Common Femoral waveform is biphasic, low amplitude; Popliteal biphasic, low amplitude; Posterior Tibial biphasic, low amplitude with BURAK 0 ; DP/Anterior Tibial biphasic, low amplitude with BURAK 0 . Digit flow by PPG is not recorded with DBI . Extremely limited non-diagnostic exam due to patients compliance and leg pain. CONCLUSION: 1. BURAK right leg were not obtained due to non-compressible vessels. The toe index was not obtained due to patient compliance. Dampened biphasic waveforms seen at each level. 2. BURAK left leg were not obtained due to non-compressible vessels. The toe index was not obtained due to patient compliance. Dampened biphasic waveforms seen at each level. 3. Extremely limited non-diagnostic exam due to patients compliance and leg pain. ++++++++++++++++++++++++++++++++++++ MEASUREMENTS: ++++++++++++++++++++++++++++++++++++ PRESSURES Right Brachial Brach P 136 mmHg Right Ankle DP AnkleDP P 0 mmHg Right Ankle PT AnklePT P 0 mmHg Right BURAK PT BURAK PT 0 Right BURAK DP BURAK DP 0 Left Ankle DP AnkleDP P 0 mmHg Left Ankle PT AnklePT P 0 mmHg Left BURAK PT BURAK PT 0 Left BURAK DP BURAK DP 0 <Electronic Signature> 07/26/2025 07:39 AM Nikhil Andrews M.D. Procedure Note Nikhil Andrews MD - 07/26/2025 [facility] DOPPL[facility] - [facility]ILATERAL [facility] Pat.Name: ZANDER ADLER Pat.ID: [id number] .Date: 07/24/2025 Exam Time: 3:07:00 PM Study Type:SHANON VS Arterial Doppler Legs JONATAN Height: 66 in Age: 9 1945,80Y Sex: F Sonogrphr: Best Eddy, MICHELLEMS, RVT History / Clinical:BLE edema Procedures: Doppler waveforms, Digit PPG, Systolic Pressures w/BURAK Race: W ++++++++++++++++++++++++++++++++++++ SUMMARY: ++++++++++++++++++++++++++++++++++++ Andrés BURAK Criteria: >1.30 = falsely elevated, calcified vessels; 1.00-1.29 = no signif ischemia at rest ; .80-.99 = mild PAD, asymptomatic; .50-.79 = moderate PAD, claudication; <.50 = severe PAD, rest pain; <.30 = critical PAD, necrosis, poor healing (Digits: DBI >.60 Normal; <.60 Abnormal) (Positive Stress eval: BURAK decrease of >.20 or >20% pressure drop) Right leg: Common Femoral waveform is biphasic, low amplitude; Popliteal biphasic, low amplitude; Posterior Tibial biphasic, low amplitude with BURAK 0 ; DP/Anterior Tibial biphasic, low amplitude with BURAK 0 . Digit flow by PPG is not recorded with DBI . Left leg: Common Femoral waveform is biphasic, low amplitude; Popliteal biphasic, low amplitude; Posterior Tibial biphasic, low amplitude with BURAK 0 ; DP/Anterior Tibial biphasic, low amplitude with BURAK 0 . Digit flow by PPG is not recorded with DBI . Extremely limited non-diagnostic exam due to patients compliance and leg pain. CONCLUSION: 1. BURAK right leg were not obtained due to non-compressible vessels. The toe index was not obtained due to patient compliance. Dampened biphasic waveforms seen at each level. 2. BURAK left leg were not obtained due to non-compressible vessels. The toe index was not obtained due to patient compliance. Dampened biphasic waveforms seen at each level. 3. Extremely limited non-diagnostic exam due to patients compliance and leg pain. ++++++++++++++++++++++++++++++++++++ MEASUREMENTS: ++++++++++++++++++++++++++++++++++++ PRESSURES Right Brachial Brach P 136 mmHg Right Ankle DP AnkleDP P 0 mmHg Right Ankle PT AnklePT P 0 mmHg Right BURAK PT BURAK PT 0 Right BURAK DP BURAK DP 0 Left Ankle DP AnkleDP P 0 mmHg Left Ankle PT AnklePT P 0 mmHg Left BURAK PT BURAK PT 0 Left BURAK DP BURAK DP 0 <Electronic Signature> 07/26/2025 07:39 AM Nikhil Andrews M.D. Ritika Morton ESCROW MANAGER [facility] Final Result * (ABNORMAL) POCT glucose (07/24/2025 12:44 PM CDT) GLUCOSE POC 134(H) 70 - 99 mg/dL 07/24/2025 12:46 PM CDT [facility] 07/24/2025 12:4 4 PM CDT Ritika Morton ESCROW MANAGER POCT ORDERABLES - DEVICE Karen l Result [facility] [address] [place] [address], [place] [phone] * (ABNORMAL) POCT glucose (07/24/2025 6:18 AM CDT) GLUCOSE POC 140(H) 70 - 99 mg/dL 07/24/2025 6:26 AM CDT [facility] 07/24/2025 6:18 AM CDT us Ritika Morton ESCROW MANAGER POCT ORDERABLES - DEVICE Karen l Result [facility] [address] [place] [address], [place] [phone] * Vancomycin Random Level (07/24/2025 5:53 AM CDT) Pathologist [facility] VANCOMYCIN RANDOM 16.7 MCG/ML 07/24/2025 3:20 PM CDT [facility] Comment:NO THERAPEUTIC RANGE AVAILABLE LAST DOSE UNKNOWN 07/24/2025 2:59 PM CDT [facility] 07/24/2025 5:53 AM CDT Ritika Morton NP LABORATORY Final Result [facility] [address] [place] [address], [place] [phone] * (ABNORMAL) COMPREHENSIVE METABOLIC PANEL (07/24/2025 5:53 AM CDT) Pathologist [facility] GLUCOSE 129(H) 70 - 99 MG/DL 07/24/2025 7:00 AM CDT [facility] BUN 43(H) 7 - 18 MG/DL 07/24/2025 7:00 AM CDT [facility] CREATININE S/P/B 4.29(H) 0.55 - 1.02 MG/DL 07/24/2025 7:00 AM CDT [facility] SODIUM S/P/B 137 136 - 145 MMOL/L 07/24/2025 7:00 AM CDT [facility] POTASSIUM S/P/B 4.2 3.5 - 5.1 MMOL/L 07/24/2025 7:00 AM CDT [facility] CHLORIDE S/P/B 101 97 - 115 MMOL/L 07/24/2025 7:00 AM CDT [facility] CO2 26.3 21 - 32 MMOL/L 07/24/2025 7:[facility] CAL[facility] S/P/B 9.5 8.5 - 10.1 MG/DL 07/24/2025 7:00 AM [facility] BILIRUBIN TOTAL S/P/B 0.9 0.2 - 1.2 MG/DL 07/24/2025 7:00 AM [facility] Comment: THIS ASSAY IS NOT RECOMMENDED FOR PATIENTS UNDERGOING TREATMENT WITH ELTROMBOPAG DUE TO THE POTENTIAL FOR FALSELY ELEVATED RESULTS. TOTAL PROTEIN S/P/B 6.3(L) 6.4 - 8.2 G/DL 07/24/2025 7:00 AM [facility] ALBUMIN S/P/B 2.2(L) 3.4 - 5.0 G/DL 07/24/2025 7:00 AM [facility] AST 139(H) 15 - 37 U/L 07/24/2025 7:00 AM [facility] ALT 143(H) 14 - 55 U/L 07/24/2025 7:00 AM [facility] ALKALINE PHOSPHATASE S/P/B 230(H) 50 - 136 U/L 07/24/2025 7:00 AM [facility] ANION GAP 9.7 2 - 10 MMOL/L 07/24/2025 7:00 AM [facility] BUN CREATININE RATIO 10.0 6 - 26 07/24/2025 7:00 AM [facility] A/G RATIO 0.5(L) 1.0 - 2.0 RATIO 07/24/2025 7:00 AM [facility] GFR ESTIMATE 10(L) >90 ML/MIN/1.7 3 M2 07/24/2025 7:00 AM [facility] Comment: NOTE: eGFR is not calculated for patients <18 years of age or gender unknown. This is an estimated GFR calculation using the new CKD EPI creatinine equation without race and so does not require a correction factor for race. This estimated GFR should not be used for calculating drug doses. 07/24/2025 5:53 AM CDT us Ana GARCIA LABORATORY Final Result [facility] [address] [place] [address], * (ABNORMAL) CBC W/DIFF AUTOMATED (07/24/2025 5:53 AM CDT) WBC 7.10 4.5 - 11.0 x10'3/uL 07/24/2025 6:50 AM CDT [facility] RBC 2.95(L) 4.20 - 5.40 x10'6/uL 07/24/2025 6:50 AM CDT [facility] HGB 8.7(L) 12.0 - 16.0 G/DL 07/24/2025 6:50 AM CDT [facility] HCT 29.5(L) 38.0 - 48.0 % 07/24/2025 6:50 AM CDT [facility] MCV 100.0(H) 81.0 - 99.0 FL 07/24/2025 6:50 AM CDT [facility] MCH 29.5 27.0 - 31.0 PG 07/24/2025 6:50 AM CDT [facility] MCHC 29.5(L) 32.0 - 36.0 G/DL 07/24/2025 6:50 AM CDT [facility] RDW 16.0(H) 11.5 - 14.5 % 07/24/2025 6:50 AM CDT [facility] PLT 242 130 - 400 x10'3/uL 07/24/2025 6:50 AM CDT [facility] MPV 10.2 9.3 - 12.2 FL 07/24/2025 6:50 AM CDT [facility] DIFFERENTIAL TYPE AUTOMATED DIFFERENTIAL 07/24/2025 6:50 AM CDT [facility] NEUTROPHILS % 75.6 % 07/24/2025 6:50 AM CDT [facility] LYMPHOCYTES % 12.8 % 07/24/2025 6:50 AM CDT [facility] MONOCYTES % 8.5 % 07/24/2025 6:50 AM CDT [facility] EOSINOPHILS 2.4 % 07/24/2025 6:50 AM CDT [facility] BASOPHILS 0.3 % 07/24/2025 6:50 AM CDT [facility] IMMATURE GRANS % 0.4 % 07/24/20 6:50 AM CDT [facility] ABS. NEUTROPHILS 5.37 1.80 - 7.70 x10'3/uL 07/24/2025 6:50 AM CDT [facility] ABS. LYMPHOCYTES 0.91(L) 1.00 - 4.80 x10'3/uL 07/24/2025 6:50 AM CDT [facility] ABS. MONOCYTES 0.60 0.24 - 0.86 x10'3/uL 07/24/2025 6:50 AM CDT [facility] ABS. EOSINOPHILS 0.17 0.04 - 0.36 x10'3/uL 07/24/2025 6:50 AM CDT [facility] ABS. BASOPHILS 0.02 0.01 - 0.08 x10'3/uL 07/24/2025 6:50 AM CDT [facility] ABS. IMMATURE GRANULOCYTES 0.03 0.00 - 0.49 x10'3/uL 07/24/2025 6:50 AM CDT [facility] 07/24/2025 5:53 AM CDT Ana GARCIA LABORATORY Final Result [facility] [address] [place] [id number], * (ABNORMAL) PROCALCITONIN (PCT) (07/24/2025 5:53 AM CDT) PROCALCITONIN 0.88(H) 0.00 - 0.49 NG/ML 07/24/2025 8:43 AM CDT [facility] 07/24/2025 5:53 AM CDT Ana GARCIA LABORATORY Final Result Performing Organization Address City/[facility]/ZIP Co de Phone Number [facility] [address] [place] [phone], * (ABNORMAL) PHOSPHORUS, INORGANIC PHOSPHATE (07/24/2025 5:53 AM CDT) PHOSPHORUS 7.4(H) 2.5 - 4.9 MG/DL 07/24/2025 7:00 AM CDT [facility] 07/24/2025 5:53 AM CDT Dutch Cotton MD LABORATORY Final Result [facility] [address] [place] [phone], * (ABNORMAL) POCT glucose (07/23/2025 8:23 PM CDT) GLUCOSE POC 157(H) 70 - 99 mg/dL 07/23/2025 8:40 PM CDT [facility] 07/23/2025 8:2 3 PM CDT us Dutch Cotton MD POCT ORDERABLES - DEVICE Fin al Result [facility] [address] [place] [address], [place] [phone] * XR FOOT RT 2V (07/23/2025 5:48 PM CDT) Anatomical Region Laterality Modality Foot Radiographic Carmen ging 07/24/2025 2:12 AM CDT Impressions 07/24/2025 2:16 AM CDT IMPRESSION: 1. Diffusely demineralized bones without evidence to suggest acute fracture or malalignment of the bones of the right foot. 2. Osteoarthritis as above. 3. Soft tissue swelling overlying the medial aspect of the hindfoot. Referred By: Interpreted By: Jac Lara DO, 07/24/2025 2:12 AM Narrative 07/24/2025 2:16 AM CDT [facility] [address] [place], [place] [address] Examination: XR FOOT RT 2V Exam time: 07/23/2025 5:35 PM Clinical history: Right great toe pain. Comparison: None. Technique: AP and lateral views of the right foot obtained portably. Findings: The bones are diffusely demineralized. Soft tissue swelling overlies the medial aspect of the hindfoot. Mild osteoarthritis affects the first metatarsophalangeal joint. There is mild scattered interphalangeal joint osteoarthritis. Mild to moderate osteoarthritis affects the midfoot. Plantar and posterior calcaneal enthesophytes are noted. No radiographic evidence is seen to suggest acute fracture or malalignment of the bones of the right foot. There are atherosclerotic calcifications. Amorphous calcifications posterior and anterior to the lower leg are nonspecific but could be related to prior injury. There are hammertoe deformities of the lesser toes. Procedure Note Jac Lara DO - 07/24/[address] [address] Examination: XR FOOT RT 2V Exam time: 07/23/2025 5:35 PM Clinical history: Right great toe pain. Comparison: None. Technique: AP and lateral views of the right foot obtained portably. Findings: The bones are diffusely demineralized. Soft tissue swelling overlies themedial aspect of the hindfoot. Mild osteoarthritis affects the firstmetatarsophalangeal joint. There is mild scattered interphalangeal jointosteoarthritis. Mild to moderate osteoarthritis affects the midfoot.Plantar and posterior calcaneal enthesophytes are noted. No radiographicevidence is seen to suggest acute fracture or malalignment of the bones ofthe right foot. There are atherosclerotic calcifications. Amorphouscalcifications posterior and anterior to the lower leg are nonspecific butcould be related to prior injury. There are hammertoe deformities of thelesser toes. IMPRESSION: 1. Diffusely demineralized bones without evidence to suggest acutefracture or malalignment of the bones of the right foot. 2. Osteoarthritis as above. 3. Soft tissue swelling overlying the medial aspect of the hindfoot. Referred By: Interpreted By: Jac Lara DO, 07/24/2025 2:12 AM us Dutch Cotton MD GENERAL IMAGING Final Result * (ABNORMAL) POCT glucose (07/23/2025 3:54 PM CDT) GLUCOSE POC 197(H) 70 - 99 mg/dL 07/23/2025 4:04 PM CDT [facility] 07/23/2025 3:54 PM CDT us Dutch Cotton MD POCT ORDERABLES - DEVICE Fin al Result [facility] [address] [place] [address], [place] [phone] * USE ECHOCARDIOGRAM W CON (07/23/2025 2:34 PM CDT) Anatomical Region Laterality Modality NA Echocardiogram 07/23/2025 1:08 PM CDT Narrative 07/23/2025 3:59 PM CDT Echocardiography Report Pat.Name: ZANDER ADLER Pat.ID: [id number] .Date: 07/23/2025 Exam Time: 1:08:00 PM Study Type:ECHO WITH CARDIAC DOPPLER COMP Height: 66 in Weight: 270 lb BSA: 2.27 m2 Age: 9 1945,80Y Sex: F BP: 109/52 HR: 107 bpm Sonogrphr: Whitney Velazquez [facility] Pat. Stat.:Inpatient Room: [facility] Reason for Study:Congestive heart failure History / Clinical:BLE edema Procedures: 2D, M-mode, Doppler, Color Flow, Definity was used to enhance endocardial definition. The study quality is technically difficult. Race: W ++++++++++++++++++++++++++++++++++++ SUMMARY: ++++++++++++++++++++++++++++++++++++ Left ventricle is normal in size with low normal systolic function Estimated EF of 50-55% Moderate LVH Right ventricle is enlarged with low normal systolic function Moderate to severe aortic stenosis Mild to moderate mitral and pulmonic regurgitation Moderate tricuspid regurgitation Moderate pulmonary hypertension. Mildly dilated ascending aorta. ++++++++++++++++++++++++++++++++++++ FINDINGS: ++++++++++++++++++++++++++++++++++++ LV: The left ventricular size is normal. The left ventricular systolic function is lower limits of normal. Estimated left ventricular ejection fraction is 50-55%. Moderate concentric left ventricular hypertrophy. Left ventricular diastolic function is not reliably assessed. WM: Wall motion appears normal in all segments. RV: The right ventricular size is mild to moderately enlarged. Right ventricular systolic function is at the lower limit of normal. IVS: No evidence of ventricular septal defect. LA: The left atrial volume is severely increased (>48 ml/M2). RA: Right atrial size is mildly enlarged. IAS: Atrial septum appears intact. WILNER: No evidence of pericardial effusion. AO: The sinus of Valsalva measures 3.9cm. The proximal ascending aorta measures 4.1cm. PA: Estimated right atrial pressure of 8 mmHg. SVn: Inferior vena cava is not dilated. Inferior vena cava shows <50% collapse with respiration consistent with elevated right atrial pressure. AV: The aortic valve is trileaflet. Moderate to severe aortic valve stenosis. The peak velocity across the aortic valve measures 4.19m/sec with a peak gradient of 70mmHg and a mean gradient of 40mmHg. The calculated aortic valve area is 0.9cm2. No evidence of aortic valve regurgitation. Moderate to severe calcification of aortic valve leaflets. MV: Mild to moderate mitral regurgitation. No evidence of mitral stenosis. Moderate thickening of mitral valve leaflets. PV: No evidence of pulmonic valve stenosis. Mild to moderate pulmonic regurgitation. TV: Moderate tricuspid regurgitation. Right ventricular systolic pressure is 50-60 mmHg suggestive of moderate pulmonary hypertension. No evidence of tricuspid valve stenosis. ++++++++++++++++++++++++++++++++++++ MEASUREMENTS: ++++++++++++++++++++++++++++++++++++ DOPPLER LVOT LVOTpkPG 6 mmHg LVOTmnPG 3 mmHg LVOTpkVel 127 cm/s (70-110)+* LVOT SV 69 ml LVOT TVI 22 cm Right Atrium RA Press 8 mmHg Rasmussen's Disk 20 AV Forward Flow AV TVI 75 cm AV pkPG 61 mmHg AV pkVel 392 cm/s (100-170)+* Area (TVI) 0.92 cm2 (3-5)* AV mnPG 36 mmHg Area (Lee) 1.02 cm2 (3-5)* MV Forward Flow MV DeTm 194 msec MV P1/2t 57 msec (30-60)+ MVA P1/2t 3.86 cm2 (4-6)* MV pkE 155 cm/s (60-130)+* PV Forward Flow PV pkVel 107 cm/s (60-90)+* PV AC 89 msec PV pkPG 5 mmHg TV Regurg Flow TV pkPG 50 mmHg TV pkVel 354 cm/s (30-70)* Right Ventricle RVsys P 58 mmHg Right Ventricle 10.9 cm/s Lat E' Lat e 13.5 cm/s Lat E/E' Lat E/e 11.5 Med E' Med e 8.44 cm/s Med E/E' Med E/e 18.4 Aortic Valve Aortic Valve Ar 0.41 Aortic Valve Ve 0.32 AV DI Value 0.29 Left Ventricle LV IVRT 33 msec PV Antegrade Flow Acceleration Sl 1030 cm/s2 2D Left Ventricle LVIDd 5.13 cm (3.6-5.2) LV ESV 23.2 ml LVIDs 3.87 cm (2.3-3.9) LV ESV 53.7 ml LngAxd 7.61 cm LVESV BP 35.2 ml LngAxd 7.93 cm LV EF 57.4 % LV EDV 54.5 ml LV EF 53.3 % LV EDV 115 ml LV EF BP 56.4 % LVEDV BP 80.7 ml LV SV 31.3 ml LngAxs 6.53 cm LV SV 61.3 ml LngAxs 6.64 cm LV SV BP 45.5 ml LVPW LVPWd 1.38 cm Ventricular Septum IVSd 1.39 cm Left Atrium LA VOLBP 179 ml Aorta Ao Rtd 3.9 cm Ao Asc 4.1 cm (2.1-3.4)* LVOT LVOT 2 cm LVOTArea 3.14 cm2 Ratios IVS Inferior vena cava IVC Diam 17.9 mm LA Biplane LAVol I BP 78.9 ml/m2 RA Single Plane Right Atrium MO 17.7 mm Right Atrium Sy 71.1 ml Right Atrium Sy 61.4 mm Right Atrium Sy 31.3 ml/m2 Right Atrium Sy 22.6 cm2 Right Ventricle Right Ventricle 45.6 mm Right Ventricle 38.3 mm [place] 68.2 mm MMODE TA Tricuspid Annul 15.2 mm <Electronic Signature> 07/23/2025 03:59 PM Real Hodges M.D. Procedure Note Real Hodges MD - 07/23/2025 Echocardiography Report Pat.Name: ZANDER ADLER Pat.ID: [id number] .Date: 07/23/2025 Exam Time: 1:08:00 PM Study Type:ECHO WITH CARDIAC DOPPLER COMP Height: 66 in Weight: 270 lb BSA: 2.27 m2 Age: 9 1945,80Y Sex: F BP: 109/52 HR: 107 bpm Sonogrphr: Whitney Velazquez [facility] Pat. Stat.:Inpatient Room: [facility] Reason for Study:Congestive heart failure History / Clinical:BLE edema Procedures: 2D, M-mode, Doppler, Color Flow, Definity was used to enhance endocardial definition. The study quality is technically difficult. Race: W ++++++++++++++++++++++++++++++++++++ SUMMARY: ++++++++++++++++++++++++++++++++++++ Left ventricle is normal in size with low normal systolic function Estimated EF of 50-55% Moderate LVH Right ventricle is enlarged with low normal systolic function Moderate to severe aortic stenosis Mild to moderate mitral and pulmonic regurgitation Moderate tricuspid regurgitation Moderate pulmonary hypertension. Mildly dilated ascending aorta. ++++++++++++++++++++++++++++++++++++ FINDINGS: ++++++++++++++++++++++++++++++++++++ LV: The left ventricular size is normal. The left ventricular systolic function is lower limits of normal. Estimated left ventricular ejection fraction is 50-55%. Moderate concentric left ventricular hypertrophy. Left ventricular diastolic function is not reliably assessed. WM: Wall motion appears normal in all segments. RV: The right ventricular size is mild to moderately enlarged. Right ventricular systolic function is at the lower limit of normal. IVS: No evidence of ventricular septal defect. LA: The left atrial volume is severely increased (>48 ml/M2). RA: Right atrial size is mildly enlarged. IAS: Atrial septum appears intact. WILNER: No evidence of pericardial effusion. AO: The sinus of Valsalva measures 3.9cm. The proximal ascending aorta measures 4.1cm. PA: Estimated right atrial pressure of 8 mmHg. SVn: Inferior vena cava is not dilated. Inferior vena cava shows <50% collapse with respiration consistent with elevated right atrial pressure. AV: The aortic valve is trileaflet. Moderate to severe aortic valve stenosis. The peak velocity across the aortic valve measures 4.19m/sec with a peak gradient of 70mmHg and a mean gradient of 40mmHg. The calculated aortic valve area is 0.9cm2. No evidence of aortic valve regurgitation. Moderate to severe calcification of aortic valve leaflets. MV: Mild to moderate mitral regurgitation. No evidence of mitral stenosis. Moderate thickening of mitral valve leaflets. PV: No evidence of pulmonic valve stenosis. Mild to moderate pulmonic regurgitation. TV: Moderate tricuspid regurgitation. Right ventricular systolic pressure is 50-60 mmHg suggestive of moderate pulmonary hypertension. No evidence of tricuspid valve stenosis. ++++++++++++++++++++++++++++++++++++ MEASUREMENTS: ++++++++++++++++++++++++++++++++++++ DOPPLER LVOT LVOTpkPG 6 mmHg LVOTmnPG 3 mmHg LVOTpkVel 127 cm/s (70-110)+* LVOT SV 69 ml LVOT TVI 22 cm Right Atrium RA Press 8 mmHg Rasmussen's Disk 20 AV Forward Flow AV TVI 75 cm AV pkPG 61 mmHg AV pkVel 392 cm/s (100-170)+* Area (TVI) 0.92 cm2 (3-5)* AV mnPG 36 mmHg Area (Lee) 1.02 cm2 (3-5)* MV Forward Flow MV DeTm 194 msec MV P1/2t 57 msec (30-60)+ MVA P1/2t 3.86 cm2 (4-6)* MV pkE 155 cm/s (60-130)+* PV Forward Flow PV pkVel 107 cm/s (60-90)+* PV AC 89 msec PV pkPG 5 mmHg TV Regurg Flow TV pkPG 50 mmHg TV pkVel 354 cm/s (30-70)* Right Ventricle RVsys P 58 mmHg Right Ventricle 10.9 cm/s Lat E' Lat e 13.5 cm/s Lat E/E' Lat E/e 11.5 Med E' Med e 8.44 cm/s Med E/E' Med E/e 18.4 Aortic Valve Aortic Valve Ar 0.41 Aortic Valve Ve 0.32 AV DI Value 0.29 Left Ventricle LV IVRT 33 msec PV Antegrade Flow Acceleration Sl 1030 cm/s2 2D Left Ventricle LVIDd 5.13 cm (3.6-5.2) LV ESV 23.2 ml LVIDs 3.87 cm (2.3-3.9) LV ESV 53.7 ml LngAxd 7.61 cm LVESV BP 35.2 ml LngAxd 7.93 cm LV EF 57.4 % LV EDV 54.5 ml LV EF 53.3 % LV EDV 115 ml LV EF BP 56.4 % LVEDV BP 80.7 ml LV SV 31.3 ml LngAxs 6.53 cm LV SV 61.3 ml LngAxs 6.64 cm LV SV BP 45.5 ml LVPW LVPWd 1.38 cm Ventricular Septum IVSd 1.39 cm Left Atrium LA VOLBP 179 ml Aorta Ao Rtd 3.9 cm Ao Asc 4.1 cm (2.1-3.4)* LVOT LVOT 2 cm LVOTArea 3.14 cm2 Ratios IVS Inferior vena cava IVC Diam 17.9 mm LA Biplane LAVol I BP 78.9 ml/m2 RA Single Plane Right Atrium MO 17.7 mm Right Atrium Sy 71.1 ml Right Atrium Sy 61.4 mm Right Atrium Sy 31.3 ml/m2 Right Atrium Sy 22.6 cm2 Right Ventricle Right Ventricle 45.6 mm Right Ventricle 38.3 mm [place] 68.2 mm MMODE TA Tricuspid Annul 15.2 mm <Electronic Signature> 07/23/2025 03:59 PM Real Hodges, M.D. us Ana Sabrina PA ECHO Final Result * (ABNORMAL) COMPREHENSIVE METABOLIC PANEL (07/23/2025 5:42 AM CDT) [facility] GLUCOSE 66(L) 70 - 99 MG/DL 07/23/2025 6:57 AM CDT [facility] BUN 29(H) 7 - 18 MG/DL 07/23/2025 6:57 AM CDT [facility] CREATININE S/P/B 3.19(H) 0.55 - 1.02 MG/DL 07/23/2025 6:57 AM CDT [facility] SODIUM S/P/B 137 136 - 145 MMOL/L 07/23/2025 6:57 AM CDT [facility] POTASSIUM S/P/B 4.2 3.5 - 5.1 MMOL/L 07/23/2025 6:57 AM CDT [facility] CHLORIDE S/P/B 101 97 - 115 MMOL/L 07/23/2025 6:57 AM CDT [facility] CO2 27.1 21 - 32 MMOL/L 07/23/2025 6:57 AM CDT [facility] CALCIUM S/P/B 9.9 8.5 - 10.1 MG/DL 07/23/2025 6:57 AM CDT [facility] BILIRUBIN TOTAL S/P/B 0.8 0.2 - 1.2 MG/DL 07/23/2025 6:57 AM CDT [facility] Comment: THIS ASSAY IS NOT RECOMMENDED FOR PATIENTS UNDERGOING TREATMENT WITH ELTROMBOPAG DUE TO THE POTENTIAL FOR FALSELY ELEVATED RESULTS. TOTAL PROTEIN S/P/B 6.0(L) 6.4 - 8.2 G/DL 07/23/2025 6:57 AM CDT [facility] ALBUMIN S/P/B 2.1(L) 3.4 - 5.0 G/DL 07/23/2025 6:57 AM CDT [facility] AST 269(H) 15 - 37 U/L 07/23/2025 6:57 AM CDT [facility] ALT 167(H) 14 - 55 U/L 07/23/2025 6:57 AM CDT [facility] ALKALINE PHOSPHATASE S/P/B 219(H) 50 - 136 U/L 07/23/2025 6:57 AM CDT [facility] ANION GAP 8.9 2 - 10 MMOL/L 07/23/2025 6:57 AM CDT [facility] BUN CREATININE RATIO 9.1 6 - 26 07/23/2025 6:57 AM CDT [facility] A/G RATIO 0.5(L) 1.0 - 2.0 RATIO 07/23/2025 6:57 AM T [facility] GFR ESTIMATE 14(L) >90 ML/MIN/1.7 3 M2 07/23/2025 6:57 AM CDT [facility] Comment: NOTE: eGFR is not calculated for patients <18 years of age or gender unknown. This is an estimated GFR calculation using the new CKD EPI creatinine equation without race and so does not require a correction factor for race. This estimated GFR should not be used for calculating drug doses. 07/23/2025 5:42 AM CDT Ana GARCIA LABORATORY Final Result [facility] [address] [place] [address], [place] [phone] * (ABNORMAL) CBC W/DIFF AUTOMATED (07/23/2025 5:42 AM CDT) WBC 7.44 4.5 - 11.0 x10'3/uL 07/23/2025 6:19 AM CDT [facility] RBC 2.90(L) 4.20 - 5.40 x10'6/uL 07/23/2025 6:19 AM CDT [facility] HGB 8.4(L) 12.0 - 16.0 G/DL 07/23/2025 6:19 AM CDT [facility] HCT 28.4(L) 38.0 - 48.0 % 07/23/2025 6:19 AM CDT [facility] MCV 97.9 81.0 - 99.0 FL 07/23/2025 6:19 AM CDT [facility] MCH 29.0 27.0 - 31.0 PG 07/23/2025 6:19 AM CDT [facility] MCHC 29.6(L) 32.0 - 36.0 G/DL 07/23/2025 6:19 AM CDT [facility] RDW 15.9(H) 11.5 - 14.5 % 07/23/2025 6:19 AM CDT [facility] PLT 254 130 - 400 x10'3/uL 07/23/2025 6:19 AM CDT [facility] MPV 10.0 9.3 - 12.2 FL 07/23/2025 6:19 AM CDT [facility] DIFFERENTIAL TYPE AUTOMATED DIFFERENTIAL 07/23/2025 6:19 AM CDT [facility] NEUTROPHILS % 79.5 % 07/23/2025 6:19 AM CDT [facility] LYMPHOCYTES % 9.5 % 07/23/2025 6:19 AM T [facility] MONOCYTES % 7.0 % 07/23/2025 6:19 AM CDT [facility] EOSINOPHILS 3.0 % 07/23/2025 6:19 AM CDT [facility] BASOPHILS 0.5 % 07/23/2025 6:19 AM CDT [facility] IMMATURE GRANS % 0.5 % 07/23/20 6:19 AM CDT [facility] ABS. NEUTROPHILS 5.91 1.80 - 7.70 x10'3/uL 07/23/2025 6:19 AM CDT [facility] ABS. LYMPHOCYTES 0.71(L) 1.00 - 4.80 x10'3/uL 07/23/2025 6:19 AM CDT [facility] ABS. MONOCYTES 0.52 0.24 - 0.86 x10'3/uL 07/23/2025 6:19 AM CDT [facility] ABS. EOSINOPHILS 0.22 0.04 - 0.36 x10'3/uL 07/23/2025 6:19 AM CDT [facility] ABS. BASOPHILS 0.04 0.01 - 0.08 x10'3/uL 07/23/2025 6:19 AM CDT [facility] ABS. IMMATURE GRANULOCYTES 0.04 0.00 - 0.49 x10'3/uL 07/23/2025 6:19 AM CDT [facility] 07/23/2025 5:42 AM CDT us Ana GARCIA LABORAT[facility] Final Result [facility] [address] [place] [address], [place] [phone] * (ABNORMAL) PROCALCITONIN (PCT) (07/23/2025 5:42 AM CDT) PROCALCITONIN 0.91(H) 0.00 - 0.49 NG/ML 07/23/2025 6:52 AM CDT [facility] 07/23/2025 5:42 AM CDT Ana GARCIA LABORAT[facility] Final Result Performing Organization Address City/[facility]/ZIP Co de Phone Number [facility] [address] [place] [address], [place] [phone] * THYROID STIM HORMONE, TSH (07/23/2025 5:42 AM CDT) TSH 2.910 0.358 - 3.74 uIU/ML 07/23/2025 6:57 AM CDT [facility] Comment: HIGH DOSES OF BIOTIN MAY INTERFERE WITH THIS TEST RESULT. CORRELATION TO CLINICAL HISTORY AND PRESENTATION RECOMMENDED. 07/23/2025 5:42 AM CDT Ana GARCIA [facility]OR[facility] Final Result Performing Organization Address [facility] Co de Phone Number [facility] [address] [place] [address], [place] [phone] * (ABNORMAL) HEMOGLOBIN, GLYCATED (07/23/2025 5:42 AM CDT) HGB A1C 7.4(H) <5.7 % 07/23/2025 9:51 AM CDT [facility] Comment: ADA GUIDELINES 2010 5.7 TO 6.4% INCREASED RISK OF DIABETES > OR = 6.5% CONSISTENT WITH DIABETES ESTIMATED AVG GLUCOSE 166 mg/dL 07/23/2025 9:51 AM CDT [facility] 07/23/2025 5:42 AM CDT Ana GARCIA LABORAT[facility] Final Result [facility] [address] [place] [address], [place] [phone] * MAGNESIUM (07/23/2025 5:42 AM CDT) MAGNESIUM 1.9 1.8 - 2.4 MG/DL 07/23/2025 6:57 AM CDT [facility] 07/23/2025 5:42 AM CDT Ana GARCIA LABORAT[facility] Final Result Performing Organization Address City/[facility]/ZIP Co de Phone Number [facility] [address] [place] [address], [place] [phone] * (ABNORMAL) MRSA screening (07/22/2025 11:15 PM CDT) SPEC DESCRIPTION NASAL 07/22/2025 11:13 PM CDT [facility] SPECIAL REQUESTS NO SPECIAL REQUEST 07/22/2025 11:13 PM CDT [facility] CULTURE RESULT METHICILLIN RESISTANT STAPHYLOCOCCUS AUREUS ISOLATED(AA) 07/24/2025 6:32 AM CDT [facility] CULTURE RESULT CALLED TO AND REPEATED BACK BY KAYLA RAY RN AT 0630 ON 07/24/25 YUDY 07/24/2025 6:32 AM CDT [facility] SPECIMEN FROM INTERNAL NOSE / Unknown 07/22/2025 11:15 PM CDT 07/22/2025 11:28 PM CDT us Ana GARCIA MICROBIOLOGY - GENERAL ORDERABL ES Final Result [facility] [address] [place] [address], [place] [phone] * LEGIONELLA AG URINE (07/22/2025 5:13 PM CDT) LEGIONELLA ANTIGEN (URINE) NEGATIVE NEGATIVE 07/23/2025 6:01 PM CDT [facility] URINE SPECIMEN / Unknown 07/22/2025 5:13 PM CDT Ana GARCIA MICROBIOLOGY - GENERAL ORDERABL ES Final Result [facility] [address] [place] [address], [place] [phone] * (ABNORMAL) CULTURE URINE (07/22/2025 5:13 PM CDT) SPEC DESCRIPTION URINE STRAIGHT CATH 07/22/2025 5:14 PM CDT [facility] SPECIAL REQUESTS NO SPECIAL REQUEST 07/22/2025 5:14 PM CDT [facility] CULTURE RESULT 1,000-9,000 COL/ML ETIENNE ALBICANS SUSCEPTIBILTY NOT ROUTINELY PERFORMED. SAVING ISOLATE FOR 5 DAYS. CONTACT MICROBIOLOGY DEPARTMENT IF FURTHER WORKUP IS INDICATED. (A) 07/24/2025 6:57 AM CDT [facility] URINE SPECIMEN OBTAINED BY SINGLE CATHETERIZATION OF URINARY BLADDER / Unknown 07/22/2025 5:13 PM CDT 07/22/2025 5:19 PM CDT us Heather Guevara MD MICROBIOLOGY - GENERAL ORDERA BLES Final Result [facility] [address] [place] [address], [place] [phone] * (ABNORMAL) URINALYSIS (07/22/2025 5:13 PM CDT) SPECIMEN TYPE URINE STRAIGHT CATH 07/22/2025 5:13 PM CDT [facility] COLOR (U) ORANGE 07/22/2025 5:34 PM CDT [facility] TRANSPARENCY EXTREMELY TURBID 07/22/2025 5:34 PM CDT [facility] SPECIFIC GRAVITY (U) 1.018 1.001 - 1.030 07/22/2025 5:34 PM CDT [facility] U PH 6.5 5.0 - 9.0 07/22/2025 5:34 PM CDT [facility] LEUKOCYTES (U) 500(A) NEGATIVE 07/22/2025 5:34 PM CDT [facility] NITRITES NEGATIVE NEGATIVE 07/22/2025 5:34 PM CDT [facility] PROTEIN RANDOM (U) 200(H) <30 MG/DL 07/22/2025 5:34 PM T [facility] GLUCOSE (U) 50(A) NORMAL MG/DL 07/22/2025 5:34 PM CDT [facility] KETONES MG/DL (U) NEGATIVE NEGATIVE MG/DL 07/22/2025 5:34 PM T [facility] UROBILINOGEN NORMAL NORMAL MG/DL 07/22/2025 5:34 PM T [facility] BILIRUBIN (U) NEGATIVE NEGATIVE MG/DL 07/22/2025 5:34 PM T [facility] BLOOD (U) 3+(A) NEGATIVE 07/22/2025 5:34 PM T [facility] WBC/HPF >100(H) <6 /HPF 07/22/2025 5:34 PM T [facility] WBC CLUMPS PRESENT 07/22/2025 5:34 PM CDT [facility] RBC/HPF >100(H) <6 /HPF 07/22/2025 5:34 PM CDT [facility] SQUAMOUS EPITHELIALS MODERATE /HPF 07/22/2025 5:34 PM CDT [facility] URINE, STRAIGHT CATH 07/22/2025 5:13 PM CDT Heather Guevara MD URINE ORDERABLES Final Result Performing Organization Address City/[facility]/ZIP Co de Phone Number [facility] [address] [place] [address], [place] [phone] * LACTIC ACID W REFLEX (SEPSIS) (07/22/2025 4:33 PM CDT) LACTIC ACID VENOUS 2.0 0.4 - 2.0 MMOL/L 07/22/2025 5:08 PM CDT [facility] 07/22/2025 4:33 PM CDT Heather Guevara MD LABORATORY Final Result Performing Organization Address City/[facility] Co de Phone Number [facility] [address] [place] [address], [place] [phone] * USV CLINT DUPLEX LOW EXT JONATAN (07/22/2025 3:51 PM CDT) Anatomical Region Laterality Modality Extremity Vascular Ultraso und 07/22/2025 3:33 PM CDT Narrative 07/23/2025 9:59 PM CDT VENOUS DUPLEX IMAGING BILATERAL LOWER EXTREMITY [facility]ASC[facility] Pat.Name: ZANDER ADLER.ID: [id number] .Date: 07/22/2025 Refer.: [id number], Live zhang Exam Time: 3:33:00 PM Study Type:SHANON VS Venous Duplex Legs JONATAN Height: 67 in Age: 9 1945,80Y Sex: F Sonogrphr: Best Eddy RDMS, RVT History / Clinical:BLE edema Procedures: Linda scale, Color Doppler imaging, Doppler Spectral Analysis Race: W ++++++++++++++++++++++++++++++++++++ SUMMARY: ++++++++++++++++++++++++++++++++++++ Right leg: There are NO apparent, deep or superficial vein, ACUTE character venous filling defects visualized in the common femoral, proximal deep femoral, femoral, popliteal, gastrocnemius, posterior tibial, peroneal, great saphenousveins. Resting venous flow is phasic and significantly pulsatile. Left leg: There are NO apparent, deep or superficial vein, ACUTE character venous filling defects visualized in the common femoral, proximal deep femoral, femoral, popliteal, gastrocnemius, posterior tibial, peroneal, great saphenousveins. Resting venous flow is phasic and significantly pulsatile. Limited exam bilaterally due to patients condition, lower extremity swelling, and patients pain tolerance with compression. CONCLUSION: Limited exam bilaterally due to patients condition, lower extremity swelling, and patients pain tolerance with compression. No evidence of acute DVT or SVT seen in the bilateral lower extrmities. Pulsatile venous flows are suggestive of central venous hypertension (CHF, pulmonary HTN, right heart failure), though this may be a normal finding in a young, healthy patient. <Electronic Signature> 07/23/2025 09:59 PM Nikhil Andrews M.D. Procedure Note Nikhil Andrews MD - 07/23/2025 VENOUS DUPLEX IMAGING BILATERAL LOWER EXTREMITY [facility]ASC[facility] Pat.Name: NAYELY ZANDER M Pat.ID: [id number] .Date: 07/22/2025 Zulma.: [id number], Live zhang Exam Time: 3:33:00 PM Study Type:SHANON VS Venous Duplex Legs JONATAN Height: 67 in Age: 9 1945,80Y Sex: F Sonogrphr: Best Eddy RDMS, RVT History / Clinical:BLE edema Procedures: Linda scale, Color Doppler imaging, Doppler Spectral Analysis Race: W ++++++++++++++++++++++++++++++++++++ SUMMARY: ++++++++++++++++++++++++++++++++++++ Right leg: There are NO apparent, deep or superficial vein, ACUTE character venous filling defects visualized in the common femoral, proximal deep femoral, femoral, popliteal, gastrocnemius, posterior tibial, peroneal, great saphenousveins. Resting venous flow is phasic and significantly pulsatile. Left leg: There are NO apparent, deep or superficial vein, ACUTE character venous filling defects visualized in the common femoral, proximal deep femoral, femoral, popliteal, gastrocnemius, posterior tibial, peroneal, great saphenousveins. Resting venous flow is phasic and significantly pulsatile. Limited exam bilaterally due to patients condition, lower extremity swelling, and patients pain tolerance with compression. CONCLUSION: Limited exam bilaterally due to patients condition, lower extremity swelling, and patients pain tolerance with compression. No evidence of acute DVT or SVT seen in the bilateral lower extrmities. Pulsatile venous flows are suggestive of central venous hypertension (CHF, pulmonary HTN, right heart failure), though this may be a normal finding in a young, healthy patient. <Electronic Signature> 07/23/2025 09:59 PM Nikhil Andrews M.D. us Ana GARCIA VAS Final Result * CT CHEST W CON (07/22/2025 3:22 PM CDT) Anatomical Region Laterality Modality Chest Computed Tomogra phy 07/22/2025 3:46 PM CDT Impressions 07/22/2025 4:35 PM CDT IMPRESSION: 1. No CT evidence of pulmonary embolus to the lobar level as above 2. Large area of consolidative opacity left lower lobe probably infectious inflammatory consolidative pneumonia. 3. Small, probably associated left pleural effusion 4. Mild findings suggestive of dependent pulmonary edema or could be fluid/volume overload 5. The calcified lesion in the right upper lung is seen to be calcified thyroid nodule. Additional stable findings of multinodular goiter. 6. Cardiomegaly with small possibly physiologic pericardial effusion. 7. Stable large calcified right adrenal adenoma and small left adrenal adenoma 8. Scattered calcifications more numerous in the left than the right breast; might consider referral to breast imaging Center for further evaluation 9. Right upper extremity opacified ectatic venous varicosities from the subclavian and axillary veins may be related to prior right upper extremity AV fistula. This should be confirmed in the medical record. Referred By: Interpreted By: Deborah Sexton DO, 07/22/2025 3:46 PM Narrative 07/22/2025 4:[address] PM [address] [address] EXAMINATION: CTA CHEST. PULMONARY EMBOLUS PROTOCOL CLINICAL INDICATION: 80-year-old female. Reason for examination: Nodule in the right upper lobe. Possible atypical pneumonia, atrial fibrillation look for pulmonary embolus. Abnormal chest x-ray . TECHNIQUE: CT acquisition was performed according to the standard protocol from the aortic arch to the upper abdomen during the pulmonary enhancement phase of an intravenous contrast bolus of 80 cc of Isovue 370. Intravenous contrast injected into indwelling access in the right antecubital fossa. No adverse contrast reaction reported. Additional coronal 3-D reconstructions and postprocessing volume rendered MIP vascular images of the pulmonary arteries was performed. Dose lowering technique was used for this study which may include, but is not limited to, dose reduction techniques, automated exposure control, use of iterative reconstruction and ALARA (As low As Reasonably Achievable)/Image Gently techniques. COMPARISON: Portable AP view of the chest 07/22/2025 and 01/11/2024 CT of the chest without contrast 07/18/2016 and 07/11/2016 Thyroid ultrasound 07/14/2016 CT cervical spine without contrast 04/12/2022 Nuclear medicine VQ scan 07/11/2016 FINDINGS: The study was technically adequate to the lobar level only. No intraluminal filling defects, wall thickening, or thrombus is present in the pulmonary arterial vascular tree to the lobar level suggest pulmonary embolus . A segmental or subsegmental pulmonary embolus would not be seen on this study due to respiratory motion and a small, renal preserving bolus. Lower neck/chest soft tissues: The partially calcified lesion in the right upper chest right lower neck supraclavicular region is redemonstrated and is seen to be large calcified right thyroid nodule, stable evaluated and noted since 2016. Most recently nearly identical appearance on CT of the cervical spine. Today this measures 4.1 x 2.7 x 3.8 cm similar to that documented on the thyroid ultrasound of 2016. Additional calcified and noncalcified nodules in the enlarged left and right lobe of the thyroid in keeping with the given diagnosis of previous imaging of multinodular goiter. There are scattered calcifications throughout the left and right breast tissues. Might consider referral to breast imaging Center for further evaluation Numerous spiderlike opacified ectatic superficial right breast wall and right subclavian and axillary vein varicosities may be sequela of right upper extremity AV fistula. Lungs/pleura: There is a small left pleural effusion and overlying larger area of dense consolidation and atelectasis suspect for infectious inflammatory consolidative pneumonia involving the lingula and the left lower lobe. Left upper lobe clear and the right lung is clear. There is subtle dependent interlobular septal thickening hazy posterior groundglass opacity which could represent mild pulmonary edema or reflective of fluid/volume overload. Heart/great vessels/aorta: Stable measured ectasia ascending aorta maximal diameter 40 mm unchanged since 2016. Normal caliber aortic arch descending aorta and suprarenal aorta. Widespread calcific atherosclerosis of the aorta and heavy plaque at the ostia the celiac trunk and SMA and right and left renal arteries has increased since 2016. Since December 2023 the patient has received of right IJ hemodialysis catheter and the tips are in good position at the right atrial SVC junction. Mild cardiomegaly due to four-chamber enlargement. Aortic valve and coronary artery calcifications. Small, 8mm probably physiologic pericardial effusion. Mild hepatic venous reflux probably chronically elevated right heart pressures or fluid/volume overload. Mediastinum/itzel: There is no mediastinal or hilar or axillary lymphadenopathy. Esophagus unremarkable. No evidence of thoracic aortic dissection. Upper abdomen: Scattered granulomata throughout the liver and spleen mild diffuse hepatic steatosis. Status post cholecystectomy. Tiny bilateral atrophic kidneys. Calcified enlarged right adrenal gland, likely calcified adenoma unchanged since 2016. Small hypodense left adrenal gland nodule also unchanged since 2016, probably stable adenoma. Bone window imaging: No acute or pathologic bony abnormality. Widespread diminished bone density exaggeration thoracic kyphosis long segment anterior longitudinal ligament calcification may be DISH.. Procedure Note Deborah Sexton MD - 07/22/2025 [facility] [address] [place], [place] [address] EXAMINATION: CTA CHEST. PULMONARY EMBOLUS PROTOCOL CLINICAL INDICATION: 80-year-old female. Reason for examination: Nodule in the right upper lobe. Possible atypical pneumonia, atrialfibrillation look for pulmonary embolus. Abnormal chest x-ray . TECHNIQUE: CT acquisition was performed according to the standard protocol from theaortic arch to the upper abdomen during the pulmonary enhancement phaseof an intravenous contrast bolus of 80 cc of Isovue 370. Intravenouscontrast injected into indwelling access in the right antecubital fossa.No adverse contrast reaction reported. Additional coronal 3-D reconstructions and postprocessing volume renderedMIP vascular images of the pulmonary arteries was performed. Dose lowering technique was used for this study which may include, but isnot limited to, dose reduction techniques, automated exposure control, useof iterative reconstruction and ALARA (As low As ReasonablyAchievable)/Image Gently techniques. COMPARISON: Portable AP view of the chest 07/22/2025 and 01/11/2024 CT of the chest without contrast 07/18/2016 and 07/11/2016 Thyroid ultrasound 07/14/2016 CT cervical spine without contrast 04/12/2022 Nuclear medicine VQ scan 07/11/2016 FINDINGS: The study was technically adequate to the lobar level only. No intraluminal filling defects, wall thickening, or thrombus is presentin the pulmonary arterial vascular tree to the lobar level suggestpulmonary embolus . A segmental or subsegmental pulmonary embolus would not be seen on thisstudy due to respiratory motion and a small, renal preserving bolus. Lower neck/chest soft tissues: The partially calcified lesion in the right upper chest right lower necksupraclavicular region is redemonstrated and is seen to be large calcifiedright thyroid nodule, stable evaluated and noted since 2016. Mostrecently nearly identical appearance on CT of the cervical spine. Todaythis measures 4.1 x 2.7 x 3.8 cm similar to that documented on the thyroidultrasound of 2016. Additional calcified and noncalcified nodules in theenlarged left and right lobe of the thyroid in keeping with the givendiagnosis of previous imaging of multinodular goiter. There are scatteredcalcifications throughout the left and right breast tissues. Mightconsider referral to breast imaging Center for further evaluation Numerous spiderlike opacified ectatic superficial right breast wall andright subclavian and axillary vein varicosities may be sequela of rightupper extremity AV fistula. Lungs/pleura: There is a small left pleural effusion and overlying larger area of denseconsolidation and atelectasis suspect for infectious inflammatoryconsolidative pneumonia involving the lingula and the left lower lobe.Left upper lobe clear and the right lung is clear. There is subtledependent interlobular septal thickening hazy posterior groundglassopacity which could represent mild pulmonary edema or reflective offluid/volume overload. Heart/great vessels/aorta: Stable measured ectasia ascending aorta maximal diameter 40 mm unchangedsince 2016. Normal caliber aortic arch descending aorta and suprarenalaorta. Widespread calcific atherosclerosis of the aorta and heavy plaqueat the ostia the celiac trunk and SMA and right and left renal arterieshas increased since 2016. Since December 2023 the patient has received ofright IJ hemodialysis catheter and the tips are in good position at theright atrial SVC junction. Mild cardiomegaly due to four-chamber enlargement. Aortic valve andcoronary artery calcifications. Small, 8mm probably physiologicpericardial effusion. Mild hepatic venous reflux probably chronicallyelevated right heart pressures or fluid/volume overload. Mediastinum/itzel: There is no mediastinal or hilar or axillary lymphadenopathy. Esophagusunremarkable. No evidence of thoracic aortic dissection. Upper abdomen: Scattered granulomata throughout the liver and spleen mild diffuse hepaticsteatosis. Status post cholecystectomy. Tiny bilateral atrophic kidneys.Calcified enlarged right adrenal gland, likely calcified adenomaunchanged since 2016. Small hypodense left adrenal gland nodule alsounchanged since 2016, probably stable adenoma. Bone window imaging: No acute or pathologic bony abnormality. Widespread diminished bonedensity exaggeration thoracic kyphosis long segment anterior longitudinalligament calcification may be DISH.. IMPRESSION: 1. No CT evidence of pulmonary embolus to the lobar level as above 2. Large area of consolidative opacity left lower lobe probablyinfectious inflammatory consolidative pneumonia. 3. Small, probably associated left pleural effusion 4. Mild findings suggestive of dependent pulmonary edema or could befluid/volume overload 5. The calcified lesion in the right upper lung is seen to be calcifiedthyroid nodule. Additional stable findings of multinodular goiter. 6. Cardiomegaly with small possibly physiologic pericardial effusion. 7. Stable large calcified right adrenal adenoma and small left adrenaladenoma 8. Scattered calcifications more numerous in the left than the rightbreast; might consider referral to breast imaging Center for furtherevaluation 9. Right upper extremity opacified ectatic venous varicosities from thesubclavian and axillary veins may be related to prior right upperextremity AV fistula. This should be confirmed in the medical record. Referred By: Interpreted By: Deborah Sexton DO, 07/22/2025 3:[address] Final Result * HISTOPLASMA ANTIBODY (07/22/2025 2:37 PM CDT) HISTOPLASMA CAPSULATUM H AB Negative Negative 07/27/2025 10:45 AM CDT [facility] TON[facility]OR[facility] Comment: This immunodiffusion assay is highly specific for Histoplasmosis infection but may have low sensitivity in early infection. Two different immunoprecipitin bands may be detected. The M band develops with acute infection, is often present in chronic infection, and may persist for months to years. The M band may be detected in persons with recent histoplasmin skin testing. The H band, which is usually present with the M band, generally suggests a chronic or severe acute infection. The presence of both the H and M bands is considered conclusive for the diagnosis of histoplasmosis. Test Performed by [email or web address], [email or web address] [facility], [address] [place] [address] Heladio Chiu M.D., Ph.D., Director of Laboratories , CLIA [id number] HISTOPLASMA CAPSULATUM M AB Negative Negative 07/27/2025 10:45 AM CDT [facility] 07/22/2025 2:37 PM CDT us Ana GARCIA LABORATORY Final Result [facility] [address] [place], [place] , * (ABNORMAL) MYCOPLASMA PNEUMONIAE AB (07/22/2025 2:37 PM CDT) M. PNEUMONIAE AB IGG 1.26(H) <=0.90 07/26/2025 7:36 PM CDT [facility] Comment: Reference Range: <=0.90 Negative 0.91-1.09 Equivocal >=1.10 Positive A positive IgG result indicates that the patient has antibody to Mycoplasma. It does not differentiate between an active or past infection. The clinical diagnosis must be interpreted in conjunction with the clinical signs and symptoms of the patient. M. PNEUMONIAE AB IGM 165 <770 U/mL 07/26/2025 7:36 PM CDT [facility]LAKE Comment: Reference Range: <770 U/ml Negative 770-950 U/mL Low positive >950 U/mL Positive A positive IgM antibody result is consistent with recent infection. However, a negative result does not necessarily rule out recent infection as some individuals may not mount another IgM response, if previously infected. A positive IgM antibody result with or without a positive IgG antibody result, is consistent with recent infection. However, a negative result does not necessarily rule out recent infection as some individuals may not mount another IgM response, if previously infected. A positive IgG antibody result in the absence of a positive IgM antibody result, indicates that the patient has antibody to Mycoplasma. It does not differentiate between an active or past infection. The clinical diagnosis must be interpreted in conjunction with the clinical signs and symptoms of the patient. Test Performed by Teja Kaufman, [facility], [address] [place], [place] Heladio Chiu M.D., Ph.D., Director of Laboratories , [place] [id number] 07/22/2025 2:37 PM CDT Ana GARCIA LABORAT[facility] Final Result [facility] [address] [place] [address], [place] [phone] * HEPATITIS B POST-VACCINE ANTIBODY (07/22/2025 2:37 PM CDT) Pathologist [facility] HEP B SURFACE AB 503.60 mIU/mL 07/22/2025 3:25 PM CDT [facility] Comment: REFERENCE RANGE >=12.00 PATIENT DOES HAVE IMMUNITY TO HEPATITIS B VIRUS 07/22/2025 2:37 PM CDT Eduarda Alejandre MD LABORATORY Final Result [facility] [address] [place] [address], [place] [phone] * HEPATITIS B SURFACE AG, EIA (07/22/2025 2:37 PM CDT) [facility] HEPATITIS B SURFACE AG NON-REACTI VE NON-REACTI VE 07/22/2025 3:33 PM CDT [facility] 07/22/2025 2:37 PM CDT Eduarda Alejandre MD LABORATORY Final Result Performing Organization Address City/[facility]/ZIP Co de Phone Number [facility] [address] [place] [address], [place] [phone] * (ABNORMAL) TROPONIN, QUANT (07/22/2025 1:38 PM CDT) [facility] TROPONIN I HIGH SENSITIVITY 56(H) <54 ng/L 07/22/2025 2:09 PM CDT [facility] Comment: HIGH DOSES OF BIOTIN, TROPONIN-SPECIFIC AUTOANTIBODIES, AND ANTIBODY THERAPY CONTAINING HAMA MAY INTERFERE WITH THIS TEST RESULT. CORRELATION TO CLINICAL HISTORY AND PRESENTATION RECOMMENDED. 07/22/2025 1:38 PM CDT Heather Guevara MD LABORATORY Final Result Performing Organization Address City/[facility]/ZIP Co de Phone Number [facility] [address] [place] [address], [place] [phone] * (ABNORMAL) LACTIC ACID W REFLEX (SEPSIS) (07/22/2025 1:38 PM CDT) LACTIC ACID VENOUS 2.8(H) 0.4 - 2.0 MMOL/L 07/22/2025 2:35 PM CDT [facility] Comment: Critical Result(s) Called at: 14:34:07 on 07/22/2025 by: CHRIS ALVAREZ to and read back by:NILTON NUNEZ 07/22/2025 1:38 PM CDT Heather Guevara MD LABORATORY Final Result Performing Organization Address [facility] Co de Phone Number [facility] [address] [place] [address], [place] [phone] * CT HEAD WO CON (07/22/2025 12:27 PM CDT) Anatomical Region Laterality Modality Head Computed Tomogra phy 07/22/2025 12:5 2 PM CDT Impressions 07/22/2025 1:01 PM CDT IMPRESSION: 1. Motion degraded examination despite repeated imaging, limiting the sensitivity of this exam. 2. No definite CT findings of acute territorial infarction, within limitations of motion. 3. Senescent changes of global volume loss and chronic microangiopathy. 4. Diffuse permeative appearance of the calvarium. This is nonspecific but given the history of ESRD with hemodialysis this likely is secondary to renal osteodystrophy. 5. Diffuse opacification of the left maxillary sinus. Bilateral mastoid air cell effusion. Ordered By: HEATHER GUEVARA Interpreted By: Irvin Hernandez MD, 07/22/2025 12:52 PM Narrative 07/22/2025 1:01 PM [address] [address] EXAM: CT HEAD WO CON DATE: 07/22/2025 12:27 PM INDICATION: Altered mental status. TECHNIQUE: Transverse images through the head were obtained without intravenous contrast. A radiation dose lowering technique was used for this procedure, which may include, but is not limited to, dose reduction technique, automated exposure control, the use of iterative reconstruction, ALARA (As Low As Reasonably Achievable) techniques, and Image Gently techniques. COMPARISON: CT head 01/07/2024 FINDINGS: Motion degraded examination despite repeated imaging, limiting the sensitivity of this exam. There is no evidence of acute intracranial hemorrhage. No evidence of abnormal intra or extra axial fluid collections. The ventricles in extra-axial spaces are mildly prominent compatible with global volume loss and similar to prior. No evidence of mass, mass effect, or midline shift. Diffuse low-density within the white matter again consistent with chronic microangiopathy, similar to prior. No definite CT findings of acute territorial infarction, within limitations of motion. No calvarial fracture is seen. Diffuse permeative appearance of the calvarium. Diffuse opacification of the left maxillary sinus. Bilateral mastoid air cell effusion. The globes and orbits are symmetric and grossly unremarkable. Procedure Note Irvin Hernandez MD - 07/22/[address] [address] EXAM: CT HEAD WO CON DATE: 07/22/2025 12:27 PM INDICATION: Altered mental status. TECHNIQUE: Transverse images through the head were obtained without intravenouscontrast. A radiation dose lowering technique was used for this procedure,which may include, but is not limited to, dose reduction technique,automated exposure control, the use of iterative reconstruction, ALARA (AsLow As Reasonably Achievable) techniques, and Image Gently techniques. COMPARISON: CT head 01/07/2024 FINDINGS: Motion degraded examination despite repeated imaging, limiting thesensitivity of this exam. There is no evidence of acute intracranial hemorrhage. No evidence ofabnormal intra or extra axial fluid collections. The ventricles inextra-axial spaces are mildly prominent compatible with global volume lossand similar to prior. No evidence of mass, mass effect, or midline shift.Diffuse low-density within the white matter again consistent with chronicmicroangiopathy, similar to prior. No definite CT findings of acuteterritorial infarction, within limitations of motion. No calvarialfracture is seen. Diffuse permeative appearance of the calvarium. Diffuseopacification of the left maxillary sinus. Bilateral mastoid air celleffusion. The globes and orbits are symmetric and grossly unremarkable. IMPRESSION: 1. Motion degraded examination despite repeated imaging, limiting thesensitivity of this exam. 2. No definite CT findings of acute territorial infarction, withinlimitations of motion. 3. Senescent changes of global volume loss and chronic microangiopathy. 4. Diffuse permeative appearance of the calvarium. This is nonspecificbut given the history of ESRD with hemodialysis this likely is secondaryto renal osteodystrophy. 5. Diffuse opacification of the left maxillary sinus. Bilateral mastoidair cell effusion. Ordered By: HEATHER GUEVARA Interpreted By: Irvin Hernandez MD, 07/22/2025 12:52 PM Heather Guevara MD CT Final Result * XR CHEST PORTABLE (07/22/2025 12:02 PM CDT) Anatomical Region Laterality Modality Chest Radiographic Carmen ging 07/22/2025 12:0 8 PM CDT Impressions 07/22/2025 12:20 PM CDT IMPRESSION: 1. Cardiomegaly. No acute pulmonary vascular congestion. Tunneled right chest dialysis catheter is new since 01/11/2024. 2. No apparent new pulmonary infiltrate or consolidation. 3. Partially calcified 2.8 cm lesion projecting in the right upper chest to right lower neck is not evident on 2023 radiographs. Could be further evaluated on nonemergent elective CT if clinically indicated. Ordered By: HEATHER GUEVARA Interpreted By: Aron Aguilar, 07/22/2025 12:08 PM Narrative 07/22/2025 12:[address] [address] IMAGING STUDIES: XR CHEST PORTABLE DATE: 07/22/2025 11:40 AM HISTORY: new o2 requirement 72-year-old female. Altered mental status during dialysis. Reported temperature of 100.3 prior to dialysis treatment 1 (did not receive dialysis today). Patient's daughter reports the patient was released from [facility] on 07/01/2025 after treatment for urinary tract infection. COMPARISON: Chest portable 01/11/2024 and 01/07/2024. DISCUSSION: Portable AP upright view of the chest. Rightward rotated. 2.8 x 2.6 cm partially calcified lesion projecting in the right upper chest and right lower neck/supraclavicular region which is not evident on the prior studies. Differential diagnosis would primarily include calcified enlarged lymph node or potential progression of vascular calcification. Right chest tunneled dialysis catheter with tip in the inferior right atrium is new since 01/11/2024. Stable cardiomegaly. No acute pulmonary vascular congestion. Aortic atherosclerotic calcifications. Low lung volumes but similar to prior studies. Chronic bilateral lung parenchymal scarring and pleural scarring. No appreciable significant pulmonary infiltrate or consolidation. No apparent pleural effusion or pneumothorax. Degenerative changes spine and shoulders. Procedure Note Aron Aguilar MD - 07/22/[address] [address] IMAGING STUDIES: XR CHEST PORTABLEDATE: 07/22/2025 11:40 AM HISTORY: new o2 requirement 72-year-old female. Altered mental statusduring dialysis. Reported temperature of 100.3 prior to dialysis treatment1 (did not receive dialysis today). Patient's daughter reports the [facility]was [facility] after treatment forurinary tract infection. COMPARISON: Chest portable 01/11/2024 and 01/07/2024. DISCUSSION: Portable AP upright view of the chest. Rightward rotated. 2.8 x 2.6 cm partially calcified lesion projecting in the right upperchest and right lower neck/supraclavicular region which is not evident onthe prior studies. Differential diagnosis would primarily includecalcified enlarged lymph node or potential progression of vascularcalcification. Right chest tunneled dialysis catheter with tip in the inferior rightatrium is new since 01/11/2024. Stable cardiomegaly. No acute pulmonaryvascular congestion. Aortic atherosclerotic calcifications. Low lung volumes but similar to prior studies. Chronic bilateral lungparenchymal scarring and pleural scarring. No appreciable significantpulmonary infiltrate or consolidation. No apparent pleural effusion orpneumothorax. Degenerative changes spine and shoulders. IMPRESSION: 1. Cardiomegaly. No acute pulmonary vascular congestion. Tunneled rightchest dialysis catheter is new since 01/11/2024. 2. No apparent new pulmonary infiltrate or consolidation. 3. Partially calcified 2.8 cm lesion projecting in the right upper chestto right lower neck is not evident on 2023 radiographs. Could be furtherevaluated on nonemergent elective CT if clinically indicated. 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1945 Requested By: HEATHER GUEVARA Order Number: [id number] Reading MD: German Stevens Measurements Intervals Point [place] Rate: 137 P: 0 UT: 0 QRS: -18 QRSD: 111 T: 68 QT: 295 QTc: 446 Interpretive Statements ATRIAL FIBRILLATION WITH RAPID VENTRICULAR RESPONSE POSSIBLE LATERAL MYOCARDIAL INFARCTION , OF INDETERMINATE AGE [30 ms Q WAVE IN I/aVL/V5/V6] Compared to ECG 07/17/2024 13:56:11 No significant changes Procedure Note German Stevens MD - 07/22/[address] Test Date: 2025-07-22 Pat Name: ZANDER ADLER Department: 41 Room: [facility] 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: [id number] : 1945 Requested By: HEATHER GUEVARA Order Number: [id number] Reading MD: German Stevens Measurements Intervals Point [place] Rate: 137 P: 0 UT: 0 QRS: -18 QRSD: 111 T: 68 QT: 295 QTc: 446 Interpretive Statements ATRIAL FIBRILLATION WITH RAPID VENTRICULAR RESPONSE POSSIBLE LATERAL MYOCARDIAL INFARCTION , OF INDETERMINATE AGE [30 ms QWAVE IN I/aVL/V5/V6] Compared to ECG 07/17/2024 13:56:11 No significant changes us Heather Guevara MD ECG ORDERABLES Final Result [facility] ([facility] * (ABNORMAL) LACTIC ACID W REFLEX (SEPSIS) (07/22/2025 11:37 AM CDT) LACTIC ACID VENOUS 3.4(H) 0.4 - 2.0 MMOL/L 07/22/2025 12:16 PM CDT [facility] Comment: Critical Result(s) Called at: 12:15:29 on 07/22/2025 by: CHRIS ALVAREZ to and read back by:MONE ANDREWS 07/22/2025 11:3 7 AM CDT us Heather Guevara MD LABORATORY Final Result [facility] [address] [place] [address], [place] [phone] * MAGNESIUM (07/22/2025 11:27 AM CDT) [facility] MAGNESIUM 2.0 1.8 - 2.4 MG/DL 07/22/2025 12:50 PM CDT [facility] 07/22/2025 11:2 7 AM CDT Heather Guevara MD LABORATORY Final Result Performing Organization Address [facility] Co de Phone Number [facility] [address] [place] [address], [place] [phone] * (ABNORMAL) TROPONIN, QUANT (07/22/2025 11:27 AM CDT) [facility] TROPONIN I HIGH SENSITIVITY 62(H) <54 ng/L 07/22/2025 12:50 PM CDT [facility] Comment: HIGH DOSES OF BIOTIN, TROPONIN-SPECIFIC AUTOANTIBODIES, AND ANTIBODY THERAPY CONTAINING HAMA MAY INTERFERE WITH THIS TEST RESULT. CORRELATION TO CLINICAL HISTORY AND PRESENTATION RECOMMENDED. 07/22/2025 11:2 7 AM CDT us Heather Guevara MD LABORATORY Final Result Performing Organization Address City/[facility]/ZIP Co de Phone Number [facility] [address] [place] [address], [place] [phone] * CULTURE, BACTERIA, BLOOD (07/22/2025 11:27 AM CDT) SPEC DESCRIPTION BLOOD 07/22/2025 11:27 AM CDT [facility] SPECIAL REQUESTS NO SPECIAL REQUEST 07/22/2025 11:27 AM CDT [facility] CULTURE RESULT NO GROWTH 5 DAYS 07/27/2025 12:00 PM CDT [facility] BLOOD SPECIMEN OBTAINED FOR BLOOD CULTURE / Unknown 07/22/2025 11:27 AM CDT 07/22/2025 11:44 AM CDT Heather Guevara MD MICROBIOLOGY - GENERAL ORDERA BLES Final Result [facility] [address] [place] [address], [place] [phone] * CULTURE, BACTERIA, BLOOD (07/22/2025 11:27 AM CDT) SPEC DESCRIPTION BLOOD 07/22/2025 11:27 AM CDT [facility] SPECIAL REQUESTS NO SPECIAL REQUEST 07/22/2025 11:27 AM CDT [facility] CULTURE RESULT NO GROWTH 5 DAYS 07/27/2025 11:58 AM CDT [facility] BLOOD SPECIMEN OBTAINED FOR BLOOD CULTURE / Unknown 07/22/2025 11:27 AM CDT 07/22/2025 11:44 AM CDT us Heather Guevara MD MICROBIOLOGY - GENERAL ORDERA BLES Final Result [facility] [address] [place] [address], [place] [phone] * (ABNORMAL) COMPREHENSIVE METABOLIC PANEL (07/22/2025 11:27 AM CDT) GLUCOSE 144(H) 70 - 99 MG/DL 07/22/2025 12:16 PM CDT [facility] BUN 54(H) 7 - 18 MG/DL 07/22/2025 12:16 PM CDT [facility] CREATININE S/P/B 5.43(HH) 0.55 - 1.02 MG/DL 07/22/2025 12:16 PM CDT [facility] Comment: Critical Result(s) Called at: 12:15:13 on 07/22/2025 by: CHRIS ALVAREZ to and read back by:MONE ANDREWS SODIUM S/P/B 134(L) 136 - 145 MMOL/L 07/22/2025 12:16 PM CDT [facility] POTASSIUM S/P/B 6.1(H) 3.5 - 5.1 MMOL/L 07/22/2025 12:16 PM CDT [facility] CHLORIDE S/P/B 99 97 - 115 MMOL/L 07/22/2025 12:16 PM CDT [facility] CO2 25.2 21 - 32 MMOL/L 07/22/2025 12:16 PM CDT [facility] CALCIUM S/P/B 10.3(H) 8.5 - 10.1 MG/DL 07/22/2025 12:16 PM CDT [facility] BILIRUBIN TOTAL S/P/B 0.7 0.2 - 1.2 MG/DL 07/22/2025 12:16 PM CDT [facility] Comment: THIS ASSAY IS NOT RECOMMENDED FOR PATIENTS UNDERGOING TREATMENT WITH ELTROMBOPAG DUE TO THE POTENTIAL FOR FALSELY ELEVATED RESULTS. TOTAL PROTEIN S/P/B 6.9 6.4 - 8.2 G/DL 07/22/2025 12:16 PM CDT [facility] ALBUMIN S/P/B 2.4(L) 3.4 - 5.0 G/DL 07/22/2025 12:16 PM CDT [facility] AST 130(H) 15 - 37 U/L 07/22/2025 12:16 PM CDT [facility] ALT 69(H) 14 - 55 U/L 07/22/2025 12:16 PM CDT [facility] ALKALINE PHOSPHATASE S/P/B 251(H) 50 - 136 U/L 07/22/2025 12:16 PM CDT [facility] ANION GAP 9.8 2 - 10 MMOL/L 07/22/2025 12:16 PM CDT [facility] BUN CREATININE RATIO 9.9 6 - 26 07/22/2025 12:16 PM CDT [facility] A/G RATIO 0.5(L) 1.0 - 2.0 RATIO 07/22/2025 12:16 PM CDT [facility] GFR ESTIMATE 8(L) >90 ML/MIN/1.7 3 M2 07/22/2025 12:16 PM CDT [facility] Comment: NOTE: eGFR is not calculated for patients <18 years of age or gender unknown. This is an estimated GFR calculation using the new CKD EPI creatinine equation without race and so does not require a correction factor for race. This estimated GFR should not be used for calculating drug doses. 07/22/2025 11:2 7 AM CDT us Heather Guevara MD LABORATORY Final Result [facility] [address] [place] [address], [place] [phone] * (ABNORMAL) CBC W/DIFF AUTOMATED (07/22/2025 11:27 AM CDT) WBC 9.33 4.5 - 11.0 x10'3/uL 07/22/2025 11:49 AM CDT [facility] RBC 3.23(L) 4.20 - 5.40 x10'6/uL 07/22/2025 11:49 AM CDT [facility] HGB 9.5(L) 12.0 - 16.0 G/DL 07/22/2025 11:49 AM CDT [facility] HCT 32.0(L) 38.0 - 48.0 % 07/22/2025 11:49 AM CDT [facility] MCV 99.1(H) 81.0 - 99.0 FL 07/22/2025 11:49 AM CDT [facility] MCH 29.4 27.0 - 31.0 PG 07/22/2025 11:49 AM CDT [facility] MCHC 29.7(L) 32.0 - 36.0 G/DL 07/22/2025 11:49 AM T [facility] RDW 15.8(H) 11.5 - 14.5 % 07/22/2025 11:49 AM CDT [facility] PLT 277 130 - 400 x10'3/uL 07/22/2025 11:49 AM CDT [facility] MPV 10.0 9.3 - 12.2 FL 07/22/2025 11:49 AM T [facility] DIFFERENTIAL TYPE AUTOMATED DIFFERENTIAL 07/22/2025 11:49 AM CDT [facility] NEUTROPHILS % 85.2 % 07/22/2025 11:49 AM CDT [facility] LYMPHOCYTES % 6.9 % 07/22/2025 11:49 AM T [facility] MONOCYTES % 6.2 % 07/22/2025 11:49 AM CDT [facility] EOSINOPHILS 0.5 % 07/22/2025 11:49 AM CDT [facility] BASOPHILS 0.4 % 07/22/2025 11:49 AM CDT [facility] IMMATURE GRANS % 0.8 % 07/22/20 11:49 AM CDT [facility] ABS. NEUTROPHILS 7.95(H) 1.80 - 7.70 x10'3/uL 07/22/2025 11:49 AM CDT [facility] ABS. LYMPHOCYTES 0.64(L) 1.00 - 4.80 x10'3/uL 07/22/2025 11:49 AM CDT [facility] ABS. MONOCYTES 0.58 0.24 - 0.86 x10'3/uL 07/22/2025 11:49 AM CDT [facility] ABS. EOSINOPHILS 0.05 0.04 - 0.36 x10'3/uL 07/22/2025 11:49 AM CDT [facility] ABS. BASOPHILS 0.04 0.01 - 0.08 x10'3/uL 07/22/2025 11:49 AM CDT [facility] ABS. IMMATURE GRANULOCYTES 0.07 0.00 - 0.49 x10'3/uL 07/22/2025 11:49 AM CDT [facility] 07/22/2025 11:2 7 AM CDT us Heather Guevara MD LABORATORY Final Result [facility] [address] [place] [address], [place] [phone] documented in this encounter Visit Diagnoses Diagnosis Severe sepsis ([facility])- Primary ESRD (end stage renal disease) on dialysis ([facility]) End stage renal disease Hyperkalemia Hyperpotassemia Atrial fibrillation with rapid ventricular response ([facility]) Atrial fibrillation Lactic acidosis Acidosis Sepsis, due to unspecified organism, unspecified whether acute organ dysfunction present ([facility]) Hypotension, unspecified hypotension type Anemia in chronic kidney disease, on chronic dialysis ([facility]) Severe sepsis due to Streptococcus pneumoniae with acute organ dysfunction ([facility]) Acute respiratory failure with hypoxemia ([facility]) 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, with long-term current use of insulin ([facility]) documented in this encounter Admitting Diagnoses Diagnosis Severe sepsis due to Streptococcus pneumoniae with acute organ dysfunction ([facility]) documented in this encounter Administered Medications Inactive Administered Medications - up to 3 most recent administrations Medication Order MAR Action Action Date Dose Rate Site acetaminophen (TYLENOL) suppository 650 mg 650 mg, Rectal, Every 4 hours PRN, Fever, Temperature greater than 38.5 C (101.5 F), Starting on Tue07/22/25 at 1357, Until 07/28/25 at 1435, Maximum dose of acetaminophen is 4000 mg from all sources in 24 hours. acetaminophen (TYLENOL) tablet 650 mg 650 mg, Oral, Every 4 hours PRN, Fever, Temperature greater than 38.5 C (101.5 F), Starting on Tue07/22/25 at 1357, Until 07/28/25 at 1435, Maximum dose of acetaminophen is 4000 mg from all sources in 24 hours. Given 07/25/2025 6:59 PM CDT 650 mg Given 07/25/2025 10:41 AM CDT 650 mg Given 07/24/2025 4:41 PM CDT 650 mg apixaban (ELIQUIS) tablet 5 mg 5 mg, Oral, 2 times daily, Indications: Atrial Fibrillation, First dose on Tue07/23/25 at 0900, Until DiscontinuedIndications:Atrial Fibrillation Given 07/28/2025 9:15 AM CDT 5 mg Given 07/27/2025 9:07 PM CDT 5 mg Given 07/27/2025 8:44 AM CDT 5 mg ARIPiprazole (ABILIFY) tablet 3 mg 3 mg, Oral, Nightly, First dose on Tue07/23/25 at 2100, Until Discontinued Given 07/27/2025 9:07 PM CDT 3 mg Given 07/26/2025 9:06 PM CDT 3 mg Given 07/25/2025 8:27 PM CDT 3 mg B tmbmkco-P-qbdua acid 0.8 mg (DIALYVITE/NEPHRO-RANDALL) tablet 1 tablet 1 tablet, Oral, Daily, First dose on Tue07/25/25 at 1245, Until DiscontinuedIndications:ESRD (end stage renal disease) on dialysis ([facility]) Given 07/28/2025 9:15 AM CDT 1 tablet Given 07/27/2025 8:44 AM CDT 1 tablet Given 07/26/2025 2:04 PM CDT 1 tablet busPIRone (BUSPAR) tablet 5 mg 5 mg, Oral, 3 times daily, First dose on Tue07/23/25 at 0900, Until Discontinued Given 07/28/2025 9:15 AM CDT 5 mg Given 07/27/2025 9:07 PM CDT 5 mg Given 07/27/2025 8:44 AM CDT 5 mg cefdinir (OMNICEF) capsule 300 mg 300 mg, Oral, Daily, 2 doses, First dose on Tue07/28/25 at 1000, Last dose on Tue07/29/25 at 0900 Given 07/28/2025 10:57 AM CDT 300 mg ceFEPIme (MAXIPIME) 1 g in sodium chloride 0.9 % 50 mL IVPB 1 g, Intravenous, Administer over 30 Minutes, Every 12 hours, 14 doses, First dose on Tue07/22/25 at 1500, Last dose on Tue07/29/25 at 0300 New Bag 07/22/2025 4:24 PM CDT 1 g 160 mL/hr ceFEPIme (MAXIPIME) 1 g in sodium chloride 0.9 % 50 mL IVPB 1 g, Intravenous, Administer over 240 Minutes, Every 24 hours, 10 doses, First dose (after last modification) on Tue07/23/25 at 1800, Last dose on Tue08/01/25 at 1800, Give after dialysis on dialysis days New Bag 07/27/2025 6:50 PM CDT 1 g 20 mL/hr New Bag 07/26/2025 6:14 PM CDT 1 g 20 mL/hr New Bag 07/25/2025 6:33 PM CDT 1 g 20 mL/hr docusate sodium (COLACE) capsule 200 mg 200 mg, Oral, Nightly, First dose on 07/27/25 at 2100, Until Discontinued Given 07/27/2025 9:07 PM CDT 200 mg doxycycline hyclate (VIBRAMYCIN) capsule 100 mg 100 mg, Oral, Every 12 hours scheduled (2 times per day), 4 doses, First dose on Tue07/28/25 at 1000, Last dose on Tue07/29/25 at 2100 Given 07/28/2025 10:57 AM CDT 100 mg epoetin saira-epbx (RETACRIT) injection 10,000 Units 10,000 Units, Intravenous, Three times weekly (Once per day on Tuesday), Indications: End Stage Renal Disease on Hemodialysis, First dose (after last reorder) on Tue07/24/25 at 1045, Until DiscontinuedIndications:End Stage Renal Disease on Hemodialysis Given 07/26/2025 11:06 AM CDT 10,000 Units Given 07/24/2025 10:27 AM CDT 10,000 Units ferrous sulfate EC tablet 324 mg 324 mg, Oral, Three times weekly (Once per day on Tuesday), First dose on Tue07/24/25 at 0900, Until Discontinued, Give 2 hours before or 4 hours after antacids. Takes on Tue, Tue, Tue Do not break, chew, or crush. Given 07/26/2025 2:04 PM CDT 324 mg Given 07/24/2025 8:03 AM CDT 324 mg fluconazole (DIFLUCAN) tablet 150 mg 150 mg, Oral, Every 7 days, First dose on Tue07/27/25 at 1530, Until Discontinued, Takes on saturdays HAZARDOUS MEDICATION: wear single chemotherapy approved gloves. Do not open or split. If crushing, use approved closed-system crushing device for hazardous medications. Given 07/27/2025 6:50 PM CDT 150 mg furosemide (LASIX) injection 100 mg 100 mg, Intravenous, Once, 1 dose, On Tue07/25/25 at 1245, Administer IV push 20-40mg/min.Indications:ESRD (end stage renal disease) on dialysis ([facility]) Given 07/25/2025 1:37 PM CDT 100 mg furosemide (LASIX) tablet 120 mg 120 mg, Oral, User specified (2 times per day on Tuesday), First dose on Tue07/27/25 at 0900, Until DiscontinuedIndications:ESRD (end stage renal disease) on dialysis ([facility]) Given 07/27/2025 8:51 AM CDT 120 mg HYDROcodone-acetaminophen (NORCO) 5-325 MG tablet 1 tablet 1 tablet, Oral, Every 6 hours PRN, Moderate pain (Scale 4 - 7), Starting on Tue07/22/25 at 1421, Until Tue07/28/25 at 1435, Maximum dose of acetaminophen is 4000 mg from all sources in 24 hours. Given 07/27/2025 2:45 PM CDT 1 tablet HYDROmorphone (DILAUDID) injection 0.2 mg 0.2 mg, Intravenous, Every 3 hours PRN, Severe pain (Scale 8 - 10), Starting on Tue07/22/25 at 1420, Until Tue07/28/25 at 1435, Administer slowly over at least 2-3 minutes. Given 07/22/2025 3:02 PM CDT 0.2 mg insulin glargine (LANTUS) injection 10 Units 10 Units, Subcutaneous, Every morning, First dose on Tue07/28/25 at 0700, Until Discontinued Given 07/28/2025 6:30 AM CDT 10 Units Left Lower Abdomen insulin lispro (HUMALOG/ADMELOG) injection 0-16 Units 0-16 Units, Subcutaneous, 3 times daily before meals, First dose on Tue07/23/25 at 1615, Until Discontinued, Blood Glucose (USUAL Dosing): [Less than 70: Initiate Hypoglycemia Standing Orders] [71-140: 0 units] [141-180: 4 units] [181-220: 6 units] [221-260: 8 units] [261-300: 10 units] [301-350: 12 units] [351-400: 14 units] [Greater than 400: 16 units and Call Physician] Given 07/28/2025 12:18 PM CDT 6 Units Left Arm Given 07/27/2025 12:07 PM CDT 4 Units R ight Arm Given 07/27/2025 7:41 AM CDT 4 Units Le ft Arm insulin lispro (HUMALOG/ADMELOG) injection 0-8 Units 0-8 Units, Subcutaneous, Nightly at bedtime, First dose on Tue07/23/25 at 2100, Until Discontinued, Blood Glucose (USUAL Dosing): [Less than 70: Initiate Hypoglycemia Standing Orders] [71-180: 0 units] [181-220: 3 units] [221-260: 4 units] [261-300: 5 units] [301-350: 6 units] [351-400: 7 units] [Greater than 400: 8 units and Call Physician] Given 07/27/2025 9:04 PM CDT 3 Units Left Lower Abdomen Given 07/26/2025 9:07 PM CDT 4 Units Le ft Lower Abdomen Given 07/25/2025 8:31 PM CDT 4 Units Le ft Lower Abdomen iopamidol (ISOVUE-370) 76 % injection 100 mL 100 mL, Intravenous, IMG once as needed, Contrast, 1 dose, Starting on Tue07/22/25 at 1522, Until Tue07/22/25 at 1522 Given 07/22/2025 3:22 PM CDT 100 mLs methylphenidate (RITALIN) tablet 10 mg 10 mg, Oral, 2 times daily, First dose on Tue07/23/25 at 1400, Until Discontinued, TAKE WITH MEALS BREAKFAST AND LUNCH Given 07/28/2025 9:15 AM CDT 10 mg Given 07/27/2025 2:45 PM CDT 10 mg Given 07/27/2025 8:43 AM CDT 10 mg metoprolol tartrate (LOPRESSOR) tablet 12.5 mg 12.5 mg, Oral, 2 times daily, First dose (after last modification) on Tue07/23/25 at 2145, Until Discontinued Given 07/27/2025 8:43 AM CDT 12.5 mg Given 07/26/2025 9:06 PM CDT 12.5 mg Given 07/26/2025 2:04 PM CDT 12.5 mg metoprolol tartrate (LOPRESSOR) tablet 25 mg 25 mg, Oral, 2 times daily, First dose on Tue07/23/25 at 0900, Until Discontinued Given 07/23/2025 9:00 AM CDT 25 mg metoprolol tartrate (LOPRESSOR) tablet 25 mg 25 mg, Oral, 2 times daily, First dose (after last modification) on Tue07/27/25 at 2100, Until Discontinued Given 07/28/2025 9:15 AM CDT 25 mg midodrine (PROAMATINE) tablet 10 mg 10 mg, Oral, User specified (2 times per day on Tuesday), First dose (after last modification) on Tue07/26/25 at 0800, Until Discontinued, On dialysis days; give am dose before ahd and pm dose during HDIndications:Hypotension, unspecified hypotension type Given 07/26/2025 8:53 AM CDT 10 mg midodrine (PROAMATINE) tablet 5 mg 5 mg, Oral, User specified (2 times per day on Tuesday), First dose on Tue07/24/25 at 0800, Until Discontinued, On dialysis days; give am dose before ahd and pm dose during HDIndications:Hypotension, unspecified hypotension type Given 07/24/2025 1:39 PM CDT 5 mg Given 07/24/2025 7:58 AM CDT 5 mg naLOXone (NARCAN) injection 0.4 mg 0.4 mg, Intravenous, As needed, Opioid reversal, Starting on Tue07/22/25 at 1421, Until Tue07/28/25 at 1435, IM administration: Anterolateral aspect of thigh nystatin (MYCOSTATIN) cream Topical, 2 times daily, First dose on Tue07/27/25 at 2100, Until Discontinued Given 07/28/2025 9:20 AM CDT Given 07/27/2025 9:08 PM CDT ondansetron (ZOFRAN) injection 4 mg 4 mg, Intravenous, Every 8 hours PRN, Nausea, Vomiting, Starting on Tue07/22/25 at 1421, Until Tue07/28/25 at 1435, IV push over 2-5 minutes. perflutren lipid microsphere (DEFINITY) injection 2 mL 2 mL, Intravenous, IMG once as needed, Contrast, 1 dose, Starting on Tue07/23/25 at 1434, Until Tue07/23/25 at 1410, Administer over 30-60 seconds. Follow with 10 mL saline flush. Given 07/23/2025 2:10 PM CDT 2 mLs polyethylene glycol (GLYCOLAX) packet 17 g 17 g, Oral, Daily as needed, Constipation, Starting on Tue07/22/25 at 1421, Until Tue07/28/25 at 1435, If both senna and polyethylene glycol are ordered, use 1st; if no response by next dosing interval, go to next option. Given 07/28/2025 9:51 AM CDT 17 g sertraline (ZOLOFT) tablet 50 mg 50 mg, Oral, Daily, First dose on Tue07/23/25 at 0900, Until Discontinued Given 07/28/2025 9:15 AM CDT 50 mg Given 07/27/2025 8:44 AM CDT 50 mg Given 07/26/2025 2:04 PM CDT 50 mg sodium chloride 0.9% bolus infusion 500 mL 500 mL, Intravenous, Administer over 15 Minutes, Once, 1 dose, On Tue07/22/25 at 1145 New Bag 07/22/2025 11:56 AM CDT 500 mLs 2000 mL/hr sodium zirconium cyclosilicate (LOKELMA) packet 5 g 5 g, Oral, Once, 1 dose, On Tue07/22/25 at 1330, Administer other oral medications at least 2 hours before or 2 hours after dose. Mix packet contents with approximately 45 mL or more of water. Stir well. Administer immediately. If powder remains in glass, add water and administer again until no powder remains. Given 07/22/2025 1:34 PM CDT 5 g Tenapanor HCl (CKD) TABS 1 tablet 1 tablet, Oral, 2 times daily, First dose on Tue07/23/25 at 2100, Until Discontinued, PATIENT'S OWN MEDICATION STORED IN PATIENT SPECIFIC PYXIS Given 07/24/2025 8:03 AM CDT 1 tablet Given 07/23/2025 9:19 PM CDT 1 tablet Tenapanor HCl (CKD) TABS 1 tablet 1 tablet, Oral, 2 times daily, First dose (after last modification) on Tue07/24/25 at 1715, Until Discontinued, PATIENT'S OWN MEDICATION STORED IN PATIENT SPECIFIC PYXIS Given 07/28/2025 9:19 AM CDT 1 tablet Given 07/27/2025 6:50 PM CDT 1 tablet Given 07/27/2025 8:44 AM CDT 1 tablet vancomycin (VANCOCIN) 1,000 mg in sodium chloride 0.9 % 250 mL IVPB 1,000 mg, Intravenous, at 300 mL/hr, Once, 1 dose, On Tue07/24/25 at 1600, After HD session New Bag 07/24/2025 4:42 PM CDT 1,000 mg 300 mL/hr vancomycin (VANCOCIN) 2,000 mg in sodium chloride 0.9 % 500 mL IVPB 2,000 mg, Intravenous, at 295 mL/hr, Once, 1 dose, On Tue07/22/25 at 1445 New Bag 07/22/2025 4:53 PM CDT 2,000 mg 295 mL/hr vancomycin (VANCOCIN) 750 mg in sodium chloride 0.9 % 250 mL IVPB 750 mg, Intravenous, at 297.5 mL/hr, Once, 1 dose, On Tue07/26/25 at 1500, Give dose after HD New Bag 07/26/2025 2:10 PM CDT 750 mg 297.5 mL/hr vancomycin 750 mg in NS 250 mL IVPB 750 mg, Intravenous, at 250 mL/hr, Once, 1 dose, On Tue07/26/25 at 1600, Give dose after HD New Bag 07/26/2025 4:59 PM CDT 750 mg 250 mL/hr vitamin B-12 (CYANOCOBALAMIN) tablet 1,000 mcg 1,000 mcg, Oral, Nightly, First dose on Tue07/23/25 at 2100, Until Discontinued Given 07/27/2025 9:07 PM CDT 1,000 mcg Given 07/26/2025 9:07 PM CDT 1,000 mcg Given 07/25/2025 8:28 PM CDT 1,000 mcg documented in this encounter Active and Recently Administered Medications Times are shown in CDT. Scheduled Medication Order 07/26/2025 07/27/2025 07/28/2025 alteplase injection 2 mg 2 mg, Intracatheter, Once, 1 dose, On Tue07/26/25 at 1100, RECONSTITUTION (to 1 mg/mL): 1. Aseptically withdraw 2.2 mL of SWFI (Sterile Water for Injection). 2. Inject the 2.2 mL of SWFI into the Cathflo Activase vial. Let the vial stand undisturbed to allow large bubbles to dissipate. 3. Mix by gently swirling until the contents are completely dissolved. DO NOT SHAKE. ADMINISTRATION: 1. Instill the appropriate dose into the occluded catheter. 2. After 30 minutes of DWELL time, assess catheter function by attempting to aspirate blood. If the catheter is functional, go to the last step; if not functional, go to the next step. 3. ASSESS catheter function after a total of 120 minutes of dwell time by attempting to aspirate blood. If the catheter is functional, go to the next step. If catheter is still occluded, a second dose of equal amount may be ordered and instilled. 4. If catheter function has been restored, ASPIRATE 4 to 5 mL of blood in patients >10 kg or 3 mL in patient <10 kg to remove Cathflo and residual clot. Discard aspirate and flush catheter with 0.9% Sodium Chloride., Dialysis 1300 (Canceled Entry - Provider: Automatic Discharge Provider - Comment: Automatically canceled at discontinue of medication order) alteplase injection 2 mg 2 mg, Intracatheter, Once, 1 dose, On Tue07/26/25 at 1100, RECONSTITUTION (to 1 mg/mL): 1. Aseptically withdraw 2.2 mL of SWFI (Sterile Water for Injection). 2. Inject the 2.2 mL of SWFI into the Cathflo Activase vial. Let the vial stand undisturbed to allow large bubbles to dissipate. 3. Mix by gently swirling until the contents are completely dissolved. DO NOT SHAKE. ADMINISTRATION: 1. Instill the appropriate dose into the occluded catheter. 2. After 30 minutes of DWELL time, assess catheter function by attempting to aspirate blood. If the catheter is functional, go to the last step; if not functional, go to the next step. 3. ASSESS catheter function after a total of 120 minutes of dwell time by attempting to aspirate blood. If the catheter is functional, go to the next step. If catheter is still occluded, a second dose of equal amount may be ordered and instilled. 4. If catheter function has been restored, ASPIRATE 4 to 5 mL of blood in patients >10 kg or 3 mL in patient <10 kg to remove Cathflo and residual clot. Discard aspirate and flush catheter with 0.9% Sodium Chloride., Dialysis 1300 (Canceled Entry - Provider: Automatic Discharge Provider - Comment: Automatically canceled at discontinue of medication order) apixaban (ELIQUIS) tablet 5 mg 5 mg, Oral, 2 times daily, Indications: Atrial Fibrillation, First dose on Tue07/23/25 at 0900, Until Discontinued 1404 (Given - Provider: Nurse Presley Student - Comment: At dialysis)2106 (Given - Provider: Dejuan Quigley RN) 0844 (Given - Provider: Zoe Calloway RN)2106 (Given - Provider: Dejuan Quigley RN) 09 (Given - Provider: Nydia Howard Nurse Student) ARIPiprazole (ABILIFY) tablet 3 mg 3 mg, Oral, Nightly, First dose on Tue07/23/25 at 2100, Until Discontinued 2105 (Given - Provider: Dejuan Quigley RN) 2106 (Given - Provider: Dejuan Quigley RN) B fkzbprb-S-btfho acid 0.8 mg (DIALYVITE/NEPHRO-RANDALL ) tablet 1 tablet 1 tablet, Oral, Daily, First dose on Tue07/25/25 at 1245, Until Discontinued 140 (Given - Provider: Nurse Rob Sherwood - Comment: At dialysis) 08 (Given - Provider: Zoe Calloway RN) 09 (Given - Provider: Nydia Howard Nurse Rob) busPIRone (BUSPAR) tablet 5 mg 5 mg, Oral, 3 times daily, First dose on Tue07/23/25 at 0900, Until Discontinued 140 (Given - Provider: Nurse Rob Sherwood - Comment: At dialysis)1446 (Not Given - Provider: Zoe Calloway RN - Reason: Patient already took)2106 (Given - Provider: Dejuan Quigley RN) 0844 (Given - Provider: Zoe Calloway RN)1841 (Not Given - Provider: Zoe Calloway RN - Reason: Patient not available)2106 (Given - Provider: Dejuan Quigley RN) 0915 (Given - Provider: Nurse Rob Sherwood) cefdinir (OMNICEF) capsule 300 mg 300 mg, Oral, Daily, 2 doses, First dose on Tue07/28/25 at 1000, Last dose on Tue07/29/25 at 0900 1057 (Given - Provider: Nydia Howard Nurse Rob) ceFEPIme (MAXIPIME) 1 g in sodium chloride 0.9 % 50 mL IVPB (CANCELED) 1 g, Intravenous, Administer over 240 Minutes, Every 24 hours, 10 doses, First dose (after last modification) on Tue07/23/25 at 1800, Last dose on Tue08/01/25 at 1800, Give after dialysis on dialysis days 1813 (New Bag - Provider: Zoe Calloway RN)2213 (Infusion Stop Time - Provider: Dejuan Quigley RN) 1849 (New Bag - Provider: Zoe Calloway RN)2249 (Infusion Stop Time - Provider: Dejuan Quigley RN) docusate sodium (COLACE) capsule 200 mg 200 mg, Oral, Nightly, First dose on Tue07/27/25 at 2100, Until Discontinued 2106 (Given - Provider: Dejuan Quigley RN) doxycycline hyclate (VIBRAMYCIN) capsule 100 mg 100 mg, Oral, Every 12 hours scheduled (2 times per day), 4 doses, First dose on Tue07/28/25 at 1000, Last dose on Tue07/29/25 at 2100 1057 (Given - Provider: Nydia Howard, Nurse Student) epoetin saira-epbx (RETACRIT) injection 10,000 Units 10,000 Units, Intravenous, Three times weekly (Once per day on Tuesday), Indications: End Stage Renal Disease on Hemodialysis, First dose (after last reorder) on Tue07/24/25 at 1045, Until Discontinued 1106 (Given - Provider: Brenda Pena RN) ferrous sulfate EC tablet 324 mg 324 mg, Oral, Three times weekly (Once per day on Tuesday), First dose on Tue07/24/25 at 0900, Until Discontinued, Give 2 hours before or 4 hours after antacids. Takes on Tue, Tue, Tue Do not break, chew, or crush. 1404 (Given - Provider: Nydia Howard, Nurse Student - Comment: At dialysis) fluconazole (DIFLUCAN) tablet 150 mg 150 mg, Oral, Every 7 days, First dose on Tue07/27/25 at 1530, Until Discontinued, Takes on saturdays HAZARDOUS MEDICATION: wear single chemotherapy approved gloves. Do not open or split. If crushing, use approved closed-system crushing device for hazardous medications. 1849 (Given - Provider: Zoe Calloway RN - Comment: Patient at dialysis) furosemide (LASIX) tablet 120 mg 120 mg, Oral, User specified (2 times per day on Tuesday), First dose on Tue07/27/25 at 0900, Until Discontinued 0851 (Given - Provider: Zoe Calloway RN)1845 (Not Given - Provider: Zoe Calloway RN - Reason: Provider Order - Comment: See Dr. Alejandre's note in regards to administration of lasix on non HD days. Per lea Conklin to hold at this time) insulin glargine (LANTUS) injection 10 Units 10 Units, Subcutaneous, Every morning, First dose on Tue07/28/25 at 0700, Until Discontinued 0630 (Given - Provider: Dejuan Quigley RN) insulin lispro (HUMALOG/ADMELOG) injection 0-16 Units(Linked Group 1) 0-16 Units, Subcutaneous, 3 times daily before meals, First dose on Tue07/23/25 at 1615, Until Discontinued, Blood Glucose (USUAL Dosing): [Less than 70: Initiate Hypoglycemia Standing Orders] [71-140: 0 units] [141-180: 4 units] [181-220: 6 units] [221-260: 8 units] [261-300: 10 units] [301-350: 12 units] [351-400: 14 units] [Greater than 400: 16 units and Call Physician] 0620 (Not Given - Provider: Dejuan Quigley RN - Reason: Order parameters not met)1305 (Not Given - Provider: Zoe Calloway RN - Reason: Other - Comment: Patient at dialysis)1610 (Not Given - Provider: Zoe Calloway RN - Reason: Order parameters not met) 0741 (Given - Provider: oZe Calloway RN)1207 (Given - Provider: Zoe Calloway RN)1746 (Not Given - Provider: Zoe Calloway RN - Reason: Patient not available) 0622 (Not Given - Provider: Dejuan Quigley RN - Reason: Order parameters not met - Comment: [phone] (Given - Provider: Angeles Hope RN) insulin lispro (HUMALOG/ADMELOG) injection 0-8 Units(Linked Group 1) 0-8 Units, Subcutaneous, Nightly at bedtime, First dose on Tue07/23/25 at 2100, Until Discontinued, Blood Glucose (USUAL Dosing): [Less than 70: Initiate Hypoglycemia Standing Orders] [71-180: 0 units] [181-220: 3 units] [221-260: 4 units] [261-300: 5 units] [301-350: 6 units] [351-400: 7 units] [Greater than 400: 8 units and Call Physician] 2106 (Given - Provider: Dejuan Quigley, RN) 2103 (Given - Provider: Dejuan Quigley, RN) methylphenidate (RITALIN) tablet 10 mg 10 mg, Oral, 2 times daily, First dose on Tue07/23/25 at 1400, Until Discontinued, TAKE WITH MEALS BREAKFAST AND LUNCH 1304 (Not Given - Provider: Zoe Calloway RN - Reason: Other - Comment: Patient to receive another dose)1405 (Given - Provider: Nydia Howard Nurse Student - Comment: At dialysis) 0843 (Given - Provider: Zoe Calloway RN)1445 (Given - Provider: Zoe Calloway, BASSEM) 0915 (Given - Provider: Nydia Howard, Nurse Student)1400 (Canceled Entry - Provider: Automatic Discharge Provider - Comment: Automatically canceled at discontinue of medication order) metoprolol tartrate (LOPRESSOR) tablet 12.5 mg (CANCELED) 12.5 mg, Oral, 2 times daily, First dose (after last modification) on Tue07/23/25 at 2145, Until Discontinued 1404 (Given - Provider: Nydia Howard, Nurse Student - Comment: At dialysis)2106 (Given - Provider: Dejuan Quigley RN) 0843 (Given - Provider: Zoe Calloway, BASSEM) metoprolol tartrate (LOPRESSOR) tablet 25 mg 25 mg, Oral, 2 times daily, First dose (after last modification) on Tue07/27/25 at 2100, Until Discontinued 2102 (Not Given - Provider: Dejuan Quigley RN - Reason: Order parameters not met - Comment: BP 94/78 with MAP of 84Held per provider) 0915 (Given - Provider: Nydia Howard, Nurse Student) midodrine (PROAMATINE) tablet 10 mg 10 mg, Oral, User specified (2 times per day on Tuesday), First dose (after last modification) on Tue07/26/25 at 0800, Until Discontinued, On dialysis days; give am dose before ahd and pm dose during HD 0853 (Given - Provider: Zoe Calloway RN)1300 (Canceled Entry - Provider: Automatic Discharge Provider - Comment: Automatically canceled at discontinue of medication order) nystatin (MYCOSTATIN) cream Topical, 2 times daily, First dose on Tue07/27/25 at 2100, Until Discontinued 2108 (Given - Provider: Dejuan Quigley RN) 0920 (Given - Provider: Nydia Howard, Nurse Student) sertraline (ZOLOFT) tablet 50 mg 50 mg, Oral, Daily, First dose on Tue07/23/25 at 0900, Until Discontinued 1404 (Given - Provider: Nydia Howard, Nurse Student - Comment: At dialysis) 0844 (Given - Provider: Zoe Calloway RN) 0915 (Given - Provider: Nydia Howard, Nurse Student) Tenapanor HCl (CKD) TABS 1 tablet 1 tablet, Oral, 2 times daily, First dose (after last modification) on Tue07/24/25 at 1715, Until Discontinued, PATIENT'S OWN MEDICATION STORED IN PATIENT SPECIFIC PYXIS 1307 (Not Given - Provider: Zoe Calloway RN - Reason: Other - Comment: Patient to receive another dose)1404 (Given - Provider: Nydia Howard, Nurse Student - Comment: At dialysis) 0844 (Given - Provider: Zoe Calloway, BASSEM)1850 (Given - Provider: Zoe Calloway RN - Comment: atient at dialysis) 0919 (Given - Provider: Nydia Howard, Nurse Student) vancomycin (VANCOCIN) 750 mg in sodium chloride 0.9 % 250 mL IVPB (CANCELED) 750 mg, Intravenous, at 297.5 mL/hr, Once, 1 dose, On Tue07/26/25 at 1500, Give dose after HD 1410 (New Bag - Provider: Zoe Calloway RN)1453 (Infusion Stop Time - Provider: Zoe Calloway RN - Comment: medication D/c'd. New order placed. IV access losgt) vancomycin 750 mg in NS 250 mL IVPB (COMPLETED) 750 mg, Intravenous, at 250 mL/hr, Once, 1 dose, On Tue07/26/25 at 1600, Give dose after HD 1659 (New Bag - Provider: Nydia Howard, Nurse Student)1759 (Infusion Stop Time - Provider: Zoe Calloway RN) vitamin B-12 (CYANOCOBALAMIN) tablet 1,000 mcg 1,000 mcg, Oral, Nightly, First dose on Tue07/23/25 at 2100, Until Discontinued 2106 (Given - Provider: Dejuan Quigley RN) 2106 (Given - Provider: Dejuan Quigley RN) PRN Medication Order 07/26/2025 07/27/2025 07/28/2025 acetaminophen (TYLENOL) suppository 650 mg(Linked Group 2) 650 mg, Rectal, Every 4 hours PRN, Fever, Temperature greater than 38.5 C (101.5 F), Starting on Tue07/22/25 at 1357, Until 07/28/25 at 1435, Maximum dose of acetaminophen is 4000 mg from all sources in 24 hours. acetaminophen (TYLENOL) tablet 650 mg(Linked Group 2) 650 mg, Oral, Every 4 hours PRN, Fever, Temperature greater than 38.5 C (101.5 F), Starting on 07/22/25 at 1357, Until 07/28/25 at 1435, Maximum dose of acetaminophen is 4000 mg from all sources in 24 hours. cetirizine (ZyrTEC) tablet 10 mg 10 mg, Oral, DAILY PRN, Allergies, Starting on 07/27/25 at 0901, Until 07/28/25 at 1435 HYDROcodone-acetaminophen (NORCO) 5-325 MG tablet 1 tablet 1 tablet, Oral, Every 6 hours PRN, Moderate pain (Scale 4 - 7), Starting on 07/22/25 at 1421, Until 07/28/25 at 1435, Maximum dose of acetaminophen is 4000 mg from all sources in 24 hours. 1445 (Given - Provider: Zoe Calloway RN) HYDROmorphone (DILAUDID) injection 0.2 mg 0.2 mg, Intravenous, Every 3 hours PRN, Severe pain (Scale 8 - 10), Starting on Tue07/22/25 at 1420, Until Tue07/28/25 at 1435, Administer slowly over at least 2-3 minutes. ipratropium-albuterol (DUONEB) 0.5-2.5 (3) MG/3ML nebulizer solution 3 mL 3 mL, Nebulization, Every 4 hours PRN, Shortness of breath, Starting on Tue07/23/25 at 0812, Until Tue07/28/25 at 1435 naLOXone (NARCAN) injection 0.4 mg 0.4 mg, Intravenous, As needed, Opioid reversal, Starting on Tue07/22/25 at 1421, Until Tue07/28/25 at 1435, IM administration: Anterolateral aspect of thigh ondansetron (ZOFRAN) injection 4 mg 4 mg, Intravenous, Every 8 hours PRN, Nausea, Vomiting, Starting on Tue07/22/25 at 1421, Until Tue07/28/25 at 1435, IV push over 2-5 minutes. polyethylene glycol (GLYCOLAX) packet 17 g 17 g, Oral, Daily as needed, Constipation, Starting on Tue07/22/25 at 1421, Until Tue07/28/25 at 1435, If both senna and polyethylene glycol are ordered, use 1st; if no response by next dosing interval, go to next option. 0951 (Given - Provid er: Nydia Howard, Nurse Student) Linked Groups Order Group 1: insulin lispro (HUMALOG/ADMELOG) injection 0-16 UnitsJump to med 0-16 Units, Subcutaneous, 3 times daily before meals, First dose on Tue07/23/25 at 1615, Until Discontinued, Blood Glucose (USUAL Dosing): [Less than 70: Initiate Hypoglycemia Standing Orders] [71-140: 0 units] [141-180: 4 units] [181-220: 6 units] [221-260: 8 units] [261-300: 10 units] [301-350: 12 units] [351-400: 14 units] [Greater than 400: 16 units and Call Physician] And insulin lispro (HUMALOG/ADMELOG) injection 0-8 UnitsJump to med 0-8 Units, Subcutaneous, Nightly at bedtime, First dose on Tue07/23/25 at 2100, Until Discontinued, Blood Glucose (USUAL Dosing): [Less than 70: Initiate Hypoglycemia Standing Orders] [71-180: 0 units] [181-220: 3 units] [221-260: 4 units] [261-300: 5 units] [301-350: 6 units] [351-400: 7 units] [Greater than 400: 8 units and Call Physician] Group 2: acetaminophen (TYLENOL) tablet 650 mgJump to med 650 mg, Oral, Every 4 hours PRN, Fever, Temperature greater than 38.5 C (101.5 F), Starting on Tue07/22/25 at 1357, Until 07/28/25 at 1435, Maximum dose of acetaminophen is 4000 mg from all sources in 24 hours. Or acetaminophen (TYLENOL) suppository 650 mgJump to med 650 mg, Rectal, Every 4 hours PRN, Fever, Temperature greater than 38.5 C (101.5 F), Starting on Tue07/22/25 at 1357, Until 07/28/25 at 1435, Maximum dose of acetaminophen is 4000 mg from all sources in 24 hours. documented in this encounter Additional Health Concerns Infection Onset Date Last Indicated Resolved Time ESBL - Extended Spectrum Bet a-lactamase Comment:Added from external infection.+ESBL Urine BJC 08/23/21 08/23/2021 MRSA Comment:04/20/22 +MRSA Nasal 04/21/2022 07/22/2025 documented as of this encounter Care Teams Patternmaker Sample Relationship Specialty Start Date End Date Carl Maloney MD [address] [place] [id number] PCP - General INTERNAL MEDICINE 07/03/24 Real Hodges MD [facility]. [address] [place] [address] [employer] CARDIOVASCULAR DISEASE 07/24/16 Enio Centeno DO [address] [place] [address] NEUROLOGY 07/03/24 Josse Alanis MD [address] [place] [address] NEPHROLOGY 07/03/24 Cristofer Schwarz MD [address] [place] [id number] Referring Physician NEPHROLOGY 07/03/24 documented as of this encounter
[2025-07-29] VITALS (33 sets, daily range): BP systolic 71–123; BP diastolic 32–88; PULSE 85–131; RESP 14–29; TEMP 36.4–36.6; O2SAT 93–100; BMI 43.2
--- NOTE | ~2025-07-29 | XR_ITS ---
EXAMINATION: XR chest 1V portable COMPARISON: No comparisons available. HISTORY: Acute respiratory failure, pneumonia, edema FINDINGS: Moderate pulmonary venous congestion. Right basilar infiltrate. No pneumothorax. Moderate cardiomegaly. Mediastinal and hilar contours are within normal limits. Bony thorax no acute abnormality. Miscellaneous: Right line terminates in the SVC. Impression: CHF. Superimposed pneumonia Reviewed, dictated and finalized at location P. Impression: CHF. Superimposed pneumonia
--- NOTE | ~2025-07-29 | XR_ITS ---
EXAMINATION: XR chest 1V portable DATE: 08/03/2025 06:37 INDICATION: Acute respiratory failure. Pneumonia. Pulmonary edema. TECHNIQUE: frontal view of the chest was obtained. COMPARISON: Chest radiograph dated 08/02/2025 FINDINGS: Again seen is a large bore dual-lumen likely tunneled right internal jugular central venous catheter with distal tip in the right atrium. Persistent opacities in the bilateral lower lung zones and right perihilar region. No pneumothorax or definitive pleural effusion. Cardiomegaly. Enlargement of the c entral pulmonary arteries consistent with pulmonary arterial hypertension. Calcified right thyroid nodule projecting over the right apex. Calcified right hilar lymph nodes along with multiple small hepatic and splenic calcifications consistent with old granulomatous disease. Surgical clips at the right axilla. IMPRESSION: 1. Persistent right perihilar and bibasilar opacities which represent atelectasis or pneumonia. 2. Cardiomegaly with enlargement of the central pulmonary arteries consistent with pulmonary arterial hypertension. Reviewed, dictated and finalized at location A. IMPRESSION: 1. Persistent right perihilar and bibasilar opacities which represent atelectas is or pneumonia. 2. Cardiomegaly with enlargement of the central pulmonary arteries consistent w ith pulmonary arterial hypertension.
--- NOTE | ~2025-07-29 | XR_ITS ---
EXAMINATION: XR chest 1V portable COMPARISON: No comparisons available. HISTORY: cp FINDINGS: Moderate pulmonary venous congestion. Basilar small infiltrates. No pneumothorax. Moderate cardiomegaly. Mediastinal and hilar contours are within normal limits. Bony thorax no acute abnormality. Miscellaneous: Right line in the atrium. Impression: CHF. Superimposed probable pneumonia Reviewed, dictated and finalized at location P. Impression: CHF. Superimposed probable pneumonia
--- NOTE | ~2025-07-29 | XR_ITS ---
EXAMINATION: XR chest 1V portable DATE: 08/01/2025 05:40 INDICATION: Acute respiratory failure. Pneumonia. Pulmonary edema. TECHNIQUE: frontal view of the chest was obtained. COMPARISON: Chest radiograph dated 07/31/[address] dated 07/29/25 FINDINGS: Patient is rotated towards the right. Cardiomegaly with enlarged central pulmonary arteries consistent with pulmonary arterial hypertension. This along with rotation calcification. Opacities in the right hilar and infrahilar regions. Mild bibasilar opacities which could represent atelectasis or pneumon ia. No pleural effusion or pneumothorax. Large-bore dual-lumen likely tunneled right internal jugular central venous catheter with distal tip in the right atrium. Surgical clips at the right axilla. Calcified mass projecting over the right apex corresponding to a thyroid nodule on prior CT. IMPRESSION: 1. Mild bibasilar opacities which could represent atelectasis and/or pneumonia. 2. Cardiomegaly with enlargement of the central pulmonary arteries consistent with pulmonary arterial hypertension. Reviewed, dictated and finalized at location A. IMPRESSION: 1. Mild bibasilar opacities which could represent atelectasis and/or pneumonia. 2. Cardiomegaly with enlargement of the central pulmonary arteries consistent w ith pulmonary arterial hypertension.
--- NOTE | ~2025-07-29 | CT_ITS ---
EXAMINATION: CT brain wo liz, 07/29/2025 17:20 CDT HISTORY: AMS COMPARISON: No comparisons available. Technique: Axial images obtained of the brain without contrast. One or more of the following dose reduction techniques were used: automated exposure control, adjustment of the mA and/or kV according to patient size, use of iterative reconstruction technique. 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 No acute infarct or hemorrhage. No midline shift or mass effect. No extra-axial fluid collections. Bilateral mastoid effusions noted. Severe left maxillary sinusitis with underlying polyp formation suspected. No acute fracture. No significant facial or scalp soft tissue swelling evident. No radiopaque foreign body is seen. Impression: 1.No acute intracranial abnormality. Reviewed, dictated and finalized at location P. Impression: 1.No acute intracranial abnormality.
--- NOTE | ~2025-07-29 | CT_ITS ---
CHEST ABDOMEN PELVIS WITHOUT CONTRAST CLINICAL HISTORY: sepsis, AMS, nausea and vomiting . COMPARISON: CT abdomen pelvis 02/26/2024 Chest x-ray today TECHNIQUE: Helical CT performed from thoracic inlet to symphysis pubis Coronal, sagittal reformats CT images acquired with automatic exposure control for dose reduction DLP: 1733 mGy-cm FINDINGS: CHEST- Lungs/Pleura: Small left effusion. Bibasilar dependent atelectasis. Interlobular septal thickening. Thoracic Aorta: No aneurysm. Atherosclerotic disease. Pulmonary arteries: Dilated. Heart: Cardiomegaly. Coronary artery calcifications. Tracheobronchial tree: Patent. Nodes: No enlarged nodes. Right hilar calcifications Bones: No acute bony abnormality. Soft tissues: Calcified right lobe thyroid nodule. ABDOMEN/PELVIS- Liver: Enlarged. Cirrhosis. A few small cysts. Gallbladder: Removed. Spleen: Unremarkable. Pancreas: Unremarkable. Adrenal glands: Right side nodular and calcified. Kidneys: Atrophic. Multiple cysts and hyperdense cysts Right kidney- No hydronephrosis. No renal stones. Left kidney- No hydronephrosis. No renal stones. Distal esophagus/stomach: Unremarkable. Small bowel loops: Normal caliber and wall thickness. Colon: Diverticula. Normal caliber and wall thickness. Normal RLQ appendix. Nodes: No enlarged nodes. Peritoneum: Trace ascites. No free air. Urinary bladder: Stones. Uterus: Unremarkable. Adnexa: No masses. Bones: Chronic L3 height loss. Soft tissues: Soft tissue gas foci right groin likely from vascular access attempt. Right groin central venous line. Anasarca along lateral flanks. Aorta: No aneurysm. IVC: Unremarkable. IMPRESSION: CHEST- 1. Mild interstitial pulmonary edema with small left pleural effusions and bibasilar atelectasis. 2. No other acute abnormality. ABDOMEN/PELVIS- 1. No acute abnormality. 2. Additional findings as above. Reviewed, dictated and finalized at location R. IMPRESSION: CHEST- 1. Mild interstitial pulmonary edema with small left pleural effusions and bib asilar atelectasis. 2. No other acute abnormality. ABDOMEN/PELVIS- 1. No acute abnormality. 2. Additional findings as above.
--- NOTE | ~2025-07-29 | XR_ITS ---
EXAMINATION: XR chest 1V portable COMPARISON: No comparisons available. HISTORY: Acute respiratory failure, pneumonia, edema FINDINGS: Moderate pulmonary venous congestion. No pneumothorax. Moderate cardiomegaly. Mediastinal and hilar contours are within normal limits. Bony thorax no acute abnormality. Miscellaneous: Right central line in the atrium. Impression: CHF Reviewed, dictated and finalized at location P. Impression: CHF
--- NOTE | ~2025-07-29 | XR_ITS ---
EXAMINATION: XR chest 1V portable COMPARISON: No comparisons available. HISTORY: fever, leukocytosis FINDINGS: Mild pulmonary venous congestion. Small right basilar infiltrate. No pneumothorax. Mild cardiomegaly. Mediastinal and hilar contours are within normal limits. Bony thorax no acute abnormality. Miscellaneous: Right line terminates in the atrium. Impression: CHF. Superimposed bilateral lower lobe pneumonia. The findings appear progressed compared to the previous study Reviewed, dictated and finalized at location P. Impression: CHF. Superimposed bilateral lower lobe pneumonia. The findings appear progresse d compared to the previous study
--- NOTE | ~2025-07-29 | XR_ITS ---
Clinical history:Known pneumonia. Repeat chest x-ray EXAM:X-ray chest 2 views TECHNIQUE:Frontal and lateral images of the chest were obtained. Comparisons:08/10/2025 FINDINGS: Grossly stable double-lumen right-sided central venous catheter with its tips projecting over the right atrium. No pneumothorax. No pleural effusion identified. No free air under the diaphragm. Stable calcification in the right lung apex. Cardiomediastinal silhouette is enlarged. Patchy opacities in the right mid and lower lungs similar to the prior study from 08/10/2025. Patchy opacities in the left lower lung similar to the prior study from 08/10/2025. The patient is rotated to the right which slightly limits evaluation. IMPRESSION: 1.Patchy opacities in the right mid and lower lungs similar to the prior study from 08/10/2025. Follow-up is recommended. 2.Patchy opacities in the left lower lung similar to the prior study from 08/10/2025. Reviewed, dictated and finalized at location Q. IMPRESSION: 1.Patchy opacities in the right mid and lower lungs similar to the prior study from 08/10/2025. Follow-up is recommended. 2.Patchy opacities in the left lower lung similar to the prior study from 08/10.
--- NOTE | ~2025-07-29 | XR_ITS ---
EXAMINATION: XR chest 1V portable COMPARISON: No comparisons available. HISTORY: Acute respiratory failure, pneumonia, edema FINDINGS: Moderate pulmonary venous congestion. No pneumothorax. Moderate cardiomegaly. Mediastinal and hilar contours are within normal limits. Bony thorax no acute abnormality. Miscellaneous: Right central line in the atrium. Impression: CHF Reviewed, dictated and finalized at location P. Impression: CHF
--- NOTE | 2025-07-29 12:22 | ECG_ITS ---
Test Date: 2025-07-29 12:56:03 Measurements Intervals [place] Rate: 91 P: 0 VT: 0 QRS: -12 QRSD: 110 T: 44 QT: 371 QTc: 457 Interpretive Statements ATRIAL FIBRILLATION INCOMPLETE LEFT BUNDLE BRANCH BLOCK BASELINE ARTIFACT- I, III, AVR, AVL, AVF ABNORMAL ECG Compared to ECG 11/05/2024 07:08:20 NO SIGNIFICANT CHANGE Electronically Signed On 07-29-2025 13:05:24 CDT by Don Flores D.O.
--- NOTE | 2025-07-29 12:22 | PC.NURSE ---
central line kit at bedside at this time per request from EDP
[2025-07-29] MEDS: SODIUM CHLORIDE 0.9% IV 500 ML 999 ML IV CONT (12:54)
[2025-07-29 12:58] LABS: Hematocrit 30.2 % (37.0-47.0); Hemoglobin 8.7 g/dL (12.0-15.0); Immature Granulocyte Percent A 1.0 % (0-0.5); Lymphocytes Absolute Auto 0.81 K/mm3 (0.9-3.2); Mean Corpuscular HGB Conc 28.8 g/dl (32-36); Mean Corpuscular Hemoglobin 29.6 pg (26-34); Mean Corpuscular Volume 102.7 fl (80-100); Nucleated Red Blood Cells Absolute Auto 0.020 K/mm3 (0.0-0.012); Nucleated Red Blood Cells Perc 0.3 % (0.0-0.2); Platelet Count Result 258 k/mm3 (150-375); Red Blood Count 2.94 M/mm3 (4.2-5.4); White Blood Count 7.2 K/mm3 (4.5-10.0)
--- NOTE | 2025-07-29 13:05 | VASCRN ---
Order received for: PICC Line After review of the chart and the patient assessment, patient is not a candidate for the following reason(s): the patient is an active dialysis patient with a CVC to the right chest and a graft to the left arm Provider notified:Richie
[2025-07-29 13:10] LABS: INR 1.8; Prothrombin Time 21.2 Seconds (11.1-14.7)
[2025-07-29 13:12] LABS: Hypochromasia 1+; Ovalocytes 1+
[2025-07-29 13:17] LABS: Alanine Aminotransferase 47 U/L (6-35); Albumin Level 3.2 g/dL (3.5-5.1); Alkaline Phosphatase 181 U/L (38-126); Anion Gap 13 mmol/L (4-12); Aspartate Amino Transferase 25 U/L (14-36); Bilirubin,Total 0.6 mg/dL (0.2-1.3); Blood Urea Nitrogen 56 mg/dL (7-17); Calcium 9.5 mg/dL (8.4-10.2); Carbon Dioxide 23 mmol/L (22-30); Chloride 101 mmol/L (98-107); Estimated CRCL calculation 10 ml/min; Estimated Glomerular Filt Rate 8; Glucose 223 mg/dL (65-110); Potassium 4.9 mmol/L (3.4-5.0); Sodium 137 mmol/L (137-145); Total Protein 6.4 g/dL (6.3-8.2)
[2025-07-29] MEDS: ALBUMIN HUMAN 25% 25 GM/100 ML 200 ML IVPB (14:08)
--- NOTE | 2025-07-29 14:15 | PCRCNOTE ---
Patient refused ABG. Patient screaming and is non compliant with RT. Dr Aware. VBG will be ordered.
[2025-07-29] MEDS: SODIUM CHLORIDE 0.9% IV 500 ML 999 ML (15:20)
--- NOTE | 2025-07-29 15:37 | ED.GENADULT ---
HPI - General Adult General Chief complaint: Unspecified Stated complaint: hypotensive Time Seen by Provider: 07/29/25 12:09 Source: EMS Mode of arrival: EMS Limitations: altered mental status History of Present Illness HPI narrative: 80-year-old with a history of ESRD on hemodialysis was brought in from dialysis center with a complains of altered mental status, low blood pressure since this morning. Patient's daughter was at bedside states that she was discharged from [facility] [place] yesterday after her cardiology checkup and her fistula evaluation. She also diagnosed with pneumonia and [facility] was treated with antibiotics till about yesterday. History of sleep apnea of on oxygen at bedtime. Not much of history could be obtained from the patient Onset (ago): day(s) (1) Related Data Home Medications ?Medication ?Instructions ?Recorded ?Confirmed ?Last Taken ?Type cyanocobalamin (vitamin B-12) 1,000 mcg PO DAILY 08/18/20 07/06/25 02/16/22 History 1,000 mcg tablet ferrous sulfate 324 mg (65 mg 325 mg PO EVERY OTHER DAY 01/11/22 07/06/25 02/16/22 History iron) tablet,delayed release cranberry 500 mg capsule 500 mg PO TID 01/16/24 07/06/25 Unknown History fluconazole 150 mg tablet 150 mg PO WEEKLY 04/24/24 07/06/25 Unknown History ondansetron 4 mg disintegrating 4 mg PO Q6H PRN nausea and vomiting 09/04/24 07/06/25 Unknown History tablet dextromethorphan-guaifenesin ER 60 1 tablet PO Q12H PRN congestion 11/21/24 07/06/25 Unknown History mg-1,200 mg tab,extend release,12hr (Mucinex DM) acetaminophen 500 mg capsule 500 mg PO Q6H PRN cHONIC BACK PAIN 02/26/25 07/06/25 Unknown History docusate sodium 100 mg capsule 200 mg PO BID 02/26/25 07/06/25 Unknown History acetaminophen 650 mg 650 mg PO Q4H PRN GENERAL 07/06/25 07/06/25 Unknown History tablet,extended release DISCOMFORT metoprolol tartrate 25 mg tablet 25 mg PO BID 07/06/25 07/06/25 Unknown History tenapanor 30 mg tablet (Xphozah) 30 mg PO QPM 07/06/25 07/06/25 Unknown History tizanidine 2 mg capsule (Zanaflex) 2 mg PO Q8H PRN muscle spasticity 07/06/25 07/06/25 Unknown History furosemide 40 mg tablet (Lasix) 40 mg PO BID 07/29/25 Unknown History Allergies Allergy/AdvReac Type Severity Reaction Status Date / Time Sulfa (Sulfonamide Allergy Severe Rash Verified 01/17/25 14:55 Antibiotics) bupropion (From Wellbutrin) Allergy Intermediate Unknown Verified 01/17/25 14:55 Review of Systems Review of Systems: ROS unobtainable: Yes unobtainable due to mental status [facility] Past Medical History Medical History Chronic indwelling Braswell catheter Anxiety Frequent UTI BMI 38.0-38.9,adult Chronic back pain Seasonal allergies Hypercalcemia Cataract of right eye CHELSEA on CPAP Intolerant to CPAP Narcolepsy Poorly documented CHF (congestive heart failure) Echocardiogram 2021 from [facility]: Left ventricular size mildly enlarged left ventricular systolic function moderately depressed with EF of 35-40%, mild concentric left ventricular hypertrophy, diastolic dysfunction indeterminate due to AFib, moderate global hypokinesis, moderate right ventricular enlargement with normal right ventricular systolic function, severe left atrial volume overload greater than 48 mL, moderate right atrial enlargement, mildly dilated aortic root mild aortic regurgitation Dementia Depression Knee pain Thoracic aortic aneurysm Vitamin B12 deficiency Constipation History of orthostatic hypotension Left ventricular outflow obstruction echocardiogram May 2020 Stress incontinence in female Osteoporosis DEXA scan 08/14/2020 Hearing loss of both ears Vitamin D deficiency Carotid bruit less than 50% stenosis of right internal carotid artery a on Doppler 07/01/2020 Kidney stones of the left kidney with multiple lithotripsies Cancer of right breast status post radiation and chemotherapy Thyroid nodule (~2014) Overactive bladder A-fib Hyperlipidemia 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 DM type 2 (diabetes mellitus, type 2) (~2018) Benign essential hypertension Surgical History Surgical History Status post right cataract extraction Status post cataract extraction and insertion of intraocular lens of right eye Status post right breast lumpectomy Family History Family History Sibling Diabetes mellitus Father Diabetes mellitus CHF (congestive heart failure) Kidney failure Mother Cervical cancer Ovarian cancer Sibling Diabetes mellitus Brain bleed Hypertension Cerebrovascular accident Social History Social History Social History: She resides at [facility]. She is . She is a lifelong nonsmoker and does not drink alcohol or use illicit substances. She is retired from the [employer]. Code status: Full code Surrogate decision maker: Daughter Smoking status: Never smoker Second hand tobacco smoke exposure: No Alcohol intake: never Substance use: never Substance use type: does not use Do You Feel Safe in your Home?: Yes Lack of Transportation: No Lack of Food: Never True Current Housing: I Have Housing Concerned About Future Housing: No Difficulty Paying Gas/Electric Bills: No Difficulty Paying for Meds: No Currently Unemployed: No Education: High School Diploma/GED Difficulty w/ Childcare or Family Care: No Living arrangements: [facility] Occupation/Education: retired 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 Gender identity (if verbalized by the patient): Female Sexual Orientation (if Verbalized by the Patient): Straight or Heterosexual Spiritual care concerns: Yes Agree to blood products: Yes Exam Narrative: GENERAL: Lethargic, well-nourished, morbidly obese ,and in no acute distress., very hard of hearing HEAD: Normocephalic, atraumatic. EYES: PERRLA and EOMI. ENT: Nares clear, no rhinorrhea or epistaxis. Mucous membranes moist. NECK: Supple. CHEST: Clear to auscultation. No respiratory distress. has port on the right side of the chest HEART: Regular rate and rhythm. No murmur heard. Normal peripheral pulses. ABDOMEN: Soft, nontender, nondistended, normal active bowel sounds. EXTREMITIES: Normal range of motion. No edema. SKIN: Warm, dry, no rash. NEURO: No focal deficits. Alert and oriented x3. PSYCH: Normal mood and affect. Course Course Emergency Course: Patient upon arrival was hypertensive I did give her a bolus of normal saline 500 mL which has not improved her blood pressure did order albumin obtained more history from the daughter.. Lab work was ordered white count and lactic acid were normal chest x-ray and conclusive whether CHF versus pneumonia procalcitonin levels ordered. Patient still remained hypotensive after the 2nd bolus discussed with the daughter agreed with placing Central line and starting on pressors. I discussed with Dr. Weems agreed with the plan and did inform Dr. Sanchez . discussed with Hospitalist , will accept. Vital Signs Vital signs: Vital Signs Pulse Rate 102 H 07/29/25 12:02 Respiratory Rate 22 H 07/29/25 12:02 Blood Pressure 91/32 L 07/29/25 12:02 Pulse Oximetry 94 07/29/25 12:02 Oxygen Delivery Room Air 07/29/25 12:02 Pulse Rate 108 H 07/29/25 16:16 Respiratory Rate 16 07/29/25 16:16 Blood Pressure 116/83 07/29/25 16:16 Pulse Oximetry 95 07/29/25 16:16 Oxygen Delivery Nasal Cannula 07/29/25 15:30 Oxygen Flow Rate 2 07/29/25 15:30 Procedures Central Line Placement Right Femoral: Central Line Date: 07/29/25 Discussed w/ the patient/family/POA,the placement of a central venous catheter, including its clinical necessity/indication & associated potential risks, benifits and alternatives.: Yes The patient/family/POA understand(s) and acknowledge(s) the need to proceed with central venous catheter insertion as an important element of the patient's clinical management.: Yes Performed Emergently - Given emergent patient condition, temporal constraints may have precluded informed consent.: Yes Time Out Performed: Yes Max. Sterile Barrier Technique: Caps and large sterile sheet Central Line Prep: 2% chlorhexidine scrub Emergently Placed, Full Sterile: prep not done Technique: sterile prep/drape Local Anesthetic: lidocaine 1% Amount of anesthesia used (mL): 5 Ultrasound Used for Placement: Yes Central Line Lumen Inserted: triple Post Procedure: sutured in place, good blood return, all ports aspirated, flushed, capped and sterile dressing applied Post Procedure X-Ray: tip of catheter in good position Patient Tolerated Procedure: well Complications: none Medical Decision Making Differential Diagnosis Differential Diagnosis: Dehydration , sepsis , orthostatic hypotension Medical Records Medical records reviewed: Yes I reviewed the external patient's medical records. Vital Signs Vital Signs: Vital Signs Pulse Rate 102 H 07/29/25 12:02 Respiratory Rate 22 H 07/29/25 12:02 Blood Pressure 91/32 L 07/29/25 12:02 Pulse Oximetry 94 07/29/25 12:02 Oxygen Delivery Room Air 07/29/25 12:02 Pulse Rate 108 H 07/29/25 16:16 Respiratory Rate 16 07/29/25 16:16 Blood Pressure 116/83 07/29/25 16:16 Pulse Oximetry 95 07/29/25 16:16 Oxygen Delivery Nasal Cannula 07/29/25 15:30 Oxygen Flow Rate 2 07/29/25 15:30 Lab Data Lab results reviewed: Yes I reviewed the patient's lab results. 07/29/25 12:52 07/29/25 12:52 Labs: Lab Results 07/29/25 07/29/25 07/29/25 Range/Units 12:52 15:45 16:11 WBC 7.2 (4.5-10.0) K/mm3 RBC 2.94 L (4.2-5.4) M/mm3 Hgb 8.7 L (12.0-15.0) g/dL Hct 30.2 L (37.0-47.0) % MCV 102.7 H (80-100) fl MCH 29.6 (26-34) pg MCHC 28.8 L (32-36) g/dl RDW 17.1 H (11.5-14.5) % Plt Count 258 (150-375) k/mm3 MPV 10.0 (7.4-10.4) fl Immature Gran % (Auto) 1.0 H (0-0.5) % Neut % (Auto) 77.9 H (45.5-73.1) % Lymph % (Auto) 11.3 L (18.3-44.2) % Catron % (Auto) 8.1 (2.6-8.5) % Eos % (Auto) 1.4 (0-4.4) % Baso % (Auto) 0.3 (0.2-1.2) % Lymph # (Auto) 0.81 L (0.9-3.2) K/mm3 Catron # (Auto) 0.6 (0.1-0.6) K/mm3 Eos # (Auto) 0.1 (0-0.3) K/mm3 Baso # (Auto) 0.0 (0.0-0.1) K/mm3 Abs Immat Gran (auto) 0.07 H (0.00-0.031) K/mm3 Absolute Neuts (auto) 5.6 (1.3-6.7) K/mm3 Absolute Nucleated RBC 0.020 H (0.0-0.012) K/mm3 Band Neutrophils % Not Reportable Nucleated RBC % 0.3 H (0.0-0.2) % Platelet Estimate Adequate (Adequate) Hypochromasia 1+ Ovalocytes 1+ Schistocytes Not Reportable PT 21.2 H (11.1-14.7) Seconds INR 1.8 Sodium 137 (137-145) mmol/L Potassium 4.9 (3.4-5.0) mmol/L Chloride 101 (98-107) mmol/L Carbon Dioxide 23 (22-30) mmol/L Anion Gap 13 H (4-12) mmol/L BUN 56 H D (7-17) mg/dL Creatinine 5.37 H (0.7-1.0) mg/dL Estim Creat Clear Calc 10 ml/min Estimated GFR 8 L (59 - ) Glucose 223 H (65-110) mg/dL Lactic Acid 2.0 (0.7-2.0) mmol/L Calcium 9.5 (8.4-10.2) mg/dL Total Bilirubin 0.6 (0.2-1.3) mg/dL AST 25 (14-36) U/L ALT 47 H (6-35) U/L Alkaline Phosphatase 181 H (38-126) U/L Total Protein 6.4 (6.3-8.2) g/dL Albumin 3.2 L (3.5-5.1) g/dL Prolactin Pending Nasal MRSA (PCR) Pending ECG Data EKG #1: EKG Interpretation: normal rate (91), atrial fibrillation, no ectopy, no ST changes, normal QRS and no acute changes Critical Care Time Critical Care Time Critical Care Time: Yes Total Critical Care Time: 45 Discharge Plan Discharge Clinical Impression: Sepsis Qualifiers: Sepsis type: sepsis due to unspecified organism Sepsis acute organ dysfunction status: unspecified Qualified Code(s): A41.9 - Sepsis, unspecified organism Patient Disposition: Still a Patient Condition: Critical Patient Language: Greenlandic Prescriptions: No Action cyanocobalamin (vitamin B-12) 1,000 mcg tablet 1,000 mcg PO DAILY ferrous sulfate 324 mg (65 mg iron) tablet,delayed release (DR/EC) 325 mg PO EVERY OTHER DAY Rx Instructions: - ondansetron 4 mg tablet,disintegrating 4 mg PO Q6H PRN (Reason: nausea and vomiting) (DME) Thigh High SANDOVAL hose See Rx Instructions .Route .MEDSUPPLY Qty: 3 0RF Rx Instructions: As directed. Please fill for 3 pairs. Thank you fluconazole 150 mg tablet 150 mg PO WEEKLY Xphozah 30 mg tablet 30 mg PO QPM Rx Instructions: administer with a meal acetaminophen 650 mg tablet extended release 650 mg PO Q4H PRN (Reason: GENERAL DISCOMFORT) metoprolol tartrate 25 mg tablet 25 mg PO BID tizanidine [Zanaflex] 2 mg capsule 2 mg PO Q8H PRN (Reason: muscle spasticity) lidocaine-prilocaine 2.5-2.5 % Cream 60 g topical WITH DIALYSIS PRN (Reason: for dialysis) Qty: 60 0RF cranberry 500 mg capsule 500 mg PO TID Rx Instructions: administer with meals nitroglycerin 0.4 mg tablet, sublingual 0.4 mg sublingual Q5M PRN (Reason: Chest Pain) Qty: 25 2RF Rx Instructions: do not exceed 3 doses per episode insulin aspart U-100 [Novolog U-100 Insulin aspart] 100 unit/mL solution See Rx Instructions subcut .COMPLEX Qty: 10 0RF Rx Instructions: SSI: 200-250=4 units, 251-300=8 units, 301-350=10 units, 351-400=12 units, greater than 400=12 units subcutaneously; (DME) FreeStyle Robbi 3 Sensor Device See Rx Instructions .Route Qty: 1 0RF Rx Instructions: As directed Eliquis 5 mg tablet 5 mg PO BID Qty: 180 2RF dextromethorphan-guaifenesin [Mucinex DM] 60-1,200 mg tablet extended release 12 hr 1 tablet PO Q12H PRN (Reason: congestion) (DME) pen needle, diabetic [BD Lindsay 2nd Gen Pen Needle] 32 gauge x 5/32 needle See Rx Instructions .ROUTE .COMPLEX Qty: 100 1RF Dose Instruction: USE TO INJECT ONCE DAILY Rx Instructions: USE TO INJECT ONCE DAILY All Day Allergy (cetirizine) 10 mg capsule 10 mg PO DAILY PRN (Reason: allergy symptoms) Qty: 90 0RF simethicone [Gas-X Extra Strength] 125 mg capsule 250 mg PO DAILY PRN (Reason: abdominal distention) Qty: 20 0RF Rx Instructions: Adult 1?2 softgels as needed after meals and at bedtime; max 4 softgels/day buspirone 5 mg tablet See Rx Instructions .ROUTE .COMPLEX Qty: 270 1RF Dose Instruction: 5 MG ORALLY THREE TIMES A DAY Rx Instructions: 5 MG ORALLY THREE TIMES A DAY docusate sodium 100 mg capsule 200 mg PO BID acetaminophen 500 mg capsule 500 mg PO Q6H PRN (Reason: cHONIC BACK PAIN) rosuvastatin 10 mg tablet 10 mg PO DAILY Qty: 90 0RF aripiprazole 2 mg tablet See Rx Instructions .ROUTE .COMPLEX Qty: 135 0RF Dose Instruction: TAKE 1&1/2 TABS BY MOUTH EVERYDAY AT BEDTIME Rx Instructions: TAKE 1&1/2 TABS BY MOUTH EVERYDAY AT BEDTIME sertraline 50 mg tablet 50 mg PO DAILY Qty: 90 1RF nystatin 100,000 unit/gram powder 1 applic topical BID Qty: 60 0RF Rx Instructions: coccyx, groin, and abdominal folds methylphenidate HCl 10 mg tablet 10 mg PO BIDWMEAL Qty: 60 0RF Rx Instructions: breakfast and lunch tramadol 50 mg tablet 50 mg PO QID PRN (Reason: pain) Qty: 50 0RF insulin glargine [Lantus Solostar U-100 Insulin] 100 unit/mL (3 mL) insulin pen 15 unit subcut QAM Qty: 15 0RF furosemide [Lasix] 40 mg tablet 40 mg PO BID Rx Instructions: Take on nondialysis Days Follow-up/Referrals: Carl Maloney MD [Primary Care Provider, Internal Medicine] Time of Disposition: 15:41
[2025-07-29] MEDS: NOREPINEPHRINE 8 MG/D5W 250 ML 8 MG/250 ML BAG 9.38 MG IV CONT (15:47)
[2025-07-29] MEDS: PIPERACILLIN/TAZOBACTAM SOD 3.375 GM in SODIUM CHLORIDE 0.9% IV 50 ML 100 ML IVPB (16:04)
--- OUTSIDE RECORDS SUMMARY | 2025-07-29 16:14 | XMS_ITS | Encounter Summary ---
Author Organization [facility] Address [facility] [place] [address] Care Team Providers Care Beater Out Leveling Machine Name Role Phone Geovani Gonzalez MD Unavailable [phone] Enio Centeno DO Unavailable [phone] Josse Alanis MD Unavailable Cristofer Schwarz MD Unavailable [phone] Carl Maloney MD Primary Care Provider [phone] Reason for Referral * Surgical (Routine) - Closed Specialty Diagnoses / Procedures Referred By Hamilton daniels Referred To Contact Diagnoses ESRD (end stage renal disease) on dialysis ([facility]) Procedures Case request operating room: BASILIC VEIN TRANSPOSITION WITH POSSIBLE ARTERIO-VENOUS GRAFT PLACEMENT (LEFT ARM) Nikhil Lamas MD [facility]. [facility] [address] [place] [address] Phone: tel: fax: Referral ID Status Reason Start Date Expiration Date Visits Re quested Visits Authorized [id number] Closed 06/19/2024 06/19/2025 1 1 Encounter Details Date Type Department Care Team (Late st Contact Info) Description 06/19/2024 Prep for Procedure [facility], [facility] [address] [place] [address] Nikhil Lamas MD [id number] [place] [address] Social History Tobacco Use Types Packs/Day Years Used Date Smoking Tobacco: Never Smokeless Tobacco: Never Alcohol Use Standard Drinks/Week Comments No 0 (1 standard drink = 0.6 oz pur e alcohol) [facility] Utilities Answer Date Recorded In the past 12 months has e [employer], gas, oil, or water [employer] threatened to shut off services in your home? No 01/08/2024 Humiliation, Afraid, Rape, and Kick questionnair e Answer Date Recorded Within the last year, have y ou been afraid of your partner or ex-partner? No 01/08/2024 Within the last year, have y ou been humiliated or emotionally abused in other ways by your partner or ex-partner? No Within the last year, have y ou been kicked, hit, slapped, or otherwise physically hurt by your partner or ex-partner? No 01/08/2024 Within the last year, have y ou been raped or forced to have any kind of sexual activity by your partner or ex-partner? No 01/08/2024 Social Connection and Isolat ion Panel [NHANES] Answer Date Recorded In a typical week, how many times do you talk on the phone with family, friends, or neighbors? More than three times a week 01/08/2024 How often do you get togethe r with friends or relatives? More than three times a week 01/08/2024 How often do you attend chur or holiness services? 1 to 4 times per year 01/08/2024 Do you belong to any clubs o r organizations such as voodoo groups, unions, fraternal or athletic groups, or [...] care, and heating? Not hard at all 01/08/2024 [facility] - Occupational Stress Questionnaire Answer Date Recorded [...] the money to buy more. Never true 01/08/20 24 Within the past 12 months, t he food you bought just didn't last and you didn't have money to get more. Never true 01/08/2024 PRAPARE - Transportation Answer Date Re corded In the past 12 months, has l ack of transportation kept you from medical appointments or from getting medications? No 12/22 In the past 12 months, has l ack of transportation kept you from meetings, work, or from getting things needed for daily living? No 01/08/2024 Housing Stability Vital Sign Answer [...] place to sleep or slept in a chcf (including now)? No 01/08/2024 Comments No Sex and Gender Information Value Date Recorded Sex Assigned at Female 07/22/2025 12:46 PM CDT Legal Sex Female 1:27 PM CDT Gender Identity Not on file Sexual Orientation Not on file Occupation Industry Job Start Date Job End Date Not on file Not on file Not on file Not on file documented as of this encounter Functional Status * Are you deaf or do you have serious difficulty hearing Answer Date of Assessment Author Status No 01/08/2024 12:59 AM CDT Rocky Bloom RN Active * Are you blind or do you have serious difficulty seeing, even when wearing glasses? Answer Date of Assessment Author Status No 01/08/2024 12:59 AM CDT Rocky Bloom RN Active * Do you have serious difficulty walking or climbing stairs? Answer Date of Assessment Author Status Yes 01/08/2024 12:59 AM Rocky Claudio RN Active * Do you have difficulty dressing or bathing? Answer Date of Assessment Author Status Yes 01/08/2024 12:59 AM Rocky Claudio RN Active * Because of a physical, mental, or emotional condition, do you have difficulty doing errands alone such as visiting a doctor's office or shopping? Answer Date of Assessment Author Status Yes 01/08/2024 12:59 AM Rocky Claudio RN Active documented as of this encounter Mental Status * Because of a physical, mental, or emotional condition, do you have serious difficulty concentrating, remembering, or making decisions? Answer Entry Date Author Status Yes 01/08/2024 12:59 AM Rocky Claudio RN Active documented in this encounter Plan of Treatment Upcoming Encounters Date Type Department Care Team (Late st Contact Info) Description 10/01/2025 2:30 PM BLANK DRILLER Office Visit [facility], [address] [place], [place] [id number] Cristina Palacios FNP [address] [facility] [address] [place], [place] [id number] Scheduled Orders Name Type Priority Associated Diagnoses Orde r Schedule Case request operating room: BASILIC VEIN TRANSPOSITION WITH POSSIBLE ARTERIO-VENOUS GRAFT PLACEMENT (LEFT ARM) Case Request Routine ESRD (end stage renal disease) on dialysis Once for 1 Occurrences starting 06/19/2024 until 06/19/2024 documented as of this encounter Goals Goal Patient Goal Type Associated Problems Recent Progress Patient-Stated? Author Family - family caregiver with be involved in care transitions and discharge planning General No Camryn Monet, FLOOR PRESS OPERATORpublic employment mediator - family caregiver with be involved in care transitions and discharge planning General No Pau Jean RN documented as of this encounter Results * (ABNORMAL) COMPREHENSIVE METABOLIC PANEL (07/10/2024 11:50 AM CDT) [facility] GLUCOSE 112(H) 70 - 99 MG/DL 07/10/2024 12:32 PM CDT [facility] BUN 39(H) 7 - 18 MG/DL 07/10/2024 12:32 PM CDT [facility] CREATININE S/P/B 3.90(H) 0.55 - 1.02 MG/DL 07/10/2024 12:32 PM CDT [facility] SODIUM S/P/B 135(L) 136 - 145 MMOL/L 07/10/2024 12:32 PM CDT [facility] POTASSIUM S/P/B 4.4 3.5 - 5.1 MMOL/L 07/10/2024 12:32 PM CDT [facility] CHLORIDE S/P/B 101 97 - 115 MMOL/L 07/10/2024 12:32 PM CDT [facility] CO2 26.1 21 - 32 MMOL/L 07/10/2024 12:32 PM CDT [facility] CALCIUM S/P/B 10.9(H) 8.5 - 10.1 MG/DL 07/10/2024 12:32 PM CDT [facility] BILIRUBIN TOTAL S/P/B 0.7 0.2 - 1.2 MG/DL 07/10/2024 12:32 PM CDT [facility] Comment: THIS ASSAY IS NOT RECOMMENDED FOR PATIENTS UNDERGOING TREATMENT WITH ELTROMBOPAG DUE TO THE POTENTIAL FOR FALSELY ELEVATED RESULTS. TOTAL PROTEIN S/P/B 7.0 6.4 - 8.2 G/DL 07/10/2024 12:32 PM CDT [facility] ALBUMIN S/P/B 3.0(L) 3.4 - 5.0 G/DL 07/10/2024 12:32 PM CDT [facility] AST 15 15 - 37 U/L 07/10/2024 12:32 PM CDT [facility] ALT 11(L) 14 - 55 U/L 07/10/2024 12:32 PM CDT [facility] ALKALINE PHOSPHATASE S/P/B 95 50 - 136 U/L 07/10/2024 12:32 PM CDT [facility] ANION GAP 7.9 2 - 10 MMOL/L 07/10/2024 12:32 PM CDT [facility] BUN CREATININE RATIO 10.0 6 - 26 07/10/2024 12:32 PM T [facility] A/G RATIO 0.8(L) 1.0 - 2.0 RATIO 07/10/2024 12:32 PM T [facility] GFR ESTIMATE 11(L) >90 ML/MIN/1.7 3 M2 07/10/2024 12:32 PM T [facility] Comment: NOTE: eGFR is not calculated for patients <18 years of age or gender unknown. This is an estimated GFR calculation using the new CKD EPI creatinine equation without race and so does not require a correction factor for race. This estimated GFR should not be used for calculating drug doses. 07/10/2024 11:5 0 AM CDT us Nikhil Lamas MD LABORATORY Final Result [facility] [address] [place] [address], [place] [phone] * PROTIME/INR, VENOUS (07/10/2024 11:50 AM CDT) Pathologist [facility] PROTIME 11.5 10.2 - 12.9 SEC 07/10/2024 12:21 PM CDT [facility] INR 1.0 07/10/2024 12:21 PM CDT [facility] Comment: Recommended INR Therapeutic Goals: 2.0-3.0 Routine Therapy 2.5-3.5 Mechanical Prosthetic Valves (High Risk) 07/10/2024 11:5 0 AM CDT Nikhil Lamas MD LABORATORY Final Result [facility] [address] [place] [address], [place] [phone] * (ABNORMAL) CBC W/DIFF AUTOMATED (07/10/2024 11:50 AM CDT) [facility] WBC 5.44 4.5 - 11.0 x10'3/uL 07/10/2024 12:06 PM CDT [facility] RBC 4.42 4.20 - 5.40 x10'6/uL 07/10/2024 12:06 PM CDT [facility] HGB 12.9 12.0 - 16.0 G/DL 07/10/2024 12:06 PM CDT [facility] HCT 40.2 38.0 - 48.0 % 07/10/2024 12:06 PM CDT [facility] MCV 91.0 81.0 - 99.0 FL 07/10/2024 12:06 PM CDT [facility] MCH 29.2 27.0 - 31.0 PG 07/10/2024 12:06 PM CDT [facility] MCHC 32.1 32.0 - 36.0 G/DL 07/10/2024 12:06 PM CDT [facility] RDW 15.1(H) 11.5 - 14.5 % 07/10/2024 12:06 PM CDT [facility] PLT 164 130 - 400 x10'3/uL 07/10/2024 12:06 PM CDT [facility] MPV 11.0 9.3 - 12.2 FL 07/10/2024 12:06 PM CDT [facility] DIFFERENTIAL TYPE AUTOMATED DIFFERENTIAL 07/10/2024 12:06 PM CDT [facility] NEUTROPHILS % 64.5 % 07/10/2024 12:06 PM CDT [facility] LYMPHOCYTES % 27.2 % 07/10/2024 12:06 PM CDT [facility] MONOCYTES % 7.0 % 07/10/2024 12:06 PM CDT [facility] EOSINOPHILS 0.7 % 07/10/2024 12:06 PM CDT [facility] BASOPHILS 0.4 % 07/10/2024 12:06 PM CDT [facility] IMMATURE GRANS % 0.2 % 07/10/20 12:06 PM CDT [facility] ABS. NEUTROPHILS 3.51 1.80 - 7.70 x10'3/uL 07/10/2024 12:06 PM CDT [facility] ABS. LYMPHOCYTES 1.48 1.00 - 4.80 x10'3/uL 07/10/2024 12:06 PM CDT [facility] ABS. MONOCYTES 0.38 0.24 - 0.86 x10'3/uL 07/10/2024 12:06 PM CDT [facility] ABS. EOSINOPHILS 0.04 0.04 - 0.36 x10'3/uL 07/10/2024 12:06 PM CDT [facility] ABS. BASOPHILS 0.02 0.01 - 0.08 x10'3/uL 07/10/2024 12:06 PM CDT [facility] ABS. IMMATURE GRANULOCYTES 0.01 0.00 - 0.49 x10'3/uL 07/10/2024 12:06 PM CDT [facility] 07/10/2024 11:5 0 AM CDT Nikhil Lamas MD LABORATORY Final Result [facility] [address] [place] [address], documented in this encounter Visit Diagnoses Diagnosis ESRD (end stage renal disease) on dialysis ([facility])- Primary End stage renal disease documented in this encounter Additional Health Concerns Infection Onset Date Last Indicated Resolved Time ESBL - Extended Spectrum Bet a-lactamase Comment:Added from external infection.+ESBL Urine BJC 08/23/21 08/23/2021 MRSA Comment:04/20/22 +MRSA Nasal 04/21/2022 07/22/2025 documented as of this encounter Care Teams Beater Out Leveling Machine Relationship Specialty Start Date End Date Carl Maloney MD [address] [place] [id number] PCP - General INTERNAL MEDICINE 07/03/24 Geovani Gonzalez MD [address] [place] [address] [place] Unit Coordinator CARDIOVASCULAR DISEASE 07/24/16 Enio Centeno DO [address] [place] [address] NEUROLOGY 07/03/24 Josse Alanis MD [address] [place] [address] NEPHROLOGY 07/03/24 Cristofer Schwarz MD [address] [address] Referring Physician NEPHROLOGY 07/03/24 documented as of this encounter
--- OUTSIDE RECORDS SUMMARY | 2025-07-29 16:14 | XMS_ITS | Encounter Summary ---
Author Organization [facility] Address [facility] [place] [address] Care Team Providers Care Operations Processor Name Role Phone Geovani Gonzalez MD Unavailable [phone] Enio Centeno DO Unavailable [phone] Josse Alanis MD Unavailable Cristofer Schwarz MD Unavailable [phone] Carl Maloney MD Primary Care Provider [phone] Encounter Details Date Type Department Care Team (Late st Contact Info) Description 06/14/2024 Speek Message Enc [place] [facility], [address] [address] Geovani Gonzalez MD [facility]. [address] [address] Ultrasound of mom's abdominal aorta Social History Tobacco Use Types Packs/Day Years Used Date Smoking Tobacco: Never Smokeless Tobacco: Never Alcohol Use Standard Drinks/Week Comments No 0 (1 standard drink = 0.6 oz pur e alcohol) [facility] Utilities Answer Date Recorded In the past 12 months has e electric, gas, oil, or water [employer] threatened to shut off services in your [...] How often do you attend chur or presybeterian services? 1 to 4 times per year 01/08/2024 Do you belong to any clubs o r organizations such as yazdanism groups, unions, fraternal or athletic groups, or [...] and heating? Not hard at all 01/08/2024 [facility] Occupat ional [facility] - Occupational Stress [...] place to sleep or slept in a long-term (including now)? No 01/08/2024 Comments No Sex [...] Assessment Author Status No 01/08/2024 12:59 AM Rocky Claudio RN Active * Are you blind or do you have serious difficulty seeing, even when wearing glasses? Answer Date of Assessment Author Status No 01/08/2024 12:59 AM Rocky Claudio RN Active * Do you have serious difficulty walking or climbing stairs? Answer Date of Assessment Author Status Yes 01/08/2024 12:59 AM CDT Rocky Bloom RN Active * Do you have difficulty dressing or bathing? Answer Date of Assessment Author Status Yes 01/08/2024 12:59 AM CDT Rocky Bloom RN Active * Because of a physical, mental, or emotional condition, do you have difficulty doing errands alone such as visiting a doctor's office or shopping? Answer Date of Assessment Author Status Yes 01/08/2024 12:59 AM CDT Rocky Bloom RN Active documented as of this encounter Mental Status * Because of a physical, mental, or emotional condition, do you have serious difficulty concentrating, remembering, or making decisions? Answer Entry Date Author Status Yes 01/08/2024 12:59 AM CDT Rocky Bloom RN Active documented in this encounter Progress Notes * SHAHLA Le - 06/21/2024 1:37 PM CDT I do not documented in this encounter Plan of Treatment Upcoming Encounters Date Type Department Care Team (Late st Contact Info) Description 10/01/2025 2:30 PM VICE PRESIDENT OF TALENT MANAGEMENT Office Visit [place] [facility], [address] [place], [place] [id number] Cristina Palacios FNP [address] [facility] [address] [place], [place] [id number] documented as of this encounter Goals Goal Patient Goal Type Associated Problems Recent Progress Patient-Stated? Author Family - family caregiver with be involved in care transitions and discharge planning General No Camryn Monet, RESIDENTIAL SUBCONTRACTORcycle specialist - family caregiver with be involved in care transitions and discharge planning General No Pau Jean, RN documented as of this encounter Visit Diagnoses Not on filedocumented in this encounter Additional Health Concerns Infection Onset Date Last Indicated Resolved Time ESBL - Extended Spectrum Bet a-lactamase Comment:Added from external infection.+ESBL Urine BJC 08/23/21 08/23/2021 MRSA Comment:04/20/22 +MRSA Nasal 04/21/2022 07/22/2025 documented as of this encounter Care Teams Operations Processor Relationship Specialty Start Date End Date Carl Maloney MD [address] [place] [address] PCP - General INTERNAL MEDICINE 07/03/24 Geovani [facility] [address] [place] [address] [place] Outsole Flexer CARDIOVASCULAR DISEASE 07/24/16 Enio Centeno DO [address] [place] [address] NEUROLOGY 07/03/24 Josse Alanis MD [address] [place] [address] NEPHROLOGY 07/03/24 Cristofer Schwarz MD [address] [place] [address] Referring Physician NEPHROLOGY 07/03/24 documented as of this encounter
--- OUTSIDE RECORDS SUMMARY | 2025-07-29 16:14 | XMS_ITS | Clinical Summary ---
Author Organization [facility] Address [address] [place] [address] Care Team Providers Care Contracts Director Name Role Phone Geovani Gonzalez MD Unavailable [phone] Enio Centeno DO Unavailable [phone] Josse Alanis MD Unavailable Cristofer Schwarz MD Unavailable [phone] Carl Maloney MD Primary Care Provider [phone] Allergies Active Allergy Reactions Criticality Noted Date Comments Sulfa Antibiotics Unknown 07/28/2021 Bupropion Unknown 04/12/2022 Per CO documentation Medications vitamin B-12 (CYANOCOBALAMIN) 1000 mcg tablet Take 1 tablet (1,000 mcg total) by mouth nightly. Active polyethylene glycol packet Take 240 mLs (17 g total) by mouth daily as needed for Constipation. Dissolve powder in 240 mL water Active NOVOLOG FLEXPEN 100 UNIT/ML injection (PEN) Inject into the skin 2 (two) times daily before meals. Sliding scale BS 200-250 = 4 units BS 251-300 = 6 units BS 301 - 350 = 8 units BS 351 - 400 = 12 units BS 401-500 = 12 units, call MD if greater than 400 022 Active cranberry 500 MG Cap Take 1 tablet (500 mg total) by mouth 3 (three) times daily with meals. Active ferrous sulfate EC 324 (65 Fe) MG tablet Take 1 tablet (324 mg total) by mouth every other day. Takes on Mon, Wed, Fri Active acetaminophen (TYLENOL) 500 MG tablet Take 2 tablets (1,000 mg total) by mouth 2 (two) times a day. Active docusate sodium (COLACE) 100 MG capsule Take 1 capsule (100 mg total) by mouth 2 (two) times daily as needed for Constipation. 30 capsule Active Additional Information Patient taking differently: 200 mgOralNightly, Reported on 07/22/2025 ARIPiprazole (ABILIFY) 2 MG tablet Take 1.5 tablets (3 mg total) by mouth nightly. Active metoprolol tartrate (LOPRESSOR) 25 MG tablet Take 1 tablet (25 mg total) by mouth 2 (two) times daily. Active rosuvastatin (CRESTOR) 10 MG tablet Take 1 tablet (10 mg total) by mouth nightly at bedtime. Active fluconazole (DIFLUCAN) 150 MG tablet Take 1 tablet (150 mg total) by mouth every 7 days. Takes on saturdays Active methylphenidate (RITALIN) 10 MG tablet Take 1 tablet (10 mg total) by mouth 2 (two) times daily. TAKE WITH MEALS BREAKFAST AND LUNCH Active busPIRone (BUSPAR) 5 MG tablet Take 1 tablet (5 mg total) by mouth 3 (three) times daily. Active sertraline (ZOLOFT) 50 MG tablet Take 1 tablet (50 mg total) by mouth daily. Active ELIQUIS 5 MG tablet Take 1 tablet (5 mg total) by mouth 2 (two) times daily. Active Tenapanor HCl, CKD, (XPHOZAH) 30 MG Tab Take 1 tablet by mouth 2 (two) times a day. Active nitroglycerin (NITROSTAT) 0.[address] 1 tablet (0.4 mg total) under the tongue every 5 (five) minutes as needed for Chest Pain. If taking 3rd dose, contact 911 25 tablet 3 Active Cetirizine HCl 10 MG Cap Take 10 mg by mouth daily as needed (Allergies). Active ipratropium-albu terol (DUONEB) 0.5-2.5 (3) MG/3ML Solution Take 3 mLs by nebulization every 4 (four) hours as needed (Shortness of breath). Active Simethicone 125 MG Cap Take 1-2 capsules by mouth see administration instructions. Take 1-2 softgels as needed after meals and at bedtime; max 4 softgels/day Active tiZANidine (ZANAFLEX) 2 MG tablet Take 1 tablet (2 mg total) by mouth every 8 (eight) hours as needed (Muscle spasms). Active traMADol (ULTRAM) 50 MG tablet Take 1 tablet (50 mg total) by mouth every 6 (six) hours as needed for Pain. Active guaiFENesin ER (MUCINEX) 600 MG 12 hr tablet Take 2 tablets (1,200 mg total) by mouth 2 (two) times daily as needed for Congestion. Active miconazole (MONISTAT) 2 % vaginal cream Place 1 applicator vaginally nightly as needed (Fungal infection). Active nystatin (MYCOSTATIN) powder Apply topically 4 (four) times daily as needed (Fungal infection). Active tolnaftate (TINACTIN) 1 % powder Apply topically 2 (two) times daily as needed for Itching. Active ondansetron (ZOFRAN) 4 MG tablet Take 1 tablet (4 mg total) by mouth every 8 (eight) hours as needed for Nausea. 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 1 mL Active cefdinir (OMNICEF) 300 MG Cap capsule Take 1 capsule (300 mg total) by mouth daily for 1 day. 1 capsule 2024 Active doxycycline hyclate (VIBRAMYCIN) 100 MG capsule Take 1 capsule (100 mg total) by mouth every 12 (twelve) hours for 2 days. 4 capsule 2024 Active furosemide (LASIX) 40 MG tabletIndication s:ESRD (end stage renal disease) on dialysis ([facility]) 120 mg BID on nondialysis days (Tuesday, , Tuesday) 30 tablet Active midodrine (PROAMATINE) 10 MG tabletIndication s:Hypotension, unspecified hypotension type 10 mg 2 times per day on dialysis days (Tuesday, Tuesday, Tuesday). First dose in AM before dialysis. Second dose to be given during dialysis. 1 tablet Active BASAGLAR KWIKPEN 100 UNIT/ML injection (PEN) Inject 10 Units into the skin daily. 1 pen 3 022 2024 Discontinued(E rror) zolpidem (AMBIEN) 5 MG tablet Take 1 tablet (5 mg total) by mouth nightly. Takes for hypersomnia 2024 Discontinued(S top Taking at Discharge) ondansetron (ZOFRAN-ODT) 4 MG disintegrating tablet Take 1 tablet (4 mg total) by mouth every 6 (six) hours as needed. 024 2024 Discontinued(E rror) BD PEN NEEDLE LG 2ND GEN 32G X 4 MM Misc daily. 2024 Discontinued(E rror) nystatin (MYCOSTATIN) cream Apply topically 2 (two) times daily as needed for Dry skin. 025 2024 Discontinued(E rror) BD ECLIPSE SYRINGE 25G X 1 3 ML Misc 2024 Discontinued(E rror) Insulin Glargine-yfgn 100 UNIT/ML Solution Pen-injector Inject 25 Units into the skin every morning. 2024 Discontinued dicloxacillin (DYNAPEN) 250 MG capsule Take 1 capsule (250 mg total) by mouth 2 (two) times daily. 2024 Discontinued(E rror) traMADol (ULTRAM) 50 MG tablet Take 1 tablet (50 mg total) by mouth 4 (four) times daily as needed. FOR PAIN 025 2024 Discontinued(E rror) nystatin (MYCOSTATIN) powder Apply topically 2 (two) times daily. 025 2024 Discontinued(E rror) cefdinir (OMNICEF) 300 MG Cap capsule Take 1 capsule (300 mg total) by mouth daily for 1 day. 1 capsule 025 2024 Discontinued doxycycline hyclate (VIBRAMYCIN) 100 MG capsule Take 1 capsule (100 mg total) by mouth every 12 (twelve) hours for 2 days. 4 capsule 025 2024 Discontinued furosemide (LASIX) 40 MG tabletIndication s:ESRD (end stage renal disease) on dialysis ([facility]) 120 mg BID on nondialysis days (Tuesday, , Tuesday) 30 tablet 025 2024 Discontinued midodrine (PROAMATINE) 10 MG tabletIndication s:Hypotension, unspecified hypotension type 10 mg 2 times per day on dialysis days (Tuesday, Tuesday, Tuesday). First dose in AM before dialysis. Second dose to be given during dialysis. 1 tablet 025 2024 Discontinued Active Problems Problem Noted Date Diagnosed Date Severe sepsis ([facility]) 07/23/2025 Severe sepsis due to Strepto coccus pneumoniae with acute organ dysfunction ([facility]) 07/22/2025 Dependence on renal dialysis 01/24/2025 joint terminal attack controller (current) use of anticoagulants 2024 Other thrombophilia ([facility]) 08/24/2024 Anemia in chronic kidney disease 08/23/2024 Hyperparathyroidism due to renal insufficiency ( [facility]) 08/23/2024 Hypertensive kidney disease, stage V ([facility]) 08/23/2024 Immunologic deficiency syndrome ([facility]) 2023 Mild cognitive impairment 08/14/2024 ESRD (end stage renal diseas e) on dialysis ([facility]) 06/19/2024 Hypertensive urgency 01/13/2024 RICKIE (acute kidney injury) 09/12/2022 CKD (chronic kidney disease), stage IV ([facility]) 09/09/2022 Diabetes ([facility]) 09/09/2022 [id number] kidney injury 09/09/2022 Acute exacerbation of CHF (c ongestive heart failure) ([facility]) 05/18/2022 Complicated UTI (urinary tract infection) 06/21/ 2022 UTI (urinary tract infection) 04/12/2022 Mixed hyperlipidemia 11/03/2021 Pulmonary hypertension, unspecified ([facility]) 11/03/2021 Abnormal gait 06/18/2021 Acute respiratory failure with hypoxemia ([facility]) 06/18/2021 Asthenia 06/18/2021 Atherosclerosis of coronary artery without angin a pectoris 06/18/2021 Heart failure ([facility]) 06/18/2021 Cognitive communication disorder 06/18/2021 Incoordination 06/18/2021 Malignant neoplasm of breast ([facility]) 0 06/18/2021 Dyslipidemia 04/03/2018 Nonrheumatic aortic valve insufficiency 08/09/20 16 Chronic diastolic heart failure ([facility] ) 07/16/2016 Hypertension, essential Heart attack ([facility]) A-fib ([facility]) Encounters Date Type Department Care Team Description 07/29/2025 MyChart Message Enc [facility] [address] [address] Geovani Gonzalez MD Blood pressure/afib 07/29/2025 MyChart Message Enc [facility] [address] [address] Nikhil Lamas MD appointment 07/25/2025 MyChart Message Enc [facility] [address] [address] Geovani Gonzalez MD Liver enzymes/values 07/24/2025 MyChart Message Enc [facility], [address] [address] Geovani Gonzalez MD Chest dialysis access 07/22/2025 11:19 AM CDT - 07/28/2025 12:35 PM CDT Hospital Encounter [facility] [place] [address] Jose Guevara MD D'Souza, MD John Rice, Dutch Zapata, MD العراقي, Rui Gay, MD Morton, Sandra Coleman, SAFETY INTERN Chris, Homer R, TALENT DEVELOPMENT MANAGER Altered Mental Status Discharge Disposition: [facility]pc Facility 07/22/2025 Travel 07/22/2025 Telephone [facility] [address] Cristina Palacios, CONTROLLER MECHANIC Concerns 07/16/2025 9:30 AM CDT Hospital Encounter [facility] [place] [phone] Nikhil Lamas MD Discharge Disposition: Home or Self Care (Routine Discharge) 07/16/2025 9:30 AM CDT - 07/16/2025 1:40 PM CDT Hospital Encounter [facility] [place] [address] Nikhil Lamas MD Discharge Disposition: Home or Self Care (Routine Discharge) 07/16/2025 Travel 07/12/2025 Orders Only [facility] [place] [address] Nikhil Lamas MD 06/21/2025 Telephone [facility] [address] [address] Nikhil Lamas MD Schedule Procedure (LUE FISTULAGRAM) 06/21/2025 Prep for Procedure [facility] [address] [address] Nikhil Lamas MD 06/21/2025 Orders Only [facility] [place] [address] Sonia Leon MA 06/21/2025 Orders Only [facility], [address] [address] Nikhil Lamas MD from Last 3 Months Immunizations Immunization Administration Dates Next Due Fluzone High Dose - >Age 65 (Prefilled Syringe) 08/18/2020,08/21/2019,08/29/2018,2016,08/31/2016 Hepatitis B (Generic: Adult) 12/19/2024, 08/17/2024,07/13/2024,2023 Influenza (FluMist) 08/01/2013 Influenza (Generic) 08/15/2024, 6,09/01/2016,2015 Influenza Adult (Generic) 07/24/2019,08/01/2016 MODERNA COVID-19 (12+) MRNA, LNP-S, PF, 100 MCG/ 0.5 ML DOSE 01/02/2021,12/05/2020 Pneumococcal (Generic) 09/01/2016 Pneumococcal (Prevnar 13) 09/29/2016,08/31/2016, 08/01/2016 Pneumococcal (Prevnar 20) 11/12/2024 Pneumococcal (Prevnar 7) 05/31/2017 Family History Medical History Relation Comments Stroke Brother Diabetes Father Ovarian Cancer Mother Hypertension Sister Stroke Sister brain aneurysm Sister Relation Status Comments Brother Father Mother Sister Social History Tobacco Use Types Packs/Day Years Used Date Smoking Tobacco: Never Smokeless Tobacco: Never Tobacco Cessation:Counseling Given: Not Answered Alcohol Use Standard Drinks/Week Comments No 0 (1 standard drink = 0.6 oz pur e alcohol) [facility] Utilities Answer Date Recorded In the past 12 months has e [employer], gas, oil, or water [employer] threatened to shut off services in your [...] How often do you attend chur or quaker services? 1 to 4 times per year 01/08/2024 Do you belong to any clubs o r organizations such as faith groups, unions, fraternal or athletic groups, or [...] and heating? Not hard at all 07/23/2025 [facility] [place] of Occupat ional Health - Occupational Stress [...] any time in the past 12 m [facility], were you homeless or living in a [...] file Not on file Not on file Last Filed Vital Signs Vital Sign Reading [...] Mass Index 45.05 07/22/2025 11:23 AM CDT Plan of Treatment Upcoming Encounters Date Type Department Care Team (Late st Contact Info) Description 10/01/2025 2:30 PM SIDE SEAM TENDER Office Visit [facility], [address], [place] [id number] Cristina Palacios FNP [address] [facility] [address] [place], [place] [id number] Health Maintenance Due Date Last Done Comments Diabetes: Retinopathy Eye Exam 1963 DTaP, Tdap and Td Vaccines (1 - Tdap) 1966 Annual Medicare Wellness Visit 2012 RSV Immunization or 60+ Years (1 - 1-dose 75+ series) 2022 ASCVD LDL 05/19/2023 05/19/2022, 10/24, 02/12/2020, Additional history exists Lipid Panel 05/19/2023 05/19/2022, 10/24, 06/23/2020, Additional history exists Zoster Vaccines (2 of 2) 12/21/2023 10/26/2023 COVID-19 Vaccine (7 - Mixed Product risk season) 2025 09/14/2024, 01/05/2024, 07/29/2022, Additional history exists Influenza Adult (#1) 2025 08/15/2024, 08/30/2023, 08/18/2020, Additional history exists Hemoglobin A1C 01/20/2026 07/23/2025, 12/22, 01/08/2024, Additional history exists Dexa Scan (General) Completed 08/14/2020, 06/16/2018, 06/16/2018 Hepatitis C Completed 05/20/2022 Pneumococcal Vaccine: 50+ Years Completed 11/12/2024, 05/31/2017, 09/29/2016, Additional history exists Meningococcal B Vaccine Aged Out No l onger eligible based on patient's age to complete this topic Meningococcal Vaccine Aged Out No sonam meron eligible based on patient's age to complete this topic RSV Immunizations Under 20 Months Aged Out No longer eligible based on patient's age to complete this topic Goals Goal Patient Goal Type Associated Problems Recent Progress Patient-Stated? Author Family - family caregiver with be involved in care transitions and discharge planning General No Camryn Monet, PACKAGE LIFT OPERATORhead automatic sawyer - family caregiver with be involved in care transitions and discharge planning General No [place], asphalt tamper - family caregiver with be involved in care transitions and discharge planning Lifestyle No Lulu Perera, RN Medical Devices Implanted Type Area Studio Musician Device Identifier Shelf Expiration Date Model / Serial / Lot Graft Gortex 45 Access Stnd Wall Stretch 4-7mm - [id number] Implanted:Qty : 1 on 07/10/2024 by Nikhil Lamas MD at [facility] Graft Left: Arm [employer] [id number] 02/12/2028 [id number] / [id number] / Procedures Procedure Name Priority Date/Time Associated Diagnosis Comments POCT GLUCOSE - DOCKED DEVICE Routine 07/28/2025 11:06 AM CDT POCT GLUCOSE - DOCKED DEVICE Routine 07/28/2025 6:01 AM CDT COMPREHENSIVE METABOLIC PANEL Routine 07/28/2025 4:33 AM CDT CBC W/DIFF AUTOMATED Routine 07/28/2025 4:33 AM CDT PROCALCITONIN (PCT) Routine 07/28/2025 4 :33 AM CDT POCT GLUCOSE - DOCKED DEVICE Routine 07/27/2025 8:30 PM CDT POCT GLUCOSE - DOCKED DEVICE Routine 07/27/2025 6:49 PM CDT POCT GLUCOSE - DOCKED DEVICE Routine 07/27/2025 12:38 PM CDT POCT GLUCOSE - DOCKED DEVICE Routine 07/27/2025 12:03 PM CDT COMPREHENSIVE METABOLIC PANEL Routine 07/27/2025 6:36 AM CDT CBC W/DIFF AUTOMATED Routine 07/27/2025 6:36 AM CDT PROCALCITONIN (PCT) Routine 07/27/2025 6 :36 AM CDT POCT GLUCOSE - DOCKED DEVICE [...] DOCKED DEVICE Routine 07/26/2025 6:08 AM CDT FOLIC ACID SERUM Routine 07/26/2025 5:49 AM CDT VITAMIN B-12 Routine 07/26/2025 5:49 AM CDT FERRITIN Routine 07/26/2025 5:49 AM CDT IRON SAT PANEL (IRON,IBC,%SAT) Routine 07/26/2025 5:49 AM CDT VANCOMYCIN Routine 07/26/2025 5:49 AM CDT COMPREHENSIVE METABOLIC PANEL Routine 07/26/2025 5:49 AM CDT CBC W/DIFF AUTOMATED Routine 07/26/2025 5:49 AM CDT PROCALCITONIN (PCT) Routine 07/26/2025 5 :49 AM CDT POCT GLUCOSE - DOCKED DEVICE Routine 07/25/2025 8:18 PM CDT POCT GLUCOSE - DOCKED DEVICE Routine 07/25/2025 3:36 PM CDT POCT GLUCOSE - DOCKED DEVICE Routine 07/25/2025 2:13 PM CDT POCT GLUCOSE - DOCKED DEVICE Routine 07/25/2025 11:24 AM CDT COMPREHENSIVE METABOLIC PANEL Routine 07/25/2025 6:01 AM CDT CBC W/DIFF AUTOMATED Routine 07/25/2025 6:01 AM CDT PROCALCITONIN (PCT) Routine 07/25/2025 6 :01 AM CDT POCT GLUCOSE - DOCKED DEVICE [...] DOCKED DEVICE Routine 07/24/2025 6:18 AM CDT VANCOMYCIN Routine 07/24/2025 5:53 AM CDT PHOSPHORUS, INORGANIC PHOSPHATE Routine 07/24/2025 5:53 AM CDT COMPREHENSIVE METABOLIC PANEL Routine 07/24/2025 5:53 AM CDT CBC W/DIFF AUTOMATED Routine 07/24/2025 5:53 AM CDT PROCALCITONIN (PCT) Routine 07/24/2025 5 :53 AM CDT POCT GLUCOSE - DOCKED DEVICE Routine 07/23/2025 8:23 PM CDT XR FOOT RT 2V Today 07/23/2025 5:48 PM CDT POCT GLUCOSE - DOCKED DEVICE Routine 07/23/2025 3:54 PM CDT USE ECHOCARDIOGRAM W CON Today 07/23/2025 2:34 PM CDT THYROID STIM HORMONE TSH Routine 07/23/2025 5:42 AM CDT HEMOGLOBIN, GLYCOSYLATED Routine 07/23/2025 5:42 AM CDT MAGNESIUM Routine 07/23/2025 5:42 AM CDT COMPREHENSIVE METABOLIC PANEL Routine 07/23/2025 5:42 AM CDT CBC W/DIFF AUTOMATED Routine 07/23/2025 5:42 AM CDT PROCALCITONIN (PCT) Routine 07/23/2025 5 :42 AM CDT MRSA SCREENING STAT 07/22/2025 11:15 PM CDT LEGIONELLA AG URINE STAT 07/22/2025 5 :13 PM CDT URINE BACTERIA CULTURE STAT 5:13 PM CDT HC URINALYSIS AUTO W/O MICRO STAT 07/22/2025 5:13 PM CDT LACTIC ACID W REFLEX (SEPSIS) TIMED 07/22/2025 4:33 PM CDT USV CLINT DUPLEX LOW EXT JONATAN STAT 07/22/2025 3:[address] CHEST W CON STAT 07/22/2025 3:22 PM CDT HISTOPLASMA ANTIBODY STAT 07/22/2025 2:37 PM CDT HC MYCOPLASMA AB-90 STAT 07/22/2025 2 :37 PM CDT HEPATITIS B POST-VACCINE ANTIBODY STAT 07/22/2025 2:37 PM CDT HEPATITIS B SURFACE AG, EIA STAT 07/22/2025 2:37 PM CDT TROPONIN, QUANT STAT 07/22/2025 1:38 PM CDT LACTIC ACID W REFLEX (SEPSIS) TIMED 07/22/2025 1:[address] HEAD WO CON STAT 07/22/2025 12:27 PM CDT XR CHEST PORTABLE STAT 07/22/2025 12: 02 PM CDT ECG 12-LEAD STAT 07/22/2025 11:45 AM CDT LACTIC ACID W REFLEX (SEPSIS) STAT 07/22/2025 11:37 AM CDT CULTURE, BACTERIA, BLOOD STAT 07/22/2025 11:27 AM CDT CULTURE, BACTERIA, BLOOD STAT 07/22/2025 11:27 AM CDT MAGNESIUM Routine 07/22/2025 11:27 AM CDT TROPONIN, QUANT Routine 07/22/2025 11:27 AM CDT COMPREHENSIVE METABOLIC PANEL STAT 07/22/2025 11:27 AM CDT CBC W/DIFF AUTOMATED STAT 07/22/2025 11:27 AM CDT BASIC METABOLIC PANEL Routine 07/16/2025 9:43 AM CDT ESRD (end stage renal disease) on dialysis ([facility]) HEPATITIS C ANTIBODY Routine 05/20/2022 5:39 AM CDT LIPID PANEL Routine 05/19/2022 7:15 AM CDT BONE DENSITY GENERIC (SCAN ORDER) Routine 08/14/2020 from Last 3 Months or Most Recently Relevant to Health Maintenance Results * (ABNORMAL) POCT glucose (07/28/2025 11:06 AM CDT) Only the most recent of22 resultswithin the time period is included. [facility] GLUCOSE POC 218(H) 70 - 99 mg/dL 07/28/2025 11:18 AM CDT [facility] 07/28/2025 11:0 6 AM CDT us Homer Perez TALENT DEVELOPMENT MANAGER POCT ORDERABLES - DEVICE Final Result [facility] [address] [place] [address], * (ABNORMAL) PROCALCITONIN (PCT) (07/28/2025 4:33 AM CDT) Only the most recent of6 resultswithin the time period is included. [facility] PROCALCITONIN 0.78(H) 0.00 - 0.49 NG/ML 07/28/2025 5:23 AM CDT [facility] 07/28/2025 4:33 AM CDT Ana GARCIA LABORATORY Final Result [facility] [address] [place] [address], [place] [phone] * (ABNORMAL) COMPREHENSIVE METABOLIC PANEL (07/28/2025 4:33 AM CDT) Only the most recent of7 resultswithin the time period is included. [facility] GLUCOSE 165(H) 70 - 99 MG/DL 07/28/2025 5:15 AM CDT [facility] BUN 40(H) 7 - 18 MG/DL 07/28/2025 5:15 AM CDT [facility] CREATININE S/P/B 4.19(H) 0.55 - 1.02 MG/DL 07/28/2025 5:15 AM CDT [facility] SODIUM S/P/B 136 136 - 145 MMOL/L 07/28/2025 5:15 AM CDT [facility] POTASSIUM S/P/B 4.6 3.5 - 5.1 MMOL/L 07/28/2025 5:15 AM CDT [facility] CHLORIDE S/P/B 106 97 - 115 MMOL/L 07/28/2025 5:15 AM CDT [facility] CO2 21.5 21 - 32 MMOL/L 07/28/2025 5:15 AM CDT [facility] CALCIUM S/P/B 10.0 8.5 - 10.1 MG/DL 07/28/2025 5:15 AM CDT [facility] BILIRUBIN TOTAL S/P/B 0.6 0.2 - 1.2 MG/DL 07/28/2025 5:15 AM [facility] Comment: THIS ASSAY IS NOT RECOMMENDED FOR PATIENTS UNDERGOING TREATMENT WITH ELTROMBOPAG DUE TO THE POTENTIAL FOR FALSELY ELEVATED RESULTS. TOTAL PROTEIN S/P/B 6.9 6.4 - 8.2 G/DL 07/28/2025 5:15 AM [facility] ALBUMIN S/P/B 2.4(L) 3.4 - 5.0 G/DL 07/28/2025 5:15 AM [facility] AST 33 15 - 37 U/L 07/28/2025 5:15 AM [facility] ALT 76(H) 14 - 55 U/L 07/28/2025 5:15 AM [facility] ALKALINE PHOSPHATASE S/P/B 205(H) 50 - 136 U/L 07/28/2025 5:15 AM [facility] ANION GAP 8.5 2 - 10 MMOL/L 07/28/2025 5:15 AM [facility] BUN CREATININE RATIO 9.5 6 - 26 07/28/2025 5:15 AM [facility] A/G RATIO 0.5(L) 1.0 - 2.0 RATIO 07/28/2025 5:15 AM [facility] GFR ESTIMATE 10(L) >90 ML/MIN/1.7 3 M2 07/28/2025 5:15 AM [facility] Comment: NOTE: eGFR is not calculated for patients <18 years of age or gender unknown. This is an estimated GFR calculation using the new CKD EPI creatinine equation without race and so does not require a correction factor for race. This estimated GFR should not be used for calculating drug doses. 07/28/2025 4:33 AM CDT Sandra Morton NP LABORATORY Final Result [facility] [address] [place] [address], [place] [phone] * (ABNORMAL) CBC W/DIFF AUTOMATED (07/28/2025 4:33 AM CDT) Only the most recent of7 resultswithin the time period is included. Pathologist [facility] WBC 6.25 4.5 - 11.0 x10'3/uL 07/28/2025 4:54 AM CDT [facility] RBC 3.37(L) 4.20 - 5.40 x10'6/uL 07/28/2025 4:54 AM CDT [facility] HGB 10.0(L) 12.0 - 16.0 G/DL 07/28/2025 4:54 AM CDT [facility] HCT 34.8(L) 38.0 - 48.0 % 07/28/2025 4:54 AM CDT [facility] MCV 103.3(H) 81.0 - 99.0 FL 07/28/2025 4:54 AM CDT [facility] MCH 29.7 27.0 - 31.0 PG 07/28/2025 4:54 AM CDT [facility] MCHC 28.7(L) 32.0 - 36.0 G/DL 07/28/2025 4:54 AM CDT [facility] RDW 17.0(H) 11.5 - 14.5 % 07/28/2025 4:54 AM CDT [facility] PLT 211 130 - 400 x10'3/uL 07/28/2025 4:54 AM CDT [facility] MPV 10.5 9.3 - 12.2 FL 07/28/2025 4:54 AM CDT [facility] DIFFERENTIAL TYPE AUTOMATED DIFFERENTIAL 07/28/2025 5:39 AM CDT [facility] NEUTROPHILS % 74.3 % 07/28/2025 5:39 AM CDT [facility] LYMPHOCYTES % 11.8 % 07/28/2025 5:39 AM CDT [facility] [facility] MONOCYTES % 9.8 % 07/28/2025 5:39 AM CDT [facility] EOSINOPHILS 2.9 % 07/28/2025 5:39 AM CDT [facility] BASOPHILS 0.6 % 07/28/2025 5:39 AM CDT [facility] IMMATURE GRANS % 0.6 % 07/28/20 5:39 AM T [facility] ABS. NEUTROPHILS 4.64 1.80 - 7.70 x10'3/uL 07/28/2025 5:39 AM T [facility] ABS. LYMPHOCYTES 0.74(L) 1.00 - 4.80 x10'3/uL 07/28/2025 5:39 AM T [facility] ABS. MONOCYTES 0.61 0.24 - 0.86 x10'3/uL 07/28/2025 5:39 AM CDT [facility] ABS. EOSINOPHILS 0.18 0.04 - 0.36 x10'3/uL 07/28/2025 5:39 AM CDT [facility] ABS. BASOPHILS 0.04 0.01 - 0.08 x10'3/uL 07/28/2025 5:39 AM T [facility] ABS. IMMATURE GRANULOCYTES 0.04 0.00 - 0.49 x10'3/uL 07/28/2025 5:39 AM T [facility] RBC MORPHOLOGY SLIDE REVIEWED 2024 5:39 AM CDT [facility] HYPOCHROMASIA 1+ 07/28/2025 5:39 AM CDT [facility] PLT EST. ADEQUATE 07/28/2025 5:39 AM CDT [facility] 07/28/2025 4:33 AM CDT Sandra Morton SAFETY INTERN LABORATORY Final Result [facility] [address] [place] [address], [place] [phone] * AMMONIA (07/26/2025 2:21 PM CDT) AMMONIA 27 11 - 32 UMOL/L 07/26/2025 4:07 PM CDT [facility] 07/26/2025 2:21 PM CDT Sandra Morton SAFETY INTERN LABORATORY Final Result [facility] [address] [place] [address], [place] [phone] * CT HEAD WO CON (07/26/2025 1:31 PM CDT) Only the most recent of2 resultswithin the time period is included. Anatomical Region Laterality Modality Head Computed Tomogra phy 07/26/2025 1:45 PM CDT Impressions 07/26/2025 1:46 PM CDT IMPRESSION: Stable head CT. No acute findings Ordered By: SANDRA MORTON Interpreted By: Harry Milton MD, 07/26/2025 1:45 PM Narrative 07/26/2025 1:[address] [address] [address] HEAD WITHOUT CONTRAST Exam date: 07/26/2025 [...] Note Harry Milton MD - 07/26/[address] [address] [address] HEAD WITHOUT CONTRAST Exam date: 07/26/2025 [...] head CT. No acute findings Ordered By: SANDRA MORTON Interpreted By: Harry Milton MD, 07/26/2025 1:45 PM Sandra Morton SAFETY INTERN CT Final Result * (ABNORMAL) IRON SAT PANEL (IRON,IBC,%SAT) (07/26/2025 5:49 AM CDT) IRON 48(L) 50.0 - 170.0 MCG/DL 07/26/2025 7:23 AM CDT [facility] IRON BINDING CAPACITY 301 250 - 450 MCG/DL 07/26/2025 7:23 AM CDT [facility] IRON SATURATION 16(L) 20 - 55 % 7:23 AM CDT [facility] 07/26/2025 5:49 AM CDT Sandra Morton SAFETY INTERN LABORATORY Final Result [facility] [address] [place] [address], * (ABNORMAL) VITAMIN B-12 (07/26/2025 5:49 AM CDT) VITAMIN B12 S/P/B 2,542(H) 254 - 1,320 PG/ML 07/26/2025 2:51 PM CDT [facility] 07/26/2025 5:49 AM CDT Sandra Morton SAFETY INTERN LABORATORY Final Result [facility] [address] [place] [address], * FOLIC ACID SERUM (07/26/2025 5:49 AM CDT) FOLATE 13.5 3.1 - 17.5 NG/ML 07/26/2025 2:51 PM CDT [facility] 07/26/2025 5:49 AM CDT us Sandra Morton SAFETY INTERN LABORATORY Final Result Performing Organization Address City/[facility] Co de Phone Number [facility] [address] [place] [address], [place] [phone] * Vancomycin Random Level (07/26/2025 5:49 AM CDT) Only the most recent of2 resultswithin the time period is included. Pathologist [facility] VANCOMYCIN RANDOM 21.7 MCG/ML 07/26/2025 7:14 AM CDT [facility] Comment:NO THERAPEUTIC RANGE AVAILABLE LAST DOSE UNKNOWN LAST DOSE 07/26/2025 9:08 AM CDT [facility] 07/26/2025 5:49 AM CDT us Sandra Morton SAFETY INTERN LABORATORY Final Result Performing Organization Address [facility] de Phone Number [facility] [address] [place] [address], [place] [phone] * (ABNORMAL) FERRITIN (07/26/2025 5:49 AM CDT) FERRITIN 1,475.2(H) 8.0 - 388.0 NG/ML 07/26/2025 7:14 AM CDT [facility] 07/26/2025 5:49 AM CDT us Sandra Morton SAFETY INTERN LABORATORY Final Result [facility] [address] [place] [address], [place] [phone] * USV ART REST W BURAK LOW EXT (07/24/2025 3:50 PM CDT) Anatomical Region Laterality Modality Extremity Vascular Ultraso und 07/24/2025 3:07 PM CDT Narrative 07/26/2025 7:39 AM CDT ARTERIAL DOPPLER - BURAK BILATERAL LOWER EXTREMITY VASCULAR LAB Pat.Name: ZANDER BARRIENTOS Pat.ID: [id number] .Date: 07/24/2025 Exam Time: 3:07:00 PM Study [...] 0 <Electronic Signature> 07/26/2025 07:39 AM Nikhil Lamas M.D. Procedure Note Nikhil Lamas MD - 07/26/2025 ARTERIAL DOPPLER - BURAK BILATERAL LOWER EXTREMITY VASCULAR LAB Pat.Name: ZANDER BARRIENTOS Pat.ID: [id number] .Date: 07/24/2025 Exam Time: 3:07:00 PM Study [...] 0 <Electronic Signature> 07/26/2025 07:39 AM Nikhil Lamas M.D. Sandra Morton NP VASC Final Result * (ABNORMAL) PHOSPHORUS, INORGANIC PHOSPHATE (07/24/2025 5:53 AM CDT) PHOSPHORUS 7.4(H) 2.5 - 4.9 MG/DL 07/24/2025 7:00 AM CDT [facility] 07/24/2025 5:53 AM CDT Dutch Lopez MD LABORATORY Final Result [facility] [address] [place] [address], [place] [phone] * XR FOOT RT 2V (07/23/2025 5:48 [...] 2:12 AM Narrative 07/24/2025 2:16 AM CDT [facility] [address] [place], [place] [address] Examination: XR FOOT RT 2V Exam time: [...] Procedure Note Jac Lara DO - 07/24/2025 [facility] [address] [place], [place] [address] Examination: XR FOOT RT 2V Exam time: [...] By: Jac Lara DO, 07/24/2025 2:12 AM Dutch Lopez MD GENERAL IMAGING Final Result * USE ECHOCARDIOGRAM W CON (07/23/2025 2:34 PM CDT) Anatomical Region Laterality Modality NA Echocardiogram 07/23/2025 1:08 PM CDT Narrative 07/23/2025 3:59 PM CDT Echocardiography Report Pat.Name: ZANDER BARRIENTOS Pat.ID: [id number] .Date: 07/23/2025 Exam Time: 1:08:00 PM Study Type:ECHO WITH CARDIAC DOPPLER COMP Height: 66 in Weight: 270 lb BSA: 2.27 m2 Age: 9 1945,80Y Sex: F BP: 109/52 HR: 107 bpm Sonogrphr: Whitney Velazquez [facility] Pat. Stat.:Inpatient Room: [facility] Reason for Study:Congestive heart failure History / [...] 45.6 mm Right Ventricle 38.3 mm Major Lyerly 68.2 mm MMODE TA Tricuspid Annul 15.2 mm <Electronic Signature> 07/23/2025 03:59 PM Geovani Gonzalez M.D. Procedure Note Geovani Gonzalez MD - 07/23/2025 Echocardiography Report Pat.Name: ZANDER BARRIENTOS Anabel Pat.ID: [id number] .Date: 07/23/2025 Exam Time: 1:08:00 PM Study Type:ECHO WITH CARDIAC DOPPLER COMP Height: 66 in Weight: 270 lb BSA: 2.27 m2 Age: 9 1945,80Y Sex: F BP: 109/52 HR: 107 bpm Sonogrphr: Whitney Velazquez RDCS Pat. Stat.:Inpatient Room: 441 Reason for Study:Congestive [...] 45.6 mm Right Ventricle 38.3 mm Major Lyerly 68.2 mm MMODE TA Tricuspid Annul 15.2 mm <Electronic Signature> 07/23/2025 03:59 PM Geovani Gonzalez M.D. Ana GARCIA ECHO Final Result * (ABNORMAL) HEMOGLOBIN, GLYCATED (07/23/2025 5:42 AM CDT) HGB A1C 7.4(H) <5.7 % 07/23/2025 9:51 AM CDT [facility] Comment: ADA GUIDELINES 2010 5.7 TO 6.4% INCREASED RISK OF DIABETES > OR = 6.5% CONSISTENT WITH DIABETES ESTIMATED AVG GLUCOSE 166 mg/dL 07/23/2025 9:51 AM CDT [facility] 07/23/2025 5:42 AM CDT [facility] LABORATORY Final Result [facility] [address] [place] [address], * THYROID STIM HORMONE, TSH (07/23/2025 5:42 AM CDT) Pathologist [facility] TSH 2.910 0.358 - 3.74 uIU/ML 07/23/2025 6:57 AM CDT [facility] Comment: HIGH DOSES OF BIOTIN MAY INTERFERE WITH THIS TEST RESULT. CORRELATION TO CLINICAL HISTORY AND PRESENTATION RECOMMENDED. 07/23/2025 5:42 AM CDT [facility] LABORATORY Final Result Performing Organization Address City/[facility]/ZIP Co de Phone Number [facility] [address] [place] [address], [place] [phone] * MAGNESIUM (07/23/2025 5:42 AM CDT) Only the most recent of2 resultswithin the time period is included. Pathologist [facility] MAGNESIUM 1.9 1.8 - 2.4 MG/DL 07/23/2025 6:57 AM CDT [facility] 07/23/2025 5:42 AM CDT [facility] LABORATORY Final Result [facility] [address] [place] [address], * (ABNORMAL) MRSA screening (07/22/2025 11:15 PM CDT) Pathologist [facility] SPEC DESCRIPTION NASAL 07/22/2025 11:13 PM CDT [facility] SPECIAL REQUESTS NO SPECIAL REQUEST 07/22/2025 11:13 PM CDT [facility] CULTURE RESULT METHICILLIN RESISTANT STAPHYLOCOCCUS AUREUS ISOLATED(AA) 07/24/2025 6:32 AM CDT [facility] CULTURE RESULT CALLED TO AND REPEATED BACK BY KAYLA RAY RN AT 0630 ON 07/24/25 YUDY 07/24/2025 6:32 AM CDT [facility] SPECIMEN FROM INTERNAL NOSE / Unknown 07/22/2025 11:15 PM CDT 07/22/2025 11:28 PM CDT Ana GARCIA MICROBIOLOGY - GENERAL ORDERABL ES Final Result Performing Organization Address City/[facility]/ZIP Co de Phone Number [facility] [address] [place] [address], [place] [phone] * LEGIONELLA AG URINE (07/22/2025 5:13 PM CDT) LEGIONELLA ANTIGEN (URINE) NEGATIVE NEGATIVE 07/23/2025 6:01 PM CDT [facility] URINE SPECIMEN / Unknown 07/22/2025 5:13 PM CDT Ana GARCIA MICROBIOLOGY - GENERAL ORDERABL ES Final Result [facility] [address] [place] [address], [place] [phone] * (ABNORMAL) URINALYSIS (07/22/2025 5:13 PM CDT) SPECIMEN TYPE URINE STRAIGHT CATH 07/22/2025 5:13 PM CDT [facility] COLOR (U) ORANGE 07/22/2025 5:34 PM CDT [facility] TRANSPARENCY EXTREMELY TURBID 07/22/2025 5:34 PM CDT [facility] SPECIFIC GRAVITY (U) 1.018 1.001 - 1.030 07/22/2025 5:34 PM T [facility] U PH 6.5 5.0 - 9.0 07/22/2025 5:34 PM T [facility] LEUKOCYTES (U) 500(A) NEGATIVE 07/22/2025 5:34 PM CDT [facility] NITRITES NEGATIVE NEGATIVE 07/22/2025 5:34 PM T [facility] PROTEIN RANDOM (U) 200(H) <30 MG/DL 07/22/2025 5:34 PM T [facility] GLUCOSE (U) 50(A) NORMAL MG/DL 07/22/2025 5:34 PM CDT [facility] KETONES MG/DL (U) NEGATIVE NEGATIVE MG/DL 07/22/2025 5:34 PM T [facility] UROBILINOGEN NORMAL NORMAL MG/DL 07/22/2025 5:34 PM T [facility] BILIRUBIN (U) NEGATIVE NEGATIVE MG/DL 07/22/2025 5:34 PM T [facility] BLOOD (U) 3+(A) NEGATIVE 07/22/2025 5:34 PM T [facility] WBC/HPF >100(H) <6 /HPF 07/22/2025 5:34 PM CDT [facility] WBC CLUMPS PRESENT 07/22/2025 5:34 PM T [facility] RBC/HPF >100(H) <6 /HPF 07/22/2025 5:34 PM T [facility] SQUAMOUS EPITHELIALS MODERATE /HPF 07/22/2025 5:34 PM T [facility] URINE, STRAIGHT CATH 07/22/2025 5:13 PM CDT Jose Guevara MD URINE ORDERABLES Final Result Performing Organization Address City/[facility]/ZIP Co de Phone Number [facility] [address] [place] [address], [place] [phone] * (ABNORMAL) CULTURE URINE (07/22/2025 5:13 PM CDT) SPEC DESCRIPTION URINE STRAIGHT CATH 07/22/2025 5:14 PM CDT [facility] SPECIAL REQUESTS NO SPECIAL REQUEST 07/22/2025 5:14 PM CDT [facility] CULTURE RESULT 1,000-9,000 COL/ML ETIENNE ALBICANS SUSCEPTIBILTY NOT ROUTINELY PERFORMED. SAVING ISOLATE FOR 5 DAYS. CONTACT MICROBIOLOGY DEPARTMENT IF FURTHER WORKUP IS INDICATED. (A) 07/24/2025 6:57 AM CDT [facility] URINE SPECIMEN OBTAINED BY SINGLE CATHETERIZATION OF URINARY BLADDER / Unknown 07/22/2025 5:13 PM CDT 07/22/2025 5:19 PM CDT Jose Guevara MD MICROBIOLOGY - GENERAL ORDERA BLES Final Result Performing Organization Address City/[facility] Co de Phone Number [facility] [address] [place] [address], [place] [phone] * LACTIC ACID W REFLEX (SEPSIS) (07/22/2025 4:33 PM CDT) Only the most recent of3 resultswithin the time period is included. LACTIC ACID VENOUS 2.0 0.4 - 2.0 MMOL/L 07/22/2025 5:08 PM CDT [facility] 07/22/2025 4:33 PM CDT us Jose Guevara MD LABORATORY Final Result [facility] [address] [place] [address], * USV CLINT DUPLEX LOW EXT JONATAN (07/22/2025 3:51 PM CDT) Anatomical Region Laterality Modality Extremity Vascular Ultraso und 07/22/2025 3:33 PM CDT Narrative 07/23/2025 9:59 PM CDT VENOUS DUPLEX IMAGING BILATERAL LOWER EXTREMITY VASCULAR LAB Pat.Name: ZANDER BARRIENTOS Anabel Garg.ID: [id number] .Date: 07/22/2025 Zulma.: [id number], Live zhang Exam Time: 3:33:00 PM Study [...] patient. <Electronic Signature> 07/23/2025 09:59 PM Nikhil Lamas M.D. Procedure Note Nikhil Lamas MD - 07/23/2025 VENOUS DUPLEX IMAGING BILATERAL LOWER EXTREMITY VASCULAR LAB Pat.Name: ZANDER BARRIENTOS Pat.ID: [id number] .Date: 07/22/2025 Refer.MD: [id number], [facility] Exam Time: 3:33:00 PM Study Type:SHANON VS Venous Duplex Legs JONATAN Height: 67 in Age: 9 1945,80Y Sex: F Sonogrphr: Best Eddy, JAMES, RVT History / Clinical:BLE edema Procedures: Linda [...] patient. <Electronic Signature> 07/23/2025 09:59 PM Nikhil Lamas M.D. us Ana GARCIA [facility] Final Result * CT CHEST W CON [...] PM Narrative 07/22/2025 4:[address] [address] EXAMINATION: CTA CHEST. PULMONARY EMBOLUS PROTOCOL CLINICAL [...] adrenal gland, likely calcified adenoma unchanged since 2015. Small hypodense left adrenal gland nodule also unchanged since 2016, probably stable adenoma. Bone window imaging: No acute or pathologic bony abnormality. Widespread diminished bone density exaggeration thoracic kyphosis long segment anterior longitudinal ligament calcification may be DISH.. Procedure Note Deborah Sexton MD - 07/22/2025 [place] [address] EXAMINATION: CTA CHEST. PULMONARY EMBOLUS PROTOCOL CLINICAL [...] thyroid nodule, stable evaluated and noted since 2015. Mostrecently nearly identical appearance on CT of [...] ascending aorta maximal diameter 40 mm unchangedsince 2015. Normal caliber aortic arch descending aorta and suprarenalaorta. Widespread calcific atherosclerosis of the aorta and heavy plaqueat the ostia the celiac trunk and SMA and right and left renal arterieshas increased since 2015. Since December 2023 the patient has received [...] PM Ana GARCIA CT Final Result * HEPATITIS B POST-VACCINE ANTIBODY (07/22/2025 2:37 PM CDT) HEP B SURFACE AB 503.60 mIU/mL 07/22/2025 3:25 PM CDT [facility] Comment: REFERENCE RANGE >=12.00 PATIENT DOES HAVE IMMUNITY TO HEPATITIS B VIRUS 07/22/2025 2:37 PM CDT Eduarda Redman MD LABORATORY Final Result [facility] [address] [place] [address], * (ABNORMAL) MYCOPLASMA PNEUMONIAE AB (07/22/2025 2:37 PM CDT) M. PNEUMONIAE AB IGG 1.26(H) <=0.90 07/26/2025 7:36 PM CDT [facility] SHEELA LOZANO Comment: Reference Range: <=0.90 Negative 0.91-1.09 Equivocal >=1.10 Positive A positive IgG result indicates that the patient has antibody to Mycoplasma. It does not differentiate between an active or past infection. The clinical diagnosis must be interpreted in conjunction with the clinical signs and symptoms of the patient. M. PNEUMONIAE AB IGM 165 <770 U/mL 07/26/2025 7:36 PM CDT [facility] SHEELA LOZANO Comment: Reference Range: <770 U/ml Negative 770-950 [...] symptoms of the patient. Test Performed by [employer], [employer] [facility], [address] [place] [address] Heladio Chiu M.D., Ph.D., Director of Laboratories , CLIA [id number] 07/22/2025 2:37 PM CDT Ana GARCIA LABORATORY Final Result Performing Organization Address [facility] Co de Phone Number [facility] [address] [place], [place] , [place] [phone] * HISTOPLASMA ANTIBODY (07/22/2025 2:37 PM CDT) HISTOPLASMA CAPSULATUM H AB Negative Negative 07/27/2025 10:45 AM CDT [facility] Comment: This immunodiffusion assay is [...] the diagnosis of histoplasmosis. Test Performed by [employer], [employer] [facility], [address] [place] [address] Heladio Chiu M.D., Ph.D., Director of Laboratories , CLIA [id number] HISTOPLASMA CAPSULATUM M AB Negative Negative 07/27/2025 10:45 AM CDT [facility] 07/22/2025 2:37 PM CDT us Ana GARCIA LABORATORY Final Result Performing Organization Address [facility]/ZIP Co de Phone Number [employer] [facility] [address] [place], [place] , [place] [phone] * HEPATITIS B SURFACE AG, EIA (07/22/2025 2:37 PM CDT) HEPATITIS B SURFACE AG NON-REACTI VE NON-REACTI VE 07/22/2025 3:33 PM CDT [facility] 07/22/2025 2:37 PM CDT Eduarda Redman MD LABORATORY Final Result Performing Organization Address [facility] Co de Phone Number [facility] [address] [place] [phone], * (ABNORMAL) TROPONIN, QUANT (07/22/2025 1:38 PM CDT) Only the most recent of2 resultswithin the time period is included. TROPONIN I HIGH SENSITIVITY 56(H) <54 ng/L 07/22/2025 2:09 PM CDT [facility] Comment: HIGH DOSES OF BIOTIN, TROPONIN-SPECIFIC AUTOANTIBODIES, AND ANTIBODY THERAPY CONTAINING HAMA MAY INTERFERE WITH THIS TEST RESULT. CORRELATION TO CLINICAL HISTORY AND PRESENTATION RECOMMENDED. 07/22/2025 1:38 PM CDT Jose Guevara MD LABORATORY Final Result Performing Organization Address [facility] Co de Phone Number [facility] [address] [place] [address], * XR CHEST PORTABLE (07/22/2025 12:02 PM [...] elective CT if clinically indicated. Ordered By: JOSE GUEVARA Interpreted By: Aron Aguilar, 07/22/2025 12:08 PM Narrative 07/22/2025 12:20 PM CDT [facility] [address] [place], [place] [address] IMAGING STUDIES: XR CHEST PORTABLE DATE: 07/22/2025 11:40 AM HISTORY: new o2 requirement 72-year-old female. Altered mental status during dialysis. Reported temperature of 100.3 prior to dialysis treatment 1 (did not receive dialysis today). Patient's daughter reports the patient was released from [facility] on 07/01/2025 after treatment for urinary tract [...] Procedure Note Aron Aguilar MD - 07/22/2025 [facility] [address] [place], [place] [address] IMAGING STUDIES: XR CHEST PORTABLEDATE: 07/22/2025 11:40 AM HISTORY: new o2 requirement 72-year-old female. Altered mental statusduring dialysis. Reported temperature of 100.3 prior to dialysis treatment1 (did not receive dialysis today). Patient's daughter reports the patientwas released from [facility] on 07/01/2025 after treatment forurinary tract infection. [...] elective CT if clinically indicated. 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 : 1945 Requested By: JOSE GUEVARA Order Number: [id number] Reading MD: German Stevens Measurements Intervals Lyerly Rate: 137 P: 0 MD: 0 QRS: -18 QRSD: 111 T: 68 QT: 295 QTc: 446 Interpretive Statements ATRIAL FIBRILLATION WITH RAPID VENTRICULAR RESPONSE POSSIBLE LATERAL MYOCARDIAL INFARCTION , OF INDETERMINATE AGE [30 ms Q WAVE IN I/aVL/V5/V6] Compared to ECG 07/17/2024 13:56:11 No significant changes Procedure Note German Stevens MD - 07/22/[address] Test Date: 2025-07-22 Pat Name: ZANDER BARRIENTOS Department: 41 Room: [facility] Gender: Female Chemical 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 RAD * CULTURE, BACTERIA, BLOOD (07/22/2025 11:27 AM CDT) Only the most recent of2 resultswithin the time period is included. SPEC DESCRIPTION BLOOD 07/22/2025 11:27 AM CDT [facility] SPECIAL REQUESTS NO SPECIAL REQUEST 07/22/2025 11:27 AM CDT [facility] CULTURE RESULT NO GROWTH 5 DAYS 07/27/2025 12:00 PM CDT [facility] BLOOD SPECIMEN OBTAINED FOR BLOOD CULTURE / Unknown 07/22/2025 11:27 AM CDT 07/22/2025 11:44 AM CDT us Jose Guevara MD MICROBIOLOGY - GENERAL ORDERA BLES Final Result [facility] [address] [place] [address], [place] [phone] * (ABNORMAL) BASIC METABOLIC PANEL (07/16/2025 9:43 AM CDT) GLUCOSE 191(H) 70 - 99 MG/DL 07/16/2025 10:13 AM CDT [facility] BUN 28(H) 7 - 18 MG/DL 07/16/2025 10:13 AM CDT [facility] CREATININE S/P/B 3.67(H) 0.55 - 1.02 MG/DL 07/16/2025 10:13 AM CDT [facility] SODIUM S/P/B 131(L) 136 - 145 MMOL/L 07/16/2025 10:13 AM CDT [facility] POTASSIUM S/P/B 4.9 3.5 - 5.1 MMOL/L 07/16/2025 10:13 AM CDT [facility] CHLORIDE S/P/B 97 97 - 115 MMOL/L 07/16/2025 10:13 AM CDT [facility] CO2 28.1 21 - 32 MMOL/L 07/16/2025 10:13 AM CDT [facility] CALCIUM S/P/B 9.1 8.5 - 10.1 MG/DL 07/16/2025 10:13 AM CDT [facility] ANION GAP 5.9 2 - 10 MMOL/L 07/16/2025 10:13 AM CDT [facility] BUN CREATININE RATIO 7.6 6 - 26 07/16/2025 10:13 AM CDT [facility] GFR ESTIMATE 12(L) >90 ML/MIN/1.7 3 M2 07/16/2025 10:13 AM CDT [facility] Comment: NOTE: eGFR is not calculated for patients <18 years of age or gender unknown. This is an estimated GFR calculation using the new CKD EPI creatinine equation without race and so does not require a correction factor for race. This estimated GFR should not be used for calculating drug doses. 07/16/2025 9:43 AM CDT Nikhil Lamas MD LABORATORY Final Result [facility] [address] [place] [id number], * HEPATITIS C ANTIBODY W/REFLEX (05/20/2022 5:39 AM CDT) Pathologist [facility] HEPATITIS C AB NON-REACTI VE NON-REACTI VE 05/20/2022 7:27 AM CDT [facility] 05/20/2022 5:39 AM CDT Homer Perez APRN LABORATORY Final Result [facility] [address] [place] [address], [place] [phone] * LIPID PANEL (05/19/2022 7:15 AM CDT) CHOLESTEROL 130 <200 MG/DL 05/19/2022 7:57 AM CDT [facility] TRIGLYCERIDES 108 <150 MG/DL 05/19/2022 7:57 AM CDT [facility] HDL 46 >40.0 MG/DL 05/19/2022 7:57 AM CDT [facility] LDL (CALCULATED) 62 <100 MG/DL 05/19/20 7:57 AM CDT [facility] NON HDL CHOLESTEROL 84 <130 MG/DL 05/19 7:57 AM CDT [facility] CHOL/HDL RATIO 2.8 0.0 - 4.5 05/19/2022 7:57 AM CDT [facility] VLDL CALCULATION 22 5 - 55 MG/DL 05/19/2022 7:57 AM CDT [facility] [facility] LIPID INTERPRETATION 05/19/2022 7:57 AM T [facility] Comment: NIH CONCENSUS REPORT RECOMMENDATIONS: ADULT CHILD LOW RISK: CHOLESTEROL <200 <170 TRIGLYCERIDE <150 --- HDL >=60 --- LDL <100 <110 BORDERLINE: CHOLESTEROL 200-239 170-199 TRIGLYCERIDE 150-199 --- HDL 40-59 --- LDL 100-159 110-129 HIGH RISK: CHOLESTEROL >=240 >=200 TRIGLYCERIDE >=200 --- HDL <40 --- LDL >=160 >=130 05/19/2022 7:15 AM CDT Kenzie Young MD LABORATORY Final Result [facility] [address] [place] [address], [place] [phone] * BONE DENSITY (08/14/2020) Anatomical Region Laterality Modality Other us Documents Scanned SCANNING Final Result from Last 3 Months or Most Recently Relevant to Health Maintenance Additional Health Concerns Infection Onset Date Last Indicated ESBL - Extended Spectrum Bet a-lactamase Comment:Added from external infection.+ESBL Urine BJC 08/23/21 08/23/2021 MRSA Comment:04/20/22 +MRSA Nasal 04/21/2022 07/22/2025 Insurance MEDICAID AET MEDICARE Advance Directives Documents on File Type Date Recorded Patient Chemistry Research Assistant Expl anation Power of Heat Treat Supervisor 06/11/2022 2:27 PM 11/10 PROPERTY Advance Directives and Living Will 06/11/2022 2:24 PM 11/10/2021 POA - HC * Full Code (Latest Code Status on File) Date Activated Date Inactivated Comments 07/22/2025 2:23 PM 07/28/2025 2:40 PM * Full Code Date Activated Date Inactivated Comments 01/08/2024 1:31 AM 01/13/2024 5:02 PM * Full Code Date Activated Date Inactivated Comments 09/09/2022 2:37 PM 09/12/2022 5:01 PM * Full Code Date Activated Date Inactivated Comments 05/18/2022 10:19 PM 05/25/2022 7:09 PM * Full Code Date Activated Date Inactivated Comments 04/13/2022 8:01 AM 04/25/2022 3:20 PM Healthcare Agents on File Name Relationship Healthcare Agent Madelaineco talita Communication Shima Barrientos Daughter Health Care Agent [email or web address] Care Teams Contracts Director Relationship Specialty Start Date End Date Carl Maloney MD [address] [place] [address] PCP - General INTERNAL MEDICINE 07/03/24 Geovani Gonzalez MD Three [facility]. [address] [place] [address] [place] Account Strategist CARDIOVASCULAR DISEASE 07/24/16 Enio Centeno DO [address] [place] [address] NEUROLOGY 07/03/24 Josse Alanis MD [address] [place] [address] NEPHROLOGY 07/03/24 Cristofer Schwarz MD [address] [place] [address] Referring Physician NEPHROLOGY 07/03/24
--- OUTSIDE RECORDS SUMMARY | 2025-07-29 16:14 | XMS_ITS | Encounter Summary ---
Author Organization [facility] Address [facility] [place] [address] Care Team Providers Care Wet Crown Blocking Operator Name Role Phone Geovani Gonzalez MD Unavailable [phone] Enio Centeno DO Unavailable [phone] Josse Alanis MD Unavailable Cristofer Schwarz MD Unavailable [phone] Carl Maloney MD Primary Care Provider [phone] Encounter Details Date Type Department Care Team (Late st Contact Info) Description 04/30/2020 Abstract [facility] at [address] [address] Shania Blackburn MA Social History Tobacco Use Types Packs/Day Years Used Date Smoking Tobacco: Never Smokeless Tobacco: Never Alcohol Use Standard Drinks/Week Comments No 0 (1 standard drink = 0.6 oz pur e alcohol) Comments Unknown Sex and Gender Information Value Date Recorded Sex Assigned at Female 07/22/2025 12:46 PM CDT Legal Sex Female 1:27 PM CDT Gender Identity Not on file Sexual Orientation Not on file Occupation Industry Job Start Date Job End Date Not on file Not on file Not on file Not on file COVID-19 Exposure Response Date Recorded In the last month, have you been in contact with someone who was confirmed or suspected to have Coronavirus / COVID-19? Unable to assess 04/10/2020 1:16 PM CDT documented as of this encounter Plan of Treatment Upcoming Encounters Date Type Department Care Team (Late st Contact Info) Description 10/01/2025 2:30 PM INJECTION MOLDING MACHINE OFFBEARER Office Visit [facility] THREE [facility], [address] [place], [place] [id number] Cristina Palacios FNP 3 [facility] [address] [place], [place] [id number] documented as of this encounter Procedures Procedure Name Priority Date/Time Associated Diagnosis Comments COMPREHENSIVE METABOLIC PANEL Routine 03/15/2024 CBC, MANUAL DIFF Routine 03/15/2024 MAGNESIUM Routine 03/15/2024 CBC (OUTSIDE LAB) Routine 12/25/2020 COMPREHENSIVE METABOLIC PANEL Routine 12/25/2020 COMPREHENSIVE METABOLIC PANEL Routine 02/12/2020 LIPID PANEL Routine 02/12/2020 HEMOGLOBIN, GLYCOSYLATED Routine 02/12/2020 THYROID STIM HORMONE TSH Routine 02/12/2020 documented in this encounter Results * (ABNORMAL) COMPREHENSIVE METABOLIC PANEL (03/15/2024) SODIUM S/P/B 139 GLUCOSE 160 mg/dL AST 19 BUN 28 CREATININE S/P/B 3.0(A) 0.5 - 1.0 CALCIUM S/P/B 10.3 POTASSIUM S/P/B 4.3 CHLORIDE S/P/B 103 ALT 10 GFR ESTIMATE 15 us Default History Genericprovider LABORATORY Final Result * CBC, MANUAL DIFF (03/15/2024) WBC 5.6 HGB 9.4 HCT 32.1 PLT 100 us Default History Genericprovider LABORATORY Final Result * MAGNESIUM (03/15/2024) Pathologist [facility] MAGNESIUM 2.2 us Default History Genericprovider LABORATORY Final Result * CBC (OUTSIDE LAB) (12/25/2020) Pathologist [facility] WBC 7.0 HGB 10.3 HCT 33.4 PLT 249 12/25/2020 us Doc [facility] Abstract LAB-OUTSIDE/ABSTRACTED Final Result * (ABNORMAL) COMPREHENSIVE METABOLIC PANEL (12/25/2020) Pathologist [facility] SODIUM S/P/B 139 POTASSIUM S/P/B 3.8 CO2 26 CHLORIDE S/P/B 103 GLUCOSE 288 mg/dL CALCIUM S/P/B 10.6 BUN 51 CREATININE S/P/B 2.53(A) 0.5 - 1.0 EGFR AFR. AMER. 21 <=90 EGFR NON-AFR. AMER. 18 <=90 ALKALINE PHOSPHATASE S/P/B 50 ALT 14 AST 17 BILIRUBIN TOTAL S/P/B 1.0 ALBUMIN S/P/B 3.9 3.5 - 5.0 TOTAL PROTEIN S/P/B 6.3 GLOBULIN 2.4 12/25/2020 us Doc [facility] Abstract LABORATORY Final Result * THYROID STIM HORMONE, TSH (02/12/2020) Pathologist [facility] TSH 1.60 02/12/2020 us Doc [facility] Abstract LABORATORY Final Result * (ABNORMAL) COMPREHENSIVE METABOLIC PANEL (02/12/2020) Pathologist [facility] SODIUM S/P/B 137 POTASSIUM S/P/B 5.4 CO2 23 CHLORIDE S/P/B 108 GLUCOSE 218 mg/dL CALCIUM S/P/B 9.0 BUN 29 CREATININE S/P/B 1.99(A) 0.5 - 1.0 EGFR AFR. AMER. 28 <=90 EGFR NON-AFR. AMER. 24 <=90 ALKALINE PHOSPHATASE S/P/B 55 ALT 6 AST 9 BILIRUBIN TOTAL S/P/B 0.7 ALBUMIN S/P/B 3.7 3.5 - 5.0 TOTAL PROTEIN S/P/B 6.2 GLOBULIN 2.5 02/12/2020 us Doc [facility] Abstract LABORATORY Final Result * HEMOGLOBIN, GLYCOSYLATED (02/12/2020) HGB A1C 8.5 % 02/12/2020 us Doc [facility] Abstract LABORATORY Final Result * LIPID PANEL (02/12/2020) CHOLESTEROL 105 HDL 48 TRIGLYCERIDES 71 NON HDL CHOLESTEROL 57 LDL (CALCULATED) 42 02/12/2020 us Doc [facility] Abstract LABORATORY Final Result documented in this encounter Visit Diagnoses Not on filedocumented in this encounter Additional Health Concerns Infection Onset Date Last Indicated Resolved Time ESBL - Extended Spectrum Beta-lactamase Comment:Added from external infection.+ESBL Urine BJC 08/23/21 08/23/2021 COVID-19 Rule Out 04/13/2022 04/13/2022 04/13/2022 2:18 PM CDT MRSA Comment:04/20/22 +MRSA Nasal 04/21/2022 07/22/2025 COVID-19 Rule Out 04/25/2022 04/25/2022 04/25/2022 1:27 PM CDT COVID-19 Rule Out 05/19/2022 05/19/2022 05/19/2022 4:17 PM CDT COVID-19 Rule Out 05/25/2022 05/25/2022 05/25/2022 2:37 PM CDT COVID-19 Rule Out 09/12/2022 09/12/2022 09/12/2022 12:26 PM INJECTION MOLDING MACHINE OFFBEARER documented as of this encounter Care Teams Wet Crown Blocking Operator Relationship Specialty Start Date End Date Carl Maloney MD [address] [facility] [address] [place] [address] PCP - General INTERNAL MEDICINE 07/03/24 Geovani Gonzalez MD [facility]. [facility] [address] [place] [address] [place] [employer] Crew Chief CARDIOVASCULAR DISEASE 07/24/16 Enio Centeno DO [address] [place] [address] NEUROLOGY 07/03/24 Josse Alanis MD [address] [place] [address] NEPHROLOGY 07/03/24 Cristofer Schwarz MD [address] [place] [address] Referring Physician NEPHROLOGY 07/03/24 documented as of this encounter
--- OUTSIDE RECORDS SUMMARY | 2025-07-29 16:14 | XMS_ITS | Patient Health Record ---
Author Organization [facility] Address [address] [place] [address] Care Team Providers Care Rural Route Mail Carrier Name Role Phone Fazal No Unavailable [phone] Reason For Referral No Information Medications Medication SIG (Take, Route, Frequency, Duration) Notes Start Date End Date Status Potassium Chloride Evangelina ER 20 MEQ Tablet Extended Release Oral 08/24/2022 Active Estradiol 0.01 % (0.1 mg/gram) Cream Vaginal *Pick strength-form from [employer] for eRX* 08/24/2022 Active hydrALAZINE HCl 25 MG Tablet Oral 08/24/2022 Active Trospium Chloride 20 MG Tablet Oral 08/24/2022 Active Oseltamivir Phosphate 75 MG Capsule Oral 08/24/2022 Active Tradjenta 5 MG Tablet Oral 08/24/2022 Active hydrALAZINE HCl 50 MG Tablet Oral 08/24/2022 Active Toviaz 4 MG Tablet Extended Release 24 Hour Oral 08/24/2022 Active Cefuroxime Axetil 500 MG Tablet Oral 08/24/2022 Active Ciprofloxacin HCl 250 MG Tablet Oral 08/24/2022 Active Cephalexin 500 MG Capsule Oral 08/24/2022 Active lamoTRIgine 25 MG Tablet Oral 08/24/2022 Active Methylphenidate HCl 10 MG Tablet Oral 08/24/2022 Active Januvia 50 MG Tablet Oral 08/24/2022 Active Donepezil HCl 5 MG Tablet Oral 08/24/2022 Active Bumetanide 1 MG Tablet Oral 08/24/2022 Active L-Methylfolate 15 MG Tablet Oral 08/24/2022 Active FREESTYLE VICTORIANO 2 SENSOR KIT *Reorder from [employer] for eRx and Interaction Alerts* 08/24/2022 Active Bumetanide 0.5 MG Tablet Oral 08/24/2022 Active FLUoxetine HCl 40 MG Capsule Oral 08/24/2022 Active NovoLOG FlexPen ReliOn 100 UNIT/ML Solution Pen-injector Subcutaneous *Reorder from [facility] for eRx and Interaction Alerts* 08/24/2022 Active hydrALAZINE HCl 100 MG Tablet Oral 08/24/2022 Active Metoprolol Succinate ER 50 MG Tablet Extended Release 24 Hour Oral 08/24/2022 Active Metoprolol Succinate ER 100 MG Tablet Extended Release 24 Hour Oral 08/24/2022 Active Nystatin-Triamcinolone 021533-1.1 UNIT/GM Cream External 08/24/2022 Active Gabapentin 100 MG Capsule Oral 08/24/2022 Active FLUoxetine HCl 20 MG Tablet Oral 08/24/2022 Active Baclofen 5 mg TABLET ORAL 08/24/2022 Active ICOSAPENT ETHYL 1 GRAM CAPSULE *Reorder from [facility] for eRx and Interaction Alerts* 08/24/2022 Active Erythromycin 5 MG/GM Ointment Ophthalmic 08/24/2022 Active Nitrofurantoin Macrocrystal 50 MG Capsule Oral 08/24/2022 Active Sodium Bicarbonate 650 MG Tablet Oral 08/24/2022 Active Eliquis 5 MG Tablet Oral 08/24/2022 Active ACETAMINOPHEN 650 MG TABLET *Reorder from [facility] for eRx and Interaction Alerts* 08/24/2022 Active Doxycycline Hyclate 100 MG Tablet Oral 08/24/2022 Active Rosuvastatin Calcium 20 MG Tablet Oral 08/24/2022 Active Mupirocin 2% Ointment External 08/24/2022 Active ARIPiprazole 2 MG Tablet Oral 08/24/2022 Active Basaglar KwikPen 100 UNIT/ML Solution Pen-injector Subcutaneous 08/24/2022 Active Potassium Chloride ER 10 MEQ Tablet Extended Release Oral 08/24/2022 Active Nitroglycerin 0.4 MG Tablet Sublingual Sublingual 08/24/2022 Active Metoprolol Tartrate 50 MG Tablet Oral 08/24/2022 Active AUTOSHIELD DUO PEN NEEDLE 30 gauge x 3/16 NEEDLE, DISPOSABLE MISCELLANEOUS *Reorder from [facility] for eRx and Interaction Alerts* 08/24/2022 Active Amoxicillin 500 MG Capsule Oral 08/24/2022 Active Isosorbide Dinitrate 10 MG Tablet Oral 08/24/2022 Active SEMGLEE (INSULIN GLARGINE-YFGN) PEN 100 UNIT/ML (3 ML) SUBCUTANEOUS *Reorder from [facility] for eRx and Interaction Alerts* 08/24/2022 Active FESOTERODINE ER 4 MG TABLET,EXTENDED RELEASE 24 HR *Reorder from [facility] for eRx and Interaction Alerts* 08/24/2022 Active traZODone HCl 50 MG Tablet Oral 08/24/2022 Active Potassium Chloride ER 20 MEQ Tablet Extended Release Oral 08/24/2022 Active Cephalexin 250 MG Capsule Oral 08/24/2022 Active Cefdinir 300 MG Capsule Oral 08/24/2022 Active amLODIPine Besylate 5 MG Tablet Oral 08/24/2022 Active Ritalin 10 MG Tablet Oral 08/24/2022 Active metOLazone 2.5 MG Tablet Oral 08/24/2022 Active Toviaz 8 MG Tablet Extended Release 24 Hour Oral 08/24/2022 Active Immunizations Vaccine Route Administration Date Status Comme nts Moderna Covid-19 Vaccine 1st dose Unknown 12/05/2020 Ad ministered Moderna Covid-19 Vaccine 1st dose Unknown 01/02/2021 Ad ministered Pfizer [employer] Covid-19 Vac cine 2nd dose Unknown 11/03/2021 Administered Social History Social History Additional Details Category Social Info Options Details Migrated Social History Migrated Social History Alcohol Intake: None 03/08/2022,Tobacco Years: Never smoker 03/08/2022 Plan Of Treatment No Information Insurance Providers Payer Name Payer Address Payer Phone Subscriber Number Group Number Insured Name Patient Relationship to Insured Coverage Start Date Coverage End Date Medicare- [place] Medicare [address] [place] [id number] ZANDER ADLER Self - patient is the insured Aetna Pos [address] [place], [place] [phone] [id number] ZANDER ADLER Self - patient is the insured Medical (General) History Surgical History Surgery Date(Month/Year) Cataract surgery (37611) Breast surgery (15372) 10/24/2014
--- OUTSIDE RECORDS SUMMARY | 2025-07-29 16:15 | XMS_ITS ---
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 Past Treatment and Therapy Plans ONCOLOGY SECONDARY SUPPORTIVE CARE Plan Name Start Date Discontinue Date Treatment Medications Discontinue Reason Plan Provider Cycles SUPPORT - BISPHOSPHONATES (AREDIA / ZOMETA) - [facility]SCI 7 12/12/2020 No medications scheduled. Plan Clean Up Chris Hughes MD 1 of 1 cycle started ONCOLOGY TREATMENT Plan Name Start Date Discontinue Date Treatment Medications Discontinue Reason Plan Provider Cycles BREAST- TRASTUZUMAB Q 3 WEEKS - CCSCI 5 11/24/2020 trastuzumab (HERCEPTIN) infusion Plan Clean Up Laila Meyer MD 7 of 7 cycles started Resolved Problems Problem Noted Date Diagnosed Date Resolved Date Anemia in chronic kidney disease 07/29/2016 09/02/2016 Hypercalcemia 11/20/2015 09/02/2016
--- OUTSIDE RECORDS SUMMARY | 2025-07-29 16:15 | XMS_ITS | Encounter Summary ---
Author Organization [facility] Address [facility] [place] [address] Care Team Providers Care Pathology Manager Name Role Phone Geovani Gonzalez MD Unavailable [phone] Enio Centeno DO Unavailable [phone] Josse Alanis MD Unavailable Cristofer Schwarz MD Unavailable [phone] Carl Maloney MD Primary Care Provider [phone] Encounter Details Date Type Department Care Team (Late st Contact Info) Description 03/29/2024 [employer] Message Enc [facility] THREE [facility], [address] [address] Geovani Gonzalez MD [facility]. [address] [address] Echocardiogram results? Social History Tobacco Use Types Packs/Day Years Used Date Smoking Tobacco: Never Smokeless Tobacco: Never Alcohol Use Standard Drinks/Week Comments No 0 (1 standard drink = 0.6 oz pur e alcohol) [facility] Utilities Answer Date Recorded In the past 12 months has th e electric, gas, oil, or water [employer] threatened to shut off services in your [...] often do you attend chur ch or nondenominational services? 1 to 4 times per year [...] and heating? Not hard at all 01/08/2024 [employer] [place] of Occupat ional Health - Occupational Stress [...] place to sleep or slept in a longterm (including now)? No 01/08/2024 Comments No Sex [...] Assessment Author Status No 01/08/2024 12:59 AM ROSEANNT Rocky Bloom RN Active * Are you [...] documented in this encounter Progress Notes * Mar Jordan RN - 04/05/2024 8:39 AM CDT Can you request records please? documented in this encounter Plan of Treatment Upcoming Encounters Date Type Department Care Team (Late st Contact Info) Description 10/01/2025 2:30 PM MANAGER CONVENTION Office Visit [facility], [facility] [address] [place], [place] [id number] Cristina Palacios, AIR CONDITIONING INSULATION INSTALLER 3 [facility] [address] [place] [address] documented as of this encounter Goals Goal Patient Goal Type Associated Problems Recent Progress Patient-Stated? Author Family - family caregiver with be involved in care transitions and discharge planning General No Camryn Monet, MECHANICAL MAINTENANCE FOREMANdirector on air - family caregiver with be involved in care transitions and discharge planning General No [place] RN documented as of this encounter Visit Diagnoses Not on filedocumented in this encounter Additional Health Concerns Infection Onset Date Last Indicated Resolved Time ESBL - Extended Spectrum Bet a-lactamase Comment:Added from external infection.+ESBL Urine BJC 08/23/21 08/23/2021 MRSA Comment:6/28/22 +MRSA Nasal 04/21/2022 07/22/2025 documented as of this encounter Care Teams Pathology Manager Relationship Specialty Start Date End Date Carl Maloney MD [address] [facility] [address] [place] [address] PCP - General INTERNAL MEDICINE 07/03/24 Geovani Gonzalez MD Three [facility]. [address] [place] [address] [place] [employer] Prescription Clerk CARDIOVASCULAR DISEASE 07/24/16 Enio Centeno DO [address] [place] [address] NEUROLOGY 07/03/24 Josse Alanis MD [address] [place] [address] NEPHROLOGY 07/03/24 Cristofer Schwarz MD [address] [place] [address] Referring Physician NEPHROLOGY 07/03/24 documented as of this encounter
--- OUTSIDE RECORDS SUMMARY | 2025-07-29 16:15 | XMS_ITS | Encounter Summary ---
Author Organization [facility] Address Pending [facility] to [facility] [place] [address] Care Team Providers Care Panel Lay Up Worker Name Role Phone Geovani Gonzalez MD Unavailable [phone] Enio Centeno DO Unavailable [phone] Josse Alanis MD Unavailable Cristofer Schwarz MD Unavailable [phone] Carl Maloney MD Primary Care Provider [phone] Encounter Details Date Type Department Care Team (Late st Contact Info) Description 07/25/2025 [place] Message Enc [facility] THREE [facility], [address] [address] Geovani Gonzalez MD [facility]. [address] [address] Liver enzymes/values Social History Tobacco Use Types Packs/Day Years Used Date Smoking Tobacco: Never Smokeless Tobacco: Never Alcohol Use Standard Drinks/Week Comments No 0 (1 standard drink = 0.6 oz pur e alcohol) [facility] Utilities Answer Date Recorded In the past 12 months has th e electric, gas, oil, or water company threatened to shut off services in your [...] How often do you attend chur or jewish services? 1 to 4 times per year 01/08/2024 Do you belong to any clubs o r organizations such as yarsani groups, unions, fraternal or athletic groups, or [...] and heating? Not hard at all 07/23/2025 [facility] [place] of Occupat ional Health - Occupational Stress [...] place to sleep or slept in a nursing home (including now)? No 01/08/2024 Housing Stability Vital Sign Answer Zaheer e Recorded In the last 12 months, was t here a time when you were not able to pay the mortgage or rent on time? No 07/23/2025 In the past 12 months, how m any times have you moved where you were living? 0 07/23/2025 At any time in the past 12 m [facility], were you homeless or living in a nursing home (including now)? No 07/23/2025 Comments No Sex [...] 07/23/2025 12:00 AM Ramila Yoon RN Active documented as of this encounter Mental Status * Because of a physical, mental, or emotional condition, do you have serious difficulty concentrating, remembering, or making decisions? Answer Entry Date Author Status No 07/23/2025 12:00 AM Ramila Yoon RN Active documented in this encounter Plan of Treatment Upcoming Encounters Date Type Department Care Team (Late st Contact Info) Description 10/01/2025 2:30 PM LIDAR ANALYST Office Visit [facility] THREE [facility], [facility] [address] [place], [place] [id number] Cristina Palacios FNP 3 [facility] [address] [place], [place] [id number] documented as of this encounter Goals Goal Patient Goal Type Associated Problems Recent Progress Patient-Stated? Author Family - family caregiver with be involved in care transitions and discharge planning General No Camryn Monet, BODY JOINERpoll watcher - family caregiver with be involved in care transitions and discharge planning General No [place], field observer - family caregiver with be involved in care transitions and discharge planning Lifestyle No Lulu Perera RN documented as of this encounter Visit Diagnoses Not on filedocumented in this encounter Additional Health Concerns Infection Onset Date Last Indicated Resolved Time ESBL - Extended Spectrum Bet a-lactamase Comment:Added from external infection.+ESBL Urine BJC 08/23/21 08/23/2021 MRSA Comment:04/20/22 +MRSA Nasal 04/21/2022 07/22/2025 documented as of this encounter Care Teams Panel Lay Up Worker Relationship Specialty Start Date End Date Carl Maloney MD [address] [place] [address] PCP - General INTERNAL MEDICINE 07/03/24 Geovani [facility] MD [facility] [address] [place] [address] Arnold Lan Manager CARDIOVASCULAR DISEASE 07/24/16 Enio Centeno DO [address] [place] [address] NEUROLOGY 07/03/24 Josse Alanis MD [address] [place] [address] NEPHROLOGY 07/03/24 Cristofer Schwarz MD [address] [place] [address] Referring Physician NEPHROLOGY 07/03/24 documented as of this encounter
--- OUTSIDE RECORDS SUMMARY | 2025-07-29 16:15 | XMS_ITS ---
Author Organization [facility] [address] Address [address] [place] [address] Care Team Providers Care Adult Education Manager Name Role Phone Carl Maloney MD Primary Care Provider [phone] Active Problems Problem Noted Date Diagnosed Date Mild cognitive impairment 08/14/2024 Assessment & Plan (08/14/2024 3:45 PM CDT): Overall, her cognitive testing has remained stable within the past three years. No acetylcholinesterase inhibitors indicated at this time. She is currently not driving. I support this decision. She has continued anxiety but CS would like to hold off on starting anything as the patient is doing well now. Follow-up in 1 year or sooner if need be. 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 Diabetes mellitus 01/01/2020 Pulmonary hypertension 01/01/2020 Atrial fibrillation 05/16/2019 Morbid obesity 08/02/2018 Type 2 diabetes mellitus wit h diabetic chronic kidney disease 08/16/2016 Nonrheumatic aortic valve insufficiency 08/09/20 16 Chronic kidney disease 08/04/2016 Chronic diastolic heart failure 07/16/2016 Vitamin D deficiency 01/22/2016 Malignant neoplasm of lower-outer quadrant of fe male breast 09/11/2015 Abnormal AST and ALT Altered behavior Anticoagulated Cerebrovascular accident (CVA) Hypertension Seizure Thyroid nodule Current Treatment and Therapy Plans No current plan information found. Past Treatment and Therapy Plans No past plan information found. Lifetime Dose Tracking * Chemical Lifetime Dose Automatic Entry Manual Entr y Fluoro Time 5.25 minutes 5.25 minutes 0 minutes Air kerma at the reference point (Ka,r) 99.21 mGy 9 9.21 mGy 0 mGy DLP 1,797 mGycm 1,797 mGycm 0 mGycm
--- OUTSIDE RECORDS SUMMARY | 2025-07-29 16:15 | XMS_ITS | Clinical Summary ---
Author Organization [facility] Address [address] [address] Phone Care Team Providers Care Electronic Instrument Trades Worker Name Role Phone Carl Maloney MD Primary Care Provider [phone] Allergies Active Allergy Reactions Criticality Noted Date Comments Elemental Sulfur Itching Low 01/03/2020 Medications aspirin (ST NICOLA) 81 MG EC tablet 1 tab/cap qday 0 6 Active potassium chloride (KLOR-CON) 10 MEQ CR tablet 1 tab/cap qday 0 6 Active fluticasone (FLONASE) 50 MCG/ACT nasal spray as directed 0 6 Active hydrALAZINE (APRESOLINE) 100 MG tablet 1 tab/cap tid 0 6 Active furosemide (LASIX) 40 MG tablet 1 tab/cap qday 0 6 Active ezetimibe (ZETIA) 10 MG tablet 1 tab/cap qday 0 6 Active dilTIAZem (TIAZAC) 420 MG 24 hr capsule 1 tab/cap qday 0 6 Active letrozole (FEMARA) 2.5 MG chemo tablet 1 tab/cap qday 0 6 Active Linagliptin (TRADJENTA) 5 MG tablet 1 tab/cap qday 0 6 Active loratadine (CLARITIN) 10 MG tablet 1 tab/cap qday 0 6 Active Ubci-Umlgc-YFX-B oswellia-Vit D (GLUCOSAMINE CHONDROITIN COMPLX) tablet 1 tab/cap qday 0 6 Active ELIQUIS 5 MG tablet Take 5 mg by mouth 2 (two) times a day 6 9 Active Glucosamine-Roger droitin 500-400 MG capsule Take 1 capsule by mouth 3 times daily Active ibuprofen (ADVIL,MOTRIN) 200 MG tablet Take 200 mg by mouth 8 Active VASCEPA 1 g capsule Take 2 capsules by mouth 2 (two) times a day 9 Active Blood Glucose Monitoring Suppl (Accu-Chek Koki Plus) w/Device kit USE TO TEST BLOOD SUGAR ONCE DAILY *MEDICARE B WILL NOT PAY FOR GOTTEN WITHIN LAST 5 YRS* 0 Active candesartan (ATACAND) 16 MG tablet Take 16 mg by mouth 1 (one) time each day 0 Active Cholecalciferol (Vitamin D3) 1.25 MG (49209 UT) capsule TAKE 1 CAPSULE BY MOUTH ONCE WEEKLY FOR 8 WEEKS, THEN TAKE 1 CAPSULE MONTHLY UNTIL GONE 0 Active Accu-Chek Koki Plus test strip USE TO TEST BLOOD SUGAR ONCE DAILY 0 Active Accu-Chek Softclix Lancets lancets USE TO TEST BLOOD SUGAR ONCE DAILY 0 Active Toviaz 8 MG tablet sustained-releas e 24 hour Take 1 tablet by mouth 1 (one) time each day 0 Active glimepiride (AMARYL) 2 MG tablet TAKE 1 TABLET BY MOUTH EVERY DAY IN THE MORNING WITH BREAKFAST 0 Active rosuvastatin (CRESTOR) 20 MG tablet Take 20 mg by mouth 1 (one) time each day 0 Active metoprolol tartrate (LOPRESSOR) 50 MG tablet Take 50 mg by mouth every 12 (twelve) hours 1 Active nitroglycerin (NITROSTAT) 0.[address] 1 TABLET UNDER TONGUE EVERY 5 MINUTES NEEDED FOR CHEST PAIN. IF TAKING 3RD DOSE CONTACT 911 0 Active cyanocobalamin (VITAMIN B-12) 1000 MCG tablet Take 1,000 mcg by mouth Active folic acid (FOLVITE) 800 MCG tablet Take 800 mcg by mouth Active polyethylene glycol (GLYCOLAX) 17 g packet Take 17 g by mouth daily Active Active Problems Problem Noted Date Diagnosed Date Angiofollicular lymph node hyperplasia 0 Chronic obstructive pulmonary disease 01/01/2020 Congestive heart failure 01/01/2020 Diabetes mellitus 01/01/2020 Nonsustained ventricular tachycardia 01/01/2020 Pulmonary hypertension 01/01/2020 Atrial fibrillation 05/16/2019 History of external beam radiation therapy 08/03 detention current use of aromatase inhibitor 08/2018 Morbid obesity 08/02/2018 Dyslipidemia 04/03/2018 Epidermoid cyst 02/02/2018 History of antineoplastic chemotherapy 8 Senile hyperkeratosis 02/02/2018 Type 2 diabetes mellitus wit h diabetic chronic kidney disease 08/16/2016 Hypertensive chronic kidney disease with stage 1 through stage 4 chronic kidney disease, or unspecified chronic kidney disease 08/16/2016 Nonrheumatic aortic valve insufficiency 08/09/20 16 Chronic kidney disease, stage 4 (severe) 016 Calculus of kidney 08/04/2016 Other obstructive and reflux uropathy 08/04/2016 Hypokalemia 08/04/2016 Type 2 diabetes mellitus without complication Essential hypertension 08/04/2016 Chronic diastolic heart failure 07/16/2016 Drug-induced osteoporosis 06/17/2016 Vitamin D deficiency 01/22/2016 At risk - finding 12/11/2015 Malignant neoplasm of lower- outer quadrant of breast, female 09/11/2015 Immunizations Immunization Administration Dates Next Due Fluzone High-Dose 08/18/2020 Influenza (IM) Preservative Free 09/01/2016 Influenza TIV (IM) 09/29/2016 Influenza, Injectable, Quadrivalent 07/24/2019 Moderna Sars-cov-2 Vaccination 01/02/2021,2020 Pneumococcal Conjugate 05/31/2017 Pneumococcal Conjugate 13-Valent 09/29/2016,11/0 06/2016 Family History Medical History Relation Comments Kidney stone Father Hypertensive disorder Relative Kidney disease Relative Relation Status Comments Father Relative Social History Tobacco Use Types Packs/Day Years Used Date Smoking Tobacco: Never Smokeless Tobacco: Never Alcohol Use Standard Drinks/Week Comments No 0 (1 standard drink = 0.6 oz pur e alcohol) Comments Unknown Sex and Gender Information Value Date Recorded Sex Assigned at Not on file Legal Sex Female 7:37 AM MST Gender Identity Not on file Sexual Orientation Not on file Last Filed Vital Signs Vital Sign Reading Time Taken Comments Blood Pressure 144/82 04/01/2021 3:08 PM CDT Pulse - - Temperature 36.9 C (98.4 F) 04/01/2021 3:08 PM CDT Respiratory Rate 18 04/01/2021 3:08 PM CDT Oxygen Saturation - - Inhaled Oxygen Concentration - - Weight 103 kg (228 lb) 04/01/2021 3:08 PM CDT Height 170.2 cm (5' 7) 04/01/2021 3:08 PM CDT Body Mass Index 35.71 04/01/2021 3:08 PM CDT Plan of Treatment Health Maintenance Due Date Last Done Comments Pneumococcal PPSV23/PCV13 65 + Years / Low and Medium Risk (2 of 3 - PCV20 or PCV21) 09/29/2017 09/29/2016, 2015 COVID-19 Vaccine (3 - season) 06/24/202509/2021, 12/05/2020 Influenza Vaccine (#1) 2025 09/29/2016, 2015 Insurance MEDICARE AET Care Teams Electronic Instrument Trades Worker Relationship Specialty Start Date End Date Carl Maloney MD [address] [facility] [address] [facility] [address] [place] [address] PCP - General Internal Medicine 05/16/19
--- OUTSIDE RECORDS SUMMARY | 2025-07-29 16:15 | XMS_ITS | Encounter Summary ---
Author Organization [facility] Address [facility] [place] [address] Care Team Providers Care Cotton Classer Name Role Phone Geovani Gonzalez MD Unavailable [phone] Enio Centeno DO Unavailable [phone] Josse Alanis MD Unavailable Cristofer Schwarz MD Unavailable [phone] Carl Maloney MD Primary Care Provider [phone] Encounter Details Date Type Department Care Team (Late st Contact Info) Description 07/25/2024 Proximal Datat Message Enc [facility], [address] [address] Geovani Gonzalez MD [facility]. [address] [id number] Screenshots Social History Tobacco Use Types Packs/Day Years Used Date Smoking Tobacco: Never Smokeless Tobacco: Never Alcohol Use Standard Drinks/Week Comments No 0 (1 standard drink = 0.6 oz pur e alcohol) [facility] Utilities Answer Date Recorded In the past 12 months has th e electric, gas, oil, or water [employer] threatened to shut off services in your [...] often do you attend chur ch or congregation services? 1 to 4 times per year 01/08/2024 Do you belong to any clubs o r organizations such as congregation groups, unions, fraternal or athletic groups, or [...] and heating? Not hard at all 01/08/2024 [facility] [place] of Occupat ional Health - Occupational Stress [...] place to sleep or slept in a mcc (including now)? No 01/08/2024 Comments No Sex [...] encounter Progress Notes * SHAHLA Le - 07/27/2024 12:41 PM CDT She is in Afib chronically. We primarily only need to know her heart rate averages. * SHAHLA Le - 07/27/2024 8:15 AM CDT That's all artifact documented in this encounter Plan of Treatment Upcoming Encounters Date Type Department Care Team (Late st Contact Info) Description 10/01/2025 2:30 PM FUR CUTTER Office Visit [facility], [address] [place], [place] [id number] Cristina Palacios FNP [address] [facility] [address] [place], [place] [phone] documented as of this encounter Goals Goal Patient Goal Type Associated Problems Recent Progress Patient-Stated? Author Family - family caregiver with be involved in care transitions and discharge planning General No Camryn Monet, SENIOR CENTER DIRECTORresin remover - family caregiver with be involved in care transitions and discharge planning General No Jean, Pau K, RN documented as of this encounter Visit Diagnoses Not on filedocumented in this encounter Additional Health Concerns Infection Onset Date Last Indicated Resolved Time ESBL - Extended Spectrum Bet a-lactamase Comment:Added from external infection.+ESBL Urine BJC 08/23/21 08/23/2021 MRSA Comment:04/20/22 +MRSA Nasal 04/21/2022 07/22/2025 documented as of this encounter Care Teams Cotton Classer Relationship Specialty Start Date End Date Carl Maloney MD [address] [place] [address] PCP - General INTERNAL MEDICINE 07/03/24 Geovani Gonzalez MD [facility]. [address] [place] [address] [place] Crankshaft Grinder CARDIOVASCULAR DISEASE 07/24/16 Enio Centeno DO [address] [place] [address] NEUROLOGY 07/03/24 Josse Alanis MD [address] [place] [address] NEPHROLOGY 07/03/24 Cristofer Schwarz MD [address] [place] [address] Referring Physician NEPHROLOGY 07/03/24 documented as of this encounter
--- OUTSIDE RECORDS SUMMARY | 2025-07-29 16:15 | XMS_ITS | Encounter Summary ---
Author Organization [facility] Address Pending sale to [facility] [place] [address] Care Team Providers Care Client Reporting Associate Name Role Phone Geovani Gonzalez MD Unavailable [phone] Enio Centeno DO Unavailable [phone] Josse Alanis MD Unavailable Cristofer Schwarz MD Unavailable [phone] Carl Maloney MD Primary Care Provider [phone] Encounter Details Date Type Department Care Team (Late st Contact Info) Description 08/10/2016 Abstract [facility] AT [address] [address] Shania Blackburn MA Social History Tobacco Use [...] on file Sexual Orientation Not on file documented as of this encounter Progress Notes * CHRIS Hogan - 08/10/2016 2:13 PM CDT PG pt send letter continue current meds MACHINE KEY PERSON * CHRIS Hogan - 08/10/2016 2:13 PM CDT PG pt send letter continue current meds MACHINE KEY PERSON documented in this encounter Plan of Treatment Upcoming Encounters Date Type Department Care Team (Late st Contact Info) Description 10/01/2025 2:30 PM SLOT MACHINE KEY PERSON Office Visit [facility], [address] [place], [place] [phone] Cristina Palacios, INSULATION WORKER FURNACE INSTALLER [facility] [address] [place], [place] [phone] documented as of this encounter Procedures Procedure Name Priority Date/Time Associated Diagnosis Comments CBC (OUTSIDE LAB) Routine 11/09/2018 LIPID PANEL Routine 11/09/2018 BASIC METABOLIC PANEL Routine 11/01/2018 PHOSPHORUS, INORGANIC PHOSPHATE Routine 11/01/2018 VITAMIN D, 25 OH Routine 11/01/2018 FOLATE (OUTSIDE LAB) Routine 03/09/2018 VITAMIN B-12 Routine 03/09/2018 IRON BINDING TEST Routine 03/09/2018 IRON Routine 03/09/2018 BASIC METABOLIC PANEL Routine 09/13/2017 LIPID PANEL Routine 09/13/2017 HEMOGLOBIN, GLYCOSYLATED Routine 09/13/2017 THYROXINE, FREE (FT4) Routine 09/13/2017 THYROID STIM HORMONE TSH Routine 09/13/2017 CBC (OUTSIDE LAB) Routine 07/18/2016 COMPREHENSIVE METABOLIC PANEL Routine 07/18/2016 MAGNESIUM Routine 07/18/2016 LIPID PANEL Routine 07/11/2016 documented in this encounter Results * CBC (OUTSIDE LAB) (11/09/2018) WBC 9.3 HGB 11.6 HCT 36.1 PLT 290 11/09/2018 [facility] Abstract LAB-OUTSIDE/ABSTRACTED Final Result * LIPID PANEL (11/09/2018) Pathologist [facility] CHOLESTEROL 168 HDL 54 TRIGLYCERIDES 108 NON HDL CHOLESTEROL 114 LDL (CALCULATED) 94 11/09/2018 us [facility] Abstract LABORATORY Final Result * VITAMIN D, 25 OH (11/01/2018) VITAMIN D 25 HYDROXY S/P/B 25 11/01/2018 us Doc [facility] Abstract LABORATORY Final Result * PHOSPHORUS, INORGANIC PHOSPHATE (11/01/2018) Pathologist [facility] PHOSPHORUS 3.8 11/01/2018 us Doc [facility] Abstract LABORATORY Final Result * (ABNORMAL) BASIC METABOLIC PANEL (11/01/2018) SODIUM S/P/B 142 POTASSIUM S/P/B 3.6 CO2 27 CHLORIDE S/P/B 104 GLUCOSE 170 mg/dL CALCIUM S/P/B 10.1 BUN 25 CREATININE S/P/B 1.87(A) 0.5 - 1.0 EGFR AFR. AMER. 31 <=90 EGFR NON-AFR. AMER. 27 <=90 ALBUMIN S/P/B 3.7 3.5 - 5.0 11/01/2018 us [facility] LABORATORY Edited Resul t - Final * FOLATE (OUTSIDE LAB) (03/09/2018) FOLATE 14.0 03/09/2018 us Doc [facility] Abstract LAB-OUTSIDE/ABSTRACTED Final Result * VITAMIN B-12 (03/09/2018) VITAMIN B12 S/P/B 288 03/09/2018 us Doc [facility] Abstract LABORATORY Final Result * IRON BINDING TEST (03/09/2018) IRON BINDING CAPACITY 341 03/09/2018 us Doc [facility] Abstract LABORATORY Final Result * IRON (03/09/2018) IRON 64 03/09/2018 us Doc [facility] LABORATORY Final Result * THYROXINE, FREE (FT4) (09/13/2017) FREE T4 1.2 09/13/2017 us Doc [facility] LABORATORY Final Result * THYROID STIM HORMONE, TSH (09/13/2017) TSH 1.84 09/13/2017 us Doc [facility] LABORATORY Final Result * HEMOGLOBIN, GLYCOSYLATED (09/13/2017) HGB A1C 5.6 09/13/2017 us Doc [facility] Abstract LABORATORY Final Result * (ABNORMAL) BASIC METABOLIC PANEL (09/13/2017) SODIUM S/P/B 142 POTASSIUM S/P/B 4.6 CO2 28 CHLORIDE S/P/B 109 GLUCOSE 133 mg/dL CALCIUM S/P/B 8.4 BUN 34 CREATININE S/P/B 2.02(A) 0.5 - 1.0 EGFR AFR. AMER. 28 <=90 EGFR NON-AFR. AMER. 24 <=90 09/13/2017 us Doc [facility] Abstract LABORATORY Final Result * LIPID PANEL (09/13/2017) Pathologist [facility] CHOLESTEROL 150 HDL 46 TRIGLYCERIDES 99 NON HDL CHOLESTEROL 104 LDL (CALCULATED) 85 09/13/2017 us Doc [facility] Abstract LABORATORY Final Result * MAGNESIUM (07/18/2016) Pathologist [facility] MAGNESIUM 2.4 07/18/2016 us Doc [facility] Abstract LABORATORY Final Result * (ABNORMAL) COMPREHENSIVE METABOLIC PANEL (07/18/2016) Pathologist [facility] SODIUM S/P/B 141 POTASSIUM S/P/B 4.2 CO2 32 CHLORIDE S/P/B 104 GLUCOSE 180 CALCIUM S/P/B 8.6 BUN 51 CREATININE S/P/B 1.94 EGFR NON-AFR. AMER. 27 ALKALINE PHOSPHATASE S/P/B 52 ALT 18 AST 15 BILIRUBIN TOTAL S/P/B 0.4 ALBUMIN S/P/B 3.3(A) 3.5 - 5.0 TOTAL PROTEIN S/P/B 5.9 07/18/2016 us Doc [facility] LABORATORY Final Result * CBC (OUTSIDE LAB) (07/18/2016) Pathologist [facility] WBC 4.2 HGB 9.4 HCT 31.4 PLT 187 07/18/2016 us Doc [facility] Abstract LAB-OUTSIDE/ABSTRACTED Edite d Result - Final * LIPID PANEL (07/11/2016) CHOLESTEROL 128 HDL 42 TRIGLYCERIDES 68 LDL (CALCULATED) 72.4 07/11/2016 us Doc [facility] LABORATORY Edited Resul t - Final documented in this encounter Visit Diagnoses Not [...] Rule Out 09/12/2022 09/12/2022 09/12/2022 12:26 PM SLOT MACHINE KEY PERSON documented as of this encounter Care Teams Client Reporting Associate Relationship Specialty Start Date End Date Carl Maloney MD [address] [place] [address] PCP - General INTERNAL MEDICINE 07/03/24 Geovani Gonzalez MD [facility]. [address] [place] [address] [place] Family Support Worker CARDIOVASCULAR DISEASE 07/24/16 Enio Centeno DO [address] [place] [address] NEUROLOGY 07/03/24 Josse Alanis MD [address] [place] [address] NEPHROLOGY 07/03/24 Cristofer Schwarz MD [address] [address] Referring Physician NEPHROLOGY 07/03/24 documented as of this encounter
--- OUTSIDE RECORDS SUMMARY | 2025-07-29 16:15 | XMS_ITS | Clinical Summary ---
Author Organization [facility] Address [address] [place] [address] Care Team Providers Care Retail Center Receptionist Name Role Phone Waqas Cedillo MD Primary Care Provider [phone] Allergies No known active allergies Medications ELIQUIS 5 mg tablet Take 1 Tablet by mouth every 12 hours. 6 8 Active olmesartan (BENICAR) 40 mg tablet Take 1 Tablet by mouth daily. 5 Active diltiaZEM (TIAZAC) 420 mg Extended Release capsule Take 1 Capsule by mouth daily. 1 8 Active ezetimibe (ZETIA) 10 mg tablet Take 1 Tablet by mouth daily. 1 8 Active fesoterodine SR 24 hour (TOVIAZ) 4 mg tablet Take 8 mg by mouth daily . Active fluticasone (FLONASE) 50 mcg/spray [place], Suspension Administer 2 Sprays in each nostril 1 time daily as needed. 5 Active letrozole (FEMARA) 2.5 mg Tablet Take 1 Tablet by mouth daily. 1 8 Active TRADJENTA 5 mg Tablet Take 1 Tablet by mouth daily. 1 8 Active apixaban (ELIQUIS) 5 mg (74 tabs) Tablets, Dose Pack Take 5 mg by mouth. Active hydrALAZINE (APRESOLINE) 100 mg Tablet tablet 8 Active loratadine (CLARITIN) 10 mg tablet Take 10 mg by mouth daily. Active Active Problems Problem Noted Date Diagnosed Date History of external beam radiation therapy 08/03 Aromatase inhibitor use 08/03/2018 Morbid obesity with body mass index of 40.0-49.9 08/02/2018 Malignant neoplasm of lower- outer quadrant of right breast of female, estrogen receptor positive 08/02/2018 History of antineoplastic chemotherapy 8 Epidermal inclusion cyst 02/02/2018 SK (seborrheic keratosis) 02/02/2018 Immunizations Immunization Administration Dates Next Due Influenza Vaccine Tri Split 4+ Pf Im 09/01/2016 Social History Tobacco Use Types Packs/Day Years Used Date Smoking Tobacco: Never Alcohol Use Standard Drinks/Week Comments No 0 (1 standard drink = 0.6 oz pur e alcohol) Comments No Sex and Gender Information Value Date Recorded Sex Assigned at Not on file Legal Sex Female 4:27 AM WASH HELPER Gender Identity Not on file Sexual Orientation Not on file Last Filed Vital Signs Vital Sign Reading Time Taken Comments Blood Pressure 109/76 01/18/2019 1:48 PM CDT Pulse 75 01/18/2019 1:48 PM CDT Temperature 36.9 C (98.4 F) 01/18/2019 1:48 PM CDT Respiratory Rate 18 02/01/2018 2:33 PM CDT Oxygen Saturation 96% 01/18/2019 1:48 PM CDT Inhaled Oxygen Concentration - - Weight 112 kg (246 lb 14.4 oz) 01/18/2019 1:48 P M CDT Height 170.2 cm (5' 7) 01/18/2019 1:48 PM CDT Body Mass Index 38.67 01/18/2019 1:48 PM CDT Plan of Treatment Health Maintenance Due Date Last Done Comments DIABETES ANNUAL FOOT EXAM 1965 DIABETES ANNUAL RETINAL EXAM 1965 DIABETES HBA1C Q 6 MONTHS 1965 DIABETES MICROALBUMIN ANNUAL SCREEN 1965 LDL CHOLESTEROL ANNUAL 1965 DTAP/TDAP/TD VACCINES (1 - Tdap) 1966 ZOSTER VACCINE (1 of 2) 1997 OSTEOPOROSIS SCREENING 2012 PNEUMOCOCCAL VACCINE 50+ YEA RS (2 of 2 - PPSV23, PCV20, or PCV21) 11/24/2016 09/29/2016 RSV VACCINE (60+ or ) (1 - 1-dose 75+ series) 2022 INFLUENZA VACCINE (#1) 2025 09/29/2016, 2015 Insurance MEDICARE PART A AND B [employer] CHOICE POS II Care Teams Retail Center Receptionist Relationship Specialty Start Date End Date Waqas Cedillo MD [address] [place] [address] PCP - General Internal Medicine 01/18/19
--- OUTSIDE RECORDS SUMMARY | 2025-07-29 16:15 | XMS_ITS | Clinical Summary ---
Author Organization [facility] Address [address] [place] [address] Phone Care Team Providers Care Outcomes Specialist Name Role Phone Carl Maloney MD Primary Care Provider [phone] Chris Hughes MD Unavailable [phone] Allergies Active Allergy Reactions Criticality Noted Date Comments Elemental Sulfur Itching 01/03/2020 Medications Diltiazem HCl ER Beads 420 MG CAPSULE SR 24 HR 420 mg daily. 0 08/15/2015 Active TRADJENTA 5 MG Tablet 5 mg daily. 08/31/2016 Active Fesoterodine Fumarate (TOVIAZ) 4 MG TABLET SR 24 HR Take 8 mg by mouth daily. Active apixaban (ELIQUIS) 5 MG Tablet Take 5 mg by mouth daily. Active loratadine (CLARITIN) 10 MG Tablet Take by mouth. 08/04/2016 Active ibuprofen (MOTRIN) 200 MG Tablet Take 200 mg by mouth. 04/03/2018 Active rosuvastatin (CRESTOR) 10 MG Tablet Take 10 mg by mouth daily. 1 06/18/2019 Active candesartan (ATACAND) 16 MG Tablet Take 16 mg by mouth. 05/28/2020 Active cephALEXin (KEFLEX) 500 MG Capsule TAKE 1 CAPSULE BY MOUTH EVERY DAY 01/10/2021 Active Cholecalciferol 57872 UNIT Capsule TAKE 1 CAPSULE BY MOUTH ONCE WEEKLY FOR 8 WEEKS, THEN TAKE 1 CAPSULE MONTHLY UNTIL GONE 07/01/2020 Active Cyanocobalamin (VITAMIN B-12) 1000 MCG Tablet Take 1,000 mcg by mouth. Active folic acid (FOLVITE) 800 MCG Tablet Take 800 mcg by mouth. Active hydrALAZINE HCl 100 MG Tablet TAKE 1 TABLET BY MOUTH THREE TIMES A DAY 12/10/2020 Active Vascepa 1 g Capsule 01/13/2021 Active metoprolol tartrate (LOPRESSOR) 50 MG Tablet TAKE 1 TABLET BY MOUTH EVERY 12 HOURS 11/04/2020 Active nitroGLYCERIN (NITROSTAT) 0.[address] 1 TABLET UNDER TONGUE EVERY 5 MINUTES NEEDED FOR CHEST PAIN. IF TAKING 3RD DOSE CONTACT 911 09/19/2020 Active Active Problems Problem Noted Date Diagnosed [...] outer quadrant of right female breast 09/11/2015 Resolved Problems Problem Noted Date Diagnosed Date Resolved Date Anemia in chronic kidney disease 07/29/2016 09/02/2016 Hypercalcemia 11/20/2015 09/02/2016 Immunizations Immunization Administration Dates Next Due Influenza Vaccine 09/01/2016 Pneumococcal Vaccine, Unspecified Formulation Family History Medical History Relation Name Comments Diabetes Father Cancer Mother ovarian Hypertension Mother Relation Name Status Comments Father Mother Social History Tobacco Use Types Packs/Day Years Used Date Smoking Tobacco: Never Smokeless Tobacco: Never Alcohol Use Standard Drinks/Week Comments No 0 (1 standard drink = 0.6 oz pur e alcohol) PHQ-2 Answer Date Recorded Total Score - Questions 1-9 0 12/23 Comments Unknown Sex and Gender Information Value Date Recorded Sex Assigned at Not on file Legal Sex Female 7:22 PM CDT Gender Identity Not on file Sexual Orientation Not on file Last Filed Vital Signs Vital Sign Reading Time Taken Comments Blood Pressure 162/80 01/15/2021 2:24 PM CDT Pulse 65 01/15/2021 2:24 PM CDT Temperature 36.5 C (97.7 F) 01/15/2021 2:24 PM CDT Respiratory Rate 18 01/15/2021 2:24 PM CDT Oxygen Saturation 98% 01/15/2021 2:24 PM CDT Inhaled Oxygen Concentration - - Weight 102.8 kg (226 lb 9.6 oz) 01/15/2021 2:24 PM CDT Height 170.2 cm (5' 7) 01/15/2021 2:24 PM CDT Body Mass Index 35.49 01/15/2021 2:24 PM CDT Plan of Treatment Health Maintenance Due Date Last Done Comments Diabetes: Eye Exam 1945 Diabetes: Foot Exam 1945 Diabetes: Hemoglobin A1c 1945 Hepatitis C Virus (HCV) Screening 1945 TdaP Immunization 1945 Zoster Immunization (1 of 2) 1966 Medicare Initial AWV [id number] 06/24/2013 Pneumococcal Immunization (50+ years) (2 of 2 - PPSV23, PCV20, or PCV21) 10/27/2016 09/01/2016, 08/31/2016, 08/01/2016 Mammogram 03/11/2022 03/11/2021, 12/29/2018 Diabetes: Nephropathy Screening 03/17/2022 03/17/2021, 12/27/2019, 08/29/2018, Additional history exists Respiratory Syncytial Virus (RSV) Immunization (Adult) (1 - 1-dose 75+ series) 2022 Influenza Immunization (#1) 06/24/202507/25, 08/21/2019, 07/24/2019, Additional history exists SARS-COV-2 Immunization ( season) 2025 11/03/2021, 01/02/2021, 12/05/2020 Pneumococcal Immunization Combined Discontinued 09/01/2016, 08/31/2016, 08/01/2016 DEXA Bone Density Discontinued 06/16/2018 Hepatitis B Immunization Aged Out No longer eligible based on patient's age to complete this topic Human Papillomavirus (HPV) Immunization Aged Out No longer eligible based on patient's age to complete this topic Meningococcal Immunization (ACWY) Aged Out No longer eligible based on patient's age to complete this topic Rotavirus Immunization Aged Out No lo nger eligible based on patient's age to complete this topic Procedures Procedure Name Priority Date/Time Associated Diagnosis Comments CMP (COMPREHENSIVE METABOLIC PANEL) Routine 03/17/2021 MARYANN SCREENING BILATERAL DIGITAL W CAD W NADINE Routine 03/11/2021 MARYANN BONE DENSITOMETRY AXIAL SKELETON Routine 06/16/2018 Malignant neoplasm of lower-outer quadrant of right breast of female, estrogen receptor positive (HCC) Vitamin D deficiency Osteoporosis due to aromatase inhibitor Anemia, unspecified type from Last 3 Months or Most Recently Relevant to Health Maintenance Results * CMP (COMPREHENSIVE METABOLIC PANEL) (03/17/2021) Blood us Not On File Provider CHEMISTRY ORDERABLES Final Result * MARYANN SCREENING BILATERAL DIGITAL W CAD W NADINE (03/11/2021) Anatomical Region Laterality Modality breast Bilateral Mammography us Not On File Provider IMG MAMMO ORDERABLES Final Result * MARYANN BONE DENSITOMETRY AXIAL SKELETON (06/16/2018) Anatomical Region Laterality Modality BODY N/A Other us Danae Olvera [employer] OFFICER, GOLF [employer]UB MAKER IMG DEXA ORDERABLES Final Result from Last 3 Months or Most Recently Relevant to Health Maintenance Insurance [employer] MEDICARE Care Teams Outcomes Specialist Relationship Specialty Start Date End Date Carl Maloney MD PCP - General Internal Medicine 09/17/15 Chris Hughes MD Consulting Physician Oncology 03/04/17
--- OUTSIDE RECORDS SUMMARY | 2025-07-29 16:15 | XMS_ITS | Encounter Summary ---
Author Organization [facility] Address [facility] [place] [address] Care Team Providers Care Properties Supervisor Name Role Phone Geovani Gonzalez MD Unavailable [phone] Enio Centeno DO Unavailable [phone] Josse Alanis MD Unavailable Cristofer Schwarz MD Unavailable [phone] Carl Maloney MD Primary Care Provider [phone] Encounter Details Date Type Department Care Team (Late st Contact Info) Description 07/23/2024 Open English Message Enc [place] [facility] [facility] THREE [facility], [address] [address] Geovani Gonzalez MD Three [facility]. [address] [id number] Heart rate data Social History Tobacco Use Types Packs/Day Years Used Date Smoking Tobacco: Never Smokeless Tobacco: Never Alcohol Use Standard Drinks/Week Comments No 0 (1 standard drink = 0.6 oz pur e alcohol) [facility] Utilities Answer Date Recorded In the past 12 months has e electric, gas, oil, or water [facility] threatened to shut off services in your [...] often do you attend chur ch or mandaeism services? 1 to 4 times per year 01/08/2024 Do you belong to any clubs o r organizations such as anglican groups, unions, fraternal or athletic groups, or [...] and heating? Not hard at all 01/08/2024 [facility] [place] of Occupat ional Health - Occupational Stress [...] place to sleep or slept in a custodial (including now)? No 01/08/2024 Comments No Sex [...] AM ROSEANNT Rocky Bloom RN Active * Do you [...] encounter Progress Notes * SHAHLA Le - 07/24/2024 1:18 PM CDT Like a smart watch, [employer] watch or fit bit documented in this encounter Plan of Treatment Upcoming Encounters Date Type Department Care Team (Late st Contact Info) Description 10/01/2025 2:30 PM TRAFFIC OPERATIONS ENGINEER Office Visit [facility] THREE [facility], [address] [place], [place] [phone] Cristina Palacios FNP 3 [facility] [address] [place], [place] [phone] documented as of this encounter Goals Goal Patient Goal Type Associated Problems Recent Progress Patient-Stated? Author Family - family caregiver with be involved in care transitions and discharge planning General No Camryn Monet, GAS PLUMBERqa reviewer - family caregiver with be involved in [...] documented as of this encounter Care Teams Properties Supervisor Relationship Specialty Start Date End Date Carl Maloney MD [address] [place] [address] PCP - General INTERNAL MEDICINE 07/03/24 Geovani [facility] MD [facility] [address] [place] [address] [place] [employer] Manufacturing Operator CARDIOVASCULAR DISEASE 07/24/16 Enio Centeno DO [address] [place] [address] NEUROLOGY 07/03/24 Josse Alanis MD [address] [place] [address] NEPHROLOGY 07/03/24 Cristofer Schwarz MD [address] [place] [address] Referring Physician NEPHROLOGY 07/03/24 documented as of this encounter
--- OUTSIDE RECORDS SUMMARY | 2025-07-29 16:15 | XMS_ITS | Encounter Summary ---
Author Organization [facility] Address [facility] [place] [address] Care Team Providers Care Reforestation Worker Name Role Phone Geovani Gonzalez MD Unavailable [phone] Enio Centeno DO Unavailable [phone] Josse Alanis MD Unavailable Cristofer Schwarz MD Unavailable [phone] Carl Maloney MD Primary Care Provider [phone] Encounter Details Date Type Department Care Team (Late st Contact Info) Description 01/25/2025 Prep for Procedure [facility] THREE [facility], [facility] [address] [place], [place] [phone] Nikhil Lamas MD [facility]. [facility] [address] [place] [address] Social History Tobacco Use Types Packs/Day Years Used Date Smoking Tobacco: Never Smokeless Tobacco: Never Alcohol Use Standard Drinks/Week Comments No 0 (1 standard drink = 0.6 oz pur e alcohol) [facility] Utilities Answer Date Recorded In the past 12 months has e electric, gas, oil, or water company [...] often do you attend chur ch or orthodox services? 1 to 4 times per year [...] and heating? Not hard at all 01/08/2024 [facility] [place] of Occupat ional Health - Occupational Stress [...] place to sleep or slept in a senior care (including now)? No 01/08/2024 Comments No Sex [...] Author Status No 01/08/2024 12:59 AM Rocky Claudio, BASSEM Active * Do you have serious difficulty [...] st Contact Info) Description 10/01/2025 2:30 PM MATERIAL DAMAGE ADJUSTER Office Visit [facility] THREE [facility], [address] [place], [place] [phone] Cristina Palacios FNP [address] [facility] [address] [place], [place] [phone] documented as of this encounter Goals Goal Patient Goal Type Associated Problems Recent Progress Patient-Stated? Author Family - family caregiver with be involved in care transitions and discharge planning General No Camryn Monet, PROGRAMMER ANALYST CONSULTANTenvelope sealer operator - family caregiver with be involved in care transitions and discharge planning General No [place], BASSEM documented as of this encounter Visit Diagnoses Not on filedocumented in this encounter Additional Health Concerns Infection Onset Date Last Indicated Resolved Time ESBL - Extended Spectrum Bet a-lactamase Comment:Added from external infection.+ESBL Urine BJC 08/23/21 08/23/2021 MRSA Comment:04/20/22 +MRSA Nasal 04/21/2022 07/22/2025 documented as of this encounter Care Teams Reforestation Worker Relationship Specialty Start Date End Date Carl Maloney MD [address] - [facility] [address] [place] [address] PCP - General INTERNAL MEDICINE 07/03/24 Geovani Gonzalez MD Three [facility]. [address] [address] [place] School Inspector CARDIOVASCULAR DISEASE 07/24/16 Enio Centeno DO [address] [place] [address] NEUROLOGY 07/03/24 Josse Alanis MD [address] [place] [address] NEPHROLOGY 07/03/24 Cristofer Schwarz MD [address] [place] [address] Referring Physician NEPHROLOGY 07/03/24 documented as of this encounter
--- OUTSIDE RECORDS SUMMARY | 2025-07-29 16:15 | XMS_ITS | Clinical Summary ---
Author Organization [facility] [employer] Address [address] [place] [address] Care Team Providers Care Counter Cutter Name Role Phone Carl Maloney MD Primary Care Provider [phone] Source Comments [facility] [employer],non-owned Affiliates and Associated Physician Practices is amultiple site organization consisting of ambulatory clinics and hospital sitesin [place], [place], [place] and [place]. This disclosure is being madepursuant to the Care Everywhere program and may not contain all information available regarding this patient. Last updated 18.[facility] [employer] [facility] Social History Tobacco Use Types Packs/Day Years Used Date Smoking Tobacco: Never Assessed Comments Unknown Sex and Gender Information Value Date Recorded Sex Assigned at Not on file Legal Sex Female 6:23 PM LINING IRONER Gender Identity Not on file Sexual Orientation Not on file Plan of Treatment Health Maintenance Due Date Last Done Comments DTAP/TDAP/TD VACCINES (1 - Tdap) 1966 PNEUMOCOCCAL VACCINE 50+ (1 of 1 - PCV) 1997 ZOSTER VACCINE (1 of 2) 1997 Respiratory Syncytial Virus (RSV) Vaccine Pt: or over 60 yrs (1 - 1-dose 75+ series) 2022 DEPRESSION SCREENING 10/24/2024 COVID-19 VACCINE (3 - 2024- season) 2025 01/02/2021, 12/05/2020 INFLUENZA VACCINE (#1) 2025 9, 09/29/2016, 09/01/2016, Additional history exists BONE DENSITY TESTING Completed 06/16/2018 HEPATITIS C SCREENING Completed 05/20/2022 HEPATITIS B VACCINE Aged Out No longe r eligible based on patient's age to complete this topic HIB VACCINE Aged Out No longer eligi ble based on patient's age to complete this topic HPV VACCINE Aged Out No longer eligi ble based on patient's age to complete this topic MENINGOCOCCAL (Group B) VACCINE SHARED DECISION-MAKING Aged Out No longer eligible based on patient's age to complete this topic MENINGOCOCCAL GROUPS A/C/Y/W VACCINE Aged Out No longer eligible based on patient's age to complete this topic Insurance AETNA Care Teams Counter Cutter Relationship Specialty Start Date End Date Carl Maloney MD [address] [place] [address] PCP - General 08/06/08
--- OUTSIDE RECORDS SUMMARY | 2025-07-29 16:15 | XMS_ITS | Encounter Summary ---
Author Organization [facility] Address [facility] [place] [address] Care Team Providers Care Lamp Developer Name Role Phone Geovani Gonzalez MD Unavailable [phone] Enio Centeno DO Unavailable Josse Alanis MD Unavailable Cristofer Schwarz MD Unavailable [phone] Carl Maloney MD Primary Care Provider [phone] Encounter Details Date Type Department Care Team (Late st Contact Info) Description 07/29/2025 Property Owl Message Enc [facility] THREE [facility], [facility] [address] [place] [address] Nikhil Lamas MD [facility]. [facility] [address] [place] [address] appointment Social History Tobacco Use Types Packs/Day Years [...] How often do you attend chur or restoration services? 1 to 4 times per year 01/08/2024 Do you belong to any clubs o r organizations such as adventism groups, unions, fraternal or athletic groups, or [...] and heating? Not hard at all 07/23/2025 [facility] [place] of Occupat ional Health - Occupational Stress [...] place to sleep or slept in a jail (including now)? No 01/08/2024 Housing Stability Vital Sign Answer Zaheer e Recorded In the last 12 months, was t here a time when you were not able to pay the mortgage or rent on time? No 07/23/2025 In the past 12 months, how m any times have you moved where you were living? 0 07/23/2025 At any time in the past 12 m [facility], were you homeless or living in a jail (including now)? No 07/23/2025 Comments No Sex [...] Contact Info) Description 10/01/2025 2:30 PM FUR GRADER Office Visit [facility] THREE [facility] [address] [place], [place] [phone] Cristina Palacios FNP 3 [facility] [address] [place], [place] [phone] documented as of this encounter Goals Goal Patient Goal Type Associated Problems Recent Progress Patient-Stated? Author Family - family caregiver with be involved in care transitions and discharge planning General No Camryn Monet, AIR POLLUTION AUDITORspecialist field engineer - family caregiver with be involved in care transitions and discharge planning General No [place], industrial gas fitter helper - family caregiver with be involved in [...] documented as of this encounter Care Teams Lamp Developer Relationship Specialty Start Date End Date Carl Maloney MD [address] [place] [address] PCP - General INTERNAL MEDICINE 07/03/24 Geovani Gonzalez MD Three [facility] [address] [place] [address] [place] [employer] Development Engineer CARDIOVASCULAR DISEASE 07/24/16 Enio Centeno DO [address] [place] [address] NEUROLOGY 07/03/24 Josse Alanis MD [address] [place] [address] NEPHROLOGY 07/03/24 Cristofer Schwarz MD [address] [place] [address] Referring Physician NEPHROLOGY 07/03/24 documented as of this encounter
--- OUTSIDE RECORDS SUMMARY | 2025-07-29 16:15 | XMS_ITS | Encounter Summary ---
Author Organization [facility] Address [facility] [place] [address] Care Team Providers Care Piling Setter Name Role Phone Geovani Gonzalez MD Unavailable [phone] Enio Centeno DO Unavailable [phone] Josse Alanis MD Unavailable Cristofer Schwarz MD Unavailable [phone] Carl Maloney MD Primary Care Provider [phone] Encounter Details Date Type Department Care Team (Late st Contact Info) Description 07/20/2024 [employer] Message Enc [place] [facility] THREE [facility], [address] [address] Geovani Gonzalez MD Three [facility]. [facility] [address] [place] [address] Latest ekg Social History Tobacco Use Types Packs/Day Years Used Date Smoking Tobacco: Never Smokeless Tobacco: Never Alcohol Use Standard Drinks/Week Comments No 0 (1 standard drink = 0.6 oz pur e alcohol) [facility] Utilities Answer Date Recorded In the past 12 months has th e electric, gas, oil, or water [employer] threatened to shut off services in your [...] often do you attend chur ch or roman catholic services? 1 to 4 times per year 01/08/2024 Do you belong to any clubs o r organizations such as protestant groups, unions, fraternal or athletic groups, or [...] and heating? Not hard at all 01/08/2024 [facility] [place] of Occupat ional Health - Occupational Stress [...] st Contact Info) Description 10/01/2025 2:30 PM INSIDE ACCOUNT EXECUTIVE Office Visit [place] [facility] THREE [facility], [address] [place], [place] [phone] Cristina Palacios FNP 3 [facility] [address] [place], [place] [phone] documented as of this encounter Goals Goal Patient Goal Type Associated Problems Recent Progress Patient-Stated? Author Family - family caregiver with be involved in care transitions and discharge planning General No Camryn Monet, TOWER TECHNICIANdirector physical - family caregiver with be involved in [...] documented as of this encounter Care Teams Piling Setter Relationship Specialty Start Date End Date Carl Maloney MD [address] - [address] [address] PCP - General INTERNAL MEDICINE 07/03/24 Geovani Gonzalez MD [facility]. [address] [address] [place] Cotton Farmer CARDIOVASCULAR DISEASE 07/24/16 Enio Centeno DO [address] [place] [address] NEUROLOGY 07/03/24 Josse Alanis MD [address] [place] [address] NEPHROLOGY 07/03/24 Cristofer Schwarz MD [address] [facility] [address] [place] [address] Referring Physician NEPHROLOGY 07/03/24 documented as of this encounter
--- OUTSIDE RECORDS SUMMARY | 2025-07-29 16:15 | XMS_ITS | Clinical Summary ---
Author Organization [facility] [address] Address [address] [place] [address] Care Team Providers Care In Flight Refueling Operator Name Role Phone Carl Maloney MD Primary Care Provider [phone] Allergies Active Allergy Reactions Criticality Noted Date Comments Bupropion Unknown 04/12/2022 Per [place] documentation Sulfa (Sulfonamide Antibiotics) Itching Low 08/01/2021 Medications cyanocobalamin (Vitamin B-12) 1,000 mcg tabletIndicatio ns:Prevention of Vitamin B12 Deficiency Take 1 tablet (1,000 mcg total) by mouth every morning Active Vascepa 1 gram capsule Take 2 g by mouth 2 (two) times a day 03/22/20 21 Active NovoLOG 100 unit/mL (3 mL) pen for injectionIndica tions:type 2 diabetes mellitus Inject 4-12 Units under the skin 3 (three) times a day before meals 4 units if BG 100-200 8 units if BG 201 to 300 12 units if BG over 300 04/26/20 21 Active Tradjenta 5 mg tabletIndicatio ns:type 2 diabetes mellitus Take 5 mg by mouth every morning 04/22/20 21 Active nitroglycerin (NITROSTAT) 0.4 mg SL tabletIndicatio ns:acute episode of anginal pain Place 1 tablet (0.4 mg total) under the tongue every 5 (five) minutes as needed 07/28/20 20 Active polyethylene glycol (MIRALAX) 17 gram/dose powderIndicatio ns:constipation Take 17 g by mouth every morning Active rosuvastatin (CRESTOR) 20 mg tabletIndicatio ns:hyperlipidem ia Take 20 mg by mouth every morning 04/08/20 21 Active cholecalciferol (VITAMIN D-3) 50,000 unit capsuleIndicati ons:Vitamin D Deficiency Take 1 capsule by mouth once a week group home record states once daily which must be an error 07/01/20 Active folic acid (FOLVITE) 800 mcg tabletIndicatio ns:Folate Deficiency Take 800 mcg by mouth every morning Activ e BASAGLAR 100 unit/mL (3 mL) pen for injection Inject 15 Units under the skin daily Was previously on , but has only been needing 15 daily recently 100 mL 06/18/20 21 Active Additional Information Patient taking differently:15 Units subcutaneousEvery morning, Was previously on , but has only been needing 15 daily recently,Indications: type 2 diabetes mellitus, Informant: [facility]ust[facility]ial Care Facility, Reported on 09/21/2021 metoprolol (LOPRESSOR) 100 mg tabletIndicatio ns:Atrial Arrhythmia,hype rtension Take 1 tablet (100 mg total) by mouth every morning Active Eliquis 5 mg tabletIndicatio ns:atrial fibrillation Take 1 tablet (5 mg total) by mouth 2 (two) times a day 09/26/20 21 Active acetaminophen (TYLENOL) 500 mg tablet Take 2 tablets (1,000 mg total) by mouth every 6 (six) hours as needed for pain 30 tablet 09/24/20 Active Additional Information Patient taking differently: 650 mgoral Every 6 hours PRN, pain, Reported on 08/14/2024 traZODone (DESYREL) 50 mg tablet Take 50 mg by mouth nightly Active methylphenidate HCl (RITALIN) 5 mg tablet Take 1 tablet (5 mg total) by mouth 2 (two) times a day Active rosuvastatin (CRESTOR) 10 mg tablet Take 1 tablet (10 mg total) by mouth daily 07/11/20 23 Active methylphenidate HCl (RITALIN) 10 mg tablet TAKE 1 TABLET AT BREAKFAST AND 1 TABLET AT LUNCH 06/16/20 23 Active potassium chloride ER 10 mEq CR tablet Take 1 tablet/capsule (10 mEq total) by mouth daily 06/25/20 23 Active BD Lindsay 2nd Gen Pen Needle 32 gauge x needle 09/25/20 23 Active nitrofurantoin (MACRODANTIN) 50 mg capsule 04/11/20 Active metoprolol XL (TOPROL-XL) 50 mg extended release tablet Take 0.5 tablets (25 mg total) by mouth every 12 (twelve) hours 05/11/20 Active L-Methylfolate 15 mg tablet 15 MG ORALLY DAILY 05/31/20 Active hydrALAZINE (APRESOLINE) 25 mg tablet Take 1 tablet (25 mg total) by mouth 3 (three) times a day 07/10/20 Active fluconazole (DIFLUCAN) 150 mg tablet 07/10/20 Active cefuroxime (CEFTIN) 500 mg tablet Take 1 tablet (500 mg total) by mouth 2 (two) times a day 04/24/20 Active cefuroxime (CEFTIN) 250 mg tablet 250 MG ORALLY DAILY 05/04/20 Active bumetanide (BUMEX) 1 mg tablet Take 1 tablet (1 mg total) by mouth every other day Active ARIPiprazole (ABILIFY) 2 mg tablet Take 1 tablet (2 mg total) by mouth nightly Active zolpidem (AMBIEN) 5 mg tablet Take 1 tablet (5 mg total) by mouth nightly 30 tablet 5 07/29/20 Active zolpidem (AMBIEN) 5 mg tablet TAKE 1 TABLET BY MOUTH EVERY DAY AT NIGHT 30 tablet 5 03/13/20 25 2024 Disconti nued(Reo rder) Active Problems Problem Noted Date Diagnosed Date [...] (09/01/2021): Added automatically from request for surgery [id number] Altered mental status, unspecified 06/06/2021 Castleman's disease [...] Cerebrovascular accident (CVA) Hypertension Seizure Thyroid nodule Immunizations Immunization Administration Dates Next Due Influenza, Quadrivalent, Hig h Dose, Preservative Free, Intrr 08/01/2021 Surgical History Surgery Date Site/Laterality Comments FL FLUORO GUIDED LUMBAR PUNCTURE 06/11/2021 Right LUMBAR PUNCTURE WO INJECTION, DIAGNOSTIC 08/06/2021 N/A LUMBAR PUNCTURE WO INJECTION, DIAGNOSTIC 08/20/2021 N/A CENTRAL LINE PLACEMENT > 5 YEARS 09/01/2021 N/A BREAST SURGERY 10/24/2013 - 10/23/2014 Right lumpecetomy PORTACATH PLACEMENT 10/24/2013 - 10/23/2014 Left removed 2018 LITHOTRIPSY ? 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 More than three times a week 09/03/2021 How often do you get togethe r with friends or relatives? Once a week 09/03/2021 How often do you attend chur ch or religion services? Patient declined 09/03/2021 Do you belong to any clubs o r organizations such as hinduism groups, unions, fraternal or athletic groups, or school groups? Patient declined 09/03/2021 How often do you attend meet ings of the clubs or organizations you belong to? Patient declined 09/03/2021 Are you , , di vorced, , never , or living with a partner? 09/03/2021 AUDIT-C Answer Date Recorded Q1: How often do you have a drink containing alc ohol? Never 09/16/2021 Average Number of Drinks Not on file 021 Frequency of Binge Drinking Not on file 08/25 Overall Financial Resource Strain (CARDIA) Answe r Date Recorded How hard is it for you to pa y for the very basics like food, housing, medical care, and heating? Not hard at all 09/03/2021 Hunger Vital Sign Answer Date Recorded Within the past 12 months, y ou worried that your food would run out before you got the money to buy more. Never true 09/03/20 21 Within the past 12 months, t he food you bought just didn't last and you didn't have money to get more. Never true 09/03/2021 PRAPARE - Transportation Answer Date Re corded In the past 12 months, has l ack of transportation kept you from medical appointments or from getting medications? No 08/24 In the past 12 months, has l ack of transportation kept you from meetings, work, or from getting things needed for daily living? No 09/03/2021 Housing Stability Vital Sign Answer Zaheer e Recorded In the last 12 months, was t here a time when you were not able to pay the mortgage or rent on time? No 09/03/2021 In the last 12 months, how many places have you lived? 1 09/03/2021 In the last 12 months, was t here a time when you did not have a steady place to sleep or slept in a senior care (including now)? No 09/03/2021 Comments No Sex and Gender Information Value Date Recorded Sex Assigned at Not on file Legal Sex Female 3:26 AM DRAW FRAME OPERATOR Gender Identity Not on file Sexual Orientation Not on file Obstetrics History Last Filed Vital Signs Vital Sign Reading Time Taken Comments Blood Pressure 115/78 08/14/2024 3:12 PM CDT Pulse 86 08/14/2024 3:12 PM CDT Temperature 36.8 C (98.3 F) 08/14/2024 3:12 PM CDT Respiratory Rate 18 09/25/2021 5:22 PM DRAW FRAME OPERATOR Oxygen Saturation 95% 08/14/2024 3:12 PM CDT Inhaled Oxygen Concentration - - Weight 97.5 kg (215 lb) 08/14/2024 3:12 PM CDT Height 170.2 cm (5' 7) 08/14/2024 3:12 PM CDT Body Mass Index 33.67 08/14/2024 3:12 PM CDT Plan of Treatment Health Maintenance Due Date Last Done Comments Albumin Creatinine Ratio, Urine 1947 Depression Screening 1947 Hepatitis C Screening 1945 Dilated Eye Exam 1947 Foot Exam 1947 DTaP/Tdap/Td Vaccine (1 - Tdap) 1958 Hepatitis B Screening 1965 Zoster Vaccine (1 of 2) 1997 Well Visit 65+ 2012 Pneumococcal vaccine 65+ (2 of 2 - PPSV23, PCV20, or PCV21) 07/26/2017 05/31/2017, 09/29/2016, 09/01/2016, Additional history exists Osteoporosis Screening-Bone Density Scan 06/16/2020 06/16/2018, 06/16/2018 Hemoglobin A1C 01/30/2022 08/01/2021, 1006/2021, 06/09/2021 eGFR 09/03/2022 09/03/2021, 08/24, 09/01/2021, Additional history exists Fall Risk Assessment 09/25/2022 09/25/2021 Lipid Panel 05/19/2023 05/19/2022, 100 06/2021, 08/01/2021 Covid-19 Vaccine (3 - 2024-2 6 season) 2025 01/02/2021, 12/05/2020 Influenza Vaccine (#1) 2025 , 08/21/2019, 07/24/2019, Additional history exists Breast Cancer Screening-Mammogram Discontinued 021 Medical Devices Implanted Type Area Remote Sensing Surveyor Device Identifier Shelf Expiration Date Model / Serial / Lot Unknown Metal Abdomen Explanted Type Area Remote Sensing Surveyor Device Identifier Shelf Expiration Date Model / Serial / Lot [employer] [id number] 6fr 24cm 145cm Radiopaque Positioner Filiform Flexible Tip - [id number] Implanted:Qty: 1 on 09/03/2021 by Winston Hector MD at [facility] Explanted:Qty: 1 on 09/24/2021 by Keaton Long MD at [facility] Stent Right: Ureter [employer] 03/31/2024 [id number] / / [id number] [employer] [id number] 6fr 24cm 145cm Radiopaque Positioner Filiform Flexible Tip - [id number] - [id number] Implanted:Qty: 1 on 09/03/2021 by Winston Hector MD at [facility] Explanted:Qty: 1 on 09/24/2021 by Keaton Long MD at [facility] Stent Left: Ureter [employer] [id number] 03/31/2024 [id number] / [id number] / [id number] [employer] [id number] Universa 6fr 26cm Radiopaque Positioner Monofilament Tether 2 - [id number] Implanted:Qty: 1 on 09/24/2021 by Zeus Gee MD at [facility] Explanted:Qty: 1 on 10/21/2021 Stent Right: Ureter [employer] 07/25/2023 [id number] / / [employer] [id number] Universa 6fr 26cm Radiopaque Positioner Monofilament Tether 2 - [id number] Implanted:Qty: 1 on 09/24/2021 by Zeus Gee MD at [facility] Explanted:Qty: 1 on 10/21/2021 Stent Left: Ureter [employer] 06/04/2024 [id number] / / Procedures Procedure Name Priority Date/Time Associated Diagnosis Comments EGFR Routine 09/03/2021 9:28 PM DRAW FRAME OPERATOR HEMOGLOBIN A1C STAT 08/01/2021 11:03 AM CDT LIPID PANEL STAT 08/01/2021 11:03 AM CDT from Last 3 Months or Most Recently Relevant to Health Maintenance Results * (ABNORMAL) eGFR (09/03/2021 9:28 PM DRAW FRAME OPERATOR) eGFR 21(L) 90 - 130 mL/min/1.7 3 m2 [facility] Comment: Interpretive Data Reference Interval Normal >/= 90 mL/min/1.73m2 Mildly decreased* 60 - 89 mL/min/1.73m2 Mildly to moderately decreased 45 - 59 mL/min/1.73m2 Moderately to severely decreased 30 - 44 mL/min/1.73m2 Severely decreased 15 - 29 mL/min/1.73m2 Kidney Failure < 15 mL/min/1.73m2 *Relative to young adult level Estimated glomerular filtration rate is determined by the CKD-EPI equation recommended by the National Kidney Foundation (KDIGO 2012 Clinical Practice Guideline for the Evaluation and Management of Chronic Kidney Disease. Kidney Intnl Suppl Oct 2012;3:1). The CKD-EPI equation should not be used for patients with unstable renal function and has not been validated in children and those over 70. Current interpretive data was last reviewed 2020 Blood 09/03/2021 9:28 PM DRAW FRAME OPERATOR 09/03/2021 9:47 PM DRAW FRAME OPERATOR us Jose Carlos Veloz MD LAB BLOOD ORDERABLES Final Result [facility] [place] [address] * (ABNORMAL) Hemoglobin A1c (08/01/2021 11:03 AM CDT) Hgb A1C 6.5(H) 4.0 - 5.6 % [facility] Estimated Average Glucose 140 mg/dL [facility] Comment: The ADA recommends reporting an estimated Average Glucose (eAG) with all Hemoglobin A1c results using the equation derived from a study of 507 normal and diabetic adults. Minority populations were underrepresented and children were not included. (Diabetes Care 2020; 43(S1): S66-S76). The eAG is not equivalent to a fasting glucose. Blood 08/01/2021 11:0 3 AM CDT 08/01/2021 11:22 AM CDT us Enio Corrales MD LAB BLOOD ORDERABLES Final Result [facility] [place] [address] * Lipid panel (08/01/2021 11:03 AM CDT) Cholesterol 87 30 - 199 mg/dL [facility] Comment: Interpretive Data Ages < or = 19 years Acceptable: <170 mg/dL Borderline high: 170-199 mg/dL High: >or= 200 mg/dL Ages > or = 20 years Desirable: <200 mg/dL Borderline high: 200-239 mg/dL High: >or= 240 mg/dL Literature References: 1. Expert Panel on Integrated Guidelines for Cardiovascular Health and Risk Reduction in Children and Adolescents. Pediatrics 2011;128:S213 2. NCEP Expert Panel. Circulation 2004;110:227 Current Interpretive Data was last revised on 2018. Triglycerides 70 <=149 mg/dL [facility] Comment: Interpretive Data Ages < or = 9 years Acceptable: <75 mg/dL Borderline high: 75-99 mg/dL High: >or= 100 mg/dL Ages 10 to 20 years Acceptable: <90 mg/dL Borderline high: 90-129 mg/dL High: >or= 130 mg/dL Ages > or = 20 years Desirable: <150 mg/dL Borderline high: 150-199 mg/dL High: 200-499 mg/dL Very high: >or= 499 mg/dL Literature References: 1. Expert Panel on Integrated Guidelines for Cardiovascular Health and Risk Reduction in Children and Adolescents. Pediatrics 2011;128:S213 2. NCEP Expert Panel. Circulation 2004;110:227 Current Interpretive Data was last revised on 2018. HDL 48 >=40 mg/dL [facility] Comment: Interpretive Data Ages < or = 19 years Acceptable: >45 mg/dL Borderline low: 40-45 mg/dL Low: <40 mg/dL Ages > or = 20 years Desirable: >or= 60 mg/dL Low: <40 mg/dL Literature References: 1. Expert Panel on Integrated Guidelines for Cardiovascular Health and Risk Reduction in Children and Adolescents. Pediatrics 2011;128:S213 2. NCEP Expert Panel. Circulation 2004;110:227 Current Interpretive Data was last revised on 2018. LDL, calculated 25 <=129 mg/dL [facility] Comment: Interpretive Data Ages < or = 19 years Acceptable: <110 mg/dL Borderline high: 110-129 mg/dL High: >or= 130 mg/dL Ages > or = 20 years Optimal: <100 mg/dL Near optimal: 100-129 mg/dL Borderline high: 130-159 mg/dL High: >160 mg/dL Literature References: 1. Expert Panel on Integrated Guidelines for Cardiovascular Health and Risk Reduction in Children and Adolescents. Pediatrics 2011;128:S213 2. NCEP Expert Panel. Circulation 2003;110:227 Current Interpretive Data was last revised on 2018. Non-HDL Cholesterol 39 mg/dL [facility] Comment: Interpretive Data Ages < or = 19 years Acceptable: <120 mg/dL Borderline high: 120-144 mg/dL High: >145 mg/dL Ages > or = 20 years When triglycerides are >200 mg/dL, Non-HDL cholesterol is a secondary target of therapy with treatment goals that are 30 mg/dL greater than the LDL cholesterol target. Literature References: 1. Expert Panel on Integrated Guidelines for Cardiovascular Health and Risk Reduction in Children and Adolescents. Pediatrics 2011;128:S213 2. NCEP Expert Panel. Circulation 2004;110:227 Current Interpretive Data was last revised on 2018. Chol/HDL ratio 2 [facility] Blood 08/01/2021 11:0 3 AM CDT 08/01/2021 11:18 AM CDT us Enio Corrales MD LAB BLOOD ORDERABLES Final Result [facility] [place] [address] from Last 3 Months or Most Recently Relevant to Health Maintenance Additional Health Concerns Infection Onset Date Last Indicated MDR gram neg/ESBL 08/23/2021 08/23/2021 Insurance [facility] T [facility] AETNA MEDICARE MEDICARE [facility] Address: [address] [address] [place] [address] AETNA [facility] PPO AETNA MEDICARE Advance Directives For more information, please contact: [phone] * Full Code (Latest Code Status on File) Date Activated Date Inactivated Comments 09/24/2021 4:01 PM 09/25/2021 9:57 PM * Full Code Date Activated Date Inactivated Comments 08/01/2021 6:55 PM 09/04/2021 6:22 PM * Full Code Date Activated Date Inactivated Comments 06/06/2021 3:27 PM 06/18/2021 3:40 PM Care Teams In Flight Refueling Operator Relationship Specialty Start Date End Date Carl Maloney MD PCP - General Internal Medicine 07/07/20
--- OUTSIDE RECORDS SUMMARY | 2025-07-29 16:16 | XMS_ITS | Encounter Summary ---
Author Organization [facility] Address [facility] [place] [address] Care Team Providers Care Belt Operator Name Role Phone Geovani Gonzalez MD Unavailable [phone] Enio Centeno DO Unavailable [phone] Josse Alanis MD Unavailable Cristofer Schwarz MD Unavailable [phone] Carl Maloney MD Primary Care Provider [phone] Encounter Details Date Type Department Care Team (Late st Contact Info) Description 02/08/2024 Word[facility] Message Enc [facility], [address] [address] Geovani Gonzalez MD [facility]. [address] [address] Kidneys Social History Tobacco Use Types Packs/Day Years Used Date Smoking Tobacco: Never Smokeless Tobacco: Never Alcohol Use Standard Drinks/Week Comments No 0 (1 standard drink = 0.6 oz pur e alcohol) [facility] Utilities Answer Date Recorded In the [...] often do you attend chur ch or restorationism services? 1 to 4 times per year 01/08/2024 Do you belong to any clubs o r organizations such as islam groups, unions, fraternal or athletic groups, or [...] and heating? Not hard at all 01/08/2024 [facility] [place] of Occupat ional Health - Occupational Stress [...] place to sleep or slept in a group home (including now)? No 01/08/2024 Comments No Sex [...] st Contact Info) Description 10/01/2025 2:30 PM MANUFACTURING DIRECTOR Office Visit [facility], [address] [place], [place] [id number] Cristina Palacios FNP [address] [facility] [address] [place], [place] [id number] documented as of this encounter Goals Goal Patient Goal Type Associated Problems Recent Progress Patient-Stated? Author Family - family caregiver with be involved in care transitions and discharge planning General No Camryn Monet, CONDUIT REAMER OPERATORveterans services specialist - family caregiver with be involved [...] documented as of this encounter Care Teams Belt Operator Relationship Specialty Start Date End Date Carl Maloney MD [address] - [address] [address] PCP - General INTERNAL MEDICINE 07/03/24 Geovani Gonzalez MD [facility]. [address] [address] [place] Erp Manager CARDIOVASCULAR DISEASE 07/24/16 Enio Centeno DO [address] [place] [address] NEUROLOGY 07/03/24 Josse Alanis MD [address] [place] [address] NEPHROLOGY 07/03/24 Cristofer Schwarz MD [address] [place] [address] Referring Physician NEPHROLOGY 07/03/24 documented as of this encounter
--- OUTSIDE RECORDS SUMMARY | 2025-07-29 16:16 | XMS_ITS | Encounter Summary ---
Author Organization [facility] Address [facility] [place] [address] Care Team Providers Care Health Services Manager Name Role Phone Geovani Gonzalez MD Unavailable [phone] Enio Centeno DO Unavailable [phone] Josse Alanis MD Unavailable Cristofer Schwarz MD Unavailable [phone] Carl Maloney MD Primary Care Provider [phone] Encounter Details Date Type Department Care Team (Late st Contact Info) Description 06/21/2025 Prep for Procedure [facility], [facility] [address] [place], [place] [id number] Nikhil Lamas MD [facility]. [facility] [address] [place] [address] Social History Tobacco Use Types Packs/Day Years Used Date Smoking Tobacco: Never Smokeless Tobacco: Never Alcohol Use Standard Drinks/Week Comments No 0 (1 standard drink = 0.6 oz pur e alcohol) [facility] Utilities Answer Date Recorded In [...] often do you attend chur ch or zoroastrian services? 1 to 4 times per year 01/08/2024 Do you belong to any clubs o r organizations such as mormonism groups, unions, fraternal or athletic groups, or [...] and heating? Not hard at all 01/08/2024 [facility] [place] of Occupat ional Health - Occupational Stress [...] place to sleep or slept in a usp (including now)? No 01/08/2024 Comments No Sex [...] st Contact Info) Description 10/01/2025 2:30 PM PAINT DEPARTMENT SUPERVISOR Office Visit [facility], [address] [place], [place] [phone] Cristina Palacios FNP [address] [facility] [address] [place], [place] [phone] documented as of this encounter Goals Goal Patient Goal Type Associated Problems Recent Progress Patient-Stated? Author Family - family caregiver with be involved in care transitions and discharge planning General No Camryn Monet, CONTRACTS ADMINISTRATORdeep fryer assembler - family caregiver with be involved in [...] documented as of this encounter Care Teams Health Services Manager Relationship Specialty Start Date End Date Carl Maloney MD [address] - [facility] [address] [place] [address] PCP - General INTERNAL MEDICINE 07/03/24 Geovani Gonzalez MD [facility]. [address] [address] [place] Switchboard Operator Supervisor CARDIOVASCULAR DISEASE 07/24/16 Enio Centeno DO [address] [place] [address] NEUROLOGY 07/03/24 Josse Alanis MD [address] [place] [address] NEPHROLOGY 07/03/24 Cristofer Schwarz MD [address] [place] [address] Referring Physician NEPHROLOGY 07/03/24 documented as of this encounter
--- OUTSIDE RECORDS SUMMARY | 2025-07-29 16:16 | XMS_ITS | Encounter Summary ---
Author Organization [facility] Address [facility] [place] [address] Care Team Providers Care Change Over Name Role Phone Geovani Gonzalez MD Unavailable [phone] Enio Centeno DO Unavailable [phone] Josse Alanis MD Unavailable Cristofer Schwarz MD Unavailable [phone] Carl Maloney MD Primary Care Provider [phone] Encounter Details Date Type Department Care Team (Late st Contact Info) Description 05/20/2022 [employer] Message [facility] [address] [place] [address] Geovani Gonzalez MD [facility]. [address] [address] Maria R Barrientos Social History Tobacco Use Types Packs/Day Years [...] Exposure Response Date Recorded In the last 10 days, have yo u been in contact with someone who was confirmed or suspected to have Coronavirus/COVID-19? Unable to assess 05/18/2022 4:35 PM CDT documented as of this encounter Functional Status * RETIRED Are you deaf or do you have serious difficulty hearing Answer Date of Assessment Author Status Yes 05/18/2022 10:58 PM CDT Acti ve * RETIRED Are you blind or do you have serious difficulty seeing, even when wearing glasses? Answer Date of Assessment Author Status No 05/19/2022 2:13 AM CDT Activ e * Do you have serious difficulty walking or climbing stairs? Answer Date of Assessment Author Status Yes 05/19/2022 2:13 AM CDT Amanda Easton RN Active * Do you have difficulty dressing or bathing? Answer Date of Assessment Author Status Yes 05/19/2022 2:13 AM CDT Amanda Easton RN Active * Because of a physical, mental, or emotional condition, do you have difficulty doing errands alone such as visiting a doctor's office or shopping? Answer Date of Assessment Author Status Yes 05/19/2022 2:13 AM CDT Amanad Easton RN Active documented as of this encounter Mental Status * Because of a physical, mental, or emotional condition, do you have serious difficulty concentrating, remembering, or making decisions? Answer Entry Date Author Status Yes 05/19/2022 2:13 AM CDT Amanda Easton RN Active documented in this encounter Progress Notes * Mar Jordan RN - 05/20/2022 2:08 PM CDT Looks like patient is admitted. documented in this encounter Plan of Treatment Upcoming Encounters Date Type Department Care Team (Late st Contact Info) Description 10/01/2025 2:30 PM [employer] HEL[employer] Office Visit [facility] [place] [address] Cristina Palacios, SHAHLA [address] [facility] [address] [place], [place] [id number] documented as of this encounter Goals Goal Patient Goal Type Associated Problems Recent Progress Patient-Stated? Author Family - family caregiver with be involved in care transitions and discharge planning General No Camryn Monet, COSMETICIAN APPRENTICEindustrial security analyst - family caregiver with be involved in care transitions and discharge planning General No [place], RN documented as of this encounter Visit Diagnoses Not on filedocumented in this encounter Additional Health Concerns Infection Onset Date Last Indicated Resolved Time ESBL - Extended Spectrum Beta-lactamase Comment:Added from external infection.+ESBL Urine BJC 08/23/21 08/23/2021 MRSA Comment:04/20/22 +MRSA Nasal 04/21/2022 07/22/2025 COVID-19 Rule Out 05/25/2022 05/25/2022 05/25/2022 2:37 PM CDT COVID-19 Rule Out 09/12/2022 09/12/2022 09/12/2022 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 [address] [address] [place] [employer] CARDIOVASCULAR DISEASE 07/24/16 Enio Centeno DO [address] [place] [address] NEUROLOGY 07/03/24 Josse Alanis MD [address] [place] [address] NEPHROLOGY 07/03/24 Cristofer Schwarz MD [address] [place] [address] Referring Physician NEPHROLOGY 07/03/24 documented as of this encounter
--- OUTSIDE RECORDS SUMMARY | 2025-07-29 16:16 | XMS_ITS ---
Author Organization [facility] Care Team Providers Care Philosophy Faculty Name Role Phone Nayeli Mendez Unavailable Unavailable Annika Maher Unavailable Unavailable Carl Maloney Unavailable Unavailable Allergies and adverse reactions Code CodeSystem Substance Reaction Severity StartDate Concern Status Wellbutrin Drug-induced hyperpyrexia (code- 620377594, SNOMED CT) Severe 03/03/[id number] Sulfa Antibiotics Nausea (code- 919014866, SNOMED CT) Moderate 11/03/2021 active 60132 RXNORM Elemental Sulfur Itching (code- 600047892, SNOMED CT) Unknown 01/03/2020 active Care Team Name Role Address Phone Organization Dates Carl Maloney [facility] [address], [place], [address], [place] (Office): : : [facility] 07/28/2025 - present Nayeli Mendez [address], [place], [address], [place] (Office): [facility] 07/28/2025 - present Annika Maher [address], [place], [address], [place] (Office): : [facility] 07/28/2025 - present Encounters EncounterType Code CodeSystem Description Performer ServiceDe liveryLocation Date Ambulatory Encounter CPT Code = [id number] Cerebral infarction [facility] Address: [address] [place] [address]. 07/28 Ambulatory Encounter CPT Code = 42700 [id number] [address] Acute on chronic hypoxemic respiratory failure [facility] Address: [address] 07/28 Ambulatory Encounter CPT Code = [address]68 93[address] Type 2 diabetes mellitus [facility] Address: [address] 07/28 Ambulatory Encounter CPT Code = 18854 E11.9 ICD 10 TYPE 2 DIABETES MELLITUS WITHOUT COMPLICATIONS [facility] Address: [address] 07/28 Ambulatory Encounter CPT Code = [address]89 [address] Chronic obstructive pulmonary disease [facility] Address: [address] [place] [address]. 07/28 Ambulatory Encounter CPT Code = [address] Morbid obesity [facility] Address: [address] 07/28 Ambulatory Encounter CPT Code = 18151 I16.0 ICD 10 HYPERTENSIVE URGENCY [facility] Address: [address] 07/28 Ambulatory Encounter CPT Code = [address] Urinary tract infectious disease Delmi Leigh [facility] Address: [address] 07/28 Ambulatory Encounter CPT Code = [address] Muscle weakness Delmi Leigh [facility] Address: [address] 07/28 Ambulatory Encounter CPT Code = 59006 [id number] [address] Need for personal care assistance Delmi Leigh [facility] Address: [address] 07/28 Ambulatory Encounter CPT Code = [address] Allergic rhinitis Delmi Leigh [facility] Address: [address] 07/28 Ambulatory Encounter CPT Code = [address] End-stage renal disease Delmi Leigh [facility] Address: [address] 07/28 Ambulatory Encounter CPT Code = [address]68 [address] Dependence on renal dialysis Delmi Leigh [facility] Address: [address] 07/28 Ambulatory Encounter CPT Code = [address] Epilepsy Delmi Leigh [facility] Address: [address] 07/28 Ambulatory Encounter CPT Code = [address] Chronic kidney disease stage 5 Delmi Leigh [facility] Address: [address] 07/28 Ambulatory Encounter CPT Code = [address] Dysphagia Delmi Leigh [facility] Address: [address] 07/28 Ambulatory Encounter CPT Code = [id number] Neurogenic urinary bladder Delmi [facility] Address: [address] 07/28 Ambulatory Encounter CPT Code = [address] Anemia Delmi Leigh [facility] Address: [address] 07/28 Ambulatory Encounter CPT Code = [address]6439 [id number] Anxiety disorder [facility] Address: [address] 07/28 Ambulatory Encounter CPT Code = [address]47 [address] Acute on chronic systolic heart failure Delmi [facility] Address: [address] 07/28 Ambulatory Encounter CPT Code = [address] 48[address] Hyperlipidemia Delmi [facility] Address: [address] 07/28 Ambulatory Encounter CPT Code = 70969 [address] Insomnia Delmi [facility] Address: [address] 07/28 Ambulatory Encounter CPT Code = [address] Atrial fibrillation [facility] Address: [address] 07/28 Ambulatory Encounter CPT Code = 50285 I50.9 ICD 10 HEART FAILURE, UNSPECIFIED Delmi Leigh [facility] Address: [address] 07/28 Ambulatory Encounter CPT Code = [id number] Hearing loss Delmi Leigh [facility] Address: [address] 07/28 Ambulatory Encounter CPT Code = [address]44 [address] Delayed union of fracture Delmi Leigh [facility] Address: [address] 07/28 Ambulatory Encounter CPT Code = 71970 N39.9 ICD 10 DISORDER OF URINARY SYSTEM, UNSPECIFIED Delmi Leigh [facility] Address: [address] 07/28 Ambulatory Encounter CPT Code = [address]43 97[address] Disorder of brain Delmi Leigh [facility] Address: [address] 07/28 Ambulatory Encounter CPT Code = 31202 G40.89 ICD 10 OTHER SEIZURES Delmi Leigh [facility] Address: [address] 07/28 Ambulatory Encounter CPT Code = [address]38 [address] Dementia Delmi Leigh [facility] Address: [address] 07/28 Ambulatory Encounter CPT Code = [address] Essential hypertension Delmi Leigh [facility] Address: [address] 07/28 Ambulatory Encounter CPT Code = [address] Aortic valve regurgitation Delmi Leigh [facility] Address: [address] 07/28 Ambulatory Encounter CPT Code = 05087 94398[address] Cerebrovascula r disease Delmi Leigh [facility] Address: [address] 07/28 Ambulatory Encounter CPT Code = [address] Castleman disease Delmi Leigh [facility] Address: [address] 07/28 Ambulatory Encounter CPT Code = [address]22 [address] Pulmonary hypertension Delmi Leigh [facility] Address: [address] 07/28 Ambulatory Encounter CPT Code = 52747 2414[address] Primary malignant neoplasm of lower outer quadrant of female breast Delmi Leigh [facility] Address: [address] 07/28 Ambulatory Encounter CPT Code = [address]57 [address] Vitamin D deficiency Delmi Leigh [facility] Address: [address] 07/28 Ambulatory Encounter CPT Code = [address]20 [address]70 [address] Mixed hyperlipidemia Delmi Leigh [facility] Address: [address], [address] [place] [address]. 07/28 Ambulatory Encounter CPT Code = [address]38 [address] Moderate recurrent major depression Delmi Leigh [facility] Address: [address] 07/28 Ambulatory Encounter CPT Code = [address] Osteoporosis Delmi Leigh [facility] Address: [address], [address] [place] [address]. 07/28 Ambulatory Encounter CPT Code = [address] Exposure to radiation Delmi Leigh [facility] Address: [address], [address] [place] [address]. 07/28 Ambulatory Encounter CPT Code = 37866 5113174 [address] Antineoplastic chemotherapy regimen Delmi Leigh [facility] Address: [address], [address] [place] [address]. 07/28 Ambulatory Encounter CPT Code = 9[address]34 [address] Actinic keratosis Delmi [facility] Address: [address] 07/28 Ambulatory Encounter CPT Code = [address]154 [address] Cerebral infarction [facility] Address: [address] [place] [address]. 07/11 Ambulatory Encounter CPT Code = 99200 2534937 742[address] Acute on chronic hypoxemic respiratory failure [facility] Address: [address] [place] [address]. 07/11 Ambulatory Encounter CPT Code = [address] Type 2 diabetes mellitus [facility] Address: [address] [place] [address]. 07/11 Ambulatory Encounter CPT Code = 33186 E11.9 ICD 10 TYPE 2 DIABETES MELLITUS WITHOUT COMPLICATIONS [facility] Address: [address] 07/11 Ambulatory Encounter CPT Code = [address]32 [address] Chronic obstructive pulmonary disease [facility] Address: [address] [place] [address]. 07/11 Ambulatory Encounter CPT Code = 00328 [id number] Morbid obesity [facility] Address: [address] 07/11 Ambulatory Encounter CPT Code = 42263 I16.0 ICD 10 HYPERTENSIVE URGENCY [facility] Address: [address] [place] [address]. 07/11 Ambulatory Encounter CPT Code = [address] Urinary tract infectious disease [facility] Address: [address] 07/11 Ambulatory Encounter CPT Code = [address] Muscle weakness [facility] Address: [address] [place] [address]. 07/11 Ambulatory Encounter CPT Code = 78865 3048294 [id number] [address] Need for personal care assistance [facility] Address: [address] [place] [address]. 07/11 Ambulatory Encounter CPT Code = [address] Allergic rhinitis [facility] Address: [address] [place] [address]. 07/11 Ambulatory Encounter CPT Code = 00425 4824120 [address] End-stage renal disease [facility] Address: [address] [place] [address]. 07/11 Ambulatory Encounter CPT Code = [address]82 [address] Dependence on renal dialysis [facility] Address: [address] 07/11 Ambulatory Encounter CPT Code = [address] Epilepsy [facility] Address: [address] 07/11 Ambulatory Encounter CPT Code = [address] Chronic kidney disease stage 5 [facility] Address: [address] 07/11 Ambulatory Encounter CPT Code = 90366 [address] Dysphagia [facility] Address: [address] 07/11 Ambulatory Encounter CPT Code = [id number] Neurogenic urinary bladder [facility] Address: [address] 07/11 Ambulatory Encounter CPT Code = [address] Anemia [facility] Address: [address] 07/11 Ambulatory Encounter CPT Code = 72548 607[address] Anxiety disorder [facility] Address: [address] 07/11 Ambulatory Encounter CPT Code = 62430 [address] Acute on chronic systolic heart failure [facility] Address: [address] 07/11 Ambulatory Encounter CPT Code = [address] Hyperlipidemia [facility] Address: [address] [place] [address]. 07/11 Ambulatory Encounter CPT Code = [address] Insomnia [facility] Address: [address] 07/11 Ambulatory Encounter CPT Code = [address] Atrial fibrillation [facility] Address: [address] [place] [address]. 07/11 Ambulatory Encounter CPT Code = 94252 I50.9 ICD 10 HEART FAILURE, UNSPECIFIED [facility] Address: [address] 07/11 Ambulatory Encounter CPT Code = [address] Hearing loss [facility] Address: [address] [place] [address]. 07/11 Ambulatory Encounter CPT Code = [address] Delayed union of fracture [facility] Address: [address] [place] [address]. 07/11 Ambulatory Encounter CPT Code = 91387 N39.9 ICD 10 DISORDER OF URINARY SYSTEM, UNSPECIFIED [facility] Address: [address] [place] [address]. 07/11 Ambulatory Encounter CPT Code = [id number] Disorder of brain [facility] Address: [address] [place] [address]. 07/11 Ambulatory Encounter CPT Code = 93180 G40.89 ICD 10 OTHER SEIZURES [facility] Address: [address] 07/11 Ambulatory Encounter CPT Code = [address] Dementia [facility] Address: [address] [place] [address]. 07/11 Ambulatory Encounter CPT Code = [address] Essential hypertension [facility] Address: [address] [place] [address]. 07/11 Ambulatory Encounter CPT Code = [address] Aortic valve regurgitation [facility] Address: [address] [place] [address]. 07/11 Ambulatory Encounter CPT Code = [address]405 [address] Cerebrovascula r disease [facility] Address: [address] [place] [address]. 07/11 Ambulatory Encounter CPT Code = [address]80 [address] Castleman disease [facility] Address: [address] [place] [address]. 07/11 Ambulatory Encounter CPT Code = [address] Pulmonary hypertension [facility] Address: [address] [place] [address]. 07/11 Ambulatory Encounter CPT Code = [address]20 [address] Primary malignant neoplasm of lower outer quadrant of female breast [facility] Address: [address] [place] [address]. 07/11 Ambulatory Encounter CPT Code = [address] [facility] Address[facility] [address] 07/11 Ambulatory Encounter CPT Code = [address] Mixed hyperlipidemia [facility] Address: [address] 07/11 Ambulatory Encounter CPT Code = [address] Moderate recurrent major depression [facility] Address: [address] 07/11 Ambulatory Encounter CPT Code = 97772 [address] Osteoporosis [facility] Address: [address] 07/11 Ambulatory Encounter CPT Code = [address]7918 [address] Exposure to radiation [facility] Address: [address] 07/11 Ambulatory Encounter CPT Code = [address]57 [address] Antineoplastic chemotherapy regimen [facility] Address: [address] 07/11 Ambulatory Encounter CPT Code = 47138 [address] Actinic keratosis [facility] Address: [address] [place] [address]. 07/11 Ambulatory Encounter CPT Code = 21474 0000[address] Urinary tract infectious disease Shima Lara LPN [facility] Address: [address] 03/19 Ambulatory Encounter CPT Code = [address] Cerebral infarction Shima Lara LPN [facility] Address: [address] [place] [address]. 03/19 Ambulatory Encounter CPT Code = [address] Respiratory failure Shima Lara LPN [facility] Address: [address] [place] [address]. 03/19 Ambulatory Encounter CPT Code = 61267 9082126 2215214 [address] Acute on chronic hypoxemic respiratory failure Shima Lara LPN [facility] Address: [address] [place] [address]. 03/19 Ambulatory Encounter CPT Code = [address] Type 2 diabetes mellitus Shima Lara LPN [facility] Address: [address] [place] [address]. 03/19 Ambulatory Encounter CPT Code = 67267 E11.9 ICD 10 TYPE 2 DIABETES MELLITUS WITHOUT COMPLICATIONS Shima Lara LPN [facility] Address: [address] [place] [address]. 03/19 Ambulatory Encounter CPT Code = [address] Chronic obstructive pulmonary disease Shima Lara LPN [facility] Address: [address] [place] [address]. 03/19 Ambulatory Encounter CPT Code = [address] Morbid obesity Shima Lara 911 [employer] [facility] Address: [address] [place] [address]. 03/19 Ambulatory Encounter CPT Code = [address]494 [address] Embolism from thrombosis of vein of lower extremity Shima Lara LPN [facility] Address: [address] [place] [address]. 03/19 Ambulatory Encounter CPT Code = 68810 I16.0 ICD 10 HYPERTENSIVE URGENCY Shima Lara LPN [facility] Address: [address] [place] [address]. 03/19 Ambulatory Encounter CPT Code = [address] Allergic rhinitis Shima Lara LPN [facility] Address: [address] [place] [address]. 03/19 Ambulatory Encounter CPT Code = [address] Persistent pain following procedure Shima Lara LPN [facility] Address: [address] [place] [address]. 03/19 Ambulatory Encounter CPT Code = [id number] End-stage renal disease Shima Lara LPN [facility] Address: [address] [place] [address]. 03/19 Ambulatory Encounter CPT Code = [address] Dependence on renal dialysis Shima Lara LPN [facility] Address: [address] [place] [address]. 03/19 Ambulatory Encounter CPT Code = [address] Epilepsy Shima Lara LPN [facility] Address: [address] [place] [address]. 03/19 Ambulatory Encounter CPT Code = [address] Chronic kidney disease stage 5 Shima Lara LPN [facility] Address: [address] [place] [address]. 03/19 Ambulatory Encounter CPT Code = [address] Dysphagia Shima Lara LPN [facility] Address: [address] 03/19 Ambulatory Encounter CPT Code = [address] Neurogenic urinary bladder Shima Lara LPN [facility] Address: [address] 03/19 Ambulatory Encounter CPT Code = [address] Acidosis Shima Lara LPN [facility] Address: [address] 03/19 Ambulatory Encounter CPT Code = [address] Disorder of brain Shima Lara LPN [facility] Address: [address] 03/19 Ambulatory Encounter CPT Code = [address] Anemia Shima Lara LPN [facility] Address: [address] [place] [address]. 03/19 Ambulatory Encounter CPT Code = [address] Hypercalcemia Shima Lara LPN [facility] Address: [address] [place] [address]. 03/19 Ambulatory Encounter CPT Code = [address] Anxiety disorder Shima Lara LPN [facility] Address: [address] [place] [address]. 03/19 Ambulatory Encounter CPT Code = [address] Acute on chronic systolic heart failure Shima Lara LPN [facility] Address: [address] 03/19 Ambulatory Encounter CPT Code = [address] Hyperlipidemia Shima Lara LPN [facility] Address: [address] 03/19 Ambulatory Encounter CPT Code = [address] Insomnia Shima Lara 911 [employer] DIS[employer] [facility] Address: [address] 03/19 Ambulatory Encounter CPT Code = [address] Atrial fibrillation Shima Lara LPN [facility] Address: [address] [place] [address]. 03/19 Ambulatory Encounter CPT Code = [address] Chronic kidney disease stage 4 Shima Lara LPN [facility] Address: [address] 03/19 Ambulatory Encounter CPT Code = 01617 I50.9 ICD 10 HEART FAILURE, UNSPECIFIED Shima Lara 911 [employer] DIS[employer] [facility] Address: [address] 03/19 Ambulatory Encounter CPT Code = 61299 [address] Altered mental status Shima Lara LPN [facility] Address: [address] 03/19 Ambulatory Encounter CPT Code = [address] Hearing loss Shima Lara 911 [employer] SERVICES DISP[employer]ER [facility] Address: [address] [place] [address]. 03/19 Ambulatory Encounter CPT Code = [address] Delayed union of fracture Shima Lara LPN [facility] Address: [address] 03/19 Ambulatory Encounter CPT Code = 30497 N39.9 ICD 10 DISORDER OF URINARY SYSTEM, UNSPECIFIED Shima Lara 911 [employer] SERVICES DISP[employer]ER [facility] Address: [address] [place] [address]. 03/19 Ambulatory Encounter CPT Code = [address] Disorder of brain Shima Lara LPN [facility] Address: [address] [place] [address]. 03/19 Ambulatory Encounter CPT Code = [address] Type 2 diabetes mellitus Shima Lara LPN [facility] Address: [address] [place] [address]. 03/19 Ambulatory Encounter CPT Code = [id number] Chronic diastolic heart failure Shima Lara LPN [facility] Address: [address] [place] [address]. 03/19 Ambulatory Encounter CPT Code = [address] Chronic atrial fibrillation Shima Lara LPN [facility] Address: [address] [place] [address]. 03/19 Ambulatory Encounter CPT Code = 66301 G40.89 ICD 10 OTHER SEIZURES Shima Lara LPN [facility] Address: [address] [place] [address]. 03/19 Ambulatory Encounter CPT Code = [address] Dementia Shima Lara 911 EMERGENCY SERVICES DISPATCHER [facility] Address: [address] [place] [address]. 03/19 Ambulatory Encounter CPT Code = [id number] Essential hypertension Shima Lara LPN [facility] Address: [address] 03/19 Ambulatory Encounter CPT Code = [id number] Aortic valve regurgitation Shima Lara 911 EMERGENCY SERVICES DISPATCHER [facility] Address: [address] [place], [place], [address] [place] [address]. 03/19 Ambulatory Encounter CPT Code = [id number] Cerebrovascula r disease Shima Lara 911 EMERGENCY SERVICES DISPATCHER [facility] Address: [address] 03/19 Ambulatory Encounter CPT Code = [address]23 [id number] Castleman disease Shima Lara 911 EMERGENCY SERVICES DISPATCHER [facility] Address: [address] [place] [address], [address] [place] [address]. 03/19 Ambulatory Encounter CPT Code = [id number] Pulmonary hypertension Shima Lara 911 EMERGENCY SERVICES DISPATCHER [facility] Address: [address] [place] [address], [address] [place] [address]. 03/19 Ambulatory Encounter CPT Code = [id number] Primary malignant neoplasm of lower outer quadrant of female breast Shima Lara LPN [facility] Address: [address] [place] [address], [address] [place] [address]. 03/19 Ambulatory Encounter CPT Code = [id number] Vitamin D deficiency Shima Lara 911 EMERGENCY SERVICES DISPATCHER [facility] Address: [address] [place], [address] [place] [address]. 03/19 Ambulatory Encounter CPT Code = 82845 [id number] Mixed hyperlipidemia Shima Lara 911 EMERGENCY SERVICES DISPATCHER [facility] Address: [address] [place] [address], [address] [place] [address]. 03/19 Ambulatory Encounter CPT Code = [id number] Moderate recurrent major depression Shima Lara LPN [facility] Address: [address] 03/19 Ambulatory Encounter CPT Code = [id number] Osteoporosis Shima Lara LPN [facility] Address: [address] [place] [address]. 03/19 Ambulatory Encounter CPT Code = [address]194 [id number] Exposure to radiation Shima Lara LPN [facility] Address: [address] [place] [address]. 03/19 Ambulatory Encounter CPT Code = [id number] Antineoplastic chemotherapy regimen Shima Lara LPN [facility] Address: [address] [place] [address]. 03/19 Ambulatory Encounter CPT Code = [id number] Actinic keratosis Shima Lara 911 EMERGENCY SERVICES DISPATCHER [facility] Address: [address] 03/19 Goals Section Goals Description Status Target Date Needs will be met to promote recovery and ensure medical s afety Active 07/29/2025 Pain will be minimized with the use of scheduled and/or PRN pain meds. Active 07/29/2025 Residents wishes regarding code status will be h onored. Active 07/29/2025 The resident will be able to communicate basic needs on a daily basis through the review date. Active 07/29/2025 The resident will be free fr om any s/sx of hyperglycemia through the review date. Active 07/29/2025 The resident will be free fr om any s/sx of hypoglycemia through the review date. Active 07/29/2025 The resident will be free of infection, pain or bleeding in the oral cavity. Active 07/29/2025 The resident will be free of peripheral edema through the review date. Active 07/29/2025 The resident will have clear lung sounds, heart rate and rhythm within normal limits through the review date. Active 07/29/20 The resident will have no co mplications related to diabetes through the review date. Active 07/29/2025 The resident will have no s/sx of complications from dialysis. Active 07/29/2025 The resident will have no s/sx of complications from dialysis. Active 07/29/2025 The resident will have no s/sx of poor oxygen ab sorption. Active 07/29/2025 The resident will have no s/sx of poor oxygen ab sorption. Active 07/29/2025 The resident will maintain c urrent level of cognitive function through the review date. Active 07/29/2025 The resident will maintain c urrent level of communication function. Active 07/29/2025 The resident will not develo p complications related to obesity, including skin breakdown, ineffective breathing pattern, altered cardiac output, diabetes, impaired mobility through review date. Active 07/29/2025 The resident will not sustai n serious injury through the review date. Active 07/29/2025 The resident will remain alice e from skin breakdown due to incontinence and brief use through the review date. Active The resident will remain alice e from skin breakdown due to incontinence and brief use through the review date. Active The resident's electrolyte l evels will be within normal limits through the review date. Active 07/29/2025 The resident's infection scott l resolve with minimal complications as evidenced by negative culture, vital signs WNL and no s/sx of acute infection by review date. Active 07/29/2025 Zander will be able to make basic needs known. Active 07/29/2025 Zadner will be free of injury r/t falls. Active 07/29/2025 Zander will cooperate with care through next re view date Active 07/29/2025 Zander will exhibit less mood indicators by nex t review. Active 07/29/2025 Zander will express satisfa ction with type of activities and level of activity involvement when asked through the review date. Active 07/29/2025 Zander will have no adverse affects from taking anticoagulant therapy through next review Active 07/29/2025 Zander will have no evidenc e of behavior problems through next review. Active 07/29/2025 Zander will maintain current level of communica tion function. Active 07/29/2025 Zander will maintain intact skin. Active 07/29/2025 Zander will not acquire COVID-19 infection thro [facility] next review. Active 07/29/2025 Zander will remain free fro m catheter-related trauma through review date. Active 07/29/2025 Zander will remain free from skin breakdown. Ac tive 07/29/2025 Zander will show no s/sx of Urinary infection through review date. Active 07/29/2025 Zander will wash face and h ands, perform oral care, and comb hair with set up help, verbal cueing and stand by assist. Active 1 Zander's bib pad will rem ain properly placed under her while up in wheelchair. Active 07/29/2025 Functional Status Code Name Recorded Time Value Entered By Ambulation 07/21/2025 Total Dependence c.arvin Ambulation 07/21/2025 Total Dependence c.arvin Ambulation 07/21/2025 Not assessed c.arvin Ambulation 07/21/2025 Not assessed cchristiano Bathing 07/06/2025 Not assessed cchristiano Dressing 07/21/2025 Total Dependence cchristiano Feeding or Eating 07/21/2025 Independent cchristiano Toileting 07/29/2025 Total Dependence ebrown Transferring 07/21/2025 Total Dependence chriss Immunizations Immunization Status Vaccine Details Vaccine Code CodeSystem Date Notes Influenza completed Influenza, split virus, trivalent, injectable, contains preservative lotNumber: [id number] expiry: 03/24/2025 Mfg: sanofi Given 0.5 ml Right Deltoid intramuscularly 141 CVX created date: 4 consent date: 4 administe red date: 4 [facility] administered flu vaccine Influenza completed Influenza, split virus, trivalent, injectable, contains preservative lotNumber: [id number] expiry: 04/22/2024 Mfg: fluzone Given 0.7 ml intramuscularly 141 CVX created date: 3 consent date: 3 administe red date: 3 Influenza completed Influenza, split virus, trivalent, injectable, contains preservative 141 CVX created date: 5 administe red date: 6 TB 1 Step Mantoux (PPD) completed tuberculin skin test; unspecified formulation lotNumber: [id number] expiry: 04/04/2026 Mfg: tubeersol Given 0.1 ml Right Forearm intradermally 98 CVX created date: 4 consent date: 4 administe red date: 3 TB 1 Step Mantoux (PPD) completed tuberculin skin test; unspecified formulation lotNumber: [id number] expiry: 07/19/2024 Mfg: Sanofi Pasteu Limited Given 0.1 ml Right Forearm intradermally 98 CVX created date: 2 consent date: 2 administe red date: 2 TB 2 Step Mantoux Skin Test completed tuberculin skin test; unspecified formulation lotNumber: [id number] expiry: 02/21/2027 Mfg: Tubersol Given 0.1 ml Right Forearm intradermally Step 2 of Multi-step with next step required 98 CVX created date: 4 consent date: 4 administe red date: 4 TB 2 Step Mantoux Skin Test completed tuberculin skin test; unspecified formulation lotNumber: [id number] expiry: 02/21/2027 Mfg: Mantoux Tubersol Given 0.1 ml Right Forearm intradermally Step 1 of Multi-step with next step required 98 CVX created date: 4 consent date: 4 administe red date: 4 Educated by Lori Odom RN on 08/27/2024 TB 2 Step Mantoux Skin Test completed tuberculin skin test; unspecified formulation Step 2 of Multi-step with next step required 98 CVX created date: 3 administe red date: 2 TB 2 Step Mantoux Skin Test completed tuberculin skin test; unspecified formulation lotNumber: [id number] expiry: 10/29/2022 Given 0.1 ml Left Forearm intradermally Step 1 of Multi-step with next step required 98 CVX created date: 2 consent date: 2 administe red date: 2 Prevnar 13 completed pneumococcal conjugate vaccine, 13 valent 133 CVX created date: 5 administe red date: 6 Prevnar 13 completed pneumococcal conjugate vaccine, 13 valent lotNumber: [id number] Mfg: Pfizer Given intramuscularly 133 CVX created date: 5 administe red date: 6 Prevnar 13 completed pneumococcal conjugate vaccine, 13 valent Mfg: OTHER 133 CVX created date: 5 administe red date: 6 zoster (shingles), recombinant completed zoster vaccine recombinant lotNumber: [id number] expiry: 07/22/2025 Mfg: GLAXDimple DoughKLINE Given 0.5 ml Right Deltoid intramuscularly 187 CVX created date: 4 consent date: 4 administe red date: 4 Influenza, High Dose completed Influenza, high-dose, split virus, quadrivalent, injectable, preservative free Given 0.7 Left Deltoid intramuscularly 197 CVX created date: 2 consent date: 2 administe red date: 2 Influenza, High Dose cancelled Influenza, high-dose, split virus, quadrivalent, injectable, preservative free 197 CVX created date: 2 consent date: 2 Influenza, High Dose completed Influenza, high-dose, split virus, quadrivalent, injectable, preservative free lotNumber: [id number] Mfg: sanofi-pasteur Given 0.7 intramuscularly 197 CVX created date: 5 administe red date: 1 doseUOMNoncode d:mL Influenza, High Dose completed Influenza, high-dose, split virus, quadrivalent, injectable, preservative free Given 0.7 197 CVX created date: 5 administe red date: 0 doseUOMNoncode d:mL Influenza, High Dose completed Influenza, high-dose, split virus, quadrivalent, injectable, preservative free lotNumber: [id number] Given intramuscularly 197 CVX created date: 5 administe red date: 9 Mfg:Sanofi Pasteur Inc. ([employer] Pasteur Merieux) Influenza, High Dose completed Influenza, high-dose, split virus, quadrivalent, injectable, preservative free lotNumber: [id number] Given intramuscularly 197 CVX created date: 5 administe red date: 8 Mfg:Sanofi Pasteur Inc. ([employer] and Pasteur Merieux) Influenza, High Dose completed Influenza, high-dose, split virus, quadrivalent, injectable, preservative free lotNumber: [id number] Given intramuscularly 197 CVX created date: 5 administe red date: 7 Mfg:Sanofi Pasteur Inc. ([employer] P[employer]ur Merieux) Influenza, High Dose completed Influenza, high-dose, split virus, quadrivalent, injectable, preservative free lotNumber: [id number] Given intramuscularly 197 CVX created date: 5 administe red date: 6 Mfg:Sanofi Pasteur Inc. ([employer] and P[employer]ur Merieux) SARS-COV-2 (COVID-19) completed SARS-COV-2 (COVID-19) vaccine, mRNA, spike protein, LNP, preservative free, 100 mcg/0.5mL dose or 50 mcg/0.25mL dose lotNumber: [id number] Mfg: Moderna Given intramuscularly Step 2 of Multi-step with next step required 207 CVX created date: 2 consent date: 2 administe red date: 1 SARS-COV-2 (COVID-19) completed SARS-COV-2 (COVID-19) vaccine, mRNA, spike protein, LNP, preservative free, 100 mcg/0.5mL dose or 50 mcg/0.25mL dose lotNumber: [id number] Mfg: Moderna Given intramuscularly Step 1 of Multi-step with next step required 207 CVX created date: 2 administe red date: 1 COVID-19 Moderna Booster completed SARS-COV-2 (COVID-19) vaccine, mRNA, spike protein, LNP, preservative free, 100 mcg/0.5mL dose or 50 mcg/0.25mL dose lotNumber: [id number] Mfg: Moderna US Inc Given 0.5 intramuscularly 207 CVX created date: 5 administe red date: 1 doseUOMNoncode d:mL COVID-19 Moderna Booster completed SARS-COV-2 (COVID-19) vaccine, mRNA, spike protein, LNP, preservative free, 100 mcg/0.5mL dose or 50 mcg/0.25mL dose lotNumber: [id number] Mfg: Moderna US Inc Given 0.5 intramuscularly 207 CVX created date: 5 administe red date: 1 doseUOMNoncode d:mL COVID-19 Pfizer Booster completed SARS-COV-2 (COVID-19) vaccine, mRNA, spike protein, LNP, preservative free, 30 mcg/0.3mL dose lotNumber: [id number] Mfg: Pfizer Given intramuscularly 208 CVX created date: 2 administe red date: 2 Pneumococcal PCV 20 cancelled Pneumococcal conjugate vaccine 20-valent (PCV20), polysaccharide BEN100 conjugate, adjuvant, preservative free 216 CVX created date: 3 consent date: 3 COVID-19 Bivalent (Pfizer) completed SARS-COV-2 (COVID-19) vaccine, mRNA, spike protein, LNP, preservative free, 30 mcg/0.3mL dose, ivan-sucrose formulation Given Right Deltoid intramuscularly 217 CVX created date: 2 consent date: 2 administe red date: 2 COVID 19 COMIRNATY completed SARS-COV-2 (COVID-19) vaccine, mRNA, spike protein, LNP, preservative free, 50 mcg/0.5 mL dose lotNumber: [id number] expiry: 02/01/2024 Mfg: Moderna Given 0.5 ml intramuscularly 312 CVX created date: 4 consent date: 4 administe red date: 4 Educated by on 01/06/2024 pneumococcal conjugate PCV 7 completed pneumococcal conjugate vaccine, 7 valent 100 CVX created date: 5 administe red date: 7 pneumococcal, unspecified formulation completed pneumococcal vaccine, unspecified formulation 109 CVX created date: 5 administe red date: 6 COMIRNATY (COVID-19 Vaccine, mRNA, [id number] Formula) completed SARS-COV-2 (COVID-19) vaccine, mRNA, spike protein, LNP, preservative free, ivan-sucrose, 30 mcg/0.3 mL dose lotNumber: [id number] expiry: 02/09/2025 Mfg: BioNTech Given Right Deltoid intradermally 309 CVX created date: 4 consent date: 4 administe red date: 4 Educated by on 09/14/2024 influenza, unspecified formulation completed influenza virus vaccine, unspecified formulation 88 CVX created date: 5 administe red date: 9 influenza, unspecified formulation completed influenza virus vaccine, unspecified formulation 88 CVX created date: 5 administe red date: 6 influenza, unspecified formulation completed influenza virus vaccine, unspecified formulation 88 CVX created date: 5 administe red date: 6 influenza, unspecified formulation completed influenza virus vaccine, unspecified formulation 88 CVX created date: 5 administe red date: 6 Influenza, split virus, quadrivalent, preservative completed Influenza, split virus, quadrivalent, injectable, contains preservative 158 CVX created date: 5 administe red date: 9 Pneumococcal Conjugate, unspecified formulation completed Pneumococcal Conjugate, unspecified formulation 152 CVX created date: 5 administe red date: 6 Influenza, split virus, trivalent, PF completed Influenza, split virus, trivalent, injectable, preservative free 140 CVX created date: 5 administe red date: 6 Influenza, live, trivalent, intranasal completed Influenza, live, trivalent, intranasal, preservative free Mfg: OTHER 111 CVX created date: 5 administe red date: 3 Typhoid conjugate vaccine (TCV) completed Typhoid conjugate vaccine (non-US) Given 0.7 190 CVX created date: 5 administe red date: 0 doseUOMNoncode d:mL Medications Section Medication Name Status Code CodeSystem Dose Route Frequency Admin Type Sig Text Start Date End Date Indication Rosuvastati n Calcium Oral Tablet 10 MG aborted 24056 7 RXNORM 1 table t Oral one time a day Routin e Give 1 table t by mouth one time a day for hyper lipid emia 07/15 hyperlipide carl Docusate Sodium Oral Capsule 100 MG aborted 78793 05 RXNORM 2 capsu le Oral two times a day Routin e Give 2 capsu le by mouth two times a day for const ipati on 07/23 constipatio n Cyanocobala min Oral Tablet 1000 MCG aborted 35162 3 RXNORM 1 table t Oral one time a day Routin e Give 1 table t by mouth one time a day for Vitam in defic it 07/23 Vitamin deficit Nystatin External Powder 530646 UNIT/GM aborted 94820 6 RXNORM n/a n/a Topica l two times a day Routin e Apply to groin ,abd folds and coccy topic ally two times a day for coccy x, groin and abdom en folds 07/23 coccyx, groin and abdomen folds busPIRone HCl Oral Tablet 5 MG aborted 38419 4 RXNORM 1 table t Oral three times a day Routin e Give 1 table t by mouth three times a day for anxie ty 07/23 anxiety Methylpheni date HCl Oral Tablet 10 MG aborted 48993 50 RXNORM 1 table t Oral two times a day Routin e Give 1 table t by mouth two times a day for narco lepsy BID with Meals 07/23 narcolepsy Fluconazole Oral Tablet 150 MG aborted 94903 9 RXNORM 1 table t Oral one time a day Routin e Give 1 table t by mouth one time a day every Sat for Vagin al yeast 07/23 Vaginal yeast Xphozah Oral Tablet 30 MG aborted 53804 54 RXNORM 1 table t Oral two times a day Routin e Give 1 table t by mouth two times a day for [facility] given with break fast and super 07/23 bladder health Eliquis Oral Tablet 5 MG aborted 44354 47 RXNORM 1 table t Oral two times a day Routin e Give 1 table t by mouth two times a day for coagu latio n 07/23 coagulation Abilify Oral Tablet aborted 3 mg Oral one time a day Routin e Give 3 mg by mouth one time a day for a 07/23 a Tylenol Oral Tablet aborted 1000 mg Oral one time a day Routin e Give 1000 mg by mouth one time a day for pain 07/23 pain Rosuvastati n Calcium Oral Tablet 10 MG aborted 00432 7 RXNORM 1 table t Oral one time a day Routin e Give 1 table t by mouth one time a day for hyper lipid emia 07/23 hyperlipide carl traMADol HCl Oral Tablet 50 MG aborted 66819 3 RXNORM 50 mg Oral as needed PRN CHRISTIANO Give 50 mg by mouth every 6 hours as neede d for Pain - Moder ate relat ed to AGE-R ELATE D 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) give trama dol 50md po mQID prn for pain 07/23 Pain - Moderate Cefpodoxime Proxetil Oral Tablet 200 [place] [address] 8 RXNORM 2 table t Oral one time only One Time Only Give 2 table t by mouth one time only for sob until 07/19 23:59 07/20 sob Doxycycline Hyclate Oral Tablet 100 [place] [address] 43 RXNORM 1 table t Oral one time only One Time Only Give 1 table t by mouth one time only for sob until 07/19 23:59 07/20 sob Ipratropium -Albuterol Solution 0.5-2.5 (3) MG/3ML aborted 43538 02 RXNORM 1 vial Inhala tion four times a day Routin e 1 vial inhal e orall y four times a day for sob for 5 Days 07/23 sob Metoprolol Tartrate Oral Tablet 25 MG aborted 86984 4 RXNORM 1 table t Oral two times a day Routin e Give 1 table t by mouth two times a day for Hyper tensi on Hold AM dose on dialy sis days only 07/23 Hypertensio n Insulin Glargine Solution 100 UNIT/ML aborted 34114 1 RXNORM 25 unit Subcut aneous one time a day Routin e Injec t 25 unit subcu taneo usly one time a day for diabe stephanie 07/23 diabetes Cefdinir Oral Capsule 300 MG active 08371 6 RXNORM 1 capsu le Oral one time a day Routin e Give 1 capsu le by mouth one time a day for infec tion for 1 Day 07/30 infection Midodrine HCl Tablet 10 MG active 49231 2 RXNORM 1 table t Oral two times a day Routin e Give 1 table t by mouth two times a day every Mon, Wed, Fri for Hypot ensio n 2nd dose to be given durin g dialy sis. 2024 - Hypotension Polyethylen e Glycol 3350 Packet active 17 gram Oral as needed PRN Give 17 gram by mouth every 24 hours as neede d for const ipati on 2024 - constipatio n Micatin Cream 2 % active 31291 9 RXNORM n/a n/a Topica l every day and evening shift Routin e Apply to per addit ional direc tions topic ally every day and eveni ng shift for TX vagin al funga l infec tion AND Apply to topic ally topic ally every 12 hours as neede d for vagin al yeast 2024 - TX vaginal fungal infection 33055 9 RXNORM n/a n/a Topica l as needed PRN Apply to per addit ional direc tions topic ally every day and eveni ng shift for TX vagin al funga l infec tion AND Apply to topic ally topic ally every 12 hours as neede d for vagin al yeast 2024 - vaginal yeast Nitroglycer in Sublingual Tablet Sublingual active 0.4 mg Sublin gual as needed PRN Give 0.4 mg subli ngual ly as neede d for chest pain 0.4mg sl every 5 minut es up to 3 doses per episo de 2024 - chest pain NovoLOG Solution 100 UNIT/ML active 83818 6 RXNORM n/a n/a Subcut aneous two times a day Routin e Injec t as per slidi ng scale : if 200 - 250 = 4 units ; 251 - 300 = 6 units ; 301 - 350 = 8 units ; 351 - 400 = 12 units ; 401 - 500 = 12 units Call MD if great er than 400, subcu taneo usly two times a day relat ed to 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) 2024 - - guaiFENesin ER Oral Tablet Extended Release 12 Hour 600 MG active 97800 2 RXNORM 2 table t Oral as needed PRN Give 2 table t by mouth every 12 hours as neede d for cough /cold /james rgy 2024 - cough/cold/ allergy Ondansetron HCl Oral Tablet 4 MG active 2 RXNORM 1 table t Oral as needed PRN Give 1 table t by mouth every 4 hours as neede d for nause a/vom iting 2024 - nausea/vomi ting Ferrous Sulfate Oral Tablet Delayed Release 324 (65 Fe) MG active 53324 4 RXNORM 1 table t Oral other Routin e Give 1 table t by mouth EOD every other day for Iron Defic it 2024 - Iron Deficit Docusate Sodium Oral Capsule 100 MG active 45035 05 RXNORM 2 capsu le Oral two times a day Routin e Give 2 capsu le by mouth two times a day for const ipati on 2024 - constipatio n Furosemide Tablet 40 MG active 50876 8 RXNORM 3 table t Oral two times a day Routin e Give 3 table t by mouth two times a day every Tue, Steffanie, Sat for Lasix Admin ister on non-d ialys is days 2024 - Lasix Doxycycline Hyclate Oral Capsule 100 MG active 07427 88 RXNORM 1 capsu le Oral every 12 hours Routin e Give 1 capsu le by mouth every 12 hours for Infec tion for 2 Days 07/31 Infection Insulin Glargine Solution 100 UNIT/ML active 51666 1 RXNORM 15 unit Subcut aneous one time a day Routin e Injec t 15 unit subcu taneo usly one time a day for diabe stephanie 2024 - diabetes Cetirizine HCl Oral Tablet 10 MG active 71668 78 RXNORM 1 table t Oral as needed PRN Give 1 table t by mouth every 24 hours as neede d for aller gies PRN daily 2024 - allergies Cranberry Oral Tablet 500 MG active 1 table t Oral three times a day Routin e Give 1 table t by mouth three times a day for [facility] 2024 - bladder health Xphozah Oral Tablet 30 MG active 79082 54 RXNORM 1 table t Oral at bedtime Routin e Give 1 table t by mouth at bedti me for [facility] 2024 - bladder health Cyanocobala min Oral Tablet 1000 MCG active 13385 3 RXNORM 1 table t Oral one time a day Routin e Give 1 table t by mouth one time a day for Vitam in defic it 2024 - Vitamin deficit Sertraline HCl Oral Tablet 50 MG active 19485 1 RXNORM 1 table t Oral one time a day Routin e Give 1 table t by mouth one time a day for depre ssion 2024 - depression Simethicone Oral Capsule 125 MG active 2 RXNORM 1 capsu le Oral as needed PRN Give 1 capsu le by mouth every 24 hours as neede d for abdom inal diste ntion PRN daily 2024 - abdominal distention tiZANidine HCl Oral Tablet 2 MG active 91950 2 RXNORM 1 table t Oral as needed PRN Give 1 table t by mouth every 8 hours as neede d for muscl e spasm s 2024 - muscle spasms busPIRone HCl Oral Tablet 5 MG active 07755 4 RXNORM 1 table t Oral three times a day Routin e Give 1 table t by mouth three times a day for anxie ty 2024 - anxiety Methylpheni date HCl Oral Tablet 10 MG active 50205 50 RXNORM 1 table t Oral two times a day Routin e Give 1 table t by mouth two times a day for narco lepsy BID with Meals 2024 - narcolepsy Fluconazole Oral Tablet 150 MG active 75414 9 RXNORM 1 table t Oral one time a day Routin e Give 1 table t by mouth one time a day every Sat for Vagin al yeast 2024 - Vaginal yeast Xphozah Oral Tablet 30 MG active 25819 54 RXNORM 1 table t Oral two times a day Routin e Give 1 table t by mouth two times a day for bladd er healt h given with break fast and super 2024 - bladder health Eliquis Oral Tablet 5 MG active 19144 47 RXNORM 1 table t Oral two times a day Routin e Give 1 table t by mouth two times a day for coagu latio n 2024 - coagulation Abilify Oral Tablet active 3 mg Oral one time a day Routin e Give 3 mg by mouth one time a day for a 2024 - a Tylenol Oral Tablet active 1000 mg Oral one time a day Routin e Give 1000 mg by mouth one time a day for pain 2024 - pain Rosuvastati n Calcium Oral Tablet 10 MG active 37900 7 RXNORM 1 table t Oral one time a day Routin e Give 1 table t by mouth one time a day for hyper lipid emia 2024 - hyperlipide carl traMADol HCl Oral Tablet 50 MG active 82244 3 RXNORM 50 mg Oral as needed PRN CHRISTIANO Give 50 mg by mouth every 6 hours as neede d for Pain - Moder ate relat ed to AGE-R ELATE D 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) give trama dol 50md po mQID prn for pain 2024 - Pain - Moderate Ipratropium -Albuterol Solution 0.5-2.5 (3) MG/3ML active 37298 02 RXNORM 1 vial Inhala tion four times a day Routin e 1 vial inhal e orall y four times a day for sob for 5 Days 08/03 sob Metoprolol Tartrate Oral Tablet 25 MG active 37528 4 RXNORM 1 table t Oral two times a day Routin e Give 1 table t by mouth two times a day for Hyper tensi on Hold AM dose on dial days only 2024 - Hypertensio n Insulin Glargine Solution 100 UNIT/ML aborted 06728 1 RXNORM 25 unit Subcut aneous one time a day Routin e Injec t 25 unit subcu taneo usly one time a day for diabe stephanie 07/28 diabetes Nitroglycer in Sublingual Tablet Sublingual aborted 0.4 mg Sublin gual as needed PRN Give 0.4 mg subli ngual ly as neede d for chest pain 0.4mg sl every 5 minut es up to 3 doses per episo de 07/09 chest pain Polyethylen e Glycol Powder aborted 17 gram Oral as needed PRN Give 17 gram by mouth every 24 hours as neede d for const ipati on 07/09 constipatio n Methylpheni date HCl Oral Tablet 10 MG aborted 40433 50 RXNORM 10 mg Oral two times a day Routin e Give 10 mg by mouth two times a day for narco lepsy relat ed to 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 9) 1 tab every other day 07/09 supplementa tion Metoprolol Tartrate Oral Tablet 25 MG aborted 79196 4 RXNORM 25 mg Oral every 12 hours Routin e Give 25 mg by mouth every 12 hours for htn relat ed to ESSMARCO ANTONIO TIAL (PRIM ATIF) HYPER TENSI ON (I10) 07/09 htn Cyanocobala min Tablet 1000 MCG aborted 60839 3 RXNORM 1 table t Oral one time a day Routin e Give 1 table t by mouth one time a day for defic iency relat ed to ANEMI A, UNSPE CIFIE D (D64. 9) 07/09 deficiency Rosuvastati n Calcium Oral Tablet 10 MG aborted 06087 7 RXNORM 1 table t Oral one time a day Routin e Give 1 table t by mouth one time a day for high sneha stero l relat ed to HYPER LIPID EMIA, UNSPE CIFIE D (E78. 5) 07/09 high cholesterol Docusate Sodium Oral Capsule 100 MG aborted 25479 05 RXNORM 200 mg Oral as needed PRN Give 200 mg by mouth every 12 hours as neede d for const ipati on 07/09 constipatio n Acetaminoph en Tablet 650 MG aborted 4 RXNORM 1 table t Oral as needed PRN Give 1 table t by mouth every 4 hours as neede d for Gener al Disco mfort 07/09 General Discomfort NovoLOG Solution 100 UNIT/ML aborted 25369 6 RXNORM n/a n/a Subcut aneous two times a day Routin e Injec t as per tami ng scale : if 200 - 250 = 4 units ; 251 - 300 = 6 units ; 301 - 350 = 8 units ; 351 - 400 = 12 units ; 401 - 500 = 12 units Call MD if great er than 400, subcu taneo usly two times a day relat ed to TYPE 2 DIABE 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 9) 07/09 - Ambien Oral Tablet 5 MG aborted 05895 8 RXNORM 1 table t Oral at bedtime Routin e Give 1 table t by mouth at bedti me relat ed to OTHER INSOM HARRIS (G47. 09) 07/09 - Ondansetron HCl Tablet 4 MG aborted 71347 2 RXNORM 1 table t Oral as needed PRN Give 1 table t by mouth every 6 hours as neede d for Nause a and Vomit ing 07/09 Nausea and Vomiting Diflucan Oral Tablet 150 MG aborted 8 RXNORM 1 table t Oral one time a day Routin e Give 1 table t by mouth one time a day every Sat relat ed to [facility] TRACT INFEC TION, SITE NOT SPECI FIED (N39. 0) 07/09 - ARIPiprazol e Oral Tablet 2 MG aborted 11655 4 RXNORM 3 mg Oral at bedtime Routin e Give 3 mg by mouth at bedti me relat ed to ANXIE TY DISOR RAUL, UNSPE CIFIE D (F41. 9) 07/09 - Cranberry Oral Capsule 500 MG aborted 500 mg Oral three times a day Routin e Give 500 mg by mouth three times a day for suppl ement 07/09 supplement Eliquis Oral Tablet 5 MG aborted 63749 47 RXNORM 5 mg Oral two times a day Routin e Give 5 mg by mouth two times a day for antic oagul ant 07/09 anticoagula nt busPIRone HCl Oral Tablet 5 MG aborted 30749 4 RXNORM 1 table t Oral three times a day Routin e Give 1 table t by mouth three times a day relat ed to ANXIE TY DISOR RAUL, UNSPE CIFIE D (F41. 9) 07/09 - Basaglmaile Thompson Subcutaneou s Solution Pen-injecto r 100 UNIT/ML aborted 03563 63 RXNORM 25 unit Subcut aneous in the morning Routin e Injec t 25 unit subcu taneo usly in the 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 22) Check B/S prior to Insul in. Hold Insul in if B/S below 100 07/09 - Sertraline HCl Oral Tablet 25 MG aborted 62753 0 RXNORM 2 table t Oral one time a day Routin e Give 2 table t by mouth one time a day relat ed to [facility] DEPRE SSIVE DISOR RAUL, RECUR RENT, MODER ATE (F33. 1) 07/09 - Ipratropium -Albuterol Solution 0.5-2.5 (3) MG/3ML aborted 59044 02 RXNORM 3 ml Inhala tion as needed PRN 3 ml inhal e orall y every 8 hours as neede d for SOB or Wheez ing via nebul izer 07/09 SOB or Wheezing Cetirizine HCl Oral Tablet 10 MG aborted 33295 78 RXNORM 1 table t Oral as needed PRN Give 1 table t by mouth every 24 hours as neede d for Aller gies relat ed to ALLER GIC RHINI TIS, UNSPE CIFIE D (J30. 9) Once Daily PRN 07/09 Allergies Simethicone Oral Capsule 125 MG aborted 2 RXNORM 125 capsu le Oral as needed PRN Give 125 capsu le by mouth as neede d for 1-2 capsu les daily as neede d for abd diste ntion 07/09 1-2 capsules daily as needed for abd distention Stool Softener Oral Tablet 100 MG aborted 2 table t Oral one time a day Routin e Give 2 table t by mouth one time a day for const ipati on 07/09 constipatio n Acetaminoph en Oral Tablet 500 MG aborted 0 RXNORM 2 table t Oral one time a day Routin e Give 2 table t by mouth one time a day for pain 07/09 pain Tenapanor HCl (CKD) Oral Tablet 30 MG aborted 51834 52 RXNORM 1 table t Oral one time a day Routin e Give 1 table t by mouth one time a day for phosp horou s binde r give befor e dinne r 07/09 phosphorous binder Zanaflex Oral Capsule 2 MG aborted 90134 5 RXNORM 2 mg Oral as needed PRN Give 2 mg by mouth every 8 hours as neede d for muscl e relax ant 07/09 muscle relaxant Dicloxacill in Sodium Oral Capsule 250 MG aborted 5 RXNORM 250 capsu le Oral two times a day Routin e Give 250 capsu le by mouth two times a day for UTI until 07/11 23:59 07/09 UTI Nitroglycer in Tablet Sublingual 0.4 MG aborted 9 RXNORM 1 table t Sublin gual as needed PRN Give 1 table t subli ngual ly every 5 minut es as neede d for Chest Pain x 3 doses . If no relie f, call . 07/23 Chest Pain guaiFENesin ER Oral Tablet Extended Release 12 Hour 600 MG aborted 66096 2 RXNORM 2 table t Oral as needed PRN Give 2 table t by mouth every 12 hours as neede d for cough /cold /james rgy 07/23 cough/cold/ allergy Tylenol Extra Strength Oral Tablet 500 MG aborted 28527 9 RXNORM 1 table t Oral as needed PRN Give 1 table t by mouth every 6 hours as neede d for pain 07/23 pain Ondansetron HCl Oral Tablet 4 MG aborted 2 RXNORM 1 table t Oral as needed PRN Give 1 table t by mouth every 4 hours as neede d for nause a/vom iting 07/23 nausea/vomi ting Eliquis Oral Tablet 5 MG aborted 62591 47 RXNORM 1 table t Oral two times a day Routin e Give 1 table t by mouth two times a day for coagu latio n 07/15 coagulation Ferrous Sulfate Oral Tablet Delayed Release 324 (65 Fe) MG aborted 40832 4 RXNORM 1 table t Oral other Routin e Give 1 table t by mouth EOD every other day for Iron Defic it 07/23 Iron Deficit Cetirizine HCl Oral Tablet 10 MG aborted 84069 78 RXNORM 1 table t Oral as needed PRN Give 1 table t by mouth every 24 hours as neede d for aller gies PRN daily 07/23 allergies Cranberry Oral Tablet 500 MG aborted 1 table t Oral three times a day Routin e Give 1 table t by mouth three times a day for bladd er healt h 07/23 bladder health Xphozah Oral Tablet 30 MG aborted 66280 54 RXNORM 1 table t Oral at bedtime Routin e Give 1 table t by mouth at bedti me for bladd er healt h 07/14 bladder health Nystatin External Powder 403380 UNIT/GM aborted 39714 6 RXNORM n/a n/a Topica l two times a day Routin e Apply to affec [place] area topic ally two times a day for rash 07/12 rash Metoprolol Tartrate Oral Tablet 25 MG aborted 09308 4 RXNORM 1 table t Oral two times a day Routin e Give 1 table t by mouth two times a day for Hyper tensi on 07/20 Hypertensio n Zolpidem Tartrate Oral Tablet 5 MG aborted 90351 6 RXNORM 1 table t Oral at bedtime Routin e Give 1 table t by mouth at bedti me for insom harris 07/23 insomnia Fluconazole Oral Tablet 150 MG aborted 19760702 RXNORM 1 table t Oral one time a day Routin e Give 1 table t by mouth one time a day every Mon for antif ungal 07/13 antifungal Dicloxacill in Sodium Oral Capsule 250 MG complet ed 19750628 RXNORM 1 capsu le Oral two times a day Routin e Give 1 capsu le by mouth two times a day for infec tion for 10 Days x 10 days 07/22 infection Methylpheni date HCl Oral Tablet 10 MG aborted 32353 50 RXNORM 1 table t Oral two times a day Routin e Give 1 table t by mouth two times a day for narco lepsy BID with Meals 07/13 narcolepsy Tylenol 8 Hour Oral Tablet Extended Release 650 MG aborted 94064 40 RXNORM 1 table t Oral as needed PRN Give 1 table t by mouth every 4 hours as neede d for gener al disco mfort 07/15 general discomfort Sertraline HCl Oral Tablet 50 MG aborted 09601 1 RXNORM 1 table t Oral one time a day Routin e Give 1 table t by mouth one time a day for depre ssion 07/23 depression Simethicone Oral Capsule 125 MG aborted 2 RXNORM 1 capsu le Oral as needed PRN Give 1 capsu le by mouth every 24 hours as neede d for abdom inal diste ntion PRN daily 07/23 abdominal distention tiZANidine HCl Oral Tablet 2 MG aborted 99497 2 RXNORM 1 table t Oral as needed PRN Give 1 table t by mouth every 8 hours as neede d for muscl e spasm s 07/23 muscle spasms Insurance Providers Plan of Treatment Section Interventions Intervention Code Code System Display Name Proposed D ate Problems Problem # Description Date of onset Resolved Date Code CodeSystem Concern Status 1 MUSCLE WEAKNESS (GENERALIZED) [address] active 2 NEED FOR ASSISTANCE WITH PERSONAL CARE [id number] active 3 URINARY TRACT INFECTION, SITE NOT SPECIFIED [address] active 4 ALLERGIC RHINITIS, UNSPECIFIED [address] active 5 OTHER CHRONIC POSTPROCEDURAL PAIN 024 07/10/[address] completed 6 END STAGE RENAL DISEASE [address] active 7 ACIDOSIS, UNSPECIFIED 024 05/24/[address] completed 8 ACUTE EMBOLISM AND THROMBOSIS OF UNSPECIFIED DEEP VEINS OF UNSPECIFIED LOWER EXTREMITY 024 11/30/[address] completed 9 ACUTE RESPIRATORY FAILURE, UNSPECIFIED WHETHER WITH HYPOXIA OR HYPERCAPNIA 024 05/24/[address] completed 10 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 [address] active 11 CHRONIC KIDNEY DISEASE, STAGE [address] active 12 DEPENDENCE ON RENAL DIALYSIS [address] active 13 DYSPHAGIA, UNSPECIFIED [address] active 14 EPILEPSY, UNSPECIFIED, NOT INTRACTABLE, WITHOUT STATUS EPILEPTICUS [address] active 15 NEUROMUSCULAR DYSFUNCTION OF BLADDER, UNSPECIFIED [address] active 16 URINARY TRACT INFECTION, SITE NOT SPECIFIED 024 05/24/[address] completed 17 ACUTE ON CHRONIC SYSTOLIC (CONGESTIVE) HEART FAILURE [address] active 18 ANEMIA, UNSPECIFIED [address] active 19 ANXIETY DISORDER, UNSPECIFIED [address] active 20 ENCEPHALOPATHY, UNSPECIFIED 024 05/24/[address] completed 21 HYPERCALCEMIA 024 09/24/[address] completed 22 HYPERLIPIDEMIA, UNSPECIFIED [address] active 23 OTHER INSOMNIA [address] active 24 UNSPECIFIED ATRIAL FIBRILLATION [address] active 25 URINARY TRACT INFECTION, SITE NOT SPECIFIED 024 02/25/[address] completed 26 COUGH, UNSPECIFIED 024 01/13/[address] completed 27 ACUTE KIDNEY FAILURE, UNSPECIFIED 022 01/13/[address] completed 28 CHRONIC KIDNEY DISEASE, STAGE 4 (SEVERE) 022 09/24/[address] completed 29 ACUTE AND CHRONIC RESPIRATORY FAILURE WITH HYPOXIA 41947880740992747 SNOMED CT active 30 ALTERED MENTAL STATUS, UNSPECIFIED 05/24/[address] completed 31 URINARY TRACT INFECTION, SITE NOT SPECIFIED 06/15/[address] completed 32 ALTERED MENTAL STATUS, UNSPECIFIED 04/09/[address] completed 33 DEHYDRATION 02/25/[address] completed 34 URINARY TRACT INFECTION, SITE NOT SPECIFIED 03/12/[address] completed 35 UNSPECIFIED HEARING LOSS, UNSPECIFIED EAR 78858617 SNOMED CT active 36 STABLE BURST FRACTURE OF UNSPECIFIED LUMBAR VERTEBRA, SUBSEQUENT ENCOUNTER FOR FRACTURE WITH DELAYED HEALING 931440753 SNOMED CT active 37 ENCEPHALOPATHY, UNSPECIFIED 67991922 SNOMED CT active 38 TYPE 2 DIABETES MELLITUS WITH DIABETIC CHRONIC KIDNEY DISEASE 00777499 SNOMED CT active 39 TYPE 2 DIABETES MELLITUS WITH HYPERGLYCEMIA 022 09/24/[address] completed 40 [place] DISEASE 810835578 SNOMED CT active 41 CEREBROVASCULAR DISEASE, UNSPECIFIED 17161822 SNOMED CT active 42 CHRONIC ATRIAL FIBRILLATION, UNSPECIFIED 09/24/[address] completed 43 CHRONIC DIASTOLIC (CONGESTIVE) HEART FAILURE 09/24/[address] completed 44 CHRONIC KIDNEY DISEASE, UNSPECIFIED 022 01/13/[address] completed 45 CYSTITIS, UNSPECIFIED WITHOUT HEMATURIA 06/15/[address] completed 46 ENCEPHALOPATHY, UNSPECIFIED 022 02/25/[address] completed 47 ESSENTIAL (PRIMARY) HYPERTENSION 10444401 SNOMED CT active 48 MAJOR DEPRESSIVE DISORDER, RECURRENT, MODERATE 16824331 SNOMED CT active 49 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 48595477 SNOMED CT active 50 MIXED HYPERLIPIDEMIA [address] active 51 MORBID (SEVERE) OBESITY DUE TO EXCESS CALORIES 700755970 SNOMED CT active 52 NONRHEUMATIC AORTIC (VALVE) INSUFFICIENCY [address] active 53 OTHER SNF (CURRENT) DRUG THERAPY 06/15/[address] completed 54 PULMONARY HYPERTENSION, UNSPECIFIED 78881458 SNOMED CT active 55 UNSPECIFIED DEMENTIA, UNSPECIFIED SEVERITY, WITHOUT BEHAVIORAL DISTURBANCE, PSYCHOTIC DISTURBANCE, MOOD DISTURBANCE, AND ANXIETY 05643810 SNOMED CT active 56 VITAMIN D DEFICIENCY, UNSPECIFIED 81385840 SNOMED CT active 57 URINARY TRACT INFECTION, SITE NOT SPECIFIED 022 02/23/[address] completed 58 AGE-RELATED OSTEOPOROSIS WITHOUT CURRENT PATHOLOGICAL FRACTURE 44720206 SNOMED CT active 59 OTHER SPECIFIED SYMPTOMS AND SIGNS INVOLVING THE CIRCULATORY AND RESPIRATORY SYSTEMS 020 06/15/[address] completed 60 CHRONIC OBSTRUCTIVE PULMONARY DISEASE, UNSPECIFIED [address] active 61 PERSONAL HISTORY OF IRRADIATION [address] active 62 ACTINIC KERATOSIS [address] active 63 PERSONAL HISTORY OF ANTINEOPLASTIC CHEMOTHERAPY [address] active Reason for Referral No Reasons for Referral Entered Social History Social History Observation Description Start Date End Date Code Code System Current Smoking Status Tobacco smoking consumption unknown 102049981 SNOMED CT Sex Assigned At Female 1945 61017-5 [facility] Gender Identity Sexual Orientation Vital Signs Code Code System Vitals Name Values and Units Timing Information 2339-0 LOINC Blood Sugar Kcysu=301.0 Units=mg/dL 07/29/2025 27599-9 LOINC Pain Level Value=6.0 07/29/2025 9279-1 [facility] Respiratory Rate Value=18.0 Units=/m in 07/29/2025 8462-4 LOINC Blood Pressure-Diastolic Value=93 Un its=mmHg 07/29/2025 8480-6 LOINC Blood Pressure-Systolic Pdjrm=228 Un its=mmHg 07/29/2025 8310-5 [facility] Body Temperature Value=97.9 Units= F 07/29/2025 8867-4 [facility] Heart rate Value=62.0 Units=/min 03/2025 84231-4 [facility] O2 % BldC Oximetry Value=99.0 Units= % 07/29/2025 39163-4 [facility] Weight Lghuz=780.5 Units=Lbs 07/2025 8302-2 [facility] Height Value=67.0 Units=Inches 10/04/2023
--- OUTSIDE RECORDS SUMMARY | 2025-07-29 16:16 | XMS_ITS | Encounter Summary ---
Author Organization [facility] Healthcare Address [address] [place] [address] Care Team Providers Care Marketing Operations Consultant Name Role Phone Carl Maloney MD Primary Care Provider [phone] Encounter Details Date Type Department Care Team (Late st Contact Info) Description 09/01/2021 Documentation [facility] Case Management [address] [place] [address] Beatris Mcwilliams RN Social History Tobacco Use Types Packs/Day Years Used Date Smoking Tobacco: Never Smokeless Tobacco: Never Social Connection and Isolation Panel Answer Date Recorded In a typical week, how many times do you talk on the phone with family, friends, or neighbors? More than three times a week 09/03/2021 How often do you get togethe r with friends or relatives? Once a week 09/03/2021 How often do you attend chur or latter-day services? Patient declined 09/03/2021 Do you belong to any clubs o r organizations such as adventist groups, unions, fraternal or athletic groups, or school groups? Patient declined 09/03/2021 How often do you attend meet ings of the clubs or organizations you belong to? Patient declined 09/03/2021 Are you , , di vorced, , never , or living with a partner? 09/03/2021 AUDIT-C Answer Date Recorded Q1: How often do you have a drink containing alc ohol? Never 08/01/2021 Average Number of Drinks Not on file 021 Q3: How often do you have si x or more drinks on one occasion? Never 08/01/2021 Overall Financial Resource Strain (CARDIA) Answe r [...] place to sleep or slept in a residential (including now)? 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 Patient's current plan of care, expected discharge date and disposition discussed. D APPRAISER documented in this encounter Plan of Treatment Not on file documented as of this encounter Visit Diagnoses Not on filedocumented in this encounter Additional Health Concerns Infection Onset Date Last Indicated Resolved Time MDR gram neg/ESBL 08/23/2021 08/23/2021 documented as of this encounter Care Teams Marketing Operations Consultant Relationship Specialty Start Date End Date Carl Maloney MD PCP - General Internal Medicine 07/07/20 documented as of this encounter
--- OUTSIDE RECORDS SUMMARY | 2025-07-29 16:16 | XMS_ITS ---
Author Organization [facility] Care Team Providers Care Manufacturing Helper Name Role Phone Winston Stevens Unavailable Unavailable Allergies and adverse reactions Code CodeSystem Substance Reaction Severity StartDate Concern Status Sulfacet Fixed drug erup tion (code- 84349513, SNOMED CT) Moderate 06/21/2021 active Care Team Name Role Address Phone Organization Dates Winston Stevens PCP [address] [place], [address], [place] (Office): : : [facility] 06/18/2021 - 06/23/2021 Immunizations Immunization Status Vaccine Details Vaccine Code CodeSystem Date Notes Prevnar 13 cancelled pneumococcal conjugate vaccine, 13 valent 133 CVX created date: 06/22/2021 consent date: 06/22/2021 SARS-COV-2 (COVID-19) cancelled SARS-COV-2 (COVID-19) vaccine, mRNA, spike protein, LNP, preservative free, 100 mcg/0.5mL dose or 50 mcg/0.25mL dose 207 CVX created date: 06/22/2021 consent date: 06/22/2021 TB 1 Step Mantoux (PPD) completed lotNumber: [id number] expiry: 06/24/2022 Mfg: Pharmaceutical Given 0.1 ml Left Forearm intradermally created date: 06/22/2021 consent date: 06/22/2021 administere d date: 06/22/2021 Mental Status Section Date Assessment Total Score Description 06/23/2021 BIMS 13 cognitively int act CAM 0 No delirium ind icated PHQ-9 15 moderately marcello re depression Insurance Providers Problems Problem # Description Date of onset Resolved Date Code CodeSystem Concern Status 1 ACUTE RESPIRATORY FAILURE WITH HYPOXIA 06/18/[address] active 2 ATHEROSCLEROTIC HEART DISEASE OF [place] CORONARY ARTERY WITHOUT ANGINA PECTORIS 06/18/[address] active 3 CHRONIC KIDNEY DISEASE, STAGE 4 (SEVERE) 06/18/[address] active 4 COGNITIVE COMMUNICATION DEFICIT 06/18/[address] active 5 ESSENTIAL (PRIMARY) HYPERTENSION 06/18/[address] active 6 HEART FAILURE, UNSPECIFIED 06/18/[address] active 7 HYPERLIPIDEMIA, UNSPECIFIED 06/18/[address] active 8 METABOLIC ENCEPHALOPATHY 06/18/[address] active 9 OTHER ABNORMALITIES OF GAIT AND MOBILITY 06/18/[address] active 10 OTHER LACK OF COORDINATION 06/18/[address] active 11 PERSONAL HISTORY OF MALIGNANT NEOPLASM OF BREAST 06/18/[address] active 12 TYPE 2 DIABETES MELLITUS WITHOUT COMPLICATIONS 06/18/[address] active 13 UNSPECIFIED ATRIAL FIBRILLATION 06/18/[address] active 14 UNSPECIFIED CONVULSIONS 06/18/[address] active 15 WEAKNESS 06/18/[address] active Reason for Referral No Reasons for Referral Entered Social History Social History Observation Description Start Date End Date Code Code System Current Smoking Status Tobacco smoking consumption unknown 340496008 SNOMED CT Sex Assigned At Female 1945 02781-8 [facility] Gender Identity Sexual Orientation Vital Signs Code Code System Vitals Name Values and Units Timing Information 9279-1 LOINC Respiratory Rate Value=18.0 Units=/m in 06/22/2021 8462-4 LOINC Blood Pressure-Diastolic Value=76 Un its=mmHg 06/22/2021 8480-6 LOINC Blood Pressure-Systolic Rasbe=326 Un its=mmHg 06/22/2021 8310-5 LOINC Body Temperature Value=97.5 Units= F 06/22/2021 8867-4 LOINC Heart rate Value=80.0 Units=/min 40066-6 [facility] O2 % BldC Oximetry Value=98.0 Units= % 06/21/2021 84091-5 [facility] Weight Uydou=943.0 Units=Lbs
--- NOTE | 2025-07-29 17:02 | PM.IMHP ---
H&P: HPI History of Present Illness Date/Time: 07/29/25 17:02 Chief Complaint: AMS, Hypotension Narrative: 80 y/o F with PMH of AFib, DVT, anemia, breast cancer, dementia, Castleman disease, CHF, CKD, diabetes, ESBL, myocardial infarction, sleep apnea on supplemental O2 at night, hyperlipidemia, hypertension, kidney stones, MRSA, pulmonary hypertension, and stroke presents here with altered mental status and hypotension. The patient presents here from [facility] on 07/29 for further evaluation of altered mental status and hypotension. HPI obtained through chart review, EMS report, and daughter report as the patient is currently altered. Patient receives HD on Mondays, Wednesdays and Fridays. Patient was there for treatment today when it was noted that her blood pressure was 78/40. She was given a a 500 mL bolus by the dialysis staff without response. Upon EMS arrival the patient's blood pressure was 76/42. While in route to the hospital the patient's blood pressure improved. Upon arrival to the emergency department the patient's blood pressure was 91/32. Patient is normally A/Ox4 despite history of dementia. Now A/Ox1. Of note, she was recently admitted to [facility] in [facility] for severe sepsis, hypoxia, and hyperkalemia. She was found to have pneumonia. She was treated there from 07/22/25-07/28/25. Daughter reports she had negative blood cultures at that time. At time of d/c the daughter reports she was not confused, remained somewhat weak, but seemed improved but not back to her baseline which is ambulatory. She also noted the patient had a coughing episode yesterday where she coughed up clear to white sputum. The patient denies chest pain, shortness of breath, fever, chills, body aches however she is unreliable at present. Initial VS at presentation: HR 102, RR 22, 91/32, and 94% on RA. ED workup showed: No leukocytosis, hemoglobin 8.7 (at baseline), INR 1.8, creatinine 5.37 and GFR 8 (3.37 and GFR 13 on 07/11/2025), glucose 223, lactic 2.0, ALT 47, albumin 3.2. CXR showed CHF and superimposed probable pneumonia. Initial EKG showed AFib, rate 91, incomplete left bundle-branch block, baseline artifact (when compared to previous EKG done on 11/05/2024 there are no significant changes). Review of Systems Review of Systems: ROS unobtainable: Yes unobtainable due to mental status (Limited, A&O x1) [facility] Past Medical History Medical History (Updated 07/29/25 @ 19:56 by Kendra Scanlon, WILLIAM) CHF (congestive heart failure) Echocardiogram 2021 from [facility]: Left ventricular size mildly enlarged left ventricular systolic function moderately depressed with EF of 35-40%, mild concentric left ventricular hypertrophy, diastolic dysfunction indeterminate due to AFib, moderate global hypokinesis, moderate right ventricular enlargement with normal right ventricular systolic function, severe left atrial volume overload greater than 48 mL, moderate right atrial enlargement, mildly dilated aortic root mild aortic regurgitation Chronic indwelling Braswell catheter Anxiety Frequent UTI BMI 38.0-38.9,adult Chronic back pain Seasonal allergies Hypercalcemia Cataract of right eye CHELSEA on CPAP Intolerant to CPAP Narcolepsy Poorly documented Dementia Depression Knee pain Thoracic aortic aneurysm Vitamin B12 deficiency Constipation History of orthostatic hypotension Left ventricular outflow obstruction echocardiogram May 2020 Stress incontinence in female Osteoporosis DEXA scan 08/14/2020 Hearing loss of both ears Vitamin D deficiency Carotid bruit less than 50% stenosis of right internal carotid artery a on Doppler 07/01/2020 Kidney stones of the left kidney with multiple lithotripsies Cancer of right breast status post radiation and chemotherapy Thyroid nodule (~2014) Overactive bladder A-fib Hyperlipidemia 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 DM type 2 (diabetes mellitus, type 2) (~2018) Benign essential hypertension Surgical History Surgical History Status post right cataract extraction Status post cataract extraction and insertion of intraocular lens of right eye Status post right breast lumpectomy Family History Family History Sibling Diabetes mellitus Father Diabetes mellitus CHF (congestive heart failure) Kidney failure Mother Cervical cancer Ovarian cancer Sibling Diabetes mellitus Brain bleed Hypertension Cerebrovascular accident Social History Social History Social History: She resides at [facility]. She is . She is a lifelong nonsmoker and does not drink alcohol or use illicit substances. She is retired from the [employer]. Code status: Full code Surrogate decision maker: Daughter Smoking status: Never smoker Second hand tobacco smoke exposure: No Alcohol intake: never Substance use: never Substance use type: does not use Do You Feel Safe in your Home?: Yes Lack of Transportation: No Lack of Food: Never True Current Housing: I Have Housing Concerned About Future Housing: No Difficulty Paying Gas/Electric Bills: No Difficulty Paying for Meds: No Currently Unemployed: No Education: High School Diploma/GED Difficulty w/ Childcare or Family Care: No Living arrangements[place] [facility] Occupation/Education: retired 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 Gender identity (if verbalized by the patient): Female Sexual Orientation (if Verbalized by the Patient): Straight or Heterosexual Spiritual care concerns: No Agree to blood products: Yes Meds Home Medications and Allergies Home Medications ?Medication ?Instructions ?Recorded ?Confirmed ?Type cyanocobalamin (vitamin B-12) 1,000 mcg PO DAILY 08/18/20 07/29/25 History 1,000 mcg tablet ferrous sulfate 324 mg (65 mg 325 mg PO EVERY OTHER DAY 01/11/22 07/29/25 History iron) tablet,delayed release cranberry 500 mg capsule 500 mg PO TID 01/16/24 07/29/25 History nitroglycerin 0.4 mg sublingual 0.4 mg sublingual Q5M PRN Chest 02/03/24 07/29/25 Rx tablet Pain #25 tabs insulin aspart U-100 100 unit/mL See Rx Instructions subcut 03/21/24 07/29/25 Rx subcutaneous solution (Novolog .COMPLEX #10 mL U-100 Insulin aspart) fluconazole 150 mg tablet 150 mg PO WEEKLY 04/24/24 07/29/25 History blood-glucose sensor (FreeStyle #1 ea 05/29/24 07/29/25 Rx Robbi 3 Sensor device) ondansetron 4 mg disintegrating 4 mg PO Q6H PRN nausea and vomiting 09/04/24 07/29/25 History tablet apixaban 5 mg tablet (Eliquis) 5 mg PO BID #180 tabs 11/07/24 07/29/25 Rx dextromethorphan-guaifenesin ER 60 1 tablet PO Q12H PRN congestion 11/21/24 07/29/25 History mg-1,200 mg tab,extend release,12hr (Mucinex DM) pen needle, diabetic 32 gauge x #100 ea 11/30/24 07/29/25 Rx (BD Lindsay 2nd Gen Pen Needle) cetirizine 10 mg capsule (All Day 10 mg PO DAILY PRN allergy 01/21/25 07/29/25 Rx Allergy (cetirizine)) symptoms #90 caps simethicone 125 mg capsule (Gas-X 250 mg (2 x 125 mg) PO DAILY PRN 02/18/25 07/29/25 Rx Extra Strength) abdominal distention #20 caps buspirone 5 mg tablet See Rx Instructions .Route 02/25/25 07/29/25 Rx .COMPLEX #270 tabs acetaminophen 500 mg capsule 500 mg PO Q6H PRN cHONIC BACK PAIN 02/26/25 07/29/25 History docusate sodium 100 mg capsule 200 mg PO BID 02/26/25 07/29/25 History Thigh High SANDOVAL hose #3 pkgs 04/30/25 07/29/25 Rx aripiprazole 2 mg tablet See Rx Instructions .Route 04/30/25 07/29/25 Rx .COMPLEX #135 tabs rosuvastatin 10 mg tablet 10 mg PO DAILY #90 tabs 04/30/25 07/29/25 Rx sertraline 50 mg tablet 50 mg PO DAILY #90 tabs 04/30/25 07/29/25 Rx nystatin 100,000 unit/gram topical 1 applic topical BID #60 grams 06/04/25 07/29/25 Rx powder methylphenidate HCl 10 mg tablet 10 mg PO BIDWMEAL #60 tabs 07/04/25 07/29/25 Rx acetaminophen 650 mg 650 mg PO Q4H PRN GENERAL 07/06/25 07/29/25 History tablet,extended release DISCOMFORT metoprolol tartrate 25 mg tablet 25 mg PO BID 07/06/25 07/29/25 History tenapanor 30 mg tablet (Xphozah) 30 mg PO QPM 07/06/25 07/29/25 History tizanidine 2 mg capsule (Zanaflex) 2 mg PO Q8H PRN muscle spasticity 07/06/25 07/29/25 History lidocaine-prilocaine 2.5 %-2.5 % 60 g topical WITH DIALYSIS PRN for 07/11/25 07/29/25 Rx topical cream dialysis #60 grams tramadol 50 mg tablet 50 mg PO QID PRN pain #50 tabs 07/17/25 07/29/25 Rx cefdinir 300 mg capsule 300 mg PO DAILY 07/29/25 07/29/25 History doxycycline hyclate 100 mg capsule 100 mg PO Q12H 07/29/25 07/29/25 History furosemide 40 mg tablet (Lasix) 40 mg PO BID 07/29/25 07/29/25 History insulin glargine 100 unit/mL (3 15 unit (0.15 mL) subcut QAM #15 mL 07/29/25 07/29/25 Rx mL) subcutaneous pen (Lantus Solostar U-100 Insulin) ipratropium 0.5 mg-albuterol 3 mg 3 ml inhalation Q4H PRN Shortness 07/29/25 07/29/25 History (2.5 mg base)/3 mL nebulization of Breath. soln midodrine 10 mg tablet 10 mg PO BID 07/29/25 07/29/25 History Allergies Allergy/AdvReac Type Severity Reaction Status Date / Time Sulfa (Sulfonamide Allergy Severe Rash Verified 07/29/25 17:57 Antibiotics) bupropion (From Wellbutrin) Allergy Intermediate Unknown Verified 07/29/25 17:57 Vital Signs Vital Signs - 24 hr 07/29/25 12:02 07/29/25 12:22 07/29/25 12:30 Pulse Rate 102 H 99 Respiratory Rate 22 H 19 18 Blood Pressure 91/32 L 76/59 L Pulse Oximetry 94 97 94 Oxygen Delivery Room Air Oxygen Flow Rate 07/29/25 12:45 07/29/25 13:00 07/29/25 14:02 Pulse Rate 88 88 87 Respiratory Rate 20 20 17 Blood Pressure 84/51 L 71/50 L 73/48 L Pulse Oximetry 93 95 94 Oxygen Delivery Oxygen Flow Rate 07/29/25 14:30 07/29/25 15:30 07/29/25 15:31 Pulse Rate 100 98 Respiratory Rate 20 29 H Blood Pressure 87/52 L 98/61 L Pulse Oximetry 96 95 95 Oxygen Delivery Nasal Cannula Oxygen Flow Rate 2 07/29/25 15:45 07/29/25 15:46 07/29/25 15:47 Pulse Rate 89 85 95 Respiratory Rate 18 18 Blood Pressure 83/65 L 83/65 L Pulse Oximetry 97 Oxygen Delivery Oxygen Flow Rate 07/29/25 15:55 07/29/25 16:04 07/29/25 16:16 Pulse Rate 95 107 H 108 H Respiratory Rate 18 14 16 Blood Pressure 97/86 L 97/80 L 116/83 Pulse Oximetry 97 95 95 Oxygen Delivery Oxygen Flow Rate 07/29/25 16:30 07/29/25 16:51 07/29/25 16:56 Pulse Rate 108 H 109 H 131 H Respiratory Rate 18 15 17 Blood Pressure 119/88 123/86 114/71 Pulse Oximetry 96 95 95 Oxygen Delivery Oxygen Flow Rate Exam Const: General: comfortable and no acute distress Other: , female, elderly, ill-appearing, obese body habitus HENMT: Face/Nose/Sinus: Normal nares present Mouth: Yes dry mucous membranes Eyes: General: appearance normal, both eyes and all related structures Sclera: sclerae normal Pupils: Equal, round and reactive pupils present EOM: EOMs intact bilaterally Resp: Effort & Inspection: normal respiratory effort Other: Bibasilar crackles, no wheezing. Nasal cannula in place place and tolerating well. Cardio: Rate: tachycardic Rhythm: abnormal rhythm (Consistent with AFib) Other: + murmur GI: Other: Abdomen soft, nondistended, nontender. Normoactive bowel sounds in all quadrants. Skin: General skin exam: normal color and no rashes or lesions noted Wounds: no wounds Neuro: Other: A&O to self, believed she was still at [facility] and unable to contribute to situational or year. Moving all extremities. PERRLA. Unable to follow commands, appears to be due to weakness. Extrem: Other: 3+ pitting edema to bilateral lower extremities, lower extremities very firm bilaterally extending from the feet to the upper thighs. Very tender to palpation making exam difficult. DP pulses 2+ bilaterally. Psych: Other: OPAL H&P: Results Labs Labs: Short CBC 07/29/25 Range/Units 12:52 WBC 7.2 (4.5-10.0) K/mm3 Hgb 8.7 L (12.0-15.0) g/dL Hct 30.2 L (37.0-47.0) % Plt Count 258 (150-375) k/mm3 BMP 07/29/25 12:52 Sodium 137 Potassium 4.9 Chloride 101 Carbon Dioxide 23 BUN 56 H D Creatinine 5.37 H Glucose 223 H Calcium 9.5 Liver Function 07/29/25 Range/Units 12:52 Total Bilirubin 0.6 (0.2-1.3) mg/dL AST 25 (14-36) U/L ALT 47 H (6-35) U/L Alkaline Phosphatase 181 H (38-126) U/L Albumin 3.2 L (3.5-5.1) g/dL Assessment and Plan Assessment and plan (1) Acute hypoxic respiratory failure: Code(s): J96.01 - Acute respiratory failure with hypoxia Status: Acute Assessment and Plan: 91-92% on room air, now 94% to 95% on 2L nasal cannula. CXR and CT of the chest/abdomen/pelvis showed pulmonary edema and a small left pleural effusion. Exam findings consistent with CHF exacerbation. Patient makes minimal urine and is currently a hemodialysis patient on Mondays, Wednesdays, and Fridays. Scheduled for dialysis today, however was unable to receive her treatment due to acute hypotension. - fluid balance via HD, currently unable to diurese due to hypotension - patient had recent treatment for pneumonia at [facility], had no current evidence on CT however continues to have a productive cough. Started on Zosyn and vancomycin added as she has +MRSA in her nares - check ABG (2) AMS (altered mental status): Qualifiers: Altered mental status type: transient alteration of awareness Qualified Code(s): R40.4 - Transient alteration of awareness Code(s): R41.82 - Altered mental status, unspecified Status: Acute Assessment and Plan: At baseline the patient is A&O x4. Currently A&O x1, at provided in correct place (reported she was at [facility], however was just discharged from there yesterday). Per daughter at the bedside, she has a history of confusion when taken out of her normal environment and does have a history of dementia however it is minimal. Head CT done on 07/29 showed no acute intracranial abnormality, personally reviewed and agree with impression. Patient was recently treated for pneumonia, no current evidence on CT however is having a productive cough. Antibiotics continued. Suspicion for metabolic encephalopathy verses hospital induced delirium. - ABX for continued treatment of pneumonia as she continues to have a productive cough - check ABG - lactic 2.0, check a procalcitonin, and blood cultures obtained on 07/29 (3) Hypotension: Code(s): I95.9 - Hypotension, unspecified Status: Acute Assessment and Plan: Patient was recently admitted to [facility] for vascular evaluation. At that time she was treated for pneumonia. No evidence of continue pneumonia on imaging, however continues to have a productive cough and she has been significantly hypotensive. Antibiotics continued at this time, started on Zosyn and vancomycin. During her admission at [facility] she was discharged home on it midodrine and underwent a cardiac evaluation. She had an echo completed on 07/23 which showed an EF of 50-55%, see summary of test below in CHF. Hemoglobin 8.7 upon admission, at her baseline. Unclear if hypotension secondary to septic shock versus other etiology, no clear indication at this time via her workup. Will treat as septic shock, started on albumin, and nephrology consulted for further fluid balance via dialysis. Currently requiring norepinephrine gtt to maintain map greater than 65. Admitted to the ICU for close hemodynamic monitoring and special education tutor consulted. (4) ESRD (end stage renal disease): Code(s): N18.6 - End stage renal disease Status: Chronic Assessment and Plan: History of HD home on dialysis Mondays, Wednesdays, Fridays. Unable to receive treatment today due to acute hypotension. On midodrine, appears to have been given dose this morning prior to dialysis. Now requiring norepinephrine to maintain blood pressure. Nephrology has been consulted. Her reviewed lab work from the ED workup, no significant electrolyte derangements. - monitor electrolytes - nephrology consulted - appears volume overloaded on exam and on imaging, however is hypotensive making the ability to receive dialysis difficult will - monitor I&Os (5) CHF (congestive heart failure): Qualifiers: Heart failure type: unspecified Heart failure chronicity: acute on chronic Qualified Code(s): I50.9 - Heart failure, unspecified Code(s): I50.9 - Heart failure, unspecified Status: Acute Assessment and Plan: Echo done at [facility] on 07/23/2025. Summary showed that the left ventricle is normal in size with low to normal systolic function, estimated EF 50-55%, moderate LVH, RV is enlarged with low normal systolic function, of moderate to severe aortic stenosis, [id number] mitral and pulmonic regurgitation, moderate tricuspid regurgitation, moderate pulmonary hypertension, mildly dilated ascending aorta. Currently volume overloaded, however unable to receive dialysis treatment due to acute hypotension. Per daughter, still makes minimal urine. Currently trying to optimize with albumin. (6) DM type 2 (diabetes mellitus, type 2): Onset Date: ~2018 Qualifiers: Diabetes mellitus usp insulin use: without usp use Diabetes mellitus complication status: without complication Qualified Code(s): E11.9 - Type 2 diabetes mellitus without complications Code(s): E11.9 - Type 2 diabetes mellitus without complications Status: Chronic Assessment and Plan: - hypoglycemia protocol - POC blood glucose Q6H while NPO - home medication: continue Lantus 15 units q.a.m., hold home sliding scale. - correct regimen ordered - high dose Q6H, based off BMI - A1C 6.4% in 2021, update (7) Anemia: Qualifiers: Anemia type: due to chronic kidney disease Chronic kidney disease stage: on chronic dialysis Qualified Code(s): N18.6 - End stage renal disease; D63.1 - Anemia in chronic kidney disease; Z99.2 - Dependence on renal dialysis Code(s): D64.9 - Anemia, unspecified Status: Chronic Assessment and Plan: - Hgb 8.7 upon admission, at baseline - Hx of ESRD - transfuse if <7 - monitor (8) Atrial fibrillation: Qualifiers: Atrial fibrillation type: unspecified Qualified Code(s): I48.91 - Unspecified atrial fibrillation Code(s): I48.91 - Unspecified atrial fibrillation Status: Acute Assessment and Plan: - continue Eliquis Plan Diet: NPO GI Prophylaxis: PPI DVT Prophylaxis: Eliquis IV fluids: none, needs diuresing Lines/Tubes: peripheral IV, R femoral central line Code Status: full code, confirmed with daughter on 07/29 Quality VTE Prophylaxis VTE prophylaxis: pharmacologic ordered Critical Care Time: I personally spent 90 minutes (overall) of direct patient care including (but not limited to) the physical examination, decision-making, bedside evaluation, review of medical records, review of labs and imaging, discussion with nursing staff and other providers for collaborative, critical care management of this patient. Additionally spent approx 45 minutes at the bedside with daughter discussing plan of care and current findings. Hospitalist MIPS Advance Care Plan I have confirmed that the patient's Advanced Care Plan is present, code status is documented, or surrogate decision maker is listed in patient medical record.: Yes Medication Reconciliation I have utilized all available resources to obtain, update and review the patients current medications (includes all prescriptions, OTC, herbals, cannabis, and nutritional supplements).: Yes
[2025-07-29 17:54] LABS: MRSA (PCR) DETECTED (NOT DETECTE)
--- NOTE | 2025-07-29 17:56 | ADMGEN ---
This patient, Maria R Barrientos, was admitted to Intensive Care Unit-9. Patient/family oriented to hospital policies and general routines including ID bracelet, bed and alarms, visiting hours, pain management, procedures, bathroom and other care routines, personal items, smoking policy, room service/diet, and visiting hours. Information on how to activate the Rapid Response Team has been discussed. Patient/Family are encouraged to report perceived risks to care and to ask questions if they do not understand what they are told or what they should do.
[2025-07-29] MEDS: ALBUMIN HUMAN 25% 25 GM/100 ML 100 ML IVPB ×2 (18:33→23:59)
[2025-07-29] MEDS: MUPIROCIN 2% OINT 22 GM TUBE 1 APPLIC EACH NARE (20:27)
[2025-07-29] MEDS: CENTRAL LINE FLUSH 10 ML IV PUSH (20:27)
[2025-07-29 20:44] LABS: Add Urine Microscopic? YES; Appearance Urine Turbid (Clear); Glucose Urine UA Negative (Negative); Leukocyte Esterase Ur 3+ LEU/UL (Negative); Need Manual Microscopic Reviewed; Nitrate Urine Negative (Negative); Non Pathogenic Casts >20; Specific Grav Ur 1.022 (1.001-1.035)
[2025-07-29 21:41] LABS: Procalcitonin 0.5 ng/mL
[2025-07-30] VITALS (51 sets, daily range): BP systolic 78–139; BP diastolic 51–83; PULSE 77–131; RESP 15–28; TEMP 36.5–37.1; O2SAT 90–100
[2025-07-30 03:29] LABS: Hematocrit 26.7 % (37.0-47.0); Hemoglobin 7.7 g/dL (12.0-15.0); Immature Granulocyte Percent A 0.9 % (0-0.5); Lymphocytes Absolute Auto 0.74 K/mm3 (0.9-3.2); Mean Corpuscular HGB Conc 28.8 g/dl (32-36); Mean Corpuscular Hemoglobin 29.7 pg (26-34); Mean Corpuscular Volume 103.1 fl (80-100); Nucleated Red Blood Cells Absolute Auto 0.000 K/mm3 (0.0-0.012); Nucleated Red Blood Cells Perc 0.0 % (0.0-0.2); Platelet Count Result 210 k/mm3 (150-375); Red Blood Count 2.59 M/mm3 (4.2-5.4); White Blood Count 6.9 K/mm3 (4.5-10.0)
[2025-07-30 03:43] LABS: Alanine Aminotransferase 34 U/L (6-35); Albumin Level 3.7 g/dL (3.5-5.1); Alkaline Phosphatase 144 U/L (38-126); Anion Gap 14 mmol/L (4-12); Aspartate Amino Transferase 22 U/L (14-36); Bilirubin,Total 0.7 mg/dL (0.2-1.3); Blood Urea Nitrogen 56 mg/dL (7-17); Calcium 9.8 mg/dL (8.4-10.2); Carbon Dioxide 24 mmol/L (22-30); Chloride 100 mmol/L (98-107); Estimated CRCL calculation 10 ml/min; Estimated Glomerular Filt Rate 7; Glucose 138 mg/dL (65-110); Magnesium 1.9 mg/dL (1.6-2.3); Potassium 5.2 mmol/L (3.4-5.0); Sodium 138 mmol/L (137-145); Total Protein 6.4 g/dL (6.3-8.2)
[2025-07-30 03:51] LABS: Hypochromasia 1+
[2025-07-30 03:52] LABS: Ovalocytes Occasional; Schistocytes None Seen
[2025-07-30] MEDS: ALBUMIN HUMAN 25% 25 GM/100 ML 100 ML IVPB ×2 (05:31→13:00)
[2025-07-30] MEDS: CENTRAL LINE FLUSH 10 ML IV PUSH ×3 (05:32→20:06)
[2025-07-30] MEDS: PANTOPRAZOLE SODIUM IV 40 MG VIAL IV PUSH (08:08)
[2025-07-30] MEDS: PIPERACILLIN/TAZOBACTAM SOD 2.25 GM in SODIUM CHLORIDE 0.9% IV 50 ML 100 ML IVPB ×3 (08:09→20:03)
[2025-07-30] MEDS: INSULIN HUMAN REGULAR (*BKC) 100 UNITS/ML 10 UNITS IV PUSH (08:09)
[2025-07-30] MEDS: MUPIROCIN 2% OINT 22 GM TUBE 1 APPLIC EACH NARE ×2 (08:09→20:03)
[2025-07-30] MEDS: DEXTROSE 50% 25 GM/50 ML SYRINGE IV PUSH (08:10)
[2025-07-30] MEDS: APIXABAN 5 MG TABLET PO ×2 (08:10→17:22)
[2025-07-30] MEDS: ALBUMIN HUMAN 25% 12.5 GM/50ML 50 ML IVPB (09:12)
--- NOTE | 2025-07-30 09:38 | PM.CNNEP ---
Assessment and Plan Assessment and plan (1) ESRD (end stage renal disease): Code(s): N18.6 - End stage renal disease Status: Chronic Assessment and Plan: HD today continue Tue/Tue/Tuesday dialysis schedule while hospitalized follow electrolytes, volume status, and clearance (2) Hypotension: Code(s): I95.9 - Hypotension, unspecified Status: Acute Assessment and Plan: acute on chronic baseline systolic BP runs in the 90s for the last month recently started on midodrine therapy from recent [facility] admission early sepsis? follow culture data on vasopressor therapy (3) AMS (altered mental status): Qualifiers: Altered mental status type: transient alteration of awareness Qualified Code(s): R40.4 - Transient alteration of awareness Code(s): R41.82 - Altered mental status, unspecified Status: Acute Assessment and Plan: despite underlying dementia, usually alert and oriented x [address] negative due to hypotension versus early sepsis(?) follow trend of mentation with current interventions (4) Acute hypoxic respiratory failure: Code(s): J96.01 - Acute respiratory failure with hypoxia Status: Acute Assessment and Plan: as noted since admission presumably due to volume overload (CHF + pulmonary edema) and recent pneumonia admission imaging noted fluid removal challenging in the context of hypotension (presumably a problem during recent hospitalization at [facility] as well) follow respiratory status (5) Urinary tract infection: Qualifiers: Hematuria presence: without hematuria Urinary tract infection type: acute cystitis Qualified Code(s): N30.00 - Acute cystitis without hematuria Code(s): N39.0 - Urinary tract infection, site not specified Status: Acute Assessment and Plan: admission UA suggestive follow culture data on antibiotics (6) Volume overload: Code(s): E87.70 - Fluid overload, unspecified Status: Acute Assessment and Plan: as suggested by evidence to date: imaging with CHF findings and pulmonary edema 6 - 7kg above dry weight per outpatient dialysis clinic when seen on 07/29 aggressive fluid removal as tolerated by hemodynamics may need to consider daily dialysis/ultrafiltration (7) Anemia: Qualifiers: Anemia type: due to chronic kidney disease Chronic kidney disease stage: on chronic dialysis Qualified Code(s): N18.6 - End stage renal disease; D63.1 - Anemia in chronic kidney disease; Z99.2 - Dependence on renal dialysis Code(s): D64.9 - Anemia, unspecified Status: Chronic Assessment and Plan: due to ESRD and acute illness follow trend of H/H Epogen with HD (8) DM type 2 (diabetes mellitus, type 2): Onset Date: ~2018 Qualifiers: Diabetes mellitus complication status: without complication Diabetes mellitus penitentiary insulin use: without longitudinal float operator use Qualified Code(s): E11.9 - Type 2 diabetes mellitus without complications Code(s): E11.9 - Type 2 diabetes mellitus without complications Status: Chronic Assessment and Plan: follow accu-cheks glycemic control per hospitalist I will continue to follow the patient with you while she remains hospitalized and make further recommendations as deemed necessary. Thank you for allowing me to participate in the care of this patient. History of Present Illness Reason for Consult Consult date: 07/30/25 Reason for consult: end stage renal disease Chief Complaint Chief complaint: Sepsis History of Present Illness Narrative: Most of the information I have obtained is from review the electronic medical record as well as discussion with the physician / nurses involved in the patient's care, the ER physician yesterday, and her outpatient dialysis clinic/ unit as is difficult to get a full and complete history from the patient due to her altered mental status. altered mental status and hypotension. The patient is a 80-year-old female with an extensive past medical history as outlined below who presented to [facility] Emergency Room from her outpatient dialysis clinic due to persistent hypotension in association with altered mental status.The patient presented for her regular scheduled dialysis treatment yesterday when it was noted that her blood pressure was in the 70 systolic. Furthermore, this was complicated of 5 the fact that the patient was up by almost 6 -7 kg above her dry weight necessitating fluid removal with her dialysis treatment. Prior to the initiation of dialysis, she was given a 250 normal saline bolus but this did not really improve her blood pressure so she was given another 250 cc bolus but this also did not improve her systolic BP. the dialysis nursing staff also noted the patient was a bit more confused and altered than baseline (she does have underlying dementia) as well. Given these clinical symptoms/presentation, EMS was called and the patient was subsequently transferred to the emergency room for further evaluation. By the time of her arrival to the emergency room, the patient's blood pressure had improved in the 90 systolic. Her mentation was still altered as she was alert oriented x1 and usually, in spite of her dementia, she is usually alert and oriented x 3. While she was in the ER, her blood pressure apparently dropped again as she received another 500 cc bolus as well as IV albumin but her blood pressure remains low. A central line was subsequently placed and she was initially on vasopressor therapy. Routine blood work was done which demonstrated white blood cell count of 7.2, hemoglobin 8.7, hematocrit 30.2, platelet count of 258, sodium 137, potassium 4.9, bicarb 23, BUN 56, creatinine 5.37, glucose 223, calcium 9.5, lactic acid 2.0, normal LFTs aside from a mildly elevated ALT and alkaline phosphatase, albumin 3.2, and an INR of 1.8. Her chest x-rays demonstrated congestive heart failure and superimposed probable pneumonia. CT scan of the head demonstrated no acute intracranial abnormality. Due to concerns of possible sepsis, appropriate cultures were obtained and she was initiated on antibiotics and subsequently admitted to the intensive care unit for further evaluation therapy. It should be noted the patient was just recently discharged from [facility] in [facility] were apparently she was treated for pneumonia. Records have been requested with regard to this acute hospitalization but apparently she clinically improved with IV antibiotic therapy and all culture data was negative. She was initiated on midodrine therapy due to her issues with hypotension, particularly with dialysis, by report, by the time of discharge, she was hemodynamically stable with systolic BP is in the 100 range but she was somewhat the condition by the hospitalization in of itself. Renal consultation was requested due to her end-stage renal disease. The patient is quite familiar to me as I take care of her outpatient dialysis needs. She normally dialyzes on a Tuesday, Tuesday, Tuesday dialysis schedule at [facility] under my care. From a dialysis perspective, she had been doing reasonably well although there are times when fluid removal is somewhat challenging due to her soft blood pressures at times. However, given her underlying cardiomyopathy and her propensity for fluid retention, ongoing attempts for fluid removal during dialysis treatments are always attempted in spite of her low blood pressure and sometimes she tolerates these interventions reasonably well. During her recent hospitalization at [facility] in [place], she was initiated on midodrine therapy on dialysis days due to ongoing issues with hypotension during her dialysis treatments. However, it would appear fluid removal during that recent hospital stay may still have been challenging as she was noted to be almost 6 - 7kg above her dry weight on her presentation to her outpatient dialysis unit yesterday. Currently, at the time my evaluation, she remains somewhat confused but did appear to recognize but then drifted of back to sleep. She was receiving dialysis at the time of my visit (seen on HD at 9:30am) and appears to be tolerating it relatively well. Review of Systems Review of Systems: As per HPI. [facility] Past Medical History Medical History (Updated 07/30/25 @ 12:01 by Cristofer Schwarz MD) Anxiety Frequent UTI Chronic indwelling Braswell catheter BMI 38.0-38.9,adult Chronic back pain Seasonal allergies Hypercalcemia Cataract of right eye CHELSEA on CPAP Intolerant to CPAP Narcolepsy Poorly documented CHF (congestive heart failure) Echocardiogram 2021 from [facility]: Left ventricular size mildly enlarged left ventricular systolic function moderately depressed with EF of 35-40%, mild concentric left ventricular hypertrophy, diastolic dysfunction indeterminate due to AFib, moderate global hypokinesis, moderate right ventricular enlargement with normal right ventricular systolic function, severe left atrial volume overload greater than 48 mL, moderate right atrial enlargement, mildly dilated aortic root mild aortic regurgitation Dementia Depression Knee pain Thoracic aortic aneurysm Vitamin B12 deficiency Constipation History of orthostatic hypotension Left ventricular outflow obstruction echocardiogram May 2020 Stress incontinence in female Osteoporosis DEXA scan 08/14/2020 Hearing loss of both ears Vitamin D deficiency Carotid bruit less than 50% stenosis of right internal carotid artery a on Doppler 07/01/2020 Kidney stones of the left kidney with multiple lithotripsies Cancer of right breast status post radiation and chemotherapy Thyroid nodule (~2014) Overactive bladder A-fib Hyperlipidemia 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 DM type 2 (diabetes mellitus, type 2) (~2018) Benign essential hypertension Surgical History Surgical History Status post right cataract extraction Status post cataract extraction and insertion of intraocular lens of right eye Status post right breast lumpectomy Family History Family History Sibling Diabetes mellitus Father Diabetes mellitus CHF (congestive heart failure) Kidney failure Mother Cervical cancer Ovarian cancer Sibling Diabetes mellitus Brain bleed Hypertension Cerebrovascular accident Social History Social History Social History: She resides at [facility]. She is . She is a lifelong nonsmoker and does not drink alcohol or use illicit substances. She is retired from the [employer]. Code status: Full code Surrogate decision maker: Daughter Smoking status: Never smoker Second hand tobacco smoke exposure: No Alcohol intake: never Substance use: never Substance use type: does not use Do You Feel Safe in your Home?: Yes Lack of Transportation: No Lack of Food: Never True Current Housing: I Have Housing Concerned About Future Housing: No Difficulty Paying Gas/Electric Bills: No Difficulty Paying for Meds: No Currently Unemployed: No Education: High School Diploma/GED Difficulty w/ Childcare or Family Care: No Living arrangements: prison Occupation/Education: retired 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 Gender identity (if verbalized by the patient): Female Sexual Orientation (if Verbalized by the Patient): Straight or Heterosexual Spiritual care concerns: No Agree to blood products: Yes Meds Home Medications and Allergies Home Medications ?Medication ?Instructions ?Recorded ?Confirmed ?Type cyanocobalamin (vitamin B-12) 1,000 mcg PO DAILY 08/18/20 07/29/25 History 1,000 mcg tablet ferrous sulfate 324 mg (65 mg 325 mg PO EVERY OTHER DAY 01/11/22 07/29/25 History iron) tablet,delayed release cranberry 500 mg capsule 500 mg PO TID 01/16/24 07/29/25 History nitroglycerin 0.4 mg sublingual 0.4 mg sublingual Q5M PRN Chest 02/03/24 07/29/25 Rx tablet Pain #25 tabs insulin aspart U-100 100 unit/mL See Rx Instructions subcut 03/21/24 07/29/25 Rx subcutaneous solution (Novolog .COMPLEX #10 mL U-100 Insulin aspart) fluconazole 150 mg tablet 150 mg PO WEEKLY 04/24/24 07/29/25 History blood-glucose sensor (FreeStyle #1 ea 05/29/24 07/29/25 Rx Robbi 3 Sensor device) ondansetron 4 mg disintegrating 4 mg PO Q6H PRN nausea and vomiting 09/04/24 07/29/25 History tablet apixaban 5 mg tablet (Eliquis) 5 mg PO BID #180 tabs 11/07/24 07/29/25 Rx dextromethorphan-guaifenesin ER 60 1 tablet PO Q12H PRN congestion 11/21/24 07/29/25 History mg-1,200 mg tab,extend release,12hr (Mucinex DM) pen needle, diabetic 32 gauge x #100 ea 11/30/24 07/29/25 Rx /32 (BD Lindsay 2nd Gen Pen Needle) cetirizine 10 mg capsule (All Day 10 mg PO DAILY PRN allergy 01/21/25 07/29/25 Rx Allergy (cetirizine)) symptoms #90 caps simethicone 125 mg capsule (Gas-X 250 mg (2 x 125 mg) PO DAILY PRN 02/18/25 07/29/25 Rx Extra Strength) abdominal distention #20 caps buspirone 5 mg tablet See Rx Instructions .Route 02/25/25 07/29/25 Rx .COMPLEX #270 tabs acetaminophen 500 mg capsule 500 mg PO Q6H PRN cHONIC BACK PAIN 02/26/25 07/29/25 History docusate sodium 100 mg capsule 200 mg PO BID 02/26/25 07/29/25 History Thigh High SANDOVAL hose #3 pkgs 04/30/25 07/29/25 Rx aripiprazole 2 mg tablet See Rx Instructions .Route 04/30/25 07/29/25 Rx .COMPLEX #135 tabs rosuvastatin 10 mg tablet 10 mg PO DAILY #90 tabs 04/30/25 07/29/25 Rx sertraline 50 mg tablet 50 mg PO DAILY #90 tabs 04/30/25 07/29/25 Rx nystatin 100,000 unit/gram topical 1 applic topical BID #60 grams 06/04/25 07/29/25 Rx powder methylphenidate HCl 10 mg tablet 10 mg PO BIDWMEAL #60 tabs 07/04/25 07/29/25 Rx acetaminophen 650 mg 650 mg PO Q4H PRN GENERAL 07/06/25 07/29/25 History tablet,extended release DISCOMFORT metoprolol tartrate 25 mg tablet 25 mg PO BID 07/06/25 07/29/25 History tenapanor 30 mg tablet (Xphozah) 30 mg PO QPM 07/06/25 07/29/25 History tizanidine 2 mg capsule (Zanaflex) 2 mg PO Q8H PRN muscle spasticity 07/06/25 07/29/25 History lidocaine-prilocaine 2.5 %-2.5 % 60 g topical WITH DIALYSIS PRN for 07/11/25 07/29/25 Rx topical cream dialysis #60 grams tramadol 50 mg tablet 50 mg PO QID PRN pain #50 tabs 07/17/25 07/29/25 Rx cefdinir 300 mg capsule 300 mg PO DAILY 07/29/25 07/29/25 History doxycycline hyclate 100 mg capsule 100 mg PO Q12H 07/29/25 07/29/25 History furosemide 40 mg tablet (Lasix) 40 mg PO BID 07/29/25 07/29/25 History insulin glargine 100 unit/mL (3 15 unit (0.15 mL) subcut QAM #15 mL 07/29/25 07/29/25 Rx mL) subcutaneous pen (Lantus Solostar U-100 Insulin) ipratropium 0.5 mg-albuterol 3 mg 3 ml inhalation Q4H PRN Shortness 07/29/25 07/29/25 History (2.5 mg base)/3 mL nebulization of Breath. soln midodrine 10 mg tablet 10 mg PO BID 07/29/25 07/29/25 History Allergies Allergy/AdvReac Type Severity Reaction Status Date / Time Sulfa (Sulfonamide Allergy Severe Rash Verified 07/29/25 17:57 Antibiotics) bupropion (From Wellbutrin) Allergy Intermediate Unknown Verified 07/29/25 17:57 Vital Signs Vital Signs Temp Pulse Resp BP Pulse Ox O2 Del Method O2 Flow Rate 07/30/25 09:30 114 H 101/74 07/30/25 09:25 95 87/66 L 07/30/25 09:15 100 87/66 L 07/30/25 09:05 109 H 89/64 L 07/30/25 09:00 104 H 20 94/64 L 100 07/30/25 08:45 2 07/30/25 08:45 97.7 F 101 H 18 93/58 L 100 07/30/25 08:00 104 H 96/64 L 07/30/25 08:00 98.8 F 118 H 17 96/64 L 100 07/30/25 08:00 104 H 07/30/25 08:00 103 H 16 100 Nasal Cannula 2 07/30/25 07:00 104 H 20 101/64 99 07/30/25 06:00 97.7 F 102 H 16 102/60 100 07/30/25 06:00 94 07/30/25 06:00 106 H 102/60 07/30/25 05:25 107 H 102/63 07/30/25 05:02 100 Nasal Cannula 2 07/30/25 05:00 98.7 F 111 H 16 90/62 L 100 07/30/25 04:00 111 H 16 111/61 100 07/30/25 04:00 111 H 07/30/25 04:00 102 H 18 100 Nasal Cannula 2 07/30/25 04:00 102 H 111/61 07/30/25 03:15 115 H 16 112/64 100 07/30/25 03:00 115 H 18 117/68 100 07/30/25 03:00 117 H 117/68 07/30/25 02:00 117 H 19 117/69 100 07/30/25 02:00 117 H 07/30/25 02:00 115 H 117/69 07/30/25 01:00 107 H 16 105/66 100 07/30/25 00:00 97.8 F 122 H 17 115/67 100 07/30/25 00:00 108 H 100 Nasal Cannula 2 07/30/25 00:00 108 H 115/67 07/29/25 23:00 111 H 16 104/57 L 100 07/29/25 22:26 104 H 100/64 07/29/25 22:00 107 H 07/29/25 22:00 107 H 14 113/61 100 07/29/25 21:15 102 H 17 97/64 L 100 07/29/25 21:02 99 77/59 L 07/29/25 21:00 99 18 77/59 L 100 07/29/25 20:45 110 H 16 88/64 L 100 07/29/25 20:36 106 H 101/63 07/29/25 20:00 99 100 Nasal Cannula 2 07/29/25 20:00 107 H 110/66 07/29/25 20:00 97.6 F 114 H 21 H 110/66 98 07/29/25 19:00 97.8 F 107 H 15 93/64 L 94 07/29/25 18:45 122 H 109/63 07/29/25 18:30 124 H 122/82 07/29/25 18:24 117 H 16 122/82 100 07/29/25 18:00 129 H 07/29/25 17:20 110 H 18 104/66 95 07/29/25 16:56 131 H 17 114/71 95 07/29/25 16:51 109 H 15 123/86 95 07/29/25 16:30 108 H 18 119/88 96 07/29/25 16:16 108 H 16 116/83 95 07/29/25 16:04 107 H 14 97/80 L 95 07/29/25 15:55 95 18 97/86 L 97 07/29/25 15:47 95 83/65 L 07/29/25 15:46 85 18 07/29/25 15:45 89 18 83/65 L 97 07/29/25 15:31 98 29 H 98/61 L 95 07/29/25 15:30 95 Nasal Cannula 2 07/29/25 14:30 100 20 87/52 L 96 07/29/25 14:02 87 17 73/48 L 94 07/29/25 13:00 88 20 71/50 L 95 07/29/25 12:45 88 20 84/51 L 93 07/29/25 12:30 18 94 07/29/25 12:22 99 19 76/59 L 97 07/29/25 12:02 102 H 22 H 91/32 L 94 Room Air Exam Narrative: GENERAL APPEARANCE: somewhat ill appearing. large, and elderly female in no acute distress HEENT: normocephalic, atraumatic, normal conjunctiva and sclera, nares patient NECK: no lymphadenopathy, thyromegaly, or JVD MOUTH: somewhat dry mucus membranels CARDIOVASCULAR: IRRR, normal S1 and S2, no rub RESPIRATORY: bibasilar crackles ABDOMEN: soft, nontender, nondistended, positive bowel sounds present EXTREMITIES: no evidence of cyanosis, clubbing, 2+ edema NEUROLOGICAL: alert and oriented x 1; sleepy/lethargic Results Lab Results 07/31/25 03:59 07/31/25 03:59 Lab results: Most recent lab results Calcium 9.8 mg/dL (8.4-10.2) 07/30/25 03:21 Phosphorus 7.6 mg/dL (2.5-4.5) H 07/30/25 03:21 Magnesium 1.9 mg/dL (1.6-2.3) 07/30/25 03:21
[2025-07-30] MEDS: EPOETIN ALFA-EPBX 10,000 UNITS/ML VIAL 10000 UNITS IV PUSH (10:52)
--- NOTE | 2025-07-30 13:15 | WPDCNINT ---
Assessment and Plan Assessment and plan (1) Acute metabolic encephalopathy: Code(s): G93.41 - Metabolic encephalopathy Status: Acute Assessment and Plan: Patient presented with altered mental status/encephalopathy which could be related to uremia, infection along with hypotension -discussed with technical services assistant, who stated that patient is almost 8 L positive since at dry weight -unsure if patient has been dialyzed adequately at [facility] as well as [facility] due to low blood pressures. She was also started on midodrine at [facility] which will restart here -post dialysis patient more awake -continue to monitor electrolytes and treat underlying cause -CT brain which did not show any acute intracranial abnormality (2) ESRD (end stage renal disease): Code(s): N18.6 - End stage renal disease Status: Chronic Assessment and Plan: End-stage renal disease on dialysis, Tuesday, Tuesday, Tuesday -07/30: Dialyzed with 2500 mL in fluid removal, she did require Levophed and albumin during dialysis. -will restart midodrine (3) Hypotension: Code(s): I95.9 - Hypotension, unspecified Status: Acute Assessment and Plan: Multifactorial, infection, 07/30: CT scan of the chest abdomen follows showed interstitial edema with small left pleural effusion. Abdomen and pelvis did not show any acute abnormality -records have been requested from [facility] -february after repeat an echocardiogram if it was not done at [facility] -continue Zosyn and vancomycin (07/29) -07/29: Blood cultures have been obtained and pending 02/29/2024: Echocardiogram Summary 1. Technically difficult study. 2. Left ventricular chamber dimension is normal. 3. Left ventricular systolic function is lower limits of normal, estimated at 50-55%. 4. There is mildly increased left ventricular wall thickness. 5. Right ventricular systolic function is normal. 6. Left atrial chamber dimension is severely enlarged. 7. Right atrial chamber dimension is mildly enlarged. 8. There is mild aortic valve regurgitation. 9. There is mild mitral valve regurgitation. 10. There is mild to moderate tricuspid valve regurgitation. 11. Pericardial effusion is present. Pericardial effusion is trivial in size anteriorly, and is small in size posteriorly. 12. Left pleural effusion present. (4) CHF (congestive heart failure): Qualifiers: Heart failure chronicity: acute on chronic Heart failure type: unspecified Qualified Code(s): I50.9 - Heart failure, unspecified Code(s): I50.9 - Heart failure, unspecified Status: Acute Assessment and Plan: Pulmonary edema on chest x-ray, could be related to CHF -may repeat an echocardiogram (5) DM type 2 (diabetes mellitus, type 2): Onset Date: ~2018 Qualifiers: Diabetes mellitus senior care insulin use: without senior care use Diabetes mellitus complication status: without complication Qualified Code(s): E11.9 - Type 2 diabetes mellitus without complications Code(s): E11.9 - Type 2 diabetes mellitus without complications Status: Chronic Assessment and Plan: Continue Accu-Cheks and sliding scale insulin -hold Lantus since patient is not eating -blood sugars have been stable (6) Atrial fibrillation: Qualifiers: Atrial fibrillation type: unspecified Qualified Code(s): I48.91 - Unspecified atrial fibrillation Code(s): I48.91 - Unspecified atrial fibrillation Status: Acute Assessment and Plan: History of atrial fibrillation, continue Eliquis Plan DVT prophylaxis: Eliquis Stress ulcer prophylaxis: Protonix Nutrition: NPO for now Code Status: Full code Critical Care Time Spent: 44 minutes Due to a high probability of clinically significant, life threatening deterioration, the patient required my highest level of preparedness to intervene emergently and I personally spent this critical care time directly and personally managing the patient. This critical care time included obtaining a history; examining the patient; pulse oximetry; ordering and review of studies; arranging urgent treatment with development of a management plan; evaluation of patient's response to treatment; frequent reassessment; and discussions with other providers. It was exclusive of separately billable procedures and treating other patients and teaching time. Please see Assessment and Plan section and the rest of the note for further information on patient assessment and treatment This dictation may have been done utilizing a voice recognition system. Attempts have been made to correct errors. However, there may be uncorrected grammatical, spelling, and recognitions errors present. Master Brewer Consult Note Consult date: 07/30/25 Reason for consult: Altered mental status hypertension HPI: Maria R Barrientos is a 80 year old female with significant past medical history of congestive heart failure, end stage renal disease on dialysis, narcolepsy, depression, hyperlipidemia, atrial fibrillation, diabetes, essential hypertension presented the ED on 07/29/2025 from [facility] with complains of altered mental status and hypotension. On the day of admission she was being dialyzed kidney to have systolic blood pressures in this upper 70s. Was given 500 mL IV fluid bolus by the dialysis staff despite which the blood pressures remained 76/42. EMS was called and patient was transferred to [place] ED. Off note, she was recently discharged from [address] on 07/28/2025 which she was admitted for pneumonia, sepsis, hypoxia hyperkalemia. On discharge patient was not confused but remained weak. In the ER there was no leukocytosis, hemoglobin was 8.7 which is at baseline. INR of 1.8, creatinine 5.37, blood sugars 223, lactic 2.0, albumin 3.2., chest x-ray shows CHF and superimposed probable pneumonia. Patient was transferred to the ICU for further management after being started on albumin, Zosyn and vancomycin. Patient seen and examined this morning in the ICU, is somnolent, but easily arousable, hard of hearing, has a history of dementia. Patient does follow simple commands, denies any chest pain, shortness are breath, abdominal pain at this time. Patient is off Levophed this morning but had to be restarted during dialysis. Patient is also confused and somnolent Review of Systems Review of Systems: All systems reviewed & are unremarkable except as noted in HPI and below PMFSH Past Medical History Medical History (Updated 07/30/25 @ 12:01 by Cristofer Schwarz MD) CHF (congestive heart failure) Echocardiogram 2021 from [facility]: Left ventricular size mildly enlarged left ventricular systolic function moderately depressed with EF of 35-40%, mild concentric left ventricular hypertrophy, diastolic dysfunction indeterminate due to AFib, moderate global hypokinesis, moderate right ventricular enlargement with normal right ventricular systolic function, severe left atrial volume overload greater than 48 mL, moderate right atrial enlargement, mildly dilated aortic root mild aortic regurgitation Chronic indwelling Braswell catheter Anxiety Frequent UTI BMI 38.0-38.9,adult Chronic back pain Seasonal allergies Hypercalcemia Cataract of right eye CHELSEA on CPAP Intolerant to CPAP Narcolepsy Poorly documented Dementia Depression Knee pain Thoracic aortic aneurysm Vitamin B12 deficiency Constipation History of orthostatic hypotension Left ventricular outflow obstruction echocardiogram May 2020 Stress incontinence in female Osteoporosis DEXA scan 08/14/2020 Hearing loss of both ears Vitamin D deficiency Carotid bruit less than 50% stenosis of right internal carotid artery a on Doppler 07/01/2020 Kidney stones of the left kidney with multiple lithotripsies Cancer of right breast status post radiation and chemotherapy Thyroid nodule (~2014) Overactive bladder A-fib Hyperlipidemia 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 DM type 2 (diabetes mellitus, type 2) (~2018) Benign essential hypertension Surgical History Surgical History Status post right cataract extraction Status post cataract extraction and insertion of intraocular lens of right eye Status post right breast lumpectomy Family History Family History Sibling Diabetes mellitus Father Diabetes mellitus CHF (congestive heart failure) Kidney failure Mother Cervical cancer Ovarian cancer Sibling Diabetes mellitus Brain bleed Hypertension Cerebrovascular accident Social History Social History Social History: She resides at [facility]. She is . She is a lifelong nonsmoker and does not drink alcohol or use illicit substances. She is retired from the [employer]. 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 Gender identity (if verbalized by the patient): Female Sexual Orientation (if Verbalized by the Patient): Straight or Heterosexual Spiritual care concerns: No Agree to blood products: Yes Meds Home Medications and Allergies Home Medications ?Medication ?Instructions ?Recorded ?Confirmed ?Type cyanocobalamin (vitamin B-12) 1,000 mcg PO DAILY 08/18/20 07/29/25 History 1,000 mcg tablet ferrous sulfate 324 mg (65 mg 325 mg PO EVERY OTHER DAY 01/11/22 07/29/25 History iron) tablet,delayed release cranberry 500 mg capsule 500 mg PO TID 01/16/24 07/29/25 History nitroglycerin 0.4 mg sublingual 0.4 mg sublingual Q5M PRN Chest 02/03/24 07/29/25 Rx tablet Pain #25 tabs insulin aspart U-100 100 unit/mL See Rx Instructions subcut 03/21/24 07/29/25 Rx subcutaneous solution (Novolog .COMPLEX #10 mL U-100 Insulin aspart) fluconazole 150 mg tablet 150 mg PO WEEKLY 04/24/24 07/29/25 History blood-glucose sensor (FreeStyle #1 ea 05/29/24 07/29/25 Rx Robbi 3 Sensor device) ondansetron 4 mg disintegrating 4 mg PO Q6H PRN nausea and vomiting 09/04/24 07/29/25 History tablet apixaban 5 mg tablet (Eliquis) 5 mg PO BID #180 tabs 11/07/24 07/29/25 Rx dextromethorphan-guaifenesin ER 60 1 tablet PO Q12H PRN congestion 11/21/24 07/29/25 History mg-1,200 mg tab,extend release,12hr (Mucinex DM) pen needle, diabetic 32 gauge x #100 ea 11/30/24 07/29/25 Rx 5/32 (BD Lindsay 2nd Gen Pen Needle) cetirizine 10 mg capsule (All Day 10 mg PO DAILY PRN allergy 01/21/25 07/29/25 Rx Allergy (cetirizine)) symptoms #90 caps simethicone 125 mg capsule (Gas-X 250 mg (2 x 125 mg) PO DAILY PRN 02/18/25 07/29/25 Rx Extra Strength) abdominal distention #20 caps buspirone 5 mg tablet See Rx Instructions .Route 02/25/25 07/29/25 Rx .COMPLEX #270 tabs acetaminophen 500 mg capsule 500 mg PO Q6H PRN cHONIC BACK PAIN 02/26/25 07/29/25 History docusate sodium 100 mg capsule 200 mg PO BID 02/26/25 07/29/25 History Thigh High SANDOVAL hose #3 pkgs 04/30/25 07/29/25 Rx aripiprazole 2 mg tablet See Rx Instructions .Route 04/30/25 07/29/25 Rx .COMPLEX #135 tabs rosuvastatin 10 mg tablet 10 mg PO DAILY #90 tabs 04/30/25 07/29/25 Rx sertraline 50 mg tablet 50 mg PO DAILY #90 tabs 04/30/25 07/29/25 Rx nystatin 100,000 unit/gram topical 1 applic topical BID #60 grams 06/04/25 07/29/25 Rx powder methylphenidate HCl 10 mg tablet 10 mg PO BIDWMEAL #60 tabs 07/04/25 07/29/25 Rx acetaminophen 650 mg 650 mg PO Q4H PRN GENERAL 07/06/25 07/29/25 History tablet,extended release DISCOMFORT metoprolol tartrate 25 mg tablet 25 mg PO BID 07/06/25 07/29/25 History tenapanor 30 mg tablet (Xphozah) 30 mg PO QPM 07/06/25 07/29/25 History tizanidine 2 mg capsule (Zanaflex) 2 mg PO Q8H PRN muscle spasticity 07/06/25 07/29/25 History lidocaine-prilocaine 2.5 %-2.5 % 60 g topical WITH DIALYSIS PRN for 07/11/25 07/29/25 Rx topical cream dialysis #60 grams tramadol 50 mg tablet 50 mg PO QID PRN pain #50 tabs 07/17/25 07/29/25 Rx cefdinir 300 mg capsule 300 mg PO DAILY 07/29/25 07/29/25 History doxycycline hyclate 100 mg capsule 100 mg PO Q12H 07/29/25 07/29/25 History furosemide 40 mg tablet (Lasix) 40 mg PO BID 07/29/25 07/29/25 History insulin glargine 100 unit/mL (3 15 unit (0.15 mL) subcut QAM #15 mL 07/29/25 07/29/25 Rx mL) subcutaneous pen (Lantus Solostar U-100 Insulin) ipratropium 0.5 mg-albuterol 3 mg 3 ml inhalation Q4H PRN Shortness 07/29/25 07/29/25 History (2.5 mg base)/3 mL nebulization of Breath. soln midodrine 10 mg tablet 10 mg PO BID 07/29/25 07/29/25 History Allergies Allergy/AdvReac Type Severity Reaction Status Date / Time Sulfa (Sulfonamide Allergy Severe Rash Verified 07/29/25 17:57 Antibiotics) bupropion (From Wellbutrin) Allergy Intermediate Unknown Verified 07/29/25 17:57 Vital Signs Vital Signs - 24 hr 07/29/25 14:02 07/29/25 14:30 07/29/25 15:30 Temperature Pulse Rate 87 100 Respiratory Rate 17 20 Blood Pressure 73/48 L 87/52 L Pulse Oximetry 94 96 95 Oxygen Delivery Nasal Cannula Oxygen Flow Rate 2 Fraction of Inspired Oxygen 07/29/25 15:31 07/29/25 15:45 07/29/25 15:46 Temperature Pulse Rate 98 89 85 Respiratory Rate 29 H 18 18 Blood Pressure 98/61 L 83/65 L Pulse Oximetry 95 97 Oxygen Delivery Oxygen Flow Rate Fraction of Inspired Oxygen 07/29/25 15:47 07/29/25 15:55 07/29/25 16:04 Temperature Pulse Rate 95 95 107 H Respiratory Rate 18 14 Blood Pressure 83/65 L 97/86 L 97/80 L Pulse Oximetry 97 95 Oxygen Delivery Oxygen Flow Rate Fraction of Inspired Oxygen 07/29/25 16:16 07/29/25 16:30 07/29/25 16:51 Temperature Pulse Rate 108 H 108 H 109 H Respiratory Rate 16 18 15 Blood Pressure 116/83 119/88 123/86 Pulse Oximetry 95 96 95 Oxygen Delivery Oxygen Flow Rate Fraction of Inspired Oxygen 07/29/25 16:56 07/29/25 17:20 07/29/25 18:00 Temperature Pulse Rate 131 H 110 H 129 H Respiratory Rate 17 18 Blood Pressure 114/71 104/66 Pulse Oximetry 95 95 Oxygen Delivery Oxygen Flow Rate Fraction of Inspired Oxygen 07/29/25 18:24 07/29/25 18:30 07/29/25 18:45 Temperature Pulse Rate 117 H 124 H 122 H Respiratory Rate 16 Blood Pressure 122/82 122/82 109/63 Pulse Oximetry 100 Oxygen Delivery Oxygen Flow Rate Fraction of Inspired Oxygen 07/29/25 19:00 07/29/25 20:00 07/29/25 20:00 Temperature 97.8 F 97.6 F Pulse Rate 107 H 114 H 107 H Respiratory Rate 15 21 H Blood Pressure 93/64 L 110/66 110/66 Pulse Oximetry 94 98 Oxygen Delivery Oxygen Flow Rate Fraction of Inspired Oxygen 07/29/25 20:00 07/29/25 20:36 07/29/25 20:45 Temperature Pulse Rate 99 106 H 110 H Respiratory Rate 16 Blood Pressure 101/63 88/64 L Pulse Oximetry 100 100 Oxygen Delivery Nasal Cannula Oxygen Flow Rate 2 Fraction of Inspired Oxygen 07/29/25 21:00 07/29/25 21:02 07/29/25 21:15 Temperature Pulse Rate 99 99 102 H Respiratory Rate 18 17 Blood Pressure 77/59 L 77/59 L 97/64 L Pulse Oximetry 100 100 Oxygen Delivery Oxygen Flow Rate Fraction of Inspired Oxygen 07/29/25 22:00 07/29/25 22:00 07/29/25 22:26 Temperature Pulse Rate 107 H 107 H 104 H Respiratory Rate 14 Blood Pressure 113/61 100/64 Pulse Oximetry 100 Oxygen Delivery Oxygen Flow Rate Fraction of Inspired Oxygen 07/29/25 23:00 07/30/25 00:00 07/30/25 00:00 Temperature Pulse Rate 111 H 108 H 108 H Respiratory Rate 16 Blood Pressure 104/57 L 115/67 Pulse Oximetry 100 100 Oxygen Delivery Nasal Cannula Oxygen Flow Rate 2 Fraction of Inspired Oxygen 07/30/25 00:00 07/30/25 01:00 07/30/25 02:00 Temperature 97.8 F Pulse Rate 122 H 107 H 115 H Respiratory Rate 17 16 Blood Pressure 115/67 105/66 117/69 Pulse Oximetry 100 100 Oxygen Delivery Oxygen Flow Rate Fraction of Inspired Oxygen 07/30/25 02:00 07/30/25 02:00 07/30/25 03:00 Temperature Pulse Rate 117 H 117 H 117 H Respiratory Rate 19 Blood Pressure 117/69 117/68 Pulse Oximetry 100 Oxygen Delivery Oxygen Flow Rate Fraction of Inspired Oxygen 07/30/25 03:00 07/30/25 03:15 07/30/25 04:00 Temperature Pulse Rate 115 H 115 H 102 H Respiratory Rate 18 16 Blood Pressure 117/68 112/64 111/61 Pulse Oximetry 100 100 Oxygen Delivery Oxygen Flow Rate Fraction of Inspired Oxygen 07/30/25 04:00 07/30/25 04:00 07/30/25 04:00 Temperature Pulse Rate 102 H 111 H 111 H Respiratory Rate 18 16 Blood Pressure 111/61 Pulse Oximetry 100 100 Oxygen Delivery Nasal Cannula Oxygen Flow Rate 2 Fraction of Inspired Oxygen 07/30/25 05:00 07/30/25 05:02 07/30/25 05:25 Temperature 98.7 F Pulse Rate 111 H 107 H Respiratory Rate 16 Blood Pressure 90/62 L 102/63 Pulse Oximetry 100 100 Oxygen Delivery Nasal Cannula Oxygen Flow Rate 2 Fraction of Inspired Oxygen 07/30/25 06:00 07/30/25 06:00 07/30/25 06:00 Temperature 97.7 F Pulse Rate 106 H 94 102 H Respiratory Rate 16 Blood Pressure 102/60 102/60 Pulse Oximetry 100 Oxygen Delivery Oxygen Flow Rate Fraction of Inspired Oxygen 07/30/25 07:00 07/30/25 08:00 07/30/25 08:00 Temperature Pulse Rate 104 H 103 H 104 H Respiratory Rate 20 16 Blood Pressure 101/64 Pulse Oximetry 99 100 Oxygen Delivery Nasal Cannula Oxygen Flow Rate 2 Fraction of Inspired Oxygen 07/30/25 08:00 07/30/25 08:00 07/30/25 08:45 Temperature 98.8 F 97.7 F Pulse Rate 118 H 104 H 101 H Respiratory Rate 17 18 Blood Pressure 96/64 L 96/64 L 93/58 L Pulse Oximetry 100 100 Oxygen Delivery Oxygen Flow Rate Fraction of Inspired Oxygen 07/30/25 08:45 07/30/25 09:00 07/30/25 09:05 Temperature Pulse Rate 104 H 109 H Respiratory Rate 20 Blood Pressure 94/64 L 89/64 L Pulse Oximetry 100 Oxygen Delivery Oxygen Flow Rate 2 Fraction of Inspired Oxygen 100 07/30/25 09:15 07/30/25 09:25 07/30/25 09:30 Temperature Pulse Rate 100 95 114 H Respiratory Rate Blood Pressure 87/66 L 87/66 L 101/74 Pulse Oximetry Oxygen Delivery Oxygen Flow Rate Fraction of Inspired Oxygen 07/30/25 09:45 07/30/25 09:56 07/30/25 10:00 Temperature Pulse Rate 114 H 106 H Respiratory Rate Blood Pressure 120/69 134/68 Pulse Oximetry 100 Oxygen Delivery Nasal Cannula Oxygen Flow Rate 2 Fraction of Inspired Oxygen 07/30/25 10:00 07/30/25 10:00 07/30/25 10:00 Temperature Pulse Rate 120 H 122 H 122 H Respiratory Rate 16 Blood Pressure 134/68 125/79 Pulse Oximetry 100 Oxygen Delivery Oxygen Flow Rate Fraction of Inspired Oxygen 07/30/25 10:15 07/30/25 10:30 07/30/25 10:45 Temperature Pulse Rate 113 H 118 H 131 H Respiratory Rate Blood Pressure 124/68 125/79 124/72 Pulse Oximetry Oxygen Delivery Oxygen Flow Rate Fraction of Inspired Oxygen 07/30/25 11:00 07/30/25 11:00 07/30/25 11:15 Temperature Pulse Rate 113 H 112 H 125 H Respiratory Rate 18 Blood Pressure 118/79 118/79 118/61 Pulse Oximetry 100 Oxygen Delivery Oxygen Flow Rate Fraction of Inspired Oxygen 07/30/25 11:30 07/30/25 11:45 07/30/25 11:59 Temperature Pulse Rate 118 H 115 H 115 H Respiratory Rate Blood Pressure 126/62 125/80 125/80 Pulse Oximetry Oxygen Delivery Oxygen Flow Rate Fraction of Inspired Oxygen 07/30/25 12:00 07/30/25 12:00 07/30/25 12:00 Temperature Pulse Rate 124 H 111 H 117 H Respiratory Rate 19 Blood Pressure 123/62 Pulse Oximetry 100 Oxygen Delivery Nasal Cannula Oxygen Flow Rate 2 Fraction of Inspired Oxygen 07/30/25 12:00 07/30/25 12:15 07/30/25 12:30 Temperature 98.2 F Pulse Rate 117 H 115 H 110 H Respiratory Rate 18 Blood Pressure 123/62 117/67 115/64 Pulse Oximetry 100 Oxygen Delivery Oxygen Flow Rate Fraction of Inspired Oxygen 07/30/25 12:45 07/30/25 13:00 Temperature Pulse Rate 109 H 120 H Respiratory Rate 20 Blood Pressure 99/80 L 114/78 Pulse Oximetry 100 Oxygen Delivery Oxygen Flow Rate Fraction of Inspired Oxygen Exam Narrative: General: Elderly female, history of dementia, somnolent, in no acute distress HEENT:? Pupils equal and reactive, sclera is clear Neck:? Supple, patient has a right IJ dialysis cath Respiratory:? Coarse breath sounds bilateral, no wheezing, adequate air entry Cardiac:? Irregularly irregular, tachycardia. Abdomen:? Soft, nontender, nondistended, hypoactive bowel sound Extremities:? Left extremity fistula, bilateral lower extremity pitting edema up to the thighs Neuro:? Patient is somnolent, does open her eyes, follows simple commands in all extremities and answers a few questions, gets confused and agitated Skin:? Warm and dry Psych:? Confused Results Labs 07/30/25 03:21 07/30/25 03:21 Labs: Short CBC 10/07/25 Range/Units 03:21 WBC 6.9 (4.5-10.0) K/mm3 Hgb 7.7 L (12.0-15.0) g/dL Hct 26.7 L (37.0-47.0) % Plt Count 210 (150-375) k/mm3 BMP 07/29/25 07/30/25 12:52 03:21 Sodium 137 138 Potassium 4.9 5.2 H Chloride 101 100 Carbon Dioxide 23 24 BUN 56 H D 56 H Creatinine 5.37 H 5.50 H Glucose 223 H 138 H Calcium 9.5 9.8 Liver Function 07/29/25 07/30/25 Range/Units 12:52 03:21 Total Bilirubin 0.6 0.7 (0.2-1.3) mg/dL AST 25 22 (14-36) U/L ALT 47 H 34 (6-35) U/L Alkaline Phosphatase 181 H 144 H (38-126) U/L Albumin 3.2 L 3.7 (3.5-5.1) g/dL Urine 07/29/25 Range/Units 20:11 Urine Color Dark yellow (Yellow) Urine Appearance Turbid H (Clear) Urine pH 6.5 (5.0-9.0) Ur Specific [place] 1.022 (1.001-1.035) Urine Protein 4+ H (Negative) mg/dL Urine Glucose (UA) Negative (Negative) mg/dL Quality VTE Prophylaxis VTE prophylaxis: pharmacologic ordered Hospitalist MIPS Advance Care Plan I have confirmed that the patient's Advanced Care Plan is present, code status is documented, or surrogate decision maker is listed in patient medical record.: Yes Medication Reconciliation I have utilized all available resources to obtain, update and review the patients current medications (includes all prescriptions, OTC, herbals, cannabis, and nutritional supplements).: Yes
[2025-07-30] MEDS: ACETAMINOPHEN 325 MG TABLET 650 MG PO (13:37)
[2025-07-30] MEDS: MIDODRINE HCL 10 MG TABLET PO ×2 (13:38→17:22)
[2025-07-30] MEDS: VANCOMYCIN 1,250 MG/NS 250 ML 1,250 MG/250 ML BAG 166.67 MG IVPB (14:12)
[2025-07-30 15:11] LABS: Anion Gap 11 mmol/L (4-12); Blood Urea Nitrogen 25 mg/dL (7-17); Calcium 10.4 mg/dL (8.4-10.2); Carbon Dioxide 27 mmol/L (22-30); Chloride 100 mmol/L (98-107); Estimated CRCL calculation 19 ml/min; Estimated Glomerular Filt Rate 17; Glucose 90 mg/dL (65-110); Potassium 3.6 mmol/L (3.4-5.0); Sodium 138 mmol/L (137-145)
[2025-07-31] VITALS (49 sets, daily range): BP systolic 67–132; BP diastolic 22–86; PULSE 85–132; RESP 17–28; TEMP 0–37.2; O2SAT 87–100
[2025-07-31 04:05] LABS: Hematocrit 25.1 % (37.0-47.0); Hemoglobin 7.2 g/dL (12.0-15.0); Immature Granulocyte Percent A 0.7 % (0-0.5); Lymphocytes Absolute Auto 0.53 K/mm3 (0.9-3.2); Mean Corpuscular HGB Conc 28.7 g/dl (32-36); Mean Corpuscular Hemoglobin 29.6 pg (26-34); Mean Corpuscular Volume 103.3 fl (80-100); Nucleated Red Blood Cells Absolute Auto 0.040 K/mm3 (0.0-0.012); Nucleated Red Blood Cells Perc 0.7 % (0.0-0.2); Platelet Count Result 195 k/mm3 (150-375); Red Blood Count 2.43 M/mm3 (4.2-5.4); White Blood Count 5.9 K/mm3 (4.5-10.0)
[2025-07-31 04:23] LABS: Alanine Aminotransferase 28 U/L (6-35); Albumin Level 3.6 g/dL (3.5-5.1); Alkaline Phosphatase 126 U/L (38-126); Anion Gap 10 mmol/L (4-12); Aspartate Amino Transferase 23 U/L (14-36); Bilirubin,Total 0.6 mg/dL (0.2-1.3); Blood Urea Nitrogen 32 mg/dL (7-17); Calcium 10.4 mg/dL (8.4-10.2); Carbon Dioxide 28 mmol/L (22-30); Chloride 99 mmol/L (98-107); Estimated CRCL calculation 15 ml/min; Estimated Glomerular Filt Rate 12; Glucose 232 mg/dL (65-110); Hypochromasia 1+; Magnesium 2.0 mg/dL (1.6-2.3); Potassium 4.0 mmol/L (3.4-5.0); Schistocytes None Seen; Sodium 137 mmol/L (137-145); Total Protein 6.2 g/dL (6.3-8.2)
[2025-07-31] MEDS: PIPERACILLIN/TAZOBACTAM SOD 2.25 GM in SODIUM CHLORIDE 0.9% IV 50 ML 100 ML IVPB ×3 (05:40→20:24)
[2025-07-31] MEDS: CENTRAL LINE FLUSH 10 ML IV PUSH ×3 (05:41→20:28)
[2025-07-31 07:32] LABS: Iron 31 ug/dL (37-170)
[2025-07-31 07:41] LABS: Percent Iron Saturation 19 % (20-50)
[2025-07-31] MEDS: PANTOPRAZOLE SODIUM IV 40 MG VIAL IV PUSH (07:52)
[2025-07-31] MEDS: MUPIROCIN 2% OINT 22 GM TUBE 1 APPLIC EACH NARE ×2 (07:52→20:27)
[2025-07-31] MEDS: INSULIN ASPART (*BKC) 100 UNITS/ML SUB-Q ×2 (07:52→20:36)
[2025-07-31] MEDS: MIDODRINE HCL 10 MG TABLET PO ×3 (07:52→16:51)
[2025-07-31] MEDS: ACETAMINOPHEN 325 MG TABLET 650 MG PO (08:34)
[2025-07-31 08:39] LABS: Vitamin B12 > 1000.0 pg/mL (239-931)
[2025-07-31] MEDS: ALBUMIN HUMAN 25% 12.5 GM/50ML 50 ML IVPB ×2 (08:40→08:55)
--- NOTE | 2025-07-31 08:55 | WPDINTPN ---
Progress Note: A&P Assessment and Plan (1) Acute metabolic encephalopathy: Code(s): G93.41 - Metabolic encephalopathy Status: Acute Assessment and Plan: Patient presented with altered mental status/encephalopathy which could be related to uremia, infection along with hypotension -discussed with paste mixing supervisor, who stated that patient is almost 8 L positive since at dry weight -unsure if patient has been dialyzed adequately at [facility] as well as [facility] due to low blood pressures. She was also started on midodrine at [facility] which will restart here -post dialysis patient more awake -continue to monitor electrolytes and treat underlying cause -CT brain which did not show any acute intracranial abnormality 07/31: Encephalopathy gradually improving this patient is more awake this morning, most likely related to uremia S since she had dialysis yesterday, she seems to be improving, will continue dialysis again today (2) ESRD (end stage renal disease): Code(s): N18.6 - End stage renal disease Status: Chronic Assessment and Plan: End-stage renal disease on dialysis, Tuesday, Tuesday, Tuesday -07/30: Dialyzed with 2500 mL in fluid removal, she did require Levophed and albumin during dialysis. -patient on midodrine t.i.d. -dialysis per Nephrology (3) Hypotension: Code(s): I95.9 - Hypotension, unspecified Status: Acute Assessment and Plan: Multifactorial, infection, 07/30: CT scan of the chest abdomen follows showed interstitial edema with small left pleural effusion. Abdomen and pelvis did not show any acute abnormality -records have been requested from [facility] -february after repeat an echocardiogram if it was not done at [facility] -continue Zosyn and vancomycin (07/29) -07/29: Preliminary blood cultures negative x2 02/29/2024: Echocardiogram Summary 1. Technically difficult study. 2. Left ventricular chamber dimension is normal. 3. Left ventricular systolic function is lower limits of normal, estimated at 50-55%. 4. There is mildly increased left ventricular wall thickness. 5. Right ventricular systolic function is normal. 6. Left atrial chamber dimension is severely enlarged. 7. Right atrial chamber dimension is mildly enlarged. 8. There is mild aortic valve regurgitation. 9. There is mild mitral valve regurgitation. 10. There is mild to moderate tricuspid valve regurgitation. 11. Pericardial effusion is present. Pericardial effusion is trivial in size anteriorly, and is small in size posteriorly. 12. Left pleural effusion present. (4) CHF (congestive heart failure): Qualifiers: Heart failure chronicity: acute on chronic Heart failure type: unspecified Qualified Code(s): I50.9 - Heart failure, unspecified Code(s): I50.9 - Heart failure, unspecified Status: Acute Assessment and Plan: Pulmonary edema on chest x-ray, could be related to CHF -may repeat an echocardiogram (5) DM type 2 (diabetes mellitus, type 2): Onset Date: ~2018 Qualifiers: Diabetes mellitus nursing home insulin use: without nursing home use Diabetes mellitus complication status: without complication Qualified Code(s): E11.9 - Type 2 diabetes mellitus without complications Code(s): E11.9 - Type 2 diabetes mellitus without complications Status: Chronic Assessment and Plan: Continue Accu-Cheks and sliding scale insulin -hold Lantus as blood sugars have been stable (6) Atrial fibrillation: Qualifiers: Atrial fibrillation type: unspecified Qualified Code(s): I48.91 - Unspecified atrial fibrillation Code(s): I48.91 - Unspecified atrial fibrillation Status: Acute Assessment and Plan: History of atrial fibrillation, continue Eliquis Plan DVT prophylaxis: Eliquis Stress ulcer prophylaxis: Protonix Nutrition: Renal diet Code Status: Full code Critical Care Time Spent: 32 minutes Due to a high probability of clinically significant, life threatening deterioration, the patient required my highest level of preparedness to intervene emergently and I personally spent this critical care time directly and personally managing the patient. This critical care time included obtaining a history; examining the patient; pulse oximetry; ordering and review of studies; arranging urgent treatment with development of a management plan; evaluation of patient's response to treatment; frequent reassessment; and discussions with other providers. It was exclusive of separately billable procedures and treating other patients and teaching time. Please see Assessment and Plan section and the rest of the note for further information on patient assessment and treatment This dictation may have been done utilizing a voice recognition system. Attempts have been made to correct errors. However, there may be uncorrected grammatical, spelling, and recognitions errors present. Subjective Date/time seen: 07/31/25 08:55 Interval history: evie Barrientos is a 80 year old female with significant past medical history of congestive heart failure, end stage renal disease on dialysis, narcolepsy, depression, hyperlipidemia, atrial fibrillation, diabetes, essential hypertension presented the ED on 07/29/2025 from [facility] with complains of altered mental status and hypotension. On the day of admission she was being dialyzed kidney to have systolic blood pressures in this upper 70s. Was given 500 mL IV fluid bolus by the dialysis staff despite which the blood pressures remained 76/42. EMS was called and patient was transferred to [place] ED. Off note, she was recently discharged from [address] on 07/28/2025 which she was admitted for pneumonia, sepsis, hypoxia hyperkalemia. Reason for consult: Altered mental status, hypotension, sepsis 07/31/2025: Patient seen and examined the ICU, is more awake this morning, answers to questions intermittently, seems to be confused but is able to be reoriented. Complains of pain all over, denies any shortness of breath. Patient did get dialysis yesterday with 2500 mL in fluid removal. Definitely more awake than yesterday, follows simple commands in all extremities. States she is hungry. Has been off Levophed since last evening Review of Systems Review of Systems: All systems reviewed & are unremarkable except as noted in HPI and below Exam Narrative: General: Elderly female, history of dementia, somnolent, in no acute distress HEENT:? Pupils equal and reactive, sclera is clear Neck:? Supple, patient has a right IJ dialysis cath Respiratory:? Coarse breath sounds bilateral, no wheezing, adequate air entry Cardiac:? Irregularly irregular, tachycardia. Abdomen:? Soft, nontender, nondistended, hypoactive bowel sound Extremities:? Left extremity fistula, bilateral lower extremity pitting edema up to the thighs Neuro:? Is more awake this morning, still confused but is able to be reoriented and answers questions and follows simple commands Skin:? Warm and dry Psych:? Intermittently confused and agitated Objective Data Vital Signs Vital Signs: Vital Signs - 24 hr 07/30/25 09:00 07/30/25 09:05 07/30/25 09:15 Temperature Pulse Rate 104 H 109 H 100 Respiratory Rate 20 Blood Pressure 94/64 L 89/64 L 87/66 L Pulse Oximetry 100 Oxygen Delivery Oxygen Flow Rate Fraction of Inspired Oxygen 07/30/25 09:25 07/30/25 09:30 07/30/25 09:45 Temperature Pulse Rate 95 114 H 114 H Respiratory Rate Blood Pressure 87/66 L 101/74 120/69 Pulse Oximetry Oxygen Delivery Oxygen Flow Rate Fraction of Inspired Oxygen 07/30/25 09:56 07/30/25 10:00 07/30/25 10:00 Temperature Pulse Rate 106 H 120 H Respiratory Rate Blood Pressure 134/68 134/68 Pulse Oximetry 100 Oxygen Delivery Nasal Cannula Oxygen Flow Rate 2 Fraction of Inspired Oxygen 07/30/25 10:00 07/30/25 10:00 07/30/25 10:15 Temperature Pulse Rate 122 H 122 H 113 H Respiratory Rate 16 Blood Pressure 125/79 124/68 Pulse Oximetry 100 Oxygen Delivery Oxygen Flow Rate Fraction of Inspired Oxygen 07/30/25 10:30 07/30/25 10:45 07/30/25 11:00 Temperature Pulse Rate 118 H 131 H 113 H Respiratory Rate 18 Blood Pressure 125/79 124/72 118/79 Pulse Oximetry 100 Oxygen Delivery Oxygen Flow Rate Fraction of Inspired Oxygen 07/30/25 11:00 07/30/25 11:15 07/30/25 11:30 Temperature Pulse Rate 112 H 125 H 118 H Respiratory Rate Blood Pressure 118/79 118/61 126/62 Pulse Oximetry Oxygen Delivery Oxygen Flow Rate Fraction of Inspired Oxygen 07/30/25 11:45 07/30/25 11:59 07/30/25 12:00 Temperature Pulse Rate 115 H 115 H 124 H Respiratory Rate Blood Pressure 125/80 125/80 123/62 Pulse Oximetry Oxygen Delivery Oxygen Flow Rate Fraction of Inspired Oxygen 07/30/25 12:00 07/30/25 12:00 07/30/25 12:00 Temperature 98.2 F Pulse Rate 111 H 117 H 117 H Respiratory Rate 19 18 Blood Pressure 123/62 Pulse Oximetry 100 100 Oxygen Delivery Nasal Cannula Oxygen Flow Rate 2 Fraction of Inspired Oxygen 07/30/25 12:15 07/30/25 12:30 07/30/25 12:45 Temperature Pulse Rate 115 H 110 H 109 H Respiratory Rate Blood Pressure 117/67 115/64 99/80 L Pulse Oximetry Oxygen Delivery Oxygen Flow Rate Fraction of Inspired Oxygen 07/30/25 12:50 07/30/25 13:00 07/30/25 13:02 Temperature 97.7 F Pulse Rate 109 H 120 H 122 H Respiratory Rate 20 23 H Blood Pressure 112/70 114/78 114/78 Pulse Oximetry 100 100 Oxygen Delivery Oxygen Flow Rate Fraction of Inspired Oxygen 07/30/25 14:00 07/30/25 14:00 07/30/25 14:00 Temperature Pulse Rate 105 H 97 100 Respiratory Rate 16 Blood Pressure 92/52 L Pulse Oximetry 100 Oxygen Delivery Oxygen Flow Rate Fraction of Inspired Oxygen 07/30/25 14:22 07/30/25 14:28 07/30/25 14:39 Temperature Pulse Rate 108 H 110 H 94 Respiratory Rate Blood Pressure 84/59 L 92/52 L 78/53 L Pulse Oximetry Oxygen Delivery Oxygen Flow Rate Fraction of Inspired Oxygen 07/30/25 15:00 07/30/25 16:00 07/30/25 16:00 Temperature 98 F Pulse Rate 119 H 120 H 117 H Respiratory Rate 28 H 19 Blood Pressure 125/83 118/67 Pulse Oximetry 100 97 Oxygen Delivery Oxygen Flow Rate Fraction of Inspired Oxygen 07/30/25 16:00 07/30/25 16:00 07/30/25 17:00 Temperature Pulse Rate 122 H 105 H 120 H Respiratory Rate 15 18 Blood Pressure 109/77 Pulse Oximetry 100 95 Oxygen Delivery Nasal Cannula Oxygen Flow Rate 2 Fraction of Inspired Oxygen 07/30/25 18:00 07/30/25 18:00 07/30/25 18:00 Temperature Pulse Rate 122 H 122 H 114 H Respiratory Rate 20 Blood Pressure 139/76 139/76 Pulse Oximetry 94 Oxygen Delivery Oxygen Flow Rate Fraction of Inspired Oxygen 07/30/25 19:00 07/30/25 20:00 07/30/25 20:00 Temperature 97.7 F Pulse Rate 98 96 80 Respiratory Rate 20 20 Blood Pressure 91/69 L 103/61 Pulse Oximetry 90 100 Oxygen Delivery Nasal Cannula Oxygen Flow Rate 2 Fraction of Inspired Oxygen 07/30/25 20:00 07/30/25 20:00 07/30/25 20:39 Temperature 97.8 F Pulse Rate 89 89 107 H Respiratory Rate 19 20 Blood Pressure 103/61 Pulse Oximetry 100 100 Oxygen Delivery Nasal Cannula Oxygen Flow Rate 2 Fraction of Inspired Oxygen 28 07/30/25 21:00 07/30/25 22:00 07/30/25 22:00 Temperature 97.8 F Pulse Rate 77 87 89 Respiratory Rate 17 22 H Blood Pressure 92/51 L 107/64 Pulse Oximetry 100 92 Oxygen Delivery Oxygen Flow Rate Fraction of Inspired Oxygen 07/30/25 22:00 07/30/25 23:00 07/30/25 23:51 Temperature Pulse Rate 89 94 94 Respiratory Rate 18 18 Blood Pressure 107/64 97/65 L Pulse Oximetry 100 100 Oxygen Delivery Nasal Cannula Oxygen Flow Rate 2 Fraction of Inspired Oxygen 07/31/25 00:00 07/31/25 00:00 07/31/25 00:00 Temperature 98.4 F Pulse Rate 91 87 87 Respiratory Rate 19 Blood Pressure 106/66 97/60 L Pulse Oximetry 87 L Oxygen Delivery Oxygen Flow Rate Fraction of Inspired Oxygen 07/31/25 01:00 07/31/25 02:00 07/31/25 02:00 Temperature Pulse Rate 95 92 89 Respiratory Rate 25 H 25 H Blood Pressure 90/77 L 98/60 L Pulse Oximetry 100 90 Oxygen Delivery Oxygen Flow Rate Fraction of Inspired Oxygen 07/31/25 03:00 07/31/25 03:35 07/31/25 04:00 Temperature 97.8 F Pulse Rate 85 85 98 Respiratory Rate 22 H 22 H Blood Pressure 93/54 L 100/64 Pulse Oximetry 100 100 Oxygen Delivery Nasal Cannula Oxygen Flow Rate 2 Fraction of Inspired Oxygen 07/31/25 04:00 07/31/25 04:00 07/31/25 05:00 Temperature 97.8 F 97.6 F Pulse Rate 91 91 94 Respiratory Rate 26 H 22 H Blood Pressure 100/64 96/61 L Pulse Oximetry 100 100 Oxygen Delivery Oxygen Flow Rate Fraction of Inspired Oxygen 07/31/25 06:00 07/31/25 06:00 07/31/25 06:00 Temperature Pulse Rate 95 91 97 Respiratory Rate 25 H Blood Pressure 95/63 L 95/63 L Pulse Oximetry 98 Oxygen Delivery Oxygen Flow Rate Fraction of Inspired Oxygen 07/31/25 07:00 Temperature Pulse Rate 92 Respiratory Rate 28 H Blood Pressure 93/60 L Pulse Oximetry 98 Oxygen Delivery Oxygen Flow Rate Fraction of Inspired Oxygen Intake/Output Intake/Output: Intake & Output 07/28/25 07/29/25 07/30/25 07/31/25 23:59 23:59 23:59 23:59 Intake Total 1390.0 1010.3 0 Output Total 20 2510 0 Balance 1370.0 -1499.7 0 Meds/Results Medications: Active Medications Generic Name Dose Route Start Last Admin Trade Name Freq PRN Reason Stop Dose Admin Acetaminophen 650 mg 07/29/25 15:59 07/31/25 08:34 Acetaminophen 325 Mg Tablet PO 650 mg Q4H PRN Administration Mild Pain (1-3) or Fever Acetaminophen 650 mg 07/29/25 17:04 Acetaminophen 650 Mg Suppository RECTAL Q6H PRN Mild Pain (1-3) or Fever Albuterol/Ipratropium 3 ml 07/29/25 19:52 Ipratropium 0.5 Mg/Albuterol Sulfate 2.5 Mg (Base) Ampul.Neb 3 Ml INHALATION Q4HRT PRN Shortness of Breath. Apixaban 5 mg 07/30/25 09:00 07/30/25 17:22 Apixaban 5 Mg Tablet PO 5 mg On Hold: 07/31/25 07:18 BID BIANKA Administration Dextrose 12.5 gm 07/29/25 19:52 Dextrose 50% 25 Gm/50 Ml Syringe IV PUSH PRN PRN Hypoglycemia Protocol Epoetin [place]-epbx 10,000 units 07/31/25 18:13 Epoetin [place]-Epbx 10,000 Units/Ml Vial IV PUSH 07/31/25 18:14 ONCE ONE Glucagon 1 mg 07/29/25 19:52 Glucagon For Inj 1 Mg Vial IM PRN PRN Hypoglycemia Protocol Glucose 15 gm 07/29/25 19:52 Glucose Oral Gel 15 Gm Of Glucse In 37.5 Gm Tube PO PRN PRN Hypoglycemia Protocol Norepinephrine Bitartrate 8 mg in 250 mls @ 0 mls/hr 07/29/25 15:25 07/31/25 06:00 Levophed 8 Mg/D5w 250 Ml IV CONT 0 mcg/min .Q0M BIANKA 0 mls/hr Protocol Titration 0 MCG/MIN Dextrose 1,000 mls @ 100 mls/hr 07/29/25 19:52 Dextrose 5% 1,000 Ml IVPB PRN PRN Hypoglycemia Protocol Albumin Human 50 mls @ 999 mls/hr 07/30/25 05:49 07/30/25 09:36 Albutein IVPB 08/29/25 05:48 Infused Q10M PRN Infusion HYPOTENSION Piperacillin Sod/Tazobactam 50 mls @ 100 mls/hr 07/30/25 14:00 07/31/25 05:40 Sod 2.25 gm/ Sodium Chloride IVPB 100 mls/hr Q8H BIANKA Administration Vancomycin HCl 750 mg in 250 mls @ 250 mls/hr 07/31/25 18:00 Vancomycin 750 Mg/Ns 250 Ml IVPB 07/31/25 18:59 ONCE ONE Insulin Aspart 4 - 8 units 07/31/25 08:00 07/31/25 07:52 Insulin Aspart (*Bkc) 100 Units/Ml SUB-Q 4 units TIDWM [facility] Administration Protocol Insulin Aspart 2 - 4 units 07/30/25 21:00 07/30/25 20:02 Insulin Aspart (*Bkc) 100 Units/Ml SUB-Q Not Given HS [facility] Protocol Insulin Glargine 15 units 07/30/25 09:00 07/30/25 09:16 Insulin Glargine (*Bkc) 100 Units/Ml SUB-Q Not Given On Hold: 07/30/25 13:46 QAM BIANKA Midodrine 10 mg 07/30/25 17:00 07/31/25 07:52 Midodrine Hcl 10 Mg Tablet PO 10 mg [email or web address] BIANKA Administration Miscellaneous Information 1 each 07/30/25 19:00 Pharmacist Communication Order XX 07/30/25 19:01 ONCE ONE Mupirocin 1 applic 07/29/25 21:00 07/31/25 07:52 Mupirocin 2% Oint 22 Gm Tube EACH NARE 08/03/25 09:01 1 applic Q12HR BIANKA Administration Naloxone HCl 0.1 mg 07/29/25 20:26 Naloxone Hcl 0.4 Mg/Ml Vial IV PUSH Q5MIN PRN Sedation Ondansetron HCl 4 mg 07/29/25 15:59 Ondansetron Inj 4 Mg/2 Ml Vial IV PUSH Q4H PRN Nausea Pantoprazole Sodium 40 mg 07/30/25 09:00 07/31/25 07:52 Pantoprazole Sodium Iv 40 Mg Vial IV PUSH 40 mg QAM BIANKA Administration Sodium Chloride 10 ml 07/29/25 22:00 07/31/25 05:41 Central Line Flush IV PUSH 10 ml Q8HR BIANKA Administration Sodium Chloride 20 ml 07/29/25 15:58 Central Line Flush IV PUSH PRN PRN after blood draws Vancomycin HCl 1 each 07/29/25 19:25 Vancomycin For Hemodialysis IVPB PRN PRN Vancomycin Protocol Radiology Results: ITS Impressions Head CT 07/29/25 17:35 Impression: 1.No acute intracranial abnormality. Chest/Abdomen/Pelvis CT 07/29/25 18:21 IMPRESSION: CHEST- 1. Mild interstitial pulmonary edema with small left pleural effusions and bibasilar atelectasis. 2. No other acute abnormality. ABDOMEN/PELVIS- 1. No acute abnormality. 2. Additional findings as above. Chest X-Ray 07/31/25 08:16 Impression: CHF Labs Labs: Laboratory Results - last 24 hr 07/29/25 07/30/25 07/30/25 15:45 11:56 14:38 WBC RBC Hgb Hct MCV MCH MCHC RDW Plt Count MPV Immature Gran % (Auto) Neut % (Auto) Lymph % (Auto) [place] % (Auto) Eos % (Auto) Baso % (Auto) Lymph # (Auto) [place] # (Auto) Eos # (Auto) Baso # (Auto) Abs Immat Gran (auto) Absolute Neuts (auto) Absolute Nucleated RBC Band Neutrophils % Nucleated RBC % Platelet Estimate Hypochromasia Schistocytes Sodium 138 Potassium 3.6 Chloride 100 Carbon Dioxide 27 Anion Gap 11 BUN 25 H D Creatinine 2.75 H Estim Creat Clear Calc 19 Estimated GFR 17 L Glucose 90 POC Capillary Glucose 98 Lactic Acid Calcium 10.4 H Phosphorus Magnesium Iron TIBC % Saturation Total Bilirubin AST ALT Alkaline Phosphatase Total Protein Albumin Vitamin B12 Folate Prolactin 14.3 Random Vancomycin 07/30/25 07/30/25 07/30/25 15:51 17:21 20:02 WBC RBC Hgb Hct MCV MCH MCHC RDW Plt Count MPV Immature Gran % (Auto) Neut % (Auto) Lymph % (Auto) [place] % (Auto) Eos % (Auto) Baso % (Auto) Lymph # (Auto) [place] # (Auto) Eos # (Auto) Baso # (Auto) Abs Immat Gran (auto) Absolute Neuts (auto) Absolute Nucleated RBC Band Neutrophils % Nucleated RBC % Platelet Estimate Hypochromasia Schistocytes Sodium Potassium Chloride Carbon Dioxide Anion Gap BUN Creatinine Estim Creat Clear Calc Estimated GFR Glucose POC Capillary Glucose 78 93 185 H Lactic Acid Calcium Phosphorus Magnesium Iron TIBC % Saturation Total Bilirubin AST ALT Alkaline Phosphatase Total Protein Albumin Vitamin B12 Folate Prolactin Random Vancomycin 07/31/25 07/31/2507/31/25 03:59 04:00 07:50 WBC 5.9 RBC 2.43 L Hgb 7.2 L Hct 25.1 L MCV 103.3 H MCH 29.6 MCHC 28.7 L RDW 17.2 H Plt Count 195 MPV 9.5 Immature Gran % (Auto) 0.7 H Neut % (Auto) 77.2 H Lymph % (Auto) 8.9 L [place] % (Auto) 9.9 H Eos % (Auto) 3.0 Baso % (Auto) 0.3 Lymph # (Auto) 0.53 L [place] # (Auto) 0.6 Eos # (Auto) 0.2 Baso # (Auto) 0.0 Abs Immat Gran (auto) 0.04 H Absolute Neuts (auto) 4.6 Absolute Nucleated RBC 0.040 H Band Neutrophils % Not Reportable Nucleated RBC % 0.7 H Platelet Estimate Adequate Hypochromasia 1+ Schistocytes None seen Sodium 137 Potassium 4.0 Chloride 99 Carbon Dioxide 28 Anion Gap 10 BUN 32 H Creatinine 3.63 H Estim Creat Clear Calc 15 Estimated GFR 12 L Glucose 232 H POC Capillary Glucose 220 H Lactic Acid 1.8 Calcium 10.4 H Phosphorus 6.1 H Magnesium 2.0 Iron 31 L TIBC 160 L % Saturation 19 L Total Bilirubin 0.6 AST 23 ALT 28 Alkaline Phosphatase 126 Total Protein 6.2 L Albumin 3.6 Vitamin B12 > 1000.0 H Folate 10.8 Prolactin Random Vancomycin 22.2 H Quality VTE Prophylaxis VTE prophylaxis: pharmacologic ordered
--- NOTE | 2025-07-31 09:40 | P.PNNP_ITS ---
Progress Note: A&P Assessment and Plan (1) ESRD (end stage renal disease): Code(s): N18.6 - End stage renal disease Status: Chronic Assessment and Plan: * HD tomorrow * continue Tue/Tue/Tuesday dialysis schedule while hospitalized * follow electrolytes, volume status, and clearance (2) Hypotension: Code(s): I95.9 - Hypotension, unspecified Status: Acute Assessment and Plan: * acute on chronic * etiology? * early sepsis/infection? * baseline systolic BP runs in the 90s for the last month * recently started on midodrine therapy from recent [facility] admission * follow culture data * off vasopressor therapy currently * resumed on midodrine therapy (3) AMS (altered mental status): Qualifiers: Altered mental status type: transient alteration of awareness Qualified Code(s): R40.4 - Transient alteration of awareness Code(s): R41.82 - Altered mental status, unspecified Status: Acute Assessment and Plan: * improvement noted * despite underlying dementia, usually alert and oriented x 3 * head CT negative * due to hypotension versus early sepsis(?) * follow trend of mentation with current interventions (4) Acute hypoxic respiratory failure: Code(s): J96.01 - Acute respiratory failure with hypoxia Status: Acute Assessment and Plan: * as noted since admission * presumably due to volume overload (CHF + pulmonary edema) and recent pneumonia * admission imaging noted * fluid removal challenging in the context of hypotension (presumably a problem during recent hospitalization at [facility] as well) * dry ultrafiltration today for further fluid removal * follow respiratory status (5) Urinary tract infection: Qualifiers: Hematuria presence: without hematuria Urinary tract infection type: a cute cystitis Qualified Code(s): N30.00 - Acute cystitis without hematuria Code(s): N39.0 - Urinary tract infection, site not specified Status: Acute Assessment and Plan: * admission UA suggestive * follow culture data * on antibiotics (6) Volume overload: Code(s): E87.70 - Fluid overload, unspecified Status: Acute Assessment and Plan: * as suggested by evidence to date: * imaging with CHF findings and pulmonary edema * 6 - 7kg above dry weight per outpatient dialysis clinic when seen on 07/29 * aggressive fluid removal with HD and DUF as tolerated by hemodynamics * follow-up on Echo done on previous admission to [facility] * planning daily dialysis/ultrafiltration (7) Anemia: Qualifiers: Anemia type: due to chronic kidney disease Chronic kidney disease stage: on chronic dialysis Qualified Code(s): N18.6 - End stage renal disease; D63.1 - Anemia in chronic kidney disease; Z99.2 - Dependence on renal dialysis Code(s): D64.9 - Anemia, unspecified Status: Chronic Assessment and Plan: * due to ESRD and acute illness * anemia studies noted: * evidence of mild iron deficiency * follow trend of H/H * Epogen with HD (8) DM type 2 (diabetes mellitus, type 2): Onset Date: ~2018 Qualifiers: Diabetes mellitus residential insulin use: without termite control representative use Diabetes mellitus complication status: without complication Qualified Code(s): E11.9 - Type 2 diabetes mellitus without complications Code(s): E11.9 - Type 2 diabetes mellitus without complications Status: Chronic Assessment and Plan: * follow accu-cheks * glycemic control per hospitalist Will continue to follow. L Subjective Date/time seen: 07/31/25 09:40 Interval history: Following for end stage renal disease on hemodialysis. Tolerated dialysis treatment yesterday without any issues or problems; tolerating dry ultrafiltration at the time of my visit (seen on DUF at 9:30am); more awake today and responsive to questions but intermittently confused; weaned off levophed gtt yesterday evening and restarted on midodrine therapy. Exam 2 Narrative: General: elderly but WD/WN female in NAD Heart: IRRR, normal S1 and S2; no rub Lungs: coarse breath sounds; decreased at bases Abdomen: soft, nontender, nondistended, positive bowel sounds Extremities: no cyanosis or clubbing; 2+ edema (UEs and LEs) Skin: warm and dry Objective Data Vital Signs Vital Signs: Vital Signs Temp Pulse Resp BP Pulse Ox O2 Del Method O2 Flow Rate 07/31/25 09:30 98 100/86 07/31/25 09:24 106 H 88/64 L 07/31/25 09:15 98 88/64 L 07/31/25 09:00 107 H 89/62 L 07/31/25 09:00 95 24 H 100/86 92 07/31/25 08:45 98 108/54 L 07/31/25 08:40 90 93/57 L 07/31/25 08:30 98.1 F 96 22 H 96/60 L 99 07/31/25 08:30 2 07/31/25 08:00 98.3 F 103 H 28 H 105/63 97 07/31/25 08:00 103 H 07/31/25 08:00 95 23 H 100 Nasal Cannula 2 07/31/25 08:00 103 H 105/63 07/31/25 07:00 92 28 H 93/60 L 98 07/31/25 06:00 97 25 H 95/63 L 98 07/31/25 06:00 91 07/31/25 06:00 95 95/63 L 07/31/25 05:00 97.6 F 94 22 H 96/61 L 100 07/31/25 04:00 97.8 F 91 26 H 100/64 100 07/31/25 04:00 91 07/31/25 04:00 98 100/64 07/31/25 03:35 85 22 H 100 Nasal Cannula 2 07/31/25 03:00 97.8 F 85 22 H 93/54 L 100 07/31/25 02:00 89 25 H 98/60 L 90 07/31/25 02:00 92 07/31/25 01:00 95 25 H 90/77 L 100 07/31/25 00:00 98.4 F 87 19 97/60 L 87 L 07/31/25 00:00 87 07/31/25 00:00 91 106/66 07/30/25 23:51 94 18 100 Nasal Cannula 2 07/30/25 23:00 94 18 97/65 L 100 07/30/25 22:00 89 107/64 07/30/25 22:00 89 22 H 107/64 92 07/30/25 22:00 87 07/30/25 21:00 97.8 F 77 17 92/51 L 100 07/30/25 20:39 107 H 20 100 Nasal Cannula 2 07/30/25 20:00 97.8 F 89 19 103/61 100 07/30/25 20:00 89 07/30/25 20:00 80 20 100 Nasal Cannula 2 07/30/25 20:00 96 103/61 07/30/25 19:00 97.7 F 98 20 91/69 L 90 Intake/Output Intake/Output: Intake & Output 07/28/25 07/29/25 07/30/25 07/31/25 23:59 23:59 23:59 23:59 Intake Total 1390.0 1010.3 598.1 Output Total 20 2510 4000 Balance 1370.0 -1499.7 -3401.9 Meds/Results Medications: Active Medications Generic Name Dose Route Start Last Admin Trade Name Freq PRN Reason Stop Dose Admin Acetaminophen 650 mg 07/29/25 15:59 07/31/25 08:34 Acetaminophen 325 Mg Tablet PO 650 mg Q4H PRN Administration Mild Pain (1-3) or Fever Acetaminophen 650 mg 07/29/25 17:04 Acetaminophen 650 Mg Suppository RECTAL Q6H PRN Mild Pain (1-3) or Fever Albuterol/Ipratropium 3 ml 07/29/25 19:52 Ipratropium 0.5 Mg/Albuterol Sulfate 2.5 Mg (Base) Ampul.Neb 3 Ml INHALATION Q4HRT PRN Shortness of Breath. Apixaban 5 mg 07/30/25 09:00 07/30/25 17:22 Apixaban 5 Mg Tablet PO 5 mg On Hold: 07/31/25 07:18 BID BIANKA Administration Aripiprazole 1 mg 07/31/25 21:00 Aripiprazole 1 Mg Tablet PO HS BIANKA Aripiprazole 2 mg 07/31/25 21:00 Aripiprazole 2 Mg Tablet BY MOUTH HS BIANKA Buspirone HCl 5 mg 07/31/25 17:00 07/31/25 16:51 Buspirone Hcl 5 Mg Tablet BY MOUTH 5 mg TID BIANKA Administration Dextrose 12.5 gm 07/29/25 19:52 Dextrose 50% 25 Gm/50 Ml Syringe IV PUSH PRN PRN Hypoglycemia Protocol Docusate Sodium 200 mg 07/31/25 17:00 07/31/25 16:51 Docusate Sodium 100 Mg Capsule PO 200 mg BID BIANKA Administration Epoetin Austin-epbx 10,000 units 07/31/25 18:13 07/31/25 11:38 Epoetin [place]-Epbx 10,000 Units/Ml Vial IV PUSH 07/31/25 18:14 10,000 units ONCE ONE Administration Glucagon 1 mg 07/29/25 19:52 Glucagon For Inj 1 Mg Vial IM PRN PRN Hypoglycemia Protocol Glucose 15 gm 07/29/25 19:52 Glucose Oral Gel 15 Gm Of Glucse In 37.5 Gm Tube PO PRN PRN Hypoglycemia Protocol Norepinephrine Bitartrate 8 mg in 250 mls @ 1.875 mls/hr 07/29/25 15:25 07/31/25 16:00 Levophed 8 Mg/D5w 250 Ml IV CONT 1 mcg/min .Q24H BIANKA 1.88 mls/hr Protocol Titration 1 MCG/MIN Dextrose 1,000 mls @ 100 mls/hr 07/29/25 19:52 Dextrose 5% 1,000 Ml IVPB PRN PRN Hypoglycemia Protocol Albumin Human 50 mls @ 999 mls/hr 07/30/25 05:49 07/31/25 08:55 Albutein IVPB 08/29/25 05:48 999 mls/hr Q10M PRN Administration HYPOTENSION Piperacillin Sod/Tazobactam 50 mls @ 100 mls/hr 07/30/25 14:00 07/31/25 13:54 Sod 2.25 gm/ Sodium Chloride IVPB 100 mls/hr Q8H BIANKA Administration Vancomycin HCl 750 mg in 250 mls @ 250 mls/hr 07/31/25 18:00 Vancomycin 750 Mg/Ns 250 Ml IVPB 07/31/25 18:59 ONCE ONE Insulin Aspart 4 - 8 units 07/31/25 08:00 07/31/25 16:51 Insulin Aspart (*Bkc) 100 Units/Ml SUB-Q Not Given TIDWM [facility] Protocol Insulin Aspart 2 - 4 units 07/30/25 21:00 07/30/25 20:02 Insulin Aspart (*Bkc) 100 Units/Ml SUB-Q Not Given HS [facility] Protocol Insulin Glargine 15 units 07/30/25 09:00 07/30/25 09:16 Insulin Glargine (*Bkc) 100 Units/Ml SUB-Q Not Given On Hold: 07/30/25 13:46 QAM [facility] Insulin Glargine 5 units 07/31/25 10:20 07/31/25 10:50 Insulin Glargine (*Bkc) 100 Units/Ml SUB-Q 5 units DAILY BIANKA Administration Methylphenidate HCl 10 mg 08/01/25 08:00 Methylphenidate Hcl (*Crx) 10 Mg Tablet PO 0800,1200 [facility] Midodrine 10 mg 07/31/25 13:00 07/31/25 16:51 Midodrine Hcl 10 Mg Tablet PO 10 mg TID BIANKA Administration Miscellaneous Information 1 each 08/01/25 00:01 Home Med Xphozah 30 Mg Is Usually Non Formulary Per Daughter Shima. Home Med Is Locked In XX 08/31/25 00:00 CLARIFY BIANKA Mupirocin 1 applic 07/29/25 21:00 07/31/25 07:52 Mupirocin 2% Oint 22 Gm Tube EACH NARE 08/03/25 09:01 1 applic Q12HR BIANKA Administration Naloxone HCl 0.1 mg 07/29/25 20:26 Naloxone Hcl 0.4 Mg/Ml Vial IV PUSH Q5MIN PRN Sedation Ondansetron HCl 4 mg 07/29/25 15:59 Ondansetron Inj 4 Mg/2 Ml Vial IV PUSH Q4H PRN Nausea Pantoprazole Sodium 40 mg 07/30/25 09:00 07/31/25 07:52 Pantoprazole Sodium Iv 40 Mg Vial IV PUSH 40 mg QAM BIANKA Administration Rosuvastatin Calcium 10 mg 08/01/25 09:00 Rosuvastatin 10 Mg Tablet PO DAILY BIANKA Sertraline HCl 50 mg 08/01/25 09:00 Sertraline Hcl 50 Mg Tablet PO DAILY BIANKA Sodium Chloride 10 ml 07/29/25 22:00 07/31/25 13:55 Central Line Flush IV PUSH 10 ml Q8HR BIANKA Administration Sodium Chloride 20 ml 07/29/25 15:58 Central Line Flush IV PUSH PRN PRN after blood draws Vancomycin HCl 1 each 07/29/25 19:25 Vancomycin For Hemodialysis IVPB PRN PRN Vancomycin Protocol Radiology Results: ITS Impressions Head CT 07/29/25 17:35 Impression: 1.No acute intracranial abnormality. Chest/Abdomen/Pelvis CT 07/29/25 18:21 IMPRESSION: CHEST- 1. Mild interstitial pulmonary edema with small left pleural effusions and bibasilar atelectasis. 2. No other acute abnormality. ABDOMEN/PELVIS- 1. No acute abnormality. 2. Additional findings as above. Chest X-Ray 07/31/25 08:16 Impression: CHF Labs Labs: Laboratory Tests 07/31/25 03:59 07/31/25 03:59 Lactic Acid 1.8 Calcium 10.4 H Phosphorus 6.1 H Magnesium 2.0 Iron 31 L TIBC 160 L % Saturation 19 L Total Bilirubin 0.6 AST 23 ALT 28 Alkaline Phosphatase 126 Total Protein 6.2 L Albumin 3.6 Vitamin B12 > 1000.0 H Folate 10.8 Microbiology 07/29/25 15:45 Blood Blood Culture - Preliminary 07/29/25 14:23 Blood Blood Culture - Preliminary
[2025-07-31] MEDS: HALOPERIDOL LACTATE 5 MG/ML VIAL 2 MG IV PUSH (10:49)
[2025-07-31] MEDS: INSULIN GLARGINE (*BKC) 100 UNITS/ML SUB-Q (10:50)
[2025-07-31] MEDS: EPOETIN ALFA-EPBX 10,000 UNITS/ML VIAL 10000 UNITS IV PUSH (11:38)
[2025-07-31] MEDS: DOCUSATE SODIUM 100 MG CAPSULE 200 MG PO (16:51)
[2025-07-31] MEDS: VANCOMYCIN 750 MG/NS 250 ML 750 MG/250 ML BAG 250 MG IVPB (19:21)
[2025-08-01] VITALS (39 sets, daily range): BP systolic 89–130; BP diastolic 47–89; PULSE 89–119; RESP 16–38; TEMP 36.4–37.4; O2SAT 95–100
[2025-08-01] MEDS: PIPERACILLIN/TAZOBACTAM SOD 2.25 GM in SODIUM CHLORIDE 0.9% IV 50 ML 100 ML IVPB ×3 (05:38→22:21)
[2025-08-01] MEDS: CENTRAL LINE FLUSH 10 ML IV PUSH (05:39)
[2025-08-01 05:47] LABS: Hematocrit 26.6 % (37.0-47.0); Hemoglobin 7.8 g/dL (12.0-15.0); Immature Granulocyte Percent A 1.1 % (0-0.5); Lymphocytes Absolute Auto 0.79 K/mm3 (0.9-3.2); Mean Corpuscular HGB Conc 29.3 g/dl (32-36); Mean Corpuscular Hemoglobin 29.8 pg (26-34); Mean Corpuscular Volume 101.5 fl (80-100); Nucleated Red Blood Cells Absolute Auto 0.040 K/mm3 (0.0-0.012); Nucleated Red Blood Cells Perc 0.5 % (0.0-0.2); Platelet Count Result 219 k/mm3 (150-375); Red Blood Count 2.62 M/mm3 (4.2-5.4); White Blood Count 8.0 K/mm3 (4.5-10.0)
[2025-08-01 06:10] LABS: Alanine Aminotransferase 24 U/L (6-35); Albumin Level 3.8 g/dL (3.5-5.1); Alkaline Phosphatase 144 U/L (38-126); Anion Gap 15 mmol/L (4-12); Aspartate Amino Transferase 18 U/L (14-36); Bilirubin,Total 0.8 mg/dL (0.2-1.3); Blood Urea Nitrogen 41 mg/dL (7-17); Calcium 9.8 mg/dL (8.4-10.2); Carbon Dioxide 24 mmol/L (22-30); Chloride 100 mmol/L (98-107); Estimated CRCL calculation 9 ml/min; Estimated Glomerular Filt Rate 8; Glucose 193 mg/dL (65-110); Magnesium 1.9 mg/dL (1.6-2.3); Potassium 4.3 mmol/L (3.4-5.0); Sodium 139 mmol/L (137-145); Total Protein 6.6 g/dL (6.3-8.2)
[2025-08-01 06:27] LABS: Anisocytosis 1+; Hypochromasia 1+; Schistocytes None Seen
--- NOTE | 2025-08-01 08:00 | PC.NURSE ---
Per BASSEM Bridges: During AM assessment, RN found that patient had removed central line from groin. Sutures were intact, but line itself was exposed with catheter intact. No active bleeding noted. No medications were infusing through the line at this time. RN notified academic director, Dr. Ledbetter, and applied dressing to site. Sutures were removed and line was disposed of. Patient has had no issues or complaints since.
[2025-08-01] MEDS: ROSUVASTATIN 10 MG TABLET PO (08:22)
[2025-08-01] MEDS: MIDODRINE HCL 10 MG TABLET PO ×3 (08:23→17:59)
[2025-08-01] MEDS: INSULIN GLARGINE (*BKC) 100 UNITS/ML SUB-Q (08:23)
[2025-08-01] MEDS: methylPHENIDATE HCL (*CRX) 10 MG TABLET PO ×2 (08:23→15:31)
[2025-08-01] MEDS: DOCUSATE SODIUM 100 MG CAPSULE 200 MG PO ×2 (08:23→17:59)
[2025-08-01] MEDS: SERTRALINE HCL 50 MG TABLET PO (08:23)
[2025-08-01] MEDS: MUPIROCIN 2% OINT 22 GM TUBE 1 APPLIC EACH NARE ×2 (08:24→20:13)
[2025-08-01] MEDS: PANTOPRAZOLE SODIUM IV 40 MG VIAL IV PUSH (08:24)
[2025-08-01] MEDS: EPOETIN ALFA-EPBX 10,000 UNITS/ML VIAL 10000 UNITS IV PUSH (10:42)
[2025-08-01] MEDS: SODIUM CHLORIDE 0.9% IV 1,000 ML 999 ML IV CONT (10:43)
[2025-08-01] MEDS: ALBUMIN HUMAN 25% 12.5 GM/50ML 50 ML 100 GM (10:44)
--- NOTE | 2025-08-01 11:44 | PHAR ---
Drug Name:Xphozah Ingredients:??Tenapanor?-- 30 MG Related Documents:? DRUGDEX Evaluations -?Tenapanor Color:?YellowShape:?OvalImprint:??LOGO?;?[id number]:?Oral Tablet
--- NOTE | 2025-08-01 11:47 | WPDINTPN ---
Progress Note: A&P Assessment and Plan (1) Acute metabolic encephalopathy: Code(s): G93.41 - Metabolic encephalopathy Status: Acute Assessment and Plan: Patient presented with altered mental status/encephalopathy which could be related to uremia, infection along with hypotension -discussed with railroad brake repairer, who stated that patient is almost 8 L positive since at dry weight -unsure if patient has been dialyzed adequately at [facility] as well as [facility] dialysis [facility] due to low blood pressures. She was also started on midodrine at [facility] which will restart here -post dialysis patient more awake -continue to monitor electrolytes and treat underlying cause -CT brain which did not show any acute intracranial abnormality 07/31: Encephalopathy gradually improving this patient is more awake this morning, most likely related to uremia S since she had dialysis yesterday, she seems to be improving, will continue dialysis again today 08/01: Appreciate Neurology evaluation and recommendations, will add Namenda and EEG per Neurology recommendation (2) ESRD (end stage renal disease): Code(s): N18.6 - End stage renal disease Status: Chronic Assessment and Plan: End-stage renal disease on dialysis, Tuesday, Tuesday, Tuesday -07/30: Dialyzed with 2500 mL in fluid removal, she did require Levophed and albumin during dialysis. -08/01: Dialyzed with 4000 mL in fluid removal -patient on midodrine t.i.d. -dialysis per Nephrology (3) Hypotension: Code(s): I95.9 - Hypotension, unspecified Status: Acute Assessment and Plan: Multifactorial, infection, 07/30: CT scan of the chest abdomen follows showed interstitial edema with small left pleural effusion. Abdomen and pelvis did not show any acute abnormality -records have been requested from [facility] -may after repeat an echocardiogram if it was not done at [facility] -continue Zosyn and vancomycin (07/29) -07/29: Preliminary blood cultures negative x2 02/29/2024: Echocardiogram Summary 1. Technically difficult study. 2. Left ventricular chamber dimension is normal. 3. Left ventricular systolic function is lower limits of normal, estimated at 50-55%. 4. There is mildly increased left ventricular wall thickness. 5. Right ventricular systolic function is normal. 6. Left atrial chamber dimension is severely enlarged. 7. Right atrial chamber dimension is mildly enlarged. 8. There is mild aortic valve regurgitation. 9. There is mild mitral valve regurgitation. 10. There is mild to moderate tricuspid valve regurgitation. 11. Pericardial effusion is present. Pericardial effusion is trivial in size anteriorly, and is small in size posteriorly. 12. Left pleural effusion present. (4) CHF (congestive heart failure): Qualifiers: Heart failure chronicity: acute on chronic Heart failure type: unspecified Qualified Code(s): I50.9 - Heart failure, unspecified Code(s): I50.9 - Heart failure, unspecified Status: Acute Assessment and Plan: Pulmonary edema on chest x-ray, could be related to CHF -may repeat an echocardiogram (5) DM type 2 (diabetes mellitus, type 2): Onset Date: ~2018 Qualifiers: Diabetes mellitus moth exterminator insulin use: without moth exterminator use Diabetes mellitus complication status: without complication Qualified Code(s): E11.9 - Type 2 diabetes mellitus without complications Code(s): E11.9 - Type 2 diabetes mellitus without complications Status: Chronic Assessment and Plan: Continue Accu-Cheks and sliding scale insulin -continue low-dose Lantus (6) Atrial fibrillation: Qualifiers: Atrial fibrillation type: unspecified Qualified Code(s): I48.91 - Unspecified atrial fibrillation Code(s): I48.91 - Unspecified atrial fibrillation Status: Acute Assessment and Plan: History of atrial fibrillation, continue Eliquis Plan DVT prophylaxis: Eliquis Stress ulcer prophylaxis: Protonix Nutrition: Renal diet Code Status: Full code Critical Care Time Spent: 32 minutes Due to a high probability of clinically significant, life threatening deterioration, the patient required my highest level of preparedness to intervene emergently and I personally spent this critical care time directly and personally managing the patient. This critical care time included obtaining a history; examining the patient; pulse oximetry; ordering and review of studies; arranging urgent treatment with development of a management plan; evaluation of patient's response to treatment; frequent reassessment; and discussions with other providers. It was exclusive of separately billable procedures and treating other patients and teaching time. Please see Assessment and Plan section and the rest of the note for further information on patient assessment and treatment This dictation may have been done utilizing a voice recognition system. Attempts have been made to correct errors. However, there may be uncorrected grammatical, spelling, and recognitions errors present. Subjective Date/time seen: 08/01/25 11:47 Interval history: evie Barrientos is a 80 year old female with significant past medical history of congestive heart failure, end stage renal disease on dialysis, narcolepsy, depression, hyperlipidemia, atrial fibrillation, diabetes, essential hypertension presented the ED on 07/29/2025 from [facility] with complains of altered mental status and hypotension. On the day of admission she was being dialyzed kidney to have systolic blood pressures in this upper 70s. Was given 500 mL IV fluid bolus by the dialysis staff despite which the blood pressures remained 76/42. EMS was called and patient was transferred to [place] ED. Off note, she was recently discharged from [address] on 07/28/2025 which she was admitted for pneumonia, sepsis, hypoxia hyperkalemia. Reason for consult: Altered mental status, hypotension, sepsis 08/01/2025: Patient seen and examined the ICU, is more awake this morning, answers to questions intermittently, patient has been combative, agitated, pulled her femoral central line this morning. Has been placed in restraints because she is trying to reach for her dialysis catheter. Patient did get dialysis yesterday with 4000 mL in fluid removal. Patient is awake, ate all her breakfast. Patient has to go on a little bit of Levophed during dialysis but then comes off it Review of Systems Review of Systems: All systems reviewed & are unremarkable except as noted in HPI and below Exam Narrative: General: Elderly female, history of dementia, somnolent, in no acute distress HEENT:? Pupils equal and reactive, sclera is clear Neck:? Supple, patient has a right IJ dialysis cath Respiratory:? Coarse breath sounds bilateral, no wheezing, adequate air entry Cardiac:? Irregularly irregular, tachycardia. Abdomen:? Soft, nontender, nondistended, hypoactive bowel sound Extremities:? Left extremity fistula, bilateral lower extremity pitting edema up to the thighs Neuro:? Is more awake this morning, still confused but is able to be reoriented and answers questions and follows simple commands Skin:? Warm and dry Psych:? Intermittently confused and agitated Objective Data Vital Signs Vital Signs: Vital Signs - 24 hr 07/31/25 11:51 07/31/25 12:00 07/31/25 12:00 Temperature 97.9 F Pulse Rate 112 H 115 H 98 Respiratory Rate 22 H 24 H Blood Pressure 91/57 L 103/66 Pulse Oximetry 99 95 Oxygen Delivery Nasal Cannula Oxygen Flow Rate 2 07/31/25 12:00 07/31/25 12:00 07/31/25 12:19 Temperature 98.7 F Pulse Rate 127 H 132 H 111 H Respiratory Rate 24 H Blood Pressure 92/63 L 67/22 L Pulse Oximetry 96 Oxygen Delivery Oxygen Flow Rate 07/31/25 12:38 07/31/25 13:00 07/31/25 13:38 Temperature Pulse Rate 127 H 118 H 103 H Respiratory Rate 26 H 22 H 18 Blood Pressure 93/65 L 116/80 116/74 Pulse Oximetry 95 97 98 Oxygen Delivery Oxygen Flow Rate 07/31/25 14:00 07/31/25 14:00 07/31/25 14:00 Temperature Pulse Rate 114 H 118 H 108 H Respiratory Rate 23 H Blood Pressure 116/80 123/70 Pulse Oximetry 96 Oxygen Delivery Oxygen Flow Rate 07/31/25 15:00 07/31/25 16:00 07/31/25 16:00 Temperature 98.9 F Pulse Rate 118 H 94 94 Respiratory Rate 17 18 Blood Pressure 116/69 103/61 Pulse Oximetry 99 100 Oxygen Delivery Oxygen Flow Rate 07/31/25 16:00 07/31/25 16:00 07/31/25 17:00 Temperature Pulse Rate 95 105 H 106 H Respiratory Rate 17 18 Blood Pressure 103/61 106/86 Pulse Oximetry 95 99 Oxygen Delivery Nasal Cannula Oxygen Flow Rate 2 07/31/25 18:00 07/31/25 18:00 07/31/25 18:00 Temperature Pulse Rate 109 H 102 H 107 H Respiratory Rate 22 H Blood Pressure 87/59 L 87/59 L Pulse Oximetry 98 Oxygen Delivery Oxygen Flow Rate 07/31/25 19:00 07/31/25 20:00 07/31/25 20:00 Temperature Pulse Rate 106 H 125 H 114 H Respiratory Rate 20 Blood Pressure 102/68 115/61 Pulse Oximetry 100 96 Oxygen Delivery Nasal Cannula Oxygen Flow Rate 2 07/31/25 20:00 07/31/25 20:00 07/31/25 21:00 Temperature 98.4 F Pulse Rate 98 98 105 H Respiratory Rate 23 H 23 H Blood Pressure 119/81 126/71 Pulse Oximetry 96 97 Oxygen Delivery Oxygen Flow Rate 10/08/25 21:45 07/31/25 22:00 07/31/25 22:00 Temperature Pulse Rate 104 H 94 94 Respiratory Rate 27 H Blood Pressure 124/68 99/61 L Pulse Oximetry 96 Oxygen Delivery Oxygen Flow Rate 07/31/25 22:00 07/31/25 23:00 07/31/25 23:52 Temperature Pulse Rate 94 92 85 Respiratory Rate 28 H Blood Pressure 99/61 L 110/70 Pulse Oximetry 96 97 Oxygen Delivery Nasal Cannula Oxygen Flow Rate 2 08/01/25 00:00 08/01/25 00:00 08/01/25 00:00 Temperature 97.6 F Pulse Rate 104 H 97 97 Respiratory Rate 18 Blood Pressure 109/65 109/65 Pulse Oximetry 98 Oxygen Delivery Oxygen Flow Rate 08/01/25 01:00 08/01/25 02:00 08/01/25 02:00 Temperature Pulse Rate 94 107 H 107 H Respiratory Rate 16 Blood Pressure 108/69 107/69 Pulse Oximetry 98 Oxygen Delivery Oxygen Flow Rate 08/01/25 02:00 08/01/25 03:00 08/01/25 04:00 Temperature Pulse Rate 107 H 102 H 110 H Respiratory Rate 28 H 28 H Blood Pressure 107/69 95/65 L 107/73 Pulse Oximetry 96 98 Oxygen Delivery Oxygen Flow Rate 08/01/25 04:00 08/01/25 04:00 08/01/25 04:00 Temperature 97.8 F Pulse Rate 110 H 113 H 113 H Respiratory Rate 21 H 25 H Blood Pressure 113/68 Pulse Oximetry 98 100 Oxygen Delivery Nasal Cannula Oxygen Flow Rate 2 08/01/25 05:00 08/01/25 06:00 08/01/25 06:00 Temperature Pulse Rate 104 H 95 95 Respiratory Rate 23 H Blood Pressure 106/66 102/81 Pulse Oximetry 97 Oxygen Delivery Oxygen Flow Rate 08/01/25 06:00 08/01/25 08:00 08/01/25 09:00 Temperature 98.4 F 98.5 F 99.2 F Pulse Rate 95 119 H 118 H Respiratory Rate 18 33 H 36 H Blood Pressure 102/81 109/75 108/76 Pulse Oximetry 99 97 98 Oxygen Delivery Oxygen Flow Rate 08/01/25 09:15 08/01/25 09:15 08/01/25 09:28 Temperature 99.2 F Pulse Rate 118 H 111 H Respiratory Rate 28 H Blood Pressure 108/76 118/76 Pulse Oximetry 99 Oxygen Delivery Oxygen Flow Rate 2 08/01/25 09:45 08/01/25 10:00 08/01/25 10:00 Temperature 99.3 F Pulse Rate 106 H 113 H 110 H Respiratory Rate 25 H Blood Pressure 126/75 119/74 119/74 Pulse Oximetry 99 Oxygen Delivery Oxygen Flow Rate 08/01/25 10:15 08/01/25 10:30 08/01/25 10:45 Temperature Pulse Rate 113 H 113 H 107 H Respiratory Rate Blood Pressure 124/78 122/76 115/68 Pulse Oximetry Oxygen Delivery Oxygen Flow Rate 08/01/25 11:00 08/01/25 11:00 08/01/25 11:15 Temperature 98.7 F Pulse Rate 104 H 108 H 106 H Respiratory Rate 29 H Blood Pressure 100/68 100/68 105/68 Pulse Oximetry 100 Oxygen Delivery Oxygen Flow Rate 08/01/25 11:30 Temperature Pulse Rate 104 H Respiratory Rate Blood Pressure 95/65 L Pulse Oximetry Oxygen Delivery Oxygen Flow Rate Intake/Output Intake/Output: Intake & Output 07/29/25 07/30/25 07/31/25 08/01/25 23:59 23:59 23:59 23:59 Intake Total 1390.0 1010.3 956.0 120 Output Total 20 2510 4000 0 Balance 1370.0 -1499.7 -3044.0 120 Meds/Results Medications: Active Medications Generic Name Dose Route Start Last Admin Trade Name Freq PRN Reason Stop Dose Admin Acetaminophen 650 mg 07/29/25 15:59 07/31/25 08:34 Acetaminophen 325 Mg Tablet PO 650 mg Q4H PRN Administration Mild Pain (1-3) or Fever Acetaminophen 650 mg 07/29/25 17:04 Acetaminophen 650 Mg Suppository RECTAL Q6H PRN Mild Pain (1-3) or Fever Albuterol/Ipratropium 3 ml 07/29/25 19:52 Ipratropium 0.5 Mg/Albuterol Sulfate 2.5 Mg (Base) Ampul.Neb 3 Ml INHALATION Q4HRT PRN Shortness of Breath. Apixaban 5 mg 07/30/25 09:00 07/30/25 17:22 Apixaban 5 Mg Tablet PO 5 mg On Hold: 07/31/25 07:18 BID BIANKA Administration Aripiprazole 1 mg 07/31/25 21:00 07/31/25 20:38 Aripiprazole 1 Mg Tablet PO 1 mg HS BIANKA Administration Aripiprazole 2 mg 07/31/25 21:00 07/31/25 20:25 Aripiprazole 2 Mg Tablet BY MOUTH 2 mg HS BIANKA Administration Buspirone HCl 5 mg 07/31/25 17:00 08/01/25 08:23 Buspirone Hcl 5 Mg Tablet BY MOUTH 5 mg TID BIANKA Administration Dextrose 12.5 gm 07/29/25 19:52 Dextrose 50% 25 Gm/50 Ml Syringe IV PUSH PRN PRN Hypoglycemia Protocol Docusate Sodium 200 mg 07/31/25 17:00 08/01/25 08:23 Docusate Sodium 100 Mg Capsule PO 200 mg BID BIANKA Administration Epoetin [place]-epbx 10,000 units 08/01/25 17:56 08/01/25 10:42 Epoetin [place]-Epbx 10,000 Units/Ml Vial IV PUSH 08/01/25 17:57 10,000 units ONCE ONE Administration Glucagon 1 mg 07/29/25 19:52 Glucagon For Inj 1 Mg Vial IM PRN PRN Hypoglycemia Protocol Glucose 15 gm 07/29/25 19:52 Glucose Oral Gel 15 Gm Of Glucse In 37.5 Gm Tube PO PRN PRN Hypoglycemia Protocol Norepinephrine Bitartrate 8 mg in 250 mls @ 0 mls/hr 07/29/25 15:25 08/01/25 06:00 Levophed 8 Mg/D5w 250 Ml IV CONT 0 mcg/min .Q0M BIANKA 0 mls/hr Protocol Titration Dextrose 1,000 mls @ 100 mls/hr 07/29/25 19:52 Dextrose 5% 1,000 Ml IVPB PRN PRN Hypoglycemia Protocol Albumin Human 50 mls @ 999 mls/hr 07/30/25 05:49 07/31/25 08:55 Albutein IVPB 08/29/25 05:48 999 mls/hr Q10M PRN Administration HYPOTENSION Piperacillin Sod/Tazobactam 50 mls @ 100 mls/hr 07/30/25 14:00 08/01/25 05:38 Sod 2.25 gm/ Sodium Chloride IVPB 08/04/25 23:59 100 mls/hr Q8H BIANKA Administration Insulin Aspart 4 - 8 units 07/31/25 08:00 08/01/25 08:22 Insulin Aspart (*Bkc) 100 Units/Ml SUB-Q Not Given TIDWM [facility] Protocol Insulin Aspart 2 - 4 units 07/30/25 21:00 07/31/25 20:36 Insulin Aspart (*Bkc) 100 Units/Ml SUB-Q 2 units HS [facility] Administration Protocol Insulin Glargine 15 units 07/30/25 09:00 07/30/25 09:16 Insulin Glargine (*Bkc) 100 Units/Ml SUB-Q Not Given On Hold: 07/30/25 13:46 QAM [facility] Insulin Glargine 5 units 07/31/25 10:20 08/01/25 08:23 Insulin Glargine (*Bkc) 100 Units/Ml SUB-Q 5 units DAILY BIANKA Administration Memantine 5 mg 08/02/25 09:00 Memantine 5 Mg Tablet PO 08/09/25 08:59 QAM [facility] Memantine 5 mg 08/09/25 09:00 Memantine 5 Mg Tablet PO Q12HR [facility] Methylphenidate HCl 10 mg 08/01/25 08:00 08/01/25 08:23 Methylphenidate Hcl (*Crx) 10 Mg Tablet PO 10 mg 0800,1200 [facility] Administration Midodrine 10 mg 07/31/25 13:00 08/01/25 08:23 Midodrine Hcl 10 Mg Tablet PO 10 mg TID [facility] Administration Miscellaneous Information 1 each 08/01/25 00:01 Home Med Xphozah 30 Mg Is Usually Non Formulary Per Daughter Shima. Home Med Is Locked In XX 08/31/25 00:00 CLARIFY [facility] Miscellaneous Information 1 each 08/01/25 00:01 Send Xphozah Down To Pharmacy For Verification. XX 08/31/25 00:00 [facility] Mupirocin 1 applic 07/29/25 21:00 08/01/25 08:24 Mupirocin 2% Oint 22 Gm Tube EACH NARE 08/03/25 09:01 1 applic Q12HR BIANKA Administration Naloxone HCl 0.1 mg 07/29/25 20:26 Naloxone Hcl 0.4 Mg/Ml Vial IV PUSH Q5MIN PRN Sedation Non-Formulary Medication 30 mg 08/01/25 18:00 Tenapanor [Xphozah] PO 08/31/25 17:59 QPM BIANKA Ondansetron HCl 4 mg 07/29/25 15:59 Ondansetron Inj 4 Mg/2 Ml Vial IV PUSH Q4H PRN Nausea Pantoprazole Sodium 40 mg 07/30/25 09:00 08/01/25 08:24 Pantoprazole Sodium Iv 40 Mg Vial IV PUSH 40 mg QAM BIANKA Administration Rosuvastatin Calcium 10 mg 08/01/25 09:00 08/01/25 08:22 Rosuvastatin 10 Mg Tablet PO 10 mg DAILY BIANKA Administration Sertraline HCl 50 mg 08/01/25 09:00 08/01/25 08:23 Sertraline Hcl 50 Mg Tablet PO 50 mg DAILY BIANKA Administration Sodium Chloride 10 ml 07/29/25 22:00 08/01/25 05:39 Central Line Flush IV PUSH 10 ml Q8HR BIANKA Administration Sodium Chloride 20 ml 07/29/25 15:58 Central Line Flush IV PUSH PRN PRN after blood draws Vancomycin HCl 1 each 07/29/25 19:25 Vancomycin For Hemodialysis IVPB 08/04/25 23:59 PRN PRN Vancomycin Protocol Radiology Results: ITS Impressions Head CT 07/29/25 17:35 Impression: 1.No acute intracranial abnormality. Chest/Abdomen/Pelvis CT 07/29/25 18:21 IMPRESSION: CHEST- 1. Mild interstitial pulmonary edema with small left pleural effusions and bibasilar atelectasis. 2. No other acute abnormality. ABDOMEN/PELVIS- 1. No acute abnormality. 2. Additional findings as above. Chest X-Ray 08/01/25 08:14 IMPRESSION: 1. Mild bibasilar opacities which could represent atelectasis and/or pneumonia. 2. Cardiomegaly with enlargement of the central pulmonary arteries consistent with pulmonary arterial hypertension. Labs Labs: Laboratory Results - last 24 hr 07/29/25 07/31/25 07/31/25 20:33 11:54 16:49 WBC RBC Hgb Hct MCV MCH MCHC RDW Plt Count MPV Immature Gran % (Auto) Neut % (Auto) Lymph % (Auto) [place] % (Auto) Eos % (Auto) Baso % (Auto) Lymph # (Auto) [place] # (Auto) Eos # (Auto) Baso # (Auto) Abs Immat Gran (auto) Absolute Neuts (auto) Absolute Nucleated RBC Band Neutrophils % Nucleated RBC % Platelet Estimate Hypochromasia Anisocytosis Schistocytes Sodium Potassium Chloride Carbon Dioxide Anion Gap BUN Creatinine Estim Creat Clear Calc Estimated GFR Glucose POC Capillary Glucose 183 H 191 H Calcium Phosphorus Magnesium Total Bilirubin AST ALT Alkaline Phosphatase Total Protein Albumin M.pneumoniae IgM Titer <770 07/31/25 08/01/25 08/01/25 20:34 05:37 07:40 WBC 8.0 RBC 2.62 L Hgb 7.8 L Hct 26.6 L MCV 101.5 H MCH 29.8 MCHC 29.3 L RDW 17.2 H Plt Count 219 MPV 9.6 Immature Gran % (Auto) 1.1 H Neut % (Auto) 76.1 H Lymph % (Auto) 9.9 L [place] % (Auto) 10.1 H Eos % (Auto) 2.6 Baso % (Auto) 0.2 Lymph # (Auto) 0.79 L [place] # (Auto) 0.8 H Eos # (Auto) 0.2 Baso # (Auto) 0.0 Abs Immat Gran (auto) 0.09 H Absolute Neuts (auto) 6.1 Absolute Nucleated RBC 0.040 H Band Neutrophils % Not Reportable Nucleated RBC % 0.5 H Platelet Estimate Adequate Hypochromasia 1+ Anisocytosis 1+ Schistocytes None seen Sodium 139 Potassium 4.3 Chloride 100 Carbon Dioxide 24 Anion Gap 15 H BUN 41 H Creatinine 5.28 H Estim Creat Clear Calc 9 Estimated GFR 8 L Glucose 193 H POC Capillary Glucose 279 H 183 H Calcium 9.8 Phosphorus 6.0 H Magnesium 1.9 Total Bilirubin 0.8 AST 18 ALT 24 Alkaline Phosphatase 144 H Total Protein 6.6 Albumin 3.8 M.pneumoniae IgM Titer 08/01/25 10:58 WBC RBC Hgb Hct MCV MCH MCHC RDW Plt Count MPV Immature Gran % (Auto) Neut % (Auto) Lymph % (Auto) [place] % (Auto) Eos % (Auto) Baso % (Auto) Lymph # (Auto) [place] # (Auto) Eos # (Auto) Baso # (Auto) Abs Immat Gran (auto) Absolute Neuts (auto) Absolute Nucleated RBC Band Neutrophils % Nucleated RBC % Platelet Estimate Hypochromasia Anisocytosis Schistocytes Sodium Potassium Chloride Carbon Dioxide Anion Gap BUN Creatinine Estim Creat Clear Calc Estimated GFR Glucose POC Capillary Glucose 173 H Calcium Phosphorus Magnesium Total Bilirubin AST ALT Alkaline Phosphatase Total Protein Albumin M.pneumoniae IgM Titer Quality VTE Prophylaxis VTE prophylaxis: pharmacologic ordered
--- NOTE | 2025-08-01 12:01 | P.PNNP_ITS ---
Progress Note: A&P Assessment and Plan (1) ESRD (end stage renal disease): Code(s): N18.6 - End stage renal disease Status: Chronic Assessment and Plan: * HD today * transition back Tue/Tue/Tuesday dialysis schedule next * getting HD on //Tuesday this week * follow electrolytes, volume status, and clearance (2) Hypotension: Code(s): I95.9 - Hypotension, unspecified Status: Acute Assessment and Plan: * acute on chronic * etiology? * early sepsis/infection? * baseline systolic BP runs in the 90s for the last month * recently started on midodrine therapy from recent [facility] admission * follow culture data * off vasopressor therapy currently * resumed on midodrine therapy (3) AMS (altered mental status): Qualifiers: Altered mental status type: transient alteration of awareness Qualified Code(s): R40.4 - Transient alteration of awareness Code(s): R41.82 - Altered mental status, unspecified Status: Acute Assessment and Plan: * improvement noted * despite underlying dementia, usually alert and oriented x 3 * head CT negative * due to hypotension versus early sepsis/infection(?) * follow trend of mentation with current interventions (4) Acute hypoxic respiratory failure: Code(s): J96.01 - Acute respiratory failure with hypoxia Status: Acute Assessment and Plan: * as noted since admission * presumably due to volume overload (CHF + pulmonary edema) and recent pneumonia * admission imaging noted * fluid removal challenging in the context of hypotension (presumably a problem during recent hospitalization at [facility] as well) * ongoing fluid removal with HD/DUF * follow respiratory status (5) Urinary tract infection: Qualifiers: Hematuria presence: without hematuria Urinary tract infection type: a cute cystitis Qualified Code(s): N30.00 - Acute cystitis without hematuria Code(s): N39.0 - Urinary tract infection, site not specified Status: Acute Assessment and Plan: * admission UA suggestive * follow culture data * on antibiotics (6) Volume overload: Code(s): E87.70 - Fluid overload, unspecified Status: Acute Assessment and Plan: * as suggested by evidence to date: * imaging with CHF findings and pulmonary edema * 6 - 7kg above dry weight per outpatient dialysis clinic when seen on 10/6 * aggressive fluid removal with HD and DUF as tolerated by hemodynamics * Echo from admission to [facility] noted (07/23/25): * left ventricle is normal in size with estimated EF of 50 - 55% * right ventricular systolic function is at the lower limit of normal * moderate to severe aortic stenosis * no evidence of aortic valve regurgitation * mild to moderate mitral and pulmonic regurgitation * no evidence of mitral stenosis * moderate tricuspid regurgitation * moderate pulmonary hypertension * mildly dilated ascending aorta * planning daily dialysis/ultrafiltration (7) Anemia: Qualifiers: Anemia type: due to chronic kidney disease Chronic kidney disease stage: on chronic dialysis Qualified Code(s): N18.6 - End stage renal disease; D63.1 - Anemia in chronic kidney disease; Z99.2 - Dependence on renal dialysis Code(s): D64.9 - Anemia, unspecified Status: Chronic Assessment and Plan: * due to ESRD and acute illness * anemia studies noted: * evidence of mild iron deficiency * follow trend of H/H * Epogen with HD (8) DM type 2 (diabetes mellitus, type 2): Onset Date: ~2018 Qualifiers: Diabetes mellitus complication status: without complication Diabetes mellitus halfway insulin use: without buttermaker helper use Qualified Code(s): E11.9 - Type 2 diabetes mellitus without complications Code(s): E11.9 - Type 2 diabetes mellitus without complications Status: Chronic Assessment and Plan: * follow accu-cheks * glycemic control per hospitalist Will continue to follow. L Subjective Date/time seen: 08/01/25 12:01 Interval history: Following for end stage renal disease on hemodialysis. Tolerated dry ultrafiltration yesterday without any issues or problems; tolerating dialysis treatment at the time of my visit (seen on HD at 11:50am); remains off vasopressor therapy currently; earlier this AM, she was combative & agitated and pulled out her femoral central line so currently in restraints for safety; more awake and alert when seen. Exam 2 Narrative: General: elderly but WD/WN female in NAD Heart: IRRR, normal S1 and S2; no rub Lungs: coarse breath sounds; decreased at bases Abdomen: obese but soft, nontender, nondistended, positive bowel sounds Extremities: no cyanosis or clubbing; 2+ edema (UEs and LEs) Skin: warm and intact Objective Data Vital Signs Vital Signs: Vital Signs Temp Pulse Resp BP Pulse Ox O2 Del Method O2 Flow Rate 08/01/25 12:00 98.7 F 104 H 32 H 89/73 L 99 08/01/25 11:45 105 H 93/47 L 08/01/25 11:30 104 H 95/65 L 08/01/25 11:15 106 H 105/68 08/01/25 11:00 98.7 F 108 H 29 H 100/68 100 08/01/25 11:00 104 H 100/68 08/01/25 10:45 107 H 115/68 08/01/25 10:30 113 H 122/76 08/01/25 10:15 113 H 124/78 08/01/25 10:00 109 H 08/01/25 10:00 99.3 F 110 H 25 H 119/74 99 08/01/25 10:00 113 H 119/74 08/01/25 09:45 106 H 126/75 08/01/25 09:28 111 H 118/76 08/01/25 09:15 2 08/01/25 09:15 99.2 F 118 H 28 H 108/76 99 08/01/25 09:00 99.2 F 118 H 36 H 108/76 98 08/01/25 08:00 113 H 38 H 100 Nasal Cannula 2 08/01/25 08:00 111 H 08/01/25 08:00 98.5 F 119 H 33 H 109/75 97 08/01/25 06:00 98.4 F 95 18 102/81 99 08/01/25 06:00 95 08/01/25 06:00 95 102/81 08/01/25 05:00 104 H 23 H 106/66 97 08/01/25 04:00 97.8 F 113 H 25 H 113/68 100 08/01/25 04:00 113 H 08/01/25 04:00 110 H 21 H 98 Nasal Cannula 2 08/01/25 04:00 110 H 107/73 08/01/25 03:00 102 H 28 H 95/65 L 98 08/01/25 02:00 107 H 28 H 107/69 96 08/01/25 02:00 107 H 08/01/25 02:00 107 H 107/69 08/01/25 01:00 94 16 108/69 98 08/01/25 00:00 97.6 F 97 18 109/65 98 08/01/25 00:00 97 08/01/25 00:00 104 H 109/65 07/31/25 23:52 85 97 Nasal Cannula 2 07/31/25 23:00 92 28 H 110/70 96 07/31/25 22:00 94 99/61 L 07/31/25 22:00 94 07/31/25 22:00 94 27 H 99/61 L 96 07/31/25 21:45 104 H 124/68 07/31/25 21:00 105 H 23 H 126/71 97 07/31/25 20:00 98.4 F 98 23 H 119/81 96 07/31/25 20:00 98 07/31/25 20:00 114 H 96 Nasal Cannula 2 07/31/25 20:00 125 H 115/61 07/31/25 19:00 106 H 20 102/68 100 07/31/25 18:00 107 H 22 H 87/59 L 98 07/31/25 18:00 102 H 07/31/25 18:00 109 H 87/59 L 07/31/25 17:00 106 H 18 106/86 99 07/31/25 16:00 105 H 103/61 07/31/25 16:00 95 17 95 Nasal Cannula 2 07/31/25 16:00 98.9 F 94 18 103/61 100 07/31/25 16:00 94 07/31/25 15:00 118 H 17 116/69 99 07/31/25 14:00 108 H 23 H 123/70 96 07/31/25 14:00 118 H 07/31/25 14:00 114 H 116/80 07/31/25 13:38 103 H 18 116/74 98 07/31/25 13:00 118 H 22 H 116/80 97 07/31/25 12:38 127 H 26 H 93/65 L 95 Intake/Output Intake/Output: Intake & Output 07/29/25 07/30/25 07/31/25 08/01/25 23:59 23:59 23:59 23:59 Intake Total 1390.0 1010.3 956.0 120 Output Total 20 2510 4000 0 Balance 1370.0 -1499.7 -3044.0 120 Meds/Results Medications: Active Medications Generic Name Dose Route Start Last Admin Trade Name Freq PRN Reason Stop Dose Admin Acetaminophen 650 mg 07/29/25 15:59 07/31/25 08:34 Acetaminophen 325 Mg Tablet PO 650 mg Q4H PRN Administration Mild Pain (1-3) or Fever Acetaminophen 650 mg 07/29/25 17:04 Acetaminophen 650 Mg Suppository RECTAL Q6H PRN Mild Pain (1-3) or Fever Albuterol/Ipratropium 3 ml 07/29/25 19:52 Ipratropium 0.5 Mg/Albuterol Sulfate 2.5 Mg (Base) Ampul.Neb 3 Ml INHALATION Q4HRT PRN Shortness of Breath. Apixaban 5 mg 07/30/25 09:00 07/30/25 17:22 Apixaban 5 Mg Tablet PO 5 mg On Hold: 07/31/25 07:18 BID BIANKA Administration Aripiprazole 1 mg 07/31/25 21:00 07/31/25 20:38 Aripiprazole 1 Mg Tablet PO 1 mg HS BIANKA Administration Aripiprazole 2 mg 07/31/25 21:00 07/31/25 20:25 Aripiprazole 2 Mg Tablet BY MOUTH 2 mg HS BIANKA Administration Buspirone HCl 5 mg 07/31/25 17:00 08/01/25 08:23 Buspirone Hcl 5 Mg Tablet BY MOUTH 5 mg TID BIANKA Administration Dextrose 12.5 gm 07/29/25 19:52 Dextrose 50% 25 Gm/50 Ml Syringe IV PUSH PRN PRN Hypoglycemia Protocol Docusate Sodium 200 mg 07/31/25 17:00 08/01/25 08:23 Docusate Sodium 100 Mg Capsule PO 200 mg BID BIANKA Administration Epoetin Austin-epbx 10,000 units 08/01/25 17:56 08/01/25 10:42 Epoetin [place]-Epbx 10,000 Units/Ml Vial IV PUSH 08/01/25 17:57 10,000 units ONCE ONE Administration Glucagon 1 mg 07/29/25 19:52 Glucagon For Inj 1 Mg Vial IM PRN PRN Hypoglycemia Protocol Glucose 15 gm 07/29/25 19:52 Glucose Oral Gel 15 Gm Of Glucse In 37.5 Gm Tube PO PRN PRN Hypoglycemia Protocol Norepinephrine Bitartrate 8 mg in 250 mls @ 0 mls/hr 07/29/25 15:25 08/01/25 06:00 Levophed 8 Mg/D5w 250 Ml IV CONT 0 mcg/min .Q0M BIANKA 0 mls/hr Protocol Titration Dextrose 1,000 mls @ 100 mls/hr 07/29/25 19:52 Dextrose 5% 1,000 Ml IVPB PRN PRN Hypoglycemia Protocol Albumin Human 50 mls @ 999 mls/hr 07/30/25 05:49 07/31/25 08:55 Albutein IVPB 08/29/25 05:48 999 mls/hr Q10M PRN Administration HYPOTENSION Piperacillin Sod/Tazobactam 50 mls @ 100 mls/hr 07/30/25 14:00 08/01/25 05:38 Sod 2.25 gm/ Sodium Chloride IVPB 08/04/25 23:59 100 mls/hr Q8H BIANKA Administration Insulin Aspart 4 - 8 units 07/31/25 08:00 08/01/25 12:01 Insulin Aspart (*Bkc) 100 Units/Ml SUB-Q Not Given TIDWM [facility] Protocol Insulin Aspart 2 - 4 units 07/30/25 21:00 07/31/25 20:36 Insulin Aspart (*Bkc) 100 Units/Ml SUB-Q 2 units HS BIANKA Administration Protocol Insulin Glargine 15 units 07/30/25 09:00 07/30/25 09:16 Insulin Glargine (*Bkc) 100 Units/Ml SUB-Q Not Given On Hold: 07/30/25 13:46 QAM BIANKA Insulin Glargine 5 units 07/31/25 10:20 08/01/25 08:23 Insulin Glargine (*Bkc) 100 Units/Ml SUB-Q 5 units DAILY BIANKA Administration Memantine 5 mg 08/02/25 09:00 Memantine 5 Mg Tablet PO 08/09/25 08:59 QAM BIANKA Memantine 5 mg 08/09/25 09:00 Memantine 5 Mg Tablet PO Q12HR BIANKA Methylphenidate HCl 10 mg 08/01/25 08:00 08/01/25 08:23 Methylphenidate Hcl (*Crx) 10 Mg Tablet PO 10 mg 0800,1200 BIANKA Administration Midodrine 10 mg 07/31/25 13:00 08/01/25 08:23 Midodrine Hcl 10 Mg Tablet PO 10 mg TID BIANKA Administration Mupirocin 1 applic 07/29/25 21:00 08/01/25 08:24 Mupirocin 2% Oint 22 Gm Tube EACH NARE 08/03/25 09:01 1 applic Q12HR BIANKA Administration Naloxone HCl 0.1 mg 07/29/25 20:26 Naloxone Hcl 0.4 Mg/Ml Vial IV PUSH Q5MIN PRN Sedation Non-Formulary Medication 30 mg 08/01/25 18:00 Tenapanor [Xphozah] PO 08/31/25 17:59 QPM BIANKA Ondansetron HCl 4 mg 07/29/25 15:59 Ondansetron Inj 4 Mg/2 Ml Vial IV PUSH Q4H PRN Nausea Pantoprazole Sodium 40 mg 07/30/25 09:00 08/01/25 08:24 Pantoprazole Sodium Iv 40 Mg Vial IV PUSH 40 mg QAM BIANKA Administration Rosuvastatin Calcium 10 mg 08/01/25 09:00 08/01/25 08:22 Rosuvastatin 10 Mg Tablet PO 10 mg DAILY BIANKA Administration Sertraline HCl 50 mg 08/01/25 09:00 08/01/25 08:23 Sertraline Hcl 50 Mg Tablet PO 50 mg DAILY BIANKA Administration Sodium Chloride 10 ml 07/29/25 22:00 08/01/25 05:39 Central Line Flush IV PUSH 10 ml Q8HR BIANKA Administration Sodium Chloride 20 ml 07/29/25 15:58 Central Line Flush IV PUSH PRN PRN after blood draws Vancomycin HCl 1 each 07/29/25 19:25 Vancomycin For Hemodialysis IVPB 08/04/25 23:59 PRN PRN Vancomycin Protocol Radiology Results: ITS Impressions Head CT 07/29/25 17:35 Impression: 1.No acute intracranial abnormality. Chest/Abdomen/Pelvis CT 07/29/25 18:21 IMPRESSION: CHEST- 1. Mild interstitial pulmonary edema with small left pleural effusions and bibasilar atelectasis. 2. No other acute abnormality. ABDOMEN/PELVIS- 1. No acute abnormality. 2. Additional findings as above. Chest X-Ray 08/01/25 08:14 IMPRESSION: 1. Mild bibasilar opacities which could represent atelectasis and/or pneumonia. 2. Cardiomegaly with enlargement of the central pulmonary arteries consistent with pulmonary arterial hypertension. Labs Labs: Laboratory Tests 08/01/25 05:37 10/09/25 05:37 Calcium 9.8 Phosphorus 6.0 H Magnesium 1.9 Total Bilirubin 0.8 AST 18 ALT 24 Alkaline Phosphatase 144 H Total Protein 6.6 Albumin 3.8 Microbiology 07/29/25 15:45 Blood Blood Culture - Preliminary 07/29/25 14:23 Blood Blood Culture - Preliminary
--- NOTE | 2025-08-01 12:32 | PCNEURO ---
Pt is currently receiving dialysis. Nurse contacting me with time frame tomorrow.
--- NOTE | 2025-08-01 14:13 | P.CONNEU_ITS ---
Assessment and Plan Assessment and plan (1) Dementia: Qualifiers: Dementia type: unspecified type Dementia severity: moderate Dementia behavioral or psychological symptom: with agitation Qualified Code(s): F03.B11 - Unspecified dementia, moderate, with agitation Code(s): F03.90 - Unspecified dementia, unspecified severity, without behavioral disturbance, psychotic disturbance, mood disturbance, and anxiety Status: Chronic (2) Acute metabolic encephalopathy: Code(s): G93.41 - Metabolic encephalopathy Status: Acute (3) Orthostatic hypotension: Code(s): I95.1 - Orthostatic hypotension Status: Acute (4) Benign essential hypertension: Code(s): I10 - Essential (primary) hypertension Status: Chronic (5) Hypotension: Code(s): I95.9 - Hypotension, unspecified Status: Acute (6) A-fib: Qualifiers: Atrial fibrillation type: unspecified Qualified Code(s): I48.91 - Unspecified atrial fibrillation Code(s): I48.91 - Unspecified atrial fibrillation Status: Acute (7) DM type 2 (diabetes mellitus, type 2): Onset Date: ~2018 Qualifiers: Diabetes mellitus [facility] insulin use: without terminal carman use Diabetes mellitus complication status: without complication Qualified Code(s): E11.9 - Type 2 diabetes mellitus without complications Code(s): E11.9 - Type 2 diabetes mellitus without complications Status: Chronic (8) Hearing loss of both ears: Qualifiers: Hearing loss type: unspecified Qualified Code(s): H91.93 - Unspecified hearing loss, bilateral Code(s): H91.93 - Unspecified hearing loss, bilateral Status: Acute (9) ESRD (end stage renal disease): Code(s): N18.6 - End stage renal disease Status: Chronic (10) CHELSEA on CPAP: Code(s): G47.33 - Obstructive sleep apnea (adult) (pediatric); Z99.89 - Dependence on other enabling machines and devices Status: Acute Plan on examination the patient is a does appear to have some underlying cognitive impairment since he is fairly quiet and thought to be at baseline at this time. She has had significant changes including aggression or combativeness. I will suggest an EEG. CT scan of brain was performed which I reviewed which did not show any significant abnormalities. In addition to baseline dementia she may have fluctuance in mental status due to metabolic problems or sometimes side effects from medications. I would suggest to keep her on Namenda 5 mg a day and gradually increase the dose at weekly intervals to target of 10 mg twice a day From 4th week. Consult date: 08/01/25 HPI: Maria R Barrientos is a 80 year old female With history of end-stage renal disease on hemodialysis presented to the hospital after being discharged from [facility] with change in mental status. She was also combative and required strain for that. When I came to see her she is already on hemodialysis and she has a lot more calmer now. She also history of obstructive sleep apnea and she is on CPAP. She has history of cardiac disease and last echocardiogram shown a section fraction of 35-40%. Review of the records revealed that she also has been diagnosed as having dementia, breast cancer, atrial fibrillation, deep vein thrombosis, Castleman disease, CHF, diabetes mellitus, ESBL, myocardial infarction and supplemental oxygen at night. There is also history of stroke although was not able to get any description or detail of that Enrique. The patient denies any pain. She is somewhat hard of hearing and hence the interview was somewhat limited due to that. However she is fairly com does answer the questions. Review of Systems 2 Review of Systems: Difficult to obtain a detailed review although she denies any specific symptoms. She is hard of hearing. [facility] Past Medical History Medical History CHF (congestive heart failure) Echocardiogram 2021 from [facility]: Left ventricular size mildly enlarged left ventricular systolic function moderately depressed with EF of 35-40%, mild concentric left ventricular hypertrophy, diastolic dysfunction indeterminate due to AFib, moderate global hypokinesis, moderate right ventricular enlargement with normal right ventricular systolic function, severe left atrial volume overload greater than 48 mL, moderate right atrial enlargement, mildly dilated aortic root mild aortic regurgitation Chronic indwelling Braswell catheter Anxiety Frequent UTI BMI 38.0-38.9,adult Chronic back pain Seasonal allergies Hypercalcemia Cataract of right eye CHELSEA on CPAP Intolerant to CPAP Narcolepsy Poorly documented Dementia Depression Knee pain Thoracic aortic aneurysm Vitamin B12 deficiency Constipation History of orthostatic hypotension Left ventricular outflow obstruction echocardiogram May 2020 Stress incontinence in female Osteoporosis DEXA scan 08/14/2020 Hearing loss of both ears Vitamin D deficiency Carotid bruit less than 50% stenosis of right internal carotid artery a on Doppler 07/01/2020 Kidney stones of the left kidney with multiple lithotripsies Cancer of right breast status post radiation and chemotherapy Thyroid nodule (~2014) Overactive bladder A-fib Hyperlipidemia 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 DM type 2 (diabetes mellitus, type 2) (~2018) Benign essential hypertension Surgical History Surgical History Status post right cataract extraction Status post cataract extraction and insertion of intraocular lens of right eye Status post right breast lumpectomy Family History Family History Sibling Diabetes mellitus Father Diabetes mellitus CHF (congestive heart failure) Kidney failure Mother Cervical cancer Ovarian cancer Sibling Diabetes mellitus Brain bleed Hypertension Cerebrovascular accident Social History Social History Social History: She resides at [facility]. She is . She is a lifelong nonsmoker and does not drink alcohol or use illicit substances. She is retired from the [employer]. Code status: Full code Surrogate decision maker: Daughter Smoking status: Never smoker Second hand tobacco smoke exposure: No Alcohol intake: never Substance use: never Substance use type: does not use Do You Feel Safe in your Home?: Yes Lack of Transportation: No Lack of Food: Never True Current Housing: I Have Housing Concerned About Future Housing: No Difficulty Paying Gas/Electric Bills: No Difficulty Paying for Meds: No Currently Unemployed: No Education: High School Diploma/GED Difficulty w/ Childcare or Family Care: No Living arrangements: long-term Occupation/Education: retired 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 Gender identity (if verbalized by the patient): Female Sexual Orientation (if Verbalized by the Patient): Straight or Heterosexual Spiritual care concerns: No Agree to blood products: Yes Meds Home Medications and Allergies Home Medications ?Medication ?Instructions ?Recorded ?Confirmed ?Type cyanocobalamin (vitamin B-12) 1,000 mcg PO DAILY 08/1807/29/25 History 1,000 mcg tablet ferrous sulfate 324 mg (65 mg 325 mg PO EVERY OTHER DA Y 01/11/22 07/29/25 History iron) tablet,delayed release cranberry 500 mg capsule 500 mg PO TID 01/16/2407/29 History nitroglycerin 0.4 mg sublingual 0.4 mg sublingual Q5M PRN Chest 02/03/24 07/29/25 Rx tablet Pain #25 tabs insulin aspart U-100 100 unit/mL See Rx Instructions s ubcut 03/21/24 07/29/25 Rx subcutaneous solution (Novolog .COMPLEX #10 mL U-100 Insulin aspart) fluconazole 150 mg tablet 150 mg PO WEEKLY 04/24/24 History blood-glucose sensor (FreeStyle #1 ea 05/29/24 5 Rx Robbi 3 Sensor device) ondansetron 4 mg disintegrating 4 mg PO Q6H PRN nausea and vomiting 09/04/24 07/29/25 History tablet apixaban 5 mg tablet (Eliquis) 5 mg PO BID #180 tabs 0 11/07/24 07/29/25 Rx dextromethorphan-guaifenesin ER 60 1 tablet PO Q12H LA N congestion 11/21/24 07/29/25 History mg-1,200 mg tab,extend release,12hr (Mucinex DM) pen needle, diabetic 32 gauge x #100 ea 11/30/2407/29 Rx 32 (BD Lindsay 2nd Gen Pen Needle) cetirizine 10 mg capsule (All Day 10 mg PO DAILY PRN a llergy 01/21/25 07/29/25 Rx Allergy (cetirizine)) symptoms #90 caps simethicone 125 mg capsule (Gas-X 250 mg (2 x 125 mg) PO DAILY PRN 02/18/25 07/29/25 Rx Extra Strength) abdominal distention #20 cap s buspirone 5 mg tablet See Rx Instructions .Route 0 02/25/25 07/29/25 Rx .COMPLEX #270 tabs acetaminophen 500 mg capsule 500 mg PO Q6H PRN cHONIC BACK PAIN 02/26/25 07/29/25 History docusate sodium 100 mg capsule 200 mg PO BID 02/26/25 07/29/25 History Thigh High SANDOVAL hose #3 pkgs 04/30/25 07/29/25 Rx aripiprazole 2 mg tablet See Rx Instructions .Route 0 04/30/25 07/29/25 Rx .COMPLEX #135 tabs rosuvastatin 10 mg tablet 10 mg PO DAILY #90 tabs 06/1707/29/25 Rx sertraline 50 mg tablet 50 mg PO DAILY #90 tabs 06/1707/29/25 Rx nystatin 100,000 unit/gram topical 1 applic topical BI D #60 grams 06/04/25 07/29/25 Rx powder methylphenidate HCl 10 mg tablet 10 mg PO BIDWMEAL #60 tabs 07/04/25 07/29/25 Rx acetaminophen 650 mg 650 mg PO Q4H PRN GENERAL 07/29/25 History tablet,extended release DISCOMFORT metoprolol tartrate 25 mg tablet 25 mg PO BID 07/06/25 07/29/25 History tenapanor 30 mg tablet (Xphozah) 30 mg PO QPM 07/06/25 07/29/25 History tizanidine 2 mg capsule (Zanaflex) 2 mg PO Q8H PRN mus jacob spasticity 07/06/25 07/29/25 History lidocaine-prilocaine 2.5 %-2.5 % 60 g topical WITH CATIE LYSIS PRN for 07/11/25 07/29/25 Rx topical cream dialysis #60 grams tramadol 50 mg tablet 50 mg PO QID PRN pain #50 ta bs 07/17/25 07/29/25 Rx cefdinir 300 mg capsule 300 mg PO DAILY 07/29/2504/17 History doxycycline hyclate 100 mg capsule 100 mg PO Q12H 04/1707/29/25 History furosemide 40 mg tablet (Lasix) 40 mg PO BID 07/29/25 07/29/25 History insulin glargine 100 unit/mL (3 15 unit (0.15 mL) subc ut QAM #15 mL 07/29/25 07/29/25 Rx mL) subcutaneous pen (Lantus Solostar U-100 Insulin) ipratropium 0.5 mg-albuterol 3 mg 3 ml inhalation Q4H PRN Shortness 07/29/25 07/29/25 History (2.5 mg base)/3 mL nebulization of Breath. soln midodrine 10 mg tablet 10 mg PO BID 07/29/25 History Allergies Allergy/AdvReac Type Severity Reaction Status Date / Time Sulfa (Sulfonamide Allergy Severe Rash Verified 07/29/25 17:57 Antibiotics) bupropion (From Wellbutrin) Allergy Intermediate Unknown Verified 07/29/25 17:57 Vital Signs Vital Signs - 24 hr 07/31/25 15:00 07/31/25 16:00 07/31/25 16:00 Temperature 98.9 F Pulse Rate 118 H 94 94 Respiratory Rate 17 18 Blood Pressure 116/69 103/61 Pulse Oximetry 99 100 Oxygen Delivery Oxygen Flow Rate 07/31/25 16:00 07/31/25 16:00 07/31/25 17:00 Temperature Pulse Rate 95 105 H 106 H Respiratory Rate 17 18 Blood Pressure 103/61 106/86 Pulse Oximetry 95 99 Oxygen Delivery Nasal Cannula Oxygen Flow Rate 2 07/31/25 18:00 07/31/25 18:00 07/31/25 18:00 Temperature Pulse Rate 109 H 102 H 107 H Respiratory Rate 22 H Blood Pressure 87/59 L 87/59 L Pulse Oximetry 98 Oxygen Delivery Oxygen Flow Rate 07/31/25 19:00 07/31/25 20:00 07/31/25 20:00 Temperature Pulse Rate 106 H 125 H 114 H Respiratory Rate 20 Blood Pressure 102/68 115/61 Pulse Oximetry 100 96 Oxygen Delivery Nasal Cannula Oxygen Flow Rate 2 07/31/25 20:00 07/31/25 20:00 07/31/25 21:00 Temperature 98.4 F Pulse Rate 98 98 105 H Respiratory Rate 23 H 23 H Blood Pressure 119/81 126/71 Pulse Oximetry 96 97 Oxygen Delivery Oxygen Flow Rate 07/31/25 21:45 07/31/25 22:00 07/31/25 22:00 Temperature Pulse Rate 104 H 94 94 Respiratory Rate 27 H Blood Pressure 124/68 99/61 L Pulse Oximetry 96 Oxygen Delivery Oxygen Flow Rate 07/31/25 22:00 07/31/25 23:00 07/31/25 23:52 Temperature Pulse Rate 94 92 85 Respiratory Rate 28 H Blood Pressure 99/61 L 110/70 Pulse Oximetry 96 97 Oxygen Delivery Nasal Cannula Oxygen Flow Rate 2 08/01/25 00:00 08/01/25 00:00 08/01/25 00:00 Temperature 97.6 F Pulse Rate 104 H 97 97 Respiratory Rate 18 Blood Pressure 109/65 109/65 Pulse Oximetry 98 Oxygen Delivery Oxygen Flow Rate 08/01/25 01:00 08/01/25 02:00 08/01/25 02:00 Temperature Pulse Rate 94 107 H 107 H Respiratory Rate 16 Blood Pressure 108/69 107/69 Pulse Oximetry 98 Oxygen Delivery Oxygen Flow Rate 08/01/25 02:00 08/01/25 03:00 08/01/25 04:00 Temperature Pulse Rate 107 H 102 H 110 H Respiratory Rate 28 H 28 H Blood Pressure 107/69 95/65 L 107/73 Pulse Oximetry 96 98 Oxygen Delivery Oxygen Flow Rate 08/01/25 04:00 08/01/25 04:00 08/01/25 04:00 Temperature 97.8 F Pulse Rate 110 H 113 H 113 H Respiratory Rate 21 H 25 H Blood Pressure 113/68 Pulse Oximetry 98 100 Oxygen Delivery Nasal Cannula Oxygen Flow Rate 2 08/01/25 05:00 08/01/25 06:00 08/01/25 06:00 Temperature Pulse Rate 104 H 95 95 Respiratory Rate 23 H Blood Pressure 106/66 102/81 Pulse Oximetry 97 Oxygen Delivery Oxygen Flow Rate 08/01/25 06:00 08/01/25 08:00 08/01/25 08:00 Temperature 98.4 F 98.5 F Pulse Rate 95 119 H 111 H Respiratory Rate 18 33 H Blood Pressure 102/81 109/75 Pulse Oximetry 99 97 Oxygen Delivery Oxygen Flow Rate 08/01/25 08:00 08/01/25 08:00 08/01/25 09:00 Temperature 99.2 F Pulse Rate 113 H 111 H 118 H Respiratory Rate 38 H 36 H Blood Pressure 108/76 Pulse Oximetry 100 98 Oxygen Delivery Nasal Cannula Oxygen Flow Rate 2 08/01/25 09:15 08/01/25 09:15 08/01/25 09:28 Temperature 99.2 F Pulse Rate 118 H 111 H Respiratory Rate 28 H Blood Pressure 108/76 118/76 Pulse Oximetry 99 Oxygen Delivery Oxygen Flow Rate 2 08/01/25 09:45 08/01/25 10:00 08/01/25 10:00 Temperature 99.3 F Pulse Rate 106 H 113 H 110 H Respiratory Rate 25 H Blood Pressure 126/75 119/74 119/74 Pulse Oximetry 99 Oxygen Delivery Oxygen Flow Rate 08/01/25 10:00 08/01/25 10:00 08/01/25 10:15 Temperature Pulse Rate 109 H 89 113 H Respiratory Rate Blood Pressure 124/78 Pulse Oximetry Oxygen Delivery Oxygen Flow Rate 08/01/25 10:30 08/01/25 10:45 08/01/25 11:00 Temperature Pulse Rate 113 H 107 H 104 H Respiratory Rate Blood Pressure 122/76 115/68 100/68 Pulse Oximetry Oxygen Delivery Oxygen Flow Rate 08/01/25 11:00 08/01/25 11:15 08/01/25 11:30 Temperature 98.7 F Pulse Rate 108 H 106 H 104 H Respiratory Rate 29 H Blood Pressure 100/68 105/68 95/65 L Pulse Oximetry 100 Oxygen Delivery Oxygen Flow Rate 08/01/25 11:45 08/01/25 12:00 08/01/25 12:00 Temperature 98.7 F Pulse Rate 105 H 104 H 99 Respiratory Rate 32 H Blood Pressure 93/47 L 89/73 L Pulse Oximetry 99 Oxygen Delivery Oxygen Flow Rate 08/01/25 12:00 08/01/25 12:00 08/01/25 12:01 Temperature Pulse Rate 99 98 103 H Respiratory Rate 29 H Blood Pressure 108/89 89/73 L Pulse Oximetry 100 Oxygen Delivery Nasal Cannula Oxygen Flow Rate 2 08/01/25 12:15 08/01/25 12:30 08/01/25 12:45 Temperature Pulse Rate 100 97 105 H Respiratory Rate Blood Pressure 104/66 104/70 104/63 Pulse Oximetry Oxygen Delivery Oxygen Flow Rate 08/01/25 13:00 08/01/25 13:00 08/01/25 13:15 Temperature 98.1 F Pulse Rate 116 H 102 H 113 H Respiratory Rate 21 H Blood Pressure 108/89 108/89 106/58 L Pulse Oximetry 99 Oxygen Delivery Oxygen Flow Rate 08/01/25 13:28 08/01/25 13:35 08/01/25 14:00 Temperature 98.7 F Pulse Rate 109 H 114 H 112 H Respiratory Rate 21 H Blood Pressure 110/59 L 108/69 Pulse Oximetry 98 Oxygen Delivery Oxygen Flow Rate 08/01/25 14:00 Temperature Pulse Rate 112 H Respiratory Rate 20 Blood Pressure 108/69 Pulse Oximetry 95 Oxygen Delivery Oxygen Flow Rate Exam 2 Narrative: Fully conscious alert and oriented to self. Unable to tell me the month or year but knew the name of the hospital however I noted that she was reading the name of the hospital on my badge. No aphasia or dysarthria. Examination head and neck shows no evidence of external trauma. No nuchal rigidity. Cranial nerves pupils were equal reacting. Visual flores by confrontation are normal. There is no facial asymmetry. Facial sensation normal. Tongue was midline. Other cranial normal limits. Motor system normal power and tone in both upper and lower limbs. Deep tendon reflexes appear decreased but no asymmetry was noted. Sensory examination is grossly intact. No involuntary movements are seen. Results Labs 08/01/25 05:37 08/01/25 05:37 Labs: Short CBC 08/01/25 Range/Units 05:37 WBC 8.0 (4.5-10.0) K/mm3 Hgb 7.8 L (12.0-15.0) g/dL Hct 26.6 L (37.0-47.0) % Plt Count 219 (150-375) k/mm3 BMP 08/01/25 05:37 Sodium 139 Potassium 4.3 Chloride 100 Carbon Dioxide 24 BUN 41 H Creatinine 5.28 H Glucose 193 H Calcium 9.8 Liver Function 08/01/25 Range/Units 05:37 Total Bilirubin 0.8 (0.2-1.3) mg/dL AST 18 (14-36) U/L ALT 24 (6-35) U/L Alkaline Phosphatase 144 H (38-126) U/L Albumin 3.8 (3.5-5.1) g/dL
[2025-08-01] MEDS: INSULIN ASPART (*BKC) 100 UNITS/ML SUB-Q ×2 (16:57→20:19)
[2025-08-01] MEDS: TENAPANOR 30 MG PO (18:00)
[2025-08-01] MEDS: [UNRECOGNIZED DRUG - OTHER] PO (18:00)
[2025-08-02] VITALS (26 sets, daily range): BP systolic 65–126; BP diastolic 32–99; PULSE 89–114; RESP 19–27; TEMP 36.3–37.1; O2SAT 95–100
[2025-08-02] MEDS: PIPERACILLIN/TAZOBACTAM SOD 2.25 GM in SODIUM CHLORIDE 0.9% IV 50 ML 100 ML IVPB ×2 (05:20→17:24)
[2025-08-02 05:28] LABS: Hematocrit 28.6 % (37.0-47.0); Hemoglobin 8.5 g/dL (12.0-15.0); Immature Granulocyte Percent A 0.8 % (0-0.5); Lymphocytes Absolute Auto 0.83 K/mm3 (0.9-3.2); Mean Corpuscular HGB Conc 29.7 g/dl (32-36); Mean Corpuscular Hemoglobin 29.6 pg (26-34); Mean Corpuscular Volume 99.7 fl (80-100); Nucleated Red Blood Cells Absolute Auto 0.060 K/mm3 (0.0-0.012); Nucleated Red Blood Cells Perc 0.8 % (0.0-0.2); Platelet Count Result 248 k/mm3 (150-375); Red Blood Count 2.87 M/mm3 (4.2-5.4); White Blood Count 7.9 K/mm3 (4.5-10.0)
[2025-08-02 05:48] LABS: Alanine Aminotransferase 25 U/L (6-35); Albumin Level 4.0 g/dL (3.5-5.1); Alkaline Phosphatase 139 U/L (38-126); Anion Gap 12 mmol/L (4-12); Aspartate Amino Transferase 33 U/L (14-36); Bilirubin,Total 1.0 mg/dL (0.2-1.3); Blood Urea Nitrogen 30 mg/dL (7-17); Calcium 10.6 mg/dL (8.4-10.2); Carbon Dioxide 28 mmol/L (22-30); Chloride 98 mmol/L (98-107); Estimated CRCL calculation 14 ml/min; Estimated Glomerular Filt Rate 12; Glucose 201 mg/dL (65-110); Magnesium 2.0 mg/dL (1.6-2.3); Potassium 3.8 mmol/L (3.4-5.0); Sodium 138 mmol/L (137-145); Total Protein 7.1 g/dL (6.3-8.2)
[2025-08-02 06:34] LABS: Anisocytosis 1+; Hypochromasia 1+
[2025-08-02 06:35] LABS: Schistocytes None Seen
[2025-08-02] MEDS: SERTRALINE HCL 50 MG TABLET PO (08:44)
[2025-08-02] MEDS: ACETAMINOPHEN 325 MG TABLET 650 MG PO ×2 (08:44→17:10)
[2025-08-02] MEDS: MEMANTINE 5 MG TABLET PO (08:44)
[2025-08-02] MEDS: MIDODRINE HCL 10 MG TABLET PO ×4 (08:44→22:15)
[2025-08-02] MEDS: APIXABAN 5 MG TABLET PO ×2 (08:44→17:10)
[2025-08-02] MEDS: ROSUVASTATIN 10 MG TABLET PO (08:44)
[2025-08-02] MEDS: DOCUSATE SODIUM 100 MG CAPSULE 200 MG PO ×2 (08:44→17:10)
[2025-08-02] MEDS: MUPIROCIN 2% OINT 22 GM TUBE 1 APPLIC EACH NARE ×2 (08:45→21:42)
[2025-08-02] MEDS: INSULIN GLARGINE (*BKC) 100 UNITS/ML 10 UNITS SUB-Q (08:45)
[2025-08-02] MEDS: PANTOPRAZOLE SODIUM IV 40 MG VIAL IV PUSH (08:45)
[2025-08-02] MEDS: methylPHENIDATE HCL (*CRX) 10 MG TABLET PO ×2 (08:53→14:00)
--- NOTE | 2025-08-02 09:12 | P.PNNP_ITS ---
Progress Note: A&P Assessment and Plan (1) ESRD (end stage renal disease): Code(s): N18.6 - End stage renal disease Status: Chronic Assessment and Plan: * HD tomorrow * transition back Tue/Tue/Tuesday dialysis schedule next week * getting HD on //Tuesday this week * follow electrolytes, volume status, and clearance (2) Hypotension: Code(s): I95.9 - Hypotension, unspecified Status: Acute Assessment and Plan: * acute on chronic * etiology? * early sepsis/infection? * baseline systolic BP runs in the 90s for the last month * recently started on midodrine therapy from recent [facility] admission * follow culture data * off vasopressor therapy currently * resumed on midodrine therapy (3) AMS (altered mental status): Qualifiers: Altered mental status type: transient alteration of awareness Qualified Code(s): R40.4 - Transient alteration of awareness Code(s): R41.82 - Altered mental status, unspecified Status: Acute Assessment and Plan: * improvement noted * despite underlying dementia, usually alert and oriented x 3 * head CT negative * due to hypotension versus early sepsis/infection(?) * follow trend of mentation with current interventions (4) Acute hypoxic respiratory failure: Code(s): J96.01 - Acute respiratory failure with hypoxia Status: Acute Assessment and Plan: * as noted since admission * presumably due to volume overload (CHF + pulmonary edema) and recent pneumonia * admission imaging noted * fluid removal challenging in the context of hypotension (presumably a problem during recent hospitalization at [facility] as well) * ongoing fluid removal with HD/DUF * follow respiratory status (5) Urinary tract infection: Qualifiers: Hematuria presence: without hematuria Urinary tract infection type: a cute cystitis Qualified Code(s): N30.00 - Acute cystitis without hematuria Code(s): N39.0 - Urinary tract infection, site not specified Status: Acute Assessment and Plan: * admission UA suggestive * follow culture data -- however, no urine culture done * on antibiotics (6) Volume overload: Code(s): E87.70 - Fluid overload, unspecified Status: Acute Assessment and Plan: * as suggested by evidence to date: * imaging with CHF findings and pulmonary edema * ~ 8kg above dry weight per outpatient dialysis clinic when seen on 07/29 * aggressive fluid removal with HD and DUF as tolerated by hemodynamics * Echo from admission to [facility] noted (07/23/25): * left ventricle is normal in size with estimated EF of 50 - 55% * right ventricular systolic function is at the lower limit of normal * moderate to severe aortic stenosis * no evidence of aortic valve regurgitation * mild to moderate mitral and pulmonic regurgitation * no evidence of mitral stenosis * moderate tricuspid regurgitation * moderate pulmonary hypertension * mildly dilated ascending aorta * almost 6L negative since admission * continue daily dialysis/ultrafiltration for this week (7) Anemia: Qualifiers: Anemia type: due to chronic kidney disease Chronic kidney disease stage: on chronic dialysis Qualified Code(s): N18.6 - End stage renal disease; D63.1 - Anemia in chronic kidney disease; Z99.2 - Dependence on renal dialysis Code(s): D64.9 - Anemia, unspecified Status: Chronic Assessment and Plan: * due to ESRD and acute illness * anemia studies noted: * evidence of mild iron deficiency * follow trend of H/H * Epogen with HD (8) DM type 2 (diabetes mellitus, type 2): Onset Date: ~2018 Qualifiers: Diabetes mellitus complication status: without complication 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 Will continue to follow. L Subjective Date/time seen: 08/02/25 09:12 Interval history: Following for end stage renal disease on hemodialysis. Tolerated dialysis treatment yesterday without any issues or problems with another 4L fluid removal; stable hemodyanmics noted without the need for vasopressor therapy and continued use of midodrine; resting comfortably at the time of my visit; no apparent issues or events overnight or earlier this morning; appears more calm and more alert when seen; planning another session of dry ultrafiltration later today. Exam 2 Narrative: General: elderly but WD/WN female in NAD Heart: IRRR, normal S1 and S2; no rub Lungs: coarse breath sounds; decreased at bases Abdomen: obese but soft, nontender, nondistended, positive bowel sounds Extremities: no cyanosis or clubbing; 1 - 2+ edema (UEs and LEs) Skin: no rash Objective Data Vital Signs Vital Signs: Vital Signs Temp Pulse Resp BP Pulse Ox O2 Del Method O2 Flow Rate 08/02/25 06:00 99 08/02/25 04:00 98.8 F 112 H 25 H 119/98 H 100 08/02/25 04:00 109 H 08/02/25 04:00 96 Nasal Cannula 2 08/02/25 02:00 106 H 08/02/25 00:00 103 H 08/02/25 00:00 97.9 F 105 H 22 H 115/83 98 08/02/25 00:00 97 Nasal Cannula 2 08/01/25 22:00 100 08/01/25 20:10 98.2 F 99 20 130/69 97 08/01/25 20:00 89 08/01/25 20:00 97 Nasal Cannula 2 08/01/25 18:00 105 H 104/65 08/01/25 18:00 104 H 23 H 92/65 L 100 08/01/25 18:00 92 08/01/25 17:35 98.8 F 107 H 23 H 95/76 L 99 08/01/25 17:06 100 Nasal Cannula 2 08/01/25 17:00 100 20 95/80 L 99 08/01/25 16:00 109 H 08/01/25 16:00 99.0 F 111 H 22 H 92/59 L 95 08/01/25 16:00 112 H 92/59 L 08/01/25 15:00 110 H 16 91/64 L 95 08/01/25 14:00 110 H 103/82 08/01/25 14:00 112 H 20 108/69 95 08/01/25 14:00 112 H 08/01/25 13:35 98.7 F 114 H 21 H 108/69 98 08/01/25 13:28 109 H 110/59 L 08/01/25 13:15 113 H 106/58 L 08/01/25 13:00 98.1 F 102 H 21 H 108/89 99 08/01/25 13:00 116 H 108/89 08/01/25 12:45 105 H 104/63 08/01/25 12:30 97 104/70 08/01/25 12:15 100 104/66 08/01/25 12:01 103 H 89/73 L 08/01/25 12:00 98 108/89 08/01/25 12:00 99 29 H 100 Nasal Cannula 2 08/01/25 12:00 99 08/01/25 12:00 98.7 F 104 H 32 H 89/73 L 99 08/01/25 11:45 105 H 93/47 L Intake/Output Intake/Output: Intake & Output 07/30/25 07/31/25 08/01/25 08/02/25 23:59 23:59 23:59 23:59 Intake Total 1010.3 956.0 510 290 Output Total 2510 4000 4000 Balance -1499.7 -3044.0 -3490 290 Meds/Results Medications: Active Medications Generic Name Dose Route Start Last Admin Trade Name Freq PRN Reason Stop Dose Admin Acetaminophen 650 mg 07/29/25 15:59 08/02/25 08:44 Acetaminophen 325 Mg Tablet PO 650 mg Q4H PRN Administration Mild Pain (1-3) or Fever Acetaminophen 650 mg 07/29/25 17:04 Acetaminophen 650 Mg Suppository RECTAL Q6H PRN Mild Pain (1-3) or Fever Albuterol/Ipratropium 3 ml 07/29/25 19:52 Ipratropium 0.5 Mg/Albuterol Sulfate 2.5 Mg (Base) Ampul.Neb 3 Ml INHALATION Q4HRT PRN Shortness of Breath. Apixaban 5 mg 07/30/25 09:00 08/02/25 08:44 Apixaban 5 Mg Tablet PO 5 mg BID BIANKA Administration Aripiprazole 1 mg 07/31/25 21:00 08/01/25 20:13 Aripiprazole 1 Mg Tablet PO 1 mg HS BIANKA Administration Aripiprazole 2 mg 07/31/25 21:00 08/01/25 20:13 Aripiprazole 2 Mg Tablet BY MOUTH 2 mg HS BIANKA Administration Buspirone HCl 5 mg 07/31/25 17:00 08/02/25 08:44 Buspirone Hcl 5 Mg Tablet BY MOUTH 5 mg TID BIANKA Administration Dextrose 12.5 gm 07/29/25 19:52 Dextrose 50% 25 Gm/50 Ml Syringe IV PUSH PRN PRN Hypoglycemia Protocol Docusate Sodium 200 mg 07/31/25 17:00 08/02/25 08:44 Docusate Sodium 100 Mg Capsule PO 200 mg BID BIANKA Administration Glucagon 1 mg 07/29/25 19:52 Glucagon For Inj 1 Mg Vial IM PRN PRN Hypoglycemia Protocol Glucose 15 gm 07/29/25 19:52 Glucose Oral Gel 15 Gm Of Glucse In 37.5 Gm Tube PO PRN PRN Hypoglycemia Protocol Dextrose 1,000 mls @ 100 mls/hr 07/29/25 19:52 Dextrose 5% 1,000 Ml IVPB PRN PRN Hypoglycemia Protocol Albumin Human 50 mls @ 999 mls/hr 07/30/25 05:49 07/31/25 08:55 Albutein IVPB 08/29/25 05:48 999 mls/hr Q10M PRN Administration HYPOTENSION Piperacillin Sod/Tazobactam 50 mls @ 100 mls/hr 07/30/25 14:00 08/02/25 05:56 Sod 2.25 gm/ Sodium Chloride IVPB 08/04/25 23:59 Infused Q8H BIANKA Infusion Vancomycin HCl 750 mg in 250 mls @ 250 mls/hr 08/02/25 18:00 Vancomycin 750 Mg/Ns 250 Ml IVPB 08/02/25 18:59 ONCE ONE Insulin Aspart 4 - 8 units 07/31/25 08:00 08/02/25 08:43 Insulin Aspart (*Bkc) 100 Units/Ml SUB-Q Not Given TIDWM [facility] Protocol Insulin Aspart 2 - 4 units 07/30/25 21:00 08/01/25 20:19 Insulin Aspart (*Bkc) 100 Units/Ml SUB-Q 2 units HS BIANKA Administration Protocol Insulin Glargine 15 units 07/30/25 09:00 07/30/25 09:16 Insulin Glargine (*Bkc) 100 Units/Ml SUB-Q Not Given On Hold: 07/30/25 13:46 QAM BIANKA Insulin Glargine 10 units 08/02/25 09:00 08/02/25 08:45 Insulin Glargine (*Bkc) 100 Units/Ml SUB-Q 10 units DAILY BIANKA Administration Memantine 5 mg 08/02/25 09:00 08/02/25 08:44 Memantine 5 Mg Tablet PO 08/09/25 08:59 5 mg QAM BIANKA Administration Memantine 5 mg 08/09/25 09:00 Memantine 5 Mg Tablet PO Q12HR BIANKA Methylphenidate HCl 10 mg 08/01/25 08:00 08/02/25 08:53 Methylphenidate Hcl (*Crx) 10 Mg Tablet PO 10 mg 0800,1200 BIANKA Administration Midodrine 10 mg 07/31/25 13:00 08/02/25 08:44 Midodrine Hcl 10 Mg Tablet PO 10 mg TID BIANKA Administration Mupirocin 1 applic 07/29/25 21:00 08/02/25 08:45 Mupirocin 2% Oint 22 Gm Tube EACH NARE 08/03/25 09:01 1 applic Q12HR BIANKA Administration Naloxone HCl 0.1 mg 07/29/25 20:26 Naloxone Hcl 0.4 Mg/Ml Vial IV PUSH Q5MIN PRN Sedation Non-Formulary Medication 30 mg 08/01/25 18:00 08/01/25 18:00 Tenapanor [Xphozah] PO 08/31/25 17:59 30 mg QPM BIANKA Administration Ondansetron HCl 4 mg 07/29/25 15:59 Ondansetron Inj 4 Mg/2 Ml Vial IV PUSH Q4H PRN Nausea Pantoprazole Sodium 40 mg 07/30/25 09:00 08/02/25 08:45 Pantoprazole Sodium Iv 40 Mg Vial IV PUSH 40 mg QAM BIANKA Administration Rosuvastatin Calcium 10 mg 08/01/25 09:00 08/02/25 08:44 Rosuvastatin 10 Mg Tablet PO 10 mg DAILY BIANKA Administration Sertraline HCl 50 mg 08/01/25 09:00 08/02/25 08:44 Sertraline Hcl 50 Mg Tablet PO 50 mg DAILY BIANKA Administration Sodium Chloride 20 ml 07/29/25 15:58 Central Line Flush IV PUSH PRN PRN after blood draws Vancomycin HCl 1 each 07/29/25 19:25 Vancomycin For Hemodialysis IVPB 08/04/25 23:59 PRN PRN Vancomycin Protocol Radiology Results: ITS Impressions Head CT 07/29/25 17:35 Impression: 1.No acute intracranial abnormality. Chest/Abdomen/Pelvis CT 07/29/25 18:21 IMPRESSION: CHEST- 1. Mild interstitial pulmonary edema with small left pleural effusions and bibasilar atelectasis. 2. No other acute abnormality. ABDOMEN/PELVIS- 1. No acute abnormality. 2. Additional findings as above. Chest X-Ray 08/02/25 08:39 Impression: CHF. Superimposed pneumonia Labs Labs: Laboratory Tests 08/02/25 05:23 08/02/25 05:23 POC Capillary Glucose Calcium 10.6 H Phosphorus 5.0 H Magnesium 2.0 Total Bilirubin 1.0 AST 33 ALT 25 Alkaline Phosphatase 139 H Total Protein 7.1 Albumin 4.0 Random Vancomycin 24.0 H Microbiology 07/29/25 15:45 Blood Blood Culture - Preliminary 07/29/25 14:23 Blood Blood Culture - Preliminary
--- NOTE | 2025-08-02 12:39 | PM.IMPN ---
Progress Note: A&P Assessment and Plan (1) Acute metabolic encephalopathy: Code(s): G93.41 - Metabolic encephalopathy Status: Acute Assessment and Plan: Patient presented with altered mental status/encephalopathy which could be related to uremia, infection along with hypotension -discussed with fashion buying internship, who stated that patient is almost 8 L positive since at dry weight -unsure if patient has been dialyzed adequately at [facility] as well as [facility] dialysis [facility] due to low blood pressures. She was also started on midodrine at [facility] which will restart here -post dialysis patient more awake -continue to monitor electrolytes and treat underlying cause -CT brain which did not show any acute intracranial abnormality 07/31: Encephalopathy gradually improving this patient is more awake this morning, most likely related to uremia S since she had dialysis yesterday, she seems to be improving, will continue dialysis again today 08/01: Appreciate Neurology evaluation and recommendations, will add Namenda and EEG per Neurology recommendation (2) ESRD (end stage renal disease): Code(s): N18.6 - End stage renal disease Status: Chronic Assessment and Plan: End-stage renal disease on dialysis, Tuesday, Tuesday, Tuesday -after discussion with Nephrology, seems like patient has not been optimally dialyzed at [facility] and at outpatient dialysis center due to hypotension. Patient was 8-10 L positive from her dry weight -07/30: Dialyzed with 2500 mL in fluid removal, she did require Levophed and albumin during dialysis. -07/31: Dialyzed with 4000 mL in fluid removal -08/01: Dialyzed with 4000 mL in fluid removed -patient on midodrine t.i.d. -dialysis per Nephrology (3) Hypotension: Code(s): I95.9 - Hypotension, unspecified Status: Acute Assessment and Plan: Multifactorial, infection, 07/30: CT scan of the chest abdomen follows showed interstitial edema with small left pleural effusion. Abdomen and pelvis did not show any acute abnormality -records have been requested from [facility] -may after repeat an echocardiogram if it was not done at [facility] -continue Zosyn and vancomycin (07/29) will continue for a total of 5 days -07/29: Preliminary blood cultures negative x2 02/29/2024: Echocardiogram Summary 1. Technically difficult study. 2. Left ventricular chamber dimension is normal. 3. Left ventricular systolic function is lower limits of normal, estimated at 50-55%. 4. There is mildly increased left ventricular wall thickness. 5. Right ventricular systolic function is normal. 6. Left atrial chamber dimension is severely enlarged. 7. Right atrial chamber dimension is mildly enlarged. 8. There is mild aortic valve regurgitation. 9. There is mild mitral valve regurgitation. 10. There is mild to moderate tricuspid valve regurgitation. 11. Pericardial effusion is present. Pericardial effusion is trivial in size anteriorly, and is small in size posteriorly. 12. Left pleural effusion present. (4) CHF (congestive heart failure): Qualifiers: Heart failure chronicity: acute on chronic Heart failure type: unspecified Qualified Code(s): I50.9 - Heart failure, unspecified Code(s): I50.9 - Heart failure, unspecified Status: Acute Assessment and Plan: Pulmonary edema on chest x-ray, could be related to CHF 07/23/2025: Echocardiogram from [facility] left ventricle is normal in size with estimated EF of 50 - 55% right ventricular systolic function is at the lower limit of normal moderate to severe aortic stenosis no evidence of aortic valve regurgitation mild to moderate mitral and pulmonic regurgitation no evidence of mitral stenosis moderate tricuspid regurgitation moderate pulmonary hypertension mildly dilated ascending aorta (5) DM type 2 (diabetes mellitus, type 2): Onset Date: ~2018 Qualifiers: Diabetes mellitus nursing home insulin use: without termite helper use Diabetes mellitus complication status: without complication Qualified Code(s): E11.9 - Type 2 diabetes mellitus without complications Code(s): E11.9 - Type 2 diabetes mellitus without complications Status: Chronic Assessment and Plan: Continue Accu-Cheks and sliding scale insulin -increase Lantus (6) Atrial fibrillation: Qualifiers: Atrial fibrillation type: unspecified Qualified Code(s): I48.91 - Unspecified atrial fibrillation Code(s): I48.91 - Unspecified atrial fibrillation Status: Acute Assessment and Plan: History of atrial fibrillation, continue Eliquis Plan DVT prophylaxis: Eliquis Stress ulcer prophylaxis: Protonix Nutrition: Renal diet Code Status: Full code Due to a high probability of clinically significant, life threatening deterioration, the patient required my highest level of preparedness to intervene emergently and I personally spent this critical care time directly and personally managing the patient. This critical care time included obtaining a history; examining the patient; pulse oximetry; ordering and review of studies; arranging urgent treatment with development of a management plan; evaluation of patient's response to treatment; frequent reassessment; and discussions with other providers. It was exclusive of separately billable procedures and treating other patients and teaching time. Please see Assessment and Plan section and the rest of the note for further information on patient assessment and treatment This dictation may have been done utilizing a voice recognition system. Attempts have been made to correct errors. However, there may be uncorrected grammatical, spelling, and recognitions errors present. Subjective Date/time seen: 08/02/25 12:39 Interval history: Maria R Barrientos is a 80 year old female with significant past medical history of congestive heart failure, end stage renal disease on dialysis, narcolepsy, depression, hyperlipidemia, atrial fibrillation, diabetes, essential hypertension presented the ED on 07/29/2025 from [facility] with complains of altered mental status and hypotension. On the day of admission she was being dialyzed kidney to have systolic blood pressures in this upper 70s. Was given 500 mL IV fluid bolus by the dialysis staff despite which the blood pressures remained 76/42. EMS was called and patient was transferred to [place] ED. Off note, she was recently discharged from [address] on 07/28/2025 which she was admitted for pneumonia, sepsis, hypoxia hyperkalemia. 08/02/2025: Patient being seen for hospitalist group Patient is more calm this morning, not combative or agitated. Answers to questions appropriately. Follows simple commands in all extremities. Received dialysis yesterday with 4000 mL in fluid removal. Has a good appetite, blood pressures have been stable Review of Systems Review of Systems: All systems reviewed & are unremarkable except as noted in HPI and below Exam Narrative: General: Elderly female, history of dementia, somnolent, in no acute distress HEENT:? Pupils equal and reactive, sclera is clear Neck:? Supple, patient has a right IJ dialysis cath Respiratory:? Coarse breath sounds bilateral, no wheezing, adequate air entry Cardiac:? Irregularly irregular, tachycardia. Abdomen:? Soft, nontender, nondistended, hypoactive bowel sound Extremities:? Left extremity fistula, bilateral lower extremity pitting edema up to the thighs Neuro:? Is more awake this morning, still confused but is able to be reoriented and answers questions and follows simple commands Skin:? Warm and dry Psych:? Intermittently confused, less agitated for showed Objective Data Vital Signs Vital Signs: Vital Signs - 24 hr 08/01/25 12:45 08/01/25 13:00 08/01/25 13:00 Temperature 98.1 F Pulse Rate 105 H 116 H 102 H Respiratory Rate 21 H Blood Pressure 104/63 108/89 108/89 Pulse Oximetry 99 Oxygen Delivery Oxygen Flow Rate 08/01/25 13:15 08/01/25 13:28 08/01/25 13:35 Temperature 98.7 F Pulse Rate 113 H 109 H 114 H Respiratory Rate 21 H Blood Pressure 106/58 L 110/59 L 108/69 Pulse Oximetry 98 Oxygen Delivery Oxygen Flow Rate 08/01/25 14:00 08/01/25 14:00 08/01/25 14:00 Temperature Pulse Rate 112 H 112 H 110 H Respiratory Rate 20 Blood Pressure 108/69 103/82 Pulse Oximetry 95 Oxygen Delivery Oxygen Flow Rate 08/01/25 15:00 08/01/25 16:00 08/01/25 16:00 Temperature 99.0 F Pulse Rate 110 H 112 H 111 H Respiratory Rate 16 22 H Blood Pressure 91/64 L 92/59 L 92/59 L Pulse Oximetry 95 95 Oxygen Delivery Oxygen Flow Rate 08/01/25 16:00 08/01/25 17:00 08/01/25 17:06 Temperature Pulse Rate 109 H 100 Respiratory Rate 20 Blood Pressure 95/80 L Pulse Oximetry 99 100 Oxygen Delivery Nasal Cannula Oxygen Flow Rate 2 08/01/25 17:35 08/01/25 18:00 08/01/25 18:00 Temperature 98.8 F Pulse Rate 107 H 92 104 H Respiratory Rate 23 H 23 H Blood Pressure 95/76 L 92/65 L Pulse Oximetry 99 100 Oxygen Delivery Oxygen Flow Rate 08/01/25 18:00 08/01/25 20:00 08/01/25 20:00 Temperature Pulse Rate 105 H 89 Respiratory Rate Blood Pressure 104/65 Pulse Oximetry 97 Oxygen Delivery Nasal Cannula Oxygen Flow Rate 2 08/01/25 20:10 08/01/25 22:00 08/02/25 00:00 Temperature 98.2 F Pulse Rate 99 100 Respiratory Rate 20 Blood Pressure 130/69 Pulse Oximetry 97 97 Oxygen Delivery Nasal Cannula Oxygen Flow Rate 2 08/02/25 00:00 08/02/25 00:00 08/02/25 02:00 Temperature 97.9 F Pulse Rate 105 H 103 H 106 H Respiratory Rate 22 H Blood Pressure 115/83 Pulse Oximetry 98 Oxygen Delivery Oxygen Flow Rate 08/02/25 04:00 08/02/25 04:00 08/02/25 04:00 Temperature 98.8 F Pulse Rate 109 H 112 H Respiratory Rate 25 H Blood Pressure 119/98 H Pulse Oximetry 96 100 Oxygen Delivery Nasal Cannula Oxygen Flow Rate 2 08/02/25 06:00 Temperature Pulse Rate 99 Respiratory Rate Blood Pressure Pulse Oximetry Oxygen Delivery Oxygen Flow Rate Intake/Output Intake/Output: Intake & Output 07/30/25 07/31/25 08/01/25 08/02/25 23:59 23:59 23:59 23:59 Intake Total 1010.3 956.0 510 290 Output Total 2510 4000 4000 Balance -1499.7 -3044.0 -3490 290 Meds/Results Medications: Active Medications Generic Name Dose Route Start Last Admin Trade Name Freq PRN Reason Stop Dose Admin Acetaminophen 650 mg 07/29/25 15:59 08/02/25 08:44 Acetaminophen 325 Mg Tablet PO 650 mg Q4H PRN Administration Mild Pain (1-3) or Fever Acetaminophen 650 mg 07/29/25 17:04 Acetaminophen 650 Mg Suppository RECTAL Q6H PRN Mild Pain (1-3) or Fever Albuterol/Ipratropium 3 ml 07/29/25 19:52 Ipratropium 0.5 Mg/Albuterol Sulfate 2.5 Mg (Base) Ampul.Neb 3 Ml INHALATION Q4HRT PRN Shortness of Breath. Apixaban 5 mg 07/30/25 09:00 08/02/25 08:44 Apixaban 5 Mg Tablet PO 5 mg BID BIANKA Administration Aripiprazole 1 mg 07/31/25 21:00 08/01/25 20:13 Aripiprazole 1 Mg Tablet PO 1 mg HS BIANKA Administration Aripiprazole 2 mg 07/31/25 21:00 08/01/25 20:13 Aripiprazole 2 Mg Tablet BY MOUTH 2 mg HS BIANKA Administration Buspirone HCl 5 mg 07/31/25 17:00 08/02/25 08:44 Buspirone Hcl 5 Mg Tablet BY MOUTH 5 mg TID BIANKA Administration Dextrose 12.5 gm 07/29/25 19:52 Dextrose 50% 25 Gm/50 Ml Syringe IV PUSH PRN PRN Hypoglycemia Protocol Docusate Sodium 200 mg 07/31/25 17:00 08/02/25 08:44 Docusate Sodium 100 Mg Capsule PO 200 mg BID BIANKA Administration Glucagon 1 mg 07/29/25 19:52 Glucagon For Inj 1 Mg Vial IM PRN PRN Hypoglycemia Protocol Glucose 15 gm 07/29/25 19:52 Glucose Oral Gel 15 Gm Of Glucse In 37.5 Gm Tube PO PRN PRN Hypoglycemia Protocol Dextrose 1,000 mls @ 100 mls/hr 07/29/25 19:52 Dextrose 5% 1,000 Ml IVPB PRN PRN Hypoglycemia Protocol Albumin Human 50 mls @ 999 mls/hr 07/30/25 05:49 07/31/25 08:55 Albutein IVPB 08/29/25 05:48 999 mls/hr Q10M PRN Administration HYPOTENSION Piperacillin Sod/Tazobactam 50 mls @ 100 mls/hr 07/30/25 14:00 08/02/25 05:56 Sod 2.25 gm/ Sodium Chloride IVPB 08/02/25 23:59 Infused Q8H BIANKA Infusion Vancomycin HCl 750 mg in 250 mls @ 250 mls/hr 08/02/25 18:00 Vancomycin 750 Mg/Ns 250 Ml IVPB 08/02/25 18:59 ONCE ONE Insulin Aspart 4 - 8 units 07/31/25 08:00 08/02/25 12:09 Insulin Aspart (*Bkc) 100 Units/Ml SUB-Q Not Given TIDWM [facility] Protocol Insulin Aspart 2 - 4 units 07/30/25 21:00 08/01/25 20:19 Insulin Aspart (*Bkc) 100 Units/Ml SUB-Q 2 units HS [facility] Administration Protocol Insulin Glargine 15 units 07/30/25 09:00 07/30/25 09:16 Insulin Glargine (*Bkc) 100 Units/Ml SUB-Q Not Given On Hold: 07/30/25 13:46 QAM BIANKA Insulin Glargine 10 units 08/02/25 09:00 08/02/25 08:45 Insulin Glargine (*Bkc) 100 Units/Ml SUB-Q 10 units DAILY BIANKA Administration Memantine 5 mg 08/02/25 09:00 08/02/25 08:44 Memantine 5 Mg Tablet PO 08/09/25 08:59 5 mg QAM BIANKA Administration Memantine 5 mg 08/09/25 09:00 Memantine 5 Mg Tablet PO Q12HR BIANKA Methylphenidate HCl 10 mg 08/01/25 08:00 08/02/25 08:53 Methylphenidate Hcl (*Crx) 10 Mg Tablet PO 10 mg 0800,1200 BIANKA Administration Midodrine 10 mg 07/31/25 13:00 08/02/25 08:44 Midodrine Hcl 10 Mg Tablet PO 10 mg TID BIANKA Administration Mupirocin 1 applic 07/29/25 21:00 08/02/25 08:45 Mupirocin 2% Oint 22 Gm Tube EACH NARE 08/03/25 09:01 1 applic Q12HR BIANKA Administration Naloxone HCl 0.1 mg 07/29/25 20:26 Naloxone Hcl 0.4 Mg/Ml Vial IV PUSH Q5MIN PRN Sedation Non-Formulary Medication 30 mg 08/01/25 18:00 08/01/25 18:00 Tenapanor [Xphozah] PO 08/31/25 17:59 30 mg QPM BIANKA Administration Ondansetron HCl 4 mg 07/29/25 15:59 Ondansetron Inj 4 Mg/2 Ml Vial IV PUSH Q4H PRN Nausea Pantoprazole Sodium 40 mg 07/30/25 09:00 08/02/25 08:45 Pantoprazole Sodium Iv 40 Mg Vial IV PUSH 40 mg QAM BIANKA Administration Rosuvastatin Calcium 10 mg 08/01/25 09:00 08/02/25 08:44 Rosuvastatin 10 Mg Tablet PO 10 mg DAILY BIANKA Administration Sertraline HCl 50 mg 08/01/25 09:00 08/02/25 08:44 Sertraline Hcl 50 Mg Tablet PO 50 mg DAILY BIANKA Administration Sodium Chloride 20 ml 07/29/25 15:58 Central Line Flush IV PUSH PRN PRN after blood draws Vancomycin HCl 1 each 07/29/25 19:25 Vancomycin For Hemodialysis IVPB 08/02/25 23:59 PRN PRN Vancomycin Protocol Radiology Results: ITS Impressions Head CT 07/29/25 17:35 Impression: 1.No acute intracranial abnormality. Chest/Abdomen/Pelvis CT 07/29/25 18:21 IMPRESSION: CHEST- 1. Mild interstitial pulmonary edema with small left pleural effusions and bibasilar atelectasis. 2. No other acute abnormality. ABDOMEN/PELVIS- 1. No acute abnormality. 2. Additional findings as above. Chest X-Ray 08/02/25 08:39 Impression: CHF. Superimposed pneumonia Labs Labs: Laboratory Results - last 24 hr 08/01/25 08/01/25 08/02/25 16:05 20:16 05:23 WBC 7.9 RBC 2.87 L Hgb 8.5 L Hct 28.6 L MCV 99.7 MCH 29.6 MCHC 29.7 L RDW 17.4 H Plt Count 248 MPV 9.8 Immature Gran % (Auto) 0.8 H Neut % (Auto) 73.9 H Lymph % (Auto) 10.6 L Rabun % (Auto) 11.3 H Eos % (Auto) 2.8 Baso % (Auto) 0.6 Lymph # (Auto) 0.83 L Rabun # (Auto) 0.9 H Eos # (Auto) 0.2 Baso # (Auto) 0.1 Abs Immat Gran (auto) 0.06 H Absolute Neuts (auto) 5.8 Absolute Nucleated RBC 0.060 H Band Neutrophils % Not Reportable Nucleated RBC % 0.8 H Platelet Estimate Adequate Hypochromasia 1+ Anisocytosis 1+ Schistocytes None seen Sodium 138 Potassium 3.8 Chloride 98 Carbon Dioxide 28 Anion Gap 12 BUN 30 H D Creatinine 3.68 H Estim Creat Clear Calc 14 Estimated GFR 12 L Glucose 201 H POC Capillary Glucose 220 H 278 H Calcium 10.6 H Phosphorus 5.0 H Magnesium 2.0 Total Bilirubin 1.0 AST 33 ALT 25 Alkaline Phosphatase 139 H Total Protein 7.1 Albumin 4.0 Random Vancomycin 24.0 H 08/02/25 08/02/25 08:43 12:01 WBC RBC Hgb Hct MCV MCH MCHC RDW Plt Count MPV Immature Gran % (Auto) Neut % (Auto) Lymph % (Auto) Rabun % (Auto) Eos % (Auto) Baso % (Auto) Lymph # (Auto) Rabun # (Auto) Eos # (Auto) Baso # (Auto) Abs Immat Gran (auto) Absolute Neuts (auto) Absolute Nucleated RBC Band Neutrophils % Nucleated RBC % Platelet Estimate Hypochromasia Anisocytosis Schistocytes Sodium Potassium Chloride Carbon Dioxide Anion Gap BUN Creatinine Estim Creat Clear Calc Estimated GFR Glucose POC Capillary Glucose 191 H 196 H Calcium Phosphorus Magnesium Total Bilirubin AST ALT Alkaline Phosphatase Total Protein Albumin Random Vancomycin Quality VTE Prophylaxis VTE prophylaxis: pharmacologic ordered
[2025-08-02] MEDS: EPOETIN ALFA-EPBX 10,000 UNITS/ML VIAL 10000 UNITS IV PUSH (14:41)
[2025-08-02] MEDS: SODIUM CHLORIDE 0.9% IV 1,000 ML 999 ML IV CONT (14:42)
[2025-08-02] MEDS: INSULIN ASPART (*BKC) 100 UNITS/ML SUB-Q ×2 (17:10→21:39)
[2025-08-02] MEDS: [UNRECOGNIZED DRUG - OTHER] PO (17:11)
[2025-08-02] MEDS: TENAPANOR 30 MG PO (17:11)
--- NOTE | 2025-08-02 18:23 | PC.NURSE ---
Pt transferred to IMU room 231 at 1812.
[2025-08-02] MEDS: VANCOMYCIN 750 MG/NS 250 ML 750 MG/250 ML BAG 250 MG IVPB (21:32)
[2025-08-02] MEDS: ALBUMIN HUMAN 25% 25 GM/100 ML 100 ML IVPB (22:20)
[2025-08-02] MEDS: SODIUM CHLORIDE 0.9% IV 500 ML 250 ML IV CONT (22:40)
[2025-08-03] VITALS (32 sets, daily range): BP systolic 84–134; BP diastolic 26–78; PULSE 50–134; RESP 14–22; TEMP 36.4–37.1; O2SAT 93–100
[2025-08-03 04:14] LABS: Hematocrit 29.6 % (37.0-47.0); Hemoglobin 8.7 g/dL (12.0-15.0); Immature Granulocyte Percent A 0.9 % (0-0.5); Lymphocytes Absolute Auto 1.05 K/mm3 (0.9-3.2); Mean Corpuscular HGB Conc 29.4 g/dl (32-36); Mean Corpuscular Hemoglobin 29.4 pg (26-34); Mean Corpuscular Volume 100.0 fl (80-100); Nucleated Red Blood Cells Absolute Auto 0.030 K/mm3 (0.0-0.012); Nucleated Red Blood Cells Perc 0.4 % (0.0-0.2); Platelet Count Result 277 k/mm3 (150-375); Red Blood Count 2.96 M/mm3 (4.2-5.4); White Blood Count 7.8 K/mm3 (4.5-10.0)
[2025-08-03 04:36] LABS: Alanine Aminotransferase 20 U/L (6-35); Albumin Level 4.2 g/dL (3.5-5.1); Alkaline Phosphatase 137 U/L (38-126); Anion Gap 14 mmol/L (4-12); Aspartate Amino Transferase 18 U/L (14-36); Bilirubin,Total 0.9 mg/dL (0.2-1.3); Blood Urea Nitrogen 42 mg/dL (7-17); Calcium 10.3 mg/dL (8.4-10.2); Carbon Dioxide 25 mmol/L (22-30); Chloride 100 mmol/L (98-107); Estimated CRCL calculation 11 ml/min; Estimated Glomerular Filt Rate 9; Glucose 257 mg/dL (65-110); Magnesium 2.1 mg/dL (1.6-2.3); Potassium 3.8 mmol/L (3.4-5.0); Sodium 139 mmol/L (137-145); Total Protein 7.4 g/dL (6.3-8.2)
[2025-08-03 04:53] LABS: Anisocytosis 1+; Schistocytes None Seen
[2025-08-03 04:54] LABS: Poikilocytosis 1+
[2025-08-03] MEDS: PIPERACILLIN/TAZOBACTAM SOD 2.25 GM in SODIUM CHLORIDE 0.9% IV 50 ML 100 ML IVPB ×3 (05:53→22:30)
[2025-08-03] MEDS: INSULIN ASPART (*BKC) 100 UNITS/ML SUB-Q ×3 (08:19→22:31)
[2025-08-03] MEDS: PANTOPRAZOLE SODIUM IV 40 MG VIAL IV PUSH (08:20)
[2025-08-03] MEDS: INSULIN GLARGINE (*BKC) 100 UNITS/ML 10 UNITS SUB-Q (08:21)
[2025-08-03] MEDS: ACETAMINOPHEN 325 MG TABLET 650 MG PO (08:22)
[2025-08-03] MEDS: SERTRALINE HCL 50 MG TABLET PO (08:22)
[2025-08-03] MEDS: DOCUSATE SODIUM 100 MG CAPSULE 200 MG PO ×2 (08:23→16:36)
[2025-08-03] MEDS: methylPHENIDATE HCL (*CRX) 10 MG TABLET PO ×2 (08:23→15:01)
[2025-08-03] MEDS: ROSUVASTATIN 10 MG TABLET PO (08:23)
[2025-08-03] MEDS: MEMANTINE 5 MG TABLET PO (08:23)
[2025-08-03] MEDS: MUPIROCIN 2% OINT 22 GM TUBE 1 APPLIC EACH NARE (08:23)
[2025-08-03] MEDS: MIDODRINE HCL 10 MG TABLET PO ×3 (08:23→18:15)
[2025-08-03] MEDS: APIXABAN 5 MG TABLET PO ×2 (08:23→16:35)
--- NOTE | 2025-08-03 09:37 | WPDNEUROLOGY ---
Neurology EEG Report General Information Date of Study: 08/02/25 TEST electroencephalogram DIAGNOSIS altered mental status, end-stage renal disease CONDITION OF RECORDING bedside recording EEG NUMBER [id number] CLINICAL HISTORY history of increasing confusion and agitation. Patient is on hemodialysis. EEG DESCRIPTION During wakefulness the background activity consists of posterior dominant rhythm in theta range at 7 hertz with an amplitude of 15-35 microvolts. Anteriorly mixed frequency activity was noted. There is mild anteroposterior gradient. Frontal intermittent rhythmic delta activity was seen. Occasionally focal slowing and sharp activity were noted over left temporal area. during drowsiness attenuation background activity is seen. Periods of the brief wakefulness and drowsiness were seen frequently during the study. Patient did not progress to stage 2 sleep. Hyperventilation or photic stimulation were not performed. IMPRESSION This is an abnormal EEG due to followin. Mild diffuse background slowing and frontal intermittent rhythmic delta activity suggestive generalized encephalopathy or bihemispheric lesion. 2. Focal slowing and sharp wave activity noted over the left temporal area. Focal slowing may raise possibility of underlying structural lesion. Sharp transients are considered nonspecific focal abnormality. However such abnormalities may be seen many elderly subjects and hence clinical and if necessary radiographic correlation may be helpful.
--- NOTE | 2025-08-03 10:46 | P.PNNP_ITS ---
Progress Note: A&P Assessment and Plan (1) ESRD (end stage renal disease): Code(s): N18.6 - End stage renal disease Status: Chronic Assessment and Plan: * HD Underway. * transition back Tue/Tue/Tuesday dialysis schedule next week * getting HD on //Tuesday this week * The patient was dialyzed at the other hospital on Tuesday and Tuesday and lots of fluid was taken off. She went home Tuesday in then came back in on Tuesday fluid overload again. She lives in a fpc. It is unclear what their parameters are for her fluid intake but unfortunately nursing homes cannot enforce fluid restriction even when it is for the good of the patient. (2) Hypotension: Code(s): I95.9 - Hypotension, unspecified Status: Acute Assessment and Plan: * acute on chronic * etiology? * An echo done a year and half ago showed mild to moderate tricuspid regu rgitation. and the 1 more recently shows moderate tricuspid regurg and moderate to severe aortic stenosis. * early sepsis/infection? * baseline systolic BP runs in the 90s for the last month * recently started on midodrine therapy from recent [facility] admission * follow culture data * off vasopressor therapy currently * on midodrine therapy (3) AMS (altered mental status): Qualifiers: Altered mental status type: transient alteration of awareness Qualified Code(s): R40.4 - Transient alteration of awareness Code(s): R41.82 - Altered mental status, unspecified Status: Acute Assessment and Plan: * improvement noted . However she can still be somewhat agitated/combative. * despite underlying dementia, usually alert and oriented x 3 * head CT negative * due to hypotension versus early sepsis/infection(?) * follow trend of mentation with current interventions (4) Acute hypoxic respiratory failure: Code(s): J96.01 - Acute respiratory failure with hypoxia Status: Acute Assessment and Plan: * as noted since admission * presumably due to volume overload (CHF + pulmonary edema) and recent pneumonia * admission imaging noted * fluid removal challenging in the context of hypotension (presumably a problem during recent hospitalization at [facility] as well) * ongoing fluid removal with HD/DUF * follow respiratory status (5) Urinary tract infection: Qualifiers: Hematuria presence: without hematuria Urinary tract infection type: acute cystitis Qualified Code(s): N30.00 - Acute cystitis without hematuria Code(s): N39.0 - Urinary tract infection, site not specified Status: Acute Assessment and Plan: * admission UA suggestive * follow culture data -- however, no urine culture done * on Vancomycin +piperacillin (6) Volume overload: Code(s): E87.70 - Fluid overload, unspecified Status: Acute Assessment and Plan: * as suggested by evidence to date: * imaging with CHF findings and pulmonary edema * ~ 8kg above dry weight per outpatient dialysis clinic when seen on 07/29 * aggressive fluid removal with HD and DUF as tolerated by hemodynamics * Echo from admission to [facility] noted (07/23/25): * left ventricle is normal in size with estimated EF of 50 - 55% * right ventricular systolic function is at the lower limit of normal * moderate to severe aortic stenosis * no evidence of aortic valve regurgitation * mild to moderate mitral and pulmonic regurgitation * no evidence of mitral stenosis * moderate tricuspid regurgitation * moderate pulmonary hypertension * mildly dilated ascending aorta * almost 10L negative since admission * more fluid off today. Will try again on Tuesday (7) Anemia: Qualifiers: Anemia type: due to chronic kidney disease Chronic kidney disease stage: on chronic dialysis Qualified Code(s): N18.6 - End stage renal disease; D63.1 - Anemia in chronic kidney disease; Z99.2 - Dependence on renal dialysis Code(s): D64.9 - Anemia, unspecified Status: Chronic Assessment and Plan: * due to ESRD and acute illness * anemia studies noted: * evidence of mild iron deficiency * follow trend of H/H * Epogen with HD (8) DM type 2 (diabetes mellitus, type 2): Onset Date: ~2018 Qualifiers: Diabetes mellitus fdc insulin use: without fdc use Diabetes mellitus complication status: without complication Qualified Code(s): E11.9 - Type 2 diabetes mellitus without complications Code(s): E11.9 - Type 2 diabetes mellitus without complications Status: Chronic Assessment and Plan: * follow accu-cheks * glycemic control per hospitalist Subjective Date/time seen: 08/03/25 10:46 Interval history: Maria R is on dialysis and tolerating it well. The patient is getting regular dialysis today. She had a dry ultrafiltration yesterday. Blood pressure is doing pretty well so far but tends to drop with ultrafiltration. She was seen at 9:20 a.m. Exam Narrative: General: elderly but WD/WN female in NAD. Heart: IRRR, normal S1 and S2; no rub or gallop Lungs: coarse breath sounds; decreased at bases Abdomen: obese but soft, nontender, nondistended, positive bowel sounds Extremities: no cyanosis or clubbing; 1 - 2+ edema (UEs and LEs) Skin: no rash or subcu nodule Objective Data Vital Signs Vital Signs: Vital Signs - 24 hr 08/02/25 12:00 08/02/25 12:00 08/02/25 12:00 Temperature 98.7 F Pulse Rate 106 H 109 H Respiratory Rate 25 H Blood Pressure 98/52 L Pulse Oximetry 100 95 Oxygen Delivery Nasal Cannula Oxygen Flow Rate 2 08/02/25 13:20 08/02/25 13:20 08/02/25 13:33 Temperature 98.8 F Pulse Rate 106 H 91 Respiratory Rate 26 H Blood Pressure 102/71 113/64 Pulse Oximetry 100 Oxygen Delivery Oxygen Flow Rate 2 08/02/25 13:45 08/02/25 14:00 08/02/25 14:00 Temperature Pulse Rate 90 89 99 Respiratory Rate Blood Pressure 91/60 L 99/70 L Pulse Oximetry Oxygen Delivery Oxygen Flow Rate 08/02/25 14:16 08/02/25 14:30 08/02/25 14:45 Temperature Pulse Rate 91 102 H 102 H Respiratory Rate Blood Pressure 110/76 105/68 101/68 Pulse Oximetry Oxygen Delivery Oxygen Flow Rate 08/02/25 15:00 08/02/25 15:15 08/02/25 15:30 Temperature Pulse Rate 100 99 103 H Respiratory Rate Blood Pressure 117/99 H 97/71 L 106/63 Pulse Oximetry Oxygen Delivery Oxygen Flow Rate 08/02/25 15:45 08/02/25 16:00 08/02/25 16:00 Temperature Pulse Rate 105 H 113 H 113 H Respiratory Rate Blood Pressure 97/56 L 88/76 L Pulse Oximetry Oxygen Delivery Oxygen Flow Rate 08/02/25 16:00 08/02/25 16:00 08/02/25 16:15 Temperature 98.8 F Pulse Rate 107 H 109 H Respiratory Rate 19 Blood Pressure 88/76 L 83/63 L Pulse Oximetry 100 98 Oxygen Delivery Nasal Cannula Oxygen Flow Rate 2 08/02/25 16:33 08/02/25 16:45 08/02/25 18:00 Temperature 98.8 F Pulse Rate 97 97 93 Respiratory Rate 27 H Blood Pressure 87/65 L 89/59 L Pulse Oximetry 100 Oxygen Delivery Oxygen Flow Rate 08/02/25 20:00 08/02/25 20:00 08/02/25 20:00 Temperature 97.4 F L Pulse Rate 95 101 H Respiratory Rate 20 Blood Pressure 65/32 L Pulse Oximetry 100 100 Oxygen Delivery Nasal Cannula Oxygen Flow Rate 2 08/02/25 20:15 08/02/25 22:00 08/03/25 00:00 Temperature 98.1 F Pulse Rate 95 99 Respiratory Rate 22 H Blood Pressure 120/68 Pulse Oximetry 99 100 Oxygen Delivery Nasal Cannula Oxygen Flow Rate 2 08/03/25 00:00 08/03/25 00:00 08/03/25 02:00 Temperature Pulse Rate 98 100 Respiratory Rate Blood Pressure Pulse Oximetry 100 Oxygen Delivery Nasal Cannula Oxygen Flow Rate 2 08/03/25 04:00 08/03/25 04:00 08/03/25 04:00 Temperature 98.2 F Pulse Rate 101 H 94 Respiratory Rate 18 Blood Pressure 127/78 Pulse Oximetry 99 100 Oxygen Delivery Nasal Cannula Oxygen Flow Rate 2 08/03/25 06:00 08/03/25 08:00 08/03/25 08:40 Temperature 98.0 F 98.1 F Pulse Rate 104 H 97 104 H Respiratory Rate 20 14 Blood Pressure 126/76 124/69 Pulse Oximetry 100 93 Oxygen Delivery Oxygen Flow Rate 08/03/25 08:48 08/03/25 09:00 08/03/25 09:15 Temperature Pulse Rate 106 H 100 100 Respiratory Rate Blood Pressure 116/69 103/64 117/53 L Pulse Oximetry Oxygen Delivery Oxygen Flow Rate 08/03/25 09:30 08/03/25 09:45 08/03/25 10:00 Temperature Pulse Rate 98 102 H 73 Respiratory Rate Blood Pressure 123/46 L 134/60 105/56 L Pulse Oximetry Oxygen Delivery Oxygen Flow Rate 08/03/25 10:15 08/03/25 10:30 Temperature Pulse Rate 88 92 Respiratory Rate Blood Pressure 92/48 L 85/41 L Pulse Oximetry Oxygen Delivery Oxygen Flow Rate Intake/Output Intake/Output: Intake & Output 07/31/25 08/01/25 08/02/25 08/03/25 23:59 23:59 23:59 23:59 Intake Total 956.0 510 1300 50 Output Total 4000 4000 4000 Balance -3044.0 -3490 -2700 50 Meds/Results Medications: Active Medications Generic Name Dose Route Start Last Admin Trade Name Freq PRN Reason Stop Dose Admin Acetaminophen 650 mg 07/29/25 15:59 08/03/25 08:22 Acetaminophen 325 Mg Tablet PO 650 mg Q4H PRN Administration Mild Pain (1-3) or Fever Acetaminophen 650 mg 07/29/25 17:04 Acetaminophen 650 Mg Suppository RECTAL Q6H PRN Mild Pain (1-3) or Fever Albuterol/Ipratropium 3 ml 07/29/25 19:52 Ipratropium 0.5 Mg/Albuterol Sulfate 2.5 Mg (Base) Ampul.Neb 3 Ml INHALATION Q4HRT PRN Shortness of Breath. Apixaban 5 mg 07/30/25 09:00 08/03/25 08:23 Apixaban 5 Mg Tablet PO 5 mg BID BIANKA Administration Aripiprazole 1 mg 07/31/25 21:00 08/02/25 22:15 Aripiprazole 1 Mg Tablet PO 1 mg HS BIANKA Administration Aripiprazole 2 mg 07/31/25 21:00 08/02/25 22:15 Aripiprazole 2 Mg Tablet BY MOUTH 2 mg HS BIANKA Administration Buspirone HCl 5 mg 07/31/25 17:00 08/03/25 08:22 Buspirone Hcl 5 Mg Tablet BY MOUTH 5 mg TID BIANKA Administration Dextrose 12.5 gm 07/29/25 19:52 Dextrose 50% 25 Gm/50 Ml Syringe IV PUSH PRN PRN Hypoglycemia Protocol Docusate Sodium 200 mg 07/31/25 17:00 08/03/25 08:23 Docusate Sodium 100 Mg Capsule PO 200 mg BID BIANKA Administration Epoetin [place]-epbx 10,000 units 08/03/25 18:23 Epoetin [place]-Epbx 10,000 Units/Ml Vial IV PUSH 08/03/25 18:24 ONCE ONE Glucagon 1 mg 07/29/25 19:52 Glucagon For Inj 1 Mg Vial IM PRN PRN Hypoglycemia Protocol Glucose 15 gm 07/29/25 19:52 Glucose Oral Gel 15 Gm Of Glucse In 37.5 Gm Tube PO PRN PRN Hypoglycemia Protocol Dextrose 1,000 mls @ 100 mls/hr 07/29/25 19:52 Dextrose 5% 1,000 Ml IVPB PRN PRN Hypoglycemia Protocol Albumin Human 50 mls @ 999 mls/hr 07/30/25 05:49 07/31/25 08:55 Albutein IVPB 08/29/25 05:48 999 mls/hr Q10M PRN Administration HYPOTENSION Piperacillin Sod/Tazobactam 50 mls @ 100 mls/hr 08/03/25 06:00 08/03/25 06:23 Sod 2.25 gm/ Sodium Chloride IVPB Infused Q8HR BIANKA Infusion Insulin Aspart 4 - 8 units 07/31/25 08:00 08/03/25 08:19 Insulin Aspart (*Bkc) 100 Units/Ml SUB-Q 4 units TIDWM [facility] Administration Protocol Insulin Aspart 2 - 4 units 07/30/25 21:00 08/02/25 21:39 Insulin Aspart (*Bkc) 100 Units/Ml SUB-Q 2 units HS BIANKA Administration Protocol Insulin Glargine 15 units 07/30/25 09:00 07/30/25 09:16 Insulin Glargine (*Bkc) 100 Units/Ml SUB-Q Not Given On Hold: 07/30/25 13:46 QAM BIANKA Insulin Glargine 10 units 08/02/25 09:00 08/03/25 08:21 Insulin Glargine (*Bkc) 100 Units/Ml SUB-Q 10 units DAILY BIANKA Administration Memantine 5 mg 08/02/25 09:00 08/03/25 08:23 Memantine 5 Mg Tablet PO 08/09/25 08:59 5 mg QAM BIANKA Administration Memantine 5 mg 08/09/25 09:00 Memantine 5 Mg Tablet PO Q12HR BIANKA Methylphenidate HCl 10 mg 08/01/25 08:00 08/03/25 08:23 Methylphenidate Hcl (*Crx) 10 Mg Tablet PO 10 mg 0800,1200 BIANKA Administration Midodrine 10 mg 07/31/25 13:00 08/03/25 08:23 Midodrine Hcl 10 Mg Tablet PO 10 mg TID BIANKA Administration Naloxone HCl 0.1 mg 07/29/25 20:26 Naloxone Hcl 0.4 Mg/Ml Vial IV PUSH Q5MIN PRN Sedation Non-Formulary Medication 30 mg 08/01/25 18:00 08/02/25 17:11 Tenapanor [Xphozah] PO 08/31/25 17:59 30 mg QPM BIANKA Administration Ondansetron HCl 4 mg 07/29/25 15:59 Ondansetron Inj 4 Mg/2 Ml Vial IV PUSH Q4H PRN Nausea Pantoprazole Sodium 40 mg 07/30/25 09:00 08/03/25 08:20 Pantoprazole Sodium Iv 40 Mg Vial IV PUSH 40 mg QAM BIANKA Administration Rosuvastatin Calcium 10 mg 08/01/25 09:00 08/03/25 08:23 Rosuvastatin 10 Mg Tablet PO 10 mg DAILY BIANKA Administration Sertraline HCl 50 mg 08/01/25 09:00 08/03/25 08:22 Sertraline Hcl 50 Mg Tablet PO 50 mg DAILY BIANKA Administration Sodium Chloride 20 ml 07/29/25 15:58 Central Line Flush IV PUSH PRN PRN after blood draws Radiology Results: ITS Impressions Head CT 07/29/25 17:35 Impression: 1.No acute intracranial abnormality. Chest/Abdomen/Pelvis CT 07/29/25 18:21 IMPRESSION: CHEST- 1. Mild interstitial pulmonary edema with small left pleural effusions and bibasilar atelectasis. 2. No other acute abnormality. ABDOMEN/PELVIS- 1. No acute abnormality. 2. Additional findings as above. Labs Labs: Laboratory Results - last 24 hr 08/02/25 08/02/25 08/02/25 12:01 16:17 20:00 WBC RBC Hgb Hct MCV MCH MCHC RDW Plt Count MPV Immature Gran % (Auto) Neut % (Auto) Lymph % (Auto) [place]aves % (Auto) Eos % (Auto) Baso % (Auto) Lymph # (Auto) [place] # (Auto) Eos # (Auto) Baso # (Auto) Abs Immat Gran (auto) Absolute Neuts (auto) Absolute Nucleated RBC Band Neutrophils % Nucleated RBC % Platelet Estimate Poikilocytosis Anisocytosis Schistocytes Sodium Potassium Chloride Carbon Dioxide Anion Gap BUN Creatinine Estim Creat Clear Calc Estimated GFR Glucose POC Capillary Glucose 196 H 244 H 299 H Calcium Phosphorus Magnesium Total Bilirubin AST ALT Alkaline Phosphatase Total Protein Albumin 08/03/25 08/03/25 04:02 07:38 WBC 7.8 RBC 2.96 L Hgb 8.7 L Hct 29.6 L MCV 100.0 MCH 29.4 MCHC 29.4 L RDW 17.5 H Plt Count 277 MPV 10.0 Immature Gran % (Auto) 0.9 H Neut % (Auto) 71.1 Lymph % (Auto) 13.4 L Chaves % (Auto) 10.8 H Eos % (Auto) 3.2 Baso % (Auto) 0.6 Lymph # (Auto) 1.05 [place]aves # (Auto) 0.8 H Eos # (Auto) 0.3 Baso # (Auto) 0.1 Abs Immat Gran (auto) 0.07 H Absolute Neuts (auto) 5.6 Absolute Nucleated RBC 0.030 H Band Neutrophils % Not Reportable Nucleated RBC % 0.4 H Platelet Estimate Adequate Poikilocytosis 1+ Anisocytosis 1+ Schistocytes None seen Sodium 139 Potassium 3.8 Chloride 100 Carbon Dioxide 25 Anion Gap 14 H BUN 42 H D Creatinine 4.83 H Estim Creat Clear Calc 11 Estimated GFR 9 L Glucose 257 H POC Capillary Glucose 241 H Calcium 10.3 H Phosphorus 6.0 H Magnesium 2.1 Total Bilirubin 0.9 AST 18 ALT 20 Alkaline Phosphatase 137 H Total Protein 7.4 Albumin 4.2
[2025-08-03] MEDS: SODIUM CHLORIDE 0.9% IV 1,000 ML 999 ML IV CONT (11:12)
[2025-08-03] MEDS: EPOETIN ALFA-EPBX 10,000 UNITS/ML VIAL 10000 UNITS IV PUSH (11:12)
--- NOTE | 2025-08-03 11:14 | P.PNIM_ITS ---
Progress Note: A&P Assessment and Plan (1) Acute metabolic encephalopathy: Code(s): G93.41 - Metabolic encephalopathy Status: Acute Assessment and Plan: Patient presented with altered mental status/encephalopathy which could be related to uremia, infection along with hypotension -discussed with racing secretary and handicapper, who stated that patient is almost 8 L positive since at dry weight -unsure if patient has been dialyzed adequately at [facility] as well as [facility] dialysis [facility] due to low blood pressures. She was also started on midodrine at [facility] which will restart here -post dialysis patient more awake -continue to monitor electrolytes and treat underlying cause -CT brain which did not show any acute intracranial abnormality 07/31: Encephalopathy gradually improving this patient is more awake this morning, most likely related to uremia S since she had dialysis yesterday, she seems to be improving, will continue dialysis again today 08/01: Appreciate Neurology evaluation and recommendations, will add Namenda and EEG per Neurology recommendation (2) ESRD (end stage renal disease): Code(s): N18.6 - End stage renal disease Status: Chronic Assessment and Plan: End-stage renal disease on dialysis, Tuesday, Tuesday, Tuesday -after discussion with Nephrology, seems like patient has not been optimally dialyzed at [facility] and at outpatient dialysis center due to hypotension. Patient was 8-10 L positive from her dry weight -07/30: Dialyzed with 2500 mL in fluid removal, she did require Levophed and albumin during dialysis. -07/31: Dialyzed with 4000 mL in fluid removal -08/01: Dialyzed with 4000 mL in fluid removed -patient on midodrine t.i.d. -dialysis per Nephrology 08/02-dialyzed with 4000 mL and fluid removal 08/03-dialyzed with 3000 food review (3) Hypotension: Code(s): I95.9 - Hypotension, unspecified Status: Acute Assessment and Plan: Multifactorial, infection, 07/30: CT scan of the chest abdomen follows showed interstitial edema with small left pleural effusion. Abdomen and pelvis did not show any acute abnormality -records have been requested from [facility] -february after repeat an echocardiogram if it was not done at [facility] -continue Zosyn and vancomycin (07/29) will continue for a total of 5 days -07/29: Preliminary blood cultures negative x2 02/29/2024: Echocardiogram Summary 1. Technically difficult study. 2. Left ventricular chamber dimension is normal. 3. Left ventricular systolic function is lower limits of normal, estimated at 50-55%. 4. There is mildly increased left ventricular wall thickness. 5. Right ventricular systolic function is normal. 6. Left atrial chamber dimension is severely enlarged. 7. Right atrial chamber dimension is mildly enlarged. 8. There is mild aortic valve regurgitation. 9. There is mild mitral valve regurgitation. 10. There is mild to moderate tricuspid valve regurgitation. 11. Pericardial effusion is present. Pericardial effusion is trivial in size anteriorly, and is small in size posteriorly. 12. Left pleural effusion present. (4) CHF (congestive heart failure): Qualifiers: Heart failure chronicity: acute on chronic Heart failure type: unspecified Qualified Code(s): I50.9 - Heart failure, unspecified Code(s): I50.9 - Heart failure, unspecified Status: Acute Assessment and Plan: Pulmonary edema on chest x-ray, could be related to CHF will repeat 2D echo for electroalteranant on EKG. Rule out pericardial effusion 07/23/2025: Echocardiogram from [facility] * left ventricle is normal in size with estimated EF of 50 - 55% * right ventricular systolic function is at the lower limit of normal * moderate to severe aortic stenosis * no evidence of aortic valve regurgitation * mild to moderate mitral and pulmonic regurgitation * no evidence of mitral stenosis * moderate tricuspid regurgitation * moderate pulmonary hypertension * mildly dilated ascending aorta (5) DM type 2 (diabetes mellitus, type 2): Onset Date: ~2018 Qualifiers: Diabetes mellitus complication status: without complication 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: without assisted use Qualified Code(s): E11.9 - Type 2 diabetes mellitus without complications Code(s): E11.9 - Type 2 diabetes mellitus without complications Status: Chronic Assessment and Plan: Continue Accu-Cheks and sliding scale insulin -increase Lantus 20 units daily (6) Atrial fibrillation: Qualifiers: Atrial fibrillation type: permanent Qualified Code(s): I48.21 - Permanent atrial fibrillation Code(s): I48.91 - Unspecified atrial fibrillation Status: Acute Assessment and Plan: History of atrial fibrillation, continue Eliquis and metoprolol Plan DVT prophylaxis: Eliquis Stress ulcer prophylaxis: Protonix Nutrition: Renal diet Code Status: Full code Time Spent With Patient Time: 35 minutes Subjective Date/time seen: 08/03/25 11:14 Interval history: Post dialysis, she has fatigue. EKG collected that shows atrial fibrillation with RVR. 2D echo ordered to evaluate pericardial effusion. Review of Systems Review of Systems: All systems reviewed & are unremarkable except as noted in HPI and below Exam Narrative: APPEARANCE: Frail, fatigued and sleepy. Obese EYES: EOMI HEENT: Normocephalic, atraumatic, OMM RESPIRATORY: No respiratory distress Clear to auscultation bilaterally with no rhonchi wheezing or rales. CARDIOVASCULAR: Atrial fibrillation with RVR ABDOMINAL: Soft, nontender, nondistended, no rebound or guarding MSK: Anasarca, trace edema on bilateral feet but extensive coblestone texture edema upto the hip NEURO: Awake and alert. Following commands, speech normal, no focal deficits SKIN:: Warm, dry. No rashes lesions or abrasions PSYCHIATRIC: Lethargy Objective Data Vital Signs Vital Signs: Vital Signs - 24 hr 08/02/25 12:00 08/02/25 12:00 08/02/25 12:00 Temperature 37.1 C Pulse Rate 106 H 109 H Respiratory Rate 25 H Blood Pressure 98/52 L Pulse Oximetry 100 95 Oxygen Delivery Nasal Cannula Oxygen Flow Rate 2 08/02/25 13:20 08/02/25 13:20 08/02/25 13:33 Temperature 37.1 C Pulse Rate 106 H 91 Respiratory Rate 26 H Blood Pressure 102/71 113/64 Pulse Oximetry 100 Oxygen Delivery Oxygen Flow Rate 2 08/02/25 13:45 08/02/25 14:00 08/02/25 14:00 Temperature Pulse Rate 90 89 99 Respiratory Rate Blood Pressure 91/60 L 99/70 L Pulse Oximetry Oxygen Delivery Oxygen Flow Rate 08/02/25 14:16 08/02/25 14:30 08/02/25 14:45 Temperature Pulse Rate 91 102 H 102 H Respiratory Rate Blood Pressure 110/76 105/68 101/68 Pulse Oximetry Oxygen Delivery Oxygen Flow Rate 08/02/25 15:00 08/02/25 15:15 08/02/25 15:30 Temperature Pulse Rate 100 99 103 H Respiratory Rate Blood Pressure 117/99 H 97/71 L 106/63 Pulse Oximetry Oxygen Delivery Oxygen Flow Rate 08/02/25 15:45 08/02/25 16:00 08/02/25 16:00 Temperature Pulse Rate 105 H 113 H 113 H Respiratory Rate Blood Pressure 97/56 L 88/76 L Pulse Oximetry Oxygen Delivery Oxygen Flow Rate 08/02/25 16:00 08/02/25 16:00 08/02/25 16:15 Temperature 37.1 C Pulse Rate 107 H 109 H Respiratory Rate 19 Blood Pressure 88/76 L 83/63 L Pulse Oximetry 100 98 Oxygen Delivery Nasal Cannula Oxygen Flow Rate 2 08/02/25 16:33 08/02/25 16:45 08/02/25 18:00 Temperature 37.1 C Pulse Rate 97 97 93 Respiratory Rate 27 H Blood Pressure 87/65 L 89/59 L Pulse Oximetry 100 Oxygen Delivery Oxygen Flow Rate 08/02/25 20:00 08/02/25 20:00 08/02/25 20:00 Temperature 36.3 C L Pulse Rate 95 101 H Respiratory Rate 20 Blood Pressure 65/32 L Pulse Oximetry 100 100 Oxygen Delivery Nasal Cannula Oxygen Flow Rate 2 08/02/25 20:15 08/02/25 22:00 08/03/25 00:00 Temperature 36.7 C Pulse Rate 95 99 Respiratory Rate 22 H Blood Pressure 120/68 Pulse Oximetry 99 100 Oxygen Delivery Nasal Cannula Oxygen Flow Rate 2 08/03/25 00:00 08/03/25 00:00 08/03/25 02:00 Temperature Pulse Rate 98 100 Respiratory Rate Blood Pressure Pulse Oximetry 100 Oxygen Delivery Nasal Cannula Oxygen Flow Rate 2 08/03/25 04:00 08/03/25 04:00 08/03/25 04:00 Temperature 36.8 C Pulse Rate 101 H 94 Respiratory Rate 18 Blood Pressure 127/78 Pulse Oximetry 99 100 Oxygen Delivery Nasal Cannula Oxygen Flow Rate 2 08/03/25 06:00 08/03/25 08:00 08/03/25 08:40 Temperature 36.7 C 36.7 C Pulse Rate 104 H 97 104 H Respiratory Rate 20 14 Blood Pressure 126/76 124/69 Pulse Oximetry 100 93 Oxygen Delivery Oxygen Flow Rate 08/03/25 08:48 08/03/25 09:00 08/03/25 09:15 Temperature Pulse Rate 106 H 100 100 Respiratory Rate Blood Pressure 116/69 103/64 117/53 L Pulse Oximetry Oxygen Delivery Oxygen Flow Rate 08/03/25 09:30 08/03/25 09:45 08/03/25 10:00 Temperature Pulse Rate 98 102 H 73 Respiratory Rate Blood Pressure 123/46 L 134/60 105/56 L Pulse Oximetry Oxygen Delivery Oxygen Flow Rate 08/03/25 10:15 08/03/25 10:30 08/03/25 10:45 Temperature Pulse Rate 88 92 80 Respiratory Rate Blood Pressure 92/48 L 85/41 L 88/42 L Pulse Oximetry Oxygen Delivery Oxygen Flow Rate 08/03/25 11:00 Temperature Pulse Rate 73 Respiratory Rate Blood Pressure 87/56 L Pulse Oximetry Oxygen Delivery Oxygen Flow Rate Intake/Output Intake/Output: Intake & Output 07/31/25 08/01/25 08/02/25 08/03/25 23:59 23:59 23:59 23:59 Intake Total 956.0 510 1300 50 Output Total 4000 4000 4000 Balance -3044.0 -3490 -2700 50 Meds/Results Medications: Active Medications Generic Name Dose Route Start Last Admin Trade Name Freq PRN Reason Stop Dose Admin Acetaminophen 650 mg 07/29/25 15:59 08/03/25 08:22 Acetaminophen 325 Mg Tablet PO 650 mg Q4H PRN Administration Mild Pain (1-3) or Fever Acetaminophen 650 mg 07/29/25 17:04 Acetaminophen 650 Mg Suppository RECTAL Q6H PRN Mild Pain (1-3) or Fever Albuterol/Ipratropium 3 ml 07/29/25 19:52 Ipratropium 0.5 Mg/Albuterol Sulfate 2.5 Mg (Base) Ampul.Neb 3 Ml INHALATION Q4HRT PRN Shortness of Breath. Apixaban 5 mg 07/30/25 09:00 08/03/25 08:23 Apixaban 5 Mg Tablet PO 5 mg BID BIANKA Administration Aripiprazole 1 mg 07/31/25 21:00 08/02/25 22:15 Aripiprazole 1 Mg Tablet PO 1 mg HS BIANKA Administration Aripiprazole 2 mg 07/31/25 21:00 08/02/25 22:15 Aripiprazole 2 Mg Tablet BY MOUTH 2 mg HS BIANKA Administration Buspirone HCl 5 mg 07/31/25 17:00 08/03/25 08:22 Buspirone Hcl 5 Mg Tablet BY MOUTH 5 mg TID BIANKA Administration Dextrose 12.5 gm 07/29/25 19:52 Dextrose 50% 25 Gm/50 Ml Syringe IV PUSH PRN PRN Hypoglycemia Protocol Docusate Sodium 200 mg 07/31/25 17:00 08/03/25 08:23 Docusate Sodium 100 Mg Capsule PO 200 mg BID BIANKA Administration Epoetin Austin-epbx 10,000 units 08/03/25 18:23 08/03/25 11:12 Epoetin [place]-Epbx 10,000 Units/Ml Vial IV PUSH 08/03/25 18:24 10,000 units ONCE ONE Administration Glucagon 1 mg 07/29/25 19:52 Glucagon For Inj 1 Mg Vial IM PRN PRN Hypoglycemia Protocol Glucose 15 gm 07/29/25 19:52 Glucose Oral Gel 15 Gm Of Glucse In 37.5 Gm Tube PO PRN PRN Hypoglycemia Protocol Dextrose 1,000 mls @ 100 mls/hr 07/29/25 19:52 Dextrose 5% 1,000 Ml IVPB PRN PRN Hypoglycemia Protocol Albumin Human 50 mls @ 999 mls/hr 07/30/25 05:49 07/31/25 08:55 Albutein IVPB 08/29/25 05:48 999 mls/hr Q10M PRN Administration HYPOTENSION Piperacillin Sod/Tazobactam 50 mls @ 100 mls/hr 08/03/25 06:00 08/03/25 06:23 Sod 2.25 gm/ Sodium Chloride IVPB Infused Q8HR BIANKA Infusion Insulin Aspart 4 - 8 units 07/31/25 08:00 08/03/25 08:19 Insulin Aspart (*Bkc) 100 Units/Ml SUB-Q 4 units TIDWM BIANKA Administration Protocol Insulin Aspart 2 - 4 units 07/30/25 21:00 08/02/25 21:39 Insulin Aspart (*Bkc) 100 Units/Ml SUB-Q 2 units HS [facility] Administration Protocol Insulin Glargine 15 units 07/30/25 09:00 07/30/25 09:16 Insulin Glargine (*Bkc) 100 Units/Ml SUB-Q Not Given On Hold: 07/30/25 13:46 QAM BIANKA Insulin Glargine 10 units 08/02/25 09:00 08/03/25 08:21 Insulin Glargine (*Bkc) 100 Units/Ml SUB-Q 10 units DAILY BIANKA Administration Memantine 5 mg 08/02/25 09:00 08/03/25 08:23 Memantine 5 Mg Tablet PO 08/09/25 08:59 5 mg QAM BIANKA Administration Memantine 5 mg 08/09/25 09:00 Memantine 5 Mg Tablet PO Q12HR BIANKA Methylphenidate HCl 10 mg 08/01/25 08:00 08/03/25 08:23 Methylphenidate Hcl (*Crx) 10 Mg Tablet PO 10 mg 0800,1200 BIANKA Administration Midodrine 10 mg 07/31/25 13:00 08/03/25 08:23 Midodrine Hcl 10 Mg Tablet PO 10 mg TID BIANKA Administration Naloxone HCl 0.1 mg 07/29/25 20:26 Naloxone Hcl 0.4 Mg/Ml Vial IV PUSH Q5MIN PRN Sedation Non-Formulary Medication 30 mg 08/01/25 18:00 08/02/25 17:11 Tenapanor [Xphozah] PO 08/31/25 17:59 30 mg QPM BIANKA Administration Ondansetron HCl 4 mg 07/29/25 15:59 Ondansetron Inj 4 Mg/2 Ml Vial IV PUSH Q4H PRN Nausea Pantoprazole Sodium 40 mg 07/30/25 09:00 08/03/25 08:20 Pantoprazole Sodium Iv 40 Mg Vial IV PUSH 40 mg QAM BIANKA Administration Rosuvastatin Calcium 10 mg 08/01/25 09:00 08/03/25 08:23 Rosuvastatin 10 Mg Tablet PO 10 mg DAILY BIANKA Administration Sertraline HCl 50 mg 08/01/25 09:00 08/03/25 08:22 Sertraline Hcl 50 Mg Tablet PO 50 mg DAILY BIANKA Administration Sodium Chloride 20 ml 07/29/25 15:58 Central Line Flush IV PUSH PRN PRN after blood draws Radiology Results: ITS Impressions Head CT 07/29/25 17:35 Impression: 1.No acute intracranial abnormality. Chest/Abdomen/Pelvis CT 07/29/25 18:21 IMPRESSION: CHEST- 1. Mild interstitial pulmonary edema with small left pleural effusions and bibasilar atelectasis. 2. No other acute abnormality. ABDOMEN/PELVIS- 1. No acute abnormality. 2. Additional findings as above. Labs Labs: Laboratory Results - last 24 hr 08/02/25 08/02/25 08/02/25 12:01 16:17 20:00 WBC RBC Hgb Hct MCV MCH MCHC RDW Plt Count MPV Immature Gran % (Auto) Neut % (Auto) Lymph % (Auto) [place] % (Auto) Eos % (Auto) Baso % (Auto) Lymph # (Auto) [place] # (Auto) Eos # (Auto) Baso # (Auto) Abs Immat Gran (auto) Absolute Neuts (auto) Absolute Nucleated RBC Band Neutrophils % Nucleated RBC % Platelet Estimate Poikilocytosis Anisocytosis Schistocytes Sodium Potassium Chloride Carbon Dioxide Anion Gap BUN Creatinine Estim Creat Clear Calc Estimated GFR Glucose POC Capillary Glucose 196 H 244 H 299 H Calcium Phosphorus Magnesium Total Bilirubin AST ALT Alkaline Phosphatase Total Protein Albumin 08/03/25 08/03/25 04:02 07:38 WBC 7.8 RBC 2.96 L Hgb 8.7 L Hct 29.6 L MCV 100.0 MCH 29.4 MCHC 29.4 L RDW 17.5 H Plt Count 277 MPV 10.0 Immature Gran % (Auto) 0.9 H Neut % (Auto) 71.1 Lymph % (Auto) 13.4 L [place] % (Auto) 10.8 H Eos % (Auto) 3.2 Baso % (Auto) 0.6 Lymph # (Auto) 1.05 [place] # (Auto) 0.8 H Eos # (Auto) 0.3 Baso # (Auto) 0.1 Abs Immat Gran (auto) 0.07 H Absolute Neuts (auto) 5.6 Absolute Nucleated RBC 0.030 H Band Neutrophils % Not Reportable Nucleated RBC % 0.4 H Platelet Estimate Adequate Poikilocytosis 1+ Anisocytosis 1+ Schistocytes None seen Sodium 139 Potassium 3.8 Chloride 100 Carbon Dioxide 25 Anion Gap 14 H BUN 42 H D Creatinine 4.83 H Estim Creat Clear Calc 11 Estimated GFR 9 L Glucose 257 H POC Capillary Glucose 241 H Calcium 10.3 H Phosphorus 6.0 H Magnesium 2.1 Total Bilirubin 0.9 AST 18 ALT 20 Alkaline Phosphatase 137 H Total Protein 7.4 Albumin 4.2 Quality VTE Prophylaxis VTE prophylaxis: pharmacologic ordered
[2025-08-03] MEDS: ONDANSETRON INJ 4 MG/2 ML VIAL IV PUSH ×2 (11:17→16:40)
[2025-08-03 11:29] LABS: Iron 48 ug/dL (37-170)
[2025-08-03 11:38] LABS: Percent Iron Saturation 26 % (20-50)
--- NOTE | 2025-08-03 16:06 | ECG_ITS ---
Test Date: 2025-08-03 16:23:00 Measurements Intervals Dickens Rate: 122 P: 0 MO: 0 QRS: -18 QRSD: 111 T: 110 QT: 329 QTc: 470 Interpretive Statements ATRIAL FIBRILLATION WITH RAPID VENTRICULAR RESPONSE INCOMPLETE LEFT BUNDLE BRANCH BLOCK LEFT VENTRICULAR HYPERTROPHY WITH ST-T CHANGE MINIMAL Q WAVES- HIGH LATERAL LEADS BASELINE ARTIFACT- II, III, V1-V3 ABNORMAL ECG Compared to ECG 07/29/2025 12:56:03 HEART RATE HAS INCREASED Electronically Signed On 08-04-2025 07:37:57 CDT by Don Flores D.O.
[2025-08-03] MEDS: METOPROLOL TARTRATE INJ 5 MG/5 ML VIAL IV PUSH (16:35)
[2025-08-03] MEDS: TENAPANOR 30 MG PO (16:44)
[2025-08-03] MEDS: [UNRECOGNIZED DRUG - OTHER] PO (16:44)
[2025-08-03 21:06] LABS: Pneumo Ab Type 5* 1.7 ug/mL (>1.3)
[2025-08-03] MEDS: ALBUMIN HUMAN 25% 25 GM/100 ML 200 ML IVPB (23:53)
[2025-08-04] VITALS (17 sets, daily range): BP systolic 87–109; BP diastolic 51–58; PULSE 82–115; RESP 16–34; TEMP 36.7–37.1; O2SAT 91–100
[2025-08-04 04:57] LABS: Hematocrit 31.9 % (37.0-47.0); Hemoglobin 9.4 g/dL (12.0-15.0); Immature Granulocyte Percent A 0.7 % (0-0.5); Lymphocytes Absolute Auto 1.06 K/mm3 (0.9-3.2); Mean Corpuscular HGB Conc 29.5 g/dl (32-36); Mean Corpuscular Hemoglobin 29.6 pg (26-34); Mean Corpuscular Volume 100.3 fl (80-100); Nucleated Red Blood Cells Absolute Auto 0.060 K/mm3 (0.0-0.012); Nucleated Red Blood Cells Perc 0.6 % (0.0-0.2); Platelet Count Result 250 k/mm3 (150-375); Red Blood Count 3.18 M/mm3 (4.2-5.4); White Blood Count 9.4 K/mm3 (4.5-10.0)
[2025-08-04 05:17] LABS: Anisocytosis 1+; Hypochromasia 1+; Schistocytes None Seen
[2025-08-04 05:23] LABS: Albumin Level 4.7 g/dL (3.5-5.1); Anion Gap 16 mmol/L (4-12); Blood Urea Nitrogen 35 mg/dL (7-17); Calcium 10.9 mg/dL (8.4-10.2); Carbon Dioxide 30 mmol/L (22-30); Chloride 92 mmol/L (98-107); Estimated CRCL calculation 13 ml/min; Estimated Glomerular Filt Rate 12; Glucose 220 mg/dL (65-110); Potassium 3.8 mmol/L (3.4-5.0); Sodium 138 mmol/L (137-145)
[2025-08-04] MEDS: PIPERACILLIN/TAZOBACTAM SOD 2.25 GM in SODIUM CHLORIDE 0.9% IV 50 ML 100 ML IVPB ×3 (05:52→21:39)
[2025-08-04] MEDS: MIDODRINE HCL 10 MG TABLET PO ×3 (05:53→21:44)
--- NOTE | 2025-08-04 09:19 | P.PNIM_ITS ---
Progress Note: A&P Assessment and Plan (1) Acute metabolic encephalopathy: Code(s): G93.41 - Metabolic encephalopathy Status: Acute Assessment and Plan: Patient presented with altered mental status/encephalopathy which could be related to uremia, infection along with hypotension -discussed with gas flow regulator, who stated that patient is almost 8 L positive since at dry weight -unsure if patient has been dialyzed adequately at [facility] as well as [facility] dialysis [facility] due to low blood pressures. She was also started on midodrine at [facility] which will restart here -post dialysis patient more awake -continue to monitor electrolytes and treat underlying cause -CT brain which did not show any acute intracranial abnormality 07/31: Encephalopathy gradually improving this patient is more awake this morning, most likely related to uremia S since she had dialysis yesterday, she seems to be improving, will continue dialysis again today 08/01: Appreciate Neurology evaluation and recommendations, will add Namenda and EEG per Neurology recommendation (2) ESRD (end stage renal disease): Code(s): N18.6 - End stage renal disease Status: Chronic Assessment and Plan: End-stage renal disease on dialysis, Tuesday, Tuesday, Tuesday -after discussion with Nephrology, seems like patient has not been optimally dialyzed at [facility] and at outpatient dialysis center due to hypotension. Patient was 8-10 L positive from her dry weight -07/30: Dialyzed with 2500 mL in fluid removal, she did require Levophed and albumin during dialysis. -07/31: Dialyzed with 4000 mL in fluid removal -08/01: Dialyzed with 4000 mL in fluid removed -patient on midodrine t.i.d. -dialysis per Nephrology 08/02-dialyzed with 4000 mL and fluid removal 08/03-dialyzed with 3000 food review Per nephro, she will resume dialysis MWF will monitor how she is doing today (3) Hypotension: Code(s): I95.9 - Hypotension, unspecified Status: Acute Assessment and Plan: Multifactorial, infection, 07/30: CT scan of the chest abdomen follows showed interstitial edema with small left pleural effusion. Abdomen and pelvis did not show any acute abnormality -records have been requested from [facility] -february after repeat an echocardiogram if it was not done at [facility] -continue Zosyn and vancomycin (07/29) will continue for a total of 5 days -07/29: Preliminary blood cultures negative x2 -08/04-Hr 100. Resume home metoprolol 08/04/2025: Echocardiogram Summary ATRIAL FIBRILLATION WITH RAPID VENTRICULAR RESPONSE INCOMPLETE LEFT BUNDLE BRANCH BLOCK LEFT VENTRICULAR HYPERTROPHY WITH ST-T CHANGE MINIMAL Q WAVES- HIGH LATERAL LEADS BASELINE ARTIFACT- II, III, V1-V3 ABNORMAL ECG Compared to ECG 07/29/2025 12:56:03 HEART RATE HAS INCREASED (4) CHF (congestive heart failure): Qualifiers: Heart failure chronicity: acute on chronic Heart failure type: unspecified Qualified Code(s): I50.9 - Heart failure, unspecified Code(s): I50.9 - Heart failure, unspecified Status: Acute Assessment and Plan: Pulmonary edema on chest x-ray, could be related to CHF likely 2/2 Fluid overloaded 2/2 inadequate dialysis Dialysis per Nephrology 07/23/2025: Echocardiogram from [facility] * left ventricle is normal in size with estimated EF of 50 - 55% * right ventricular systolic function is at the lower limit of normal * moderate to severe aortic stenosis * no evidence of aortic valve regurgitation * mild to moderate mitral and pulmonic regurgitation * no evidence of mitral stenosis * moderate tricuspid regurgitation * moderate pulmonary hypertension * mildly dilated ascending aorta (5) DM type 2 (diabetes mellitus, type 2): Onset Date: ~2018 Qualifiers: Diabetes mellitus complication status: without complication 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: without residential real estate agent use Qualified Code(s): E11.9 - Type 2 diabetes mellitus without complications Code(s): E11.9 - Type 2 diabetes mellitus without complications Status: Chronic Assessment and Plan: Continue Accu-Cheks and sliding scale insulin -increase Lantus 25 units daily (6) Atrial fibrillation: Qualifiers: Atrial fibrillation type: permanent Qualified Code(s): I48.21 - Permanent atrial fibrillation Code(s): I48.91 - Unspecified atrial fibrillation Status: Acute Assessment and Plan: History of atrial fibrillation, continue Eliquis and metoprolol Plan DVT prophylaxis: Eliquis Stress ulcer prophylaxis: no indication Nutrition: diabetic diet Code Status: Full code Time Spent With Patient Time: 35 minutes Subjective Date/time seen: 08/04/25 09:19 Interval history: Maria R looks more awake today. Oriented x3. Heart rate is around 100. Still Afib. NO fever or chills over. Review of Systems Review of Systems: All systems reviewed & are unremarkable except as noted in HPI and below Exam Narrative: APPEARANCE: Frail, alert. Obese EYES: EOMI HEENT: Normocephalic, atraumatic, OMM RESPIRATORY: No respiratory distress Clear to auscultation bilaterally with no rhonchi wheezing or rales. CARDIOVASCULAR: Atrial fibrillation with RVR ABDOMINAL: Soft, nontender, nondistended, no rebound or guarding MSK: Anasarca, trace edema on bilateral feet but extensive coblestone texture edema upto the hip NEURO: Awake and alert. Following commands, speech normal, no focal deficits SKIN:: Warm, dry. No rashes lesions or abrasions PSYCHIATRIC: irritable for getting awake for exam Objective Data Vital Signs Vital Signs: Vital Signs - 24 hr 08/03/25 09:30 08/03/25 09:45 08/03/25 10:00 Temperature Pulse Rate 98 102 H 73 Respiratory Rate Blood Pressure 123/46 L 134/60 105/56 L Pulse Oximetry Oxygen Delivery Oxygen Flow Rate Fraction of Inspired Oxygen 08/03/25 10:00 08/03/25 10:15 08/03/25 10:30 Temperature Pulse Rate 106 H 88 92 Respiratory Rate Blood Pressure 92/48 L 85/41 L Pulse Oximetry Oxygen Delivery Oxygen Flow Rate Fraction of Inspired Oxygen 08/03/25 10:45 08/03/25 11:00 08/03/25 11:15 Temperature Pulse Rate 80 73 95 Respiratory Rate Blood Pressure 88/42 L 87/56 L 84/32 L Pulse Oximetry Oxygen Delivery Oxygen Flow Rate Fraction of Inspired Oxygen 08/03/25 11:46 08/03/25 12:00 08/03/25 12:00 Temperature Pulse Rate 91 82 115 H Respiratory Rate Blood Pressure 99/38 L 90/50 L Pulse Oximetry Oxygen Delivery Oxygen Flow Rate Fraction of Inspired Oxygen 08/03/25 12:15 08/03/25 12:30 08/03/25 12:48 Temperature Pulse Rate 84 86 50 L Respiratory Rate Blood Pressure 97/26 L 100/29 L 90/36 L Pulse Oximetry Oxygen Delivery Oxygen Flow Rate Fraction of Inspired Oxygen 08/03/25 12:57 08/03/25 13:27 08/03/25 14:00 Temperature 36.4 C L 36.6 C Pulse Rate 50 L 130 H 126 H Respiratory Rate 14 20 Blood Pressure 104/38 L 96/51 L Pulse Oximetry 94 93 Oxygen Delivery Oxygen Flow Rate Fraction of Inspired Oxygen 08/03/25 15:15 08/03/25 16:00 08/03/25 16:00 Temperature 36.8 C Pulse Rate 119 H 118 H Respiratory Rate 20 Blood Pressure 98/66 L Pulse Oximetry 93 99 Oxygen Delivery Nasal Cannula Oxygen Flow Rate 2 Fraction of Inspired Oxygen 08/03/25 16:35 08/03/25 18:00 08/03/25 20:00 Temperature Pulse Rate 134 H 106 H 109 H Respiratory Rate Blood Pressure Pulse Oximetry Oxygen Delivery Oxygen Flow Rate Fraction of Inspired Oxygen 08/03/25 20:00 08/03/25 20:00 08/03/25 22:00 Temperature 37.1 C Pulse Rate 101 H 109 H Respiratory Rate 20 Blood Pressure 95/62 L Pulse Oximetry 99 100 Oxygen Delivery Nasal Cannula Oxygen Flow Rate 2 Fraction of Inspired Oxygen 08/03/25 23:30 08/04/25 00:00 08/04/25 00:00 Temperature 37.1 C Pulse Rate 109 H 112 H Respiratory Rate 20 Blood Pressure 87/52 L Pulse Oximetry 100 100 Oxygen Delivery Nasal Cannula Oxygen Flow Rate 2 Fraction of Inspired Oxygen 08/04/25 00:00 08/04/25 02:00 08/04/25 04:00 Temperature 37.1 C Pulse Rate 103 H 105 H 111 H Respiratory Rate 18 Blood Pressure 91/51 L Pulse Oximetry 100 Oxygen Delivery Oxygen Flow Rate Fraction of Inspired Oxygen 08/04/25 04:00 08/04/25 04:00 08/04/25 06:00 Temperature Pulse Rate 104 H 100 Respiratory Rate Blood Pressure Pulse Oximetry 100 Oxygen Delivery Nasal Cannula Oxygen Flow Rate 2 Fraction of Inspired Oxygen 08/04/25 07:37 08/04/25 08:40 Temperature 37.0 C Pulse Rate 113 H 82 Respiratory Rate 24 H 16 Blood Pressure 109/57 L Pulse Oximetry 95 91 Oxygen Delivery Nasal Cannula Oxygen Flow Rate 2 Fraction of Inspired Oxygen 28 Intake/Output Intake/Output: Intake & Output 08/01/25 08/02/25 08/03/25 08/04/25 23:59 23:59 23:59 23:59 Intake Total 510 1300 590 175 Output Total 4000 4000 3000 0 Balance -8429 -2700 -2410 175 Meds/Results Medications: Active Medications Generic Name Dose Route Start Last Admin Trade Name Freq PRN Reason Stop Dose Admin Acetaminophen 650 mg 07/29/25 15:59 08/03/25 08:22 Acetaminophen 325 Mg Tablet PO 650 mg Q4H PRN Administration Mild Pain (1-3) or Fever Acetaminophen 650 mg 07/29/25 17:04 Acetaminophen 650 Mg Suppository RECTAL Q6H PRN Mild Pain (1-3) or Fever Albuterol/Ipratropium 3 ml 07/29/25 19:52 Ipratropium 0.5 Mg/Albuterol Sulfate 2.5 Mg (Base) Ampul.Neb 3 Ml INHALATION Q4HRT PRN Shortness of Breath. Apixaban 5 mg 07/30/25 09:00 08/03/25 16:35 Apixaban 5 Mg Tablet PO 5 mg BID BIANKA Administration Aripiprazole 1 mg 07/31/25 21:00 08/03/25 22:28 Aripiprazole 1 Mg Tablet PO 1 mg HS BIANKA Administration Aripiprazole 2 mg 07/31/25 21:00 08/03/25 22:29 Aripiprazole 2 Mg Tablet BY MOUTH 2 mg HS BIANKA Administration Buspirone HCl 5 mg 07/31/25 17:00 08/03/25 18:15 Buspirone Hcl 5 Mg Tablet BY MOUTH 5 mg TID BIANKA Administration Dextrose 12.5 gm 07/29/25 19:52 Dextrose 50% 25 Gm/50 Ml Syringe IV PUSH PRN PRN Hypoglycemia Protocol Docusate Sodium 200 mg 07/31/25 17:00 08/03/25 16:36 Docusate Sodium 100 Mg Capsule PO 200 mg BID BIANKA Administration Glucagon 1 mg 07/29/25 19:52 Glucagon For Inj 1 Mg Vial IM PRN PRN Hypoglycemia Protocol Glucose 15 gm 07/29/25 19:52 Glucose Oral Gel 15 Gm Of Glucse In 37.5 Gm Tube PO PRN PRN Hypoglycemia Protocol Dextrose 1,000 mls @ 100 mls/hr 07/29/25 19:52 Dextrose 5% 1,000 Ml IVPB PRN PRN Hypoglycemia Protocol Albumin Human 50 mls @ 999 mls/hr 07/30/25 05:49 07/31/25 08:55 Albutein IVPB 08/29/25 05:48 999 mls/hr Q10M PRN Administration HYPOTENSION Piperacillin Sod/Tazobactam 50 mls @ 100 mls/hr 08/03/25 06:00 08/04/25 05:52 Sod 2.25 gm/ Sodium Chloride IVPB 100 mls/hr Q8HR BIANKA Administration Insulin Aspart 4 - 8 units 07/31/25 08:00 08/03/25 16:45 Insulin Aspart (*Bkc) 100 Units/Ml SUB-Q 4 units TIDWM BIANKA Administration Protocol Insulin Aspart 2 - 4 units 07/30/25 21:00 08/03/25 22:31 Insulin Aspart (*Bkc) 100 Units/Ml SUB-Q 2 units HS BIANKA Administration Protocol Insulin Glargine 10 units 08/02/25 09:00 08/03/25 08:21 Insulin Glargine (*Bkc) 100 Units/Ml SUB-Q 10 units DAILY BIANKA Administration Insulin Glargine 20 units 08/04/25 09:00 Insulin Glargine (*Bkc) 100 Units/Ml SUB-Q On Hold: 08/04/25 09:00 QAM BIANKA Memantine 5 mg 08/02/25 09:00 08/03/25 08:23 Memantine 5 Mg Tablet PO 08/09/25 08:59 5 mg QAM BIANKA Administration Memantine 5 mg 08/09/25 09:00 Memantine 5 Mg Tablet PO Q12HR BIANKA Methylphenidate HCl 10 mg 08/01/25 08:00 08/03/25 15:01 Methylphenidate Hcl (*Crx) 10 Mg Tablet PO 10 mg 0800,1200 BIANKA Administration Metoprolol Tartrate 25 mg 08/03/25 21:00 08/03/25 23:30 Metoprolol Tartrate 25 Mg Tablet PO Not Given Q12HR BIANKA Midodrine 10 mg 08/04/25 06:00 08/04/25 05:53 Midodrine Hcl 10 Mg Tablet PO 10 mg Q8HR BIANKA Administration Naloxone HCl 0.1 mg 07/29/25 20:26 Naloxone Hcl 0.4 Mg/Ml Vial IV PUSH Q5MIN PRN Sedation Non-Formulary Medication 30 mg 08/01/25 18:00 08/03/25 16:44 Tenapanor [Xphozah] PO 08/31/25 17:59 30 mg QPM BIANKA Administration Ondansetron HCl 4 mg 07/29/25 15:59 08/03/25 16:40 Ondansetron Inj 4 Mg/2 Ml Vial IV PUSH 4 mg Q4H PRN Administration Nausea Pantoprazole Sodium 40 mg 07/30/25 09:00 08/03/25 08:20 Pantoprazole Sodium Iv 40 Mg Vial IV PUSH 40 mg QAM BIANKA Administration Perflutren Lipid Microsphere 0 ml 08/03/25 11:20 Perflutren Lipid Microspheres 1.5 Ml Vial Diluted To 10 Ml Total Volume IV PUSH 08/06/25 11:20 ONCE PRN adequate visualization Protocol Rosuvastatin Calcium 10 mg 08/01/25 09:00 08/03/25 08:23 Rosuvastatin 10 Mg Tablet PO 10 mg DAILY BIANKA Administration Sertraline HCl 50 mg 08/01/25 09:00 08/03/25 08:22 Sertraline Hcl 50 Mg Tablet PO 50 mg DAILY BIANKA Administration Sodium Chloride 20 ml 07/29/25 15:58 Central Line Flush IV PUSH PRN PRN after blood draws Radiology Results: ITS Impressions Head CT 07/29/25 17:35 Impression: 1.No acute intracranial abnormality. Chest/Abdomen/Pelvis CT 07/29/25 18:21 IMPRESSION: CHEST- 1. Mild interstitial pulmonary edema with small left pleural effusions and bibasilar atelectasis. 2. No other acute abnormality. ABDOMEN/PELVIS- 1. No acute abnormality. 2. Additional findings as above. Labs Labs: Laboratory Results - last 24 hr 07/29/25 08/03/25 08/03/25 20:33 03:54 13:20 WBC RBC Hgb Hct MCV MCH MCHC RDW Plt Count MPV Immature Gran % (Auto) Neut % (Auto) Lymph % (Auto) [place] % (Auto) Eos % (Auto) Baso % (Auto) Lymph # (Auto) [place] # (Auto) Eos # (Auto) Baso # (Auto) Abs Immat Gran (auto) Absolute Neuts (auto) Absolute Nucleated RBC Band Neutrophils % Nucleated RBC % Platelet Estimate Hypochromasia Anisocytosis Schistocytes Sodium Potassium Chloride Carbon Dioxide Anion Gap BUN Creatinine Estim Creat Clear Calc Estimated GFR Glucose POC Capillary Glucose 164 H Calcium Phosphorus Iron 48 TIBC 186 L % Saturation 26 Albumin S.pneumoniae 1 (1) IgG 1.7 S.pneumoniae 3 (3) IgG 0.2 L S.pneumoniae 4 (4) IgG 0.8 L S.pneumoniae 5 (5) IgG 1.7 S.pneumoniae 8 (8) IgG 1.6 S.pneumoniae 9 (9N) IgG 1.7 S.pneumon 12 (12F) IgG 0.3 L S.pneumon 14 (14) IgG 2.8 S.pneumon 19 (19F) IgG 4.1 S.pneumon 23 (23F) IgG 0.9 L S.pneumon 26 (6B) IgG 0.5 L S.pneumon 51 (7F) IgG 4.3 S.pneumon 56 (18C) IgG 7.7 S.pneumon 68 (9V) IgG 3.3 08/03/25 08/03/25 08/04/25 15:48 20:30 04:33 WBC 9.4 RBC 3.18 L Hgb 9.4 L Hct 31.9 L MCV 100.3 H MCH 29.6 MCHC 29.5 L RDW 17.5 H Plt Count 250 MPV 9.9 Immature Gran % (Auto) 0.7 H Neut % (Auto) 75.0 H Lymph % (Auto) 11.2 L [place] % (Auto) 11.0 H Eos % (Auto) 1.5 Baso % (Auto) 0.6 Lymph # (Auto) 1.06 [place] # (Auto) 1.0 H Eos # (Auto) 0.1 Baso # (Auto) 0.1 Abs Immat Gran (auto) 0.07 H Absolute Neuts (auto) 7.1 H Absolute Nucleated RBC 0.060 H Band Neutrophils % Not Reportable Nucleated RBC % 0.6 H Platelet Estimate Adequate Hypochromasia 1+ Anisocytosis 1+ Schistocytes None seen Sodium 138 Potassium 3.8 Chloride 92 L Carbon Dioxide 30 Anion Gap 16 H BUN 35 H Creatinine 3.74 H Estim Creat Clear Calc 13 Estimated GFR 12 L Glucose 220 H POC Capillary Glucose 219 H 268 H Calcium 10.9 H Phosphorus 6.0 H Iron TIBC % Saturation Albumin 4.7 S.pneumoniae 1 (1) IgG S.pneumoniae 3 (3) IgG S.pneumoniae 4 (4) IgG S.pneumoniae 5 (5) IgG S.pneumoniae 8 (8) IgG S.pneumoniae 9 (9N) IgG S.pneumon 12 (12F) IgG S.pneumon 14 (14) IgG S.pneumon 19 (19F) IgG S.pneumon 23 (23F) IgG S.pneumon 26 (6B) IgG S.pneumon 51 (7F) IgG S.pneumon 56 (18C) IgG S.pneumon 68 (9V) IgG 08/04/25 07:34 WBC RBC Hgb Hct MCV MCH MCHC RDW Plt Count MPV Immature Gran % (Auto) Neut % (Auto) Lymph % (Auto) [place] % (Auto) Eos % (Auto) Baso % (Auto) Lymph # (Auto) [place] # (Auto) Eos # (Auto) Baso # (Auto) Abs Immat Gran (auto) Absolute Neuts (auto) Absolute Nucleated RBC Band Neutrophils % Nucleated RBC % Platelet Estimate Hypochromasia Anisocytosis Schistocytes Sodium Potassium Chloride Carbon Dioxide Anion Gap BUN Creatinine Estim Creat Clear Calc Estimated GFR Glucose POC Capillary Glucose 239 H Calcium Phosphorus Iron TIBC % Saturation Albumin S.pneumoniae 1 (1) IgG S.pneumoniae 3 (3) IgG S.pneumoniae 4 (4) IgG S.pneumoniae 5 (5) IgG S.pneumoniae 8 (8) IgG S.pneumoniae 9 (9N) IgG S.pneumon 12 (12F) IgG S.pneumon 14 (14) IgG S.pneumon 19 (19F) IgG S.pneumon 23 (23F) IgG S.pneumon 26 (6B) IgG S.pneumon 51 (7F) IgG S.pneumon 56 (18C) IgG S.pneumon 68 (9V) IgG
--- NOTE | 2025-08-04 09:37 | P.PNNP_ITS ---
Progress Note: A&P Assessment and Plan (1) ESRD (end stage renal disease): Code(s): N18.6 - End stage renal disease Status: Chronic Assessment and Plan: * HD will be ordered for tomorrow again. * transition back Tue/Tue/Tuesday dialysis schedule next week * Continue to remove fluid as tolerated. (2) Hypotension: Code(s): I95.9 - Hypotension, unspecified Status: Acute Assessment and Plan: * acute on chronic * etiology? * An echo done a year and half ago showed mild to moderate tricuspid regurgitation. and the 1 more recently shows moderate tricuspid regurg and moderate to severe aortic stenosis. * early sepsis/infection? * baseline systolic BP runs in the 90s for the last month * recently started on midodrine therapy from recent [facility] admission * follow culture data * off vasopressor therapy currently * on midodrine therapy (3) AMS (altered mental status): Qualifiers: Altered mental status type: transient alteration of awareness Qualified Code(s): R40.4 - Transient alteration of awareness Code(s): R41.82 - Altered mental status, unspecified Status: Acute Assessment and Plan: * improvement noted . However she can still be somewhat agitated/combative. * despite underlying dementia, usually alert and oriented x 3 * head CT negative * due to hypotension versus early sepsis/infection(?) * follow trend of mentation with current interventions (4) Acute hypoxic respiratory failure: Code(s): J96.01 - Acute respiratory failure with hypoxia Status: Acute Assessment and Plan: * as noted since admission * presumably due to volume overload (CHF + pulmonary edema) and recent pneumonia * admission imaging noted * fluid removal challenging in the context of hypotension (presumably a problem during recent hospitalization at [facility] as well) * ongoing fluid removal with HD/DUF * Repeat chest x-ray done today. It has not been read yet. The left side looks pretty good. The right side as some sort of process but is badly rotated so would difficult to read. Patient has some swelling but not terrible. I am not sure there is a whole lot more fluid to remove. (5) Urinary tract infection: Qualifiers: Hematuria presence: without hematuria Urinary tract infection type: acute cystitis Qualified Code(s): N30.00 - Acute cystitis without hematuria Code(s): N39.0 - Urinary tract infection, site not specified Status: Acute Assessment and Plan: * admission UA suggestive * follow culture data -- however, no urine culture done * on piperacillin alone now. (6) Volume overload: Code(s): E87.70 - Fluid overload, unspecified Status: Acute Assessment and Plan: * as suggested by evidence to date: * imaging with CHF findings and pulmonary edema * ~ 8kg above dry weight per outpatient dialysis clinic when seen on 07/29 * aggressive fluid removal with HD and DUF as tolerated by hemodynamics * Echo from admission to [facility] noted (07/23/25): * left ventricle is normal in size with estimated EF of 50 - 55% * right ventricular systolic function is at the lower limit of normal * moderate to severe aortic stenosis * no evidence of aortic valve regurgitation * mild to moderate mitral and pulmonic regurgitation * no evidence of mitral stenosis * moderate tricuspid regurgitation * moderate pulmonary hypertension * mildly dilated ascending aorta * almost 14L Removed with dialysis since admission. She is not taking all that much in. * more fluid off with dialysis on Tuesday (7) Anemia: Qualifiers: Anemia type: due to chronic kidney disease Chronic kidney disease stage: on chronic dialysis Qualified Code(s): N18.6 - End stage renal disease; D63.1 - Anemia in chronic kidney disease; Z99.2 - Dependence on renal dialysis Code(s): D64.9 - Anemia, unspecified Status: Chronic Assessment and Plan: * due to ESRD and acute illness * anemia studies noted: * evidence of mild iron deficiency * follow trend of H/H * Epogen with HD (8) DM type 2 (diabetes mellitus, type 2): Onset Date: ~2018 Qualifiers: Diabetes mellitus long term care social worker insulin use: without long term care social worker use Diabetes mellitus complication status: without complication Qualified Code(s): E11.9 - Type 2 diabetes mellitus without complications Code(s): E11.9 - Type 2 diabetes mellitus without complications Status: Chronic Assessment and Plan: * follow accu-cheks * glycemic control per hospitalist Subjective Date/time seen: 08/04/25 09:37 Interval history: Patient opens rise in regards examiner. The patient ate her breakfast. Exam Narrative: General: elderly but WD/WN female in NAD. Heart: IRRR, normal S1 and S2; no rub Lungs: breath sounds fairly clear Abdomen: obese but soft, nontender, nondistended, positive bowel sounds Extremities: no cyanosis or clubbing; 1+ edema (UEs and LEs) Skin: no rash or subcu nodule Objective Data Vital Signs Vital Signs: Vital Signs - 24 hr 08/03/25 09:45 08/03/25 10:00 08/03/25 10:00 Temperature Pulse Rate 102 H 73 106 H Respiratory Rate Blood Pressure 134/60 105/56 L Pulse Oximetry Oxygen Delivery Oxygen Flow Rate Fraction of Inspired Oxygen 08/03/25 10:15 08/03/25 10:30 08/03/25 10:45 Temperature Pulse Rate 88 92 80 Respiratory Rate Blood Pressure 92/48 L 85/41 L 88/42 L Pulse Oximetry Oxygen Delivery Oxygen Flow Rate Fraction of Inspired Oxygen 08/03/25 11:00 08/03/25 11:15 08/03/25 11:46 Temperature Pulse Rate 73 95 91 Respiratory Rate Blood Pressure 87/56 L 84/32 L 99/38 L Pulse Oximetry Oxygen Delivery Oxygen Flow Rate Fraction of Inspired Oxygen 08/03/25 12:00 08/03/25 12:00 08/03/25 12:15 Temperature Pulse Rate 82 115 H 84 Respiratory Rate Blood Pressure 90/50 L 97/26 L Pulse Oximetry Oxygen Delivery Oxygen Flow Rate Fraction of Inspired Oxygen 08/03/25 12:30 08/03/25 12:48 08/03/25 12:57 Temperature 97.5 F L Pulse Rate 86 50 L 50 L Respiratory Rate 14 Blood Pressure 100/29 L 90/36 L 104/38 L Pulse Oximetry 94 Oxygen Delivery Oxygen Flow Rate Fraction of Inspired Oxygen 08/03/25 13:27 08/03/25 14:00 08/03/25 15:15 Temperature 97.8 F Pulse Rate 130 H 126 H Respiratory Rate 20 Blood Pressure 96/51 L Pulse Oximetry 93 93 Oxygen Delivery Nasal Cannula Oxygen Flow Rate 2 Fraction of Inspired Oxygen 08/03/25 16:00 08/03/25 16:00 08/03/25 16:35 Temperature 98.2 F Pulse Rate 119 H 118 H 134 H Respiratory Rate 20 Blood Pressure 98/66 L Pulse Oximetry 99 Oxygen Delivery Oxygen Flow Rate Fraction of Inspired Oxygen 08/03/25 18:00 08/03/25 20:00 08/03/25 20:00 Temperature 98.8 F Pulse Rate 106 H 109 H 101 H Respiratory Rate 20 Blood Pressure 95/62 L Pulse Oximetry 99 Oxygen Delivery Oxygen Flow Rate Fraction of Inspired Oxygen 08/03/25 20:00 08/03/25 22:00 08/03/25 23:30 Temperature Pulse Rate 109 H 109 H Respiratory Rate Blood Pressure Pulse Oximetry 100 Oxygen Delivery Nasal Cannula Oxygen Flow Rate 2 Fraction of Inspired Oxygen 08/04/25 00:00 08/04/25 00:00 08/04/25 00:00 Temperature 98.7 F Pulse Rate 112 H 103 H Respiratory Rate 20 Blood Pressure 87/52 L Pulse Oximetry 100 100 Oxygen Delivery Nasal Cannula Oxygen Flow Rate 2 Fraction of Inspired Oxygen 08/04/25 02:00 08/04/25 04:00 08/04/25 04:00 Temperature 98.7 F Pulse Rate 105 H 111 H Respiratory Rate 18 Blood Pressure 91/51 L Pulse Oximetry 100 100 Oxygen Delivery Nasal Cannula Oxygen Flow Rate 2 Fraction of Inspired Oxygen 08/04/25 04:00 08/04/25 06:00 08/04/25 07:37 Temperature 98.6 F Pulse Rate 104 H 100 113 H Respiratory Rate 24 H Blood Pressure 109/57 L Pulse Oximetry 95 Oxygen Delivery Oxygen Flow Rate Fraction of Inspired Oxygen 08/04/25 08:40 Temperature Pulse Rate 82 Respiratory Rate 16 Blood Pressure Pulse Oximetry 91 Oxygen Delivery Nasal Cannula Oxygen Flow Rate 2 Fraction of Inspired Oxygen 28 Intake/Output Intake/Output: Intake & Output 08/01/25 08/02/25 08/03/25 08/04/25 23:59 23:59 23:59 23:59 Intake Total 510 1300 590 175 Output Total 4000 4000 3000 0 Balance -0356 -7833 -7102 175 Meds/Results Medications: Active Medications Generic Name Dose Route Start Last Admin Trade Name Freq PRN Reason Stop Dose Admin Acetaminophen 650 mg 07/29/25 15:59 08/03/25 08:22 Acetaminophen 325 Mg Tablet PO 650 mg Q4H PRN Administration Mild Pain (1-3) or Fever Acetaminophen 650 mg 07/29/25 17:04 Acetaminophen 650 Mg Suppository RECTAL Q6H PRN Mild Pain (1-3) or Fever Albuterol/Ipratropium 3 ml 07/29/25 19:52 Ipratropium 0.5 Mg/Albuterol Sulfate 2.5 Mg (Base) Ampul.Neb 3 Ml INHALATION Q4HRT PRN Shortness of Breath. Apixaban 5 mg 07/30/25 09:00 08/03/25 16:35 Apixaban 5 Mg Tablet PO 5 mg BID BIANKA Administration Aripiprazole 1 mg 07/31/25 21:00 08/03/25 22:28 Aripiprazole 1 Mg Tablet PO 1 mg HS BIANKA Administration Aripiprazole 2 mg 07/31/25 21:00 08/03/25 22:29 Aripiprazole 2 Mg Tablet BY MOUTH 2 mg HS BIANKA Administration Buspirone HCl 5 mg 07/31/25 17:00 08/03/25 18:15 Buspirone Hcl 5 Mg Tablet BY MOUTH 5 mg TID BIANKA Administration Dextrose 12.5 gm 07/29/25 19:52 Dextrose 50% 25 Gm/50 Ml Syringe IV PUSH PRN PRN Hypoglycemia Protocol Docusate Sodium 200 mg 07/31/25 17:00 08/03/25 16:36 Docusate Sodium 100 Mg Capsule PO 200 mg BID BIANKA Administration Glucagon 1 mg 07/29/25 19:52 Glucagon For Inj 1 Mg Vial IM PRN PRN Hypoglycemia Protocol Glucose 15 gm 07/29/25 19:52 Glucose Oral Gel 15 Gm Of Glucse In 37.5 Gm Tube PO PRN PRN Hypoglycemia Protocol Dextrose 1,000 mls @ 100 mls/hr 07/29/25 19:52 Dextrose 5% 1,000 Ml IVPB PRN PRN Hypoglycemia Protocol Albumin Human 50 mls @ 999 mls/hr 07/30/25 05:49 07/31/25 08:55 Albutein IVPB 08/29/25 05:48 999 mls/hr Q10M PRN Administration HYPOTENSION Piperacillin Sod/Tazobactam 50 mls @ 100 mls/hr 08/03/25 06:00 08/04/25 05:52 Sod 2.25 gm/ Sodium Chloride IVPB 100 mls/hr Q8HR BIANKA Administration Insulin Aspart 4 - 8 units 07/31/25 08:00 08/03/25 16:45 Insulin Aspart (*Bkc) 100 Units/Ml SUB-Q 4 units TIDWM BIANKA Administration Protocol Insulin Aspart 2 - 4 units 07/30/25 21:00 08/03/25 22:31 Insulin Aspart (*Bkc) 100 Units/Ml SUB-Q 2 units HS BIANKA Administration Protocol Insulin Glargine 10 units 08/02/25 09:00 08/03/25 08:21 Insulin Glargine (*Bkc) 100 Units/Ml SUB-Q 10 units DAILY BIANKA Administration Insulin Glargine 20 units 08/04/25 09:00 Insulin Glargine (*Bkc) 100 Units/Ml SUB-Q On Hold: 08/04/25 09:00 QAM BIANKA Memantine 5 mg 08/02/25 09:00 08/03/25 08:23 Memantine 5 Mg Tablet PO 08/09/25 08:59 5 mg QAM BIANKA Administration Memantine 5 mg 08/09/25 09:00 Memantine 5 Mg Tablet PO Q12HR BIANKA Methylphenidate HCl 10 mg 08/01/25 08:00 08/03/25 15:01 Methylphenidate Hcl (*Crx) 10 Mg Tablet PO 10 mg 0800,1200 [facility] Administration Metoprolol Tartrate 25 mg 08/03/25 21:00 08/03/25 23:30 Metoprolol Tartrate 25 Mg Tablet PO Not Given Q12HR [facility] Midodrine 10 mg 08/04/25 06:00 08/04/25 05:53 Midodrine Hcl 10 Mg Tablet PO 10 mg Q8HR BIANKA Administration Naloxone HCl 0.1 mg 07/29/25 20:26 Naloxone Hcl 0.4 Mg/Ml Vial IV PUSH Q5MIN PRN Sedation Non-Formulary Medication 30 mg 08/01/25 18:00 08/03/25 16:44 Tenapanor [Xphozah] PO 08/31/25 17:59 30 mg QPM BIANKA Administration Ondansetron HCl 4 mg 07/29/25 15:59 08/03/25 16:40 Ondansetron Inj 4 Mg/2 Ml Vial IV PUSH 4 mg Q4H PRN Administration Nausea Pantoprazole Sodium 40 mg 07/30/25 09:00 08/03/25 08:20 Pantoprazole Sodium Iv 40 Mg Vial IV PUSH 40 mg QAM BIANKA Administration Perflutren Lipid Microsphere 0 ml 08/03/25 11:20 Perflutren Lipid Microspheres 1.5 Ml Vial Diluted To 10 Ml Total Volume IV PUSH 08/06/25 11:20 ONCE PRN adequate visualization Protocol Rosuvastatin Calcium 10 mg 08/01/25 09:00 08/03/25 08:23 Rosuvastatin 10 Mg Tablet PO 10 mg DAILY BIANKA Administration Sertraline HCl 50 mg 08/01/25 09:00 08/03/25 08:22 Sertraline Hcl 50 Mg Tablet PO 50 mg DAILY BIANKA Administration Sodium Chloride 20 ml 07/29/25 15:58 Central Line Flush IV PUSH PRN PRN after blood draws Radiology Results: ITS Impressions Head CT 07/29/25 17:35 Impression: 1.No acute intracranial abnormality. Chest/Abdomen/Pelvis CT 07/29/25 18:21 IMPRESSION: CHEST- 1. Mild interstitial pulmonary edema with small left pleural effusions and bibasilar atelectasis. 2. No other acute abnormality. ABDOMEN/PELVIS- 1. No acute abnormality. 2. Additional findings as above. Labs Labs: Laboratory Results - last 24 hr 07/29/25 08/03/25 08/03/25 20:33 03:54 13:20 WBC RBC Hgb Hct MCV MCH MCHC RDW Plt Count MPV Immature Gran % (Auto) Neut % (Auto) Lymph % (Auto) [place] % (Auto) Eos % (Auto) Baso % (Auto) Lymph # (Auto) [place] # (Auto) Eos # (Auto) Baso # (Auto) Abs Immat Gran (auto) Absolute Neuts (auto) Absolute Nucleated RBC Band Neutrophils % Nucleated RBC % Platelet Estimate Hypochromasia Anisocytosis Schistocytes Sodium Potassium Chloride Carbon Dioxide Anion Gap BUN Creatinine Estim Creat Clear Calc Estimated GFR Glucose POC Capillary Glucose 164 H Calcium Phosphorus Iron 48 TIBC 186 L % Saturation 26 Albumin S.pneumoniae 1 (1) IgG 1.7 S.pneumoniae 3 (3) IgG 0.2 L S.pneumoniae 4 (4) IgG 0.8 L S.pneumoniae 5 (5) IgG 1.7 S.pneumoniae 8 (8) IgG 1.6 S.pneumoniae 9 (9N) IgG 1.7 S.pneumon 12 (12F) IgG 0.3 L S.pneumon 14 (14) IgG 2.8 S.pneumon 19 (19F) IgG 4.1 S.pneumon 23 (23F) IgG 0.9 L S.pneumon 26 (6B) IgG 0.5 L S.pneumon 51 (7F) IgG 4.3 S.pneumon 56 (18C) IgG 7.7 S.pneumon 68 (9V) IgG 3.3 08/03/25 08/03/25 08/04/25 15:48 20:30 04:33 WBC 9.4 RBC 3.18 L Hgb 9.4 L Hct 31.9 L MCV 100.3 H MCH 29.6 MCHC 29.5 L RDW 17.5 H Plt Count 250 MPV 9.9 Immature Gran % (Auto) 0.7 H Neut % (Auto) 75.0 H Lymph % (Auto) 11.2 L [place] % (Auto) 11.0 H Eos % (Auto) 1.5 Baso % (Auto) 0.6 Lymph # (Auto) 1.06 [place] # (Auto) 1.0 H Eos # (Auto) 0.1 Baso # (Auto) 0.1 Abs Immat Gran (auto) 0.07 H Absolute Neuts (auto) 7.1 H Absolute Nucleated RBC 0.060 H Band Neutrophils % Not Reportable Nucleated RBC % 0.6 H Platelet Estimate Adequate Hypochromasia 1+ Anisocytosis 1+ Schistocytes None seen Sodium 138 Potassium 3.8 Chloride 92 L Carbon Dioxide 30 Anion Gap 16 H BUN 35 H Creatinine 3.74 H Estim Creat Clear Calc 13 Estimated GFR 12 L Glucose 220 H POC Capillary Glucose 219 H 268 H Calcium 10.9 H Phosphorus 6.0 H Iron TIBC % Saturation Albumin 4.7 S.pneumoniae 1 (1) IgG S.pneumoniae 3 (3) IgG S.pneumoniae 4 (4) IgG S.pneumoniae 5 (5) IgG S.pneumoniae 8 (8) IgG S.pneumoniae 9 (9N) IgG S.pneumon 12 (12F) IgG S.pneumon 14 (14) IgG S.pneumon 19 (19F) IgG S.pneumon 23 (23F) IgG S.pneumon 26 (6B) IgG S.pneumon 51 (7F) IgG S.pneumon 56 (18C) IgG S.pneumon 68 (9V) IgG 08/04/25 07:34 WBC RBC Hgb Hct MCV MCH MCHC RDW Plt Count MPV Immature Gran % (Auto) Neut % (Auto) Lymph % (Auto) [place] % (Auto) Eos % (Auto) Baso % (Auto) Lymph # (Auto) [place] # (Auto) Eos # (Auto) Baso # (Auto) Abs Immat Gran (auto) Absolute Neuts (auto) Absolute Nucleated RBC Band Neutrophils % Nucleated RBC % Platelet Estimate Hypochromasia Anisocytosis Schistocytes Sodium Potassium Chloride Carbon Dioxide Anion Gap BUN Creatinine Estim Creat Clear Calc Estimated GFR Glucose POC Capillary Glucose 239 H Calcium Phosphorus Iron TIBC % Saturation Albumin S.pneumoniae 1 (1) IgG S.pneumoniae 3 (3) IgG S.pneumoniae 4 (4) IgG S.pneumoniae 5 (5) IgG S.pneumoniae 8 (8) IgG S.pneumoniae 9 (9N) IgG S.pneumon 12 (12F) IgG S.pneumon 14 (14) IgG S.pneumon 19 (19F) IgG S.pneumon 23 (23F) IgG S.pneumon 26 (6B) IgG S.pneumon 51 (7F) IgG S.pneumon 56 (18C) IgG S.pneumon 68 (9V) IgG
[2025-08-04] MEDS: MEMANTINE 5 MG TABLET PO (10:34)
[2025-08-04] MEDS: DOCUSATE SODIUM 100 MG CAPSULE 200 MG PO ×2 (10:34→17:26)
[2025-08-04] MEDS: ACETAMINOPHEN 325 MG TABLET 650 MG PO (10:34)
[2025-08-04] MEDS: ROSUVASTATIN 10 MG TABLET PO (10:34)
[2025-08-04] MEDS: PANTOPRAZOLE SODIUM IV 40 MG VIAL IV PUSH (10:34)
[2025-08-04] MEDS: APIXABAN 5 MG TABLET PO ×2 (10:34→17:26)
[2025-08-04] MEDS: SERTRALINE HCL 50 MG TABLET PO (10:35)
[2025-08-04] MEDS: methylPHENIDATE HCL (*CRX) 10 MG TABLET PO ×2 (10:36→14:57)
[2025-08-04] MEDS: METOPROLOL TARTRATE 25 MG TABLET PO (10:37)
[2025-08-04] MEDS: INSULIN GLARGINE (*BKC) 100 UNITS/ML 10 UNITS SUB-Q (10:42)
[2025-08-04] MEDS: INSULIN ASPART (*BKC) 100 UNITS/ML SUB-Q ×3 (13:01→21:55)
[2025-08-04] MEDS: [UNRECOGNIZED DRUG - OTHER] PO (17:26)
[2025-08-04] MEDS: TENAPANOR 30 MG PO (17:26)
[2025-08-05] VITALS (33 sets, daily range): BP systolic 70–161; BP diastolic 21–110; PULSE 54–126; RESP 18–26; TEMP 36.4–37; O2SAT 92–100
--- NOTE | 2025-08-05 | ECHO_ITS ---
Patient Info Name: Maria R Barrientos Age: 80 years : 1945 Gender: Female Ht: 64 in Wt: 245 lbs BSA: 2.30 m2 HR: 125 bpm BP: 95 / 55 mmHg Technical Quality: Fair Exam Date: 08/05/2025 2:30 PM Patient Status: I Admit Date: 07/29/2025 Exam Type: CA echo limited Limited two-dimensional transthoracic echocardiogram is performed. Staff Referring Physician: Wanda Ledbetter MD Floor Cleaner: Hima Quigley III Attending Provider: Quincy Wilkes Summary 1. Prior echo 07/23/2025 [place]. 2. There is normal biventricular size and systolic function. 3. The aortic valve is trileaflet and calcified. There visually appears to be mild to moderate aortic stenosis. 4. There is mitral annular calcification calcification of the sub mitral apparatus. The mitral valve leaflets are sclerotic. There is mild mitral regurgitation. Left Ventricle The left ventricle is normal in size and systolic function. The left ventricular ejection fraction is visually estimated to be 60-65%. Right Ventricle The right ventricle is normal in size and systolic function. Aortic Valve The aortic valve is trileaflet and calcified. There visually appears to be mild to moderate aortic stenosis. Pulmonic Valve The pulmonic valve is normal. Mitral Valve There is mitral annular calcification calcification of the sub mitral apparatus. The mitral valve leaflets are sclerotic. There is mild mitral regurgitation. Tricuspid Valve The tricuspid valve is grossly normal. Pericardium/Pleural Pericardium is normal in appearance with no evidence for significant pericardial effusion. Mitral Valve Name Value Normal MV Regurgitation Doppler MR Peak Gradient 106 mmHg Aortic Valve Name Value Normal AV Doppler AV Peak Velocity 407 cm/s AV Peak Gradient 66 mmHg Ventricles Name Value Normal LV Dimensions 2D/MM IVS Diastolic Thickness (2D) 1.4 cm 0.6-1.0 LVID Diastole (2D) 4.0 cm 3.8-5.2 LVIW Diastolic Thickness (2D) 1.2 cm 0.6-0.9 LVID Systole (2D) 3.0 cm 2.2-3.5 LV Mass (2D Cubed) 189.50 g 67.00-162.00 LV Mass Index (2D Cubed) 82 g/m2 43-95 Relative Wall Thickness (2D) 0.60 <=0.42 LV Fractional Shortening/Ejection Fraction 2D/MM LV Fractional Shortening (2D) 26 % 27-45 LV EF (2D Teichholz) 52 % LV Diastolic Volume (4C MOD) 77 ml LV EF (4C MOD) 57 % LV Diastolic Volume (2C MOD) 68 ml LV EF (2C MOD) 55 % LV Diastolic Volume (BP MOD) 76 ml 46-106 LV Diastolic Volume Index (BP MOD) 33 ml/m2 29-61 LV Systolic Volume (BP MOD) 32 ml 14-42 LV Systolic Volume Index (BP MOD) 14 ml/m2 8-24 LV EF (BP MOD) 57 % 54-74 LV Diastolic Length (4C) 6.7 cm LV Systolic Length (4C) 5.7 cm LV Stroke Volume (4C MOD) 44 ml Report Signatures
[2025-08-05 05:12] LABS: Albumin Level 4.3 g/dL (3.5-5.1); Anion Gap 19 mmol/L (4-12); Blood Urea Nitrogen 60 mg/dL (7-17); Calcium 10.5 mg/dL (8.4-10.2); Carbon Dioxide 22 mmol/L (22-30); Chloride 93 mmol/L (98-107); Estimated CRCL calculation 9 ml/min; Estimated Glomerular Filt Rate 8; Glucose 267 mg/dL (65-110); Potassium 4.1 mmol/L (3.4-5.0); Sodium 134 mmol/L (137-145)
[2025-08-05] MEDS: PIPERACILLIN/TAZOBACTAM SOD 2.25 GM in SODIUM CHLORIDE 0.9% IV 50 ML 100 ML IVPB ×3 (05:33→21:20)
[2025-08-05] MEDS: MIDODRINE HCL 10 MG TABLET PO ×3 (05:34→21:20)
[2025-08-05 07:07] LABS: Hematocrit 31.5 % (37.0-47.0); Hemoglobin 9.5 g/dL (12.0-15.0); Mean Corpuscular HGB Conc 30.2 g/dl (32-36); Mean Corpuscular Hemoglobin 29.7 pg (26-34); Mean Corpuscular Volume 98.4 fl (80-100); Platelet Count Result 273 k/mm3 (150-375); Red Blood Count 3.20 M/mm3 (4.2-5.4); White Blood Count 12.0 K/mm3 (4.5-10.0)
[2025-08-05] MEDS: APIXABAN 5 MG TABLET PO ×2 (08:16→17:10)
[2025-08-05] MEDS: MEMANTINE 5 MG TABLET PO (08:16)
[2025-08-05] MEDS: SERTRALINE HCL 50 MG TABLET PO (08:16)
[2025-08-05] MEDS: DOCUSATE SODIUM 100 MG CAPSULE 200 MG PO ×2 (08:16→17:10)
[2025-08-05] MEDS: methylPHENIDATE HCL (*CRX) 10 MG TABLET PO ×2 (08:16→12:31)
[2025-08-05] MEDS: ROSUVASTATIN 10 MG TABLET PO (08:16)
[2025-08-05] MEDS: PANTOPRAZOLE SODIUM IV 40 MG VIAL IV PUSH (08:17)
--- NOTE | 2025-08-05 08:38 | PC.NURSE ---
pt taken to dialysis
[2025-08-05] MEDS: ALBUMIN HUMAN 25% 12.5 GM/50ML 50 ML IVPB ×2 (08:53→09:13)
--- NOTE | 2025-08-05 09:31 | P.PNNP_ITS ---
Progress Note: A&P Assessment and Plan (1) ESRD (end stage renal disease): Code(s): N18.6 - End stage renal disease Status: Chronic Assessment and Plan: * HD today * resume Tue/Tue/Tuesday dialysis schedule this week * follow electrolytes, volume status, and clearance (2) Hypotension: Code(s): I95.9 - Hypotension, unspecified Status: Acute Assessment and Plan: * acute on chronic * etiology? * recent and previous echocardiograms noted * baseline systolic BP runs in the 90s for the last month * recently started on midodrine therapy from recent [facility] admission * remains on midodrine therapy (3) AMS (altered mental status): Qualifiers: Altered mental status type: transient alteration of awareness Qualified Code(s): R40.4 - Transient alteration of awareness Code(s): R41.82 - Altered mental status, unspecified Status: Acute Assessment and Plan: * improvement noted * despite underlying dementia, usually alert and oriented x 3 * head CT negative * due to hypotension versus infection (i.e. pneumonia?) * continue supportive therapy (4) Acute hypoxic respiratory failure: Code(s): J96.01 - Acute respiratory failure with hypoxia Status: Acute Assessment and Plan: * as noted since admission * presumably due to volume overload (CHF + pulmonary edema) and recent pneumonia * admission imaging noted * fluid removal challenging in the context of hypotension (presumably a problem during recent hospitalization at [facility] as well) * ongoing fluid removal with HD/DUF * recent CXR noted * wean supplemental oxygen as tolerated (5) Urinary tract infection: Qualifiers: Hematuria presence: without hematuria Urinary tract infection type: a cute cystitis Qualified Code(s): N30.00 - Acute cystitis without hematuria Code(s): N39.0 - Urinary tract infection, site not specified Status: Acute Assessment and Plan: * admission UA suggestive * follow culture data -- however, no urine culture done * on antibiotics (6) Volume overload: Code(s): E87.70 - Fluid overload, unspecified Status: Acute Assessment and Plan: * as suggested by evidence to date: * imaging with CHF findings and pulmonary edema * ~ 8kg above dry weight per outpatient dialysis clinic when seen on 07/29 * aggressive fluid removal with HD and DUF as tolerated by hemodynamics * Echo from admission to [facility] noted (07/23/25): * left ventricle is normal in size with estimated EF of 50 - 55% * right ventricular systolic function is at the lower limit of normal * moderate to severe aortic stenosis * no evidence of aortic valve regurgitation * mild to moderate mitral and pulmonic regurgitation * no evidence of mitral stenosis * moderate tricuspid regurgitation * moderate pulmonary hypertension * mildly dilated ascending aorta * almost 11L negative since admission * follow respiratory status and clinical exam (7) Anemia: Qualifiers: Anemia type: due to chronic kidney disease Chronic kidney disease stage: on chronic dialysis Qualified Code(s): N18.6 - End stage renal disease; D63.1 - Anemia in chronic kidney disease; Z99.2 - Dependence on renal dialysis Code(s): D64.9 - Anemia, unspecified Status: Chronic Assessment and Plan: * due to ESRD and acute illness * anemia studies noted: * evidence of mild iron deficiency * follow trend of H/H * Epogen with HD (8) DM type 2 (diabetes mellitus, type 2): Onset Date: ~2018 Qualifiers: Diabetes mellitus complication status: without complication Diabetes mellitus intermediate teacher insulin use: without intermediate teacher use Qualified Code(s): E11.9 - Type 2 diabetes mellitus without complications Code(s): E11.9 - Type 2 diabetes mellitus without complications Status: Chronic Assessment and Plan: * follow accu-cheks * glycemic control per hospitalist Will continue to follow. L Subjective Date/time seen: 08/05/25 09:31 Interval history: Following for end stage renal disease on hemodialysis. Chart reviewed since last seen - tolerating dialysis treatment at the time of my visit (seen on HD at 9:20am); no apparent distress noted when seen; breathing/respiratory status seens stable (although still requiring supplemental oxygen); no other events overnight or earlier this morning. Exam 2 Narrative: General: elderly but WD/WN female in NAD Heart: IRRR, normal S1 and S2; no rub Lungs: coarse breath sounds; decreased at bases Abdomen: obese but soft, nontender, nondistended, positive bowel sounds Extremities: no cyanosis or clubbing; trace - 1+ edema (UEs and LEs) Skin: no nodules Objective Data Vital Signs Vital Signs: Vital Signs Temp Pulse Resp BP Pulse Ox O2 Del Method O2 Flow Rate 08/05/25 09:30 106 H 70/59 L 08/05/25 09:15 106 H 101/59 L 08/05/25 09:00 101 H 95/64 L 08/05/25 08:53 124 H 94/47 L 08/05/25 08:33 97.8 F 81 20 161/110 H 99 08/05/25 08:33 2 08/05/25 08:00 98.1 F 126 H 24 H 102/58 L 97 08/05/25 08:00 97 Nasal Cannula 2 08/05/25 06:00 125 H 08/05/25 04:00 97.7 F 125 H 20 95/55 L 93 08/05/25 04:00 105 H 08/05/25 04:00 100 Nasal Cannula 2 08/05/25 02:00 106 H 08/05/25 00:00 116/55 L 98 08/05/25 00:00 104 H 08/05/25 00:00 100 Nasal Cannula 2 08/05/25 00:00 97.8 F 102 H 21 H 82/67 L 93 08/04/25 22:00 102 H 08/04/25 21:45 103 H 24 H 99/51 L 98 08/04/25 20:00 97 08/04/25 20:00 98 Nasal Cannula 2 08/04/25 20:00 98.1 F 96 34 H 89/53 L 99 08/04/25 18:00 103 H 08/04/25 16:00 94 08/04/25 16:00 93 Nasal Cannula 2 08/04/25 15:09 98.4 F 98 18 109/58 L 100 08/04/25 14:00 92 Intake/Output Intake/Output: Intake & Output 08/02/25 08/03/25 08/04/25 08/05/25 23:59 23:59 23:59 23:59 Intake Total 1300 590 665 390 Output Total 4000 3000 0 Balance -2700 -2410 665 390 Meds/Results Medications: Active Medications Generic Name Dose Route Start Last Admin Trade Name Freq PRN Reason Stop Dose Admin Acetaminophen 650 mg 07/29/25 15:59 08/04/25 10:34 Acetaminophen 325 Mg Tablet PO 650 mg Q4H PRN Administration Mild Pain (1-3) or Fever Acetaminophen 650 mg 07/29/25 17:04 Acetaminophen 650 Mg Suppository RECTAL Q6H PRN Mild Pain (1-3) or Fever Albuterol/Ipratropium 3 ml 07/29/25 19:52 Ipratropium 0.5 Mg/Albuterol Sulfate 2.5 Mg (Base) Ampul.Neb 3 Ml INHALATION Q4HRT PRN Shortness of Breath. Apixaban 5 mg 07/30/25 09:00 08/05/25 08:16 Apixaban 5 Mg Tablet PO 5 mg BID BIANKA Administration Aripiprazole 1 mg 07/31/25 21:00 08/04/25 21:44 Aripiprazole 1 Mg Tablet PO 1 mg HS BIANKA Administration Aripiprazole 2 mg 07/31/25 21:00 08/04/25 21:44 Aripiprazole 2 Mg Tablet BY MOUTH 2 mg HS BIANKA Administration Buspirone HCl 5 mg 07/31/25 17:00 08/05/25 08:16 Buspirone Hcl 5 Mg Tablet BY MOUTH 5 mg TID BIANKA Administration Dextrose 12.5 gm 07/29/25 19:52 Dextrose 50% 25 Gm/50 Ml Syringe IV PUSH PRN PRN Hypoglycemia Protocol Docusate Sodium 200 mg 07/31/25 17:00 08/05/25 08:16 Docusate Sodium 100 Mg Capsule PO 200 mg BID BIANKA Administration Epoetin Austin-epbx 10,000 units 08/05/25 18:00 Epoetin [place]-Epbx 10,000 Units/Ml Vial IV PUSH 08/05/25 18:01 ONCE ONE Glucagon 1 mg 07/29/25 19:52 Glucagon For Inj 1 Mg Vial IM PRN PRN Hypoglycemia Protocol Glucose 15 gm 07/29/25 19:52 Glucose Oral Gel 15 Gm Of Glucse In 37.5 Gm Tube PO PRN PRN Hypoglycemia Protocol Dextrose 1,000 mls @ 100 mls/hr 07/29/25 19:52 Dextrose 5% 1,000 Ml IVPB PRN PRN Hypoglycemia Protocol Albumin Human 50 mls @ 999 mls/hr 07/30/25 05:49 08/05/25 09:13 Albutein IVPB 08/29/25 05:48 999 mls/hr Q10M PRN Administration HYPOTENSION Piperacillin Sod/Tazobactam 50 mls @ 100 mls/hr 08/03/25 06:00 08/05/25 05:33 Sod 2.25 gm/ Sodium Chloride IVPB 100 mls/hr Q8HR BIANKA Administration Insulin Aspart 4 - 8 units 07/31/25 08:00 08/05/25 10:48 Insulin Aspart (*Bkc) 100 Units/Ml SUB-Q Not Given TIDWM [facility] Protocol Insulin Aspart 2 - 4 units 07/30/25 21:00 08/04/25 21:55 Insulin Aspart (*Bkc) 100 Units/Ml SUB-Q 2 units HS BIANKA Administration Protocol Insulin Glargine 10 units 08/02/25 09:00 08/04/25 10:42 Insulin Glargine (*Bkc) 100 Units/Ml SUB-Q 10 units DAILY BIANKA Administration Insulin Glargine 20 units 08/04/25 09:00 Insulin Glargine (*Bkc) 100 Units/Ml SUB-Q On Hold: 08/04/25 09:00 QAM BIANKA Memantine 5 mg 08/02/25 09:00 08/05/25 08:16 Memantine 5 Mg Tablet PO 08/09/25 08:59 5 mg QAM BIANKA Administration Memantine 5 mg 08/09/25 09:00 Memantine 5 Mg Tablet PO Q12HR BIANKA Methylphenidate HCl 10 mg 08/01/25 08:00 08/05/25 08:16 Methylphenidate Hcl (*Crx) 10 Mg Tablet PO 10 mg 0800,1200 [facility] Administration Metoprolol Tartrate 25 mg 08/03/25 21:00 08/05/25 08:15 Metoprolol Tartrate 25 Mg Tablet PO Not Given Q12HR BIANKA Midodrine 10 mg 08/04/25 06:00 08/05/25 05:34 Midodrine Hcl 10 Mg Tablet PO 10 mg Q8HR BIAKNA Administration Naloxone HCl 0.1 mg 07/29/25 20:26 Naloxone Hcl 0.4 Mg/Ml Vial IV PUSH Q5MIN PRN Sedation Non-Formulary Medication 30 mg 08/01/25 18:00 08/04/25 17:26 Tenapanor [Xphozah] PO 08/31/25 17:59 30 mg QPM BIANKA Administration Ondansetron HCl 4 mg 07/29/25 15:59 08/03/25 16:40 Ondansetron Inj 4 Mg/2 Ml Vial IV PUSH 4 mg Q4H PRN Administration Nausea Pantoprazole Sodium 40 mg 07/30/25 09:00 08/05/25 08:17 Pantoprazole Sodium Iv 40 Mg Vial IV PUSH 40 mg QAM BIANKA Administration Perflutren Lipid Microsphere 0 ml 08/03/25 11:20 Perflutren Lipid Microspheres 1.5 Ml Vial Diluted To 10 Ml Total Volume IV PUSH 08/06/25 11:20 ONCE PRN adequate visualization Protocol Rosuvastatin Calcium 10 mg 08/01/25 09:00 08/05/25 08:16 Rosuvastatin 10 Mg Tablet PO 10 mg DAILY BIANKA Administration Sertraline HCl 50 mg 08/01/25 09:00 08/05/25 08:16 Sertraline Hcl 50 Mg Tablet PO 50 mg DAILY BIANKA Administration Sodium Chloride 20 ml 07/29/25 15:58 Central Line Flush IV PUSH PRN PRN after blood draws Radiology Results: ITS Impressions Head CT 07/29/25 17:35 Impression: 1.No acute intracranial abnormality. Chest/Abdomen/Pelvis CT 07/29/25 18:21 IMPRESSION: CHEST- 1. Mild interstitial pulmonary edema with small left pleural effusions and bibasilar atelectasis. 2. No other acute abnormality. ABDOMEN/PELVIS- 1. No acute abnormality. 2. Additional findings as above. Chest X-Ray 08/05/25 08:35 IMPRESSION: 1. Persistent right perihilar and bibasilar opacities which represent atelectasis or pneumonia. 2. Cardiomegaly with enlargement of the central pulmonary arteries consistent with pulmonary arterial hypertension. Labs Labs: Laboratory Tests 08/05/25 06:56 08/05/25 04:36 Calcium 10.5 H Phosphorus 6.8 H Albumin 4.3 Microbiology 07/29/25 15:45 Blood Blood Culture - Final 07/29/25 14:23 Blood Blood Culture - Final
[2025-08-05] MEDS: EPOETIN ALFA-EPBX 10,000 UNITS/ML VIAL 10000 UNITS IV PUSH (11:54)
[2025-08-05] MEDS: ACETAMINOPHEN 325 MG TABLET 650 MG PO (12:31)
--- NOTE | 2025-08-05 14:05 | PCNWS ---
Weekly nutritional screen. Patient is tolerating current Renal diet with adequate intake 50-100% all meals. No weight loss reported. Noted glucose elevated, Sophie Padron NP agreed to add Diabetic diet to orders. No further nutritional recommendations at this time.
--- NOTE | 2025-08-05 14:42 | PM.IMPN ---
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 She was also started on midodrine at [facility] which will restart here -post dialysis patient more awake -continue to monitor electrolytes and treat underlying cause -CT brain which did not show any acute intracranial abnormality -07/31: Encephalopathy gradually improving this patient is more awake this morning, most likely related to uremia S since she had dialysis yesterday, she seems to be improving, will continue dialysis again today -08/01: Appreciate Neurology evaluation and recommendations, will add Namenda and EEG per Neurology recommendation -EEG was abnormal but neurology never saw the patient again after their first consultation. -----EEG results: 1. Mild diffuse background slowing and frontal intermittent rhythmic delta activity suggestive generalized encephalopathy or bihemispheric lesion.2. Focal slowing and sharp wave activity noted over the left temporal area. Focal slowing may raise possibility of underlying structural lesion. Sharp transients are considered nonspecific focal abnormality. However such abnormalities may be seen many elderly subjects and hence clinical and if necessary radiographic correlation may be helpful. (2) ESRD (end stage renal disease): Code(s): N18.6 - End stage renal disease Status: Chronic Assessment and Plan: End-stage renal disease on dialysis, Tuesday, Tuesday, Tuesday -after discussion with Nephrology, seems like patient has not been optimally dialyzed at [facility] and at outpatient dialysis center due to hypotension. Patient was 8-10 L positive from her dry weight -07/30: Dialyzed with 2500 mL in fluid removal, she did require Levophed and albumin during dialysis. -07/31: Dialyzed with 4000 mL in fluid removal -08/01: Dialyzed with 4000 mL in fluid removed -patient on midodrine t.i.d. -dialysis per Nephrology 08/02-dialyzed with 4000 mL and fluid removal 08/03-dialyzed with 3000 food review Per nephro, she will resume dialysis MWF -08/05 Pt recieved dialysis today. (3) Hypotension: Code(s): I95.9 - Hypotension, unspecified Status: Acute Assessment and Plan: Multifactorial, infection, 07/30: CT scan of the chest abdomen follows showed interstitial edema with small left pleural effusion. Abdomen and pelvis did not show any acute abnormality -records have been requested from [facility] -february after repeat an echocardiogram if it was not done at [facility] -continue Zosyn and vancomycin (07/29) will continue for a total of 7 days, discontinued on 08/05 -07/29: Preliminary blood cultures negative x2 -08/04-Hr 100. Resume home metoprolol 08/04/2025: Echocardiogram Summary ATRIAL FIBRILLATION WITH RAPID VENTRICULAR RESPONSE INCOMPLETE LEFT BUNDLE BRANCH BLOCK LEFT VENTRICULAR HYPERTROPHY WITH ST-T CHANGE MINIMAL Q WAVES- HIGH LATERAL LEADS BASELINE ARTIFACT- II, III, V1-V3 ABNORMAL ECG Compared to ECG 07/29/2025 12:56:03 HEART RATE HAS INCREASED (4) CHF (congestive heart failure): Qualifiers: Heart failure chronicity: acute on chronic Heart failure type: unspecified Qualified Code(s): I50.9 - Heart failure, unspecified Code(s): I50.9 - Heart failure, unspecified Status: Acute Assessment and Plan: Pulmonary edema on chest x-ray, could be related to CHF likely 2/2 Fluid overloaded 2/2 inadequate dialysis Dialysis per Nephrology 07/23/2025: Echocardiogram from [facility] left ventricle is normal in size with estimated EF of 50 - 55% right ventricular systolic function is at the lower limit of normal moderate to severe aortic stenosis no evidence of aortic valve regurgitation mild to moderate mitral and pulmonic regurgitation no evidence of mitral stenosis moderate tricuspid regurgitation moderate pulmonary hypertension mildly dilated ascending aorta (5) DM type 2 (diabetes mellitus, type 2): Onset Date: ~2018 Qualifiers: 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: without longterm use Diabetes mellitus complication status: without complication Qualified Code(s): E11.9 - Type 2 diabetes mellitus without complications Code(s): E11.9 - Type 2 diabetes mellitus without complications Status: Chronic Assessment and Plan: Continue Accu-Cheks and sliding scale insulin -increase Lantus 25 units daily (6) Atrial fibrillation: Qualifiers: Atrial fibrillation type: permanent Qualified Code(s): I48.21 - Permanent atrial fibrillation Code(s): I48.91 - Unspecified atrial fibrillation Status: Acute Assessment and Plan: History of atrial fibrillation, continue Eliquis and metoprolol Plan DVT prophylaxis: Eliquis Stress ulcer prophylaxis: no indication Nutrition: diabetic diet Code Status: Full code Subjective Date/time seen: 08/05/25 14:42 Interval history: Patient is more drowsy today. I saw her while she was getting dialysis. She was able to answer my questions. She did say that her feet were causing her some pain today. Her blood pressures are a little bit more stable today. Waiting for Nephrology to do okay to discharge. She will have completed empiric antibiotic therapy today for sepsis. Exam Narrative: GENERAL: Comfortable, no acute distress HENMT: moist mucous membranes RESPIRATORY: clear to auscultation, no increased respiratory effort CARDIO: Regular rate and rhythm GI: soft, nontender, bowel sounds present SKIN/EXTREMITIES: no rashes, no edema, no redness or tenderness NEURO: Decreased consciousness during dialysis Objective Data Vital Signs Vital Signs: Vital Signs - 24 hr 08/04/25 15:09 08/04/25 16:00 08/04/25 16:00 Temperature 98.4 F Pulse Rate 98 94 Respiratory Rate 18 Blood Pressure 109/58 L Pulse Oximetry 100 93 Oxygen Delivery Nasal Cannula Oxygen Flow Rate 2 08/04/25 18:00 08/04/25 20:00 08/04/25 20:00 Temperature 98.1 F Pulse Rate 103 H 96 Respiratory Rate 34 H Blood Pressure 89/53 L Pulse Oximetry 99 98 Oxygen Delivery Nasal Cannula Oxygen Flow Rate 2 08/04/25 20:00 08/04/25 21:45 08/04/25 22:00 Temperature Pulse Rate 97 103 H 102 H Respiratory Rate 24 H Blood Pressure 99/51 L Pulse Oximetry 98 Oxygen Delivery Oxygen Flow Rate 08/05/25 00:00 08/05/25 00:00 08/05/25 00:00 Temperature 97.8 F Pulse Rate 102 H 104 H Respiratory Rate 21 H Blood Pressure 82/67 L Pulse Oximetry 93 100 Oxygen Delivery Nasal Cannula Oxygen Flow Rate 2 08/05/25 00:00 08/05/25 02:00 08/05/25 04:00 Temperature Pulse Rate 106 H Respiratory Rate Blood Pressure 116/55 L Pulse Oximetry 98 100 Oxygen Delivery Nasal Cannula Oxygen Flow Rate 2 08/05/25 04:00 08/05/25 04:00 08/05/25 06:00 Temperature 97.7 F Pulse Rate 105 H 125 H 125 H Respiratory Rate 20 Blood Pressure 95/55 L Pulse Oximetry 93 Oxygen Delivery Oxygen Flow Rate 08/05/25 08:00 08/05/25 08:00 08/05/25 08:00 Temperature 98.1 F Pulse Rate 126 H 121 H Respiratory Rate 24 H Blood Pressure 102/58 L Pulse Oximetry 97 97 Oxygen Delivery Nasal Cannula Oxygen Flow Rate 2 08/05/25 08:33 08/05/25 08:33 08/05/25 08:53 Temperature 97.8 F Pulse Rate 81 124 H Respiratory Rate 20 Blood Pressure 161/110 H 94/47 L Pulse Oximetry 99 Oxygen Delivery Oxygen Flow Rate 2 08/05/25 09:00 08/05/25 09:15 08/05/25 09:30 Temperature Pulse Rate 101 H 106 H 106 H Respiratory Rate Blood Pressure 95/64 L 101/59 L 70/59 L Pulse Oximetry Oxygen Delivery Oxygen Flow Rate 08/05/25 09:32 08/05/25 09:45 08/05/25 10:00 Temperature Pulse Rate 105 H 84 94 Respiratory Rate Blood Pressure 101/63 100/70 99/69 L Pulse Oximetry Oxygen Delivery Oxygen Flow Rate 08/05/25 10:15 08/05/25 10:30 08/05/25 10:45 Temperature Pulse Rate 104 H 73 62 Respiratory Rate Blood Pressure 101/55 L 99/64 L 84/22 L Pulse Oximetry Oxygen Delivery Oxygen Flow Rate 08/05/25 11:00 08/05/25 11:15 08/05/25 11:29 Temperature Pulse Rate 80 57 L 54 L Respiratory Rate Blood Pressure 111/90 80/21 L 70/41 L Pulse Oximetry Oxygen Delivery Oxygen Flow Rate 08/05/25 11:30 08/05/25 11:45 08/05/25 11:55 Temperature Pulse Rate 54 L 54 L 63 Respiratory Rate Blood Pressure 129/90 86/54 L 159/51 H Pulse Oximetry Oxygen Delivery Oxygen Flow Rate 08/05/25 12:00 08/05/25 12:00 08/05/25 12:06 Temperature 97.9 F Pulse Rate 112 H 68 Respiratory Rate 18 Blood Pressure 91/52 L Pulse Oximetry 99 99 Oxygen Delivery Nasal Cannula Oxygen Flow Rate 2 08/05/25 12:35 08/05/25 13:59 Temperature 97.6 F Pulse Rate 108 H 113 H Respiratory Rate 26 H Blood Pressure 102/61 Pulse Oximetry 99 Oxygen Delivery Oxygen Flow Rate Intake/Output Intake/Output: Intake & Output 08/02/25 08/03/25 08/04/25 08/05/25 23:59 23:59 23:59 23:59 Intake Total 1300 590 665 440 Output Total 4000 3000 0 2240 Balance -2700 -2410 665 -1800 Meds/Results Medications: Active Medications Generic Name Dose Route Start Last Admin Trade Name Freq PRN Reason Stop Dose Admin Acetaminophen 650 mg 07/29/25 15:59 08/05/25 12:31 Acetaminophen 325 Mg Tablet PO 650 mg Q4H PRN Administration Mild Pain (1-3) or Fever Acetaminophen 650 mg 07/29/25 17:04 Acetaminophen 650 Mg Suppository RECTAL Q6H PRN Mild Pain (1-3) or Fever Albuterol/Ipratropium 3 ml 07/29/25 19:52 Ipratropium 0.5 Mg/Albuterol Sulfate 2.5 Mg (Base) Ampul.Neb 3 Ml INHALATION Q4HRT PRN Shortness of Breath. Apixaban 5 mg 07/30/25 09:00 08/05/25 08:16 Apixaban 5 Mg Tablet PO 5 mg BID BIANKA Administration Aripiprazole 1 mg 07/31/25 21:00 08/04/25 21:44 Aripiprazole 1 Mg Tablet PO 1 mg HS BIANKA Administration Aripiprazole 2 mg 07/31/25 21:00 08/04/25 21:44 Aripiprazole 2 Mg Tablet BY MOUTH 2 mg HS BIANKA Administration Buspirone HCl 5 mg 07/31/25 17:00 08/05/25 12:31 Buspirone Hcl 5 Mg Tablet BY MOUTH 5 mg TID BIANKA Administration Dextrose 12.5 gm 07/29/25 19:52 Dextrose 50% 25 Gm/50 Ml Syringe IV PUSH PRN PRN Hypoglycemia Protocol Docusate Sodium 200 mg 07/31/25 17:00 08/05/25 08:16 Docusate Sodium 100 Mg Capsule PO 200 mg BID BIANKA Administration Epoetin [place]-epbx 10,000 units 08/05/25 18:00 08/05/25 11:54 Epoetin [place]-Epbx 10,000 Units/Ml Vial IV PUSH 08/05/25 18:01 10,000 units ONCE ONE Administration Glucagon 1 mg 07/29/25 19:52 Glucagon For Inj 1 Mg Vial IM PRN PRN Hypoglycemia Protocol Glucose 15 gm 07/29/25 19:52 Glucose Oral Gel 15 Gm Of Glucse In 37.5 Gm Tube PO PRN PRN Hypoglycemia Protocol Dextrose 1,000 mls @ 100 mls/hr 07/29/25 19:52 Dextrose 5% 1,000 Ml IVPB PRN PRN Hypoglycemia Protocol Albumin Human 50 mls @ 999 mls/hr 07/30/25 05:49 08/05/25 09:13 Albutein IVPB 08/29/25 05:48 999 mls/hr Q10M PRN Administration HYPOTENSION Piperacillin Sod/Tazobactam 50 mls @ 100 mls/hr 08/03/25 06:00 08/05/25 13:26 Sod 2.25 gm/ Sodium Chloride IVPB 08/05/25 23:59 100 mls/hr Q8HR BIANKA Administration Insulin Aspart 4 - 8 units 07/31/25 08:00 08/05/25 12:31 Insulin Aspart (*Bkc) 100 Units/Ml SUB-Q Not Given TIDWM [facility] Protocol Insulin Aspart 2 - 4 units 07/30/25 21:00 08/04/25 21:55 Insulin Aspart (*Bkc) 100 Units/Ml SUB-Q 2 units HS BIANKA Administration Protocol Insulin Glargine 10 units 08/02/25 09:00 08/05/25 12:44 Insulin Glargine (*Bkc) 100 Units/Ml SUB-Q Not Given DAILY [facility] Insulin Glargine 20 units 08/04/25 09:00 Insulin Glargine (*Bkc) 100 Units/Ml SUB-Q On Hold: 08/04/25 09:00 QAM BIANKA Memantine 5 mg 08/02/25 09:00 08/05/25 08:16 Memantine 5 Mg Tablet PO 08/09/25 08:59 5 mg QAM BIANKA Administration Memantine 5 mg 08/09/25 09:00 Memantine 5 Mg Tablet PO Q12HR BIANKA Methylphenidate HCl 10 mg 08/01/25 08:00 08/05/25 12:31 Methylphenidate Hcl (*Crx) 10 Mg Tablet PO 10 mg 0800,1200 BIANKA Administration Metoprolol Tartrate 25 mg 08/03/25 21:00 08/05/25 08:15 Metoprolol Tartrate 25 Mg Tablet PO Not Given Q12HR BIANKA Midodrine 10 mg 08/04/25 06:00 08/05/25 13:25 Midodrine Hcl 10 Mg Tablet PO 10 mg Q8HR BIANKA Administration Naloxone HCl 0.1 mg 07/29/25 20:26 Naloxone Hcl 0.4 Mg/Ml Vial IV PUSH Q5MIN PRN Sedation Non-Formulary Medication 30 mg 08/01/25 18:00 08/04/25 17:26 Tenapanor [Xphozah] PO 08/31/25 17:59 30 mg QPM BIANKA Administration Ondansetron HCl 4 mg 07/29/25 15:59 08/03/25 16:40 Ondansetron Inj 4 Mg/2 Ml Vial IV PUSH 4 mg Q4H PRN Administration Nausea Pantoprazole Sodium 40 mg 07/30/25 09:00 08/05/25 08:17 Pantoprazole Sodium Iv 40 Mg Vial IV PUSH 40 mg QAM BIANKA Administration Perflutren Lipid Microsphere 0 ml 08/03/25 11:20 Perflutren Lipid Microspheres 1.5 Ml Vial Diluted To 10 Ml Total Volume IV PUSH 08/06/25 11:20 ONCE PRN adequate visualization Protocol Rosuvastatin Calcium 10 mg 08/01/25 09:00 08/05/25 08:16 Rosuvastatin 10 Mg Tablet PO 10 mg DAILY BIANKA Administration Sertraline HCl 50 mg 08/01/25 09:00 08/05/25 08:16 Sertraline Hcl 50 Mg Tablet PO 50 mg DAILY BIANKA Administration Sodium Chloride 20 ml 07/29/25 15:58 Central Line Flush IV PUSH PRN PRN after blood draws Radiology Results: ITS Impressions Head CT 07/29/25 17:35 Impression: 1.No acute intracranial abnormality. Chest/Abdomen/Pelvis CT 07/29/25 18:21 IMPRESSION: CHEST- 1. Mild interstitial pulmonary edema with small left pleural effusions and bibasilar atelectasis. 2. No other acute abnormality. ABDOMEN/PELVIS- 1. No acute abnormality. 2. Additional findings as above. Chest X-Ray 08/05/25 08:35 IMPRESSION: 1. Persistent right perihilar and bibasilar opacities which represent atelectasis or pneumonia. 2. Cardiomegaly with enlargement of the central pulmonary arteries consistent with pulmonary arterial hypertension. Labs Labs: Laboratory Results - last 24 hr 08/04/25 08/04/25 08/05/25 15:59 20:43 04:36 WBC RBC Hgb Hct MCV MCH MCHC RDW Plt Count MPV Sodium 134 L Potassium 4.1 Chloride 93 L Carbon Dioxide 22 Anion Gap 19 H BUN 60 H D Creatinine 5.30 H Estim Creat Clear Calc 9 Estimated GFR 8 L Glucose 267 H POC Capillary Glucose 207 H 250 H Calcium 10.5 H Phosphorus 6.8 H Albumin 4.3 08/05/25 08/05/25 08/05/25 06:47 06:56 12:31 WBC 12.0 H RBC 3.20 L Hgb 9.5 L Hct 31.5 L MCV 98.4 MCH 29.7 MCHC 30.2 L RDW 17.4 H Plt Count 273 MPV 10.2 Sodium Potassium Chloride Carbon Dioxide Anion Gap BUN Creatinine Estim Creat Clear Calc Estimated GFR Glucose POC Capillary Glucose 201 H 183 H Calcium Phosphorus Albumin
[2025-08-05] MEDS: INSULIN ASPART (*BKC) 100 UNITS/ML SUB-Q ×2 (17:10→21:21)
[2025-08-05] MEDS: [UNRECOGNIZED DRUG - OTHER] PO (17:11)
[2025-08-05] MEDS: TENAPANOR 30 MG PO (17:11)
--- NOTE | 2025-08-05 18:28 | PC.NURSE ---
Patient likes to play with tape. Daughter aware and confirmed this. Patient likes to pick at tape and put tape on her bedside table. Found patient with tape on her face and instructed patient that she can not put tape on her face. Pt verbalizes understanding, daughter made aware.
[2025-08-05] MEDS: METOPROLOL TARTRATE 25 MG TABLET PO (21:20)
[2025-08-06] VITALS (12 sets, daily range): BP systolic 91–122; BP diastolic 50–83; PULSE 85–120; RESP 18–22; TEMP 36.4–37.2; O2SAT 99–100
[2025-08-06] MEDS: MIDODRINE HCL 10 MG TABLET PO ×2 (05:52→21:57)
[2025-08-06] MEDS: SERTRALINE HCL 50 MG TABLET PO (09:01)
[2025-08-06] MEDS: PANTOPRAZOLE SODIUM IV 40 MG VIAL IV PUSH (09:01)
[2025-08-06] MEDS: MEMANTINE 5 MG TABLET PO (09:01)
[2025-08-06] MEDS: APIXABAN 5 MG TABLET PO ×2 (09:01→16:47)
[2025-08-06] MEDS: ROSUVASTATIN 10 MG TABLET PO (09:01)
[2025-08-06] MEDS: DOCUSATE SODIUM 100 MG CAPSULE 200 MG PO ×2 (09:01→16:47)
[2025-08-06] MEDS: METOPROLOL TARTRATE 25 MG TABLET PO ×2 (09:01→21:57)
[2025-08-06] MEDS: INSULIN GLARGINE (*BKC) 100 UNITS/ML 10 UNITS SUB-Q (09:04)
[2025-08-06] MEDS: methylPHENIDATE HCL (*CRX) 10 MG TABLET PO ×2 (09:04→12:05)
[2025-08-06] MEDS: INSULIN ASPART (*BKC) 100 UNITS/ML SUB-Q ×3 (09:04→22:05)
--- NOTE | 2025-08-06 10:29 | P.PNIM_ITS ---
Progress Note: A&P Assessment and Plan (1) Acute metabolic encephalopathy: Code(s): G93.41 - Metabolic encephalopathy Status: Acute Assessment and Plan: Patient presented with altered mental status/encephalopathy which could be related to uremia, infection along with hypotension -discussed with caponizer, who stated that patient is almost 8 L positive since at dry weight -unsure if patient has been dialyzed adequately at [facility] as well as [facility] dialysis [facility] due to low blood pressures. She was also started on midodrine at [facility] which will restart here -post dialysis patient more awake -continue to monitor electrolytes and treat underlying cause -CT brain which did not show any acute intracranial abnormality -07/31: Encephalopathy gradually improving this patient is more awake this morning, most likely related to uremia S since she had dialysis yesterday, she seems to be improving, will continue dialysis again today -08/01: Appreciate Neurology evaluation and recommendations, will add Namenda and EEG per Neurology recommendation -EEG was abnormal but neurology never saw the patient again after their first consultation. -----EEG results: 1. Mild diffuse background slowing and frontal intermittent rhythmic delta activity suggestive generalized encephalopathy or bihemispheric lesion.2. Focal slowing and sharp wave activity noted over the left temporal area. Focal slowing may raise possibility of underlying structural lesion. Sharp transients are considered nonspecific focal abnormality. However such abnormalities may be seen many elderly subjects and hence clinical and if necessary radiographic correlation may be helpful. (2) ESRD (end stage renal disease): Code(s): N18.6 - End stage renal disease Status: Chronic Assessment and Plan: End-stage renal disease on dialysis, Tuesday, Tuesday, Tuesday -after discussion with Nephrology, seems like patient has not been optimally dialyzed at [facility] and at outpatient dialysis center due to hypotension. Patient was 8-10 L positive from her dry weight -07/30: Dialyzed with 2500 mL in fluid removal, she did require Levophed and albumin during dialysis. -07/31: Dialyzed with 4000 mL in fluid removal -08/01: Dialyzed with 4000 mL in fluid removed -patient on midodrine t.i.d. -dialysis per Nephrology 08/02-dialyzed with 4000 mL and fluid removal 08/03-dialyzed with 3000 food review Per nephro, she will resume dialysis MWF -08/05 Pt recieved dialysis (3) Hypotension: Code(s): I95.9 - Hypotension, unspecified Status: Acute Assessment and Plan: Multifactorial, infection, 07/30: CT scan of the chest abdomen follows showed interstitial edema with sm all left pleural effusion. Abdomen and pelvis did not show any acute abnormality -records have been requested from [facility] -february after repeat an echocardiogram if it was not done at [facility] -continue Zosyn and vancomycin (07/29) will continue for a total of 7 days, discontinued on 08/05 -07/29: Preliminary blood cultures negative x2 -08/04-Hr 100. Resume home metoprolol 08/04/2025: Echocardiogram Summary ATRIAL FIBRILLATION WITH RAPID VENTRICULAR RESPONSE INCOMPLETE LEFT BUNDLE BRANCH BLOCK LEFT VENTRICULAR HYPERTROPHY WITH ST-T CHANGE MINIMAL Q WAVES- HIGH LATERAL LEADS BASELINE ARTIFACT- II, III, V1-V3 ABNORMAL ECG Compared to ECG 07/29/2025 12:56:03 HEART RATE HAS INCREASED (4) CHF (congestive heart failure): Qualifiers: Heart failure chronicity: acute on chronic Heart failure type: unspecified Qualified Code(s): I50.9 - Heart failure, unspecified Code(s): I50.9 - Heart failure, unspecified Status: Acute Assessment and Plan: Pulmonary edema on chest x-ray, could be related to CHF likely 2/2 Fluid overloaded 2/2 inadequate dialysis Dialysis per Nephrology 07/23/2025: Echocardiogram from [facility] * left ventricle is normal in size with estimated EF of 50 - 55% * right ventricular systolic function is at the lower limit of normal * moderate to severe aortic stenosis * no evidence of aortic valve regurgitation * mild to moderate mitral and pulmonic regurgitation * no evidence of mitral stenosis * moderate tricuspid regurgitation * moderate pulmonary hypertension * mildly dilated ascending aorta (5) DM type 2 (diabetes mellitus, type 2): Onset Date: ~2018 Qualifiers: Diabetes mellitus longterm insulin use: without watermaster use Diabetes mellitus complication status: without complication Qualified Code(s): E11.9 - Type 2 diabetes mellitus without complications Code(s): E11.9 - Type 2 diabetes mellitus without complications Status: Chronic Assessment and Plan: Continue Accu-Cheks and sliding scale insulin -increase Lantus 25 units daily (6) Atrial fibrillation: Qualifiers: Atrial fibrillation type: permanent Qualified Code(s): I48.21 - Permanent atrial fibrillation Code(s): I48.91 - Unspecified atrial fibrillation Status: Acute Assessment and Plan: History of atrial fibrillation, continue Eliquis and metoprolol Continue on telemetry monitoring Plan DVT prophylaxis: Eliquis Stress ulcer prophylaxis: no indication Nutrition: diabetic diet Code Status: Full code Subjective Date/time seen: 08/06/25 10:29 Interval history: Patient remains confused. Chart reviewed. Discussed with nursing staff. Labs reviewed. Review of Systems Review of Systems: All systems reviewed & are unremarkable except as noted in HPI and below Exam Narrative: GENERAL: Comfortable, no acute distress HENMT: moist mucous membranes RESPIRATORY: clear to auscultation, no increased respiratory effort CARDIO: Irregularly irregular rhythm mildly tachycardic GI: soft, nontender, bowel sounds present SKIN/EXTREMITIES: no rashes, no edema, no redness or tenderness NEURO: Awake and alert conversant oriented to self not to time and place Objective Data Vital Signs Vital Signs: Vital Signs - 24 hr 08/05/25 10:30 08/05/25 10:45 08/05/25 11:00 Temperature Pulse Rate 73 62 80 Respiratory Rate Blood Pressure 99/64 L 84/22 L 111/90 Pulse Oximetry Oxygen Delivery Oxygen Flow Rate Fraction of Inspired Oxygen 08/05/25 11:15 08/05/25 11:29 08/05/25 11:30 Temperature Pulse Rate 57 L 54 L 54 L Respiratory Rate Blood Pressure 80/21 L 70/41 L 129/90 Pulse Oximetry Oxygen Delivery Oxygen Flow Rate Fraction of Inspired Oxygen 08/05/25 11:45 08/05/25 11:55 08/05/25 12:00 Temperature Pulse Rate 54 L 63 112 H Respiratory Rate Blood Pressure 86/54 L 159/51 H Pulse Oximetry Oxygen Delivery Oxygen Flow Rate Fraction of Inspired Oxygen 08/05/25 12:00 08/05/25 12:06 08/05/25 12:35 Temperature 97.9 F 97.6 F Pulse Rate 68 108 H Respiratory Rate 18 26 H Blood Pressure 91/52 L 102/61 Pulse Oximetry 99 99 99 Oxygen Delivery Nasal Cannula Oxygen Flow Rate 2 Fraction of Inspired Oxygen 08/05/25 13:59 08/05/25 15:45 08/05/25 16:00 Temperature 97.9 F Pulse Rate 113 H 100 92 Respiratory Rate 20 Blood Pressure 127/71 Pulse Oximetry 100 Oxygen Delivery Oxygen Flow Rate Fraction of Inspired Oxygen 08/05/25 16:00 08/05/25 17:44 08/05/25 19:12 Temperature 97.7 F Pulse Rate 99 108 H Respiratory Rate 22 H Blood Pressure 91/56 L Pulse Oximetry 92 Oxygen Delivery Room Air Oxygen Flow Rate Fraction of Inspired Oxygen 08/05/25 20:00 08/05/25 20:00 08/05/25 21:20 Temperature Pulse Rate 108 H 108 H 116 H Respiratory Rate 22 H Blood Pressure Pulse Oximetry 92 Oxygen Delivery Nasal Cannula Oxygen Flow Rate 2 Fraction of Inspired Oxygen 08/05/25 22:00 08/06/25 00:00 08/06/25 00:00 Temperature Pulse Rate 110 H 98 98 Respiratory Rate 22 H Blood Pressure Pulse Oximetry 100 Oxygen Delivery Nasal Cannula Oxygen Flow Rate 2 Fraction of Inspired Oxygen 08/06/25 00:00 08/06/25 02:00 08/06/25 03:51 Temperature 98.2 F 97.8 F Pulse Rate 98 106 H 92 Respiratory Rate 20 20 Blood Pressure 122/83 120/72 Pulse Oximetry 100 100 Oxygen Delivery Oxygen Flow Rate Fraction of Inspired Oxygen 08/06/25 04:00 08/06/25 04:00 08/06/25 06:00 Temperature Pulse Rate 104 H 104 H 120 H Respiratory Rate 20 Blood Pressure Pulse Oximetry 100 Oxygen Delivery Nasal Cannula Oxygen Flow Rate 2 Fraction of Inspired Oxygen 08/06/25 08:00 08/06/25 09:01 Temperature 98.9 F Pulse Rate 104 H 97 Respiratory Rate 18 Blood Pressure 100/60 Pulse Oximetry 100 Oxygen Delivery Oxygen Flow Rate Fraction of Inspired Oxygen Intake/Output Intake/Output: Intake & Output 08/03/25 08/04/25 08/05/25 08/06/25 23:59 23:59 23:59 23:59 Intake Total 590 665 780 270 Output Total 3000 0 2240 Balance -2410 665 -1460 270 Meds/Results Medications: Active Medications Generic Name Dose Route Start Last Admin Trade Name Freq PRN Reason Stop Dose Admin Acetaminophen 650 mg 07/29/25 15:59 08/05/25 12:31 Acetaminophen 325 Mg Tablet PO 650 mg Q4H PRN Administration Mild Pain (1-3) or Fever Acetaminophen 650 mg 07/29/25 17:04 Acetaminophen 650 Mg Suppository RECTAL Q6H PRN Mild Pain (1-3) or Fever Albuterol/Ipratropium 3 ml 07/29/25 19:52 Ipratropium 0.5 Mg/Albuterol Sulfate 2.5 Mg (Base) Ampul.Neb 3 Ml INHALATION Q4HRT PRN Shortness of Breath. Apixaban 5 mg 07/30/25 09:00 08/06/25 09:01 Apixaban 5 Mg Tablet PO 5 mg BID BIANKA Administration Aripiprazole 1 mg 07/31/25 21:00 08/05/25 21:19 Aripiprazole 1 Mg Tablet PO 1 mg HS BIANKA Administration Aripiprazole 2 mg 07/31/25 21:00 08/05/25 21:20 Aripiprazole 2 Mg Tablet BY MOUTH 2 mg HS BIANKA Administration Buspirone HCl 5 mg 07/31/25 17:00 08/06/25 09:01 Buspirone Hcl 5 Mg Tablet BY MOUTH 5 mg TID BIANKA Administration Dextrose 12.5 gm 07/29/25 19:52 Dextrose 50% 25 Gm/50 Ml Syringe IV PUSH PRN PRN Hypoglycemia Protocol Docusate Sodium 200 mg 07/31/25 17:00 08/06/25 09:01 Docusate Sodium 100 Mg Capsule PO 200 mg BID BIANKA Administration Glucagon 1 mg 07/29/25 19:52 Glucagon For Inj 1 Mg Vial IM PRN PRN Hypoglycemia Protocol Glucose 15 gm 07/29/25 19:52 Glucose Oral Gel 15 Gm Of Glucse In 37.5 Gm Tube PO PRN PRN Hypoglycemia Protocol Dextrose 1,000 mls @ 100 mls/hr 07/29/25 19:52 Dextrose 5% 1,000 Ml IVPB PRN PRN Hypoglycemia Protocol Albumin Human 50 mls @ 999 mls/hr 07/30/25 05:49 08/05/25 09:13 Albutein IVPB 08/29/25 05:48 999 mls/hr Q10M PRN Administration HYPOTENSION Insulin Aspart 4 - 8 units 07/31/25 08:00 08/06/25 09:04 Insulin Aspart (*Bkc) 100 Units/Ml SUB-Q 5 units TIDWM BIANKA Administration Protocol Insulin Aspart 2 - 4 units 07/30/25 21:00 08/05/25 21:21 Insulin Aspart (*Bkc) 100 Units/Ml SUB-Q 2 units HS BIANKA Administration Protocol Insulin Glargine 10 units 08/02/25 09:00 08/06/25 09:04 Insulin Glargine (*Bkc) 100 Units/Ml SUB-Q 10 units DAILY BIANKA Administration Insulin Glargine 20 units 08/04/25 09:00 Insulin Glargine (*Bkc) 100 Units/Ml SUB-Q On Hold: 08/04/25 09:00 QAM BIANKA Memantine 5 mg 08/02/25 09:00 08/06/25 09:01 Memantine 5 Mg Tablet PO 08/09/25 08:59 5 mg QAM BIANKA Administration Memantine 5 mg 08/09/25 09:00 Memantine 5 Mg Tablet PO Q12HR BIANKA Methylphenidate HCl 10 mg 08/01/25 08:00 08/06/25 09:04 Methylphenidate Hcl (*Crx) 10 Mg Tablet PO 10 mg 0800,1200 BIANKA Administration Metoprolol Tartrate 25 mg 08/03/25 21:00 08/06/25 09:01 Metoprolol Tartrate 25 Mg Tablet PO 25 mg Q12HR BIANKA Administration Midodrine 10 mg 08/04/25 06:00 08/06/25 05:52 Midodrine Hcl 10 Mg Tablet PO 10 mg Q8HR BIANKA Administration Naloxone HCl 0.1 mg 07/29/25 20:26 Naloxone Hcl 0.4 Mg/Ml Vial IV PUSH Q5MIN PRN Sedation Non-Formulary Medication 30 mg 08/01/25 18:00 08/05/25 17:11 Tenapanor [Xphozah] PO 08/31/25 17:59 30 mg QPM BIANKA Administration Ondansetron HCl 4 mg 07/29/25 15:59 08/03/25 16:40 Ondansetron Inj 4 Mg/2 Ml Vial IV PUSH 4 mg Q4H PRN Administration Nausea Pantoprazole Sodium 40 mg 07/30/25 09:00 08/06/25 09:01 Pantoprazole Sodium Iv 40 Mg Vial IV PUSH 40 mg QAM BIANKA Administration Perflutren Lipid Microsphere 0 ml 08/03/25 11:20 Perflutren Lipid Microspheres 1.5 Ml Vial Diluted To 10 Ml Total Volume IV PUSH 08/06/25 11:20 ONCE PRN adequate visualization Protocol Rosuvastatin Calcium 10 mg 08/01/25 09:00 08/06/25 09:01 Rosuvastatin 10 Mg Tablet PO 10 mg DAILY BIANKA Administration Sertraline HCl 50 mg 08/01/25 09:00 08/06/25 09:01 Sertraline Hcl 50 Mg Tablet PO 50 mg DAILY BIANKA Administration Sodium Chloride 20 ml 07/29/25 15:58 Central Line Flush IV PUSH PRN PRN after blood draws Radiology Results: ITS Impressions Head CT 07/29/25 17:35 Impression: 1.No acute intracranial abnormality. Chest/Abdomen/Pelvis CT 07/29/25 18:21 IMPRESSION: CHEST- 1. Mild interstitial pulmonary edema with small left pleural effusions and bibasilar atelectasis. 2. No other acute abnormality. ABDOMEN/PELVIS- 1. No acute abnormality. 2. Additional findings as above. Chest X-Ray 08/05/25 08:35 IMPRESSION: 1. Persistent right perihilar and bibasilar opacities which represent atelectasis or pneumonia. 2. Cardiomegaly with enlargement of the central pulmonary arteries consistent with pulmonary arterial hypertension. Labs Labs: Laboratory Results - last 24 hr 08/05/25 08/05/25 08/05/25 12:31 16:20 20:20 POC Capillary Glucose 183 H 236 H 265 H 08/06/25 07:16 POC Capillary Glucose 253 H
--- NOTE | 2025-08-06 11:27 | P.PNNP_ITS ---
Progress Note: A&P Assessment and Plan (1) ESRD (end stage renal disease): Code(s): N18.6 - End stage renal disease Status: Chronic Assessment and Plan: * HD tomorrow * resume Tue/Tue/Tuesday dialysis schedule this week * follow electrolytes, volume status, and clearance (2) Hypotension: Code(s): I95.9 - Hypotension, unspecified Status: Acute Assessment and Plan: * acute on chronic * etiology? * recent and previous echocardiograms noted * baseline systolic BP runs in the 90s for the last month * recently started on midodrine therapy from recent [facility] admission * remains on midodrine therapy (3) AMS (altered mental status): Qualifiers: Altered mental status type: transient alteration of awareness Qualified Code(s): R40.4 - Transient alteration of awareness Code(s): R41.82 - Altered mental status, unspecified Status: Acute Assessment and Plan: * improvement noted * despite underlying dementia, usually alert and oriented x 3 * head CT negative * due to hypotension versus infection (i.e. pneumonia?) * continue supportive therapy (4) Acute hypoxic respiratory failure: Code(s): J96.01 - Acute respiratory failure with hypoxia Status: Acute Assessment and Plan: * slowly improving * as noted since admission * presumably due to volume overload (CHF + pulmonary edema) and recent pneumonia * admission imaging noted * fluid removal challenging in the context of hypotension (presumably a problem during recent hospitalization at [facility] as well) * ongoing fluid removal with HD/DUF * recent CXR noted * wean supplemental oxygen as tolerated (5) Urinary tract infection: Qualifiers: Hematuria presence: without hematuria Urinary tract infection type: a cute cystitis Qualified Code(s): N30.00 - Acute cystitis without hematuria Code(s): N39.0 - Urinary tract infection, site not specified Status: Acute Assessment and Plan: * admission UA suggestive * follow culture data -- however, no urine culture done * on antibiotics (6) Volume overload: Code(s): E87.70 - Fluid overload, unspecified Status: Acute Assessment and Plan: * as suggested by evidence to date: * imaging with CHF findings and pulmonary edema * ~ 8kg above dry weight per outpatient dialysis clinic when seen on 07/29 * aggressive fluid removal with HD and DUF as tolerated by hemodynamics * Echo from admission to [facility] noted (07/23/25): * left ventricle is normal in size with estimated EF of 50 - 55% * right ventricular systolic function is at the lower limit of normal * moderate to severe aortic stenosis * no evidence of aortic valve regurgitation * mild to moderate mitral and pulmonic regurgitation * no evidence of mitral stenosis * moderate tricuspid regurgitation * moderate pulmonary hypertension * mildly dilated ascending aorta * almost 12L negative since admission * follow respiratory status and clinical exam (7) Anemia: Qualifiers: Anemia type: due to chronic kidney disease Chronic kidney disease stage: on chronic dialysis Qualified Code(s): N18.6 - End stage renal disease; D63.1 - Anemia in chronic kidney disease; Z99.2 - Dependence on renal dialysis Code(s): D64.9 - Anemia, unspecified Status: Chronic Assessment and Plan: * due to ESRD and acute illness * anemia studies noted: * evidence of mild iron deficiency * follow trend of H/H * Epogen with HD (8) DM type 2 (diabetes mellitus, type 2): Onset Date: ~2018 Qualifiers: Diabetes mellitus group home insulin use: without intermediate card tender use Diabetes mellitus complication status: without complication Qualified Code(s): E11.9 - Type 2 diabetes mellitus without complications Code(s): E11.9 - Type 2 diabetes mellitus without complications Status: Chronic Assessment and Plan: * follow accu-cheks * glycemic control per hospitalist Will continue to follow. L Subjective Date/time seen: 08/06/25 11:27 Interval history: Following for end stage renal disease on hemodialysis. Tolerated dialysis treatment yesterday without any issues or problems; no apparent distress noted at the time of my visit; more conversant with me today in comparison to yesterday; breathing/respiratory status seems stable; hemodynamics remain reasonable on midodrine therapy; no other issues/events overnight or earlier this AM. Exam 2 Narrative: General: elderly but WD/WN female in NAD Heart: IRRR, normal S1 and S2; no rub Lungs: coarse breath sounds; decreased at bases Abdomen: obese but soft, nontender, nondistended, positive bowel sounds Extremities: no cyanosis or clubbing; trace edema (UEs and LEs) Skin: warm and dry Objective Data Vital Signs Vital Signs: Vital Signs Temp Pulse Resp BP Pulse Ox O2 Del Method O2 Flow Rate 08/06/25 11:00 97.7 F 94 18 91/52 L 100 08/06/25 09:01 97 08/06/25 08:00 96 08/06/25 08:00 98.9 F 104 H 18 100/60 100 08/06/25 06:00 120 H 08/06/25 04:00 104 H 08/06/25 04:00 104 H 20 100 Nasal Cannula 2 08/06/25 03:51 97.8 F 92 20 120/72 100 08/06/25 02:00 106 H 08/06/25 00:00 98.2 F 98 20 122/83 100 08/06/25 00:00 98 08/06/25 00:00 98 22 H 100 Nasal Cannula 2 08/05/25 22:00 110 H 08/05/25 21:20 116 H 08/05/25 20:00 108 H 08/05/25 20:00 108 H 22 H 92 Nasal Cannula 2 08/05/25 19:12 97.7 F 108 H 22 H 91/56 L 92 Intake/Output Intake/Output: Intake & Output 08/03/25 08/04/25 08/05/25 08/06/25 23:59 23:59 23:59 23:59 Intake Total 590 665 780 630 Output Total 3000 0 2240 Balance -2410 665 -1460 630 Meds/Results Medications: Active Medications Generic Name Dose Route Start Last Admin Trade Name Freq PRN Reason Stop Dose Admin Acetaminophen 650 mg 07/29/25 15:59 08/06/25 16:59 Acetaminophen 325 Mg Tablet PO 650 mg Q4H PRN Administration Mild Pain (1-3) or Fever Acetaminophen 650 mg 07/29/25 17:04 Acetaminophen 650 Mg Suppository RECTAL Q6H PRN Mild Pain (1-3) or Fever Albuterol/Ipratropium 3 ml 07/29/25 19:52 Ipratropium 0.5 Mg/Albuterol Sulfate 2.5 Mg (Base) Ampul.Neb 3 Ml INHALATION Q4HRT PRN Shortness of Breath. Apixaban 5 mg 07/30/25 09:00 08/06/25 16:47 Apixaban 5 Mg Tablet PO 5 mg BID BIANKA Administration Aripiprazole 1 mg 07/31/25 21:00 08/05/25 21:19 Aripiprazole 1 Mg Tablet PO 1 mg HS BIANKA Administration Aripiprazole 2 mg 07/31/25 21:00 08/05/25 21:20 Aripiprazole 2 Mg Tablet BY MOUTH 2 mg HS BIANKA Administration Buspirone HCl 5 mg 07/31/25 17:00 08/06/25 16:47 Buspirone Hcl 5 Mg Tablet BY MOUTH 5 mg TID BIANKA Administration Dextrose 12.5 gm 07/29/25 19:52 Dextrose 50% 25 Gm/50 Ml Syringe IV PUSH PRN PRN Hypoglycemia Protocol Docusate Sodium 200 mg 07/31/25 17:00 08/06/25 16:47 Docusate Sodium 100 Mg Capsule PO 200 mg BID BIANKA Administration Glucagon 1 mg 07/29/25 19:52 Glucagon For Inj 1 Mg Vial IM PRN PRN Hypoglycemia Protocol Glucose 15 gm 07/29/25 19:52 Glucose Oral Gel 15 Gm Of Glucse In 37.5 Gm Tube PO PRN PRN Hypoglycemia Protocol Dextrose 1,000 mls @ 100 mls/hr 07/29/25 19:52 Dextrose 5% 1,000 Ml IVPB PRN PRN Hypoglycemia Protocol Albumin Human 50 mls @ 999 mls/hr 07/30/25 05:49 08/05/25 09:13 Albutein IVPB 08/29/25 05:48 999 mls/hr Q10M PRN Administration HYPOTENSION Insulin Aspart 4 - 8 units 07/31/25 08:00 08/06/25 16:31 Insulin Aspart (*Bkc) 100 Units/Ml SUB-Q Not Given TIDWM BIANKA Protocol Insulin Aspart 2 - 4 units 07/30/25 21:00 08/05/25 21:21 Insulin Aspart (*Bkc) 100 Units/Ml SUB-Q 2 units HS BIANKA Administration Protocol Insulin Glargine 10 units 08/02/25 09:00 08/06/25 09:04 Insulin Glargine (*Bkc) 100 Units/Ml SUB-Q 10 units DAILY BIANKA Administration Insulin Glargine 20 units 08/04/25 09:00 Insulin Glargine (*Bkc) 100 Units/Ml SUB-Q On Hold: 08/04/25 09:00 QAM BIANKA Memantine 5 mg 08/02/25 09:00 08/06/25 09:01 Memantine 5 Mg Tablet PO 08/09/25 08:59 5 mg QAM BIANKA Administration Memantine 5 mg 08/09/25 09:00 Memantine 5 Mg Tablet PO Q12HR BIANKA Methylphenidate HCl 10 mg 08/01/25 08:00 08/06/25 12:05 Methylphenidate Hcl (*Crx) 10 Mg Tablet PO 10 mg 0800,1200 BIANKA Administration Metoprolol Tartrate 25 mg 08/03/25 21:00 08/06/25 09:01 Metoprolol Tartrate 25 Mg Tablet PO 25 mg Q12HR BIANKA Administration Midodrine 10 mg 08/04/25 06:00 08/06/25 15:37 Midodrine Hcl 10 Mg Tablet PO Not Given Q8HR BIANKA Naloxone HCl 0.1 mg 07/29/25 20:26 Naloxone Hcl 0.4 Mg/Ml Vial IV PUSH Q5MIN PRN Sedation Non-Formulary Medication 30 mg 08/01/25 18:00 08/06/25 16:48 Tenapanor [Xphozah] PO 08/31/25 17:59 30 mg QPM BIANKA Administration Ondansetron HCl 4 mg 07/29/25 15:59 08/03/25 16:40 Ondansetron Inj 4 Mg/2 Ml Vial IV PUSH 4 mg Q4H PRN Administration Nausea Pantoprazole Sodium 40 mg 07/30/25 09:00 08/06/25 09:01 Pantoprazole Sodium Iv 40 Mg Vial IV PUSH 40 mg QAM BIANKA Administration Rosuvastatin Calcium 10 mg 08/01/25 09:00 08/06/25 09:01 Rosuvastatin 10 Mg Tablet PO 10 mg DAILY BIANKA Administration Sertraline HCl 50 mg 08/01/25 09:00 08/06/25 09:01 Sertraline Hcl 50 Mg Tablet PO 50 mg DAILY BIANKA Administration Sodium Chloride 20 ml 07/29/25 15:58 Central Line Flush IV PUSH PRN PRN after blood draws Radiology Results: ITS Impressions Head CT 07/29/25 17:35 Impression: 1.No acute intracranial abnormality. Chest/Abdomen/Pelvis CT 07/29/25 18:21 IMPRESSION: CHEST- 1. Mild interstitial pulmonary edema with small left pleural effusions and bibasilar atelectasis. 2. No other acute abnormality. ABDOMEN/PELVIS- 1. No acute abnormality. 2. Additional findings as above. Chest X-Ray 08/05/25 08:35 IMPRESSION: 1. Persistent right perihilar and bibasilar opacities which represent atelectasis or pneumonia. 2. Cardiomegaly with enlargement of the central pulmonary arteries consistent with pulmonary arterial hypertension. Labs Labs: Laboratory Tests 08/05/25 06:56 08/05/25 04:36
--- NOTE | 2025-08-06 13:02 | PC.NURSE ---
This patient, Maria R Barrientos, was received from IMU on 08/06/25 at 1302. Patient/family oriented to unit policies and routines
[2025-08-06] MEDS: TENAPANOR 30 MG PO (16:48)
[2025-08-06] MEDS: [UNRECOGNIZED DRUG - OTHER] PO (16:48)
[2025-08-06] MEDS: ACETAMINOPHEN 325 MG TABLET 650 MG PO (16:59)
[2025-08-07] VITALS (27 sets, daily range): BP systolic 80–133; BP diastolic 34–83; PULSE 69–116; RESP 16–20; TEMP 36.1–37; O2SAT 90–100
[2025-08-07 05:16] LABS: Hematocrit 33.0 % (37.0-47.0); Hemoglobin 9.7 g/dL (12.0-15.0); Immature Granulocyte Percent A 0.8 % (0-0.5); Lymphocytes Absolute Auto 1.05 K/mm3 (0.9-3.2); Mean Corpuscular HGB Conc 29.4 g/dl (32-36); Mean Corpuscular Hemoglobin 29.0 pg (26-34); Mean Corpuscular Volume 98.5 fl (80-100); Nucleated Red Blood Cells Absolute Auto 0.000 K/mm3 (0.0-0.012); Nucleated Red Blood Cells Perc 0.0 % (0.0-0.2); Platelet Count Result 283 k/mm3 (150-375); Red Blood Count 3.35 M/mm3 (4.2-5.4); White Blood Count 10.4 K/mm3 (4.5-10.0)
[2025-08-07 05:25] LABS: Alanine Aminotransferase 16 U/L (6-35); Albumin Level 4.3 g/dL (3.5-5.1); Alkaline Phosphatase 142 U/L (38-126); Anion Gap 22 mmol/L (4-12); Aspartate Amino Transferase 33 U/L (14-36); Bilirubin,Total 0.9 mg/dL (0.2-1.3); Blood Urea Nitrogen 64 mg/dL (7-17); Calcium 10.5 mg/dL (8.4-10.2); Carbon Dioxide 21 mmol/L (22-30); Chloride 95 mmol/L (98-107); Estimated CRCL calculation 9 ml/min; Estimated Glomerular Filt Rate 7; Glucose 215 mg/dL (65-110); Magnesium 2.2 mg/dL (1.6-2.3); Potassium 4.0 mmol/L (3.4-5.0); Sodium 138 mmol/L (137-145); Total Protein 7.7 g/dL (6.3-8.2)
[2025-08-07 05:38] LABS: Anisocytosis 1+; Schistocytes None Seen
[2025-08-07] MEDS: MIDODRINE HCL 10 MG TABLET PO ×3 (05:44→21:52)
[2025-08-07 05:48] LABS: Poikilocytosis Occasional
[2025-08-07] MEDS: INSULIN GLARGINE (*BKC) 100 UNITS/ML 10 UNITS SUB-Q (08:13)
[2025-08-07] MEDS: INSULIN ASPART (*BKC) 100 UNITS/ML SUB-Q ×2 (08:13→21:52)
--- NOTE | 2025-08-07 08:15 | PC.NURSE ---
Patient off floor to dialysis via bed. Report given to can filling machine operator. No patient complaints at this time.
[2025-08-07] MEDS: ALBUMIN HUMAN 25% 25 GM/100 ML 100 ML IVPB (08:43)
--- NOTE | 2025-08-07 08:53 | WPDNEUROPN ---
Subjective Date/time seen: 08/07/25 08:53 Interval history: Of the floor for dialysis. Objective Data Vital Signs Vital Signs: Vital Signs - 24 hr 08/06/25 09:01 08/06/25 10:00 08/06/25 12:00 Temperature 36.5 C Pulse Rate 97 85 94 Respiratory Rate 18 Blood Pressure 91/52 L Pulse Oximetry 100 Oxygen Delivery Oxygen Flow Rate Fraction of Inspired Oxygen 08/06/25 16:00 08/06/25 16:00 08/06/25 20:00 Temperature 36.8 C 36.4 C Pulse Rate 103 H 96 100 Respiratory Rate 18 18 Blood Pressure 103/50 L 121/66 Pulse Oximetry 100 99 Oxygen Delivery Oxygen Flow Rate Fraction of Inspired Oxygen 08/06/25 20:00 08/06/25 20:00 08/06/25 21:57 Temperature Pulse Rate 102 H 100 100 Respiratory Rate 18 Blood Pressure Pulse Oximetry 100 Oxygen Delivery Nasal Cannula Oxygen Flow Rate 2 Fraction of Inspired Oxygen 28 08/07/25 00:00 08/07/25 00:00 08/07/25 04:00 Temperature 36.9 C Pulse Rate 102 H 107 H 109 H Respiratory Rate 18 Blood Pressure 117/63 Pulse Oximetry 100 Oxygen Delivery Oxygen Flow Rate Fraction of Inspired Oxygen 08/07/25 04:00 Temperature 37.0 C Pulse Rate 97 Respiratory Rate 16 Blood Pressure 94/48 L Pulse Oximetry 96 Oxygen Delivery Oxygen Flow Rate Fraction of Inspired Oxygen Intake/Output Intake/Output: Intake & Output 08/04/25 08/05/25 08/06/25 08/07/25 23:59 23:59 23:59 23:59 Intake Total 665 780 630 0 Output Total 0 2240 Balance 665 -1460 630 0 Meds/Results Medications: Active Medications Generic Name Dose Route Start Last Admin Trade Name Freq PRN Reason Stop Dose Admin Acetaminophen 650 mg 07/29/25 15:59 08/06/25 16:59 Acetaminophen 325 Mg Tablet PO 650 mg Q4H PRN Administration Mild Pain (1-3) or Fever Acetaminophen 650 mg 07/29/25 17:04 Acetaminophen 650 Mg Suppository RECTAL Q6H PRN Mild Pain (1-3) or Fever Albuterol/Ipratropium 3 ml 07/29/25 19:52 Ipratropium 0.5 Mg/Albuterol Sulfate 2.5 Mg (Base) Ampul.Neb 3 Ml INHALATION Q4HRT PRN Shortness of Breath. Apixaban 5 mg 07/30/25 09:00 08/07/25 08:23 Apixaban 5 Mg Tablet PO Not Given BID BIANKA Aripiprazole 1 mg 07/31/25 21:00 08/06/25 21:57 Aripiprazole 1 Mg Tablet PO 1 mg HS BIANKA Administration Aripiprazole 2 mg 07/31/25 21:00 08/06/25 21:57 Aripiprazole 2 Mg Tablet BY MOUTH 2 mg HS BIANKA Administration Buspirone HCl 5 mg 07/31/25 17:00 08/07/25 08:23 Buspirone Hcl 5 Mg Tablet BY MOUTH Not Given TID BIANKA Dextrose 12.5 gm 07/29/25 19:52 Dextrose 50% 25 Gm/50 Ml Syringe IV PUSH PRN PRN Hypoglycemia Protocol Docusate Sodium 200 mg 07/31/25 17:00 08/07/25 08:23 Docusate Sodium 100 Mg Capsule PO Not Given BID BIANKA Epoetin Austin-epbx 10,000 units 08/07/25 14:00 Epoetin [place]-Epbx 10,000 Units/Ml Vial IV PUSH 08/07/25 14:01 ONCE ONE Glucagon 1 mg 07/29/25 19:52 Glucagon For Inj 1 Mg Vial IM PRN PRN Hypoglycemia Protocol Glucose 15 gm 07/29/25 19:52 Glucose Oral Gel 15 Gm Of Glucse In 37.5 Gm Tube PO PRN PRN Hypoglycemia Protocol Dextrose 1,000 mls @ 100 mls/hr 07/29/25 19:52 Dextrose 5% 1,000 Ml IVPB PRN PRN Hypoglycemia Protocol Albumin Human 50 mls @ 999 mls/hr 07/30/25 05:49 08/05/25 09:13 Albutein IVPB 08/29/25 05:48 999 mls/hr Q10M PRN Administration HYPOTENSION Albumin Human 100 mls @ 60 mls/hr 08/07/25 07:45 Albutein IVPB 08/07/25 09:24 ONCE ONE Insulin Aspart 4 - 8 units 07/31/25 08:00 08/07/25 08:13 Insulin Aspart (*Bkc) 100 Units/Ml SUB-Q 5 units TIDWM BIANKA Administration Protocol Insulin Aspart 2 - 4 units 07/30/25 21:00 08/06/25 22:05 Insulin Aspart (*Bkc) 100 Units/Ml SUB-Q 2 units HS BIANKA Administration Protocol Insulin Glargine 10 units 08/02/25 09:00 08/07/25 08:13 Insulin Glargine (*Bkc) 100 Units/Ml SUB-Q 10 units DAILY BIANKA Administration Insulin Glargine 20 units 08/04/25 09:00 Insulin Glargine (*Bkc) 100 Units/Ml SUB-Q On Hold: 08/04/25 09:00 QAM BIANKA Memantine 5 mg 08/02/25 09:00 08/07/25 08:23 Memantine 5 Mg Tablet PO 08/09/25 08:59 Not Given QAM [facility] Memantine 5 mg 08/09/25 09:00 Memantine 5 Mg Tablet PO Q12HR BIANKA Methylphenidate HCl 10 mg 08/01/25 08:00 08/07/25 08:22 Methylphenidate Hcl (*Crx) 10 Mg Tablet PO Not Given 0800,1200 [facility] Metoprolol Tartrate 25 mg 08/03/25 21:00 08/06/25 21:57 Metoprolol Tartrate 25 Mg Tablet PO 25 mg Q12HR BIANKA Administration Midodrine 10 mg 08/04/25 06:00 08/07/25 05:44 Midodrine Hcl 10 Mg Tablet PO 10 mg Q8HR BIANKA Administration Naloxone HCl 0.1 mg 07/29/25 20:26 Naloxone Hcl 0.4 Mg/Ml Vial IV PUSH Q5MIN PRN Sedation Non-Formulary Medication 30 mg 08/01/25 18:00 08/06/25 16:48 Tenapanor [Xphozah] PO 08/31/25 17:59 30 mg QPM BIANKA Administration Ondansetron HCl 4 mg 07/29/25 15:59 08/03/25 16:40 Ondansetron Inj 4 Mg/2 Ml Vial IV PUSH 4 mg Q4H PRN Administration Nausea Pantoprazole Sodium 40 mg 07/30/25 09:00 08/07/25 08:23 Pantoprazole Sodium Iv 40 Mg Vial IV PUSH Not Given QAM BIANKA Rosuvastatin Calcium 10 mg 08/01/25 09:00 08/07/25 08:23 Rosuvastatin 10 Mg Tablet PO Not Given DAILY [facility] Sertraline HCl 50 mg 08/01/25 09:00 08/07/25 08:23 Sertraline Hcl 50 Mg Tablet PO Not Given DAILY BIANKA Sodium Chloride 20 ml 07/29/25 15:58 Central Line Flush IV PUSH PRN PRN after blood draws Radiology Results: ITS Impressions Head CT 07/29/25 17:35 Impression: 1.No acute intracranial abnormality. Chest/Abdomen/Pelvis CT 07/29/25 18:21 IMPRESSION: CHEST- 1. Mild interstitial pulmonary edema with small left pleural effusions and bibasilar atelectasis. 2. No other acute abnormality. ABDOMEN/PELVIS- 1. No acute abnormality. 2. Additional findings as above. Chest X-Ray 08/05/25 08:35 IMPRESSION: 1. Persistent right perihilar and bibasilar opacities which represent atelectasis or pneumonia. 2. Cardiomegaly with enlargement of the central pulmonary arteries consistent with pulmonary arterial hypertension. Labs Labs: Laboratory Results - last 24 hr 08/06/25 08/06/25 08/06/25 11:44 16:26 20:28 WBC RBC Hgb Hct MCV MCH MCHC RDW Plt Count MPV Immature Gran % (Auto) Neut % (Auto) Lymph % (Auto) [place] % (Auto) Eos % (Auto) Baso % (Auto) Lymph # (Auto) [place] # (Auto) Eos # (Auto) Baso # (Auto) Abs Immat Gran (auto) Absolute Neuts (auto) Absolute Nucleated RBC Band Neutrophils % Nucleated RBC % Platelet Estimate Poikilocytosis Anisocytosis Schistocytes Sodium Potassium Chloride Carbon Dioxide Anion Gap BUN Creatinine Estim Creat Clear Calc Estimated GFR Glucose POC Capillary Glucose 237 H 172 H 223 H Calcium Magnesium Total Bilirubin AST ALT Alkaline Phosphatase Total Protein Albumin 08/07/25 08/07/25 04:26 07:49 WBC 10.4 H RBC 3.35 L Hgb 9.7 L Hct 33.0 L MCV 98.5 MCH 29.0 MCHC 29.4 L RDW 17.4 H Plt Count 283 MPV 10.3 Immature Gran % (Auto) 0.8 H Neut % (Auto) 77.6 H Lymph % (Auto) 10.1 L [place] % (Auto) 8.5 Eos % (Auto) 2.7 Baso % (Auto) 0.3 Lymph # (Auto) 1.05 [place] # (Auto) 0.9 H Eos # (Auto) 0.3 Baso # (Auto) 0.0 Abs Immat Gran (auto) 0.08 H Absolute Neuts (auto) 8.1 H Absolute Nucleated RBC 0.000 Band Neutrophils % Not Reportable Nucleated RBC % 0.0 Platelet Estimate Adequate Poikilocytosis Occasional Anisocytosis 1+ Schistocytes None seen Sodium 138 Potassium 4.0 Chloride 95 L Carbon Dioxide 21 L Anion Gap 22 H BUN 64 H Creatinine 5.51 H Estim Creat Clear Calc 9 Estimated GFR 7 L Glucose 215 H POC Capillary Glucose 256 H Calcium 10.5 H Magnesium 2.2 Total Bilirubin 0.9 AST 33 ALT 16 Alkaline Phosphatase 142 H Total Protein 7.7 Albumin 4.3
--- NOTE | 2025-08-07 09:04 | P.PNIM_ITS ---
Progress Note: A&P Assessment and Plan (1) Acute metabolic encephalopathy: Code(s): G93.41 - Metabolic encephalopathy Status: Acute Assessment and Plan: Patient presented with altered mental status/encephalopathy which could be related to uremia, infection along with hypotension -discussed with mercury purifier, who stated that patient is almost 8 L positive since at dry weight -unsure if patient has been dialyzed adequately at [facility] as well as [facility] dialysis [facility] due to low blood pressures. She was also started on midodrine at [facility] which will restart here -post dialysis patient more awake -continue to monitor electrolytes and treat underlying cause -CT brain which did not show any acute intracranial abnormality -07/31: Encephalopathy gradually improving this patient is more awake this morning, most likely related to uremia S since she had dialysis yesterday, she seems to be improving, will continue dialysis again today -08/01: Appreciate Neurology evaluation and recommendations, will add Namenda and EEG per Neurology recommendation -EEG was abnormal but neurology never saw the patient again after their first consultation. -----EEG results: 1. Mild diffuse background slowing and frontal intermittent rhythmic delta activity suggestive generalized encephalopathy or bihemispheric lesion.2. Focal slowing and sharp wave activity noted over the left temporal area. Focal slowing may raise possibility of underlying structural lesion. Sharp transients are considered nonspecific focal abnormality. However such abnormalities may be seen many elderly subjects and hence clinical and if necessary radiographic correlation may be helpful. 08/07: -A&Ox 1, seems to possibly be oriented but not answering my questions. Will try again tomorrow since pt will be staying overnight. -Pending neuro consultation post EEG -Continue Namenda (2) ESRD (end stage renal disease): Code(s): N18.6 - End stage renal disease Status: Chronic Assessment and Plan: End-stage renal disease on dialysis, Tuesday, Tuesday, Tuesday -after discussion with Nephrology, seems like patient has not been optimally dialyzed at [facility] and at outpatient dialysis center due to hypotension. Patient was 8-10 L positive from her dry weight -07/30: Dialyzed with 2500 mL in fluid removal, she did require Levophed and albumin during dialysis. -07/31: Dialyzed with 4000 mL in fluid removal -08/01: Dialyzed with 4000 mL in fluid removed -patient on midodrine t.i.d. -dialysis per Nephrology 08/02-dialyzed with 4000 mL and fluid removal 08/03-dialyzed with 3000 food review Per nephro, she will resume dialysis MWF -08/05 Pt recieved dialysis 08/07: Received dialysis -Neph following, plan for continued HD, labs, volume status, and clearance (3) Hypotension: Code(s): I95.9 - Hypotension, unspecified Status: Acute Assessment and Plan: Multifactorial, infection, 07/30: CT scan of the chest abdomen follows showed interstitial edema with small left pleural effusion. Abdomen and pelvis did not show any acute abnormality -records have been requested from [facility] -february after repeat an echocardiogram if it was not done at [facility] -continue Zosyn and vancomycin (07/29) will continue for a total of 7 days, di scontinued on 08/05 -07/29: Preliminary blood cultures negative x2 -08/04-Hr 100. Resume home metoprolol 08/04/2025: Echocardiogram Summary ATRIAL FIBRILLATION WITH RAPID VENTRICULAR RESPONSE INCOMPLETE LEFT BUNDLE BRANCH BLOCK LEFT VENTRICULAR HYPERTROPHY WITH ST-T CHANGE MINIMAL Q WAVES- HIGH LATERAL LEADS BASELINE ARTIFACT- II, III, V1-V3 ABNORMAL ECG Compared to ECG 07/29/2025 12:56:03 HEART RATE HAS INCREASED 08/07: -BPs have been soft, but stable here. -Remains on midodrine therapy (4) CHF (congestive heart failure): Qualifiers: Heart failure chronicity: acute on chronic Heart failure type: unspecified Qualified Code(s): I50.9 - Heart failure, unspecified Code(s): I50.9 - Heart failure, unspecified Status: Acute Assessment and Plan: Pulmonary edema on chest x-ray, could be related to CHF likely 2/2 Fluid overloaded 2/2 inadequate dialysis Dialysis per Nephrology 07/23/2025: Echocardiogram from [facility] * left ventricle is normal in size with estimated EF of 50 - 55% * right ventricular systolic function is at the lower limit of normal * moderate to severe aortic stenosis * no evidence of aortic valve regurgitation * mild to moderate mitral and pulmonic regurgitation * no evidence of mitral stenosis * moderate tricuspid regurgitation * moderate pulmonary hypertension * mildly dilated ascending aorta 08/07: -BLE edema persistent, pt does not answer if she has SOB or CP. Will continue to assess. Continue HD and neph f/u recs (5) DM type 2 (diabetes mellitus, type 2): Onset Date: ~2018 Qualifiers: Diabetes mellitus complication status: without complication Diabetes mellitus jail insulin use: without long term care pharmacist use Qualified Code(s): E11.9 - Type 2 diabetes mellitus without complications Code(s): E11.9 - Type 2 diabetes mellitus without complications Status: Chronic Assessment and Plan: Continue Accu-Cheks and sliding scale insulin 08/07: -Per med rec, pt has only been getting 10units lantus in the AMs total. Reviewed with nursing and this was confirmed. Since AM blood sugars have been elevated, will increase pt lantus from 10 units daily to 15 units. -Continue to trend sugars via CMP and POC testing (6) Atrial fibrillation: Qualifiers: Atrial fibrillation type: permanent Qualified Code(s): I48.21 - Permanent atrial fibrillation Code(s): I48.91 - Unspecified atrial fibrillation Status: Acute Assessment and Plan: History of atrial fibrillation, continue Eliquis and metoprolol Continue on telemetry monitoring Plan DVT prophylaxis: Eliquis Stress ulcer prophylaxis: no indication Nutrition: diabetic diet Code Status: Full code Time Spent With Patient Time: 10 Subjective Date/time seen: 08/07/25 1355 Interval history: Pt initially at dialysis upon my arrival. Pt now in room and resting comortablly in bed. Pt not answering any of my questions other than granting me permission to perform a physical assessment. Pt appears in no acute distress, watching TV, and drinking a diet soda. Review of Systems Review of Systems: All systems reviewed & are unremarkable except as noted in HPI and below ROS unobtainable: Yes unobtainable due to mental status (Limited, A&O x1) Exam Narrative: GENERAL: Comfortable, no acute distress HENMT: moist mucous membranes RESPIRATORY: clear to auscultation, no increased respiratory effort CARDIO: Irregularly irregular rhythm mildly tachycardic GI: soft, nontender, bowel sounds present SKIN/EXTREMITIES: no rashes, no edema, no redness or tenderness NEURO: Awake and alert conversant oriented to self not to time and place Const: General: comfortable and no acute distress Other: , female, elderly, ill-appearing, obese body habitus HENMT: Face/Nose/Sinus: Normal nares present Mouth: Yes moist mucous membranes Eyes: General: appearance normal, both eyes and all related structures Sclera: sclerae normal Pupils: Equal, round and reactive pupils present EOM: EOMs intact bilaterally Resp: Effort & Inspection: normal respiratory effort Auscultation: clear to auscultation bilaterally Other: Nasal cannula in place place and tolerating well. Cardio: Rate: tachycardic Rhythm: abnormal rhythm (Consistent with AFib) Other: + murmur GI: Other: Abdomen soft, nondistended, nontender. Normoactive bowel sounds in all quadrants. Skin: General skin exam: normal color and no rashes or lesions noted Wounds: no wounds Neuro: Cranial nerves: Yes Equal, round and reactive pupils present Other: A&O to self, all that she would answer for me. Moving all extremities. PERRLA. Unable to follow commands, appears to be due to uncooperation. Extrem: Other: 3+ pitting edema to bilateral lower extr emities, lower extremities very firm bilaterally extending from the feet to the upper thighs. Very tender to palpation making exam difficult. DP pulses 2+ bilaterally. Psych: Other: OPAL, pt uncooperative with answering questions Objective Data Vital Signs Vital Signs: Vital Signs - 24 hr 08/06/25 10:00 08/06/25 12:00 08/06/25 16:00 Temperature 97.7 F Pulse Rate 85 94 103 H Respiratory Rate 18 Blood Pressure 91/52 L Pulse Oximetry 100 Oxygen Delivery Oxygen Flow Rate Fraction of Inspired Oxygen 08/06/25 16:00 08/06/25 20:00 08/06/25 20:00 Temperature 98.2 F 97.6 F Pulse Rate 96 100 102 H Respiratory Rate 18 18 18 Blood Pressure 103/50 L 121/66 Pulse Oximetry 100 99 100 Oxygen Delivery Nasal Cannula Oxygen Flow Rate 2 Fraction of Inspired Oxygen 28 08/06/25 20:00 08/06/25 21:57 08/07/25 00:00 Temperature 98.5 F Pulse Rate 100 100 102 H Respiratory Rate 18 Blood Pressure 117/63 Pulse Oximetry 100 Oxygen Delivery Oxygen Flow Rate Fraction of Inspired Oxygen 08/07/25 00:00 08/07/25 04:00 08/07/25 04:00 Temperature 98.6 F Pulse Rate 107 H 109 H 97 Respiratory Rate 16 Blood Pressure 94/48 L Pulse Oximetry 96 Oxygen Delivery Oxygen Flow Rate Fraction of Inspired Oxygen Intake/Output Intake/Output: Intake & Output 08/04/25 08/05/25 08/06/25 08/07/25 23:59 23:59 23:59 23:59 Intake Total 665 780 630 0 Output Total 0 2240 Balance 665 -1460 630 0 Meds/Results Medications: Active Medications Generic Name Dose Route Start Last Admin Trade Name Freq PRN Reason Stop Dose Admin Acetaminophen 650 mg 07/29/25 15:59 08/06/25 16:59 Acetaminophen 325 Mg Tablet PO 650 mg Q4H PRN Administration Mild Pain (1-3) or Fever Acetaminophen 650 mg 07/29/25 17:04 Acetaminophen 650 Mg Suppository RECTAL Q6H PRN Mild Pain (1-3) or Fever Albuterol/Ipratropium 3 ml 07/29/25 19:52 Ipratropium 0.5 Mg/Albuterol Sulfate 2.5 Mg (Base) Ampul.Neb 3 Ml INHALATION Q4HRT PRN Shortness of Breath. Apixaban 5 mg 07/30/25 09:00 08/07/25 08:23 Apixaban 5 Mg Tablet PO Not Given BID BIANKA Aripiprazole 1 mg 07/31/25 21:00 08/06/25 21:57 Aripiprazole 1 Mg Tablet PO 1 mg HS BIANKA Administration Aripiprazole 2 mg 07/31/25 21:00 08/06/25 21:57 Aripiprazole 2 Mg Tablet BY MOUTH 2 mg HS BIANKA Administration Buspirone HCl 5 mg 07/31/25 17:00 08/07/25 08:23 Buspirone Hcl 5 Mg Tablet BY MOUTH Not Given TID BIANKA Dextrose 12.5 gm 07/29/25 19:52 Dextrose 50% 25 Gm/50 Ml Syringe IV PUSH PRN PRN Hypoglycemia Protocol Docusate Sodium 200 mg 07/31/25 17:00 08/07/25 08:23 Docusate Sodium 100 Mg Capsule PO Not Given BID BIANKA Epoetin Austin-epbx 10,000 units 08/07/25 14:00 Epoetin [place]-Epbx 10,000 Units/Ml Vial IV PUSH 08/07/25 14:01 ONCE ONE Glucagon 1 mg 07/29/25 19:52 Glucagon For Inj 1 Mg Vial IM PRN PRN Hypoglycemia Protocol Glucose 15 gm 07/29/25 19:52 Glucose Oral Gel 15 Gm Of Glucse In 37.5 Gm Tube PO PRN PRN Hypoglycemia Protocol Dextrose 1,000 mls @ 100 mls/hr 07/29/25 19:52 Dextrose 5% 1,000 Ml IVPB PRN PRN Hypoglycemia Protocol Albumin Human 50 mls @ 999 mls/hr 07/30/25 05:49 08/05/25 09:13 Albutein IVPB 08/29/25 05:48 999 mls/hr Q10M PRN Administration HYPOTENSION Albumin Human 100 mls @ 60 mls/hr 08/07/25 07:45 08/07/25 08:43 Albutein IVPB 08/07/25 09:24 60 mls/hr ONCE ONE Administration Insulin Aspart 4 - 8 units 07/31/25 08:00 08/07/25 08:13 Insulin Aspart (*Bkc) 100 Units/Ml SUB-Q 5 units TIDWM BIANKA Administration Protocol Insulin Aspart 2 - 4 units 07/30/25 21:00 08/06/25 22:05 Insulin Aspart (*Bkc) 100 Units/Ml SUB-Q 2 units HS BIANKA Administration Protocol Insulin Glargine 10 units 08/02/25 09:00 08/07/25 08:13 Insulin Glargine (*Bkc) 100 Units/Ml SUB-Q 10 units DAILY BIANKA Administration Insulin Glargine 20 units 08/04/25 09:00 Insulin Glargine (*Bkc) 100 Units/Ml SUB-Q On Hold: 08/04/25 09:00 QAM BIANKA Memantine 5 mg 08/02/25 09:00 08/07/25 08:23 Memantine 5 Mg Tablet PO 08/09/25 08:59 Not Given QAM BIANKA Memantine 5 mg 08/09/25 09:00 Memantine 5 Mg Tablet PO Q12HR BIANKA Methylphenidate HCl 10 mg 08/01/25 08:00 08/07/25 08:22 Methylphenidate Hcl (*Crx) 10 Mg Tablet PO Not Given 0800,1200 BIANKA Metoprolol Tartrate 25 mg 08/03/25 21:00 08/06/25 21:57 Metoprolol Tartrate 25 Mg Tablet PO 25 mg Q12HR BIANKA Administration Midodrine 10 mg 08/04/25 06:00 08/07/25 05:44 Midodrine Hcl 10 Mg Tablet PO 10 mg Q8HR BIANKA Administration Naloxone HCl 0.1 mg 07/29/25 20:26 Naloxone Hcl 0.4 Mg/Ml Vial IV PUSH Q5MIN PRN Sedation Non-Formulary Medication 30 mg 08/01/25 18:00 08/06/25 16:48 Tenapanor [Xphozah] PO 08/31/25 17:59 30 mg QPM BIANKA Administration Ondansetron HCl 4 mg 07/29/25 15:59 08/03/25 16:40 Ondansetron Inj 4 Mg/2 Ml Vial IV PUSH 4 mg Q4H PRN Administration Nausea Pantoprazole Sodium 40 mg 07/30/25 09:00 08/07/25 08:23 Pantoprazole Sodium Iv 40 Mg Vial IV PUSH Not Given QAM BIANKA Rosuvastatin Calcium 10 mg 08/01/25 09:00 08/07/25 08:23 Rosuvastatin 10 Mg Tablet PO Not Given DAILY BIANKA Sertraline HCl 50 mg 08/01/25 09:00 08/07/25 08:23 Sertraline Hcl 50 Mg Tablet PO Not Given DAILY BIANKA Sodium Chloride 20 ml 07/29/25 15:58 Central Line Flush IV PUSH PRN PRN after blood draws Radiology Results: ITS Impressions Head CT 07/29/25 17:35 Impression: 1.No acute intracranial abnormality. Chest/Abdomen/Pelvis CT 07/29/25 18:21 IMPRESSION: CHEST- 1. Mild interstitial pulmonary edema with small left pleural effusions and bibasilar atelectasis. 2. No other acute abnormality. ABDOMEN/PELVIS- 1. No acute abnormality. 2. Additional findings as above. Chest X-Ray 08/05/25 08:35 IMPRESSION: 1. Persistent right perihilar and bibasilar opacities which represent atelectasis or pneumonia. 2. Cardiomegaly with enlargement of the central pulmonary arteries consistent with pulmonary arterial hypertension. Labs Labs: Laboratory Results - last 24 hr 08/06/25 08/06/25 08/06/25 11:44 16:26 20:28 WBC RBC Hgb Hct MCV MCH MCHC RDW Plt Count MPV Immature Gran % (Auto) Neut % (Auto) Lymph % (Auto) [place] % (Auto) Eos % (Auto) Baso % (Auto) Lymph # (Auto) [place] # (Auto) Eos # (Auto) Baso # (Auto) Abs Immat Gran (auto) Absolute Neuts (auto) Absolute Nucleated RBC Band Neutrophils % Nucleated RBC % Platelet Estimate Poikilocytosis Anisocytosis Schistocytes Sodium Potassium Chloride Carbon Dioxide Anion Gap BUN Creatinine Estim Creat Clear Calc Estimated GFR Glucose POC Capillary Glucose 237 H 172 H 223 H Calcium Magnesium Total Bilirubin AST ALT Alkaline Phosphatase Total Protein Albumin 08/07/25 08/07/25 04:26 07:49 WBC 10.4 H RBC 3.35 L Hgb 9.7 L Hct 33.0 L MCV 98.5 MCH 29.0 MCHC 29.4 L RDW 17.4 H Plt Count 283 MPV 10.3 Immature Gran % (Auto) 0.8 H Neut % (Auto) 77.6 H Lymph % (Auto) 10.1 L [place] % (Auto) 8.5 Eos % (Auto) 2.7 Baso % (Auto) 0.3 Lymph # (Auto) 1.05 [place] # (Auto) 0.9 H Eos # (Auto) 0.3 Baso # (Auto) 0.0 Abs Immat Gran (auto) 0.08 H Absolute Neuts (auto) 8.1 H Absolute Nucleated RBC 0.000 Band Neutrophils % Not Reportable Nucleated RBC % 0.0 Platelet Estimate Adequate Poikilocytosis Occasional Anisocytosis 1+ Schistocytes None seen Sodium 138 Potassium 4.0 Chloride 95 L Carbon Dioxide 21 L Anion Gap 22 H BUN 64 H Creatinine 5.51 H Estim Creat Clear Calc 9 Estimated GFR 7 L Glucose 215 H POC Capillary Glucose 256 H Calcium 10.5 H Magnesium 2.2 Total Bilirubin 0.9 AST 33 ALT 16 Alkaline Phosphatase 142 H Total Protein 7.7 Albumin 4.3 Quality VTE Prophylaxis VTE prophylaxis: pharmacologic ordered
[2025-08-07] MEDS: EPOETIN ALFA-EPBX 10,000 UNITS/ML VIAL 10000 UNITS IV PUSH (10:28)
--- NOTE | 2025-08-07 12:15 | P.PNNP_ITS ---
Progress Note: A&P Assessment and Plan (1) ESRD (end stage renal disease): Code(s): N18.6 - End stage renal disease Status: Chronic Assessment and Plan: * HD today * resume Tue/Tue/Tuesday dialysis schedule this week * follow electrolytes, volume status, and clearance (2) Hypotension: Code(s): I95.9 - Hypotension, unspecified Status: Acute Assessment and Plan: * acute on chronic * recent and previous echocardiograms noted * baseline systolic BP runs in the 90s for the last month * recently started on midodrine therapy from recent [facility] admission * remains on midodrine therapy (3) AMS (altered mental status): Qualifiers: Altered mental status type: transient alteration of awareness Qualified Code(s): R40.4 - Transient alteration of awareness Code(s): R41.82 - Altered mental status, unspecified Status: Acute Assessment and Plan: * improvement noted * despite underlying dementia, usually alert and oriented x 3 (although not consistently) * head CT negative * due to hypotension versus infection (i.e. pneumonia?) * Neurology following * EEG results noted * continue supportive therapy (4) Acute hypoxic respiratory failure: Code(s): J96.01 - Acute respiratory failure with hypoxia Status: Acute Assessment and Plan: * slowly improving * as noted since admission * presumably due to volume overload (CHF + pulmonary edema) and recent pneumonia * admission imaging noted * fluid removal challenging in the context of hypotension (presumably a problem during recent hospitalization at [facility] as well) * ongoing fluid removal with HD/DUF * recent CXR noted * wean supplemental oxygen as tolerated (5) Urinary tract infection: Qualifiers: Hematuria presence: without hematuria Urinary tract infection type: a cute cystitis Qualified Code(s): N30.00 - Acute cystitis without hematuria Code(s): N39.0 - Urinary tract infection, site not specified Status: Acute Assessment and Plan: * admission UA suggestive * follow culture data -- however, no urine culture done * completed course of antibiotics (6) Volume overload: Code(s): E87.70 - Fluid overload, unspecified Status: Acute Assessment and Plan: * as suggested by evidence to date: * imaging with CHF findings and pulmonary edema * ~ 8kg above dry weight per outpatient dialysis clinic when seen on 07/29 * aggressive fluid removal with HD and DUF as tolerated by hemodynamics * Echo from admission to [facility] noted (07/23/25): * left ventricle is normal in size with estimated EF of 50 - 55% * right ventricular systolic function is at the lower limit of normal * moderate to severe aortic stenosis * no evidence of aortic valve regurgitation * mild to moderate mitral and pulmonic regurgitation * no evidence of mitral stenosis * moderate tricuspid regurgitation * moderate pulmonary hypertension * mildly dilated ascending aorta * almost 12L negative since admission * likely 14L negative by end of HD treatment today * follow respiratory status and clinical exam (7) Anemia: Qualifiers: Anemia type: due to chronic kidney disease Chronic kidney disease stage: on chronic dialysis Qualified Code(s): N18.6 - End stage renal disease; D63.1 - Anemia in chronic kidney disease; Z99.2 - Dependence on renal dialysis Code(s): D64.9 - Anemia, unspecified Status: Chronic Assessment and Plan: * due to ESRD and acute illness * anemia studies noted: * evidence of mild iron deficiency * follow trend of H/H * Epogen with HD (8) DM type 2 (diabetes mellitus, type 2): Onset Date: ~2018 Qualifiers: Diabetes mellitus complication status: without complication 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 L Subjective Date/time seen: 08/07/25 12:15 Interval history: Following for end stage renal disease on hemodialysis. Tolerating dialysis treatment at the time of my visit (seen on HD at 12:05pm); no apparent distress noted; mentation continues to fluctuate but appears calm and relaxed when seen; no other issues/events overnight or earlier this morning. Exam 2 Narrative: General: elderly but WD/WN female in NAD Heart: IRRR, normal S1 and S2; no rub Lungs: coarse breath sounds; decreased at bases Abdomen: obese but soft, nontender, nondistended, positive bowel sounds Extremities: no cyanosis or clubbing; trace edema (UEs and LEs) Skin: warm and dry Objective Data Vital Signs Vital Signs: Vital Signs Temp Pulse Resp BP Pulse Ox O2 Del Method O2 Flow Rate 08/07/25 12:00 75 100/70 08/07/25 11:45 71 102/47 L 08/07/25 11:30 100 127/59 L 08/07/25 11:15 80 99/34 L 08/07/25 11:00 73 80/43 L 08/07/25 10:45 84 113/54 L 08/07/25 10:30 92 95/50 L 08/07/25 10:15 72 98/47 L 08/07/25 10:00 114 H 120/83 08/07/25 09:45 73 96/60 L 08/07/25 09:30 101 H 115/51 L 08/07/25 09:15 116 H 97/72 L 08/07/25 09:00 90 89/59 L 08/07/25 08:45 99 110/54 L 08/07/25 08:38 104 H 133/61 08/07/25 08:38 2 08/07/25 08:24 98.6 F 103 H 16 101/62 99 08/07/25 08:00 99 Nasal Cannula 2 08/07/25 08:00 101 H 08/07/25 04:00 98.6 F 97 16 94/48 L 96 08/07/25 04:00 109 H 08/07/25 00:00 107 H 08/07/25 00:00 98.5 F 102 H 18 117/63 100 08/06/25 21:57 100 08/06/25 20:00 100 08/06/25 20:00 102 H 18 100 Nasal Cannula 2 08/06/25 20:00 97.6 F 100 18 121/66 99 08/06/25 16:00 98.2 F 96 18 103/50 L 100 08/06/25 16:00 103 H Intake/Output Intake/Output: Intake & Output 08/04/25 08/05/25 08/06/25 08/07/25 23:59 23:59 23:59 23:59 Intake Total 665 780 630 0 Output Total 0 2240 2700 Balance 665 -8310 630 -2700 Meds/Results Medications: Active Medications Generic Name Dose Route Start Last Admin Trade Name Freq PRN Reason Stop Dose Admin Acetaminophen 650 mg 07/29/25 15:59 08/07/25 13:09 Acetaminophen 325 Mg Tablet PO 650 mg Q4H PRN Administration Mild Pain (1-3) or Fever Acetaminophen 650 mg 07/29/25 17:04 Acetaminophen 650 Mg Suppository RECTAL Q6H PRN Mild Pain (1-3) or Fever Albuterol/Ipratropium 3 ml 07/29/25 19:52 Ipratropium 0.5 Mg/Albuterol Sulfate 2.5 Mg (Base) Ampul.Neb 3 Ml INHALATION Q4HRT PRN Shortness of Breath. Apixaban 5 mg 07/30/25 09:00 08/07/25 08:23 Apixaban 5 Mg Tablet PO Not Given BID BIANKA Aripiprazole 1 mg 07/31/25 21:00 08/06/25 21:57 Aripiprazole 1 Mg Tablet PO 1 mg HS BIANKA Administration Aripiprazole 2 mg 07/31/25 21:00 08/06/25 21:57 Aripiprazole 2 Mg Tablet BY MOUTH 2 mg HS BIANKA Administration Buspirone HCl 5 mg 07/31/25 17:00 08/07/25 13:08 Buspirone Hcl 5 Mg Tablet BY MOUTH 5 mg TID BIANKA Administration Dextrose 12.5 gm 07/29/25 19:52 Dextrose 50% 25 Gm/50 Ml Syringe IV PUSH PRN PRN Hypoglycemia Protocol Docusate Sodium 200 mg 07/31/25 17:00 08/07/25 08:23 Docusate Sodium 100 Mg Capsule PO Not Given BID BIANKA Glucagon 1 mg 07/29/25 19:52 Glucagon For Inj 1 Mg Vial IM PRN PRN Hypoglycemia Protocol Glucose 15 gm 07/29/25 19:52 Glucose Oral Gel 15 Gm Of Glucse In 37.5 Gm Tube PO PRN PRN Hypoglycemia Protocol Dextrose 1,000 mls @ 100 mls/hr 07/29/25 19:52 Dextrose 5% 1,000 Ml IVPB PRN PRN Hypoglycemia Protocol Albumin Human 50 mls @ 999 mls/hr 07/30/25 05:49 08/05/25 09:13 Albutein IVPB 08/29/25 05:48 999 mls/hr Q10M PRN Administration HYPOTENSION Insulin Aspart 4 - 8 units 07/31/25 08:00 08/07/25 13:05 Insulin Aspart (*Bkc) 100 Units/Ml SUB-Q Not Given TIDWM BIANKA Protocol Insulin Aspart 2 - 4 units 07/30/25 21:00 08/06/25 22:05 Insulin Aspart (*Bkc) 100 Units/Ml SUB-Q 2 units HS BIANKA Administration Protocol Insulin Glargine 20 units 08/04/25 09:00 Insulin Glargine (*Bkc) 100 Units/Ml SUB-Q On Hold: 08/04/25 09:00 QAM BIANKA Insulin Glargine 15 units 08/08/25 09:00 Insulin Glargine (*Bkc) 100 Units/Ml 0.15 units/kg (15 units) SUB-Q HS BIANKA Memantine 5 mg 08/02/25 09:00 08/07/25 08:23 Memantine 5 Mg Tablet PO 08/09/25 08:59 Not Given QAM BIANKA Memantine 5 mg 08/09/25 09:00 Memantine 5 Mg Tablet PO Q12HR BIANKA Methylphenidate HCl 10 mg 08/01/25 08:00 08/07/25 13:09 Methylphenidate Hcl (*Crx) 10 Mg Tablet PO 10 mg 0800,1200 BIANKA Administration Metoprolol Tartrate 25 mg 08/03/25 21:00 08/07/25 13:08 Metoprolol Tartrate 25 Mg Tablet PO 25 mg Q12HR BIANKA Administration Midodrine 10 mg 08/04/25 06:00 08/07/25 13:08 Midodrine Hcl 10 Mg Tablet PO 10 mg Q8HR BIANKA Administration Naloxone HCl 0.1 mg 07/29/25 20:26 Naloxone Hcl 0.4 Mg/Ml Vial IV PUSH Q5MIN PRN Sedation Non-Formulary Medication 30 mg 08/01/25 18:00 08/06/25 16:48 Tenapanor [Xphozah] PO 08/31/25 17:59 30 mg QPM BIANKA Administration Ondansetron HCl 4 mg 07/29/25 15:59 08/03/25 16:40 Ondansetron Inj 4 Mg/2 Ml Vial IV PUSH 4 mg Q4H PRN Administration Nausea Pantoprazole Sodium 40 mg 07/30/25 09:00 08/07/25 08:23 Pantoprazole Sodium Iv 40 Mg Vial IV PUSH Not Given QAM BIANKA Rosuvastatin Calcium 10 mg 08/01/25 09:00 08/07/25 08:23 Rosuvastatin 10 Mg Tablet PO Not Given DAILY BIANKA Sertraline HCl 50 mg 08/01/25 09:00 08/07/25 08:23 Sertraline Hcl 50 Mg Tablet PO Not Given DAILY BIANKA Sodium Chloride 20 ml 07/29/25 15:58 Central Line Flush IV PUSH PRN PRN after blood draws Radiology Results: ITS Impressions Head CT 07/29/25 17:35 Impression: 1.No acute intracranial abnormality. Chest/Abdomen/Pelvis CT 07/29/25 18:21 IMPRESSION: CHEST- 1. Mild interstitial pulmonary edema with small left pleural effusions and bibasilar atelectasis. 2. No other acute abnormality. ABDOMEN/PELVIS- 1. No acute abnormality. 2. Additional findings as above. Chest X-Ray 08/05/25 08:35 IMPRESSION: 1. Persistent right perihilar and bibasilar opacities which represent atelectasis or pneumonia. 2. Cardiomegaly with enlargement of the central pulmonary arteries consistent with pulmonary arterial hypertension. Labs Labs: Laboratory Tests 08/07/25 04:26 08/07/25 04:26 Calcium 10.5 H Magnesium 2.2 Total Bilirubin 0.9 AST 33 ALT 16 Alkaline Phosphatase 142 H Total Protein 7.7 Albumin 4.3
--- NOTE | 2025-08-07 13:04 | PC.NURSE ---
Patient returned to floor via bed post hemodialysis. No patient complaints at this time.
[2025-08-07] MEDS: METOPROLOL TARTRATE 25 MG TABLET PO ×2 (13:08→21:51)
[2025-08-07] MEDS: ACETAMINOPHEN 325 MG TABLET 650 MG PO ×2 (13:09→22:22)
[2025-08-07] MEDS: methylPHENIDATE HCL (*CRX) 10 MG TABLET PO (13:09)
[2025-08-07] MEDS: APIXABAN 5 MG TABLET PO (17:39)
[2025-08-07] MEDS: [UNRECOGNIZED DRUG - OTHER] PO (17:40)
[2025-08-07] MEDS: DOCUSATE SODIUM 100 MG CAPSULE 200 MG PO (17:40)
[2025-08-07] MEDS: TENAPANOR 30 MG PO (17:40)
[2025-08-08] VITALS (11 sets, daily range): BP systolic 90–112; BP diastolic 49–74; PULSE 64–117; RESP 16–18; TEMP 36.2–36.6; O2SAT 89–96
[2025-08-08 04:17] LABS: Hematocrit 35.4 % (37.0-47.0); Hemoglobin 10.6 g/dL (12.0-15.0); Immature Granulocyte Percent A 0.5 % (0-0.5); Lymphocytes Absolute Auto 1.34 K/mm3 (0.9-3.2); Mean Corpuscular HGB Conc 29.9 g/dl (32-36); Mean Corpuscular Hemoglobin 29.2 pg (26-34); Mean Corpuscular Volume 97.5 fl (80-100); Nucleated Red Blood Cells Absolute Auto 0.020 K/mm3 (0.0-0.012); Nucleated Red Blood Cells Perc 0.2 % (0.0-0.2); Platelet Count Result 305 k/mm3 (150-375); Red Blood Count 3.63 M/mm3 (4.2-5.4); White Blood Count 11.6 K/mm3 (4.5-10.0)
[2025-08-08 04:42] LABS: Hypochromasia 1+; Ovalocytes Occasional; Schistocytes None Seen
[2025-08-08 05:01] LABS: Alanine Aminotransferase 23 U/L (6-35); Albumin Level 4.6 g/dL (3.5-5.1); Alkaline Phosphatase 157 U/L (38-126); Anion Gap 20 mmol/L (4-12); Aspartate Amino Transferase 37 U/L (14-36); Bilirubin,Total 1.0 mg/dL (0.2-1.3); Blood Urea Nitrogen 46 mg/dL (7-17); Calcium 11.7 mg/dL (8.4-10.2); Carbon Dioxide 24 mmol/L (22-30); Chloride 93 mmol/L (98-107); Estimated CRCL calculation 13 ml/min; Estimated Glomerular Filt Rate 12; Glucose 221 mg/dL (65-110); Magnesium 2.1 mg/dL (1.6-2.3); Potassium 4.1 mmol/L (3.4-5.0); Sodium 137 mmol/L (137-145); Total Protein 8.5 g/dL (6.3-8.2)
[2025-08-08] MEDS: MIDODRINE HCL 10 MG TABLET PO ×3 (05:50→20:33)
--- NOTE | 2025-08-08 07:37 | P.PNIM_ITS ---
Progress Note: A&P Assessment and Plan (1) Acute metabolic encephalopathy: Code(s): G93.41 - Metabolic encephalopathy Status: Acute Assessment and Plan: Patient presented with altered mental status/encephalopathy which could be related to uremia, infection along with hypotension -discussed with yard switch operator, who stated that patient is almost 8 L positive since at dry weight -unsure if patient has been dialyzed adequately at [facility] as well as [facility] dialysis [place] due to low blood pressures. She was also started on midodrine at [facility] which will restart here -post dialysis patient more awake -continue to monitor electrolytes and treat underlying cause -CT brain which did not show any acute intracranial abnormality -07/31: Encephalopathy gradually improving this patient is more awake this morning, most likely related to uremia S since she had dialysis yesterday, she seems to be improving, will continue dialysis again today -08/01: Appreciate Neurology evaluation and recommendations, will add Namenda and EEG per Neurology recommendation -EEG was abnormal but neurology never saw the patient again after their first consultation. -----EEG results: 1. Mild diffuse background slowing and frontal intermittent rhythmic delta activity suggestive generalized encephalopathy or bihemispheric lesion.2. Focal slowing and sharp wave activity noted over the left temporal area. Focal slowing may raise possibility of underlying structural lesion. Sharp transients are considered nonspecific focal abnormality. However such abnormalities may be seen many elderly subjects and hence clinical and if necessary radiographic correlation may be helpful. 08/07: -A&Ox 1, seems to possibly be oriented but not answering my questions. Will try again tomorrow since pt will be staying overnight. -Pending neuro consultation post EEG -Continue Namenda 08/08: -Spoke to Dr. Coleman today. He recommends neuro outpt f/u once discharged. Per nurse, per daughter, pt is at her baseline? And would rather f/u with her established neurology team. (2) ESRD (end stage renal disease): Code(s): N18.6 - End stage renal disease Status: Chronic Assessment and Plan: End-stage renal disease on dialysis, Tuesday, Tuesday, Tuesday -after discussion with Nephrology, seems like patient has not been optimally dialyzed at [facility] and at outpatient dialysis center due to hypotension. Patient was 8-10 L positive from her dry weight -07/30: Dialyzed with 2500 mL in fluid removal, she did require Levophed and albumin during dialysis. -07/31: Dialyzed with 4000 mL in fluid removal -08/01: Dialyzed with 4000 mL in fluid removed -patient on midodrine t.i.d. -dialysis per Nephrology 08/02-dialyzed with 4000 mL and fluid removal 08/03-dialyzed with 3000 food review Per nephro, she will resume dialysis MWF -08/05 Pt recieved dialysis 08/07: Received dialysis -Neph following, plan for continued HD, labs, volume status, and clearance 08/08: Plan for dialysis tomorrow. Neph to follow. Continue labs. (3) Hypotension: Code(s): I95.9 - Hypotension, unspecified Status: Acute Assessment and Plan: Multifactorial, infection, 07/30: CT scan of the chest abdomen follows showed interstitial edema with small left pleural effusion. Abdomen and pelvis did not show any acute abnormality -records have been requested from [facility] -february after repeat an echocardiogram if it was not done at [facility] -continue Zosyn and vancomycin (07/29) will continue for a total of 7 days, discontinued on 08/05 -07/29: Preliminary blood cultures negative x2 -08/04-Hr 100. Resume home metoprolol 08/04/2025: Echocardiogram Summary ATRIAL FIBRILLATION WITH RAPID VENTRICULAR RESPONSE INCOMPLETE LEFT BUNDLE BRANCH BLOCK LEFT VENTRICULAR HYPERTROPHY WITH ST-T CHANGE MINIMAL Q WAVES- HIGH LATERAL LEADS BASELINE ARTIFACT- II, III, V1-V3 ABNORMAL ECG Compared to ECG 07/29/2025 12:56:03 HEART RATE HAS INCREASED 08/07: -BPs have been soft, but stable here. -Remains on midodrine therapy (4) CHF (congestive heart failure): Qualifiers: Heart failure chronicity: acute on chronic Heart failure type: unspecified Qualified Code(s): I50.9 - Heart failure, unspecified Code(s): I50.9 - Heart failure, unspecified Status: Acute Assessment and Plan: Pulmonary edema on chest x-ray, could be related to CHF likely 2/2 Fluid overloaded 2/2 inadequate dialysis Dialysis per Nephrology 07/23/2025: Echocardiogram from [facility] * left ventricle is normal in size with estimated EF of 50 - 55% * right ventricular systolic function is at the lower limit of normal * moderate to severe aortic stenosis * no evidence of aortic valve regurgitation * mild to moderate mitral and pulmonic regurgitation * no evidence of mitral stenosis * moderate tricuspid regurgitation * moderate pulmonary hypertension * mildly dilated ascending aorta 08/07: -BLE edema persistent, pt does not answer if she has SOB or CP. Will continue to assess. Continue HD and neph f/u recs 08/08: Denies SOB and CP today. BLE hard, but not sure would call them edematous. Will discuss with pt daughter Shima. (5) DM type 2 (diabetes mellitus, type 2): Onset Date: ~2018 Qualifiers: Diabetes mellitus complication status: without complication Diabetes mellitus intermodal customer service insulin use: without nursing home use Qualified Code(s): E11.9 - Type 2 diabetes mellitus without complications Code(s): E11.9 - Type 2 diabetes mellitus without complications Status: Chronic Assessment and Plan: Continue Accu-Cheks and sliding scale insulin 08/07: -Per med rec, pt has only been getting 10units lantus in the AMs total. Reviewed with nursing and this was confirmed. Since AM blood sugars have been elevated, will increase pt lantus from 10 units daily to 15 units. -Continue to trend sugars via CMP and POC testing 08/08: -Per RN, verified that pt home dose of lantus is 25 in the AM. Will switch her to this to start tomorrow AM due to persistent high AM sugars. (6) Atrial fibrillation: Qualifiers: Atrial fibrillation type: permanent Qualified Code(s): I48.21 - Pe rmanent atrial fibrillation Code(s): I48.91 - Unspecified atrial fibrillation Status: Acute Assessment and Plan: History of atrial fibrillation, continue Eliquis and metoprolol Continue on telemetry monitoring Plan DVT prophylaxis: Eliquis Stress ulcer prophylaxis: no indication Nutrition: diabetic diet Code Status: Full code Plan: Speak to Shima (daughter) for f/u with neurocorinah sign off, HD tomorrow Time Spent With Patient Time: 30 Subjective Date/time seen: 08/08/25 1440 Interval history: Pt seems to be more alert today. Denies any issues, including denying pain in her legs. Pt eating and drinking. Review of Systems Review of Systems: All systems reviewed & are unremarkable except as noted in HPI and below ROS unobtainable: Yes unobtainable due to mental status (Limited, A&O x1) Exam Narrative: GENERAL: Comfortable, no acute distress HENMT: moist mucous membranes RESPIRATORY: clear to auscultation, no increased respiratory effort CARDIO: Irregularly irregular rhythm mildly tachycardic GI: soft, nontender, bowel sounds present SKIN/EXTREMITIES: no rashes, no edema, no redness or tenderness NEURO: Awake and alert conversant oriented to self not to time and place Const: General: comfortable and no acute distress Other: , female, elderly, ill-appearing, obese body habitus HENMT: Face/Nose/Sinus: Normal nares present Mouth: Yes moist mucous membranes and Yes dry mucous membranes Eyes: General: appearance normal, both eyes and all related structures Sclera: sclerae normal Pupils: Equal, round and reactive pupils present EOM: EOMs intact bilaterally Resp: Effort & Inspection: normal respiratory effort Auscultation: clear to auscultation bilaterally Other: Nasal cannula in place place and tolerating well. Cardio: Rate: tachycardic Rhythm: abnormal rhythm (Consistent with AFib) Other: + murmur GI: Other: Abdomen soft, nondistended, nontender. Normoactive bowel sounds in all quadrant s. Skin: General skin exam: normal color and no rashes or lesions noted Wounds: no wounds Neuro: Cranial nerves: Yes Equal, round and reactive pupils present Other: A&O to self, all that she would answer for me. Moving all extremities. PERRLA. Unable to follow commands, appears to be due to uncooperation. Extrem: Other: Lower extremities very firm bilaterally extending from the feet to the upper thighs, not sure would call it edema, not tender today. DP pulses 2+ bilaterally. Psych: Other: OPAL, pt uncooperative with answering questions Objective Data Vital Signs Vital Signs: Vital Signs - 24 hr 08/07/25 08:00 08/07/25 08:00 08/07/25 08:24 Temperature 98.6 F Pulse Rate 101 H 103 H Respiratory Rate 16 Blood Pressure 101/62 Pulse Oximetry 99 99 Oxygen Delivery Nasal Cannula Oxygen Flow Rate 2 Fraction of Inspired Oxygen 08/07/25 08:38 08/07/25 08:38 08/07/25 08:45 Temperature Pulse Rate 104 H 99 Respiratory Rate Blood Pressure 133/61 110/54 L Pulse Oximetry Oxygen Delivery Oxygen Flow Rate 2 Fraction of Inspired Oxygen 08/07/25 09:00 08/07/25 09:15 08/07/25 09:30 Temperature Pulse Rate 90 116 H 101 H Respiratory Rate Blood Pressure 89/59 L 97/72 L 115/51 L Pulse Oximetry Oxygen Delivery Oxygen Flow Rate Fraction of Inspired Oxygen 08/07/25 09:45 08/07/25 10:00 08/07/25 10:15 Temperature Pulse Rate 73 114 H 72 Respiratory Rate Blood Pressure 96/60 L 120/83 98/47 L Pulse Oximetry Oxygen Delivery Oxygen Flow Rate Fraction of Inspired Oxygen 08/07/25 10:30 08/07/25 10:45 08/07/25 11:00 Temperature Pulse Rate 92 84 73 Respiratory Rate Blood Pressure 95/50 L 113/54 L 80/43 L Pulse Oximetry Oxygen Delivery Oxygen Flow Rate Fraction of Inspired Oxygen 08/07/25 11:15 08/07/25 11:30 08/07/25 11:45 Temperature Pulse Rate 80 100 71 Respiratory Rate Blood Pressure 99/34 L 127/59 L 102/47 L Pulse Oximetry Oxygen Delivery Oxygen Flow Rate Fraction of Inspired Oxygen 08/07/25 12:00 08/07/25 12:00 08/07/25 12:10 Temperature Pulse Rate 75 92 69 Respiratory Rate Blood Pressure 100/70 94/52 L Pulse Oximetry Oxygen Delivery Oxygen Flow Rate Fraction of Inspired Oxygen 08/07/25 12:16 08/07/25 13:08 08/07/25 13:15 Temperature 97.7 F 97.6 F Pulse Rate 79 112 H 112 H Respiratory Rate 20 20 Blood Pressure 94/48 L 118/58 L Pulse Oximetry 94 99 Oxygen Delivery Oxygen Flow Rate Fraction of Inspired Oxygen 08/07/25 16:00 08/07/25 16:00 08/07/25 20:00 Temperature 97.6 F 97.0 F L Pulse Rate 96 98 92 Respiratory Rate 17 18 Blood Pressure 96/58 L 105/82 Pulse Oximetry 96 90 Oxygen Delivery Oxygen Flow Rate Fraction of Inspired Oxygen 08/07/25 20:00 08/07/25 20:00 08/07/25 21:51 Temperature Pulse Rate 92 106 H 92 Respiratory Rate 18 Blood Pressure Pulse Oximetry 90 Oxygen Delivery Nasal Cannula Oxygen Flow Rate 2 Fraction of Inspired Oxygen 28 08/08/25 00:00 08/08/25 04:00 08/08/25 05:54 Temperature 97.4 F L 97.9 F Pulse Rate 92 75 117 H Respiratory Rate 18 18 Blood Pressure 95/65 L 95/60 L Pulse Oximetry 90 92 Oxygen Delivery Oxygen Flow Rate Fraction of Inspired Oxygen 08/08/25 06:17 Temperature 97.7 F Pulse Rate 77 Respiratory Rate 18 Blood Pressure 90/67 L Pulse Oximetry 95 Oxygen Delivery Oxygen Flow Rate Fraction of Inspired Oxygen Intake/Output Intake/Output: Intake & Output 08/05/25 08/06/25 08/07/25 08/08/25 23:59 23:59 23:59 23:59 Intake Total 780 630 480 Output Total 2240 2700 Balance -1460 630 -2220 Meds/Results Medications: Active Medications Generic Name Dose Route Start Last Admin Trade Name Freq PRN Reason Stop Dose Admin Acetaminophen 650 mg 07/29/25 15:59 08/07/25 22:22 Acetaminophen 325 Mg Tablet PO 650 mg Q4H PRN Administration Mild Pain (1-3) or Fever Acetaminophen 650 mg 07/29/25 17:04 Acetaminophen 650 Mg Suppository RECTAL Q6H PRN Mild Pain (1-3) or Fever Albuterol/Ipratropium 3 ml 07/29/25 19:52 Ipratropium 0.5 Mg/Albuterol Sulfate 2.5 Mg (Base) Ampul.Neb 3 Ml INHALATION Q4HRT PRN Shortness of Breath. Apixaban 5 mg 07/30/25 09:00 08/07/25 17:39 Apixaban 5 Mg Tablet PO 5 mg BID BIANKA Administration Aripiprazole 1 mg 07/31/25 21:00 08/07/25 21:51 Aripiprazole 1 Mg Tablet PO 1 mg HS BIANKA Administration Aripiprazole 2 mg 07/31/25 21:00 08/07/25 21:51 Aripiprazole 2 Mg Tablet BY MOUTH 2 mg HS BIANKA Administration Buspirone HCl 5 mg 07/31/25 17:00 08/07/25 17:39 Buspirone Hcl 5 Mg Tablet BY MOUTH 5 mg TID BIANKA Administration Dextrose 12.5 gm 07/29/25 19:52 Dextrose 50% 25 Gm/50 Ml Syringe IV PUSH PRN PRN Hypoglycemia Protocol Docusate Sodium 200 mg 07/31/25 17:00 08/07/25 17:40 Docusate Sodium 100 Mg Capsule PO 200 mg BID BIANKA Administration Glucagon 1 mg 07/29/25 19:52 Glucagon For Inj 1 Mg Vial IM PRN PRN Hypoglycemia Protocol Glucose 15 gm 07/29/25 19:52 Glucose Oral Gel 15 Gm Of Glucse In 37.5 Gm Tube PO PRN PRN Hypoglycemia Protocol Dextrose 1,000 mls @ 100 mls/hr 07/29/25 19:52 Dextrose 5% 1,000 Ml IVPB PRN PRN Hypoglycemia Protocol Albumin Human 50 mls @ 999 mls/hr 07/30/25 05:49 08/05/25 09:13 Albutein IVPB 08/29/25 05:48 999 mls/hr Q10M PRN Administration HYPOTENSION Insulin Aspart 4 - 8 units 07/31/25 08:00 08/07/25 17:35 Insulin Aspart (*Bkc) 100 Units/Ml SUB-Q Not Given TIDWM BIANKA Protocol Insulin Aspart 2 - 4 units 07/30/25 21:00 08/07/25 21:52 Insulin Aspart (*Bkc) 100 Units/Ml SUB-Q 2 units HS BIANKA Administration Protocol Insulin Glargine 20 units 08/04/25 09:00 Insulin Glargine (*Bkc) 100 Units/Ml SUB-Q On Hold: 08/04/25 09:00 QAM BIANKA Insulin Glargine 15 units 08/08/25 09:00 Insulin Glargine (*Bkc) 100 Units/Ml 0.15 units/kg (15 units) SUB-Q DAILY BIANKA Memantine 5 mg 08/02/25 09:00 08/07/25 08:23 Memantine 5 Mg Tablet PO 08/09/25 08:59 Not Given QAM BIANKA Memantine 5 mg 08/09/25 09:00 Memantine 5 Mg Tablet PO Q12HR BIANKA Methylphenidate HCl 10 mg 08/01/25 08:00 08/07/25 13:09 Methylphenidate Hcl (*Crx) 10 Mg Tablet PO 10 mg 0800,1200 BIANKA Administration Metoprolol Tartrate 25 mg 08/03/25 21:00 08/07/25 21:51 Metoprolol Tartrate 25 Mg Tablet PO 25 mg Q12HR BIANKA Administration Midodrine 10 mg 08/04/25 06:00 08/08/25 05:50 Midodrine Hcl 10 Mg Tablet PO 10 mg Q8HR BIANKA Administration Naloxone HCl 0.1 mg 07/29/25 20:26 Naloxone Hcl 0.4 Mg/Ml Vial IV PUSH Q5MIN PRN Sedation Non-Formulary Medication 30 mg 08/01/25 18:00 08/07/25 17:40 Tenapanor [Xphozah] PO 08/31/25 17:59 30 mg QPM BIANKA Administration Ondansetron HCl 4 mg 07/29/25 15:59 08/03/25 16:40 Ondansetron Inj 4 Mg/2 Ml Vial IV PUSH 4 mg Q4H PRN Administration Nausea Pantoprazole Sodium 40 mg 07/30/25 09:00 08/07/25 08:23 Pantoprazole Sodium Iv 40 Mg Vial IV PUSH Not Given QAM BIANKA Rosuvastatin Calcium 10 mg 08/01/25 09:00 08/07/25 08:23 Rosuvastatin 10 Mg Tablet PO Not Given DAILY BIANKA Sertraline HCl 50 mg 08/01/25 09:00 08/07/25 08:23 Sertraline Hcl 50 Mg Tablet PO Not Given DAILY BIANKA Sodium Chloride 20 ml 07/29/25 15:58 Central Line Flush IV PUSH PRN PRN after blood draws Radiology Results: ITS Impressions Head CT 07/29/25 17:35 Impression: 1.No acute intracranial abnormality. Chest/Abdomen/Pelvis CT 07/29/25 18:21 IMPRESSION: CHEST- 1. Mild interstitial pulmonary edema with small left pleural effusions and bi basilar atelectasis. 2. No other acute abnormality. ABDOMEN/PELVIS- 1. No acute abnormality. 2. Additional findings as above. Chest X-Ray 08/05/25 08:35 IMPRESSION: 1. Persistent right perihilar and bibasilar opacities which represent atelectasis or pneumonia. 2. Cardiomegaly with enlargement of the central pulmonary arteries consistent with pulmonary arterial hypertension. Labs Labs: Laboratory Results - last 24 hr 08/07/25 08/07/25 08/07/25 07:49 13:01 16:51 WBC RBC Hgb Hct MCV MCH MCHC RDW Plt Count MPV Immature Gran % (Auto) Neut % (Auto) Lymph % (Auto) [place] % (Auto) Eos % (Auto) Baso % (Auto) Lymph # (Auto) [place] # (Auto) Eos # (Auto) Baso # (Auto) Abs Immat Gran (auto) Absolute Neuts (auto) Absolute Nucleated RBC Band Neutrophils % Nucleated RBC % Platelet Estimate Hypochromasia Ovalocytes Schistocytes Sodium Potassium Chloride Carbon Dioxide Anion Gap BUN Creatinine Estim Creat Clear Calc Estimated GFR Glucose POC Capillary Glucose 256 H 134 H 192 H Calcium Magnesium Total Bilirubin AST ALT Alkaline Phosphatase Total Protein Albumin 08/07/25 08/08/25 08/08/25 20:11 03:32 07:31 WBC 11.6 H RBC 3.63 L Hgb 10.6 L Hct 35.4 L MCV 97.5 MCH 29.2 MCHC 29.9 L RDW 17.6 H Plt Count 305 MPV 10.4 Immature Gran % (Auto) 0.5 Neut % (Auto) 76.0 H Lymph % (Auto) 11.6 L [place] % (Auto) 9.8 H Eos % (Auto) 1.6 Baso % (Auto) 0.5 Lymph # (Auto) 1.34 [place] # (Auto) 1.1 H Eos # (Auto) 0.2 Baso # (Auto) 0.1 Abs Immat Gran (auto) 0.06 H Absolute Neuts (auto) 8.8 H Absolute Nucleated RBC 0.020 H Band Neutrophils % Not Reportable Nucleated RBC % 0.2 Platelet Estimate Adequate Hypochromasia 1+ Ovalocytes Occasional Schistocytes None seen Sodium 137 Potassium 4.1 Chloride 93 L Carbon Dioxide 24 Anion Gap 20 H BUN 46 H D Creatinine 3.76 H Estim Creat Clear Calc 13 Estimated GFR 12 L Glucose 221 H POC Capillary Glucose 235 H 217 H Calcium 11.7 H Magnesium 2.1 Total Bilirubin 1.0 AST 37 H ALT 23 Alkaline Phosphatase 157 H Total Protein 8.5 H Albumin 4.6 Quality VTE Prophylaxis VTE prophylaxis: pharmacologic ordered
[2025-08-08] MEDS: PANTOPRAZOLE SODIUM IV 40 MG VIAL IV PUSH (08:12)
[2025-08-08] MEDS: DOCUSATE SODIUM 100 MG CAPSULE 200 MG PO (08:13)
[2025-08-08] MEDS: METOPROLOL TARTRATE 25 MG TABLET PO ×2 (08:13→20:33)
[2025-08-08] MEDS: ACETAMINOPHEN 325 MG TABLET 650 MG PO ×3 (08:13→20:41)
[2025-08-08] MEDS: APIXABAN 5 MG TABLET PO ×2 (08:13→17:11)
[2025-08-08] MEDS: SERTRALINE HCL 50 MG TABLET PO (08:13)
[2025-08-08] MEDS: ROSUVASTATIN 10 MG TABLET PO (08:13)
[2025-08-08] MEDS: INSULIN ASPART (*BKC) 100 UNITS/ML SUB-Q ×4 (08:14→21:20)
[2025-08-08] MEDS: INSULIN GLARGINE (*BKC) 100 UNITS/ML 15 UNITS SUB-Q (08:14)
[2025-08-08] MEDS: MEMANTINE 5 MG TABLET PO (08:14)
[2025-08-08] MEDS: methylPHENIDATE HCL (*CRX) 10 MG TABLET PO ×2 (08:16→12:19)
--- NOTE | 2025-08-08 13:23 | P.PNNP_ITS ---
Progress Note: A&P Assessment and Plan (1) ESRD (end stage renal disease): Code(s): N18.6 - End stage renal disease Status: Chronic Assessment and Plan: * HD tomorrow * resume Tue/Tue/Tuesday dialysis schedule this week * follow electrolytes, volume status, and clearance * high calcium likely related to not getting Sensipar here (2) Hypotension: Code(s): I95.9 - Hypotension, unspecified Status: Acute Assessment and Plan: * acute on chronic * recent and previous echocardiograms noted * baseline systolic BP runs in the 90s for the last month * recently started on midodrine therapy from recent [facility] admission * remains on midodrine therapy (3) AMS (altered mental status): Qualifiers: Altered mental status type: transient alteration of awareness Qualified Code(s): R40.4 - Transient alteration of awareness Code(s): R41.82 - Altered mental status, unspecified Status: Acute Assessment and Plan: * improvement noted * despite underlying dementia, usually alert and oriented x 3 (although not consistently) * head CT negative * due to hypotension versus infection (i.e. pneumonia?) * Neurology following * EEG results noted * continue supportive therapy (4) Acute hypoxic respiratory failure: Code(s): J96.01 - Acute respiratory failure with hypoxia Status: Acute Assessment and Plan: * slowly improving * as noted since admission * presumably due to volume overload (CHF + pulmonary edema) and recent pneumonia * admission imaging noted * fluid removal challenging in the context of hypotension (presumably a problem during recent hospitalization at [facility] as well) * ongoing fluid removal with HD/DUF * recent CXR noted * wean supplemental oxygen as tolerated (5) Urinary tract infection: Qualifiers: Hematuria presence: without hematuria Urinary tract infection type: a cute cystitis Qualified Code(s): N30.00 - Acute cystitis without hematuria Code(s): N39.0 - Urinary tract infection, site not specified Status: Acute Assessment and Plan: * admission UA suggestive * follow culture data -- however, no urine culture done * completed course of antibiotics (6) Volume overload: Code(s): E87.70 - Fluid overload, unspecified Status: Acute Assessment and Plan: * as suggested by evidence to date: * imaging with CHF findings and pulmonary edema * ~ 8kg above dry weight per outpatient dialysis clinic when seen on 07/29 * aggressive fluid removal with HD and DUF as tolerated by hemodynamics * Echo from admission to [facility] noted (07/23/25): * left ventricle is normal in size with estimated EF of 50 - 55% * right ventricular systolic function is at the lower limit of normal * moderate to severe aortic stenosis * no evidence of aortic valve regurgitation * mild to moderate mitral and pulmonic regurgitation * no evidence of mitral stenosis * moderate tricuspid regurgitation * moderate pulmonary hypertension * mildly dilated ascending aorta * almost 14L negative since admission * follow respiratory status and clinical exam (7) Anemia: Qualifiers: Anemia type: due to chronic kidney disease Chronic kidney disease stage: on chronic dialysis Qualified Code(s): N18.6 - End stage renal disease; D63.1 - Anemia in chronic kidney disease; Z99.2 - Dependence on renal dialysis Code(s): D64.9 - Anemia, unspecified Status: Chronic Assessment and Plan: * due to ESRD and acute illness * anemia studies noted: * evidence of mild iron deficiency * follow trend of H/H * Epogen with HD (8) DM type 2 (diabetes mellitus, type 2): Onset Date: ~2018 Qualifiers: Diabetes mellitus mailing manager insulin use: without retirement use Diabetes mellitus complication status: without complication Qualified Code(s): E11.9 - Type 2 diabetes mellitus without complications Code(s): E11.9 - Type 2 diabetes mellitus without complications Status: Chronic Assessment and Plan: * follow accu-cheks * glycemic control per hospitalist Will continue to follow. L Subjective Date/time seen: 08/08/25 13:23 Interval history: Following for end stage renal disease on hemodialysis. Tolerated dialysis treatment yesterday without any issue or problems; mentation seems to be at baseline at the time of my visit; eating and drinking reasonably well; denies any acute symptoms with regard to chest pain, shortness of breath, or lower extremity pain/discomfort. Exam 2 Narrative: General: elderly but WD/WN female in NAD Heart: IRRR, normal S1 and S2; no rub Lungs: coarse breath sounds; decreased at bases Abdomen: obese but soft, nontender, nondistended, positive bowel sounds Extremities: no cyanosis or clubbing; trace edema (UEs and LEs) Skin: warm and intact Objective Data Vital Signs Vital Signs: Vital Signs Temp Pulse Resp BP Pulse Ox O2 Del Method O2 Flow Rate 08/08/25 16:00 103 H 08/08/25 12:00 97.6 F 103 H 18 90/49 L 96 08/08/25 12:00 104 H 08/08/25 08:15 96 Room Air 08/08/25 08:13 113 H 08/08/25 08:00 105 H 08/08/25 06:17 97.7 F 77 18 90/67 L 95 08/08/25 05:54 117 H 08/08/25 04:00 97.9 F 75 18 95/60 L 92 08/08/25 00:00 97.4 F L 92 18 95/65 L 90 08/07/25 21:51 92 08/07/25 20:00 106 H 08/07/25 20:00 92 18 90 Nasal Cannula 2 08/07/25 20:00 97.0 F L 92 18 105/82 90 FiO2 08/08/25 16:00 08/08/25 12:00 08/08/25 12:00 08/08/25 08:15 08/08/25 08:13 08/08/25 08:00 08/08/25 06:17 08/08/25 05:54 08/08/25 04:00 08/08/25 00:00 08/07/25 21:51 08/07/25 20:00 08/07/25 20:00 28 08/07/25 20:00 Intake/Output Intake/Output: Intake & Output 08/05/25 08/06/25 08/07/25 08/08/25 23:59 23:59 23:59 23:59 Intake Total 780 630 480 690 Output Total 2240 2700 Balance -1460 630 -2220 690 Meds/Results Medications: Active Medications Generic Name Dose Route Start Last Admin Trade Name Freq PRN Reason Stop Dose Admin Acetaminophen 650 mg 07/29/25 15:59 08/08/25 12:19 Acetaminophen 325 Mg Tablet PO 650 mg Q4H PRN Administration Mild Pain (1-3) or Fever Acetaminophen 650 mg 07/29/25 17:04 Acetaminophen 650 Mg Suppository RECTAL Q6H PRN Mild Pain (1-3) or Fever Albuterol/Ipratropium 3 ml 07/29/25 19:52 Ipratropium 0.5 Mg/Albuterol Sulfate 2.5 Mg (Base) Ampul.Neb 3 Ml INHALATION Q4HRT PRN Shortness of Breath. Apixaban 5 mg 07/30/25 09:00 08/08/25 08:13 Apixaban 5 Mg Tablet PO 5 mg BID BIANKA Administration Aripiprazole 1 mg 07/31/25 21:00 08/07/25 21:51 Aripiprazole 1 Mg Tablet PO 1 mg HS BIANKA Administration Aripiprazole 2 mg 07/31/25 21:00 08/07/25 21:51 Aripiprazole 2 Mg Tablet BY MOUTH 2 mg HS BIANKA Administration Buspirone HCl 5 mg 07/31/25 17:00 08/08/25 12:19 Buspirone Hcl 5 Mg Tablet BY MOUTH 5 mg TID BIANKA Administration Dextrose 12.5 gm 07/29/25 19:52 Dextrose 50% 25 Gm/50 Ml Syringe IV PUSH PRN PRN Hypoglycemia Protocol Docusate Sodium 200 mg 07/31/25 17:00 08/08/25 08:13 Docusate Sodium 100 Mg Capsule PO 200 mg BID BIANKA Administration Glucagon 1 mg 07/29/25 19:52 Glucagon For Inj 1 Mg Vial IM PRN PRN Hypoglycemia Protocol Glucose 15 gm 07/29/25 19:52 Glucose Oral Gel 15 Gm Of Glucse In 37.5 Gm Tube PO PRN PRN Hypoglycemia Protocol Dextrose 1,000 mls @ 100 mls/hr 07/29/25 19:52 Dextrose 5% 1,000 Ml IVPB PRN PRN Hypoglycemia Protocol Albumin Human 50 mls @ 999 mls/hr 07/30/25 05:49 08/05/25 09:13 Albutein IVPB 08/29/25 05:48 999 mls/hr Q10M PRN Administration HYPOTENSION Insulin Aspart 4 - 8 units 07/31/25 08:00 08/08/25 12:19 Insulin Aspart (*Bkc) 100 Units/Ml SUB-Q 5 units TIDWM BIANKA Administration Protocol Insulin Aspart 2 - 4 units 07/30/25 21:00 08/07/25 21:52 Insulin Aspart (*Bkc) 100 Units/Ml SUB-Q 2 units HS BIANKA Administration Protocol Insulin Glargine 25 units 08/09/25 08:00 Insulin Glargine (*Bkc) 100 Units/Ml SUB-Q DAILY@0800 BIANKA Memantine 5 mg 08/02/25 09:00 08/08/25 08:14 Memantine 5 Mg Tablet PO 08/09/25 08:59 5 mg QAM BIANKA Administration Memantine 5 mg 08/09/25 09:00 Memantine 5 Mg Tablet PO Q12HR BIANKA Methylphenidate HCl 10 mg 08/01/25 08:00 08/08/25 12:19 Methylphenidate Hcl (*Crx) 10 Mg Tablet PO 10 mg 0800,1200 BIANKA Administration Metoprolol Tartrate 25 mg 08/03/25 21:00 08/08/25 08:13 Metoprolol Tartrate 25 Mg Tablet PO 25 mg Q12HR BIANKA Administration Midodrine 10 mg 08/04/25 06:00 08/08/25 14:44 Midodrine Hcl 10 Mg Tablet PO 10 mg Q8HR BIANKA Administration Naloxone HCl 0.1 mg 07/29/25 20:26 Naloxone Hcl 0.4 Mg/Ml Vial IV PUSH Q5MIN PRN Sedation Non-Formulary Medication 30 mg 08/01/25 18:00 08/07/25 17:40 Tenapanor [Xphozah] PO 08/31/25 17:59 30 mg QPM BIANKA Administration Ondansetron HCl 4 mg 07/29/25 15:59 08/03/25 16:40 Ondansetron Inj 4 Mg/2 Ml Vial IV PUSH 4 mg Q4H PRN Administration Nausea Pantoprazole Sodium 40 mg 07/30/25 09:00 08/08/25 08:12 Pantoprazole Sodium Iv 40 Mg Vial IV PUSH 40 mg QAM BIANKA Administration Rosuvastatin Calcium 10 mg 08/01/25 09:00 08/08/25 08:13 Rosuvastatin 10 Mg Tablet PO 10 mg DAILY BIANKA Administration Sertraline HCl 50 mg 08/01/25 09:00 08/08/25 08:13 Sertraline Hcl 50 Mg Tablet PO 50 mg DAILY BIANKA Administration Sodium Chloride 20 ml 07/29/25 15:58 Central Line Flush IV PUSH PRN PRN after blood draws Radiology Results: ITS Impressions Head CT 07/29/25 17:35 Impression: 1.No acute intracranial abnormality. Chest/Abdomen/Pelvis CT 07/29/25 18:21 IMPRESSION: CHEST- 1. Mild interstitial pulmonary edema with small left pleural effusions and bibasilar atelectasis. 2. No other acute abnormality. ABDOMEN/PELVIS- 1. No acute abnormality. 2. Additional findings as above. Chest X-Ray 08/05/25 08:35 IMPRESSION: 1. Persistent right perihilar and bibasilar opacities which represent atelectasis or pneumonia. 2. Cardiomegaly with enlargement of the central pulmonary arteries consistent with pulmonary arterial hypertension. Labs Labs: Laboratory Tests 08/08/25 03:32 08/08/25 03:32 Calcium 11.7 H Magnesium 2.1 Total Bilirubin 1.0 AST 37 H ALT 23 Alkaline Phosphatase 157 H Total Protein 8.5 H Albumin 4.6
[2025-08-08] MEDS: [UNRECOGNIZED DRUG - OTHER] PO (17:13)
[2025-08-08] MEDS: TENAPANOR 30 MG PO (17:13)
[2025-08-09] VITALS (36 sets, daily range): BP systolic 65–124; BP diastolic 37–100; PULSE 60–132; RESP 16–30; TEMP 36.3–37.9; O2SAT 90–100
[2025-08-09 05:27] LABS: Hematocrit 34.0 % (37.0-47.0); Hemoglobin 10.4 g/dL (12.0-15.0); Immature Granulocyte Percent A 0.6 % (0-0.5); Lymphocytes Absolute Auto 1.26 K/mm3 (0.9-3.2); Mean Corpuscular HGB Conc 30.6 g/dl (32-36); Mean Corpuscular Hemoglobin 29.1 pg (26-34); Mean Corpuscular Volume 95.0 fl (80-100); Nucleated Red Blood Cells Absolute Auto 0.000 K/mm3 (0.0-0.012); Nucleated Red Blood Cells Perc 0.0 % (0.0-0.2); Platelet Count Result 317 k/mm3 (150-375); Red Blood Count 3.58 M/mm3 (4.2-5.4); White Blood Count 10.9 K/mm3 (4.5-10.0)
[2025-08-09 05:43] LABS: Alanine Aminotransferase 20 U/L (6-35); Albumin Level 4.5 g/dL (3.5-5.1); Alkaline Phosphatase 154 U/L (38-126); Anion Gap 22 mmol/L (4-12); Aspartate Amino Transferase 28 U/L (14-36); Bilirubin,Total 0.9 mg/dL (0.2-1.3); Blood Urea Nitrogen 78 mg/dL (7-17); Calcium 10.7 mg/dL (8.4-10.2); Carbon Dioxide 19 mmol/L (22-30); Chloride 92 mmol/L (98-107); Estimated CRCL calculation 9 ml/min; Estimated Glomerular Filt Rate 8; Glucose 240 mg/dL (65-110); Magnesium 2.1 mg/dL (1.6-2.3); Potassium 4.1 mmol/L (3.4-5.0); Sodium 133 mmol/L (137-145); Total Protein 8.1 g/dL (6.3-8.2)
[2025-08-09] MEDS: MIDODRINE HCL 10 MG TABLET PO ×3 (05:45→18:53)
[2025-08-09] MEDS: INSULIN GLARGINE (*BKC) 100 UNITS/ML 25 UNITS SUB-Q (07:51)
[2025-08-09] MEDS: ALBUMIN HUMAN 25% 12.5 GM/50ML 50 ML 50 GM (08:24)
[2025-08-09] MEDS: SODIUM CHLORIDE 0.9% IV 1,000 ML 999 ML IV CONT (08:25)
[2025-08-09] MEDS: EPOETIN ALFA-EPBX 10,000 UNITS/ML VIAL 10000 UNITS IV PUSH (09:23)
--- NOTE | 2025-08-09 09:25 | P.PNNP_ITS ---
Progress Note: A&P Assessment and Plan (1) ESRD (end stage renal disease): Code(s): N18.6 - End stage renal disease Status: Chronic Assessment and Plan: * HD today * resume Tue/Tue/Tuesday dialysis schedule this week * follow electrolytes, volume status, and clearance * high calcium likely related to not getting Sensipar here * [facility] (2) Hypotension: Code(s): I95.9 - Hypotension, unspecified Status: Acute Assessment and Plan: * acute on chronic * recent and previous echocardiograms noted * baseline systolic BP runs in the 90s for the last month * recently started on midodrine therapy from recent [facility] admission * remains on midodrine therapy (3) AMS (altered mental status): Qualifiers: Altered mental status type: transient alteration of awareness Qualified Code(s): R40.4 - Transient alteration of awareness Code(s): R41.82 - Altered mental status, unspecified Status: Acute Assessment and Plan: * improvement noted * despite underlying dementia, usually alert and oriented x 3 (although not consistently) * head CT negative * due to hypotension versus infection (i.e. pneumonia?) * Neurology following * EEG results noted * continue supportive therapy (4) Acute hypoxic respiratory failure: Code(s): J96.01 - Acute respiratory failure with hypoxia Status: Acute Assessment and Plan: * slowly improving * as noted since admission * presumably due to volume overload (CHF + pulmonary edema) and recent pneumonia * admission imaging noted * fluid removal challenging in the context of hypotension (presumably a problem during recent hospitalization at [facility] as well) * ongoing fluid removal with HD/DUF * recent CXR noted * off supplemental oxygen (5) Urinary tract infection: Qualifiers: Hematuria presence: without hematuria Urinary tract infection type: a cute cystitis Qualified Code(s): N30.00 - Acute cystitis without hematuria Code(s): N39.0 - Urinary tract infection, site not specified Status: Acute Assessment and Plan: * admission UA suggestive * follow culture data -- however, no urine culture done * completed course of antibiotics (6) Volume overload: Code(s): E87.70 - Fluid overload, unspecified Status: Acute Assessment and Plan: * as suggested by evidence to date: * imaging with CHF findings and pulmonary edema * ~ 8kg above dry weight per outpatient dialysis clinic when seen on 07/29 * aggressive fluid removal with HD and DUF as tolerated by hemodynamics * Echo from admission to [facility] noted (07/23/25): * left ventricle is normal in size with estimated EF of 50 - 55% * right ventricular systolic function is at the lower limit of normal * moderate to severe aortic stenosis * no evidence of aortic valve regurgitation * mild to moderate mitral and pulmonic regurgitation * no evidence of mitral stenosis * moderate tricuspid regurgitation * moderate pulmonary hypertension * mildly dilated ascending aorta * almost 13L negative since admission * follow respiratory status and clinical exam (7) Anemia: Qualifiers: Anemia type: due to chronic kidney disease Chronic kidney disease stage: on chronic dialysis Qualified Code(s): N18.6 - End stage renal disease; D63.1 - Anemia in chronic kidney disease; Z99.2 - Dependence on renal dialysis Code(s): D64.9 - Anemia, unspecified Status: Chronic Assessment and Plan: * due to ESRD and acute illness * anemia studies noted: * evidence of mild iron deficiency * follow trend of H/H * Epogen with HD (8) DM type 2 (diabetes mellitus, type 2): Onset Date: ~2018 Qualifiers: Diabetes mellitus complication status: without complication Diabetes mellitus long line teamster insulin use: without long line teamster use Qualified Code(s): E11.9 - Type 2 diabetes mellitus without complications Code(s): E11.9 - Type 2 diabetes mellitus without complications Status: Chronic Assessment and Plan: * follow accu-cheks * glycemic control per hospitalist Will continue to follow. L Subjective Date/time seen: 08/09/25 09:25 Interval history: Following for end stage renal disease on hemodialysis. Tolerating dialysis treatment at the time of my visit (seen on HD at 9:15am) but hypotension limiting fluid removal today; some difficulty accessing arterial side of AVG so one port of HD catheter being used with one needle in AVG for dialyisis treatment today; no other issues/events overnight or earlier this morning; no apparent distress noted when seen. Exam 2 Narrative: General: elderly but WD/WN female in NAD Heart: IRRR, normal S1 and S2; no rub Lungs: coarse breath sounds; decreased at bases Abdomen: obese but soft, nontender, nondistended, positive bowel sounds Extremities: no cyanosis or clubbing; trace edema (UEs and LEs) Skin: warm and dry Objective Data Vital Signs Vital Signs: Vital Signs Temp Pulse Resp BP Pulse Ox O2 Del Method 08/09/25 09:15 66 121/98 H 08/09/25 09:00 63 102/47 L 08/09/25 08:45 88 82/45 L 08/09/25 08:30 62 100/60 08/09/25 08:18 80 93/62 L 08/09/25 08:05 100.0 F H 112 H 16 98/58 L 94 08/09/25 06:17 97.9 F 105 H 18 106/37 L 90 08/09/25 04:00 97.3 F L 110 H 18 99/41 L 98 08/09/25 04:00 108 H 08/09/25 00:00 96 08/09/25 00:00 97.8 F 109 H 18 118/62 100 08/08/25 20:33 102 H 08/08/25 20:00 104 H 08/08/25 20:00 Room Air 08/08/25 20:00 97.1 F L 64 18 112/74 93 08/08/25 16:00 98 F 88 16 98/51 L 89 L 08/08/25 16:00 103 H Intake/Output Intake/Output: Intake & Output 08/06/25 08/07/25 08/08/25 08/09/25 23:59 23:59 23:59 23:59 Intake Total 230 687 3403 Output Total 2700 1269 Balance 630 -2220 1170 -1269 Meds/Results Medications: Active Medications Generic Name Dose Route Start Last Admin Trade Name Freq PRN Reason Stop Dose Admin Acetaminophen 650 mg 07/29/25 15:59 08/08/25 20:41 Acetaminophen 325 Mg Tablet PO 650 mg Q4H PRN Administration Mild Pain (1-3) or Fever Acetaminophen 650 mg 07/29/25 17:04 Acetaminophen 650 Mg Suppository RECTAL Q6H PRN Mild Pain (1-3) or Fever Albuterol/Ipratropium 3 ml 07/29/25 19:52 Ipratropium 0.5 Mg/Albuterol Sulfate 2.5 Mg (Base) Ampul.Neb 3 Ml INHALATION Q4HRT PRN Shortness of Breath. Apixaban 5 mg 07/30/25 09:00 08/09/25 12:35 Apixaban 5 Mg Tablet PO 5 mg BID BIANKA Administration Aripiprazole 1 mg 07/31/25 21:00 08/08/25 20:33 Aripiprazole 1 Mg Tablet PO 1 mg HS BIANKA Administration Aripiprazole 2 mg 07/31/25 21:00 08/08/25 20:34 Aripiprazole 2 Mg Tablet BY MOUTH 2 mg HS BIANKA Administration Buspirone HCl 5 mg 07/31/25 17:00 08/09/25 12:36 Buspirone Hcl 5 Mg Tablet BY MOUTH 5 mg TID BIANKA Administration Dextrose 12.5 gm 07/29/25 19:52 Dextrose 50% 25 Gm/50 Ml Syringe IV PUSH PRN PRN Hypoglycemia Protocol Docusate Sodium 200 mg 07/31/25 17:00 08/09/25 12:38 Docusate Sodium 100 Mg Capsule PO Not Given BID BIANKA Epoetin [place]-epbx 10,000 units 08/09/25 18:20 08/09/25 09:23 Epoetin [place]-Epbx 10,000 Units/Ml Vial IV PUSH 08/09/25 18:21 10,000 units ONCE ONE Administration Glucagon 1 mg 07/29/25 19:52 Glucagon For Inj 1 Mg Vial IM PRN PRN Hypoglycemia Protocol Glucose 15 gm 07/29/25 19:52 Glucose Oral Gel 15 Gm Of Glucse In 37.5 Gm Tube PO PRN PRN Hypoglycemia Protocol Dextrose 1,000 mls @ 100 mls/hr 07/29/25 19:52 Dextrose 5% 1,000 Ml IVPB PRN PRN Hypoglycemia Protocol Albumin Human 50 mls @ 999 mls/hr 07/30/25 05:49 08/05/25 09:13 Albutein IVPB 08/29/25 05:48 999 mls/hr Q10M PRN Administration HYPOTENSION Insulin Aspart 4 - 8 units 07/31/25 08:00 08/09/25 12:37 Insulin Aspart (*Bkc) 100 Units/Ml SUB-Q Not Given TIDWM BIANKA Protocol Insulin Aspart 2 - 4 units 07/30/25 21:00 08/08/25 21:20 Insulin Aspart (*Bkc) 100 Units/Ml SUB-Q 2 units HS BIANKA Administration Protocol Insulin Glargine 25 units 08/09/25 08:00 08/09/25 07:51 Insulin Glargine (*Bkc) 100 Units/Ml SUB-Q 25 units DAILY@0800 BIANKA Administration Memantine 5 mg 08/09/25 09:00 08/09/25 12:36 Memantine 5 Mg Tablet PO 5 mg Q12HR BIANKA Administration Methylphenidate HCl 10 mg 08/01/25 08:00 08/09/25 12:38 Methylphenidate Hcl (*Crx) 10 Mg Tablet PO Not Given 0800,1200 [facility] Metoprolol Tartrate 25 mg 08/03/25 21:00 08/09/25 12:34 Metoprolol Tartrate 25 Mg Tablet PO 25 mg Q12HR BIANKA Administration Midodrine 10 mg 08/04/25 06:00 08/09/25 12:34 Midodrine Hcl 10 Mg Tablet PO 10 mg Q8HR BIANKA Administration Naloxone HCl 0.1 mg 07/29/25 20:26 Naloxone Hcl 0.4 Mg/Ml Vial IV PUSH Q5MIN PRN Sedation Non-Formulary Medication 30 mg 08/01/25 18:00 08/08/25 17:13 Tenapanor [Xphozah] PO 08/31/25 17:59 30 mg QPM BIANKA Administration Ondansetron HCl 4 mg 07/29/25 15:59 08/03/25 16:40 Ondansetron Inj 4 Mg/2 Ml Vial IV PUSH 4 mg Q4H PRN Administration Nausea Pantoprazole Sodium 40 mg 07/30/25 09:00 08/09/25 12:38 Pantoprazole Sodium Iv 40 Mg Vial IV PUSH 40 mg QAM BIANKA Administration Rosuvastatin Calcium 10 mg 08/01/25 09:00 08/09/25 12:36 Rosuvastatin 10 Mg Tablet PO 10 mg DAILY BIANKA Administration Sertraline HCl 50 mg 08/01/25 09:00 08/09/25 12:36 Sertraline Hcl 50 Mg Tablet PO 50 mg DAILY [facility] Administration Sodium Chloride 20 ml 07/29/25 15:58 Central Line Flush IV PUSH PRN PRN after blood draws Radiology Results: ITS Impressions Head CT 07/29/25 17:35 Impression: 1.No acute intracranial abnormality. Chest/Abdomen/Pelvis CT 07/29/25 18:21 IMPRESSION: CHEST- 1. Mild interstitial pulmonary edema with small left pleural effusions and bibasilar atelectasis. 2. No other acute abnormality. ABDOMEN/PELVIS- 1. No acute abnormality. 2. Additional findings as above. Chest X-Ray 08/05/25 08:35 IMPRESSION: 1. Persistent right perihilar and bibasilar opacities which represent atelectasis or pneumonia. 2. Cardiomegaly with enlargement of the central pulmonary arteries consistent with pulmonary arterial hypertension. Labs Labs: Laboratory Tests 08/09/25 04:43 08/09/25 04:43 Calcium 10.7 H Magnesium 2.1 Total Bilirubin 0.9 AST 28 ALT 20 Alkaline Phosphatase 154 H Total Protein 8.1 Albumin 4.5
[2025-08-09] MEDS: METOPROLOL TARTRATE 25 MG TABLET PO ×2 (12:34→20:21)
[2025-08-09] MEDS: APIXABAN 5 MG TABLET PO ×2 (12:35→17:35)
[2025-08-09] MEDS: SERTRALINE HCL 50 MG TABLET PO (12:36)
[2025-08-09] MEDS: MEMANTINE 5 MG TABLET PO ×2 (12:36→20:21)
[2025-08-09] MEDS: ROSUVASTATIN 10 MG TABLET PO (12:36)
[2025-08-09] MEDS: PANTOPRAZOLE SODIUM IV 40 MG VIAL IV PUSH (12:38)
--- NOTE | 2025-08-09 13:38 | P.PNIM_ITS ---
Progress Note: A&P Assessment and Plan (1) Acute metabolic encephalopathy: Code(s): G93.41 - Metabolic encephalopathy Status: Acute Assessment and Plan: Patient presented with altered mental status/encephalopathy which could be related to uremia, infection along with hypotension -discussed with bakelite molder, who stated that patient is almost 8 L positive since at dry weight -unsure if patient has been dialyzed adequately at [facility] as well as [facility] dialysis [place] due to low blood pressures. She was also started on midodrine at [facility] which will restart here -post dialysis patient more awake -continue to monitor electrolytes and treat underlying cause -CT brain which did not show any acute intracranial abnormality -07/31: Encephalopathy gradually improving this patient is more awake this morning, most likely related to uremia S since she had dialysis yesterday, she seems to be improving, will continue dialysis again today -08/01: Appreciate Neurology evaluation and recommendations, will add Namenda and EEG per Neurology recommendation -EEG was abnormal but neurology never saw the patient again after their first consultation. -----EEG results: 1. Mild diffuse background slowing and frontal intermittent rhythmic delta activity suggestive generalized encephalopathy or bihemispheric lesion.2. Focal slowing and sharp wave activity noted over the left temporal area. Focal slowing may raise possibility of underlying structural lesion. Sharp transients are considered nonspecific focal abnormality. However such abnormalities may be seen many elderly subjects and hence clinical and if necessary radiographic correlation may be helpful. 08/07: -A&Ox 1, seems to possibly be oriented but not answering my questions. Will try again tomorrow since pt will be staying overnight. -Pending neuro consultation post EEG -Continue Namenda 08/08: -Spoke to Dr. Coleman today. He recommends neuro outpt f/u once discharged. Per nurse, per daughter, pt is at her baseline. And would rather f/u with her established neurology team. (2) ESRD (end stage renal disease): Code(s): N18.6 - End stage renal disease Status: Chronic Assessment and Plan: End-stage renal disease on dialysis, Tuesday, Tuesday, Tuesday -after discussion with Nephrology, seems like patient has not been optimally dialyzed at [facility] and at outpatient dialysis center due to hypotension. Patient was 8-10 L positive from her dry weight -07/30: Dialyzed with 2500 mL in fluid removal, she did require Levophed and albumin during dialysis. -07/31: Dialyzed with 4000 mL in fluid removal -08/01: Dialyzed with 4000 mL in fluid removed -patient on midodrine t.i.d. -dialysis per Nephrology 08/02-dialyzed with 4000 mL and fluid removal 08/03-dialyzed with 3000 food review Per nephro, she will resume dialysis MWF -08/05 Pt recieved dialysis 08/07: Received dialysis -Neph following, plan for continued HD, labs, volume status, and clearance 08/08: Plan for dialysis tomorrow. Neph to follow. Continue labs. 08/09: Pt dialyzed today, 3.5 hr treatment performed, 1,300ml taken off. Per Dr. Schwarz, pt cleared to go home from a neph stand point. Labs in the AM, hopeful discharge tomorrow after labs result. (3) Hypotension: Code(s): I95.9 - Hypotension, unspecified Status: Acute Assessment and Plan: Multifactorial, infection, 07/30: CT scan of the chest abdomen follows showed interstitial edema with small left pleural effusion. Abdomen and pelvis did not show any acute abnormality -records have been requested from [facility] -february after repeat an echocardiogram if it was not done at [facility] -continue Zosyn and vancomycin (07/29) will continue for a total of 7 days, discontinued on 08/05 -07/29: Preliminary blood cultures negative x2 -08/04-Hr 100. Resume home metoprolol 08/04/2025: Echocardiogram Summary ATRIAL FIBRILLATION WITH RAPID VENTRICULAR RESPONSE INCOMPLETE LEFT BUNDLE BRANCH BLOCK LEFT VENTRICULAR HYPERTROPHY WITH ST-T CHANGE MINIMAL Q WAVES- HIGH LATERAL LEADS BASELINE ARTIFACT- II, III, V1-V3 ABNORMAL ECG Compared to ECG 07/29/2025 12:56:03 HEART RATE HAS INCREASED 08/07: -BPs have been soft, but stable here. -Remains on midodrine therapy 08/09: -During dialysis, pts low again, 80/50's. Albumin given in dialysis per chart. Normalized now. Continue VS q4 hrs and midodrine. (4) CHF (congestive heart failure): Qualifiers: Heart failure chronicity: acute on chronic Heart failure type: unspecified Qualified Code(s): I50.9 - Heart failure, unspecified Code(s): I50.9 - Heart failure, unspecified Status: Acute Assessment and Plan: Pulmonary edema on chest x-ray, could be related to CHF likely 2/2 Fluid overloaded 2/2 inadequate dialysis Dialysis per Nephrology 07/23/2025: Echocardiogram from [facility] * left ventricle is normal in size with estimated EF of 50 - 55% * right ventricular systolic function is at the lower limit of normal * moderate to severe aortic stenosis * no evidence of aortic valve regurgitation * mild to moderate mitral and pulmonic regurgitation * no evidence of mitral stenosis * moderate tricuspid regurgitation * moderate pulmonary hypertension * mildly dilated ascending aorta 08/07: -BLE edema persistent, pt does not answer if she has SOB or CP. Will continue to assess. Continue HD and neph f/u recs 08/08: Denies SOB and CP today. BLE hard, but not sure would call them edematous. Will discuss with pt daughter Shima. 08/09: Discussed BLE with pt's daughter today, plan for outpatient f/u with established vascular team, Dr. Lamas. Fluid continues to be taken off during dialysis so unlikely related to this. Pt continues to deny CP and SOB to me, although not oriented (baseline). (5) DM type 2 (diabetes mellitus, type 2): Onset Date: ~2018 Qualifiers: Diabetes mellitus complication status: without complication Diabetes mellitus termite treater insulin use: without assisted use Qualified Code(s): E11.9 - Type 2 diabetes mellitus without complications Code(s): E11.9 - Type 2 diabetes mellitus without complications Status: Chronic Assessment and Plan: Continue Accu-Cheks and sliding scale insulin 08/07: -Per med rec, pt has only been getting 10units lantus in the AMs total. Reviewed with nursing and this was confirmed. Since AM blood sugars have been elevated, will increase pt lantus from 10 units daily to 15 units. -Continue to trend sugars via CMP and POC testing 08/08: -Per RN, verified that pt home dose of lantus is 25 in the AM. Will switch her to this to start tomorrow AM due to persistent high AM sugars. (6) Atrial fibrillation: Qualifiers: Atrial fibrillation type: permanent Qualified Code(s): I48.21 - Permanent atrial fibrillation Code(s): I48.91 - Unspecified atrial fibrillation Status: Acute Assessment and Plan: History of atrial fibrillation, continue Eliquis and metoprolol Continue on telemetry monitoring 08/09: -Called to the bedside post dialysis due to pt being in afib rvr 110-130's. Pt asymptomatic, BP 103/51 which is her baseline. Pt missed AM dose of metoprolol 25mg, given when she returned to room. Gave x1 dose of Lopressor 2.5mg IV which helped get heart rate down to 100's. Will continue to monitor. Per daughter, pt runs at this rate at her baseline. (7) Diarrhea: Code(s): R19.7 - Diarrhea, unspecified Status: Acute Assessment and Plan: 08/09: -Per nursing, started today. Ordered cdif to r/o. -Hx of IBS -Encourage fluid intake to prevent dehydration Plan DVT prophylaxis: Eliquis Stress ulcer prophylaxis: Turn schedule Nutrition: diabetic diet Code Status: Full code Plan: R/o c dif, watch afib overnight, make sure electrolytes in the AM and if all WDL, discharge tomorrow. Time Spent With Patient Time: 45 Subjective Date/time seen: 08/09/25 1205 Interval history: Pt with similar orientation and alterness today which is verified as her baseline when spoke to her daughter, Shima, on the phone today. Pt back to her room today from dialysis. Dialysis report her having low blood pressures during treatment and being in afib in the 110-130's, pt daughter also reports that she is often in afib with a higher heart rate. Pt also experiencing diarrhea today, per daughter, pt does have IBS. Had good conversation on the phone with pt's daughter. We discussed the pt's medications, f/u needed with pts PCP/cards/neph/ vascular/neuro teams and NH expectations with VS, daily weights, and fluid restrictions. Review of Systems Review of Systems: All systems reviewed & are unremarkable except as noted in HPI and below ROS unobtainable: Yes unobtainable due to mental status (Limited, A&O x1) Exam Narrative: GENERAL: Comfortable, no acute distress HENMT: moist mucous membranes RESPIRATORY: clear to auscultation, no increased respiratory effort CARDIO: Irregularly irregular rhythm mildly tachycardic GI: soft, nontender, bowel sounds present SKIN/EXTREMITIES: no rashes, no edema, no redness or tenderness NEURO: Awake and alert conversant oriented to self not to time and place Const: General: comfortable and no acute distress Other: , female, elderly, ill-appearing, obese body habitus HENMT: Face/Nose/Sinus: Normal nares present Mouth: Yes moist mucous membranes and Yes dry mucous membranes Eyes: General: appearance normal, both eyes and all related structures Sclera: sclerae normal Pupils: Equal, round and reactive pupils present EOM: EOMs intact bilaterally Resp: Effort & Inspection: normal respiratory effort Auscultation: clear to auscultation bilaterally Other: Nasal cannula in place place and tolerating well. Cardio: Rate: tachycardic Rhythm: abnormal rhythm (Consistent with AFib) Other: + murmur GI: Other: Abdomen soft, nondistended, nontender. Normoactive bowel sounds in all quadrants. Skin: General skin exam: normal color and no rashes or lesions noted Wounds: no wounds Neuro: Cranial nerves: Yes Equal, round and reactive pupils present Other: A&O to self, all that she would answer for me. Moving all extremities. PERRLA. Unable to follow commands, appears to be due to uncooperation. Extrem: Other: Lower extremities very firm bilaterally extending from the feet to the upper thighs, not sure would call it edema, not tender today. DP pulses 2+ bilaterally. Psych: Other: OPAL, pt uncooperative with answering questions Objective Data Vital Signs Vital Signs: Vital Signs - 24 hr 08/08/25 16:00 08/08/25 16:00 08/08/25 20:00 Temperature 98 F 97.1 F L Pulse Rate 103 H 88 64 Respiratory Rate 16 18 Blood Pressure 98/51 L 112/74 Pulse Oximetry 89 L 93 Oxygen Delivery 08/08/25 20:00 08/08/25 20:00 08/08/25 20:33 Temperature Pulse Rate 104 H 102 H Respiratory Rate Blood Pressure Pulse Oximetry Oxygen Delivery Room Air 08/09/25 00:00 08/09/25 00:00 08/09/25 04:00 Temperature 97.8 F Pulse Rate 109 H 96 108 H Respiratory Rate 18 Blood Pressure 118/62 Pulse Oximetry 100 Oxygen Delivery 08/09/25 04:00 08/09/25 06:17 08/09/25 08:05 Temperature 97.3 F L 97.9 F 100.0 F H Pulse Rate 110 H 105 H 112 H Respiratory Rate 18 18 16 Blood Pressure 99/41 L 106/37 L 98/58 L Pulse Oximetry 98 90 94 Oxygen Delivery 08/09/25 08:18 08/09/25 08:30 08/09/25 08:45 Temperature Pulse Rate 80 62 88 Respiratory Rate Blood Pressure 93/62 L 100/60 82/45 L Pulse Oximetry Oxygen Delivery 08/09/25 09:00 08/09/25 09:15 08/09/25 09:30 Temperature Pulse Rate 63 66 60 Respiratory Rate Blood Pressure 102/47 L 121/98 H 117/100 H Pulse Oximetry Oxygen Delivery 08/09/25 09:45 08/09/25 10:00 08/09/25 10:15 Temperature Pulse Rate 76 76 80 Respiratory Rate Blood Pressure 89/47 L 65/40 L 87/50 L Pulse Oximetry Oxygen Delivery 08/09/25 10:30 08/09/25 10:45 08/09/25 11:00 Temperature Pulse Rate 86 122 H 118 H Respiratory Rate Blood Pressure 92/44 L 104/52 L 102/54 L Pulse Oximetry Oxygen Delivery 08/09/25 11:15 08/09/25 11:30 08/09/25 11:47 Temperature Pulse Rate 113 H 122 H 100 Respiratory Rate Blood Pressure 92/56 L 86/37 L 124/56 L Pulse Oximetry Oxygen Delivery 08/09/25 11:53 08/09/25 12:17 08/09/25 12:34 Temperature 100.2 F H 98.4 F Pulse Rate 90 119 H 130 H Respiratory Rate 16 24 H Blood Pressure 81/51 L 99/57 L Pulse Oximetry 94 96 Oxygen Delivery Intake/Output Intake/Output: Intake & Output 08/06/25 08/07/25 08/08/25 08/09/25 23:59 23:59 23:59 23:59 Intake Total 522 176 6049 Output Total 6055 5146 Balance 630 -9139 1170 1263 Meds/Results Medications: Active Medications Generic Name Dose Route Start Last Admin Trade Name Freq PRN Reason Stop Dose Admin Acetaminophen 650 mg 07/29/25 15:59 08/08/25 20:41 Acetaminophen 325 Mg Tablet PO 650 mg Q4H PRN Administration Mild Pain (1-3) or Fever Acetaminophen 650 mg 07/29/25 17:04 Acetaminophen 650 Mg Suppository RECTAL Q6H PRN Mild Pain (1-3) or Fever Albuterol/Ipratropium 3 ml 07/29/25 19:52 Ipratropium 0.5 Mg/Albuterol Sulfate 2.5 Mg (Base) Ampul.Neb 3 Ml INHALATION Q4HRT PRN Shortness of Breath. Apixaban 5 mg 07/30/25 09:00 08/09/25 12:35 Apixaban 5 Mg Tablet PO 5 mg BID BIANKA Administration Aripiprazole 1 mg 07/31/25 21:00 08/08/25 20:33 Aripiprazole 1 Mg Tablet PO 1 mg HS BIANKA Administration Aripiprazole 2 mg 07/31/25 21:00 08/08/25 20:34 Aripiprazole 2 Mg Tablet BY MOUTH 2 mg HS BIANKA Administration Buspirone HCl 5 mg 07/31/25 17:00 08/09/25 12:36 Buspirone Hcl 5 Mg Tablet BY MOUTH 5 mg TID BIANKA Administration Dextrose 12.5 gm 07/29/25 19:52 Dextrose 50% 25 Gm/50 Ml Syringe IV PUSH PRN PRN Hypoglycemia Protocol Docusate Sodium 200 mg 07/31/25 17:00 08/09/25 12:38 Docusate Sodium 100 Mg Capsule PO Not Given BID BIANKA Epoetin Austin-epbx 10,000 units 08/09/25 18:20 08/09/25 09:23 Epoetin [place]-Epbx 10,000 Units/Ml Vial IV PUSH 08/09/25 18:21 10,000 units ONCE ONE Administration Glucagon 1 mg 07/29/25 19:52 Glucagon For Inj 1 Mg Vial IM PRN PRN Hypoglycemia Protocol Glucose 15 gm 07/29/25 19:52 Glucose Oral Gel 15 Gm Of Glucse In 37.5 Gm Tube PO PRN PRN Hypoglycemia Protocol Dextrose 1,000 mls @ 100 mls/hr 07/29/25 19:52 Dextrose 5% 1,000 Ml IVPB PRN PRN Hypoglycemia Protocol Albumin Human 50 mls @ 999 mls/hr 07/30/25 05:49 08/05/25 09:13 Albutein IVPB 08/29/25 05:48 999 mls/hr Q10M PRN Administration HYPOTENSION Insulin Aspart 4 - 8 units 07/31/25 08:00 08/09/25 12:37 Insulin Aspart (*Bkc) 100 Units/Ml SUB-Q Not Given TIDWM [facility] Protocol Insulin Aspart 2 - 4 units 07/30/25 21:00 08/08/25 21:20 Insulin Aspart (*Bkc) 100 Units/Ml SUB-Q 2 units HS BIANKA Administration Protocol Insulin Glargine 25 units 08/09/25 08:00 08/09/25 07:51 Insulin Glargine (*Bkc) 100 Units/Ml SUB-Q 25 units DAILY@0800 BIANKA Administration Memantine 5 mg 08/09/25 09:00 08/09/25 12:36 Memantine 5 Mg Tablet PO 5 mg Q12HR BIANKA Administration Methylphenidate HCl 10 mg 08/01/25 08:00 08/09/25 12:38 Methylphenidate Hcl (*Crx) 10 Mg Tablet PO Not Given 0800,1200 [facility] Metoprolol Tartrate 25 mg 08/03/25 21:00 08/09/25 12:34 Metoprolol Tartrate 25 Mg Tablet PO 25 mg Q12HR BIANKA Administration Midodrine 10 mg 08/04/25 06:00 08/09/25 12:34 Midodrine Hcl 10 Mg Tablet PO 10 mg Q8HR BIANKA Administration Naloxone HCl 0.1 mg 07/29/25 20:26 Naloxone Hcl 0.4 Mg/Ml Vial IV PUSH Q5MIN PRN Sedation Non-Formulary Medication 30 mg 08/01/25 18:00 08/08/25 17:13 Tenapanor [Xphozah] PO 08/31/25 17:59 30 mg QPM BIANKA Administration Ondansetron HCl 4 mg 07/29/25 15:59 08/03/25 16:40 Ondansetron Inj 4 Mg/2 Ml Vial IV PUSH 4 mg Q4H PRN Administration Nausea Pantoprazole Sodium 40 mg 07/30/25 09:00 08/09/25 12:38 Pantoprazole Sodium Iv 40 Mg Vial IV PUSH 40 mg QAM BIANKA Administration Rosuvastatin Calcium 10 mg 08/01/25 09:00 08/09/25 12:36 Rosuvastatin 10 Mg Tablet PO 10 mg DAILY BIANKA Administration Sertraline HCl 50 mg 08/01/25 09:00 08/09/25 12:36 Sertraline Hcl 50 Mg Tablet PO 50 mg DAILY BIANKA Administration Sodium Chloride 20 ml 07/29/25 15:58 Central Line Flush IV PUSH PRN PRN after blood draws Radiology Results: ITS Impressions Head CT 07/29/25 17:35 Impression: 1.No acute intracranial abnormality. Chest/Abdomen/Pelvis CT 07/29/25 18:21 IMPRESSION: CHEST- 1. Mild interstitial pulmonary edema with small left pleural effusions and bibasilar atelectasis. 2. No other acute abnormality. ABDOMEN/PELVIS- 1. No acute abnormality. 2. Additional findings as above. Chest X-Ray 08/05/25 08:35 IMPRESSION: 1. Persistent right perihilar and bibasilar opacities which represent atelectasis or pneumonia. 2. Cardiomegaly with enlargement of the central pulmonary arteries consistent with pulmonary arterial hypertension. Labs Labs: Laboratory Results - last 24 hr 08/08/25 08/08/25 08/09/25 17:02 20:53 04:43 WBC 10.9 H RBC 3.58 L Hgb 10.4 L Hct 34.0 L MCV 95.0 MCH 29.1 MCHC 30.6 L RDW 17.3 H Plt Count 317 MPV 10.7 H Immature Gran % (Auto) 0.6 H Neut % (Auto) 75.7 H Lymph % (Auto) 11.6 L [place] % (Auto) 10.0 H Eos % (Auto) 1.7 Baso % (Auto) 0.4 Lymph # (Auto) 1.26 [place] # (Auto) 1.1 H Eos # (Auto) 0.2 Baso # (Auto) 0.0 Abs Immat Gran (auto) 0.06 H Absolute Neuts (auto) 8.3 H Absolute Nucleated RBC 0.000 Nucleated RBC % 0.0 Sodium 133 L Potassium 4.1 Chloride 92 L Carbon Dioxide 19 L Anion Gap 22 H BUN 78 H D Creatinine 5.45 H Estim Creat Clear Calc 9 Estimated GFR 8 L Glucose 240 H POC Capillary Glucose 292 H 247 H Calcium 10.7 H Magnesium 2.1 Total Bilirubin 0.9 AST 28 ALT 20 Alkaline Phosphatase 154 H Total Protein 8.1 Albumin 4.5 08/09/25 08/09/25 07:42 12:31 WBC RBC Hgb Hct MCV MCH MCHC RDW Plt Count MPV Immature Gran % (Auto) Neut % (Auto) Lymph % (Auto) [place] % (Auto) Eos % (Auto) Baso % (Auto) Lymph # (Auto) [place] # (Auto) Eos # (Auto) Baso # (Auto) Abs Immat Gran (auto) Absolute Neuts (auto) Absolute Nucleated RBC Nucleated RBC % Sodium Potassium Chloride Carbon Dioxide Anion Gap BUN Creatinine Estim Creat Clear Calc Estimated GFR Glucose POC Capillary Glucose 255 H 192 H Calcium Magnesium Total Bilirubin AST ALT Alkaline Phosphatase Total Protein Albumin Quality VTE Prophylaxis VTE prophylaxis: pharmacologic ordered
[2025-08-09] MEDS: METOPROLOL TARTRATE INJ 5 MG/5 ML VIAL 2.5 MG IV PUSH ×2 (13:48→23:25)
[2025-08-09] MEDS: ONDANSETRON INJ 4 MG/2 ML VIAL IV PUSH (15:47)
[2025-08-09] MEDS: DOCUSATE SODIUM 100 MG CAPSULE 200 MG PO (17:35)
[2025-08-09] MEDS: INSULIN ASPART (*BKC) 100 UNITS/ML SUB-Q ×2 (17:37→23:26)
[2025-08-09] MEDS: [UNRECOGNIZED DRUG - OTHER] PO (17:41)
[2025-08-09] MEDS: TENAPANOR 30 MG PO (17:41)
--- NOTE | 2025-08-09 18:43 | ECG_ITS ---
Test Date: 2025-08-09 18:56:40 Measurements Intervals [place] Rate: 112 P: 0 AL: 0 QRS: -20 QRSD: 115 T: 64 QT: 347 QTc: 474 Interpretive Statements ATRIAL FIBRILLATION WITH RAPID VENTRICULAR RESPONSE INCOMPLETE LEFT BUNDLE BRANCH BLOCK DELAYED PRECORDIAL R/S TRANSITION LEFT VENTRICULAR HYPERTROPHY MINIMAL Q WAVES- HIGH LATERAL LEADS PEAKED T WAVES- CONSIDER HYPERKALEMIA ABNORMAL ECG Compared to ECG 08/03/2025 16:23:00 PEAKED T WAVES NOW PRESENT Electronically Signed On 08-09-2025 19:24:59 CDT by Don Flores D.O.
[2025-08-09] MEDS: INSULIN ASPART (*BKC) 100 UNITS/ML 6 UNITS SUB-Q (18:59)
--- NOTE | 2025-08-09 19:06 | PM.CCN ---
Critical Care Event Note Summary Code activated: Yes Narrative: Rapid response called for patient being hypotensive Blood pressure 73/43 Patient received dialysis today and had large amount of fluid removed 25 g of 25% albumin Give midodrine EKG AFib RVR rate of 112 2.5 IV metoprolol Critical Care Time Critical Care Time: Yes Total Critical Care Time: 43 minutes Due to a high probability of clinically significant, life threatening deterioration, the patient required my highest level of preparedness to intervene emergently and I personally spent this critical care time directly and personally managing the patient. This critical care time included obtaining a history; examining the patient; pulse oximetry; ordering and review of studies; arranging urgent treatment with development of a management plan; evaluation of patient's response to treatment; frequent reassessment; and discussions with other providers. It was exclusive of separately billable procedures and treating other patients and teaching time. Please see Assessment and Plan section and the rest of the note for further information on patient assessment and treatment. This case had a high probability of a clinically significant, sudden, or life threatening deterioration of this patient's condition which required my full and direct attention, intervention and personal management. Critical care time: 30 - 74 mins
[2025-08-09] MEDS: ALBUMIN HUMAN 25% 25 GM/100 ML 100 ML IVPB (19:29)
[2025-08-10] VITALS (14 sets, daily range): BP systolic 68–115; BP diastolic 43–74; PULSE 101–117; RESP 16–27; TEMP 36.3–36.8; O2SAT 96–100
[2025-08-10] MEDS: MIDODRINE HCL 10 MG TABLET PO ×3 (05:27→21:52)
[2025-08-10 05:28] LABS: Hematocrit 36.0 % (37.0-47.0); Hemoglobin 10.7 g/dL (12.0-15.0); Immature Granulocyte Percent A 0.6 % (0-0.5); Lymphocytes Absolute Auto 1.26 K/mm3 (0.9-3.2); Mean Corpuscular HGB Conc 29.7 g/dl (32-36); Mean Corpuscular Hemoglobin 28.7 pg (26-34); Mean Corpuscular Volume 96.5 fl (80-100); Nucleated Red Blood Cells Absolute Auto 0.000 K/mm3 (0.0-0.012); Nucleated Red Blood Cells Perc 0.0 % (0.0-0.2); Platelet Count Result 337 k/mm3 (150-375); Red Blood Count 3.73 M/mm3 (4.2-5.4); White Blood Count 18.2 K/mm3 (4.5-10.0)
[2025-08-10 05:51] LABS: Alanine Aminotransferase 21 U/L (6-35); Albumin Level 4.6 g/dL (3.5-5.1); Alkaline Phosphatase 168 U/L (38-126); Anion Gap 24 mmol/L (4-12); Aspartate Amino Transferase 42 U/L (14-36); Bilirubin,Total 1.2 mg/dL (0.2-1.3); Blood Urea Nitrogen 54 mg/dL (7-17); Calcium 11.3 mg/dL (8.4-10.2); Carbon Dioxide 24 mmol/L (22-30); Chloride 90 mmol/L (98-107); Estimated CRCL calculation 14 ml/min; Estimated Glomerular Filt Rate 12; Glucose 195 mg/dL (65-110); Magnesium 2.2 mg/dL (1.6-2.3); Potassium 3.9 mmol/L (3.4-5.0); Sodium 138 mmol/L (137-145); Total Protein 8.3 g/dL (6.3-8.2)
[2025-08-10] MEDS: DOCUSATE SODIUM 100 MG CAPSULE 200 MG PO ×2 (09:28→17:40)
[2025-08-10] MEDS: SERTRALINE HCL 50 MG TABLET PO (09:29)
[2025-08-10] MEDS: INSULIN ASPART (*BKC) 100 UNITS/ML SUB-Q ×3 (09:29→17:40)
[2025-08-10] MEDS: INSULIN GLARGINE (*BKC) 100 UNITS/ML 25 UNITS SUB-Q (09:29)
[2025-08-10] MEDS: APIXABAN 5 MG TABLET PO ×2 (09:29→17:40)
[2025-08-10] MEDS: ROSUVASTATIN 10 MG TABLET PO (09:29)
[2025-08-10] MEDS: methylPHENIDATE HCL (*CRX) 10 MG TABLET PO ×2 (09:37→12:01)
[2025-08-10] MEDS: PANTOPRAZOLE SODIUM IV 40 MG VIAL IV PUSH (09:37)
[2025-08-10] MEDS: MEMANTINE 5 MG TABLET PO ×2 (09:37→21:01)
--- NOTE | 2025-08-10 11:14 | P.PNIM_ITS ---
Progress Note: A&P Assessment and Plan (1) Leukocytosis: Code(s): D72.829 - Elevated white blood cell count, unspecified Status: Acute Assessment and Plan: 08/10: Increased to 18.2 from 10.9. In presence of fever and hypotensive episode 08/09, evaluate for possible infection (CXR, U/A reflex, Blood cultures). (2) Fever: Code(s): R50.9 - Fever, unspecified Status: Acute Assessment and Plan: 08/10: Evaluate for possible infectious etiology, monitor VS q 4h (3) Acute metabolic encephalopathy: Code(s): G93.41 - Metabolic encephalopathy Status: Acute Assessment and Plan: Patient presented with altered mental status/encephalopathy which could be related to uremia, infection along with hypotension -discussed with telecom analyst, who stated that patient is almost 8 L positive since at dry weight -unsure if patient has been dialyzed adequately at [facility] as well as [facility] dialysis [facility] due to low blood pressures. She was also started on midodrine at [facility] which will restart here -post dialysis patient more awake -continue to monitor electrolytes and treat underlying cause -CT brain which did not show any acute intracranial abnormality -07/31: Encephalopathy gradually improving this patient is more awake this morning, most likely related to uremia S since she had dialysis yesterday, she seems to be improving, will continue dialysis again today -08/01: Appreciate Neurology evaluation and recommendations, will add Namenda and EEG per Neurology recommendation -EEG was abnormal but neurology never saw the patient again after their first consultation. -----EEG results: 1. Mild diffuse background slowing and frontal intermittent rhythmic delta activity suggestive generalized encephalopathy or bihemispheric lesion.2. Focal slowing and sharp wave activity noted over the left temporal area. Focal slowing may raise possibility of underlying structural lesion. Sharp transients are considered nonspecific focal abnormality. However such abnormalities may be seen many elderly subjects and hence clinical and if necessary radiographic correlation may be helpful. 08/07: -A&Ox 1, seems to possibly be oriented but not answering my questions. Will try again tomorrow since pt will be staying overnight. -Pending neuro consultation post EEG -Continue Namenda 08/08: -Spoke to Dr. Coleman today. He recommends neuro outpt f/u once discharged. Per nurse, per daughter, pt is at her baseline. And would rather f/u with her established neurology team. 08/10: At baseline mental status (4) ESRD (end stage renal disease): Code(s): N18.6 - End stage renal disease Status: Chronic Assessment and Plan: End-stage renal disease on dialysis, Tuesday, Tuesday, Tuesday -after discussion with Nephrology, seems like patient has not been optimally dialyzed at [facility] and at outpatient dialysis center due to hypotension. Patient was 8-10 L positive from her dry weight -07/30: Dialyzed with 2500 mL in fluid removal, she did require Levophed and albumin during dialysis. -07/31: Dialyzed with 4000 mL in fluid removal -08/01: Dialyzed with 4000 mL in fluid removed -patient on midodrine t.i.d. -dialysis per Nephrology 08/02-dialyzed with 4000 mL and fluid removal 08/03-dialyzed with 3000 food review Per nephro, she will resume dialysis MWF -08/05 Pt recieved dialysis 08/07: Received dialysis -Neph following, plan for continued HD, labs, volume status, and clearance 08/08: Plan for dialysis tomorrow. Neph to follow. Continue labs. 08/09: Pt dialyzed today, 3.5 hr treatment performed, 1,300ml taken off. Per Dr. Schwarz, pt cleared to go home from a neph stand point. Labs in the AM, hopeful discharge tomorrow after labs result. 08/10: Hypotensive with SBP 73 after HD 08/09, temp noted 08/09 just after 8 AM (100.0) and just prior to noon (100.2). (5) Hypotension: Code(s): I95.9 - Hypotension, unspecified Status: Acute Assessment and Plan: Multifactorial, infection, 07/30: CT scan of the chest abdomen follows showed interstitial edema with small left pleural effusion. Abdomen and pelvis did not show any acute abnormality -records have been requested from [facility] -february after repeat an echocardiogram if it was not done at [facility] -continue Zosyn and vancomycin (07/29) will continue for a total of 7 days, discontinued on 08/05 -07/29: Preliminary blood cultures negative x2 -08/04-Hr 100. Resume home metoprolol 08/04/2025: Echocardiogram Summary ATRIAL FIBRILLATION WITH RAPID VENTRICULAR RESPONSE INCOMPLETE LEFT BUNDLE BRANCH BLOCK LEFT VENTRICULAR HYPERTROPHY WITH ST-T CHANGE MINIMAL Q WAVES- HIGH LATERAL LEADS BASELINE ARTIFACT- II, III, V1-V3 ABNORMAL ECG Compared to ECG 07/29/2025 12:56:03 HEART RATE HAS INCREASED 08/07: -BPs have been soft, but stable here. -Remains on midodrine therapy 08/09: -During dialysis, pts low again, 80/50's. Albumin given in dialysis per chart. Normalized now. Continue VS q4 hrs and midodrine. (6) CHF (congestive heart failure): Qualifiers: Heart failure chronicity: acute on chronic Heart failure type: unspecified Qualified Code(s): I50.9 - Heart failure, unspecified Code(s): I50.9 - Heart failure, unspecified Status: Acute Assessment and Plan: Pulmonary edema on chest x-ray, could be related to CHF likely 2/2 Fluid overloaded 2/2 inadequate dialysis Dialysis per Nephrology 07/23/2025: Echocardiogram from [facility] * left ventricle is normal in size with estimated EF of 50 - 55% * right ventricular systolic function is at the lower limit of normal * moderate to severe aortic stenosis * no evidence of aortic valve regurgitation * mild to moderate mitral and pulmonic regurgitation * no evidence of mitral stenosis * moderate tricuspid regurgitation * moderate pulmonary hypertension * mildly dilated ascending aorta 08/07: -BLE edema persistent, pt does not answer if she has SOB or CP. Will continue to assess. Continue HD and neph f/u recs 08/08: Denies SOB and CP today. BLE hard, but not sure would call them edematous. Will discuss with pt daughter Shima. 08/09: Discussed BLE with pt's daughter today, plan for outpatient f/u with established vascular team, Dr. Lamas. Fluid continues to be taken off during dialysis so unlikely related to this. Pt continues to deny CP and SOB to me, although not oriented (baseline). (7) DM type 2 (diabetes mellitus, type 2): Onset Date: ~2018 Qualifiers: Diabetes mellitus half-way insulin use: without half-way use Diabetes mellitus complication status: without complication Qualified Code(s): E11.9 - Type 2 diabetes mellitus without complications Code(s): E11.9 - Type 2 diabetes mellitus without complications Status: Chronic Assessment and Plan: Continue Accu-Cheks and sliding scale insulin 08/07: -Per med rec, pt has only been getting 10units lantus in the AMs total. Reviewed with nursing and this was confirmed. Since AM blood sugars have been elevated, will increase pt lantus from 10 units daily to 15 units. -Continue to trend sugars via CMP and POC testing 08/08: -Per RN, verified that pt home dose of lantus is 25 in the AM. Will switch her to this to start tomorrow AM due to persistent high AM sugars. 08/10: FBS 226, increased basal lantus from 25 to 30 U daily (8) Atrial fibrillation: Qualifiers: Atrial fibrillation type: permanent Qualified Code(s): I48.21 - Permanent atrial fibrillation Code(s): I48.91 - Unspecified atrial fibrillation Status: Acute Assessment and Plan: History of atrial fibrillation, continue Eliquis and metoprolol Continue on telemetry monitoring 08/09: -Called to the bedside post dialysis due to pt being in afib rvr 110-130's. Pt asymptomatic, BP 103/51 which is her baseline. Pt missed AM dose of metoprolol 25mg, given when she returned to room. Gave x1 dose of Lopressor 2.5mg IV which helped get heart rate down to 100's. Will continue to monitor. Per daughter, pt runs at this rate at her baseline. 08/10: Clinically stable rate control (9) Diarrhea: Code(s): R19.7 - Diarrhea, unspecified Status: Acute Assessment and Plan: 08/09: -Per nursing, started today. Ordered cdif to r/o. -Hx of IBS -Encourage fluid intake to prevent dehydration Plan Subjective Date/time seen: 08/10/25 11:14 Interval history: Denied pain. Chronic fatigue present. Chronically bed-bound at [facility]. Denied any fevers or chills. Denied chest pain belly pain or shortness of breath. Denied known bleeding. Review of Systems Review of Systems: All systems reviewed & are unremarkable except as noted in HPI and below Exam Narrative: HEENT: PERRL, sclerae nonicteric, pharyngeal mucosa pink and intact NECK: No JVD, adenopathy, or thyromegaly CHEST: Clear to auscultation. Normal effort HEART: NL S1/S2, irregular, 3/6 apical systolic murmur ABDOMEN: BS+, soft, nontender, no mass, no bruits EXTREMITIES: No cyanosis, edema, or clubbing NEUROLOGIC: CN intact and symmetric to inspection MUSCULOSKELETAL: Tone and strength symmetric with generalized 3/5 weakness PSYCH: Alert. Oriented to person, place, and year, but not to month Objective Data Vital Signs Vital Signs: Vital Signs - 24 hr 08/09/25 11:15 08/09/25 11:30 08/09/25 11:47 Temperature Pulse Rate 113 H 122 H 100 Respiratory Rate Blood Pressure 92/56 L 86/37 L 124/56 L Pulse Oximetry Oxygen Delivery 08/09/25 11:53 08/09/25 12:00 08/09/25 12:17 Temperature 100.2 F H 98.4 F Pulse Rate 90 108 H 119 H Respiratory Rate 16 24 H Blood Pressure 81/51 L 99/57 L Pulse Oximetry 94 96 Oxygen Delivery 08/09/25 12:34 08/09/25 13:00 08/09/25 13:30 Temperature Pulse Rate 130 H 132 H Respiratory Rate Blood Pressure 103/81 Pulse Oximetry Oxygen Delivery Room Air 08/09/25 13:48 08/09/25 14:00 08/09/25 14:23 Temperature Pulse Rate 125 H Respiratory Rate Blood Pressure 92/52 L 110/77 Pulse Oximetry Oxygen Delivery 08/09/25 16:00 08/09/25 18:25 08/09/25 18:32 Temperature 97.9 F Pulse Rate 113 H 112 H Respiratory Rate 30 H Blood Pressure 76/43 L 80/46 L Pulse Oximetry 96 Oxygen Delivery 08/09/25 18:45 08/09/25 18:59 08/09/25 20:00 Temperature Pulse Rate Respiratory Rate 24 H Blood Pressure 71/49 L 80/46 L Pulse Oximetry 96 Oxygen Delivery Room Air 08/09/25 20:00 08/09/25 20:00 08/09/25 20:21 Temperature 97.9 F Pulse Rate 108 H 104 H 114 H Respiratory Rate 16 Blood Pressure 115/63 Pulse Oximetry 100 Oxygen Delivery 08/09/25 23:25 08/10/25 00:00 08/10/25 00:00 Temperature 97.9 F Pulse Rate 114 H 104 H 110 H Respiratory Rate 16 Blood Pressure 115/63 Pulse Oximetry 100 Oxygen Delivery 08/10/25 04:00 08/10/25 04:00 08/10/25 10:36 Temperature 97.6 F 97.8 F Pulse Rate 105 H 107 H 103 H Respiratory Rate 16 22 H Blood Pressure 94/57 L 103/74 Pulse Oximetry 96 100 Oxygen Delivery Intake/Output Intake/Output: Intake & Output 08/07/25 08/08/25 08/09/25 08/10/25 23:59 23:59 23:59 23:59 Intake Total 480 1170 480 0 Output Total 2700 1269 Balance -2220 1170 -789 0 Meds/Results Medications: Active Medications Generic Name Dose Route Start Last Admin Trade Name Freq PRN Reason Stop Dose Admin Acetaminophen 650 mg 07/29/25 15:59 08/08/25 20:41 Acetaminophen 325 Mg Tablet PO 650 mg Q4H PRN Administration Mild Pain (1-3) or Fever Acetaminophen 650 mg 07/29/25 17:04 Acetaminophen 650 Mg Suppository RECTAL Q6H PRN Mild Pain (1-3) or Fever Albuterol/Ipratropium 3 ml 07/29/25 19:52 Ipratropium 0.5 Mg/Albuterol Sulfate 2.5 Mg (Base) Ampul.Neb 3 Ml INHALATION Q4HRT PRN Shortness of Breath. Apixaban 5 mg 07/30/25 09:00 08/10/25 09:29 Apixaban 5 Mg Tablet PO 5 mg BID BIANKA Administration Aripiprazole 1 mg 07/31/25 21:00 08/09/25 20:21 Aripiprazole 1 Mg Tablet PO 1 mg HS BIANKA Administration Aripiprazole 2 mg 07/31/25 21:00 08/09/25 20:21 Aripiprazole 2 Mg Tablet BY MOUTH 2 mg HS BIANKA Administration Buspirone HCl 5 mg 07/31/25 17:00 08/10/25 09:28 Buspirone Hcl 5 Mg Tablet BY MOUTH 5 mg TID BIANKA Administration Dextrose 12.5 gm 07/29/25 19:52 Dextrose 50% 25 Gm/50 Ml Syringe IV PUSH PRN PRN Hypoglycemia Protocol Docusate Sodium 200 mg 07/31/25 17:00 08/10/25 09:28 Docusate Sodium 100 Mg Capsule PO 200 mg BID BIANKA Administration Glucagon 1 mg 07/29/25 19:52 Glucagon For Inj 1 Mg Vial IM PRN PRN Hypoglycemia Protocol Glucose 15 gm 07/29/25 19:52 Glucose Oral Gel 15 Gm Of Glucse In 37.5 Gm Tube PO PRN PRN Hypoglycemia Protocol Dextrose 1,000 mls @ 100 mls/hr 07/29/25 19:52 Dextrose 5% 1,000 Ml IVPB PRN PRN Hypoglycemia Protocol Albumin Human 50 mls @ 999 mls/hr 07/30/25 05:49 08/05/25 09:13 Albutein IVPB 08/29/25 05:48 999 mls/hr Q10M PRN Administration HYPOTENSION Insulin Aspart 4 - 8 units 07/31/25 08:00 08/10/25 09:29 Insulin Aspart (*Bkc) 100 Units/Ml SUB-Q 4 units TIDWM BIANKA Administration Protocol Insulin Aspart 2 - 4 units 07/30/25 21:00 08/09/25 23:26 Insulin Aspart (*Bkc) 100 Units/Ml SUB-Q 2 units HS BIANKA Administration Protocol Insulin Glargine 25 units 08/09/25 08:00 08/10/25 09:29 Insulin Glargine (*Bkc) 100 Units/Ml SUB-Q 25 units DAILY@0800 BIANKA Administration Memantine 5 mg 08/09/25 09:00 08/10/25 09:37 Memantine 5 Mg Tablet PO 5 mg Q12HR BIANKA Administration Methylphenidate HCl 10 mg 08/01/25 08:00 08/10/25 09:37 Methylphenidate Hcl (*Crx) 10 Mg Tablet PO 10 mg 0800,1200 BIANKA Administration Metoprolol Tartrate 25 mg 08/03/25 21:00 08/10/25 09:54 Metoprolol Tartrate 25 Mg Tablet PO Not Given Q12HR BIANKA Midodrine 10 mg 08/04/25 06:00 08/10/25 05:27 Midodrine Hcl 10 Mg Tablet PO 10 mg Q8HR BIANKA Administration Miscellaneous Information 1 each 08/10/25 00:01 Please Renew Methyphnidate. Per [employer] Procedure, It Will Discontinue If Not Renewed. XX 09/09/25 00:00 CLARIFY BIANKA Naloxone HCl 0.1 mg 07/29/25 20:26 Naloxone Hcl 0.4 Mg/Ml Vial IV PUSH Q5MIN PRN Sedation Non-Formulary Medication 30 mg 08/01/25 18:00 08/09/25 17:41 Tenapanor [Xphozah] PO 08/31/25 17:59 30 mg QPM BIANKA Administration Ondansetron HCl 4 mg 07/29/25 15:59 08/09/25 15:47 Ondansetron Inj 4 Mg/2 Ml Vial IV PUSH 4 mg Q4H PRN Administration Nausea Pantoprazole Sodium 40 mg 07/30/25 09:00 08/10/25 09:37 Pantoprazole Sodium Iv 40 Mg Vial IV PUSH 40 mg QAM BIANKA Administration Rosuvastatin Calcium 10 mg 08/01/25 09:00 08/10/25 09:29 Rosuvastatin 10 Mg Tablet PO 10 mg DAILY BIANKA Administration Sertraline HCl 50 mg 08/01/25 09:00 08/10/25 09:29 Sertraline Hcl 50 Mg Tablet PO 50 mg DAILY BIANKA Administration Sodium Chloride 20 ml 07/29/25 15:58 Central Line Flush IV PUSH PRN PRN after blood draws Radiology Results: ITS Impressions Head CT 07/29/25 17:35 Impression: 1.No acute intracranial abnormality. Chest/Abdomen/Pelvis CT 07/29/25 18:21 IMPRESSION: CHEST- 1. Mild interstitial pulmonary edema with small left pleural effusions and bibasilar atelectasis. 2. No other acute abnormality. ABDOMEN/PELVIS- 1. No acute abnormality. 2. Additional findings as above. Chest X-Ray 08/05/25 08:35 IMPRESSION: 1. Persistent right perihilar and bibasilar opacities which represent atelectasis or pneumonia. 2. Cardiomegaly with enlargement of the central pulmonary arteries consistent with pulmonary arterial hypertension. Labs Labs: Laboratory Results - last 24 hr 08/09/25 08/09/25 08/09/25 12:31 17:04 18:40 WBC RBC Hgb Hct MCV MCH MCHC RDW Plt Count MPV Immature Gran % (Auto) Neut % (Auto) Lymph % (Auto) Davidson % (Auto) Eos % (Auto) Baso % (Auto) Lymph # (Auto) Davidson # (Auto) Eos # (Auto) Baso # (Auto) Abs Immat Gran (auto) Absolute Neuts (auto) Absolute Nucleated RBC Nucleated RBC % Sodium Potassium Chloride Carbon Dioxide Anion Gap BUN Creatinine Estim Creat Clear Calc Estimated GFR Glucose POC Capillary Glucose 192 H 228 H 269 H Calcium Magnesium Total Bilirubin AST ALT Alkaline Phosphatase Total Protein Albumin 08/09/25 08/10/25 08/10/25 22:50 04:56 08:46 WBC 18.2 H RBC 3.73 L Hgb 10.7 L Hct 36.0 L MCV 96.5 MCH 28.7 MCHC 29.7 L RDW 17.8 H Plt Count 337 MPV 10.4 Immature Gran % (Auto) 0.6 H Neut % (Auto) 84.1 H Lymph % (Auto) 6.9 L Davidson % (Auto) 8.0 Eos % (Auto) 0.1 Baso % (Auto) 0.3 Lymph # (Auto) 1.26 Davidson # (Auto) 1.5 H Eos # (Auto) 0.0 Baso # (Auto) 0.1 Abs Immat Gran (auto) 0.11 H Absolute Neuts (auto) 15.3 H Absolute Nucleated RBC 0.000 Nucleated RBC % 0.0 Sodium 138 Potassium 3.9 Chloride 90 L Carbon Dioxide 24 Anion Gap 24 H BUN 54 H D Creatinine 3.60 H Estim Creat Clear Calc 14 Estimated GFR 12 L Glucose 195 H POC Capillary Glucose 217 H 226 H Calcium 11.3 H Magnesium 2.2 Total Bilirubin 1.2 AST 42 H ALT 21 Alkaline Phosphatase 168 H Total Protein 8.3 H Albumin 4.6
--- NOTE | 2025-08-10 12:30 | P.PNNP_ITS ---
Progress Note: A&P Assessment and Plan (1) ESRD (end stage renal disease): Code(s): N18.6 - End stage renal disease Status: Chronic Assessment and Plan: * HD today * resume Tue/Tue/Tuesday dialysis schedule this week * follow electrolytes, volume status, and clearance * high calcium likely related to not getting Sensipar here * will transition to [facility] with outpatient dialysis treatments (2) Hypotension: Code(s): I95.9 - Hypotension, unspecified Status: Acute Assessment and Plan: * acute on chronic * recent and previous echocardiograms noted * baseline systolic BP runs in the 90s for the last month * recently started on midodrine therapy from recent [facility] admission * recent low grade fevers and elevated WBC concerning for new infection..... * work-up initiated (CXR, blood/urine cultures, empiric antibiotics) * remains on midodrine therapy (3) AMS (altered mental status): Qualifiers: Altered mental status type: transient alteration of awareness Qualified Code(s): R40.4 - Transient alteration of awareness Code(s): R41.82 - Altered mental status, unspecified Status: Acute Assessment and Plan: * improvement noted * despite underlying dementia, usually alert and oriented x 3 (although not consistently) * head CT negative * due to hypotension versus infection (i.e. pneumonia?) * Neurology following * EEG results noted * continue supportive therapy (4) Acute hypoxic respiratory failure: Code(s): J96.01 - Acute respiratory failure with hypoxia Status: Acute Assessment and Plan: * slowly improving * as noted since admission * presumably due to volume overload (CHF + pulmonary edema) and recent pneumonia * admission imaging noted * fluid removal challenging in the context of hypotension (presumably a problem during recent hospitalization at [facility] as well) * ongoing fluid removal with HD/DUF * recent CXR noted * off supplemental oxygen (5) Urinary tract infection: Qualifiers: Hematuria presence: without hematuria Urinary tract infection type: a cute cystitis Qualified Code(s): N30.00 - Acute cystitis without hematuria Code(s): N39.0 - Urinary tract infection, site not specified Status: Acute Assessment and Plan: * admission UA suggestive * follow culture data -- however, no urine culture done * completed course of antibiotics (6) Volume overload: Code(s): E87.70 - Fluid overload, unspecified Status: Acute Assessment and Plan: * as suggested by evidence to date: * imaging with CHF findings and pulmonary edema * ~ 8kg above dry weight per outpatient dialysis clinic when seen on 07/29 * aggressive fluid removal with HD and DUF as tolerated by hemodynamics * Echo from admission to [facility] noted (07/23/25): * left ventricle is normal in size with estimated EF of 50 - 55% * right ventricular systolic function is at the lower limit of normal * moderate to severe aortic stenosis * no evidence of aortic valve regurgitation * mild to moderate mitral and pulmonic regurgitation * no evidence of mitral stenosis * moderate tricuspid regurgitation * moderate pulmonary hypertension * mildly dilated ascending aorta * almost 13L negative since admission * follow respiratory status and clinical exam (7) Anemia: Qualifiers: Anemia type: due to chronic kidney disease Chronic kidney disease stage: on chronic dialysis Qualified Code(s): N18.6 - End stage renal disease; D63.1 - Anemia in chronic kidney disease; Z99.2 - Dependence on renal dialysis Code(s): D64.9 - Anemia, unspecified Status: Chronic Assessment and Plan: * due to ESRD and acute illness * anemia studies noted: * evidence of mild iron deficiency * follow trend of H/H * Epogen with HD (8) DM type 2 (diabetes mellitus, type 2): Onset Date: ~2018 Qualifiers: Diabetes mellitus vinyl hanger insulin use: without vinyl hanger use Diabetes mellitus complication status: without complication Qualified Code(s): E11.9 - Type 2 diabetes mellitus without complications Code(s): E11.9 - Type 2 diabetes mellitus without complications Status: Chronic Assessment and Plan: * follow accu-cheks * glycemic control per hospitalist Will continue to follow. L Subjective Date/time seen: 08/10/25 12:30 Interval history: Following for end stage renal disease on hemodialysis. Tolerated dialysis yesterday but fluid removal was limited by persistent hypotension despite IV albumin and midodrine therapy; post dialysis, was noted to be in atrial fibrillation with RVR but responded to IV metoprolol; later in the evening; developed worsening hypotension in association with Afib with RVR, necessitating another dose of midodrine, IV metoprolol, and IV albumin; low grade temperatures noted overnight and earlier this morning in association with elevated WBC by AM labs Exam 2 Narrative: General: elderly but WD/WN female in NAD Heart: IRRR, normal S1 and S2; no rub Lungs: coarse breath sounds; decreased at bases Abdomen: obese but soft, nontender, nondistended, positive bowel sounds Extremities: no cyanosis or clubbing; trace edema (UEs and LEs) Skin: warm and intact Objective Data Vital Signs Vital Signs: Vital Signs Temp Pulse Resp BP Pulse Ox O2 Del Method 08/10/25 12:19 97.3 F L 103 H 27 H 76/45 L 100 08/10/25 10:36 97.8 F 103 H 22 H 103/74 100 08/10/25 09:30 Room Air 08/10/25 08:00 109 H 08/10/25 04:00 97.6 F 107 H 16 94/57 L 96 08/10/25 04:00 105 H 08/10/25 00:00 110 H 08/10/25 00:00 97.9 F 104 H 16 115/63 100 08/09/25 23:25 114 H 08/09/25 20:21 114 H 08/09/25 20:00 97.9 F 104 H 16 115/63 100 08/09/25 20:00 108 H 08/09/25 20:00 Room Air 08/09/25 18:59 80/46 L Intake/Output Intake/Output: Intake & Output 08/07/25 08/08/25 08/09/25 08/10/25 23:59 23:59 23:59 23:59 Intake Total 480 1170 480 560 Output Total 2700 1269 Balance -2220 1170 -789 560 Meds/Results Medications: Active Medications Generic Name Dose Route Start Last Admin Trade Name Freq PRN Reason Stop Dose Admin Acetaminophen 650 mg 07/29/25 15:59 08/08/25 20:41 Acetaminophen 325 Mg Tablet PO 650 mg Q4H PRN Administration Mild Pain (1-3) or Fever Acetaminophen 650 mg 07/29/25 17:04 Acetaminophen 650 Mg Suppository RECTAL Q6H PRN Mild Pain (1-3) or Fever Albuterol/Ipratropium 3 ml 07/29/25 19:52 Ipratropium 0.5 Mg/Albuterol Sulfate 2.5 Mg (Base) Ampul.Neb 3 Ml INHALATION Q4HRT PRN Shortness of Breath. Apixaban 5 mg 07/30/25 09:00 08/10/25 17:40 Apixaban 5 Mg Tablet PO 5 mg BID BIANKA Administration Aripiprazole 1 mg 07/31/25 21:00 08/09/25 20:21 Aripiprazole 1 Mg Tablet PO 1 mg HS BIANKA Administration Aripiprazole 2 mg 07/31/25 21:00 08/09/25 20:21 Aripiprazole 2 Mg Tablet BY MOUTH 2 mg HS BIANKA Administration Buspirone HCl 5 mg 07/31/25 17:00 08/10/25 17:40 Buspirone Hcl 5 Mg Tablet BY MOUTH 5 mg TID BIANKA Administration Dextrose 12.5 gm 07/29/25 19:52 Dextrose 50% 25 Gm/50 Ml Syringe IV PUSH PRN PRN Hypoglycemia Protocol Docusate Sodium 200 mg 07/31/25 17:00 08/10/25 17:40 Docusate Sodium 100 Mg Capsule PO 200 mg BID BIANKA Administration Doxycycline Hyclate 100 mg 08/10/25 21:00 Doxycycline Hyclate 100 Mg Tablet PO Q12HR BIANKA Glucagon 1 mg 07/29/25 19:52 Glucagon For Inj 1 Mg Vial IM PRN PRN Hypoglycemia Protocol Glucose 15 gm 07/29/25 19:52 Glucose Oral Gel 15 Gm Of Glucse In 37.5 Gm Tube PO PRN PRN Hypoglycemia Protocol Dextrose 1,000 mls @ 100 mls/hr 07/29/25 19:52 Dextrose 5% 1,000 Ml IVPB PRN PRN Hypoglycemia Protocol Albumin Human 50 mls @ 999 mls/hr 07/30/25 05:49 08/05/25 09:13 Albutein IVPB 08/29/25 05:48 999 mls/hr Q10M PRN Administration HYPOTENSION Ceftriaxone Sodium 1 gm/ 50 mls @ 100 mls/hr 08/10/25 17:00 08/10/25 17:41 Sodium Chloride IVPB 100 mls/hr Q24H BIANKA Administration Insulin Aspart 4 - 8 units 07/31/25 08:00 08/10/25 17:40 Insulin Aspart (*Bkc) 100 Units/Ml SUB-Q 6 units TIDWM BIANKA Administration Protocol Insulin Aspart 2 - 4 units 07/30/25 21:00 08/09/25 23:26 Insulin Aspart (*Bkc) 100 Units/Ml SUB-Q 2 units HS BIANKA Administration Protocol Insulin Glargine 30 units 08/11/25 08:00 Insulin Glargine (*Bkc) 100 Units/Ml SUB-Q DAILY@0800 BIANKA Memantine 5 mg 08/09/25 09:00 08/10/25 09:37 Memantine 5 Mg Tablet PO 5 mg Q12HR BIANKA Administration Methylphenidate HCl 10 mg 08/01/25 08:00 08/10/25 12:01 Methylphenidate Hcl (*Crx) 10 Mg Tablet PO 10 mg 0800,1200 BIANKA Administration Metoprolol Tartrate 25 mg 08/03/25 21:00 08/10/25 09:54 Metoprolol Tartrate 25 Mg Tablet PO Not Given Q12HR BIANKA Midodrine 10 mg 08/04/25 06:00 08/10/25 14:06 Midodrine Hcl 10 Mg Tablet PO 10 mg Q8HR BIANKA Administration Miscellaneous Information 1 each 08/10/25 00:01 Please Renew Methyphnidate. Per [employer] Procedure, It Will Discontinue If Not Renewed. XX 09/09/25 00:00 CLARIFY BIANKA Naloxone HCl 0.1 mg 07/29/25 20:26 Naloxone Hcl 0.4 Mg/Ml Vial IV PUSH Q5MIN PRN Sedation Non-Formulary Medication 30 mg 08/01/25 18:00 08/10/25 17:55 Tenapanor [Xphozah] PO 08/31/25 17:59 30 mg QPM BIANKA Administration Ondansetron HCl 4 mg 07/29/25 15:59 08/09/25 15:47 Ondansetron Inj 4 Mg/2 Ml Vial IV PUSH 4 mg Q4H PRN Administration Nausea Pantoprazole Sodium 40 mg 07/30/25 09:00 08/10/25 09:37 Pantoprazole Sodium Iv 40 Mg Vial IV PUSH 40 mg QAM BIANKA Administration Rosuvastatin Calcium 10 mg 08/01/25 09:00 08/10/25 09:29 Rosuvastatin 10 Mg Tablet PO 10 mg DAILY BIANKA Administration Sertraline HCl 50 mg 08/01/25 09:00 08/10/25 09:29 Sertraline Hcl 50 Mg Tablet PO 50 mg DAILY BIANKA Administration Sodium Chloride 20 ml 07/29/25 15:58 Central Line Flush IV PUSH PRN PRN after blood draws Radiology Results: ITS Impressions Head CT 07/29/25 17:35 Impression: 1.No acute intracranial abnormality. Chest/Abdomen/Pelvis CT 07/29/25 18:21 IMPRESSION: CHEST- 1. Mild interstitial pulmonary edema with small left pleural effusions and bibasilar atelectasis. 2. No other acute abnormality. ABDOMEN/PELVIS- 1. No acute abnormality. 2. Additional findings as above. Labs Labs: Laboratory Tests 08/10/25 04:56 08/10/25 04:56 Calcium 11.3 H Magnesium 2.2 Total Bilirubin 1.2 AST 42 H ALT 21 Alkaline Phosphatase 168 H Total Protein 8.3 H Albumin 4.6
[2025-08-10 14:57] LABS: Toxigenic C. Diff NEGATIVE (NEGATIVE)
[2025-08-10] MEDS: SODIUM CHLORIDE 0.9% IV 500 ML IV CONT (15:15)
[2025-08-10] MEDS: cefTRIAXone 1 GM in SODIUM CHLORIDE 0.9% IV 50 ML 100 ML IVPB (17:41)
[2025-08-10] MEDS: [UNRECOGNIZED DRUG - OTHER] PO (17:55)
[2025-08-10] MEDS: TENAPANOR 30 MG PO (17:55)
[2025-08-10] MEDS: METOPROLOL TARTRATE 25 MG TABLET PO (21:01)
[2025-08-10] MEDS: DOXYCYCLINE HYCLATE 100 MG TABLET PO (21:02)
[2025-08-10] MEDS: ALBUMIN HUMAN 25% 25 GM/100 ML 100 ML IVPB (23:28)
[2025-08-11] VITALS (13 sets, daily range): BP systolic 85–104; BP diastolic 44–54; PULSE 81–115; RESP 16–22; TEMP 36.1–36.9; O2SAT 96–100
[2025-08-11] MEDS: SODIUM CHLORIDE 0.9% IV 500 ML IV CONT (01:57)
[2025-08-11 05:10] LABS: Hematocrit 32.1 % (37.0-47.0); Hemoglobin 9.5 g/dL (12.0-15.0); Immature Granulocyte Percent A 0.6 % (0-0.5); Lymphocytes Absolute Auto 0.98 K/mm3 (0.9-3.2); Mean Corpuscular HGB Conc 29.6 g/dl (32-36); Mean Corpuscular Hemoglobin 28.8 pg (26-34); Mean Corpuscular Volume 97.3 fl (80-100); Nucleated Red Blood Cells Absolute Auto 0.000 K/mm3 (0.0-0.012); Nucleated Red Blood Cells Perc 0.0 % (0.0-0.2); Platelet Count Result 285 k/mm3 (150-375); Red Blood Count 3.30 M/mm3 (4.2-5.4); White Blood Count 15.7 K/mm3 (4.5-10.0)
[2025-08-11 05:34] LABS: Alanine Aminotransferase 16 U/L (6-35); Albumin Level 4.3 g/dL (3.5-5.1); Alkaline Phosphatase 139 U/L (38-126); Anion Gap 20 mmol/L (4-12); Aspartate Amino Transferase 31 U/L (14-36); Bilirubin,Total 0.9 mg/dL (0.2-1.3); Blood Urea Nitrogen 75 mg/dL (7-17); Calcium 10.6 mg/dL (8.4-10.2); Carbon Dioxide 23 mmol/L (22-30); Chloride 92 mmol/L (98-107); Estimated CRCL calculation 10 ml/min; Estimated Glomerular Filt Rate 9; Glucose 192 mg/dL (65-110); Magnesium 2.0 mg/dL (1.6-2.3); Potassium 3.8 mmol/L (3.4-5.0); Sodium 135 mmol/L (137-145); Total Protein 7.4 g/dL (6.3-8.2)
[2025-08-11 05:37] LABS: Anisocytosis 1+; Burr Cells 1+; Hypochromasia 1+; Ovalocytes 1+; Poikilocytosis 1+; Schistocytes None Seen
[2025-08-11] MEDS: MIDODRINE HCL 10 MG TABLET PO ×3 (06:05→21:59)
[2025-08-11] MEDS: INSULIN GLARGINE (*BKC) 100 UNITS/ML 30 UNITS SUB-Q (08:05)
[2025-08-11] MEDS: DOCUSATE SODIUM 100 MG CAPSULE 200 MG PO ×2 (08:06→16:10)
[2025-08-11] MEDS: SERTRALINE HCL 50 MG TABLET PO (08:06)
[2025-08-11] MEDS: APIXABAN 5 MG TABLET PO ×2 (08:06→16:10)
[2025-08-11] MEDS: DOXYCYCLINE HYCLATE 100 MG TABLET PO ×2 (08:06→20:28)
[2025-08-11] MEDS: ROSUVASTATIN 10 MG TABLET PO (08:06)
[2025-08-11] MEDS: MEMANTINE 5 MG TABLET PO ×2 (08:06→20:28)
[2025-08-11] MEDS: METOPROLOL TARTRATE 25 MG TABLET PO (08:06)
[2025-08-11] MEDS: PANTOPRAZOLE SODIUM IV 40 MG VIAL IV PUSH (08:07)
[2025-08-11] MEDS: INSULIN ASPART (*BKC) 100 UNITS/ML SUB-Q ×4 (08:12→21:30)
--- NOTE | 2025-08-11 08:22 | P.PNIM_ITS ---
Progress Note: A&P Assessment and Plan (1) Leukocytosis: Code(s): D72.829 - Elevated white blood cell count, unspecified Status: Acute Assessment and Plan: 08/10: Increased to 18.2 from 10.9. In presence of fever and hypotensive episode 08/09, evaluate for possible infection (CXR, U/A reflex, Blood cultures). 08/11: Decreased to 15.7 today. -CXR: Impression: CHF. Superimposed bilateral lower lobe pneumonia. The findings appear progressed compared to the previous study -Rocephin started yesterday, will continue -BC & UA pending (2) Fever: Code(s): R50.9 - Fever, unspecified Status: Acute Assessment and Plan: 08/10: Evaluate for possible infectious etiology, monitor VS q 4h 08/11: See above, has been afebrile today (3) Acute metabolic encephalopathy: Code(s): G93.41 - Metabolic encephalopathy Status: Acute Assessment and Plan: Patient presented with altered mental status/encephalopathy which could be related to uremia, infection along with hypotension -discussed with meat cutting teacher, who stated that patient is almost 8 L positive since at dry weight -unsure if patient has been dialyzed adequately at [facility] as well as [facility] dialysis [facility] due to low blood pressures. She was also started on midodrine at [facility] which will restart here -post dialysis patient more awake -continue to monitor electrolytes and treat underlying cause -CT brain which did not show any acute intracranial abnormality -07/31: Encephalopathy gradually improving this patient is more awake this morning, most likely related to uremia S since she had dialysis yesterday, she seems to be improving, will continue dialysis again today -08/01: Appreciate Neurology evaluation and recommendations, will add Namenda and EEG per Neurology recommendation -EEG was abnormal but neurology never saw the patient again after their first consultation. -----EEG results: 1. Mild diffuse background slowing and frontal intermittent rhythmic delta activity suggestive generalized encephalopathy or bihemispheric lesion.2. Focal slowing and sharp wave activity noted over the left temporal area. Focal slowing may raise possibility of underlying structural lesion. Sharp transients are considered nonspecific focal abnormality. However such abnormalities may be seen many elderly subjects and hence clinical and if necessary radiographic correlation may be helpful. 10/15: -A&Ox 1, seems to possibly be oriented but not answering my questions. Will try again tomorrow since pt will be staying overnight. -Pending neuro consultation post EEG -Continue Namenda 08/08: -Spoke to Dr. Coleman today. He recommends neuro outpt f/u once discharged. Per nurse, per daughter, pt is at her baseline. And would rather f/u with her established neurology team. 08/10: At baseline mental status (4) ESRD (end stage renal disease): Code(s): N18.6 - End stage renal disease Status: Chronic Assessment and Plan: End-stage renal disease on dialysis, Tuesday, Tuesday, Tuesday -after discussion with Nephrology, seems like patient has not been optimally dialyzed at [facility] and at outpatient dialysis center due to hypotension. Patient was 8-10 L positive from her dry weight -07/30: Dialyzed with 2500 mL in fluid removal, she did require Levophed and albumin during dialysis. -07/31: Dialyzed with 4000 mL in fluid removal -08/01: Dialyzed with 4000 mL in fluid removed -patient on midodrine t.i.d. -dialysis per Nephrology 08/02-dialyzed with 4000 mL and fluid removal 08/03-dialyzed with 3000 food review Per nephro, she will resume dialysis MWF -08/05 Pt recieved dialysis 08/07: Received dialysis -Neph following, plan for continued HD, labs, volume status, and clearance 08/08: Plan for dialysis tomorrow. Neph to follow. Continue labs. 08/09: Pt dialyzed today, 3.5 hr treatment performed, 1,300ml taken off. Per Dr. Schwarz, pt cleared to go home from a neph stand point. Labs in the AM, hopeful discharge tomorrow after labs result. 08/10: Hypotensive with SBP 73 after HD 08/09, temp noted 08/09 just after 8 AM (100.0) and just prior to noon (100.2). 08/11: HD planned for tomorrow. Pt BP still on the low end, midodrine continues to be given. x1 episode today at 85/45, this was right before Midodrine was given. Stable since. (5) Hypotension: Code(s): I95.9 - Hypotension, unspecified Status: Acute Assessment and Plan: Multifactorial, infection, 07/30: CT scan of the chest abdomen follows showed interstitial edema with small left pleural effusion. Abdomen and pelvis did not show any acute abnormality -records have been requested from [facility] -may after repeat an echocardiogram if it was not done at [facility] -continue Zosyn and vancomycin (07/29) will continue for a total of 7 days, discontinued on 08/05 -07/29: Preliminary blood cultures negative x2 -08/04-Hr 100. Resume home metoprolol 08/04/2025: Echocardiogram Summary ATRIAL FIBRILLATION WITH RAPID VENTRICULAR RESPONSE INCOMPLETE LEFT BUNDLE BRANCH BLOCK LEFT VENTRICULAR HYPERTROPHY WITH ST-T CHANGE MINIMAL Q WAVES- HIGH LATERAL LEADS BASELINE ARTIFACT- II, III, V1-V3 ABNORMAL ECG Compared to ECG 07/29/2025 12:56:03 HEART RATE HAS INCREASED 08/07: -BPs have been soft, but stable here. -Remains on midodrine therapy 08/09: -During dialysis, pts low again, 80/50's. Albumin given in dialysis per chart. Normalized now. Continue VS q4 hrs and midodrine. 08/11: -Continue to monitor BP, pt dx with PNA, may be contributing. Pt BP still on the low end, midodrine continues to be given. x1 episode today at 85/45, this was right before Midodrine was given. Stable since. (6) CHF (congestive heart failure): Qualifiers: Heart failure chronicity: acute on chronic Heart failure type: unspecified Qualified Code(s): I50.9 - Heart failure, unspecified Code(s): I50.9 - Heart failure, unspecified Status: Acute Assessment and Plan: Pulmonary edema on chest x-ray, could be related to CHF likely 2/2 Fluid overloaded 2/2 inadequate dialysis Dialysis per Nephrology 07/23/2025: Echocardiogram from [facility] * left ventricle is normal in size with estimated EF of 50 - 55% * right ventricular systolic function is at the lower limit of normal * moderate to severe aortic stenosis * no evidence of aortic valve regurgitation * mild to moderate mitral and pulmonic regurgitation * no evidence of mitral stenosis * moderate tricuspid regurgitation * moderate pulmonary hypertension * mildly dilated ascending aorta 08/07: -BLE edema persistent, pt does not answer if she has SOB or CP. Will continue to assess. Continue HD and neph f/u recs 08/08: Denies SOB and CP today. BLE hard, but not sure would call them edematous. Will discuss with pt daughter Shima. 08/09: Discussed BLE with pt's daughter today, plan for outpatient f/u with established vascular team, Dr. Lamas. Fluid continues to be taken off during dialysis so unlikely related to this. Pt continues to deny CP and SOB to me, although not oriented (baseline). 08/11: Continues to deny SOB. Continue to hold lasix due to hypotension. Continue to monitor. (7) DM type 2 (diabetes mellitus, type 2): Onset Date: ~2018 Qualifiers: Diabetes mellitus complication status: without complication Diabetes mellitus long term care administrator insulin use: without long term care administrator use Qualified Code(s): E11.9 - Type 2 diabetes mellitus without complications Code(s): E11.9 - Type 2 diabetes mellitus without complications Status: Chronic Assessment and Plan: Continue Accu-Cheks and sliding scale insulin 08/07: -Per med rec, pt has only been getting 10units lantus in the AMs total. Reviewed with nursing and this was confirmed. Since AM blood sugars have been elevated, will increase pt lantus from 10 units daily to 15 units. -Continue to trend sugars via CMP and POC testing 08/08: -Per RN, verified that pt home dose of lantus is 25 in the AM. Will switch her to this to start tomorrow AM due to persistent high AM sugars. 08/10: FBS 226, increased basal lantus from 25 to 30 U daily 08/11: FBS 192 today, starting to decrease, will continue to monitor due to poor appetite. (8) Atrial fibrillation: Qualifiers: Atrial fibrillation type: permanent Qualified Code(s): I48.21 - Pe rmanent atrial fibrillation Code(s): I48.91 - Unspecified atrial fibrillation Status: Acute Assessment and Plan: History of atrial fibrillation, continue Eliquis and metoprolol Continue on telemetry monitoring 08/09: -Called to the bedside post dialysis due to pt being in afib rvr 110-130's. Pt asymptomatic, BP 103/51 which is her baseline. Pt missed AM dose of metoprolol 25mg, given when she returned to room. Gave x1 dose of Lopressor 2.5mg IV which helped get heart rate down to 100's. Will continue to monitor. Per daughter, pt runs at this rate at her baseline. 08/10: Clinically stable rate control 08/11: TELE 90 bpm today, clinically stable rate control (9) Diarrhea: Code(s): R19.7 - Diarrhea, unspecified Status: Acute Assessment and Plan: 08/09: -Per nursing, started today. Ordered cdif to r/o. -Hx of IBS -Encourage fluid intake to prevent dehydration 08/11: Cdif negative Plan IV abx for PNA, monitor BP, trend labs Time Spent With Patient Time: 45 Subjective Date/time seen: 08/11/25 1314 Interval history: Pt daughter, Shima, at the bedside today upon my entrance. Pt with baseline orientation status as she has been for me since I have met her. Chronic fatigue present. Pt c/o leg pain today, suspect this may be due to a number of factors with most likely contributor being sedimentary in bed during stay, chronically bed-bound at care home per CC but pt daughter states this is not true. Denied chest pain, belly pain, or shortness of breath. Review of Systems Review of Systems: All systems reviewed & are unremarkable except as noted in HPI and below ROS unobtainable: Yes unobtainable due to mental status (Limited, A&O x1) Exam Const: General: comfortable and no acute distress Other: , female, elderly, ill-appearing, obese body habitus HENMT: Face/Nose/Sinus: Normal nares present Mouth: Yes moist mucous membranes and Yes dry mucous membranes Eyes: General: appearance normal, both eyes and all related structures Sclera: sclerae normal Pupils: Equal, round and reactive pupils present EOM: EOMs intact bilaterally Resp: Effort & Inspection: normal respiratory effort Auscultation: clear to auscultation bilaterally Other: Nasal cannula in place place and tolerating well, 1L Cardio: Rate: tachycardic Rhythm: abnormal rhythm (Consistent with AFib) Other: + murmur GI: Other: Abdomen soft, nondistended, nontender. Normoactive bowel sounds in all quadrants. Skin: General skin exam: normal color and no rashes or lesions noted Wounds: no wounds Neuro: Cranial nerves: Yes Equal, round and reactive pupils present Other: A&O to self, all that she would answer for me. Moving all extremities. PERRLA. Unable to follow commands, appears to be due to uncooperation. Extrem: Other: Lower extremities very firm bilaterally extending from the feet to the upper thighs, not sure would call it edema, not tender today. DP pulses 2+ bilaterally. Psych: Other: OPAL, pt uncooperative with answering questions Objective Data Vital Signs Vital Signs: Vital Signs - 24 hr 08/10/25 09:30 08/10/25 10:36 08/10/25 12:00 Temperature 97.8 F Pulse Rate 103 H 112 H Respiratory Rate 22 H Blood Pressure 103/74 Pulse Oximetry 100 Oxygen Delivery Room Air 08/10/25 13:49 08/10/25 14:35 08/10/25 14:43 Temperature 97.3 F L 97.7 F Pulse Rate 103 H 114 H 114 H Respiratory Rate 27 H 24 H Blood Pressure 76/45 L 68/43 L 72/44 L Pulse Oximetry 100 96 Oxygen Delivery 08/10/25 16:00 08/10/25 18:35 08/10/25 20:00 Temperature 97.7 F Pulse Rate 109 H 117 H 111 H Respiratory Rate 25 H Blood Pressure 91/55 L Pulse Oximetry 98 Oxygen Delivery 08/10/25 20:00 08/10/25 21:01 08/10/25 21:07 Temperature 98.2 F Pulse Rate 101 H 104 H Respiratory Rate 18 Blood Pressure 78/47 L Pulse Oximetry 100 Oxygen Delivery Room Air 08/10/25 23:13 08/11/25 00:00 08/11/25 03:12 Temperature 97.8 F Pulse Rate 108 H 107 H Respiratory Rate 22 H Blood Pressure 86/50 L 104/52 L Pulse Oximetry 97 Oxygen Delivery 08/11/25 04:00 08/11/25 04:57 08/11/25 08:02 Temperature 98.1 F 98.1 F Pulse Rate 115 H 101 H 81 Respiratory Rate 22 H 18 Blood Pressure 90/54 L 102/44 L Pulse Oximetry 100 98 Oxygen Delivery 08/11/25 08:06 Temperature Pulse Rate 81 Respiratory Rate Blood Pressure Pulse Oximetry Oxygen Delivery Intake/Output Intake/Output: Intake & Output 08/08/25 08/09/25 08/10/25 08/11/25 23:59 23:59 23:59 23:59 Intake Total 1170 480 560 200 Output Total 1269 Balance 1170 -789 560 200 Meds/Results Medications: Active Medications Generic Name Dose Route Start Last Admin Trade Name Freq PRN Reason Stop Dose Admin Acetaminophen 650 mg 07/29/25 15:59 08/08/25 20:41 Acetaminophen 325 Mg Tablet PO 650 mg Q4H PRN Administration Mild Pain (1-3) or Fever Acetaminophen 650 mg 07/29/25 17:04 Acetaminophen 650 Mg Suppository RECTAL Q6H PRN Mild Pain (1-3) or Fever Albuterol/Ipratropium 3 ml 07/29/25 19:52 Ipratropium 0.5 Mg/Albuterol Sulfate 2.5 Mg (Base) Ampul.Neb 3 Ml INHALATION Q4HRT PRN Shortness of Breath. Apixaban 5 mg 07/30/25 09:00 08/11/25 08:06 Apixaban 5 Mg Tablet PO 5 mg BID BIANKA Administration Aripiprazole 1 mg 07/31/25 21:00 08/10/25 21:01 Aripiprazole 1 Mg Tablet PO 1 mg HS BIANKA Administration Aripiprazole 2 mg 07/31/25 21:00 08/10/25 21:01 Aripiprazole 2 Mg Tablet BY MOUTH 2 mg HS BIANKA Administration Buspirone HCl 5 mg 07/31/25 17:00 08/11/25 08:06 Buspirone Hcl 5 Mg Tablet BY MOUTH 5 mg TID BIANKA Administration Dextrose 12.5 gm 07/29/25 19:52 Dextrose 50% 25 Gm/50 Ml Syringe IV PUSH PRN PRN Hypoglycemia Protocol Docusate Sodium 200 mg 07/31/25 17:00 08/11/25 08:06 Docusate Sodium 100 Mg Capsule PO 200 mg BID BIANKA Administration Doxycycline Hyclate 100 mg 08/10/25 21:00 08/11/25 08:06 Doxycycline Hyclate 100 Mg Tablet PO 100 mg Q12HR BIANKA Administration Glucagon 1 mg 07/29/25 19:52 Glucagon For Inj 1 Mg Vial IM PRN PRN Hypoglycemia Protocol Glucose 15 gm 07/29/25 19:52 Glucose Oral Gel 15 Gm Of Glucse In 37.5 Gm Tube PO PRN PRN Hypoglycemia Protocol Dextrose 1,000 mls @ 100 mls/hr 07/29/25 19:52 Dextrose 5% 1,000 Ml IVPB PRN PRN Hypoglycemia Protocol Albumin Human 50 mls @ 999 mls/hr 07/30/25 05:49 08/05/25 09:13 Albutein IVPB 08/29/25 05:48 999 mls/hr Q10M PRN Administration HYPOTENSION Ceftriaxone Sodium 1 gm/ 50 mls @ 100 mls/hr 08/10/25 17:00 08/10/25 17:41 Sodium Chloride IVPB 100 mls/hr Q24H BIANKA Administration Insulin Aspart 4 - 8 units 07/31/25 08:00 08/11/25 08:12 Insulin Aspart (*Bkc) 100 Units/Ml SUB-Q 4 units TIDWM BIANKA Administration Protocol Insulin Aspart 2 - 4 units 07/30/25 21:00 08/10/25 21:51 Insulin Aspart (*Bkc) 100 Units/Ml SUB-Q Not Given HS [facility] Protocol Insulin Glargine 30 units 08/11/25 08:00 08/11/25 08:05 Insulin Glargine (*Bkc) 100 Units/Ml SUB-Q 30 units DAILY@0800 BIANKA Administration Memantine 5 mg 08/09/25 09:00 08/11/25 08:06 Memantine 5 Mg Tablet PO 5 mg Q12HR BIANKA Administration Metoprolol Tartrate 25 mg 08/03/25 21:00 08/11/25 08:06 Metoprolol Tartrate 25 Mg Tablet PO 25 mg Q12HR BIANKA Administration Midodrine 10 mg 08/04/25 06:00 08/11/25 06:05 Midodrine Hcl 10 Mg Tablet PO 10 mg Q8HR BIANKA Administration Miscellaneous Information 1 each 08/10/25 00:01 Please Renew Methyphnidate. Per [employer] Procedure, It Will Discontinue If Not Renewed. XX 09/09/25 00:00 CLARIFY BIANKA Naloxone HCl 0.1 mg 07/29/25 20:26 Naloxone Hcl 0.4 Mg/Ml Vial IV PUSH Q5MIN PRN Sedation Non-Formulary Medication 30 mg 08/01/25 18:00 08/10/25 17:55 Tenapanor [Xphozah] PO 08/31/25 17:59 30 mg QPM BIANKA Administration Ondansetron HCl 4 mg 07/29/25 15:59 08/09/25 15:47 Ondansetron Inj 4 Mg/2 Ml Vial IV PUSH 4 mg Q4H PRN Administration Nausea Pantoprazole Sodium 40 mg 07/30/25 09:00 08/11/25 08:07 Pantoprazole Sodium Iv 40 Mg Vial IV PUSH 40 mg QAM BIANKA Administration Rosuvastatin Calcium 10 mg 08/01/25 09:00 08/11/25 08:06 Rosuvastatin 10 Mg Tablet PO 10 mg DAILY BIANKA Administration Sertraline HCl 50 mg 08/01/25 09:00 08/11/25 08:06 Sertraline Hcl 50 Mg Tablet PO 50 mg DAILY BIANKA Administration Sodium Chloride 20 ml 07/29/25 15:58 Central Line Flush IV PUSH PRN PRN after blood draws Radiology Results: ITS Impressions Head CT 07/29/25 17:35 Impression: 1.No acute intracranial abnormality. Chest/Abdomen/Pelvis CT 07/29/25 18:21 IMPRESSION: CHEST- 1. Mild interstitial pulmonary edema with small left pleural effusions and bibasilar atelectasis. 2. No other acute abnormality. ABDOMEN/PELVIS- 1. No acute abnormality. 2. Additional findings as above. Chest X-Ray 08/10/25 14:13 Impression: CHF. Superimposed bilateral lower lobe pneumonia. The findings appear progressed compared to the previous study Labs Labs: Laboratory Results - last 24 hr 08/10/25 08/10/25 08/10/25 08:46 11:37 13:49 WBC RBC Hgb Hct MCV MCH MCHC RDW Plt Count MPV Immature Gran % (Auto) Neut % (Auto) Lymph % (Auto) [place] % (Auto) Eos % (Auto) Baso % (Auto) Lymph # (Auto) [place] # (Auto) Eos # (Auto) Baso # (Auto) Abs Immat Gran (auto) Absolute Neuts (auto) Absolute Nucleated RBC Band Neutrophils % Nucleated RBC % Platelet Estimate Hypochromasia Poikilocytosis Anisocytosis Ovalocytes [place] Cells Schistocytes Sodium Potassium Chloride Carbon Dioxide Anion Gap BUN Creatinine Estim Creat Clear Calc Estimated GFR Glucose POC Capillary Glucose 226 H 310 H Calcium Magnesium Total Bilirubin AST ALT Alkaline Phosphatase Total Protein Albumin C. difficile (PCR) Negative 08/10/25 08/10/25 08/11/25 17:04 21:49 04:29 WBC 15.7 H RBC 3.30 L Hgb 9.5 L Hct 32.1 L MCV 97.3 MCH 28.8 MCHC 29.6 L RDW 17.4 H Plt Count 285 MPV 10.5 H Immature Gran % (Auto) 0.6 H Neut % (Auto) 85.3 H Lymph % (Auto) 6.2 L [place] % (Auto) 7.2 Eos % (Auto) 0.4 Baso % (Auto) 0.3 Lymph # (Auto) 0.98 [place] # (Auto) 1.1 H Eos # (Auto) 0.1 Baso # (Auto) 0.0 Abs Immat Gran (auto) 0.09 H Absolute Neuts (auto) 13.4 H Absolute Nucleated RBC 0.000 Band Neutrophils % Not Reportable Nucleated RBC % 0.0 Platelet Estimate Adequate Hypochromasia 1+ Poikilocytosis 1+ Anisocytosis 1+ Ovalocytes 1+ [place] Cells 1+ Schistocytes None seen Sodium 135 L Potassium 3.8 Chloride 92 L Carbon Dioxide 23 Anion Gap 20 H BUN 75 H D Creatinine 4.93 H Estim Creat Clear Calc 10 Estimated GFR 9 L Glucose 192 H POC Capillary Glucose 316 H 197 H Calcium 10.6 H Magnesium 2.0 Total Bilirubin 0.9 AST 31 ALT 16 Alkaline Phosphatase 139 H Total Protein 7.4 Albumin 4.3 C. difficile (PCR) 08/11/25 08:08 WBC RBC Hgb Hct MCV MCH MCHC RDW Plt Count MPV Immature Gran % (Auto) Neut % (Auto) Lymph % (Auto) [place] % (Auto) Eos % (Auto) Baso % (Auto) Lymph # (Auto) [place] # (Auto) Eos # (Auto) Baso # (Auto) Abs Immat Gran (auto) Absolute Neuts (auto) Absolute Nucleated RBC Band Neutrophils % Nucleated RBC % Platelet Estimate Hypochromasia Poikilocytosis Anisocytosis Ovalocytes [place] Cells Schistocytes Sodium Potassium Chloride Carbon Dioxide Anion Gap BUN Creatinine Estim Creat Clear Calc Estimated GFR Glucose POC Capillary Glucose 213 H Calcium Magnesium Total Bilirubin AST ALT Alkaline Phosphatase Total Protein Albumin C. difficile (PCR) Quality VTE Prophylaxis VTE prophylaxis: pharmacologic ordered
--- NOTE | 2025-08-11 12:02 | P.PNNP_ITS ---
Progress Note: A&P Assessment and Plan (1) ESRD (end stage renal disease): Code(s): N18.6 - End stage renal disease Status: Chronic Assessment and Plan: * HD tomorrow * resume Tue/Tue/Tuesday dialysis schedule this week * follow electrolytes, volume status, and clearance * high calcium likely related to not getting Sensipar here * will transition to [facility] [place] with outpatient dialysis treatments (2) Pneumonia: Code(s): J18.9 - Pneumonia, unspecified organism Status: Acute Assessment and Plan: * recent CXR (08/10) results noted: * CHF * Superimposed bilateral lower lobe pneumonia * findings appear progressed compared to the previous study * associated with some worsening of chronic hypotension, elevated WBC, and low grade fevers * follow culture data * on antibiotics (3) Hypotension: Code(s): I95.9 - Hypotension, unspecified Status: Acute Assessment and Plan: * acute on chronic * recent and previous echocardiograms noted * baseline systolic BP runs in the 90s for the last month * recently started on midodrine therapy from recent [facility] admission * recent low grade fevers and elevated WBC concerning for new infection..... * WBC better today * CXR with bilateral lower lobe antibiotics * culture data * on antibiotics * remains on midodrine therapy (4) Atrial fibrillation: Qualifiers: Atrial fibrillation type: permanent Qualified Code(s): I48.21 - Permanent atrial fibrillation Code(s): I48.91 - Unspecified atrial fibrillation Status: Acute Assessment and Plan: * known history * rate control strategy * metoprolol use complicated by chronic hypotension * already on anticoagulation (5) AMS (altered mental status): Qualifiers: Altered mental status type: transient alteration of awareness Qualified Code(s): R40.4 - Transient alteration of awareness Code(s): R41.82 - Altered mental status, unspecified Status: Acute Assessment and Plan: * improvement noted * despite underlying dementia, usually alert and oriented x 3 (although not consistently) * head CT negative * due to hypotension versus infection (i.e. pneumonia?) * Neurology following * EEG results noted * continue supportive therapy (6) Acute hypoxic respiratory failure: Code(s): J96.01 - Acute respiratory failure with hypoxia Status: Acute Assessment and Plan: * slowly improving * as noted since admission * presumably due to volume overload (CHF + pulmonary edema) and recurrent pneumonia * admission imaging noted * fluid removal challenging in the context of hypotension (presumably a problem during recent hospitalization at [facility] as well) * ongoing fluid removal with HD/DUF as tolerated * recent CXR noted * on/off supplemental oxygen (7) Urinary tract infection: Qualifiers: Hematuria presence: without hematuria Urinary tract infection type: a cute cystitis Qualified Code(s): N30.00 - Acute cystitis without hematuria Code(s): N39.0 - Urinary tract infection, site not specified Status: Acute Assessment and Plan: * admission UA suggestive * however, no urine culture done at that time * repeat UA ordered (pending) * on antibiotics (8) Volume overload: Code(s): E87.70 - Fluid overload, unspecified Status: Acute Assessment and Plan: * as suggested by evidence on admission: * imaging with CHF findings and pulmonary edema * ~ 8kg above dry weight per outpatient dialysis clinic when seen on 07/29 * aggressive fluid removal with HD and DUF as tolerated by hemodynamics * Echo from admission to [facility] noted (07/23/25): * left ventricle is normal in size with estimated EF of 50 - 55% * right ventricular systolic function is at the lower limit of normal * moderate to severe aortic stenosis * no evidence of aortic valve regurgitation * mild to moderate mitral and pulmonic regurgitation * no evidence of mitral stenosis * moderate tricuspid regurgitation * moderate pulmonary hypertension * mildly dilated ascending aorta * limited Echo done here (08/05) reviewed: * normal biventricular size and systolic function * aortic valve is trileaflet and calcified * visually appears to be mild to moderate aortic stenosis * mild mitral regurgitation * almost 13L negative since admission * despite this, CXR (08/10) still with CHF * follow respiratory status and clinical exam () Anemia: Qualifiers: Anemia type: due to chronic kidney disease Chronic kidney disease stage: on chronic dialysis Qualified Code(s): N18.6 - End stage renal disease; D63.1 - Anemia in chronic kidney disease; Z99.2 - Dependence on renal dialysis Code(s): D64.9 - Anemia, unspecified Status: Chronic Assessment and Plan: * due to ESRD and acute illness * anemia studies noted: * evidence of mild iron deficiency * follow trend of H/H * Epogen with HD (10) DM type 2 (diabetes mellitus, type 2): Qualifiers: Diabetes mellitus halfway insulin use: without manager intermediate use Diabetes mellitus complication status: without complication Qualified Code(s): E11.9 - Type 2 diabetes mellitus without complications Code(s): E11.9 - Type 2 diabetes mellitus without complications Status: Chronic Assessment and Plan: * follow accu-cheks * glycemic control per hospitalist Long and extensive discussion (> 20 minutes) with daughter regarding the acute and chronic medical issues at this time with her mother and the ongoing interventions/therapies instituted to help optimize these issues within in the limits of what can be done with aggressive medical therapy (i.e. midodrine, IV antibiotics, dialysis,...etc). She appeared to voice understanding Will continue to follow. L Subjective Date/time seen: 08/11/25 12:02 Interval history: Following for end stage renal disease on hemodialysis. Mentation seems at baseline at the time of my visit with her; infection work-up initiated yesterday due to elevated WBC in association with worsening hypotension and low grade fevers; no apparent distress noted other than noted chronic LE pain; daughter at bedside when seen and case discussed with her extensively. Exam 2 Narrative: General: elderly but WD/WN female in NAD Heart: IRRR, normal S1 and S2; no rub Lungs: coarse breath sounds; decreased at bases Abdomen: obese but soft, nontender, nondistended, positive bowel sounds Extremities: no cyanosis or clubbing; trace edema (UEs and LEs) Skin: no rash Objective Data Vital Signs Vital Signs: Vital Signs Temp Pulse Resp BP Pulse Ox O2 Del Method FiO2 08/11/25 12:00 97 F L 91 18 85/45 L 99 08/11/25 08:12 99 08/11/25 08:12 81 18 98 Room Air 28 08/11/25 08:06 81 08/11/25 08:02 98.1 F 81 18 102/44 L 98 08/11/25 04:57 98.1 F 101 H 22 H 90/54 L 100 08/11/25 04:00 115 H 08/11/25 03:12 104/52 L 08/11/25 00:00 107 H 08/10/25 23:13 97.8 F 108 H 22 H 86/50 L 97 08/10/25 21:07 98.2 F 104 H 18 78/47 L 100 08/10/25 21:01 101 H 08/10/25 20:00 Room Air 08/10/25 20:00 111 H 08/10/25 18:35 97.7 F 117 H 25 H 91/55 L 98 08/10/25 16:00 109 H Intake/Output Intake/Output: Intake & Output 08/08/25 08/09/25 08/10/25 08/11/25 23:59 23:59 23:59 23:59 Intake Total 1170 480 560 560 Output Total 1269 Balance 1170 -789 560 560 Meds/Results Medications: Active Medications Generic Name Dose Route Start Last Admin Trade Name Freq PRN Reason Stop Dose Admin Acetaminophen 650 mg 07/29/25 15:59 08/11/25 14:31 Acetaminophen 325 Mg Tablet PO 650 mg Q4H PRN Administration Mild Pain (1-3) or Fever Acetaminophen 650 mg 07/29/25 17:04 Acetaminophen 650 Mg Suppository RECTAL Q6H PRN Mild Pain (1-3) or Fever Albuterol/Ipratropium 3 ml 07/29/25 19:52 Ipratropium 0.5 Mg/Albuterol Sulfate 2.5 Mg (Base) Ampul.Neb 3 Ml INHALATION Q4HRT PRN Shortness of Breath. Apixaban 5 mg 07/30/25 09:00 08/11/25 08:06 Apixaban 5 Mg Tablet PO 5 mg BID BIANKA Administration Aripiprazole 1 mg 07/31/25 21:00 08/10/25 21:01 Aripiprazole 1 Mg Tablet PO 1 mg HS BIANKA Administration Aripiprazole 2 mg 07/31/25 21:00 08/10/25 21:01 Aripiprazole 2 Mg Tablet BY MOUTH 2 mg HS BIANKA Administration Buspirone HCl 5 mg 07/31/25 17:00 08/11/25 12:24 Buspirone Hcl 5 Mg Tablet BY MOUTH 5 mg TID BIANKA Administration Dextrose 12.5 gm 07/29/25 19:52 Dextrose 50% 25 Gm/50 Ml Syringe IV PUSH PRN PRN Hypoglycemia Protocol Docusate Sodium 200 mg 07/31/25 17:00 08/11/25 08:06 Docusate Sodium 100 Mg Capsule PO 200 mg BID BIANKA Administration Doxycycline Hyclate 100 mg 08/10/25 21:00 08/11/25 08:06 Doxycycline Hyclate 100 Mg Tablet PO 100 mg Q12HR BIANKA Administration Glucagon 1 mg 07/29/25 19:52 Glucagon For Inj 1 Mg Vial IM PRN PRN Hypoglycemia Protocol Glucose 15 gm 07/29/25 19:52 Glucose Oral Gel 15 Gm Of Glucse In 37.5 Gm Tube PO PRN PRN Hypoglycemia Protocol Dextrose 1,000 mls @ 100 mls/hr 07/29/25 19:52 Dextrose 5% 1,000 Ml IVPB PRN PRN Hypoglycemia Protocol Albumin Human 50 mls @ 999 mls/hr 07/30/25 05:49 08/05/25 09:13 Albutein IVPB 08/29/25 05:48 999 mls/hr Q10M PRN Administration HYPOTENSION Ceftriaxone Sodium 1 gm/ 50 mls @ 100 mls/hr 08/10/25 17:00 08/10/25 17:41 Sodium Chloride IVPB 100 mls/hr Q24H BIANKA Administration Insulin Aspart 4 - 8 units 07/31/25 08:00 08/11/25 12:22 Insulin Aspart (*Bkc) 100 Units/Ml SUB-Q 4 units TIDWM BIANKA Administration Protocol Insulin Aspart 2 - 4 units 07/30/25 21:00 08/10/25 21:51 Insulin Aspart (*Bkc) 100 Units/Ml SUB-Q Not Given HS BIANKA Protocol Insulin Glargine 30 units 08/11/25 08:00 08/11/25 08:05 Insulin Glargine (*Bkc) 100 Units/Ml SUB-Q 30 units DAILY@0800 BIANKA Administration Memantine 5 mg 08/09/25 09:00 08/11/25 08:06 Memantine 5 Mg Tablet PO 5 mg Q12HR BIANKA Administration Metoprolol Tartrate 25 mg 08/03/25 21:00 08/11/25 08:06 Metoprolol Tartrate 25 Mg Tablet PO 25 mg Q12HR BIANKA Administration Midodrine 10 mg 08/04/25 06:00 08/11/25 14:30 Midodrine Hcl 10 Mg Tablet PO 10 mg Q8HR BIANKA Administration Miscellaneous Information 1 each 08/10/25 00:01 Please Renew Methyphnidate. Per [employer] Procedure, It Will Discontinue If Not Renewed. XX 09/09/25 00:00 CLARIFY BIANKA Naloxone HCl 0.1 mg 07/29/25 20:26 Naloxone Hcl 0.4 Mg/Ml Vial IV PUSH Q5MIN PRN Sedation Non-Formulary Medication 30 mg 08/01/25 18:00 08/10/25 17:55 Tenapanor [Xphozah] PO 08/31/25 17:59 30 mg QPM BIANKA Administration Ondansetron HCl 4 mg 07/29/25 15:59 08/09/25 15:47 Ondansetron Inj 4 Mg/2 Ml Vial IV PUSH 4 mg Q4H PRN Administration Nausea Pantoprazole Sodium 40 mg 07/30/25 09:00 08/11/25 08:07 Pantoprazole Sodium Iv 40 Mg Vial IV PUSH 40 mg QAM BIANKA Administration Rosuvastatin Calcium 10 mg 08/01/25 09:00 08/11/25 08:06 Rosuvastatin 10 Mg Tablet PO 10 mg DAILY BIANKA Administration Sertraline HCl 50 mg 08/01/25 09:00 08/11/25 08:06 Sertraline Hcl 50 Mg Tablet PO 50 mg DAILY BIANKA Administration Sodium Chloride 20 ml 07/29/25 15:58 Central Line Flush IV PUSH PRN PRN after blood draws Radiology Results: ITS Impressions Head CT 07/29/25 17:35 Impression: 1.No acute intracranial abnormality. Chest/Abdomen/Pelvis CT 07/29/25 18:21 IMPRESSION: CHEST- 1. Mild interstitial pulmonary edema with small left pleural effusions and bibasilar atelectasis. 2. No other acute abnormality. ABDOMEN/PELVIS- 1. No acute abnormality. 2. Additional findings as above. Chest X-Ray 08/10/25 14:13 Impression: CHF. Superimposed bilateral lower lobe pneumonia. The findings appear progressed compared to the previous study Labs Labs: Laboratory Tests 08/11/25 04:29 08/11/25 04:29 Calcium 10.6 H Magnesium 2.0 Total Bilirubin 0.9 AST 31 ALT 16 Alkaline Phosphatase 139 H Total Protein 7.4 Albumin 4.3
[2025-08-11] MEDS: ACETAMINOPHEN 325 MG TABLET 650 MG PO (14:31)
[2025-08-11] MEDS: cefTRIAXone 1 GM in SODIUM CHLORIDE 0.9% IV 50 ML 100 ML IVPB (16:10)
[2025-08-11] MEDS: [UNRECOGNIZED DRUG - OTHER] PO (18:09)
[2025-08-11] MEDS: TENAPANOR 30 MG PO (18:09)
[2025-08-12] VITALS (24 sets, daily range): BP systolic 84–126; BP diastolic 39–104; PULSE 71–123; RESP 16–18; TEMP 36.5–37.6; O2SAT 92–99; BMI 35.9
[2025-08-12 05:00] LABS: Hematocrit 31.9 % (37.0-47.0); Hemoglobin 9.7 g/dL (12.0-15.0); Immature Granulocyte Percent A 0.5 % (0-0.5); Lymphocytes Absolute Auto 1.17 K/mm3 (0.9-3.2); Mean Corpuscular HGB Conc 30.4 g/dl (32-36); Mean Corpuscular Hemoglobin 28.9 pg (26-34); Mean Corpuscular Volume 94.9 fl (80-100); Nucleated Red Blood Cells Absolute Auto 0.000 K/mm3 (0.0-0.012); Nucleated Red Blood Cells Perc 0.0 % (0.0-0.2); Platelet Count Result 308 k/mm3 (150-375); Red Blood Count 3.36 M/mm3 (4.2-5.4); White Blood Count 13.4 K/mm3 (4.5-10.0)
[2025-08-12 05:34] LABS: Alanine Aminotransferase 17 U/L (6-35); Albumin Level 4.0 g/dL (3.5-5.1); Alkaline Phosphatase 148 U/L (38-126); Anion Gap 23 mmol/L (4-12); Aspartate Amino Transferase 28 U/L (14-36); Bilirubin,Total 0.8 mg/dL (0.2-1.3); Blood Urea Nitrogen 95 mg/dL (7-17); Calcium 11.0 mg/dL (8.4-10.2); Carbon Dioxide 20 mmol/L (22-30); Chloride 92 mmol/L (98-107); Estimated CRCL calculation 8 ml/min; Estimated Glomerular Filt Rate 7; Glucose 189 mg/dL (65-110); Magnesium 2.0 mg/dL (1.6-2.3); Potassium 4.3 mmol/L (3.4-5.0); Sodium 135 mmol/L (137-145); Total Protein 7.1 g/dL (6.3-8.2)
[2025-08-12] MEDS: MIDODRINE HCL 10 MG TABLET PO ×3 (05:39→22:57)
--- NOTE | 2025-08-12 07:57 | P.PNIM_ITS ---
Progress Note: A&P Assessment and Plan (1) Leukocytosis: Code(s): D72.829 - Elevated white blood cell count, unspecified Status: Acute Assessment and Plan: 08/10: Increased to 18.2 from 10.9. In presence of fever and hypotensive episode 08/09, evaluate for possible infection (CXR, U/A reflex, Blood cultures). 08/11: Decreased to 15.7 today. -CXR: Impression: CHF. Superimposed bilateral lower lobe pneumonia. The findings appear progressed compared to the previous study -Rocephin started yesterday, will continue -BC & UA pending 08/12: WBC decreased to 13.4 today, continue to trend (2) Fever: Code(s): R50.9 - Fever, unspecified Status: Acute Assessment and Plan: 08/10: Evaluate for possible infectious etiology, monitor VS q 4h 08/11: See above, has been afebrile today 08/12: Continues to be afebrile (3) Acute metabolic encephalopathy: Code(s): G93.41 - Metabolic encephalopathy Status: Acute Assessment and Plan: Patient presented with altered mental status/encephalopathy which could be related to uremia, infection along with hypotension -discussed with director of safety and security, who stated that patient is almost 8 L positive since at dry weight -unsure if patient has been dialyzed adequately at [facility] as well as [facility] dialysis Center due to low blood pressures. She was also started on midodrine at [facility] which will restart here -post dialysis patient more awake -continue to monitor electrolytes and treat underlying cause -CT brain which did not show any acute intracranial abnormality -07/31: Encephalopathy gradually improving this patient is more awake this morning, most likely related to uremia S since she had dialysis yesterday, she seems to be improving, will continue dialysis again today -08/01: Appreciate Neurology evaluation and recommendations, will add Namenda and EEG per Neurology recommendation -EEG was abnormal but neurology never saw the patient again after their first consultation. -----EEG results: 1. Mild diffuse background slowing and frontal intermittent rhythmic delta activity suggestive generalized encephalopathy or bihemispheric lesion.2. Focal slowing and sharp wave activity noted over the left temporal area. Focal slowing may raise possibility of underlying structural lesion. Sharp transients are considered nonspecific focal abnormality. However such abnormalities may be seen many elderly subjects and hence clinical and if necessary radiographic correlation may be helpful. 08/07: -A&Ox 1, seems to possibly be oriented but not answering my questions. Will try again tomorrow since pt will be staying overnight. -Pending neuro consultation post EEG -Continue Namenda 08/08: -Spoke to Dr. Coleman today. He recommends neuro outpt f/u once discharged. Per nurse, per daughter, pt is at her baseline. And would rather f/u with her established neurology team. 08/10: At baseline mental status (4) ESRD (end stage renal disease): Code(s): N18.6 - End stage renal disease Status: Chronic Assessment and Plan: End-stage renal disease on dialysis, Tuesday, Tuesday, Tuesday -after discussion with Nephrology, seems like patient has not been optimally dialyzed at [facility] and at outpatient dialysis center due to hypotension. Patient was 8-10 L positive from her dry weight -07/30: Dialyzed with 2500 mL in fluid removal, she did require Levophed and albumin during dialysis. -07/31: Dialyzed with 4000 mL in fluid removal -08/01: Dialyzed with 4000 mL in fluid removed -patient on midodrine t.i.d. -dialysis per Nephrology 08/02-dialyzed with 4000 mL and fluid removal 08/03-dialyzed with 3000 food review Per nephro, she will resume dialysis MWF -08/05 Pt recieved dialysis 08/07: Received dialysis -Neph following, plan for continued HD, labs, volume status, and clearance 08/08: Plan for dialysis tomorrow. Neph to follow. Continue labs. 08/09: Pt dialyzed today, 3.5 hr treatment performed, 1,300ml taken off. Per Dr. Schwarz, pt cleared to go home from a neph stand point. Labs in the AM, hopeful discharge tomorrow after labs result. 08/10: Hypotensive with SBP 73 after HD 08/09, temp noted 08/09 just after 8 AM (100.0) and just prior to noon (100.2). 08/11: HD planned for tomorrow. Pt BP still on the low end, midodrine continues to be given. x1 episode today at 85/45, this was right before Midodrine was given. Stable since. 08/12: HD today, successful. BP stable through treatment. (5) Hypotension: Code(s): I95.9 - Hypotension, unspecified Status: Acute Assessment and Plan: Multifactorial, infection, 07/30: CT scan of the chest abdomen follows showed interstitial edema with small left pleural effusion. Abdomen and pelvis did not show any acute abnormality -records have been requested from [facility] -may after repeat an echocardiogram if it was not done at [facility] -continue Zosyn and vancomycin (07/29) will continue for a total of 7 days, discontinued on 08/05 -07/29: Preliminary blood cultures negative x2 -08/04-Hr 100. Resume home metoprolol 08/04/2025: Echocardiogram Summary ATRIAL FIBRILLATION WITH RAPID VENTRICULAR RESPONSE INCOMPLETE LEFT BUNDLE BRANCH BLOCK LEFT VENTRICULAR HYPERTROPHY WITH ST-T CHANGE MINIMAL Q WAVES- HIGH LATERAL LEADS BASELINE ARTIFACT- II, III, V1-V3 ABNORMAL ECG Compared to ECG 07/29/2025 12:56:03 HEART RATE HAS INCREASED 08/07: -BPs have been soft, but stable here. -Remains on midodrine therapy 08/09: -During dialysis, pts low again, 80/50's. Albumin given in dialysis per chart. Normalized now. Continue VS q4 hrs and midodrine. 08/11: -Continue to monitor BP, pt dx with PNA, may be contributing. Pt BP still on the low end, midodrine continues to be given. x1 episode today at 85/45, this was right before Midodrine was given. Stable since. 08/12: -BP has been stable today, continue midodrine. (6) CHF (congestive heart failure): Qualifiers: Heart failure chronicity: acute on chronic Heart failure type: unspecified Qualified Code(s): I50.9 - Heart failure, unspecified Code(s): I50.9 - Heart failure, unspecified Status: Acute Assessment and Plan: Pulmonary edema on chest x-ray, could be related to CHF likely 2/2 Fluid overloaded 2/2 inadequate dialysis Dialysis per Nephrology 07/23/2025: Echocardiogram from [facility] * left ventricle is normal in size with estimated EF of 50 - 55% * right ventricular systolic function is at the lower limit of normal * moderate to severe aortic stenosis * no evidence of aortic valve regurgitation * mild to moderate mitral and pulmonic regurgitation * no evidence of mitral stenosis * moderate tricuspid regurgitation * moderate pulmonary hypertension * mildly dilated ascending aorta 08/07: -BLE edema persistent, pt does not answer if she has SOB or CP. Will continue to assess. Continue HD and neph f/u recs 08/08: Denies SOB and CP today. BLE hard, but not sure would call them edematous. Will discuss with pt daughter Shima. 08/09: Discussed BLE with pt's daughter today, plan for outpatient f/u with established vascular team, Dr. Lamas. Fluid continues to be taken off during dialysis so unlikely related to this. Pt continues to deny CP and SOB to me, although not oriented (baseline). 08/11: Continues to deny SOB. Continue to hold lasix due to hypotension. Continue to monitor. (7) DM type 2 (diabetes mellitus, type 2): Qualifiers: Diabetes mellitus complication status: without complication Diabetes mellitus tank terminal gauger insulin use: without tank terminal gauger use Qualified Code(s): E11.9 - Type 2 diabetes mellitus without complications Code(s): E11.9 - Type 2 diabetes mellitus without complications Status: Chronic Assessment and Plan: Continue Accu-Cheks and sliding scale insulin 08/07: -Per med rec, pt has only been getting 10units lantus in the AMs total. Reviewed with nursing and this was confirmed. Since AM blood sugars have been elevated, will increase pt lantus from 10 units daily to 15 units. -Continue to trend sugars via CMP and POC testing 08/08: -Per RN, verified that pt home dose of lantus is 25 in the AM. Will switch her to this to start tomorrow AM due to persistent high AM sugars. 08/10: FBS 226, increased basal lantus from 25 to 30 U daily 08/11: FBS 192 today, starting to decrease, will continue to monitor due to poor appetite. 08/12: FBS 189 today but then went right to HD. When returned, BS 158, will hold AM lantus dose today, to resume tomorrow. (8) Atrial fibrillation: Qualifiers: Atrial fibrillation type: permanent Qualified Code(s): I48.21 - Permanent atrial fibrillation Code(s): I48.91 - Unspecified atrial fibrillation Status: Acute Assessment and Plan: History of atrial fibrillation, continue Eliquis and metoprolol Continue on telemetry monitoring 08/09: -Called to the bedside post dialysis due to pt being in afib rvr 110-130's. Pt asymptomatic, BP 103/51 which is her baseline. Pt missed AM dose of metoprolol 25mg, given when she returned to room. Gave x1 dose of Lopressor 2.5mg IV which helped get heart rate down to 100's. Will continue to monitor. Per daughter, pt runs at this rate at her baseline. 08/10: Clinically stable rate control 08/11: TELE 90 bpm today, clinically stable rate control 08/12: TELE 119bpm today, clinically stable rate control (9) Diarrhea: Code(s): R19.7 - Diarrhea, unspecified Status: Acute Assessment and Plan: 08/09: -Per nursing, started today. Ordered cdif to r/o. -Hx of IBS -Encourage fluid intake to prevent dehydration 08/11: Cdif negative 08/12: No known episodes of diarrhea. Plan IV abx for PNA, monitor BP, trend labs Time Spent With Patient Time: 45 Subjective Date/time seen: 08/12/25 1440 Interval history: Pt just returned to her room from dialysis. Pt with same mentation, not responding to me much, which is her baseline. Pt denies any issues today, no grimaces observed other than when boosting her up in bed. Review of Systems Review of Systems: All systems reviewed & are unremarkable except as noted in HPI and below ROS unobtainable: Yes unobtainable due to mental status (Limited, A&O x1) Exam Const: General: comfortable and no acute distress Other: , female, elderly, ill-appearing, obese body habitus HENMT: Face/Nose/Sinus: Normal nares present Mouth: Yes moist mucous membranes and Yes dry mucous membranes Eyes: General: appearance normal, both eyes and all related structures Sclera: sclerae normal Pupils: Equal, round and reactive pupils present EOM: EOMs intact bilaterally Resp: Effort & Inspection: normal respiratory effort Auscultation: clear to auscultation bilaterally Other: Nasal cannula in place place and tolerating well, 1L Cardio: Rate: tachycardic Rhythm: abnormal rhythm (Consistent with AFib) Other: + murmur GI: Other: Abdomen soft, nondistended, nontender. Normoactive bowel sounds in all quadrants. Skin: General skin exam: normal color and no rashes or lesions noted Wounds: no wounds Neuro: Cranial nerves: Yes Equal, round and reactive pupils present Other: A&O to self, all that she would answer for me. Moving all extremities. PERRLA. Unable to follow commands, appears to be due to uncooperation. Extrem: Other: Lower extremities very firm bilaterally extending from the feet to the upper thighs, not sure would call it edema, not tender today. DP pulses 2+ bilaterally. Psych: Other: OPAL, pt uncooperative with answering questions Objective Data Vital Signs Vital Signs: Vital Signs - 24 hr 08/11/25 08:02 08/11/25 08:06 08/11/25 08:12 Temperature 98.1 F Pulse Rate 81 81 81 Respiratory Rate 18 18 Blood Pressure 102/44 L Pulse Oximetry 98 98 Oxygen Delivery Room Air Oxygen Flow Rate Fraction of Inspired Oxygen 28 08/11/25 08:12 08/11/25 12:00 08/11/25 14:29 Temperature 97 F L Pulse Rate 99 99 91 Respiratory Rate 18 Blood Pressure 85/45 L Pulse Oximetry 99 Oxygen Delivery Oxygen Flow Rate Fraction of Inspired Oxygen 08/11/25 16:00 08/11/25 17:22 08/11/25 20:00 Temperature Pulse Rate 99 Respiratory Rate Blood Pressure 99/54 L Pulse Oximetry 97 Oxygen Delivery Nasal Cannula Oxygen Flow Rate 2 Fraction of Inspired Oxygen 08/11/25 20:00 08/11/25 21:28 08/12/25 04:00 Temperature 98.5 F Pulse Rate 106 H 103 H 118 H Respiratory Rate 16 Blood Pressure 88/53 L Pulse Oximetry 96 Oxygen Delivery Oxygen Flow Rate Fraction of Inspired Oxygen 08/12/25 04:58 08/12/25 06:00 Temperature 99.7 F H 98.2 F Pulse Rate 116 H 123 H Respiratory Rate 18 16 Blood Pressure 124/77 116/59 L Pulse Oximetry 96 92 Oxygen Delivery Oxygen Flow Rate Fraction of Inspired Oxygen Intake/Output Intake/Output: Intake & Output 08/09/25 08/10/25 08/11/25 08/12/25 23:59 23:59 23:59 23:59 Intake Total 611 683 3002 Output Total 1269 20 Balance -768 242 0673 Meds/Results Medications: Active Medications Generic Name Dose Route Start Last Admin Trade Name Freq PRN Reason Stop Dose Admin Acetaminophen 650 mg 07/29/25 15:59 08/11/25 14:31 Acetaminophen 325 Mg Tablet PO 650 mg Q4H PRN Administration Mild Pain (1-3) or Fever Acetaminophen 650 mg 07/29/25 17:04 Acetaminophen 650 Mg Suppository RECTAL Q6H PRN Mild Pain (1-3) or Fever Albuterol/Ipratropium 3 ml 07/29/25 19:52 Ipratropium 0.5 Mg/Albuterol Sulfate 2.5 Mg (Base) Ampul.Neb 3 Ml INHALATION Q4HRT PRN Shortness of Breath. Apixaban 5 mg 07/30/25 09:00 08/11/25 16:10 Apixaban 5 Mg Tablet PO 5 mg BID BIANKA Administration Aripiprazole 1 mg 07/31/25 21:00 08/11/25 20:28 Aripiprazole 1 Mg Tablet PO 1 mg HS BIANKA Administration Aripiprazole 2 mg 07/31/25 21:00 08/11/25 20:28 Aripiprazole 2 Mg Tablet BY MOUTH 2 mg HS BIANKA Administration Buspirone HCl 5 mg 07/31/25 17:00 08/11/25 16:10 Buspirone Hcl 5 Mg Tablet BY MOUTH 5 mg TID BIANKA Administration Dextrose 12.5 gm 07/29/25 19:52 Dextrose 50% 25 Gm/50 Ml Syringe IV PUSH PRN PRN Hypoglycemia Protocol Docusate Sodium 200 mg 07/31/25 17:00 08/11/25 16:10 Docusate Sodium 100 Mg Capsule PO 200 mg BID BIANKA Administration Doxycycline Hyclate 100 mg 08/10/25 21:00 08/11/25 20:28 Doxycycline Hyclate 100 Mg Tablet PO 100 mg Q12HR BIANKA Administration Epoetin [place]-epbx 10,000 units 08/12/25 18:00 Epoetin [place]-Epbx 10,000 Units/Ml Vial IV PUSH 08/12/25 18:01 ONCE ONE Glucagon 1 mg 07/29/25 19:52 Glucagon For Inj 1 Mg Vial IM PRN PRN Hypoglycemia Protocol Glucose 15 gm 07/29/25 19:52 Glucose Oral Gel 15 Gm Of Glucse In 37.5 Gm Tube PO PRN PRN Hypoglycemia Protocol Dextrose 1,000 mls @ 100 mls/hr 07/29/25 19:52 Dextrose 5% 1,000 Ml IVPB PRN PRN Hypoglycemia Protocol Albumin Human 50 mls @ 999 mls/hr 07/30/25 05:49 08/05/25 09:13 Albutein IVPB 08/29/25 05:48 999 mls/hr Q10M PRN Administration HYPOTENSION Ceftriaxone Sodium 1 gm/ 50 mls @ 100 mls/hr 08/10/25 17:00 08/11/25 16:40 Sodium Chloride IVPB Infused Q24H BIANKA Infusion Insulin Aspart 4 - 8 units 07/31/25 08:00 08/11/25 16:43 Insulin Aspart (*Bkc) 100 Units/Ml SUB-Q 4 units TIDWM [facility] Administration Protocol Insulin Aspart 2 - 4 units 07/30/25 21:00 08/11/25 21:30 Insulin Aspart (*Bkc) 100 Units/Ml SUB-Q 2 units HS BIANKA Administration Protocol Insulin Glargine 30 units 08/11/25 08:00 08/11/25 08:05 Insulin Glargine (*Bkc) 100 Units/Ml SUB-Q 30 units DAILY@0800 BIANKA Administration Memantine 5 mg 08/09/25 09:00 08/11/25 20:28 Memantine 5 Mg Tablet PO 5 mg Q12HR BIANKA Administration Metoprolol Tartrate 25 mg 08/03/25 21:00 08/11/25 21:00 Metoprolol Tartrate 25 Mg Tablet PO Not Given Q12HR BIANKA Midodrine 10 mg 08/04/25 06:00 08/12/25 05:39 Midodrine Hcl 10 Mg Tablet PO 10 mg Q8HR BIANKA Administration Miscellaneous Information 1 each 08/10/25 00:01 Please Renew Methyphnidate. Per [employer] Procedure, It Will Discontinue If Not Renewed. XX 09/09/25 00:00 CLARIFY BIANKA Naloxone HCl 0.1 mg 07/29/25 20:26 Naloxone Hcl 0.4 Mg/Ml Vial IV PUSH Q5MIN PRN Sedation Non-Formulary Medication 30 mg 08/12/25 16:30 Tenapanor [Xphozah] PO 09/11/25 16:29 DAILY@1630 [facility] Ondansetron HCl 4 mg 07/29/25 15:59 08/09/25 15:47 Ondansetron Inj 4 Mg/2 Ml Vial IV PUSH 4 mg Q4H PRN Administration Nausea Pantoprazole Sodium 40 mg 07/30/25 09:00 08/11/25 08:07 Pantoprazole Sodium Iv 40 Mg Vial IV PUSH 40 mg QAM BIANKA Administration Phenyleph/Shark Oil/Min Oil/Petrol 1 applic 08/12/25 09:00 Phenyleph/Shark Oil/Mo/Petrol Cream 26 Gm RECTAL DAILY BIANKA Rosuvastatin Calcium 10 mg 08/01/25 09:00 08/11/25 08:06 Rosuvastatin 10 Mg Tablet PO 10 mg DAILY BIANKA Administration Sertraline HCl 50 mg 08/01/25 09:00 08/11/25 08:06 Sertraline Hcl 50 Mg Tablet PO 50 mg DAILY BIANKA Administration Sodium Chloride 20 ml 07/29/25 15:58 Central Line Flush IV PUSH PRN PRN after blood draws Radiology Results: ITS Impressions Head CT 07/29/25 17:35 Impression: 1.No acute intracranial abnormality. Chest/Abdomen/Pelvis CT 07/29/25 18:21 IMPRESSION: CHEST- 1. Mild interstitial pulmonary edema with small left pleural effusions and bibasilar atelectasis. 2. No other acute abnormality. ABDOMEN/PELVIS- 1. No acute abnormality. 2. Additional findings as above. Chest X-Ray 08/10/25 14:13 Impression: CHF. Superimposed bilateral lower lobe pneumonia. The findings appear progressed compared to the previous study Labs Labs: Laboratory Results - last 24 hr 08/11/25 08/11/25 08/11/25 08:08 12:15 16:29 WBC RBC Hgb Hct MCV MCH MCHC RDW Plt Count MPV Immature Gran % (Auto) Neut % (Auto) Lymph % (Auto) [place] % (Auto) Eos % (Auto) Baso % (Auto) Lymph # (Auto) [place] # (Auto) Eos # (Auto) Baso # (Auto) Abs Immat Gran (auto) Absolute Neuts (auto) Absolute Nucleated RBC Nucleated RBC % Sodium Potassium Chloride Carbon Dioxide Anion Gap BUN Creatinine Estim Creat Clear Calc Estimated GFR Glucose POC Capillary Glucose 213 H 241 H 241 H Calcium Magnesium Total Bilirubin AST ALT Alkaline Phosphatase Total Protein Albumin 08/11/25 08/12/25 19:56 04:52 WBC 13.4 H RBC 3.36 L Hgb 9.7 L Hct 31.9 L MCV 94.9 MCH 28.9 MCHC 30.4 L RDW 17.2 H Plt Count 308 MPV 10.2 Immature Gran % (Auto) 0.5 Neut % (Auto) 82.7 H Lymph % (Auto) 8.7 L [place] % (Auto) 6.9 Eos % (Auto) 1.0 Baso % (Auto) 0.2 Lymph # (Auto) 1.17 [place] # (Auto) 0.9 H Eos # (Auto) 0.1 Baso # (Auto) 0.0 Abs Immat Gran (auto) 0.07 H Absolute Neuts (auto) 11.1 H Absolute Nucleated RBC 0.000 Nucleated RBC % 0.0 Sodium 135 L Potassium 4.3 Chloride 92 L Carbon Dioxide 20 L Anion Gap 23 H BUN 95 H D Creatinine 6.21 H Estim Creat Clear Calc 8 Estimated GFR 7 L Glucose 189 H POC Capillary Glucose 225 H Calcium 11.0 H Magnesium 2.0 Total Bilirubin 0.8 AST 28 ALT 17 Alkaline Phosphatase 148 H Total Protein 7.1 Albumin 4.0 Quality VTE Prophylaxis VTE prophylaxis: pharmacologic ordered
[2025-08-12] MEDS: ALBUMIN HUMAN 25% 12.5 GM/50ML 50 ML IVPB (09:59)
--- NOTE | 2025-08-12 11:20 | P.PNNP_ITS ---
Progress Note: A&P Assessment and Plan (1) ESRD (end stage renal disease): Code(s): N18.6 - End stage renal disease Status: Chronic Assessment and Plan: * HD today * resume Tue/Tue/Tuesday dialysis schedule this week * follow electrolytes, volume status, and clearance * high calcium likely related to not getting Sensipar here/secondary hyperparathyroidism * will transition to [facility] with outpatient dialysis treatments (2) Pneumonia: Code(s): J18.9 - Pneumonia, unspecified organism Status: Acute Assessment and Plan: * recent CXR (08/10) results noted: * CHF * superimposed bilateral lower lobe pneumonia * findings appear progressed compared to the previous study * associated with some worsening of chronic hypotension, elevated WBC, and low grade fevers * follow culture data * on antibiotics (3) Hypotension: Code(s): I95.9 - Hypotension, unspecified Status: Acute Assessment and Plan: * acute on chronic * recent and previous echocardiograms noted * baseline systolic BP runs in the 90s for the last month * recently started on midodrine therapy from recent [facility] admission * recent low grade fevers and elevated WBC concerning for new infection..... * WBC better today * CXR with bilateral lower lobe antibiotics * culture data * on antibiotics * remains on midodrine therapy * PRN IV albumin while hospitalized (4) Atrial fibrillation: Qualifiers: Atrial fibrillation type: permanent Qualified Code(s): I48.21 - Permanent atrial fibrillation Code(s): I48.91 - Unspecified atrial fibrillation Status: Acute Assessment and Plan: * known history * rate control strategy * metoprolol use complicated by chronic hypotension * already on anticoagulation (5) AMS (altered mental status): Qualifiers: Altered mental status type: transient alteration of awareness Qualified Code(s): R40.4 - Transient alteration of awareness Code(s): R41.82 - Altered mental status, unspecified Status: Acute Assessment and Plan: * fluctuates even at baseline * despite underlying dementia, usually alert and oriented x 2 - 3 (although not consistently) * head CT negative * due to hypotension versus infection (i.e. pneumonia?) * Neurology following * EEG results noted * continue supportive therapy (6) Acute hypoxic respiratory failure: Code(s): J96.01 - Acute respiratory failure with hypoxia Status: Acute Assessment and Plan: * slowly improving * as noted since admission * presumably due to volume overload (CHF + pulmonary edema) and recurrent pneumonia * admission imaging noted * fluid removal challenging in the context of hypotension (presumably a problem during recent hospitalization at [facility] as well) * ongoing fluid removal with HD/DUF as tolerated * recent CXR noted * on/off supplemental oxygen (7) Urinary tract infection: Qualifiers: Hematuria presence: without hematuria Urinary tract infection type: a cute cystitis Qualified Code(s): N30.00 - Acute cystitis without hematuria Code(s): N39.0 - Urinary tract infection, site not specified Status: Acute Assessment and Plan: * admission UA suggestive * however, no urine culture done at that time * repeat UA ordered (pending) * on antibiotics (8) Volume overload: Code(s): E87.70 - Fluid overload, unspecified Status: Acute Assessment and Plan: * as suggested by evidence on admission: * imaging with CHF findings and pulmonary edema * ~ 8kg above dry weight per outpatient dialysis clinic when seen on 07/29 * aggressive fluid removal with HD and DUF as tolerated by hemodynamics * Echo from admission to [facility] noted (07/23/25): * left ventricle is normal in size with estimated EF of 50 - 55% * right ventricular systolic function is at the lower limit of normal * moderate to severe aortic stenosis * no evidence of aortic valve regurgitation * mild to moderate mitral and pulmonic regurgitation * no evidence of mitral stenosis * moderate tricuspid regurgitation * moderate pulmonary hypertension * mildly dilated ascending aorta * limited Echo done here (08/05) reviewed: * normal biventricular size and systolic function * aortic valve is trileaflet and calcified * visually appears to be mild to moderate aortic stenosis * mild mitral regurgitation * almost 13L negative since admission * despite this, CXR (08/10) still with CHF * follow respiratory status and clinical exam () Anemia: Qualifiers: Anemia type: due to chronic kidney disease Chronic kidney disease stage: on chronic dialysis Qualified Code(s): N18.6 - End stage renal disease; D63.1 - Anemia in chronic kidney disease; Z99.2 - Dependence on renal dialysis Code(s): D64.9 - Anemia, unspecified Status: Chronic Assessment and Plan: * due to ESRD and acute illness * anemia studies noted: * evidence of mild iron deficiency * follow trend of H/H * Epogen with HD (10) DM type 2 (diabetes mellitus, type 2): Qualifiers: Diabetes mellitus complication status: without complication Diabetes mellitus [facility] insulin use: without [facility] use Qualified Code(s): E11.9 - Type 2 diabetes mellitus without complications Code(s): E11.9 - Type 2 diabetes mellitus without complications Status: Chronic Assessment and Plan: * follow accu-cheks * glycemic control per hospitalist Will continue to follow. L Subjective Date/time seen: 08/12/25 11:20 Interval history: Following for end stage renal disease on hemodialysis. Tolerating dialysis treatment at the time of my visit (seen on HD at 11:10am); no apparent distress noted when seen; mentation appears at baseline; no other complaints elicited when questioned. Exam 2 Narrative: General: elderly but WD/WN female in NAD Heart: IRRR, normal S1 and S2; no rub Lungs: coarse breath sounds; decreased at bases Abdomen: obese but soft, nontender, nondistended, positive bowel sounds Extremities: no cyanosis or clubbing; trace edema (UEs and LEs) Skin: no nodules Objective Data Vital Signs Vital Signs: Vital Signs Temp Pulse Resp BP Pulse Ox O2 Del Method O2 Flow Rate 08/12/25 11:15 81 106/80 08/12/25 11:00 92 90/39 L 08/12/25 10:45 79 94/56 L 08/12/25 10:15 92 125/63 08/12/25 10:00 76 126/104 H 08/12/25 09:50 110 H 107/58 L 08/12/25 09:31 98.4 F 115 H 17 105/67 96 08/12/25 08:45 Room Air 08/12/25 08:00 115 H 08/12/25 06:00 98.2 F 123 H 16 116/59 L 92 08/12/25 04:58 99.7 F H 116 H 18 124/77 96 08/12/25 04:00 118 H 08/11/25 21:28 98.5 F 103 H 16 88/53 L 96 08/11/25 20:00 106 H 08/11/25 20:00 97 Nasal Cannula 2 Intake/Output Intake/Output: Intake & Output 08/09/25 08/10/25 08/11/2508/12/25 23:59 23:59 23:59 23:59 Intake Total 861 890 0131 480 Output Total 1269 20 2000 Balance -457 772 8681 -1520 Meds/Results Medications: Active Medications Generic Name Dose Route Start Last Admin Trade Name Freq PRN Reason Stop Dose Admin Acetaminophen 650 mg 07/29/25 15:59 08/11/25 14:31 Acetaminophen 325 Mg Tablet PO 650 mg Q4H PRN Administration Mild Pain (1-3) or Fever Acetaminophen 650 mg 07/29/25 17:04 Acetaminophen 650 Mg Suppository RECTAL Q6H PRN Mild Pain (1-3) or Fever Albuterol/Ipratropium 3 ml 07/29/25 19:52 Ipratropium 0.5 Mg/Albuterol Sulfate 2.5 Mg (Base) Ampul.Neb 3 Ml INHALATION Q4HRT PRN Shortness of Breath. Apixaban 5 mg 07/30/25 09:00 08/12/25 16:35 Apixaban 5 Mg Tablet PO 5 mg BID BIANKA Administration Aripiprazole 1 mg 07/31/25 21:00 08/11/25 20:28 Aripiprazole 1 Mg Tablet PO 1 mg HS BIANKA Administration Aripiprazole 2 mg 07/31/25 21:00 08/11/25 20:28 Aripiprazole 2 Mg Tablet BY MOUTH 2 mg HS BIANKA Administration Buspirone HCl 5 mg 07/31/25 17:00 08/12/25 16:35 Buspirone Hcl 5 Mg Tablet BY MOUTH 5 mg TID BIANKA Administration Dextrose 12.5 gm 07/29/25 19:52 Dextrose 50% 25 Gm/50 Ml Syringe IV PUSH PRN PRN Hypoglycemia Protocol Docusate Sodium 200 mg 07/31/25 17:00 08/12/25 16:35 Docusate Sodium 100 Mg Capsule PO 200 mg BID BIANKA Administration Doxycycline Hyclate 100 mg 08/10/25 21:00 08/12/25 13:00 Doxycycline Hyclate 100 Mg Tablet PO Not Given Q12HR BIANKA Glucagon 1 mg 07/29/25 19:52 Glucagon For Inj 1 Mg Vial IM PRN PRN Hypoglycemia Protocol Glucose 15 gm 07/29/25 19:52 Glucose Oral Gel 15 Gm Of Glucse In 37.5 Gm Tube PO PRN PRN Hypoglycemia Protocol Dextrose 1,000 mls @ 100 mls/hr 07/29/25 19:52 Dextrose 5% 1,000 Ml IVPB PRN PRN Hypoglycemia Protocol Albumin Human 50 mls @ 999 mls/hr 07/30/25 05:49 08/12/25 09:59 Albutein IVPB 08/29/25 05:48 999 mls/hr Q10M PRN Administration HYPOTENSION Ceftriaxone Sodium 1 gm/ 50 mls @ 100 mls/hr 08/10/25 17:00 08/12/25 16:37 Sodium Chloride IVPB 100 mls/hr Q24H BIANKA Administration Insulin Aspart 4 - 8 units 07/31/25 08:00 08/12/25 14:30 Insulin Aspart (*Bkc) 100 Units/Ml SUB-Q Not Given TIDWM BIANKA Protocol Insulin Aspart 2 - 4 units 07/30/25 21:00 08/11/25 21:30 Insulin Aspart (*Bkc) 100 Units/Ml SUB-Q 2 units HS BIANKA Administration Protocol Insulin Glargine 30 units 08/11/25 08:00 08/12/25 14:29 Insulin Glargine (*Bkc) 100 Units/Ml SUB-Q Not Given DAILY@0800 BIANKA Memantine 5 mg 08/09/25 09:00 08/12/25 13:00 Memantine 5 Mg Tablet PO Not Given Q12HR BIANKA Metoprolol Tartrate 25 mg 08/03/25 21:00 08/12/25 14:31 Metoprolol Tartrate 25 Mg Tablet PO Not Given Q12HR BIANKA Midodrine 10 mg 08/04/25 06:00 08/12/25 14:31 Midodrine Hcl 10 Mg Tablet PO 10 mg Q8HR BIANKA Administration Miscellaneous Information 1 each 08/10/25 00:01 Please Renew Methyphnidate. Per [employer] Procedure, It Will Discontinue If Not Renewed. XX 09/09/25 00:00 CLARIFY BIANKA Naloxone HCl 0.1 mg 07/29/25 20:26 Naloxone Hcl 0.4 Mg/Ml Vial IV PUSH Q5MIN PRN Sedation Non-Formulary Medication 30 mg 08/12/25 16:30 Tenapanor [Xphozah] PO 09/11/25 16:29 DAILY@1630 [facility] Ondansetron HCl 4 mg 07/29/25 15:59 08/09/25 15:47 Ondansetron Inj 4 Mg/2 Ml Vial IV PUSH 4 mg Q4H PRN Administration Nausea Pantoprazole Sodium 40 mg 07/30/25 09:00 08/12/25 14:31 Pantoprazole Sodium Iv 40 Mg Vial IV PUSH 40 mg QAM BIANKA Administration Phenyleph/Shark Oil/Min Oil/Petrol 1 applic 08/12/25 09:00 08/12/25 14:30 Phenyleph/Shark Oil/Mo/Petrol Cream 26 Gm RECTAL Not Given DAILY BIANKA Rosuvastatin Calcium 10 mg 08/01/25 09:00 08/12/25 14:30 Rosuvastatin 10 Mg Tablet PO 10 mg DAILY BIANKA Administration Saccharomyces Boulardii 250 mg 08/12/25 17:00 08/12/25 16:35 Saccharomyces Boulardii 250 Mg Capsule PO 250 mg BID BIANKA Administration Sertraline HCl 50 mg 08/01/25 09:00 08/12/25 14:30 Sertraline Hcl 50 Mg Tablet PO 50 mg DAILY BIANKA Administration Sodium Chloride 20 ml 07/29/25 15:58 Central Line Flush IV PUSH PRN PRN after blood draws Radiology Results: ITS Impressions Head CT 07/29/25 17:35 Impression: 1.No acute intracranial abnormality. Chest/Abdomen/Pelvis CT 07/29/25 18:21 IMPRESSION: CHEST- 1. Mild interstitial pulmonary edema with small left pleural effusions and bibasilar atelectasis. 2. No other acute abnormality. ABDOMEN/PELVIS- 1. No acute abnormality. 2. Additional findings as above. Chest X-Ray 08/10/25 14:13 Impression: CHF. Superimposed bilateral lower lobe pneumonia. The findings appear progressed compared to the previous study Labs Labs: Laboratory Tests 08/12/25 04:52 08/12/25 04:52 Calcium 11.0 H Magnesium 2.0 Total Bilirubin 0.8 AST 28 ALT 17 Alkaline Phosphatase 148 H Total Protein 7.1 Albumin 4.0
[2025-08-12] MEDS: EPOETIN ALFA-EPBX 10,000 UNITS/ML VIAL 10000 UNITS IV PUSH (12:55)
[2025-08-12] MEDS: ROSUVASTATIN 10 MG TABLET PO (14:30)
[2025-08-12] MEDS: SERTRALINE HCL 50 MG TABLET PO (14:30)
[2025-08-12] MEDS: PANTOPRAZOLE SODIUM IV 40 MG VIAL IV PUSH (14:31)
[2025-08-12] MEDS: APIXABAN 5 MG TABLET PO (16:35)
[2025-08-12] MEDS: DOCUSATE SODIUM 100 MG CAPSULE 200 MG PO (16:35)
[2025-08-12] MEDS: SACCHAROMYCES BOULARDII 250 MG CAPSULE PO (16:35)
[2025-08-12] MEDS: cefTRIAXone 1 GM in SODIUM CHLORIDE 0.9% IV 50 ML 100 ML IVPB (16:37)
[2025-08-12] MEDS: METOPROLOL TARTRATE 25 MG TABLET PO (22:50)
[2025-08-12] MEDS: DOXYCYCLINE HYCLATE 100 MG TABLET PO (22:50)
[2025-08-12] MEDS: MEMANTINE 5 MG TABLET PO (22:53)
[2025-08-12] MEDS: INSULIN ASPART (*BKC) 100 UNITS/ML SUB-Q (22:54)
[2025-08-13] VITALS (12 sets, daily range): BP systolic 80–104; BP diastolic 44–88; PULSE 93–124; RESP 15–22; TEMP 36.3–36.8; O2SAT 93–100
[2025-08-13 05:17] LABS: Hematocrit 34.4 % (37.0-47.0); Hemoglobin 10.1 g/dL (12.0-15.0); Immature Granulocyte Percent A 0.7 % (0-0.5); Lymphocytes Absolute Auto 1.00 K/mm3 (0.9-3.2); Mean Corpuscular HGB Conc 29.4 g/dl (32-36); Mean Corpuscular Hemoglobin 28.5 pg (26-34); Mean Corpuscular Volume 97.2 fl (80-100); Nucleated Red Blood Cells Absolute Auto 0.000 K/mm3 (0.0-0.012); Nucleated Red Blood Cells Perc 0.0 % (0.0-0.2); Platelet Count Result 304 k/mm3 (150-375); Red Blood Count 3.54 M/mm3 (4.2-5.4); White Blood Count 9.2 K/mm3 (4.5-10.0)
[2025-08-13 05:35] LABS: Alanine Aminotransferase 19 U/L (6-35); Albumin Level 4.1 g/dL (3.5-5.1); Alkaline Phosphatase 155 U/L (38-126); Anion Gap 18 mmol/L (4-12); Aspartate Amino Transferase 55 U/L (14-36); Bilirubin,Total 1.0 mg/dL (0.2-1.3); Blood Urea Nitrogen 47 mg/dL (7-17); Calcium 11.4 mg/dL (8.4-10.2); Carbon Dioxide 28 mmol/L (22-30); Chloride 90 mmol/L (98-107); Estimated CRCL calculation 13 ml/min; Estimated Glomerular Filt Rate 12; Glucose 235 mg/dL (65-110); Magnesium 2.0 mg/dL (1.6-2.3); Potassium 4.0 mmol/L (3.4-5.0); Sodium 136 mmol/L (137-145); Total Protein 7.7 g/dL (6.3-8.2)
[2025-08-13] MEDS: MIDODRINE HCL 10 MG TABLET PO ×3 (05:51→21:45)
[2025-08-13 05:56] LABS: Hypochromasia 1+; Schistocytes None Seen
--- NOTE | 2025-08-13 08:21 | PM.IMPN ---
Progress Note: A&P Assessment and Plan (1) Leukocytosis: Code(s): D72.829 - Elevated white blood cell count, unspecified Status: Acute Assessment and Plan: 08/10: Increased to 18.2 from 10.9. In presence of fever and hypotensive episode 08/09, evaluate for possible infection (CXR, U/A reflex, Blood cultures). 08/11: Decreased to 15.7 today. -CXR: Impression: CHF. Superimposed bilateral lower lobe pneumonia. The findings appear progressed compared to the previous study -Rocephin started yesterday, will continue -BC & UA pending 08/12: WBC decreased to 13.4 today, continue to trend 08/13: WBC WDL today. PNA likely residual from previous admission for PNA? Changing IV abx to suspension (hopefully will take better than PO) and re-assess tomorrow for hopeful discharge. (2) Fever: Code(s): R50.9 - Fever, unspecified Status: Acute Assessment and Plan: 08/10: Evaluate for possible infectious etiology, monitor VS q 4h 08/11: See above, has been afebrile today 08/12: Continues to be afebrile (3) Acute metabolic encephalopathy: Code(s): G93.41 - Metabolic encephalopathy Status: Acute Assessment and Plan: Patient presented with altered mental status/encephalopathy which could be related to uremia, infection along with hypotension -discussed with resourcing consultant, who stated that patient is almost 8 L positive since at dry weight -unsure if patient has been dialyzed adequately at [facility] as well as [facility] due to low blood pressures. She was also started on midodrine at [facility] which will restart here -post dialysis patient more awake -continue to monitor electrolytes and treat underlying cause -CT brain which did not show any acute intracranial abnormality -07/31: Encephalopathy gradually improving this patient is more awake this morning, most likely related to uremia S since she had dialysis yesterday, she seems to be improving, will continue dialysis again today -08/01: Appreciate Neurology evaluation and recommendations, will add Namenda and EEG per Neurology recommendation -EEG was abnormal but neurology never saw the patient again after their first consultation. -----EEG results: 1. Mild diffuse background slowing and frontal intermittent rhythmic delta activity suggestive generalized encephalopathy or bihemispheric lesion.2. Focal slowing and sharp wave activity noted over the left temporal area. Focal slowing may raise possibility of underlying structural lesion. Sharp transients are considered nonspecific focal abnormality. However such abnormalities may be seen many elderly subjects and hence clinical and if necessary radiographic correlation may be helpful. 08/07: -A&Ox 1, seems to possibly be oriented but not answering my questions. Will try again tomorrow since pt will be staying overnight. -Pending neuro consultation post EEG -Continue Namenda 08/08: -Spoke to Dr. Coleman today. He recommends neuro outpt f/u once discharged. Per nurse, per daughter, pt is at her baseline. And would rather f/u with her established neurology team. 08/10: At baseline mental status 08/13: Discussed need for neuro outpt f/u with daughter today. Originally had annual appt on 08/15 but rescheduled due to acute admit. Will f/u upon discharge. (4) ESRD (end stage renal disease): Code(s): N18.6 - End stage renal disease Status: Chronic Assessment and Plan: End-stage renal disease on dialysis, Tuesday, Tuesday, Tuesday -after discussion with Nephrology, seems like patient has not been optimally dialyzed at [facility] [place] and at outpatient dialysis center due to hypotension. Patient was 8-10 L positive from her dry weight -07/30: Dialyzed with 2500 mL in fluid removal, she did require Levophed and albumin during dialysis. -07/31: Dialyzed with 4000 mL in fluid removal -08/01: Dialyzed with 4000 mL in fluid removed -patient on midodrine t.i.d. -dialysis per Nephrology 08/02-dialyzed with 4000 mL and fluid removal 08/03-dialyzed with 3000 food review Per nephro, she will resume dialysis MWF -08/05 Pt recieved dialysis 08/07: Received dialysis -Neph following, plan for continued HD, labs, volume status, and clearance 08/08: Plan for dialysis tomorrow. Neph to follow. Continue labs. 08/09: Pt dialyzed today, 3.5 hr treatment performed, 1,300ml taken off. Per Dr. Schwarz, pt cleared to go home from a neph stand point. Labs in the AM, hopeful discharge tomorrow after labs result. 08/10: Hypotensive with SBP 73 after HD 08/09, temp noted 08/09 just after 8 AM (100.0) and just prior to noon (100.2). 08/11: HD planned for tomorrow. Pt BP still on the low end, midodrine continues to be given. x1 episode today at 85/45, this was right before Midodrine was given. Stable since. 08/12: HD today, successful. BP stable through treatment. 08/13: Continue HD schedule for tomorrow. Will also continue same course outpt. (5) Hypotension: Code(s): I95.9 - Hypotension, unspecified Status: Acute Assessment and Plan: Multifactorial, infection, 07/30: CT scan of the chest abdomen follows showed interstitial edema with small left pleural effusion. Abdomen and pelvis did not show any acute abnormality -records have been requested from [facility] -may after repeat an echocardiogram if it was not done at [facility] [place] -continue Zosyn and vancomycin (07/29) will continue for a total of 7 days, discontinued on 08/05 -07/29: Preliminary blood cultures negative x2 -08/04-Hr 100. Resume home metoprolol 08/04/2025: Echocardiogram Summary ATRIAL FIBRILLATION WITH RAPID VENTRICULAR RESPONSE INCOMPLETE LEFT BUNDLE BRANCH BLOCK LEFT VENTRICULAR HYPERTROPHY WITH ST-T CHANGE MINIMAL Q WAVES- HIGH LATERAL LEADS BASELINE ARTIFACT- II, III, V1-V3 ABNORMAL ECG Compared to ECG 07/29/2025 12:56:03 HEART RATE HAS INCREASED 08/07: -BPs have been soft, but stable here. -Remains on midodrine therapy 08/09: -During dialysis, pts low again, 80/50's. Albumin given in dialysis per chart. Normalized now. Continue VS q4 hrs and midodrine. 08/11: -Continue to monitor BP, pt dx with PNA, may be contributing. Pt BP still on the low end, midodrine continues to be given. x1 episode today at 85/45, this was right before Midodrine was given. Stable since. 08/12: -BP has been stable today, continue midodrine. 08/13: -BP has continued to be soft, as per baseline. Continue midodrine. (6) CHF (congestive heart failure): Qualifiers: Heart failure chronicity: acute on chronic Heart failure type: unspecified Qualified Code(s): I50.9 - Heart failure, unspecified Code(s): I50.9 - Heart failure, unspecified Status: Acute Assessment and Plan: Pulmonary edema on chest x-ray, could be related to CHF likely 2/2 Fluid overloaded 2/2 inadequate dialysis Dialysis per Nephrology 07/23/2025: Echocardiogram from [facility] [place] left ventricle is normal in size with estimated EF of 50 - 55% right ventricular systolic function is at the lower limit of normal moderate to severe aortic stenosis no evidence of aortic valve regurgitation mild to moderate mitral and pulmonic regurgitation no evidence of mitral stenosis moderate tricuspid regurgitation moderate pulmonary hypertension mildly dilated ascending aorta 08/07: -BLE edema persistent, pt does not answer if she has SOB or CP. Will continue to assess. Continue HD and neph f/u recs 08/08: Denies SOB and CP today. BLE hard, but not sure would call them edematous. Will discuss with pt daughter Shima. 08/09: Discussed BLE with pt's daughter today, plan for outpatient f/u with established vascular team, Dr. Lamas. Fluid continues to be taken off during dialysis so unlikely related to this. Pt continues to deny CP and SOB to me, although not oriented (baseline). 08/11: Continues to deny SOB. Continue to hold lasix due to hypotension. Continue to monitor. 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 Reviewed with nursing and this was confirmed. Since AM blood sugars have been elevated, will increase pt lantus from 10 units daily to 15 units. -Continue to trend sugars via CMP and POC testing 08/08: -Per RN, verified that pt home dose of lantus is 25 in the AM. Will switch her to this to start tomorrow AM due to persistent high AM sugars. 08/10: FBS 226, increased basal lantus from 25 to 30 U daily 08/11: FBS 192 today, starting to decrease, will continue to monitor due to poor appetite. 08/12: FBS 189 today but then went right to HD. When returned, BS 158, will hold AM lantus dose today, to resume tomorrow. 08/13: FBS 235 today, likely higher due to holding of her insulin yesterday d/t HD. Resume lantus today. (8) Atrial fibrillation: Qualifiers: Atrial fibrillation type: permanent Qualified Code(s): I48.21 - Permanent atrial fibrillation Code(s): I48.91 - Unspecified atrial fibrillation Status: Acute Assessment and Plan: History of atrial fibrillation, continue Eliquis and metoprolol Continue on telemetry monitoring 08/09: -Called to the bedside post dialysis due to pt being in afib rvr 110-130's. Pt asymptomatic, BP 103/51 which is her baseline. Pt missed AM dose of metoprolol 25mg, given when she returned to room. Gave x1 dose of Lopressor 2.5mg IV which helped get heart rate down to 100's. Will continue to monitor. Per daughter, pt runs at this rate at her baseline. 08/10: Clinically stable rate control 08/11: TELE 90 bpm today, clinically stable rate control 08/12: TELE 119bpm today, clinically stable rate control 08/13: TELE 90-111bpm, clinically stable rate control (9) Diarrhea: Code(s): R19.7 - Diarrhea, unspecified Status: Acute Assessment and Plan: 08/09: -Per nursing, started today. Ordered cdif to r/o. -Hx of IBS -Encourage fluid intake to prevent dehydration 08/11: Cdif negative 08/12: No known episodes of diarrhea. Plan PO abx for PNA, monitor BP, trend labs, hopeful D/C tomorrow after HD Time Spent With Patient Time: 45 Subjective Date/time seen: 08/13/25 0931 Interval history: Pt with same mentation, not responding to me much, which is her baseline. Pt denies any issues today, no grimaces when performed physical exam. Lungs clear today. Had a discussion today with pt's daughter, Shima. Updated her on the POC including updated CXR results and abx use. Hopeful discharge tomorrow pending HD and pt status. Review of Systems Review of Systems: All systems reviewed & are unremarkable except as noted in HPI and below ROS unobtainable: Yes unobtainable due to mental status (Limited, A&O x1) Exam Narrative: HEENT: PERRL, sclerae nonicteric, pharyngeal mucosa pink and intact NECK: No JVD, adenopathy, or thyromegaly CHEST: Clear to auscultation. Normal effort HEART: NL S1/S2, irregular, 3/6 apical systolic murmur ABDOMEN: BS+, soft, nontender, no mass, no bruits EXTREMITIES: No cyanosis, edema, or clubbing NEUROLOGIC: CN intact and symmetric to inspection MUSCULOSKELETAL: Tone and strength symmetric with generalized 3/5 weakness PSYCH: Alert. Oriented to person, place, and year, but not to month Const: General: comfortable and no acute distress Other: , female, elderly, ill-appearing, obese body habitus HENMT: Face/Nose/Sinus: Normal nares present Mouth: Yes moist mucous membranes and Yes dry mucous membranes Eyes: General: appearance normal, both eyes and all related structures Sclera: sclerae normal Pupils: Equal, round and reactive pupils present EOM: EOMs intact bilaterally Resp: Effort & Inspection: normal respiratory effort Auscultation: clear to auscultation bilaterally Other: Nasal cannula in place place and tolerating well, 1L Cardio: Rate: tachycardic Rhythm: abnormal rhythm (Consistent with AFib) Other: + murmur GI: Other: Abdomen soft, nondistended, nontender. Normoactive bowel sounds in all quadrants. Skin: General skin exam: normal color and no rashes or lesions noted Wounds: no wounds Neuro: Cranial nerves: Yes Equal, round and reactive pupils present Other: A&O to self, all that she would answer for me. Moving all extremities. PERRLA. Unable to follow commands, appears to be due to uncooperation. Extrem: Other: Lower extremities very firm bilaterally extending from the feet to the upper thighs, not sure would call it edema, not tender today. DP pulses 2+ bilaterally. Psych: Other: OPAL, pt uncooperative with answering questions Objective Data Vital Signs Vital Signs: Vital Signs - 24 hr 08/12/25 08:45 08/12/25 09:31 08/12/25 09:50 Temperature 98.4 F Pulse Rate 115 H 110 H Respiratory Rate 17 Blood Pressure 105/67 107/58 L Pulse Oximetry 96 Oxygen Delivery Room Air 08/12/25 10:00 08/12/25 10:15 08/12/25 10:45 Temperature Pulse Rate 76 92 79 Respiratory Rate Blood Pressure 126/104 H 125/63 94/56 L Pulse Oximetry Oxygen Delivery 08/12/25 11:00 08/12/25 11:15 08/12/25 11:30 Temperature Pulse Rate 92 81 84 Respiratory Rate Blood Pressure 90/39 L 106/80 84/62 L Pulse Oximetry Oxygen Delivery 08/12/25 11:45 08/12/25 12:00 08/12/25 12:15 Temperature Pulse Rate 88 108 H 82 Respiratory Rate Blood Pressure 98/68 L 98/70 L Pulse Oximetry Oxygen Delivery 08/12/25 12:30 08/12/25 12:45 08/12/25 13:00 Temperature Pulse Rate 82 106 H 73 Respiratory Rate Blood Pressure 98/78 L 102/49 L 106/91 H Pulse Oximetry Oxygen Delivery 08/12/25 13:28 08/12/25 13:41 08/12/25 16:00 Temperature 97.7 F Pulse Rate 94 71 116 H Respiratory Rate 16 Blood Pressure 100/79 102/84 Pulse Oximetry 95 Oxygen Delivery 08/12/25 20:00 08/12/25 20:00 08/12/25 22:00 Temperature 99.3 F Pulse Rate 110 H 109 H Respiratory Rate 16 Blood Pressure 100/54 L Pulse Oximetry 99 Oxygen Delivery Room Air 08/12/25 22:50 08/13/25 00:00 08/13/25 04:00 Temperature Pulse Rate 113 H 99 104 H Respiratory Rate Blood Pressure Pulse Oximetry Oxygen Delivery 08/13/25 06:00 Temperature 98.3 F Pulse Rate 95 Respiratory Rate 18 Blood Pressure 80/49 L Pulse Oximetry 95 Oxygen Delivery Intake/Output Intake/Output: Intake & Output 08/10/25 08/11/25 08/12/25 08/13/25 23:59 23:59 23:59 23:59 Intake Total 610 1090 480 100 Output Total 20 2000 0 Balance 610 1070 -1520 100 Meds/Results Medications: Active Medications Generic Name Dose Route Start Last Admin Trade Name Freq PRN Reason Stop Dose Admin Acetaminophen 650 mg 07/29/25 15:59 08/11/25 14:31 Acetaminophen 325 Mg Tablet PO 650 mg Q4H PRN Administration Mild Pain (1-3) or Fever Acetaminophen 650 mg 07/29/25 17:04 Acetaminophen 650 Mg Suppository RECTAL Q6H PRN Mild Pain (1-3) or Fever Albuterol/Ipratropium 3 ml 07/29/25 19:52 Ipratropium 0.5 Mg/Albuterol Sulfate 2.5 Mg (Base) Ampul.Neb 3 Ml INHALATION Q4HRT PRN Shortness of Breath. Apixaban 5 mg 07/30/25 09:00 08/12/25 16:35 Apixaban 5 Mg Tablet PO 5 mg BID BIANKA Administration Aripiprazole 1 mg 07/31/25 21:00 08/12/25 22:53 Aripiprazole 1 Mg Tablet PO 1 mg HS BIANKA Administration Aripiprazole 2 mg 07/31/25 21:00 08/12/25 22:50 Aripiprazole 2 Mg Tablet BY MOUTH 2 mg HS BIANKA Administration Buspirone HCl 5 mg 07/31/25 17:00 08/12/25 16:35 Buspirone Hcl 5 Mg Tablet BY MOUTH 5 mg TID BIANKA Administration Dextrose 12.5 gm 07/29/25 19:52 Dextrose 50% 25 Gm/50 Ml Syringe IV PUSH PRN PRN Hypoglycemia Protocol Docusate Sodium 200 mg 07/31/25 17:00 08/12/25 16:35 Docusate Sodium 100 Mg Capsule PO 200 mg BID BIANKA Administration Doxycycline Hyclate 100 mg 08/10/25 21:00 08/12/25 22:50 Doxycycline Hyclate 100 Mg Tablet PO 100 mg Q12HR BIANKA Administration Glucagon 1 mg 07/29/25 19:52 Glucagon For Inj 1 Mg Vial IM PRN PRN Hypoglycemia Protocol Glucose 15 gm 07/29/25 19:52 Glucose Oral Gel 15 Gm Of Glucse In 37.5 Gm Tube PO PRN PRN Hypoglycemia Protocol Dextrose 1,000 mls @ 100 mls/hr 07/29/25 19:52 Dextrose 5% 1,000 Ml IVPB PRN PRN Hypoglycemia Protocol Albumin Human 50 mls @ 999 mls/hr 07/30/25 05:49 08/12/25 09:59 Albutein IVPB 08/29/25 05:48 999 mls/hr Q10M PRN Administration HYPOTENSION Ceftriaxone Sodium 1 gm/ 50 mls @ 100 mls/hr 08/10/25 17:00 08/12/25 16:37 Sodium Chloride IVPB 100 mls/hr Q24H BIANKA Administration Insulin Aspart 4 - 8 units 07/31/25 08:00 08/12/25 22:46 Insulin Aspart (*Bkc) 100 Units/Ml SUB-Q Not Given TIDWM [facility] Protocol Insulin Aspart 2 - 4 units 07/30/25 21:00 08/12/25 22:54 Insulin Aspart (*Bkc) 100 Units/Ml SUB-Q 2 units HS BIANKA Administration Protocol Insulin Glargine 30 units 08/11/25 08:00 08/12/25 14:29 Insulin Glargine (*Bkc) 100 Units/Ml SUB-Q Not Given DAILY@0800 [facility] Memantine 5 mg 08/09/25 09:00 08/12/25 22:53 Memantine 5 Mg Tablet PO 5 mg Q12HR BIANKA Administration Metoprolol Tartrate 25 mg 08/03/25 21:00 08/12/25 22:50 Metoprolol Tartrate 25 Mg Tablet PO 25 mg Q12HR BIANKA Administration Midodrine 10 mg 08/04/25 06:00 08/13/25 05:51 Midodrine Hcl 10 Mg Tablet PO 10 mg Q8HR BIANKA Administration Miscellaneous Information 1 each 08/10/25 00:01 Please Renew Methyphnidate. Per [employer] Procedure, It Will Discontinue If Not Renewed. XX 09/09/25 00:00 CLARIFY [facility] Naloxone HCl 0.1 mg 07/29/25 20:26 Naloxone Hcl 0.4 Mg/Ml Vial IV PUSH Q5MIN PRN Sedation Non-Formulary Medication 30 mg 08/12/25 16:30 08/12/25 23:19 Tenapanor [Xphozah] PO 09/11/25 16:29 Not Given DAILY@1630 [facility] Ondansetron HCl 4 mg 07/29/25 15:59 08/09/25 15:47 Ondansetron Inj 4 Mg/2 Ml Vial IV PUSH 4 mg Q4H PRN Administration Nausea Pantoprazole Sodium 40 mg 07/30/25 09:00 08/12/25 14:31 Pantoprazole Sodium Iv 40 Mg Vial IV PUSH 40 mg QAM BIANKA Administration Phenyleph/Shark Oil/Min Oil/Petrol 1 applic 08/12/25 09:00 08/12/25 14:30 Phenyleph/Shark Oil/Mo/Petrol Cream 26 Gm RECTAL Not Given DAILY BIANKA Rosuvastatin Calcium 10 mg 08/01/25 09:00 08/12/25 14:30 Rosuvastatin 10 Mg Tablet PO 10 mg DAILY BIANKA Administration Saccharomyces Boulardii 250 mg 08/12/25 17:00 08/12/25 16:35 Saccharomyces Boulardii 250 Mg Capsule PO 250 mg BID BIANKA Administration Sertraline HCl 50 mg 08/01/25 09:00 08/12/25 14:30 Sertraline Hcl 50 Mg Tablet PO 50 mg DAILY BIANKA Administration Sodium Chloride 20 ml 07/29/25 15:58 Central Line Flush IV PUSH PRN PRN after blood draws Radiology Results: ITS Impressions Head CT 07/29/25 17:35 Impression: 1.No acute intracranial abnormality. Chest/Abdomen/Pelvis CT 07/29/25 18:21 IMPRESSION: CHEST- 1. Mild interstitial pulmonary edema with small left pleural effusions and bibasilar atelectasis. 2. No other acute abnormality. ABDOMEN/PELVIS- 1. No acute abnormality. 2. Additional findings as above. Chest X-Ray 08/10/25 14:13 Impression: CHF. Superimposed bilateral lower lobe pneumonia. The findings appear progressed compared to the previous study Labs Labs: Laboratory Results - last 24 hr 08/11/25 08/12/25 08/12/25 00:38 08:21 14:27 WBC RBC Hgb Hct MCV MCH MCHC RDW Plt Count MPV Immature Gran % (Auto) Neut % (Auto) Lymph % (Auto) [place] % (Auto) Eos % (Auto) Baso % (Auto) Lymph # (Auto) [place] # (Auto) Eos # (Auto) Baso # (Auto) Abs Immat Gran (auto) Absolute Neuts (auto) Absolute Nucleated RBC Band Neutrophils % Nucleated RBC % Platelet Estimate Hypochromasia Schistocytes Sodium Potassium Chloride Carbon Dioxide Anion Gap BUN Creatinine Estim Creat Clear Calc Estimated GFR Glucose POC Capillary Glucose 199 H 158 H Calcium Magnesium Total Bilirubin AST ALT Alkaline Phosphatase Total Protein Albumin Urine Color Cancelled Urine Appearance Cancelled Urine pH Cancelled Ur Specific [place] Cancelled Urine Protein Cancelled Urine Glucose (UA) Cancelled Urine Ketones Cancelled Ur Blood (Man) Cancelled Urine Nitrate Cancelled Urine Bilirubin Cancelled Urine Urobilinogen Cancelled Add Ur Microanalysis Cancelled Leukocyte Esterase Rfl Cancelled Urine RBC Cancelled Urine WBC Cancelled Urine WBC Clumps Cancelled Ur Squamous Epith Cells Cancelled Ur Transition Epith Cell Cancelled Ur Renal Epithelial Cell Cancelled Tsaile Biurate Crystals Cancelled Calcium Carbonate Cryst Cancelled Calcium Phosphate Cryst Cancelled Calcium Oxalate Crystal Cancelled Leucine Crystals Cancelled Cystine Crystals Cancelled Uric Acid Crystals Cancelled Triple Phos Crystals Cancelled Sulfonamide Crystals Cancelled Cholesterol Crystals Cancelled Talc Crystals Cancelled Tyrosine Crystals Cancelled Hippuric Acid Crystals Cancelled Bilirubin Crystals Cancelled Other Crystals Cancelled Amorphous Sediment Cancelled Other Sediment Cancelled Urine Bacteria Cancelled Urine Casts Cancelled Cellular Casts Cancelled Epithelial Casts Cancelled Fatty Casts Cancelled Hyaline Casts Cancelled Granular Casts Cancelled Waxy Casts Cancelled Broad Casts Cancelled RBC Casts Cancelled WBC Casts Cancelled Urine Starch Cancelled Urine Mucus Cancelled Urine Trichomonas Cancelled Urine Yeast (Budding) Cancelled Ur Oval Fat Bodies Cancelled Sperm Presence Cancelled 08/12/25 08/12/25 08/12/25 16:49 20:01 22:49 WBC RBC Hgb Hct MCV MCH MCHC RDW Plt Count MPV Immature Gran % (Auto) Neut % (Auto) Lymph % (Auto) [place] % (Auto) Eos % (Auto) Baso % (Auto) Lymph # (Auto) [place] # (Auto) Eos # (Auto) Baso # (Auto) Abs Immat Gran (auto) Absolute Neuts (auto) Absolute Nucleated RBC Band Neutrophils % Nucleated RBC % Platelet Estimate Hypochromasia Schistocytes Sodium Potassium Chloride Carbon Dioxide Anion Gap BUN Creatinine Estim Creat Clear Calc Estimated GFR Glucose POC Capillary Glucose 178 H 214 H 255 H Calcium Magnesium Total Bilirubin AST ALT Alkaline Phosphatase Total Protein Albumin Urine Color Urine Appearance Urine pH Ur Specific [place] Urine Protein Urine Glucose (UA) Urine Ketones Ur Blood (Man) Urine Nitrate Urine Bilirubin Urine Urobilinogen Add Ur Microanalysis Leukocyte Esterase Rfl Urine RBC Urine WBC Urine WBC Clumps Ur Squamous Epith Cells Ur Transition Epith Cell Ur Renal Epithelial Cell Tsaile Biurate Crystals Calcium Carbonate Cryst Calcium Phosphate Cryst Calcium Oxalate Crystal Leucine Crystals Cystine Crystals Uric Acid Crystals Triple Phos Crystals Sulfonamide Crystals Cholesterol Crystals Talc Crystals Tyrosine Crystals Hippuric Acid Crystals Bilirubin Crystals Other Crystals Amorphous Sediment Other Sediment Urine Bacteria Urine Casts Cellular Casts Epithelial Casts Fatty Casts Hyaline Casts Granular Casts Waxy Casts Broad Casts RBC Casts WBC Casts Urine Starch Urine Mucus Urine Trichomonas Urine Yeast (Budding) Ur Oval Fat Bodies Sperm Presence 08/13/25 08/13/25 05:02 07:53 WBC 9.2 RBC 3.54 L Hgb 10.1 L Hct 34.4 L MCV 97.2 MCH 28.5 MCHC 29.4 L RDW 17.1 H Plt Count 304 MPV 10.1 Immature Gran % (Auto) 0.7 H Neut % (Auto) 76.9 H Lymph % (Auto) 10.9 L [place] % (Auto) 9.7 H Eos % (Auto) 1.4 Baso % (Auto) 0.4 Lymph # (Auto) 1.00 [place] # (Auto) 0.9 H Eos # (Auto) 0.1 Baso # (Auto) 0.0 Abs Immat Gran (auto) 0.06 H Absolute Neuts (auto) 7.1 H Absolute Nucleated RBC 0.000 Band Neutrophils % Not Reportable Nucleated RBC % 0.0 Platelet Estimate Adequate Hypochromasia 1+ Schistocytes None seen Sodium 136 L Potassium 4.0 Chloride 90 L Carbon Dioxide 28 Anion Gap 18 H BUN 47 H D Creatinine 3.65 H Estim Creat Clear Calc 13 Estimated GFR 12 L Glucose 235 H POC Capillary Glucose 216 H Calcium 11.4 H Magnesium 2.0 Total Bilirubin 1.0 AST 55 H ALT 19 Alkaline Phosphatase 155 H Total Protein 7.7 Albumin 4.1 Urine Color Urine Appearance Urine pH Ur Specific [place] Urine Protein Urine Glucose (UA) Urine Ketones Ur Blood (Man) Urine Nitrate Urine Bilirubin Urine Urobilinogen Add Ur Microanalysis Leukocyte Esterase Rfl Urine RBC Urine WBC Urine WBC Clumps Ur Squamous Epith Cells Ur Transition Epith Cell Ur Renal Epithelial Cell Tsaile Biurate Crystals Calcium Carbonate Cryst Calcium Phosphate Cryst Calcium Oxalate Crystal Leucine Crystals Cystine Crystals Uric Acid Crystals Triple Phos Crystals Sulfonamide Crystals Cholesterol Crystals Talc Crystals Tyrosine Crystals Hippuric Acid Crystals Bilirubin Crystals Other Crystals Amorphous Sediment Other Sediment Urine Bacteria Urine Casts Cellular Casts Epithelial Casts Fatty Casts Hyaline Casts Granular Casts Waxy Casts Broad Casts RBC Casts WBC Casts Urine Starch Urine Mucus Urine Trichomonas Urine Yeast (Budding) Ur Oval Fat Bodies Sperm Presence Quality VTE Prophylaxis VTE prophylaxis: pharmacologic ordered
[2025-08-13] MEDS: INSULIN ASPART (*BKC) 100 UNITS/ML SUB-Q ×4 (08:42→21:43)
[2025-08-13] MEDS: INSULIN GLARGINE (*BKC) 100 UNITS/ML 30 UNITS SUB-Q (08:44)
[2025-08-13] MEDS: DOCUSATE SODIUM 100 MG CAPSULE 200 MG PO ×2 (08:45→17:26)
[2025-08-13] MEDS: DOXYCYCLINE HYCLATE 100 MG TABLET PO ×2 (08:45→21:45)
[2025-08-13] MEDS: SACCHAROMYCES BOULARDII 250 MG CAPSULE PO ×2 (08:46→17:26)
[2025-08-13] MEDS: MEMANTINE 5 MG TABLET PO ×2 (08:46→21:45)
[2025-08-13] MEDS: PANTOPRAZOLE SODIUM IV 40 MG VIAL IV PUSH (08:46)
[2025-08-13] MEDS: ROSUVASTATIN 10 MG TABLET PO (08:46)
[2025-08-13] MEDS: SERTRALINE HCL 50 MG TABLET PO (08:46)
[2025-08-13] MEDS: APIXABAN 5 MG TABLET PO ×2 (08:46→17:26)
--- NOTE | 2025-08-13 10:56 | P.PNNP_ITS ---
Progress Note: A&P Assessment and Plan (1) ESRD (end stage renal disease): Code(s): N18.6 - End stage renal disease Status: Chronic Assessment and Plan: * HD tomorrow * resume Tue/Tue/Tuesday dialysis schedule this week * follow electrolytes, volume status, and clearance * high calcium likely related to not getting Sensipar here/secondary hyperparathyroidism * will transition to [facility] with outpatient dialysis treatments (2) Pneumonia: Code(s): J18.9 - Pneumonia, unspecified organism Status: Acute Assessment and Plan: * recent CXR (08/10) results noted: * CHF * superimposed bilateral lower lobe pneumonia * findings appear progressed compared to the previous study * associated with some worsening of chronic hypotension, elevated WBC, and low grade fevers * follow culture data * on antibiotics (3) Hypotension: Code(s): I95.9 - Hypotension, unspecified Status: Acute Assessment and Plan: * acute on chronic * recent and previous echocardiograms noted * baseline systolic BP runs in the 90s for the last month * recently started on midodrine therapy from recent [facility] admission * recent low grade fevers and elevated WBC concerning for new infection..... * WBC better today * CXR with bilateral lower lobe antibiotics * culture data * on antibiotics * remains on midodrine therapy * PRN IV albumin while hospitalized (4) Atrial fibrillation: Qualifiers: Atrial fibrillation type: permanent Qualified Code(s): I48.21 - Permanent atrial fibrillation Code(s): I48.91 - Unspecified atrial fibrillation Status: Acute Assessment and Plan: * known history * rate control strategy * metoprolol use complicated by chronic hypotension * already on anticoagulation (5) AMS (altered mental status): Qualifiers: Altered mental status type: transient alteration of awareness Qualified Code(s): R40.4 - Transient alteration of awareness Code(s): R41.82 - Altered mental status, unspecified Status: Acute Assessment and Plan: * fluctuates even at baseline * despite underlying dementia, usually alert and oriented x 2 - 3 (although not consistently) * head CT negative * due to hypotension versus infection (i.e. pneumonia?) * Neurology following * EEG results noted * continue supportive therapy (6) Acute hypoxic respiratory failure: Code(s): J96.01 - Acute respiratory failure with hypoxia Status: Acute Assessment and Plan: * slowly improving * as noted since admission * presumably due to volume overload (CHF + pulmonary edema) and recurrent pneumonia * admission imaging noted * fluid removal challenging in the context of hypotension (presumably a problem during recent hospitalization at [facility] as well) * ongoing fluid removal with HD/DUF as tolerated * recent CXR noted * on/off supplemental oxygen (7) Urinary tract infection: Qualifiers: Hematuria presence: without hematuria Urinary tract infection type: a cute cystitis Qualified Code(s): N30.00 - Acute cystitis without hematuria Code(s): N39.0 - Urinary tract infection, site not specified Status: Acute Assessment and Plan: * admission UA suggestive * however, no urine culture done at that time * repeat UA ordered (pending) * on antibiotics (8) Volume overload: Code(s): E87.70 - Fluid overload, unspecified Status: Acute Assessment and Plan: * as suggested by evidence on admission: * imaging with CHF findings and pulmonary edema * ~ 8kg above dry weight per outpatient dialysis clinic when seen on 07/29 * aggressive fluid removal with HD and DUF as tolerated by hemodynamics * Echo from admission to [facility] noted (07/23/25): * left ventricle is normal in size with estimated EF of 50 - 55% * right ventricular systolic function is at the lower limit of normal * moderate to severe aortic stenosis * no evidence of aortic valve regurgitation * mild to moderate mitral and pulmonic regurgitation * no evidence of mitral stenosis * moderate tricuspid regurgitation * moderate pulmonary hypertension * mildly dilated ascending aorta * limited Echo done here (08/05) reviewed: * normal biventricular size and systolic function * aortic valve is trileaflet and calcified * visually appears to be mild to moderate aortic stenosis * mild mitral regurgitation * almost 13L negative since admission * follow respiratory status and clinical exam (9) Anemia: Qualifiers: Anemia type: due to chronic kidney disease Chronic kidney disease stage: on chronic dialysis Qualified Code(s): N18.6 - End stage renal disease; D63.1 - Anemia in chronic kidney disease; Z99.2 - Dependence on renal dialysis Code(s): D64.9 - Anemia, unspecified Status: Chronic Assessment and Plan: * due to ESRD and acute illness * anemia studies noted: * evidence of mild iron deficiency * follow trend of H/H * Epogen with HD (10) DM type 2 (diabetes mellitus, type 2): Qualifiers: Diabetes mellitus retirement insulin use: without retirement use Diabetes mellitus complication status: without complication Qualified Code(s): E11.9 - Type 2 diabetes mellitus without complications Code(s): E11.9 - Type 2 diabetes mellitus without complications Status: Chronic Assessment and Plan: * follow accu-cheks * glycemic control per hospitalist Will continue to follow. L Subjective Date/time seen: 08/13/25 10:55 Interval history: Following for end stage renal disease on hemodialysis. Tolerated dialysis treatment yesterday wiithout any issues or problems; BP has been relatively stable with midodrine therapy; WBC has normalized with current therapy; no apparent distress or complaints noted at this time. Exam 2 Narrative: General: elderly but WD/WN female in NAD Heart: IRRR, normal S1 and S2; no rub Lungs: coarse breath sounds; decreased at bases Abdomen: obese but soft, nontender, nondistended, positive bowel sounds Extremities: no cyanosis or clubbing; trace edema (UEs and LEs) Skin: warm and dry Objective Data Vital Signs Vital Signs: Vital Signs Temp Pulse Resp BP Pulse Ox O2 Del Method 08/13/25 11:04 88/44 L 08/13/25 08:36 101 H 15 93/79 L 100 08/13/25 08:00 112 H 08/13/25 06:00 98.3 F 95 18 80/49 L 95 08/13/25 04:00 104 H 08/13/25 00:00 99 08/12/25 22:50 113 H 08/12/25 22:00 99.3 F 109 H 16 100/54 L 99 08/12/25 20:00 110 H 08/12/25 20:00 Room Air Intake/Output Intake/Output: Intake & Output 08/10/25 08/11/25 08/12/25 08/13/25 23:59 23:59 23:59 23:59 Intake Total 610 1090 480 220 Output Total 20 2000 0 Balance 610 1070 -1520 220 Meds/Results Medications: Active Medications Generic Name Dose Route Start Last Admin Trade Name Freq PRN Reason Stop Dose Admin Acetaminophen 650 mg 07/29/25 15:59 08/11/25 14:31 Acetaminophen 325 Mg Tablet PO 650 mg Q4H PRN Administration Mild Pain (1-3) or Fever Acetaminophen 650 mg 07/29/25 17:04 Acetaminophen 650 Mg Suppository RECTAL Q6H PRN Mild Pain (1-3) or Fever Albuterol/Ipratropium 3 ml 07/29/25 19:52 Ipratropium 0.5 Mg/Albuterol Sulfate 2.5 Mg (Base) Ampul.Neb 3 Ml INHALATION Q4HRT PRN Shortness of Breath. Amoxicillin/Clavulanate Potassium 500 mg 08/13/25 18:00 Amoxicillin/Clavulanate K Susp 500 Mg/6.25 Ml Ud PO 08/17/25 09:01 Q12HR BIANKA Apixaban 5 mg 07/30/25 09:00 08/13/25 17:26 Apixaban 5 Mg Tablet PO 5 mg BID BIANKA Administration Aripiprazole 1 mg 07/31/25 21:00 08/12/25 22:53 Aripiprazole 1 Mg Tablet PO 1 mg HS BIANKA Administration Aripiprazole 2 mg 07/31/25 21:00 08/12/25 22:50 Aripiprazole 2 Mg Tablet BY MOUTH 2 mg HS BIANKA Administration Buspirone HCl 5 mg 07/31/25 17:00 08/13/25 17:26 Buspirone Hcl 5 Mg Tablet BY MOUTH 5 mg TID BIANKA Administration Dextrose 12.5 gm 07/29/25 19:52 Dextrose 50% 25 Gm/50 Ml Syringe IV PUSH PRN PRN Hypoglycemia Protocol Docusate Sodium 200 mg 07/31/25 17:00 08/13/25 17:26 Docusate Sodium 100 Mg Capsule PO 200 mg BID BIANKA Administration Doxycycline Hyclate 100 mg 08/10/25 21:00 08/13/25 08:45 Doxycycline Hyclate 100 Mg Tablet PO 08/15/25 09:01 100 mg Q12HR BIANKA Administration Glucagon 1 mg 07/29/25 19:52 Glucagon For Inj 1 Mg Vial IM PRN PRN Hypoglycemia Protocol Glucose 15 gm 07/29/25 19:52 Glucose Oral Gel 15 Gm Of Glucse In 37.5 Gm Tube PO PRN PRN Hypoglycemia Protocol Dextrose 1,000 mls @ 100 mls/hr 07/29/25 19:52 Dextrose 5% 1,000 Ml IVPB PRN PRN Hypoglycemia Protocol Albumin Human 50 mls @ 999 mls/hr 07/30/25 05:49 08/12/25 09:59 Albutein IVPB 08/29/25 05:48 999 mls/hr Q10M PRN Administration HYPOTENSION Insulin Aspart 4 - 8 units 07/31/25 08:00 08/13/25 12:17 Insulin Aspart (*Bkc) 100 Units/Ml SUB-Q 4 units TIDWM BIANKA Administration Protocol Insulin Aspart 2 - 4 units 07/30/25 21:00 08/12/25 22:54 Insulin Aspart (*Bkc) 100 Units/Ml SUB-Q 2 units HS BIANKA Administration Protocol Insulin Glargine 30 units 08/11/25 08:00 08/13/25 08:44 Insulin Glargine (*Bkc) 100 Units/Ml SUB-Q 30 units DAILY@0800 BIANKA Administration Memantine 5 mg 08/09/25 09:00 08/13/25 08:46 Memantine 5 Mg Tablet PO 5 mg Q12HR BIANKA Administration Metoprolol Tartrate 25 mg 08/03/25 21:00 08/12/25 22:50 Metoprolol Tartrate 25 Mg Tablet PO 25 mg Q12HR BIANKA Administration Midodrine 10 mg 08/04/25 06:00 08/13/25 13:10 Midodrine Hcl 10 Mg Tablet PO 10 mg Q8HR BIANKA Administration Miscellaneous Information 1 each 08/10/25 00:01 Please Renew Methyphnidate. Per [employer] Procedure, It Will Discontinue If Not Renewed. XX 09/09/25 00:00 CLARIFY BIANKA Naloxone HCl 0.1 mg 07/29/25 20:26 Naloxone Hcl 0.4 Mg/Ml Vial IV PUSH Q5MIN PRN Sedation Non-Formulary Medication 30 mg 08/12/25 16:30 08/13/25 17:27 Tenapanor [Xphozah] PO 09/11/25 16:29 30 mg DAILY@1630 BIANKA Administration Ondansetron HCl 4 mg 07/29/25 15:59 08/09/25 15:47 Ondansetron Inj 4 Mg/2 Ml Vial IV PUSH 4 mg Q4H PRN Administration Nausea Pantoprazole Sodium 40 mg 07/30/25 09:00 08/13/25 08:46 Pantoprazole Sodium Iv 40 Mg Vial IV PUSH 40 mg QAM BIANKA Administration Phenyleph/Shark Oil/Min Oil/Petrol 1 applic 08/12/25 09:00 08/13/25 12:07 Phenyleph/Shark Oil/Mo/Petrol Cream 26 Gm RECTAL Not Given DAILY BIANKA Rosuvastatin Calcium 10 mg 08/01/25 09:00 08/13/25 08:46 Rosuvastatin 10 Mg Tablet PO 10 mg DAILY BIANKA Administration Saccharomyces Boulardii 250 mg 08/12/25 17:00 08/13/25 17:26 Saccharomyces Boulardii 250 Mg Capsule PO 250 mg BID BIANKA Administration Sertraline HCl 50 mg 08/01/25 09:00 08/13/25 08:46 Sertraline Hcl 50 Mg Tablet PO 50 mg DAILY BIANKA Administration Sodium Chloride 20 ml 07/29/25 15:58 Central Line Flush IV PUSH PRN PRN after blood draws Radiology Results: ITS Impressions Head CT 07/29/25 17:35 Impression: 1.No acute intracranial abnormality. Chest/Abdomen/Pelvis CT 07/29/25 18:21 IMPRESSION: CHEST- 1. Mild interstitial pulmonary edema with small left pleural effusions and bibasilar atelectasis. 2. No other acute abnormality. ABDOMEN/PELVIS- 1. No acute abnormality. 2. Additional findings as above. Chest X-Ray 08/13/25 09:23 IMPRESSION: 1.Patchy opacities in the right mid and lower lungs similar to the prior study from 08/10/2025. Follow-up is recommended. 2.Patchy opacities in the left lower lung similar to the prior study from 08/10/2025. Labs Labs: Laboratory Tests 08/13/25 05:02 08/13/25 05:02 Calcium 11.4 H Magnesium 2.0 Total Bilirubin 1.0 AST 55 H ALT 19 Alkaline Phosphatase 155 H Total Protein 7.7 Albumin 4.1 Microbiology 08/10/25 11:57 Blood Blood Culture - Preliminary 08/10/25 12:03 Blood Blood Culture - Preliminary
[2025-08-13] MEDS: [UNRECOGNIZED DRUG - OTHER] PO (17:27)
[2025-08-13] MEDS: TENAPANOR 30 MG PO (17:27)
[2025-08-13] MEDS: ACETAMINOPHEN 325 MG TABLET 650 MG PO (17:42)
[2025-08-13] MEDS: AMOXICILLIN/CLAVULANATE K SUSP 500 MG/6.25 ML UD PO (18:09)
[2025-08-14] VITALS (31 sets, daily range): BP systolic 74–160; BP diastolic 44–108; PULSE 57–133; RESP 15–24; TEMP 36.2–37; O2SAT 93–97
[2025-08-14 05:18] LABS: Hematocrit 34.4 % (37.0-47.0); Hemoglobin 10.1 g/dL (12.0-15.0); Immature Granulocyte Percent A 0.9 % (0-0.5); Lymphocytes Absolute Auto 0.94 K/mm3 (0.9-3.2); Mean Corpuscular HGB Conc 29.4 g/dl (32-36); Mean Corpuscular Hemoglobin 28.1 pg (26-34); Mean Corpuscular Volume 95.8 fl (80-100); Nucleated Red Blood Cells Absolute Auto 0.000 K/mm3 (0.0-0.012); Nucleated Red Blood Cells Perc 0.0 % (0.0-0.2); Platelet Count Result 328 k/mm3 (150-375); Red Blood Count 3.59 M/mm3 (4.2-5.4); White Blood Count 11.3 K/mm3 (4.5-10.0)
[2025-08-14 05:37] LABS: Magnesium 1.9 mg/dL (1.6-2.3)
[2025-08-14 05:49] LABS: Alanine Aminotransferase 18 U/L (6-35); Albumin Level 4.0 g/dL (3.5-5.1); Alkaline Phosphatase 150 U/L (38-126); Anion Gap 20 mmol/L (4-12); Aspartate Amino Transferase 30 U/L (14-36); Bilirubin,Total 0.9 mg/dL (0.2-1.3); Blood Urea Nitrogen 71 mg/dL (7-17); Calcium 10.3 mg/dL (8.4-10.2); Carbon Dioxide 26 mmol/L (22-30); Chloride 89 mmol/L (98-107); Estimated CRCL calculation 10 ml/min; Estimated Glomerular Filt Rate 9; Glucose 270 mg/dL (65-110); Potassium 3.8 mmol/L (3.4-5.0); Sodium 135 mmol/L (137-145); Total Protein 7.5 g/dL (6.3-8.2)
[2025-08-14] MEDS: METOPROLOL TARTRATE 25 MG TABLET PO ×3 (05:59→21:32)
[2025-08-14] MEDS: SODIUM CHLORIDE 0.9% IV 500 ML IV CONT (05:59)
[2025-08-14] MEDS: MIDODRINE HCL 10 MG TABLET PO ×3 (06:00→21:33)
[2025-08-14 06:10] LABS: Anisocytosis 1+; Hypochromasia 1+
[2025-08-14 06:11] LABS: Burr Cells 1+; Ovalocytes 1+; Schistocytes Rare
[2025-08-14] MEDS: INSULIN GLARGINE (*BKC) 100 UNITS/ML 30 UNITS SUB-Q (08:05)
[2025-08-14] MEDS: ALBUMIN HUMAN 25% 25 GM/100 ML 100 ML IVPB (08:59)
--- NOTE | 2025-08-14 09:39 | PM.IMPN ---
Progress Note: A&P Assessment and Plan (1) Leukocytosis: Code(s): D72.829 - Elevated white blood cell count, unspecified Status: Acute Assessment and Plan: WBC improved 15.7>9.2<11.3 07/30: CT scan of the chest abdomen follows showed interstitial edema with small left pleural effusion. Abdomen and pelvis did not show any acute abnormality -records have been requested from [facility] -february after repeat an echocardiogram if it was not done at [facility] -continue Zosyn and vancomycin (07/29) will continue for a total of 7 days, discontinued on 08/05 -07/29: Preliminary blood cultures negative x2 -08/04-Hr 100. 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 No acute infarct or hemorrhage. No midline shift or mass effect. No extra-axial fluid collections. Bilateral mastoid effusions noted. Severe left maxillary sinusitis with underlying polyp formation suspected. No acute fracture. No significant facial or scalp soft tissue swelling evident. No radiopaque foreign body is seen. EEG results: 1. Mild diffuse background slowing and frontal intermittent rhythmic delta activity suggestive generalized encephalopathy or bihemispheric lesion.2. Focal slowing and sharp wave activity noted over the left temporal area. Focal slowing may raise possibility of underlying structural lesion. Sharp transients are considered nonspecific focal abnormality. However such abnormalities may be seen many elderly subjects and hence clinical and if necessary radiographic correlation may be helpful. PLAN Neurology following, appreciate recommendations, added Namenda --Follow up with neurology in clinic --Follow Blood pressure. (4) ESRD (end stage renal disease): Code(s): N18.6 - End stage renal disease Status: Chronic Assessment and Plan: End-stage renal disease on dialysis, Tuesday, Tuesday, Tuesday -after discussion with Nephrology, seems like patient has not been optimally dialyzed at [facility] and at outpatient dialysis center due to hypotension. Patient was 8-10 L positive from her dry weight -07/30: Dialyzed with 2500 mL in fluid removal, she did require Levophed and albumin during dialysis. -07/31: Dialyzed with 4000 mL in fluid removal -08/01: Dialyzed with 4000 mL in fluid removed 08/02-dialyzed with 4000 mL and fluid removal 08/03-dialyzed with 3000 food review -08/05 Pt recieved dialysis 08/07: Received dialysis 08/09: HD 3.5 hr treatment performed, 1,300ml taken off. 08/10: Hypotensive with SBP 73 after HD 08/09, temp noted 08/09 just after 8 AM (100.0) and just prior to noon (100.2). 08/12: HD today, successful. BP stable through treatment. 08/14 HD today PLAN --Per nephro, she will resume dialysis MWF (5) Hypotension: Code(s): I95.9 - Hypotension, unspecified Status: Acute Assessment and Plan: Multifactorial, infection, hypotensive with dialysis 08/07: BPs have been soft, but stable here. Remains on midodrine therapy 08/09: During dialysis, pts low again, 80/50's. Albumin given in dialysis per chart. Normalized now. Continue VS q4 hrs and midodrine. 08/11: Continue to monitor BP, pt dx with PNA, may be contributing. Pt BP still on the low end, midodrine continues to be given. x1 episode today at 85/45, this was right before Midodrine was given. Stable since. 08/12: BP has been stable today, continue midodrine. 08/13: BP has continued to be soft, as per baseline. Continue midodrine. (6) CHF (congestive heart failure): Qualifiers: Heart failure chronicity: acute on chronic Heart failure type: unspecified Qualified Code(s): I50.9 - Heart failure, unspecified Code(s): I50.9 - Heart failure, unspecified Status: Acute Assessment and Plan: Pulmonary edema on chest x-ray, could be related to CHF likely 2/2 Fluid overloaded 2/2 inadequate dialysis Dialysis per Nephrology 07/23/2025: Echocardiogram from [facility] left ventricle is normal in size with estimated EF of 50 - 55% right ventricular systolic function is at the lower limit of normal moderate to severe aortic stenosis no evidence of aortic valve regurgitation mild to moderate mitral and pulmonic regurgitation no evidence of mitral stenosis moderate tricuspid regurgitation moderate pulmonary hypertension mildly dilated ascending aorta 08/07: -BLE edema persistent, pt does not answer if she has SOB or CP. Will continue to assess. Continue HD and neph f/u recs 08/08: Denies SOB and CP today. BLE hard, but not sure would call them edematous. Will discuss with pt daughter Shima. 08/09: Discussed BLE with pt's daughter today, plan for outpatient f/u with established vascular team, Dr. Lamas. Fluid continues to be taken off during dialysis so unlikely related to this. Pt continues to deny CP and SOB to me, although not oriented (baseline). 08/11: Continues to deny SOB. Continue to hold lasix due to hypotension. Continue to monitor. (7) DM type 2 (diabetes mellitus, type 2): Qualifiers: Diabetes mellitus complication status: without complication Diabetes mellitus [facility] insulin use: without termite treater helper use Qualified Code(s): E11.9 - Type 2 diabetes mellitus without complications Code(s): E11.9 - Type 2 diabetes mellitus without complications Status: Chronic Assessment and Plan: Home meds:Aspart SSI, Lantus 25 daily --Continue Accu-Cheks and sliding scale insulin --Continue Lantus 30 daily, add mealtime insulin Recent history 08/07: -Per med rec, pt has only been getting 10units lantus in the AMs total. Reviewed with nursing and this was confirmed. Since AM blood sugars have been elevated, will increase pt lantus from 10 units daily to 15 units. -Continue to trend sugars via CMP and POC testing 08/08: -Per RN, verified that pt home dose of lantus is 25 in the AM. Will switch her to this to start tomorrow AM due to persistent high AM sugars. 08/10: FBS 226, increased basal lantus from 25 to 30 U daily 08/11: FBS 192 today, starting to decrease, will continue to monitor due to poor appetite. 08/12: FBS 189 today but then went right to HD. When returned, BS 158, will hold AM lantus dose today, to resume tomorrow. 08/13: FBS 235 today, likely higher due to holding of her insulin yesterday d/t HD. Resume lantus today. 08/14: FBS 214, 117 before lunch. Had dialysis today (8) Atrial fibrillation: Qualifiers: Atrial fibrillation type: permanent Qualified Code(s): I48.21 - Permanent atrial fibrillation Code(s): I48.91 - Unspecified atrial fibrillation Status: Acute Assessment and Plan: History of atrial fibrillation --Home meds: Eliquis and metoprolol 08/04/2025: Echocardiogram Summary ATRIAL FIBRILLATION WITH RAPID VENTRICULAR RESPONSE INCOMPLETE LEFT BUNDLE BRANCH BLOCK LEFT VENTRICULAR HYPERTROPHY WITH ST-T CHANGE MINIMAL Q WAVES- HIGH LATERAL LEADS BASELINE ARTIFACT- II, III, V1-V3 ABNORMAL ECG Compared to ECG 07/29/2025 12:56:03 HEART RATE HAS INCREASED 08/09: -Called to the bedside post dialysis due to pt being in afib rvr 110-130's. Pt asymptomatic, BP 103/51 which is her baseline. Pt missed AM dose of metoprolol 25mg, given when she returned to room. Gave x1 dose of Lopressor 2.5mg IV which helped get heart rate down to 100's. Will continue to monitor. Per daughter, pt runs at this rate at her baseline. PLAN --Continue on telemetry monitoring --Continue home meds (9) Diarrhea: Code(s): R19.7 - Diarrhea, unspecified Status: Acute Assessment and Plan: Hx IBS diarrhea resolved. C-dff negative 08/11 Plan Admitted 07/29 from [facility] for altered mental status and hypotension. Initially admitted to the ICU on pressors. Cultures have been negative. Chest CT 07/29 showed mild interstitial edema with small pleural effusions Renal following for HD Time Spent With Patient Time: 56 minutes Subjective Date/time seen: 08/14/25 09:39 Interval history: Lethargic after dialysis BP 95/62 WBC 18.2>9.2<11.3 Alk phos 137<168>150 Review of Systems Review of Systems: All systems reviewed & are unremarkable except as noted in HPI and below ROS unobtainable: Yes unobtainable due to mental status (Limited, A&O x1) Exam Narrative: General - Awake and alert. No acute distress Eyes - PERRLA, EOM intact ENT - No thrush, No erythema Neck - No noticeable or palpable swelling Lymph Nodes - No lymphadenopathy Cardiovascular - RRR no m/r/g, no JVD Lungs: Clear to auscultation, No wheezing, use of accessory muscles, no crackles Skin - Skin warm and dry, no wounds or rashes Abdomen - Normal bowel sounds, abdomen soft and nontender Extremities - No edema, cyanosis or clubbing Musculoskeletal - 5/5 strength, normal range of motion, no swollen or erythematous joints. Neurological ? Alert and oriented x 1, CN 2-12 grossly intact. Intermittently responds, 2/5 weakness all extremities Psych: Normal mood and affect Objective Data Vital Signs Vital Signs: Vital Signs - 24 hr 08/13/25 11:04 08/13/25 12:00 08/13/25 13:10 Temperature 97.7 F Pulse Rate 112 H 93 Respiratory Rate 16 Blood Pressure 88/44 L 80/48 L Pulse Oximetry 93 Oxygen Delivery 08/13/25 16:00 08/13/25 16:12 08/13/25 20:00 Temperature Pulse Rate 122 H Respiratory Rate Blood Pressure 104/88 Pulse Oximetry Oxygen Delivery Room Air 08/13/25 20:00 08/13/25 21:59 08/14/25 00:00 Temperature 97.4 F L Pulse Rate 124 H 103 H 121 H Respiratory Rate 22 H Blood Pressure 86/52 L Pulse Oximetry 97 Oxygen Delivery 08/14/25 04:00 08/14/25 04:32 08/14/25 05:59 Temperature 97.7 F Pulse Rate 121 H 57 L 121 H Respiratory Rate 22 H Blood Pressure 108/59 L Pulse Oximetry 96 Oxygen Delivery Intake/Output Intake/Output: Intake & Output 08/11/25 08/12/25 08/13/25 08/14/25 23:59 23:59 23:59 23:59 Intake Total 1090 480 340 240 Output Total 20 2000 0 Balance 1070 -1520 340 240 Meds/Results Medications: Active Medications Generic Name Dose Route Start Last Admin Trade Name Freq PRN Reason Stop Dose Admin Acetaminophen 650 mg 07/29/25 15:59 08/13/25 17:42 Acetaminophen 325 Mg Tablet PO 650 mg Q4H PRN Administration Mild Pain (1-3) or Fever Acetaminophen 650 mg 07/29/25 17:04 Acetaminophen 650 Mg Suppository RECTAL Q6H PRN Mild Pain (1-3) or Fever Albuterol/Ipratropium 3 ml 07/29/25 19:52 Ipratropium 0.5 Mg/Albuterol Sulfate 2.5 Mg (Base) Ampul.Neb 3 Ml INHALATION Q4HRT PRN Shortness of Breath. Amoxicillin/Clavulanate Potassium 500 mg 08/13/25 18:00 08/13/25 18:09 Amoxicillin/Clavulanate K Susp 500 Mg/6.25 Ml Ud PO 08/17/25 09:01 500 mg Q12HR BIANKA Administration Apixaban 5 mg 07/30/25 09:00 08/13/25 17:26 Apixaban 5 Mg Tablet PO 5 mg BID BIANKA Administration Aripiprazole 1 mg 07/31/25 21:00 08/13/25 21:45 Aripiprazole 1 Mg Tablet PO 1 mg HS BIANKA Administration Aripiprazole 2 mg 07/31/25 21:00 08/13/25 21:45 Aripiprazole 2 Mg Tablet BY MOUTH 2 mg HS BIANKA Administration Buspirone HCl 5 mg 07/31/25 17:00 08/13/25 17:26 Buspirone Hcl 5 Mg Tablet BY MOUTH 5 mg TID BIANKA Administration Dextrose 12.5 gm 07/29/25 19:52 Dextrose 50% 25 Gm/50 Ml Syringe IV PUSH PRN PRN Hypoglycemia Protocol Docusate Sodium 200 mg 07/31/25 17:00 08/13/25 17:26 Docusate Sodium 100 Mg Capsule PO 200 mg BID BIANKA Administration Doxycycline Hyclate 100 mg 08/10/25 21:00 08/13/25 21:45 Doxycycline Hyclate 100 Mg Tablet PO 08/15/25 09:01 100 mg Q12HR BIANKA Administration Epoetin [place]-epbx 10,000 units 08/14/25 18:08 Epoetin [place]-Epbx 10,000 Units/Ml Vial IV PUSH 08/14/25 18:09 ONCE ONE Glucagon 1 mg 07/29/25 19:52 Glucagon For Inj 1 Mg Vial IM PRN PRN Hypoglycemia Protocol Glucose 15 gm 07/29/25 19:52 Glucose Oral Gel 15 Gm Of Glucse In 37.5 Gm Tube PO PRN PRN Hypoglycemia Protocol Dextrose 1,000 mls @ 100 mls/hr 07/29/25 19:52 Dextrose 5% 1,000 Ml IVPB PRN PRN Hypoglycemia Protocol Albumin Human 50 mls @ 999 mls/hr 07/30/25 05:49 08/12/25 09:59 Albutein IVPB 08/29/25 05:48 999 mls/hr Q10M PRN Administration HYPOTENSION Insulin Aspart 4 - 8 units 07/31/25 08:00 08/14/25 08:03 Insulin Aspart (*Bkc) 100 Units/Ml SUB-Q Not Given TIDWM BIANKA Protocol Insulin Aspart 2 - 4 units 07/30/25 21:00 08/13/25 21:43 Insulin Aspart (*Bkc) 100 Units/Ml SUB-Q 2 units HS BIANKA Administration Protocol Insulin Glargine 30 units 08/11/25 08:00 08/14/25 08:05 Insulin Glargine (*Bkc) 100 Units/Ml SUB-Q 30 units DAILY@0800 BIANKA Administration Memantine 5 mg 08/09/25 09:00 08/13/25 21:45 Memantine 5 Mg Tablet PO 5 mg Q12HR BIANKA Administration Metoprolol Tartrate 25 mg 08/03/25 21:00 08/13/25 21:45 Metoprolol Tartrate 25 Mg Tablet PO Not Given Q12HR BIANKA Midodrine 10 mg 08/04/25 06:00 08/14/25 06:00 Midodrine Hcl 10 Mg Tablet PO 10 mg Q8HR BIANKA Administration Miscellaneous Information 1 each 08/10/25 00:01 Please Renew Methyphnidate. Per [employer] Procedure, It Will Discontinue If Not Renewed. XX 09/09/25 00:00 CLARIFY BIANKA Naloxone HCl 0.1 mg 07/29/25 20:26 Naloxone Hcl 0.4 Mg/Ml Vial IV PUSH Q5MIN PRN Sedation Non-Formulary Medication 30 mg 08/12/25 16:30 08/13/25 17:27 Tenapanor [Xphozah] PO 09/11/25 16:29 30 mg DAILY@1630 BIANKA Administration Ondansetron HCl 4 mg 07/29/25 15:59 08/09/25 15:47 Ondansetron Inj 4 Mg/2 Ml Vial IV PUSH 4 mg Q4H PRN Administration Nausea Pantoprazole Sodium 40 mg 07/30/25 09:00 08/13/25 08:46 Pantoprazole Sodium Iv 40 Mg Vial IV PUSH 40 mg QAM BIANKA Administration Phenyleph/Shark Oil/Min Oil/Petrol 1 applic 08/12/25 09:00 08/13/25 12:07 Phenyleph/Shark Oil/Mo/Petrol Cream 26 Gm RECTAL Not Given DAILY BIANKA Rosuvastatin Calcium 10 mg 08/01/25 09:00 08/13/25 08:46 Rosuvastatin 10 Mg Tablet PO 10 mg DAILY BIANKA Administration Saccharomyces Boulardii 250 mg 08/12/25 17:00 08/13/25 17:26 Saccharomyces Boulardii 250 Mg Capsule PO 250 mg BID BIANKA Administration Sertraline HCl 50 mg 08/01/25 09:00 08/13/25 08:46 Sertraline Hcl 50 Mg Tablet PO 50 mg DAILY BIANKA Administration Sodium Chloride 20 ml 07/29/25 15:58 Central Line Flush IV PUSH PRN PRN after blood draws Radiology Results: ITS Impressions Head CT 07/29/25 17:35 Impression: 1.No acute intracranial abnormality. Chest/Abdomen/Pelvis CT 07/29/25 18:21 IMPRESSION: CHEST- 1. Mild interstitial pulmonary edema with small left pleural effusions and bibasilar atelectasis. 2. No other acute abnormality. ABDOMEN/PELVIS- 1. No acute abnormality. 2. Additional findings as above. Chest X-Ray 08/13/25 09:23 IMPRESSION: 1.Patchy opacities in the right mid and lower lungs similar to the prior study from 08/10/2025. Follow-up is recommended. 2.Patchy opacities in the left lower lung similar to the prior study from 08/10/2025. Labs Labs: Laboratory Results - last 24 hr 08/13/25 08/13/25 08/13/25 11:55 13:01 17:00 WBC RBC Hgb Hct MCV MCH MCHC RDW Plt Count MPV Immature Gran % (Auto) Neut % (Auto) Lymph % (Auto) [place] % (Auto) Eos % (Auto) Baso % (Auto) Lymph # (Auto) [place] # (Auto) Eos # (Auto) Baso # (Auto) Abs Immat Gran (auto) Absolute Neuts (auto) Absolute Nucleated RBC Band Neutrophils % Nucleated RBC % Platelet Estimate Hypochromasia Anisocytosis Ovalocytes Jennifer Cells Schistocytes Sodium Potassium Chloride Carbon Dioxide Anion Gap BUN Creatinine Estim Creat Clear Calc Estimated GFR Glucose POC Capillary Glucose 236 H 217 H 220 H Calcium Magnesium Total Bilirubin AST ALT Alkaline Phosphatase Total Protein Albumin 08/13/25 08/14/25 08/14/25 20:01 04:19 07:57 WBC 11.3 H RBC 3.59 L Hgb 10.1 L Hct 34.4 L MCV 95.8 MCH 28.1 MCHC 29.4 L RDW 17.0 H Plt Count 328 MPV 10.8 H Immature Gran % (Auto) 0.9 H Neut % (Auto) 79.6 H Lymph % (Auto) 8.3 L [place] % (Auto) 9.8 H Eos % (Auto) 1.1 Baso % (Auto) 0.3 Lymph # (Auto) 0.94 [place] # (Auto) 1.1 H Eos # (Auto) 0.1 Baso # (Auto) 0.0 Abs Immat Gran (auto) 0.10 H Absolute Neuts (auto) 9.0 H Absolute Nucleated RBC 0.000 Band Neutrophils % Not Reportable Nucleated RBC % 0.0 Platelet Estimate Adequate Hypochromasia 1+ Anisocytosis 1+ Ovalocytes 1+ Jennifer Cells 1+ Schistocytes Rare Sodium 135 L Potassium 3.8 Chloride 89 L Carbon Dioxide 26 Anion Gap 20 H BUN 71 H D Creatinine 4.92 H Estim Creat Clear Calc 10 Estimated GFR 9 L Glucose 270 H POC Capillary Glucose 249 H 214 H Calcium 10.3 H Magnesium 1.9 Total Bilirubin 0.9 AST 30 ALT 18 Alkaline Phosphatase 150 H Total Protein 7.5 Albumin 4.0 Quality VTE Prophylaxis VTE prophylaxis: pharmacologic ordered Hospitalist [facility] Advance Care Plan I have confirmed that the patient's Advanced Care Plan is present, code status is documented, or surrogate decision maker is listed in patient medical record.: Yes Medication Reconciliation I have utilized all available resources to obtain, update and review the patients current medications (includes all prescriptions, OTC, herbals, cannabis, and nutritional supplements).: Yes
[2025-08-14] MEDS: EPOETIN ALFA-EPBX 10,000 UNITS/ML VIAL 10000 UNITS IV PUSH (11:27)
--- NOTE | 2025-08-14 12:25 | P.PNNP_ITS ---
Progress Note: A&P Assessment and Plan (1) ESRD (end stage renal disease): Code(s): N18.6 - End stage renal disease Status: Chronic Assessment and Plan: * HD today * resume Tue/Tue/Tuesday dialysis schedule this week * follow electrolytes, volume status, and clearance * high calcium likely related to not getting Sensipar here/secondary hyperparathyroidism * will transition to [facility] with outpatient dialysis treatments (2) Pneumonia: Code(s): J18.9 - Pneumonia, unspecified organism Status: Acute Assessment and Plan: * recent CXR (08/10) results noted: * CHF * superimposed bilateral lower lobe pneumonia * findings appear progressed compared to the previous study * associated with some worsening of chronic hypotension, elevated WBC, and low grade fevers * follow culture data * on antibiotics (3) Hypotension: Code(s): I95.9 - Hypotension, unspecified Status: Acute Assessment and Plan: * acute on chronic * recent and previous echocardiograms noted * baseline systolic BP runs in the 90s for the last month * recently started on midodrine therapy from recent [facility] admission * recent low grade fevers and elevated WBC concerning for new infection..... * WBC better today * CXR with bilateral lower lobe antibiotics * culture data * on antibiotics * remains on midodrine therapy * PRN IV albumin while hospitalized (4) Atrial fibrillation: Qualifiers: Atrial fibrillation type: permanent Qualified Code(s): I48.21 - Permanent atrial fibrillation Code(s): I48.91 - Unspecified atrial fibrillation Status: Acute Assessment and Plan: * known history * rate control strategy * metoprolol use complicated by chronic hypotension * already on anticoagulation (5) AMS (altered mental status): Qualifiers: Altered mental status type: transient alteration of awareness Qualified Code(s): R40.4 - Transient alteration of awareness Code(s): R41.82 - Altered mental status, unspecified Status: Acute Assessment and Plan: * fluctuates even at baseline * despite underlying dementia, usually alert and oriented x 1 - 2 (although not consistently) * head CT negative * due to hypotension versus infection (i.e. pneumonia?) * Neurology following * EEG results noted * continue supportive therapy (6) Acute hypoxic respiratory failure: Code(s): J96.01 - Acute respiratory failure with hypoxia Status: Acute Assessment and Plan: * slowly improving * as noted since admission * presumably due to volume overload (CHF + pulmonary edema) and recurrent pneumonia * admission imaging noted * fluid removal challenging in the context of hypotension (presumably a problem during recent hospitalization at [facility] as well) * ongoing fluid removal with HD/DUF as tolerated * recent CXR noted * on/off supplemental oxygen (7) Urinary tract infection: Qualifiers: Hematuria presence: without hematuria Urinary tract infection type: a cute cystitis Qualified Code(s): N30.00 - Acute cystitis without hematuria Code(s): N39.0 - Urinary tract infection, site not specified Status: Acute Assessment and Plan: * admission UA suggestive * however, no urine culture done at that time * on antibiotics (8) Volume overload: Code(s): E87.70 - Fluid overload, unspecified Status: Acute Assessment and Plan: * as suggested by evidence on admission: * imaging with CHF findings and pulmonary edema * ~ 8kg above dry weight per outpatient dialysis clinic when seen on 07/29 * aggressive fluid removal with HD and DUF as tolerated by hemodynamics * Echo from admission to [facility] noted (07/23/25): * left ventricle is normal in size with estimated EF of 50 - 55% * right ventricular systolic function is at the lower limit of normal * moderate to severe aortic stenosis * no evidence of aortic valve regurgitation * mild to moderate mitral and pulmonic regurgitation * no evidence of mitral stenosis * moderate tricuspid regurgitation * moderate pulmonary hypertension * mildly dilated ascending aorta * limited Echo done here (08/05) reviewed: * normal biventricular size and systolic function * aortic valve is trileaflet and calcified * visually appears to be mild to moderate aortic stenosis * mild mitral regurgitation * almost 13L negative since admission * follow respiratory status and clinical exam (9) Anemia: Qualifiers: Anemia type: due to chronic kidney disease Chronic kidney disease stage: on chronic dialysis Qualified Code(s): N18.6 - End stage renal disease; D63.1 - Anemia in chronic kidney disease; Z99.2 - Dependence on renal dialysis Code(s): D64.9 - Anemia, unspecified Status: Chronic Assessment and Plan: * due to ESRD and acute illness * anemia studies noted: * evidence of mild iron deficiency * follow trend of H/H * Epogen with HD (10) DM type 2 (diabetes mellitus, type 2): 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 Will continue to follow. L Subjective Date/time seen: 08/14/25 12:25 Interval history: Following for end stage renal disease on hemodialysis. Tolerating dialysis treatment at the time of my visit (seen on HD at 12:15pm); mentation seems about the same/stable; some difficult cannulating arterial limb of AVG so needle in AVG and one port of HD catheter being used for treatment; no othe issues/events overnight other than her chronic hypotension. Exam 2 Narrative: General: elderly but WD/WN female in NAD Heart: IRRR, normal S1 and S2; no rub Lungs: coarse breath sounds; decreased at bases Abdomen: obese but soft, nontender, nondistended, positive bowel sounds Extremities: no cyanosis or clubbing; trace edema Skin: warm and intact Objective Data Vital Signs Vital Signs: Vital Signs Temp Pulse Resp BP Pulse Ox O2 Del Method 08/14/25 12:15 91 123/81 08/14/25 12:00 115 H 08/14/25 12:00 92 126/58 L 08/14/25 11:45 113 H 143/108 H 08/14/25 11:30 133 H 82/66 L 08/14/25 11:15 98 123/52 L 08/14/25 11:00 79 112/58 L 08/14/25 10:45 103 H 114/45 L 08/14/25 10:30 118 H 86/69 L 08/14/25 10:15 106 H 74/52 L 08/14/25 10:00 116 H 93/62 L 08/14/25 09:45 93 82/47 L 08/14/25 09:30 76 160/91 H 08/14/25 09:15 97 129/68 08/14/25 09:00 98 132/61 08/14/25 08:55 116 H 101/68 08/14/25 08:22 97.7 F 91 24 H 101/54 L 97 08/14/25 08:00 122 H 08/14/25 05:59 121 H 08/14/25 04:32 97.7 F 57 L 22 H 108/59 L 96 08/14/25 04:00 121 H 08/14/25 00:00 121 H 08/13/25 21:59 97.4 F L 103 H 22 H 86/52 L 97 08/13/25 20:00 124 H 08/13/25 20:00 Room Air Intake/Output Intake/Output: Intake & Output 08/11/25 08/12/25 08/13/25 08/14/25 23:59 23:59 23:59 23:59 Intake Total 1090 480 340 760 Output Total 20 2000 0 1000 Balance 1070 -1520 340 -240 Meds/Results Medications: Active Medications Generic Name Dose Route Start Last Admin Trade Name Freq PRN Reason Stop Dose Admin Acetaminophen 650 mg 07/29/25 15:59 08/13/25 17:42 Acetaminophen 325 Mg Tablet PO 650 mg Q4H PRN Administration Mild Pain (1-3) or Fever Acetaminophen 650 mg 07/29/25 17:04 Acetaminophen 650 Mg Suppository RECTAL Q6H PRN Mild Pain (1-3) or Fever Albuterol/Ipratropium 3 ml 07/29/25 19:52 Ipratropium 0.5 Mg/Albuterol Sulfate 2.5 Mg (Base) Ampul.Neb 3 Ml INHALATION Q4HRT PRN Shortness of Breath. Amoxicillin/Clavulanate Potassium 500 mg 08/13/25 18:00 08/14/25 13:14 Amoxicillin/Clavulanate K Susp 500 Mg/6.25 Ml Ud PO 08/17/25 09:01 500 mg Q12HR BIANKA Administration Apixaban 5 mg 07/30/25 09:00 08/14/25 13:12 Apixaban 5 Mg Tablet PO 5 mg BID BIANKA Administration Aripiprazole 1 mg 07/31/25 21:00 08/13/25 21:45 Aripiprazole 1 Mg Tablet PO 1 mg HS BIANKA Administration Aripiprazole 2 mg 07/31/25 21:00 08/13/25 21:45 Aripiprazole 2 Mg Tablet BY MOUTH 2 mg HS BIANKA Administration Buspirone HCl 5 mg 07/31/25 17:00 08/14/25 13:12 Buspirone Hcl 5 Mg Tablet BY MOUTH 5 mg TID BIANKA Administration Dextrose 12.5 gm 07/29/25 19:52 Dextrose 50% 25 Gm/50 Ml Syringe IV PUSH PRN PRN Hypoglycemia Protocol Docusate Sodium 200 mg 07/31/25 17:00 08/14/25 13:13 Docusate Sodium 100 Mg Capsule PO 200 mg BID BIANKA Administration Doxycycline Hyclate 100 mg 08/10/25 21:00 08/14/25 13:14 Doxycycline Hyclate 100 Mg Tablet PO 08/15/25 09:01 100 mg Q12HR BIANKA Administration Epoetin Austin-epbx 10,000 units 08/14/25 18:08 08/14/25 11:27 Epoetin [place]-Epbx 10,000 Units/Ml Vial IV PUSH 08/14/25 18:09 10,000 units ONCE ONE Administration Glucagon 1 mg 07/29/25 19:52 Glucagon For Inj 1 Mg Vial IM PRN PRN Hypoglycemia Protocol Glucose 15 gm 07/29/25 19:52 Glucose Oral Gel 15 Gm Of Glucse In 37.5 Gm Tube PO PRN PRN Hypoglycemia Protocol Dextrose 1,000 mls @ 100 mls/hr 07/29/25 19:52 Dextrose 5% 1,000 Ml IVPB PRN PRN Hypoglycemia Protocol Albumin Human 50 mls @ 999 mls/hr 07/30/25 05:49 08/12/25 09:59 Albutein IVPB 08/29/25 05:48 999 mls/hr Q10M PRN Administration HYPOTENSION Insulin Aspart 4 - 8 units 07/31/25 08:00 08/14/25 13:22 Insulin Aspart (*Bkc) 100 Units/Ml SUB-Q Not Given TIDWM BIANKA Protocol Insulin Aspart 2 - 4 units 07/30/25 21:00 08/13/25 21:43 Insulin Aspart (*Bkc) 100 Units/Ml SUB-Q 2 units HS BIANKA Administration Protocol Insulin Glargine 30 units 08/11/25 08:00 08/14/25 08:05 Insulin Glargine (*Bkc) 100 Units/Ml SUB-Q 30 units DAILY@0800 BIANKA Administration Memantine 5 mg 08/09/25 09:00 08/14/25 13:12 Memantine 5 Mg Tablet PO 5 mg Q12HR BIANKA Administration Metoprolol Tartrate 25 mg 08/03/25 21:00 08/14/25 13:13 Metoprolol Tartrate 25 Mg Tablet PO 25 mg Q12HR BIANKA Administration Midodrine 10 mg 08/04/25 06:00 08/14/25 13:12 Midodrine Hcl 10 Mg Tablet PO 10 mg Q8HR BIANKA Administration Miscellaneous Information 1 each 08/10/25 00:01 Please Renew Methyphnidate. Per [employer] Procedure, It Will Discontinue If Not Renewed. XX 09/09/25 00:00 CLARIFY BIANKA Naloxone HCl 0.1 mg 07/29/25 20:26 Naloxone Hcl 0.4 Mg/Ml Vial IV PUSH Q5MIN PRN Sedation Non-Formulary Medication 30 mg 08/12/25 16:30 08/13/25 17:27 Tenapanor [Xphozah] PO 09/11/25 16:29 30 mg DAILY@1630 BIANKA Administration Ondansetron HCl 4 mg 07/29/25 15:59 08/09/25 15:47 Ondansetron Inj 4 Mg/2 Ml Vial IV PUSH 4 mg Q4H PRN Administration Nausea Pantoprazole Sodium 40 mg 07/30/25 09:00 08/14/25 13:15 Pantoprazole Sodium Iv 40 Mg Vial IV PUSH 40 mg QAM BIANKA Administration Phenyleph/Shark Oil/Min Oil/Petrol 1 applic 08/12/25 09:00 08/14/25 13:15 Phenyleph/Shark Oil/Mo/Petrol Cream 26 Gm RECTAL 1 applic DAILY BIANKA Administration Rosuvastatin Calcium 10 mg 08/01/25 09:00 08/14/25 13:14 Rosuvastatin 10 Mg Tablet PO 10 mg DAILY BIANKA Administration Saccharomyces Boulardii 250 mg 08/12/25 17:00 08/14/25 13:13 Saccharomyces Boulardii 250 Mg Capsule PO 250 mg BID BIANKA Administration Sertraline HCl 50 mg 08/01/25 09:00 08/14/25 13:12 Sertraline Hcl 50 Mg Tablet PO 50 mg DAILY BIANKA Administration Sodium Chloride 20 ml 07/29/25 15:58 Central Line Flush IV PUSH PRN PRN after blood draws Radiology Results: ITS Impressions Head CT 07/29/25 17:35 Impression: 1.No acute intracranial abnormality. Chest/Abdomen/Pelvis CT 07/29/25 18:21 IMPRESSION: CHEST- 1. Mild interstitial pulmonary edema with small left pleural effusions and bibasilar atelectasis. 2. No other acute abnormality. ABDOMEN/PELVIS- 1. No acute abnormality. 2. Additional findings as above. Chest X-Ray 08/13/25 09:23 IMPRESSION: 1.Patchy opacities in the right mid and lower lungs similar to the prior study from 08/10/2025. Follow-up is recommended. 2.Patchy opacities in the left lower lung similar to the prior study from 08/10/2025. Labs Labs: Laboratory Tests 08/14/25 04:19 08/14/25 04:19 Calcium 10.3 H Magnesium 1.9 Total Bilirubin 0.9 AST 30 ALT 18 Alkaline Phosphatase 150 H Total Protein 7.5 Albumin 4.0 Microbiology 08/10/25 11:57 Blood Blood Culture - Preliminary 08/10/25 12:03 Blood Blood Culture - Preliminary
[2025-08-14] MEDS: APIXABAN 5 MG TABLET PO ×2 (13:12→17:28)
[2025-08-14] MEDS: MEMANTINE 5 MG TABLET PO ×2 (13:12→21:33)
[2025-08-14] MEDS: SERTRALINE HCL 50 MG TABLET PO (13:12)
[2025-08-14] MEDS: SACCHAROMYCES BOULARDII 250 MG CAPSULE PO ×2 (13:13→17:28)
[2025-08-14] MEDS: DOCUSATE SODIUM 100 MG CAPSULE 200 MG PO ×2 (13:13→17:28)
[2025-08-14] MEDS: ROSUVASTATIN 10 MG TABLET PO (13:14)
[2025-08-14] MEDS: DOXYCYCLINE HYCLATE 100 MG TABLET PO ×2 (13:14→21:33)
[2025-08-14] MEDS: AMOXICILLIN/CLAVULANATE K SUSP 500 MG/6.25 ML UD PO ×2 (13:14→21:35)
[2025-08-14] MEDS: PANTOPRAZOLE SODIUM IV 40 MG VIAL IV PUSH (13:15)
[2025-08-14] MEDS: PHENYLEPH/SHARK OIL/MO/PETROL CREAM 26 GM 1 APPLIC RECTAL (13:15)
[2025-08-14] MEDS: [UNRECOGNIZED DRUG - OTHER] PO (17:29)
[2025-08-14] MEDS: INSULIN ASPART (*BKC) 100 UNITS/ML SUB-Q (17:29)
[2025-08-14] MEDS: TENAPANOR 30 MG PO (17:29)
[2025-08-15] VITALS (13 sets, daily range): BP systolic 88–111; BP diastolic 48–70; PULSE 63–120; RESP 16; TEMP 36.4–36.7; O2SAT 92–97
[2025-08-15 04:43] LABS: Hematocrit 33.1 % (37.0-47.0); Hemoglobin 9.6 g/dL (12.0-15.0); Immature Granulocyte Percent A 0.6 % (0-0.5); Lymphocytes Absolute Auto 1.04 K/mm3 (0.9-3.2); Mean Corpuscular HGB Conc 29.0 g/dl (32-36); Mean Corpuscular Hemoglobin 28.0 pg (26-34); Mean Corpuscular Volume 96.5 fl (80-100); Nucleated Red Blood Cells Absolute Auto 0.000 K/mm3 (0.0-0.012); Nucleated Red Blood Cells Perc 0.0 % (0.0-0.2); Platelet Count Result 309 k/mm3 (150-375); Red Blood Count 3.43 M/mm3 (4.2-5.4); White Blood Count 9.8 K/mm3 (4.5-10.0)
[2025-08-15] MEDS: MIDODRINE HCL 10 MG TABLET PO ×4 (04:45→20:36)
[2025-08-15 04:57] LABS: Alanine Aminotransferase 16 U/L (6-35); Albumin Level 4.1 g/dL (3.5-5.1); Alkaline Phosphatase 130 U/L (38-126); Anion Gap 15 mmol/L (4-12); Aspartate Amino Transferase 28 U/L (14-36); Bilirubin,Total 0.9 mg/dL (0.2-1.3); Blood Urea Nitrogen 37 mg/dL (7-17); Calcium 11.3 mg/dL (8.4-10.2); Carbon Dioxide 26 mmol/L (22-30); Chloride 95 mmol/L (98-107); Estimated CRCL calculation 16 ml/min; Estimated Glomerular Filt Rate 16; Glucose 221 mg/dL (65-110); Magnesium 2.0 mg/dL (1.6-2.3); Potassium 3.8 mmol/L (3.4-5.0); Sodium 136 mmol/L (137-145); Total Protein 7.4 g/dL (6.3-8.2)
[2025-08-15 05:21] LABS: Anisocytosis 1+; Hypochromasia 1+
[2025-08-15 05:22] LABS: Ovalocytes Occasional; Schistocytes None Seen
--- NOTE | 2025-08-15 08:01 | P.PNIM_ITS ---
Progress Note: A&P Assessment and Plan (1) Leukocytosis: Code(s): D72.829 - Elevated white blood cell count, unspecified Status: Acute Assessment and Plan: WBC improved 15.7>9.2<11.3 07/30: CT scan of the chest abdomen follows showed interstitial edema with small left pleural effusion. Abdomen and pelvis did not show any acute abnormality -records have been requested from [facility] -february after repeat an echocardiogram if it was not done at [facility] - Zosyn and vancomycin (07/29) will continue for a total of 7 days, discontinued on 08/05 -07/29: Preliminary blood cultures negative x2 -08/04-Hr 100. 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 No acute infarct or hemorrhage. No midline shift or mass effect. No extra-axial fluid collections. Bilateral mastoid effusions noted. Severe left maxillary sinusitis with underlying polyp formation suspected. No acute fracture. No significant facial or scalp soft tissue swelling evident. No radiopaque foreign body is seen. EEG results: 1. Mild diffuse background slowing and frontal intermittent rhythmic delta activity suggestive generalized encephalopathy or bihemispheric lesion.2. Focal slowing and sharp wave activity noted over the left temporal area. Focal slowing may raise possibility of underlying structural lesion. Sharp transients are considered nonspecific focal abnormality. However such abnormalities may be seen many elderly subjects and hence clinical and if necessary radiographic correlation may be helpful. PLAN Neurology following, appreciate recommendations, added Namenda --Follow up with neurology in clinic --Follow Blood pressure, continue midodrine 10mg TID. (4) ESRD (end stage renal disease): Code(s): N18.6 - End stage renal disease Status: Chronic Assessment and Plan: End-stage renal disease on dialysis, Tuesday, Tuesday, Tuesday -after discussion with Nephrology, seems like patient has not been optimally dialyzed at [facility] and at outpatient dialysis center due to hypotension. Patient was 8-10 L positive from her dry weight -07/30: Dialyzed with 2500 mL in fluid removal, she did require Levophed and albumin during dialysis. -07/31: Dialyzed with 4000 mL in fluid removal -08/01: Dialyzed with 4000 mL in fluid removed 08/02-dialyzed with 4000 mL and fluid removal 08/03-dialyzed with 3000 food review -08/05 Pt recieved dialysis 08/07: Received dialysis 08/09: HD 3.5 hr treatment performed, 1,300ml taken off. 08/10: Hypotensive with SBP 73 after HD 08/09, temp noted 08/09 just after 8 AM (100.0) and just prior to noon (100.2). 08/12: HD today, successful. BP stable through treatment. 08/14 HD today PLAN --Per nephro, she will resume dialysis MWF --Liberalized diet --Planning (5) Hypotension: Code(s): I95.9 - Hypotension, unspecified Status: Acute Assessment and Plan: Multifactorial, infection, hypotensive with dialysis 08/07: BPs have been soft, but stable here. Remains on midodrine therapy 08/09: During dialysis, pts low again, 80/50's. Albumin given in dialysis per chart. Normalized now. Continue VS q4 hrs and midodrine. 08/11: Continue to monitor BP, pt dx with PNA, may be contributing. Pt BP still on the low end, midodrine continues to be given. x1 episode today at 85/45, this was right before Midodrine was given. Stable since. 08/12: BP has been stable today, continue midodrine. 08/13: BP has continued to be soft, as per baseline. Continue midodrine. 08/14: BP 84/44 with dialysis. Diarrhea seems resolved 08/15 BP 91/51, giving 250ml bolus, additional 500ml today since still mild hypotension (6) CHF (congestive heart failure): Qualifiers: Heart failure chronicity: acute on chronic Heart failure type: unspecified Qualified Code(s): I50.9 - Heart failure, unspecified Code(s): I50.9 - Heart failure, unspecified Status: Acute Assessment and Plan: Pulmonary edema on chest x-ray, could be related to CHF likely 2/2 Fluid overloaded 2/2 inadequate dialysis Dialysis per Nephrology 07/23/2025: Echocardiogram from [facility] * left ventricle is normal in size with estimated EF of 50 - 55% * right ventricular systolic function is at the lower limit of normal * moderate to severe aortic stenosis * no evidence of aortic valve regurgitation * mild to moderate mitral and pulmonic regurgitation * no evidence of mitral stenosis * moderate tricuspid regurgitation * moderate pulmonary hypertension * mildly dilated ascending aorta 08/07: -BLE edema persistent, pt does not answer if she has SOB or CP. Will continue to assess. Continue HD and neph f/u recs 08/08: Denies SOB and CP today. BLE hard, but not sure would call them edematous. Will discuss with pt daughter Shima. 08/09: Discussed BLE with pt's daughter today, plan for outpatient f/u with established vascular team, Dr. Lamas. Fluid continues to be taken off during dialysis so unlikely related to this. Pt continues to deny CP and SOB to me, although not oriented (baseline). 08/11: Continues to deny SOB. Continue to hold lasix due to hypotension. Continue to monitor. (7) DM type 2 (diabetes mellitus, type 2): Qualifiers: Diabetes mellitus complication status: without complication Diabetes mellitus smoking pipe maker insulin use: without smoking pipe maker use Qualified Code(s): E11.9 - Type 2 diabetes mellitus without complications Code(s): E11.9 - Type 2 diabetes mellitus without complications Status: Chronic Assessment and Plan: Home meds:Aspart SSI, Lantus 25 daily --Continue Accu-Cheks and sliding scale insulin --Continue Lantus 30 daily, add mealtime insulin Recent history 08/07: -Per med rec, pt has only been getting 10units lantus in the AMs total. Reviewed with nursing and this was confirmed. Since AM blood sugars have been elevated, will increase pt lantus from 10 units daily to 15 units. -Continue to trend sugars via CMP and POC testing 08/08: -Per RN, verified that pt home dose of lantus is 25 in the AM. Will switch her to this to start tomorrow AM due to persistent high AM sugars. 08/10: FBS 226, increased basal lantus from 25 to 30 U daily 08/11: FBS 192 today, starting to decrease, will continue to monitor due to poor appetite. 08/12: FBS 189 today but then went right to HD. When returned, BS 158, will hold AM lantus dose today, to resume tomorrow. 08/13: FBS 235 today, likely higher due to holding of her insulin yesterday d/t HD. Resume lantus today. 08/14: FBS 214, 117 before lunch. Had dialysis today (8) Atrial fibrillation: Qualifiers: Atrial fibrillation type: permanent Qualified Code(s): I48.21 - Permanent atrial fibrillation Code(s): I48.91 - Unspecified atrial fibrillation Status: Acute Assessment and Plan: History of atrial fibrillation --Home meds: Eliquis and metoprolol 08/04/2025: Echocardiogram Summary ATRIAL FIBRILLATION WITH RAPID VENTRICULAR RESPONSE INCOMPLETE LEFT BUNDLE BRANCH BLOCK LEFT VENTRICULAR HYPERTROPHY WITH ST-T CHANGE MINIMAL Q WAVES- HIGH LATERAL LEADS BASELINE ARTIFACT- II, III, V1-V3 ABNORMAL ECG Compared to ECG 07/29/2025 12:56:03 HEART RATE HAS INCREASED 08/09: -Called to the bedside post dialysis due to pt being in afib rvr 110-130's. Pt asymptomatic, BP 103/51 which is her baseline. Pt missed AM dose of metoprolol 25mg, given when she returned to room. Gave x1 dose of Lopressor 2.5mg IV which helped get heart rate down to 100's. Will continue to monitor. Per daughter, pt runs at this rate at her baseline. PLAN --Continue on telemetry monitoring --Continue home meds (9) Diarrhea: Code(s): R19.7 - Diarrhea, unspecified Status: Acute Assessment and Plan: Hx IBS diarrhea resolved. C-dff negative 08/11 Plan Admitted 07/29 from [place] for altered mental status and hypotension. Initially admitted to the ICU on pressors. Cultures have been negative. Chest CT 07/29 showed mild interstitial edema with small pleural effusions Renal following for HD Time Spent With Patient Time: 56 minutes Subjective Date/time seen: 08/15/25 08:01 Interval history: BP 91/51 this morning, gave 250ml saline. Patient drinking minimally. Diarrhea resolved Liberalized diet since eating minimally Dry weight previously 260 per daughter at bedside, now down to 210 Resuming methylphenidate BID with meals. Increased metoprolol from 25<37.5mg BID since more tachycardic today prior to starting 500ml NS tonight since BP still soft Review of Systems Review of Systems: All systems reviewed & are unremarkable except as noted in HPI and below ROS unobtainable: Yes unobtainable due to mental status (Limited, A&O x1) Exam Narrative: General - Awake and alert. No acute distress Eyes - PERRLA, EOM intact ENT - No thrush, No erythema Neck - No noticeable or palpable swelling Lymph Nodes - No lymphadenopathy Cardiovascular - RRR no m/r/g, no JVD Lungs: Clear to auscultation, No wheezing, use of accessory muscles, no crackles Skin - Skin warm and dry, no wounds or rashes Abdomen - Normal bowel sounds, abdomen soft and nontender Extremities - No edema, cyanosis or clubbing Musculoskeletal - 5/5 strength, normal range of motion, no swollen or erythematous joints. Neurological ? Alert and oriented x 1, CN 2-12 grossly intact. Intermittently responds, 2/5 weakness all extremities Psych: Normal mood and affect Objective Data Vital Signs Vital Signs: Vital Signs - 24 hr 08/14/25 08:22 08/14/25 08:55 08/14/25 09:00 Temperature 97.7 F Pulse Rate 91 116 H 98 Respiratory Rate 24 H Blood Pressure 101/54 L 101/68 132/61 Pulse Oximetry 97 Oxygen Delivery 08/14/25 09:15 08/14/25 09:30 08/14/25 09:45 Temperature Pulse Rate 97 76 93 Respiratory Rate Blood Pressure 129/68 160/91 H 82/47 L Pulse Oximetry Oxygen Delivery 08/14/25 10:00 08/14/25 10:15 08/14/25 10:30 Temperature Pulse Rate 116 H 106 H 118 H Respiratory Rate Blood Pressure 93/62 L 74/52 L 86/69 L Pulse Oximetry Oxygen Delivery 08/14/25 10:45 08/14/25 11:00 08/14/25 11:15 Temperature Pulse Rate 103 H 79 98 Respiratory Rate Blood Pressure 114/45 L 112/58 L 123/52 L Pulse Oximetry Oxygen Delivery 08/14/25 11:30 08/14/25 11:45 08/14/25 12:00 Temperature Pulse Rate 133 H 113 H 92 Respiratory Rate Blood Pressure 82/66 L 143/108 H 126/58 L Pulse Oximetry Oxygen Delivery 08/14/25 12:00 08/14/25 12:15 08/14/25 12:27 Temperature Pulse Rate 115 H 91 79 Respiratory Rate Blood Pressure 123/81 84/44 L Pulse Oximetry Oxygen Delivery 08/14/25 12:35 08/14/25 13:00 08/14/25 13:13 Temperature 98.6 F Pulse Rate 99 125 H Respiratory Rate 24 H Blood Pressure 137/93 H Pulse Oximetry 96 Oxygen Delivery Room Air 08/14/25 14:00 08/14/25 16:00 08/14/25 18:00 Temperature 97.6 F 98.0 F Pulse Rate 91 111 H 108 H Respiratory Rate 15 17 Blood Pressure 95/62 L 92/62 L Pulse Oximetry 95 97 Oxygen Delivery 08/14/25 20:00 08/14/25 20:00 08/14/25 21:30 Temperature 97.6 F Pulse Rate 92 74 Respiratory Rate 18 Blood Pressure 95/57 L Pulse Oximetry 93 Oxygen Delivery Room Air 08/14/25 21:32 08/15/25 00:28 08/15/25 00:32 Temperature 97.8 F Pulse Rate 74 92 106 H Respiratory Rate 16 Blood Pressure 88/48 L Pulse Oximetry 96 Oxygen Delivery 08/15/25 04:00 08/15/25 04:46 Temperature 97.8 F Pulse Rate 114 H 100 Respiratory Rate 16 Blood Pressure 91/51 L Pulse Oximetry 97 Oxygen Delivery Intake/Output Intake/Output: Intake & Output 08/12/25 08/13/25 08/14/25 08/15/25 23:59 23:59 23:59 23:59 Intake Total 480 340 880 200 Output Total 2000 0 1000 Balance -1520 340 -120 200 Meds/Results Medications: Active Medications Generic Name Dose Route Start Last Admin Trade Name Freq PRN Reason Stop Dose Admin Acetaminophen 650 mg 07/29/25 15:59 08/13/25 17:42 Acetaminophen 325 Mg Tablet PO 650 mg Q4H PRN Administration Mild Pain (1-3) or Fever Acetaminophen 650 mg 07/29/25 17:04 Acetaminophen 650 Mg Suppository RECTAL Q6H PRN Mild Pain (1-3) or Fever Albuterol/Ipratropium 3 ml 07/29/25 19:52 Ipratropium 0.5 Mg/Albuterol Sulfate 2.5 Mg (Base) Ampul.Neb 3 Ml INHALATION Q4HRT PRN Shortness of Breath. Amoxicillin/Clavulanate Potassium 500 mg 08/13/25 18:00 08/14/25 21:35 Amoxicillin/Clavulanate K Susp 500 Mg/6.25 Ml Ud PO 08/17/25 09:01 500 mg Q12HR BIANKA Administration Apixaban 5 mg 07/30/25 09:00 08/14/25 17:28 Apixaban 5 Mg Tablet PO 5 mg BID BIANKA Administration Aripiprazole 1 mg 07/31/25 21:00 08/14/25 21:33 Aripiprazole 1 Mg Tablet PO 1 mg HS BIANKA Administration Aripiprazole 2 mg 07/31/25 21:00 08/14/25 21:33 Aripiprazole 2 Mg Tablet BY MOUTH 2 mg HS BIANKA Administration Buspirone HCl 5 mg 07/31/25 17:00 08/14/25 17:28 Buspirone Hcl 5 Mg Tablet BY MOUTH 5 mg TID BIANKA Administration Dextrose 12.5 gm 07/29/25 19:52 Dextrose 50% 25 Gm/50 Ml Syringe IV PUSH PRN PRN Hypoglycemia Protocol Docusate Sodium 200 mg 07/31/25 17:00 08/14/25 17:28 Docusate Sodium 100 Mg Capsule PO 200 mg BID BIANKA Administration Doxycycline Hyclate 100 mg 08/10/25 21:00 08/14/25 21:33 Doxycycline Hyclate 100 Mg Tablet PO 08/15/25 09:01 100 mg Q12HR BIANKA Administration Glucagon 1 mg 07/29/25 19:52 Glucagon For Inj 1 Mg Vial IM PRN PRN Hypoglycemia Protocol Glucose 15 gm 07/29/25 19:52 Glucose Oral Gel 15 Gm Of Glucse In 37.5 Gm Tube PO PRN PRN Hypoglycemia Protocol Dextrose 1,000 mls @ 100 mls/hr 07/29/25 19:52 Dextrose 5% 1,000 Ml IVPB PRN PRN Hypoglycemia Protocol Albumin Human 50 mls @ 999 mls/hr 07/30/25 05:49 08/12/25 09:59 Albutein IVPB 08/29/25 05:48 999 mls/hr Q10M PRN Administration HYPOTENSION Insulin Aspart 4 - 8 units 07/31/25 08:00 08/14/25 17:29 Insulin Aspart (*Bkc) 100 Units/Ml SUB-Q 4 units TIDWM BIANKA Administration Protocol Insulin Aspart 2 - 4 units 07/30/25 21:00 08/14/25 21:33 Insulin Aspart (*Bkc) 100 Units/Ml SUB-Q Not Given HS BIANKA Protocol Insulin Glargine 30 units 08/11/25 08:00 08/14/25 08:05 Insulin Glargine (*Bkc) 100 Units/Ml SUB-Q 30 units DAILY@0800 BIANKA Administration Memantine 5 mg 08/09/25 09:00 08/14/25 21:33 Memantine 5 Mg Tablet PO 5 mg Q12HR BIANKA Administration Metoprolol Tartrate 25 mg 08/03/25 21:00 08/14/25 21:32 Metoprolol Tartrate 25 Mg Tablet PO 25 mg Q12HR BIANKA Administration Midodrine 10 mg 08/15/25 04:00 08/15/25 04:45 Midodrine Hcl 10 Mg Tablet PO 10 mg Q6H BIANKA Administration Miscellaneous Information 1 each 08/10/25 00:01 Please Renew Methyphnidate. Per [employer] Procedure, It Will Discontinue If Not Renewed. XX 09/09/25 00:00 CLARIFY BIANKA Naloxone HCl 0.1 mg 07/29/25 20:26 Naloxone Hcl 0.4 Mg/Ml Vial IV PUSH Q5MIN PRN Sedation Non-Formulary Medication 30 mg 08/12/25 16:30 08/14/25 17:29 Tenapanor [Xphozah] PO 09/11/25 16:29 30 mg DAILY@1630 BIANKA Administration Ondansetron HCl 4 mg 07/29/25 15:59 08/09/25 15:47 Ondansetron Inj 4 Mg/2 Ml Vial IV PUSH 4 mg Q4H PRN Administration Nausea Pantoprazole Sodium 40 mg 07/30/25 09:00 08/14/25 13:15 Pantoprazole Sodium Iv 40 Mg Vial IV PUSH 40 mg QAM BIANKA Administration Phenyleph/Shark Oil/Min Oil/Petrol 1 applic 08/12/25 09:00 08/14/25 13:15 Phenyleph/Shark Oil/Mo/Petrol Cream 26 Gm RECTAL 1 applic DAILY BIANKA Administration Rosuvastatin Calcium 10 mg 08/01/25 09:00 08/14/25 13:14 Rosuvastatin 10 Mg Tablet PO 10 mg DAILY BIANKA Administration Saccharomyces Boulardii 250 mg 08/12/25 17:00 08/14/25 17:28 Saccharomyces Boulardii 250 Mg Capsule PO 250 mg BID BIANKA Administration Sertraline HCl 50 mg 08/01/25 09:00 08/14/25 13:12 Sertraline Hcl 50 Mg Tablet PO 50 mg DAILY BIANKA Administration Sodium Chloride 20 ml 07/29/25 15:58 Central Line Flush IV PUSH PRN PRN after blood draws Radiology Results: ITS Impressions Head CT 07/29/25 17:35 Impression: 1.No acute intracranial abnormality. Chest/Abdomen/Pelvis CT 07/29/25 18:21 IMPRESSION: CHEST- 1. Mild interstitial pulmonary edema with small left pleural effusions and bibasilar atelectasis. 2. No other acute abnormality. ABDOMEN/PELVIS- 1. No acute abnormality. 2. Additional findings as above. Chest X-Ray 08/13/25 09:23 IMPRESSION: 1.Patchy opacities in the right mid and lower lungs similar to the prior study from 08/10/2025. Follow-up is recommended. 2.Patchy opacities in the left lower lung similar to the prior study from 08/10/2025. Labs Labs: Laboratory Results - last 24 hr 08/14/25 08/14/25 08/14/25 07:57 13:07 16:13 WBC RBC Hgb Hct MCV MCH MCHC RDW Plt Count MPV Immature Gran % (Auto) Neut % (Auto) Lymph % (Auto) [place] % (Auto) Eos % (Auto) Baso % (Auto) Lymph # (Auto) [place] # (Auto) Eos # (Auto) Baso # (Auto) Abs Immat Gran (auto) Absolute Neuts (auto) Absolute Nucleated RBC Band Neutrophils % Nucleated RBC % Platelet Estimate Hypochromasia Anisocytosis Ovalocytes Schistocytes Sodium Potassium Chloride Carbon Dioxide Anion Gap BUN Creatinine Estim Creat Clear Calc Estimated GFR Glucose POC Capillary Glucose 214 H 117 H 220 H Calcium Magnesium Total Bilirubin AST ALT Alkaline Phosphatase Total Protein Albumin 08/14/25 08/15/25 08/15/25 21:21 04:06 07:53 WBC 9.8 RBC 3.43 L Hgb 9.6 L Hct 33.1 L MCV 96.5 MCH 28.0 MCHC 29.0 L RDW 17.1 H Plt Count 309 MPV 10.5 H Immature Gran % (Auto) 0.6 H Neut % (Auto) 77.5 H Lymph % (Auto) 10.6 L [place] % (Auto) 9.3 H Eos % (Auto) 1.5 Baso % (Auto) 0.5 Lymph # (Auto) 1.04 [place] # (Auto) 0.9 H Eos # (Auto) 0.2 Baso # (Auto) 0.1 Abs Immat Gran (auto) 0.06 H Absolute Neuts (auto) 7.6 H Absolute Nucleated RBC 0.000 Band Neutrophils % Not Reportable Nucleated RBC % 0.0 Platelet Estimate Adequate Hypochromasia 1+ Anisocytosis 1+ Ovalocytes Occasional Schistocytes None seen Sodium 136 L Potassium 3.8 Chloride 95 L Carbon Dioxide 26 Anion Gap 15 H BUN 37 H D Creatinine 2.93 H Estim Creat Clear Calc 16 Estimated GFR 16 L Glucose 221 H POC Capillary Glucose 176 H 212 H Calcium 11.3 H Magnesium 2.0 Total Bilirubin 0.9 AST 28 ALT 16 Alkaline Phosphatase 130 H Total Protein 7.4 Albumin 4.1 Quality VTE Prophylaxis VTE prophylaxis: pharmacologic ordered Hospitalist MIPS Advance Care Plan I have confirmed that the patient's Advanced Care Plan is present, code status is documented, or surrogate decision maker is listed in patient medical record.: Yes Medication Reconciliation I have utilized all available resources to obtain, update and review the patients current medications (includes all prescriptions, OTC, herbals, cannabis, and nutritional supplements).: Yes
[2025-08-15] MEDS: DOXYCYCLINE HYCLATE 100 MG TABLET PO (08:30)
[2025-08-15] MEDS: SERTRALINE HCL 50 MG TABLET PO (08:30)
[2025-08-15] MEDS: ROSUVASTATIN 10 MG TABLET PO (08:30)
[2025-08-15] MEDS: SACCHAROMYCES BOULARDII 250 MG CAPSULE PO ×2 (08:30→16:34)
[2025-08-15] MEDS: APIXABAN 5 MG TABLET PO ×2 (08:31→16:34)
[2025-08-15] MEDS: METOPROLOL TARTRATE 25 MG TABLET PO (08:31)
[2025-08-15] MEDS: MEMANTINE 5 MG TABLET PO ×2 (08:31→20:35)
[2025-08-15] MEDS: DOCUSATE SODIUM 100 MG CAPSULE 200 MG PO ×2 (08:32→16:35)
[2025-08-15] MEDS: PANTOPRAZOLE SODIUM IV 40 MG VIAL IV PUSH (08:33)
[2025-08-15] MEDS: SODIUM CHLORIDE 0.9% IV 500 ML 250 ML IV CONT (08:33)
[2025-08-15] MEDS: AMOXICILLIN/CLAVULANATE K SUSP 500 MG/6.25 ML UD PO (08:36)
[2025-08-15] MEDS: INSULIN GLARGINE (*BKC) 100 UNITS/ML 30 UNITS SUB-Q (08:37)
[2025-08-15] MEDS: INSULIN ASPART (*BKC) 100 UNITS/ML SUB-Q ×3 (08:39→17:20)
[2025-08-15] MEDS: PHENYLEPH/SHARK OIL/MO/PETROL CREAM 26 GM 1 APPLIC RECTAL (08:40)
--- NOTE | 2025-08-15 10:53 | PCDIET ---
Spoke with nursing today regard poor po intake. Patient is current with Renal Dialysis/[facility]CC diet. Called provider, diet order changed to [facility] diet with diet supplements. Will continue to monitor, weight, labs, skin, oral intake, meds every 5 days.
[2025-08-15] MEDS: methylPHENIDATE HCL (*CRX) 10 MG TABLET PO (12:31)
--- NOTE | 2025-08-15 13:24 | P.PNNP_ITS ---
Progress Note: A&P Assessment and Plan (1) ESRD (end stage renal disease): Code(s): N18.6 - End stage renal disease Status: Chronic Assessment and Plan: * HD tomorrow * resume Tue/Tue/Tuesday dialysis schedule this week * follow electrolytes, volume status, and clearance * high calcium likely related to not getting Sensipar here/secondary hyperparathyroidism * will transition to [facility] with outpatient dialysis treatments (2) Pneumonia: Code(s): J18.9 - Pneumonia, unspecified organism Status: Acute Assessment and Plan: * recent CXR (08/10) results noted: * CHF * superimposed bilateral lower lobe pneumonia * findings appear progressed compared to the previous study * associated with some worsening of chronic hypotension, elevated WBC, and low grade fevers * follow culture data * on antibiotics (3) Hypotension: Code(s): I95.9 - Hypotension, unspecified Status: Acute Assessment and Plan: * acute on chronic * recent and previous echocardiograms noted * baseline systolic BP runs in the 90s for the last month * recently started on midodrine therapy from recent [facility] admission * recent low grade fevers and elevated WBC concerning for new infection..... * WBC better * CXR noted * culture data * on antibiotics * remains on midodrine therapy * PRN IV albumin while hospitalized (4) Atrial fibrillation: Qualifiers: Atrial fibrillation type: permanent Qualified Code(s): I48.21 - Permanent atrial fibrillation Code(s): I48.91 - Unspecified atrial fibrillation Status: Acute Assessment and Plan: * known history * rate control strategy * metoprolol use complicated by chronic hypotension * already on anticoagulation (5) AMS (altered mental status): Qualifiers: Altered mental status type: transient alteration of awareness Qualified Code(s): R40.4 - Transient alteration of awareness Code(s): R41.82 - Altered mental status, unspecified Status: Acute Assessment and Plan: * fluctuates even at baseline * despite underlying dementia, usually alert and oriented x 1 - 2 (although not consistently) * head CT negative * due to hypotension versus infection (i.e. pneumonia?) * Neurology following * EEG results noted * continue supportive therapy (6) Acute hypoxic respiratory failure: Code(s): J96.01 - Acute respiratory failure with hypoxia Status: Acute Assessment and Plan: * resolving * as noted since admission * presumably due to volume overload (CHF + pulmonary edema) and recurrent pneumonia on admission * ongoing imaging noted * fluid removal challenging in the context of hypotension (presumably a problem during recent hospitalization at [facility] as well) * fluid removal with HD as tolerated * off supplemental oxygen (7) Urinary tract infection: Qualifiers: Hematuria presence: without hematuria Urinary tract infection type: a cute cystitis Qualified Code(s): N30.00 - Acute cystitis without hematuria Code(s): N39.0 - Urinary tract infection, site not specified Status: Acute Assessment and Plan: * admission UA suggestive * however, no urine culture done at that time * on antibiotics (8) Volume overload: Code(s): E87.70 - Fluid overload, unspecified Status: Acute Assessment and Plan: * doing better * as suggested by evidence on admission: * imaging with CHF findings and pulmonary edema * ~ 8kg above dry weight per outpatient dialysis clinic when seen on 07/29 * aggressive fluid removal with HD and DUF as tolerated by hemodynamics * Echo from admission to [facility] noted (07/23/25): * left ventricle is normal in size with estimated EF of 50 - 55% * right ventricular systolic function is at the lower limit of normal * moderate to severe aortic stenosis * no evidence of aortic valve regurgitation * mild to moderate mitral and pulmonic regurgitation * no evidence of mitral stenosis * moderate tricuspid regurgitation * moderate pulmonary hypertension * mildly dilated ascending aorta * limited Echo done here (08/05) reviewed: * normal biventricular size and systolic function * aortic valve is trileaflet and calcified * visually appears to be mild to moderate aortic stenosis * mild mitral regurgitation * follow respiratory status and clinical exam (9) Anemia: Qualifiers: Anemia type: due to chronic kidney disease Chronic kidney disease stage: on chronic dialysis Qualified Code(s): N18.6 - End stage renal disease; D63.1 - Anemia in chronic kidney disease; Z99.2 - Dependence on renal dialysis Code(s): D64.9 - Anemia, unspecified Status: Chronic Assessment and Plan: * due to ESRD and acute illness * anemia studies noted: * evidence of mild iron deficiency * follow trend of H/H * Epogen with HD (10) DM type 2 (diabetes mellitus, type 2): Qualifiers: Diabetes mellitus remote computer terminal operator insulin use: without remote computer terminal operator use Diabetes mellitus complication status: without complication Qualified Code(s): E11.9 - Type 2 diabetes mellitus without complications Code(s): E11.9 - Type 2 diabetes mellitus without complications Status: Chronic Assessment and Plan: * follow accu-cheks * glycemic control per hospitalist Will continue to follow. L Subjective Date/time seen: 08/15/25 13:24 Interval history: Following for end stage renal disease on hemodialysis. Tolerated dialysis treatment yesterday without any issue or problems; diet has been liberalized since she is not eating/drinking very much; PRN IVF boluses given persistent hypotension; daughter at bedside and we discussed the situation. Exam 2 Narrative: General: elderly but WD/WN female in NAD Heart: IRRR, normal S1 and S2; no rub Lungs: coarse breath sounds; decreased at bases Abdomen: obese but soft, nontender, nondistended, positive bowel sounds Extremities: no cyanosis or clubbing; trace edema Skin: no rash Objective Data Vital Signs Vital Signs: Vital Signs Temp Pulse Resp BP Pulse Ox O2 Del Method 08/15/25 12:00 117 H 08/15/25 11:13 98.0 F 109 H 16 91/62 L 96 08/15/25 08:31 120 H 08/15/25 08:30 Room Air 08/15/25 08:00 115 H 08/15/25 04:46 97.8 F 100 16 91/51 L 97 08/15/25 04:00 114 H 08/15/25 00:32 106 H 08/15/25 00:28 97.8 F 92 16 88/48 L 96 08/14/25 21:32 74 08/14/25 21:30 97.6 F 74 18 95/57 L 93 08/14/25 20:00 92 08/14/25 20:00 Room Air Intake/Output Intake/Output: Intake & Output 08/12/25 08/13/25 08/14/25 08/15/25 23:59 23:59 23:59 23:59 Intake Total 480 340 880 705 Output Total 2000 0 1000 Balance -1520 340 -120 705 Meds/Results Medications: Active Medications Generic Name Dose Route Start Last Admin Trade Name Freq PRN Reason Stop Dose Admin Acetaminophen 650 mg 07/29/25 15:59 08/15/25 17:24 Acetaminophen 325 Mg Tablet PO 650 mg Q4H PRN Administration Mild Pain (1-3) or Fever Acetaminophen 650 mg 07/29/25 17:04 Acetaminophen 650 Mg Suppository RECTAL Q6H PRN Mild Pain (1-3) or Fever Albuterol/Ipratropium 3 ml 07/29/25 19:52 Ipratropium 0.5 Mg/Albuterol Sulfate 2.5 Mg (Base) Ampul.Neb 3 Ml INHALATION Q4HRT PRN Shortness of Breath. Amoxicillin/Clavulanate Potassium 500 mg 08/13/25 18:00 08/15/25 08:36 Amoxicillin/Clavulanate K Susp 500 Mg/6.25 Ml Ud PO 08/17/25 09:01 500 mg Q12HR BIANKA Administration Apixaban 5 mg 07/30/25 09:00 08/15/25 16:34 Apixaban 5 Mg Tablet PO 5 mg BID BIANKA Administration Aripiprazole 1 mg 07/31/25 21:00 08/14/25 21:33 Aripiprazole 1 Mg Tablet PO 1 mg HS BIANKA Administration Aripiprazole 2 mg 07/31/25 21:00 08/14/25 21:33 Aripiprazole 2 Mg Tablet BY MOUTH 2 mg HS BIANKA Administration Buspirone HCl 5 mg 07/31/25 17:00 08/15/25 16:35 Buspirone Hcl 5 Mg Tablet BY MOUTH 5 mg TID BIANKA Administration Dextrose 12.5 gm 07/29/25 19:52 Dextrose 50% 25 Gm/50 Ml Syringe IV PUSH PRN PRN Hypoglycemia Protocol Docusate Sodium 200 mg 07/31/25 17:00 08/15/25 16:35 Docusate Sodium 100 Mg Capsule PO 200 mg BID BIANKA Administration Glucagon 1 mg 07/29/25 19:52 Glucagon For Inj 1 Mg Vial IM PRN PRN Hypoglycemia Protocol Glucose 15 gm 07/29/25 19:52 Glucose Oral Gel 15 Gm Of Glucse In 37.5 Gm Tube PO PRN PRN Hypoglycemia Protocol Dextrose 1,000 mls @ 100 mls/hr 07/29/25 19:52 Dextrose 5% 1,000 Ml IVPB PRN PRN Hypoglycemia Protocol Albumin Human 50 mls @ 999 mls/hr 07/30/25 05:49 08/12/25 09:59 Albutein IVPB 08/29/25 05:48 999 mls/hr Q10M PRN Administration HYPOTENSION Sodium Chloride 500 mls @ 100 mls/hr 08/15/25 15:05 08/15/25 16:36 Normal Saline Iv IV CONT 08/15/25 20:04 100 mls/hr .Q5H ONE Administration Insulin Aspart 4 - 8 units 07/31/25 08:00 08/15/25 17:20 Insulin Aspart (*Bkc) 100 Units/Ml SUB-Q 5 units TIDWM BIANKA Administration Protocol Insulin Aspart 2 - 4 units 07/30/25 21:00 08/14/25 21:33 Insulin Aspart (*Bkc) 100 Units/Ml SUB-Q Not Given HS [facility] Protocol Insulin Glargine 30 units 08/11/25 08:00 08/15/25 08:37 Insulin Glargine (*Bkc) 100 Units/Ml SUB-Q 30 units DAILY@0800 BIANKA Administration Memantine 5 mg 08/09/25 09:00 08/15/25 08:31 Memantine 5 Mg Tablet PO 5 mg Q12HR BIANKA Administration Methylphenidate HCl 10 mg 08/15/25 12:00 08/15/25 12:31 Methylphenidate Hcl (*Crx) 10 Mg Tablet PO 10 mg BID@0800,1200 [facility] Administration Metoprolol Tartrate 37.5 mg 08/15/25 21:00 Metoprolol Tartrate 12.5 Mg Tablet PO Q12HR [facility] Midodrine 10 mg 08/15/25 04:00 08/15/25 16:34 Midodrine Hcl 10 Mg Tablet PO 10 mg Q6H BIANKA Administration Naloxone HCl 0.1 mg 07/29/25 20:26 Naloxone Hcl 0.4 Mg/Ml Vial IV PUSH Q5MIN PRN Sedation Non-Formulary Medication 30 mg 08/15/25 17:00 08/15/25 18:21 Tenapanor [Xphozah] PO 09/14/25 16:59 Not Given BID [facility] Ondansetron HCl 4 mg 07/29/25 15:59 08/09/25 15:47 Ondansetron Inj 4 Mg/2 Ml Vial IV PUSH 4 mg Q4H PRN Administration Nausea Pantoprazole Sodium 40 mg 07/30/25 09:00 08/15/25 08:33 Pantoprazole Sodium Iv 40 Mg Vial IV PUSH 40 mg QAM BIANKA Administration Phenyleph/Shark Oil/Min Oil/Petrol 1 applic 08/12/25 09:00 08/15/25 08:40 Phenyleph/Shark Oil/Mo/Petrol Cream 26 Gm RECTAL 1 applic DAILY BIANKA Administration Rosuvastatin Calcium 10 mg 08/01/25 09:00 08/15/25 08:30 Rosuvastatin 10 Mg Tablet PO 10 mg DAILY BIANKA Administration Saccharomyces Boulardii 250 mg 08/12/25 17:00 08/15/25 16:34 Saccharomyces Boulardii 250 Mg Capsule PO 250 mg BID BIANKA Administration Sertraline HCl 50 mg 08/01/25 09:00 08/15/25 08:30 Sertraline Hcl 50 Mg Tablet PO 50 mg DAILY BIANKA Administration Sodium Chloride 20 ml 07/29/25 15:58 Central Line Flush IV PUSH PRN PRN after blood draws Radiology Results: ITS Impressions Head CT 07/29/25 17:35 Impression: 1.No acute intracranial abnormality. Chest/Abdomen/Pelvis CT 07/29/25 18:21 IMPRESSION: CHEST- 1. Mild interstitial pulmonary edema with small left pleural effusions and bibasilar atelectasis. 2. No other acute abnormality. ABDOMEN/PELVIS- 1. No acute abnormality. 2. Additional findings as above. Chest X-Ray 08/13/25 09:23 IMPRESSION: 1.Patchy opacities in the right mid and lower lungs similar to the prior study from 08/10/2025. Follow-up is recommended. 2.Patchy opacities in the left lower lung similar to the prior study from 08/10/2025. Labs Labs: Laboratory Tests 08/15/25 04:06 08/15/25 04:06 Calcium 11.3 H Magnesium 2.0 Total Bilirubin 0.9 AST 28 ALT 16 Alkaline Phosphatase 130 H Total Protein 7.4 Albumin 4.1 Microbiology 08/10/25 11:57 Blood Blood Culture - Preliminary 08/10/25 12:03 Blood Blood Culture - Preliminary
[2025-08-15] MEDS: SODIUM CHLORIDE 0.9% IV 500 ML 100 ML IV CONT (16:36)
[2025-08-15] MEDS: ACETAMINOPHEN 325 MG TABLET 650 MG PO (17:24)
[2025-08-15] MEDS: METOPROLOL TARTRATE 12.5 MG TABLET 37.5 MG PO (20:35)
[2025-08-16] VITALS (28 sets, daily range): BP systolic 80–127; BP diastolic 35–90; PULSE 55–115; RESP 16–24; TEMP 36.4–37; O2SAT 95–100
[2025-08-16] MEDS: MIDODRINE HCL 10 MG TABLET PO (04:54)
[2025-08-16] MEDS: METOPROLOL TARTRATE 12.5 MG TABLET 37.5 MG PO (08:23)
[2025-08-16] MEDS: DOCUSATE SODIUM 100 MG CAPSULE 200 MG PO (08:24)
[2025-08-16] MEDS: MEMANTINE 5 MG TABLET PO (08:24)
[2025-08-16] MEDS: methylPHENIDATE HCL (*CRX) 10 MG TABLET PO (08:24)
[2025-08-16] MEDS: SERTRALINE HCL 50 MG TABLET PO (08:24)
[2025-08-16] MEDS: SACCHAROMYCES BOULARDII 250 MG CAPSULE PO (08:24)
[2025-08-16] MEDS: APIXABAN 5 MG TABLET PO (08:24)
[2025-08-16] MEDS: ROSUVASTATIN 10 MG TABLET PO (08:24)
[2025-08-16] MEDS: PANTOPRAZOLE SODIUM IV 40 MG VIAL IV PUSH (08:26)
--- NOTE | 2025-08-16 08:50 | PC.NURSE ---
RN attempted to administer medications this morning and patient spit them out and said she could not do this anymore. RN notified hospitalist Sirisha and ground equipment mechanic Jermaine. RN sent albumin up with patient for dialysis. RN will attempt medications again after dialysis.
[2025-08-16] MEDS: ALBUMIN HUMAN 25% 25 GM/100 ML 100 ML IVPB (09:45)
--- NOTE | 2025-08-16 10:11 | P.PNNP_ITS ---
Progress Note: A&P Assessment and Plan (1) ESRD (end stage renal disease): Code(s): N18.6 - End stage renal disease Status: Chronic Assessment and Plan: * HD today * resume Tue/Tue/Tuesday dialysis schedule this week * follow electrolytes, volume status, and clearance * high calcium likely related to not getting Sensipar here/secondary hyperparathyroidism * will transition to [facility] with outpatient dialysis treatments (2) Pneumonia: Code(s): J18.9 - Pneumonia, unspecified organism Status: Acute Assessment and Plan: * improvement noted/resolving * recent CXR (08/10) results noted: * CHF * superimposed bilateral lower lobe pneumonia * findings appear progressed compared to the previous study * associated with some worsening of chronic hypotension, elevated WBC, and low grade fevers * follow culture data - negative to date * on oral antibiotics (3) Hypotension: Code(s): I95.9 - Hypotension, unspecified Status: Acute Assessment and Plan: * acute on chronic * recent and previous echocardiograms noted * baseline systolic BP runs in the 90s for the last month * recently started on midodrine therapy from recent [facility] admission * remains on midodrine therapy * PRN IV albumin while hospitalized and with dialysis treatments (4) Atrial fibrillation: Qualifiers: Atrial fibrillation type: permanent Qualified Code(s): I48.21 - Permanent atrial fibrillation Code(s): I48.91 - Unspecified atrial fibrillation Status: Acute Assessment and Plan: * known history * rate control strategy * metoprolol use complicated by chronic hypotension * already on anticoagulation (5) AMS (altered mental status): Qualifiers: Altered mental status type: transient alteration of awareness Qualified Code(s): R40.4 - Transient alteration of awareness Code(s): R41.82 - Altered mental status, unspecified Status: Acute Assessment and Plan: * fluctuates even at baseline * despite underlying dementia, usually alert and oriented x 1 - 2 (although not consistently) * head CT negative * due to hypotension versus infection (i.e. pneumonia?) * Neurology following * EEG results noted * continue supportive therapy (6) Acute hypoxic respiratory failure: Code(s): J96.01 - Acute respiratory failure with hypoxia Status: Acute Assessment and Plan: * resolving (if not resolved) * as noted since admission * presumably due to volume overload (CHF + pulmonary edema) and recurrent pneumonia on admission * ongoing imaging noted * fluid removal challenging in the context of hypotension (presumably a problem during recent hospitalization at [facility] as well) * fluid removal with HD as tolerated * off supplemental oxygen (7) Urinary tract infection: Qualifiers: Hematuria presence: without hematuria Urinary tract infection type: a cute cystitis Qualified Code(s): N30.00 - Acute cystitis without hematuria Code(s): N39.0 - Urinary tract infection, site not specified Status: Acute Assessment and Plan: * admission UA suggestive * however, no urine culture done at that time * presumably treated with previous IV antibiotics (8) Volume overload: Code(s): E87.70 - Fluid overload, unspecified Status: Acute Assessment and Plan: * doing better (if not resolved) * as suggested by evidence on admission: * imaging with CHF findings and pulmonary edema * ~ 8kg above dry weight per outpatient dialysis clinic when seen on 07/29 * s/p aggressive fluid removal with HD and DUF as tolerated by hemodynamics * Echo from admission to [facility] noted (07/23/25): * left ventricle is normal in size with estimated EF of 50 - 55% * right ventricular systolic function is at the lower limit of normal * moderate to severe aortic stenosis * no evidence of aortic valve regurgitation * mild to moderate mitral and pulmonic regurgitation * no evidence of mitral stenosis * moderate tricuspid regurgitation * moderate pulmonary hypertension * mildly dilated ascending aorta * limited Echo done here (08/05) reviewed: * normal biventricular size and systolic function * aortic valve is trileaflet and calcified * visually appears to be mild to moderate aortic stenosis * mild mitral regurgitation * follow respiratory status and clinical exam (9) Anemia: Qualifiers: Anemia type: due to chronic kidney disease Chronic kidney disease stage: on chronic dialysis Qualified Code(s): N18.6 - End stage renal disease; D63.1 - Anemia in chronic kidney disease; Z99.2 - Dependence on renal dialysis Code(s): D64.9 - Anemia, unspecified Status: Chronic Assessment and Plan: * due to ESRD and acute illness * anemia studies noted: * evidence of mild iron deficiency * follow trend of H/H * Epogen with HD (10) DM type 2 (diabetes mellitus, type 2): Qualifiers: Diabetes mellitus long term care pharmacist insulin use: without fdc use Diabetes mellitus complication status: without complication Qualified Code(s): E11.9 - Type 2 diabetes mellitus without complications Code(s): E11.9 - Type 2 diabetes mellitus without complications Status: Chronic Assessment and Plan: * follow accu-cheks * glycemic control per hospitalist Not opposed to discharge from renal perspective if otherwise medically stable. Will continue to follow. L Subjective Date/time seen: 08/16/25 10:11 Interval history: Following for end stage renal disease on hemodialysis. Tolerating dialysis treatment at the time of my visit (seen on HD at 10:00am); no apparent distress when seen but she was not very conversive either; nursing reports that spit out AM medications earlier this morning; BP remains soft but relatively stable. Exam 2 Narrative: General: elderly but WD/WN female in NAD Heart: IRRR, normal S1 and S2; no rub Lungs: coarse breath sounds; decreased at bases Abdomen: obese but soft, nontender, nondistended, positive bowel sounds Extremities: no cyanosis or clubbing; trace edema Skin: no nodules Objective Data Vital Signs Vital Signs: Vital Signs Temp Pulse Resp BP Pulse Ox O2 Del Method 08/16/25 10:00 98 89/52 L 08/16/25 09:45 111 H 116/59 L 08/16/25 09:34 102 H 109/54 L 08/16/25 09:25 88 108/53 L 08/16/25 09:15 94 100/83 08/16/25 09:08 98 101/58 L 08/16/25 08:53 98.6 F 92 24 H 127/62 95 08/16/25 08:35 115 H 126/68 08/16/25 08:23 115 H 08/16/25 08:20 Room Air 08/16/25 08:00 108 H 08/16/25 04:40 97.8 F 98 16 110/75 95 08/16/25 04:00 98 08/16/25 00:00 114 H 08/15/25 20:35 65 08/15/25 20:29 97.6 F 63 16 111/70 92 08/15/25 20:00 105 H 08/15/25 20:00 Room Air 08/15/25 16:06 98.1 F 74 16 104/51 L 97 08/15/25 16:00 110 H Intake/Output Intake/Output: Intake & Output 08/13/25 08/14/25 08/15/25 08/16/25 23:59 23:59 23:59 23:59 Intake Total 340 880 705 320 Output Total 0 1000 Balance 340 -120 705 320 Meds/Results Medications: Active Medications Generic Name Dose Route Start Last Admin Trade Name Freq PRN Reason Stop Dose Admin Acetaminophen 650 mg 07/29/25 15:59 08/15/25 17:24 Acetaminophen 325 Mg Tablet PO 650 mg Q4H PRN Administration Mild Pain (1-3) or Fever Acetaminophen 650 mg 07/29/25 17:04 Acetaminophen 650 Mg Suppository RECTAL Q6H PRN Mild Pain (1-3) or Fever Albuterol/Ipratropium 3 ml 07/29/25 19:52 Ipratropium 0.5 Mg/Albuterol Sulfate 2.5 Mg (Base) Ampul.Neb 3 Ml INHALATION Q4HRT PRN Shortness of Breath. Amoxicillin/Clavulanate Potassium 500 mg 08/13/25 18:00 08/15/25 20:46 Amoxicillin/Clavulanate K Susp 500 Mg/6.25 Ml Ud PO 08/17/25 09:01 Not Given Q12HR BIANKA Apixaban 5 mg 07/30/25 09:00 08/16/25 08:24 Apixaban 5 Mg Tablet PO 5 mg BID BIANKA Administration Aripiprazole 1 mg 07/31/25 21:00 08/15/25 20:35 Aripiprazole 1 Mg Tablet PO 1 mg HS BIANKA Administration Aripiprazole 2 mg 07/31/25 21:00 08/15/25 20:36 Aripiprazole 2 Mg Tablet BY MOUTH 2 mg HS BIANKA Administration Buspirone HCl 5 mg 07/31/25 17:00 08/16/25 08:24 Buspirone Hcl 5 Mg Tablet BY MOUTH 5 mg TID BIANKA Administration Dextrose 12.5 gm 07/29/25 19:52 Dextrose 50% 25 Gm/50 Ml Syringe IV PUSH PRN PRN Hypoglycemia Protocol Docusate Sodium 200 mg 07/31/25 17:00 08/16/25 08:24 Docusate Sodium 100 Mg Capsule PO 200 mg BID BIANKA Administration Glucagon 1 mg 07/29/25 19:52 Glucagon For Inj 1 Mg Vial IM PRN PRN Hypoglycemia Protocol Glucose 15 gm 07/29/25 19:52 Glucose Oral Gel 15 Gm Of Glucse In 37.5 Gm Tube PO PRN PRN Hypoglycemia Protocol Dextrose 1,000 mls @ 100 mls/hr 07/29/25 19:52 Dextrose 5% 1,000 Ml IVPB PRN PRN Hypoglycemia Protocol Albumin Human 50 mls @ 999 mls/hr 07/30/25 05:49 08/12/25 09:59 Albutein IVPB 08/29/25 05:48 999 mls/hr Q10M PRN Administration HYPOTENSION Albumin Human 50 mls @ 999 mls/hr 08/16/25 07:26 Albutein IVPB 08/17/25 07:25 Q10M PRN HYPOTENSION Insulin Aspart 4 - 8 units 07/31/25 08:00 08/16/25 08:24 Insulin Aspart (*Bkc) 100 Units/Ml SUB-Q Not Given TIDWM BIANKA Protocol Insulin Aspart 2 - 4 units 07/30/25 21:00 08/15/25 20:34 Insulin Aspart (*Bkc) 100 Units/Ml SUB-Q Not Given HS BIANKA Protocol Insulin Glargine 30 units 08/11/25 08:00 08/15/25 08:37 Insulin Glargine (*Bkc) 100 Units/Ml SUB-Q 30 units DAILY@0800 BIANKA Administration Memantine 5 mg 08/09/25 09:00 08/16/25 08:24 Memantine 5 Mg Tablet PO 5 mg Q12HR BIANKA Administration Methylphenidate HCl 10 mg 08/15/25 12:00 08/16/25 08:24 Methylphenidate Hcl (*Crx) 10 Mg Tablet PO 10 mg BID@0800,1200 BIANKA Administration Metoprolol Tartrate 37.5 mg 08/15/25 21:00 08/16/25 08:23 Metoprolol Tartrate 12.5 Mg Tablet PO 37.5 mg Q12HR BIANKA Administration Midodrine 10 mg 08/15/25 04:00 08/16/25 04:54 Midodrine Hcl 10 Mg Tablet PO 10 mg Q6H BIANKA Administration Naloxone HCl 0.1 mg 07/29/25 20:26 Naloxone Hcl 0.4 Mg/Ml Vial IV PUSH Q5MIN PRN Sedation Non-Formulary Medication 30 mg 08/15/25 17:00 08/15/25 18:21 Tenapanor [Xphozah] PO 09/14/25 16:59 Not Given BID BIANKA Ondansetron HCl 4 mg 07/29/25 15:59 08/09/25 15:47 Ondansetron Inj 4 Mg/2 Ml Vial IV PUSH 4 mg Q4H PRN Administration Nausea Pantoprazole Sodium 40 mg 07/30/25 09:00 08/16/25 08:26 Pantoprazole Sodium Iv 40 Mg Vial IV PUSH 40 mg QAM BIANKA Administration Phenyleph/Shark Oil/Min Oil/Petrol 1 applic 08/12/25 09:00 08/15/25 08:40 Phenyleph/Shark Oil/Mo/Petrol Cream 26 Gm RECTAL 1 applic DAILY BIANKA Administration Rosuvastatin Calcium 10 mg 08/01/25 09:00 08/16/25 08:24 Rosuvastatin 10 Mg Tablet PO 10 mg DAILY BIANKA Administration Saccharomyces Boulardii 250 mg 08/12/25 17:00 08/16/25 08:24 Saccharomyces Boulardii 250 Mg Capsule PO 250 mg BID BIANKA Administration Sertraline HCl 50 mg 08/01/25 09:00 08/16/25 08:24 Sertraline Hcl 50 Mg Tablet PO 50 mg DAILY BIANKA Administration Sodium Chloride 20 ml 07/29/25 15:58 Central Line Flush IV PUSH PRN PRN after blood draws Radiology Results: ITS Impressions Head CT 07/29/25 17:35 Impression: 1.No acute intracranial abnormality. Chest/Abdomen/Pelvis CT 07/29/25 18:21 IMPRESSION: CHEST- 1. Mild interstitial pulmonary edema with small left pleural effusions and bibasilar atelectasis. 2. No other acute abnormality. ABDOMEN/PELVIS- 1. No acute abnormality. 2. Additional findings as above. Chest X-Ray 08/13/25 09:23 IMPRESSION: 1.Patchy opacities in the right mid and lower lungs similar to the prior study from 08/10/2025. Follow-up is recommended. 2.Patchy opacities in the left lower lung similar to the prior study from 08/10/2025. Labs Labs: Laboratory Tests 08/15/25 04:06 08/15/25 04:06 Calcium 11.3 H Magnesium 2.0 Total Bilirubin 0.9 AST 28 ALT 16 Total Protein 7.4 Albumin 4.1
[2025-08-16] MEDS: EPOETIN ALFA-EPBX 10,000 UNITS/ML VIAL 10000 UNITS IV PUSH (11:54)
--- NOTE | 2025-08-16 14:17 | PM.IMPN ---
Progress Note: A&P Assessment and Plan (1) Leukocytosis: Code(s): D72.829 - Elevated white blood cell count, unspecified Status: Acute Assessment and Plan: WBC improved 15.7>9.2<11.3 07/30: CT scan of the chest abdomen follows showed interstitial edema with small left pleural effusion. Abdomen and pelvis did not show any acute abnormality -records have been requested from [facility] -february after repeat an echocardiogram if it was not done at [facility] - Zosyn and vancomycin (07/29) will continue for a total of 7 days, discontinued on 08/05 -07/29: Preliminary blood cultures negative x2 -08/04-Hr 100. 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 No acute infarct or hemorrhage. No midline shift or mass effect. No extra-axial fluid collections. Bilateral mastoid effusions noted. Severe left maxillary sinusitis with underlying polyp formation suspected. No acute fracture. No significant facial or scalp soft tissue swelling evident. No radiopaque foreign body is seen. EEG results: 1. Mild diffuse background slowing and frontal intermittent rhythmic delta activity suggestive generalized encephalopathy or bihemispheric lesion.2. Focal slowing and sharp wave activity noted over the left temporal area. Focal slowing may raise possibility of underlying structural lesion. Sharp transients are considered nonspecific focal abnormality. However such abnormalities may be seen many elderly subjects and hence clinical and if necessary radiographic correlation may be helpful. PLAN Neurology following, appreciate recommendations, added Namenda --Follow up with neurology in clinic --Follow Blood pressure, continue midodrine 10mg TID. (4) ESRD (end stage renal disease): Code(s): N18.6 - End stage renal disease Status: Chronic Assessment and Plan: End-stage renal disease on dialysis, Tuesday, Tuesday, Tuesday -after discussion with Nephrology, seems like patient has not been optimally dialyzed at [facility] and at outpatient dialysis center due to hypotension. Patient was 8-10 L positive from her dry weight -07/30: Dialyzed with 2500 mL in fluid removal, she did require Levophed and albumin during dialysis. -07/31: Dialyzed with 4000 mL in fluid removal -08/01: Dialyzed with 4000 mL in fluid removed 08/02-dialyzed with 4000 mL and fluid removal 08/03-dialyzed with 3000 food review -08/05 Pt recieved dialysis 08/07: Received dialysis 08/09: HD 3.5 hr treatment performed, 1,300ml taken off. 08/10: Hypotensive with SBP 73 after HD 08/09, temp noted 08/09 just after 8 AM (100.0) and just prior to noon (100.2). 08/12: HD today, successful. BP stable through treatment. 08/14 HD today PLAN --Per nephro, she will resume dialysis MWF --Liberalized diet --Planning (5) Hypotension: Code(s): I95.9 - Hypotension, unspecified Status: Acute Assessment and Plan: Multifactorial, infection, hypotensive with dialysis 08/07: BPs have been soft, but stable here. Remains on midodrine therapy 08/09: During dialysis, pts low again, 80/50's. Albumin given in dialysis per chart. Normalized now. Continue VS q4 hrs and midodrine. 08/11: Continue to monitor BP, pt dx with PNA, may be contributing. Pt BP still on the low end, midodrine continues to be given. x1 episode today at 85/45, this was right before Midodrine was given. Stable since. 08/12: BP has been stable today, continue midodrine. 08/13: BP has continued to be soft, as per baseline. Continue midodrine. 08/14: BP 84/44 with dialysis. Diarrhea seems resolved 08/15 BP 91/51, giving 250ml bolus, additional 500ml today since still mild hypotension (6) CHF (congestive heart failure): Qualifiers: Heart failure chronicity: acute on chronic Heart failure type: unspecified Qualified Code(s): I50.9 - Heart failure, unspecified Code(s): I50.9 - Heart failure, unspecified Status: Acute Assessment and Plan: Pulmonary edema on chest x-ray, could be related to CHF likely 2/2 Fluid overloaded 2/2 inadequate dialysis Dialysis per Nephrology 07/23/2025: Echocardiogram from [facility] left ventricle is normal in size with estimated EF of 50 - 55% right ventricular systolic function is at the lower limit of normal moderate to severe aortic stenosis no evidence of aortic valve regurgitation mild to moderate mitral and pulmonic regurgitation no evidence of mitral stenosis moderate tricuspid regurgitation moderate pulmonary hypertension mildly dilated ascending aorta 08/07: -BLE edema persistent, pt does not answer if she has SOB or CP. Will continue to assess. Continue HD and neph f/u recs 08/08: Denies SOB and CP today. BLE hard, but not sure would call them edematous. Will discuss with pt daughter Shima. 08/09: Discussed BLE with pt's daughter today, plan for outpatient f/u with established vascular team, Dr. Lamas. Fluid continues to be taken off during dialysis so unlikely related to this. Pt continues to deny CP and SOB to me, although not oriented (baseline). 08/11: Continues to deny SOB. Continue to hold lasix due to hypotension. Continue to monitor. 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 Reviewed with nursing and this was confirmed. Since AM blood sugars have been elevated, will increase pt lantus from 10 units daily to 15 units. -Continue to trend sugars via CMP and POC testing 08/08: -Per RN, verified that pt home dose of lantus is 25 in the AM. Will switch her to this to start tomorrow AM due to persistent high AM sugars. 08/10: FBS 226, increased basal lantus from 25 to 30 U daily 08/11: FBS 192 today, starting to decrease, will continue to monitor due to poor appetite. 08/12: FBS 189 today but then went right to HD. When returned, BS 158, will hold AM lantus dose today, to resume tomorrow. 08/13: FBS 235 today, likely higher due to holding of her insulin yesterday d/t HD. Resume lantus today. 08/14: FBS 214, 117 before lunch. Had dialysis today (8) Atrial fibrillation: Qualifiers: Atrial fibrillation type: permanent Qualified Code(s): I48.21 - Permanent atrial fibrillation Code(s): I48.91 - Unspecified atrial fibrillation Status: Acute Assessment and Plan: History of atrial fibrillation --Home meds: Eliquis and metoprolol 08/04/2025: Echocardiogram Summary ATRIAL FIBRILLATION WITH RAPID VENTRICULAR RESPONSE INCOMPLETE LEFT BUNDLE BRANCH BLOCK LEFT VENTRICULAR HYPERTROPHY WITH ST-T CHANGE MINIMAL Q WAVES- HIGH LATERAL LEADS BASELINE ARTIFACT- II, III, V1-V3 ABNORMAL ECG Compared to ECG 07/29/2025 12:56:03 HEART RATE HAS INCREASED 08/09: -Called to the bedside post dialysis due to pt being in afib rvr 110-130's. Pt asymptomatic, BP 103/51 which is her baseline. Pt missed AM dose of metoprolol 25mg, given when she returned to room. Gave x1 dose of Lopressor 2.5mg IV which helped get heart rate down to 100's. Will continue to monitor. Per daughter, pt runs at this rate at her baseline. PLAN --Continue on telemetry monitoring --Continue home meds (9) Diarrhea: Code(s): R19.7 - Diarrhea, unspecified Status: Acute Assessment and Plan: Hx IBS diarrhea resolved. C-dff negative 08/11 Plan Admitted 07/29 from [place] [facility] for altered mental status and hypotension. Initially admitted to the ICU on pressors. Cultures have been negative. Chest CT 07/29 showed mild interstitial edema with small pleural effusions Renal following for HD Time Spent With Patient Time: 59 minutes Subjective Date/time seen: 08/16/25 14:17 Interval history: Following for end stage renal disease on hemodialysis. Tolerated dialysis treatment yesterday without any issue or problems; diet has been liberalized since she is not eating/drinking very much; PRN IVF boluses given persistent hypotension; daughter at bedside and we discussed the plan Review of Systems Review of Systems: All systems reviewed & are unremarkable except as noted in HPI and below ROS unobtainable: Yes unobtainable due to mental status (Limited, A&O x1) Exam Narrative: General - Awake and alert. No acute distress Eyes - PERRLA, EOM intact ENT - No thrush, No erythema Neck - No noticeable or palpable swelling Lymph Nodes - No lymphadenopathy Cardiovascular - RRR no m/r/g, no JVD Lungs: Clear to auscultation, No wheezing, use of accessory muscles, no crackles Skin - Skin warm and dry, no wounds or rashes Abdomen - Normal bowel sounds, abdomen soft and nontender Extremities - No edema, cyanosis or clubbing Musculoskeletal - 5/5 strength, normal range of motion, no swollen or erythematous joints. Neurological ? Alert and oriented x 1, CN 2-12 grossly intact. Intermittently responds, 2/5 weakness all extremities Psych: Normal mood and affect Objective Data Vital Signs Vital Signs: Vital Signs - 24 hr 08/15/25 16:00 08/15/25 16:06 08/15/25 20:00 Temperature 98.1 F Pulse Rate 110 H 74 Respiratory Rate 16 Blood Pressure 104/51 L Pulse Oximetry 97 Oxygen Delivery Room Air 08/15/25 20:00 08/15/25 20:29 08/15/25 20:35 Temperature 97.6 F Pulse Rate 105 H 63 65 Respiratory Rate 16 Blood Pressure 111/70 Pulse Oximetry 92 Oxygen Delivery 08/16/25 00:00 08/16/25 04:00 08/16/25 04:40 Temperature 97.8 F Pulse Rate 114 H 98 98 Respiratory Rate 16 Blood Pressure 110/75 Pulse Oximetry 95 Oxygen Delivery 08/16/25 08:00 08/16/25 08:20 08/16/25 08:23 Temperature Pulse Rate 108 H 115 H Respiratory Rate Blood Pressure Pulse Oximetry Oxygen Delivery Room Air 08/16/25 08:35 08/16/25 08:53 08/16/25 09:08 Temperature 98.6 F Pulse Rate 115 H 92 98 Respiratory Rate 24 H Blood Pressure 126/68 127/62 101/58 L Pulse Oximetry 95 Oxygen Delivery 08/16/25 09:15 08/16/25 09:25 08/16/25 09:34 Temperature Pulse Rate 94 88 102 H Respiratory Rate Blood Pressure 100/83 108/53 L 109/54 L Pulse Oximetry Oxygen Delivery 08/16/25 09:45 08/16/25 10:00 08/16/25 10:15 Temperature Pulse Rate 111 H 98 107 H Respiratory Rate Blood Pressure 116/59 L 89/52 L 99/60 L Pulse Oximetry Oxygen Delivery 08/16/25 10:30 08/16/25 10:45 08/16/25 11:00 Temperature Pulse Rate 95 97 84 Respiratory Rate Blood Pressure 97/55 L 102/41 L 99/57 L Pulse Oximetry Oxygen Delivery 08/16/25 11:15 08/16/25 11:30 08/16/25 11:45 Temperature Pulse Rate 97 86 82 Respiratory Rate Blood Pressure 103/53 L 108/65 100/52 L Pulse Oximetry Oxygen Delivery 08/16/25 12:00 08/16/25 12:00 08/16/25 12:15 Temperature Pulse Rate 60 110 H 86 Respiratory Rate Blood Pressure 119/66 87/52 L Pulse Oximetry Oxygen Delivery 08/16/25 12:30 Temperature Pulse Rate 105 H Respiratory Rate Blood Pressure 89/47 L Pulse Oximetry Oxygen Delivery Intake/Output Intake/Output: Intake & Output 08/13/25 08/14/25 08/15/25 08/16/25 23:59 23:59 23:59 23:59 Intake Total 340 880 705 320 Output Total 0 1000 Balance 340 -120 705 320 Meds/Results Medications: Active Medications Generic Name Dose Route Start Last Admin Trade Name Freq PRN Reason Stop Dose Admin Acetaminophen 650 mg 07/29/25 15:59 08/15/25 17:24 Acetaminophen 325 Mg Tablet PO 650 mg Q4H PRN Administration Mild Pain (1-3) or Fever Acetaminophen 650 mg 07/29/25 17:04 Acetaminophen 650 Mg Suppository RECTAL Q6H PRN Mild Pain (1-3) or Fever Albuterol/Ipratropium 3 ml 07/29/25 19:52 Ipratropium 0.5 Mg/Albuterol Sulfate 2.5 Mg (Base) Ampul.Neb 3 Ml INHALATION Q4HRT PRN Shortness of Breath. Amoxicillin/Clavulanate Potassium 500 mg 08/13/25 18:00 08/15/25 20:46 Amoxicillin/Clavulanate K Susp 500 Mg/6.25 Ml Ud PO 08/17/25 09:01 Not Given Q12HR BIANKA Apixaban 5 mg 07/30/25 09:00 08/16/25 08:24 Apixaban 5 Mg Tablet PO 5 mg BID BIANKA Administration Aripiprazole 1 mg 07/31/25 21:00 08/15/25 20:35 Aripiprazole 1 Mg Tablet PO 1 mg HS BIANKA Administration Aripiprazole 2 mg 07/31/25 21:00 08/15/25 20:36 Aripiprazole 2 Mg Tablet BY MOUTH 2 mg HS BIANKA Administration Buspirone HCl 5 mg 07/31/25 17:00 08/16/25 08:24 Buspirone Hcl 5 Mg Tablet BY MOUTH 5 mg TID BIANKA Administration Dextrose 12.5 gm 07/29/25 19:52 Dextrose 50% 25 Gm/50 Ml Syringe IV PUSH PRN PRN Hypoglycemia Protocol Docusate Sodium 200 mg 07/31/25 17:00 08/16/25 08:24 Docusate Sodium 100 Mg Capsule PO 200 mg BID BIANKA Administration Glucagon 1 mg 07/29/25 19:52 Glucagon For Inj 1 Mg Vial IM PRN PRN Hypoglycemia Protocol Glucose 15 gm 07/29/25 19:52 Glucose Oral Gel 15 Gm Of Glucse In 37.5 Gm Tube PO PRN PRN Hypoglycemia Protocol Dextrose 1,000 mls @ 100 mls/hr 07/29/25 19:52 Dextrose 5% 1,000 Ml IVPB PRN PRN Hypoglycemia Protocol Albumin Human 50 mls @ 999 mls/hr 07/30/25 05:49 08/12/25 09:59 Albutein IVPB 08/29/25 05:48 999 mls/hr Q10M PRN Administration HYPOTENSION Albumin Human 50 mls @ 999 mls/hr 08/16/25 07:26 Albutein IVPB 08/17/25 07:25 Q10M PRN HYPOTENSION Insulin Aspart 4 - 8 units 07/31/25 08:00 08/16/25 08:24 Insulin Aspart (*Bkc) 100 Units/Ml SUB-Q Not Given TIDWM BIANKA Protocol Insulin Aspart 2 - 4 units 07/30/25 21:00 08/15/25 20:34 Insulin Aspart (*Bkc) 100 Units/Ml SUB-Q Not Given HS BIANKA Protocol Insulin Glargine 30 units 08/11/25 08:00 08/15/25 08:37 Insulin Glargine (*Bkc) 100 Units/Ml SUB-Q 30 units DAILY@0800 BIANKA Administration Memantine 5 mg 08/09/25 09:00 08/16/25 08:24 Memantine 5 Mg Tablet PO 5 mg Q12HR BIANKA Administration Methylphenidate HCl 10 mg 08/15/25 12:00 08/16/25 08:24 Methylphenidate Hcl (*Crx) 10 Mg Tablet PO 10 mg BID@0800,1200 [facility] Administration Metoprolol Tartrate 37.5 mg 08/15/25 21:00 08/16/25 08:23 Metoprolol Tartrate 12.5 Mg Tablet PO 37.5 mg Q12HR [facility] Administration Midodrine 10 mg 08/15/25 04:00 08/16/25 04:54 Midodrine Hcl 10 Mg Tablet PO 10 mg Q6H BIANKA Administration Naloxone HCl 0.1 mg 07/29/25 20:26 Naloxone Hcl 0.4 Mg/Ml Vial IV PUSH Q5MIN PRN Sedation Non-Formulary Medication 30 mg 08/15/25 17:00 08/15/25 18:21 Tenapanor [Xphozah] PO 09/14/25 16:59 Not Given BID [facility] Ondansetron HCl 4 mg 07/29/25 15:59 08/09/25 15:47 Ondansetron Inj 4 Mg/2 Ml Vial IV PUSH 4 mg Q4H PRN Administration Nausea Pantoprazole Sodium 40 mg 07/30/25 09:00 08/16/25 08:26 Pantoprazole Sodium Iv 40 Mg Vial IV PUSH 40 mg QAM [facility] Administration Phenyleph/Shark Oil/Min Oil/Petrol 1 applic 08/12/25 09:00 08/15/25 08:40 Phenyleph/Shark Oil/Mo/Petrol Cream 26 Gm RECTAL 1 applic DAILY [facility] Administration Rosuvastatin Calcium 10 mg 08/01/25 09:00 08/16/25 08:24 Rosuvastatin 10 Mg Tablet PO 10 mg DAILY BIANKA Administration Saccharomyces Boulardii 250 mg 08/12/25 17:00 08/16/25 08:24 Saccharomyces Boulardii 250 Mg Capsule PO 250 mg BID [facility] Administration Sertraline HCl 50 mg 08/01/25 09:00 08/16/25 08:24 Sertraline Hcl 50 Mg Tablet PO 50 mg DAILY BIANKA Administration Sodium Chloride 20 ml 07/29/25 15:58 Central Line Flush IV PUSH PRN PRN after blood draws Radiology Results: ITS Impressions Head CT 07/29/25 17:35 Impression: 1.No acute intracranial abnormality. Chest/Abdomen/Pelvis CT 07/29/25 18:21 IMPRESSION: CHEST- 1. Mild interstitial pulmonary edema with small left pleural effusions and bibasilar atelectasis. 2. No other acute abnormality. ABDOMEN/PELVIS- 1. No acute abnormality. 2. Additional findings as above. Chest X-Ray 08/13/25 09:23 IMPRESSION: 1.Patchy opacities in the right mid and lower lungs similar to the prior study from 08/10/2025. Follow-up is recommended. 2.Patchy opacities in the left lower lung similar to the prior study from 08/10/2025. Labs Labs: Laboratory Results - last 24 hr 08/15/25 08/15/25 08/16/25 16:52 20:34 08:11 POC Capillary Glucose 272 H 178 H 192 H Quality VTE Prophylaxis VTE prophylaxis: pharmacologic ordered Hospitalist MIPS Advance Care Plan I have confirmed that the patient's Advanced Care Plan is present, code status is documented, or surrogate decision maker is listed in patient medical record.: Yes Medication Reconciliation I have utilized all available resources to obtain, update and review the patients current medications (includes all prescriptions, OTC, herbals, cannabis, and nutritional supplements).: Yes
--- NOTE | 2025-08-16 15:38 | P.DS_ITS ---
DS: Admitting Diagnosis Discharge Date 08/16/2025 Admitting Diagnosis AMS, Hypotension DS: Discharge Diagnosis Discharge Diagnosis (1) Hypotension: Code(s): I95.9 - Hypotension, unspecified Status: Acute Plan DS: Summary Hospital Course Reason for hospitalization: Copied from HPI 07/29: 80 y/o F with PMH of AFib, DVT, anemia, breast cancer, dementia, Castleman disease, CHF, CKD, diabetes, ESBL, myocardial infarction, sleep apnea on supplemental O2 at night, hyperlipidemia, hypertension, kidney stones, MRSA, pulmonary hypertension, and stroke presents here with altered mental status and hypotension. The patient presents here from [facility] on 07/29 for further evaluation of altered mental status and hypotension. HPI obtained through chart review, EMS report, and daughter report as the patient is currently altered. Patient receives HD on Mondays, Wednesdays and Fridays. Patient was there for treatment today when it was noted that her blood pressure was 78/40. She was g iven a a 500 mL bolus by the dialysis staff without response. Upon EMS arrival the patient's blood pressure was 76/42. While in route to the hospital the patient's blood pressure improved. Upon arrival to the emergency department the patient's blood pressure was 91/32. Patient is normally A/Ox4 despite history of dementia. Now A/Ox1. Of note, she was recently admitted to [facility] in [facility] for severe sepsis, hypoxia, and hyperkalemia. She was found to have pneumonia. She was treated there from 07/22/25-07/28/25. Daughter reports she had negative blood cultures at that time. At time of d/c the daughter reports she was not confused, remained somewhat weak, but seemed improved but not back to her baseline which is ambulatory. She also noted the patient had a coughing episode yesterday where she coughed up clear to white sputum. The patient denies chest pain, shortness of breath, fever, chills, body aches however she is unreliable at present. Initial VS at presentation: HR 102, RR 22, 91/32, and 94% on RA. ED workup showed: No leukocytosis, hemoglobin 8.7 (at baseline), INR 1.8, creatinine 5.37 and GFR 8 (3.37 and GFR 13 on 07/11/2025), glucose 223, lactic 2 .0, ALT 47, albumin 3.2. CXR showed CHF and superimposed probable pneumonia. Initial EKG showed AFib, rate 91, incomplete left bundle-branch block, baseline artifact (when compared to previous EKG done on 11/05/2024 there are no significant changes). Hospital Course: Admitted 07/29 from [facility] for altered mental status and hypo tension. Initially admitted to the ICU on pressors. Cultures have been negative. Chest CT 07/29 showed mild interstitial edema with small pleural effusions Renal followed for HD. Had soft blood pressures despite midodrine but has had a poor appetite and drinking minimally. Also had diarrhea. Gave IV fluids day prior to discharge and tolerated dialysis. Still delirious. Daughter hopeful that mental status will improve at her regular facility. Reasonable to try discharge back to facility. No Leukocytosis: WBC improved 15.7>9.2<11.3 07/30: CT scan of the chest abdomen follows showed interstitial edema with small left pleural effusion. Abdomen and pelvis did not show any acute abnormality -records have been requested from [facility] -february after repeat an echocardiogram if it was not done at [facility] - Zosyn and vancomycin (07/29) will continue for a total of 7 days, discontinued on 08/05 -07/29: Preliminary blood cultures negative x2 -08/04-Hr 100. Resume home metoprolol 08/13 chest x-ray patchy opacities rid mid and lower lungs and LLL similar to x- ray 08/10 Fever: Fever of 100.2 08/09, otherwise Afebrile Acute metabolic encephalopathy: Patient presented with altered mental status/encephalopathy which could be related to uremia, infection along with hypotension 07/29 CT brain which did not show any acute intracranial abnormality There is a remote-appearing posterior right frontoparietal subcortical infarct. No acute infarct or hemorrhage. No midline shift or mass effect. No extra-axial fluid collections. Bilateral mastoid effusions noted. Severe left maxillary sinusitis with underlying polyp formation suspected. No acute fracture. No significant facial or scalp soft tissue swelling evident. No radiopaque foreign body is seen. EEG results: 1. Mild diffuse background slowing and frontal intermittent rhythmic delta activity suggestive generalized encephalopathy or bihemispheric lesion.2. Focal slowing and sharp wave activity noted over the left temporal area. Focal slowing may raise possibility of underlying structural lesion. Sharp transients are considered nonspecific focal abnormality. However such abnormalities may be seen many elderly subjects and hence clinical and if necessary radiographic correlation may be helpful. PLAN Neurology following, appreciate recommendations, added Namelisa --Follow up with neurology in clinic --Follow Blood pressure, continue midodrine 10mg TID. ESRD (end stage renal disease): End-stage renal disease on dialysis, Tuesday, Tuesday, Tuesday -after discussion with Nephrology, seems like patient has not been optimally lul lyzed at [facility] and at outpatient dialysis center due to hypotension. Patient was 8-10 L positive from her dry weight -07/30: Dialyzed with 2500 mL in fluid removal, she did require Levophed and albumin during dialysis. -07/31: Dialyzed with 4000 mL in fluid removal -08/01: Dialyzed with 4000 mL in fluid removed 08/02-dialyzed with 4000 mL and fluid removal 08/03-dialyzed with 3000 food review -08/05 Pt recieved dialysis 08/07: Received dialysis 08/09: HD 3.5 hr treatment performed, 1,300ml taken off. 08/10: Hypotensive with SBP 73 after HD 08/09, temp noted 08/09 just after 8 AM (100.0) and just prior to noon (100.2). 08/12: HD today, successful. BP stable through treatment. 08/14 HD today PLAN --Per nephro, she will resume dialysis MWF --Liberalized diet since eating minimally Hypotension: Multifactorial, infection, hypotensive with dialysis 08/07: BPs have been soft, but stable here. Remains on midodrine therapy 08/09: During dialysis, pts low again, 80/50's. Albumin given in dialysis per chart. Normalized now. Continue VS q4 hrs and midodrine. 08/11: Continue to monitor BP, pt dx with PNA, may be contributing. Pt BP still on the low end, midodrine continues to be given. x1 episode today at 85/45, this was right before Midodrine was given. Stable since. 08/12: BP has been stable today, continue midodrine. 08/13: BP has continued to be soft, as per baseline. Continue midodrine. 08/14: BP 84/44 with dialysis. Diarrhea seems resolved 08/15 BP 91/51, giving 250ml bolus, additional 500ml today since still mild hypotension CHF (congestive heart failure): Pulmonary edema on chest x-ray, could be related to CHF likely 2/2 Fluid overloaded 2/2 inadequate dialysis Dialysis per Nephrology 07/23/2025: Echocardiogram from [facility] * left ventricle is normal in size with estimated EF of 50 - 55% * right ventricular systolic function is at the lower limit of normal * moderate to severe aortic stenosis * no evidence of aortic valve regurgitation * mild to moderate mitral and pulmonic regurgitation * no evidence of mitral stenosis * moderate tricuspid regurgitation * moderate pulmonary hypertension * mildly dilated ascending aorta 08/07: -BLE edema persistent, pt does not answer if she has SOB or CP. Will continue to assess. Continue HD and neph f/u recs 08/08: Denies SOB and CP today. BLE hard, but not sure would call them edematous. Will discuss with pt daughter Shima. 08/09: Discussed BLE with pt's daughter today, plan for outpatient f/u with established vascular team, Dr. Lamas. Fluid continues to be taken off during dialysis so unlikely related to this. Pt continues to deny CP and SOB to me, although not oriented (baseline). 08/11: Continues to deny SOB. Continue to hold lasix due to hypotension. Continue to monitor. DM type 2 (diabetes mellitus, type 2): Home meds:Aspart SSI, Lantus 25 daily --Continue Accu-Cheks and sliding scale insulin --Continue Lantus 30 daily, added mealtime insulin Recent history 08/07: -Per med rec, pt has only been getting 10units lantus in the AMs total. Reviewed with nursing and this was confirmed. Since AM blood sugars have been elevated, will increase pt lantus from 10 units daily to 15 units. -Continue to trend sugars via CMP and POC testing 08/08: -Per RN, verified that pt home dose of lantus is 25 in the AM. Will switch her to this to start tomorrow AM due to persistent high AM sugars. 08/10: FBS 226, increased basal lantus from 25 to 30 U daily 08/11: FBS 192 today, starting to decrease, will continue to monitor due to poor appetite. 08/12: FBS 189 today but then went right to HD. When returned, BS 158, will hold AM lantus dose today, to resume tomorrow. 08/13: FBS 235 today, likely higher due to holding of her insulin yesterday d/t HD. Resume lantus today. 08/14: FBS 214, 117 before lunch. Had dialysis today Atrial fibrillation: History of atrial fibrillation --Home meds: Eliquis and metoprolol 08/04/2025: Echocardiogram Summary ATRIAL FIBRILLATION WITH RAPID VENTRICULAR RESPONSE INCOMPLETE LEFT BUNDLE BRANCH BLOCK LEFT VENTRICULAR HYPERTROPHY WITH ST-T CHANGE MINIMAL Q WAVES- HIGH LATERAL LEADS BASELINE ARTIFACT- II, III, V1-V3 ABNORMAL ECG Compared to ECG 07/29/2025 12:56:03 HEART RATE HAS INCREASED 08/09: -Called to the bedside post dialysis due to pt being in afib rvr 110-130's. Pt asymptomatic, BP 103/51 which is her baseline. Pt missed AM dose of metoprolol 25mg, given when she returned to room. Gave x1 dose of Lopressor 2.5mg IV which helped get heart rate down to 100's. Will continue to monitor. Per daughter, pt runs at this rate at her baseline. PLAN --Rate controlled --Continue home meds Diarrhea: Hx IBS diarrhea resolved. C-dff negative 08/11 Status at Discharge Cognitive/behavioral status at discharge: Oriented x1 Time Spent with Patient Time attestation: Total time spent providing and/or coordinating discharge services:45 Exam Narrative: General - Awake and alert. No acute distress Eyes - PERRLA, EOM intact ENT - No thrush, No erythema Neck - No noticeable or palpable swelling Lymph Nodes - No lymphadenopathy Cardiovascular - RRR no m/r/g, no JVD Lungs: Clear to auscultation, No wheezing, use of accessory muscles, no crackles Skin - Skin warm and dry, no wounds or rashes Abdomen - Normal bowel sounds, abdomen soft and nontender Extremities - No edema, cyanosis or clubbing Musculoskeletal - 5/5 strength, normal range of motion, no swollen or erythematous joints. Neurological ? Alert and oriented x 1, CN 2-12 grossly intact. Intermittently responds, 2/5 weakness all extremities Psych: Normal mood and affect DS: Data Data Completed and Pending Labs on day of discharge: Labs from last 24 hours 08/16/25 08/15/25 08/15/25 08:11 20:34 16:52 POC Capillary Glucose 192 H 178 H 272 H Preliminary micro results at discharge 08/10/25 11:57 Blood Culture - Preliminary Blood 08/10/25 12:03 Blood Culture - Preliminary Blood Discharge Plan Discharge Attending physician on discharge: Quincy Wilkes Consulting providers: Candelaria Acuña; Cristofer Schwarz; Juliet Coleman; Darcy Tran; Myles Pat; Mar Aguero; Don Flores; Eyal Alonzo; Quincy Wilkes; Sophie Padron; Jay Monroy; Tanner Muro; Wanda Ledbetter; Kendra Scanlon; Angel Andre; Dhruv Peck; Torito Reyna; Myles Jc Discharging Clinician: Malia Rabago Anticipated Discharge Date/Time: 08/16/25 14:26 Patient Disposition: NH Fdc/Asst Living Activity: february shower Diet: diabetic Discharge Instructions: [place] longterm discharge instruction orders: -Take full vital signs before midodrine dose, hold if BP >150 -Hold metoprolol on dialysis days -Pt needs to be weighed daily, notify nephrology weekly -Probiotic daily Patient Instructions: Antibiotic Form, Apixaban (By mouth) Patient Language: French Stand Alone Forms: General Discharge Information, [facility] Discharge Discharge Medications: New amoxicillin-pot clavulanate 400-57 mg/5 mL Suspension For Reconstitution 6.25 ml PO Q12HR 2 Days Qty: 25 0RF tenapanor 30 mg Tablet 30 mg PO BID Qty: 60 0RF Rx Instructions: with breakfast and dinner Saccharomyces boulardii [Florastor] 250 mg Capsule 250 mg PO BID Qty: 60 0RF acetaminophen 500 mg capsule 500 mg PO TID Qty: 90 0RF cetirizine 5 mg tablet 5 mg PO DAILY PRN (Reason: allergy symptoms) Qty: 30 0RF Preparation H Maximum Strength 0.25-1 % Cream 1 applic RECTAL DAILY Qty: 1 0RF midodrine 10 mg tablet 10 mg PO Q6H Qty: 120 0RF Rx Instructions: Check blood pressure before dose and hold if SBP >140 Continued ferrous sulfate 324 mg (65 mg iron) tablet,delayed release (DR/EC) 325 mg PO EVERY OTHER DAY Patient Comments: Takes Tue, Tue, and Tuesday Rx Instructions: -- ondansetron 4 mg tablet,disintegrating 4 mg PO Q6H PRN (Reason: nausea and vomiting) (DME) Thigh High SANDOVAL hose See Rx Instructions .Route .MEDSUPPLY Qty: 3 0RF Rx Instructions: As directed. Please fill for 3 pairs. Thank you fluconazole 150 mg tablet 150 mg PO WEEKLY Patient Comments: Takes on Saturdays. ipratropium-albuterol 0.5 mg-3 mg(2.5 mg base)/3 mL solution for nebulization 3 ml inhalation Q4H PRN (Reason: Shortness of Breath. ) Rx Instructions: Take 3mLs by nebulization every 4 hours as needed acetaminophen 500 mg capsule 500 mg PO Q6H PRN (Reason: cHONIC BACK PAIN) Qty: 30 0RF cyanocobalamin (vitamin B-12) 1,000 mcg tablet 1,000 mcg PO DAILY Qty: 30 0RF Patient Comments: Take PO nightly at bedtime. Rx Instructions: Evening lidocaine-prilocaine 2.5-2.5 % Cream 60 g topical WITH DIALYSIS PRN (Reason: for dialysis) Qty: 60 0RF insulin aspart U-100 [Novolog U-100 Insulin aspart] 100 unit/mL solution See Rx Instructions subcut .COMPLEX Qty: 10 0RF Rx Instructions: SSI: 200-250=4 units, 251-300=8 units, 301-350=10 units, 351-400=12 units, greater than 400=12 units subcutaneously; tizanidine [Zanaflex] 2 mg capsule 2 mg PO Q8H PRN (Reason: muscle spasticity) cranberry 500 mg capsule 500 mg PO TID Rx Instructions: administer with meals nitroglycerin 0.4 mg tablet, sublingual 0.4 mg sublingual Q5M PRN (Reason: Chest Pain) Qty: 25 2RF Rx Instructions: do not exceed 3 doses per episode (DME) FreeStyle Robbi 3 Sensor Device See Rx Instructions .Route Qty: 1 0RF Rx Instructions: As directed Eliquis 5 mg tablet 5 mg PO BID Qty: 180 2RF dextromethorphan-guaifenesin [Mucinex DM] 60-1,200 mg tablet extended release 12 hr 1 tablet PO Q12H PRN (Reason: congestion) Patient Comments: Take 2 tablets by mouth BID as needed for congestion. (DME) pen needle, diabetic [BD Lindsay 2nd Gen Pen Needle] 32 gauge x 5/32 needle See Rx Instructions .ROUTE .COMPLEX Qty: 100 1RF Dose Instruction: USE TO INJECT ONCE DAILY Rx Instructions: USE TO INJECT ONCE DAILY simethicone [Gas-X Extra Strength] 125 mg capsule 250 mg PO DAILY PRN (Reason: abdominal distention) Qty: 20 0RF Rx Instructions: Adult 1?2 softgels as needed after meals and at bedtime; max 4 softgels/day docusate sodium 100 mg capsule 200 mg PO BID Patient Comments: Take 1 capsule by mouth two times daily as needed for constipation. rosuvastatin 10 mg tablet 10 mg PO DAILY Qty: 90 0RF Patient Comments: take PO nightly at bedtime. aripiprazole 2 mg tablet See Rx Instructions .ROUTE .COMPLEX Qty: 135 0RF Dose Instruction: TAKE 1&1/2 TABS BY MOUTH EVERYDAY AT BEDTIME Rx Instructions: TAKE 1&1/2 TABS BY MOUTH EVERYDAY AT BEDTIME sertraline 50 mg tablet 50 mg PO DAILY Qty: 90 1RF nystatin 100,000 unit/gram powder 1 applic topical BID Qty: 60 0RF Patient Comments: Take 4 times a day as need for fungal infection. Rx Instructions: coccyx, groin, and abdominal folds methylphenidate HCl 10 mg tablet 10 mg PO BIDWMEAL Qty: 60 0RF Rx Instructions: breakfast and lunch tramadol 50 mg tablet 50 mg PO QID PRN (Reason: pain) Qty: 50 0RF Changed metoprolol tartrate 25 mg tablet 37.5 mg PO BID Qty: 60 0RF insulin glargine [Lantus Solostar U-100 Insulin] 100 unit/mL (3 mL) insulin pen 25 unit subcut QAM Qty: 15 0RF Discontinued cefdinir 300 mg capsule 300 mg PO DAILY Rx Instructions: Last dose July 29,per paperwork doxycycline hyclate 100 mg capsule 100 mg PO Q12H Rx Instructions: Take for two days, last dose given July 29, 2025 in the morning. midodrine 10 mg tablet 10 mg PO BID Rx Instructions: Take 10mg 2 times a day on dialysis days (Tuesday, Tuesday, and Tuesday). First dose in the AM before dialysis, second dose to be given during dialysis. Xphozah 30 mg tablet 30 mg PO QPM Rx Instructions: administer with a meal acetaminophen 650 mg tablet extended release 650 mg PO Q4H PRN (Reason: GENERAL DISCOMFORT) All Day Allergy (cetirizine) 10 mg capsule 10 mg PO DAILY PRN (Reason: allergy symptoms) Qty: 90 0RF buspirone 5 mg tablet See Rx Instructions .ROUTE .COMPLEX Qty: 270 1RF Dose Instruction: 5 MG ORALLY THREE TIMES A DAY Rx Instructions: 5 MG ORALLY THREE TIMES A DAY furosemide [Lasix] 40 mg tablet 40 mg PO BID Patient Comments: Take 120mg BID on NON dialysis days (Tuesday, , Tuesday). Start July 30, 2025 Rx Instructions: Take on nondialysis Days No Action buspirone 10 mg tablet 10 mg PO TID Qty: 180 0RF Date of admission: 07/29/25 16:00 Primary Care Provider: Carl Maloney Admitting Provider: Quincy Wilkes Attending physician on admission: Malia Rabago Condition: Improved Quality VTE Prophylaxis VTE prophylaxis: pharmacologic ordered Hospitalist MIPS Heart Failure (Exclusion) Patient has history of Heart Transplant or Left Ventricular Assistive Device?: No IF YES, STOP HERE Heart Failure (Qualifier) Patient has current or prior documentation of LVEF less than or equal to 40%, or mod/servere depressed LVSF?: No IF NO, STOP HERE
[2025-08-16] MEDS: INFLUENZA VACCINE HIGH DOSE (>64) 180 MCG/0.5 ML SYRINGE IM (16:03)
== END 2025-08-16 18:45 | DRG 314 ==
LOC: ANHED 15:56 → ANHICU 16:47 → ANHIMU 08-02 18:02 → ANH2MED 08-06 12:47
PROVIDERS: Internal Medicine; Internal Medicine Nephrology; Student in an Organized Health Care Education/Training Program; Admitting Provider Internal Medicine; Emergency Provider Family Medicine; PCP Internal Medicine; Visit Provider Nurse Practitioner Acute Care
DX: I95.89 Other hypotension (principal); G93.41 Metabolic encephalopathy; J18.9 Pneumonia, unspecified organism; J96.01 Acute respiratory failure with hypoxia; N18.6 End stage renal disease; I13.2 Hypertensive heart and chronic kidney disease with heart failure and with stage 5 chronic kidney disease, or end stage renal disease; I50.32 Chronic diastolic (congestive) heart failure; D47.Z2 Castleman disease; E46 Unspecified protein-calorie malnutrition; E86.1 Hypovolemia; E11.22 Type 2 diabetes mellitus with diabetic chronic kidney disease; E78.5 Hyperlipidemia, unspecified; I48.91 Unspecified atrial fibrillation; N32.81 Overactive bladder; M81.0 Age-related osteoporosis without current pathological fracture; F03.90 Unspecified dementia, unspecified severity, without behavioral disturbance, psychotic disturbance, mood disturbance, and anxiety; N39.3 Stress incontinence (female) (male); E66.01 Morbid (severe) obesity due to excess calories; I35.0 Nonrheumatic aortic (valve) stenosis; E87.5 Hyperkalemia; I95.3 Hypotension of hemodialysis; D50.9 Iron deficiency anemia, unspecified; D63.1 Anemia in chronic kidney disease; Z23 Encounter for immunization; R50.9 Fever, unspecified; R19.7 Diarrhea, unspecified; G47.33 Obstructive sleep apnea (adult) (pediatric); Z85.3 Personal history of malignant neoplasm of breast; Z68.36 Body mass index [BMI] 36.0-36.9, adult; Z99.2 Dependence on renal dialysis; I25.2 Old myocardial infarction; Z86.718 Personal history of other venous thrombosis and embolism; Z87.19 Personal history of other diseases of the digestive system
CPT/HCPCS: 36415; 70450; 71045; 71046; 71250; 74176; 80048; 80053; 80069; 80202; 81001; 82607; 82746; 82948; 83540; 83550; 83605; 83735; 84100; 84145; 84146; 85025; 85027; 85610; 86581; 86738; 87040; 87493; 87641; 90471; 90662; 93005; 93308; 95816; 96361; 96365; 96366; 99285; A9270; C1751; G0008; G0257; J0616; J0696; J1630; J1644; J1815; J2405; J2470; J2543; J3373; J7030; J7040; P9047; Q5105